=== PATIENT | female | born 1940 | race Caucasian/White ===

== ENCOUNTER → 2017-11-16 14:15 | Outpatient (CLI) | payer MEDICARE, SELFPAY ==
[2017-11-03 15:59] VITALS: BP 158/78; BMI 34.2
--- NOTE | 2017-11-16 14:17 | CT_ITS ---
STUDY: CTA CHEST REASON FOR EXAM: Female, 77 years old. S/P CABG, NON-UNION STERNUM RADIATION DOSAGE (If Supplied By Facility): CTDIvol = ( 14.42 ) mGy, DLP = ( 624.86 ) mGycm TECHNIQUE: The examination was performed with the intravenous administration of 100 ml of Isovue 300 contrast material. Post-processing of the angiographic images was performed, with multiplanar reformation and 3D reconstruction. Individualized dose optimization techniques were used for this CT. COMPARISON: None. FINDINGS: There is no pneumothorax. Diffuse groundglass infiltrates are visualized. This may suggest restrictive airway disease. There is no demonstrated pleural abnormality. There are calcifications of the coronary arteries. Normal mediastinum. Normal hilar regions. Normal pulmonary arteries. There is atherosclerotic calcification of the aortic arch with tortuosity and elongation of the aortic arch and descending thoracic aorta. There are multi-level degenerative changes of the thoracic spine. The gallbladder is surgically absent. Non obstructive 1 to 2 mm left renal parenchymal stones. Multiple median sternotomy wires are noted consistent for cardiac surgery. There are degenerative changes of the shoulders. CT/CTA Chest W/WO Contrast IMPRESSION: Diffuse groundglass infiltrates are visualized. This may suggest restrictive airway disease. No demonstrated pulmonary embolism or arterial dissection. Electronically Signed: Jose Queen MD at 22:53 EST , Service support ,
[2017-11-16 14:36] LABS: CREATININE FINGERSTICK 0.9 mg/dL (0.55-1.02)
== END ==
PROVIDERS: Family Provider Family Medicine; PCP Family Medicine; Visit Provider Internal Medicine Cardiovascular Disease
DX: I25.10 Atherosclerotic heart disease of native coronary artery without angina pectoris (principal); Z95.1 Presence of aortocoronary bypass graft
CPT/HCPCS: 71275; Q9967

== ENCOUNTER → 2017-12-23 12:41 | Outpatient (CLI) | payer MEDICARE, SELFPAY ==
--- NOTE | 2017-12-23 15:14 | PFTCOMP ---
COMPLETE PULMONARY FUNCTION TEST INTERPRETATION Brief HPI: Patient is a 77 year old female, currently under the care of Dr. Melgar, who presents to [facility] for complete pulmonary function tests secondary to diagnosis of abnormal chest CT. Respiratory therapist reports good effort and marginal results. Interpretation: Forced expiration spirometry shows no large airways obstructive ventilatory defect with an FEV1 of 78 % predicted. There is no significant bronchodilator response by ATS criteria. Spirograms are of poor quality and plateau normally. Patient's postbronchodilator exhalation is only 2 seconds, likely underestimating FVC. The respiratory flow volume loop shows a normal pattern. Lung volumes by body plethysmography show a decreased total lung capacity at 3.61 L, 82 % predicted. All other lung volumes are within normal limits. It reportedly did have difficulty with the DLCO maneuver. Diffusion capacity by carbon monoxide is decreased at 35 % predicted. The airway resistance is normal. No previous pulmonary function tests were available for review. Impression: Mild restrictive ventilatory defect with reduction diffusing capacity out of proportion to level of restriction. No previous pulmonary function tests are available for review. Patient did have difficulty with diffusing capacity, so this may be underestimating real diffusion capacity.
--- NOTE | 2017-12-23 15:19 | PFTCOMP_ITS ---
COMPLETE PULMONARY FUNCTION TEST INTERPRETATION Brief HPI: Patient is a 77 year old female, currently under the care of Dr. Melgar , who presents to [facility] for complete pulmonary function tests secondary to diagnosis of abnormal chest CT. Respiratory therapist reports good effort and marginal results. Interpretation: Forced expiration spirometry shows no large airways obstructive ventilatory defect with an FEV1 of 78 % predicted. There is no significant bronchodilator response by ATS criteria. Spirograms are of poor quality and plateau normally. Patient's postbronchodilator exhalation is only 2 seconds, likely underestimating FVC. The respiratory flow volume loop shows a normal pattern. Lung volumes by body plethysmography show a decreased total lung capacity at 3.61 L, 82 % predicted. All other lung volumes are within normal limits. It reportedly did have difficulty with the DLCO maneuver. Diffusion capacity by carbon monoxide is decreased at 35 % predicted. The airway resistance is normal. No previous pulmonary function tests were available for review. Impression: Mild restrictive ventilatory defect with reduction diffusing capacity out of proportion to level of restriction. No previous pulmonary function tests are available for review. Patient did have difficulty with diffusing capacity, so this may be underestimating real diffusion capacity.
== END ==
PROVIDERS: Family Provider Family Medicine; PCP Family Medicine; Visit Provider Internal Medicine Critical Care Medicine
DX: R93.8 Abnormal findings on diagnostic imaging of other specified body structures (principal)
CPT/HCPCS: 94060; 94726; 94729

== ENCOUNTER → 2018-01-05 13:53 | Outpatient (CLI) | payer MEDICARE, SELFPAY ==
[2018-01-05 17:03] LABS: Rheumatoid Factor < 10.0 IU/mL (<15)
[2018-01-09 16:08] LABS: Cytoplasmic Ab (C-ANCA) <1:20 titer (Neg:<1:20)
[2018-01-10 11:07] LABS: CCP IgG Antibodies 16 units (0-19); Perinuclear Ab (P-ANCA) <1:20 titer (Neg:<1:20)
== END ==
PROVIDERS: Family Provider Family Medicine; PCP Family Medicine; Visit Provider Nurse Practitioner Acute Care
DX: J98.4 Other disorders of lung (principal)
CPT/HCPCS: 36415; 86200; 86256; 86431

== ENCOUNTER → 2018-02-24 16:41 | Outpatient (CLI) | payer MEDICARE, SELFPAY ==
--- NOTE | 2018-02-24 16:44 | CT_ITS ---
STUDY: CT CHEST WITH CONTRAST REASON FOR EXAM: Female, 77 years old. ground glass noted on prior RADIATION DOSAGE (If Supplied By Facility): CTDIvol = ( 19.44 ) mGy, DLP = ( 591.80 ) mGycm TECHNIQUE: Transaxial imaging was performed following intravenous administration of 100 ml of Isovue 300 contrast material. Individualized dose optimization techniques were used for this CT. COMPARISON: 11.16.17 FINDINGS: There are degenerative changes of the shoulders. The thyroid is heterogenous. It contains nodules. This should be further evaluated with ultrasound. This can be performed as an outpatient. Scattered bilateral ground glass densities suggest possible air trapping or restrictive airways disease. There is no demonstrated pleural abnormality. There are calcifications of the coronary arteries. There is borderline cardiomegaly. Normal mediastinum. Normal hilar regions. Normal enhanced pulmonary arteries. There is atherosclerotic tortuosity of the aortic arch and descending thoracic aorta. There are multi-level degenerative changes of the thoracic spine. The gallbladder is surgically absent. There is a hiatal hernia. Multiple median sternotomy wires are noted consistent for cardiac surgery. CT/Chest WITH Contrast IMPRESSION: Scattered bilateral ground glass densities suggest possible air trapping or restrictive airways disease. The appearance has slightly improved. Therefore, this may represent resolving pneumonitis. Electronically Signed: Jose Queen MD at 21:10 EDT , Service support ,
[2018-02-24 16:56] LABS: EGFR FINGERSTICK > 60.0000 mL/min (>60)
== END ==
PROVIDERS: Family Provider Family Medicine; PCP Family Medicine; Visit Provider Internal Medicine Critical Care Medicine
DX: R93.8 Abnormal findings on diagnostic imaging of other specified body structures (principal)
CPT/HCPCS: 71260; Q9967

== ENCOUNTER → 2018-04-25 15:03 | Outpatient (CLI) | payer MEDICARE, SELFPAY ==
[2018-04-25 18:05] LABS: Absolute Lymphocyte Count 4.28 X10^3/ul (0.83-4.51); Basophil# 0.05 X10^3/uL; Basophil% 0.5 % (0-1); Eosinophil# 0.09 X10^3/uL; Eosinophils% 0.8 % (0-5); Hematocrit 44.4 % (37-47); Hemoglobin 14.7 g/dl (12.0-15.0); Lymphocyte # 4.28 X10^3/ul (4.0); Lymphocyte % 39.4 % (19-41); Mean Corp Hgb Conc 33.1 g/gl (32-36); Mean Corpuscular Hgb 31.1 pg (27.0-32.0); Mean Corpuscular Volume 93.9 fL (81-99); Mean Platelet Vol. 10.2 fl (6.2-12.0); Monocyte# 0.47 X10^3/uL; Monocyte% 4.3 % (0-10); Neutrophil # 5.96 X10^3/uL (2.7-7.7); Neutrophil % 54.8 % (47-70); Platelet Count 310 K/mm3 (150-450); RBC Distribution Width CV 13.4 % (11.6-14.6); RBC Distribution Width SD 46.3 fl (35.1-43.9); Red Blood Count 4.73 M/mm3 (4.2-5.4); White Blood Count 10.9 K/mm3 (4.4-11.0)
[2018-04-25 18:16] LABS: POSITIVE COUNT NO; POSITIVE DIFFERENTIAL NO; POSITIVE MORPHOLOGY NO
[2018-04-25 18:24] LABS: ALB/GLOB Ratio 0.7 RATIO (0.9-2.4); AST(SGOT) 39 U/L (15-37); Alanine Aminotransfer ALT/SGPT 44 U/L (13-56); Albumin, Serum 3.4 g/dL (3.2-5.0); Alkaline Phosphatase 99 U/L (45-117); Anion Gap 9 (5-15); BUN 14 mg/dL (7-18); BUN/Creat Ratio 13.2 RATIO (10-20); Calcium,Total 9.4 mg/dL (8.5-10.1); Chloride 106 mmol/L (98-107); Creatinine, Serum 1.06 mg/dL (0.55-1.02); EST Glomerular Filtration Rate 54 mL/min (>60); Est Glom Filt Rate - Afr Amer 65 mL/min (>60); Globulin 4.6 g/dL (2.2-4.2); Glucose 164 mg/dL (74-106); Sodium Level 141 mmol/L (136-145)
[2018-05-01 14:07] LABS: HEPATITIS B SURFACE AG Negative (Negative); Hepatitis A AB, Total Negative (Negative); Hepatitis A IgM Antibody Negative (Negative); Hepatitis B Core AB IgM Negative (Negative); Hepatitis B Core Ab Total Negative (Negative); Hepatitis C Ab 0.1 s/co ratio (0.0-0.9); QNTFERON TB Ag Minus Nil Value 0.16 IU/mL (.); QNTFERON TB Ag Value 0.19 IU/mL (.); QNTFERON TB Mitogen Value > 10.00 IU/mL (.); QNTFERON TB Nil Value 0.03 IU/mL (.)
[2018-05-02 09:01] LABS: Hep B Surface Antibodies Non Reactive (.); QNTIFERON TB Gold Negative (Negative)
== END ==
PROVIDERS: Family Provider Family Medicine; PCP Family Medicine; Visit Provider Dermatology Pediatric Dermatology
DX: L40.0 Psoriasis vulgaris (principal); Z79.899 Other long term (current) drug therapy
CPT/HCPCS: 36415; 80053; 85025; 86480; 86704; 86705; 86706; 86708; 86709; 86803; 87340

== ENCOUNTER → 2019-01-09 | Outpatient (CLI) | payer MEDICARE, SELFPAY ==
[2018-12-29 14:28] VITALS: BMI 37.6
--- NOTE | 2019-01-09 18:25 | STRESSREP_ITS ---
Stress Test Report Date: 01-09-19 Procedure: Pharmacologic stress nuclear imaging study Indications: Chest pain; CAD; CABG Consent: Per the patient Procedure: The patient underwent pharmacologic (Regadenoson) evaluation with a peak heart rate of 87 beats per minute (60 %predicted maximal heart rate) and a peak blood pressure of 138/80 mmHg. The baseline ECG demonstrated normal sinus rhythm. The peak pharmacologic ECG demonstrated no obvious ECG changes. There were no cardiac dysrhythmias pretest, during pharmacologic infusion, or recovery. There was no complaint of chest discomfort during pharmacologic infusion or recovery. The examination was discontinued secondary to completion of protocol. Impression: 1. Pharmacologic (Regadenoson) evaluation 2. Peak pharmacologic ECG with no obvious ECG changes. 3. There were no cardiac dysrhythmias pretest, during pharmacologic infusion, or recovery. 4. Nuclear images pending Myocardial perfusion imaging study: Technique: The patient was injected with 14.6 millicuries of technetium 99m Cardiolite and subsequently rest SPECT Cardiolite nuclear imaging was obtained in the horizontal long, vertical long, and short axis views. The patient underwent pharmacologic (Regadenoson) evaluation with a peak heart rate of 87 beats per minute (60 % percent predicted maximal heart rate) and a peak blood pressure of 138/80 mmHg. The patient was injected with 44.7 millicuries of technetium 99m Cardiolite and subsequently stress SPECT Cardiolite nuclear imaging was obtained in the horizontal long, vertical long, and short axis views. A gated Cardiolite study at peak stress was obtained. Interpretation: Rest and stress SPECT Cardiolite nuclear imaging status post realignment, normalization, and attenuation correction demonstrate relative uniform tracer uptake in myocardial perfusion appearing within normal limits. There is end systolic thickening and brightening. The gated Cardiolite study demonstrates myocardial thickening and inward wall motion. The reported LVEF is 51 %. Impression: 1. Rest and stress SPECT Cardiolite nuclear imaging demonstrate relative uniform tracer uptake and myocardial perfusion appearing within normal limits. 2. The gated Cardiolite study reports an LVEF of 51 %. This note was generated with [employer] software. It may contain incorrect words, spelling, and punctuation that were not noted in checking the note before signing.
== END | disposition home or self-care (01) ==
LOC: CVS 06:45
PROVIDERS: Family Provider Family Medicine; PCP Family Medicine; Referring Provider Nurse Practitioner Family; Visit Provider Nurse Practitioner Family
DX: I25.10 Atherosclerotic heart disease of native coronary artery without angina pectoris (principal); R07.9 Chest pain, unspecified; Z95.1 Presence of aortocoronary bypass graft
CPT/HCPCS: 78452; 93017; A9500; A4216; J2785

== ENCOUNTER → 2021-01-06 06:14 | Outpatient (CLI) | payer MEDICARE, SELFPAY ==
[2020-12-29 13:33] VITALS: BMI 36.4
--- NOTE | 2021-01-06 09:17 | STRESSREP ---
Stress Test Report Date: ??2020 Procedure: Pharmacologic stress nuclear imaging study Indications: CAD; CABG Consent: Per the patient Procedure: The patient underwent pharmacologic (Regadenoson 0.4mg ) evaluation with a peak heart rate of 75 beats per minute (52%predicted maximal heart rate) and a peak blood pressure of 126/78 mmHg. The baseline ECG demonstrated sinus bradycardia. The peak pharmacologic ECG demonstrated no obvious ECG changes. There were no cardiac dysrhythmias pretest, during pharmacologic infusion, or recovery. There was no complaint of chest discomfort during pharmacologic infusion or recovery. The examination was discontinued secondary to completion of protocol. Impression: 1. Pharmacologic (Regadenoson) evaluation 2. Peak pharmacologic ECG with with no obvious ECG changes. 3. There were no cardiac dysrhythmias pretest, during pharmacologic infusion, or recovery. 4. Nuclear images pending Myocardial perfusion imaging study: Technique: The patient was injected with 10.0 millicuries of technetium 99m Cardiolite and subsequently rest SPECT Cardiolite nuclear imaging was obtained in the horizontal long, vertical long, and short axis views. The patient underwent pharmacologic (Regadenoson) evaluation with a peak heart rate of 75 beats per minute (52% percent predicted maximal heart rate) and a peak blood pressure of 126/78 mmHg. The patient was injected with 30.0 millicuries of technetium 99m Cardiolite and subsequently stress SPECT Cardiolite nuclear imaging was obtained in the horizontal long, vertical long, and short axis views. A gated Cardiolite study at peak stress was obtained. Interpretation: Rest and stress SPECT Cardiolite nuclear imaging status post realignment, normalization, and attenuation correction demonstrate status post stress a small area of diminished myocardial perfusion/tracer uptake in the distal lateral/lateral apical segments. There are similar type findings on the stress polar map images. There is end systolic thickening and brightening. The gated Cardiolite study demonstrates myocardial thickening and inward wall motion. The reported LVEF is 75%. Impression: 1. Jeferson stress by current nuclear imaging demonstrate myocardial perfusion changes concerning for an area of stress-induced myocardial ischemia in portions of the distal lateral/lateral apical segments. 2. The gated Cardiolite study reports an LVEF of 75%. This note was generated with [employer] water systemsation software. It may contain incorrect words, spelling, and punctuation that were not noted in checking the note before signing.
--- NOTE | 2021-01-13 12:08 | RAD_ITS ---
STUDY: X-RAY CHEST REASON FOR EXAM: Female, 80 years old. Chest pain/pressure TECHNIQUE: PA and lateral views of the chest. COMPARISON: None. FINDINGS: The lungs are clear and expanded. There is no demonstrated pleural abnormality. Sternal cerclage wires and vascular clips are present from a prior sternotomy and coronary artery bypass graft procedure (CABG). Normal mediastinum and omar. Normal visualized pulmonary arteries. There is atherosclerotic calcification of the aortic arch with tortuosity. Normal visualized thoracic spine. Normal visualized ribs, clavicles, and shoulders. There is no demonstrated abnormality of the visualized soft tissue structures of the upper abdomen. RAD/Chest PA and Lateral IMPRESSION: No acute pulmonary process Electronically Signed: Merrick Parada MD at 13:01 EDT , Service support ,
== END ==
PROVIDERS: PCP Family Medicine; Referring Provider Internal Medicine Cardiovascular Disease; Visit Provider Internal Medicine Cardiovascular Disease
DX: I25.10 Atherosclerotic heart disease of native coronary artery without angina pectoris (principal); Z95.1 Presence of aortocoronary bypass graft
CPT/HCPCS: 71046; 78452; 93017; A9500; A4216; J2785

== ENCOUNTER → 2021-01-13 15:11 | Outpatient (CLI) | payer MEDICARE, SELFPAY ==
[2020-12-29 13:33] VITALS: BMI 36.4
[2021-01-13 13:07] LABS: Hematocrit 43.2 % (37-47); Hemoglobin 13.6 g/dL (12.0-15.0); Mean Corp Hgb Conc 31.5 g/dL (32-36); Mean Corpuscular Hgb 28.9 pg (27.0-32.0); Mean Corpuscular Volume 91.9 fL (81-99); Mean Platelet Vol. 10.4 fl (6.2-12.0); Platelet Count 262 K/mm3 (150-450); RBC Distribution Width CV 12.6 % (11.6-14.6); RBC Distribution Width SD 42.6 fl (35.1-43.9); White Blood Count 7.2 K/mm3 (4.4-11.0)
[2021-01-13 13:16] LABS: International Normalized Ratio 3.1; Prothrombin Time (Protime)PT. 31.3 SECONDS (11.7-14.9)
[2021-01-13 13:17] LABS: Partial Thromboplast Time 36.3 Seconds (24.1-36.2)
[2021-01-13 13:35] LABS: Anion Gap 4 (5-15); BUN 12 mg/dL (7-18); Calcium,Total 9.1 mg/dL (8.5-10.1); Chloride 105 mmol/L (98-107); Creatinine, Serum 0.92 mg/dL (0.55-1.02); EST Glomerular Filtration Rate 63 mL/min (>60); Est Glom Filt Rate - Afr Amer 76 mL/min (>60); Glucose 167 mg/dL (74-106); Potassium 3.9 mmol/L (3.5-5.1); Sodium Level 139 mmol/L (136-145)
== END ==
PROVIDERS: PCP Family Medicine; Visit Provider Internal Medicine Cardiovascular Disease
DX: Z01.812 Encounter for preprocedural laboratory examination (principal); I25.10 Atherosclerotic heart disease of native coronary artery without angina pectoris; I48.0 Paroxysmal atrial fibrillation; I10 Essential (primary) hypertension; E78.5 Hyperlipidemia, unspecified; R07.9 Chest pain, unspecified; R94.39 Abnormal result of other cardiovascular function study; Z95.1 Presence of aortocoronary bypass graft
CPT/HCPCS: 36415; 80048; 85027; 85610; 85730

== ENCOUNTER 2021-01-19 18:42 | Observation (INO) | payer MEDICARE, SELFPAY ==
[2021-01-19 07:02] VITALS: BMI 36.3
[2021-01-19 18:43] VITALS: BP 201/55; PULSE 67; RESP 26; TEMP 36.4; O2SAT 94; BMI 37.1
--- NOTE | 2021-01-19 18:55 | ED.VIS.GEN ---
History of Present Illness Chief Complaint: Chest Pain Informant: Patient Narrative: 80-year-old feeling presenting with chest pain. She states it started this morning. It has been intermittent over the course of the day. She states that is left-sided and feels like pressure. Patient has history of CABG, DVT/PE, atrial fibrillation, hypertension, diabetes type 2, obesity, cardiac stents, hyperlipidemia. Patient states that she was just seen by Dr. Hopkins for an outpatient stress test which she states was abnormal. She states he was scheduled for cardiac catheterization tomorrow but forgot to that she was supposed to stop her Coumadin. Patient states she was not doing anything truly exertional today but still experiencing chest pain. - Past Medical History (1) Paroxysmal atrial fibrillation Status: Chronic (2) Essential hypertension Status: Chronic (3) Restrictive lung disease Status: Acute (4) Atherosclerosis of coronary artery of redding heart without angina pectoris Status: Chronic Comment: JAY to LAD, SVG to OM2 and sequetially to diagonal, SVG to PDA 06/01/17 (5) H/O coronary artery bypass surgery Status: Chronic Comment: JAY to LAD, SVG to OM2 and sequetially to diagonal, SVG to PDA 06/01/17 Past Medical History - Allergies and Home Meds Allergies/Adverse Reactions: Allergies insulin isophane (NPH) Allergy (Severe, Verified 01/19/21 18:48) heart burn latex Allergy (Verified 01/19/21 22:14) Unknown only allergic when already sick sitagliptin phosphate [From Januvia] Allergy (Verified 01/19/21 18:48) Unknown insulin degludec [From Xultophy 100/3.6] Adverse Reaction (Mild, Verified 01/19/21 18:48) Nausea liraglutide [From Xultophy 100/3.6] Adverse Reaction (Mild, Verified 01/19/21 18:48) Nausea atorvastatin [From Lipitor] Adverse Reaction (Unknown, Verified 01/19/21 18:48) Unknown codeine Adverse Reaction (Unknown, Verified 01/19/21 18:48) Unknown tizanidine Adverse Reaction (Unknown, Verified 01/19/21 18:48) Unknown Prior records reviewed: Yes Past Medical History: - - Viewed in problem list Surgical History: coronary bypass surgery - x 06/2017., - - Bladder stimulator. Lives: Alone Smoking Status: Never smoker Alcohol: None Drugs: None - Family History Maternal Family History: Family History (Last Reviewed 12/29/20 @ 13:39 by Lisa Shaw) Father CAD (coronary artery disease) Mother CAD (coronary artery disease) Brother CAD (coronary artery disease) Family History: Reports: - - Alcoholism. Paternal Family History: Family History (Last Reviewed 12/29/20 @ 13:39 by Lisa Shaw) Father CAD (coronary artery disease) Mother CAD (coronary artery disease) Brother CAD (coronary artery disease) Family History: Reports: - - Alcoholism. Review of Systems General: Denies: Chills, Fever, Sweats Eyes: Denies: Visual changes - bilaterally, Diplopia ENT: Denies: Rhinorrhea, Sore throat Cardiovascular: Reports: Chest pain Respiratory: Denies: Dyspnea, Cough, Dyspnea on exertion Gastrointestinal: Denies: Abdominal pain, Nausea, Vomiting, Diarrhea, Melena, Hematochezia Genitourinary: Denies: Dysuria, Hematuria, Frequency Musculoskeletal: Denies: Back pain, Extremity Pain Skin: Denies: Rash, Wounds Neurological: Denies: Headache, Weakness, Numbness Psych: Denies: Depression, Anxiety, Suicidal thoughts, Suicidal ideations, -, - Physical Exam Vital Signs/Narrative: Vital Signs Temp Pulse Resp BP Pulse Ox 01/19/21 18:43 97.6 F L 67 26 H 201/55 H 94 General: Obese, No Acute Distress Head: Normocephalic, Atraumatic Eyes: Perrl, EOMI ENT: Moist mucous membranes, No rhinorrhea Cardiovascular: Regular rate, Regular rhythm Respiratory: No distress, CTA bilaterally Abdomen: Soft, Nontender, Nondistended Back: Nontender, Normal Inspection Extremities: Nontender. Negative for: Calf Tenderness Neurological: Alert, Oriented x3, Cranial nerves II-XII grossly intact Psychological: Normal affect, Normal Mood Diagnostic/Tx/Re-eval Clinical Impression(s) from Imaging Studies Chest X-Ray 01/19/21 19:27 IMPRESSION: No acute disease Electronically Signed: Mundo Vargas MD at 20:54 EDT , Service support , Laboratory Data 04/01/19/21 01/19/21 19:03 19:03 19:03 WBC 6.7 RBC 4.52 Hgb 13.4 Hct 40.9 MCV 90.5 MCH 29.6 MCHC 32.8 RDW Std Deviation 41.3 RDW Coeff of Sky 12.6 Plt Count 269 MPV 10.3 Immature Gran % (Auto) 0.300 Neut % (Auto) 53.3 Lymph % (Auto) 38.8 [place] % (Auto) 5.3 Eos % (Auto) 1.5 Baso % (Auto) 0.8 Absolute Neuts (auto) 3.6 Absolute Lymphs (auto) 2.58 Nucleated RBC % 0 PT 26.6 H INR 2.5 Sodium 138 Potassium 4.0 Chloride 104 Carbon Dioxide 32.0 Anion Gap 2 L BUN 16 Creatinine 1.17 H Estim Creat Clear Calc 31.34 Est GFR (MDRD) Af Amer 58 L Est GFR (MDRD) Non-Af 48 L BUN/Creatinine Ratio 13.7 Glucose 368 H Calcium 9.0 Troponin I < 0.015 - Medical Decision Making 80-year-old female presenting with chest pain which has been present for most of the day. She states it is intermittent. EKG performed on arrival shows a sinus rhythm at 71 bpm with nonspecific T wave abnormalities as interpreted by myself. Patient's chest x-ray shows no acute cardiopulmonary process as interpreted by myself and radiology does agree. Lab work is ultimately unremarkable. Troponin is negative. INR is therapeutic I reviewed the patient's medical record and she does have an area of reversible ischemia from recent outpatient stress test. Given this I feel the patient needs to be admitted. Patient was discussed with the hospitalist and was admitted for chest pain. Impression: 1. Chest pain 2. History of reversible ischemia on stress test ED Disposition - Plan for ED Patient: Disposition: [facility]
--- NOTE | 2021-01-19 18:59 | EKG12_ITS ---
Test Reason : CP Blood Pressure : / mmHG Vent. Rate : 071 BPM Atrial Rate : 071 BPM P-R Int : 198 ms QRS Dur : 086 ms QT Int : 418 ms P-R-T Axes : 064 051 075 degrees QTc Int : 454 ms Normal sinus rhythm Nonspecific T wave abnormality Abnormal ECG Confirmed by ELIZABETH ALY, MADAI ([id number]), film editor supervisor EVIN LAMA ([id number]) on 01/21/2021 1:04:40 PM Referred By: LAURA Confirmed By:MADAI JOHNSON MD
[2021-01-19] MEDS: Aspirin 81 MG TAB.CHEW 243 MG PO (19:11)
[2021-01-19 19:20] LABS: Absolute Lymphocyte Count 2.58 X10^3/uL (0.83-4.51); Absolute Neutrophil Count 3.6 X10^3/uL (2.0-7.7); Basophil# 0.05 X10^3/uL; Basophil% 0.8 % (0-1); Eosinophils% 1.5 % (0-5); Hematocrit 40.9 % (37-47); Hemoglobin 13.4 g/dL (12.0-15.0); Lymphocyte # 2.58 X10^3/ul (0.83-4.51); Lymphocyte % 38.8 % (19-41); Mean Corp Hgb Conc 32.8 g/dL (32-36); Mean Corpuscular Hgb 29.6 pg (27.0-32.0); Mean Corpuscular Volume 90.5 fL (81-99); Mean Platelet Vol. 10.3 fl (6.2-12.0); Monocyte# 0.35 X10^3/uL; Monocyte% 5.3 % (0-10); NRBC Flagged by Analyzer 0 % (0-5); Neutrophil # 3.55 X10^3/uL (2.7-7.7); Neutrophil % 53.3 % (47-70); Platelet Count 269 K/mm3 (150-450); RBC Distribution Width CV 12.6 % (11.6-14.6); RBC Distribution Width SD 41.3 fl (35.1-43.9); Red Blood Count 4.52 M/mm3 (4.2-5.4); White Blood Count 6.7 K/mm3 (4.4-11.0)
--- NOTE | 2021-01-19 19:27 | RAD_ITS ---
STUDY: X-RAY CHEST REASON FOR EXAM: Female, 80 years old. chest pain TECHNIQUE: Single frontal view of the chest. COMPARISON: 01/13/2021 FINDINGS: Sternotomy wires and plates. The lungs are clear and expanded. There is no demonstrated pleural abnormality. Normal size heart. Normal mediastinum and omar. Normal visualized pulmonary arteries. Normal visualized aortic arch and descending thoracic aorta. Normal visualized thoracic spine. Normal visualized ribs, clavicles, and shoulders. There is no demonstrated abnormality of the visualized soft tissue structures of the upper abdomen. RAD/Chest 1 View (Portable) IMPRESSION: No acute disease Electronically Signed: Mundo Vargas MD at 20:54 EDT , Service support ,
[2021-01-19 19:34] LABS: Anion Gap 2 (5-15); BUN 16 mg/dL (7-18); BUN/Creat Ratio 13.7 RATIO (10-20); Chloride 104 mmol/L (98-107); Creatinine, Serum 1.17 mg/dL (0.55-1.02); EST Glomerular Filtration Rate 48 mL/min (>60); Est Glom Filt Rate - Afr Amer 58 mL/min (>60); Estimated Creatinine Clearance 31.34 ml/min; Glucose 368 mg/dL (74-106); Sodium Level 138 mmol/L (136-145)
[2021-01-19 20:14] VITALS: BP 178/77; PULSE 69; RESP 17; O2SAT 97
[2021-01-19 21:29] LABS: International Normalized Ratio 2.5; Prothrombin Time (Protime)PT. 26.6 SECONDS (11.7-14.9)
--- NOTE | 2021-01-19 21:32 | PCM.HP.STD ---
Problem List (1) Chest pain Status: Acute (2) Abnormal stress test Status: Acute (3) Essential hypertension Status: Chronic (4) Atherosclerosis of coronary artery of [place] heart without angina pectoris Status: Chronic Qualifiers: Coronary Disease-Associated Artery/Lesion type: [place] artery Qualified Code(s): I25.10 - Atherosclerotic heart disease of [place] coronary artery without angina pectoris Comment: JAY to LAD, SVG to OM2 and sequetially to diagonal, SVG to PDA 06/01/17 (5) H/O coronary artery bypass surgery Status: Chronic Comment: JAY to LAD, SVG to OM2 and sequetially to diagonal, SVG to PDA 06/01/17 (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 Patient was initially scheduled to have a cardiac catheterization due to an abnormal stress test tomorrow however due to continuation of her Coumadin this procedure was delayed until next week Tuesday as an outpatient. This morning patient developed substernal left sided chest pain that was nonexertional that radiated to left shoulder. This pain has since subsided and her initial troponin was negative from the emergency room. INR results are pending at this time she will be admitted to the progressive care unit and cardiac markers will be cycled and Dr. Hopkins will be consulted to decide on timing for her cardiac catheterization. Past Medical History Past Medical History (Chronic Problems): Chronic Problems (Last Updated 01/09/21 @ 13:53 by Lisa Shaw) Paroxysmal atrial fibrillation (Chronic) Essential hypertension (Chronic) Abnormal chest CT (Chronic) Atherosclerosis of coronary artery of [place] heart without angina pectoris (Chronic) JAY to LAD, SVG to OM2 and sequetially to diagonal, SVG to PDA 06/01/17 H/O coronary artery bypass surgery (Chronic ~06/01/17) JAY to LAD, SVG to OM2 and sequetially to diagonal, SVG to PDA 06/01/17 [facility] (current) use of anticoagulants (Chronic) Diabetes mellitus (Chronic) MARIVEL (obstructive sleep apnea) (Chronic) Hyperlipidemia (Chronic) Pulmonary embolism (Chronic) GERD (gastroesophageal reflux disease) (Chronic) Morbid obesity (Chronic) Medical History: Medical History (Last Updated 01/09/21 @ 13:53 by Lisa Shaw) Chest pain (Acute) R07.9 Abnormal stress test (Acute) R94.39 Paroxysmal atrial fibrillation (Chronic) I48.0 Essential hypertension (Chronic) I10 [address] (Chronic) R93.8 Atherosclerosis of coronary artery of [place] heart without angina pectoris (Chronic) I25.10 JAY to LAD, SVG to OM2 and sequetially to diagonal, SVG to PDA 06/01/17 [facility] (current) use of anticoagulants (Chronic) Z79.01 Diabetes mellitus (Chronic) E11.9 MARIVEL (obstructive sleep apnea) (Chronic) G47.33 Hyperlipidemia (Chronic) E78.5 Pulmonary embolism (Chronic) I26.99 GERD (gastroesophageal reflux disease) (Chronic) K21.9 Morbid obesity (Chronic) E66.01 Bradycardia (Acute) R00.1 Acute kidney injury N17.9 Anxiety F41.9 Depression F32.9 Dysphagia R13.10 Osteoarthritis M19.90 Stroke I63.9 Right Frontal Infarction Acute delirium (Resolved) R41.0 Benzodiazepine withdrawal (Inactive) F13.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 Allergies insulin isophane (NPH) Allergy (Severe, Verified 01/19/21 18:48) heart burn latex Allergy (Verified 01/19/21 18:48) Unknown sitagliptin phosphate [From Januvia] Allergy (Verified 01/19/21 18:48) Unknown insulin degludec [From Xultophy 100/3.6] Adverse Reaction (Mild, Verified 01/19/21 18:48) Nausea liraglutide [From Xultophy 100/3.6] Adverse Reaction (Mild, Verified 01/19/21 18:48) Nausea atorvastatin [From Lipitor] Adverse Reaction (Unknown, Verified 01/19/21 18:48) Unknown codeine Adverse Reaction (Unknown, Verified 01/19/21 18:48) Unknown tizanidine Adverse Reaction (Unknown, Verified 01/19/21 18:48) Unknown Home Medications: Ambulatory Orders Medication Instructions Recorded aspirin 81 mg tablet,delayed 81 mg PO QDAY 11/03/17 release lisinopril 10 mg tablet 5 mg PO QDAY tab 11/03/17 warfarin 2 mg tablet 2.5 mg PO DAILY@1700 11/03/17 atorvastatin 40 mg tablet 40 mg PO QDAY #30 tab 03/02/18 metoprolol succinate 50 mg 50 mg PO QDAY tab 06/08/18 tablet,extended release 24 hr levothyroxine 50 mcg tablet 50 mcg PO DAILY 12/29/18 ropinirole 0.5 mg tablet 0.5 mg PO TID tab 12/29/18 vilazodone 40 mg tablet 40 mg PO DAILY 12/29/18 alprazolam 0.5 mg tablet 0.5 mg PO TID tab 11/23/19 insulin degludec 200 unit/mL (3 60 unit SC DAILY 25 Days #7.5 ml 11/23/19 mL) subcutaneous pen trazodone 50 mg tablet 100 mg PO QHS tab 05/22/20 hydrocodone 5 mg-acetaminophen 325 1 tablet PO QHS PRN 12/29/20 mg tablet montelukast 10 mg tablet 10 mg PO DAILY 12/29/20 prednisolone acetate 1 % eye 1 drp OPHTHALMIC 6XD 12/29/20 drops,suspension clopidogrel 75 mg tablet 75 mg PO DAILY #30 tablet 01/13/21 Surgical History: Surgical History (Last Updated 12/29/20 @ 13:50 by Lisa Shaw) H/O coronary artery bypass surgery (Chronic) Onset Date: ~06/01/17 Z95.1 JAY to LAD, SVG to OM2 and sequetially to diagonal, SVG to PDA 06/01/17 History of bilateral cataract extraction Z98.41, Z98.42 History of cholecystectomy Z98.890, Z90.49 History of knee surgery Z98.890 History of total hysterectomy Z98.890, Z90.710 Surgical History: coronary bypass surgery - x , 06/2017., - - Bladder stimulator. 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 Paternal Family History: Family History (Last Reviewed 12/29/20 @ 13:39 by Lisa Shaw) Father CAD (coronary artery disease) Mother CAD (coronary artery disease) Brother CAD (coronary artery disease) History Items: - - Alcoholism. Review of Systems Constitutional: Denies: Chills, Fever, Weight Change HEENT: Denies: Head Aches, Sinus Congestion, Sinus Drainage Cardiovascular: Reports: Chest Pain. Denies: Palpitations Respiratory: Reports: Shortness of breath at rest. Denies: Cough, Sputum production Gastrointestinal: Denies: Abdominal Pain, Nausea, Vomiting Genitourinary: Denies: Dysuria Musculoskeletal: Denies: Joint Pain, Joint Tenderness Skin: Denies: Rash, Wounds Neurological: Denies: Numbness, Tingling, Focal weakness Psychiatric: Reports: Anxiety. Denies: Depression, Homicidal Ideations, Suicidal Ideations Hematologic/ Lymphatic: Denies: Easy Bruising, Easy Bleeding VTE Information - Inpt Only VTE Present on Admission: No VTE Mechan Device Prophylaxis: None VTE Pharm Prophylaxis ordered?: No Patient Problems: Active and Suspected Problems (Last Updated 01/09/21 @ 13:53 by Lisa Shaw) Restrictive lung disease (Acute) - Physical Exam Vitals/I&O's: Vital Signs Temp Pulse Resp BP Pulse Ox 97.6 F L 69 17 178/77 H 97 01/19/21 18:43 01/19/21 20:14 01/19/21 20:14 01/19/21 20:14 01/19/21 20:14 Oxygen Flow Rate (L/min) 93 Oxygen Delivery Method Room Air Weight: 203 lb 4.259 oz Body Mass Index (BMI) 37.1 Finger Stick Blood Glucose 180 General: Alert, Oriented x3, Cooperative HEENT: Atraumatic, Normocephalic Neck: Supple Lungs: Clear to auscultation, Normal air movement Cardiovascular: Regular rate, Normal S1, Normal S2, No murmurs Abdomen: Bowel Sounds Present, Soft, Non Tender, Obese Extremities: No edema Skin: No rashes Musculoskeletal: No Tenderness to Palpation of Joints or Extremities Neurological: Neuro grossly intact Psych/Mental Status: Normal Affect, Appropriate Laboratory Results 01/19/21 19:03: WBC 6.7, RBC 4.52, Hgb 13.4, Hct 40.9, MCV 90.5, MCH 29.6, MCHC 32.8, RDW Std Deviation 41.3, RDW Coeff of Sky 12.6, Plt Count 269, MPV 10.3, Immature Gran % (Auto) 0.300, Neut % (Auto) 53.3, Lymph % (Auto) 38.8, [place] % (Auto) 5.3, Eos % (Auto) 1.5, Baso % (Auto) 0.8, Absolute Neuts (auto) 3.6, Absolute Lymphs (auto) 2.58, Nucleated RBC % 0 01/19/21 19:03: Sodium 138, Potassium 4.0, Chloride 104, Carbon Dioxide 32.0, Anion Gap 2 L, BUN 16, Creatinine 1.17 H, Estim Creat Clear Calc 31.34, Est GFR (MDRD) Af Amer 58 L, Est GFR (MDRD) Non-Af 48 L, BUN/Creatinine Ratio 13.7, Glucose 368 H, Calcium 9.0, Troponin I < 0.015 01/19/21 19:03: PT 26.6 H, INR 2.5 Assessment/Plan All Active Problems (Last Updated 01/09/21 @ 13:53 by Lisa Shaw) Chest pain (Acute) Abnormal stress test (Acute) Restrictive lung disease (Acute) Bradycardia (Acute) Acute delirium (Resolved) Chronic Problems (Last Updated 01/09/21 @ 13:53 by Lisa Shaw) Paroxysmal atrial fibrillation (Chronic) Essential hypertension (Chronic) Abnormal chest CT (Chronic) Atherosclerosis of coronary artery of [place] heart without angina pectoris (Chronic) JAY to LAD, SVG to OM2 and sequetially to diagonal, SVG to PDA 06/01/17 H/O coronary artery bypass surgery (Chronic ~06/01/17) JAY to LAD, SVG to OM2 and sequetially to diagonal, SVG to PDA 06/01/17 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 Chest pain\recent abnormal stress test?admit patient to progressive care unit for observation?make patient n.p.o. at midnight repeat INR in the morning, consult Dr. Hopkins for consideration of cardiac catheterization expediently depending on cardiac enzymes throughout the night. We will order the patient morphine, oxygen, nitroglycerin, aspirin per routine protocol 2. Hypertension?continue home medications, add hydralazine as needed 3. Diabetes?continue home medications recent A1c was 7.3% 4. Obstructive sleep apnea?okay to use home CPAP if patient wishes. 5. Hyperlipidemia?continue statin 6. GERD?continue antacid medication 7. DVT prophylaxis?we will hold due to anticipated procedure for now OBSV E&M: [id number] Initial observation care L2
[2021-01-19 21:36] VITALS: BP 186/74; PULSE 62; RESP 17; TEMP 36.7; O2SAT 96
[2021-01-19 22:00] VITALS: BP 227/80; PULSE 56; RESP 16; TEMP 36.2; O2SAT 100; BMI 36.4; BMI 36.5
[2021-01-19] MEDS: 0.9% Normal Saline 1,000 ML 75 ML IV (22:42)
[2021-01-19 22:55] VITALS: PULSE 65
[2021-01-19 22:55] LABS: Bedside Glucose 173 mg/dL (70-110)
--- NOTE | 2021-01-19 22:59 | EKG12_ITS ---
Test Reason : ADM EKG Blood Pressure : / mmHG Vent. Rate : 057 BPM Atrial Rate : 057 BPM P-R Int : 208 ms QRS Dur : 086 ms QT Int : 460 ms P-R-T Axes : 081 046 102 degrees QTc Int : 447 ms Sinus bradycardia with Premature atrial complexes Nonspecific ST and T wave abnormality Abnormal ECG Confirmed by ELIZABETH ALY, MADAI ([id number]), associate editor SUDHA RODRIGUEZ ([id number]) on 01/22/2021 2:07:27 PM Referred By: GERALDINE Confirmed By:MADAI JOHNSON MD
[2021-01-19] MEDS: Pramipexole Di-HCl 0.25 MG Tablet PO (23:27)
[2021-01-19] MEDS: ALPRAZolam 0.5 MG Tablet PO (23:27)
[2021-01-19] MEDS: Atorvastatin Calcium 40 MG Tablet PO (23:27)
[2021-01-19] MEDS: traZODone 100 MG Tablet PO (23:27)
[2021-01-19 23:31] VITALS: BP 158/66; PULSE 63; RESP 18; TEMP 36.7; O2SAT 97
[2021-01-20] VITALS (21 sets, daily range): BP systolic 95–221; BP diastolic 41–152; PULSE 51–129; RESP 18; TEMP 36.2–37.4; O2SAT 94–98
[2021-01-20 05:34] LABS: Absolute Lymphocyte Count 5.65 X10^3/uL (0.83-4.51); Absolute Neutrophil Count 4.2 X10^3/uL (2.0-7.7); Basophil# 0.06 X10^3/uL; Basophil% 0.6 % (0-1); Eosinophil# 0.16 X10^3/uL; Eosinophils% 1.5 % (0-5); Hematocrit 40.8 % (37-47); Hemoglobin 13.1 g/dL (12.0-15.0); Lymphocyte # 5.65 X10^3/ul (0.83-4.51); Lymphocyte % 53.2 % (19-41); Mean Corp Hgb Conc 32.1 g/dL (32-36); Mean Corpuscular Hgb 29.7 pg (27.0-32.0); Mean Corpuscular Volume 92.5 fL (81-99); Mean Platelet Vol. 9.9 fl (6.2-12.0); Monocyte# 0.52 X10^3/uL; Monocyte% 4.9 % (0-10); NRBC Flagged by Analyzer 0 % (0-5); Neutrophil # 4.22 X10^3/uL (2.7-7.7); Neutrophil % 39.6 % (47-70); POSITIVE DIFFERENTIAL YES; Platelet Count 302 K/mm3 (150-450); RBC Distribution Width CV 12.4 % (11.6-14.6); RBC Distribution Width SD 42.5 fl (35.1-43.9); Red Blood Count 4.41 M/mm3 (4.2-5.4); White Blood Count 10.6 K/mm3 (4.4-11.0)
[2021-01-20 05:42] LABS: International Normalized Ratio 2.7; Prothrombin Time (Protime)PT. 27.9 SECONDS (11.7-14.9)
[2021-01-20 05:55] LABS: Differential Indicated SCAN CRITERIA MET
[2021-01-20] MEDS: ALPRAZolam 0.5 MG Tablet PO ×3 (06:13→21:33)
[2021-01-20] MEDS: Levothyroxine 50 MCG Tablet PO (06:13)
[2021-01-20] MEDS: Pramipexole Di-HCl 0.25 MG Tablet PO ×3 (06:13→21:33)
[2021-01-20 06:40] LABS: Bedside Glucose 73 mg/dL (70-110)
[2021-01-20 07:13] LABS: ALB/GLOB Ratio 0.7 RATIO (0.9-2.4); AST(SGOT) 22 U/L (15-37); Alanine Aminotransfer ALT/SGPT 25 U/L (13-56); Albumin, Serum 2.8 g/dL (3.2-5.0); Alkaline Phosphatase 122 U/L (45-117); Anion Gap 4 (5-15); BUN 13 mg/dL (7-18); BUN/Creat Ratio 15.8 RATIO (10-20); Calcium,Total 8.5 mg/dL (8.5-10.1); Chloride 106 mmol/L (98-107); Creatinine, Serum 0.82 mg/dL (0.55-1.02); EST Glomerular Filtration Rate 72 mL/min (>60); Est Glom Filt Rate - Afr Amer 87 mL/min (>60); Estimated Creatinine Clearance 44.72 ml/min; Globulin 4.1 g/dL (2.2-4.2); Glucose 75 mg/dL (74-106); Magnesium 1.8 mg/dL (1.6-2.6); Phosphorus 2.9 mg/dL (2.5-4.9); Potassium 3.2 mmol/L (3.5-5.1); Protein, Total 6.9 g/dL (6.4-8.2); Sodium Level 140 mmol/L (136-145); Thyroid Stim Hormone (TSH) 4.17 uIU/mL (0.358-3.74)
[2021-01-20] MEDS: Aspirin E.C. 81 MG Tablet PO (08:45)
[2021-01-20] MEDS: Potassium Chloride Oral Tablet 20 MEQ 40 MEQ PO (08:45)
[2021-01-20] MEDS: Montelukast 10 MG Tablet PO (09:24)
[2021-01-20] MEDS: Lisinopril 5 MG Tablet PO (09:25)
[2021-01-20] MEDS: VILAZODONE HYDROCHLORIDE 10 MG TABLET 40 MG PO (09:25)
[2021-01-20] MEDS: Clopidogrel Bisulfate 75 MG Tablet PO (09:25)
[2021-01-20] MEDS: prednisoLONE eye drops (5 mL) 1 DROP OPTH.BTL 1 DRP OPHTHALMIC ×2 (09:26→13:08)
[2021-01-20] MEDS: 0.9% Normal Saline 1,000 ML 75 ML IV (11:29)
--- NOTE | 2021-01-20 11:47 | CHAPLAIN ---
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
[2021-01-20 12:00] LABS: Bedside Glucose 77 mg/dL (70-110)
[2021-01-20 12:44] LABS: International Normalized Ratio 1.5; Prothrombin Time (Protime)PT. 17.8 SECONDS (11.7-14.9)
--- NOTE | 2021-01-20 13:02 | PCM.CONS.C ---
Problem List (1) Chest pain Status: Acute (2) Atherosclerosis of coronary artery of [place] heart without angina pectoris Status: Chronic Qualifiers: Coronary Disease-Associated Artery/Lesion type: [place] artery Qualified Code(s): I25.10 - Atherosclerotic heart disease of [place] coronary artery without angina pectoris Comment: JAY to LAD, SVG to OM2 and sequetially to diagonal, SVG to PDA 06/01/17 (3) H/O coronary artery bypass surgery Status: Chronic Comment: JAY to LAD, SVG to OM2 and sequetially to diagonal, SVG to PDA 06/01/17 (4) Paroxysmal atrial fibrillation Status: Acute (5) Hyperlipidemia Status: Chronic Qualifiers: Hyperlipidemia type: unspecified Qualified Code(s): E78.5 - Hyperlipidemia, unspecified (6) Essential hypertension Status: Chronic (7) Pulmonary embolism Status: Chronic Qualifiers: Pulmonary embolism type: unspecified (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 Reason for Consult Date of Consultation: 01/20/21 History of Present Illness: The patient is a 80 year old white female with a history of coronary artery disease status post CABG in May 2017 with an JAY to LAD, SVG sequential graft to diagonal branch and OM 2, and SVG to PDA, postoperative atrial fibrillation, hypertension, hyperlipidemia, diabetes mellitus, and obstructive sleep apnea without treatment who has been undergoing noninvasive evaluation including a pharmacologic stress nuclear imaging study which raise concerns of myocardial ischemia who was referred for outpatient evaluation with diagnostic cardiac catheterization once her anticoagulation status was adjusted who presented to the [facility] emergency department for recurrent chest discomfort/pressure and is now being referred for continued cardiovascular evaluation including diagnostic cardiac catheterization. She states she had her left-sided chest pressure. Again, as noted in the outpatient setting she is not sure this is related to her crocheting and her musculoskeletal movement or whether it is related to her heart. She denies any acute respiratory issues. There is been no ongoing nausea, emesis, or diaphoresis. She has had no near syncope or syncope. She has been undergoing evaluation from a noninvasive standpoint. Included a pharmacologic stress nuclear imaging study performed on 01-06-2021. The results are noted below. During her hospitalization her troponin I level has been negative. Her INR was elevated. She was evaluated by internal medicine and treated with vitamin K. Her INR level has decreased. [] Past Medical History Allergies/Adverse Reactions: Allergies insulin isophane (NPH) Allergy (Severe, Verified 01/19/21 18:48) heart burn latex Allergy (Verified 01/19/21 22:14) Unknown only allergic when already sick sitagliptin phosphate [From Januvia] Allergy (Verified 01/19/21 18:48) Unknown insulin degludec [From CloudStrategiesltophy 100/3.6] Adverse Reaction (Mild, Verified 01/19/21 18:48) Nausea liraglutide [From Xultophy 100/3.6] Adverse Reaction (Mild, Verified 01/19/21 18:48) Nausea atorvastatin [From Lipitor] Adverse Reaction (Unknown, Verified 01/19/21 18:48) Unknown codeine Adverse Reaction (Unknown, Verified 01/19/21 18:48) Unknown tizanidine Adverse Reaction (Unknown, Verified 01/19/21 18:48) Unknown Home Medications: Ambulatory Orders Medication Instructions Recorded aspirin 81 mg tablet,delayed 81 mg PO QDAY 11/03/17 release lisinopril 10 mg tablet 5 mg PO QDAY tab 11/03/17 warfarin 2 mg tablet 2.5 mg PO DAILY@1700 11/03/17 atorvastatin 40 mg tablet 40 mg PO QDAY #30 tab 03/02/18 metoprolol succinate 50 mg 50 mg PO QDAY tab 06/08/18 tablet,extended release 24 hr levothyroxine 50 mcg tablet 50 mcg PO DAILY 12/29/18 ropinirole 0.5 mg tablet 0.5 mg PO TID tab 12/29/18 vilazodone 40 mg tablet 40 mg PO DAILY 12/29/18 alprazolam 0.5 mg tablet 0.5 mg PO TID tab 11/23/19 insulin degludec 200 unit/mL (3 50 unit SC QHS 25 Days #7.5 ml 11/23/19 mL) subcutaneous pen trazodone 50 mg tablet 100 mg PO QHS tab 05/22/20 hydrocodone 5 mg-acetaminophen 325 1 tablet PO QHS PRN 12/29/20 mg tablet montelukast 10 mg tablet 10 mg PO DAILY 12/29/20 prednisolone acetate 1 % eye 1 drp OPHTHALMIC 6XD 12/29/20 drops,suspension clopidogrel 75 mg tablet 75 mg PO DAILY #30 tablet 01/13/21 Past Medical History (Chronic Problems): Chronic Problems (Last Updated 01/09/21 @ 13:53 by Lisa Shaw) Paroxysmal atrial fibrillation (Chronic) Essential hypertension (Chronic) Abnormal chest CT (Chronic) Atherosclerosis of coronary artery of [place] heart without angina pectoris (Chronic) JAY to LAD, SVG to OM2 and sequetially to diagonal, SVG to PDA 06/01/17 H/O coronary artery bypass surgery (Chronic ~06/01/17) JAY to LAD, SVG to OM2 and sequetially to diagonal, SVG to PDA 06/01/17 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 Paternal Family History: Family History (Last Reviewed 12/29/20 @ 13:39 by Lisa Shaw) Father CAD (coronary artery disease) Mother CAD (coronary artery disease) Brother CAD (coronary artery disease) History Items: - - Alcoholism. Lives: Alone Smoking Status: Former smoker Alcohol: None Drugs: None Review of Systems - Review of Systems General: Denies: Fever, Night Sweats, Fatigue Cardiovascular: Reports: Chest Discomfort, Chest Discomfort at Rest. Denies: Shortness of Breath, Orthopnea, PND, Peripheral Edema, Palpitations, Lightheadedness, Dizziness, Near Syncope, Syncope Respiratory: Denies: Cough, Sputum Production, Hemoptysis Gastrointestinal: Denies: Hematemesis, Hematochezia, Melena Genitourinary: Denies: Dysuria, Hematuria Skin: Denies: Rash Subjectve: This is a 80-year-old white female who who appears to be resting comfortably at the moment in no acute distress. Objective: Vital Signs Temp Pulse Resp BP Pulse Ox 97.8 F 55 L 18 186/58 H 96 01/20/21 09:20 01/20/21 09:20 01/20/21 09:20 01/20/21 09:20 01/20/21 09:28 Oxygen Flow Rate (L/min) 93 Oxygen Delivery Method Room Air Weight: 199 lb 4.766 oz Body Mass Index (BMI) 36.4 Finger Stick Blood Glucose 180 Intake and Output for Last 24 Hours 01/18/21 01/19/21 01/20/21 23:59 23:59 23:59 Intake Total 200 / 200 1059.75 / 1059.75 Balance 200 / 200 1059.75 / 1059.75 General: Awake, Alert, Oriented x 3, Cooperative, No Acute Distress HEENT: Atraumatic, Normocephalic, PERRL, EOMI, Sclera Non Icteric Neck: Supple, Good ROM Lungs: Clear to auscultation Cardiovascular: Regular Rhythm, Normal S1, Normal S2 Vascular: No Carotid Bruits, Normal Femoral Pulses, Normal Radial Pulses Abdomen: Bowel Sounds Present, Soft Extremities: No edema Neurological: No Focal Motor or Sensory Deficit Psych/Mental Status: Appropriate 01/19/21 19:03: WBC 6.7, RBC 4.52, Hgb 13.4, Hct 40.9, MCV 90.5, MCH 29.6, MCHC 32.8, Plt Count 269, MPV 10.3, Immature Gran % (Auto) 0.300, Neut % (Auto) 53.3, Lymph % (Auto) 38.8, Cottle % (Auto) 5.3, Eos % (Auto) 1.5, Baso % (Auto) 0.8, Absolute Neuts (auto) 3.6, Nucleated RBC % 0 01/19/21 19:03: Sodium 138, Potassium 4.0, Chloride 104, Carbon Dioxide 32.0, Anion Gap 2 L, BUN 16, Creatinine 1.17 H, Est GFR (MDRD) Af Amer 58 L, Est GFR (MDRD) Non-Af 48 L, BUN/Creatinine Ratio 13.7, Glucose 368 H, Calcium 9.0, Troponin I < 0.015 01/19/21 19:03: PT 26.6 H, INR 2.5 01/19/21 22:25: Troponin I < 0.015 01/20/21 00:50: Troponin I < 0.015 01/20/21 05:00: WBC 10.6, RBC 4.41, Hgb 13.1, Hct 40.8, MCV 92.5, MCH 29.7, MCHC 32.1, Plt Count 302, MPV 9.9, Immature Gran % (Auto) 0.200, Neut % (Auto) 39.6 L, Lymph % (Auto) 53.2 H, Cottle % (Auto) 4.9, Eos % (Auto) 1.5, Baso % (Auto) 0.6, Absolute Neuts (auto) 4.2, Nucleated RBC % 0 01/20/21 05:00: Sodium 140, Potassium 3.2 L, Chloride 106, Carbon Dioxide 30.0, Anion Gap 4 L, BUN 13, Creatinine 0.82, Est GFR (MDRD) Af Amer 87, Est GFR (MDRD) Non-Af 72, BUN/Creatinine Ratio 15.8, Glucose 75, Calcium 8.5, Phosphorus 2.9, Magnesium 1.8, Total Bilirubin 0.30 01/20/21 05:00: PT 27.9 H, INR 2.7 01/20/21 12:24: PT 17.8 H, INR 1.5 Rhythm: Sinus rhythm EKG: Sinus rhythm; nonspecific ST/T wave abnormality E[facility]ogram from [facility] on May 30, 2017 LV ejection fraction of 65%. Transthoracic echocardiogram: 09-06-17 Left ventricle: LVEF reported 65% Stress Test Report Date: 01-09-19 Procedure: Pharmacologic stress nuclear imaging study Indications: Chest pain; CAD; CABG Consent: Per the patient Procedure: The patient underwent pharmacologic (Regadenoson) evaluation with a peak heart rate of 87 beats per minute (60 %predicted maximal heart rate) and a peak blood pressure of 138/80 mmHg. The baseline ECG demonstrated normal sinus rhythm. The peak pharmacologic ECG demonstrated no obvious ECG changes. There were no cardiac dysrhythmias pretest, during pharmacologic infusion, or recovery. There was no complaint of chest discomfort during pharmacologic infusion or recovery. The examination was discontinued secondary to completion of protocol. Impression: 1. Pharmacologic (Regadenoson) evaluation 2. Peak pharmacologic ECG with no obvious ECG changes. 3. There were no cardiac dysrhythmias pretest, during pharmacologic infusion, or recovery. 4. Nuclear images pending Myocardial perfusion imaging study: Technique: The patient was injected with 14.6 millicuries of technetium 99m Cardiolite and subsequently rest SPECT Cardiolite nuclear imaging was obtained in the horizontal long, vertical long, and short axis views. The patient underwent pharmacologic (Regadenoson) evaluation with a peak heart rate of 87 beats per minute (60 % percent predicted maximal heart rate) and a peak blood pressure of 138/80 mmHg. The patient was injected with 44.7 millicuries of technetium 99m Cardiolite and subsequently stress SPECT Cardiolite nuclear imaging was obtained in the horizontal long, vertical long, and short axis views. A gated Cardiolite study at peak stress was obtained. Interpretation: Rest and stress SPECT Cardiolite nuclear imaging status post realignment, normalization, and attenuation correction demonstrate relative uniform tracer uptake in myocardial perfusion appearing within normal limits. There is end systolic thickening and brightening. The gated Cardiolite study demonstrates myocardial thickening and inward wall motion. The reported LVEF is 51 %. Impression: 1. Rest and stress SPECT Cardiolite nuclear imaging demonstrate relative uniform tracer uptake and myocardial perfusion appearing within normal limits. 2. The gated Cardiolite study reports an LVEF of 51 %. Stress Test Report Date: Procedure: Pharmacologic stress nuclear imaging study Indications: CAD; CABG Consent: Per the patient Procedure: The patient underwent pharmacologic (Regadenoson 0.4mg ) evaluation with a peak heart rate of 75 beats per minute (52%predicted maximal heart rate) and a peak blood pressure of 126/78 mmHg. The baseline ECG demonstrated sinus bradycardia. The peak pharmacologic ECG demonstrated no obvious ECG changes. There were no cardiac dysrhythmias pretest, during pharmacologic infusion, or recovery. There was no complaint of chest discomfort during pharmacologic infusion or recovery. The examination was discontinued secondary to completion of protocol. Impression: 1. Pharmacologic (Regadenoson) evaluation 2. Peak pharmacologic ECG with with no obvious ECG changes. 3. There were no cardiac dysrhythmias pretest, during pharmacologic infusion, or recovery. 4. Nuclear images pending Myocardial perfusion imaging study: Technique: The patient was injected with 10.0 millicuries of technetium 99m Cardiolite and subsequently rest SPECT Cardiolite nuclear imaging was obtained in the horizontal long, vertical long, and short axis views. The patient underwent pharmacologic (Regadenoson) evaluation with a peak heart rate of 75 beats per minute (52% percent predicted maximal heart rate) and a peak blood pressure of 126/78 mmHg. The patient was injected with 30.0 millicuries of technetium 99m Cardiolite and subsequently stress SPECT Cardiolite nuclear imaging was obtained in the horizontal long, vertical long, and short axis views. A gated Cardiolite study at peak stress was obtained. Interpretation: Rest and stress SPECT Cardiolite nuclear imaging status post realignment, normalization, and attenuation correction demonstrate status post stress a small area of diminished myocardial perfusion/tracer uptake in the distal lateral/lateral apical segments. There are similar type findings on the stress polar map images. There is end systolic thickening and brightening. The gated Cardiolite study demonstrates myocardial thickening and inward wall motion. The reported LVEF is 75%. Impression: 1. Jeferson stress by current nuclear imaging demonstrate myocardial perfusion changes concerning for an area of stress-induced myocardial ischemia in portions of the distal lateral/lateral apical segments. 2. The gated Cardiolite study reports an LVEF of 75%. Cardiac Cath: Heart catheterization on May 27, 2017 LV ejection fraction of 70?75%, LAD with proximal 80% stenosis and 90% mid stenosis, first diagonal with ostial 90% stenosis, LCx with mid 80% stenosis, first OM with 50% stenosis, and mid RCA with 80% stenosis. She underwent bypass surgery for this. CT Surgery: May, JAY to LAD, SVG sequential graft to diagonal branch and OM 2, and SVG to PDA CXR: Preliminary evaluation: Post open heart surgery changes: No acute cardiopulmonary disease process appreciated: Please see official report Assessment/Plan 1. Chest pain The patient presents back with chest pain concerning for angina pectoris. She has a cardiovascular disease history. She has undergone diagnostic cardiac catheterization in the past. This led to CABG. She now has a pharmacologic stress nuclear imaging study considered abnormal. She is now referred for further evaluation with repeat diagnostic cardiac catheterization. The procedure and risk of been discussed with her. She was agreeable to this approach. 2. CAD status post CABG Again she has a history of underlying CAD. This led to CABG. She has been on medical management. She now has concerning symptoms for angina pectoris. She has an abnormal pharmacologic stress nuclear imaging study. She will be considered for further evaluation with diagnostic cardiac catheterization. 3. Paroxysmal atrial fibrillation At the moment she remains in sinus rhythm. She will continue medical management with adjustment as needed. 4. Hyperlipidemia She will continue risk factor evaluation and care. 5. Hypertension She will continue medical management with adjustment as needed. 6. Pulmonary embolism She has a history of PE. She has been on anticoagulant therapy. Comment: The patient's case has been discussed patient and Dr. Maria. This note was generated using a voice recognition system and there may be incorrect words, spelling or punctuation that were not noted when reviewing the office note prior to saving. Procedure Criteria Procedure Type: Elective COVID Risk Discussion: The surgeon/proceduralist and patient have discussed in detail the risk of exposure to and/or potential harm posed by the COVID-19 virus with having a surgery/procedure at this time versus the risk of delaying the surgery/procedure. It is not possible to know either the risk of delaying the surgery or procedure or chance of getting an infection with perfect accuracy, but a joint decision was made between the patient and the surgeon/proceduralist to proceed at this time with the scheduled surgery/procedure as indicated on the consent form.
--- NOTE | 2021-01-20 13:07 | CASEMGMT ---
According to the [facility] website, the following are in-network tertiary facilities: [facility], [place], [facility], [facility], and . Zachary VALLES CM
[2021-01-20] MEDS: Dextrose 50%-Water 25 GM/50 ML DISP.SYRIN IV (13:11)
[2021-01-20] MEDS: 0.9% Saline Lock 10 ML Syringe IV ×4 (13:11→19:01)
[2021-01-20 13:21] LABS: Bedside Glucose 74 mg/dL (70-110)
--- NOTE | 2021-01-20 13:30 | NURSING ---
This RN called report to HAI Carrillo in senior laboratory technician.
--- NOTE | 2021-01-20 16:13 | CL.D_ITS ---
Patient Name: FRANK GARCÍA Study Date: 01/20/2021 Performing: Markel Hopkins MD Ht: 62 inches 157 cm : 1940 Wt: 198.7 lbs 90 kg Age: 80 Gender: female BSA: 1.9 PROCEDURE(S) PERFORMED FC59-GZI/COR/LV/CABG DC11-AO ROOT ANGIO WITH HEART CATH CLINICAL PROFILE AND INDICATIONS Indications: Worsening Angina, Suspected CAD Heart Failure: None Stress/Imaging Date: 01/06/2021 Angina Classification Anginal Classification w/in 2 Weeks: CCS III CAD Presentations: Unstable angina. CONCLUSIONS Elevated Left Ventricular End Diastolic Pressure Normal LV size, wall motion,and systolic function LVEF: by LV gram 65 % [place] Multivessel CAD JAY to LAD: patent SVG to DX: patent with sequential portion to the OM being absent SVG to RPDA: occluded RECOMMENDATIONS Risk factor modification Medical therapy DESCRIPTION OF PROCEDURE The patient arrived to the procedure lab. The risks and benefits of the procedure as well as a full d escription of our services here and current unavailability of surgical backup were fully explained to the patient and/or their significant other prior to the catheterization. The Timeout was completed, verifying the correct patient and procedure. The patient's procedural site was prepped and draped in the usual fashion. Local anesthetic was given subcutaneously to right groin region with Lidocaine 2%. Using a modified Seldinger technique, arterial access was obtained via the right femoral artery, a 4 Fr sheath was inserted Left Coronary Artery selective angiography was performed in multiple views us ing a 4 Fr. JL5 catheter. Right Coronary Artery selective angiography was then performed in multiple views using a 4 Fr. 3DRC catheter. Saphenous Vein graft to the OM 2 and Diag selective angiography wa s performed in multiple views using a 4 Fr. JR4 catheter. Left internal mammary artery graft to the LAD selective angiography was performed in multiple views using a 4 Fr. JR4 catheter. Le ft internal mammary artery graft to the LAD selective angiography was performed in multiple views usi ng a 4 Fr. IM catheter. Saphenous Vein graft to the RPDA selective angiography was performed in multi ple views using a 4 Fr. RCB catheter. Left Ventriculography was performed in TOTH projection using a 4 Fr. Pigtail catheter. LV to AO pullback pressures were then recorded. Ascending (root) aorta selecti ve angiography was then performed in single view. Ascending (root) aorta selective angiography was th en performed in single view.The arterial sheath was pulled and manual compression applied until hemos tasis is achieved. CORONARY ANGIOGRAPHY DOMINANCE: Right Dominant LEFT HEART ASSESSMENT Left Ventricular Ejection Fraction: by LV Gram 65 % Normal LV wall motion Elevated Left Ventricular End Diastolic Pressure LVEDP: 27 mmHg LEFT MAIN: Moderate calcification, Mild luminal irregularities LEFT ANTERIOR DESCENDING ARTERY: PROX LAD: Moderate calcification, 50 - 75 % Stenosis MID LAD: fills from antegrade flow and JAY graft flow with no angiographically significant appearing disease distal to the graft attachment DIAGONAL 1: Proximal - is occluded with the remainder of the vessel filling from SVG graft flow with no angiographically significant appearing disease distal to the graft attachment CIRCUMFLEX ARTERY: PROX CIRC: Moderate calcification DISTAL CIRC: small caliber vessel: 50 - 75 % Stenosis OM 1: Proximal - Mild luminal irregularities RIGHT CORONARY ARTERY: Mild luminal irregularities PROX RCA: Mild calcification MID RCA: 25 % Stenosis GRAFTS: JAY graft to the Mid LAD is patent Saphenous Vein graft to the 1st Diagonal is patent with the sequential portion to the OM being absent Saphenous Vein graft to the RPDA is totally occluded AORTIC ROOT: Angiographically normal COMPLICATIONS No Complications PROCEDURE MEDICATIONS Versed 1 mg IV Fentanyl 50 mcg IV Fentanyl 50 mcg IV Versed 1 mg IV Fentanyl 50 mcg IV Oxygen: 2 L/min via nasal cannula Nitro Tab 0.40 mg PO 01/20/2021 15:05:20 Nitro Tab 0.4 mg PO 01/20/2021 15:12:24 SUMMARY OF HEMODYNAMIC DATA Time AIR REST ECG 13:44:11 AO 202/89 (133) SA 14:11:39 AO 153/89 (122) 14:17:20 LV 228/-3, 32 14:53:14 LV 219/-4, 27 14:53:20 LV 225/15, 37 14:54:53 LVp 233/28, 42 14:55:02 AOp 231/93 (150) 14:55:07 Signed By Markel Hopkins MD On 01/20/2021 4:12:20 PM Markel Hopkins MD
--- NOTE | 2021-01-20 16:28 | PN_ITS ---
Patient Problems: Active and Suspected Problems (Last Updated 01/20/21 @ 16:23 by Lisa Shaw) Chest pain (Acute) Abnormal stress test (Acute) Restrictive lung disease (Acute) Subjective: Vanessa today, I talked with cardiology about her care. She underwent a heart catheterization today which showed no evidence of occlusive coronary disease. Patient had some confusion after the catheterization probably related to medication, she will remain in the hospital and be reevaluated tomorrow. - Physical Exam Vitals/I&O's: Vital Signs Temp Pulse Resp BP Pulse Ox 97.8 F 100 18 95/41 L 98 01/20/21 16:00 01/20/21 16:00 01/20/21 16:00 01/20/21 16:00 01/20/21 16:00 Oxygen Flow Rate (L/min) 2 Oxygen Delivery Method Nasal Cannula Weight: 90.4 kg Body Mass Index (BMI) 36.4 Finger Stick Blood Glucose 180 Intake and Output for Last 24 Hours 01/18/21 01/19/21 01/20/21 23:59 23:59 23:59 Intake Total 200 / 200 1059.75 / 1059.75 Balance 200 / 200 1059.75 / 1059.75 General: Alert, Oriented x3, Cooperative, No apparent distress, Well developed HEENT: Atraumatic, PERRLA, EOMI, Normocephalic Oral: Moist Mucosa Neck: Supple, No JVD, Trachea Midline, Thyroid Normal Size and Texture Lungs: Clear to auscultation, Normal air movement, No rhonchi, No wheeze Cardiovascular: Regular rate, Regular Rhythm, Normal S1, Normal S2, No murmurs, PMI Normal Abdomen: Bowel Sounds Present, Soft, Non Tender, Non-Distended Extremities: No clubbing, No cyanosis, No edema, Capillary Refill Less than 3 Seconds Skin: No rashes, No breakdown Musculoskeletal: No Tenderness to Palpation of Joints or Extremities Neurological: Cranial nerves II-XII grossly intact, Neuro grossly intact, Sensory exam intact to light touch and pain, Coordination normal Psych/Mental Status: Normal Affect, Appropriate, Alert and oriented to time, place, person, mood and affect Laboratory Results 01/19/21 19:03: WBC 6.7, RBC 4.52, Hgb 13.4, Hct 40.9, MCV 90.5, MCH 29.6, MCHC 32.8, RDW Std Deviation 41.3, RDW Coeff of Sky 12.6, Plt Count 269, MPV 10.3, Immature Gran % (Auto) 0.300, Neut % (Auto) 53.3, Lymph % (Auto) 38.8, [place] % (Auto) 5.3, Eos % (Auto) 1.5, Baso % (Auto) 0.8, Absolute Neuts (auto) 3.6, Absolute Lymphs (auto) 2.58, Nucleated RBC % 0 01/19/21 19:03: Sodium 138, Potassium 4.0, Chloride 104, Carbon Dioxide 32.0, Anion Gap 2 L, BUN 16, Creatinine 1.17 H, Estim Creat Clear Calc 31.34, Est GFR (MDRD) Af Amer 58 L, Est GFR (MDRD) Non-Af 48 L, BUN/Creatinine Ratio 13.7, Glucose 368 H, Calcium 9.0, Troponin I < 0.015 01/19/21 19:03: PT 26.6 H, INR 2.5 01/19/21 22:25: Troponin I < 0.015 01/19/21 22:40: POC Glucose 173 H 01/20/21 00:50: Troponin I < 0.015 01/20/21 05:00: WBC 10.6, RBC 4.41, Hgb 13.1, Hct 40.8, MCV 92.5, MCH 29.7, MCHC 32.1, RDW Std Deviation 42.5, RDW Coeff of Sky 12.4, Plt Count 302, MPV 9.9, Immature Gran % (Auto) 0.200, Neut % (Auto) 39.6 L, Lymph % (Auto) 53.2 H, [place] % (Auto) 4.9, Eos % (Auto) 1.5, Baso % (Auto) 0.6, Absolute Neuts (auto) 4.2, Absolute Lymphs (auto) 5.65 H, Nucleated RBC % 0 01/20/21 05:00: Sodium 140, Potassium 3.2 L, Chloride 106, Carbon Dioxide 30.0, Anion Gap 4 L, BUN 13, Creatinine 0.82, Estim Creat Clear Calc 44.72, Est GFR (MDRD) Af Amer 87, Est GFR (MDRD) Non-Af 72, BUN/Creatinine Ratio 15.8, Glucose 75, Calcium 8.5, Phosphorus 2.9, Magnesium 1.8, Total Bilirubin 0.30, AST 22, ALT 25, Alkaline Phosphatase 122 H, Total Protein 6.9, Albumin 2.8 L, Globulin 4.1, Albumin/Globulin Ratio 0.7 L, TSH 4.17 H 01/20/21 05:00: PT 27.9 H, INR 2.7 01/20/21 06:12: POC Glucose 73 01/20/21 11:28: POC Glucose 77 01/20/21 12:24: PT 17.8 H, INR 1.5 01/20/21 13:10: POC Glucose 74 Current Medications Alprazolam (Alprazolam 0.5 Mg Tablet) 0.5 mg PO TID [facility] Last Admin: 01/20/21 13:07 Dose: 0.5 mg Documented by: Aspirin (Aspirin E.C. 81 Mg Tablet) 81 mg PO DAILYCM [facility] Last Admin: 01/20/21 08:45 Dose: 81 mg Documented by: Atorvastatin Calcium (Atorvastatin Calcium 40 Mg Tablet) 40 mg PO QHS [facility] Last Admin: 01/19/21 23:27 Dose: 40 mg Documented by: Clopidogrel Bisulfate (Clopidogrel Bisulfate 75 Mg Tablet) 75 mg PO DAILY [facility] Last Admin: 01/20/21 09:25 Dose: 75 mg Documented by: Dextrose (Dextrose 50%-Water 25 Gm/50 Ml Disp.Syrin) 0 gm IV X1 PRN; Protocol PRN Reason: Hypoglycemia Last Admin: 01/20/21 13:11 Dose: 12.5 gm Documented by: Glucagon (Glucagon 1 Mg/Ml Syringe) 1 mg IM .X1 PRN PRN Reason: Hypoglycemia Heparin Sodium (Beef Lung) (Heparin Lock 500 Unit/5 Ml In 10 Ml Syringe) 500 unit IV UD PRN PRN Reason: HEPARIN FLUSH Sodium Chloride () 1,000 mls @ 75 mls/hr IV .[id number] [facility] Last Admin: 01/20/21 11:29 Dose: 75 mls/hr Documented by: Sodium Chloride () 1,000 mls @ 0 mls/hr IV .Q0M [facility] Insulin Glargine (Insulin Glargine 100 Units/Ml Pen) 50 units SC QHS [facility] Last Admin: 01/19/21 23:26 Dose: 50 units Documented by: Labetalol HCl (Labetalol (Prefilled) 20 Mg/4 Ml) 5 mg IV X1 PRN PRN Reason: SBP > 160 prior to sheath pull Stop: 01/22/21 15:30 Levothyroxine Sodium (Levothyroxine 50 Mcg Tablet) 50 mcg PO DAILY@0600 [facility] Last Admin: 01/20/21 06:13 Dose: 50 mcg Documented by: Lisinopril (Lisinopril 5 Mg Tablet) 5 mg PO DAILY [facility] Last Admin: 01/20/21 09:25 Dose: 5 mg Documented by: Metoprolol Succinate (Metoprolol(Xl)Succ 50 Mg Tablet) 50 mg PO DAILY [facility] Last Admin: 01/20/21 11:48 Dose: Not Given Documented by: Montelukast Sodium (Montelukast 10 Mg Tablet) 10 mg PO DAILY [facility] Last Admin: 01/20/21 09:24 Dose: 10 mg Documented by: Morphine Sulfate (Morphine 2 Mg/Ml Syringe) 2 mg IV Q3H PRN PRN PRN Reason: Pain Score 6-10 Nitroglycerin (Nitroglycerin (Inpatient Use) 0.4 Mg Tab.Subl) 0.4 mg SL Q5M PRN PRN Reason: CARDIAC/CHEST PAIN Pramipexole Dihydrochloride (Pramipexole Di-Hcl 0.25 Mg Tablet) 0.25 mg PO TID [facility] Last Admin: 01/20/21 13:08 Dose: 0.25 mg Documented by: Prednisolone Acetate (Prednisolone Eye Drops (5 Ml) 1 Drop Opth.Btl) 1 drp OPHTHALMIC Q4H [facility] Last Admin: 01/20/21 13:08 Dose: 1 drp Documented by: Sodium Chloride (0.9% Saline Lock 10 Ml Syringe) 10 - 40 ml IV UD PRN PRN Reason: SALINE FLUSH Last Admin: 01/20/21 13:11 Dose: 10 ml Documented by: Trazodone HCl (Trazodone 100 Mg Tablet) 100 mg PO QHS [facility] Last Admin: 01/19/21 23:27 Dose: 100 mg Documented by: Vilazodone HCl (Vilazodone Hydrochloride 10 Mg Tablet) 40 mg PO DAILY [facility] Last Admin: 01/20/21 09:25 Dose: 40 mg Documented by: Medical Necessity - Tobacco Use Smoking Status: Former smoker Assessment/Plan All Active Problems (Last Updated 01/20/21 @ 16:23 by Lisa Shaw) Chest pain (Acute) Abnormal stress test (Acute) Restrictive lung disease (Acute) Bradycardia (Acute) Acute delirium (Resolved) #1 musculoskeletal chest pain-again patient will be observed overnight, she may be stable for discharge tomorrow. #2 atherosclerotic heart disease #3 encephalopathy probably secondary to medication reaction, patient will be observed #4 paroxysmal atrial fibrillation-patient is currently off Coumadin #5 type 2 diabetes #6 obstructive sleep apnea #7 hyperlipidemia #8 essential hypertension OBSV E&M: 27457 Subsequent observation care L3
[2021-01-20 16:55] LABS: Bedside Glucose 98 mg/dL (70-110)
[2021-01-20] MEDS: Metoprolol Tartrate 5 MG/5 ML Vial IV ×2 (18:15→23:03)
[2021-01-20] MEDS: Haloperidol Lactate 5 MG/ML Vial 1 MG IV (18:36)
[2021-01-20] MEDS: Haloperidol Lactate 5 MG/ML Vial IV (19:00)
[2021-01-20] MEDS: traZODone 100 MG Tablet PO (21:32)
[2021-01-20] MEDS: Acetaminophen 325 MG Tablet 650 MG PO (21:33)
[2021-01-20] MEDS: Atorvastatin Calcium 40 MG Tablet PO (21:33)
[2021-01-20 22:15] LABS: Bedside Glucose 149 mg/dL (70-110)
[2021-01-21] VITALS (15 sets, daily range): BP systolic 125–179; BP diastolic 61–95; PULSE 64–102; RESP 16–18; TEMP 36.2–37.5; O2SAT 94–98
[2021-01-21] MEDS: 0.9% Normal Saline 1,000 ML 75 ML IV ×2 (05:36→18:03)
[2021-01-21] MEDS: Levothyroxine 50 MCG Tablet PO (05:37)
[2021-01-21] MEDS: Metoprolol Tartrate 5 MG/5 ML Vial IV ×3 (05:37→17:54)
[2021-01-21] MEDS: Pramipexole Di-HCl 0.25 MG Tablet PO ×2 (05:37→20:56)
[2021-01-21] MEDS: Acetaminophen 325 MG Tablet 650 MG PO ×3 (05:37→20:59)
[2021-01-21] MEDS: ALPRAZolam 0.5 MG Tablet PO ×2 (05:39→16:57)
[2021-01-21] MEDS: Dextrose 50%-Water 25 GM/50 ML DISP.SYRIN IV ×2 (07:25→17:54)
[2021-01-21 07:47] LABS: Absolute Lymphocyte Count 1.67 X10^3/uL (0.83-4.51); Absolute Neutrophil Count 9.2 X10^3/uL (2.0-7.7); Basophil# 0.05 X10^3/uL; Basophil% 0.4 % (0-1); Hematocrit 46.8 % (37-47); Hemoglobin 14.9 g/dL (12.0-15.0); Lymphocyte # 1.67 X10^3/ul (0.83-4.51); Lymphocyte % 14.2 % (19-41); Mean Corp Hgb Conc 31.8 g/dL (32-36); Mean Corpuscular Hgb 29.1 pg (27.0-32.0); Mean Corpuscular Volume 91.4 fL (81-99); Mean Platelet Vol. 10.1 fl (6.2-12.0); Monocyte# 0.78 X10^3/uL; Monocyte% 6.6 % (0-10); NRBC Flagged by Analyzer 0 % (0-5); Neutrophil # 9.23 X10^3/uL (2.7-7.7); Neutrophil % 78.4 % (47-70); Platelet Count 285 K/mm3 (150-450); RBC Distribution Width SD 43.4 fl (35.1-43.9); Red Blood Count 5.12 M/mm3 (4.2-5.4); White Blood Count 11.8 K/mm3 (4.4-11.0)
[2021-01-21 08:00] LABS: Bedside Glucose 34 mg/dL (70-110)
[2021-01-21 08:00] LABS: Bedside Glucose 135 mg/dL (70-110)
[2021-01-21 08:03] LABS: Anion Gap 9 (5-15); BUN 9 mg/dL (7-18); BUN/Creat Ratio 9.2 RATIO (10-20); Calcium,Total 9.2 mg/dL (8.5-10.1); Chloride 105 mmol/L (98-107); Creatinine, Serum 0.98 mg/dL (0.55-1.02); EST Glomerular Filtration Rate 58 mL/min (>60); Est Glom Filt Rate - Afr Amer 70 mL/min (>60); Estimated Creatinine Clearance 37.42 ml/min; Glucose 44 mg/dL (74-106); Potassium 3.6 mmol/L (3.5-5.1); Sodium Level 140 mmol/L (136-145)
[2021-01-21] MEDS: 0.9% Saline Lock 10 ML Syringe IV ×4 (09:30→18:09)
--- NOTE | 2021-01-21 10:10 | CASEMGMT ---
This [facility] CM to room with FREEMAN form, explanation done-pt/daughter voice understanding, and pt requests daughter sign form for her at this time. Original to chart and copy to pt. Daughter states they have a copy of the [facility] IP vs OBS booklet. Pt requests that SCD's be re-applied at this time and Sena VALLES aware, voices understanding. Pt/daughter voice no further questions/concerns/needs. Zachary VALLES CM
[2021-01-21 11:30] LABS: Bedside Glucose 174 mg/dL (70-110)
--- NOTE | 2021-01-21 15:31 | PCM.PN.CARD ---
Subjectve: The patient was evaluated earlier this day. She was sleeping. She was arousable. She did appear to answer some questions correctly. She did not voice any new acute complaints. Objective: Vital Signs Temp Pulse Resp BP Pulse Ox 98.7 F 64 18 150/68 H 96 01/21/21 09:27 01/21/21 15:00 01/21/21 09:27 01/21/21 11:08 01/21/21 09:27 Oxygen Flow Rate (L/min) 2 Oxygen Delivery Method Room Air Weight: 199 lb 4.766 oz Body Mass Index (BMI) 36.4 Finger Stick Blood Glucose 180 Intake and Output for Last 24 Hours 01/19/21 01/20/21 01/21/21 23:59 23:59 23:59 Intake Total 200 / 200 1059.75 / 1179.75 1180 / 1180 Output Total 400 / 1300 1825 / 1825 Balance 200 / 200 659.75 / -120.25 -645 / -645 General: No Acute Distress HEENT: Atraumatic, Normocephalic Neck: Supple, Good ROM Lungs: Clear to auscultation Cardiovascular: Regular Rhythm, Normal S1, Normal S2 Abdomen: Bowel Sounds Present, Soft Extremities: No edema 01/21/21 06:40: WBC 11.8 H, RBC 5.12, Hgb 14.9, Hct 46.8, MCV 91.4, MCH 29.1, MCHC 31.8 L, Plt Count 285, MPV 10.1, Immature Gran % (Auto) 0.400, Neut % (Auto) 78.4 H, Lymph % (Auto) 14.2 L, [place] % (Auto) 6.6, Eos % (Auto) 0.0, Baso % (Auto) 0.4, Absolute Neuts (auto) 9.2 H, Nucleated RBC % 0 01/21/21 06:40: Sodium 140, Potassium 3.6, Chloride 105, Carbon Dioxide 26.0, Anion Gap 9, BUN 9, Creatinine 0.98, Est GFR (MDRD) Af Amer 70, Est GFR (MDRD) Non-Af 58 L, BUN/Creatinine Ratio 9.2 L, Glucose 44 L*, Calcium 9.2 Rhythm: Sinus rhythm Medical Necessity - Tobacco Use Smoking Status: Former smoker Assessment/Plan 1. CAD status post CABG The patient has undergone evaluation with diagnostic cardiac catheterization. The report is as noted. She did not require additional PCI. She will continue risk factor modification medical therapy as deemed appropriate. 2. Paroxysmal atrial fibrillation At the moment she remains in sinus rhythm. She will continue medical management with adjustment as needed. Once the patient is deemed stable then she will resume anticoagulant therapy. 3. Hyperlipidemia She will continue risk factor evaluation and care. 4. Hypertension She will continue medical management with adjustment as needed. 5. Pulmonary embolism She has a history of PE. She has been on anticoagulant therapy. Again once she is deemed stable she can resume her oral anticoagulant therapy. 6. Mental status changes Following the patient's cardiac catheterization the patient did appear to have mental status changes with confusion. Her son, a physician, was with her. He states she has gone through these type of events before following procedures requiring medications for sedation, etc. He states in the past her confusion episodes have lasted at sometimes days. She did require Haldol therapy yesterday evening. She was reported as being awake most of the night. She was sleeping this morning but was arousable and did answer some questions appropriately. Hopefully as her medications that she received for her cardiac catheterization such as Versed/fentanyl dissipate from her system that her mental status will clear and she will return to her baseline. Comment: The patient's case has been discussed patient and Dr. Maria. This note was generated using a voice recognition system and there may be incorrect words, spelling or punctuation that were not noted when reviewing the office note prior to saving.
[2021-01-21] MEDS: Morphine 2 MG/ML Syringe IV (18:09)
[2021-01-21 18:20] LABS: Bedside Glucose 157 mg/dL (70-110)
[2021-01-21] MEDS: Dext 5%-0.45% NS 1,000 ML 100 ML IV (18:30)
[2021-01-21 18:36] LABS: Glucose 185 mg/dL (74-106)
--- NOTE | 2021-01-21 18:45 | PCM.PROGNOTE ---
Patient Problems: Active and Suspected Problems (Last Updated 01/20/21 @ 16:23 by Lisa Shaw) Chest pain (Acute) Abnormal stress test (Acute) Restrictive lung disease (Acute) Subjective: Patient was seen and examined today, she has been sleeping most of the day, when I talked with her late this morning, she appeared appropriate, she did not appear anxious. Patient's blood sugars have been running low today, I decided to stop her long-acting insulin and give her sliding scale insulin only, I changed her IV fluids to D5 half-normal this afternoon due to decreased blood sugars. Objective: General: Patient is somnolent but awakens to verbal stimulation HEENT: Atraumatic, PERRLA, EOMI, Normocephalic Oral: Moist Mucosa Neck: Supple, No JVD, Trachea Midline, Thyroid Normal Size and Texture Lungs: Clear to auscultation, Normal air movement, No rhonchi, No wheeze Cardiovascular: Regular rate, Regular Rhythm, Normal S1, Normal S2, No murmurs, PMI Normal Abdomen: Bowel Sounds Present, Soft, Non Tender, Non-Distended Extremities: No clubbing, No cyanosis, No edema, Capillary Refill Less than 3 Seconds Skin: No rashes, No breakdown Musculoskeletal: No Tenderness to Palpation of Joints or Extremities Neurological: Cranial nerves II-XII grossly intact, Neuro grossly intact, Sensory exam intact to light touch and pain, Coordination normal Psych/Mental Status: Patient is somnolent, she awakens to verbal stimulation and painful stimulation, she appears appropriate when caring on short conversations - Physical Exam Vitals/I&O's: Vital Signs Temp Pulse Resp BP Pulse Ox 98.9 F 88 18 158/82 H 94 01/21/21 17:50 01/21/21 17:54 01/21/21 17:50 01/21/21 17:54 01/21/21 17:50 Oxygen Flow Rate (L/min) 2 Oxygen Delivery Method Room Air Weight: 90.4 kg Body Mass Index (BMI) 36.4 Finger Stick Blood Glucose 180 Intake and Output for Last 24 Hours 01/19/21 01/20/21 01/21/21 23:59 23:59 23:59 Intake Total 200 / 200 1059.75 / 1179.75 2203.75 / 2203.75 Output Total 400 / 1300 2575 / 2575 Balance 200 / 200 659.75 / -120.25 -371.25 / -371.25 Laboratory Results 01/20/21 21:28: POC Glucose 149 H 01/21/21 06:40: WBC 11.8 H, RBC 5.12, Hgb 14.9, Hct 46.8, MCV 91.4, MCH 29.1, MCHC 31.8 L, RDW Std Deviation 43.4, RDW Coeff of Sky 13.0, Plt Count 285, MPV 10.1, Immature Gran % (Auto) 0.400, Neut % (Auto) 78.4 H, Lymph % (Auto) 14.2 L, [place] % (Auto) 6.6, Eos % (Auto) 0.0, Baso % (Auto) 0.4, Absolute Neuts (auto) 9.2 H, Absolute Lymphs (auto) 1.67, Nucleated RBC % 0 01/21/21 06:40: Sodium 140, Potassium 3.6, Chloride 105, Carbon Dioxide 26.0, Anion Gap 9, BUN 9, Creatinine 0.98, Estim Creat Clear Calc 37.42, Est GFR (MDRD) Af Amer 70, Est GFR (MDRD) Non-Af 58 L, BUN/Creatinine Ratio 9.2 L, Glucose 44 L*, Calcium 9.2 01/21/21 07:23: POC Glucose 34 L* 01/21/21 07:46: POC Glucose 135 H 01/21/21 11:07: POC Glucose 174 H 01/21/21 18:15: POC Glucose 157 H 01/21/21 18:18: Glucose 185 H Current Medications Acetaminophen (Acetaminophen 325 Mg Tablet) 650 mg PO Q4H PRN PRN PRN Reason: Pain 1-10 or Fever Last Admin: 01/21/21 16:57 Dose: 650 mg Documented by: Alprazolam (Alprazolam 0.5 Mg Tablet) 0.25 mg PO TID [facility] Aspirin (A[facility]in E.C. 81 Mg Tablet) [facility] Last Admin: 01/21/21 09:32 Dose: Not Given Documented by: Atorvastatin Calcium (Atorvastatin Calcium 40 Mg Tablet) 40 mg PO QHS [facility] Last Admin: 01/20/21 21:33 Dose: 40 mg Documented by: Dextrose (Dextrose 50%-Water 25 Gm/50 Ml Disp.Syrin) 0 gm IV X1 PRN; Protocol PRN Reason: Hypoglycemia Last Admin: 01/21/21 17:54 Dose: 25 gm Documented by: Glucagon (Glucagon 1 Mg/Ml Syringe) 1 mg IM .X1 PRN PRN Reason: Hypoglycemia Heparin Sodium (Beef Lung) (Heparin Lock 500 Unit/5 Ml In 10 Ml Syringe) 500 unit IV UD PRN PRN Reason: HEPARIN FLUSH Sodium Chloride () 1,000 mls @ 0 mls/hr IV .Q0M [facility] Dextrose/Sodium Chloride () 1,000 mls @ 100 mls/hr IV .Q10H [facility] Insulin Human Lispro (Insulin Lispro 100 Unit/Ml Insuln.Pen) 0 unit SC ACHS [facility]; Protocol Labetalol HCl (Labetalol (Prefilled) 20 Mg/4 Ml) 5 mg IV X1 PRN PRN Reason: SBP > 160 prior to sheath pull Stop: 01/22/21 15:30 Levothyroxine Sodium (Levothyroxine 50 Mcg Tablet) 50 mcg PO DAILY@0600 [facility] Last Admin: 01/21/21 05:37 Dose: 50 mcg Documented by: Lisinopril (Lisinopril 5 Mg Tablet) 5 mg PO DAILY [facility] Last Admin: 01/21/21 09:33 Dose: Not Given Documented by: Metoprolol Succinate (Metoprolol(Xl)Succ 50 Mg Tablet) 50 mg PO DAILY [facility] Last Admin: 01/21/21 09:33 Dose: Not Given Documented by: Metoprolol Tartrate (Metoprolol Tartrate 5 Mg/5 Ml Vial) 5 mg IV Q6 [facility] Last Admin: 01/21/21 17:54 Dose: 5 mg Documented by: Montelukast Sodium (Montelukast 10 Mg Tablet) 10 mg PO DAILY [facility] Last Admin: 01/21/21 09:33 Dose: Not Given Documented by: Morphine Sulfate (Morphine 2 Mg/Ml Syringe) 2 mg IV Q3H PRN PRN PRN Reason: Pain Score 6-10 Last Admin: 01/21/21 18:09 Dose: 2 mg Documented by: Nitroglycerin (Nitroglycerin (Inpatient Use) 0.4 Mg Tab.Subl) 0.4 mg SL Q5M PRN PRN Reason: CARDIAC/CHEST PAIN Pramipexole Dihydrochloride (Pramipexole Di-Hcl 0.25 Mg Tablet) 0.25 mg PO TID [facility] Last Admin: 01/21/21 15:42 Dose: Not Given Documented by: Prednisolone Acetate (Prednisolone Eye Drops (5 Ml) 1 Drop Opth.Btl) 1 drp OPHTHALMIC Q4H [facility] Last Admin: 01/21/21 17:59 Dose: Not Given Documented by: Sodium Chloride (0.9% Saline Lock 10 Ml Syringe) 10 - 40 ml IV UD PRN PRN Reason: SALINE FLUSH Last Admin: 01/21/21 18:09 Dose: 10 ml Documented by: Trazodone HCl (Trazodone 100 Mg Tablet) 100 mg PO QHS [facility] Last Admin: 01/20/21 21:32 Dose: 100 mg Documented by: Vilazodone HCl (Vilazodone Hydrochloride 10 Mg Tablet) 40 mg PO DAILY [facility] Last Admin: 01/21/21 09:33 Dose: Not Given Documented by: Medical Necessity - Tobacco Use Smoking Status: Former smoker Assessment/Plan All Active Problems (Last Updated 01/20/21 @ 16:23 by Lisa Shaw) Chest pain (Acute) Abnormal stress test (Acute) Restrictive lung disease (Acute) Bradycardia (Acute) Acute delirium (Resolved) #1 musculoskeletal chest pain #2 atherosclerotic heart disease #3 encephalopathy probably secondary to medication reaction, patient will be observed tonight, she will be reevaluated tomorrow, patient appears not anxious today and earlier today she was alert and appropriate. #4 paroxysmal atrial fibrillation-patient is currently off Coumadin #5 type 2 diabetes #6 obstructive sleep apnea #7 hyperlipidemia #8 essential hypertension OBSV E&M: 39791 Subsequent observation care L3
[2021-01-21] MEDS: Atorvastatin Calcium 40 MG Tablet PO (20:56)
[2021-01-21] MEDS: traZODone 100 MG Tablet PO (20:56)
[2021-01-21] MEDS: ALPRAZolam 0.25 MG Tablet PO (20:59)
[2021-01-21 21:05] LABS: Bedside Glucose 170 mg/dL (70-110)
[2021-01-21] MEDS: Insulin Lispro 100 UNIT/ML INSULN.PEN SC (21:54)
[2021-01-21 22:00] LABS: Bedside Glucose 170 mg/dL (70-110)
[2021-01-22] VITALS (11 sets, daily range): BP systolic 97–162; BP diastolic 40–76; PULSE 54–80; RESP 15–18; TEMP 36.1–36.7; O2SAT 94–97
[2021-01-22] MEDS: Metoprolol Tartrate 5 MG/5 ML Vial IV ×3 (00:56→11:27)
[2021-01-22] MEDS: 0.9% Saline Lock 10 ML Syringe IV ×4 (00:58→11:27)
[2021-01-22 03:10] LABS: Bedside Glucose 154 mg/dL (70-110)
[2021-01-22] MEDS: Dext 5%-0.45% NS 1,000 ML 100 ML IV (04:33)
[2021-01-22] MEDS: Levothyroxine 50 MCG Tablet PO (05:36)
[2021-01-22] MEDS: Pramipexole Di-HCl 0.25 MG Tablet PO ×2 (05:36→13:38)
[2021-01-22] MEDS: ALPRAZolam 0.25 MG Tablet PO (05:39)
[2021-01-22 06:51] LABS: Bedside Glucose 136 mg/dL (70-110)
[2021-01-22 07:15] LABS: Bedside Glucose 23 mg/dL (70-110)
[2021-01-22 07:15] LABS: Bedside Glucose 30 mg/dL (70-110)
[2021-01-22] MEDS: Acetaminophen 325 MG Tablet 650 MG PO (08:50)
[2021-01-22] MEDS: Aspirin E.C. 81 MG Tablet PO (08:51)
[2021-01-22] MEDS: Metoprolol(XL)Succ 50 MG Tablet PO (08:51)
[2021-01-22] MEDS: Montelukast 10 MG Tablet PO (08:51)
[2021-01-22] MEDS: VILAZODONE HYDROCHLORIDE 10 MG TABLET 40 MG PO (08:51)
[2021-01-22] MEDS: Lisinopril 5 MG Tablet PO (08:51)
[2021-01-22] MEDS: Insulin Lispro 100 UNIT/ML INSULN.PEN SC (11:19)
[2021-01-22 11:55] LABS: Bedside Glucose 246 mg/dL (70-110)
--- NOTE | 2021-01-22 12:22 | PCM.DC ---
- Discharge Diagnoses Current Active Problems: Current Active and Chronic Problems (Last Updated 01/20/21 @ 16:23 by Lisa Shaw) Chest pain (Acute) Abnormal stress test (Acute) Paroxysmal atrial fibrillation (Chronic) Essential hypertension (Chronic) Restrictive lung disease (Acute) Atherosclerosis of coronary artery of [place] heart without angina pectoris (Chronic) JAY to LAD, SVG to OM2 and sequetially to diagonal, SVG to PDA 06/01/17 H/O coronary artery bypass surgery (Chronic ~06/01/17) JAY to LAD, SVG to OM2 and sequetially to diagonal, SVG to PDA 06/01/17 [employer] (current) use of anticoagulants (Chronic) Diabetes mellitus (Chronic) MARIVEL (obstructive sleep apnea) (Chronic) Hyperlipidemia (Chronic) Pulmonary embolism (Chronic) GERD (gastroesophageal reflux disease) (Chronic) Morbid obesity (Chronic) You will use the following diet at home:: Calorie/Carbohydrate Controlled (specify 1200, 1400, etc) - 1800 antoni Your food should be the consistency of: Regular Your liquids should be the consistency of: Regular/Thin Discharge Activity: Return to Normal Activity Weight Bearing Status: Full weight bearing Allergies/Adverse Reactions: Allergies insulin isophane (NPH) Allergy (Severe, Verified 01/19/21 18:48) heart burn latex Allergy (Verified 01/19/21 22:14) Unknown only allergic when already sick sitagliptin phosphate [From Januvia] Allergy (Verified 01/19/21 18:48) Unknown insulin degludec [From Xultophy 100/3.6] Adverse Reaction (Mild, Verified 01/19/21 18:48) Nausea liraglutide [From Xultophy 100/3.6] Adverse Reaction (Mild, Verified 01/19/21 18:48) Nausea atorvastatin [From Lipitor] Adverse Reaction (Unknown, Verified 01/19/21 18:48) Unknown codeine Adverse Reaction (Unknown, Verified 01/19/21 18:48) Unknown tizanidine Adverse Reaction (Unknown, Verified 01/19/21 18:48) Unknown Medications to take at Discharge aspirin 81 mg tablet,delayed release 81 mg PO QDAY 11/03/17 lisinopril 10 mg tablet 5 mg PO QDAY tab 11/03/17 warfarin 2 mg tablet 2.5 mg PO DAILY@1700 11/03/17 atorvastatin 40 mg tablet 40 mg PO QDAY #30 tab 03/02/18 metoprolol succinate 50 mg tablet,extended release 24 hr 50 mg PO QDAY tab 06/08/18 levothyroxine 50 mcg tablet 50 mcg PO DAILY 12/29/18 ropinirole 0.5 mg tablet 0.5 mg PO TID tab 12/29/18 vilazodone 40 mg tablet 40 mg PO DAILY 12/29/18 alprazolam 0.5 mg tablet 0.5 mg PO TID tab 11/23/19 trazodone 50 mg tablet 100 mg PO QHS tab 05/22/20 hydrocodone 5 mg-acetaminophen 325 mg tablet 1 tablet PO QHS PRN 12/29/20 montelukast 10 mg tablet 10 mg PO DAILY 12/29/20 prednisolone acetate 1 % eye drops,suspension 1 drp OPHTHALMIC 6XD 12/29/20 Insulin Degludec [Tresiba Flextouch U-200] 25 unit SC QHS 25 Days #7.5 ml 01/22/21 The following prescriptions were given: Insulin Degludec [Tresiba Flextouch U-200] 25 unit SC QHS 25 Days #7.5 ml Primary Care Physician: Isra Rubalcava MD [Primary Care Provider] - Please follow up with your Primary Care Physician in: in 7 days-get INR rechecked Test Results: Test results from this visit will be discussed in further detail at your follow-up appointment, if applicable. Please Follow Up With: Markel Hopkins MD When: in 3-4 weeks
--- NOTE | 2021-01-22 13:50 | CASEMGMT ---
Per Dr. Maria, pt is alert/oriented today, able to make own decisions, and states would like to go home. Lisa VALLES states daughter called in stating pt needs to go to SNF for some rehab but pt declines at this time. Pt is up in hallway w/ WW and son at side. Per son/pt, no need for any further therapy at this time. Pt ready for discharge. Pt/son voice no further questions/concerns/needs. Zachary VALLES CM
--- NOTE | 2021-01-23 19:11 | DS.PCM_ITS ---
Discharge Date and Diagnosis - Problem List Patient Problems: Active and Suspected Problems (Last Updated 01/20/21 @ 16:23 by Lisa Shaw) Chest pain (Acute) Abnormal stress test (Acute) Restrictive lung disease (Acute) Date of Admission: 01/19/21 Date of Discharge: 01/22/21 - Primary Discharge Diagnosis Acute Problems: Active Problems (Last Updated 01/20/21 @ 16:23 by Lisa Shaw) #1 musculoskeletal chest pain #2 atherosclerotic heart disease #3 encephalopathy probably secondary to medication reaction #4 paroxysmal atrial fibrillation #5 type 2 diabetes #6 obstructive sleep apnea #7 hyperlipidemia #8 essential hypertension - Secondary Discharge Diagnosis Chronic Problems: Chronic Problems (Last Updated 01/20/21 @ 16:23 by Lisa Shaw) Paroxysmal atrial fibrillation (Chronic) Essential hypertension (Chronic) Abnormal chest CT (Chronic) Atherosclerosis of coronary artery of [place] heart without angina pectoris (Chronic) JAY to LAD, SVG to OM2 and sequetially to diagonal, SVG to PDA 06/01/17 H/O coronary artery bypass surgery (Chronic ~06/01/17) JAY to LAD, SVG to OM2 and sequetially to diagonal, SVG to PDA 06/01/17 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 (Chronic) Diabetes mellitus (Chronic) MARIVEL (obstructive sleep apnea) (Chronic) Hyperlipidemia (Chronic) Pulmonary embolism (Chronic) GERD (gastroesophageal reflux disease) (Chronic) Morbid obesity (Chronic) Hospital Course and Treatment Operations: None Procedures: Cardiac catheterization Summary of Care Provided: The patient is a 80 year old F who was seen in the emergency room at [facility] with chief complaint of chest pain, patient had recently had an outpatient stress test which was read out as abnormal and she was scheduled to have an outpatient cardiac catheterization but came in to the ER for evaluation of chest pain. Evaluation of the patient in the ER included cardiac enzymes which were normal, EKG showed normal sinus rhythm at [address]-T wave changes, chest x-ray showed no acute changes. Patient was placed in observation status on PCU, she was seen in consultation by cardiology and she was given vitamin K for reversal of her INR. Patient had forgotten to stop her Coumadin for her upcoming heart catheterization. Patient underwent a heart catheterization on 01/20/2021 which showed no evidence of occlusive coronary disease, she had an adverse reaction to sedation during the heart catheterization and became very agitated and nervous. She had to be medicated when she reached PCU after the procedure and she remained lethargic for the next 2 days, this was felt to be secondary to medication reaction. On 01/22/2021, patient was seen and examined: On examination she appeared in good health and spirits, she does not appear to be in any distress. Vital signs as documented. Skin warm and dry and without overt rashes. Neck without JVD, thyroid appears normal, trachea is midline, neck is supple. Lungs clear, normal air movement was noted. Heart exam notable for regular rhythm, normal sounds and absence of murmurs, rubs or gallops. Abdomen unremarkable and without evidence of organomegaly, masses, or abdominal aortic enlargement, bowel sounds are present in all 4 quadrants, no abdominal tenderness was noted. Extremities nonedematous, no cyanosis was noted, no clubbing was noted. Neuro: Cranial nerves II through XII are grossly intact, no focal motor deficits were noted, sensation to light touch and pinprick is intact, motor exam 5/5 throughout. Psych: Patient is alert and oriented x3, she does not appear anxious or depressed, she does not appear agitated. Patient appears stable for discharge on 01/22/2021. Patient Problems: Active and Suspected Problems (Last Updated 01/20/21 @ 16:23 by Lisa Shaw) Chest pain (Acute) Abnormal stress test (Acute) Restrictive lung disease (Acute) - Physical Exam Vitals/I&O's: Vital Signs Temp Pulse Resp BP Pulse Ox 98.1 F 63 15 162/63 H 96 01/22/21 13:57 01/22/21 13:57 01/22/21 13:57 01/22/21 13:57 01/22/21 13:57 Oxygen Flow Rate (L/min) 2 Oxygen Delivery Method Room Air Weight: 90.4 kg Body Mass Index (BMI) 36.4 Finger Stick Blood Glucose 180 Intake and Output for Last 24 Hours 01/21/21 01/22/21 01/23/21 23:59 23:59 23:59 Intake Total 2203.75 / 2323.75 2228.33 / 2228.33 Output Total 2575 / 2950 625 / 625 Balance -371.25 / -626.25 1603.33 / 1603.33 Discharge Activity: Return to Normal Activity Weight Bearing Status: Full weight bearing Home Medications: Medications to take at Discharge aspirin 81 mg tablet,delayed release 81 mg PO QDAY 11/03/17 lisinopril 10 mg tablet 5 mg PO QDAY tab 11/03/17 warfarin 2 mg tablet 2.5 mg PO DAILY@1700 11/03/17 atorvastatin 40 mg tablet 40 mg PO QDAY #30 tab 03/02/18 metoprolol succinate 50 mg tablet,extended release 24 hr 50 mg PO QDAY tab 06/08/18 levothyroxine 50 mcg tablet 50 mcg PO DAILY 12/29/18 ropinirole 0.5 mg tablet 0.5 mg PO TID tab 12/29/18 vilazodone 40 mg tablet 40 mg PO DAILY 12/29/18 alprazolam 0.5 mg tablet 0.5 mg PO TID tab 11/23/19 trazodone 50 mg tablet 100 mg PO QHS tab 05/22/20 hydrocodone 5 mg-acetaminophen 325 mg tablet 1 tablet PO QHS PRN 12/29/20 montelukast 10 mg tablet 10 mg PO DAILY 12/29/20 prednisolone acetate 1 % eye drops,suspension 1 drp OPHTHALMIC 6XD 12/29/20 Insulin Degludec [Tresiba Flextouch U-200] 25 unit SC QHS 25 Days #7.5 ml 01/22/21 Following Prescriptions Were Given to Patient: Insulin Degludec [Tresiba Flextouch U-200] 25 unit SC QHS 25 Days #7.5 ml Primary Care Physician: Isra Rubalcava MD [Primary Care Provider] - Please follow up with your Primary Care Physician in: in 7 days-get INR rechecked Please Follow Up With: Markel Hopkins MD When: in 3-4 weeks Disposition: Home Minutes spent on discharge:: 31 Patient Condition:: Stable Medical Necessity - Tobacco Use Smoking Status: Former smoker Meaningful Use Info Meaningful Use Diagnoses (Choose all that apply): None applicable OBSV E&M: 22534 Observation care discharge
== END 2021-01-22 12:23 | disposition home or self-care (01) ==
LOC: ED 19:45 → PCU 23:01
PROVIDERS: Internal Medicine Cardiovascular Disease; Admitting Provider Family Medicine; Emergency Provider Student in an Organized Health Care Education/Training Program; PCP Family Medicine; Visit Provider Internal Medicine
DX: R07.89 Other chest pain (principal); I25.110 Atherosclerotic heart disease of native coronary artery with unstable angina pectoris; E11.9 Type 2 diabetes mellitus without complications; E78.5 Hyperlipidemia, unspecified; I10 Essential (primary) hypertension; E66.01 Morbid (severe) obesity due to excess calories; I48.0 Paroxysmal atrial fibrillation; G47.33 Obstructive sleep apnea (adult) (pediatric); K21.9 Gastro-esophageal reflux disease without esophagitis; R94.31 Abnormal electrocardiogram [ECG] [EKG]; M19.90 Unspecified osteoarthritis, unspecified site; G93.40 Encephalopathy, unspecified; J98.4 Other disorders of lung; T42.75XA Adverse effect of unspecified antiepileptic and sedative-hypnotic drugs, initial encounter; Y92.234 Operating room of hospital as the place of occurrence of the external cause; F32.9 Major depressive disorder, single episode, unspecified; R93.89 Abnormal findings on diagnostic imaging of other specified body structures; F41.9 Anxiety disorder, unspecified; Z86.711 Personal history of pulmonary embolism; Z86.718 Personal history of other venous thrombosis and embolism; Z95.1 Presence of aortocoronary bypass graft; Z79.899 Other long term (current) drug therapy; Z79.01 Long term (current) use of anticoagulants; Z79.82 Long term (current) use of aspirin; Z79.02 Long term (current) use of antithrombotics/antiplatelets; Z68.37 Body mass index [BMI] 37.0-37.9, adult; Z79.4 Long term (current) use of insulin; Z87.891 Personal history of nicotine dependence
CPT/HCPCS: 36415; 71045; 80048; 80053; 82947; 82962; 83735; 84100; 84443; 84484; 85025; 85610; 93005; 93459; 93567; 96361; 96365; 96375; 96376; 99152; 99153; 99218; 99285; J7030; Q9967; A4216; C1769; C1894; G0378; J3490; J7799

== ENCOUNTER → 2021-01-27 15:01 | Outpatient (CLI) | payer MEDICARE, SELFPAY ==
[2021-01-19 22:00] VITALS: BMI 36.4
[2021-01-27 16:05] LABS: AST(SGOT) 23 U/L (15-37); Alanine Aminotransfer ALT/SGPT 26 U/L (13-56); Albumin, Serum 3.2 g/dL (3.2-5.0); Alkaline Phosphatase 119 U/L (45-117); Bilirubin, Direct 0.11 mg/dL (0.00-0.30); Globulin 4.3 g/dL (2.2-4.2); Protein, Total 7.5 g/dL (6.4-8.2)
[2021-01-30 20:08] LABS: QNTFERON TB Mitogen Value > 10.00 IU/mL (.); QNTFERON TB Nil Value 0 IU/mL (.); QNTFERON TB1+ Ag Value 0.09 IU/mL (.); QNTFERON TB2+ Ag Value 0 IU/mL (.)
[2021-01-30 20:26] LABS: QNTIFERON TB Positive Criteria Negative (Negative)
== END ==
PROVIDERS: PCP Family Medicine; Referring Provider Dermatology; Visit Provider Dermatology
DX: L40.0 Psoriasis vulgaris (principal); L72.8 Other follicular cysts of the skin and subcutaneous tissue; Z79.899 Other long term (current) drug therapy
CPT/HCPCS: 36415; 80076; 86480

== ENCOUNTER 2023-05-12 20:40 | Inpatient (IN) | payer MEDICARE, SELFPAY ==
[2023-05-12 20:41] VITALS: BP 169/91; PULSE 83; RESP 16; TEMP 37.8; O2SAT 92; BMI 33.4
--- NOTE | 2023-05-12 21:22 | EKG12_ITS ---
Test Reason : Dysrhythmia Blood Pressure : / mmHG Vent. Rate : 080 BPM Atrial Rate : 080 BPM P-R Int : 244 ms QRS Dur : 082 ms QT Int : 418 ms P-R-T Axes : 067 067 081 degrees QTc Int : 482 ms Sinus rhythm with 1st degree A-V block Otherwise normal ECG Confirmed by TAISHA ALY, CLARA ([id number]), index editor NEERAJ JUAN ([id number]) on 05/16/2023 8:28:11 AM Referred By: Ilia Confirmed By:CORTES SUMNER MD
[2023-05-12 21:39] LABS: Bacteria 0 SEEN /hpf (None Seen); Mucous, Urine 0 SEEN /hpf (<or=2+); Red Blood Cells-Urine 0 SEEN /hpf (0-5); Squamous Epithelial Cells - UA 0 SEEN /hpf (5-10); White Blood Cells 0 SEEN /hpf (0-5)
[2023-05-12 21:44] LABS: Color, Urine Yellow (Yellow); Glucose, Dipstick Normal (Normal); Ketone-Dipstick Negative (Negative); Leukocyte Esterase-Dipstick Negative /ul (Negative); Nitrite-Dipstick Negative (Negative); Occult Blood-Urine 10 /ul (Negative); Protein-Dipstick 15 mg/dl (Negative); Urine Bilirubin Dipstick Negative (Negative); Urine Clarity Clear (Clear); Urine Urobilinogen 1 mg/dl (Normal)
[2023-05-12 21:50] LABS: International Normalized Ratio 1.1; Partial Thromboplast Time 28.7 Seconds (24.1-36.2); Prothrombin Time (Protime)PT. 14.5 SECONDS (11.7-14.9)
[2023-05-12 21:57] LABS: ALB/GLOB Ratio 0.7 RATIO (0.9-2.4); AST(SGOT) 483 U/L (15-37); Alanine Aminotransfer ALT/SGPT 345 U/L (13-56); Albumin, Serum 3.3 g/dL (3.2-5.0); Alkaline Phosphatase 332 U/L (45-117); Anion Gap 6 (5-15); BUN 13 mg/dL (7-18); BUN/Creat Ratio 10.9 RATIO (10-20); Calcium,Total 9.8 mg/dL (8.5-10.1); Chloride 100 mmol/L (98-107); Creatinine, Serum 1.19 mg/dL (0.55-1.02); EST Glomerular Filtration Rate 46 mL/min (>60); Est Glom Filt Rate - Afr Amer 56 mL/min (>60); Estimated Creatinine Clearance 33.93 ml/min; Globulin 4.7 g/dL (2.2-4.2); Glucose 169 mg/dL (74-106); Potassium 4.1 mmol/L (3.5-5.1); Sodium Level 136 mmol/L (136-145)
--- NOTE | 2023-05-12 21:57 | CT_ITS ---
EXAM: CT brain without IV contrast. HISTORY: Head trauma with altered mental status on anticoag TECHNIQUE: No intravenous contrast. A radiation dose optimization technique was used for this scan. COMPARISON: Head CT September 12, 2017. LIMITATIONS: None. 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 Mild involutional change. Mild low attenuation bilaterally within the deep white matter, likely secondary to chronic microvascular ischemia. VENTRICLES: No hydrocephalus. EXTRA-AXIAL SPACES: No acute hemorrhage. CALVARIUM/SKULL BASE: No acute fracture. FACE/SINUSES: No significant abnormality. SOFT TISSUES: Normal. OTHER: None. CONCLUSION: No acute intracranial abnormality. Electronically Signed: Elliot Ziegler MD at 23:00 EDT , CT/Brain/Head without Contrast IMPRESSION: undefined
[2023-05-12 21:59] LABS: Lactic Acid 1.4 mmol/L (0.4-1.9)
--- NOTE | 2023-05-12 22:07 | EX.ED.DYSGE1 ---
HPI History of Present Illness Chief Complaint: Fever Detail of Chief Complaint: Documented temperature of 102.9 and change in mental status Informant: patient and family Onset/Context/Timing Onset: Today and Hours Context: Sudden Onset Timing: Continuous Quality: Altered mental status Location: Presents from home Current Severity: Moderate Maximum Severity: Moderate Worsened by: Unknown Relieved by: Nothing Associated Symptoms Associated Symptoms: Documented fever and decreased level of consciousness Narrative Narrative: Patient is a 82-year-old woman with history of paroxysmal atrial fibrillation, essential hypertension, restrictive lung disease, coronary disease, on anticoagulant who presents with altered mental status and document temperature 102.9. She has had decreased p.o. intake. Decreased awareness and orientation from normal per family member. Patient has a chronic runny nose. She had a slight cough. She has had some urologic issues and may have noted blood. Apparently patient fell from the commode. She was found between the commode and the wall. She is on anticoagulant and may have hit her head. She cannot remember if she did or did not hit her head. Prior similar symptoms: Yes (Infection) Recent Illness/Hospitalization: No [facility] Medical History (Updated 05/13/23 @ 00:[address] 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) use of anticoagulants Morbid obesity MARIVEL (obstructive sleep apnea) Osteoarthritis Paroxysmal atrial fibrillation Pulmonary embolism Stroke Home Medications aspirin 81 mg tablet,delayed release 81 mg PO QDAY 11/03/17 [History Last Taken Unknown] atorvastatin 40 mg tablet 40 mg PO QDAY #30 tabs 03/02/18 [Rx Last Taken Unknown] alprazolam 0.5 mg tablet 0.5 mg PO TID 11/23/19 [History Last Taken Unknown] montelukast 10 mg tablet 10 mg PO DAILY 12/29/20 [History Last Taken Unknown] nitroglycerin 0.4 mg sublingual tablet (Nitrostat) 0.4 mg sublingual Q5-15M PRN chest pain #25 tabs 10/21/21 [Rx Last Taken Unknown] BP cuff #1 ea 01/20/22 [Rx Last Taken Unknown] cholecalciferol (vitamin D3) 125 mcg (5,000 unit) capsule 125 mcg PO DAILY 01/20/22 [History Last Taken Unknown] escitalopram oxalate 10 mg tablet (Lexapro) 10 mg PO DAILY 01/20/22 [History Last Taken Unknown] topiramate 100 mg tablet 50 mg PO BID 01/20/22 [History Last Taken Unknown] acetaminophen 500 mg tablet (Tylenol Extra Strength) 500 mg PO BID PRN pain 05/19/22 [History Last Taken Unknown] hydrocodone-acetaminophen 5-325mg 5mg-325mg ([place]) 1 tab PO Q4H PRN Pain 1-10 Or Fever 05/19/22 [History Last Taken Unknown] insulin degludec 200 unit/mL (3 mL) subcutaneous pen 40 unit subcut QHS 05/19/22 [History Last Taken Unknown] ropinirole 1 mg tablet 1 mg PO TID 05/19/22 [History Last Taken Unknown] trazodone 150 mg tablet 300 mg PO QHS 05/19/22 [History Last Taken Unknown] apixaban 5 mg tablet (Eliquis) 5 mg PO BID 04/20/23 [History Last Taken Unknown] fesoterodine 4 mg tablet,extended release 24 hr 4 mg PO DAILY 04/20/23 [History Last Taken Unknown] losartan 25 mg tablet 25 mg PO DAILY #30 tabs 04/20/23 [Rx Last Taken Unknown] vibegron 75 mg tablet (Gemtesa) 75 mg PO DAILY 04/20/23 [History Last Taken Unknown] metoprolol succinate 50 mg tablet,extended release 24 hr 50 mg PO DAILY Disreguard earlier RX: this is a correction #30 tabs 04/21/23 [Rx Last Taken Unknown] furosemide 20 mg tablet 20 mg PO DAILY 05/12/23 [History Last Taken Unknown] guselkumab 100 mg/mL subcutaneous auto-injector (Tremfya) mg subcut .[id number] 05/12/23 [History Last Taken Unknown] tizanidine 4 mg capsule 4 mg PO Q8H 05/12/23 [History Last Taken Unknown] Allergy/AdvReac Type Severity Reaction Status Date / Time insulin isophane (NPH) Allergy Severe heart burn Verified 05/12/23 20:52 Anesthetics - Amide Type - Allergy NEEDS Verified 05/12/23 20:52 Select A FOLLOW-UP Anesthetics - Tyra Type- Allergy NEEDS Verified 05/12/23 20:52 Parabens FOLLOW-UP latex Allergy Unknown Verified 05/12/23 20:52 promethazine [From Phenergan] Allergy PT UNSURE Verified 05/12/23 20:52 OF REACTION sitagliptin phosphate Allergy Unknown Verified 05/12/23 20:52 [From Januvia] insulin degludec AdvReac Mild Nausea Verified 05/12/23 20:52 [From Xultophy 100/3.6] liraglutide AdvReac Mild Nausea Verified 04/20/23 14:41 [From Xultophy 100/3.6] atorvastatin [From Lipitor] AdvReac Unknown Unknown Verified 05/12/23 20:52 codeine AdvReac Unknown Unknown Verified 05/12/23 20:52 tizanidine AdvReac Unknown Unknown Verified 05/12/23 20:52 Family History Father CAD (coronary artery disease) Mother CAD (coronary artery disease) Brother CAD (coronary artery disease) Surgical History (Updated 05/13/23 @ 00:[address] Papo Morillo MD) H/O coronary artery bypass surgery (~06/01/17) History of bilateral cataract extraction History of cholecystectomy History of knee surgery History of total hysterectomy Social History Smoking Status: Former smoker how long ago did patient quit smokin years ago second hand exposure: Yes alcohol intake: never substance use type: does not use caffeine: No ROS ROS ED Constitutional Constitutional ED: Reports chills, fever(s) and sweats; Denies subjective or weight loss Eyes Eyes: Denies blurry vision, change in vision or diplopia ENT ENT ED: Reports rhinorrhea; Denies ear pain or sore throat Cardiovascular Cardiovascular: Denies chest pain, orthopnea, palpitations or racing heartbeat Respiratory/Chest Respiratory/Chest: Reports cough and dyspnea; Denies orthopnea Gastrointestinal Gastrointestinal: Reports nausea and vomiting; Denies abdominal pain Musculoskeletal Musculoskeletal: Denies arthralgias, back pain or myalgias Integumentary Denies rash Neurologic Neurologic: Reports weakness; Denies headache(s) or paresthesias Hematologic/Lymphatic Hematologic/Lymphatic: Reports easy bruising EXAM Physical Exam Const Vital Signs: 05/12/23 20:41 05/12/23 20:55 05/12/23 20:59 Temperature 100.1 F H Temperature Source Oral Pulse Rate 83 Respiratory Rate 16 Respiratory Effort Normal Non-Labored Normal Non-Labored Respiratory Depth Normal Respiratory Pattern Normal Normal Blood Pressure 169/91 H Blood Pressure Mean 117 Pulse Ox 92 Oxygen Delivery Method Room Air Room Air Oxygen Flow Rate (L/min) 05/12/23 21:36 05/12/23 22:53 05/12/23 23:11 Temperature 99.6 F H 99.6 F H Temperature Source Oral Oral Pulse Rate 82 82 Respiratory Rate 18 18 Respiratory Effort Respiratory Depth Respiratory Pattern Blood Pressure 157/81 H 144/74 H Blood Pressure Mean 106 97 Pulse Ox 92 97 Oxygen Delivery Method Room Air Room Air Nasal Cannula Oxygen Flow Rate (L/min) 2 Positive well nourished, well developed and obese General Appearance ED: well developed, diaphoretic, NAD and pallor; Negative for cyanotic Nutritional Appearance: obese HEENT Reports dry mucous membranes HEENT Narrative: Head is atraumatic normocephalic. There is no hemotympanum. No CSF otorrhea or rhinorrhea. Negative Alanis sign over Bailey sign. No septal deviation hematoma. No dental trauma. Mouth ED: Yes dry mucous membranes Mouth: dry mucous membranes Eyes PERRL and EOMs intact bilaterally General Eye ED: Negative for pale conjunctiva or scleral icterus Neck no lymphadenopathy, supple and no JVD Chest Wall inspection of chest normal and palpation of chest normal Resp normal respiratory effort and clear to auscultation bilaterally Cardio regular rate, regular rhythm, S1 normal heart sound, S2 normal heart sound and no murmurs GI normal to inspection, nondistended, normoactive bowel sounds, non-tender, non-distended and no masses; Negative for hepatosplenomegaly Back/Spine no CVA tenderness Extremity General Extremety ED: Yes edema General Extremity: edema Neuro oriented x3, CN's II-XII intact bilaterally and no sensory deficits noted Sensorium / Orientation: stuporous; Negative for alert Motor Exam: strength 5/5 throughout Psych Psych Narrative: Focal to assess since patient has acute encephalopathy and is not her normal self. Skin no rashes or lesions noted and no wounds General Skin Exam: pallor; Negative for jaundice MDM MDM MDM Narrative Medical decision making narrative: With documented fever change in mental status concern patient has infectious cephalopathy. Infectious sepsis workup was undertaken. With no obvious source patient was not started on antibiotics. Will obtain cath urine, chest x-ray appropriate blood work. If there is no identifiable source will use order set for treatment of sepsis for unknown source. History & Record Review Additional record(s) reviewed:: Prior ED visit and Prior labs Lab Data Attestation: I reviewed the patient's lab results. Lab results narrative: Basic metabolic panel is unremarkable. Patient's bilirubin is elevated at 3.2. AST and ALT are elevated 483 and 354 respectively. Alkaline phosphatase is elevated. Need to consider cholecystitis as the cause of her fever and possible obstruction. Labs: Laboratory Results - last 24 hr 05/12/23 05/12/23 21:20 21:30 WBC 9.8 RBC 4.92 Hgb 14.7 Hct 45.6 MCV 92.7 MCH 29.9 MCHC 32.2 RDW Std Deviation 41.1 RDW Coeff of Sky 12.0 Plt Count 244 MPV 10.8 Immature Gran % (Auto) 0.700 Neut % (Auto) 82.1 H Lymph % (Auto) 10.1 L [place] % (Auto) 6.4 Eos % (Auto) 0.3 Baso % (Auto) 0.4 Absolute Neuts (auto) 8.0 H Absolute Lymphs (auto) 0.99 Nucleated RBC % 0 PT 14.5 INR 1.1 APTT 28.7 Sodium 136 Potassium 4.1 Chloride 100 Carbon Dioxide 30.0 Anion Gap 6 BUN 13 Creatinine 1.19 H Estim Creat Clear Calc 33.93 Est GFR (MDRD) Af Amer 56 L Est GFR (MDRD) Non-Af 46 L BUN/Creatinine Ratio 10.9 Glucose 169 H Lactic Acid 1.4 Calcium 9.8 Total Bilirubin 3.20 H AST 483 H ALT 345 H Alkaline Phosphatase 332 H Total Protein 8.0 Albumin 3.3 Globulin 4.7 H Albumin/Globulin Ratio 0.7 L Urine Color Yellow Urine Clarity Clear Urine pH 7.0 Ur Specific [place] 1.010 Urine Protein 15 H Urine Glucose (UA) Normal Urine Ketones Negative Urine Occult Blood 10 H Urine Nitrite Negative Urine Bilirubin Negative Urine Urobilinogen 1 H Ur Leukocyte Esterase Negative Urine RBC 0 SEEN Urine WBC 0 SEEN Ur Squamous Epith Cells 0 SEEN Urine Bacteria 0 SEEN Urine Mucus 0 SEEN Radiography Diagnostic Testing: Clinical Impression(s) from Imaging Studies Brain CT 05/12/23 21:57 IMPRESSION: undefined Chest X-Ray 05/12/23 22:10 IMPRESSION: No acute pulmonary disease. Electronically Signed: Elliot Ziegler MD at 23:27 EDT , Gallbladder Ultrasound 05/12/23 22:28 IMPRESSION: undefined Ultrasound reveals mild biliary ductal dilatation. Common bile duct is normal for age and the fact that she is status post cholecystectomy. No stone was seen. Management Discussion w/another healthcare provider: Hospitalist (Hospitalist made aware patient. Hospitalist will contact Dr. Orr in the morning since this does not require an emergent consult.) Treatment and Re-Evaluation :: Patient requested I speak to dog who is a colorectal surgeon and family member. Number that was given was called. There was no answer. The voicemail has not been set up and unable to leave a message. Discharge Plan Triage Chief Complaint: Fever Other Complaint: Fall ED Provider: Papo Morillo Dx/Rx/DC Orders Clinical Impression: Acute encephalopathy, jail (current) use of anticoagulants, H/O coronary artery bypass surgery, Diabetes mellitus, Essential hypertension, Hyperlipidemia, Jaundice, Fever Prescriptions: No Action aspirin 81 mg tablet,delayed release (DR/EC) 81 mg PO QDAY alprazolam 0.5 mg tablet 0.5 mg PO TID montelukast 10 mg tablet 10 mg PO DAILY hydrocodone-acetaminophen [[place]] 5-325 mg tablet 1 tab PO Q4H PRN (Reason: Pain 1-10 Or Fever) insulin degludec 200 unit/mL (3 mL) insulin pen 40 unit SC QHS nitroglycerin [Nitrostat] 0.4 mg tablet, sublingual 0.4 mg sublingual Q5-15M PRN (Reason: chest pain) Qty: 25 3RF Rx Instructions: do not exceed 3 doses per episode topiramate 100 mg tablet 50 mg PO BID cholecalciferol (vitamin D3) 125 mcg (5,000 unit) capsule 125 mcg PO DAILY escitalopram oxalate [Lexapro] 10 mg tablet 10 mg PO DAILY (DME) BP cuff See Rx Instructions .Route .MEDSUPPLY Qty: 1 0RF Rx Instructions: As directed trazodone 150 mg tablet 300 mg PO QHS ropinirole 1 mg tablet 1 mg PO TID Patient Comments: TAKE 1 TABLET BY MOUTH THREE TIMES A DAY acetaminophen [Tylenol Extra Strength] 500 mg tablet 500 mg PO BID PRN (Reason: pain) Eliquis 5 mg tablet 5 mg PO BID Gemtesa 75 mg tablet 75 mg PO DAILY fesoterodine 4 mg tablet extended release 24 hr 4 mg PO DAILY losartan 25 mg tablet 25 mg PO DAILY Qty: 30 11RF furosemide 20 mg tablet 20 mg PO DAILY tizanidine 4 mg capsule 4 mg PO Q8H Tremfya 100 mg/mL auto-injector subcut .[id number] atorvastatin 40 mg tablet 40 mg PO QDAY Qty: 30 6RF metoprolol succinate 50 mg tablet extended release 24 hr 50 mg PO DAILY Qty: 30 11RF Primary Care Provider: Isra Rubalcava Referrals: Isra Rubalcava MD [Primary Care Provider] - Disposition Disposition: Home, Self Care
--- NOTE | 2023-05-12 22:10 | RAD_ITS ---
INDICATION: cough EXAMINATION: Frontal view of the chest COMPARISON: Chest x-ray January 19, 2021. FINDINGS: Frontal view of the chest was obtained. The cardiac silhouette is mildly enlarged. No confluent airspace disease. No pneumothorax. Screws, plates and wires in the sternum. RAD/Chest 1 View (Portable) IMPRESSION: No acute pulmonary disease. Electronically Signed: Elliot Ziegler MD at 23:27 EDT ,
[2023-05-12 22:24] LABS: Absolute Lymphocyte Count 0.99 X10^3/uL (0.83-4.51); Basophil# 0.04 X10^3/uL; Basophil% 0.4 % (0-1); Eosinophil# 0.03 X10^3/uL; Eosinophils% 0.3 % (0-5); Hematocrit 45.6 % (37-47); Hemoglobin 14.7 g/dL (12.0-15.0); Lymphocyte # 0.99 X10^3/ul (0.83-4.51); Lymphocyte % 10.1 % (19-41); Mean Corp Hgb Conc 32.2 g/dL (32-36); Mean Corpuscular Hgb 29.9 pg (27.0-32.0); Mean Corpuscular Volume 92.7 fL (81-99); Mean Platelet Vol. 10.8 fl (6.2-12.0); Monocyte# 0.63 X10^3/uL; Monocyte% 6.4 % (0-10); NRBC Flagged by Analyzer 0 % (0-5); Neutrophil # 8.01 X10^3/uL (2.7-7.7); Neutrophil % 82.1 % (47-70); Platelet Count 244 K/mm3 (150-450); RBC Distribution Width SD 41.1 fl (35.1-43.9); Red Blood Count 4.92 M/mm3 (4.2-5.4); White Blood Count 9.8 K/mm3 (4.4-11.0)
--- NOTE | 2023-05-12 22:28 | US_ITS ---
EXAM: Ultrasound abdomen, RUQ. HISTORY: Fever, jaundice, elevated transaminases COMPARISON: None. LIMITATIONS: None. LIVER: Echotexture is mildly heterogeneous diffusely. No focal suspicious liver lesions. PORTAL VEINS: Normal. GALLBLADDER: Removed BILE DUCTS: The partially visualized common duct is normal in caliber for age measuring 6 mm. Intrahepatic bile ducts may be mildly dilated. PANCREAS: Not well visualized. RIGHT KIDNEY: Normal. OTHER: None. CONCLUSION: Cholecystectomy. Possible mild intrahepatic biliary ductal dilatation. Electronically Signed: Elliot Ziegler MD at 23:34 EDT , US/Gallbladder IMPRESSION: undefined
[2023-05-12 22:53] VITALS: BP 157/81; PULSE 82; RESP 18; TEMP 37.6; O2SAT 92
[2023-05-12 23:11] VITALS: BP 144/74; PULSE 82; RESP 18; TEMP 37.6; O2SAT 97
[2023-05-13] VITALS (16 sets, daily range): BP systolic 105–172; BP diastolic 51–96; PULSE 50–74; RESP 16–20; TEMP 36.1–37.2; O2SAT 92–100; BMI 35.4; BMI 35.6
--- NOTE | 2023-05-13 00:49 | PCM.HP.STD ---
HPI - General General Date of Admission: 05/13/23 Date of Service: 05/13/23 Chief Complaint: Fall, confusion, fever, N/V HPI Narrative The patient is an 82 y/o F w/ PMHx: CKD stage III unclear subtype, Allergic rhinitis, CAD s/p CABG (JAY to the LAD, SVG sequential graft to the diagonal branch and OM 2, SVG to the PDA), PAF, HTN, HLD, MARIVEL, Diabetes mellitus type II, Former tobacco use, Depression and Anxiety, GERD, Hx VTE (DVT, PE), Hx CVA, Obesity who presents to the [facility] ED on 05/12/23 with history of onset of fever as well as altered mental status reportedly with temperature up to 102.9 of sudden onset worsening over the last several hours with decreased oral intake and a recent slight cough with chronic rhinorrhea and potentially recent blood noted in her urine falling off of the commode found between the commode and the wall with unclear head trauma prompting family to bring her in for evaluation. Patient does not recall any of these recent events and is very altered. Patient and family do repor that ~ 2 weeks prior to current presentation she had similar N/V bout that lasted 3 days although no fever associated and seemed to improve at that time. Workup in the ED included T1 100.1, heart rate 83, BP 169/91, respiratory rate 16, 92% on room air--> T99.6, heart rate 82, BP 144/74, respiratory rate 18, 97% on 2 L nasal cannula,, CBC with WBC 9.8, hemoglobin 14.7, platelet 244 with left shift, unremarkable coags, CMP with BUN/creatinine 13/1.19, glucose 169, lactic acid 1.4, T. bili 3.20, AST/ALT 43/345, alk phos 332, urinalysis unremarkable, CT of the brain with evidence of a small old infarct in the right frontal lobe stable since prior with no acute intracranial findings, chest x-ray with no acute cardiopulmonary findings, gallbladder ultrasound evidence status postcholecystectomy with possible mild intrahepatic biliary ductal dilatation, urine culture and blood culture x 2 pending per ED. in the ED patient administered IV Zosyn and morphine 4 mg IV x 1. 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 Morbid obesity MARIVEL (obstructive sleep apnea) Osteoarthritis Paroxysmal atrial fibrillation Pulmonary embolism Stroke Home Medications aspirin 81 mg tablet,delayed release 81 mg PO QDAY 11/03/17 [History Last Taken Unknown] atorvastatin 40 mg tablet 40 mg PO QDAY #30 tabs 03/02/18 [Rx Last Taken Unknown] alprazolam 0.5 mg tablet 0.5 mg PO TID 11/23/19 [History Last Taken Unknown] montelukast 10 mg tablet 10 mg PO DAILY 12/29/20 [History Last Taken Unknown] nitroglycerin 0.4 mg sublingual tablet (Nitrostat) 0.4 mg sublingual Q5-15M PRN chest pain #25 tabs 10/21/21 [Rx Last Taken Unknown] BP cuff #1 ea 01/20/22 [Rx Last Taken Unknown] cholecalciferol (vitamin D3) 125 mcg (5,000 unit) capsule 125 mcg PO DAILY 01/20/22 [History Last Taken Unknown] escitalopram oxalate 10 mg tablet (Lexapro) 10 mg PO DAILY 01/20/22 [History Last Taken Unknown] topiramate 100 mg tablet 50 mg PO BID 01/20/22 [History Last Taken Unknown] acetaminophen 500 mg tablet (Tylenol Extra Strength) 500 mg PO BID PRN pain 05/19/22 [History Last Taken Unknown] hydrocodone-acetaminophen 5-325mg 5mg-325mg ([place]) 1 tab PO Q4H PRN Pain 1-10 Or Fever 05/19/22 [History Last Taken Unknown] insulin degludec 200 unit/mL (3 mL) subcutaneous pen 40 unit subcut QHS 05/19/22 [History Last Taken Unknown] ropinirole 1 mg tablet 1 mg PO TID 05/19/22 [History Last Taken Unknown] trazodone 150 mg tablet 300 mg PO QHS 05/19/22 [History Last Taken Unknown] apixaban 5 mg tablet (Eliquis) 5 mg PO BID 04/20/23 [History Last Taken Unknown] fesoterodine 4 mg tablet,extended release 24 hr 4 mg PO DAILY 04/20/23 [History Last Taken Unknown] losartan 25 mg tablet 25 mg PO DAILY #30 tabs 04/20/23 [Rx Last Taken Unknown] vibegron 75 mg tablet ([place]) 75 mg PO DAILY 04/20/23 [History Last Taken Unknown] metoprolol succinate 50 mg tablet,extended release 24 hr 50 mg PO DAILY Disreguard earlier RX: this is a correction #30 tabs 04/21/23 [Rx Last Taken Unknown] furosemide 20 mg tablet 20 mg PO DAILY 05/12/23 [History Last Taken Unknown] guselkumab 100 mg/mL subcutaneous auto-injector (Tremfya) mg subcut .[id number] 05/12/23 [History Last Taken Unknown] tizanidine 4 mg capsule 4 mg PO Q8H 05/12/23 [History Last Taken Unknown] Allergy/AdvReac Type Severity Reaction Status Date / Time insulin isophane (NPH) Allergy Severe heart burn Verified 05/12/23 20:52 Anesthetics - Amide Type - Allergy NEEDS Verified 05/12/23 20:52 Select A FOLLOW-UP Anesthetics - Tyra Type- Allergy NEEDS Verified 05/12/23 20:52 Parabens FOLLOW-UP latex Allergy Unknown Verified 05/12/23 20:52 promethazine [From Phenergan] Allergy PT UNSURE Verified 05/12/23 20:52 OF REACTION sitagliptin phosphate Allergy Unknown Verified 05/12/23 20:52 [From Januvia] insulin degludec AdvReac Mild Nausea Verified 05/12/23 20:52 [From Xultophy 100/3.6] liraglutide AdvReac Mild Nausea Verified 04/20/23 14:41 [From Xultophy 100/3.6] atorvastatin [From Lipitor] AdvReac Unknown Unknown Verified 05/12/23 20:52 codeine AdvReac Unknown Unknown Verified 05/12/23 20:52 tizanidine AdvReac Unknown Unknown Verified 05/12/23 20:52 Family History Father CAD (coronary artery disease) Mother CAD (coronary artery disease) Brother CAD (coronary artery disease) Surgical History H/O coronary artery bypass surgery (~06/01/17) History of bilateral cataract extraction History of cholecystectomy History of knee surgery History of total hysterectomy Social History (Updated 05/13/23 @ 01:[address] Octavia Gruber MD) household members: none housing: assisted living facility Smoking Status: Former smoker how long ago did patient quit smokin years ago second hand exposure: Yes alcohol intake: never substance use type: does not use caffeine: No ROS ROS Narrative Admission Review of Systems: CONSTITUTIONAL: No weight loss, + fever, chills, weakness or fatigue. HEENT: + Chronic rhinorrhea. Eyes: No visual loss, blurred vision, double vision. Ears, Nose, Throat: No hearing loss, sneezing, congestion or sore throat. SKIN: + Jaundice. No rash or itching, lesions, wounds. CARDIOVASCULAR: No chest pain, chest pressure or chest discomfort, palpitations, edema, orthopnea, syncopal events. RESPIRATORY: + shortness of breath, cough without marked sputum. No wheezing, hemoptysis. GASTROINTESTINAL: + anorexia, nausea, vomiting. No diarrhea, abdominal pain, melena, BRBPR. GENITOURINARY: No dysuria, frequency, urgency or retention. NEUROLOGICAL: + Confusion. No headache, dizziness, syncope, paralysis, ataxia, numbness or tingling in the extremities, focal weakness, change in bowel or bladder control, seizure. MUSCULOSKELETAL: + muscle, back pain, joint pain or stiffness. HEMATOLOGIC: + Easy bleeding/bruising. LYMPHATICS: No enlarged nodes. No history of splenectomy. PSYCHIATRIC: + history of depression or anxiety. ENDOCRINOLOGIC: No reports of sweating, cold or heat intolerance. No polyuria or polydipsia. ALLERGIES: + History allergic rhinitis. Vital Signs Vital Signs Vital Signs: 05/12/23 20:41 05/12/23 20:55 05/12/23 20:59 Temperature 100.1 F H Temperature Source Oral Pulse Rate 83 Respiratory Rate 16 Respiratory Effort Normal Non-Labored Normal Non-Labored Respiratory Depth Normal Respiratory Pattern Normal Normal Blood Pressure 169/91 H Blood Pressure Mean 117 Pulse Ox 92 Oxygen Delivery Method Room Air Room Air Oxygen Flow Rate (L/min) 05/12/23 21:36 05/12/23 22:53 05/12/23 23:11 Temperature 99.6 F H 99.6 F H Temperature Source Oral Oral Pulse Rate 82 82 Respiratory Rate 18 18 Respiratory Effort Respiratory Depth Respiratory Pattern Blood Pressure 157/81 H 144/74 H Blood Pressure Mean 106 97 Pulse Ox 92 97 Oxygen Delivery Method Room Air Room Air Nasal Cannula Oxygen Flow Rate (L/min) 2 Weight Weight: 200 lb 13.458 oz Body Mass Index (BMI) 33.4 Physical Exam Narrative Physical Examination: General: Awake, intermittently alert, alert her daughter who is present and some recent events but clearly confused, cooperative, fatigued, lying in the ED bed, notes pain is improved following recent morphine. Skin: Very mildly jaundiced color, normal turgor, no severely marked scleral icterus, no cyanosis. HEENT: AT/NC, EOMI, PERRLA, dry MM, no carotid bruits or JVD noted. Lungs: Diminished, greater bases, appropriate effort no rales, ronchi or wheezing. Heart: Currently regular rate and rhythm; no gallop, rub audible. Abdomen: Soft, no significant pain with palpation or any rebound or guarding but patient did have recent morphine administration, no marked distention, hyperactive bowel sounds, no obvious HSM. Extremities: No cyanosis, clubbing, or edema. Neurological: Patient awake, intermittently alert, oriented as noted, cognitive function not baseline intact; pupils equally reactive to light and accommodation, cranial nerves grossly normal, moving all 4 extremities, no focal deficits, strength moderately to severely globally decreased secondary to acute presentation, fatigued and mildly lethargic. Psychiatric: Affect appears fatigued, ill-appearing, no acute evidence of depressive or anxiety feelings but does have notable underlying history. Results Lab / Micro Data 05/12/23 21:20 05/12/23 21:20 Labs: Laboratory Results - last 24 hr 05/12/23 21:20: WBC 9.8, RBC 4.92, Hgb 14.7, Hct 45.6, MCV 92.7, MCH 29.9, MCHC 32.2, RDW Std Deviation 41.1, RDW Coeff of Sky 12.0, Plt Count 244, MPV 10.8, Immature Gran % (Auto) 0.700, Neut % (Auto) 82.1 H, Lymph % (Auto) 10.1 L, [place] % (Auto) 6.4, Eos % (Auto) 0.3, Baso % (Auto) 0.4, Absolute Neuts (auto) 8.0 H, Absolute Lymphs (auto) 0.99, Nucleated RBC % 0, PT 14.5, INR 1.1, APTT 28.7, Sodium 136, Potassium 4.1, Chloride 100, Carbon Dioxide 30.0, Anion Gap 6, BUN 13, Creatinine 1.19 H, Estim Creat Clear Calc 33.93, Est GFR (MDRD) Af Amer 56 L, Est GFR (MDRD) Non-Af 46 L, BUN/Creatinine Ratio 10.9, Glucose 169 H, Lactic Acid 1.4, Calcium 9.8, Total Bilirubin 3.20 H, AST 483 H, ALT 345 H, Alkaline Phosphatase 332 H, Total Protein 8.0, Albumin 3.3, Globulin 4.7 H, Albumin/Globulin Ratio 0.7 L 05/12/23 21:30: Urine Color Yellow, Urine Clarity Clear, Urine pH 7.0, Ur Specific [place] 1.010, Urine Protein 15 H, Urine Glucose (UA) Normal, Urine Ketones Negative, Urine Occult Blood 10 H, Urine Nitrite Negative, Urine Bilirubin Negative, Urine Urobilinogen 1 H, Ur Leukocyte Esterase Negative, Urine RBC 0 SEEN, Urine WBC 0 SEEN, Ur Squamous Epith Cells 0 SEEN, Urine Bacteria 0 SEEN, Urine Mucus 0 SEEN Radiology Impression Brain CT 05/12/23 21:57 IMPRESSION: undefined Chest X-Ray 05/12/23 22:10 IMPRESSION: No acute pulmonary disease. Electronically Signed: Elliot Ziegler MD at 23:27 EDT Reading Location ID and State: [address] [place] [address] Tel , Service support , Gallbladder Ultrasound 05/12/23 22:28 IMPRESSION: undefined Assessment & Plan Assessment/Plan (1) Fever: (2) Jaundice: (3) Acute encephalopathy: PLAN: Plan The patient is an 82 y/o F w/ PMHx: CKD stage III unclear subtype, Allergic rhinitis, CAD s/p CABG (JAY to the LAD, SVG sequential graft to the diagonal branch and OM 2, SVG to the PDA), PAF, HTN, HLD, MARIVEL, Diabetes mellitus type II, Former tobacco use, Depression and Anxiety, GERD, Hx VTE (DVT, PE), Hx CVA, Obesity who presents to the [facility] ED on 05/12/23 with history of onset of fever as well as altered mental status reportedly with temperature up to 102.9 of sudden onset worsening over the last several hours with decreased oral intake and a recent slight cough with chronic rhinorrhea and potentially recent blood noted in her urine falling off of the commode found between the commode and the wall with unclear head trauma prompting family to bring her in for evaluation. #1. Mechanical Fall secondary to Acute Encephalopathy secondary to Acute Hyperbilirubinemia/Transaminitis with associated status post prior cholecystectomy with possible mild intrahepatic biliary ductal dilatation with SIRS of unclear etiology: Will admit to medical surgical floor given stable VS, will maintain n.p.o. status on IV PPI given concern for still intra-abdominal component given hyperbilirubinemia/transaminitis and concern for infection, will maintain on IV Zosyn pending further workup and results, will obtain procalcitonin, will obtain hepatitis panel, will obtain COVID PCR, will obtain ammonia level, will trend CBC as well as CMP, gastroenterology consulted, pending. Of note patient CANNOT have an MRI secondary to device in place, although nonfunctional for her bladder. Also of note patient has severe psychiatric reaction with hallucinations to anesthetics as well as sedatives and notes even after her cardiac catheterization she had severe psychiatric issues. #2. CAD: Status post CABG, JAY to the LAD, SVG sequential graft to the diagonal branch and OM 2, SVG to the PDA, holding home apixaban regimen temporarily given acute presentation potential intervention needs, continue baby aspirin, holding statin given transaminitis with resumption once appropriate, continue metoprolol and losartan home regimen. #3. Diabetes mellitus type II: Hold oral home regimen, continue home insulin regimen although given presentation low threshold to decrease to one half dose if necessary, n.p.o. status with every 6 hours accu checks w/ ISS. #4. PAF: We will continue patient home metoprolol regimen, holding home apixaban regimen given acute presentation as noted #1, add back once appropriate. #5. Hypertension: Continue home regimen including losartan, metoprolol, PRN hydralazine. #6. Hyperlipidemia: Given significant hyperbilirubinemia and transaminitis we will temporally hold patient statin therapy, add back once appropriate. #7. Anxiety and depression: We will temporarily hold her home low-dose alprazolam but immediately once mental status improved would restart especially given prior history of withdrawal. Will continue home escitalopram regimen. Given significant fatigue and altered status we will hold nightly high-dose trazodone at this time. #8. Allergic rhinitis: We will continue patient home montelukast regimen. #9. Former tobacco use: Encourage continued tobacco cessation. #10. History of VTE: Patient with history in the chart reported DVT, PE, temporally holding apixaban regimen given acute presentation in case of intervention needs. #11. History CVA: CT head as noted with small old infarct in the right frontal lobe stable since prior imaging, Will continue baby aspirin, holding chronic home apixaban regimen as noted with resumption once appropriate, temporally holding statin also given significant transaminitis with resumption once appropriate, continue hypertensive regimen and diabetic regimen with alterations as noted. #12. Obesity: Weight loss and lifestyle changes encouraged. #13. GERD: We will maintain on IV PPI. #14. Chronic Kidney Disease Stage III, unclear subtype: Admission BUN/Cr 13/1.19, baseline renal function primarily 0.8-1.2, repeat BMP in AM. #15. MARIVEL: CPAP nightly. #16. DVT prophylaxis: SCDs, holding home chronic apixaban regimen secondary to #1. #17. CODE status: Patient JAHAIRA is her son and living will is currently in place. Discussed CODE status at length including difference between FULL code, DNR-CCA and DNR-CC status. Following discussions about the differences in these status, requested DNR-CCA, no intubation status. Advanced Care Planning Face to Face Time: 16 minutes. Charges/Coding Visit Charges Inpatient E&M: 89021 Init Hosp L3 Procedures Hospitalists Procedures: 85100 Advncd Care Plan 30 Min
[2023-05-13] MEDS: Morphine 4 MG/ML Syringe IV (00:54)
[2023-05-13] MEDS: 0.9% Normal Saline 1,000 ML 100 ML IV (02:46)
[2023-05-13 03:02] LABS: Procalcitonin 2.29 ng/mL (0.00-0.09)
[2023-05-13 03:09] LABS: Absolute Lymphocyte Count 1.66 X10^3/uL (0.83-4.51); Absolute Neutrophil Count 8.2 X10^3/uL (2.0-7.7); Basophil# 0.04 X10^3/uL; Basophil% 0.4 % (0-1); Eosinophil# 0.02 X10^3/uL; Eosinophils% 0.2 % (0-5); Hematocrit 41.9 % (37-47); Hemoglobin 13.3 g/dL (12.0-15.0); Lymphocyte # 1.66 X10^3/ul (0.83-4.51); Lymphocyte % 15.5 % (19-41); Mean Corp Hgb Conc 31.7 g/dL (32-36); Mean Corpuscular Hgb 30.1 pg (27.0-32.0); Mean Corpuscular Volume 94.8 fL (81-99); Mean Platelet Vol. 10.4 fl (6.2-12.0); Monocyte% 6.5 % (0-10); NRBC Flagged by Analyzer 0 % (0-5); Neutrophil # 8.24 X10^3/uL (2.7-7.7); Neutrophil % 77.1 % (47-70); Platelet Count 278 K/mm3 (150-450); RBC Distribution Width CV 12.2 % (11.6-14.6); RBC Distribution Width SD 42.5 fl (35.1-43.9); Red Blood Count 4.42 M/mm3 (4.2-5.4); White Blood Count 10.7 K/mm3 (4.4-11.0)
[2023-05-13 03:25] LABS: ALB/GLOB Ratio 0.6 RATIO (0.9-2.4); AST(SGOT) 372 U/L (15-37); Alanine Aminotransfer ALT/SGPT 298 U/L (13-56); Albumin, Serum 2.8 g/dL (3.2-5.0); Alkaline Phosphatase 281 U/L (45-117); Anion Gap 6 (5-15); BUN 14 mg/dL (7-18); BUN/Creat Ratio 10.9 RATIO (10-20); Calcium,Total 9.2 mg/dL (8.5-10.1); Chloride 104 mmol/L (98-107); Creatinine, Serum 1.28 mg/dL (0.55-1.02); EST Glomerular Filtration Rate 43 mL/min (>60); Est Glom Filt Rate - Afr Amer 52 mL/min (>60); Estimated Creatinine Clearance 27.72 ml/min; Globulin 4.4 g/dL (2.2-4.2); Glucose 146 mg/dL (74-106); Potassium 4.1 mmol/L (3.5-5.1); Protein, Total 7.2 g/dL (6.4-8.2); Sodium Level 139 mmol/L (136-145)
[2023-05-13 03:27] LABS: Bedside Glucose 155 mg/dL (74-106)
[2023-05-13] MEDS: Insulin Lispro 100 UNIT/ML INSULN.PEN SC (03:37)
[2023-05-13] MEDS: Acetaminophen 325 MG Tablet 650 MG PO (04:01)
[2023-05-13] MEDS: Pramipexole Di-HCl 0.5 MG Tablet PO (06:15)
--- NOTE | 2023-05-13 07:09 | PN.HOSP_ITS ---
Reason for Visit Reason for Visit: Fever/nausea vomiting/confusion Subjective Subjective Mrs. Galo is an 82-year-old white female with a complicated past medical history who presented to the emergency department at [facility] late last evening on 05/12/2023 with fevers as well as altered mental status. She was reported to have a temperature of 102.9 of sudden onset that was worsening. She had decreased oral intake and a slight cough with chronic rhinorrhea. She had fallen off the toilet and was found between the toilet and the wall which prompted her family to bring her in for evaluation. She did not recall any of these events and was very confused on presentation. Family reported she had an episode of nausea and vomiting about 2 weeks ago that lasted about 3 days but she had no associated fever. Upon presentation she had a tem perature of 100.1, heart rate 83, blood pressure was 169/91, respiratory rate 16 and oxygen saturations were 92% on room air. She was subsequently placed on 2 L nasal cannula which improved her saturations to 97%. Her CBC was unremarkable however she did have a left shift with an 82.1% neutrophilia. Coags were normal. Chemistry panel showed normal lites with a creatinine of 1.19 and a glucose of 169. The patient is diabetic at baseline. Her transaminases were markedly elevated with a total bilirubin of 3.2, AST of 483, ALT of 345 and an alk phos of 332. Her ammonia level is normal. Her procalcitonin was 2.29. Her lactic acid was within normal limits at 1.4. Chest x-ray showed no acute cardiopulmonary processes. Right upper quadrant ultrasound was performed which showed history of cholecystectomy and possible mild intrahepatic biliary duct dilation. COVID testing is negative. Blood and urine cultures were drawn in the emergency department and are pending. She was started on Zosyn and will add vancomycin until we can delineate the etiology of her fever. Objective Data Objective Data Vital Signs: Vital Signs Temp Pulse Resp BP Pulse Ox O2 Del Method O2 Flow Rate 97.9 F 50 L 16 107/51 L 94 Nasal Cannula 2 05/13/23 03:40 05/13/23 03:40 05/13/23 03:40 05/13/23 03:40 05/13/23 03:40 05/13/23 03:40 05/13/23 03:40 Oxygen Flow Rate (L/min) 2 Oxygen Delivery Method Nasal Cannula Weight: 88 kg Body Mass Index (BMI) 35.6 Intake & Output: Intake and Output for Last 24 Hours 05/11/23 05/12/23 05/13/23 23:59 23:59 23:59 Intake Total 310 / 310 Balance 310 / 310 Lab / Micro Data 05/13/23 02:55 05/13/23 02:55 Labs: Laboratory Results - last 24 hr 05/12/23 21:20: WBC 9.8, RBC 4.92, Hgb 14.7, Hct 45.6, MCV 92.7, MCH 29.9, MCHC 32.2, RDW Std Deviation 41.1, RDW Coeff of Sky 12.0, Plt Count 244, MPV 10.8, Immature Gran % (Auto) 0.700, Neut % (Auto) 82.1 H, Lymph % (Auto) 10.1 L, [place] % (Auto) 6.4, Eos % (Auto) 0.3, Baso % (Auto) 0.4, Absolute Neuts (auto) 8.0 H, Absolute Lymphs (auto) 0.99, Nucleated RBC % 0, PT 14.5, INR 1.1, APTT 28.7, Sodium 136, Potassium 4.1, Chloride 100, Carbon Dioxide 30.0, Anion Gap 6, BUN 13, Creatinine 1.19 H, Estim Creat Clear Calc 33.93, Est GFR (MDRD) Af Amer 56 L , Est GFR (MDRD) Non-Af 46 L, BUN/Creatinine Ratio 10.9, Glucose 169 H, Lactic Acid 1.4, Calcium 9.8, Total Bilirubin 3.20 H, AST 483 H, ALT 345 H, Alkaline Phosphatase 332 H, Total Protein 8.0, Albumin 3.3, Globulin 4.7 H, Albumin/Globulin Ratio 0.7 L 05/12/23 21:30: Urine Color Yellow, Urine Clarity Clear, Urine pH 7.0, Ur Specific [place] 1.010, Urine Protein 15 H, Urine Glucose (UA) Normal, Urine Ketones Negative, Urine Occult Blood 10 H, Urine Nitrite Negative, Urine Bilirubin Negative, Urine Urobilinogen 1 H, Ur Leukocyte Esterase Negative, Urine RBC 0 SEEN, Urine WBC 0 SEEN, Ur Squamous Epith Cells 0 SEEN, Urine Bacteria 0 SEEN, Urine Mucus 0 SEEN 05/13/23 02:16: Procalcitonin 2.29 H 05/13/23 02:55: WBC 10.7, RBC 4.42, Hgb 13.3, Hct 41.9, MCV 94.8, MCH 30.1, MCHC 31.7 L, RDW Std Deviation 42.5, RDW Coeff of Sky 12.2, Plt Count 278, MPV 10.4, Immature Gran % (Auto) 0.300, Neut % (Auto) 77.1 H, Lymph % (Auto) 15.5 L, [place] % (Auto) 6.5, Eos % (Auto) 0.2, Baso % (Auto) 0.4, Absolute Neuts (auto) 8.2 H, Absolute Lymphs (auto) 1.66, Nucleated RBC % 0, Sodium 139, Potassium 4.1, Chloride 104, Carbon Dioxide 29.0, Anion Gap 6, BUN 14, Creatinine 1.28 H, Estim Creat Clear Calc 27.72, Est GFR (MDRD) Af Amer 52 L, Est GFR (MDRD) Non-Af 43 L, BUN/Creatinine Ratio 10.9, Glucose 146 H, Calcium 9.2, Total Bilirubin 3.40 H, AST 372 H, ALT 298 H, Alkaline Phosphatase 281 H, Ammonia 15.0, Total Protein 7.2, Albumin 2.8 L, Globulin 4.4 H, Albumin/Globulin Ratio 0.6 L 05/13/23 03:00: POC Glucose 155 H Micro: Microbiology 05/13/23 02:15 Mucosa - Nasopharyngeal Coronavirus COVID-19 PCR - Final Radiography Diagnostic Testing: Radiology Impression Brain CT 05/12/23 21:57 IMPRESSION: undefined Chest X-Ray 05/12/23 22:10 IMPRESSION: No acute pulmonary disease. Electronically Signed: Elliot Ziegler MD at 23:27 EDT , Gallbladder Ultrasound 05/12/23 22:28 IMPRESSION: undefined Assessment & Plan Assessment/Plan (1) Fever: (2) Jaundice: (3) Acute encephalopathy: (4) Transaminitis: (5) Elevated serum creatinine: (6) Immunosuppression due to drug therapy: (7) Hypotension: PLAN: Plan Fever -Etiology is currently unclear -Procalcitonin elevated at 2.2 -Cultures pending -Continue Zosyn -Add vancomycin -Check MRSA PCR -COVID is negative -Patient is immunosuppressed at baseline on Tremfya for psoriasis -Will hold for now -Hepatitis panel is pending with transaminitis Relative hypotension -Upon chart review patient appears to have a baseline blood pressure with systolic between 130 and 160 and diastolic between 70 and 90 -Current blood pressure is 107/51 -With fever and concern for infection will bolus at 30 cc/kg of body weight with sepsis guidelines -Renal function has worsened despite being on normal saline at 100 cc/h -Check stat lactic acid with blood pressure trending down and worsening renal function and bilirubin -Antibiotics as above -Cultures pending Transaminitis/jaundice -Total bilirubin is 3.4 -AST and ALT are both elevated but have slightly trended down -Ammonia levels normal -Ultrasound shows duct dilation -Unable to do MRCP due to device implant -Continue Zosyn -Check tox screen -Check Tylenol level -Check serum alcohol level -Hepatitis panel pending -GI consult pending Toxic/metabolic encephalopathy -Likely related to the above -Ammonia levels within normal limits -Will monitor and should improve as infectious etiology is identified and treated adequately Elevated serum on creatinine CKD stage II -Currently 1.28 -Baseline appears to be between 0.8 and 1.0 therefore does not meet criteria for MONICA at this time however close -Continue IV fluids -Stop Lasix Fall -Likely related to acute illness - PT/OT consultation MARIVEL -Patient is untreated due to her resistance to CPAP -Continue nocturnal oxygen as needed to keep sats greater than 88% CAD/HTN/HPL -CABG-->JAY to LAD, SVG to OM2 and sequetially to diagonal, SVG to PDA 06/01/17 -Hold metoprolol and losartan for relative hypotension -Continue aspirin -Hold statin with transaminitis -Hold Lasix with relative hypotension and worsening renal function -Restart medications when medically appropriate -As needed hydralazine available if blood pressure trends up PAF -Currently in normal sinus rhythm -Hold metoprolol for relative hypotension -Apixaban on hold in case any need for procedures -Will restart apixaban once we delineate more what is the etiology of her current illness and exclude any procedures being needed -Restart metoprolol once blood pressure allows DM-2 -Continue home Lantus at 40 units nightly--> if patient has limited p.o. intake may need to decrease dose -SSI as ordered -Accu-Cheks Allergic rhinitis -Continue home Singulair History of DVT/PE -Start prophylactic dosing with enoxaparin while off Eliquis -Will restart Eliquis as soon as we deem no medical procedures will need to be pursued History of stroke -Continue home aspirin -CT head shows small old infarct in the right frontal lobe that is stable -Holding apixaban and statin at this time GERD -Continue PPI but utilize IV for now Anxiety/depression -Continue home Xanax will restart to avoid withdrawal as she takes this regularly -Continue home Lexapro -Hold home trazodone until mental status improves Restless leg syndrome -Continue Requip Neuropathy -Continue Topamax Psoriasis -Hold home Tremfya with acute infection DVT prophylaxis -Holding apixaban -Start Eliquis prophylactically and restart apixaban when medically appropriate CODE STATUS -DNR CCA with no intubation
--- NOTE | 2023-05-13 07:24 | EX.PCM.CON.G ---
HPI Consult Data Date of Consult: 05/12/23 HPI Narrative Reason for Consultation: Jaundice and fever HPI Narrative: FRANK GARCÍA, is a 82 F who presents with altered mental status and document temperature 102.9. She has had decreased p.o. intake. Decreased awareness and orientation from normal per family member. Patient has a chronic runny nose. She had a slight cough. She has had some urologic issues and may have noted blood. Apparently patient fell from the commode. She was found between the commode and the wall. She is on anticoagulant and may have hit her head. She cannot remember if she did or did not hit her head. Her daughter reports that 2 weeks prior to current presentation she had similar N/V bout that lasted 3 days although no fever associated and seemed to improve at that time. Workup in the ED included T1 100.1, heart rate 83, BP 169/91, respiratory rate 16, 92% on room air--> T99.6, heart rate 82, BP 144/74, respiratory rate 18, 97% on 2 L nasal cannula,, CBC with WBC 9.8, hemoglobin 14.7, platelet 244 with left shift, unremarkable coags, CMP with BUN/creatinine 13/1.19, glucose 169, lactic acid 1.4, T. bili 3.20, AST/ALT 43/345, alk phos 332, urinalysis unremarkable, CT of the brain with evidence of a small old infarct in the right frontal lobe stable since prior with no acute intracranial findings, chest x-ray with no acute cardiopulmonary findings, gallbladder ultrasound evidence status postcholecystectomy with possible mild intrahepatic biliary ductal dilatation, urine culture and blood culture x 2 pending She has a history of underlying CAD, CABG, (JAY to the LAD, SVG sequential graft to the diagonal branch and OM 2, SVG to the PDA), paroxysmal atrial fibrillation, hyperlipidemia, and hypertension superimposed on diabetes mellitus and MARIVEL. 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 Morbid obesity MARIVEL (obstructive sleep apnea) Osteoarthritis Paroxysmal atrial fibrillation Pulmonary embolism Stroke Home Medications aspirin 81 mg tablet,delayed release 81 mg PO QDAY blood thinner 11/03/17 [History Last Taken Unknown] atorvastatin 40 mg tablet 40 mg PO QDAY cholesterol #30 tabs 03/02/18 [Rx Last Taken Unknown] alprazolam 0.5 mg tablet 0.5 mg PO 4X/DAY anxiety 11/23/19 [History Last Taken 05/12/23] montelukast 10 mg tablet 10 mg PO DAILY allergies 12/29/20 [History Last Taken Unknown] nitroglycerin 0.4 mg sublingual tablet (Nitrostat) 0.4 mg sublingual Q5-15M PRN chest pain #25 tabs 10/21/21 [Rx Last Taken Unknown] BP cuff #1 ea 01/20/22 [Rx Last Taken Unknown] cholecalciferol (vitamin D3) 125 mcg (5,000 unit) capsule 125 mcg PO DAILY vitamin 01/20/22 [History Last Taken Unknown] escitalopram oxalate 10 mg tablet (Lexapro) 10 mg PO DAILY depression 01/20/22 [History Last Taken Unknown] topiramate 100 mg tablet 50 mg PO BID nerve pain 01/20/22 [History Last Taken Unknown] acetaminophen 500 mg tablet (Tylenol Extra Strength) 1,000 mg PO Q4H PRN pain 05/19/22 [History Last Taken Unknown] hydrocodone-acetaminophen 5-325mg 5mg-325mg ([place]) 1 tab PO Q12H PRN Pain 1-10 Or Fever 05/19/22 [History Last Taken Unknown] insulin degludec 200 unit/mL (3 mL) subcutaneous pen 40 unit subcut QHS diabetes 05/19/22 [History Last Taken Unknown] ropinirole 1 mg tablet 2 mg PO BID pain 05/19/22 [History Last Taken Unknown] trazodone 150 mg tablet 300 mg PO QHS sleep 05/19/22 [History Last Taken Unknown] apixaban 5 mg tablet (Eliquis) 5 mg PO DAILY blood thinner 04/20/23 [History Last Taken 05/12/23] fesoterodine 4 mg tablet,extended release 24 hr 4 mg PO DAILY unknown 04/20/23 [History Last Taken Unknown] losartan 25 mg tablet 25 mg PO DAILY BP #30 tabs 04/20/23 [Rx Last Taken Unknown] vibegron 75 mg tablet (Gemtesa) 75 mg PO DAILY unknown 04/20/23 [History Last Taken Unknown] furosemide 20 mg tablet 20 mg PO DAILY water pill 05/12/23 [History Last Taken Unknown] guselkumab 100 mg/mL subcutaneous auto-injector (Tremfya) 100 mg subcut .[id number] psoriasis 05/12/23 [History Last Taken Unknown] tizanidine 4 mg capsule 4 mg PO Q8H spasms 05/12/23 [History Last Taken Unknown] metoprolol succinate 50 mg tablet,extended release 24 hr 25 mg PO DAILY BP 05/13/23 [History Last Taken Unknown] Allergy/AdvReac Type Severity Reaction Status Date / Time insulin isophane (NPH) Allergy Severe heart burn Verified 05/12/23 20:52 Anesthetics - Amide Type - Allergy NEEDS Verified 05/12/23 20:52 Select A FOLLOW-UP Anesthetics - Tyra Type- Allergy NEEDS Verified 05/12/23 20:52 Parabens FOLLOW-UP latex Allergy Unknown Verified 05/12/23 20:52 promethazine [From Phenergan] Allergy PT UNSURE Verified 05/12/23 20:52 OF REACTION sitagliptin phosphate Allergy Unknown Verified 05/12/23 20:52 [From Januvia] insulin degludec AdvReac Mild Nausea Verified 05/12/23 20:52 [From Xultophy 100/3.6] liraglutide AdvReac Mild Nausea Verified 04/20/23 14:41 [From Xultophy 100/3.6] atorvastatin [From Lipitor] AdvReac Unknown Unknown Verified 05/12/23 20:52 codeine AdvReac Unknown Unknown Verified 05/12/23 20:52 tizanidine AdvReac Unknown Unknown Verified 05/12/23 20:52 Family History Father CAD (coronary artery disease) Mother CAD (coronary artery disease) Brother CAD (coronary artery disease) Surgical History H/O coronary artery bypass surgery (~06/01/17) History of bilateral cataract extraction History of cholecystectomy History of knee surgery History of total hysterectomy Social History (Updated 05/13/23 @ 01:[address] Octavia Gruber MD) household members: none housing: assisted living facility Smoking Status: Former smoker how long ago did patient quit smokin years ago second hand exposure: Yes alcohol intake: never substance use type: does not use caffeine: No ROS ROS Narrative Admission Review of Systems: CONSTITUTIONAL: No weight loss, + fever, chills, weakness or fatigue. HEENT: + Chronic rhinorrhea. Eyes: No visual loss, blurred vision, double vision. Ears, Nose, Throat: No hearing loss, sneezing, congestion or sore throat. SKIN: + Jaundice. No rash or itching, lesions, wounds. CARDIOVASCULAR: No chest pain, chest pressure or chest discomfort, palpitations, edema, orthopnea, syncopal events. RESPIRATORY: + shortness of breath, cough without marked sputum. No wheezing, hemoptysis. GASTROINTESTINAL: + anorexia, nausea, vomiting. No diarrhea, abdominal pain, melena, BRBPR. GENITOURINARY: No dysuria, frequency, urgency or retention. NEUROLOGICAL: + Confusion. No headache, dizziness, syncope, paralysis, ataxia, numbness or tingling in the extremities, focal weakness, change in bowel or bladder control, seizure. MUSCULOSKELETAL: + muscle, back pain, joint pain or stiffness. HEMATOLOGIC: + Easy bleeding/bruising. LYMPHATICS: No enlarged nodes. No history of splenectomy. PSYCHIATRIC: + history of depression or anxiety. ENDOCRINOLOGIC: No reports of sweating, cold or heat intolerance. No polyuria or polydipsia. ALLERGIES: + History allergic rhinitis. Physical Exam Narrative Physical Examination: General: Awake, intermittently alert, alert her daughter who is present Skin: Very mildly jaundiced color, normal turgor, no severely marked scleral icterus, no cyanosis. HEENT: AT/NC, EOMI, PERRLA, dry MM, no carotid bruits or JVD noted. Lungs: Diminished, greater bases, appropriate effort no rales, ronchi or wheezing. Heart: Currently regular rate and rhythm; no gallop, rub audible. Abdomen: Soft, no significant pain with palpation or any rebound or guarding but patient did have recent morphine administration, no marked distention, hyperactive bowel sounds, no obvious HSM. Extremities: No cyanosis, clubbing, or edema. Neurological: Patient awake, intermittently alert, oriented as noted, cognitive function not baseline intact; pupils equally reactive to light and accommodation, cranial nerves grossly normal, moving all 4 extremities, no focal deficits, strength moderately to severely globally decreased secondary to acute presentation, fatigued and mildly lethargic. Psychiatric: Affect appears fatigued, ill-appearing, no acute evidence of depressive or anxiety feelings but does have notable underlying history. Lab / Micro Data 05/13/23 02:55 05/13/23 02:55 Labs: Laboratory Results - last 24 hr 05/12/23 21:20: WBC 9.8, RBC 4.92, Hgb 14.7, Hct 45.6, MCV 92.7, MCH 29.9, MCHC 32.2, RDW Std Deviation 41.1, RDW Coeff of Sky 12.0, Plt Count 244, MPV 10.8, Immature Gran % (Auto) 0.700, Neut % (Auto) 82.1 H, Lymph % (Auto) 10.1 L, [place] % (Auto) 6.4, Eos % (Auto) 0.3, Baso % (Auto) 0.4, Absolute Neuts (auto) 8.0 H, Absolute Lymphs (auto) 0.99, Nucleated RBC % 0, PT 14.5, INR 1.1, APTT 28.7, Sodium 136, Potassium 4.1, Chloride 100, Carbon Dioxide 30.0, Anion Gap 6, BUN 13, Creatinine 1.19 H, Estim Creat Clear Calc 33.93, Est GFR (MDRD) Af Amer 56 L, Est GFR (MDRD) Non-Af 46 L, BUN/Creatinine Ratio 10.9, Glucose 169 H, Lactic Acid 1.4, Calcium 9.8, Total Bilirubin 3.20 H, AST 483 H, ALT 345 H, Alkaline Phosphatase 332 H, Total Protein 8.0, Albumin 3.3, Globulin 4.7 H, Albumin/Globulin Ratio 0.7 L 05/12/23 21:30: Urine Color Yellow, Urine Clarity Clear, Urine pH 7.0, Ur Specific [place] 1.010, Urine Protein 15 H, Urine Glucose (UA) Normal, Urine Ketones Negative, Urine Occult Blood 10 H, Urine Nitrite Negative, Urine Bilirubin Negative, Urine Urobilinogen 1 H, Ur Leukocyte Esterase Negative, Urine RBC 0 SEEN, Urine WBC 0 SEEN, Ur Squamous Epith Cells 0 SEEN, Urine Bacteria 0 SEEN, Urine Mucus 0 SEEN 05/13/23 02:16: Procalcitonin 2.29 H 05/13/23 02:55: WBC 10.7, RBC 4.42, Hgb 13.3, Hct 41.9, MCV 94.8, MCH 30.1, MCHC 31.7 L, RDW Std Deviation 42.5, RDW Coeff of Sky 12.2, Plt Count 278, MPV 10.4, Immature Gran % (Auto) 0.300, Neut % (Auto) 77.1 H, Lymph % (Auto) 15.5 L, [place] % (Auto) 6.5, Eos % (Auto) 0.2, Baso % (Auto) 0.4, Absolute Neuts (auto) 8.2 H, Absolute Lymphs (auto) 1.66, Nucleated RBC % 0, Sodium 139, Potassium 4.1, Chloride 104, Carbon Dioxide 29.0, Anion Gap 6, BUN 14, Creatinine 1.28 H, Estim Creat Clear Calc 27.72, Est GFR (MDRD) Af Amer 52 L, Est GFR (MDRD) Non-Af 43 L, BUN/Creatinine Ratio 10.9, Glucose 146 H, Hemoglobin A1c 7.0 H, Calcium 9.2, Total Bilirubin 3.40 H, AST 372 H, ALT 298 H, Alkaline Phosphatase 281 H, Ammonia 15.0, Total Creatine Kinase 41, Total Protein 7.2, Albumin 2.8 L, Globulin 4.4 H, Albumin/Globulin Ratio 0.6 L 05/13/23 03:00: POC Glucose 155 H 05/13/23 07:57: Lactic Acid 0.9, Acetaminophen < 2.0 L, Ethyl Alcohol < 3.0 05/13/23 08:33: POC Glucose 81 05/13/23 10:05: Urine Opiates Screen POSITIVE H, Urine Methadone Screen NEGATIVE, Ur Barbiturates Screen NEGATIVE, Ur Phencyclidine Scrn NEGATIVE, Ur Amphetamines Screen NEGATIVE, MDMA (Ecstasy) Screen POSITIVE H, U Benzodiazepines Scrn POSITIVE H, Urine Cocaine Screen NEGATIVE, U Cannabinoids Screen NEGATIVE, Ur Drug Screen Comment 05/13/23 11:56: POC Glucose 68 L 05/13/23 12:42: POC Glucose 157 H Micro: Microbiology 05/13/23 02:15 Mucosa - Nasopharyngeal Coronavirus COVID-19 PCR - Final Radiology Impression Brain CT 05/12/23 21:57 IMPRESSION: undefined Chest X-Ray 05/12/23 22:10 IMPRESSION: No acute pulmonary disease. Electronically Signed: Elliot Ziegler MD at 23:27 EDT , Gallbladder Ultrasound 05/12/23 22:28 IMPRESSION: undefined Abdomen/Pelvis CT 05/13/23 08:52 IMPRESSION: Sigmoid diverticulosis. Fatty infiltration of the liver. Dilated intrahepatic biliary clips more prominent in the left lobe. Atelectasis in the left lobe of liver. A repeat sonogram of the liver is recommended for evaluation. Coronary calcification. Electronically Signed: Florencio Robert MD at 12:10 EDT , Lumbar Spine CT 05/13/23 12:30 IMPRESSION: Multilevel degenerative changes, as described above. Electronically Signed: Florencio Robert MD at 13:30 EDT , Assessment & Plan Assessment/Plan (1) Fever: (2) Jaundice: (3) Acute encephalopathy: PLAN: Plan The patient is an 82 y/o who presents to the [facility] ED on 05/12/23 with history of onset of fever as well as altered mental status reportedly with temperature up to 102.9 of sudden onset worsening over the last several hours with decreased oral intake and a recent slight cough with chronic rhinorrhea Acute Encephalopathy possibly econdary to acute non viral hepatitis , obstructive jaundice secondary to choledocholithiasis. She had a CT scan of the abdomen pelvis that showed ductal dilation of the extrahepatic and intrahepatic ductal system. Typically we will get an MRCP to evaluate her hepatobiliary system but she cannot get it because of a device in place for her bladder. Therefore she will undergo ERCP. The patient and patient's family were explained alternatives, risk, benefits including not withstanding bleeding, infection, sepsis, perforation, and post ERCP pancreatitis. She will have an ASA of 4 for the procedure. Continue empiric antibiotic therapy. Charges/Coding Visit Charges Inpatient E&M: 09663 Init Hosp L3
[2023-05-13 08:12] LABS: CPK Total, Creatine Kinase 41 U/L (26-192)
[2023-05-13 08:33] LABS: Alcohol, Blood (Medical)-Serum < 3.0 mg/dL
[2023-05-13 08:36] LABS: Acetaminophen (Tylenol) Level < 2.0 ug/mL (10.0-30.0)
[2023-05-13 08:37] LABS: Lactic Acid 0.9 mmol/L (0.4-1.9)
--- NOTE | 2023-05-13 08:37 | NURSING ---
@ approx 0750 this nurse spoke w/ Luiza in MRI and informed her that pt states she can not have an MRI d/t something placed in back by dr brown
[2023-05-13 08:52] LABS: Bedside Glucose 81 mg/dL (74-106)
--- NOTE | 2023-05-13 08:52 | CT_ITS ---
STUDY: CT ABDOMEN AND PELVIS WITH CONTRAST REASON FOR EXAM: Female, 82 years old. LLQ pain -- IV and PO RADIATION DOSAGE (If Supplied By Facility): CTDIvol = ( 20.28 ) mGy, DLP = ( 1096.34 ) mGycm TECHNIQUE: Transaxial images were obtained from the dome of the diaphragm to the symphysis pubis with oral contrast. Gastrografin and amp; 100mL Isovue 370 was administered. Sagittal and coronal images were reconstructed. Individualized dose optimization techniques were used for this CT. COMPARISON: None. FINDINGS: Mild increased linear markings of the lung bases suggestive of scarring.. Status post coronary artery bypass surgery. Coronary artery calcification. There is decreased attenuation of the liver consistent with steatosis. Abnormal appearance of the left lobe of liver suggestive of a prominent intrahepatic biliary ductal dilatation. A repeat sonogram with attention to the left lobe of the liver is recommended There are surgical clips in the gallbladder fossa consistent with a prior cholecystectomy. Mild degree of intrahepatic biliary ductal dilatation. Normal spleen. Normal pancreas. Normal bilateral adrenal glands. Normal right kidney. Normal left kidney. Normal visualized stomach. Normal small intestine. There are multiple colonic diverticula consistent with diverticulosis. The appendix is visualized and appears normal. There is diffuse atherosclerotic calcification of the abdominal aorta and its major visceral branches, without a demonstrated aneurysm. Normal inferior vena cava. Normal retroperitoneum. Normal urinary bladder. There is absence of the uterus consistent with a prior hysterectomy. Normal abdominal wall. Normal osseous structures. CT/Abdomen/Pelvis WITH Contrast IMPRESSION: Sigmoid diverticulosis. Fatty infiltration of the liver. Dilated intrahepatic biliary clips more prominent in the left lobe. Atelectasis in the left lobe of liver. A repeat sonogram of the liver is recommended for evaluation. Coronary calcification. Electronically Signed: Florencio Robert MD at 12:10 EDT ,
--- NOTE | 2023-05-13 09:13 | CASEMGMT ---
Social Work SW let pt and know that she cannot go to TCU. SW provided to a list of acute rehab facilities in network w/pt's insurance, in pt's preferred geographic area and complete with quality and resource use data. SW let them know we could try for rehab possibly, SW did explain however that it's uncertain whether or not insurance would cover rehab. SW did explain briefly the difference between SNF and rehab. Pt is getting ready to go to surgery at present however so conversation brief. SW did ask them to choose additional SNF options as well. Pt and state understanding. SW to follow up postoperatively regarding SNF choices vs. possible rehab referral. SILKE Graham
[2023-05-13] MEDS: 0.9% Normal Saline 1,000 ML 999 ML IV ×3 (09:45→12:02)
[2023-05-13] MEDS: Menthol/Lanolin/Calamine/Znox 113 GM Tube 1 APPLIC TOPICAL ×2 (09:49→21:32)
[2023-05-13] MEDS: Aspirin E.C. 81 MG Tablet PO (09:51)
[2023-05-13] MEDS: Nystatin Powder 15gm Bottle 1 APPLIC TOPICAL ×2 (09:52→21:32)
[2023-05-13] MEDS: Pramipexole Di-HCl 1 MG Tablet PO ×2 (09:52→21:33)
[2023-05-13] MEDS: Escitalopram Oxalate 10 MG Tablet PO (09:52)
[2023-05-13] MEDS: Montelukast 10 MG Tablet PO (09:54)
[2023-05-13] MEDS: Topiramate 50 MG Tablet PO ×2 (09:54→21:33)
[2023-05-13] MEDS: Metoprolol(XL)Succ 25 MG Tablet PO (09:55)
--- NOTE | 2023-05-13 10:04 | PCM.RX.CS ---
Consult Antibiotic Management Pharmacy has been consulted to manage selected antiobiotic: Vancomycin Type of Intervention Type of Consult: New start Suspected Infection Suspected Infection: Other (EMPIRIC/FEVER) Prior Doses of Antibiotics Prior Doses of Antibiotics Received/Current Regimen: Vancomycin 1250 mg IV x 1 given 05/13/23 @ 0948 Pt is also on zosyn Labs Labs: Sodium 139 mmol/L (136-145) 05/13/23 02:55 Potassium 4.1 mmol/L (3.5-5.1) 05/13/23 02:55 Chloride 104 mmol/L (98-107) 05/13/23 02:55 Carbon Dioxide 29.0 mmol/L (21.0-32.0) 05/13/23 02:55 Anion Gap 6 (5-15) 05/13/23 02:55 BUN 14 mg/dL (7-18) 05/13/23 02:55 Creatinine 1.28 mg/dL (0.55-1.02) H 05/13/23 02:55 Est GFR (MDRD) Af Amer 52 mL/min (>60) L 05/13/23 02:55 Est GFR (MDRD) Non-Af 43 mL/min (>60) L 05/13/23 02:55 BUN/Creatinine Ratio 10.9 RATIO (10-20) 05/13/23 02:55 Glucose 146 mg/dL (74-106) H 05/13/23 02:55 Microbiology Microbiology: Microbiology 05/13/23 02:15 Mucosa - Nasopharyngeal Coronavirus COVID-19 PCR - Final Dosing Weight Weight used for dosin kg Estimated Creatinine Clearance Estimated Creatinine Clearance: ~27 ml/min Goal Trough Goal Trough: 15-20 mcg/mL Pharmacy Plan for Drug Dosing Pharmacy Plan for Drug Dosin mg vancomycin IV x 1 initial dose, followed by 1000 mg IV q24h starting 05/14/32 @ 1000 trough prior to 3rd dose. Pharmacy Service will continue to monitor and adjust dosing as required. Follow-Up Labs Follow-Up Labs: Trough: Vancomycin Date/Time Labs Ordered Labs to be done on [date and time ordered]: 05/15/23 @ 0930
--- NOTE | 2023-05-13 10:45 | CASEMGMT ---
Social Work Pt is here from [place]. SW met w/pt, she confirms would like to return to [place] at discharge. Pt gets around there with a walker. Pt organizes her own medications there, she states [facility] charges $975 a month to organize medications. Pt does feel that she can manage at [place], though states her leg has been giving out on her. Pt states it has been happening for 6 months. She has had home health in the past for it, she is not interested in home health at this time however. Pt states has been at [place] about a year. She has not been to a fdc in the past. SW inquired about when pt is ready to return to [place], if pt's family will take her back or if she would need transport. We discussed the cost of transport, pt thinks that her family will be able to bring her back. Pt states uses [facility] for medication, and uses [facility] in [place] for any short term medications. Pt's PT and OT are still pending. IRINA asked community development planner Sasha to send updates to [place] and to follow up to see if they can take pt. SW will continue to follow. SILKE Graham
[2023-05-13 10:51] LABS: Amphetamine Urine VISTA NEGATIVE (<1000 ng/mL); Barbiturate Urine VISTA NEGATIVE (< 200 ng/mL); Benzodiazepine Urine VISTA POSITIVE (< 200 ng/mL); Cocaine Urine VISTA NEGATIVE (< 300 ng/mL); Ecstacy Urine VISTA POSITIVE (< 500 ng/mL); Methadone Urine VISTA NEGATIVE (< 300 ng/mL); PCP Urine VISTA NEGATIVE (< 25 ng/mL); THC Urine VISTA NEGATIVE (< 50 ng/mL); Vista UDS pH Range 7
--- NOTE | 2023-05-13 10:53 | CASEMGMT ---
Social Work Pt's POA for healthcare is scanned into the summary tab of the echart, pt's late is listed as POA, son Timbo is listed as the first alternate, and son Last is listed as the second alternate. SW inquired w/pt if this was accurate, she seems unsure, she thought Last was her healthcare POA and that her daughter Emma is also on the document. SW explained that the document we have on the chart has her late , Timbo then Last. SW inquired if pt has updated the document since 2019, she is not sure. SW asked if she would like to complete a new POA for Healthcare, pt not sure. SW gave pt blank forms with the social work information to call should she want to update the forms in the future. SILKE Graham
--- NOTE | 2023-05-13 10:56 | CASEMGMT ---
Discharge Planning Updates faxed to [facility]. Sasha Foote, Discharge Planning Asst.
[2023-05-13] MEDS: Dextrose 50%-Water 25 GM/50 ML DISP.SYRIN IV (12:02)
[2023-05-13 12:13] LABS: Bedside Glucose 68 mg/dL (74-106)
--- NOTE | 2023-05-13 12:30 | CT_ITS ---
STUDY: CT LUMBAR SPINE WITH CONTRAST REASON FOR EXAM: Female, 82 years old. Back pain reformatted from Abdomen/Pelvis images RADIATION DOSAGE (If Supplied By Facility): CTDIvol = ( 20 ) mGy, DLP = ( 1096.34 ) mGycm TECHNIQUE: The patient was scanned in a multi detector CT scanner. High resolution transaxial imaging was performed following the intravenous administration of 100mL Isovue 370. Images were obtained from L1 to S1 vertebral level. Sagittal and coronal images were reconstructed. Individualized dose optimization techniques were used for this CT. COMPARISON: None FINDINGS: Normal lumbar lordosis. There is no substantial scoliosis. Normal vertebrae of the lumbar spine. L1-2: Normal endplates. Normal disc height and morphology. Normal bilateral facet joints. Normal central canal and bilateral lateral recesses. Normal bilateral intervertebral neural foramina. L2-3: Normal endplates. Normal disc height and morphology. Normal bilateral facet joints. Normal central canal and bilateral lateral recesses. Normal bilateral intervertebral neural foramina. L3-4: Mild degree of facet joint osteoarthritis and hypertrophy. No stenosis is seen. L4-5: Moderate degree of facet joint arthritis and hypertrophy. Mild degree of bilateral neural foraminal stenosis. Minimal diffuse posterior disc bulge. L5-S1: Facet joint osteoarthritis and hypertrophy. No significant stenosis seen. Normal visualized paraspinous soft tissue structures. CT/Spine Lumbar WITH Contrast IMPRESSION: Multilevel degenerative changes, as described above. Electronically Signed: Florencio Robert MD at 13:30 EDT ,
[2023-05-13 13:01] LABS: Bedside Glucose 157 mg/dL (74-106)
[2023-05-13] MEDS: ALPRAZolam 0.5 MG Tablet PO ×2 (14:57→22:56)
--- NOTE | 2023-05-13 15:14 | NURSING ---
spoke w/ [facility] in [facility] re:sons concern/preference for plain propofol
--- NOTE | 2023-05-13 15:24 | NURSING ---
to [facility] area per their request
--- NOTE | 2023-05-13 15:57 | CASEMGMT ---
Discharge Planning PT/OT evals sent to [facility] via fax. Admissions/DON have not responded to earlier message left. SW updated. Sasha Foote, Discharge Planning Asst.
--- NOTE | 2023-05-13 16:55 | RAD_ITS ---
We are attempting to reach an attending provider to discuss findings. An addendum with communication details will be sent when the communication is complete. HISTORY: ERCP COMPARISON: CT abdomen and pelvis May 13, 2023 TECHNIQUE: A total of 9 fluoroscopic images were saved and 1 blank image saved without a radiologist present. FINDINGS: Images demonstrate retrograde cannulization of the extrahepatic bile ducts.. Right filling of intrahepatic common duct seen with progressive precontrast density conforming to the inferior hepatic margin right upper outer bowel. Total fluoroscopy time: 66.8 seconds Cumulative dose: 22 mGy RAD/ERCP Biliary Only IMPRESSION: Fluoroscopic assistance for ERCP. Progressive extraluminal contrast appears to collect along the inferior margin of the liver and along bowel. Nuclear medicine hepatobiliary scan may be beneficial to assess for bile leak. Please see operative report for additional information. Radiation dose as above. Electronically Signed: Timothy Lowe MD at 6:59 EDT ,
--- NOTE | 2023-05-13 17:28 | OP.CCLET_ITS ---
05/13/2023 Isra Rubalcava Re : ERCP procedure for Luiza Hedrickr Khadar This procedure was performed on Saturday, May 13, 2023. My impressions and recommendations are as follows: Impressions : - Choledocholithiasis was found. Complete removal was accomplished by biliary sphincterotomy and balloon extraction. - A biliary sphincterotomy was performed. - The biliary tree was swept. - The middle third of the main bile duct was successfully dilated. - One temporary stent was placed into the common bile duct. Recommendations : My findings are described in the full procedure note, which is enclosed. If I can be of further assistance, please feel free to contact me at . Sincerely, Doe Orr, 05/13/2023 5:27:23 PM This report has been signed electronically.
--- NOTE | 2023-05-13 17:28 | OP.ERCP_ITS ---
Patient Name: Luiza Galo Procedure Date: 05/13/2023 4:18 PM Date of : 1940 Age: 82 Procedure: ERCP Indications: Bile duct stone(s) Providers: Doe Orr DO Medicines: Monitored Anesthesia Care Patient Profile: This is an 82 year old female. Refer to note in patient chart for documentation of history and physical. Patient has symptoms of acute jaundice. Complications: No immediate complications. Procedure: Pre-Anesthesia Assessment: - Prior to the procedure, a History and Physical was performed, and patient medications and allergies were reviewed. The patient is competent. The risks and benefits of the procedure and the sedation options and risks were discussed with the patient. All questions were answered and informed consent was obtained. Patient identification and proposed procedure were verified by the physician in the pre-procedure area. Mental Status Examination: alert and oriented. Airway Examination: normal oropharyngeal airway and neck mobility. Respiratory Examination: clear to auscultation. CV Examination: normal. Prophylactic Antibiotics: The patient requires prophylactic antibiotics as clinically indicated based on published guidelines for the planned ERCP. The patient received antibiotic therapy before the procedure. Prior Anticoagulants: The patient has taken no anticoagulant or antiplatelet agents. ASA Grade Assessment: III - A patient with severe systemic disease. After reviewing the risks and benefits, the patient was deemed in satisfactory condition to undergo the procedure. The anesthesia plan was to use monitored anesthesia care (MAC). Immediately prior to administration of medications, the patient was re-assessed for adequacy to receive sedatives. The heart rate, respiratory rate, oxygen saturations, blood pressure, adequacy of pulmonary ventilation, and response to care were monitored throughout the procedure. The physical status of the patient was re-assessed after the procedure. After obtaining informed consent, the scope was passed under direct vision. Throughout the procedure, the patient's blood pressure, pulse, and oxygen saturations were monitored continuously. The Duodenoscope was introduced through the mouth, and advanced to the duodenum and used to inject contrast into the bile duct. The ERCP was accomplished without difficulty. The patient tolerated the procedure well. Scope In: 4:55:25 PM Scope Out: 5:16:28 PM Total Procedure Duration Time 0 hours 21 minutes 3 seconds Findings: The cook cashier food prep film was normal. The esophagus was successfully intubated under direct vision. The scope was advanced to a normal major papilla in the descending duodenum without detailed examination of the pharynx, larynx and associated structures, and upper GI tract. The upper GI tract was grossly normal. A straight Roadrunner wire was passed into the biliary tree. The short-nosed traction sphincterotome was passed over the guidewire and the bile duct was then deeply cannulated. Contrast was injected. I personally interpreted the bile duct images. There was brisk flow of contrast through the ducts. Image quality was excellent. Contrast extended to the entire biliary tree. A 5 mm biliary sphincterotomy was made with a braided traction (standard) sphincterotome using ERBE electrocautery. Moderate bleeding from the sphincterotomy stopped within 5 minutes. To discover objects, the biliary tree was swept with a 12 mm balloon starting at the bifurcation. Sludge was swept from the duct. All stones were removed. Dilation of the middle third of the main bile duct with 5-7-8.5 Fr catheter dilator was successful. One 10 Fr by 5 cm temporary stent was placed 5 cm into the common bile duct. Bile flowed through the stent. The stent was in good position. Impression: - Choledocholithiasis was found. Complete removal was accomplished by biliary sphincterotomy and balloon extraction. - A biliary sphincterotomy was performed. - The biliary tree was swept. - The middle third of the main bile duct was successfully dilated. - One temporary stent was placed into the common bile duct. Procedure Code(s): --- Professional --- 62086, Endoscopic retrograde cholangiopancreatography (ERCP); with placement of endoscopic stent into biliary or pancreatic duct, including pre- and post-dilation and guide wire passage, when performed, including sphincterotomy, when performed, each stent 56503, Endoscopic retrograde cholangiopancreatography (ERCP); with removal of calculi/debris from biliary/pancreatic duct(s) 00750, 26, Endoscopic catheterization of the biliary ductal system, radiological supervision and interpretation CPT copyright 2021 [employer]. All rights reserved. The codes documented in this report are preliminary and upon feather renovator review may be revised to meet current compliance requirements. Doe Orr DO 05/13/2023 5:27:23 PM This report has been signed electronically. Number of Addenda: 0 Note Initiated On: 05/13/2023 4:18 PM
[2023-05-13 18:23] LABS: Bedside Glucose 66 mg/dL (74-106)
[2023-05-13 18:44] LABS: Bedside Glucose 74 mg/dL (74-106)
--- NOTE | 2023-05-13 21:46 | CPS ---
Pt refused PAP therapy for the night.
[2023-05-13 22:04] LABS: Bedside Glucose 105 mg/dL (74-106)
[2023-05-13] MEDS: traZODone 100 MG Tablet 150 MG PO (23:57)
[2023-05-14] VITALS (10 sets, daily range): BP systolic 143–199; BP diastolic 53–83; PULSE 55–70; RESP 16–20; TEMP 36.3–37.1; O2SAT 93–97
[2023-05-14 02:20] LABS: Bedside Glucose 73 mg/dL (74-106)
[2023-05-14 04:42] LABS: Bedside Glucose 67 mg/dL (74-106)
[2023-05-14 05:44] LABS: Bedside Glucose 124 mg/dL (74-106)
[2023-05-14 05:45] LABS: Absolute Lymphocyte Count 1.37 X10^3/uL (0.83-4.51); Absolute Neutrophil Count 4.4 X10^3/uL (2.0-7.7); Basophil# 0.02 X10^3/uL; Basophil% 0.3 % (0-1); Eosinophil# 0.08 X10^3/uL; Eosinophils% 1.3 % (0-5); Hematocrit 39.2 % (37-47); Lymphocyte # 1.37 X10^3/ul (0.83-4.51); Lymphocyte % 21.9 % (19-41); Mean Corp Hgb Conc 30.6 g/dL (32-36); Mean Corpuscular Hgb 29.8 pg (27.0-32.0); Mean Corpuscular Volume 97.3 fL (81-99); Mean Platelet Vol. 10.6 fl (6.2-12.0); Monocyte# 0.36 X10^3/uL; Monocyte% 5.7 % (0-10); NRBC Flagged by Analyzer 0 % (0-5); Neutrophil % 70.2 % (47-70); Platelet Count 206 K/mm3 (150-450); RBC Distribution Width CV 12.5 % (11.6-14.6); Red Blood Count 4.03 M/mm3 (4.2-5.4); White Blood Count 6.3 K/mm3 (4.4-11.0)
[2023-05-14 06:09] LABS: HEPATITIS B SURFACE AG Negative (Negative); Hep C Antibodies Non Reactive (Non Reactive); Hepatitis A IgM Antibody Negative (Negative); Hepatitis B Core AB IgM Negative (Negative)
[2023-05-14 06:12] LABS: ALB/GLOB Ratio 0.6 RATIO (0.9-2.4); AST(SGOT) 174 U/L (15-37); Alanine Aminotransfer ALT/SGPT 190 U/L (13-56); Albumin, Serum 2.4 g/dL (3.2-5.0); Alkaline Phosphatase 199 U/L (45-117); Anion Gap 5 (5-15); BUN 10 mg/dL (7-18); BUN/Creat Ratio 10.2 RATIO (10-20); Calcium,Total 8.3 mg/dL (8.5-10.1); Chloride 114 mmol/L (98-107); Creatinine, Serum 0.98 mg/dL (0.55-1.02); EST Glomerular Filtration Rate 58 mL/min (>60); Est Glom Filt Rate - Afr Amer 70 mL/min (>60); Estimated Creatinine Clearance 36.21 ml/min; Globulin 3.8 g/dL (2.2-4.2); Glucose 116 mg/dL (74-106); Potassium 3.9 mmol/L (3.5-5.1); Protein, Total 6.2 g/dL (6.4-8.2); Sodium Level 145 mmol/L (136-145)
--- NOTE | 2023-05-14 07:05 | NURSING ---
REPORT GIVEN PER DR WILEY WITH ENVISION SHOWING A CONTRAST LEAK WITH THE ERCP- WILL INFORM HOSPITALIST
--- NOTE | 2023-05-14 07:48 | NURSING ---
INFORMED BOTH DR LEE AND DR GREEN ABOUT FINDINGS REPORTED PER ENVISON PER DR WILEY
--- NOTE | 2023-05-14 08:53 | NM_ITS ---
INDICATION: possible bile leak EXAMINATION: NUCLEAR MEDICINE HEPATOBILIARY SCAN - NM Hepatobiliary Imaging Quantitive TECHNIQUE: 5.4 mCi technetium 99m choletec was intravenously administered and static images were obtained. COMPARISON: CT 05/13/2023 FINDINGS: There is homogeneous uptake and excretion of the radiopharmaceutical by the liver. There is no abnormal hyperemia along the gallbladder fossa. Biliary activity is noted at 10 minutes. Bowel activity is noted at 20 minutes. Status post cholecystectomy. No abnormal collection of the radiopharmaceutical with migration through the abdomen to suggest bile leak. NM/Hepatobilliary Imaging IMPRESSION: Negative hepatobiliary scan after cholecystectomy without evidence of bile leak.. Electronically Signed: Julio C Gerber MD at 13:56 EDT ,
--- NOTE | 2023-05-14 09:28 | EX.PCM.PN.GI ---
Subjective Subjective Patient underwent ERCP yesterday for abnormal liver function tests and fever. She had multiple large stones that were removed via ERCP along with pus like material. She had a stent placed yesterday. She has been afebrile. She denies any abdominal pain. I talk with her daughter regarding the findings. Objective Data Objective Data Vital Signs: Vital Signs Temp Pulse Resp BP Pulse Ox O2 Del Method O2 Flow Rate 98.2 F 57 L 16 143/55 H 95 Nasal Cannula 0.5 05/14/23 05:20 05/14/23 05:20 05/14/23 05:20 05/14/23 05:20 05/14/23 05:20 05/14/23 05:20 05/14/23 05:20 Oxygen Flow Rate (L/min) 0.5 Oxygen Delivery Method Nasal Cannula Weight: 194 lb 0.108 oz Body Mass Index (BMI) 35.6 Intake & Output: Intake and Output for Last 24 Hours 05/12/23 05/13/23 05/14/23 23:59 23:59 23:59 Intake Total 8609 / 8809 450 / 450 Output Total 900 / 900 600 / 600 Balance 7709 / 7909 -150 / -150 Lab / Micro Data 05/14/23 05:16 05/14/23 05:16 Labs: Laboratory Results - last 24 hr 05/13/23 02:55: Hemoglobin A1c 7.0 H 05/13/23 05:50: Hepatitis A IgM Ab Negative, Hep Bs Antigen Negative, Hep B Core IgM Ab Negative, Hepatitis C Ab (EIA) Non Reactive, Hep C Ab Comment Comment 05/13/23 10:05: Urine Opiates Screen POSITIVE H, Urine Methadone Screen NEGATIVE, Ur Barbiturates Screen NEGATIVE, Ur Phencyclidine Scrn NEGATIVE, Ur Amphetamines Screen NEGATIVE, MDMA (Ecstasy) Screen POSITIVE H, U Benzodiazepines Scrn POSITIVE H, Urine Cocaine Screen NEGATIVE, U Cannabinoids Screen NEGATIVE, Ur Drug Screen Comment 05/13/23 11:56: POC Glucose 68 L 05/13/23 12:42: POC Glucose 157 H 05/13/23 17:49: POC Glucose 66 L 05/13/23 18:17: POC Glucose 74 05/13/23 21:42: POC Glucose 105 05/14/23 01:20: POC Glucose 73 L 05/14/23 04:23: POC Glucose 67 L 05/14/23 05:16: WBC 6.3, RBC 4.03 L, Hgb 12.0, Hct 39.2, MCV 97.3, MCH 29.8, MCHC 30.6 L, RDW Std Deviation 45.0 H, RDW Coeff of Sky 12.5, Plt Count 206, MPV 10.6, Immature Gran % (Auto) 0.600, Neut % (Auto) 70.2 H, Lymph % (Auto) 21.9, [place] % (Auto) 5.7, Eos % (Auto) 1.3, Baso % (Auto) 0.3, Absolute Neuts (auto) 4.4, Absolute Lymphs (auto) 1.37, Nucleated RBC % 0, Sodium 145, Potassium 3.9, Chloride 114 H, Carbon Dioxide 26.0, Anion Gap 5, BUN 10, Creatinine 0.98, Estim Creat Clear Calc 36.21, Est GFR (MDRD) Af Amer 70, Est GFR (MDRD) Non-Af 58 L, BUN/Creatinine Ratio 10.2, Glucose 116 H, Calcium 8.3 L, Phosphorus 3.0, Magnesium 2.0, Total Bilirubin 1.70 H, AST 174 H, ALT 190 H, Alkaline Phosphatase 199 H, Total Protein 6.2 L, Albumin 2.4 L, Globulin 3.8, Albumin/Globulin Ratio 0.6 L, POC Glucose 124 H Micro: Microbiology 05/12/23 21:30 Urine Catheter - Catheter Urine Culture - Preliminary Culture exhibits no growth. 05/13/23 02:15 Mucosa - Nasopharyngeal Coronavirus COVID-19 PCR - Final Radiography Diagnostic Testing: Radiology Impression Abdomen/Pelvis CT 05/13/23 08:52 IMPRESSION: Sigmoid diverticulosis. Fatty infiltration of the liver. Dilated intrahepatic biliary clips more prominent in the left lobe. Atelectasis in the left lobe of liver. A repeat sonogram of the liver is recommended for evaluation. Coronary calcification. Electronically Signed: Florencio Robert MD at 12:10 EDT , Lumbar Spine CT 05/13/23 12:30 IMPRESSION: Multilevel degenerative changes, as described above. Electronically Signed: Florencio Robert MD at 13:30 EDT , ERCP X-Ray 05/13/23 16:55 IMPRESSION: Fluoroscopic assistance for ERCP. Progressive extraluminal contrast appears to collect along the inferior margin of the liver and along bowel. Nuclear medicine hepatobiliary scan may be beneficial to assess for bile leak. Please see operative report for additional information. Radiation dose as above. Electronically Signed: Timothy Lowe MD at 6:59 EDT , ADDENDUM: 05/14/23 0710 IMPRESSION: Fluoroscopic assistance for ERCP. Progressive extraluminal contrast appears to collect along the inferior margin of the liver and along bowel. Nuclear medicine hepatobiliary scan may be beneficial to assess for bile leak. Please see operative report for additional information. Radiation dose as above. N.B. : The above Results were Read Back by Timothy Lowe MD to Yocasta Cuevas RN, and understanding confirmed on 05/14/2023 07:03:41 (ET). Electronically Signed: Timothy Lowe MD at 6:59 EDT , Physical Exam Narrative Physical Examination: General: Awake, intermittently alert Skin: Very mildly jaundiced color, normal turgor, no severely marked scleral icterus, no cyanosis. HEENT: AT/NC, EOMI, PERRLA, dry MM, no carotid bruits or JVD noted. Lungs: Diminished, greater bases, appropriate effort no rales, ronchi or wheezing. Heart: Currently regular rate and rhythm; no gallop, rub audible. Abdomen: Soft, no significant pain with palpation or any rebound or guarding but patient did have recent morphine administration, no marked distention, hyperactive bowel sounds, no obvious HSM. Extremities: No cyanosis, clubbing, or edema. Neurological: Patient awake, intermittently alert, oriented as noted, cognitive function not baseline intact; pupils equally reactive to light and accommodation, cranial nerves grossly normal, moving all 4 extremities, no focal deficits, strength moderately to severely globally decreased secondary to acute presentation, fatigued and mildly lethargic. Psychiatric: Affect appears fatigued, ill-appearing, no acute evidence of depressive or anxiety feelings but does have notable underlying history. Assessment & Plan Assessment/Plan (1) Transaminitis: (2) Fever: QUALIFIERS: Fever type: unspecified Qualified Code(s): R50.9 - Fever, unspecified (3) Jaundice: PLAN: Plan 82 y/o who presents to the [facility] ED on 05/12/23 with history of onset of fever as well as altered mental status reportedly with temperature up to 102.9. Labs were consistent with obstructive jaundice. 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 She had multiple stones removed and has good drainage to the bile duct. Charcot triad is the classic picture of acute cholangitis and comprises?jaundice, abdominal pain, rigors, and pyrexia. Hypotension and confusion are often a feature of acute suppurative cholangitis in which the bile duct is filled with purulent bile under pressure (Rufino pentad). Cholangiogram displays possible bile leak. Differential diagnosis for bile leak status post ERCP with sphincterotomy would be at the sphincterotomy site. Also in the differential diagnosis would if she formed a choledochal fistula from stone disease involving the bile duct. Treatment for bile leak would be 10 Bengali stent across the ampulla. She has is already in place. We will order a HIDA scan to see if she has any radiologic evidence of bile leak. Recommend to continue antibiotic therapy for total of 7 days. Charges/Coding Visit Charges Inpatient E&M: 08272 [facility] L[facility]
[2023-05-14] MEDS: Menthol/Lanolin/Calamine/Znox 113 GM Tube 1 APPLIC TOPICAL ×2 (10:42→21:48)
[2023-05-14] MEDS: Nystatin Powder 15gm Bottle 1 APPLIC TOPICAL ×2 (10:42→21:47)
[2023-05-14] MEDS: Vancomycin IV 1,000 MG/200 ML BAG 200 MG IV (11:08)
--- NOTE | 2023-05-14 12:15 | PCM.PN.HOSP ---
Reason for Visit Reason for Visit: Fever/nausea/vomiting/confusion Subjective Subjective Patient states she is feeling much better today. She states she feels like she has little bit more energy today. It is unclear at this time whether she will need to be placed or she will be able to go back to assisted living. I discussed with her the need for ongoing physical therapy evaluation to delineate this. If she can go back home she may be able to go tomorrow if not she will need to wait probably till Tuesday at least so we can obtain a precertification for her to go to a facility. She had no further nausea and vomiting, abdominal pain is improved, her fever has resolved as has her confusion. Objective Data Objective Data Vital Signs: Vital Signs Temp Pulse Resp BP Pulse Ox O2 Del Method O2 Flow Rate 98.7 F 60 18 176/60 H 95 Nasal Cannula 0.5 05/14/23 10:15 05/14/23 10:15 05/14/23 10:15 05/14/23 10:15 05/14/23 10:15 05/14/23 10:15 05/14/23 10:15 Oxygen Flow Rate (L/min) 0.5 Oxygen Delivery Method Nasal Cannula Weight: 88 kg Body Mass Index (BMI) 35.6 Intake & Output: Intake and Output for Last 24 Hours 05/12/23 05/13/23 05/14/23 23:59 23:59 23:59 Intake Total 8609 / 8809 560 / 560 Output Total 900 / 900 600 / 600 Balance 7709 / 7909 -40 / -40 Lab / Micro Data 05/14/23 05:16 05/14/23 05:16 Labs: Laboratory Results - last 24 hr 05/13/23 02:55: Hemoglobin A1c 7.0 H 05/13/23 05:50: Hepatitis A IgM Ab Negative, Hep Bs Antigen Negative, Hep B Core IgM Ab Negative, Hepatitis C Ab (EIA) Non Reactive, Hep C Ab Comment Comment 05/13/23 12:42: POC Glucose 157 H 05/13/23 17:49: POC Glucose 66 L 05/13/23 18:17: POC Glucose 74 05/13/23 21:42: POC Glucose 105 05/14/23 01:20: POC Glucose 73 L 05/14/23 04:23: POC Glucose 67 L 05/14/23 05:16: WBC 6.3, RBC 4.03 L, Hgb 12.0, Hct 39.2, MCV 97.3, MCH 29.8, MCHC 30.6 L, RDW Std Deviation 45.0 H, RDW Coeff of Sky 12.5, Plt Count 206, MPV 10.6, Immature Gran % (Auto) 0.600, Neut % (Auto) 70.2 H, Lymph % (Auto) 21.9, [place] % (Auto) 5.7, Eos % (Auto) 1.3, Baso % (Auto) 0.3, Absolute Neuts (auto) 4.4, Absolute Lymphs (auto) 1.37, Nucleated RBC % 0, Sodium 145, Potassium 3.9, Chloride 114 H, Carbon Dioxide 26.0, Anion Gap 5, BUN 10, Creatinine 0.98, Estim Creat Clear Calc 36.21, Est GFR (MDRD) Af Amer 70, Est GFR (MDRD) Non-Af 58 L, BUN/Creatinine Ratio 10.2, Glucose 116 H, Calcium 8.3 L, Phosphorus 3.0, Magnesium 2.0, Total Bilirubin 1.70 H, AST 174 H, ALT 190 H, Alkaline Phosphatase 199 H, Total Protein 6.2 L, Albumin 2.4 L, Globulin 3.8, Albumin/Globulin Ratio 0.6 L, POC Glucose 124 H Micro: Microbiology 05/12/23 21:30 Urine Catheter - Catheter Urine Culture - Preliminary Culture exhibits no growth. 05/13/23 02:15 Mucosa - Nasopharyngeal Coronavirus COVID-19 PCR - Final Radiography Diagnostic Testing: Radiology Impression Abdomen/Pelvis CT 05/13/23 08:52 IMPRESSION: Sigmoid diverticulosis. Fatty infiltration of the liver. Dilated intrahepatic biliary clips more prominent in the left lobe. Atelectasis in the left lobe of liver. A repeat sonogram of the liver is recommended for evaluation. Coronary calcification. Electronically Signed: Florencio Robert MD at 12:10 EDT , Lumbar Spine CT 05/13/23 12:30 IMPRESSION: Multilevel degenerative changes, as described above. Electronically Signed: Florencio Robert MD at 13:30 EDT , ERCP X-Ray 05/13/23 16:55 IMPRESSION: Fluoroscopic assistance for ERCP. Progressive extraluminal contrast appears to collect along the inferior margin of the liver and along bowel. Nuclear medicine hepatobiliary scan may be beneficial to assess for bile leak. Please see operative report for additional information. Radiation dose as above. Electronically Signed: Timothy Lowe MD at 6:59 EDT , ADDENDUM: 05/14/23 0710 IMPRESSION: Fluoroscopic assistance for ERCP. Progressive extraluminal contrast appears to collect along the inferior margin of the liver and along bowel. Nuclear medicine hepatobiliary scan may be beneficial to assess for bile leak. Please see operative report for additional information. Radiation dose as above. N.B. : The above Results were Read Back by Timothy Lowe MD to Yocasta Cuevas RN, and understanding confirmed on 05/14/2023 07:03:41 (ET). Electronically Signed: Timothy Lowe MD at 6:59 EDT , Physical Exam Const alert, oriented x3, no apparent distress and well nourished Constitutional Narrative: Obese, elderly, white female, sitting up in bed, appears comfortable and nontoxic HEENT head/scalp atraumatic and moist oral mucous membranes HEENT Narrative: Dentition is poor, Mallampati is 3, no thrush Head and Scalp: normocephalic Resp normal respiratory effort, no retractions, no use of accessory muscles and clear to auscultation bilaterally Resp Narrative: Slightly diminished at bases bilaterally-encouraged incentive spirometry Auscultation: Negative for rales, rhonchi or wheezes Cardio regular rate, regular rhythm, S1 normal heart sound, S2 normal heart sound, no murmurs, no rub, no gallops and no clicks GI normal to inspection, nondistended, normoactive bowel sounds, soft to palpation and non-tender Extremity no clubbing, cyanosis or edema Extremity Narrative: Pulses are 2+ Neuro oriented x3, moves all extremities and no focal motor deficits Neuro Narrative: Generalized weakness noted but no focal deficits Speech: speech normal Psych affect normal Psych Narrative: Eye contact is good, interaction is normal, patient is pleasant Assessment & Plan Assessment/Plan (1) Fever: QUALIFIERS: Fever type: unspecified Qualified Code(s): R50.9 - Fever, unspecified (2) Jaundice: (3) Acute encephalopathy: (4) Transaminitis: (5) Elevated serum creatinine: (6) Immunosuppression due to drug therapy: (7) Hypotension: PLAN: Plan Acute cholangitis -Postop day 1 status post ERCP with noted choledocholithiasis -Cholangiogram displays possible bile leak and HIDA scan is pending -Procalcitonin elevated at 2.2 -Culture with no growth -Blood cultures are pending -Will need a total of 7 days antibiotics to complete antibiotic course for cholangitis -Continue Zosyn -Discontinue vancomycin Relative hypotension -Resolved Transaminitis/jaundice secondary to acute choledocholithiasis -Transaminases are improving -Bilirubin is trending down -We will repeat in a.m. Toxic/metabolic encephalopathy -Resolved CKD stage II -Current serum creatinine is 0.98 and serum creatinine elevation has normalized -Baseline appears to be between 0.8 and 1.0 therefore does not meet criteria for MONICA at this time however close -Okay to restart home diuresis Fall -Likely related to acute illness - PT/OT following--> May need placement versus home health will continue to monitor MARIVEL -Patient is untreated due to her resistance to CPAP -Continue nocturnal oxygen as needed to keep sats greater than 88% CAD/HTN/HPL -CABG-->JAY to LAD, SVG to OM2 and sequetially to diagonal, SVG to PDA 06/01/17 -Hold metoprolol and losartan for relative hypotension -Continue aspirin -Restart home statin -Restart home metoprolol -Restart home Lasix -Restart home losartan PAF -Remains in NSR -Restart home beta-tawana -We will restart apixaban once we ascertain no further invasive procedures are required DM-2 -Continue home Lantus at 40 units nightly -SSI as ordered -Accu-Cheks -Hemoglobin A1c is 7.0 Allergic rhinitis -Continue home Singulair History of DVT/PE -Start prophylactic dosing with enoxaparin while off Eliquis -Will restart Eliquis as soon as we deem no medical procedures will need to be pursued History of stroke -Continue home aspirin -CT head shows small old infarct in the right frontal lobe that is stable -Holding apixaban -Restart home statin GERD -Transition to p.o. PPI Anxiety/depression -Continue home Xanax will restart to avoid withdrawal as she takes this regularly -Continue home Lexapro -Okay to restart home trazodone Restless leg syndrome -Continue Requip Neuropathy -Continue Topamax Psoriasis -Hold home Tremfya with acute infection DVT prophylaxis -Holding apixaban -Start Lovenox prophylactically and restart apixaban when medically appropriate CODE STATUS -DNR CCA with no intubation Charges/Coding Visit Charges Inpatient E&M: 03148 Subs Hosp L2
--- NOTE | 2023-05-14 12:59 | CASEMGMT ---
Addendum entered by Sabrina Conley 05/14/23 20:31: Social Work SW notified that patient's daughter is concerned patient may need more assistance than what [facility] can provide. SW left a voicemail for daughter Emma Ahumada to discuss patient needs. SW introduced self and role to patient. PT recommended additional therapy. A list of?SNF providers including quality and resource use data and consistent with patient?s preferred geographic region, medical needs, and insurance network were provided from [facility]. Patient was falling asleep and presented as confused. Plan: SW to follow for patient needs [place] -vs- SNF and discuss with family. Sabrina RICHMOND, MINE Original Note: Social Work SW contacted [facility] and confirmed with staff that patient is able to return to [facility] living when ready for discharge. SW to notify nursing of discharge plan. Sabrina RICHMOND, MEETING FACILITATOR
[2023-05-14] MEDS: Pramipexole Di-HCl 1 MG Tablet PO ×2 (14:27→21:47)
[2023-05-14] MEDS: Topiramate 50 MG Tablet PO ×2 (14:29→21:47)
[2023-05-14] MEDS: Montelukast 10 MG Tablet PO (14:29)
[2023-05-14] MEDS: Escitalopram Oxalate 10 MG Tablet PO (14:30)
[2023-05-14] MEDS: Aspirin E.C. 81 MG Tablet PO (14:31)
[2023-05-14] MEDS: ALPRAZolam 0.5 MG Tablet PO ×2 (14:33→22:59)
[2023-05-14] MEDS: 0.9% Saline Lock 10 ML Syringe IV ×2 (14:42→15:16)
[2023-05-14] MEDS: Metoprolol(XL)Succ 50 MG Tablet 25 MG PO (14:43)
[2023-05-14] MEDS: tiZANidine HCl 2 MG Tablet 4 MG PO ×2 (14:43→21:47)
[2023-05-14 15:08] LABS: M R Staph aureus DNA By PCR Negative (Negative)
[2023-05-14 15:09] LABS: Probe Check PASS; Specimen Processing Control PASS
[2023-05-14] MEDS: Enoxaparin 40 MG/0.4 ML Syringe SC (15:12)
[2023-05-14 15:19] LABS: Bedside Glucose 175 mg/dL (74-106)
[2023-05-14] MEDS: Insulin Lispro 100 UNIT/ML INSULN.PEN SC (18:16)
--- NOTE | 2023-05-14 20:58 | CASEMGMT ---
Social Work SW received return call from patient's daughter and patient's son to discuss discharge planning. Pt's son (Kong) and daughter (Emma) both expressed concerns regarding patient returning to [facility]. Pt's son reports patient is in need of fpc for therapy and assistance and has concerns with her confusion and weakness. Pt's son inquired about PT recommendation which SW provided. Pt's son and daughter were given options which are on patient's choice list. Pt's son is requesting TCU referral. SW left voicemail on referral line. Plan: SW to follow up with TCU regarding referral/precert. Sabrina Conley WELDING MACHINE OPERATOR [employer], FEATURES EDITOR
[2023-05-14] MEDS: Atorvastatin Calcium 40 MG Tablet PO (21:47)
[2023-05-14] MEDS: Insulin Glargine-YFGN 100 UNIT/ML Pen 40 UNIT SC (21:49)
[2023-05-14 22:36] LABS: Bedside Glucose 208 mg/dL (74-106)
[2023-05-14 22:36] LABS: Bedside Glucose 139 mg/dL (74-106)
[2023-05-14] MEDS: traZODone 100 MG Tablet 150 MG PO (22:59)
[2023-05-14] MEDS: hydrALAZINE 20 MG/ML Vial 10 MG IV (22:59)
[2023-05-15] VITALS (15 sets, daily range): BP systolic 106–202; BP diastolic 31–90; PULSE 48–87; RESP 18–20; TEMP 36.6–37.3; O2SAT 94–97; BMI 36.3
[2023-05-15] MEDS: hydrALAZINE 20 MG/ML Vial 10 MG IV (04:38)
[2023-05-15 05:59] LABS: ALB/GLOB Ratio 0.6 RATIO (0.9-2.4); AST(SGOT) 88 U/L (15-37); Alanine Aminotransfer ALT/SGPT 143 U/L (13-56); Albumin, Serum 2.5 g/dL (3.2-5.0); Alkaline Phosphatase 189 U/L (45-117); Anion Gap 4 (5-15); BUN 8 mg/dL (7-18); BUN/Creat Ratio 8.3 RATIO (10-20); Calcium,Total 9.1 mg/dL (8.5-10.1); Chloride 113 mmol/L (98-107); Creatinine, Serum 0.96 mg/dL (0.55-1.02); EST Glomerular Filtration Rate 59 mL/min (>60); Est Glom Filt Rate - Afr Amer 72 mL/min (>60); Estimated Creatinine Clearance 36.97 ml/min; Globulin 4.1 g/dL (2.2-4.2); Glucose 113 mg/dL (74-106); Potassium 3.9 mmol/L (3.5-5.1); Protein, Total 6.6 g/dL (6.4-8.2); Sodium Level 143 mmol/L (136-145)
[2023-05-15] MEDS: Metoprolol(XL)Succ 50 MG Tablet 25 MG PO (06:04)
[2023-05-15] MEDS: oxyCODONE 5 MG Tablet PO (06:04)
[2023-05-15] MEDS: tiZANidine HCl 2 MG Tablet 4 MG PO ×2 (06:05→22:22)
[2023-05-15 06:19] LABS: Bedside Glucose 108 mg/dL (74-106)
[2023-05-15] MEDS: Nystatin Powder 15gm Bottle 1 APPLIC TOPICAL ×2 (08:59→22:23)
[2023-05-15] MEDS: Menthol/Lanolin/Calamine/Znox 113 GM Tube 1 APPLIC TOPICAL ×2 (09:00→22:22)
[2023-05-15] MEDS: Aspirin E.C. 81 MG Tablet PO (10:57)
[2023-05-15] MEDS: Enoxaparin 40 MG/0.4 ML Syringe SC (10:57)
[2023-05-15] MEDS: Furosemide 20 MG Tablet PO (10:57)
[2023-05-15] MEDS: Montelukast 10 MG Tablet PO (10:57)
[2023-05-15] MEDS: Escitalopram Oxalate 10 MG Tablet PO (10:57)
[2023-05-15] MEDS: Pramipexole Di-HCl 1 MG Tablet PO ×2 (10:58→22:22)
[2023-05-15 12:30] LABS: Bedside Glucose 219 mg/dL (74-106)
[2023-05-15] MEDS: Insulin Lispro 100 UNIT/ML INSULN.PEN SC ×2 (12:31→17:36)
--- NOTE | 2023-05-15 13:16 | PN.HOSP_ITS ---
Reason for Visit Reason for Visit: Fever/nausea/vomiting/confusion Subjective Subjective Patient denies any issues overnight however her blood pressure was elevated she got 2 as needed doses of hydralazine. She reports she has been running high at home. I will go ahead and restart her Cozaar and see where she runs and make titrations from there. She denies any nausea or vomiting. She does, however, states she is not hungry currently. Her son who is a surgeon and daughter are at the bedside and are pleased that she will be going to TCU at discharge as they feel she can do some rehab prior to returning home. They are pleased with her progress thus far. Objective Data Objective Data Vital Signs: Vital Signs Temp Pulse Resp BP Pulse Ox O2 Del Method O2 Flow Rate 97.8 F 52 L 20 H 110/34 L 94 Room Air 1.5 05/15/23 08:39 05/15/23 11:40 05/15/23 08:39 05/15/23 11:40 05/15/23 10:43 05/15/23 10:43 05/15/23 09:05 Oxygen Flow Rate (L/min) 1.5 Oxygen Delivery Method Room Air Weight: 89.5 kg Body Mass Index (BMI) 36.3 Intake & Output: Intake and Output for Last 24 Hours 05/13/23 05/14/23 05/15/23 23:59 23:59 23:59 Intake Total 8609 / 8809 1969 / 1970 330 / 330 Output Total 900 / 900 1750 / 1750 600 / 600 Balance 7709 / 7909 220 / 220 -270 / -270 Lab / Micro Data 05/14/23 05:16 05/15/23 05:14 Labs: Laboratory Results - last 24 hr 05/14/23 11:50: MRSA (PCR) Negative 05/14/23 14:22: POC Glucose 175 H 05/14/23 16:42: POC Glucose 208 H 05/14/23 21:41: POC Glucose 139 H 05/15/23 04:47: POC Glucose 108 H 05/15/23 05:14: Sodium 143, Potassium 3.9, Chloride 113 H, Carbon Dioxide 26.0, Anion Gap 4 L, BUN 8, Creatinine 0.96, Estim Creat Clear Calc 36.97, Est GFR (MDRD) Af Amer 72, Est GFR (MDRD) Non-Af 59 L, BUN/Creatinine Ratio 8.3 L, Glucose 113 H, Calcium 9.1, Total Bilirubin 1.00, AST 88 H, ALT 143 H, Alkaline Phosphatase 189 H, Total Protein 6.6, Albumin 2.5 L, Globulin 4.1, Albumin/Globulin Ratio 0.6 L 05/15/23 11:57: POC Glucose 219 H Micro: Microbiology 05/12/23 21:40 Blood Culture (Wb) - Anticubital Left Blood Culture - Preliminary No growth in 48 hours. 05/12/23 21:20 Blood Culture (Wb) - Anticubital Right Blood Culture - Pr eliminary No growth in 48 hours. 05/12/23 21:30 Urine Catheter - Catheter Urine Culture - Final Culture exhibits no growth. 05/13/23 02:15 Mucosa - Nasopharyngeal Coronavirus COVID-19 PCR - Final Radiography Diagnostic Testing: Radiology Impression Hepatobiliary Scan Nuclear Medicine 05/14/23 08:53 IMPRESSION: Negative hepatobiliary scan after cholecystectomy without evidence of bile leak.. Electronically Signed: Julio C Gerber MD at 13:56 EDT , Physical Exam Const alert, oriented x3, no apparent distress and well nourished Constitutional Narrative: Obese, elderly, white female, sitting up in bed, appears comfortable and nontoxic, nursing at bedside HEENT head/scalp atraumatic and moist oral mucous membranes HEENT Narrative: Mallampati is 2-3, no thrush Head and Scalp: normocephalic Resp normal respiratory effort, no retractions, no use of accessory muscles and clear to auscultation bilaterally Resp Narrative: Remains slightly diminished at bases bilaterally with few inspiratory crackles that improved with deep breathing that is repetitive Auscultation: rales; Negative for rhonchi or wheezes Cardio regular rate, regular rhythm, S1 normal heart sound, S2 normal heart sound, no murmurs, no rub, no gallops and no clicks GI normal to inspection, nondistended, normoactive bowel sounds, soft to palpation and non-tender Extremity no clubbing, cyanosis or edema Extremity Narrative: Pulses are 2+ Neuro oriented x3, moves all extremities and no focal motor deficits Neuro Narrative: Generalized weakness noted but no focal deficits Speech: speech normal Psych affect normal Psych Narrative: Eye contact is good, interaction is normal, patient is pleasant Assessment & Plan Assessment/Plan (1) Fever: QUALIFIERS: Fever type: unspecified Qualified Code(s): R50.9 - Fever, unspecified (2) Jaundice: (3) Acute encephalopathy: (4) Transaminitis: (5) Elevated serum creatinine: (6) Immunosuppression due to drug therapy: (7) Hypotension: PLAN: Plan Acute cholangitis -Postop day 2 status post ERCP with noted choledocholithiasis -Cholangiogram thought to display bile leak however HIDA scan was negative -Procalcitonin elevated at 2.2 on admission -Blood cultures are with no growth to date -Will need a total of 7 days antibiotics to complete antibiotic course for cholangitis -Continue Zosyn day 3 of 7 for antibiotics -Continue regular diet Transaminitis/jaundice secondary to acute choledocholithiasis -Transaminases are markedly improved -Bilirubin has normalized -We will repeat in a.m. CKD stage II -Current serum creatinine is 0.98 and serum creatinine elevation has normalized -Baseline appears to be between 0.8 and 1.0 therefore does not meet criteria for MONICA at this time however close -Okay to restart home diuresis Fall -Likely related to acute illness - PT/OT following--> will need placement at discharge -Referral to TCU and if excepted pre-CERT will need to be obtained prior to discharge MARIVEL -Patient is untreated due to her resistance to CPAP -Continue nocturnal oxygen as needed to keep sats greater than 88% CAD/HTN/HPL -CABG-->JAY to LAD, SVG to OM2 and sequetially to diagonal, SVG to PDA 06/01/17 -Continue aspirin -Continue home statin -Continue home metoprolol -Continue home Lasix -Continue home losartan -Per patient and family blood pressure has been quite high at home we will monitor now that we have her back on her home regimen and hold as needed hydralazine for now -If patient has elevated pressures I would prefer she not receive an IV as needed and we increase her metoprolol or losartan PAF -Remains in NSR -Continue home beta-tawana -Restart home apixaban DM-2 -Continue home Lantus at 40 units nightly -SSI as ordered -Accu-Cheks -Hemoglobin A1c is 7.0 Allergic rhinitis -Continue home Singulair History of DVT/PE -Restart home with [place] History of stroke -Continue home aspirin -CT head shows small old infarct in the right frontal lobe that is stable -Restart home apixaban -Restart home statin GERD -Transition to p.o. PPI Anxiety/depression -Continue home Xanax will restart to avoid withdrawal as she takes this regularly -Continue home Lexapro -Continue home trazodone Restless leg syndrome -Continue Requip Neuropathy -Continue Topamax Psoriasis -Hold home Tremfya with acute infection and will restart at discharge DVT prophylaxis -Restart home apixaban and discontinue Lovenox CODE STATUS -DNR CCA with no intubation Disposition: -Patient is medically stable for discharge -Will need therapy and placement with TCU being the plan at this time -Awaiting acceptance and pre-CERT from insurance Charges/Coding Visit Charges Inpatient E&M: 83306 Subs Hosp L2
[2023-05-15] MEDS: Losartan Potassium 25 MG Tablet PO (14:36)
[2023-05-15] MEDS: Losartan Potassium 50 MG Tablet PO (17:35)
[2023-05-15 17:48] LABS: Bedside Glucose 212 mg/dL (74-106)
[2023-05-15] MEDS: traZODone 100 MG Tablet 150 MG PO (22:21)
[2023-05-15] MEDS: ALPRAZolam 0.5 MG Tablet PO (22:21)
[2023-05-15] MEDS: Topiramate 50 MG Tablet PO (22:22)
[2023-05-15] MEDS: Atorvastatin Calcium 40 MG Tablet PO (22:22)
[2023-05-15] MEDS: Insulin Glargine-YFGN 100 UNIT/ML Pen 40 UNIT SC (22:25)
[2023-05-16] VITALS (8 sets, daily range): BP systolic 145–198; BP diastolic 50–87; PULSE 55–68; RESP 16–20; TEMP 36.6–37.4; O2SAT 96–98; BMI 36.3
[2023-05-16 00:01] LABS: Bedside Glucose 142 mg/dL (74-106)
[2023-05-16] MEDS: Losartan Potassium 25 MG Tablet 75 MG PO (06:05)
[2023-05-16 07:09] LABS: Absolute Lymphocyte Count 2.07 X10^3/uL (0.83-4.51); Absolute Neutrophil Count 2.7 X10^3/uL (2.0-7.7); Basophil# 0.05 X10^3/uL; Basophil% 0.9 % (0-1); Eosinophil# 0.14 X10^3/uL; Eosinophils% 2.6 % (0-5); Hematocrit 42.2 % (37-47); Hemoglobin 13.2 g/dL (12.0-15.0); Lymphocyte # 2.07 X10^3/ul (0.83-4.51); Lymphocyte % 39.1 % (19-41); Mean Corp Hgb Conc 31.3 g/dL (32-36); Mean Corpuscular Hgb 29.7 pg (27.0-32.0); Mean Corpuscular Volume 94.8 fL (81-99); Mean Platelet Vol. 10.7 fl (6.2-12.0); Monocyte# 0.31 X10^3/uL; Monocyte% 5.8 % (0-10); NRBC Flagged by Analyzer 0 % (0-5); Neutrophil # 2.72 X10^3/uL (2.7-7.7); Neutrophil % 51.4 % (47-70); Platelet Count 227 K/mm3 (150-450); RBC Distribution Width CV 12.3 % (11.6-14.6); RBC Distribution Width SD 43.3 fl (35.1-43.9); Red Blood Count 4.45 M/mm3 (4.2-5.4); White Blood Count 5.3 K/mm3 (4.4-11.0)
[2023-05-16 07:18] LABS: Bedside Glucose 133 mg/dL (74-106)
[2023-05-16 07:18] LABS: Bedside Glucose 70 mg/dL (74-106)
[2023-05-16 07:35] LABS: ALB/GLOB Ratio 0.5 RATIO (0.9-2.4); AST(SGOT) 50 U/L (15-37); Alanine Aminotransfer ALT/SGPT 108 U/L (13-56); Albumin, Serum 2.5 g/dL (3.2-5.0); Alkaline Phosphatase 181 U/L (45-117); Anion Gap 8 (5-15); BUN 7 mg/dL (7-18); BUN/Creat Ratio 6.3 RATIO (10-20); Calcium,Total 9.7 mg/dL (8.5-10.1); Chloride 109 mmol/L (98-107); Creatinine, Serum 1.11 mg/dL (0.55-1.02); EST Glomerular Filtration Rate 50 mL/min (>60); Est Glom Filt Rate - Afr Amer 61 mL/min (>60); Estimated Creatinine Clearance 31.97 ml/min; Globulin 4.8 g/dL (2.2-4.2); Glucose 130 mg/dL (74-106); Potassium 3.6 mmol/L (3.5-5.1); Protein, Total 7.3 g/dL (6.4-8.2); Sodium Level 143 mmol/L (136-145)
[2023-05-16] MEDS: Nystatin Powder 15gm Bottle 1 APPLIC TOPICAL (10:07)
[2023-05-16] MEDS: Menthol/Lanolin/Calamine/Znox 113 GM Tube 1 APPLIC TOPICAL (10:08)
[2023-05-16] MEDS: Losartan Potassium 100 MG Tablet PO (10:09)
[2023-05-16] MEDS: Furosemide 20 MG Tablet PO (10:10)
[2023-05-16] MEDS: Aspirin E.C. 81 MG Tablet PO (10:10)
[2023-05-16] MEDS: APIXABAN 5 MG TABLET PO ×2 (10:10→22:41)
[2023-05-16] MEDS: Montelukast 10 MG Tablet PO (10:11)
[2023-05-16] MEDS: Escitalopram Oxalate 10 MG Tablet PO (10:11)
[2023-05-16] MEDS: Topiramate 50 MG Tablet PO ×2 (10:12→22:43)
[2023-05-16] MEDS: Metoprolol(XL)Succ 25 MG Tablet PO (10:12)
[2023-05-16] MEDS: ALPRAZolam 0.5 MG Tablet PO ×4 (10:15→22:40)
[2023-05-16] MEDS: Pramipexole Di-HCl 1 MG Tablet PO ×2 (11:53→22:41)
[2023-05-16] MEDS: Insulin Lispro 100 UNIT/ML INSULN.PEN SC (11:56)
[2023-05-16 12:15] LABS: Bedside Glucose 197 mg/dL (74-106)
--- NOTE | 2023-05-16 12:40 | CASEMGMT ---
Social Work Pt is pending precert for TCU placement. Sabrina Conley LEAN MANUFACTURING ENGINEER, MANAGER CHILD
[2023-05-16] MEDS: tiZANidine HCl 2 MG Tablet 4 MG PO ×2 (14:34→22:41)
--- NOTE | 2023-05-16 14:42 | CASEMGMT ---
Social Work SW introduced self and role to patient and daughter, Emma. TCU had questions regarding medications, SW called anaya who reported patient was in charge of her own medicaitons. Pt
--- NOTE | 2023-05-16 14:45 | CASEMGMT ---
Addendum entered by Sabrina Conley 05/16/23 14:58: TCU called and reports patient refused therapy. Requesting patient to do PT prior to submitting precert. SW to discuss with patient and daughter and precert submitted post PT participation. Sabrina RICHMOND, SERVICE LEARNING COORDINATOR Original Note: Social Work SW received call from TCU regarding patient medications. SW called anaya who reports patient was in charge of her own medications. SW introduced self and role to patient and daughter, Emma. Pt reported received injections of Trymfya and last dose not listed. Pt reports she no longer takes this medication. Patient's daughter reports it has been at least 6 months since patient has taken this medication. TCU had inquired about patient taking Myrbetriq in place of Gemtesa. SW asked patient and patient reports Myrbetriq does not work for her and she needs Gemtesa. IRINA spoke with Aurea from TCU who reports they are able to bring in Gemtesa and SW notified daughter. Plan: Pt is pending precert for TCU. Sabrina RICHMOND, SERVICE LEARNING COORDINATOR
--- NOTE | 2023-05-16 15:00 | TREXTCAR_ITS ---
Diet Diet Order/Speech Therapy: 05/16/23 09:03 Diet: Cardiac: Calorie-Controlled Is pt able to select menu?: Yes Diet Comments: after CT How many daily calories?: 1800 calorie Routine Orders/Code Status Routine Lab Work: CBC (5 days) and - (CMP in 5 days) Code Status: DNRCC-A (no ETT) Wound(s) lower abd: Wound Type: Laceration Suggestions for Active Care Change Position every (hours): 2 Hours to sit in a chair: 2 Times a day to sit in chair: 3 Therapies Weight Bearing: Full weight bearing Physical Therapy: Eval and Treat Occupational Therapy: Eval and Treat Problem/Diagnosis (1) Fever: Status: Acute Code(s): R50.9 - Fever, unspecified (2) Jaundice: Status: Acute Code(s): R17 - Unspecified jaundice (3) Acute encephalopathy: Status: Acute Code(s): G93.40 - Encephalopathy, unspecified (4) Transaminitis: Status: Acute Code(s): R74.01 - Elevation of levels of liver transaminase levels (5) Elevated serum creatinine: Status: Acute Code(s): R79.89 - Other specified abnormal findings of blood chemistry (6) Immunosuppression due to drug therapy: Status: Acute Code(s): D84.821 - Immunodeficiency due to drugs; Z79.899 - Other termite inspector (current) drug therapy (7) Hypotension: Status: Acute Code(s): I95.9 - Hypotension, unspecified Allergies/Procedures Done in Hospital Allergies insulin isophane (NPH) Allergy (Severe, Verified 05/12/23 20:52) heart burn Anesthetics - Amide Type - Select A Allergy (Verified 05/12/23 20:52) NEEDS FOLLOW-UP Anesthetics - Tyra Type- Parabens Allergy (Verified 05/12/23 20:52) NEEDS FOLLOW-UP latex Allergy (Verified 05/12/23 20:52) Unknown only allergic when already sick promethazine [From Phenergan] Allergy (Verified 05/12/23 20:52) PT UNSURE OF REACTION sitagliptin phosphate [From Januvia] Allergy (Verified 05/12/23 20:52) Unknown insulin degludec [From Xultophy 100/3.6] Adverse Reaction (Mild, Verified 05/12/23 20:52) Nausea liraglutide [From Xultophy 100/3.6] Adverse Reaction (Mild, Verified 04/20/23 14:41) Nausea atorvastatin [From Lipitor] Adverse Reaction (Unknown, Verified 05/12/23 20:52) Unknown codeine Adverse Reaction (Unknown, Verified 05/12/23 20:52) Unknown tizanidine Adverse Reaction (Unknown, Verified 05/12/23 20:52) Unknown Procedures: - (CT Brain/GB US/CT abd and pelvis/Lumbar spine CT/ERCP/HIDA scan) Follow Up Care Please follow up with your Primary Care Physician in: 4 weeks Please Follow Up With: Doe Orr DO When: 6-8 weeks Discharge Plan Admission Admit Date/Time: 05/13/23 01:24 Attending Provider: Alee Yao Primary Care Provider: Isra Rubalcava Consulting Providers: Octavia Gruber Discharge Orders/Prescriptions Prescriptions: No Action aspirin 81 mg tablet,delayed release (DR/EC) 81 mg PO QDAY alprazolam 0.5 mg tablet 0.5 mg PO 4X/DAY montelukast 10 mg tablet 10 mg PO DAILY hydrocodone-acetaminophen [[place]] 5-325 mg tablet 1 tab PO Q12H PRN (Reason: Pain 1-10 Or Fever) insulin degludec 200 unit/mL (3 mL) insulin pen 40 unit SC QHS nitroglycerin [Nitrostat] 0.4 mg tablet, sublingual 0.4 mg sublingual Q5-15M PRN (Reason: chest pain) Qty: 25 3RF Rx Instructions: do not exceed 3 doses per episode topiramate 100 mg tablet 50 mg PO BID cholecalciferol (vitamin D3) 125 mcg (5,000 unit) capsule 125 mcg PO DAILY escitalopram oxalate [Lexapro] 10 mg tablet 10 mg PO DAILY (DME) BP cuff See Rx Instructions .Route .MEDSUPPLY Qty: 1 0RF Rx Instructions: As directed trazodone 150 mg tablet 300 mg PO QHS ropinirole 1 mg tablet 2 mg PO BID acetaminophen [Tylenol Extra Strength] 500 mg tablet 1,000 mg PO Q4H PRN (Reason: pain) Eliquis 5 mg tablet 5 mg PO DAILY Gemtesa 75 mg tablet 75 mg PO DAILY fesoterodine 4 mg tablet extended release 24 hr 4 mg PO DAILY losartan 25 mg tablet 25 mg PO DAILY Qty: 30 11RF furosemide 20 mg tablet 20 mg PO DAILY tizanidine 4 mg capsule 4 mg PO Q8H Tremfya 100 mg/mL auto-injector 100 mg subcut .g9nisnd metoprolol succinate 50 mg tablet extended release 24 hr 25 mg PO DAILY atorvastatin 40 mg tablet 40 mg PO QDAY Qty: 30 6RF Referrals / Follow Up: Doe Orr DO [Med Staff - Active Staff] - See Referral Note (1-2 mos) Isra Rubalcava MD [Primary Care Provider] - Within 1 Month (1) Fever Qualifiers: Fever type: unspecified Qualified Code(s): R50.9 - Fever, unspecified
--- NOTE | 2023-05-16 15:12 | PCM.PN.HOSP ---
Reason for Visit Reason for Visit: Fever/nausea/vomiting/confusion Subjective Subjective No specific issues overnight. Patient has not yet been eating much, unhappy with food choices here. States she is not all that hungry and cannot find anything she likes. I encouraged her strongly to increase her oral intake and fluid intake. Objective Data Objective Data Vital Signs: Vital Signs Temp Pulse Resp BP Pulse Ox O2 Del Method O2 Flow Rate 97.9 F 68 16 145/82 H 98 Room Air 1.5 05/16/23 09:20 05/16/23 10:12 05/16/23 09:20 05/16/23 09:20 05/16/23 09:20 05/16/23 10:06 05/15/23 09:05 Oxygen Flow Rate (L/min) 1.5 Oxygen Delivery Method Room Air Weight: 89.6 kg Body Mass Index (BMI) 36.3 Intake & Output: Intake and Output for Last 24 Hours 05/14/23 05/15/23 05/16/23 23:59 23:59 23:59 Intake Total 1970 / 1970 1390 / 1390 660 / 660 Output Total 1750 / 1750 1900 / 1900 800 / 800 Balance 220 / 220 -510 / -510 -140 / -140 Lab / Micro Data 05/16/23 06:39 05/16/23 06:39 Labs: Laboratory Results - last 24 hr 05/15/23 16:21: POC Glucose 212 H 05/15/23 22:19: POC Glucose 142 H 05/16/23 05:50: POC Glucose 70 L 05/16/23 06:31: POC Glucose 133 H 05/16/23 06:39: WBC 5.3, RBC 4.45, Hgb 13.2, Hct 42.2, MCV 94.8, MCH 29.7, MCHC 31.3 L, RDW Std Deviation 43.3, RDW Coeff of Sky 12.3, Plt Count 227, MPV 10.7, Immature Gran % (Auto) 0.200, Neut % (Auto) 51.4, Lymph % (Auto) 39.1, Murray % (Auto) 5.8, Eos % (Auto) 2.6, Baso % (Auto) 0.9, Absolute Neuts (auto) 2.7, Absolute Lymphs (auto) 2.07, Nucleated RBC % 0, Sodium 143, Potassium 3.6, Chloride 109 H, Carbon Dioxide 26.0, Anion Gap 8, BUN 7, Creatinine 1.11 H, Estim Creat Clear Calc 31.97, Est GFR (MDRD) Af Amer 61, Est GFR (MDRD) Non-Af 50 L, BUN/Creatinine Ratio 6.3 L, Glucose 130 H, Calcium 9.7, Total Bilirubin 0.90, AST 50 H, ALT 108 H, Alkaline Phosphatase 181 H, Total Protein 7.3, Albumin 2.5 L, Globulin 4.8 H, Albumin/Globulin Ratio 0.5 L 05/16/23 11:55: POC Glucose 197 H Micro: Microbiology 05/12/23 21:40 Blood Culture (Wb) - Anticubital Left Blood Culture - Preliminary No growth in 48 hours. 05/12/23 21:20 Blood Culture (Wb) - Anticubital Right Blood Culture - Preliminary No growth in 48 hours. 05/12/23 21:30 Urine Catheter - Catheter Urine Culture - Final Culture exhibits no growth. 05/13/23 02:15 Mucosa - Nasopharyngeal Coronavirus COVID-19 PCR - Final Physical Exam Const alert, oriented x3, no apparent distress and well nourished Constitutional Narrative: Obese, elderly, white female, sitting up in bed, appears comfortable and nontoxic, resting comfortably but awakens easily HEENT head/scalp atraumatic and moist oral mucous membranes HEENT Narrative: Mallampati 3, no thrush Head and Scalp: normocephalic Resp normal respiratory effort, no retractions, no use of accessory muscles and clear to auscultation bilaterally Resp Narrative: Basilar crackles have resolved Auscultation: Negative for rales, rhonchi or wheezes Cardio regular rate, regular rhythm, S1 normal heart sound, S2 normal heart sound, no murmurs, no rub, no gallops and no clicks GI normal to inspection, nondistended, normoactive bowel sounds, soft to palpation and non-tender Extremity no clubbing, cyanosis or edema Extremity Narrative: Pulses are 2+ Neuro oriented x3, moves all extremities and no focal motor deficits Neuro Narrative: Generalized weakness proximal greater than distal Speech: speech normal Psych affect normal Psych Narrative: Eye contact is good, interaction is normal, patient is pleasant Assessment & Plan Assessment/Plan (1) Fever: QUALIFIERS: Fever type: unspecified Qualified Code(s): R50.9 - Fever, unspecified (2) Jaundice: (3) Acute encephalopathy: (4) Transaminitis: (5) Elevated serum creatinine: (6) Immunosuppression due to drug therapy: (7) Hypotension: PLAN: Plan Acute cholangitis -Postop day 3 status post ERCP with noted choledocholithiasis -Cholangiogram thought to display bile leak however HIDA scan was negative -Procalcitonin elevated at 2.2 on admission -Blood cultures are with no growth to date -Will need a total of 7 days antibiotics to complete antibiotic course for cholangitis -Continue Zosyn day 4 of 7 for antibiotics -Continue regular diet Transaminitis/jaundice secondary to acute choledocholithiasis -Transaminases are markedly improved and have almost normalized at this point -Bilirubin has normalized -We will repeat in a.m. CKD stage II -Current serum creatinine is 0.98 and serum creatinine elevation has normalized -Baseline serum creatinine between 0.8 and 1.0 -Slight bump in creatinine today to 1.11 however I suspect p.o. intake has been poor and I encouraged this to increase -We will continue diuresis for now and repeat BMP in a.m. Fall -Likely related to acute illness -PT/OT following--> will need placement at discharge -Referral to TCU and excepting this is pending on participation in therapy today -PRECERT will be needed prior to discharge MARIVEL -Patient is untreated due to her resistance to CPAP -Continue nocturnal oxygen as needed to keep sats greater than 88% CAD/HTN/HPL -CABG-->JAY to LAD, SVG to OM2 and sequentially to diagonal, SVG to PDA 06/01/17 -Continue aspirin -Continue home statin -Continue home metoprolol -Continue home Lasix -Blood pressures have been elevated despite home treatment and patient admits that they have been elevated at home I did increase her losartan yesterday afternoon from 25 to 75 mg and she still has been really elevated so will increase to 100 mg and continue her home metoprolol as is -This was added this morning blood pressure still higher than I would like to see them but improved overall heart rates are on the lower side so unable to increase metoprolol and will add Norvasc 5 mg PAF -Remains in NSR -Continue home beta-tawana -Continue home apixaban DM-2 -Continue home Lantus at 40 units nightly -A.m. fasting sugar was 130 -SSI as ordered -Accu-Cheks -Hemoglobin A1c is 7.0 Allergic rhinitis -Continue home Singulair History of DVT/PE -Continue apixaban History of stroke -Continue home aspirin -CT head shows small old infarct in the right frontal lobe that is stable -Continue apixaban -Continue home statin GERD -Transition to p.o. PPI Anxiety/depression -Continue home Xanax will restart to avoid withdrawal as she takes this regularly -Continue home Lexapro -Continue home trazodone Restless leg syndrome -Continue Requip Neuropathy -Continue Topamax Psoriasis -Patient is no longer taking Tremfya Overactive bladder -Restart Gemseta DVT prophylaxis -Continue apixaban 5 mg p.o. twice daily CODE STATUS -DNR CCA with no intubation Disposition: -Patient is medically stable for discharge -Will need therapy and placement with TCU being the plan at this time -Awaiting acceptance and pre-CERT from insurance Charges/Coding Visit Charges Inpatient E&M: 84207 Subs Hosp L2
--- NOTE | 2023-05-16 16:33 | CHAPLAIN ---
Type of Pastoral Visit _x__ Initial Visit ___ Follow-up Visit ___ On-call Visit ___ General Patient Visit ___ Spiritual Assessment ___ Family Conference ___ Bereavement ___ Rapid Response ___ Code Blue ___ Other (describe below) Pastoral Care Referral From _x__ Patient ___ Family ___ Nurse ___ Physician ___ Plant Propagator ___ Factory Helper ___ Other (describe below) Sacrament/Intervention _x__ Active listening ___ Anointing ___ Presybeterian ___ Bereavement ___ Communion _x__ Mandy exploration ___ _x__ Life review _x__ Prayer ___ Reconciliation ___ Sacrament of Sick _x__ Supportive presence ___ Wedding ___ Other (describe below) Pastoral Comments patient requested visit from this business planning director; pt details her illness and reason for admission; pt realizes now how critical of condition she was in and reiterates how she hopes to live longer; pt speaks of her living situation; pt asks questions about spiritual issues and about heaven; pt plans to go to TCU and would like more visits if possible; prayer given as well
[2023-05-16] MEDS: amLODIPine 5 MG Tablet PO (17:36)
[2023-05-16 17:59] LABS: Bedside Glucose 149 mg/dL (74-106)
[2023-05-16] MEDS: traZODone 100 MG Tablet 150 MG PO (22:41)
[2023-05-16] MEDS: Atorvastatin Calcium 40 MG Tablet PO (22:41)
[2023-05-16] MEDS: Insulin Glargine-YFGN 100 UNIT/ML Pen 40 UNIT SC (22:52)
[2023-05-17 00:19] LABS: Bedside Glucose 240 mg/dL (74-106)
[2023-05-17 02:12] VITALS: PULSE 50; RESP 20; O2SAT 95
[2023-05-17 04:06] VITALS: BP 146/58; PULSE 47; RESP 20; TEMP 36.4; O2SAT 95
[2023-05-17] MEDS: Nystatin Powder 15gm Bottle 1 APPLIC TOPICAL ×2 (04:11→09:20)
[2023-05-17] MEDS: Menthol/Lanolin/Calamine/Znox 113 GM Tube 1 APPLIC TOPICAL ×2 (04:12→09:18)
[2023-05-17 04:38] VITALS: BMI 36.3
[2023-05-17] MEDS: tiZANidine HCl 2 MG Tablet 4 MG PO ×2 (07:09→14:51)
[2023-05-17 07:15] LABS: ALB/GLOB Ratio 0.6 RATIO (0.9-2.4); AST(SGOT) 27 U/L (15-37); Alanine Aminotransfer ALT/SGPT 77 U/L (13-56); Albumin, Serum 2.5 g/dL (3.2-5.0); Alkaline Phosphatase 154 U/L (45-117); Anion Gap 7 (5-15); BUN 11 mg/dL (7-18); BUN/Creat Ratio 9.6 RATIO (10-20); Calcium,Total 9.4 mg/dL (8.5-10.1); Chloride 110 mmol/L (98-107); Creatinine, Serum 1.15 mg/dL (0.55-1.02); EST Glomerular Filtration Rate 48 mL/min (>60); Est Glom Filt Rate - Afr Amer 58 mL/min (>60); Estimated Creatinine Clearance 30.86 ml/min; Globulin 4.4 g/dL (2.2-4.2); Glucose 129 mg/dL (74-106); Potassium 3.2 mmol/L (3.5-5.1); Protein, Total 6.9 g/dL (6.4-8.2); Sodium Level 143 mmol/L (136-145)
[2023-05-17 07:35] LABS: Bedside Glucose 113 mg/dL (74-106)
[2023-05-17] MEDS: Potassium Chloride Oral Tablet 20 MEQ 40 MEQ PO (09:18)
[2023-05-17] MEDS: ALPRAZolam 0.5 MG Tablet PO ×3 (09:18→17:22)
[2023-05-17 09:19] VITALS: PULSE 52
[2023-05-17] MEDS: Losartan Potassium 100 MG Tablet PO (09:19)
[2023-05-17] MEDS: Montelukast 10 MG Tablet PO (09:19)
[2023-05-17] MEDS: APIXABAN 5 MG TABLET PO (09:20)
[2023-05-17] MEDS: Aspirin E.C. 81 MG Tablet PO (09:20)
[2023-05-17] MEDS: Pramipexole Di-HCl 1 MG Tablet PO (09:20)
[2023-05-17] MEDS: Escitalopram Oxalate 10 MG Tablet PO (09:20)
[2023-05-17] MEDS: Topiramate 50 MG Tablet PO (09:21)
[2023-05-17] MEDS: amLODIPine 5 MG Tablet PO (09:24)
[2023-05-17] MEDS: Pantoprazole Sodium 40 MG Tablet PO (09:24)
[2023-05-17 10:06] VITALS: BP 147/59; PULSE 52; RESP 16; TEMP 36.7; O2SAT 95
[2023-05-17] MEDS: Insulin Lispro 100 UNIT/ML INSULN.PEN SC ×2 (12:28→17:22)
[2023-05-17 12:49] LABS: Bedside Glucose 285 mg/dL (74-106)
--- NOTE | 2023-05-17 14:42 | TREXTCAR_ITS ---
Diet Diet Order/Speech Therapy: 05/16/23 09:03 Diet: Cardiac: Calorie-Controlled Is pt able to select menu?: Yes Diet Comments: after CT How many daily calories?: 1800 calorie Routine Orders/Code Status Suppository Frequency: Daily PRN O2 Frequency: PRN Keep PO Greater than or Equal to (%): 92 Routine Lab Work: CBC (5 days) and - (CMP in 5 days) Code Status: DNRCC-A (no ETT) Wound(s) lower abd: Wound Type: Laceration Suggestions for Active Care Change Position every (hours): 2 Hours to sit in a chair: 2 Times a day to sit in chair: 3 Therapies Physical Therapy: Eval and Treat Occupational Therapy: Eval and Treat Problem/Diagnosis (1) Fever: Status: Acute Code(s): R50.9 - Fever, unspecified (2) Jaundice: Status: Acute Code(s): R17 - Unspecified jaundice (3) Acute encephalopathy: Status: Acute Code(s): G93.40 - Encephalopathy, unspecified (4) Transaminitis: Status: Acute Code(s): R74.01 - Elevation of levels of liver transaminase levels (5) Elevated serum creatinine: Status: Acute Code(s): R79.89 - Other specified abnormal findings of blood chemistry (6) Immunosuppression due to drug therapy: Status: Acute Code(s): D84.821 - Immunodeficiency due to drugs; Z79.899 - Other senior living (current) drug therapy (7) Hypotension: Status: Acute Code(s): I95.9 - Hypotension, unspecified Allergies/Procedures Done in Hospital Allergies insulin isophane (NPH) Allergy (Severe, Verified 05/12/23 20:52) heart burn Anesthetics - Amide Type - Select A Allergy (Verified 05/12/23 20:52) NEEDS FOLLOW-UP Anesthetics - Tyra Type- Parabens Allergy (Verified 05/12/23 20:52) NEEDS FOLLOW-UP latex Allergy (Verified 05/12/23 20:52) Unknown only allergic when already sick promethazine [From Phenergan] Allergy (Verified 05/12/23 20:52) PT UNSURE OF REACTION sitagliptin phosphate [From Januvia] Allergy (Verified 05/12/23 20:52) Unknown insulin degludec [From Xultophy 100/3.6] Adverse Reaction (Mild, Verified 05/12/23 20:52) Nausea liraglutide [From Xultophy 100/3.6] Adverse Reaction (Mild, Verified 04/20/23 14:41) Nausea atorvastatin [From Lipitor] Adverse Reaction (Unknown, Verified 05/12/23 20:52) Unknown codeine Adverse Reaction (Unknown, Verified 05/12/23 20:52) Unknown tizanidine Adverse Reaction (Unknown, Verified 05/12/23 20:52) Unknown Procedures: - (CT Brain/GB US/CT abd and pelvis/Lumbar spine CT/ERCP/HIDA scan) Type of Care/Length of Stay Estimated LOS: Convalescent Care Less Than 30 days Type of Care Needed: Skilled Rehab Potential: Fair Prognosis: Good Additional Orders/Day of Discharge Day of Discharge: 05/17/23 Follow Up Care Please follow up with your Primary Care Physician in: 4 weeks Please Follow Up With: Doe Orr DO When: 6-8 weeks Discharge Plan Admission Admit Date/Time: 05/13/23 01:24 Attending Provider: Alee Yao Primary Care Provider: Isra Rubalcava Consulting Providers: Octavia Gruber Discharge Orders/Prescriptions Prescriptions: No Action aspirin 81 mg tablet,delayed release (DR/EC) 81 mg PO QDAY alprazolam 0.5 mg tablet 0.5 mg PO 4X/DAY montelukast 10 mg tablet 10 mg PO DAILY hydrocodone-acetaminophen [[place]] 5-325 mg tablet 1 tab PO Q12H PRN (Reason: Pain 1-10 Or Fever) insulin degludec 200 unit/mL (3 mL) insulin pen 40 unit SC QHS nitroglycerin [Nitrostat] 0.4 mg tablet, sublingual 0.4 mg sublingual Q5-15M PRN (Reason: chest pain) Qty: 25 3RF Rx Instructions: do not exceed 3 doses per episode topiramate 100 mg tablet 50 mg PO BID cholecalciferol (vitamin D3) 125 mcg (5,000 unit) capsule 125 mcg PO DAILY escitalopram oxalate [Lexapro] 10 mg tablet 10 mg PO DAILY (DME) BP cuff See Rx Instructions .Route .MEDSUPPLY Qty: 1 0RF Rx Instructions: As directed trazodone 150 mg tablet 300 mg PO QHS ropinirole 1 mg tablet 2 mg PO BID acetaminophen [Tylenol Extra Strength] 500 mg tablet 1,000 mg PO Q4H PRN (Reason: pain) Eliquis 5 mg tablet 5 mg PO DAILY Gemtesa 75 mg tablet 75 mg PO DAILY fesoterodine 4 mg tablet extended release 24 hr 4 mg PO DAILY losartan 25 mg tablet 25 mg PO DAILY Qty: 30 11RF furosemide 20 mg tablet 20 mg PO DAILY tizanidine 4 mg capsule 4 mg PO Q8H Tremfya 100 mg/mL auto-injector 100 mg subcut .[id number] metoprolol succinate 50 mg tablet extended release 24 hr 25 mg PO DAILY loperamide [Anti-Diarrheal (loperamide)] 2 mg capsule 4 mg PO Q2H PRN (Reason: diarrhea) Rx Instructions: after first loose stool, 1 tablet after each subsequent loose stool but no more than 4 tablets in 24 hours atorvastatin 40 mg tablet 40 mg PO QDAY Qty: 30 6RF Referrals / Follow Up: Doe Orr DO [Med Staff - Active Staff] - See Referral Note (1-2 mos) Isra Rubalcava MD [Primary Care Provider] - Within 1 Month (1) Fever Qualifiers: Fever type: unspecified Qualified Code(s): R50.9 - Fever, unspecified
--- NOTE | 2023-05-17 14:43 | DS.PCM_ITS ---
Providers Date of Admission: 05/13/23 Primary Care Physician: Dr. Isra Rubalcava MD Consultations 05/13/23 01:59 Consult: Gastroenterology Routine Consulting Provider: [facility] Reason for Consult: Elevated Bili/LFT, N/V, Fever EMERGENT Consult: No MD Notified: Yes Date Notified: 05/13/23 Time Notified: 01:26 Method of Notification: Text Reason For Visit: FUO, TRANSAMINITIS/HYPERBILIRUBINEMIA, ENCEPHALOPA Diagnosis Discharge Diagnosis (1) Fever: Status: Acute Code(s): R50.9 - Fever, unspecified Qualifiers: Fever type: unspecified Qualified Code(s): R50.9 - Fever, unspecified (2) Jaundice: Status: Acute Code(s): R17 - Unspecified jaundice (3) Acute encephalopathy: Status: Acute Code(s): G93.40 - Encephalopathy, unspecified (4) Transaminitis: Status: Acute Code(s): R74.01 - Elevation of levels of liver transaminase levels (5) Elevated serum creatinine: Status: Acute Code(s): R79.89 - Other specified abnormal findings of blood chemistry (6) Immunosuppression due to drug therapy: Status: Acute Code(s): D84.821 - Immunodeficiency due to drugs; Z79.899 - Other intermodal customer service (current) drug therapy (7) Hypotension: Status: Acute Code(s): I95.9 - Hypotension, unspecified Plan Acute cholangitis -Postop day 3 status post ERCP with noted choledocholithiasis -Cholangiogram thought to display bile leak however HIDA scan was negative -Procalcitonin elevated at 2.2 on admission -Blood cultures are with no growth to date -Will need a total of 7 days antibiotics to complete antibiotic course for cholangitis -Continue Zosyn day 4 of 7 for antibiotics -Continue regular diet Transaminitis/jaundice secondary to acute choledocholithiasis -Transaminases are markedly improved and have almost normalized at this point -Bilirubin has normalized -We will repeat in a.m. CKD stage II -Current serum creatinine is 0.98 and serum creatinine elevation has normalized -Baseline serum creatinine between 0.8 and 1.0 -Slight bump in creatinine today to 1.11 however I suspect p.o. intake has been poor and I encouraged this to increase -We will continue diuresis for now and repeat BMP in a.m. Fall -Likely related to acute illness -PT/OT following--> will need placement at discharge -Referral to TCU and excepting this is pending on participation in therapy today -PRECERT will be needed prior to discharge [facility] -Patient is untreated due to her resistance to CPAP -Continue nocturnal oxygen as needed to keep sats greater than 88% CAD/HTN/HPL -CABG-->JAY to LAD, SVG to OM2 and sequentially to diagonal, SVG to PDA 06/01/17 -Continue aspirin -Continue home statin -Continue home metoprolol -Continue home Lasix -Blood pressures have been elevated despite home treatment and patient admits that they have been elevated at home I did increase her losartan yesterday afternoon from 25 to 75 mg and she still has been really elevated so will increase to 100 mg and continue her home metoprolol as is -This was added this morning blood pressure still higher than I would like to see them but improved overall heart rates are on the lower side so unable to increase metoprolol and will add Norvasc 5 mg PAF -Remains in NSR -Continue home beta-tawana -Continue home apixaban DM-2 -Continue home Lantus at 40 units nightly -A.m. fasting sugar was 130 -SSI as ordered -Accu-Cheks -Hemoglobin A1c is 7.0 Allergic rhinitis -Continue home Singulair History of DVT/PE -Continue apixaban History of stroke -Continue home aspirin -CT head shows small old infarct in the right frontal lobe that is stable -Continue apixaban -Continue home statin GERD -Transition to p.o. PPI Anxiety/depression -Continue home Xanax will restart to avoid withdrawal as she takes this regularly -Continue home Lexapro -Continue home trazodone Restless leg syndrome -Continue Requip Neuropathy -Continue Topamax Psoriasis -Patient is no longer taking Tremfya Overactive bladder -Restart Gemseta DVT prophylaxis -Continue apixaban 5 mg p.o. twice daily CODE STATUS -DNR CCA with no intubation Disposition: -Patient is medically stable for discharge -Will need therapy and placement with TCU being the plan at this time -Awaiting acceptance and pre-CERT from insurance Medications at Discharge Home Medications aspirin 81 mg tablet,delayed release 81 mg PO QDAY blood thinner 11/03/17 atorvastatin 40 mg tablet 40 mg PO QDAY cholesterol #30 tabs 03/02/18 alprazolam 0.5 mg tablet 0.5 mg PO 4X/DAY anxiety 11/23/19 montelukast 10 mg tablet 10 mg PO DAILY allergies 12/29/20 nitroglycerin 0.4 mg sublingual tablet (Nitrostat) 0.4 mg sublingual Q5-15M PRN chest pain #25 tabs 10/21/21 BP cuff #1 ea 01/20/22 cholecalciferol (vitamin D3) 125 mcg (5,000 unit) capsule 125 mcg PO DAILY vitamin 01/20/22 escitalopram oxalate 10 mg tablet (Lexapro) 10 mg PO DAILY depression 01/20/22 topiramate 100 mg tablet 50 mg PO BID nerve pain 01/20/22 acetaminophen 500 mg tablet (Tylenol Extra Strength) 1,000 mg PO Q4H PRN pain 05/19/22 hydrocodone-acetaminophen 5-325mg 5mg-325mg ([place]) 1 tab PO Q12H PRN Pain 1-10 Or Fever 05/19/22 ropinirole 1 mg tablet 2 mg PO BID pain 05/19/22 trazodone 150 mg tablet 300 mg PO QHS sleep 05/19/22 apixaban 5 mg tablet (Eliquis) 5 mg PO DAILY blood thinner 04/20/23 furosemide 20 mg tablet 20 mg PO DAILY water pill 05/12/23 tizanidine 4 mg capsule 4 mg PO Q8H spasms 05/12/23 metoprolol succinate 50 mg tablet,extended release 24 hr 25 mg PO DAILY BP 05/13/23 loperamide 2 mg capsule (Anti-Diarrheal (loperamide)) 4 mg PO Q2H PRN diarrhea 05/16/23 amlodipine 5 mg tablet 5 mg PO DAILY #0 tabs 05/17/23 insulin glargine-yfgn 100 unit/mL (3 mL) subcutaneous pen 40 unit (0.4 mL) subcut QHS #15 mL 05/17/23 levofloxacin 750 mg tablet 750 mg PO DAILY #3 tabs 05/17/23 losartan 100 mg tablet 100 mg PO DAILY #1 TAB 05/17/23 Weight / BMI Weight Weight: 89.6 kg Body Mass Index (BMI) 36.3 ABG / Lab / Microbiology Data 05/16/23 06:39 05/17/23 06:30 Laboratory: Laboratory Results - last 24 hr 05/16/23 17:38: POC Glucose 149 H 05/16/23 22:51: POC Glucose 240 H 05/17/23 06:30: Sodium 143, Potassium 3.2 L, Chloride 110 H, Carbon Dioxide 26.0, Anion Gap 7, BUN 11, Creatinine 1.15 H, Estim Creat Clear Calc 30.86, Est GFR (MDRD) Af Amer 58 L, Est GFR (MDRD) Non-Af 48 L, BUN/Creatinine Ratio 9.6 L, Glucose 129 H, Calcium 9.4, Total Bilirubin 0.70, AST 27, ALT 77 H, Alkaline Phosphatase 154 H, Total Protein 6.9, Albumin 2.5 L, Globulin 4.4 H, Albumin/Globulin Ratio 0.6 L 05/17/23 07:11: POC Glucose 113 H 05/17/23 12:26: POC Glucose 285 H Microbiology: Microbiology 05/12/23 21:40 Blood Culture (Wb) - Anticubital Left Blood Culture - Preliminary No growth in 48 hours. 05/12/23 21:20 Blood Culture (Wb) - Anticubital Right Blood Culture - Preliminary No growth in 48 hours. 05/12/23 21:30 Urine Catheter - Catheter Urine Culture - Final Culture exhibits no growth. 05/13/23 02:15 Mucosa - Nasopharyngeal Coronavirus COVID-19 PCR - Final D/C Instructions Please Follow Up With: Ra KirbyhsDO dom Discharge Plan Admission Admit Date/Time: 05/13/23 01:24 Primary Reason for Your Visit: Fever/nausea/vomiting/confusion Attending Provider: Alee Yao Primary Care Provider: Isra Rubalcava Consulting Providers: Octavia Gruber Discharge Orders/Prescriptions Prescriptions: New insulin glargine-yfgn 100 unit/mL (3 mL) Insulin Pen 40 unit subcut QHS Qty: 15 0RF amlodipine 5 mg Tablet 5 mg PO DAILY Qty: 0 0RF losartan 100 mg Tablet 100 mg PO DAILY Qty: 1 0RF levofloxacin 750 mg tablet 750 mg PO DAILY Qty: 3 0RF Continued aspirin 81 mg tablet,delayed release (DR/EC) 81 mg PO QDAY alprazolam 0.5 mg tablet 0.5 mg PO 4X/DAY montelukast 10 mg tablet 10 mg PO DAILY hydrocodone-acetaminophen [[place]] 5-325 mg tablet 1 tab PO Q12H PRN (Reason: Pain 1-10 Or Fever) nitroglycerin [Nitrostat] 0.4 mg tablet, sublingual 0.4 mg sublingual Q5-15M PRN (Reason: chest pain) Qty: 25 3RF Rx Instructions: do not exceed 3 doses per episode topiramate 100 mg tablet 50 mg PO BID cholecalciferol (vitamin D3) 125 mcg (5,000 unit) capsule 125 mcg PO DAILY escitalopram oxalate [Lexapro] 10 mg tablet 10 mg PO DAILY (DME) BP cuff See Rx Instructions .Route .MEDSUPPLY Qty: 1 0RF Rx Instructions: As directed trazodone 150 mg tablet 300 mg PO QHS ropinirole 1 mg tablet 2 mg PO BID acetaminophen [Tylenol Extra Strength] 500 mg tablet 1,000 mg PO Q4H PRN (Reason: pain) Eliquis 5 mg tablet 5 mg PO DAILY furosemide 20 mg tablet 20 mg PO DAILY tizanidine 4 mg capsule 4 mg PO Q8H metoprolol succinate 50 mg tablet extended release 24 hr 25 mg PO DAILY loperamide [Anti-Diarrheal (loperamide)] 2 mg capsule 4 mg PO Q2H PRN (Reason: diarrhea) Rx Instructions: after first loose stool, 1 tablet after each subsequent loose stool but no more than 4 tablets in 24 hours atorvastatin 40 mg tablet 40 mg PO QDAY Qty: 30 6RF Discontinued insulin degludec 200 unit/mL (3 mL) insulin pen 40 unit SC QHS Gemtesa 75 mg tablet 75 mg PO DAILY fesoterodine 4 mg tablet extended release 24 hr 4 mg PO DAILY losartan 25 mg tablet 25 mg PO DAILY Qty: 30 11RF Tremfya 100 mg/mL auto-injector 100 mg subcut [id number] Referrals / Follow Up: Doe Orr DO [Med Staff - Active Staff] - See Referral Note (1-2 mos) Isra Rubalcava MD [Primary Care Provider] - Within 1 Month Disposition Disposition (needs filled in before D/C Order can be placed): [facility] Facility Charges/Coding Visit Charges Inpatient E&M: 97597 SNF Disch >30 Min
--- NOTE | 2023-05-17 14:43 | PCM.DC.SUM ---
Providers Date of Admission: 05/13/23 Primary Care Physician: Dr. Isra Rubalcava MD Consultations 05/13/23 01:59 Consult: Gastroenterology Routine Consulting Provider: Prudencio G[facility] Reason for Consult: Elevated Bili/LFT, N/V, Fever EMERGENT Consult: No MD Notified: Yes Date Notified: 05/13/23 Time Notified: 01:26 Method of Notification: Text Reason For Visit: FUO, TRANSAMINITIS/HYPERBILIRUBINEMIA, ENCEPHALOPA Diagnosis Discharge Diagnosis (1) Fever: Status: Acute Code(s): R50.9 - Fever, unspecified Qualifiers: Fever type: unspecified Qualified Code(s): R50.9 - Fever, unspecified (2) Jaundice: Status: Acute Code(s): R17 - Unspecified jaundice (3) Acute encephalopathy: Status: Acute Code(s): G93.40 - Encephalopathy, unspecified (4) Transaminitis: Status: Acute Code(s): R74.01 - Elevation of levels of liver transaminase levels (5) Elevated serum creatinine: Status: Acute Code(s): R79.89 - Other specified abnormal findings of blood chemistry (6) Immunosuppression due to drug therapy: Status: Acute Code(s): D84.821 - Immunodeficiency due to drugs; Z79.899 - 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 therapy (7) Hypotension: Status: Acute Code(s): I95.9 - Hypotension, unspecified Medications at Discharge Home Medications aspirin 81 mg tablet,delayed release 81 mg PO QDAY blood thinner 11/03/17 atorvastatin 40 mg tablet 40 mg PO QDAY cholesterol #30 tabs 03/02/18 alprazolam 0.5 mg tablet 0.5 mg PO 4X/DAY anxiety 11/23/19 montelukast 10 mg tablet 10 mg PO DAILY allergies 12/29/20 nitroglycerin 0.4 mg sublingual tablet (Nitrostat) 0.4 mg sublingual Q5-15M PRN chest pain #25 tabs 10/21/21 BP cuff #1 ea 01/20/22 cholecalciferol (vitamin D3) 125 mcg (5,000 unit) capsule 125 mcg PO DAILY vitamin 01/20/22 escitalopram oxalate 10 mg tablet (Lexapro) 10 mg PO DAILY depression 01/20/22 topiramate 100 mg tablet 50 mg PO BID nerve pain 01/20/22 acetaminophen 500 mg tablet (Tylenol Extra Strength) 1,000 mg PO Q4H PRN pain 05/19/22 hydrocodone-acetaminophen 5-325mg 5mg-325mg ([place]) 1 tab PO Q12H PRN Pain 1-10 Or Fever 05/19/22 ropinirole 1 mg tablet 2 mg PO BID pain 05/19/22 trazodone 150 mg tablet 300 mg PO QHS sleep 05/19/22 apixaban 5 mg tablet (Eliquis) 5 mg PO DAILY blood thinner 04/20/23 furosemide 20 mg tablet 20 mg PO DAILY water pill 05/12/23 tizanidine 4 mg capsule 4 mg PO Q8H spasms 05/12/23 metoprolol succinate 50 mg tablet,extended release 24 hr 25 mg PO DAILY BP 05/13/23 loperamide 2 mg capsule (Anti-Diarrheal (loperamide)) 4 mg PO Q2H PRN diarrhea 05/16/23 amlodipine 5 mg tablet 5 mg PO DAILY #0 tabs 05/17/23 insulin glargine-yfgn 100 unit/mL (3 mL) subcutaneous pen 40 unit (0.4 mL) subcut QHS #15 mL 05/17/23 levofloxacin 750 mg tablet 750 mg PO DAILY #3 tabs 05/17/23 losartan 100 mg tablet 100 mg PO DAILY #1 TAB 05/17/23 Hospital Course Operations ERCP Procedures EKG and - (The brain/chest x-ray/gallbladder ultrasound/CT abdomen pelvis/CT lumbar spine/HIDA scan) Summary of Care Provided Minutes Spent on Discharge: 41 Hospital Course: Mrs. Galo is an 82-year-old white female with a complicated past medical history who presented to the emergency department at [facility] late in the evening on 05/12/2023 with fevers and altered mental status. She was reported to have a temperature of 102.9 of sudden onset that was worsening. She had decreased oral intake and a slight cough with chronic rhinorrhea on presentation. She had fallen off the toilet and was found between the toilet and the wall which prompted her family to bring her in for further evaluation. At baseline she lives in assisted living. She did not recall any of these events happening and was very confused on presentation. Family reported she had an episode of nausea and vomiting about 2 weeks prior that lasted about 3 days but resolved independently and had no associated fever. Upon presentation she had a temperature of 100.1, heart rate 83, blood pressure was 169/91, respiratory rate 16 and oxygen saturations were 92% on room air. She was subsequently placed on 2 L nasal cannula which improved her saturations to 97%. Her CBC was unremarkable however she did have a left shift with an 82.1% neutrophilia. Coags were normal. Chemistry panel showed normal lites with a creatinine of 1.19 and a glucose of 169. The patient is diabetic at baseline. Her transaminases were markedly elevated with a total bilirubin of 3.2, AST of 483, ALT of 345 and an alk phos of 332. Her ammonia level is normal. Her procalcitonin was 2.29. Her lactic acid was within normal limits at 1.4. Chest x-ray showed no acute cardiopulmonary processes. Right upper quadrant ultrasound was performed which showed history of cholecystectomy and possible mild intrahepatic biliary duct dilation. COVID testing is negative. Blood and urine cultures were obtained the emergency department and she was placed on Zosyn and vancomycin was added. She complained of some abdominal pain so we get a CT of the abdomen pelvis with IV and p.o. contrast which showed sigmoid diverticulosis, fatty infiltration of liver, dilated intrahepatic biliary ducts more prominent in the left lobe and atelectasis of the left lobe of the liver as well as coronary artery calcification. I discussed these findings with gastroenterology and they took her for an ERCP on 05/13/2023. She was found to have choledocholithiasis and complete removal was accomplished via biliary sphincterotomy and balloon extraction. The biliary tree was swept and the middle third of the main bile duct was dilated and stented. Her liver enzymes dramatically improved throughout the rest of her hospital course and had just about normalized at the time of discharge. Post ERCP imaging showed progressive extraluminal contrast and HIDA scan was recommended to assess for bile leak. HIDA scan was performed and was found to be normal. We will restart her Eliquis which she tolerated well. Postprocedure she required some supplemental oxygen but had been weaned to room air at the time of discharge. She was maintained on Zosyn throughout her hospital course and will be discharged on Levaquin to complete a total of a 7-day course of antibiotics. She was evaluated by physical and Occupational Therapy and they felt that she would benefit from ongoing physical and occupational therapy prior to returning to her assisted living facility. She was excepted at the transitional care unit and we obtained pre-CERT on 05/17/2023. Her blood pressure was fairly elevated throughout her hospital stay and we increased her low from 25 mg daily to 100 mg daily and added Norvasc 10 mg daily. Her blood pressure has improved and is closer to goal range but she will need to have continued blood pressure monitoring and possible medication titration. She will need follow-up with Dr. Orr in the next 4 to 8 weeks and with her primary care physician within the next 1 month preferably 1 to 2 weeks after discharge from TCU. Discharge diagnoses: Acute cholangitis Obstructive choledocholithiasis Transaminitis/hyperbilirubinemia-resolved Debility CKD stage II Fall MARIVEL Hypertension Hyperlipidemia CAD PAF DM-2 Allergic rhinitis History of DVT/PE History of stroke Anxiety Depression GERD Restless leg syndrome Neuropathy Psoriasis Overactive bladder Physical Exam Narrative P Const alert, oriented x3, no apparent distress and well nourished; Negative for average body habitus Constitutional Narrative: Obese, elderly, white female, sitting up in bed, watching television, appears comfortable and nontoxic, resting comfortably but awakens easily General Appearance: cooperative, comfortable, well kempt and well developed Orientation / Consciousness: awake, oriented to person, oriented to place and oriented to time Exam Limitations: no limitations Nutritional Appearance: obese HEENT normocephalic, head/scalp atraumatic and moist oral mucous membranes HEENT Narrative: Mild hearing loss, Mallampati is 3, no thrush Eyes PERRL, EOMs intact bilaterally and conjunctivae normal Eyes Narrative: No scleral icterus Neck no lymphadenopathy and supple Neck Narrative: Trachea midline, no thyroid enlargement Resp normal respiratory effort, no retractions, no use of accessory muscles and clear to auscultation bilaterally Auscultation: Negative for rales, rhonchi or wheezes Cardio regular rate, regular rhythm, S1 normal heart sound, S2 normal heart sound, no murmurs, no rub, no gallops and no clicks GI normal to inspection, nondistended, normoactive bowel sounds, soft to palpation and non-tender Extremity no clubbing, cyanosis or edema Extremity Narrative: Pulses are 2+ Skin no rashes or lesions noted, no wounds, skin turgor normal and no jaundice Neuro oriented x3, CN's II-XII intact bilaterally, moves all extremities and no focal motor deficits Neuro Narrative: Generalized weakness proximal greater than distal Speech: speech normal Psych affect normal Psych Narrative: Eye contact is good, interaction is normal, patient is pleasant Weight / BMI Weight Weight: 89.6 kg Body Mass Index (BMI) 36.3 ABG / Lab / Microbiology Data 05/16/23 06:39 05/17/23 06:30 Laboratory: Laboratory Results - last 24 hr 05/16/23 17:38: POC Glucose 149 H 05/16/23 22:51: POC Glucose 240 H 05/17/23 06:30: Sodium 143, Potassium 3.2 L, Chloride 110 H, Carbon Dioxide 26.0, Anion Gap 7, BUN 11, Creatinine 1.15 H, Estim Creat Clear Calc 30.86, Est GFR (MDRD) Af Amer 58 L, Est GFR (MDRD) Non-Af 48 L, BUN/Creatinine Ratio 9.6 L, Glucose 129 H, Calcium 9.4, Total Bilirubin 0.70, AST 27, ALT 77 H, Alkaline Phosphatase 154 H, Total Protein 6.9, Albumin 2.5 L, Globulin 4.4 H, Albumin/Globulin Ratio 0.6 L 05/17/23 07:11: POC Glucose 113 H 05/17/23 12:26: POC Glucose 285 H Microbiology: Microbiology 05/12/23 21:40 Blood Culture (Wb) - Anticubital Left Blood Culture - Preliminary No growth in 48 hours. 05/12/23 21:20 Blood Culture (Wb) - Anticubital Right Blood Culture - Preliminary No growth in 48 hours. 05/12/23 21:30 Urine Catheter - Catheter Urine Culture - Final Culture exhibits no growth. 05/13/23 02:15 Mucosa - Nasopharyngeal Coronavirus COVID-19 PCR - Final D/C Instructions Please Follow Up With: Friend,Doe, DO Meaningful Use Info Meaningful Use Diagnoses (Choose all that apply): None applicable Discharge Plan Admission Admit Date/Time: 05/13/23 01:24 Primary Reason for Your Visit: Fever/nausea/vomiting/confusion Attending Provider: Alee Yao Primary Care Provider: Isra Rubalcava Consulting Providers: Octavia Gruber Discharge Orders/Prescriptions Prescriptions: New insulin glargine-yfgn 100 unit/mL (3 mL) Insulin Pen 40 unit subcut QHS Qty: 15 0RF amlodipine 5 mg Tablet 5 mg PO DAILY Qty: 0 0RF losartan 100 mg Tablet 100 mg PO DAILY Qty: 1 0RF levofloxacin 750 mg tablet 750 mg PO DAILY Qty: 3 0RF Continued aspirin 81 mg tablet,delayed release (DR/EC) 81 mg PO QDAY alprazolam 0.5 mg tablet 0.5 mg PO 4X/DAY montelukast 10 mg tablet 10 mg PO DAILY hydrocodone-acetaminophen [[place]] 5-325 mg tablet 1 tab PO Q12H PRN (Reason: Pain 1-10 Or Fever) nitroglycerin [Nitrostat] 0.4 mg tablet, sublingual 0.4 mg sublingual Q5-15M PRN (Reason: chest pain) Qty: 25 3RF Rx Instructions: do not exceed 3 doses per episode topiramate 100 mg tablet 50 mg PO BID cholecalciferol (vitamin D3) 125 mcg (5,000 unit) capsule 125 mcg PO DAILY escitalopram oxalate [Lexapro] 10 mg tablet 10 mg PO DAILY (DME) BP cuff See Rx Instructions .Route .MEDSUPPLY Qty: 1 0RF Rx Instructions: As directed trazodone 150 mg tablet 300 mg PO QHS ropinirole 1 mg tablet 2 mg PO BID acetaminophen [Tylenol Extra Strength] 500 mg tablet 1,000 mg PO Q4H PRN (Reason: pain) Eliquis 5 mg tablet 5 mg PO DAILY furosemide 20 mg tablet 20 mg PO DAILY tizanidine 4 mg capsule 4 mg PO Q8H metoprolol succinate 50 mg tablet extended release 24 hr 25 mg PO DAILY loperamide [Anti-Diarrheal (loperamide)] 2 mg capsule 4 mg PO Q2H PRN (Reason: diarrhea) Rx Instructions: after first loose stool, 1 tablet after each subsequent loose stool but no more than 4 tablets in 24 hours atorvastatin 40 mg tablet 40 mg PO QDAY Qty: 30 6RF Discontinued insulin degludec 200 unit/mL (3 mL) insulin pen 40 unit SC QHS [place] 75 mg tablet 75 mg PO DAILY fesoterodine 4 mg tablet extended release 24 hr 4 mg PO DAILY losartan 25 mg tablet 25 mg PO DAILY Qty: 30 11RF Tremf[place] 100 mg/mL auto-injector 100 mg subcut .[id number] Referrals / Follow Up: Friend,Doe, [Med Staff - Active Staff] - See Referral Note (1-2 mos) Isra Rubalcava MD [Primary Care Provider] - Within 1 Month Disposition Disposition (needs filled in before D/C Order can be placed): Detention Facility Charges/Coding Visit Charges Inpatient E&M: 39143 SNF Disch >30 Min
[2023-05-17 16:05] VITALS: BP 143/53; PULSE 62; RESP 16; TEMP 36.8; O2SAT 96
[2023-05-17 17:41] LABS: Bedside Glucose 204 mg/dL (74-106)
== END 2023-05-17 18:10 | disposition skilled nursing facility (03) | DRG 444 ==
LOC: ED 05-13 00:39 → MS3 05-13 01:36
PROVIDERS: Anesthesiology; Internal Medicine Gastroenterology; Admitting Provider Family Medicine; Emergency Provider Emergency Medicine; PCP Family Medicine; Visit Provider Internal Medicine
PROC: 0FC98ZZ Extirpation of Matter from Common Bile Duct, Via Natural or Artificial Opening Endoscopic (ICD-10-PCS; CPT 43260; principal; 2023-05-13 16:10)
DX: K80.33 Calculus of bile duct with acute cholangitis with obstruction (principal); G92.8 Other toxic encephalopathy; D84.821 Immunodeficiency due to drugs; I95.9 Hypotension, unspecified; E11.22 Type 2 diabetes mellitus with diabetic chronic kidney disease; E11.40 Type 2 diabetes mellitus with diabetic neuropathy, unspecified; I48.0 Paroxysmal atrial fibrillation; Z79.4 Long term (current) use of insulin; F32.A Depression, unspecified; I12.9 Hypertensive chronic kidney disease with stage 1 through stage 4 chronic kidney disease, or unspecified chronic kidney disease; G25.81 Restless legs syndrome; N18.2 Chronic kidney disease, stage 2 (mild); J30.9 Allergic rhinitis, unspecified; K21.9 Gastro-esophageal reflux disease without esophagitis; I25.10 Atherosclerotic heart disease of native coronary artery without angina pectoris; E78.5 Hyperlipidemia, unspecified; G47.33 Obstructive sleep apnea (adult) (pediatric); L40.9 Psoriasis, unspecified; F41.9 Anxiety disorder, unspecified; K57.30 Diverticulosis of large intestine without perforation or abscess without bleeding; E66.9 Obesity, unspecified; Z68.36 Body mass index [BMI] 36.0-36.9, adult; N32.81 Overactive bladder; Z79.01 Long term (current) use of anticoagulants; Z79.82 Long term (current) use of aspirin; Z66 Do not resuscitate; Z20.822 Contact with and (suspected) exposure to COVID-19; Z79.899 Other long term (current) drug therapy; Z95.1 Presence of aortocoronary bypass graft; Z87.891 Personal history of nicotine dependence; Z86.718 Personal history of other venous thrombosis and embolism; Z86.711 Personal history of pulmonary embolism; Z86.73 Personal history of transient ischemic attack (TIA), and cerebral infarction without residual deficits; Z90.49 Acquired absence of other specified parts of digestive tract
CPT/HCPCS: 36415; 70450; 71045; 72132; 74177; 74328; 76000; 76705; 78226; 80053; 80074; 80307; 80329; 81001; 82077; 82140; 82550; 82962; 83036; 83605; 83735; 84100; 84145; 85025; 85610; 85730; 87040; 87086; 87635; 87641; 93005; 94668; 97110; 97162; 97166; 97530; 97535; 99285; A9537; J7030; J7050; P9612; Q9967; A4216; G0480; J2405

== ENCOUNTER 2023-05-17 18:15 | Inpatient (IN) | payer MEDICARE, SELFPAY ==
[2023-05-17 18:43] VITALS: BP 140/50; PULSE 60; RESP 18; TEMP 36.6; O2SAT 95; BMI 35.2
--- NOTE | 2023-05-17 19:14 | HP.PCM_ITS ---
HPI - General General Date of Admission: 05/17/23 Date of Service: 05/18/23 Chief Complaint: Here for rehabilitation. HPI Narrative 05/12/2023 FRANK GARCÍA, is a 82 Female who presents to [facility] Emergency Department with fever. 05/12/2023 EKG sinus rhythm with first degree AV block. Fever 102.9, change in mental status, decrease oral intake, decreased awareness, decreased orientation. Chronic runny nose, slight cough, blood in urine. Fell from toilet, found between toilet and wall. on blood thinner, may have hit head. Pancultured, started on antibiotics. Bili 3.2, AST 483, ALT 354, Alk phos elevated. Gallbladder ultrasound showed mild biliary ductal dilatation, no stone. 05/13/2023 Admit to Hospital for fall, confusion, fever, nausea/vomiting. Zosyn IV for fever unknown origin. Consult GI for jaundice, elevated liver enzymes. 05/13/2023 Zosyn, Vancomycin for fever, cultures pending. IV fluid bolus for hypotension. MRCP unable due to bladder stimulator. 05/13/2023 Dr. Orr ERCP sphincterotomy, balloon extraction of choledocholithiasis. 05/14/2023 Feeling much better, more energy. Nausea/vomiting, fever, confusion resolved. Abdominal pain improved. Zosyn IV x 7 days, cholangiogram possible bile leak for acute cholangitis. Liver enzymes, bilirubin improving. 05/15/2023 Hydralazine x 2 for elevated blood pressure. Plan TCU. HIDA scan negative, blood cultures negative to date, Finish Zosyn 7 days for acute cholangitis. Liver enzymes markedly improved, Bilirubin normal. 05/16/2023 Not eating much, on regular diet. Liver enzymes almost normal. 05/17/2023 Admit to TCU with debility, here for rehabilitation, strengthening, prior to discharge home to [facility]. 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 Morbid obesity MARIVEL (obstructive sleep apnea) Osteoarthritis Paroxysmal atrial fibrillation Pulmonary embolism Stroke Home Medications aspirin 81 mg tablet,delayed release 81 mg PO QDAY blood thinner 11/03/17 [History Last Taken Unknown] atorvastatin 40 mg tablet 40 mg PO QDAY cholesterol #30 tabs 03/02/18 [Rx Last Taken 05/17/23] alprazolam 0.5 mg tablet 0.5 mg PO 4X/DAY anxiety 11/23/19 [History Last Taken 05/12/23] montelukast 10 mg tablet 10 mg PO DAILY allergies 12/29/20 [History Last Taken Unknown] nitroglycerin 0.4 mg sublingual tablet (Nitrostat) 0.4 mg sublingual Q5-15M PRN chest pain #25 tabs 10/21/21 [Rx Last Taken Unknown] BP cuff #1 ea 01/20/22 [Rx Last Taken Unknown] cholecalciferol (vitamin D3) 125 mcg (5,000 unit) capsule 125 mcg PO DAILY vitamin 01/20/22 [History Last Taken Unknown] escitalopram oxalate 10 mg tablet (Lexapro) 10 mg PO DAILY depression 01/20/22 [History Last Taken Unknown] topiramate 100 mg tablet 50 mg PO BID nerve pain 01/20/22 [History Last Taken U nknown] acetaminophen 500 mg tablet (Tylenol Extra Strength) 1,000 mg PO Q4H PRN pain 05/19/22 [History Last Taken Unknown] hydrocodone-acetaminophen 5-325mg 5mg-325mg ([place]) 1 tab PO Q12H PRN Pain 1-10 Or Fever 05/19/22 [History Last Taken Unknown] ropinirole 1 mg tablet 2 mg PO BID pain 05/19/22 [History Last Taken Unknown] trazodone 150 mg tablet 300 mg PO QHS sleep 05/19/22 [History Last Taken Unknown] apixaban 5 mg tablet (Eliquis) 5 mg PO DAILY blood thinner 04/20/23 [History Last Taken 05/12/23] furosemide 20 mg tablet 20 mg PO DAILY water pill 05/12/23 [History Last Taken Unknown] tizanidine 4 mg capsule 4 mg PO Q8H spasms 05/12/23 [History Last Taken Unknown] metoprolol succinate 50 mg tablet,extended release 24 hr 25 mg PO DAILY BP 05/13/23 [History Last Taken Unknown] loperamide 2 mg capsule (Anti-Diarrheal (loperamide)) 4 mg PO Q2H PRN diarrhea 05/16/23 [History Last Taken Unknown] amlodipine 5 mg tablet 5 mg PO DAILY BP #0 tabs 05/17/23 [Rx Last Taken Unknown] insulin glargine-yfgn 100 unit/mL (3 mL) subcutaneous pen 40 unit (0.4 mL) subcut QHS blood sugar #15 mL 05/17/23 [Rx Last Taken Unknown] levofloxacin 750 mg tablet 750 mg PO DAILY antibiotic #3 tabs 05/17/23 [Rx Last Taken Unknown] losartan 100 mg tablet 100 mg PO DAILY BP #1 TAB 05/17/23 [Rx Last Taken Unkno wn] Allergy/AdvReac Type Severity Reaction Status Date / Time insulin isophane (NPH) Allergy Severe heart burn Verified 05/12/23 20:52 Anesthetics - Amide Type - Allergy NEEDS Verified 05/12/23 20:52 Select A FOLLOW-UP Anesthetics - Tyra Type- Allergy NEEDS Verified 05/12/23 20:52 Parabens FOLLOW-UP latex Allergy Unknown Verified 05/12/23 20:52 promethazine [From Phenergan] Allergy PT UNSURE Verified 05/12/23 20:52 OF REACTION sitagliptin phosphate Allergy Unknown Verified 05/12/23 20:52 [From Januvia] insulin degludec AdvReac Mild Nausea Verified 05/12/23 20:52 [From Xultophy 100/3.6] liraglutide AdvReac Mild Nausea Verified 04/20/23 14:41 [From Xultophy 100/3.6] atorvastatin [From Lipitor] AdvReac Unknown Unknown Verified 05/12/23 20:52 codeine AdvReac Unknown Unknown Verified 05/12/23 20:52 tizanidine AdvReac Unknown Unknown Verified 05/12/23 20:52 Family History Father CAD (coronary artery disease) Mother CAD (coronary artery disease) Brother CAD (coronary artery disease) Surgical History H/O coronary artery bypass surgery (~06/01/17) History of bilateral cataract extraction History of cholecystectomy History of knee surgery History of total hysterectomy Social History household members: none housing: assisted living facility Smoking Status: Former smoker how long ago did patient quit smokin years ago second hand exposure: Yes alcohol intake: never substance use type: does not use caffeine: No ROS Constitutional Constitutional: Denies chills, fever(s) or weight gain ENT HEENT: Denies headache(s), nasal congestion or nasal discharge Cardiovascular Cardiovascular: Denies chest pain or palpitations Respiratory/Chest Respiratory/Chest: Denies cough, excessive phlegm production or shortness of breath with exertion Gastrointestinal Gastrointestinal: Denies abdominal pain, nausea or vomiting Genitourinary Genitourinary: Denies dysuria Musculoskeletal Musculoskeletal: Denies joint pain or joint swelling Integumentary Integumentary: Denies rash or wounds Neurologic Neurologic: Denies focal weakness, numbness or tingling Psychiatric Psychiatric: Denies anxiety, auditory hallucinations, depression, homicidal ideation or suicidal ideation Vital Signs Vital Signs Vital Signs: 05/17/23 18:43 Temperature 97.8 F Temperature Source Temporal Pulse Rate 60 Respiratory Rate 18 Blood Pressure 140/50 H Blood Pressure Mean 80 Blood Pressure Source Monitor Blood Pressure Position Supine Blood Pressure Location Right Arm Pulse Ox 95 Oxygen Delivery Method Room Air Weight Weight: 87.407 kg Body Mass Index (BMI) 35.2 Physical Exam Const alert General Appearance: cooperative HEENT normocephalic Eyes PERRL and EOMs intact bilaterally Neck supple, no JVD and no carotid bruits Resp normal respiratory effort, normal air movement and clear to auscultation bilaterally Cardio regular rate and regular rhythm GI normal to inspection, nondistended, normoactive bowel sounds, non-tender and non-distended Extremity normal capillary refill General Extremity: Negative for edema Skin no rashes or lesions noted General Skin Exam: no breakdown Psych affect normal Appearance: appropriate Results Lab / Micro Data 05/18/23 05:24 05/18/23 05:24 Assessment & Plan Assessment/Plan (1) Debility: (2) Fever: QUALIFIERS: Fever type: unspecified Qualified Code(s): R50.9 - Fever, unspecified (3) Encephalopathy: (4) Jaundice: (5) Transaminitis: (6) Acute cholangitis: (7) Choledocholithiasis: (8) Atrial fibrillation: (9) Hypertension: (10) Restrictive lung disease: (11) Coronary artery disease: (12) Hyperlipidemia: QUALIFIERS: Hyperlipidemia type: unspecified Qualified Code(s): E78.5 - Hyperlipidemia, unspecified (13) Anxiety: (14) Allergic rhinitis: (15) Depression: (16) Diabetes mellitus: QUALIFIERS: Qualified Code(s): Z79.4 - custodial (current) use of insulin; Z79.4 - custodial (current) use of insulin; Z79.4 - custodial (current) use of insulin; Z79.4 - custodial (current) use of insulin (17) Restless leg syndrome: (18) Insomnia: (19) Overactive bladder: (20) Muscle spasm: PLAN: Plan 82 year old female with below past medical history hospitalized for fever, encephalopathy, jaundice secondary to acute cholangitis from choledocholithiasis, admitted to TCU with debility, here for rehabilitation, strengthening, prior to discharge home to [facility]. * Debility - PT/OT. * Pain - Tylenol 1000mg q6h prn pain (1-5), [place] 5/325mg 1 tablet Q12H prn pain (6-10). * Bowel - Loperamide 4mg q2h prn. * Adult immunization - Administer pneumonia vaccine, covid19 vaccine, flu vaccine as appropriate. * DVT prophylaxis - on Eliquis. * Anxiety - Xanax 0.5mg 4x/day, stable chronic fdc use, GDR not recommended. * Hypertension - Metoprolol succinate 25mg daily, Losartan 100mg daily, Amlodipine 5mg daily. * Atrial fibrillation - Metoprolol succinate 25mg daily, Eliquis 5mg bid. * Hyperlipidemia - Atorvastatin 40mg qhs. * Depression - Lexapro 10mg daily, Topamax 50mg bid, stable chronic fdc use, GDR not recommended. * Edema - Furosemide 20mg daily. * Diabetes Mellitus II - Glargine 40 units qhs. * Acute cholangitis s/p ERCP - Levaquin 750mg daily thru 05/19/2023. * Coronary artery disease - Metoprolol succinate 25mg daily, Losartan 100mg daily, NTG 0.4mg sl q5m prn. * Allergic rhinitis - Singulair 10mg daily. * Restless leg syndrome - Mirapex 1mg bid. * Muscle spasm - Tizanidine 4mg q8h. * Insomnia - Trazodone 300mg qhs, stable chronic fdc use, GDR not recommended. * Vitamin D deficiency - D3 125mcg daily.
[2023-05-17 20:43] VITALS: PULSE 50; RESP 16; O2SAT 96
[2023-05-17 21:50] LABS: Bedside Glucose 210 mg/dL (74-106)
[2023-05-17] MEDS: Insulin Glargine-YFGN 100 UNIT/ML Pen 40 UNIT SC (22:03)
[2023-05-17] MEDS: Atorvastatin Calcium 40 MG Tablet PO (22:04)
[2023-05-17] MEDS: tiZANidine HCl 2 MG Tablet 4 MG PO (22:04)
[2023-05-17] MEDS: traZODone 100 MG Tablet 150 MG PO (22:04)
[2023-05-17] MEDS: ALPRAZolam 0.5 MG Tablet PO (22:07)
[2023-05-18] MEDS: Acetaminophen 500 MG Tablet 1000 MG PO (03:54)
[2023-05-18] MEDS: 0.9% Saline Lock 10 ML Syringe IV ×2 (03:56→17:20)
[2023-05-18 05:46] LABS: Absolute Lymphocyte Count 2.37 X10^3/uL (0.83-4.51); Absolute Neutrophil Count 3.4 X10^3/uL (2.0-7.7); Basophil# 0.04 X10^3/uL; Basophil% 0.6 % (0-1); Eosinophils% 3.1 % (0-5); Hematocrit 38.5 % (37-47); Hemoglobin 12.1 g/dL (12.0-15.0); Lymphocyte # 2.37 X10^3/ul (0.83-4.51); Lymphocyte % 36.9 % (19-41); Mean Corp Hgb Conc 31.4 g/dL (32-36); Mean Corpuscular Hgb 29.8 pg (27.0-32.0); Mean Corpuscular Volume 94.8 fL (81-99); Mean Platelet Vol. 10.5 fl (6.2-12.0); Monocyte# 0.38 X10^3/uL; Monocyte% 5.9 % (0-10); NRBC Flagged by Analyzer 0 % (0-5); Neutrophil # 3.42 X10^3/uL (2.7-7.7); Neutrophil % 53.2 % (47-70); Platelet Count 234 K/mm3 (150-450); RBC Distribution Width CV 12.4 % (11.6-14.6); RBC Distribution Width SD 43.2 fl (35.1-43.9); Red Blood Count 4.06 M/mm3 (4.2-5.4); White Blood Count 6.4 K/mm3 (4.4-11.0)
[2023-05-18 06:03] LABS: Anion Gap 3 (5-15); BUN 10 mg/dL (7-18); BUN/Creat Ratio 11.6 RATIO (10-20); Calcium,Total 9.5 mg/dL (8.5-10.1); Chloride 112 mmol/L (98-107); Creatinine, Serum 0.86 mg/dL (0.55-1.02); EST Glomerular Filtration Rate 67 mL/min (>60); Est Glom Filt Rate - Afr Amer 81 mL/min (>60); Estimated Creatinine Clearance 41.26 ml/min; Glucose 129 mg/dL (74-106); Potassium 3.6 mmol/L (3.5-5.1); Sodium Level 144 mmol/L (136-145)
[2023-05-18 06:23] VITALS: BP 182/60; PULSE 57
[2023-05-18] MEDS: Cholecalciferol (Vit D3) 125 MCG CAPSULE (5,000 UNITS) PO (06:23)
[2023-05-18] MEDS: Montelukast 10 MG Tablet PO (06:23)
[2023-05-18] MEDS: Metoprolol(XL)Succ 25 MG Tablet PO (06:23)
[2023-05-18] MEDS: Escitalopram Oxalate 10 MG Tablet PO (06:24)
[2023-05-18] MEDS: amLODIPine 5 MG Tablet PO (06:24)
[2023-05-18] MEDS: Losartan Potassium 100 MG Tablet PO (06:24)
[2023-05-18] MEDS: Topiramate 50 MG Tablet PO ×2 (06:24→17:14)
[2023-05-18] MEDS: APIXABAN 5 MG TABLET PO ×2 (06:24→17:13)
[2023-05-18] MEDS: Furosemide 20 MG Tablet PO (06:24)
[2023-05-18] MEDS: Pramipexole Di-HCl 1 MG Tablet PO ×2 (06:24→17:13)
[2023-05-18 06:40] LABS: Bedside Glucose 118 mg/dL (74-106)
[2023-05-18] MEDS: ALPRAZolam 0.5 MG Tablet PO ×4 (07:52→22:06)
[2023-05-18] MEDS: tiZANidine HCl 2 MG Tablet 4 MG PO ×2 (07:53→14:15)
[2023-05-18] MEDS: levoFLOXacin 750 MG Tablet PO (08:22)
[2023-05-18 11:17] LABS: Bedside Glucose 169 mg/dL (74-106)
--- NOTE | 2023-05-18 12:12 | NURSING ---
[employer] Note; Activity Asset Complete Luiza is independent in her choice of daily activities. Her family will bring her things she may need or want. She did state she welcomes visit from the demurrage man when available. At this time she prefers to stay in her room and rest. She will watch tv, read and visit w/family and friends. Staff will continue to offer her daily activities and respect her right to say no.
[2023-05-18 13:43] VITALS: BP 175/62; PULSE 62; RESP 18; TEMP 37.2; O2SAT 97
--- NOTE | 2023-05-18 15:05 | PCM.PN.DRR ---
Documented by User: Rosie Ahumada 05/18/23 15:29 TCU RX Drug Regimen Review Subjective/Objective Subjective/Objective: Subjective: TCU Admission. 82 YOF presented to the ER with fever. Hospitalized for fever, encephalopathy, jaundice secondary to acute cholangitis from choledocholithiasis. Admitted to TCU with debility for strengthening and rehabilitation. Objective: Allergies insulin isophane (NPH) Allergy (Severe, Verified 05/12/23 20:52) heart burn Anesthetics - Amide Type - Select A Allergy (Verified 05/12/23 20:52) NEEDS FOLLOW-UP Anesthetics - Tyra Type- Parabens Allergy (Verified 05/12/23 20:52) NEEDS FOLLOW-UP latex Allergy (Verified 05/12/23 20:52) Unknown only allergic when already sick promethazine [From Phenergan] Allergy (Verified 05/12/23 20:52) PT UNSURE OF REACTION sitagliptin phosphate [From Januvia] Allergy (Verified 05/12/23 20:52) Unknown insulin degludec [From Xultophy 100/3.6] Adverse Reaction (Mild, Verified 05/12/23 20:52) Nausea liraglutide [From Xultophy 100/3.6] Adverse Reaction (Mild, Verified 04/20/23 14:41) Nausea atorvastatin [From Lipitor] Adverse Reaction (Unknown, Verified 05/12/23 20:52) Unknown codeine Adverse Reaction (Unknown, Verified 05/12/23 20:52) Unknown tizanidine Adverse Reaction (Unknown, Verified 05/12/23 20:52) Unknown Current Medications Generic Name Dose Route Start Last Admin Trade Name Freq PRN Reason Stop Dose Admin Acetaminophen 1,000 mg 05/17/23 19:37 05/18/23 03:54 Acetaminophen 500 Mg Tablet PO 1,000 mg Q6H PRN Administration Pain Score 1-5 Hydrocodone Bitart/Acetaminophen 1 tablet 05/17/23 19:38 Hydrocodone Bitartrate/Apap 5/325 Tablet PO Q12H PRN Pain Score 6-10 Alprazolam 0.5 mg 05/17/23 22:00 05/18/23 12:24 Alprazolam 0.5 Mg Tablet PO 0.5 mg 4X/DAY AMBER Administration Amlodipine Besylate 5 mg 05/18/23 06:00 05/18/23 06:24 Amlodipine 5 Mg Tablet PO 5 mg DAILY AMBER Administration Apixaban 5 mg 05/18/23 06:00 05/18/23 06:24 Apixaban 5 Mg Tablet PO 5 mg BID AMBER Administration Atorvastatin Calcium 40 mg 05/17/23 22:00 05/17/23 22:04 Atorvastatin Calcium 40 Mg Tablet PO 40 mg QHS AMBER Administration Cholecalciferol 125 mcg 05/18/23 06:00 05/18/23 06:23 Cholecalciferol (Vit D3) 125 Mcg Capsule (5,000 Units) PO 125 mcg DAILY AMBER Administration Escitalopram Oxalate 10 mg 05/18/23 06:00 05/18/23 06:24 Escitalopram Oxalate 10 Mg Tablet PO 10 mg DAILY AMBER Administration Furosemide 20 mg 05/18/23 06:00 05/18/23 06:24 Furosemide 20 Mg Tablet PO 20 mg DAILY AMBER Administration Sodium Chloride 250 mls @ 15 mls/hr 05/17/23 18:56 IV .[id number] PRN Additional IVPB Infusion Sodium Chloride 250 mls @ 15 mls/hr 05/17/23 18:56 IV .[id number] PRN Saline Flush Insulin Glargine 40 unit 05/17/23 22:00 05/17/23 22:03 Insulin Glargine-Yfgn 100 Unit/Ml Pen SC 40 unit QHS AMBER Administration Levofloxacin 750 mg 05/18/23 06:00 05/18/23 08:22 Levofloxacin 750 Mg Tablet PO 05/19/23 23:59 750 mg DAILY AMBER Administration Loperamide HCl 0 mg 05/18/23 08:20 Loperamide 2 Mg Capsule PO Q2H PRN diarrhea Losartan Potassium 100 mg 05/18/23 06:00 05/18/23 06:24 Losartan Potassium 100 Mg Tablet PO 100 mg DAILY AMBER Administration Metoprolol Succinate 25 mg 05/18/23 06:00 05/18/23 06:23 Metoprolol(Xl)Succ 25 Mg Tablet PO 25 mg DAILY AMBER Administration Montelukast Sodium 10 mg 05/18/23 06:00 05/18/23 06:23 Montelukast 10 Mg Tablet PO 10 mg DAILY AMBER Administration Nitroglycerin 0.4 mg 05/17/23 19:09 Nitroglycerin (Inpatient Use) 0.4 Mg Tab.Subl SL Q5M PRN chest pain Pramipexole Dihydrochloride 1 mg 05/18/23 06:00 05/18/23 06:24 Pramipexole Di-Hcl 1 Mg Tablet PO 1 mg BID AMBER Administration Sodium Chloride 10 - 40 ml 05/17/23 18:56 05/18/23 03:56 0.9% Saline Lock 10 Ml Syringe IV 10 ml UD PRN Administration SALINE FLUSH Tizanidine HCl 4 mg 05/17/23 22:00 05/18/23 14:15 Tizanidine Hcl 2 Mg Tablet PO 4 mg Q8H AMBER Administration Topiramate 50 mg 05/18/23 06:00 05/18/23 06:24 Topiramate 50 Mg Tablet PO 50 mg BID AMBER Administration Trazodone HCl 150 mg 05/17/23 22:00 05/17/23 22:04 Trazodone 100 Mg Tablet PO 150 mg QHS AMBER Administration Tuberculin PPD 0.1 ml 05/25/23 10:00 Tuberculin,Purif.Prot.Deriv. 50 Tu/Ml Vial ID 05/25/23 10:01 X1 ONE Problem List (Updated 05/17/23 @ 19:[address] Senthil Ortiz MD) Muscle spasm (Acute) Overactive bladder (Acute) Restless leg syndrome (Acute) Depression (Acute) Allergic rhinitis (Acute) Anxiety (Acute) Coronary artery disease (Acute) Hypertension (Chronic) Atrial fibrillation (Acute) Choledocholithiasis (Acute) Acute cholangitis (Acute) Encephalopathy (Acute) Debility (Acute) Transaminitis (Acute) Fever (Acute) Jaundice (Acute) Restrictive lung disease (Acute) Diabetes mellitus (Chronic) Hyperlipidemia (Chronic) Vital Signs Temp Pulse Resp BP Pulse Ox O2 Del Method 98.9 F 62 18 175/62 H 97 Room Air 05/18/23 13:43 05/18/23 13:43 05/18/23 13:43 05/18/23 13:43 05/18/23 13:43 05/18/23 13:43 Oxygen Delivery Method Room Air Weight: 87.407 kg Body Mass Index (BMI) 35.2 Sodium 144 mmol/L (136-145) 05/18/23 05:24 Potassium 3.6 mmol/L (3.5-5.1) 05/18/23 05:24 Chloride 112 mmol/L (98-107) H 05/18/23 05:24 Carbon Dioxide 29.0 mmol/L (21.0-32.0) 05/18/23 05:24 Anion Gap 3 (5-15) L 05/18/23 05:24 BUN 10 mg/dL (7-18) 05/18/23 05:24 Creatinine 0.86 mg/dL (0.55-1.02) 05/18/23 05:24 Est GFR (MDRD) Af Amer 81 mL/min (>60) 05/18/23 05:24 Est GFR (MDRD) Non-Af 67 mL/min (>60) 05/18/23 05:24 BUN/Creatinine Ratio 11.6 RATIO (10-20) 05/18/23 05:24 Glucose 129 mg/dL (74-106) H 05/18/23 05:24 Assessment/Plan: 1. Pain: acetaminophen 1,000 mg PO Q6H PRN pain (1-5) and hydrocodone/acetaminophen 5/325 mg PO Q12 PRN pain (6-10). The resident has received 1 dose of PRN acetaminophen (hip pain 05/12; requested Tylenol instead of Bonita), and no doses of PRN Bonita. Continue to monitor pain and for PRN usage of pain medications.? 2. Bowel: loperamide 4 mg PO after first loose stool, then 2 mg PO after each subsequent loose stool Q2H PRN diarrhea. The resident has not had any PRN usage of this medication; she does not have a recorded BM during her TCU admission, but there is one from 05/16/23. Please continue to monitor for diarrhea and PRN usage. 3. Acute cholangitis: levofloxacin 750 mg PO daily through 05/19/23. Continue to monitor for peripheral neuropathy and SUPERINTENDENT TRANSMISSION effects (Black Box Warning), tendon pain (black box warning for tendon rupture/tendonitis, diarrhea and renal function (CrCl 52 mL/min using adjusted BW, dose appropriate at this time).? 4. Hypertension/atrial fibrillation/CAD: losartan 100 mg PO daily, amlodipine 5 mg PO daily, metoprolol succinate 25mg PO daily, apixaban 5mg PO BID and nitroglycerin 0.4mg SL Q5M PRN chest pain. Continue to monitor BP (last 175/62), HR (last 62), lower extremity swelling, potassium (last 3.6mmol/L), S/S of bleeding, hemoglobin (last 12.1g/dL), renal function, PRN usage and chest pain. Do not discontinue metoprolol succinate abruptly (Black Box Warning). Resident has not used any PRN doses so far. 5. Hyperlipidemia: atorvastatin 40 mg PO QHS. Please consider ordering a lipid panel as there are no levels in the chart. Thanks. Continue to monitor LFTs (ALT of 77 and AST of 27 of 05/17), and for s/s of myalgias.? 6. Edema: furosemide 20 mg PO daily. Continue to monitor for electrolyte imbalances with a BMP (last performed 05/18), renal function and edema. 7. Diabetes mellitus II: insulin glargine 40 units SC QHS. Continue to monitor blood glucose levels (last 129 on 05/18), hemoglobin A1c (last 7% 05/13/23), and for s/s of hypoglycemia.? 8. Allergic rhinitis: montelukast 10 mg PO daily. Continue to monitor for s/s of neuropsychiatric events (Black Box Warning) and allergies. 9. Restless leg syndrome: pramipexole 1 mg PO BID. Continue to monitor for dizziness, sedation and S/S of restless legs. 10. Muscle spasm: tizanidine 4 mg PO Q8H. Continue to monitor for xerostomia, hypotension and muscle spasms. 11. Vitamin D deficiency: cholecalciferol 125 mcg PO daily. Please consider ordering a Vitamin D level as the last level was from 09/2017. Thanks.? Assessment/Plan for indications treated with psychotropic medications: 1. Anxiety: alprazolam 0.5 mg PO QID. Please see physician note regarding GDR. Continue to monitor for s/s of SUPERINTENDENT TRANSMISSION effects (Beer?s Criteria) and respiratory depression, especially if the resident uses PRN doses of Bonita (Black Box Warning), falls/fractures (BEERs medication) and dementia/delirium (BEERs medication). 2. Depression: escitalopram 10 mg PO daily and topiramate 50 mg PO BID. Please see physician note regarding GDR. Continue to monitor for fall risk (ataxia, syncope, and impaired psychomotor function (Beer?s Criteria)), sodium (last 144mmol/L). 3. Insomnia: trazodone 150 mg PO QHS. Please see physician note regarding GDR. Continue to monitor for s/s of suicidal ideation (Black Box Warning), agitation and excessive drowsiness. Medical chart and medication regimen reviewed. The following medication irregularities or issues were identified: *1. Atorvastatin 40 mg PO QHS. Please consider ordering a lipid panel as there are no levels in the chart. Thanks. *2. Cholecalciferol 125 mcg PO daily. Please consider ordering a Vitamin D level as the last level was from 09/2017. Thanks.? Date Date of Note:: 05/18/23 Documented by User: Dr. Senthil Ortiz MD 05/18/23 17:22 TCU RX Drug Regimen Review Provider Comments Provider responsibility Provider Comments to Recommendations by Pharmacy: Agree
--- NOTE | 2023-05-18 15:26 | CHAPLAIN ---
Type of Pastoral Visit ___ Initial Visit _x__ Follow-up Visit ___ On-call Visit ___ General Patient Visit ___ Spiritual Assessment ___ Family Conference ___ Bereavement ___ Rapid Response ___ Code Blue ___ Other (describe below) Pastoral Care Referral From _x__ Patient ___ Family ___ Nurse ___ Physician ___ Caster Operator ___ Expeditionary Fighting Vehicle Crewman ___ Other (describe below) Sacrament/Intervention _x__ Active listening ___ Anointing ___ Voodoo ___ Bereavement ___ Communion _x__ Mandy exploration ___ _x__ Life review _x__ Prayer ___ Reconciliation ___ Sacrament of Sick _x__ Supportive presence ___ Wedding ___ Other (describe below) Pastoral Comments patient was seen in [facility] previously and had requested follow up; pt is talkative and expressive about her family and her life at [facility]; pt is encouraged with developments over health but realizes now how close to I was and I will need to get stronger to go back to [facility] where I want to be; pt welcomes prayer and asks for more visits while she is in [place]
--- NOTE | 2023-05-18 15:54 | NURSING ---
Went in to give admission TB test and patient reports she is a reactor to TB test and that she is not to receive them. Informed patient policy is to order a chest x-ray if unable to take TB test. Patient reports she had an x-ray this year at [facility] for same reason. Contacted [facility] and got copy of chest x-ray. Dr. Brown made aware and awaiting orders.
[2023-05-18 16:19] LABS: Bedside Glucose 194 mg/dL (74-106)
[2023-05-18 21:56] LABS: Bedside Glucose 182 mg/dL (74-106)
[2023-05-18] MEDS: traZODone 100 MG Tablet 150 MG PO (22:05)
[2023-05-18] MEDS: Atorvastatin Calcium 40 MG Tablet PO (22:06)
[2023-05-18] MEDS: Insulin Glargine-YFGN 100 UNIT/ML Pen 40 UNIT SC (22:08)
[2023-05-19] MEDS: tiZANidine HCl 2 MG Tablet 4 MG PO ×4 (02:27→21:17)
[2023-05-19] MEDS: ALPRAZolam 0.5 MG Tablet PO ×4 (06:05→21:17)
[2023-05-19] MEDS: 0.9% Saline Lock 10 ML Syringe IV ×2 (06:05→06:15)
[2023-05-19] MEDS: Topiramate 50 MG Tablet PO ×2 (06:06→16:24)
[2023-05-19] MEDS: Cholecalciferol (Vit D3) 125 MCG CAPSULE (5,000 UNITS) PO (06:07)
[2023-05-19] MEDS: amLODIPine 5 MG Tablet PO (06:07)
[2023-05-19] MEDS: Losartan Potassium 100 MG Tablet PO (06:07)
[2023-05-19] MEDS: levoFLOXacin 750 MG Tablet PO (06:07)
[2023-05-19] MEDS: Escitalopram Oxalate 10 MG Tablet PO (06:07)
[2023-05-19 06:08] VITALS: BP 184/83; PULSE 72
[2023-05-19] MEDS: Metoprolol(XL)Succ 25 MG Tablet PO ×2 (06:08)
[2023-05-19] MEDS: Montelukast 10 MG Tablet PO (06:08)
[2023-05-19] MEDS: APIXABAN 5 MG TABLET PO ×2 (06:09→16:24)
[2023-05-19] MEDS: Pramipexole Di-HCl 1 MG Tablet PO ×2 (06:09→16:25)
[2023-05-19] MEDS: Furosemide 20 MG Tablet PO (06:09)
[2023-05-19 06:39] LABS: Bedside Glucose 123 mg/dL (74-106)
[2023-05-19 07:08] VITALS: BP 184/83; PULSE 72; RESP 18; O2SAT 96
[2023-05-19] MEDS: Acetaminophen 500 MG Tablet 1000 MG PO (10:30)
[2023-05-19 11:23] LABS: Bedside Glucose 279 mg/dL (74-106)
--- NOTE | 2023-05-19 11:29 | CASEMGMT ---
Social Work SW met with pt and completed initial assessment. SW discussed code status and MOLST form with pt and assisted in completing MOLST. Pt wishes for DNR with intubation. Nursing updated and form placed in physicians folder. PT educated to [employer] insurance with NRD of 05/24 and continued stay not gauranteed. Pt has been living at [facility] for the last year and plans to return there upon discharge from TCU. SW will continue to follow for d/c planning. MINE Lubin
[2023-05-19 12:14] VITALS: BP 149/53; PULSE 80
[2023-05-19] MEDS: hydrALAZINE 25 MG Tablet PO ×3 (12:14→21:17)
[2023-05-19 15:46] VITALS: BP 137/49; PULSE 55; RESP 16; TEMP 36.3; O2SAT 97
[2023-05-19 16:23] VITALS: BP 122/54; PULSE 74
[2023-05-19 16:39] LABS: Bedside Glucose 215 mg/dL (74-106)
[2023-05-19] MEDS: Atorvastatin Calcium 40 MG Tablet PO (21:16)
[2023-05-19] MEDS: traZODone 100 MG Tablet 150 MG PO (21:16)
[2023-05-19 21:17] VITALS: BP 132/50; PULSE 66
[2023-05-19] MEDS: Insulin Glargine-YFGN 100 UNIT/ML Pen 40 UNIT SC (21:17)
[2023-05-19 21:30] LABS: Bedside Glucose 173 mg/dL (74-106)
[2023-05-20] MEDS: Acetaminophen 500 MG Tablet 1000 MG PO ×2 (03:27→14:59)
[2023-05-20 05:51] VITALS: BP 136/49; PULSE 48
[2023-05-20] MEDS: tiZANidine HCl 2 MG Tablet 4 MG PO ×3 (05:51→21:01)
[2023-05-20] MEDS: Cholecalciferol (Vit D3) 125 MCG CAPSULE (5,000 UNITS) PO (05:52)
[2023-05-20] MEDS: Escitalopram Oxalate 10 MG Tablet PO (05:54)
[2023-05-20] MEDS: Montelukast 10 MG Tablet PO (05:54)
[2023-05-20] MEDS: Furosemide 20 MG Tablet PO (05:54)
[2023-05-20] MEDS: Pramipexole Di-HCl 1 MG Tablet PO ×2 (05:54→18:12)
[2023-05-20] MEDS: APIXABAN 5 MG TABLET PO ×2 (05:54→18:10)
[2023-05-20] MEDS: Topiramate 50 MG Tablet PO ×2 (05:55→18:13)
[2023-05-20] MEDS: ALPRAZolam 0.5 MG Tablet PO ×4 (05:57→21:01)
[2023-05-20 06:30] LABS: Bedside Glucose 182 mg/dL (74-106)
[2023-05-20 07:15] VITALS: O2SAT 95
[2023-05-20 11:44] VITALS: BP 139/45; PULSE 57
[2023-05-20] MEDS: hydrALAZINE 25 MG Tablet PO ×3 (11:44→21:01)
[2023-05-20 16:00] VITALS: BP 146/66; PULSE 67; RESP 16; TEMP 36.5; O2SAT 97
[2023-05-20] MEDS: Senna/Docusate Sodium 1 Tablet 2 TABLET PO (18:10)
[2023-05-20 18:11] VITALS: BP 146/66; PULSE 67
[2023-05-20 21:01] VITALS: PULSE 67
[2023-05-20] MEDS: Atorvastatin Calcium 40 MG Tablet PO (21:01)
[2023-05-20] MEDS: traZODone 100 MG Tablet 150 MG PO (21:01)
[2023-05-20] MEDS: Insulin Glargine-YFGN 100 UNIT/ML Pen 40 UNIT SC (21:10)
[2023-05-20 22:30] LABS: Bedside Glucose 210 mg/dL (74-106)
[2023-05-21] VITALS (8 sets, daily range): BP systolic 123–146; BP diastolic 50–53; PULSE 55–62; RESP 18–24; TEMP 36.4; O2SAT 96
[2023-05-21] MEDS: Acetaminophen 500 MG Tablet 1000 MG PO (04:17)
[2023-05-21] MEDS: ALPRAZolam 0.5 MG Tablet PO ×4 (04:28→21:55)
[2023-05-21] MEDS: Cholecalciferol (Vit D3) 125 MCG CAPSULE (5,000 UNITS) PO (04:28)
[2023-05-21] MEDS: tiZANidine HCl 2 MG Tablet 4 MG PO ×3 (04:29→21:47)
[2023-05-21] MEDS: hydrALAZINE 25 MG Tablet PO ×4 (04:29→21:47)
[2023-05-21] MEDS: Pramipexole Di-HCl 1 MG Tablet PO ×2 (04:29→18:14)
[2023-05-21] MEDS: Senna/Docusate Sodium 1 Tablet 2 TABLET PO ×2 (04:29→18:13)
[2023-05-21] MEDS: Escitalopram Oxalate 10 MG Tablet PO (04:29)
[2023-05-21] MEDS: APIXABAN 5 MG TABLET PO ×2 (04:30→18:14)
[2023-05-21] MEDS: amLODIPine 5 MG Tablet PO (04:30)
[2023-05-21] MEDS: Topiramate 50 MG Tablet PO ×2 (04:30→18:14)
[2023-05-21] MEDS: Furosemide 20 MG Tablet PO (04:30)
[2023-05-21] MEDS: Metoprolol(XL)Succ 25 MG Tablet PO (04:30)
[2023-05-21] MEDS: Losartan Potassium 100 MG Tablet PO (04:31)
[2023-05-21] MEDS: Montelukast 10 MG Tablet PO (04:38)
[2023-05-21] MEDS: HYDROcodone Bitartrate/Apap 5/325 Tablet PO (12:37)
[2023-05-21 21:47] LABS: Bedside Glucose 173 mg/dL (74-106)
[2023-05-21] MEDS: Atorvastatin Calcium 40 MG Tablet PO (21:47)
[2023-05-21] MEDS: traZODone 100 MG Tablet 150 MG PO (21:50)
[2023-05-21] MEDS: Insulin Glargine-YFGN 100 UNIT/ML Pen 40 UNIT SC (21:56)
[2023-05-22] VITALS (7 sets, daily range): BP systolic 117–156; BP diastolic 51–102; PULSE 60–86; RESP 18–20; TEMP 36.2; O2SAT 97
[2023-05-22] MEDS: Metoprolol(XL)Succ 25 MG Tablet PO (04:23)
[2023-05-22] MEDS: amLODIPine 5 MG Tablet PO (04:24)
[2023-05-22] MEDS: HYDROcodone Bitartrate/Apap 5/325 Tablet PO ×2 (04:24→21:17)
[2023-05-22] MEDS: Montelukast 10 MG Tablet PO (04:24)
[2023-05-22] MEDS: APIXABAN 5 MG TABLET PO ×2 (04:24→16:34)
[2023-05-22] MEDS: Senna/Docusate Sodium 1 Tablet 2 TABLET PO (04:24)
[2023-05-22] MEDS: Pramipexole Di-HCl 1 MG Tablet PO ×2 (04:24→16:38)
[2023-05-22] MEDS: Cholecalciferol (Vit D3) 125 MCG CAPSULE (5,000 UNITS) PO (04:24)
[2023-05-22] MEDS: Topiramate 50 MG Tablet PO ×2 (04:24→16:38)
[2023-05-22] MEDS: hydrALAZINE 25 MG Tablet PO ×4 (04:24→21:19)
[2023-05-22] MEDS: tiZANidine HCl 2 MG Tablet 4 MG PO ×2 (04:25→21:18)
[2023-05-22] MEDS: Losartan Potassium 100 MG Tablet PO (04:25)
[2023-05-22] MEDS: Escitalopram Oxalate 10 MG Tablet PO (04:25)
[2023-05-22] MEDS: ALPRAZolam 0.5 MG Tablet PO ×4 (04:25→21:17)
[2023-05-22] MEDS: Furosemide 20 MG Tablet PO (04:26)
[2023-05-22] MEDS: Acetaminophen 500 MG Tablet 1000 MG PO (10:50)
[2023-05-22] MEDS: Loperamide 2 MG Capsule PO (10:51)
--- NOTE | 2023-05-22 12:57 | NURSING ---
testing analyst reports that pt requesting that someone check her that not feeling rt? pt only answering i dont know when attempting to get more information. denies pain. denies nausea. think legs are swollen pt on rt side with legs elevated. bs checked and was 145. no n/t reported. unable to acertain what was wrong with. will monitor but pt support given
[2023-05-22 13:12] LABS: Bedside Glucose 145 mg/dL (74-106)
[2023-05-22] MEDS: Mag Hydrox/Al Hydrox/Simeth 30 ML UDC PO (16:34)
[2023-05-22] MEDS: traZODone 100 MG Tablet 150 MG PO (21:18)
[2023-05-22] MEDS: Atorvastatin Calcium 40 MG Tablet PO (21:19)
[2023-05-22 21:22] LABS: Bedside Glucose 235 mg/dL (74-106)
[2023-05-22] MEDS: Insulin Glargine-YFGN 100 UNIT/ML Pen 40 UNIT SC (21:26)
[2023-05-23 05:14] VITALS: BP 146/52; PULSE 64
[2023-05-23] MEDS: Losartan Potassium 100 MG Tablet PO (05:14)
[2023-05-23] MEDS: Senna/Docusate Sodium 1 Tablet 2 TABLET PO ×2 (05:14→17:37)
[2023-05-23] MEDS: Escitalopram Oxalate 10 MG Tablet PO (05:14)
[2023-05-23] MEDS: Metoprolol(XL)Succ 25 MG Tablet PO (05:14)
[2023-05-23] MEDS: Topiramate 50 MG Tablet PO ×2 (05:14→17:38)
[2023-05-23] MEDS: Furosemide 20 MG Tablet PO (05:14)
[2023-05-23] MEDS: amLODIPine 5 MG Tablet PO (05:14)
[2023-05-23] MEDS: Cholecalciferol (Vit D3) 125 MCG CAPSULE (5,000 UNITS) PO (05:14)
[2023-05-23] MEDS: hydrALAZINE 25 MG Tablet PO ×4 (05:14→20:33)
[2023-05-23] MEDS: APIXABAN 5 MG TABLET PO ×2 (05:14→17:35)
[2023-05-23] MEDS: Montelukast 10 MG Tablet PO (05:14)
[2023-05-23] MEDS: Pramipexole Di-HCl 1 MG Tablet PO ×2 (05:14→17:36)
[2023-05-23] MEDS: Acetaminophen 500 MG Tablet 1000 MG PO (05:22)
[2023-05-23] MEDS: ALPRAZolam 0.5 MG Tablet PO ×4 (05:23→20:33)
[2023-05-23] MEDS: tiZANidine HCl 2 MG Tablet 4 MG PO ×3 (05:24→20:34)
[2023-05-23 12:09] VITALS: PULSE 66
[2023-05-23] MEDS: HYDROcodone Bitartrate/Apap 5/325 Tablet PO (12:13)
[2023-05-23 15:26] VITALS: BP 118/47; PULSE 47; RESP 16; TEMP 36.7; O2SAT 99
[2023-05-23 17:36] VITALS: PULSE 62
[2023-05-23 20:17] VITALS: PULSE 58; RESP 18; O2SAT 96
[2023-05-23 20:33] VITALS: BP 147/50; PULSE 58
[2023-05-23] MEDS: Atorvastatin Calcium 40 MG Tablet PO (20:33)
[2023-05-23] MEDS: traZODone 100 MG Tablet 150 MG PO (20:34)
[2023-05-23 21:50] LABS: Bedside Glucose 140 mg/dL (74-106)
[2023-05-23] MEDS: Insulin Glargine-YFGN 100 UNIT/ML Pen 40 UNIT SC (22:22)
[2023-05-24] VITALS (7 sets, daily range): BP systolic 130–154; BP diastolic 57–63; PULSE 60–76; RESP 14; TEMP 36.4; O2SAT 93–95; BMI 34.6
[2023-05-24] MEDS: Acetaminophen 500 MG Tablet 1000 MG PO ×3 (05:11→20:56)
[2023-05-24] MEDS: ALPRAZolam 0.5 MG Tablet PO ×4 (05:12→20:56)
[2023-05-24] MEDS: Montelukast 10 MG Tablet PO (05:12)
[2023-05-24] MEDS: tiZANidine HCl 2 MG Tablet 4 MG PO ×3 (05:12→20:56)
[2023-05-24] MEDS: hydrALAZINE 25 MG Tablet PO ×4 (05:12→20:55)
[2023-05-24] MEDS: Losartan Potassium 100 MG Tablet PO (05:12)
[2023-05-24] MEDS: Furosemide 20 MG Tablet PO (05:12)
[2023-05-24] MEDS: Topiramate 50 MG Tablet PO ×2 (05:12→17:16)
[2023-05-24] MEDS: Senna/Docusate Sodium 1 Tablet 2 TABLET PO ×2 (05:13→17:16)
[2023-05-24] MEDS: Cholecalciferol (Vit D3) 125 MCG CAPSULE (5,000 UNITS) PO (05:13)
[2023-05-24] MEDS: Metoprolol(XL)Succ 25 MG Tablet PO (05:13)
[2023-05-24] MEDS: amLODIPine 5 MG Tablet PO (05:13)
[2023-05-24] MEDS: Escitalopram Oxalate 10 MG Tablet PO (05:13)
[2023-05-24] MEDS: APIXABAN 5 MG TABLET PO ×2 (05:14→17:16)
[2023-05-24] MEDS: Pramipexole Di-HCl 1 MG Tablet PO ×2 (05:14→17:16)
[2023-05-24] MEDS: traZODone 100 MG Tablet 150 MG PO (20:55)
[2023-05-24] MEDS: Atorvastatin Calcium 40 MG Tablet PO (20:55)
[2023-05-24] MEDS: Insulin Glargine-YFGN 100 UNIT/ML Pen 40 UNIT SC (20:57)
[2023-05-24 21:25] LABS: Bedside Glucose 159 mg/dL (74-106)
[2023-05-25] VITALS (8 sets, daily range): BP systolic 113–148; BP diastolic 45–65; PULSE 45–79; RESP 18; TEMP 36.6; O2SAT 94–97
[2023-05-25] MEDS: Pramipexole Di-HCl 1 MG Tablet PO ×2 (05:07→18:15)
[2023-05-25] MEDS: tiZANidine HCl 2 MG Tablet 4 MG PO ×3 (05:07→21:10)
[2023-05-25] MEDS: Acetaminophen 500 MG Tablet 1000 MG PO ×3 (05:07→21:09)
[2023-05-25] MEDS: Montelukast 10 MG Tablet PO (05:07)
[2023-05-25] MEDS: Metoprolol(XL)Succ 25 MG Tablet PO (05:08)
[2023-05-25] MEDS: Escitalopram Oxalate 10 MG Tablet PO (05:08)
[2023-05-25] MEDS: Senna/Docusate Sodium 1 Tablet 2 TABLET PO ×2 (05:08→18:15)
[2023-05-25] MEDS: Topiramate 50 MG Tablet PO ×2 (05:09→18:14)
[2023-05-25] MEDS: APIXABAN 5 MG TABLET PO ×2 (05:09→18:15)
[2023-05-25] MEDS: Losartan Potassium 100 MG Tablet PO (05:09)
[2023-05-25] MEDS: hydrALAZINE 25 MG Tablet PO ×4 (05:09→21:07)
[2023-05-25] MEDS: amLODIPine 5 MG Tablet PO (05:09)
[2023-05-25] MEDS: Furosemide 20 MG Tablet PO (05:10)
[2023-05-25] MEDS: ALPRAZolam 0.5 MG Tablet PO (05:14)
[2023-05-25] MEDS: Cholecalciferol (Vit D3) 125 MCG CAPSULE (5,000 UNITS) PO (05:15)
[2023-05-25 05:38] LABS: Bedside Glucose 118 mg/dL (74-106)
[2023-05-25 05:40] LABS: Absolute Lymphocyte Count 2.92 X10^3/uL (0.83-4.51); Basophil# 0.04 X10^3/uL; Basophil% 0.5 % (0-1); Eosinophil# 0.12 X10^3/uL; Eosinophils% 1.6 % (0-5); Hematocrit 39.5 % (37-47); Hemoglobin 12.9 g/dL (12.0-15.0); Lymphocyte # 2.92 X10^3/ul (0.83-4.51); Lymphocyte % 38.7 % (19-41); Mean Corp Hgb Conc 32.7 g/dL (32-36); Mean Corpuscular Volume 91.9 fL (81-99); Monocyte# 0.45 X10^3/uL; NRBC Flagged by Analyzer 0 % (0-5); Neutrophil % 52.9 % (47-70); Platelet Count 281 K/mm3 (150-450); RBC Distribution Width SD 43.6 fl (35.1-43.9); White Blood Count 7.6 K/mm3 (4.4-11.0)
[2023-05-25 06:06] LABS: Anion Gap 6 (5-15); BUN 25 mg/dL (7-18); BUN/Creat Ratio 20.3 RATIO (10-20); Calcium,Total 9.6 mg/dL (8.5-10.1); Chloride 109 mmol/L (98-107); Creatinine, Serum 1.23 mg/dL (0.55-1.02); EST Glomerular Filtration Rate 45 mL/min (>60); Est Glom Filt Rate - Afr Amer 54 mL/min (>60); Estimated Creatinine Clearance 28.85 ml/min; Glucose 139 mg/dL (74-106); Sodium Level 140 mmol/L (136-145)
[2023-05-25] MEDS: Potassium Chloride Oral Tablet 20 MEQ 40 MEQ PO (08:07)
[2023-05-25] MEDS: HYDROcodone Bitartrate/Apap 5/325 Tablet PO (10:19)
--- NOTE | 2023-05-25 11:49 | NURSING ---
Terminal System Operator Note; MDS for 05/24/2023 Complete
--- NOTE | 2023-05-25 13:26 | CHAPLAIN ---
Type of Pastoral Visit ___ Initial Visit _x__ Follow-up Visit ___ On-call Visit ___ General Patient Visit ___ Spiritual Assessment ___ Family Conference ___ Bereavement ___ Rapid Response ___ Code Blue ___ Other (describe below) Pastoral Care Referral From _x__ Patient ___ Family ___ Nurse ___ Physician ___ Punch Hand ___ Cardiac Monitor Technician ___ Other (describe below) Sacrament/Intervention _x__ Active listening ___ Anointing ___ Congregational ___ Bereavement ___ Communion ___ Mandy exploration ___ ___ Life review _x__ Prayer ___ Reconciliation ___ Sacrament of Sick _x__ Supportive presence ___ Wedding ___ Other (describe below) Pastoral Comments patient reports that therapy is going slowly and not as often because they say I'm not improving fast enough; facilitating some dialogue about these comments; pt does not appear with the same energy as what she had last week; pt speaks about her lack of appetite and how that concerns them; pt welcomes a prayer; daughter comes into room and pt introduces; daughter adds that it is good for Mom to hear some words from others besides her family;
--- NOTE | 2023-05-25 14:01 | CASEMGMT ---
Social Work IDT met with patient and siblings for care plan meeting. Discussed patient's progress in PT/OT/ST/SN. Educated to [facility] insurance with NRD 05/31, noted days 21-100 has $135/day copay; continued stay is not guaranteed with each review. DC goal is to return to [facility], but has increased confusion and ADL needs. SW will continue to follow for DC plans. Regi Crow, SENIOR DATABASE ENGINEER HOME BUILDER
[2023-05-25] MEDS: ALPRAZolam 0.25 MG Tablet PO ×2 (14:13→21:16)
[2023-05-25] MEDS: Atorvastatin Calcium 40 MG Tablet PO (21:08)
[2023-05-25] MEDS: traZODone 100 MG Tablet 150 MG PO (21:10)
[2023-05-25] MEDS: Insulin Glargine-YFGN 100 UNIT/ML Pen 40 UNIT SC (21:39)
[2023-05-26] VITALS (7 sets, daily range): BP systolic 109–171; BP diastolic 43–89; PULSE 52–80; RESP 16–19; TEMP 36.6; O2SAT 99
[2023-05-26] MEDS: tiZANidine HCl 2 MG Tablet 4 MG PO ×3 (05:22→21:00)
[2023-05-26] MEDS: Furosemide 20 MG Tablet PO (05:22)
[2023-05-26] MEDS: Losartan Potassium 100 MG Tablet PO (05:22)
[2023-05-26] MEDS: Cholecalciferol (Vit D3) 125 MCG CAPSULE (5,000 UNITS) PO (05:22)
[2023-05-26] MEDS: Pramipexole Di-HCl 1 MG Tablet PO ×2 (05:22→17:02)
[2023-05-26] MEDS: Montelukast 10 MG Tablet PO (05:22)
[2023-05-26] MEDS: Topiramate 50 MG Tablet PO ×2 (05:22→17:02)
[2023-05-26] MEDS: APIXABAN 5 MG TABLET PO ×2 (05:22→17:00)
[2023-05-26] MEDS: amLODIPine 5 MG Tablet PO (05:23)
[2023-05-26] MEDS: Acetaminophen 500 MG Tablet 1000 MG PO ×3 (05:23→21:00)
[2023-05-26] MEDS: Escitalopram Oxalate 10 MG Tablet PO (05:23)
[2023-05-26] MEDS: Senna/Docusate Sodium 1 Tablet 2 TABLET PO (05:23)
[2023-05-26] MEDS: hydrALAZINE 25 MG Tablet PO ×4 (05:25→20:59)
[2023-05-26] MEDS: ALPRAZolam 0.25 MG Tablet PO ×3 (05:28→20:59)
[2023-05-26] MEDS: Metoprolol(XL)Succ 25 MG Tablet PO (05:32)
[2023-05-26] MEDS: Potassium Chloride Oral Tablet 20 MEQ PO (08:18)
[2023-05-26] MEDS: HYDROcodone Bitartrate/Apap 5/325 Tablet PO (08:21)
[2023-05-26] MEDS: Atorvastatin Calcium 40 MG Tablet PO (20:59)
[2023-05-26] MEDS: traZODone 100 MG Tablet 150 MG PO (20:59)
[2023-05-26] MEDS: Insulin Glargine-YFGN 100 UNIT/ML Pen 40 UNIT SC (21:00)
[2023-05-26 21:32] LABS: Bedside Glucose 275 mg/dL (74-106)
[2023-05-27] VITALS (7 sets, daily range): BP systolic 98–180; BP diastolic 43–61; PULSE 50–86; RESP 14–16; TEMP 36.4; O2SAT 96–97
[2023-05-27] MEDS: HYDROcodone Bitartrate/Apap 5/325 Tablet PO ×2 (02:55→22:07)
[2023-05-27] MEDS: ALPRAZolam 0.25 MG Tablet PO ×3 (05:32→22:07)
[2023-05-27] MEDS: Losartan Potassium 100 MG Tablet PO (05:33)
[2023-05-27] MEDS: hydrALAZINE 25 MG Tablet PO ×3 (05:33→22:11)
[2023-05-27] MEDS: Pramipexole Di-HCl 1 MG Tablet PO ×2 (05:33→17:23)
[2023-05-27] MEDS: amLODIPine 5 MG Tablet PO (05:33)
[2023-05-27] MEDS: Metoprolol(XL)Succ 25 MG Tablet PO (05:33)
[2023-05-27] MEDS: Escitalopram Oxalate 10 MG Tablet PO (05:33)
[2023-05-27] MEDS: Furosemide 20 MG Tablet PO (05:33)
[2023-05-27] MEDS: Cholecalciferol (Vit D3) 125 MCG CAPSULE (5,000 UNITS) PO (05:33)
[2023-05-27] MEDS: Montelukast 10 MG Tablet PO (05:34)
[2023-05-27] MEDS: Topiramate 50 MG Tablet PO ×2 (05:34→17:25)
[2023-05-27] MEDS: Acetaminophen 500 MG Tablet 1000 MG PO ×3 (05:34→22:08)
[2023-05-27] MEDS: Senna/Docusate Sodium 1 Tablet 2 TABLET PO (05:34)
[2023-05-27] MEDS: tiZANidine HCl 2 MG Tablet 4 MG PO ×3 (05:34→22:08)
[2023-05-27] MEDS: APIXABAN 5 MG TABLET PO ×2 (05:35→17:22)
[2023-05-27 06:08] LABS: Anion Gap 7 (5-15); BUN 21 mg/dL (7-18); BUN/Creat Ratio 20.4 RATIO (10-20); Calcium,Total 9.6 mg/dL (8.5-10.1); Chloride 112 mmol/L (98-107); Creatinine, Serum 1.03 mg/dL (0.55-1.02); EST Glomerular Filtration Rate 55 mL/min (>60); Est Glom Filt Rate - Afr Amer 66 mL/min (>60); Estimated Creatinine Clearance 34.45 ml/min; Glucose 162 mg/dL (74-106); Potassium 3.9 mmol/L (3.5-5.1); Sodium Level 142 mmol/L (136-145)
[2023-05-27] MEDS: Potassium Chloride Oral Tablet 20 MEQ PO (08:19)
[2023-05-27] MEDS: Lidocaine 5% Patch 2 PATCH TOPICAL (09:55)
[2023-05-27] MEDS: Loperamide 2 MG Capsule PO (11:10)
--- NOTE | 2023-05-27 13:25 | MDS.RN ---
Information for the mds was obtained from review of the clinical record, interview of resident, staff, and direct observation of resident's care.
--- NOTE | 2023-05-27 16:27 | NS ---
Was asked to talk with res d/t her concern for decreased appetite. She states that she doesn't care for the food and that she doesn't eat that much. Offered multiple suggestions including liberalizing diet to Regular and be less restrictive, suggested ONS, asked if anything sounds good to eat, suggested appetite stimulant - all were declined by res. Hopefully, appetite will improve with change to usual menu next week. Encouraged res to let nursing know if something sounds good or if she would like to talk to dietitian again. Res nodded understanding.
[2023-05-27 21:26] LABS: Bedside Glucose 233 mg/dL (74-106)
[2023-05-27] MEDS: traZODone 100 MG Tablet 150 MG PO (22:10)
[2023-05-27] MEDS: Atorvastatin Calcium 40 MG Tablet PO (22:11)
[2023-05-27] MEDS: Insulin Glargine-YFGN 100 UNIT/ML Pen 40 UNIT SC (22:11)
[2023-05-28] VITALS (8 sets, daily range): BP systolic 98–182; BP diastolic 35–72; PULSE 40–99; RESP 16–20; TEMP 36.3; O2SAT 94–98
[2023-05-28] MEDS: Losartan Potassium 100 MG Tablet PO (06:03)
[2023-05-28] MEDS: Escitalopram Oxalate 10 MG Tablet PO (06:03)
[2023-05-28] MEDS: Pramipexole Di-HCl 1 MG Tablet PO ×2 (06:03→17:51)
[2023-05-28] MEDS: hydrALAZINE 25 MG Tablet PO ×3 (06:04→22:31)
[2023-05-28] MEDS: Montelukast 10 MG Tablet PO (06:04)
[2023-05-28] MEDS: Furosemide 20 MG Tablet PO (06:04)
[2023-05-28] MEDS: Metoprolol(XL)Succ 25 MG Tablet PO (06:05)
[2023-05-28] MEDS: Acetaminophen 500 MG Tablet 1000 MG PO ×3 (06:05→22:39)
[2023-05-28] MEDS: Topiramate 50 MG Tablet PO ×2 (06:06→17:51)
[2023-05-28] MEDS: amLODIPine 5 MG Tablet PO (06:06)
[2023-05-28] MEDS: tiZANidine HCl 2 MG Tablet 4 MG PO ×3 (06:06→22:38)
[2023-05-28] MEDS: Cholecalciferol (Vit D3) 125 MCG CAPSULE (5,000 UNITS) PO (06:07)
[2023-05-28] MEDS: APIXABAN 5 MG TABLET PO ×2 (06:07→17:51)
[2023-05-28] MEDS: Lidocaine 5% Patch 2 PATCH TOPICAL (06:08)
[2023-05-28] MEDS: ALPRAZolam 0.25 MG Tablet PO ×3 (06:15→22:30)
[2023-05-28] MEDS: Potassium Chloride Oral Tablet 20 MEQ PO (09:07)
--- NOTE | 2023-05-28 15:40 | NURSING ---
Addendum entered by Rhiannon Rivera 05/28/23 18:29: SABRINA Jha reported pt had formed BM, no loose stool at this time. will continue to monitor. Original Note: dr soriano notified of pt daughter reporting that mother having loose stools, it was documented loose stool yesterday, none today. new order to send for cdiff if pt does have a loose stool. PARIS Altamirano aware.
[2023-05-28] MEDS: Senna/Docusate Sodium 1 Tablet 2 TABLET PO (17:50)
[2023-05-28] MEDS: HYDROcodone Bitartrate/Apap 5/325 Tablet PO (22:31)
[2023-05-28 22:35] LABS: Bedside Glucose 192 mg/dL (74-106)
[2023-05-28] MEDS: traZODone 100 MG Tablet 150 MG PO (22:38)
[2023-05-28] MEDS: Atorvastatin Calcium 40 MG Tablet PO (22:39)
[2023-05-28] MEDS: Insulin Glargine-YFGN 100 UNIT/ML Pen 40 UNIT SC (22:50)
[2023-05-29] MEDS: APIXABAN 5 MG TABLET PO ×2 (05:16→17:39)
[2023-05-29] MEDS: Topiramate 50 MG Tablet PO ×2 (05:16→17:40)
[2023-05-29] MEDS: Acetaminophen 500 MG Tablet 1000 MG PO ×3 (05:17→22:30)
[2023-05-29] MEDS: tiZANidine HCl 2 MG Tablet 4 MG PO ×3 (05:18→22:29)
[2023-05-29] MEDS: Pramipexole Di-HCl 1 MG Tablet PO ×2 (05:18→17:40)
[2023-05-29] MEDS: amLODIPine 5 MG Tablet PO (05:18)
[2023-05-29 05:19] VITALS: BP 174/71; PULSE 100
[2023-05-29] MEDS: Escitalopram Oxalate 10 MG Tablet PO (05:19)
[2023-05-29] MEDS: Losartan Potassium 100 MG Tablet PO (05:19)
[2023-05-29] MEDS: Cholecalciferol (Vit D3) 125 MCG CAPSULE (5,000 UNITS) PO (05:19)
[2023-05-29] MEDS: hydrALAZINE 25 MG Tablet PO ×3 (05:19→22:26)
[2023-05-29] MEDS: Metoprolol(XL)Succ 25 MG Tablet PO (05:19)
[2023-05-29] MEDS: Montelukast 10 MG Tablet PO (05:20)
[2023-05-29] MEDS: Furosemide 20 MG Tablet PO (05:20)
[2023-05-29] MEDS: Lidocaine 5% Patch 2 PATCH TOPICAL (05:22)
[2023-05-29] MEDS: ALPRAZolam 0.25 MG Tablet PO ×3 (05:25→22:28)
--- NOTE | 2023-05-29 05:33 | NURSING ---
Pt reports decreased abdominal and back pain after bm this am. Will continue to monitor.
[2023-05-29 06:44] VITALS: O2SAT 97
[2023-05-29] MEDS: Potassium Chloride Oral Tablet 20 MEQ PO (08:06)
[2023-05-29 11:30] VITALS: BP 168/41; PULSE 60
[2023-05-29 16:00] VITALS: BP 119/49; PULSE 46; RESP 14; TEMP 37; O2SAT 97
[2023-05-29] MEDS: HYDROcodone Bitartrate/Apap 5/325 Tablet PO (17:37)
[2023-05-29 17:38] VITALS: BP 119/49; PULSE 46
[2023-05-29 21:55] LABS: Bedside Glucose 284 mg/dL (74-106)
[2023-05-29 22:26] VITALS: BP 172/68; PULSE 79
[2023-05-29] MEDS: traZODone 100 MG Tablet 150 MG PO (22:28)
[2023-05-29] MEDS: Atorvastatin Calcium 40 MG Tablet PO (22:29)
[2023-05-29] MEDS: Insulin Glargine-YFGN 100 UNIT/ML Pen 40 UNIT SC (22:30)
[2023-05-30] VITALS (7 sets, daily range): BP systolic 99–169; BP diastolic 54–68; PULSE 58–86; RESP 16–18; TEMP 36.2; O2SAT 96–98
[2023-05-30] MEDS: ALPRAZolam 0.25 MG Tablet PO ×3 (05:03→22:57)
[2023-05-30] MEDS: Losartan Potassium 100 MG Tablet PO (05:03)
[2023-05-30] MEDS: Topiramate 50 MG Tablet PO ×2 (05:03→23:35)
[2023-05-30] MEDS: Furosemide 20 MG Tablet PO (05:03)
[2023-05-30] MEDS: amLODIPine 5 MG Tablet PO (05:03)
[2023-05-30] MEDS: Escitalopram Oxalate 10 MG Tablet PO (05:03)
[2023-05-30] MEDS: Cholecalciferol (Vit D3) 125 MCG CAPSULE (5,000 UNITS) PO (05:04)
[2023-05-30] MEDS: Acetaminophen 500 MG Tablet 1000 MG PO ×3 (05:04→23:02)
[2023-05-30] MEDS: hydrALAZINE 25 MG Tablet PO ×4 (05:05→23:00)
[2023-05-30] MEDS: Pramipexole Di-HCl 1 MG Tablet PO ×2 (05:05→23:36)
[2023-05-30] MEDS: APIXABAN 5 MG TABLET PO ×2 (05:05→23:35)
[2023-05-30] MEDS: Metoprolol(XL)Succ 25 MG Tablet PO (05:05)
[2023-05-30] MEDS: Montelukast 10 MG Tablet PO (05:05)
[2023-05-30] MEDS: tiZANidine HCl 2 MG Tablet 4 MG PO ×3 (05:06→23:36)
[2023-05-30] MEDS: Lidocaine 5% Patch 2 PATCH TOPICAL (05:06)
[2023-05-30] MEDS: Potassium Chloride Oral Tablet 20 MEQ PO (07:58)
[2023-05-30] MEDS: HYDROcodone Bitartrate/Apap 5/325 Tablet PO ×2 (08:01→22:56)
[2023-05-30 22:27] LABS: Bedside Glucose 204 mg/dL (74-106)
[2023-05-30] MEDS: Atorvastatin Calcium 40 MG Tablet PO (23:00)
[2023-05-30] MEDS: Senna/Docusate Sodium 1 Tablet 2 TABLET PO (23:00)
[2023-05-30] MEDS: Insulin Glargine-YFGN 100 UNIT/ML Pen 40 UNIT SC (23:09)
[2023-05-30] MEDS: traZODone 100 MG Tablet 150 MG PO (23:35)
[2023-05-31] VITALS (9 sets, daily range): BP systolic 96–194; BP diastolic 45–75; PULSE 53–100; RESP 16–18; TEMP 36.4–36.7; O2SAT 95–98; BMI 34.7
[2023-05-31] MEDS: ALPRAZolam 0.25 MG Tablet PO ×3 (06:20→21:07)
[2023-05-31] MEDS: Acetaminophen 500 MG Tablet 1000 MG PO ×3 (06:21→22:35)
[2023-05-31] MEDS: hydrALAZINE 25 MG Tablet PO ×2 (06:28→13:37)
[2023-05-31] MEDS: tiZANidine HCl 2 MG Tablet 4 MG PO ×3 (06:30→21:10)
[2023-05-31] MEDS: Pramipexole Di-HCl 1 MG Tablet PO ×2 (10:13→21:12)
[2023-05-31] MEDS: APIXABAN 5 MG TABLET PO ×2 (10:13→21:11)
[2023-05-31] MEDS: Topiramate 50 MG Tablet PO ×2 (10:13→21:13)
[2023-05-31] MEDS: HYDROcodone Bitartrate/Apap 5/325 Tablet PO (10:27)
[2023-05-31] MEDS: Potassium Chloride Oral Tablet 20 MEQ PO (11:37)
[2023-05-31] MEDS: Losartan Potassium 100 MG Tablet PO (11:37)
[2023-05-31] MEDS: Furosemide 20 MG Tablet PO (11:38)
[2023-05-31] MEDS: Escitalopram Oxalate 10 MG Tablet PO (11:38)
[2023-05-31] MEDS: Cholecalciferol (Vit D3) 125 MCG CAPSULE (5,000 UNITS) PO (11:39)
[2023-05-31] MEDS: Lidocaine 5% Patch 2 PATCH TOPICAL (11:39)
[2023-05-31] MEDS: amLODIPine 5 MG Tablet PO (11:39)
[2023-05-31] MEDS: Montelukast 10 MG Tablet PO (11:39)
[2023-05-31] MEDS: Mag Hydrox/Al Hydrox/Simeth 30 ML UDC PO (11:45)
[2023-05-31] MEDS: Metoprolol(XL)Succ 25 MG Tablet PO (11:46)
--- NOTE | 2023-05-31 15:11 | CASEMGMT ---
Social Work IDT discussed patient's progress and agreeable with proceeding with DC. IRINA sent updated clinicals to [facility] to ensure return with request to DC 06/07. IRINA left voicemail with dtr to discuss. Will continue to follow. Regi rCow, DRYING OVEN TENDER DIRECTOR PHONE
--- NOTE | 2023-05-31 15:39 | CHAPLAIN ---
Type of Pastoral Visit ___ Initial Visit _x__ Follow-up Visit ___ On-call Visit ___ General Patient Visit ___ Spiritual Assessment ___ Family Conference ___ Bereavement ___ Rapid Response ___ Code Blue ___ Other (describe below) Pastoral Care Referral From _x__ Patient ___ Family ___ Nurse ___ Physician ___ Herbarium Curator ___ Inside Solar Sales Consultant ___ Other (describe below) Sacrament/Intervention _x__ Active listening ___ Anointing ___ Cheondoism ___ Bereavement ___ Communion ___ Mandy exploration ___ _x__ Life review _x__ Prayer ___ Reconciliation ___ Sacrament of Sick _x__ Supportive presence ___ Wedding ___ Other (describe below) Pastoral Comments patient is very welcoming; pt gives a good news and bad news report on her health and progress; pt reviews her symptoms and status and finds some hopeful words about returning to [place] and for her son who is to visit later today; patient speaks of inability to really read much but would welcome a short devotional booklet for inspiration; prayer given and a return later with a Daily Bread devotional booklet
[2023-05-31 18:15] LABS: Bacteria 0 SEEN /hpf (None Seen); Mucous, Urine 0 SEEN /hpf (<or=2+); Red Blood Cells-Urine 0 SEEN /hpf (0-5); Squamous Epithelial Cells - UA 0 SEEN /hpf (5-10); White Blood Cells 0 SEEN /hpf (0-5)
[2023-05-31 18:23] LABS: Color, Urine Yellow (Yellow); Glucose, Dipstick Normal (Normal); Ketone-Dipstick Negative (Negative); Leukocyte Esterase-Dipstick Negative /ul (Negative); Nitrite-Dipstick Negative (Negative); Occult Blood-Urine Negative /ul (Negative); Protein-Dipstick Negative (Negative); Urine Bilirubin Dipstick Negative (Negative); Urine Clarity Clear (Clear); Urine Urobilinogen Normal (Normal)
[2023-05-31] MEDS: traZODone 100 MG Tablet 150 MG PO (21:10)
[2023-05-31] MEDS: Insulin Glargine-YFGN 100 UNIT/ML Pen 40 UNIT SC (21:11)
[2023-05-31] MEDS: Atorvastatin Calcium 40 MG Tablet PO (21:12)
[2023-05-31 21:39] LABS: Bedside Glucose 172 mg/dL (74-106)
[2023-06-01] VITALS (8 sets, daily range): BP systolic 132–165; BP diastolic 48–74; PULSE 54–90; RESP 16; TEMP 36.3; O2SAT 95–97
[2023-06-01] MEDS: hydrALAZINE 25 MG Tablet PO ×4 (04:56→22:12)
[2023-06-01] MEDS: ALPRAZolam 0.25 MG Tablet PO ×3 (04:56→22:12)
[2023-06-01] MEDS: tiZANidine HCl 2 MG Tablet 4 MG PO ×3 (04:57→22:12)
[2023-06-01 05:42] LABS: Absolute Lymphocyte Count 4.67 X10^3/uL (0.83-4.51); Absolute Neutrophil Count 3.4 X10^3/uL (2.0-7.7); Basophil# 0.07 X10^3/uL; Basophil% 0.8 % (0-1); Eosinophil# 0.12 X10^3/uL; Eosinophils% 1.4 % (0-5); Hematocrit 39.5 % (37-47); Hemoglobin 12.7 g/dL (12.0-15.0); Lymphocyte # 4.67 X10^3/ul (0.83-4.51); Lymphocyte % 53.2 % (19-41); Mean Corp Hgb Conc 32.2 g/dL (32-36); Mean Corpuscular Hgb 30.2 pg (27.0-32.0); Mean Corpuscular Volume 93.8 fL (81-99); Monocyte# 0.48 X10^3/uL; Monocyte% 5.5 % (0-10); NRBC Flagged by Analyzer 0 % (0-5); Neutrophil # 3.42 X10^3/uL (2.7-7.7); Neutrophil % 38.9 % (47-70); Platelet Count 371 K/mm3 (150-450); RBC Distribution Width CV 13.1 % (11.6-14.6); RBC Distribution Width SD 44.6 fl (35.1-43.9); Red Blood Count 4.21 M/mm3 (4.2-5.4); White Blood Count 8.8 K/mm3 (4.4-11.0)
[2023-06-01 06:05] LABS: Anion Gap 6 (5-15); BUN 18 mg/dL (7-18); BUN/Creat Ratio 17.5 RATIO (10-20); Calcium,Total 9.6 mg/dL (8.5-10.1); Chloride 112 mmol/L (98-107); Creatinine, Serum 1.03 mg/dL (0.55-1.02); EST Glomerular Filtration Rate 55 mL/min (>60); Est Glom Filt Rate - Afr Amer 66 mL/min (>60); Estimated Creatinine Clearance 34.45 ml/min; Glucose 96 mg/dL (74-106); Potassium 3.7 mmol/L (3.5-5.1); Sodium Level 141 mmol/L (136-145)
[2023-06-01] MEDS: Acetaminophen 500 MG Tablet 1000 MG PO ×3 (06:11→22:13)
[2023-06-01 06:48] LABS: Bedside Glucose 110 mg/dL (74-106)
[2023-06-01] MEDS: Furosemide 20 MG Tablet PO (08:54)
[2023-06-01] MEDS: APIXABAN 5 MG TABLET PO ×2 (08:54→22:13)
[2023-06-01] MEDS: Topiramate 50 MG Tablet PO ×2 (08:54→22:12)
[2023-06-01] MEDS: Potassium Chloride Oral Tablet 20 MEQ PO (08:54)
[2023-06-01] MEDS: Losartan Potassium 100 MG Tablet PO (08:54)
[2023-06-01] MEDS: Escitalopram Oxalate 10 MG Tablet PO (08:54)
[2023-06-01] MEDS: Montelukast 10 MG Tablet PO (08:54)
[2023-06-01] MEDS: Lidocaine 5% Patch 2 PATCH TOPICAL (08:55)
[2023-06-01] MEDS: HYDROcodone Bitartrate/Apap 5/325 Tablet PO (10:47)
[2023-06-01] MEDS: Metoprolol(XL)Succ 25 MG Tablet PO (10:48)
[2023-06-01] MEDS: amLODIPine 5 MG Tablet PO (10:48)
[2023-06-01] MEDS: Pramipexole Di-HCl 1 MG Tablet PO ×2 (10:49→22:12)
[2023-06-01] MEDS: Cholecalciferol (Vit D3) 125 MCG CAPSULE (5,000 UNITS) PO (10:49)
--- NOTE | 2023-06-01 11:04 | CASEMGMT ---
Social Work Received return call from dtr. Dtr stated she tested positive for COVID 05/31 and is not feeling well. SW offered to postpone DC until day 10/dtr feeling better for 06/10. Dtr agreeable. SW confirmed [facility] is able to accept pt at time of DC. SW updated [facility] with new DC date. SW to coordinate [facility] once DC date is confirmed. Regi Crow, SIDE LASTER GUEST HOUSE MANAGER
[2023-06-01] MEDS: Mag Hydrox/Al Hydrox/Simeth 30 ML UDC PO (14:52)
[2023-06-01 21:36] LABS: Bedside Glucose 184 mg/dL (74-106)
[2023-06-01] MEDS: Mirtazapine 15 MG Tablet 7.5 MG PO (22:12)
[2023-06-01] MEDS: Insulin Glargine-YFGN 100 UNIT/ML Pen 40 UNIT SC (22:13)
[2023-06-01] MEDS: Atorvastatin Calcium 40 MG Tablet PO (22:16)
[2023-06-01] MEDS: traZODone 100 MG Tablet 150 MG PO (22:17)
[2023-06-02] VITALS (7 sets, daily range): BP systolic 127–204; BP diastolic 52–72; PULSE 53–80; RESP 16; TEMP 36; O2SAT 97
[2023-06-02] MEDS: Acetaminophen 500 MG Tablet 1000 MG PO ×3 (06:15→21:15)
[2023-06-02] MEDS: tiZANidine HCl 2 MG Tablet 4 MG PO ×3 (06:15→21:15)
[2023-06-02] MEDS: ALPRAZolam 0.25 MG Tablet PO ×3 (06:15→21:15)
[2023-06-02] MEDS: hydrALAZINE 25 MG Tablet PO (06:15)
[2023-06-02 06:49] LABS: Bedside Glucose 86 mg/dL (74-106)
[2023-06-02] MEDS: Potassium Chloride Oral Tablet 20 MEQ PO (10:09)
[2023-06-02] MEDS: Losartan Potassium 100 MG Tablet PO (10:14)
[2023-06-02] MEDS: Montelukast 10 MG Tablet PO (10:14)
[2023-06-02] MEDS: Cholecalciferol (Vit D3) 125 MCG CAPSULE (5,000 UNITS) PO (10:14)
[2023-06-02] MEDS: Furosemide 20 MG Tablet PO (10:14)
[2023-06-02] MEDS: Pramipexole Di-HCl 1 MG Tablet PO ×2 (10:14→21:15)
[2023-06-02] MEDS: Escitalopram Oxalate 10 MG Tablet PO (10:15)
[2023-06-02] MEDS: Lidocaine 5% Patch 2 PATCH TOPICAL (10:15)
[2023-06-02] MEDS: APIXABAN 5 MG TABLET PO ×2 (10:15→21:15)
[2023-06-02] MEDS: amLODIPine 5 MG Tablet PO (10:15)
[2023-06-02] MEDS: Metoprolol(XL)Succ 50 MG Tablet PO (10:16)
[2023-06-02] MEDS: Topiramate 50 MG Tablet PO ×2 (10:16→21:15)
[2023-06-02] MEDS: HYDROcodone Bitartrate/Apap 5/325 Tablet PO (10:17)
[2023-06-02] MEDS: hydrALAZINE 50 MG Tablet PO ×3 (14:01→21:31)
[2023-06-02] MEDS: Atorvastatin Calcium 40 MG Tablet PO (21:15)
[2023-06-02] MEDS: Mirtazapine 15 MG Tablet 7.5 MG PO (21:15)
[2023-06-02] MEDS: Senna/Docusate Sodium 1 Tablet 2 TABLET PO (21:15)
[2023-06-02] MEDS: traZODone 100 MG Tablet 150 MG PO (21:15)
[2023-06-02 22:08] LABS: Bedside Glucose 197 mg/dL (74-106)
--- NOTE | 2023-06-02 22:13 | NURSING ---
Pt told this nurse that she spoke to her daughter and that her daughter tested negative for COVID-19, she said it must have been a false positive. Management to be updated.
[2023-06-02] MEDS: Insulin Glargine-YFGN 100 UNIT/ML Pen 40 UNIT SC (22:59)
[2023-06-03] VITALS (8 sets, daily range): BP systolic 136–169; BP diastolic 63–72; PULSE 60–75; RESP 17; TEMP 36.7; O2SAT 97
[2023-06-03] MEDS: Acetaminophen 500 MG Tablet 1000 MG PO ×3 (06:15→21:39)
[2023-06-03] MEDS: ALPRAZolam 0.25 MG Tablet PO ×3 (06:16→21:40)
[2023-06-03] MEDS: tiZANidine HCl 2 MG Tablet 4 MG PO ×3 (06:16→21:41)
[2023-06-03] MEDS: hydrALAZINE 50 MG Tablet PO ×4 (06:17→21:39)
[2023-06-03 06:35] LABS: Bedside Glucose 86 mg/dL (74-106)
--- NOTE | 2023-06-03 08:16 | NURSING ---
Dr. Ortiz made aware of urine culture positive for VRE, order to monitor as its below infection level.
[2023-06-03] MEDS: Escitalopram Oxalate 10 MG Tablet PO (10:09)
[2023-06-03] MEDS: Furosemide 20 MG Tablet PO (10:09)
[2023-06-03] MEDS: Lidocaine 5% Patch 2 PATCH TOPICAL (10:09)
[2023-06-03] MEDS: APIXABAN 5 MG TABLET PO ×2 (10:09→21:40)
[2023-06-03] MEDS: Potassium Chloride Oral Tablet 20 MEQ PO (10:09)
[2023-06-03] MEDS: Losartan Potassium 100 MG Tablet PO (10:09)
[2023-06-03] MEDS: Metoprolol(XL)Succ 50 MG Tablet PO (10:10)
[2023-06-03] MEDS: amLODIPine 5 MG Tablet PO (10:10)
[2023-06-03] MEDS: Pramipexole Di-HCl 1 MG Tablet PO ×2 (10:10→21:40)
[2023-06-03] MEDS: Topiramate 50 MG Tablet PO ×2 (10:10→21:39)
[2023-06-03] MEDS: Montelukast 10 MG Tablet PO (10:10)
[2023-06-03] MEDS: Cholecalciferol (Vit D3) 125 MCG CAPSULE (5,000 UNITS) PO (10:11)
[2023-06-03] MEDS: HYDROcodone Bitartrate/Apap 5/325 Tablet PO (12:25)
[2023-06-03 21:28] LABS: Bedside Glucose 249 mg/dL (74-106)
[2023-06-03] MEDS: Atorvastatin Calcium 40 MG Tablet PO (21:40)
[2023-06-03] MEDS: Senna/Docusate Sodium 1 Tablet 2 TABLET PO (21:40)
[2023-06-03] MEDS: Mirtazapine 15 MG Tablet 7.5 MG PO (21:40)
[2023-06-03] MEDS: Insulin Glargine-YFGN 100 UNIT/ML Pen 40 UNIT SC (21:41)
[2023-06-04] MEDS: ALPRAZolam 0.25 MG Tablet PO ×3 (05:24→22:19)
[2023-06-04] MEDS: tiZANidine HCl 2 MG Tablet 4 MG PO ×3 (05:25→22:24)
[2023-06-04] MEDS: Acetaminophen 500 MG Tablet 1000 MG PO ×3 (05:25→22:20)
[2023-06-04 05:27] VITALS: BP 161/81; PULSE 75
[2023-06-04] MEDS: hydrALAZINE 50 MG Tablet PO ×4 (05:27→22:21)
[2023-06-04] MEDS: Loperamide 2 MG Capsule PO (06:32)
[2023-06-04 06:51] LABS: Bedside Glucose 142 mg/dL (74-106)
[2023-06-04 10:08] VITALS: BP 158/63; PULSE 76
[2023-06-04] MEDS: Metoprolol(XL)Succ 50 MG Tablet PO (10:08)
[2023-06-04] MEDS: Cholecalciferol (Vit D3) 125 MCG CAPSULE (5,000 UNITS) PO (10:08)
[2023-06-04] MEDS: Topiramate 50 MG Tablet PO ×2 (10:09→22:23)
[2023-06-04] MEDS: Pramipexole Di-HCl 1 MG Tablet PO ×2 (10:09→22:27)
[2023-06-04] MEDS: Potassium Chloride Oral Tablet 20 MEQ PO (10:09)
[2023-06-04] MEDS: Losartan Potassium 100 MG Tablet PO (10:09)
[2023-06-04] MEDS: Escitalopram Oxalate 10 MG Tablet PO (10:10)
[2023-06-04] MEDS: APIXABAN 5 MG TABLET PO ×2 (10:10→22:25)
[2023-06-04] MEDS: Furosemide 20 MG Tablet PO (10:10)
[2023-06-04] MEDS: amLODIPine 5 MG Tablet PO (10:10)
[2023-06-04] MEDS: Montelukast 10 MG Tablet PO (10:10)
[2023-06-04] MEDS: Lidocaine 5% Patch 2 PATCH TOPICAL (10:11)
[2023-06-04] MEDS: HYDROcodone Bitartrate/Apap 5/325 Tablet PO (10:24)
[2023-06-04 12:59] VITALS: BP 129/46; PULSE 60
[2023-06-04 15:50] VITALS: BP 134/67; PULSE 60; RESP 18; TEMP 36.3; O2SAT 96
[2023-06-04 17:46] VITALS: BP 156/53; PULSE 60
[2023-06-04] MEDS: Glycerin/Hypromellose/PEG400 15 ml Bottle 2 DRP EACH EYE (18:39)
[2023-06-04 21:51] LABS: Bedside Glucose 304 mg/dL (74-106)
[2023-06-04 22:21] VITALS: BP 162/52; PULSE 63
[2023-06-04] MEDS: Atorvastatin Calcium 40 MG Tablet PO (22:24)
[2023-06-04] MEDS: Mirtazapine 15 MG Tablet 7.5 MG PO (22:25)
[2023-06-04] MEDS: traZODone 100 MG Tablet 150 MG PO (22:26)
[2023-06-04] MEDS: Insulin Glargine-YFGN 100 UNIT/ML Pen 40 UNIT SC (22:28)
[2023-06-05] MEDS: ALPRAZolam 0.25 MG Tablet PO ×3 (06:17→22:27)
[2023-06-05] MEDS: Acetaminophen 500 MG Tablet 1000 MG PO ×3 (06:17→22:25)
[2023-06-05 06:18] VITALS: BP 148/56; PULSE 65
[2023-06-05] MEDS: hydrALAZINE 50 MG Tablet PO ×4 (06:18→22:23)
[2023-06-05] MEDS: tiZANidine HCl 2 MG Tablet 4 MG PO ×3 (06:19→22:23)
[2023-06-05 06:53] LABS: Bedside Glucose 119 mg/dL (74-106)
[2023-06-05] MEDS: HYDROcodone Bitartrate/Apap 5/325 Tablet PO (09:40)
[2023-06-05] MEDS: Potassium Chloride Oral Tablet 20 MEQ PO (09:41)
[2023-06-05 09:42] VITALS: BP 152/53; PULSE 64
[2023-06-05] MEDS: Escitalopram Oxalate 10 MG Tablet PO (09:42)
[2023-06-05] MEDS: Losartan Potassium 100 MG Tablet PO (09:42)
[2023-06-05] MEDS: Pramipexole Di-HCl 1 MG Tablet PO ×2 (09:42→22:26)
[2023-06-05] MEDS: Montelukast 10 MG Tablet PO (09:42)
[2023-06-05] MEDS: Topiramate 50 MG Tablet PO ×2 (09:42→22:25)
[2023-06-05] MEDS: Metoprolol(XL)Succ 50 MG Tablet PO (09:42)
[2023-06-05] MEDS: Cholecalciferol (Vit D3) 125 MCG CAPSULE (5,000 UNITS) PO (09:42)
[2023-06-05] MEDS: APIXABAN 5 MG TABLET PO ×2 (09:42→22:25)
[2023-06-05] MEDS: Furosemide 20 MG Tablet PO (09:42)
[2023-06-05] MEDS: amLODIPine 5 MG Tablet PO (09:42)
[2023-06-05 12:36] VITALS: BP 158/54; PULSE 57
[2023-06-05 14:27] VITALS: PULSE 52; RESP 16; TEMP 36.2; O2SAT 100
[2023-06-05 17:37] VITALS: BP 131/54; PULSE 52
[2023-06-05 21:50] LABS: Bedside Glucose 169 mg/dL (74-106)
--- NOTE | 2023-06-05 22:21 | EKG12_ITS ---
Test Reason : CP Blood Pressure : / mmHG Vent. Rate : 068 BPM Atrial Rate : 068 BPM P-R Int : 224 ms QRS Dur : 082 ms QT Int : 394 ms P-R-T Axes : 066 034 062 degrees QTc Int : 418 ms Sinus rhythm with 1st degree A-V block with Premature supraventricular complexes Otherwise normal ECG When compared with ECG of 12-MAY-2023 21:30, Premature supraventricular complexes are now Present QT has shortened Confirmed by VIJAYA ALY, CHARLI ([id number]), communications editor NEERAJ JUAN ([id number]) on 07/12/2023 11:26:56 AM Referred By: NICHOLAS Confirmed By:CHARLI LILLY MD
[2023-06-05 22:23] VITALS: BP 115/55; PULSE 69
[2023-06-05] MEDS: traZODone 100 MG Tablet 150 MG PO (22:24)
[2023-06-05] MEDS: Atorvastatin Calcium 40 MG Tablet PO (22:25)
[2023-06-05] MEDS: Mirtazapine 15 MG Tablet 7.5 MG PO (22:26)
[2023-06-05] MEDS: Insulin Glargine-YFGN 100 UNIT/ML Pen 40 UNIT SC (22:27)
--- NOTE | 2023-06-05 22:44 | NURSING ---
Pt c/o left chest discomfort w/ onset approximately 5 minutes prior to reporting the complaint to this nurse. Places hand over lower left breast. Notes the pain hurts and level is 10/10. In no acute distress. Pt w/ a hx of decreased mentation. Does not answer all questions asked appropriately. Denies that pain is radiating. Denies shortness of breath. Unsure of she has experienced this type of pain in the past. Denies palpitations. Denies heartburn or indigestion. Denies nausea. Skin pink, warm, and dry. SpO2 99% on room air. BP and pulse recorded on DEC when HS meds administered- refer to vital signs. Order placed for EKG. Respiratory on the unit and performed EKG. Pt denies any further c/o pain while this nurse remained in room after EKG complete. Pt able to conduct a discussion with this nurse without any difficulty- shows no sxs pain or conversational dyspnea. Offered SL Nitro and pt refuses. Pt thinks the pain may be associated w/ anxiety as she notes this has occurred in the past. Will continue to monitor. Call light w/ in reach. Pt then gets up to ambulate to the bathroom independently as this nurse is leaving pt's room.
[2023-06-06] VITALS (7 sets, daily range): BP systolic 104–162; BP diastolic 42–75; PULSE 48–96; RESP 14; TEMP 36.4; O2SAT 97–98
[2023-06-06] MEDS: ALPRAZolam 0.25 MG Tablet PO ×3 (06:05→21:51)
[2023-06-06] MEDS: Acetaminophen 500 MG Tablet 1000 MG PO ×3 (06:06→21:51)
[2023-06-06] MEDS: tiZANidine HCl 2 MG Tablet 4 MG PO ×3 (06:06→21:52)
[2023-06-06] MEDS: hydrALAZINE 50 MG Tablet PO ×4 (06:06→21:52)
[2023-06-06 06:44] LABS: Bedside Glucose 97 mg/dL (74-106)
[2023-06-06] MEDS: Potassium Chloride Oral Tablet 20 MEQ PO (08:32)
[2023-06-06] MEDS: Furosemide 20 MG Tablet PO (08:34)
[2023-06-06] MEDS: APIXABAN 5 MG TABLET PO ×2 (08:34→21:52)
[2023-06-06] MEDS: Escitalopram Oxalate 10 MG Tablet PO (08:35)
[2023-06-06] MEDS: Lidocaine 5% Patch 2 PATCH TOPICAL (08:35)
[2023-06-06] MEDS: Pramipexole Di-HCl 1 MG Tablet PO ×2 (08:36→21:52)
[2023-06-06] MEDS: amLODIPine 5 MG Tablet PO (08:37)
[2023-06-06] MEDS: Montelukast 10 MG Tablet PO (08:37)
[2023-06-06] MEDS: Topiramate 50 MG Tablet PO ×2 (08:38→21:51)
[2023-06-06] MEDS: Cholecalciferol (Vit D3) 125 MCG CAPSULE (5,000 UNITS) PO (08:39)
[2023-06-06 12:21] LABS: Bedside Glucose 195 mg/dL (74-106)
[2023-06-06] MEDS: HYDROcodone Bitartrate/Apap 5/325 Tablet PO (12:43)
[2023-06-06 16:52] LABS: Bedside Glucose 169 mg/dL (74-106)
[2023-06-06 21:42] LABS: Bedside Glucose 220 mg/dL (74-106)
[2023-06-06] MEDS: traZODone 100 MG Tablet 150 MG PO (21:51)
[2023-06-06] MEDS: Mirtazapine 15 MG Tablet 7.5 MG PO (21:52)
[2023-06-06] MEDS: Atorvastatin Calcium 40 MG Tablet PO (21:52)
[2023-06-06] MEDS: Insulin Glargine-YFGN 100 UNIT/ML Pen 40 UNIT SC (21:55)
[2023-06-07] VITALS (9 sets, daily range): BP systolic 77–173; BP diastolic 34–65; PULSE 53–100; RESP 16–19; TEMP 36.1; O2SAT 98; BMI 33.7
[2023-06-07] MEDS: hydrALAZINE 50 MG Tablet PO ×3 (06:26→21:31)
[2023-06-07] MEDS: ALPRAZolam 0.25 MG Tablet PO ×3 (06:40→21:41)
[2023-06-07 06:41] LABS: Bedside Glucose 123 mg/dL (74-106)
[2023-06-07] MEDS: tiZANidine HCl 2 MG Tablet 4 MG PO ×3 (06:41→21:32)
[2023-06-07] MEDS: Acetaminophen 500 MG Tablet 1000 MG PO ×3 (06:42→21:31)
--- NOTE | 2023-06-07 08:13 | NURSING ---
This RN checked pt's blood pressure at 0810 per order (recheck after morning medications). Pt's BP was 77/[address] Ortiz notified, Dr said to encourage fluids and monitor. Pt denies feeling dizzy/lightheaded, says she feels sleepy. Pt received hydralazine and xanax at 0626
[2023-06-07] MEDS: Potassium Chloride Oral Tablet 20 MEQ PO (09:05)
[2023-06-07] MEDS: HYDROcodone Bitartrate/Apap 5/325 Tablet PO (09:05)
[2023-06-07] MEDS: Escitalopram Oxalate 10 MG Tablet PO (09:06)
[2023-06-07] MEDS: Montelukast 10 MG Tablet PO (09:06)
[2023-06-07] MEDS: APIXABAN 5 MG TABLET PO ×2 (09:06→21:33)
[2023-06-07] MEDS: Pramipexole Di-HCl 1 MG Tablet PO ×2 (09:06→21:34)
[2023-06-07] MEDS: Cholecalciferol (Vit D3) 125 MCG CAPSULE (5,000 UNITS) PO (09:06)
[2023-06-07] MEDS: Topiramate 50 MG Tablet PO ×2 (09:06→21:37)
[2023-06-07] MEDS: Lidocaine 5% Patch 2 PATCH TOPICAL (09:06)
[2023-06-07] MEDS: amLODIPine 5 MG Tablet PO (11:22)
[2023-06-07] MEDS: Furosemide 20 MG Tablet PO (11:22)
[2023-06-07] MEDS: Losartan Potassium 100 MG Tablet PO (11:22)
[2023-06-07] MEDS: Metoprolol(XL)Succ 50 MG Tablet PO (11:22)
[2023-06-07 11:44] LABS: Bedside Glucose 171 mg/dL (74-106)
--- NOTE | 2023-06-07 15:05 | CASEMGMT ---
Social Work SW phoned dtr to confirm pt DC 06/10 to [facility]. Dtr confirmed and agreeable to start skilled [facility] services. SW sent secure email to Jerrod at [facility] to update. Referral made to [facility], preferred provider at [facility], for PT/OT/ST, via [facility]. Plan: DC 06/10 returning to [facility], Critical access hospital PT/OT/ST YI Hanna BLEACH PLANT OPERATOR
[2023-06-07 16:41] LABS: Bedside Glucose 192 mg/dL (74-106)
--- NOTE | 2023-06-07 20:51 | PCM.DC.SUM ---
Providers Date of Admission: 05/17/23 Primary Care Physician: Dr. Isra Rubalcava MD Reason For Visit: FUO/TRANSAMINITIS/HYPERBILIRUBINEMIA Diagnosis Discharge Diagnosis (1) Debility: Status: Acute Code(s): R53.81 - Other malaise (2) Fever: Status: Resolved Code(s): R50.9 - Fever, unspecified Qualifiers: Fever type: unspecified Qualified Code(s): R50.9 - Fever, unspecified (3) Encephalopathy: Status: Acute Code(s): G93.40 - Encephalopathy, unspecified (4) Jaundice: Status: Resolved Code(s): R17 - Unspecified jaundice (5) Transaminitis: Status: Resolved Code(s): R74.01 - Elevation of levels of liver transaminase levels (6) Acute cholangitis: Status: Acute Code(s): K83.09 - Other cholangitis (7) Choledocholithiasis: Status: Acute Code(s): K80.50 - Calculus of bile duct without cholangitis or cholecystitis without obstruction (8) Atrial fibrillation: Status: Acute Code(s): I48.91 - Unspecified atrial fibrillation (9) Hypertension: Status: Chronic Code(s): I10 - Essential (primary) hypertension (10) Restrictive lung disease: Status: Acute Code(s): J98.4 - Other disorders of lung (11) Coronary artery disease: Status: Acute Code(s): I25.10 - Atherosclerotic heart disease of [place] coronary artery without angina pectoris (12) Hyperlipidemia: Status: Inactive Code(s): E78.5 - Hyperlipidemia, unspecified Qualifiers: Hyperlipidemia type: unspecified Qualified Code(s): E78.5 - Hyperlipidemia, unspecified (13) Anxiety: Status: Acute Code(s): F41.9 - Anxiety disorder, unspecified (14) Allergic rhinitis: Status: Acute Code(s): J30.9 - Allergic rhinitis, unspecified (15) Depression: Status: Acute Code(s): F32.A - Depression, unspecified (16) Diabetes mellitus: Status: Inactive Code(s): E11.9 - Type 2 diabetes mellitus without complications Qualifiers: Qualified Code(s): Z79.4 - continuous churn buttermaker (current) use of insulin; Z79.4 - [facility] (current) use of insulin; Z79.4 - continuous churn buttermaker (current) use of insulin; Z79.4 - [facility] (current) use of insulin (17) Restless leg syndrome: Status: Acute Code(s): G25.81 - Restless legs syndrome (18) Insomnia: Status: Inactive Code(s): G47.00 - Insomnia, unspecified (19) Overactive bladder: Status: Acute Code(s): N32.81 - Overactive bladder (20) Muscle spasm: Status: Acute Code(s): M62.838 - Other muscle spasm Plan 82 year old female with below past medical history hospitalized for fever, encephalopathy, jaundice secondary to acute cholangitis from choledocholithiasis, admitted to TCU with debility, here for rehabilitation, strengthening, prior to discharge home to [facility]. Debility - PT/OT. Pain - Tylenol 1000mg q6h prn pain (1-5), [place] 5/325mg 1 tablet Q12H prn pain (6-10). Bowel - Loperamide 4mg q2h prn. Adult immunization - Administer pneumonia vaccine, covid19 vaccine, flu vaccine as appropriate. DVT prophylaxis - on Eliquis. Anxiety - Xanax 0.5mg 4x/day, stable chronic long term care administrator use, GDR not recommended. Hypertension - Metoprolol succinate 25mg daily, Losartan 100mg daily, Amlodipine 5mg daily. Atrial fibrillation - Metoprolol succinate 25mg daily, Eliquis 5mg bid. Hyperlipidemia - Atorvastatin 40mg qhs. Depression - Lexapro 10mg daily, Topamax 50mg bid, stable chronic long term care administrator use, GDR not recommended. Edema - Furosemide 20mg daily. Diabetes Mellitus II - Glargine 40 units qhs. Acute cholangitis s/p ERCP - Levaquin 750mg daily thru 05/19/2023. Coronary artery disease - Metoprolol succinate 25mg daily, Losartan 100mg daily, NTG 0.4mg sl q5m prn. Allergic rhinitis - Singulair 10mg daily. Restless leg syndrome - Mirapex 1mg bid. Muscle spasm - Tizanidine 4mg q8h. Insomnia - Trazodone 300mg qhs, stable chronic long term care administrator use, GDR not recommended. Vitamin D deficiency - D3 125mcg daily. Medications at Discharge Home Medications atorvastatin 40 mg tablet 40 mg PO QDAY cholesterol #30 tabs 03/02/18 alprazolam 0.5 mg tablet 0.5 mg PO 4X/DAY anxiety 11/23/19 montelukast 10 mg tablet 10 mg PO DAILY allergies 12/29/20 nitroglycerin 0.4 mg sublingual tablet (Nitrostat) 0.4 mg sublingual Q5-15M PRN chest pain #25 tabs 10/21/21 BP cuff #1 ea 01/20/22 cholecalciferol (vitamin D3) 125 mcg (5,000 unit) capsule 125 mcg PO DAILY vitamin 01/20/22 escitalopram oxalate 10 mg tablet (Lexapro) 10 mg PO DAILY depression 01/20/22 topiramate 100 mg tablet 50 mg PO BID nerve pain 01/20/22 acetaminophen 500 mg tablet (Tylenol Extra Strength) 1,000 mg PO Q4H PRN pain 05/19/22 hydrocodone-acetaminophen 5-325mg 5mg-325mg (Clever) 1 tab PO Q12H PRN Pain 1-10 Or Fever 05/19/22 ropinirole 1 mg tablet 2 mg PO BID pain 05/19/22 trazodone 150 mg tablet 300 mg PO QHS sleep 05/19/22 apixaban 5 mg tablet (Eliquis) 5 mg PO DAILY blood thinner 04/20/23 furosemide 20 mg tablet 20 mg PO DAILY water pill 05/12/23 tizanidine 4 mg capsule 4 mg PO Q8H spasms 05/12/23 loperamide 2 mg capsule (Anti-Diarrheal (loperamide)) 4 mg PO Q2H PRN diarrhea 05/16/23 amlodipine 5 mg tablet 5 mg PO DAILY BP #0 tabs 05/17/23 insulin glargine-yfgn 100 unit/mL (3 mL) subcutaneous pen 40 unit (0.4 mL) subcut QHS blood sugar #15 mL 05/17/23 losartan 100 mg tablet 100 mg PO DAILY BP #1 TAB 05/17/23 metoprolol succinate 50 mg tablet,extended release 24 hr 50 mg PO DAILY 30 days #30 tabs 06/07/23 Hospital Course Operations ERCP Procedures None Summary of Care Provided Minutes Spent on Discharge: 35 Hospital Course: 82 year old female with below past medical history hospitalized for fever, encephalopathy, jaundice secondary to acute cholangitis from choledocholithiasis, admitted to TCU with debility, here for rehabilitation, strengthening, prior to discharge home to [facility]. Discharge to [facility] 06/10/2023, [facility] PT/OT/ST. Physical Exam Const alert General Appearance: cooperative HEENT normocephalic Eyes PERRL and EOMs intact bilaterally Neck supple, no JVD and no carotid bruits Resp normal respiratory effort, normal air movement and clear to auscultation bilaterally Cardio regular rate and regular rhythm GI normal to inspection, nondistended, normoactive bowel sounds, non-tender and non-distended Extremity normal capillary refill General Extremity: Negative for edema Skin no rashes or lesions noted General Skin Exam: no breakdown Psych affect normal Appearance: appropriate Weight / BMI Weight Weight: 83.688 kg Body Mass Index (BMI) 33.7 ABG / Lab / Microbiology Data 06/01/23 05:18 06/01/23 05:18 Laboratory: Laboratory Results - last 24 hr 06/06/23 21:21: POC Glucose 220 H 06/07/23 06:19: POC Glucose 123 H 06/07/23 11:21: POC Glucose 171 H 06/07/23 16:23: POC Glucose 192 H Microbiology: Microbiology 05/31/23 18:00 Urine, Catheterized Urine Culture - Final Escherichia coli Vancomycin Resist. E. faecalis Aerococcus viridans. 05/31/23 18:21 Nasal Secretion SARS-CoV-2 Antigen (Rapid) - Final 05/29/23 10:10 Stool C. difficile DNA Amplification - Final D/C Instructions Discharge Diet: No restrictions Discharge Activity: Return to Normal Activity, May Shower and Use Walker Weight Bearing Status: Weight bearing as tolerated Call your doctor if you observe: Fever of 101 or Higher, Inability to urinate, Inability to have a bowel movement, Shortness of breath, Dizziness, Fainting spells, Swelling in the ankles, Chest pain and Uncontrolled pain Additional Instructions: Discharge to [facility] 06/10/2023, [facility] PT/OT/ST. Please Follow Up With: FriendDoe, DO When: As scheduled. Meaningful Use Info Meaningful Use Diagnoses (Choose all that apply): None applicable Discharge Plan Admission Admit Date/Time: 05/17/23 18:15 Primary Reason for Your Visit: Debility. Attending Provider: Senthil Ortiz Chi Primary Care Provider: Isra Rubalcava Instructions Additional Instructions / Restrictions: Discharge to [facility] 06/10/2023, [facility] PT/OT/ST. Discharge Orders/Prescriptions Prescriptions: New metoprolol succinate 50 mg Tablet Extended Release 24 Hr 50 mg PO DAILY 30 Days Qty: 30 0RF Continued alprazolam 0.5 mg tablet 0.5 mg PO 4X/DAY montelukast 10 mg tablet 10 mg PO DAILY hydrocodone-acetaminophen [Clever] 5-325 mg tablet 1 tab PO Q12H PRN (Reason: Pain 1-10 Or Fever) nitroglycerin [Nitrostat] 0.4 mg tablet, sublingual 0.4 mg sublingual Q5-15M PRN (Reason: chest pain) Qty: 25 3RF Rx Instructions: do not exceed 3 doses per episode topiramate 100 mg tablet 50 mg PO BID cholecalciferol (vitamin D3) 125 mcg (5,000 unit) capsule 125 mcg PO DAILY escitalopram oxalate [Lexapro] 10 mg tablet 10 mg PO DAILY trazodone 150 mg tablet 300 mg PO QHS ropinirole 1 mg tablet 2 mg PO BID acetaminophen [Tylenol Extra Strength] 500 mg tablet 1,000 mg PO Q4H PRN (Reason: pain) Eliquis 5 mg tablet 5 mg PO DAILY furosemide 20 mg tablet 20 mg PO DAILY tizanidine 4 mg capsule 4 mg PO Q8H loperamide [Anti-Diarrheal (loperamide)] 2 mg capsule 4 mg PO Q2H PRN (Reason: diarrhea) Rx Instructions: after first loose stool, 1 tablet after each subsequent loose stool but no more than 4 tablets in 24 hours insulin glargine-yfgn 100 unit/mL (3 mL) Insulin Pen 40 unit subcut QHS Qty: 15 0RF amlodipine 5 mg Tablet 5 mg PO DAILY Qty: 0 0RF losartan 100 mg Tablet 100 mg PO DAILY Qty: 1 0RF atorvastatin 40 mg tablet 40 mg PO QDAY Qty: 30 6RF Discontinued aspirin 81 mg tablet,delayed release (DR/EC) 81 mg PO QDAY metoprolol succinate 50 mg tablet extended release 24 hr 25 mg PO DAILY levofloxacin 750 mg tablet 750 mg PO DAILY Qty: 3 0RF No Action (DME) BP cuff See Rx Instructions .Route .MEDSUPPLY Qty: 1 0RF Hold Instructions: MD Ordered Rx Instructions: As directed Referrals / Follow Up: Isra Rubalcava MD [Primary Care Provider] - Disposition Disposition (needs filled in before D/C Order can be placed): Assisted Living
--- NOTE | 2023-06-07 21:02 | TREXTCAR_ITS ---
Diet Diet Order/Speech Therapy: 06/01/23 11:42 Diet: Regular - General Is pt able to select menu?: Yes Diet Comments: small portions per res request Routine Orders/Code Status Code Status: DNRCC-A (With Intubation) Wound(s) Under right breast, open area: Wound Type: Moisture associated Dressing Change: nystatin Posterior right side scab: Wound Type: Scab Therapies Weight Bearing: Weight bearing as tolerated Extremity Affected:: Bilateral Lower Physical Therapy: Eval and Treat Occupational Therapy: Eval and Treat Speech Therapy: Eval and Treat Problem/Diagnosis (1) Debility: Status: Acute Code(s): R53.81 - Other malaise (2) Fever: Status: Resolved Code(s): R50.9 - Fever, unspecified (3) Encephalopathy: Status: Acute Code(s): G93.40 - Encephalopathy, unspecified (4) Jaundice: Status: Resolved Code(s): R17 - Unspecified jaundice (5) Transaminitis: Status: Resolved Code(s): R74.01 - Elevation of levels of liver transaminase levels (6) Acute cholangitis: Status: Acute Code(s): K83.09 - Other cholangitis (7) Choledocholithiasis: Status: Acute Code(s): K80.50 - Calculus of bile duct without cholangitis or cholecystitis without obstruction (8) Atrial fibrillation: Status: Acute Code(s): I48.91 - Unspecified atrial fibrillation (9) Hypertension: Status: Chronic Code(s): I10 - Essential (primary) hypertension (10) Restrictive lung disease: Status: Acute Code(s): J98.4 - Other disorders of lung (11) Coronary artery disease: Status: Acute Code(s): I25.10 - Atherosclerotic heart disease of [place] coronary artery without angina pectoris (12) Hyperlipidemia: Status: Inactive Code(s): E78.5 - Hyperlipidemia, unspecified (13) Anxiety: Status: Acute Code(s): F41.9 - Anxiety disorder, unspecified (14) Allergic rhinitis: Status: Acute Code(s): J30.9 - Allergic rhinitis, unspecified (15) Depression: Status: Acute Code(s): F32.A - Depression, unspecified (16) Diabetes mellitus: Status: Inactive Code(s): E11.9 - Type 2 diabetes mellitus without complications (17) Restless leg syndrome: Status: Acute Code(s): G25.81 - Restless legs syndrome (18) Insomnia: Status: Inactive Code(s): G47.00 - Insomnia, unspecified (19) Overactive bladder: Status: Acute Code(s): N32.81 - Overactive bladder (20) Muscle spasm: Status: Acute Code(s): M62.838 - Other muscle spasm Plan 82 year old female with below past medical history hospitalized for fever, encephalopathy, jaundice secondary to acute cholangitis from choledocholithiasis, admitted to TCU with debility, here for rehabilitation, strengthening, prior to discharge home to [facility]. * Debility - PT/OT. * Pain - Tylenol 1000mg q6h prn pain (1-5), [place] 5/325mg 1 tablet Q12H prn pain (6-10). * Bowel - Loperamide 4mg q2h prn. * Adult immunization - Administer pneumonia vaccine, covid19 vaccine, flu vaccine as appropriate. * DVT prophylaxis - on Eliquis. * Anxiety - Xanax 0.5mg 4x/day, stable chronic half-way use, GDR not recommended. * Hypertension - Metoprolol succinate 25mg daily, Losartan 100mg daily, Amlodipine 5mg daily. * Atrial fibrillation - Metoprolol succinate 25mg daily, Eliquis 5mg bid. * Hyperlipidemia - Atorvastatin 40mg qhs. 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 * Edema - Furosemide 20mg daily. * Diabetes Mellitus II - Glargine 40 units qhs. * Acute cholangitis s/p ERCP - Levaquin 750mg daily thru 05/19/2023. * Coronary artery disease - Metoprolol succinate 25mg daily, Losartan 100mg daily, NTG 0.4mg sl q5m prn. * Allergic rhinitis - Singulair 10mg daily. * Restless leg syndrome - Mirapex 1mg bid. * Muscle spasm - Tizanidine 4mg q8h. * Insomnia - Trazodone 300mg qhs, stable chronic diet kitchen cook use, GDR not recommended. * Vitamin D deficiency - D3 125mcg daily. Allergies/Procedures Done in Hospital Allergies insulin isophane (NPH) Allergy (Severe, Verified 05/12/23 20:52) heart burn Anesthetics - Amide Type - Select A Allergy (Verified 05/12/23 20:52) NEEDS FOLLOW-UP Anesthetics - Tyra Type- Parabens Allergy (Verified 05/12/23 20:52) NEEDS FOLLOW-UP latex Allergy (Verified 05/12/23 20:52) Unknown only allergic when already sick promethazine [From Phenergan] Allergy (Verified 05/12/23 20:52) PT UNSURE OF REACTION sitagliptin phosphate [From Januvia] Allergy (Verified 05/12/23 20:52) Unknown insulin degludec [From Xultophy 100/3.6] Adverse Reaction (Mild, Verified 05/12/23 20:52) Nausea liraglutide [From Xultophy 100/3.6] Adverse Reaction (Mild, Verified 04/20/23 14:41) Nausea atorvastatin [From Lipitor] Adverse Reaction (Unknown, Verified 05/12/23 20:52) Unknown codeine Adverse Reaction (Unknown, Verified 05/12/23 20:52) Unknown tizanidine Adverse Reaction (Unknown, Verified 05/12/23 20:52) Unknown Procedures: - (ERCP) Type of Care/Length of Stay Estimated LOS: More Than 30 Days Type of Care Needed: [facility]/Assisted Living Rehab Potential: Fair Prognosis: Fair Additional Orders/Day of Discharge Day of Discharge: 06/10/23 Dietary and Speech Recommendations Dietitian Recommendations/Changes: Will liberalize diet to Regular w/ small portions d/t variable po intake Rec appetite stimulant to help encourage increased po intake at meals Follow Up Care Please Follow Up With: Doe Orr DO When: 6-8 weeks Discharge Plan Admission Admit Date/Time: 05/17/23 18:15 Primary Reason for Your Visit: Debility. Attending Provider: Senthil Ortiz Chi Primary Care Provider: Isra Rubalcava Instructions Additional Instructions / Restrictions: Discharge to [facility] 06/10/2023, [facility] PT/OT/ST. Discharge Orders/Prescriptions Prescriptions: New metoprolol succinate 50 mg Tablet Extended Release 24 Hr 50 mg PO DAILY 30 Days Qty: 30 0RF Continued alprazolam 0.5 mg tablet 0.5 mg PO 4X/DAY montelukast 10 mg tablet 10 mg PO DAILY hydrocodone-acetaminophen [[place]] 5-325 mg tablet 1 tab PO Q12H PRN (Reason: Pain 1-10 Or Fever) nitroglycerin [Nitrostat] 0.4 mg tablet, sublingual 0.4 mg sublingual Q5-15M PRN (Reason: chest pain) Qty: 25 3RF Rx Instructions: do not exceed 3 doses per episode topiramate 100 mg tablet 50 mg PO BID cholecalciferol (vitamin D3) 125 mcg (5,000 unit) capsule 125 mcg PO DAILY escitalopram oxalate [Lexapro] 10 mg tablet 10 mg PO DAILY trazodone 150 mg tablet 300 mg PO QHS ropinirole 1 mg tablet 2 mg PO BID acetaminophen [Tylenol Extra Strength] 500 mg tablet 1,000 mg PO Q4H PRN (Reason: pain) Eliquis 5 mg tablet 5 mg PO DAILY furosemide 20 mg tablet 20 mg PO DAILY tizanidine 4 mg capsule 4 mg PO Q8H loperamide [Anti-Diarrheal (loperamide)] 2 mg capsule 4 mg PO Q2H PRN (Reason: diarrhea) Rx Instructions: after first loose stool, 1 tablet after each subsequent loose stool but no more than 4 tablets in 24 hours insulin glargine-yfgn 100 unit/mL (3 mL) Insulin Pen 40 unit subcut QHS Qty: 15 0RF amlodipine 5 mg Tablet 5 mg PO DAILY Qty: 0 0RF losartan 100 mg Tablet 100 mg PO DAILY Qty: 1 0RF atorvastatin 40 mg tablet 40 mg PO QDAY Qty: 30 6RF Discontinued aspirin 81 mg tablet,delayed release (DR/EC) 81 mg PO QDAY metoprolol succinate 50 mg tablet extended release 24 hr 25 mg PO DAILY levofloxacin 750 mg tablet 750 mg PO DAILY Qty: 3 0RF No Action (DME) BP cuff See Rx Instructions .Route .MEDSUPPLY Qty: 1 0RF Hold Instructions: Ordered Rx Instructions: As directed Referrals / Follow Up: Isra Rubalcava MD [Primary Care Provider] - Disposition Disposition (needs filled in before D/C Order can be placed): Assisted Living (2) Fever Qualifiers: Fever type: unspecified Qualified Code(s): R50.9 - Fever, unspecified (12) Hyperlipidemia Qualifiers: Hyperlipidemia type: unspecified Qualified Code(s): E78.5 - Hyperlipidemia, unspecified (16) Diabetes mellitus Qualifiers: Qualified Code(s): Z79.4 - [facility] (current) use of insulin; Z79.4 - [facility] (current) use of insulin; Z79.4 - vision therapist (current) use of insulin; Z79.4 - vision therapist (current) use of insulin
[2023-06-07 21:27] LABS: Bedside Glucose 146 mg/dL (74-106)
[2023-06-07] MEDS: Atorvastatin Calcium 40 MG Tablet PO (21:32)
[2023-06-07] MEDS: traZODone 100 MG Tablet 150 MG PO (21:32)
[2023-06-07] MEDS: Mirtazapine 15 MG Tablet 7.5 MG PO (21:35)
[2023-06-07] MEDS: Loperamide 2 MG Capsule PO (21:41)
[2023-06-07] MEDS: Insulin Glargine-YFGN 100 UNIT/ML Pen 40 UNIT SC (21:45)
[2023-06-08] VITALS (8 sets, daily range): BP systolic 97–152; BP diastolic 35–65; PULSE 52–67; RESP 16; TEMP 36.4–36.5; O2SAT 96–98
[2023-06-08] MEDS: hydrALAZINE 50 MG Tablet PO ×3 (05:28→21:33)
[2023-06-08] MEDS: tiZANidine HCl 2 MG Tablet 4 MG PO ×3 (05:28→21:36)
[2023-06-08] MEDS: ALPRAZolam 0.25 MG Tablet PO ×3 (05:28→21:36)
[2023-06-08 05:57] LABS: Absolute Lymphocyte Count 6.05 X10^3/uL (0.83-4.51); Absolute Neutrophil Count 4.3 X10^3/uL (2.0-7.7); Basophil# 0.03 X10^3/uL; Basophil% 0.3 % (0-1); Eosinophil# 0.11 X10^3/uL; Hematocrit 40.2 % (37-47); Hemoglobin 13.4 g/dL (12.0-15.0); Lymphocyte # 6.05 X10^3/ul (0.83-4.51); Mean Corp Hgb Conc 33.3 g/dL (32-36); Mean Corpuscular Hgb 30.5 pg (27.0-32.0); Mean Corpuscular Volume 91.4 fL (81-99); Mean Platelet Vol. 9.4 fl (6.2-12.0); Monocyte# 0.49 X10^3/uL; Monocyte% 4.5 % (0-10); NRBC Flagged by Analyzer 0 % (0-5); POSITIVE DIFFERENTIAL YES; POSITIVE MORPHOLOGY YES; Platelet Count 374 K/mm3 (150-450); RBC Distribution Width CV 13.5 % (11.6-14.6); RBC Distribution Width SD 45.3 fl (35.1-43.9)
[2023-06-08 06:16] LABS: Differential Indicated SCAN CRITERIA MET
[2023-06-08 06:29] LABS: Anion Gap 7 (5-15); BUN 22 mg/dL (7-18); BUN/Creat Ratio 19.3 RATIO (10-20); Calcium,Total 9.5 mg/dL (8.5-10.1); Chloride 109 mmol/L (98-107); Creatinine, Serum 1.14 mg/dL (0.55-1.02); EST Glomerular Filtration Rate 49 mL/min (>60); Est Glom Filt Rate - Afr Amer 59 mL/min (>60); Estimated Creatinine Clearance 31.13 ml/min; Glucose 103 mg/dL (74-106); Potassium 3.5 mmol/L (3.5-5.1); Sodium Level 139 mmol/L (136-145)
[2023-06-08] MEDS: Acetaminophen 500 MG Tablet 1000 MG PO ×3 (06:30→21:36)
[2023-06-08 06:46] LABS: Bedside Glucose 117 mg/dL (74-106)
[2023-06-08] MEDS: Potassium Chloride Oral Tablet 20 MEQ PO (08:00)
[2023-06-08] MEDS: Lidocaine 5% Patch 2 PATCH TOPICAL (09:35)
[2023-06-08] MEDS: Losartan Potassium 100 MG Tablet PO (09:36)
[2023-06-08] MEDS: APIXABAN 5 MG TABLET PO ×2 (09:36→21:36)
[2023-06-08] MEDS: Escitalopram Oxalate 10 MG Tablet PO (09:37)
[2023-06-08] MEDS: Furosemide 20 MG Tablet PO (09:37)
[2023-06-08] MEDS: Pramipexole Di-HCl 1 MG Tablet PO ×2 (09:38→21:33)
[2023-06-08] MEDS: Montelukast 10 MG Tablet PO (09:38)
[2023-06-08] MEDS: amLODIPine 5 MG Tablet PO (09:38)
[2023-06-08] MEDS: Topiramate 50 MG Tablet PO ×2 (09:39→21:35)
[2023-06-08] MEDS: Cholecalciferol (Vit D3) 125 MCG CAPSULE (5,000 UNITS) PO (09:39)
[2023-06-08] MEDS: Metoprolol(XL)Succ 50 MG Tablet PO (09:40)
[2023-06-08] MEDS: Loperamide 2 MG Capsule PO (09:44)
[2023-06-08] MEDS: traZODone 100 MG Tablet 150 MG PO (21:34)
[2023-06-08] MEDS: Atorvastatin Calcium 40 MG Tablet PO (21:35)
[2023-06-08] MEDS: Mirtazapine 15 MG Tablet 7.5 MG PO (21:35)
[2023-06-08] MEDS: Insulin Glargine-YFGN 100 UNIT/ML Pen 40 UNIT SC (21:36)
[2023-06-08 21:39] LABS: Bedside Glucose 119 mg/dL (74-106)
[2023-06-09] MEDS: tiZANidine HCl 2 MG Tablet 4 MG PO ×3 (05:50→21:39)
[2023-06-09 05:51] VITALS: BP 149/50; PULSE 60
[2023-06-09] MEDS: ALPRAZolam 0.25 MG Tablet PO ×3 (05:51→21:38)
[2023-06-09] MEDS: hydrALAZINE 50 MG Tablet PO ×4 (05:51→21:39)
[2023-06-09] MEDS: Acetaminophen 500 MG Tablet 1000 MG PO ×3 (05:51→21:39)
[2023-06-09 06:39] LABS: Bedside Glucose 75 mg/dL (74-106)
[2023-06-09] MEDS: Cholecalciferol (Vit D3) 125 MCG CAPSULE (5,000 UNITS) PO (08:28)
[2023-06-09] MEDS: APIXABAN 5 MG TABLET PO ×2 (08:29→21:40)
[2023-06-09] MEDS: Lidocaine 5% Patch 2 PATCH TOPICAL (08:29)
[2023-06-09] MEDS: Escitalopram Oxalate 10 MG Tablet PO (08:29)
[2023-06-09] MEDS: Furosemide 20 MG Tablet PO (08:30)
[2023-06-09] MEDS: Pramipexole Di-HCl 1 MG Tablet PO ×2 (08:30→21:38)
[2023-06-09] MEDS: Potassium Chloride Oral Tablet 20 MEQ PO (08:30)
[2023-06-09] MEDS: Topiramate 50 MG Tablet PO ×2 (08:30→21:40)
[2023-06-09] MEDS: Montelukast 10 MG Tablet PO (08:31)
[2023-06-09 09:35] LABS: Bedside Glucose 167 mg/dL (74-106)
[2023-06-09 10:16] VITALS: BP 111/50; PULSE 56
[2023-06-09] MEDS: Losartan Potassium 100 MG Tablet PO (10:16)
[2023-06-09] MEDS: Metoprolol(XL)Succ 50 MG Tablet PO (10:16)
[2023-06-09] MEDS: amLODIPine 5 MG Tablet PO (10:17)
[2023-06-09] MEDS: HYDROcodone Bitartrate/Apap 5/325 Tablet PO (10:19)
[2023-06-09 12:20] VITALS: BP 131/45; PULSE 57; RESP 18; TEMP 36.6; O2SAT 97
[2023-06-09 12:27] VITALS: BP 131/45; PULSE 57
[2023-06-09 17:23] VITALS: BP 140/47; PULSE 48
[2023-06-09] MEDS: Mirtazapine 15 MG Tablet 7.5 MG PO (21:38)
[2023-06-09] MEDS: traZODone 100 MG Tablet 150 MG PO (21:38)
[2023-06-09 21:39] VITALS: BP 160/55; PULSE 65
[2023-06-09] MEDS: Atorvastatin Calcium 40 MG Tablet PO (21:39)
[2023-06-09 21:41] LABS: Bedside Glucose 156 mg/dL (74-106)
[2023-06-09] MEDS: Insulin Glargine-YFGN 100 UNIT/ML Pen 40 UNIT SC (22:13)
[2023-06-10] MEDS: ALPRAZolam 0.25 MG Tablet PO (05:38)
[2023-06-10] MEDS: Acetaminophen 500 MG Tablet 1000 MG PO (05:38)
[2023-06-10 05:39] VITALS: BP 157/46; PULSE 65
[2023-06-10] MEDS: hydrALAZINE 50 MG Tablet PO (05:39)
[2023-06-10] MEDS: tiZANidine HCl 2 MG Tablet 4 MG PO (05:39)
[2023-06-10 05:45] VITALS: PULSE 65; RESP 16; O2SAT 97
[2023-06-10 06:57] LABS: Bedside Glucose 107 mg/dL (74-106)
[2023-06-10] MEDS: Potassium Chloride Oral Tablet 20 MEQ PO (08:28)
[2023-06-10] MEDS: amLODIPine 5 MG Tablet PO (09:16)
[2023-06-10] MEDS: Cholecalciferol (Vit D3) 125 MCG CAPSULE (5,000 UNITS) PO (09:16)
[2023-06-10] MEDS: Losartan Potassium 100 MG Tablet PO (09:16)
[2023-06-10] MEDS: Pramipexole Di-HCl 1 MG Tablet PO (09:16)
[2023-06-10] MEDS: Montelukast 10 MG Tablet PO (09:16)
[2023-06-10] MEDS: APIXABAN 5 MG TABLET PO (09:16)
[2023-06-10] MEDS: Topiramate 50 MG Tablet PO (09:16)
[2023-06-10 09:17] VITALS: BP 123/45; PULSE 56
[2023-06-10] MEDS: Metoprolol(XL)Succ 50 MG Tablet PO (09:17)
[2023-06-10] MEDS: Escitalopram Oxalate 10 MG Tablet PO (09:17)
[2023-06-10] MEDS: Furosemide 20 MG Tablet PO (09:20)
[2023-06-10] MEDS: Lidocaine 5% Patch 2 PATCH TOPICAL (09:23)
--- NOTE | 2023-06-10 11:09 | CASEMGMT ---
Social Work BIMS and PHQ-9 Completed for MDS assessment. Regi Crow, FURNACE CHARGING MACHINE OPERATOR SLED MAKER
== END 2023-06-10 10:25 | disposition home health service (06) | DRG 949 ==
PROVIDERS: Admitting Provider Family Medicine Geriatric Medicine; PCP Family Medicine; Visit Provider Family Medicine Geriatric Medicine
DX: Z48.815 Encounter for surgical aftercare following surgery on the digestive system (principal); K80.30 Calculus of bile duct with cholangitis, unspecified, without obstruction; E11.9 Type 2 diabetes mellitus without complications; I48.0 Paroxysmal atrial fibrillation; G25.81 Restless legs syndrome; E66.01 Morbid (severe) obesity due to excess calories; Z79.4 Long term (current) use of insulin; I10 Essential (primary) hypertension; F32.A Depression, unspecified; E55.9 Vitamin D deficiency, unspecified; J30.9 Allergic rhinitis, unspecified; M62.838 Other muscle spasm; E78.5 Hyperlipidemia, unspecified; F41.9 Anxiety disorder, unspecified; I25.10 Atherosclerotic heart disease of native coronary artery without angina pectoris; G47.33 Obstructive sleep apnea (adult) (pediatric); K21.9 Gastro-esophageal reflux disease without esophagitis; Z79.82 Long term (current) use of aspirin; G47.00 Insomnia, unspecified; Z87.891 Personal history of nicotine dependence; N32.81 Overactive bladder; Z79.899 Other long term (current) drug therapy; Z68.35 Body mass index [BMI] 35.0-35.9, adult; Z79.01 Long term (current) use of anticoagulants; Z23 Encounter for immunization
CPT/HCPCS: 0134A; 36415; 80048; 81001; 82962; 85025; 87077; 87086; 87088; 87186; 87493; 87811; 91313; 92507; 92523; 93005; 97110; 97116; 97129; 97130; 97162; 97166; 97530; 97535; 97802; A4216

== ENCOUNTER 2023-08-14 11:51 | Observation (INO) | payer MEDICARE, SELFPAY ==
[2023-08-14 11:52] VITALS: BP 179/85; PULSE 132; RESP 34; TEMP 38.6; O2SAT 89
--- NOTE | 2023-08-14 11:59 | RAD_ITS ---
STUDY: X-RAY CHEST REASON FOR EXAM: Female, 83 years old. fever TECHNIQUE: Single AP portable view of the chest. COMPARISON: May 12, 2023 FINDINGS: No visualized consolidation or infiltrates. There are interstitial fibrotic changes of the lungs. There is no demonstrated pleural abnormality. Sternal cerclage wires and vascular clips are present from a prior sternotomy and coronary artery bypass graft procedure (CABG). Mild cardiomegaly. Normal mediastinum and omar. Normal visualized pulmonary arteries. There is atherosclerotic calcification of the aortic arch with tortuosity. There are diffuse degenerative changes of the visualized thoracic spine. Normal visualized ribs, clavicles, and shoulders. There is no demonstrated abnormality of the visualized soft tissue structures of the upper abdomen. RAD/Chest 1 View (Portable) IMPRESSION: Degenerative changes, as described above. No demonstrated acute cardiopulmonary process. Electronically Signed: Bernardino Bejarano MD at 15:59 EST ,
--- NOTE | 2023-08-14 12:00 | EKG12_ITS ---
Test Reason : Blood Pressure : / mmHG Vent. Rate : 127 BPM Atrial Rate : 000 BPM P-R Int : 000 ms QRS Dur : 080 ms QT Int : 380 ms P-R-T Axes : 000 067 053 degrees QTc Int : 552 ms Critical Test Result: Long QTc Sinus tachycardia Nonspecific ST abnormality Abnormal ECG Confirmed by VIJAYA ALY, CHARLI ([id number]), advertising editor DARLEEN MAN ([id number]) on 08/23/2023 2:07:42 PM Referred By: Confirmed By:CHARLI LILLY MD
[2023-08-14] MEDS: Acetaminophen 500 MG Tablet 1000 MG PO (12:10)
[2023-08-14] MEDS: 0.9% Normal Saline (1000mL) 1,000 ML 1000 ML IV (12:10)
[2023-08-14] MEDS: Ondansetron 4 MG/2 ML Vial IV (12:10)
[2023-08-14] MEDS: 0.9% Normal Saline (1000mL) 1,000 ML 150 ML IV (12:10)
[2023-08-14 12:15] LABS: Absolute Lymphocyte Count 0.89 X10^3/uL (0.83-4.51); Basophil# 0.04 X10^3/uL; Basophil% 0.3 % (0-1); Eosinophil# 0.02 X10^3/uL; Eosinophils% 0.2 % (0-5); Hematocrit 42.8 % (37-47); Hemoglobin 13.9 g/dL (12.0-15.0); Lymphocyte # 0.89 X10^3/ul (0.83-4.51); Lymphocyte % 7.1 % (19-41); Mean Corp Hgb Conc 32.5 g/dL (32-36); Mean Corpuscular Hgb 29.1 pg (27.0-32.0); Mean Corpuscular Volume 89.7 fL (81-99); Monocyte# 0.46 X10^3/uL; Monocyte% 3.7 % (0-10); NRBC Flagged by Analyzer 0 % (0-5); Neutrophil # 10.97 X10^3/uL (2.7-7.7); Neutrophil % 88.1 % (47-70); Platelet Count 294 K/mm3 (150-450); RBC Distribution Width CV 12.5 % (11.6-14.6); RBC Distribution Width SD 41.1 fl (35.1-43.9); Red Blood Count 4.77 M/mm3 (4.2-5.4); White Blood Count 12.5 K/mm3 (4.4-11.0)
[2023-08-14 12:22] LABS: International Normalized Ratio 1.3; Prothrombin Time (Protime)PT. 16.3 SECONDS (11.7-14.9)
[2023-08-14 12:23] LABS: Partial Thromboplast Time 28.7 Seconds (24.1-36.2)
[2023-08-14 12:47] LABS: Bacteria 0 SEEN /hpf (None Seen); Mucous, Urine 0 SEEN /hpf (<or=2+); Red Blood Cells-Urine 0 SEEN /hpf (0-5); Squamous Epithelial Cells - UA 0 SEEN /hpf (5-10); White Blood Cells 0 SEEN /hpf (0-5)
--- NOTE | 2023-08-14 12:48 | EX.ED.DYSGE1 ---
HPI History of Present Illness Chief Complaint: Fever Informant: patient, family and EMS Narrative Narrative: 83-year-old female from assisted living presenting to the emergency room with vomiting diarrhea and fever. Patient states she was not feeling well yesterday but cannot clarify. Reportedly had vomiting this morning. She states she has had a lot of diarrhea but does not know about how often she is going. EMS notes a fever. She has history of coronary artery disease, atrial fibrillation (on Coumadin), history of pulmonary embolism. Patient denies any urinary symptoms. She states that her whole body hurts. Family informed nursing that she is supposed to go to pain management because of her chronic pain. Patient has had prescriptions for [place] in the past and vitals between constipation and loose stools. Most recently she has had a couple laxatives. [facility] Medical History Anxiety and depression Atherosclerosis of coronary artery of [place] heart without angina pectoris Bradycardia Diabetes mellitus Dysphagia Essential hypertension Former tobacco use GERD (gastroesophageal reflux disease) History of left heart catheterization (LHC) (~01/20/21) Hyperlipidemia Immunosuppression due to drug therapy [employer] (current) use of anticoagulants Morbid obesity MARIVEL (obstructive sleep apnea) Osteoarthritis Paroxysmal atrial fibrillation Pulmonary embolism Stroke Home Medications atorvastatin 40 mg tablet 40 mg PO QDAY cholesterol #30 tabs 03/02/18 [Rx Last Taken 08/13/23] alprazolam 0.5 mg tablet 0.5 mg PO 4X/DAY anxiety 11/23/19 [History Last Taken 08/13/23] montelukast 10 mg tablet 10 mg PO DAILY allergies 12/29/20 [History Last Taken 08/13/23] nitroglycerin 0.4 mg sublingual tablet (Nitrostat) 0.4 mg sublingual Q5-15M PRN chest pain #25 tabs 10/21/21 [Rx Last Taken Unknown] BP cuff #1 ea 01/20/22 [Rx Last Taken Unknown] cholecalciferol (vitamin D3) 125 mcg (5,000 unit) capsule 125 mcg PO DAILY vitamin 01/20/22 [History Last Taken 08/13/23] escitalopram oxalate 10 mg tablet (Lexapro) 10 mg PO DAILY depression 01/20/22 [History Last Taken 08/13/23] topiramate 100 mg tablet 50 mg PO BID nerve pain 01/20/22 [History Last Taken 08/13/23] acetaminophen 500 mg tablet (Tylenol Extra Strength) 1,000 mg PO Q4H PRN pain 05/19/22 [History Last Taken Unknown] hydrocodone-acetaminophen 5-325mg 5mg-325mg ([place]) 1 tab PO Q8H PRN Pain 1-10 Or Fever 05/19/22 [History Last Taken 08/13/23] ropinirole 1 mg tablet 1 mg PO TID pain 05/19/22 [History Last Taken 08/13/23] trazodone 150 mg tablet 150 mg PO QHS sleep 05/19/22 [History Last Taken 08/13/23] apixaban 5 mg tablet (Eliquis) 5 mg PO Q12H blood thinner 04/20/23 [History Last Taken 08/13/23] loperamide 2 mg capsule (Anti-Diarrheal (loperamide)) 4 mg PO Q2H PRN diarrhea 05/16/23 [History Last Taken Unknown] metoprolol succinate 50 mg tablet,extended release 24 hr 50 mg PO DAILY 30 days #30 tabs 06/07/23 [Rx Last Taken 08/13/23] ciprofloxacin HCl 500 mg tablet 500 mg PO Q12H UTI 08/14/23 [History Last Taken 08/13/23] fesoterodine 4 mg tablet,extended release 24 hr 4 mg PO BID 08/14/23 [History Last Taken 08/13/23] insulin degludec 100 unit/mL (3 mL) subcutaneous pen (Tresiba FlexTouch U-100 insulin) 30 unit subcut DAILY 08/14/23 [History Last Taken 08/13/23] losartan 100 mg tablet 25 mg PO DAILY BP 08/14/23 [History Last Taken 08/13/23] vibegron 75 mg tablet (Gemtesa) 75 mg PO DAILY 08/14/23 [History Last Taken 08/13/23] Allergy/AdvReac Type Severity Reaction Status Date / Time insulin isophane (NPH) Allergy Severe heart burn Verified 08/14/23 12:00 Anesthetics - Amide Type - Allergy NEEDS Verified 08/14/23 12:00 Select A FOLLOW-UP Anesthetics - Tyra Type- Allergy NEEDS Verified 08/14/23 12:00 Parabens FOLLOW-UP latex Allergy Unknown Verified 08/14/23 12:00 promethazine [From Phenergan] Allergy PT UNSURE Verified 08/14/23 12:00 OF REACTION sitagliptin phosphate Allergy Unknown Verified 08/14/23 12:00 [From Januvia] insulin degludec AdvReac Mild Nausea Verified 08/14/23 12:00 [From Xultophy 100/3.6] liraglutide AdvReac Mild Nausea Verified 08/14/23 12:00 [From Xultophy 100/3.6] atorvastatin [From Lipitor] AdvReac Unknown Unknown Verified 08/14/23 12:00 codeine AdvReac Unknown Unknown Verified 08/14/23 12:00 tizanidine AdvReac Unknown Unknown Verified 08/14/23 12:00 Family History Father CAD (coronary artery disease) Mother CAD (coronary artery disease) Brother CAD (coronary artery disease) Surgical History H/O coronary artery bypass surgery (~06/01/17) History of bilateral cataract extraction History of cholecystectomy History of knee surgery History of total hysterectomy Social History household members: none housing: assisted living facility Smoking Status: Former smoker how long ago did patient quit smokin years ago second hand exposure: Yes alcohol intake: never substance use type: does not use caffeine: No ROS ROS ED Constitutional Constitutional ED: Reports chills and fever(s); Denies weight loss Eyes Eyes: Denies change in vision or diplopia ENT ENT ED: Reports sore throat; Denies ear pain or rhinorrhea Cardiovascular Cardiovascular: Reports chest pain; Denies orthopnea, palpitations or racing heartbeat Respiratory/Chest Respiratory/Chest: Denies cough, dyspnea or orthopnea Gastrointestinal Gastrointestinal: Reports diarrhea, nausea and vomiting; Denies abdominal pain Genitourinary Genitourinary ED: Denies dysuria, hematuria or urinary frequency Musculoskeletal Musculoskeletal: Reports arthralgias, back pain, myalgias and neck pain Integumentary Denies abscess or rash Neurologic Neurologic: Reports headache(s) and weakness Psychiatric Psychiatric: Denies anxiety, depression, suicidal ideation or suicidal thoughts Endocrine Endocrinology: Denies polydipsia, polyphagia or polyuria Allergic/Immunologic Allergic/Immunologic ED: Denies mouth swelling, tongue swelling or urticaria EXAM Physical Exam Const Vital Signs: 08/14/23 11:52 08/14/23 12:14 08/14/23 13:37 Temperature 101.5 F H 100.2 F H Temperature Source Oral Oral Pulse Rate 132 H 104 H Respiratory Rate 34 H 24 H Respiratory Effort Normal Non-Labored Blood Pressure 179/85 H 142/62 H Blood Pressure Mean 116 88 Pulse Ox 89 96 Oxygen Delivery Method Room Air Nasal Cannula Oxygen Flow Rate (L/min) 2 MDM MDM MDM Narrative Medical decision making narrative: Basic blood work showed a white count of 12.5. Glucose 209. Lactic acid normal is 1.8 normal liver enzymes and lipase. Urinalysis is not infected. COVID and influenza swabs were negative. My depend interpretation of the chest x-ray is no acute process. Patient received Tylenol which is effectively reduced her temperature. Heart rate respiratory rate are within normal limits now. Blood pressure has been stable. IV fluid Zofran. She is now sipping on water. I updated family and the patient regarding her labs. We will bring her in under observational status. History & Record Review Discussion w/independent historian: EMS personnel, Patient and Family Lab Data Attestation: I reviewed the patient's lab results. Labs: Laboratory Results - last 24 hr 08/14/23 08/14/23 12:05 12:41 WBC 12.5 H RBC 4.77 Hgb 13.9 Hct 42.8 MCV 89.7 MCH 29.1 MCHC 32.5 RDW Std Deviation 41.1 RDW Coeff of Sky 12.5 Plt Count 294 MPV 10.0 Immature Gran % (Auto) 0.600 Neut % (Auto) 88.1 H Lymph % (Auto) 7.1 L [place] % (Auto) 3.7 Eos % (Auto) 0.2 Baso % (Auto) 0.3 Absolute Neuts (auto) 11.0 H Absolute Lymphs (auto) 0.89 Nucleated RBC % 0 PT 16.3 H INR 1.3 APTT 28.7 Sodium 138 Potassium 3.5 Chloride 105 Carbon Dioxide 27.0 Anion Gap 6 BUN 11 Creatinine 0.98 Est GFR (MDRD) Af Amer 70 Est GFR (MDRD) Non-Af 58 L BUN/Creatinine Ratio 11.2 Glucose 209 H Lactic Acid 1.8 Calcium 9.2 Total Bilirubin 0.50 Direct Bilirubin 0.07 AST 22 ALT 14 Alkaline Phosphatase 98 Total Protein 7.6 Albumin 2.8 L Globulin 4.8 H Lipase 17 Urine Color Yellow Urine Clarity Clear Urine pH 6.0 Ur Specific [place] 1.020 Urine Protein 30 H Urine Glucose (UA) 100 H Urine Ketones 5 H Urine Occult Blood 25 H Urine Nitrite Negative Urine Bilirubin Negative Urine Urobilinogen Normal Ur Leukocyte Esterase Negative Urine RBC 0 SEEN Urine WBC 0 SEEN Ur Squamous Epith Cells 0 SEEN Urine Bacteria 0 SEEN Urine Mucus 0 SEEN EKG Initial EKG: Attestation: I personally reviewed and interpreted this EKG as follows: Comments: EKG shows a sinus tachycardia with a ventricular rate of 127 bpm. Discharge Plan Dx/Rx/DC Orders Clinical Impression: Gastroenteritis, Acute febrile illness Disposition Disposition: [facility]
[2023-08-14 12:49] LABS: Color, Urine Yellow (Yellow); Glucose, Dipstick 100 mg/dl (Normal); Ketone-Dipstick 5 mg/dl (Negative); Leukocyte Esterase-Dipstick Negative /ul (Negative); Nitrite-Dipstick Negative (Negative); Occult Blood-Urine 25 /ul (Negative); Protein-Dipstick 30 mg/dl (Negative); Urine Bilirubin Dipstick Negative (Negative); Urine Clarity Clear (Clear); Urine Urobilinogen Normal (Normal)
[2023-08-14 12:54] LABS: AST(SGOT) 22 U/L (15-37); Alanine Aminotransfer ALT/SGPT 14 U/L (13-56); Albumin, Serum 2.8 g/dL (3.2-5.0); Alkaline Phosphatase 98 U/L (45-117); Anion Gap 6 (5-15); BUN 11 mg/dL (7-18); BUN/Creat Ratio 11.2 RATIO (10-20); Bilirubin, Direct 0.07 mg/dL (0.00-0.30); Calcium,Total 9.2 mg/dL (8.5-10.1); Chloride 105 mmol/L (98-107); Creatinine, Serum 0.98 mg/dL (0.55-1.02); EST Glomerular Filtration Rate 58 mL/min (>60); Est Glom Filt Rate - Afr Amer 70 mL/min (>60); Globulin 4.8 g/dL (2.2-4.2); Glucose 209 mg/dL (74-106); Lactic Acid 1.8 mmol/L (0.4-1.9); Lipase 17 U/L (13-75); Potassium 3.5 mmol/L (3.5-5.1); Protein, Total 7.6 g/dL (6.4-8.2); Sodium Level 138 mmol/L (136-145)
[2023-08-14 13:37] VITALS: BP 142/62; PULSE 104; RESP 24; TEMP 37.9; O2SAT 96
--- NOTE | 2023-08-14 14:58 | HP.PCM.HOS_ITS ---
HPI - General General Date of Admission: 08/14/23 HPI Narrative FRANK GARCÍA, is a 83 F who presents to the hospital from the assisted living with nausea, vomiting, and diarrhea. Is unclear if the diarrhea is related as she has chronic constipation issues secondary to narcotic use and has been using laxatives to assist. Symptoms started over the last day or 2 where she is just not feeling well, she does complain of diffuse abdominal pain though physical exam does not elicit any abdominal pain. White count is little bit elevated and she was recently treated for UTI with Cipro, UA is unremarkable from an infectious standpoint. She does have a history of C. difficile so if diarrhea continues may need to test. She was given fluids in the ED, renal function stable. [facility] Medical History Anxiety and depression Atherosclerosis of coronary artery of [place] heart without angina pectoris Bradycardia Diabetes mellitus Dysphagia Essential hypertension Former tobacco use GERD (gastroesophageal reflux disease) History of left heart catheterization (LHC) (~01/20/21) Hyperlipidemia Immunosuppression due to drug therapy 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 Morbid obesity MARIVEL (obstructive sleep apnea) Osteoarthritis Paroxysmal atrial fibrillation Pulmonary embolism Stroke Home Medications atorvastatin 40 mg tablet 40 mg PO QDAY cholesterol #30 tabs 03/02/18 [Rx Last Taken 08/13/23] alprazolam 0.5 mg tablet 0.5 mg PO 4X/DAY anxiety 11/23/19 [History Last Taken 08/13/23] montelukast 10 mg tablet 10 mg PO DAILY allergies 12/29/20 [History Last Taken 08/13/23] nitroglycerin 0.4 mg sublingual tablet (Nitrostat) 0.4 mg sublingual Q5-15M PRN chest pain #25 tabs 10/21/21 [Rx Last Taken Unknown] BP cuff #1 ea 01/20/22 [Rx Last Taken Unknown] cholecalciferol (vitamin D3) 125 mcg (5,000 unit) capsule 125 mcg PO DAILY vi tamin 01/20/22 [History Last Taken 08/13/23] escitalopram oxalate 10 mg tablet (Lexapro) 10 mg PO DAILY depression 01/20/22 [History Last Taken 08/13/23] topiramate 100 mg tablet 50 mg PO BID nerve pain 01/20/22 [History Last Taken 08/13/23] acetaminophen 500 mg tablet (Tylenol Extra Strength) 1,000 mg PO Q4H PRN pain 05/19/22 [History Last Taken Unknown] hydrocodone-acetaminophen 5-325mg 5mg-325mg ([place]) 1 tab PO Q8H PRN Pain 1-10 Or Fever 05/19/22 [History Last Taken 08/13/23] ropinirole 1 mg tablet 1 mg PO TID pain 05/19/22 [History Last Taken 08/13/23] trazodone 150 mg tablet 150 mg PO QHS sleep 05/19/22 [History Last Taken 08/13/23] apixaban 5 mg tablet (Eliquis) 5 mg PO Q12H blood thinner 04/20/23 [History Last Taken 08/13/23] loperamide 2 mg capsule (Anti-Diarrheal (loperamide)) 4 mg PO Q2H PRN diarrhea 05/16/23 [History Last Taken Unknown] metoprolol succinate 50 mg tablet,extended release 24 hr 50 mg PO DAILY 30 days #30 tabs 06/07/23 [Rx Last Taken 08/13/23] ciprofloxacin HCl 500 mg tablet 500 mg PO Q12H UTI 08/14/23 [History Last Taken 08/13/23] fesoterodine 4 mg tablet,extended release 24 hr 4 mg PO BID 08/14/23 [History Last Taken 08/13/23] insulin degludec 100 unit/mL (3 mL) subcutaneous pen (Tresiba FlexTouch U-100 insulin) 30 unit subcut DAILY 08/14/23 [History Last Taken 08/13/23] losartan 100 mg tablet 25 mg PO DAILY BP 08/14/23 [History Last Taken 08/13/23] vibegron 75 mg tablet (Gemtesa) 75 mg PO DAILY 08/14/23 [History Last Taken 08/13/23] Allergy/AdvReac Type Severity Reaction Status Date / Time insulin isophane (NPH) Allergy Severe heart burn Verified 08/14/23 12:00 Anesthetics - Amide Type - Allergy NEEDS Verified 08/14/23 12:00 Select A FOLLOW-UP Anesthetics - Tyra Type- Allergy NEEDS Verified 08/14/23 12:00 Parabens FOLLOW-UP latex Allergy Unknown Verified 08/14/23 12:00 promethazine [From Phenergan] Allergy PT UNSURE Verified 08/14/23 12:00 OF REACTION sitagliptin phosphate Allergy Unknown Verified 08/14/23 12:00 [From Januvia] insulin degludec AdvReac Mild Nausea Verified 08/14/23 12:00 [From Xultophy 100/3.6] liraglutide AdvReac Mild Nausea Verified 08/14/23 12:00 [From Xultophy 100/3.6] atorvastatin [From Lipitor] AdvReac Unknown Unknown Verified 08/14/23 12:00 codeine AdvReac Unknown Unknown Verified 08/14/23 12:00 tizanidine AdvReac Unknown Unknown Verified 08/14/23 12:00 Family History Father CAD (coronary artery disease) Mother CAD (coronary artery disease) Brother CAD (coronary artery disease) Surgical History H/O coronary artery bypass surgery (~06/01/17) History of bilateral cataract extraction History of cholecystectomy History of knee surgery History of total hysterectomy Social History household members: none housing: assisted living facility Smoking Status: Former smoker how long ago did patient quit smokin years ago second hand exposure: Yes alcohol intake: never substance use type: does not use caffeine: No ROS Constitutional Constitutional: Reports fatigue and weakness; Denies chills, fever(s) or malaise Eyes Eyes: Denies blurry vision ENT HEENT: Denies headache(s) or nasal discharge Cardiovascular Cardiovascular: Denies chest pain, dyspnea on exertion or syncope Respiratory/Chest Respiratory/Chest: Denies cough, shortness of breath at rest or shortness of breath with exertion Gastrointestinal Gastrointestinal: Reports abdominal pain, diarrhea, nausea and vomiting; Denies constipation Genitourinary Genitourinary: Denies dysuria Neurologic Neurologic: Denies focal weakness, numbness or tremor(s) Psychiatric Psychiatric: Denies anxiety or depression Vital Signs Vital Signs Vital Signs: 08/14/23 11:52 08/14/23 12:14 08/14/23 13:37 Temperature 101.5 F H 100.2 F H Temperature Source Oral Oral Pulse Rate 132 H 104 H Respiratory Rate 34 H 24 H Respiratory Effort Normal Non-Labored Blood Pressure 179/85 H 142/62 H Blood Pressure Mean 116 88 Pulse Ox 89 96 Oxygen Delivery Method Room Air Nasal Cannula Oxygen Flow Rate (L/min) 2 Physical Exam Narrative General: Alert, Oriented x3, Cooperative, No apparent distress HEENT: Atraumatic, PERRLA, EOMI, Normocephalic Oral: Moist Mucosa Neck: Supple, No JVD Lungs: Diminished, Normal air movement, No rhonchi, No wheeze, No rales, crackles Cardiovascular: Regular rate, Regular Rhythm, Normal S1, Normal S2, No murmurs Abdomen: Soft, Non Tender, Non-Distended, No Hepato-splenomegaly Extremities: No edema, Capillary Refill Less than 3 Seconds Skin: No rashes, No breakdown Musculoskeletal: No Tenderness to Palpation of Joints or Extremities Neurological: Moves all extremities, Sensory exam intact to light touch and pain Psych/Mental Status: Normal Affect, Appropriate Results Lab / Micro Data 08/14/23 12:05 08/14/23 12:05 Labs: Laboratory Results - last 24 hr 08/14/23 12:05: WBC 12.5 H, RBC 4.77, Hgb 13.9, Hct 42.8, MCV 89.7, MCH 29.1, MCHC 32.5, RDW Std Deviation 41.1, RDW Coeff of Sky 12.5, Plt Count 294, MPV 10.0, Immature Gran % (Auto) 0.600, Neut % (Auto) 88.1 H, Lymph % (Auto) 7.1 L, [place] % (Auto) 3.7, Eos % (Auto) 0.2, Baso % (Auto) 0.3, Absolute Neuts (auto) 11.0 H, Absolute Lymphs (auto) 0.89, Nucleated RBC % 0, PT 16.3 H, INR 1.3, APTT 28.7, Sodium 138, Potassium 3.5, Chloride 105, Carbon Dioxide 27.0, Anion Gap 6, BUN 11, Creatinine 0.98, Est GFR (MDRD) Af Amer 70, Est GFR (MDRD) Non-Af 58 L, BUN/Creatinine Ratio 11.2, Glucose 209 H, Lactic Acid 1.8, Calcium 9.2, Total Bilirubin 0.50, Direct Bilirubin 0.07, AST 22, ALT 14, Alkaline Phosphatase 98, Total Protein 7.6, Albumin 2.8 L, Globulin 4.8 H, Lipase 17 08/14/23 12:41: Urine Color Yellow, Urine Clarity Clear, Urine pH 6.0, Ur Specific [place] 1.020, Urine Protein 30 H, Urine Glucose (UA) 100 H, Urine Ketones 5 H, Urine Occult Blood 25 H, Urine Nitrite Negative, Urine Bilirubin Negative, Urine Urobilinogen Normal, Ur Leukocyte Esterase Negative, Urine RBC 0 SEEN, Urine WBC 0 SEEN, Ur Squamous Epith Cells 0 SEEN, Urine Bacteria 0 SEEN, Urine Mucus 0 SEEN Micro: Microbiology 08/14/23 12:20 Nasal Secretion SARS-CoV-2 & FLU Antigen (Rapid) - Final Assessment & Plan Assessment/Plan (1) Gastroenteritis: PLAN: Plan 1. Gastroenteritis with hypoxia ? We will obtain enteric pathogen panel ? Continue with gentle IV fluids we will monitor her crackles and her oxygen requirements ? PT/OT with discharge planning with case management SNF versus back to assisted living ? UA does not show an infection and chest x-ray is unremarkable 2. HTN/HLD/A-fib ? Blood pressures are stable ? Continue with her home medications ? Continue with her home Lipitor ? We will monitor and make adjustments as necessary ? Continue with Lakeisha, she also has a history of DVT/PE 3. DM2 ? We will decrease her insulin dosing by half ? Accu-Cheks ACHS ? Sliding scale insulin ? We will monitor and make adjustments as necessary 4. Anxiety/depression/chronic pain ? Stable ? Continue with her home medications DVT: Lakeisha 75 minutes was spent on direct patient care, including documentation as well as chart review and collaboration with colleagues Charges/Coding Visit Charges Inpatient E&M: 82843 Init Hosp L3
[2023-08-14 15:20] VITALS: BP 142/54; PULSE 85; RESP 16; O2SAT 97
[2023-08-14 16:00] VITALS: BP 122/51; PULSE 73; RESP 18; TEMP 36.6; O2SAT 96
[2023-08-14 16:11] VITALS: PULSE 73; RESP 18; O2SAT 96; BMI 34.9
[2023-08-14] MEDS: 0.9% Normal Saline (1000mL) 1,000 ML 75 ML IV (17:24)
[2023-08-14] MEDS: ALPRAZolam 0.5 MG Tablet PO ×2 (18:25→21:26)
[2023-08-14] MEDS: Insulin Lispro 100 UNIT/ML INSULN.PEN SC ×2 (18:30→21:42)
[2023-08-14 18:46] LABS: Bedside Glucose 180 mg/dL (74-106)
[2023-08-14 20:30] VITALS: BP 148/53; PULSE 69; RESP 18; TEMP 37.2; O2SAT 99
[2023-08-14] MEDS: Pramipexole Di-HCl 0.5 MG Tablet PO (21:26)
[2023-08-14] MEDS: Topiramate 50 MG Tablet PO (21:26)
[2023-08-14] MEDS: APIXABAN 5 MG TABLET PO (21:26)
[2023-08-14] MEDS: traZODone 50 MG Tablet 150 MG PO (21:26)
[2023-08-14 22:20] LABS: Bedside Glucose 156 mg/dL (74-106)
[2023-08-15 05:00] VITALS: BP 174/71; PULSE 80; RESP 18; TEMP 36.6; O2SAT 95
[2023-08-15] MEDS: Pramipexole Di-HCl 0.5 MG Tablet PO (05:07)
[2023-08-15] MEDS: Miconazole Nitrate 43 GM Bottle 1 APPLIC TOPICAL (05:07)
[2023-08-15] MEDS: HYDROcodone Bitartrate/Apap 5/325 Tablet PO (05:08)
[2023-08-15 05:23] LABS: Absolute Lymphocyte Count 2.44 X10^3/uL (0.83-4.51); Basophil# 0.03 X10^3/uL; Basophil% 0.3 % (0-1); Eosinophil# 0.12 X10^3/uL; Eosinophils% 1.2 % (0-5); Hematocrit 33.7 % (37-47); Hemoglobin 10.5 g/dL (12.0-15.0); Lymphocyte # 2.44 X10^3/ul (0.83-4.51); Lymphocyte % 24.2 % (19-41); Mean Corp Hgb Conc 31.2 g/dL (32-36); Mean Corpuscular Hgb 29.1 pg (27.0-32.0); Mean Corpuscular Volume 93.4 fL (81-99); Mean Platelet Vol. 9.6 fl (6.2-12.0); Monocyte# 0.48 X10^3/uL; Monocyte% 4.8 % (0-10); NRBC Flagged by Analyzer 0 % (0-5); Neutrophil # 7.01 X10^3/uL (2.7-7.7); Neutrophil % 69.3 % (47-70); Platelet Count 241 K/mm3 (150-450); RBC Distribution Width CV 12.9 % (11.6-14.6); RBC Distribution Width SD 43.9 fl (35.1-43.9); Red Blood Count 3.61 M/mm3 (4.2-5.4); White Blood Count 10.1 K/mm3 (4.4-11.0)
[2023-08-15 05:45] LABS: Anion Gap 2 (5-15); BUN 11 mg/dL (7-18); BUN/Creat Ratio 12.9 RATIO (10-20); Calcium,Total 8.5 mg/dL (8.5-10.1); Chloride 113 mmol/L (98-107); Creatinine, Serum 0.86 mg/dL (0.55-1.02); EST Glomerular Filtration Rate 68 mL/min (>60); Est Glom Filt Rate - Afr Amer 82 mL/min (>60); Estimated Creatinine Clearance 40.58 ml/min; Glucose 91 mg/dL (74-106); Potassium 3.5 mmol/L (3.5-5.1); Sodium Level 144 mmol/L (136-145)
[2023-08-15 07:44] VITALS: BP 141/48; PULSE 55; RESP 16; TEMP 36.5; O2SAT 98
[2023-08-15 08:07] VITALS: O2SAT 98
[2023-08-15 08:09] VITALS: O2SAT 96
[2023-08-15] MEDS: Aspirin E.C. 81 MG Tablet PO (08:13)
--- NOTE | 2023-08-15 08:25 | PN.HOSP_ITS ---
Reason for Visit Reason for Visit: Diagnoses Noninfective gastroenteritis and colitis, unspecified (08/14/23) Subjective Subjective Feels much better. Has been having abdominal bloating with nausea and dry heaves for years. Tolerates oats and potatoes. Never tried to alternate her diet. Objective Data Objective Data Vital Signs: Vital Signs Temp Pulse Resp BP Pulse Ox O2 Del Method O2 Flow Rate 36.5 C L 55 L 16 141/48 H 96 Room Air 2 08/15/23 07:44 08/15/23 07:44 08/15/23 07:44 08/15/23 07:44 08/15/23 08:09 08/15/23 08:09 08/15/23 05:00 Oxygen Flow Rate (L/min) 2 Oxygen Delivery Method Room Air Weight: 86.183 kg Body Mass Index (BMI) 34.9 Intake & Output: Intake and Output for Last 24 Hours 08/13/23 08/14/23 08/15/23 23:59 23:59 23:59 Intake Total 2400 / 2600 450 / 450 Balance 2400 / 2600 450 / 450 Lab / Micro Data 08/15/23 04:56 08/15/23 04:56 Labs: Laboratory Results - last 24 hr 08/14/23 12:05: WBC 12.5 H, RBC 4.77, Hgb 13.9, Hct 42.8, MCV 89.7, MCH 29.1, MCHC 32.5, RDW Std Deviation 41.1, RDW Coeff of Sky 12.5, Plt Count 294, MPV 10.0, Immature Gran % (Auto) 0.600, Neut % (Auto) 88.1 H, Lymph % (Auto) 7.1 L, [place] % (Auto) 3.7, Eos % (Auto) 0.2, Baso % (Auto) 0.3, Absolute Neuts (auto) 11.0 H, Absolute Lymphs (auto) 0.89, Nucleated RBC % 0, PT 16.3 H, INR 1.3, APTT 28.7, Sodium 138, Potassium 3.5, Chloride 105, Carbon Dioxide 27.0, Anion Gap 6, BUN 11, Creatinine 0.98, Est GFR (MDRD) Af Amer 70, Est GFR (MDRD) Non-Af 58 L, BUN/Creatinine Ratio 11.2, Glucose 209 H, Lactic Acid 1.8, Calcium 9.2, Total Bilirubin 0.50, Direct Bilirubin 0.07, AST 22, ALT 14, Alkaline Phosphatase 98, Total Protein 7.6, Albumin 2.8 L, Globulin 4.8 H, Lipase 17 08/14/23 12:41: Urine Color Yellow, Urine Clarity Clear, Urine pH 6.0, Ur Specific [place] 1.020, Urine Protein 30 H, Urine Glucose (UA) 100 H, Urine Ketones 5 H, Urine Occult Blood 25 H, Urine Nitrite Negative, Urine Bilirubin Negative, Urine Urobilinogen Normal, Ur Leukocyte Esterase Negative, Urine RBC 0 SEEN, Urine WBC 0 SEEN, Ur Squamous Epith Cells 0 SEEN, Urine Bacteria 0 SEEN, Urine Mucus 0 SEEN 08/14/23 18:09: POC Glucose 180 H 08/14/23 21:41: POC Glucose 156 H 08/15/23 04:56: WBC 10.1, RBC 3.61 L, Hgb 10.5 L, Hct 33.7 L, MCV 93.4, MCH 29.1, MCHC 31.2 L, RDW Std Deviation 43.9, RDW Coeff of Sky 12.9, Plt Count 241, MPV 9.6, Immature Gran % (Auto) 0.200, Neut % (Auto) 69.3, Lymph % (Auto) 24.2, [place] % (Auto) 4.8, Eos % (Auto) 1.2, Baso % (Auto) 0.3, Absolute Neuts (auto) 7.0, Absolute Lymphs (auto) 2.44, Nucleated RBC % 0, Sodium 144, Potassium 3.5, Chloride 113 H, Carbon Dioxide 29.0, Anion Gap 2 L, BUN 11, Creatinine 0.86, Estim Creat Clear Calc 40.58, Est GFR (MDRD) Af Amer 82, Est GFR (MDRD) Non-Af 68, BUN/Creatinine Ratio 12.9, Glucose 91, Calcium 8.5 Micro: Microbiology 08/14/23 12:20 Nasal Secretion SARS-CoV-2 & FLU Antigen (Rapid) - Final Radiography Diagnostic Testing: Radiology Impression Chest X-Ray 08/14/23 11:59 IMPRESSION: Degenerative changes, as described above. No demonstrated acute cardiopulmonary process. Electronically Signed: Bernardino Bejarano MD at 15:59 EST , Physical Exam Const alert and no apparent distress Assessment & Plan Assessment/Plan (1) Gastroenteritis: PLAN: Chronic. intermittent. Patient has never tried dietary modifications including gluten-free, lactose-free, etc. With her bloating, as stated that would be more concerned about this being possibly a gluten intolerance. I recommended trying a gluten-free diet for 1 month as a trial, if she has ongoing symptoms, then this would likely not be gluten intolerance. PLAN: Plan HTN/HLD/A-fib/VTE ? Blood pressures are stable ? Continue with her home medications ? Continue with her home Lipitor ? We will monitor and make adjustments as necessary ? Continue with Eliquis, she also has a history of DVT/PE DM2 ? We will decrease her insulin dosing by half ? Accu-Cheks ACHS ? Sliding scale insulin ? We will monitor and make adjustments as necessary Anxiety/depression/chronic pain ? Stable ? Continue with her home medications DVT: not indicated as already on apixaban.
[2023-08-15] MEDS: ALPRAZolam 0.5 MG Tablet PO (11:23)
[2023-08-15] MEDS: Topiramate 50 MG Tablet PO (11:24)
[2023-08-15] MEDS: Furosemide 20 MG Tablet PO (11:25)
[2023-08-15] MEDS: Escitalopram Oxalate 10 MG Tablet PO (11:25)
[2023-08-15] MEDS: Losartan Potassium 25 MG Tablet PO (11:25)
[2023-08-15 11:27] VITALS: PULSE 55
[2023-08-15] MEDS: APIXABAN 5 MG TABLET PO (11:27)
[2023-08-15] MEDS: Atorvastatin Calcium 40 MG Tablet PO (11:28)
[2023-08-15] MEDS: Cholecalciferol (Vit D3) 125 MCG CAPSULE (5,000 UNITS) PO (11:29)
[2023-08-15] MEDS: Insulin Glargine-YFGN 100 UNIT/ML Pen 15 UNIT SC (11:32)
[2023-08-15] MEDS: Montelukast 10 MG Tablet PO (11:37)
[2023-08-15] MEDS: Insulin Lispro 100 UNIT/ML INSULN.PEN SC (11:38)
--- NOTE | 2023-08-15 12:13 | DS.PCM_ITS ---
Providers Date of Admission: 08/14/23 Primary Care Physician: Dr. Isra Rubalcava MD Reason For Visit: GASTROENTERITIS, ACUTE FEBRILE ILLNESS Diagnosis Discharge Diagnosis (1) Gastroenteritis: Status: Acute Code(s): K52.9 - Noninfective gastroenteritis and colitis, unspecified Plan: Chronic. intermittent. Patient has never tried dietary modifications including gluten-free, lactose-free, etc. With her bloating, as stated that would be more concerned about this being possibly a gluten intolerance. I recommended trying a gluten-free diet for 1 month as a trial, if she has ongoing symptoms, then this would likely not be gluten intolerance. Plan HTN/HLD/A-fib/VTE ? Blood pressures are stable ? Continue with her home medications ? Continue with her home Lipitor ? We will monitor and make adjustments as necessary ? Continue with [place], she also has a history of DVT/PE DM2 ? We will decrease her insulin dosing by half ? Accu-Cheks ACHS ? Sliding scale insulin ? We will monitor and make adjustments as necessary Anxiety/depression/chronic pain ? Stable ? Continue with her home medications DVT: not indicated as already on apixaban. Medications at Discharge Home Medications atorvastatin 40 mg tablet 40 mg PO QDAY cholesterol #30 tabs 03/02/18 alprazolam 0.5 mg tablet 0.5 mg PO 4X/DAY anxiety 11/23/19 montelukast 10 mg tablet 10 mg PO DAILY allergies 12/29/20 nitroglycerin 0.4 mg sublingual tablet (Nitrostat) 0.4 mg sublingual Q5-15M PRN chest pain #25 tabs 10/21/21 BP cuff #1 ea 01/20/22 cholecalciferol (vitamin D3) 125 mcg (5,000 unit) capsule 125 mcg PO DAILY vitamin 01/20/22 escitalopram oxalate 10 mg tablet (Lexapro) 10 mg PO DAILY depression 01/20/22 topiramate 100 mg tablet 50 mg PO BID nerve pain 01/20/22 acetaminophen 500 mg tablet (Tylenol Extra Strength) 1,000 mg PO Q4H PRN pain 05/19/22 hydrocodone-acetaminophen 5-325mg 5mg-325mg ([place]) 1 tab PO Q12H PRN Pain 1-10 Or Fever 05/19/22 ropinirole 1 mg tablet 2 mg PO BID pain 08/17/22 trazodone 150 mg tablet 300 mg PO QHS sleep 05/19/22 apixaban 5 mg tablet (Eliquis) 5 mg PO Q12H blood thinner 04/20/23 loperamide 2 mg capsule (Anti-Diarrheal (loperamide)) 4 mg PO Q2H PRN diarrhea 05/16/23 aspirin 81 mg tablet,delayed release (Enteric Coated Aspirin) 81 mg PO DAILY 08/14/23 fesoterodine 4 mg tablet,extended release 24 hr 4 mg PO BID 08/14/23 furosemide 20 mg tablet (Lasix) 20 mg PO DAILY 08/14/23 guselkumab 100 mg/mL subcutaneous syringe (Tremfya) 100 mg subcut .monthly 08/14/23 insulin degludec 100 unit/mL (3 mL) subcutaneous pen (Tresiba FlexTouch U-100 insulin) 30 unit subcut DAILY 08/14/23 losartan 100 mg tablet 25 mg PO DAILY BP 08/14/23 metoprolol succinate 50 mg tablet,extended release 24 hr 25 mg PO DAILY 08/14/23 tizanidine 4 mg capsule 4 mg PO Q8H 08/14/23 vibegron 75 mg tablet (Gemtesa) 75 mg PO DAILY 08/14/23 ondansetron 8 mg disintegrating tablet 8 mg PO Q8H PRN nausea and vomiting #20 tabs 08/15/23 Hospital Course Operations None Procedures None Summary of Care Provided Minutes Spent on Discharge: 35 Physical Exam Const alert and no apparent distress Weight / BMI Weight Weight: 86.183 kg Body Mass Index (BMI) 34.9 ABG / Lab / Microbiology Data 08/15/23 04:56 08/15/23 04:56 Laboratory: Laboratory Results - last 24 hr 08/14/23 12:05: WBC 12.5 H, RBC 4.77, Hgb 13.9, Hct 42.8, MCV 89.7, MCH 29.1, MCHC 32.5, RDW Std Deviation 41.1, RDW Coeff of Sky 12.5, Plt Count 294, MPV 10.0, Immature Gran % (Auto) 0.600, Neut % (Auto) 88.1 H, Lymph % (Auto) 7.1 L, [place] % (Auto) 3.7, Eos % (Auto) 0.2, Baso % (Auto) 0.3, Absolute Neuts (auto) 11.0 H, Absolute Lymphs (auto) 0.89, Nucleated RBC % 0, PT 16.3 H, INR 1.3, APTT 28.7, Sodium 138, Potassium 3.5, Chloride 105, Carbon Dioxide 27.0, Anion Gap 6, BUN 11, Creatinine 0.98, Est GFR (MDRD) Af Amer 70, Est GFR (MDRD) Non-Af 58 L, BUN/Creatinine Ratio 11.2, Glucose 209 H, Lactic Acid 1.8, Calcium 9.2, Total Bilirubin 0.50, Direct Bilirubin 0.07, AST 22, ALT 14, Alkaline Phosphatase 98, Total Protein 7.6, Albumin 2.8 L, Globulin 4.8 H, Lipase 17 08/14/23 12:41: Urine Color Yellow, Urine Clarity Clear, Urine pH 6.0, Ur Specific [place] 1.020, Urine Protein 30 H, Urine Glucose (UA) 100 H, Urine Ketones 5 H, Urine Occult Blood 25 H, Urine Nitrite Negative, Urine Bilirubin Negative, Urine Urobilinogen Normal, Ur Leukocyte Esterase Negative, Urine RBC 0 SEEN, Urine WBC 0 SEEN, Ur Squamous Epith Cells 0 SEEN, Urine Bacteria 0 SEEN, Urine Mucus 0 SEEN 08/14/23 18:09: POC Glucose 180 H 08/14/23 21:41: POC Glucose 156 H 08/15/23 04:56: WBC 10.1, RBC 3.61 L, Hgb 10.5 L, Hct 33.7 L, MCV 93.4, MCH 29.1, MCHC 31.2 L, RDW Std Deviation 43.9, RDW Coeff of Sky 12.9, Plt Count 241, MPV 9.6, Immature Gran % (Auto) 0.200, Neut % (Auto) 69.3, Lymph % (Auto) 24.2, [place] % (Auto) 4.8, Eos % (Auto) 1.2, Baso % (Auto) 0.3, Absolute Neuts (auto) 7.0, Absolute Lymphs (auto) 2.44, Nucleated RBC % 0, Sodium 144, Potassium 3.5, Chloride 113 H, Carbon Dioxide 29.0, Anion Gap 2 L, BUN 11, Creatinine 0.86, Estim Creat Clear Calc 40.58, Est GFR (MDRD) Af Amer 82, Est GFR (MDRD) Non-Af 68, BUN/Creatinine Ratio 12.9, Glucose 91, Calcium 8.5 Microbiology: Microbiology 08/14/23 Unknown Stool Enteric Bacteriology - Final 08/14/23 12:20 Nasal Secretion SARS-CoV-2 & FLU Antigen (Rapid) - Final Radiography Diagnostic Testing: Radiology Impression Chest X-Ray 08/14/23 11:59 IMPRESSION: Degenerative changes, as described above. No demonstrated acute cardiopulmonary process. Electronically Signed: Bernardino Bejarano MD at 15:59 EST Reading Location ID and State: [facility] / [place] , Service support , D/C Instructions Discharge Diet: 2000 Calorie Control Diet (gluten-free diet. ) Meaningful Use Info Meaningful Use Diagnoses (Choose all that apply): None applicable Discharge Plan Admission Admit Date/Time: 08/14/23 15:26 Primary Reason for Your Visit: gastroenteritis. Attending Provider: Cirilo Fine Primary Care Provider: Isra Rubalcava Consulting Providers: Judson Hernandez Instructions Additional Instructions / Restrictions: Is unclear what the underlying etiology of your abdominal issues are but I would be concerned that you may have a food intolerance. I think it is reasonable, for the month, is to be on a gluten-free diet. That means no wheat products at all. If you are still having symptoms after about a month's time despite bite strict adherence to a gluten-free diet and this may not be gluten intolerance and then other food intolerance may be an issue. You may also benefit from seeing a crossband layer as outpatient as well. Discharge Orders/Prescriptions Prescriptions: New ondansetron 8 mg tablet,disintegrating 8 mg PO Q8H PRN (Reason: nausea and vomiting) Qty: 20 0RF Continued alprazolam 0.5 mg tablet 0.5 mg PO 4X/DAY montelukast 10 mg tablet 10 mg PO DAILY hydrocodone-acetaminophen [[place]] 5-325 mg tablet 1 tab PO Q12H PRN (Reason: Pain 1-10 Or Fever) nitroglycerin [Nitrostat] 0.4 mg tablet, sublingual 0.4 mg sublingual Q5-15M PRN (Reason: chest pain) Qty: 25 3RF Rx Instructions: do not exceed 3 doses per episode topiramate 100 mg tablet 50 mg PO BID cholecalciferol (vitamin D3) 125 mcg (5,000 unit) capsule 125 mcg PO DAILY escitalopram oxalate [Lexapro] 10 mg tablet 10 mg PO DAILY (DME) BP cuff See Rx Instructions .Route .MEDSUPPLY Qty: 1 0RF Hold Instructions: MD Ordered Rx Instructions: As directed trazodone 150 mg tablet 300 mg PO QHS ropinirole 1 mg tablet 2 mg PO BID acetaminophen [Tylenol Extra Strength] 500 mg tablet 1,000 mg PO Q4H PRN (Reason: pain) Eliquis 5 mg tablet 5 mg PO Q12H loperamide [Anti-Diarrheal (loperamide)] 2 mg capsule 4 mg PO Q2H PRN (Reason: diarrhea) Rx Instructions: after first loose stool, 1 tablet after each subsequent loose stool but no more than 4 tablets in 24 hours insulin degludec [Tresiba FlexTouch U-100] 100 unit/mL (3 mL) insulin pen 30 unit subcut DAILY fesoterodine 4 mg tablet extended release 24 hr 4 mg PO BID Gemtesa 75 mg tablet 75 mg PO DAILY losartan 100 mg Tablet 25 mg PO DAILY aspirin [Enteric Coated Aspirin] 81 mg tablet,delayed release (DR/EC) 81 mg PO DAILY furosemide [Lasix] 20 mg tablet 20 mg PO DAILY tizanidine 4 mg capsule 4 mg PO Q8H Tremfya 100 mg/mL syringe 100 mg subcut .monthly metoprolol succinate 50 mg Tablet Extended Release 24 Hr 25 mg PO DAILY atorvastatin 40 mg tablet 40 mg PO QDAY Qty: 30 6RF Referrals / Follow Up: Isra Rubalcava MD [Primary Care Provider] - Within 2 Weeks Disposition Disposition (needs filled in before D/C Order can be placed): NonSkilled NH/Intermed Care Charges/Coding Visit Charges Inpatient E&M: 78509 Disch Hosp >30min
[2023-08-15 12:22] LABS: Bedside Glucose 181 mg/dL (74-106)
--- NOTE | 2023-08-15 13:25 | PHA.DC.MC.R ---
Pharmacy [facility] Service has performed discharge medication reconciliation and counseling for this patient. The patient's discharge medication list was reviewed for discrepancies and discrepancies were resolved. The patient was counseled on the following discharge medications and changes in medications for homegoing were reviewed. The Reason for Use, instructions for use, and potential side effects were reviewed for all new medications. The patient's questions regarding all of their medications were answered. 1. Ondansetron 8 mg PO Q8H PRN N/V The patient was able to verbally demonstrate an understanding of their discharge medications. The patient was counselled on new medication ondansetron by pharmacy service associate Hunter. Medications at Discharge Home Medications atorvastatin 40 mg tablet 40 mg PO QDAY cholesterol #30 tabs 03/02/18 alprazolam 0.5 mg tablet 0.5 mg PO 4X/DAY anxiety 11/23/19 montelukast 10 mg tablet 10 mg PO DAILY allergies 12/29/20 nitroglycerin 0.4 mg sublingual tablet (Nitrostat) 0.4 mg sublingual Q5-15M PRN chest pain #25 tabs 10/21/21 BP cuff #1 ea 01/20/22 cholecalciferol (vitamin D3) 125 mcg (5,000 unit) capsule 125 mcg PO DAILY vitamin 01/20/22 escitalopram oxalate 10 mg tablet (Lexapro) 10 mg PO DAILY depression 01/20/22 topiramate 100 mg tablet 50 mg PO BID nerve pain 01/20/22 acetaminophen 500 mg tablet (Tylenol Extra Strength) 1,000 mg PO Q4H PRN pain 05/19/22 hydrocodone-acetaminophen 5-325mg 5mg-325mg ([place]) 1 tab PO Q12H PRN Pain 1-10 Or Fever 05/19/22 ropinirole 1 mg tablet 2 mg PO BID pain 05/19/22 trazodone 150 mg tablet 300 mg PO QHS sleep 05/19/22 apixaban 5 mg tablet (Eliquis) 5 mg PO Q12H blood thinner 04/20/23 loperamide 2 mg capsule (Anti-Diarrheal (loperamide)) 4 mg PO Q2H PRN diarrhea 05/16/23 aspirin 81 mg tablet,delayed release (Enteric Coated Aspirin) 81 mg PO DAILY 08/14/23 fesoterodine 4 mg tablet,extended release 24 hr 4 mg PO BID 08/14/23 furosemide 20 mg tablet (Lasix) 20 mg PO DAILY 08/14/23 guselkumab 100 mg/mL subcutaneous syringe (Tremfya) 100 mg subcut .monthly 08/14/23 insulin degludec 100 unit/mL (3 mL) subcutaneous pen (Tresiba FlexTouch U-100 insulin) 30 unit subcut DAILY 08/14/23 losartan 100 mg tablet 25 mg PO DAILY BP 08/14/23 metoprolol succinate 50 mg tablet,extended release 24 hr 25 mg PO DAILY 08/14/23 tizanidine 4 mg capsule 4 mg PO Q8H 08/14/23 vibegron 75 mg tablet (Gemtesa) 75 mg PO DAILY 08/14/23 ondansetron 8 mg disintegrating tablet 8 mg PO Q8H PRN nausea and vomiting #20 tabs 08/15/23
== END 2023-08-15 13:30 | disposition home or self-care (01) ==
LOC: ED 15:04 → MS3 15:44
PROVIDERS: Admitting Provider Family Medicine; Emergency Provider Emergency Medicine; PCP Family Medicine
DX: K52.9 Noninfective gastroenteritis and colitis, unspecified (principal); I48.0 Paroxysmal atrial fibrillation; E11.9 Type 2 diabetes mellitus without complications; Z79.4 Long term (current) use of insulin; I25.10 Atherosclerotic heart disease of native coronary artery without angina pectoris; I10 Essential (primary) hypertension; Z87.891 Personal history of nicotine dependence; E78.5 Hyperlipidemia, unspecified; Z20.822 Contact with and (suspected) exposure to COVID-19; Z79.899 Other long term (current) drug therapy; Z79.01 Long term (current) use of anticoagulants; F41.9 Anxiety disorder, unspecified; F32.A Depression, unspecified; G47.33 Obstructive sleep apnea (adult) (pediatric); K21.9 Gastro-esophageal reflux disease without esophagitis; Z86.711 Personal history of pulmonary embolism; R94.31 Abnormal electrocardiogram [ECG] [EKG]; R00.0 Tachycardia, unspecified
CPT/HCPCS: 71045; 80048; 80076; 81001; 82962; 83605; 83690; 85025; 85610; 85730; 87040; 87428; 87506; 93005; 96361; 96374; 97162; 97166; 99221; 99285; J7030; G0378; J2405

== ENCOUNTER → 2023-10-24 | Outpatient (CLI) | payer MEDICARE, SELFPAY ==
[2023-10-24 12:20] LABS: Absolute Lymphocyte Count 2.52 X10^3/uL (0.83-4.51); Absolute Neutrophil Count 3.1 X10^3/uL (2.0-7.7); Basophil# 0.04 X10^3/uL; Basophil% 0.6 % (0-1); Eosinophil# 0.16 X10^3/uL; Eosinophils% 2.6 % (0-5); Hematocrit 37.1 % (37-47); Lymphocyte # 2.52 X10^3/ul (0.83-4.51); Lymphocyte % 40.4 % (19-41); Mean Corp Hgb Conc 32.3 g/dL (32-36); Mean Corpuscular Hgb 28.5 pg (27.0-32.0); Mean Corpuscular Volume 88.1 fL (81-99); Mean Platelet Vol. 10.6 fl (6.2-12.0); Monocyte% 6.4 % (0-10); NRBC Flagged by Analyzer 0 % (0-5); Neutrophil # 3.11 X10^3/uL (2.7-7.7); Neutrophil % 49.8 % (47-70); Platelet Count 212 K/mm3 (150-450); RBC Distribution Width CV 13.7 % (11.6-14.6); RBC Distribution Width SD 44.2 fl (35.1-43.9); Red Blood Count 4.21 M/mm3 (4.2-5.4); White Blood Count 6.2 K/mm3 (4.4-11.0)
[2023-10-24 12:53] LABS: BNP,B-Type NATRIURETIC PEPTIDE 144.8 pg/mL (0-100)
[2023-10-24 13:16] LABS: Anion Gap 5 (5-15); BUN 16 mg/dL (7-18); BUN/Creat Ratio 15.5 RATIO (10-20); Calcium,Total 9.6 mg/dL (8.5-10.1); Chloride 108 mmol/L (98-107); Creatinine, Serum 1.03 mg/dL (0.55-1.02); EST Glomerular Filtration Rate 55 mL/min (>60); Est Glom Filt Rate - Afr Amer 66 mL/min (>60); Glucose 118 mg/dL (74-106); Sodium Level 141 mmol/L (136-145)
== END | disposition home or self-care (01) ==
PROVIDERS: PCP Family Medicine; Referring Provider Nurse Practitioner Gerontology; Visit Provider Nurse Practitioner Gerontology
DX: R06.02 Shortness of breath (principal)
CPT/HCPCS: 36415; 80048; 83880; 85025

== ENCOUNTER → 2023-11-04 | Outpatient (CLI) | payer MEDICARE, SELFPAY ==
[2023-11-04 13:23] LABS: Anion Gap 1 (5-15); BUN 14 mg/dL (7-18); BUN/Creat Ratio 12.7 RATIO (10-20); Chloride 106 mmol/L (98-107); EST Glomerular Filtration Rate 51 mL/min (>60); Est Glom Filt Rate - Afr Amer 61 mL/min (>60); Glucose 98 mg/dL (74-106); Potassium 4.1 mmol/L (3.5-5.1); Sodium Level 137 mmol/L (136-145)
--- OUTSIDE RECORDS SUMMARY | 2023-11-04 14:35 | XMS RPT_ITS | CCD ---
Author Name Unknown Address [address] [place] [address] Organization [facility] Care Team Providers Care Litigation Legal Assistant Name Role Phone BOLOGNA, FRANK A Unavailable Unavailable OGLESBY, ISRA D Unavailable Unavailable BOLOGNA, FRANK A Unavailable Unavailable OGLESBY, ISRA D Unavailable Unavailable BERNHART, JONA Unavailable Unavailable OGLESBY, ISRA D Unavailable Unavailable BOLOGNA, FRANK A Unavailable Unavailable OGLESBY, ISRA D Unavailable Unavailable OGLESBY, ISRA D Unavailable Unavailable BERNHART, JONA Unavailable Unavailable OGLESBY, ISRA D Unavailable Unavailable OGLESBY, ISRA D Unavailable Unavailable BERNHART, JONA Unavailable Unavailable OGLESBY, ISRA D Unavailable Unavailable BERNHART, JONA Unavailable Unavailable OGLESBY, ISRA D Unavailable Unavailable OGLESBY, ISRA D Unavailable Unavailable BOLOGNA, FRANK A Unavailable Unavailable BOLOGNA, FRANK A Unavailable Unavailable OGLESBY, ISRA D Unavailable Unavailable BERNHART, JONA Unavailable Unavailable BOLOGNA, FRANK A Unavailable Unavailable OGLESBY, ISRA D Unavailable Unavailable OGLESBY, ISRA D Unavailable Unavailable OGLESBY, ISRA D Unavailable Unavailable ARYA, SAMIR Unavailable Unavailable OGLESBY, ISRA D Unavailable Unavailable ARYA, SAMIR Unavailable Unavailable ARYA, SAMIR Unavailable Unavailable ARYA, SAMIR Unavailable Unavailable OGLESBY, ISRA D Unavailable Unavailable ARYA, SAMIR Unavailable Unavailable ARYA, SAMIR Unavailable Unavailable OGLESBY, ISRA D Unavailable Unavailable ARYA, SAMIR Unavailable Unavailable ARYA, SAMIR Unavailable Unavailable OGLESBY, ISRA D Unavailable Unavailable ARYA, SAMIR Unavailable Unavailable ARYA, SAMIR Unavailable Unavailable OGLESBY, ISRA D Unavailable Unavailable ARYA, SAMIR Unavailable Unavailable ARYA, SAMIR Unavailable Unavailable OGLESBY, ISRA D Unavailable Unavailable ARYA, SAMIR Unavailable Unavailable ARYA, SAMIR Unavailable Unavailable OGLESBY, ISRA D Unavailable Unavailable SAMIR KOENIG Unavailable Unavailable SAMIR KOENIG Unavailable Unavailable ISRA OGLESBY Unavailable Unavailable Isra Oglesby MD Primary Care Provider 1( [phone] ISRA OGLESBY MD Primary Care Physician Flor Gutierrez PT Unavailable Unavailable ISRA OGLESBY MD Primary Care Unavailable ISRA OGLESBY MD Attending Unavailable ISRA OGLESBY MD Primary Care Unavailable ISRA OGLESBY MD Attending Unavailable ISRA OGLESBY MD Primary Care Unavailable ISRA OGLESBY MD Attending Unavailable ISRA OGLESBY MD Primary Care Unavailable ISRA OGLESBY MD Attending Unavailable ISRA OGLESBY MD Primary Care Unavailable BROOKELAND KEVIN LERKVNG Attending UnavailISRA Carty MD Primary Care Unavailable ISRA OGLESBY MD Attending Unavailable ISRA OGLESBY MD Primary Care Unavailable ISRA OGLESBY MD Attending Unavailable KATALINA MANCINI Attending Unavailable ISRA OGLESBY MD Primary Care Unavailable Allergies Allergy Classification Reported Allergen(s) Allergy Type Date of Onset Reaction(s) Facility (15 sources) codeine; 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: [CODEINE] Drug Allergy 2 Other: See Comments [facility] Repository (15 sources) Latex; 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: [LATEX] Propensity to adverse reactions (disorder) 8 Hives [facility] Repository (6 sources) metFORMIN; 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: [METFORMIN] Drug Allergy 7 Unknown [facility] Repository (15 sources) SITagliptin; 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: [SITAGLIPTIN] Drug Allergy 7 Unknown [facility] Repository (9 sources) Promethazine; 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: [promethazine] Drug Allergy [facility] (9 sources) tiZANidine; 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: [tizanidine] Drug Allergy SICK, DIZZINESS [facility] Medications Current Medications Medication Drug Class(es) Dates Sig (Normalized) Sig (Original) acetaminophen 500 mg oral tablet (12 sources) Start: 02-18-2023 Tylenol Extra Strength 500 mg oral tablet Dose : 1,000 mg = 2 tab(s), Oral, q4h, PRN as needed for pain, # 120 tab(s), 1 Refill(s), Pharmacy: [facility] - [id number], 155.5, cm, 02/11/23 10:54:00 EDT, Height, kg, 02/11/23 10:54:00 EDT, Dosing Weight Start Date: 02/18/23 Status: Ordered Completed/Discontinued Medications Medication Drug Class(es) Dates Sig (Normalized) Sig (Original) acetaminophen 325 mg / oxyCODONE hydrochloride 5 mg oral tablet (5 sources) Opioid Agonist Start: 05-12-2017 oxyCODONE-acetam inophen (PERCOCET) 5-325 mg tablet amoxicillin 875 mg / clavulanate 125 mg oral tablet (5 sources) Penicillin-class Antibacterial Start: 11-23-2017 amoxicillin-clav ulanic acid (AUGMENTIN) 875-125 mg per tablet 0 11/23/2017 Active betamethasone 0.5 mg/ml / clotrimazole 10 mg/ml topical cream (5 sources) Azole Antifungal, Corticosteroid Start: 03-11-2017 clotrimazole-bet amethasone (LOTRISONE) cream Apply to affected area twice daily. 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 Cardiac dysrhythmias (18 sources) Atrial fibrillation 04-30-2020 Chronic Conditions associated with dizziness or vertigo (9 sources) Dizziness 11-28-2019 Episodic Diabetes mellitus without complication (11 sources) Type 2 diabetes mellitus; 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: [Type 2 diabetes mellitus without complications] Onset: 3 10-07-2020 Chronic Disorders of lipid metabolism (9 sources) Hypercholesterolemia 08-29-2019 Chronic Diverticulosis and diverticulitis (9 sources) Diverticulitis 11-21-2014 Chronic E Codes: Fall (9 sources) Fall 08-16-2017 Esophageal disorders (13 sources) Gastroesophageal reflux disease; 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: [Gastro-esophageal reflux disease without esophagitis] Onset: 3 04-09-2020 Chronic Essential hypertension (9 sources) Hypertensive disorder Onset: 3 04-09-2020 Chronic Fever of unknown origin (1 source) Fever 08-31-2023 Episodic Genitourinary symptoms and ill-defined conditions (19 sources) Urge incontinence of urine; 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: [Urge incontinence] Onset: Chronic Past or Other Problems Problem Classification Problem Date Documented Da te Episodic/Chronic Genitourinary symptoms and ill-defined conditions (10 sources) Nocturia; 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: [Nocturia] Onset: 03-04-2023 Episodic Other aftercare (2 sources) jail (current) use of anticoagulants; 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: [jail (current) use of anticoagulants] Onset: 05-02-2023 Episodic Unclassified (1 source) Low back pain, unspecified; 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: [Low back pain, unspecified] Onset: 2023 Results Test Name Value Interpretation Reference Range Facil ity Vital Signs Date Time Vital Sign Value Performing Clinician Faci lity 04-06-2022 10:39-0400 Body height 157.5 cm Frank Jackson MD Work Phone: [facility] 04-06-2022 10:39-0400 Body weight 83.92 kg Frank Jackson MD Work Phone: [facility] 04-06-2022 10:39-0400 Diastolic blood pressure 84 mm[Hg] Frank Jackson MD Work Phone: [facility] 04-06-2022 10:39-0400 Systolic blood pressure 152 mm[Hg] Frank Jackson MD Work Phone: [facility] 09-02-2021 09:09-0500 Body height 157.5 cm Frank Jackson MD Work Phone: [facility] 09-02-2021 09:09-0500 Body weight 83.92 kg Frank Jackson MD Work Phone: [facility] 09-02-2021 09:09-0500 Diastolic blood pressure 70 mm[Hg] Frank Jackson MD Work Phone: [facility] 09-02-2021 09:09-0500 Systolic blood pressure 130 mm[Hg] Frank Jackson MD Work Phone: [facility] 06-17-2021 13:39-0400 Body height 157.5 cm Frank Jackson MD Work Phone: [facility] 06-17-2021 13:39-0400 Body weight 83.92 kg Frank Jackson MD Work Phone: [facility] 06-17-2021 13:39-0400 Diastolic blood pressure 80 mm[Hg] Frank Jackson MD Work Phone: [facility] 06-17-2021 13:39-0400 Systolic blood pressure 126 mm[Hg] Frank Jackson MD Work Phone: [facility] Encounters Encounter Date Encounter Type Care Provider Facility Start: 09-22-2023 End: 09-23-2023 ambulatory KATALINA MANCINI Facility:B Start: 09-22-2023 End: 09-22-2023 Patient encounter procedure ISRA OGLESBY MD [facility] Start: 2023 End: 08-14-2023 ambulatory ISRA OGLESBY MD Facility:B Start: 2023 End: 08-13-2023 Outreach Lab ISRA OGLESBY MD [facility] Start: 08-04-2023 End: 08-05-2023 ambulatory ISRA OGLESBY MD Facility:B Start: 05-02-2023 End: 05-07-2023 ambulatory ISRA OGLESBY MD Facility:B Start: 03-04-2023 End: 03-09-2023 ambulatory ISRA OGLESBY MD Facility:B Start: 03-04-2023 End: 03-08-2023 Outreach Lab ARIANE RAMIREZ ASSISTANT PROFESSOR OF RADIOLOGY-RETAIL DEPARTMENT MANAGER [facility] Start: 12-17-2022 End: 12-18-2022 ambulatory ISRA OGLESBY MD Facility:B Start: 12-17-2022 End: 12-17-2022 Patient encounter procedure ISRA OGLESBY MD [facility] Start: 11-05-2022 End: 11-06-2022 ambulatory ISRA OGLESBY MD Facility:B Start: 05-11-2022 End: 05-11-2022 Patient encounter procedure ISRA OGLESBY MD [facility] Start: 04-06-2022 End: 04-06-2022 Patient encounter procedure Frank Jackson MD Work Phone: Urology Procedures Date Procedure Procedure Detail Performing Clinician Start: 04-06-2022 Urnls dip stick/tabl et rgnt auto w/o microscopy Frank Jackson MD Work Phone: Start: 09-02-2021 Urnls dip stick/tabl et rgnt auto w/o microscopy Frank Jackson MD Work Phone: Start: 05-31-2017 Coronary artery bypa ss grafts x 4 BASILIA MI DO Plan of Treatment Date Care Activity Detail Author Start: 09-29-2022 End: 11-29-2022 Bacteria identified in Urine by Culture URINE CULTURE Microbiology Routine Urge incontinence Expected: 09/29/2022 (Approximate), Expires: 11/29/2022 [facility] Work Phone: Immunizations Immunization Date Immunization Notes Care Provider Fa [facility] 05-26-2023 SARS-CoV-2 (CV19)mRNA-[id number] bivalent vac 1 ISRA OGLESBY MD [facility] Payers Date Payer Category Payer Unknown [id number] 2016 Unknown [id number] 1942 Unknown [id number] 2.16.8 40.1.330751.3.579.2.278 1942 Unknown [id number] 2.16.8 40.1.812752.3.579.2.278 1942 Unknown [id number] 2.16.8 40.1.536909.3.579.2.278 1942 Unknown [id number] 2.16.8 40.1.180923.3.579.2.278 1942 Unknown [id number] 2.16.8 40.1.216480.3.579.2.278 1942 Unknown [id number] 2.16.8 40.1.188536.3.579.2.278 1942 Unknown [id number] 2.16.8 40.1.119388.3.579.2.278 1942 Unknown [id number] 2.16.8 40.1.577163.3.579.2.278 1942 Unknown [id number] 2.16.8 40.1.809439.3.579.2.278 1942 Unknown [id number] 2.16.8 40.1.965385.3.579.2.278 1942 Unknown [id number] 2.16.8 40.1.968501.3.579.2.278 1942 Unknown [id number] 2.16.8 40.1.216680.3.579.2.278 1942 Unknown [id number] 2.16.8 40.1.724640.3.579.2.278 1942 Unknown [id number] 2.16.8 40.1.819426.3.579.2.278 1942 Unknown [id number] 2.16.8 40.1.754872.3.579.2.278 1942 Unknown [id number] 2.16.8 40.1.562870.3.579.2.278 1942 Unknown [id number] 2.16.8 40.1.310124.3.579.2.278 1942 Unknown [id number] 2.16.8 40.1.851866.3.579.2.278 1942 Unknown [id number] 2.16.8 40.1.538517.3.579.2.627 1942 Unknown [id number] 2.16.8 40.1.948910.3.579.2.627 1942 Unknown [id number] 2.16.8 40.1.253979.3.579.2.627 1942 Unknown [id number] 2.16.8 40.1.205791.3.579.2.627 1942 Unknown [id number] 2.16.8 40.1.739801.3.579.2.627 1942 Unknown [id number] 2.16.8 40.1.747921.3.579.2.627 1942 Unknown [id number] 2.16.8 40.1.730108.3.579.2.627 1942 Unknown [id number] 2.16.8 40.1.909455.3.579.2.627 Social History Date Type Detail Facility Start: 08-19-2017 End: 06-17-2021 Tobacco smoking status [facility] Former smoker [facility] Medical Equipment Procedure Code Equipment Code Equipment Origin al Text Equipment Identifier Dates Start: 03-17-2017 Clinical Notes 06-17-2021 to 08-10-2023 Maggi Ellington RN - 04/06/2022 2:09 PM Antoinette Ellington RN - 04/06/2022 10:41 AM EDZach Jackson MD - 04/06/2022 10:30 AM EDTTelephone Angel Bassett Ma - 03/23/2022 1:58 PM EDT Note Date & Type Note Facility 08-10-2023 Note . MICRO - Microbiology PROCEDURE: Urine Culture [*1] SOURCE: Urine, Clean Catch BODY SITE: COLLECTED DATE/TIME: 2023 17:30 EST RECEIVED DATE/TIME: 2023 19:45 EST START DATE/TIME: 2023 19:46 EST FREE TEXT SOURCE: FINAL REPORTS Final Report [] Verified Date/Time/Personnel: 08/10/2023 14:36 EST >100,000 cfu/ml Multiple bacterial morphotypes present. Probable Contamination. Suggest recollection if clinically indicated. Performing Locations *1: This test was performed at: [address], [address]- , [facility] ([place]) 03-05-2023 Note . MICRO - Microbiology PROCEDURE: Urine Culture [*1] SOURCE: Urine, Clean Catch BODY SITE: COLLECTED DATE/TIME: 03/04/2023 16:22 EDT RECEIVED DATE/TIME: 03/04/2023 18:47 EDT START DATE/TIME: 03/04/2023 18:47 EDT FREE TEXT SOURCE: FINAL REPORTS Final Report [] Verified Date/Time/Personnel: 03/05/2023 14:25 EDT >100,000 cfu/ml Multiple bacterial morphotypes present. Probable Contamination. Suggest recollection if clinically indicated. Performing Locations *1: This test was performed at: [address], [facility]- , [facility] ([place]) 04-06-2022 Nurse Note Patient straight catheterized for 10 ml urine. Lidocaine 1%--50 and 2%--50 ml instilled into bladder followed by Lidocaine 11 ml to urethra. Maggi Ellington RN Medications and Allergies reviewed and documented. Patient accompanied by:self High Risk: WEIGHT APPETITE CHANGE: No SAFETY IN THE HOME: Yes ADL'S: No CONCERNS ABOUT ABUSE: No Latex allergy: Yes. Betadine allergy: No Lidocaine allergy: No Do you have any difficulty with chewing and swallowing? No. Any new or significant change in pain? No Level of pain, 1-10, with 1 being mild discomfort is NA documented in this encounter [facility] 04-06-2022 Note HNO ID: [id number] Author: Frank Jackson MD Service: ? Author Type: Physician Type: Progress Notes Filed: 04/06/2022 2:02 PM Note Text: OPERATIVE REPORT Botox Injection Preop Nurse: Maggi Ellington RN Preop Check List: Patient complied with pre-op instructions, Surgical site identified and confirmed by patient, Patient Identified, Patient consent obtained, Allergies confirmed with patient. UNIVERSAL PROTOCOL / SAFETY CHECKLIST Procedure to be Performed: cystoscopy and Botox Sign In: A Moment of CARE was completed. Personnel directly involved with the procedure wore the appropriate PPE (Personal Protective Equipment). Patient/Surrogate Stated/Verified: PATIENT VERIFIED(optional for EMERGENT procedures): Patient name, Date of , Relevant allergies and The intended procedure Time Out Communication: Intended patient and procedure match the source documents. Consent documented and matches the intended procedure. Sign Out: Maggi Ellington RN Procedure: Cystoscopy and Intravesical Botox Injection FINDINGS AND PROCEDURE: The history, physical findings, current medications and indications were reviewed prior to the procedure. I discussed the procedure with the patient including possible complications. In the dorsal lithotomy position, cystoscopy was performed using the flexible/rigid cystoscope and 0.9% normal saline. Intra-procedural note: Vacuum-dried purified onabotulinumtoxinA (BOTOX) was reconstituted with 10ml of 0.9% non preserved saline solution per 100 units and mixed gently.200 units of reconstituted BOTOX. Intraservice: Local anesthesia of Lidocaine 100ml was instilled into the bladder for 15 minutes. The bladder was then drained and instilled with 75ml of 0.9% normal saline to achieve adequate visualization for the injections by the physician. Prior to the start of injections, each needle was primed with approximately 1ml of reconstituted BOTOX to remove any air. A 4-mm needle was attached to the syringe and inserted through the working channel of the cystoscope to gain access to the bladder. The injection volume for 1 site-- 1mL -- was inserted approximately 2 mm into the detrusor. 1 mL injections were administered, spaced approximately 1 cm apart, avoiding the trigone. For the final injection, approximately 1 mL of 0.9% non-preserved saline was injected so the full 200 unit dose is delivered. At the end of the injection procedure, the 75 mL of saline used for bladder-wall visualization was drained, and the cystoscope was removed. The nurse assisted the physician throughout the procedure. Postservice: The injection materials and empty vial of onabotulinumatoxinA were disposed of by the nurse, consistent with locally applicable biohazard rules and procedures. The patient remained in the treatment room for 30 minutes following the procedure for observation. The nurse conducted a brief examination of the patient and inquired whether the patient was experiencing any side effects from the injection. The physician returned to check on the patient and ordered the patient's discharge with follow-up immediately by telephone should the patient experience any side effects, or via emergency room for any serious adverse effects (although none were expected). A follow-up appointment was made. POSTOPERATIVE DIAGNOSIS: Urge incontinence (primary encounter diagnosis) Post-Operative Nursing Record Post Procedure Plan Instruction Sheet Given: Post Cystoscopy [facility] 04-06-2022 History of Present illness Narrative OPERATIVE REPORT Botox Injection Preop Nurse: Maggi Ellington RN Preop Check List: Patient complied with pre-op instructions, Surgical site identified and confirmed by patient, Patient Identified, Patient consent obtained, Allergies confirmed with patient. UNIVERSAL PROTOCOL / SAFETY CHECKLIST Procedure to be Performed: cystoscopy and Botox Sign In: A Moment of CARE was completed. Personnel directly involved with the procedure wore the appropriate PPE (Personal Protective Equipment). Patient/Surrogate Stated/Verified: PATIENT VERIFIED(optional for EMERGENT procedures): Patient name, Date of , Relevant allergies and The intended procedure Time Out Communication: Intended patient and procedure match the source documents. Consent documented and matches the intended procedure. Sign Out: Maggi Ellington RN Procedure: Cystoscopy and Intravesical Botox Injection FINDINGS AND PROCEDURE: The history, physical findings, current medications and indications were reviewed prior to the procedure. I discussed the procedure with the patient including possible complications. In the dorsal lithotomy position, cystoscopy was performed using the flexible/rigid cystoscope and 0.9% normal saline. Intra-procedural note: Vacuum-dried purified onabotulinumtoxinA (BOTOX) was reconstituted with 10ml of 0.9% non preserved saline solution per 100 units and mixed gently.200 units of reconstituted BOTOX. Intraservice: Local anesthesia of Lidocaine 100ml was instilled into the bladder for 15 minutes. The bladder was then drained and instilled with 75ml of 0.9% normal saline to achieve adequate visualization for the injections by the physician. Prior to the start of injections, each needle was primed with approximately 1ml of reconstituted BOTOX to remove any air. A 4-mm needle was attached to the syringe and inserted through the working channel of the cystoscope to gain access to the bladder. The injection volume for 1 site-- 1mL -- was inserted approximately 2 mm into the detrusor. 1 mL injections were administered, spaced approximately 1 cm apart, avoiding the trigone. For the final injection, approximately 1 mL of 0.9% non-preserved saline was injected so the full 200 unit dose is delivered. At the end of the injection procedure, the 75 mL of saline used for bladder-wall visualization was drained, and the cystoscope was removed. The nurse assisted the physician throughout the procedure. Postservice: The injection materials and empty vial of onabotulinumatoxinA were disposed of by the nurse, consistent with locally applicable biohazard rules and procedures. The patient remained in the treatment room for 30 minutes following the procedure for observation. The nurse conducted a brief examination of the patient and inquired whether the patient was experiencing any side effects from the injection. The physician returned to check on the patient and ordered the patient's discharge with follow-up immediately by telephone should the patient experience any side effects, or via emergency room for any serious adverse effects (although none were expected). A follow-up appointment was made. POSTOPERATIVE DIAGNOSIS: Urge incontinence (primary encounter diagnosis) Post-Operative Nursing Record Post Procedure Plan Instruction Sheet Given: Post Cystoscopy documented in this encounter [facility] 03-23-2022 Miscellaneous Notes Pt informed orders were placed Amanda Bassett Ma Yes, order placed Thank you Luiza Galo called today. : 1940 Allergies: Januvia [Sitagliptin], Latex, Metformin, and Codeine (cell) Message can be left with: with patient only Reason for call: pt is coming in for Botox 04/06/22 she would like to know if she needs a culture done before her appt. To make sure she doesn't have a UTI. Amanda Bassett Ma documented in this encounter [facility] 09-02-2021 Nurse Note Patient straight catheterized for 30 ml urine. Lidocaine 2%--50 ml instilled into bladder followed by Lidocaine 11 ml to urethra. Maggi Ellington RN Medications and Allergies reviewed and documented. Patient accompanied by:self High Risk: WEIGHT APPETITE CHANGE: No SAFETY IN THE HOME: Yes, falls ADL'S: Yes CONCERNS ABOUT ABUSE: No Latex allergy: Yes. Betadine allergy: No Lidocaine allergy: No Do you have any difficulty with chewing and swallowing? No. Any new or significant change in pain? No Level of pain, 1-10, with 1 being mild discomfort is NA documented in this encounter [facility] 09-02-2021 Note HNO ID: [id number] Author: Frank Jackson MD Service: ? Author Type: Physician Type: Procedures Filed: 09/02/2021 11:04 AM Note Text: OPERATIVE REPORT Botox Injection Preop Nurse: Maggi Ellington RN Preop Check List: Patient complied with pre-op instructions, Surgical site identified and confirmed by patient, Patient Identified, Patient consent obtained, Allergies confirmed with patient. Procedure: Cystoscopy and Intravesical Botox Injection FINDINGS AND PROCEDURE: The history, physical findings, current medications and indications were reviewed prior to the procedure. I discussed the procedure with the patient including possible complications. In the dorsal lithotomy position, cystoscopy was performed using the flexible/rigid cystoscope and 0.9% normal saline. Intra-procedural note: Vacuum-dried purified onabotulinumtoxinA (BOTOX) was reconstituted with 10ml of 0.9% non preserved saline solution per 100 units and mixed gently.200 units of reconstituted BOTOX. Intraservice: Local anesthesia of Lidocaine 2% 50ml was instilled into the bladder for 15 minutes. The bladder was then drained and instilled with 75ml of 0.9% normal saline to achieve adequate visualization for the injections by the physician. Prior to the start of injections, each needle was primed with approximately 1ml of reconstituted BOTOX to remove any air. A 4-mm needle was attached to the syringe and inserted through the working channel of the cystoscope to gain access to the bladder. The injection volume for 1 site-- 1mL -- was inserted approximately 2 mm into the detrusor. 1 mL injections were administered, spaced approximately 1 cm apart, avoiding the trigone. For the final injection, approximately 1 mL of 0.9% non-preserved saline was injected so the full 200 unit dose is delivered. At the end of the injection procedure, the 75 mL of saline used for bladder-wall visualization was drained, and the cystoscope was removed. The nurse assisted the physician throughout the procedure. Postservice: The injection materials and empty vial of onabotulinumatoxinA were disposed of by the nurse, consistent with locally applicable biohazard rules and procedures. The patient remained in the treatment room for 30 minutes following the procedure for observation. The nurse conducted a brief examination of the patient and inquired whether the patient was experiencing any side effects from the injection. The physician returned to check on the patient and ordered the patient's discharge with follow-up immediately by telephone should the patient experience any side effects, or via emergency room for any serious adverse effects (although none were expected). A follow-up appointment was made. POSTOPERATIVE DIAGNOSIS: Urge incontinence (primary encounter diagnosis) Post-Operative Nursing Record Post Procedure Plan Instruction Sheet Given: Post Cystoscopy [facility] 09-02-2021 Procedure note Procedure(s): BOTOX Pre-Procedure Diagnose(s): Urge incontinence Post-Procedure Diagnose(s): Urge incontinence OPERATIVE REPORT Botox Injection Preop Nurse: Maggi Ellington RN Preop Check List: Patient complied with pre-op instructions, Surgical site identified and confirmed by patient, Patient Identified, Patient consent obtained, Allergies confirmed with patient. Procedure: Cystoscopy and Intravesical Botox Injection FINDINGS AND PROCEDURE: The history, physical findings, current medications and indications were reviewed prior to the procedure. I discussed the procedure with the patient including possible complications. In the dorsal lithotomy position, cystoscopy was performed using the flexible/rigid cystoscope and 0.9% normal saline. Intra-procedural note: Vacuum-dried purified onabotulinumtoxinA (BOTOX) was reconstituted with 10ml of 0.9% non preserved saline solution per 100 units and mixed gently.200 units of reconstituted BOTOX. Intraservice: Local anesthesia of Lidocaine 2% 50ml was instilled into the bladder for 15 minutes. The bladder was then drained and instilled with 75ml of 0.9% normal saline to achieve adequate visualization for the injections by the physician. Prior to the start of injections, each needle was primed with approximately 1ml of reconstituted BOTOX to remove any air. A 4-mm needle was attached to the syringe and inserted through the working channel of the cystoscope to gain access to the bladder. The injection volume for 1 site-- 1mL -- was inserted approximately 2 mm into the detrusor. 1 mL injections were administered, spaced approximately 1 cm apart, avoiding the trigone. For the final injection, approximately 1 mL of 0.9% non-preserved saline was injected so the full 200 unit dose is delivered. At the end of the injection procedure, the 75 mL of saline used for bladder-wall visualization was drained, and the cystoscope was removed. The nurse assisted the physician throughout the procedure. Postservice: The injection materials and empty vial of onabotulinumatoxinA were disposed of by the nurse, consistent with locally applicable biohazard rules and procedures. The patient remained in the treatment room for 30 minutes following the procedure for observation. The nurse conducted a brief examination of the patient and inquired whether the patient was experiencing any side effects from the injection. The physician returned to check on the patient and ordered the patient's discharge with follow-up immediately by telephone should the patient experience any side effects, or via emergency room for any serious adverse effects (although none were expected). A follow-up appointment was made. POSTOPERATIVE DIAGNOSIS: Urge incontinence (primary encounter diagnosis) Post-Operative Nursing Record Post Procedure Plan Instruction Sheet Given: Post Cystoscopy documented in this encounter [facility] 08-19-2021 Miscellaneous Notes Patient has an upcoming appointment and wondered if she needed to stop her coumadin- she doesn't, patient informed. Maggi Vega RN documented in this encounter [facility] 06-17-2021 Note HNO ID: [id number] Author: Frank Jackson MD Service: ? Author Type: Physician Type: Progress Notes Filed: 06/17/2021 2:36 PM Note Text: NEW PATIENT HISTORY AND PHYSICAL EXAM HISTORY OF PRESENT ILLNESS: Luiza Galo is a 80 year old female who presents New patient today but Saw Dr Jackson 3 years ago. Has interstim but not active. 3 , Patient with a history of OAB. She has a history of an Intertim placement that is not functioning. Previous botox injection that has been helping. Last botox injection was about 6 months. Nocturia 3-4 Will plan botox injections. Do you leak with cough, sneeze or exercise Yes Do you leak with urgency such as getting to the restroom on time or with running water Yes How many times do you urinate during the day 10 - 15 How many times do you get up to urinate at night 3 - 4 How many pads do you wear during the day 3 Do you wear pads at night Depends Do you have fecal urgency Sometimes Do you have fecal incontinence Sometimes Do you have pain with intercourse N/A Do you have urinary leakage with intercourse No What medications have you tried to help your leakage Tired Myrbeytriq didn't help What surgeries have you had for the above symptoms No REVIEW OF SYSTEMS: GENERAL:No weight loss, malaise or fevers ALLERGIC/IMMUNOLOGIC: hay fever and drug allergies HEENT: having headaches a lot RESPIRATORY: Negative for cough, hemoptysis, wheezing, COPD, dyspnea or shortness of breath CARDIOVASCULAR: Hypertension, heart bypass GASTROINTESTINAL: No nausea, vomiting, or diarrhea GENITOURINARY: See HPI MUSCULOSKELETAL: back pain and muscle pain NEUROLOGIC:Positive for numbness or tingling in the hands: and feet numbness or tingling of the feet: SKIN:psorasis GLUCOSE UA (POCT) Negative 06/17/2021 BILIRUBIN UA (POCT) Negative 06/17/2021 KETONE UA (POCT) Negative 06/17/2021 SPECIFIC GRAVITY UA (POCT) 1.015 06/17/2021 HEMOGLOBIN/BLOOD UA (POCT) Negative 06/17/2021 PH UA (POCT) 5.0 06/17/2021 PROTEIN UA (POCT) Negative 06/17/2021 UROBILINOGEN UA (POCT) 0.2 06/17/2021 NITRITE UA (POCT) Negative 06/17/2021 LEUKOCYTES UA (POCT) Negative 06/17/2021 COLOR UA (POCT) Yellow 06/17/2021 CLARITY UA (POCT) Clear 06/17/2021 MEDICATIONS: lisinopril (ZESTRIL, PRINIVIL) 5 mg tablet metoprolol succinate ER (TOPROL XL) 25 mg 24 hr tablet metoprolol succinate ER (TOPROL XL) 50 mg 24 hr tablet risperiDONE 0.25 mg ODT risperiDONE (RISPERDAL) 0.25 mg tablet sertraline (ZOLOFT) 50 mg tablet BD INSULIN SYRINGE ULTRA-FINE 1 mL 31 gauge x 5/16 syrg warfarin (COUMADIN) 2.5 mg tablet nitrofurantoin monohydrate and macrocrystal (MACROBID) 100 mg capsule Take 1 capsule by mouth twice daily. amoxicillin-clavulanic acid (AUGMENTIN) 875-125 mg per tablet atorvastatin (LIPITOR) 40 mg tablet NOVOLOG FLEXPEN U-100 INSULIN 100 unit/mL inpn XULTOPHY 100/3.6 100 unit-3.6 mg /mL (3 mL) inpn Trospium (SANCTURA SR) 60 mg cp24 Take 1 capsule by mouth once daily. INVOKANA 300 mg tablet Take 300 mg by mouth once daily. clotrimazole-betamethasone (LOTRISONE) cream Apply to affected area twice daily. APPLY TO AFFECTED AREA clonazePAM (KLONOPIN) 1 mg tablet TRUE METRIX GLUCOSE TEST STRIP test strip twice daily. MICRO THIN LANCETS 33 gauge misc twice daily. USE DIRECTED. lisinopril 2.5 mg tablet Take 2.5 mg by mouth once daily. losartan (COZAAR) 100 mg tablet Take 100 mg by mouth once daily. metoprolol tartrate, short acting, (LOPRESSOR) 25 mg tablet Take 25 mg by mouth daily at bedtime. pantoprazole DR (PROTONIX) 40 mg tablet Take 40 mg by mouth twice daily. BD INSULIN SYRINGE ULTRA-FINE 1 mL 31 gauge x 15/64 syrg rosuvastatin (CRESTOR) 20 mg tablet Take 20 mg by mouth once daily. traZODone (DESYREL) 100 mg tablet Take 100 mg by mouth daily at bedtime. venlafaxine XR (EFFEXOR XR) 150 mg 24 hr capsule Take 150 mg by mouth once daily. warfarin (COUMADIN) 2 mg tablet TAKE 1 TABLET BY MOUTH 5 DAYS A WEEK - SUN, , TUE, FRI AND SAT zolpidem (AMBIEN) 10 mg tab oxyCODONE-acetaminophen (PERCOCET) 5-325 mg tablet insulin detemir (LEVEMIR) 100 unit/mL injection Inject subcutaneously daily at bedtime. citalopram (CELEXA) 40 mg tablet Take 40 mg by mouth once daily. HYDROcodone-acetaminophen (NORCO) 5-325 mg per tablet Take 1 tablet by mouth every 6 hours as needed. ACETAMINOPHEN (TYLENOL ARTHRITIS ORAL) Take by mouth. simvastatin (ZOCOR) 40 mg tablet Take 40 mg by mouth daily at bedtime. promethazine (PHENERGAN) 25 mg tablet Take 25 mg by mouth every 6 hours as needed. insulin glargine (LANTUS) 100 unit/mL injection Inject subcutaneously daily at bedtime. HISTORIES PAST MEDICAL HISTORY Diagnosis Date - Benzodiazepine dependence, continuous ([facility]) - Depression - Diverticulitis - DM type 2 (diabetes mellitus, type 2) ([facility]) - Enuresis - RADHA (generalized anxiety disorder) - GERD (gastroesophageal reflux disease) - HTN (hypertension) - (more content not included)... [facility] 06-17-2021 History of Present illness Narrative NEW PATIENT HISTORY AND PHYSICAL EXAM HISTORY OF PRESENT ILLNESS: Luiza Galo is a 80 year old female who presents New patient today but Saw Dr Jackson 3 years ago. Has interstim but not active. 3 , Patient with a history of OAB. She has a history of an Intertim placement that is not functioning. Previous botox injection that has been helping. Last botox injection was about 6 months. Nocturia 3-4 Will plan botox injections. Do you leak with cough, sneeze or exercise Yes Do you leak with urgency such as getting to the restroom on time or with running water Yes How many times do you urinate during the day 10 - 15 How many times do you get up to urinate at night 3 - 4 How many pads do you wear during the day 3 Do you wear pads at night Depends Do you have fecal urgency Sometimes Do you have fecal incontinence Sometimes Do you have pain with intercourse N/A Do you have urinary leakage with intercourse No What medications have you tried to help your leakage Tired Myrbeytriq didn't help What surgeries have you had for the above symptoms No REVIEW OF SYSTEMS: GENERAL:No weight loss, malaise or fevers ALLERGIC/IMMUNOLOGIC: hay fever and drug allergies HEENT: having headaches a lot RESPIRATORY: Negative for cough, hemoptysis, wheezing, COPD, dyspnea or shortness of breath CARDIOVASCULAR: Hypertension, heart bypass GASTROINTESTINAL: No nausea, vomiting, or diarrhea GENITOURINARY: See HPI MUSCULOSKELETAL: back pain and muscle pain NEUROLOGIC:Positive for numbness or tingling in the hands: and feet numbness or tingling of the feet: SKIN:psorasis GLUCOSE UA (POCT) Negative 06/17/2021 BILIRUBIN UA (POCT) Negative 06/17/2021 KETONE UA (POCT) Negative 06/17/2021 SPECIFIC GRAVITY UA (POCT) 1.015 06/17/2021 HEMOGLOBIN/BLOOD UA (POCT) Negative 06/17/2021 PH UA (POCT) 5.0 06/17/2021 PROTEIN UA (POCT) Negative 06/17/2021 UROBILINOGEN UA (POCT) 0.2 06/17/2021 NITRITE UA (POCT) Negative 06/17/2021 LEUKOCYTES UA (POCT) Negative 06/17/2021 COLOR UA (POCT) Yellow 06/17/2021 CLARITY UA (POCT) Clear 06/17/2021 MEDICATIONS: lisinopril (ZESTRIL, PRINIVIL) 5 mg tablet metoprolol succinate ER (TOPROL XL) 25 mg 24 hr tablet metoprolol succinate ER (TOPROL XL) 50 mg 24 hr tablet risperiDONE 0.25 mg ODT risperiDONE (RISPERDAL) 0.25 mg tablet sertraline (ZOLOFT) 50 mg tablet BD INSULIN SYRINGE ULTRA-FINE 1 mL 31 gauge x 5/16 syrg warfarin (COUMADIN) 2.5 mg tablet nitrofurantoin monohydrate and macrocrystal (MACROBID) 100 mg capsule Take 1 capsule by mouth twice daily. amoxicillin-clavulanic acid (AUGMENTIN) 875-125 mg per tablet atorvastatin (LIPITOR) 40 mg tablet NOVOLOG FLEXPEN U-100 INSULIN 100 unit/mL inpn XULTOPHY 100/3.6 100 unit-3.6 mg /mL (3 mL) inpn Trospium (SANCTURA SR) 60 mg cp24 Take 1 capsule by mouth once daily. INVOKANA 300 mg tablet Take 300 mg by mouth once daily. clotrimazole-betamethasone (LOTRISONE) cream Apply to affected area twice daily. APPLY TO AFFECTED AREA clonazePAM (KLONOPIN) 1 mg tablet TRUE METRIX GLUCOSE TEST STRIP test strip twice daily. MICRO THIN LANCETS 33 gauge misc twice daily. USE DIRECTED. lisinopril 2.5 mg tablet Take 2.5 mg by mouth once daily. losartan (COZAAR) 100 mg tablet Take 100 mg by mouth once daily. metoprolol tartrate, short acting, (LOPRESSOR) 25 mg tablet Take 25 mg by mouth daily at bedtime. pantoprazole DR (PROTONIX) 40 mg tablet Take 40 mg by mouth twice daily. BD INSULIN SYRINGE ULTRA-FINE 1 mL 31 gauge x 15/64 syrg rosuvastatin (CRESTOR) 20 mg tablet Take 20 mg by mouth once daily. traZODone (DESYREL) 100 mg tablet Take 100 mg by mouth daily at bedtime. venlafaxine XR (EFFEXOR XR) 150 mg 24 hr capsule Take 150 mg by mouth once daily. warfarin (COUMADIN) 2 mg tablet TAKE 1 TABLET BY MOUTH 5 DAYS A WEEK - SUN, TUES, WED, FRID & SAT zolpidem (AMBIEN) 10 mg tab oxyCODONE-acetaminophen (PERCOCET) 5-325 mg tablet insulin detemir (LEVEMIR) 100 unit/mL injection Inject subcutaneously daily at bedtime. citalopram (CELEXA) 40 mg tablet Take 40 mg by mouth once daily. HYDROcodone-acetaminophen (NORCO) 5-325 mg per tablet Take 1 tablet by mouth every 6 hours as needed. ACETAMINOPHEN (TYLENOL ARTHRITIS ORAL) Take by mouth. simvastatin (ZOCOR) 40 mg tablet Take 40 mg by mouth daily at bedtime. promethazine (PHENERGAN) 25 mg tablet Take 25 mg by mouth every 6 hours as needed. insulin glargine (LANTUS) 100 unit/mL injection Inject subcutaneously daily at bedtime. HISTORIES PAST MEDICAL HISTORY Diagnosis Date Benzodiazepine dependence, continuous ([facility]) Depression Diverticulitis DM type 2 (diabetes mellitus, type 2) ([facility]) Enuresis RADHA (generalized anxiety disorder) GERD (gastroesophageal reflux disease) HTN (hypertension) Hyperlipidemia IBS (irritable bowel syndrome) Insomnia Known medical problems c diff LBP (low back pain) OAB (overactive bladder) Obesity Opioid dependence, continuous ([facility]) MARIVEL (obstructive sleep apnea) Psoriasis RLS (restless legs syndrome) Stroke ([facility]) R frontal supraventricular FAUSTINO (stress urinary incontinence, female) Urge incontinence UTI (urinary tract infection) FAMILY HISTORY Problem Relation Age of Onset Breast Cancer Mother Hypertension Mother other (heart disease) Mother Diabetes Father Hyperlipidemia Father Diabetes Sister Hypertension Sister Diabetes Brother Hypertension Brother Diabetes Sister PAST SURGICAL HISTORY Procedure Laterality Date APPENDECTOMY CABG (3) VEIN GRAFTS & ARTERIAL GRAFT(S) 05/2017 CHOLECYSTECTOMY HYSTERECTOMY HX R oophorectomy PAST SURGICAL HISTORY OF Quadruple bypass REPAIR UMBILICAL HERNIA W TKR GINA PFC HIGHDEMAND KNEE right Social History Tobacco Use Smoking status: Former Smoker Smokeless tobacco: Never Used Substance Use Topics Alcohol use: No Drug use: No Physical Exam There were no vitals taken for this visit. ASSESSMENT/PLAN: (N39.41) Urge incontinence (primary encounter diagnosis) (R35.1) Nocturia documented in this encounter [facility] Evaluation + Plan note Future Appointments Appointment Date:09/24/2021 11:15:00 AM Scheduled Provider:ISRA OGLESBY MD Location:[facility] Appointment Type: OV Future Scheduled TestsCOVID-19 Only (AO) 03/17/21Calcium Level Ionized 08/07/21Magnesium Level 08/07/21Thyroid Stimulating Hormone 08/07/21Thyroid Stimulating Hormone 05/08/21Thyroid Stimulating Hormone 10/07/20Free T4 08/07/21Free T4 05/08/21Free T4 10/07/20A1C Hemoglobin 08/07/21A1C Hemoglobin 11/08/21Complete Blood Count 08/07/21Fr T3 08/07/21Lipid Profile 11/08/21Complete Metabolic Panel 08/07/21Complete Metabolic Panel 11/08/21 [facility] Evaluation + Plan note Future Appointments Appointment Date:11/20/2021 10:45:00 AM Scheduled Provider:ISRA OGLESBY MD Location:[facility] Appointment Type:PC OV Future Scheduled TestsCOVID-19 Only (AO) 03/17/21Calcium Level Ionized 08/07/21Magnesium Level 08/07/21Thyroid Stimulating Hormone 08/07/21Fr T4 08/07/21Urine Culture 09/24/21A1C Hemoglobin 08/07/21Complete Blood Count 08/07/21 T3 08/07/21Complete Metabolic Panel 08/07/21 [facility] Evaluation + Plan note Future Appointments Appointment Date:03/05/2022 02:30:00 PM Scheduled Provider:ISRA OGLESBY MD Location:[facility] Appointment Type:PC Wellness Primetime Enhanced Appointment Date:04/07/2022 11:00:00 AM Scheduled Provider:ISRA OGLESBY MD Location:[facility] Appointment Type:PC OV Controlled Medication Future Scheduled TestsCalcium Level Ionized 08/07/21Magnesium Level 08/07/21Thyroid Stimulating Hormone 08/07/21Fr T4 08/07/21Urine Culture 09/24/21A1C Hemoglobin 08/07/21Complete Blood Count 08/07/21Fr T3 08/07/21Complete Metabolic Panel 08/07/21COVID-19 Only (AO) 03/17/21 [facility] Evaluation + Plan note Future Appointments Appointment Date:04/07/2022 11:00:00 AM Scheduled Provider:ISRA OGLESBY MD Location:[facility] Appointment Type:PC OV Controlled Medication Diagnostic Tests PendingUrine Culture 03/24/22 Future Scheduled TestsCalcium Level Ionized 08/07/21Magnesium Level 08/07/21Thyroid Stimulating Hormone 08/07/21Free T4 08/07/21Urine Culture 09/24/21A1C Hemoglobin 08/07/21Complete Blood Count 08/07/21Fr T3 08/07/21Complete Metabolic Panel 08/07/21 [facility] Evaluation + Plan note Future Appointments Appointment Date:05/21/2022 11:00:00 AM Scheduled Provider:ISRA OGLESBY MD Location:[facility] Appointment Type:PC OV Appointment Date:07/06/2022 11:00:00 AM Scheduled Provider:ISRA OGLESBY MD Location:[facility] Appointment Type:PC OV Controlled Medication Diagnostic Tests PendingVitamin D Level 05/11/22 Future Scheduled TestsCalcium Level Ionized 08/07/21Magnesium Level 08/07/21Thyroid Stimulating Hormone 08/07/21Fr T4 08/07/21Urine Culture 09/24/21A1C Hemoglobin 08/07/21Complete Blood Count 08/07/21Fr T3 08/07/21Complete Metabolic Panel 08/07/21 [facility] Evaluation + Plan note Future Appointments Appointment Date:01/07/2023 11:30:00 AM Scheduled Provider:ISRA OGLESBY MD Location:[facility] Appointment Type:PC OV Future Scheduled TestsThyroid Stimulating Hormone 11/10/22Free T4 11/10/22A1C Hemoglobin 05/10/23Lipid Profile 05/10/23Complete Metabolic Panel 05/10/23 [facility] Evaluation + Plan note Future Appointments Appointment Date:03/11/2023 11:00:00 AM Scheduled Provider:ISRA OGLESBY MD Location:[facility] Appointment Type:PC OV Controlled Medication Appointment Date:05/13/2023 11:00:00 AM Scheduled Provider:ISRA OGLESBY MD Location:[facility] Appointment Type:PC OV Future Scheduled TestsThyroid Stimulating Hormone 11/10/22Free T4 11/10/22A1C Hemoglobin 05/10/23Lipid Profile 05/10/23Complete Metabolic Panel 05/10/23 [facility] Evaluation + Plan note Future Appointments Appointment Date:11/15/2023 11:00:00 AM Scheduled Provider:ISRA OGLESBY MD Location:[facility] Appointment Type:PC OV Follow Up Future Scheduled [id number] Hemoglobin 11/09/23Complete Blood Count 08/09/23Lipid Profile 11/09/23Complete Metabolic Panel 11/09/23XR Spine Lumbosacral 2 or 3 Views 08/09/23XR Hip 3-4 Views Bilateral 08/09/23 [facility] documented in this encounter [facility] note* Diagnosis Urge incontinence- Primary documented in this encounter [facility] note* Diagnosis Urinary tract infection without hematuria, site unspecified- Primary documented in this encounter [facility] note* Diagnosis Urge [facility]ence- [facility] N[facility] No data available for this section [facility] Hospital Discharge instructions No data available for this section [facility] Progress note No data available for this section [facility] Summary Purpose Family History No Family History Records FoundNo Family History Records Found No data available for this section No data available for this section No Family History Records Found Advance Directives No Advanced Directives Records FoundNo Advanced Directives Records FoundNo Advanced Directives Records Found Medications Administered Section Inactive Administered Medications - up to 3 most recent administrations Medication Order MAR Action Action Date Dose Rate Site cephALEXin 500 mg cap(s) (KEFLEX) 500 mg, ORAL, ONCE (UP TO 30 DAYS AMB), 1 dose, On Tue09/02/21 at 1130, Please document the antimicrobial indication: Prophylaxis Given 09/02/2021 9:30 AM EST 500 mg Oral lidocaine 20 mg/mL (2 %) 1,000 mg injection (XYLOCAINE) 1,000 mg (50 mL), OTHER, ONCE, 1 dose, On Tue09/02/21 at 1130 Given 09/02/2021 9:30 AM EST 1,000 mg Other lidocaine urojet 2 % 11 mL topical gel (XYLOCAINE, GLYDO) 11 mL, URETHRAL, ONCE (UP TO 30 DAYS AMB), 1 dose, On Tue09/02/21 at 1130, Prior to UDS procedure Given 09/02/2021 9:30 AM EST 11 mL Other onabotulinum toxin type A 200 Units injection (BOTOX) 200 Units, INTRAMUSCULAR, ONCE (UP TO 30 DAYS AMB), 1 dose, On Tue09/02/21 at 1130, REFRIGERATE - Pharmaceutical Waste: Lab Pack - Given 09/02/2021 9:30 AM EST 200 Units Other Inactive Administered Medications - up to 3 most recent administrations Medication Order MAR Action Action Date Dose Rate Site cephALEXin 500 mg cap(s) (KEFLEX) 500 mg, ORAL, ONCE (UP TO 30 DAYS AMB), 1 dose, On Tue04/06/22 at 1430, Please document the antimicrobial indication: Prophylaxis Given 04/06/2022 10:30 AM EDT 500 mg Oral lidocaine 10 mg/mL (1 %) 500 mg injection (XYLOCAINE) 500 mg (50 mL), OTHER, ONCE (UP TO 30 DAYS AMB), 1 dose, On Tue04/06/22 at 1430 Given 04/06/2022 10:30 AM EDT 500 mg Other lidocaine 20 mg/mL (2 %) 1,000 mg injection (XYLOCAINE) 1,000 mg (50 mL), OTHER, ONCE, 1 dose, On Tue04/06/22 at 1430, Instill prior to botox Given 04/06/2022 10:30 AM EDT 1,000 mg Other lidocaine urojet 2 % 11 mL topical gel (XYLOCAINE, GLYDO) 11 mL, URETHRAL, ONCE (UP TO 30 DAYS AMB), 1 dose, On Tue04/06/22 at 1430, Urethra prior to procedure Given 04/06/2022 10:30 AM EDT 11 mL Other onabotulinum toxin type A 200 Units injection (BOTOX) 200 Units, INTRAMUSCULAR, ONCE (UP TO 30 DAYS AMB), 1 dose, On Tue04/06/22 at 1430, This record documents the total dose provided to patient. See progress note for specific locations and amounts administered. REFRIGERATE - Pharmaceutical Waste: Lab Pack - Given by LIP 04/06/2022 10:30 AM EDT 200 Units Other Additional Source Comments INFORMATION SOURCE (unrecogn ized section and content) DATE CREATED AUTHOR AUTHOR'S ORGANIZ ATION 04/07/2022 [facility] DATE CREATED AUTHOR AUTHOR'S ORGANIZ ATION 09/25/2023 [facility] ([place]) Source Comments (unrecognize d section and content) In the event this informatio n is protected by the Federal Confidentiality of Alcohol and Drug Abuse Patient Records regulations: The Federal rules restrict any use of the information to criminally investigate or prosecute any alcohol or drug abuse patient.[facility] the event this information is protected by the Federal Confidentiality of Alcohol and Drug Abuse Patient Records regulations: The Federal rules restrict any use of the information to criminally investigate or prosecute any alcohol or drug abuse patient.[facility] Hospital[facility] the event this information is protected by the Federal Confidentiality of Alcohol and Drug Abuse Patient Records regulations: The Federal rules restrict any use of the information to criminally investigate or prosecute any alcohol or drug abuse patient.[facility] HospitalIn the event this information is protected by the Federal Confidentiality of Alcohol and Drug Abuse Patient Records regulations: The Federal rules restrict any use of the information to criminally investigate or prosecute any alcohol or drug abuse patient.[facility] HospitalIn the event this information is protected by the Federal Confidentiality of Alcohol and Drug Abuse Patient Records regulations: The Federal rules restrict any use of the information to criminally investigate or prosecute any alcohol or drug abuse patient.[facility] [facility] Reason for Visit (unrecogniz ed section and content) Reason Comments Appointment Patient Question Reason Comments Cystoscopy-1 Urge Urinary Incontinence Specialty Diagnoses / Procedures Referred By Valerie rosado Referred To Contact Urology / UROLOGY Diagnoses botox, 200 units Procedures CYSTOSCOPY BOTOX Frank Jackson MD [address] [place] [address] Frank Jackson MD [address] [place] [address] Referral ID Status Reason Start Date Expiration Date Visits Re quested Visits Authorized [id number] Closed 09/02/2021 12/01/2021 1 1 Reason Comments Orders Reason Comments Urge Urinary Incontinence Cystoscopy-1 Specialty Diagnoses / Procedures Referred By Valerie rosado Referred To Contact Urology / UROLOGY Diagnoses Urge incontinence cysto botox Procedures BOTULINUM TOXIN A PER 1 UNIT CYSTOSCOPY [id number] units Frank Jackson MD [address] [place] [address] Frank Jackson MD [address] [place] [address] Referral ID Status Reason Start Date Expiration Date V isits Requested Visits Authorized [id number] Authorized 04/01/2022 10/02/2022 99 99 Care Teams (unrecognized sec tion and content) Litigation Legal Assistant Relationship Specialty Start Date End Date Isra Oglesby MD [address] [place] [address] PCP - General Family Practice 07/14/12 Care Team (unrecognized sect ion and content) Personnel Name: ISRA OGLESBY MD Address: Address: [address] [place] [address] Name: Keiry Gutierrez Clerk Flor PT Care Team Personnel Name: Keiry Gutierrez Clercarl Ray PT Position: P3 Scheduling - Correspondence Review Clerk Advanced Member Role: Other Name: ISRA OGLESBY MD Position: P4 Physician - Primary Care Med Service: Active Provider Member Role: Primary Care Physician Address: Address: [address] [place] [address] Care Team Related Persons Name: GEMINI KITCHEN Name: AUDI KITCHEN Name: AUDI KITCHEN FOR RECORDS PERTAINING TO PATIENTS WHO ARE OR HAVE BEEN ENROLLED IN A CHEMICAL DEPENDENCY/SUBSTANCEABUSE PROGRAM, SOME INFORMATION MAY BE OMITTED. This clinical summary was aggregated from multiple sources. Caution should be exercised in using it in the provision of clinical care. This summary normalizes information from multiple sources, and as a consequence, information in this document may materially change the coding, format and clinical context of patient data. In addition, data may be omitted in some cases. CLINICAL DECISIONS SHOULD BE BASED ON THE PRIMARY CLINICAL RECORDS. [employer] provides no warranty or guarantee of the accuracy or completeness of information in this document.
== END | disposition home or self-care (01) ==
LOC: LAB 11:30
PROVIDERS: PCP Family Medicine; Referring Provider Nurse Practitioner Gerontology; Visit Provider Nurse Practitioner Gerontology
DX: R06.02 Shortness of breath (principal)
CPT/HCPCS: 36415; 80048

== ENCOUNTER 2023-11-20 20:09 | Emergency (ER) | payer MEDICARE, SELFPAY ==
[2023-11-20] VITALS (10 sets, daily range): BP systolic 155–243; BP diastolic 46–120; PULSE 60–77; RESP 15–19; TEMP 35.6; O2SAT 93–98; BMI 36.8
--- NOTE | 2023-11-20 20:33 | RAD_ITS ---
EXAM: XR LEFT TIBIA AND FIBULA, 2 VIEWS CLINICAL INDICATION: injury TECHNIQUE: Frontal and lateral views of the left tibia and fibula. COMPARISON: No relevant prior studies available. FINDINGS: BONES/JOINTS: Total left knee arthroplasty. No acute fracture. No subluxation. Normal alignment. No sclerotic or destructive changes observed. SOFT TISSUES: Unremarkable. No soft tissue swelling or gas. No radiopaque foreign body. VASCULATURE: Vascular calcifications. RAD/Tibia & Fibula 2 Views IMPRESSION: No acute findings in the left tibia and fibula or surrounding soft tissues. Electronically Signed: Jose Queen MD at 21:44 EST ,
--- NOTE | 2023-11-20 20:34 | EDS_ITS ---
HPI History of Present Illness Chief Complaint: Lower Extremity Injury Informant: patient Narrative Narrative: Patient presents secondary to fall with hematoma on leg. She fell recently striking her left leg. She has a bruised area with a hematoma as well. She describes significant pain to the area. She also noted some pain in her low back today. She is currently on Eliquis secondary to a history of paroxysmal A- fib and pulmonary embolism. She is on hydrocodone for pain without significant improvement. 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 Morbid obesity MARIVEL (obstructive sleep apnea) Osteoarthritis Paroxysmal atrial fibrillation Pulmonary embolism Stroke Home Medications atorvastatin 40 mg tablet 40 mg PO QDAY cholesterol #30 tabs 03/02/18 [Rx Last Taken 05/17/23] alprazolam 0.5 mg tablet 0.5 mg PO 4X/DAY anxiety 11/23/19 [History Last Taken 05/12/23] montelukast 10 mg tablet 10 mg PO DAILY allergies 12/29/20 [History Last Taken Unknown] nitroglycerin 0.4 mg sublingual tablet (Nitrostat) 0.4 mg sublingual Q5-15M PRN chest pain #25 tabs 10/21/21 [Rx Last Taken Unknown] BP cuff #1 ea 01/20/22 [Rx Last Taken Unknown] cholecalciferol (vitamin D3) 125 mcg (5,000 unit) capsule 125 mcg PO DAILY vitamin 01/20/22 [History Last Taken Unknown] escitalopram oxalate 10 mg tablet (Lexapro) 10 mg PO DAILY depression 01/20/22 [History Last Taken Unknown] acetaminophen 500 mg tablet (Tylenol Extra Strength) 1,000 mg PO Q4H PRN pain 05/19/22 [History Last Taken Unknown] ropinirole 1 mg tablet 2 mg PO BID pain 05/19/22 [History Last Taken Unknown] loperamide 2 mg capsule (Anti-Diarrheal (loperamide)) 4 mg PO Q2H PRN diarrhea 05/16/23 [History Last Taken Unknown] guselkumab 100 mg/mL subcutaneous syringe (Tremfya) 100 mg subcut .monthly 08/14/23 [History Last Taken Unknown] insulin degludec 100 unit/mL (3 mL) subcutaneous pen (Tresiba FlexTouch U-100 insulin) 30 unit subcut DAILY 08/14/23 [History Last Taken 08/13/23] losartan 100 mg tablet 25 mg PO DAILY BP 08/14/23 [History Last Taken Unknown] vibegron 75 mg tablet (Gemtesa) 75 mg PO DAILY 08/14/23 [History Last Taken 08/13/23] ondansetron 8 mg disintegrating tablet 8 mg PO Q8H PRN nausea and vomiting #20 tabs 08/15/23 [Rx Last Taken Unknown] furosemide 40 mg tablet (Lasix) 40 mg PO DAILY #3 tabs 10/24/23 [Rx Last Taken Unknown] metoprolol succinate 50 mg tablet,extended release 24 hr 50 mg PO DAILY 10/24/23 [History Last Taken Unknown] trazodone 150 mg tablet 150 mg PO QHS sleep 10/24/23 [History Last Taken Unknown] apixaban 5 mg tablet (Eliquis) 5 mg PO BID blood thinner #180 tabs 10/25/23 [Rx Last Taken Unknown] pantoprazole 40 mg tablet,delayed release mg PO 11/10/23 [History Last Taken Unknown] tizanidine 4 mg capsule 4 mg PO Q8H PRN 11/10/23 [History Last Taken Unknown] hydrocodone-acetaminophen 5-325mg 5mg-325mg tab 11/20/23 [History Last Taken Unknown] Allergy/AdvReac Type Severity Reaction Status Date / Time insulin isophane (NPH) Allergy Severe heart burn Verified 11/20/23 20:13 Anesthetics - Amide Type - Allergy NEEDS Verified 11/20/23 20:13 Select A FOLLOW-UP Anesthetics - Tyra Type- Allergy NEEDS Verified 11/20/23 20:13 Parabens FOLLOW-UP latex Allergy Unknown Verified 11/20/23 20:13 promethazine [From Phenergan] Allergy PT UNSURE Verified 11/20/23 20:13 OF REACTION sitagliptin phosphate Allergy Unknown Verified 11/20/23 20:13 [From Januvia] insulin degludec AdvReac Mild Nausea Verified 11/20/23 20:13 [From Xultophy 100/3.6] liraglutide AdvReac Mild Nausea Verified 11/20/23 20:13 [From Xultophy 100/3.6] atorvastatin [From Lipitor] AdvReac Unknown Unknown Verified 11/20/23 20:13 codeine AdvReac Unknown Unknown Verified 11/20/23 20:13 tizanidine AdvReac Unknown Unknown Verified 11/20/23 20:13 Family History Father CAD (coronary artery disease) Mother CAD (coronary artery disease) Brother CAD (coronary artery disease) Surgical History H/O coronary artery bypass surgery (~06/01/17) History of bilateral cataract extraction History of cholecystectomy History of knee surgery History of total hysterectomy Social History household members: none housing: assisted living facility Smoking Status: Former smoker how long ago did patient quit smokin years ago second hand exposure: Yes alcohol intake: never substance use type: does not use caffeine: No ROS ROS ED Constitutional Constitutional ED: Denies chills or fever(s) Eyes Eyes: Denies discharge from eye(s) ENT ENT ED: Denies discharge from eye(s), rhinorrhea or sore throat Cardiovascular Cardiovascular: Denies chest pain or palpitations Respiratory/Chest Respiratory/Chest: Denies cough or dyspnea Gastrointestinal Gastrointestinal: Denies abdominal pain, nausea or vomiting Musculoskeletal Musculoskeletal: Reports extremity pain; Denies back pain Integumentary Reports other Details: Hematoma and ecchymosis left leg ; Denies Abrasions or rash Neurologic Neurologic: Denies headache(s) or weakness Psychiatric Psychiatric: Denies anxiety or depression Allergic/Immunologic Allergic/Immunologic ED: Denies lip swelling or urticaria EXAM Physical Exam Const Vital Signs: 11/20/23 20:14 11/20/23 20:18 11/20/23 20:30 Temperature 96.0 F L 96.0 F L Temperature Source Temporal Temporal Pulse Rate 65 65 61 Respiratory Rate 18 18 16 Blood Pressure 198/120 H 198/120 H 221/100 H Blood Pressure Mean 146 146 140 Pulse Ox 95 95 98 Oxygen Delivery Method Room Air Room Air Room Air 11/20/23 21:22 11/20/23 21:35 11/20/23 21:45 Temperature Temperature Source Pulse Rate 63 61 60 Respiratory Rate 17 15 16 Blood Pressure 243/72 H 221/65 H 209/67 H Blood Pressure Mean 129 117 114 Pulse Ox 95 96 96 Oxygen Delivery Method Room Air Room Air 11/20/23 22:10 11/20/23 22:57 11/20/23 23:15 Temperature Temperature Source Pulse Rate 68 75 77 Respiratory Rate 16 16 19 H Blood Pressure 201/79 H 173/108 H 155/46 H Blood Pressure Mean 119 129 82 Pulse Ox 95 93 95 Oxygen Delivery Method Room Air Room Air Room Air 11/20/23 23:22 11/21/23 00:16 Temperature 97.1 F L Temperature Source Pulse Rate 73 79 Respiratory Rate 18 15 Blood Pressure 161/54 H 168/75 H Blood Pressure Mean 89 106 Pulse Ox 94 95 Oxygen Delivery Method Room Air Positive well nourished and well developed General Appearance ED: well developed HEENT Reports moist mucous membranes Eyes EOMs intact bilaterally Chest Wall inspection of chest normal and palpation of chest normal Resp normal respiratory effort and clear to auscultation bilaterally Cardio regular rate and regular rhythm GI non-tender Palpation: soft Extremity Extremity Narrative: Ecchymosis to the left mid sam with small hematoma over the area. Good distal pulses. No tenderness of the knee with well-healed old surgical incision. Neuro oriented x3 Neuro Narrative: No focal neurologic deficit. MDM MDM MDM Narrative Medical decision making narrative: Patient given a dose of fentanyl for pain. Labwork obtained to evaluate for leukocytosis, anemia, and electrolyte derangement. X-rays of the lumbar spine and the left tib-fib obtained to evaluate for potential fracture. History & Record Review Discussion w/independent historian: Patient and Family Additional record(s) reviewed:: Prior labs Lab Data Attestation: I reviewed the patient's lab results. Labs: Laboratory Results - last 24 hr 11/20/23 20:44 WBC 6.9 RBC 4.07 L Hgb 11.4 L Hct 36.2 L MCV 88.9 MCH 28.0 MCHC 31.5 L RDW Std Deviation 45.7 H RDW Coeff of Sky 14.2 Plt Count 222 MPV 10.6 Immature Gran % (Auto) 0.300 Neut % (Auto) 53.4 Lymph % (Auto) 38.0 Chester % (Auto) 5.8 Eos % (Auto) 1.9 Baso % (Auto) 0.6 Absolute Neuts (auto) 3.7 Absolute Lymphs (auto) 2.64 Nucleated RBC % 0 PT 15.6 H INR 1.2 APTT 31.8 Sodium 141 Potassium 4.2 Chloride 109 H Carbon Dioxide 29.0 Anion Gap 3 L BUN 17 Creatinine 1.06 H Estim Creat Clear Calc 40.41 Est GFR (MDRD) Af Amer 64 Est GFR (MDRD) Non-Af 53 L BUN/Creatinine Ratio 16.0 Glucose 169 H Calcium 9.1 Radiography Diagnostic Testing: Clinical Impression(s) from Imaging Studies Tibia/Fibula X-Ray 11/20/23 20:33 IMPRESSION: No acute findings in the left tibia and fibula or surrounding soft tissues. Electronically Signed: Jose Queen MD at 21:44 EST , Lumbar Spine X-Ray 11/20/23 21:10 IMPRESSION: Degenerative changes of the spine, as detailed above. L4 compression deformity. This is new since the prior CT. MRI can better evaluate. Electronically Signed: Jose Queen MD at 21:46 EST , Treatment and Re-Evaluation :: Lumbar spine x-rays per my interpretation reveal chronic changes with calcified aorta. Radiology does feel there is evidence of a compression fracture at L4 which is new when compared to prior study from May 2023. Tib-fib x-ray per my interpretation feels no evidence of bony fracture. Radiology interpretation reviewed and agrees. CBC was normal white count at 6.9 with a hemoglobin 11.4. This is consistent with her baseline. INR is 1.2. Chemistry studies significant only for glucose of 169. Patient was given a small dose of fentanyl here for pain along with a dose of labetalol for blood pressure. Blood pressure did remain elevated and she was also given a dose of hydralazine and another small dose of fentanyl. At this time patient states her pain overall is improved. She is, started to complain of some back pain from the bed. She would prefer to go home. She has hydrocodone at home that she will continue. Gautam wrap was applied to the left leg and she was advised that the hematoma would slowly reabsorb. Lidoderm patches placed on her back to help with pain. I did give her information for Dr. Sinclair for follow-up if needed. Discharge Plan Triage Chief Complaint: Lower Extremity Injury ED Provider: Lesley Lopez Dx/Rx/DC Orders Clinical Impression: Closed compression fracture of L4 vertebra, Hematoma of leg, Fall, Hypertension Instructions: ED Fracture, Vertebral Compression, ED Hematoma Prescriptions: No Action alprazolam 0.5 mg tablet 0.5 mg PO 4X/DAY montelukast 10 mg tablet 10 mg PO DAILY nitroglycerin [Nitrostat] 0.4 mg tablet, sublingual 0.4 mg sublingual Q5-15M PRN (Reason: chest pain) Qty: 25 3RF Rx Instructions: do not exceed 3 doses per episode cholecalciferol (vitamin D3) 125 mcg (5,000 unit) capsule 125 mcg PO DAILY escitalopram oxalate [Lexapro] 10 mg tablet 10 mg PO DAILY (DME) BP cuff See Rx Instructions .Route .MEDSUPPLY Qty: 1 0RF Hold Instructions: Ordered Rx Instructions: As directed ropinirole 1 mg tablet 2 mg PO BID acetaminophen [Tylenol Extra Strength] 500 mg tablet 1,000 mg PO Q4H PRN (Reason: pain) trazodone 150 mg tablet 150 mg PO QHS metoprolol succinate 50 mg tablet extended release 24 hr 50 mg PO DAILY Eliquis 5 mg tablet 5 mg PO BID Qty: 180 4RF pantoprazole 40 mg tablet,delayed release (DR/EC) PO Patient Comments: TAKE 1 TABLET BY MOUTH EVERY DAY tizanidine 4 mg capsule 4 mg PO Q8H PRN loperamide [Anti-Diarrheal (loperamide)] 2 mg capsule 4 mg PO Q2H PRN (Reason: diarrhea) Rx Instructions: after first loose stool, 1 tablet after each subsequent loose stool but no more than 4 tablets in 24 hours insulin degludec [Tresiba FlexTouch U-100] 100 unit/mL (3 mL) insulin pen 30 unit subcut DAILY Gemtesa 75 mg tablet 75 mg PO DAILY losartan 100 mg Tablet 25 mg PO DAILY Tremfya 100 mg/mL syringe 100 mg subcut .monthly ondansetron 8 mg tablet,disintegrating 8 mg PO Q8H PRN (Reason: nausea and vomiting) Qty: 20 0RF hydrocodone-acetaminophen 5-325 mg tablet atorvastatin 40 mg tablet 40 mg PO QDAY Qty: 30 6RF furosemide [Lasix] 40 mg tablet 40 mg PO DAILY Qty: 3 0RF Primary Care Provider: Isra Rubalcava Referrals: Last Sinclair DO [Med Staff - Active Staff] - As Needed Isra Rubalcava MD [Primary Care Provider] - 1 Week Disposition Disposition: Home, Self Care Discharge Date/Time: 11/21/23 00:22
[2023-11-20] MEDS: fentaNYL 100 MCG/2 ML Ampul 25 MCG IV ×2 (20:42→22:41)
[2023-11-20 20:57] LABS: Absolute Lymphocyte Count 2.64 X10^3/uL (0.83-4.51); Absolute Neutrophil Count 3.7 X10^3/uL (2.0-7.7); Basophil# 0.04 X10^3/uL; Basophil% 0.6 % (0-1); Eosinophil# 0.13 X10^3/uL; Eosinophils% 1.9 % (0-5); Hematocrit 36.2 % (37-47); Hemoglobin 11.4 g/dL (12.0-15.0); Lymphocyte # 2.64 X10^3/ul (0.83-4.51); Mean Corp Hgb Conc 31.5 g/dL (32-36); Mean Corpuscular Volume 88.9 fL (81-99); Mean Platelet Vol. 10.6 fl (6.2-12.0); Monocyte% 5.8 % (0-10); NRBC Flagged by Analyzer 0 % (0-5); Neutrophil # 3.71 X10^3/uL (2.7-7.7); Neutrophil % 53.4 % (47-70); Platelet Count 222 K/mm3 (150-450); RBC Distribution Width CV 14.2 % (11.6-14.6); RBC Distribution Width SD 45.7 fl (35.1-43.9); Red Blood Count 4.07 M/mm3 (4.2-5.4); White Blood Count 6.9 K/mm3 (4.4-11.0)
[2023-11-20 21:01] LABS: International Normalized Ratio 1.2; Prothrombin Time (Protime)PT. 15.6 SECONDS (11.7-14.9)
[2023-11-20 21:03] LABS: Partial Thromboplast Time 31.8 Seconds (24.1-36.2)
[2023-11-20 21:07] LABS: Anion Gap 3 (5-15); BUN 17 mg/dL (7-18); Calcium,Total 9.1 mg/dL (8.5-10.1); Chloride 109 mmol/L (98-107); Creatinine, Serum 1.06 mg/dL (0.55-1.02); EST Glomerular Filtration Rate 53 mL/min (>60); Est Glom Filt Rate - Afr Amer 64 mL/min (>60); Estimated Creatinine Clearance 40.41 ml/min; Glucose 169 mg/dL (74-106); Potassium 4.2 mmol/L (3.5-5.1); Sodium Level 141 mmol/L (136-145)
--- NOTE | 2023-11-20 21:10 | RAD_ITS ---
STUDY: X-RAY - LUMBAR SPINE REASON FOR EXAM: Female, 83 years old. pain TECHNIQUE: XR Spine Lumbar 2 Views COMPARISON: CT 05/13/2023. FINDINGS: Normal lumbar lordosis. There is no substantial scoliosis. There is a normal alignment of the vertebrae. Biliary stent in place. The gallbladder is surgically absent. There is a right side sided subcutaneous implanted electronic device with leads extending into the spinal canal. This is likely an SCS (spinal cord stimulator). There is multilevel endplate spondylosis of the lumbar vertebrae. There is multi-level degenerative disc disease with multi-level disc space narrowing. There are atherosclerotic vascular calcifications. L4 compression deformity. This is new since the prior CT. MRI can better evaluate. The soft tissue structures are unremarkable. RAD/Lumbar Spine 2 or 3 Views IMPRESSION: Degenerative changes of the spine, as detailed above. L4 compression deformity. This is new since the prior CT. MRI can better evaluate. Electronically Signed: Jose Qeuen MD at 21:46 EST ,
--- OUTSIDE RECORDS SUMMARY | 2023-11-20 21:13 | XMS RPT_ITS | CCD ---
Author Name Unknown Address [address] [place] [address] Organization [facility] Care Team Providers Care Wax Ball Molder Name Role Phone BOLOGNA, FRANK A Unavailable [...] Isra Oglesby MD Primary Care Provider 1( [phone] ISRA OGLESBY MD Primary Care Physician Flor Gutierrez PT Unavailable Unavailable ISRA OGLESBY MD Primary Care Unavailable ISRA OGLESBY MD Attending Unavailable ISRA OGLESBY MD Primary Care Unavailable ISRA OGLESBY MD Attending Unavailable ISRA OGLESBY MD Primary Care Unavailable ISRA OGLESBY MD Attending Unavailable SIRA OGLESBY MD Primary Care Unavailable ISRA OGLESBY MD Attending Unavailable ISRA OGLESBY MD Primary Care Unavailable INVER [place] KEVIN LERKVNG Attending UnavailISRA Carty MD Primary Care Unavailable ISRA OGLESBY MD Attending Unavailable ISRA OGLESBY MD Primary Care Unavailable ISRA OGLESBY MD Attending Unavailable KATALINA MANCINI Attending Unavailable ISRA OGLESBY MD Primary Care Unavailable Allergies Allergy Classification Reported Allergen(s) Allergy Type Date of Onset Reaction(s) Facility (15 sources) codeine; 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: [CODEINE] Drug Allergy 2 Other: See Comments [facility] Repository (15 sources) Latex; 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: [LATEX] Propensity to adverse reactions (disorder) 8 Hives [facility] Repository (6 sources) metFORMIN; 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: [METFORMIN] Drug Allergy 7 Unknown [facility] Repository (15 sources) SITagliptin; 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: [SITAGLIPTIN] Drug Allergy 7 Unknown [facility] Repository (9 sources) Promethazine; 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: [promethazine] Drug Allergy [facility] (9 sources) tiZANidine; 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: [tizanidine] Drug Allergy SICK, DIZZINESS [facility] Medications Current Medications Medication Drug Class(es) Dates Sig (Normalized) Sig (Original) acetaminophen 500 mg oral tablet (12 sources) Start: 02-18-2023 Tylenol Extra Strength 500 mg oral tablet Dose : 1,000 mg = 2 tab(s), Oral, q4h, PRN as needed for pain, # 120 tab(s), 1 Refill(s), Pharmacy: [facility] [place] - [id number], 155.5, cm, 02/11/23 10:54:00 EDT, Height, kg, [...] Onset: 03-04-2023 Episodic Other aftercare (2 sources) half-way (current) use of anticoagulants; 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: [meterman (current) use of anticoagulants] Onset: 05-02-2023 Episodic Unclassified (1 source) Low back pain, unspecified; 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: [Low back pain, unspecified] Onset: 2023 Results Test Name Value Interpretation Reference Range Facil ity Vital Signs Date Time Vital Sign Value Performing Clinician Faci lity 04-06-2022 10:39-0400 Body height 157.5 cm Frank Jackson MD Work Phone: [facility] 04-06-2022 10:39-0400 Body weight 83.92 kg Frank Jackson MD Work Phone: [facility] 04-06-2022 10:39-0400 Diastolic blood pressure 84 mm[Hg] Frank Jackson MD Work Phone: [facility] 04-06-2022 10:39-0400 Systolic blood pressure 152 mm[Hg] Frank Jackson MD Work Phone: [facility] 09-02-2021 09:09-0500 Body height 157.5 cm Frank Jackson MD Work Phone: [facility] 09-02-2021 09:09-0500 Body weight 83.92 kg Frank Jackson MD Work Phone: [facility] 09-02-2021 09:09-0500 Diastolic blood pressure 70 mm[Hg] Frank Jackson MD Work Phone: [facility] 09-02-2021 09:09-0500 Systolic blood pressure 130 mm[Hg] Frank Jackson MD Work Phone: [facility] 06-17-2021 13:39-0400 Body height 157.5 cm Frank Jackson MD Work Phone: [facility] 06-17-2021 13:39-0400 Body weight 83.92 kg Frank Jackson MD Work Phone: [facility] 06-17-2021 13:39-0400 Diastolic blood pressure 80 mm[Hg] Frank Jackson MD Work Phone: [facility] 06-17-2021 13:39-0400 Systolic blood pressure 126 mm[Hg] Frank Jackson MD Work Phone: [facility] Encounters Encounter Date Encounter Type Care Provider Facility Start: 09-22-2023 End: 09-23-2023 ambulatory KATALINA MANCINI Facility:B Start: 09-22-2023 End: 09-22-2023 Patient encounter procedure ISRA OGLESBY MD [facility] Start: 2023 End: 08-14-2023 ambulatory ISRA OGLESBY MD Facility:B Start: 2023 End: 08-13-2023 Outreach Lab ISRA OGLESBY MD [facility] Start: 08-04-2023 End: 08-05-2023 ambulatory ISRA OGLESBY MD Facility:B Start: 05-02-2023 End: 05-07-2023 ambulatory ISRA OGLESBY MD Facility:B Start: 03-04-2023 End: 03-09-2023 ambulatory ISRA OGLESBY MD Facility:B Start: 03-04-2023 End: 03-08-2023 Outreach Lab ARIANE RAMIREZ CONTACT LENS 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 OPERATOR-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 SERVICE AIDE [facility] Start: 12-17-2022 End: 12-18-2022 ambulatory ISRA OGLESBY MD Facility:B Start: 12-17-2022 End: 12-17-2022 Patient encounter procedure ISRA OGLESBY MD [facility] Start: 11-05-2022 End: 11-06-2022 ambulatory ISRA OGLESBY MD Facility:B Start: 05-11-2022 End: 05-11-2022 Patient encounter procedure ISRA OGLESBY MD [facility] Start: 04-06-2022 End: 04-06-2022 Patient [...] Urge incontinence Expected: 09/29/2022 (Approximate), Expires: 11/29/2022 [facility] Work Phone: Immunizations Immunization Date Immunization Notes Care Provider Fa [facility] 05-26-2023 SARS-CoV-2 (CV19)[id number] bivalent vac 1 ISRA OGLESBY MD [facility] Payers Date Payer Category Payer Unknown [id number] 2016 Unknown [id number] 1942 Unknown [id number] 2.16.8 40.1.019945.3.579.2.278 1942 Unknown [id number] 2.16.8 40.1.886414.3.579.2.278 1942 Unknown [id number] 2.16.8 40.1.821729.3.579.2.278 1942 Unknown [id number] 2.16.8 40.1.395969.3.579.2.278 1942 Unknown [id number] 2.16.8 40.1.353703.3.579.2.278 1942 Unknown [id number] 2.16.8 40.1.208931.3.579.2.278 1942 Unknown [id number] 2.16.8 40.1.480179.3.579.2.278 1942 Unknown [id number] 2.16.8 40.1.073083.3.579.2.278 1942 Unknown [id number] 2.16.8 40.1.416214.3.579.2.278 1942 Unknown [id number] 2.16.8 40.1.090065.3.579.2.278 1942 Unknown [id number] 2.16.8 40.1.702240.3.579.2.278 1942 Unknown [id number] 2.16.8 40.1.888579.3.579.2.278 1942 Unknown [id number] 2.16.8 40.1.018918.3.579.2.278 1942 Unknown [id number] 2.16.8 40.1.550492.3.579.2.278 1942 Unknown [id number] 2.16.8 40.1.817287.3.579.2.278 1942 Unknown [id number] 2.16.8 40.1.665843.3.579.2.278 1942 Unknown [id number] 2.16.8 40.1.455521.3.579.2.278 1942 Unknown [id number] 2.16.8 40.1.576919.3.579.2.278 1942 Unknown [id number] 2.16.8 40.1.725268.3.579.2.627 1942 Unknown [id number] 2.16.8 40.1.726895.3.579.2.627 1942 Unknown [id number] 2.16.8 40.1.461024.3.579.2.627 1942 Unknown [id number] 2.16.8 40.1.349482.3.579.2.627 1942 Unknown [id number] 2.16.8 40.1.655168.3.579.2.627 1942 Unknown [id number] 2.16.8 40.1.990893.3.579.2.627 1942 Unknown [id number] 2.16.8 40.1.198338.3.579.2.627 1942 Unknown [id number] 2.16.8 40.1.061275.3.579.2.627 Social History Date Type Detail Facility Start: 08-19-2017 End: 06-17-2021 Tobacco smoking status [facility] Former smoker [facility] Medical Equipment Procedure Code Equipment Code Equipment Origin al Text Equipment Identifier Dates Start: 03-17-2017 Clinical Notes 06-17-2021 to 08-10-2023 Maggi Ellington RN - 04/06/2022 2:09 PM Antionette Ellington RN - 04/06/2022 10:41 AM EDZach [...] Locations *1: This test was performed at: [address], [address]- , [facility] ([place]) 03-05-2023 Note . MICRO - Microbiology PROCEDURE: [...] Locations *1: This test was performed at: [address], [facility]- , [facility] ([place]) 04-06-2022 Nurse Note Patient straight catheterized for [...] discomfort is NA documented in this encounter [facility] 04-06-2022 Note HNO ID: [id number] Author: Frank Jackson MD Service: ? Author [...] Procedure Plan Instruction Sheet Given: Post Cystoscopy [facility] 04-06-2022 History of Present illness Narrative OPERATIVE [...] Given: Post Cystoscopy documented in this encounter [facility] 03-23-2022 Miscellaneous Notes Pt informed [...] Amanda Bassett Ma documented in this encounter [facility] 09-02-2021 Nurse Note Patient straight [...] discomfort is NA documented in this encounter [facility] 09-02-2021 Note HNO ID: [id number] Author: Frank Jackson MD Service: ? Author [...] Procedure Plan Instruction Sheet Given: Post Cystoscopy [facility] 09-02-2021 Procedure note Procedure(s): BOTOX Pre-Procedure Diagnose(s): [...] Given: Post Cystoscopy documented in this encounter [facility] 08-19-2021 Miscellaneous Notes Patient has an upcoming appointment and wondered if she needed to stop her coumadin- she doesn't, patient informed. Maggi Vega RN documented in this encounter [facility] 06-17-2021 Note HNO ID: [id number] Author: Frank Jackson MD Service: ? Author [...] HISTORY Diagnosis Date - Benzodiazepine dependence, continuous ([facility]) - Depression - Diverticulitis - DM type 2 (diabetes mellitus, type 2) ([facility]) - Enuresis - RADHA (generalized anxiety disorder) - GERD (gastroesophageal reflux disease) - HTN (hypertension) - (more content not included)... [facility] 06-17-2021 History of Present illness Narrative NEW [...] MEDICAL HISTORY Diagnosis Date Benzodiazepine dependence, continuous ([facility]) Depression Diverticulitis DM type 2 (diabetes mellitus, type 2) ([facility]) Enuresis RADHA (generalized anxiety disorder) GERD (gastroesophageal reflux disease) HTN (hypertension) Hyperlipidemia IBS (irritable bowel syndrome) Insomnia Known medical problems c diff LBP (low back pain) OAB (overactive bladder) Obesity Opioid dependence, continuous ([facility]) MARIVEL (obstructive sleep apnea) Psoriasis RLS (restless legs syndrome) Stroke ([facility]) R frontal supraventricular FAUSTINO (stress urinary incontinence, [...] diagnosis) (R35.1) Nocturia documented in this encounter [facility] Evaluation + Plan note Future Appointments Appointment Date:09/24/2021 11:15:00 AM Scheduled Provider:ISRA OGLESBY MD Location:[facility] Appointment Type: OV Future Scheduled TestsCOVID-19 Only (AO) 03/17/21Calcium Level Ionized 08/07/21Magnesium Level 08/07/21Thyroid Stimulating Hormone 08/07/21Thyroid Stimulating Hormone 05/08/21Thyroid Stimulating Hormone 10/07/20Free T4 08/07/21Free T4 05/08/21Free T4 10/07/20A1C Hemoglobin 08/07/21A1C Hemoglobin 11/08/21Complete Blood Count 08/07/21Fr T3 08/07/21Lipid Profile 11/08/21Complete Metabolic Panel 08/07/21Complete Metabolic Panel 11/08/21 [facility] Evaluation + Plan note Future Appointments Appointment Date:11/20/2021 10:45:00 AM Scheduled Provider:ISRA OGLESBY MD Location:[facility] Appointment Type:PC OV Future Scheduled TestsCOVID-19 Only (AO) 03/17/21Calcium Level Ionized 08/07/21Magnesium Level 08/07/21Thyroid Stimulating Hormone 08/07/21Fr T4 08/07/21Urine Culture 09/24/21A1C Hemoglobin 08/07/21Complete Blood Count 08/07/21 T3 08/07/21Complete Metabolic Panel 08/07/21 [facility] Evaluation + Plan note Future Appointments Appointment Date:03/05/2022 02:30:00 PM Scheduled Provider:ISRA OGLESBY MD Location:[facility] Appointment Type:PC Wellness Primetime Enhanced Appointment Date:04/07/2022 11:00:00 AM Scheduled Provider:ISRA OGLESBY MD Location:[facility] Appointment Type:PC OV Controlled Medication Future Scheduled TestsCalcium Level Ionized 08/07/21Magnesium Level 08/07/21Thyroid Stimulating Hormone 08/07/21Fr T4 08/07/21Urine Culture 09/24/21A1C Hemoglobin 08/07/21Complete Blood Count 08/07/21Fr T3 08/07/21Complete Metabolic Panel 08/07/21COVID-19 Only (AO) 03/17/21 [facility] Evaluation + Plan note Future Appointments Appointment Date:04/07/2022 11:00:00 AM Scheduled Provider:ISRA OGLESBY MD Location:[facility] Appointment Type:PC OV Controlled Medication Diagnostic Tests PendingUrine Culture 03/24/22 Future Scheduled TestsCalcium Level Ionized 08/07/21Magnesium Level 08/07/21Thyroid Stimulating Hormone 08/07/21Free T4 08/07/21Urine Culture 09/24/21A1C Hemoglobin 08/07/21Complete Blood Count 08/07/21Fr T3 08/07/21Complete Metabolic Panel 08/07/21 [facility] Evaluation + Plan note Future Appointments [...] Count 08/07/21Fr T3 08/07/21Complete Metabolic Panel 08/07/21 [facility] Evaluation + Plan note Future Appointments Appointment Date:01/07/2023 11:30:00 AM Scheduled Provider:ISRA OGLESBY MD Location:[facility] Appointment Type:PC OV Future Scheduled TestsThyroid Stimulating Hormone 11/10/22Free T4 11/10/22A1C Hemoglobin 05/10/23Lipid Profile 05/10/23Complete Metabolic Panel 05/10/23 [facility] Evaluation + Plan note Future Appointments Appointment Date:03/11/2023 11:00:00 AM Scheduled Provider:ISRA OGLESBY MD Location:[facility] Appointment Type:PC OV Controlled Medication Appointment Date:05/13/2023 11:00:00 AM Scheduled Provider:ISRA OGLESBY MD Location:[facility] Appointment Type:PC OV Future Scheduled TestsThyroid Stimulating Hormone 11/10/22Free T4 11/10/22A1C Hemoglobin 05/10/23Lipid Profile 05/10/23Complete Metabolic Panel 05/10/23 [facility] Evaluation + Plan note Future Appointments Appointment Date:11/15/2023 11:00:00 AM Scheduled Provider:ISRA OGLESBY MD Location:[facility] Appointment Type:PC OV Follow Up Future Scheduled [id number] Hemoglobin 11/09/23Complete Blood Count 08/09/23Lipid Profile 11/09/23Complete Metabolic Panel 11/09/23XR Spine Lumbosacral 2 or 3 Views 08/09/23XR Hip 3-4 Views Bilateral 08/09/23 [facility] documented in this encounter [facility] note* Diagnosis Urge incontinence- Primary documented in this encounter [facility] note* Diagnosis Urinary tract infection without hematuria, site unspecified- Primary documented in this encounter [facility] note* Diagnosis Urge incontinence- [facility] N[facility] No data available for this section [facility] Hospital Discharge instructions No data available for this section [facility] Progress note No data available for this section [facility] Summary Purpose Family History No Family History [...] DATE CREATED AUTHOR AUTHOR'S ORGANIZ ATION 04/07/2022 [facility] DATE CREATED AUTHOR AUTHOR'S ORGANIZ ATION 09/25/2023 [facility] ([place]) Source Comments (unrecognize d section and content) In the event this informatio n is protected by the Federal Confidentiality of Alcohol and Drug Abuse Patient Records regulations: The Federal rules restrict any use of the information to criminally investigate or prosecute any alcohol or drug abuse patient.[facility] the event this information is protected by the Federal Confidentiality of Alcohol and Drug Abuse Patient Records regulations: The Federal rules restrict any use of the information to criminally investigate or prosecute any alcohol or drug abuse patient.[facility] the event this information is protected by the Federal Confidentiality of Alcohol and Drug Abuse Patient Records regulations: The Federal rules restrict any use of the information to criminally investigate or prosecute any alcohol or drug abuse patient.[facility] the event this information is protected by the Federal Confidentiality of Alcohol and Drug Abuse Patient Records regulations: The Federal rules restrict any use of the information to criminally investigate or prosecute any alcohol or drug abuse patient.[facility] the event this information is protected by the Federal Confidentiality of Alcohol and Drug Abuse Patient Records regulations: The Federal rules restrict any use of the information to criminally investigate or prosecute any alcohol or drug abuse patient.[facility] Reason for Visit (unrecogniz ed section and content) Reason Comments Appointment Patient Question Reason Comments Cystoscopy-1 Urge Urinary Incontinence Specialty Diagnoses / Procedures Referred By Valerie rosado Referred To Contact Urology / UROLOGY Diagnoses botox, 200 units Procedures CYSTOSCOPY BOTOX Frank Jackson MD [address] [place] [address] Frank Jackson MD [address] [place] [address] Referral ID Status Reason Start Date Expiration Date Visits Re quested Visits Authorized [id number] Closed 09/02/2021 12/01/2021 1 1 Reason Comments Orders Reason Comments Urge Urinary Incontinence Cystoscopy-1 Specialty Diagnoses / Procedures Referred By Valerie rosado Referred To Contact Urology / UROLOGY Diagnoses Urge incontinence cysto botox Procedures BOTULINUM TOXIN A PER 1 UNIT CYSTOSCOPY [id number] units Frank Jackson MD [address] [place] [address] Frank Jackson MD [address] [place] [address] Referral ID Status Reason Start Date Expiration Date V isits Requested Visits Authorized [id number] Authorized 04/01/2022 10/02/2022 99 99 Care Teams (unrecognized sec tion and content) Wax Ball Molder Relationship Specialty Start Date End Date Isra Oglesby MD [address] [place] [address] PCP - General Family Practice 07/14/12 Care Team (unrecognized sect ion and content) Personnel Name: ISRA OGLESBY MD Address: Address: [address] [place] [address] Name: Keiry Gutierrez Clerk Flor PT Care Team Personnel Name: Keiry Gutierrez Clercarl Ray PT Position: P3 Scheduling - Forensic Anthropologist Advanced Member Role: Other Name: ISRA OGLESBY MD Position: P4 Physician - Primary Care Med Service: Active Provider Member Role: Primary Care Physician Address: Address: [address] [place] [address] Care Team Related Persons Name: GEMINI [...] BE BASED ON THE PRIMARY CLINICAL RECORDS. [employer] provides no warranty or guarantee of the accuracy or completeness of information in this document.
[2023-11-20] MEDS: Labetalol (Prefilled) 20 MG/4 ML 10 MG IV (21:34)
[2023-11-20] MEDS: hydrALAZINE 20 MG/ML Vial 10 MG IV (22:58)
[2023-11-21] MEDS: Lidocaine 5% Patch 1 PATCH TOPICAL (00:06)
[2023-11-21 00:16] VITALS: BP 168/75; PULSE 79; RESP 15; TEMP 36.2; O2SAT 95
--- NOTE | 2023-11-21 00:21 | ED.RN ---
Nurse at [facility] updated on pt returning with jay.
== END 2023-11-21 00:22 | disposition home or self-care (01) ==
PROVIDERS: Emergency Provider Emergency Medicine; PCP Family Medicine; Visit Provider Emergency Medicine
DX: S32.040A Wedge compression fracture of fourth lumbar vertebra, initial encounter for closed fracture (principal); I48.0 Paroxysmal atrial fibrillation; E11.9 Type 2 diabetes mellitus without complications; I10 Essential (primary) hypertension; Z87.891 Personal history of nicotine dependence; Z79.01 Long term (current) use of anticoagulants; Z86.711 Personal history of pulmonary embolism; I25.10 Atherosclerotic heart disease of native coronary artery without angina pectoris; K21.9 Gastro-esophageal reflux disease without esophagitis; E78.5 Hyperlipidemia, unspecified; Z79.899 Other long term (current) drug therapy; S80.12XA Contusion of left lower leg, initial encounter; W19.XXXA Unspecified fall, initial encounter
CPT/HCPCS: 72100; 73590; 80048; 85025; 85610; 85730; 96374; 96375; 96376; 99284; A4216

== ENCOUNTER → 2023-12-15 | Outpatient (CLI) | payer MEDICARE, SELFPAY ==
[2023-12-15 13:40] LABS: Anion Gap 5 (5-15); BUN 8 mg/dL (7-18); BUN/Creat Ratio 8.5 RATIO (10-20); Calcium,Total 9.7 mg/dL (8.5-10.1); Chloride 107 mmol/L (98-107); Creatinine, Serum 0.94 mg/dL (0.55-1.02); EST Glomerular Filtration Rate 61 mL/min (>60); Est Glom Filt Rate - Afr Amer 73 mL/min (>60); Glucose 153 mg/dL (74-106); Potassium 3.8 mmol/L (3.5-5.1); Sodium Level 142 mmol/L (136-145)
== END | disposition home or self-care (01) ==
LOC: LAB 12:21
PROVIDERS: PCP Family Medicine; Referring Provider Nurse Practitioner Gerontology; Visit Provider Nurse Practitioner Gerontology
DX: Z51.81 Encounter for therapeutic drug level monitoring (principal); Z79.899 Other long term (current) drug therapy; R06.02 Shortness of breath
CPT/HCPCS: 36415; 80048

== ENCOUNTER → 2023-12-28 | Outpatient (CLI) | payer MEDICARE, SELFPAY ==
[2023-12-28 12:03] LABS: Absolute Lymphocyte Count 2.31 X10^3/uL (0.83-4.51); Absolute Neutrophil Count 4.1 X10^3/uL (2.0-7.7); Basophil# 0.04 X10^3/uL; Basophil% 0.6 % (0-1); Eosinophil# 0.13 X10^3/uL; Eosinophils% 1.9 % (0-5); Hematocrit 38.8 % (37-47); Hemoglobin 12.4 g/dL (12.0-15.0); Lymphocyte # 2.31 X10^3/ul (0.83-4.51); Lymphocyte % 33.3 % (19-41); Mean Corpuscular Hgb 28.3 pg (27.0-32.0); Mean Corpuscular Volume 88.6 fL (81-99); Mean Platelet Vol. 10.5 fl (6.2-12.0); Monocyte# 0.34 X10^3/uL; Monocyte% 4.9 % (0-10); NRBC Flagged by Analyzer 0 % (0-5); Neutrophil # 4.11 X10^3/uL (2.7-7.7); Neutrophil % 59.2 % (47-70); Platelet Count 247 K/mm3 (150-450); RBC Distribution Width CV 13.6 % (11.6-14.6); RBC Distribution Width SD 44.2 fl (35.1-43.9); Red Blood Count 4.38 M/mm3 (4.2-5.4); White Blood Count 6.9 K/mm3 (4.4-11.0)
[2023-12-28 12:59] LABS: BNP,B-Type NATRIURETIC PEPTIDE 61.6 pg/mL (0-100)
[2023-12-28 13:48] LABS: Anion Gap 6 (5-15); BUN 17 mg/dL (7-18); BUN/Creat Ratio 19.4 RATIO (10-20); Calcium,Total 9.7 mg/dL (8.5-10.1); Chloride 104 mmol/L (98-107); Creatinine, Serum 0.88 mg/dL (0.55-1.02); EST Glomerular Filtration Rate 66 mL/min (>60); Est Glom Filt Rate - Afr Amer 80 mL/min (>60); Glucose 161 mg/dL (74-106); Potassium 3.3 mmol/L (3.5-5.1); Sodium Level 140 mmol/L (136-145); Thyroid Stim Hormone (TSH) 3.53 uIU/mL (0.358-3.74)
== END | disposition home or self-care (01) ==
LOC: LAB 10:59
PROVIDERS: PCP Family Medicine; Referring Provider Nurse Practitioner Gerontology; Visit Provider Nurse Practitioner Gerontology
DX: R06.02 Shortness of breath (principal); I50.9 Heart failure, unspecified; R60.0 Localized edema; R53.83 Other fatigue
CPT/HCPCS: 36415; 80048; 83880; 84436; 84443; 85025

== ENCOUNTER → 2024-01-13 | Outpatient (CLI) | payer MEDICARE, SELFPAY ==
--- NOTE | 2024-01-13 13:37 | ECHOD_ITS ---
Reason For Study: CHF, SOB Procedure This was a 2D Doppler, Color Flow transthoracic echocardiogram. Exam performed in department. Left Ventricle Normal LV size. Left ventricular systolic function is normal. The estimated ejection fraction is 65 %. No regional wall motion abnormalities noted. Right Ventricle Normal RV size. Normal systolic function. Atria Normal left atrium. Normal right atrium. Mitral Valve Normal mitral valve. Tricuspid Valve Normal tricuspid valve. Mild (1+) tricuspid valve insufficiency. Pulmonary artery systolic pressure is 34 mmHg. Aortic Valve Trisinus/trileaflet aortic valve. Mild focal aortic valve thickening. Pulmonic Valve Normal pulmonic valve. Great Vessels Normal aortic root. The pulmonary artery is normal size. Normal inferior vena cava. Pericardium/Pleural No pericardial effusion. MMode/2D Measurements & Calculations LVIDd: 4.3 cm IVSd: 1.0 cm Ao root diam: 3.1 cm LVIDs: 3.0 cm LVPWd: 1.1 cm RVDd: 3.0 cm FS: 31.1 % LAV(MOD-bp): 58.7 ml LVAd ap4: 23.9 cm2 SV(MOD-sp4): 43.6 ml LAV(MOD-bp) Indexed: 33.3 ml/m2 LVLd ap4: 7.2 cm LAV(MOD-sp2): 63.6 ml EDV(MOD-sp4): 64.3 ml LAV(MOD-sp4): 52.7 ml EDV(sp4-el): 67.4 ml LVAs ap4: 11.6 cm2 LVLs ap4: 5.5 cm ESV(MOD-sp4): 20.7 ml ESV(sp4-el): 20.6 ml EF(MOD-sp4): 67.8 % EF(sp4-el): 69.4 % SV(sp4-el): 46.8 ml LA A4 area: 18.4 cm2 LA dimension(2D): 4.0 cm RA A4 area: 10.4 cm2 Time Measurements MV dec time: 0.22 sec Doppler Measurements & Calculations MV E max levy: 99.9 cm/sec Lat Peak E' Levy: 11.0 cm/sec Med Peak E' Levy: 5.5 cm/sec MV A max levy: 87.7 cm/sec E/E' lat: 9.1 E/E' med: 18.3 MV E/A: 1.1 Ao V2 max: 161.2 cm/sec LV V1 max: 116.7 cm/sec MV dec slope: 459.3 cm/sec2 Ao max P.4 mmHg LV V1 max P.5 mmHg Ao V2 mean: 107.5 cm/sec LV V1 mean P.0 mmHg Ao mean P.3 mmHg LV V1 mean: 79.9 cm/sec Ao V2 VTI: 41.3 cm LV V1 VTI: 31.0 cm AV (velocity ratio): 0.75 PA V2 max: 101.1 cm/sec TR max levy: 270.7 cm/sec TR max P.3 mmHg ECHO/Echo Complete Interpretation Summary Normal LV size. Left ventricular systolic function is normal. The estimated ejection fraction is 65 %. Pulmonary artery systolic pressure is 34 mmHg. Ordering Physician: Addie Torres Referring Physician: Isra Rubalcava Performed By: Maria Del Carmen Tate, FARHEEN, RVT
== END | disposition home or self-care (01) ==
PROVIDERS: PCP Family Medicine; Referring Provider Nurse Practitioner Gerontology; Visit Provider Nurse Practitioner Gerontology
DX: Z51.81 Encounter for therapeutic drug level monitoring (principal); Z79.899 Other long term (current) drug therapy; R06.02 Shortness of breath
CPT/HCPCS: 93306

== ENCOUNTER → 2024-02-22 | Outpatient (CLI) | payer MEDICARE, SELFPAY ==
[2024-02-22 11:38] LABS: Absolute Lymphocyte Count 2.15 X10^3/uL (0.83-4.51); Absolute Neutrophil Count 4.2 X10^3/uL (2.0-7.7); Basophil# 0.04 X10^3/uL; Basophil% 0.6 % (0-1); Eosinophil# 0.15 X10^3/uL; Eosinophils% 2.1 % (0-5); Hematocrit 36.7 % (37-47); Hemoglobin 12.2 g/dL (12.0-15.0); Lymphocyte # 2.15 X10^3/ul (0.83-4.51); Lymphocyte % 30.6 % (19-41); Mean Corp Hgb Conc 33.2 g/dL (32-36); Mean Corpuscular Hgb 29.8 pg (27.0-32.0); Mean Corpuscular Volume 89.5 fL (81-99); Mean Platelet Vol. 10.4 fl (6.2-12.0); Monocyte# 0.44 X10^3/uL; Monocyte% 6.3 % (0-10); NRBC Flagged by Analyzer 0 % (0-5); Neutrophil # 4.23 X10^3/uL (2.7-7.7); Neutrophil % 60.3 % (47-70); Platelet Count 238 K/mm3 (150-450); RBC Distribution Width CV 13.1 % (11.6-14.6); RBC Distribution Width SD 42.5 fl (35.1-43.9)
[2024-02-22 12:05] LABS: BNP,B-Type NATRIURETIC PEPTIDE 56.9 pg/mL (0-100)
[2024-02-22 12:13] LABS: Anion Gap 6 (5-15); BUN 20 mg/dL (7-18); BUN/Creat Ratio 20.1 RATIO (10-20); Calcium,Total 9.5 mg/dL (8.5-10.1); Chloride 104 mmol/L (98-107); EST Glomerular Filtration Rate 57 mL/min (>60); Est Glom Filt Rate - Afr Amer 69 mL/min (>60); Glucose 125 mg/dL (74-106); Potassium 3.6 mmol/L (3.5-5.1); Sodium Level 142 mmol/L (136-145)
== END | disposition home or self-care (01) ==
LOC: LAB 10:25
PROVIDERS: PCP Family Medicine; Referring Provider Nurse Practitioner Gerontology; Visit Provider Nurse Practitioner Gerontology
DX: R53.83 Other fatigue (principal); I50.9 Heart failure, unspecified
CPT/HCPCS: 36415; 80048; 83880; 84443; 85025

== ENCOUNTER 2024-04-01 14:33 | Observation (INO) | payer MEDICARE, SELFPAY ==
[2024-04-01] VITALS (16 sets, daily range): BP systolic 166–221; BP diastolic 60–110; PULSE 57–72; RESP 14–26; TEMP 36.6–36.9; O2SAT 90–100; BMI 34.2
--- NOTE | 2024-04-01 14:52 | ED.RN ---
attempting to speak with nurse at [facility], been on ureña for over 6 mins.
--- NOTE | 2024-04-01 14:56 | ED.RN ---
Roldan at [facility] will be faxing info on the pt. Roldan states that i just got here at 2p, i dont know anything about her.
--- NOTE | 2024-04-01 15:01 | EKG12_ITS ---
Test Reason : CP Blood Pressure : / mmHG Vent. Rate : 061 BPM Atrial Rate : 061 BPM P-R Int : 206 ms QRS Dur : 090 ms QT Int : 450 ms P-R-T Axes : 075 043 073 degrees QTc Int : 453 ms Normal sinus rhythm Normal ECG Confirmed by Deric Cortez ([id number]), publication editor DARLEEN MAN ([id number]) on 04/02/2024 9:19:37 AM Referred By: Confirmed By:Deric Cortez
[2024-04-01] MEDS: Ondansetron 4 MG/2 ML Vial IV ×2 (15:10→18:53)
[2024-04-01] MEDS: Nitroglycerin SL (ED/IMG/CATH) 0.4 MG TABLET SL (15:12)
[2024-04-01 15:13] LABS: Absolute Lymphocyte Count 2.78 X10^3/uL (0.83-4.51); Absolute Neutrophil Count 3.5 X10^3/uL (2.0-7.7); Basophil# 0.04 X10^3/uL; Basophil% 0.6 % (0-1); Eosinophil# 0.14 X10^3/uL; Eosinophils% 2.1 % (0-5); Hematocrit 38.7 % (37-47); Hemoglobin 12.9 g/dL (12.0-15.0); Lymphocyte # 2.78 X10^3/ul (0.83-4.51); Lymphocyte % 40.9 % (19-41); Mean Corp Hgb Conc 33.3 g/dL (32-36); Mean Corpuscular Hgb 30.1 pg (27.0-32.0); Mean Corpuscular Volume 90.2 fL (81-99); Mean Platelet Vol. 9.9 fl (6.2-12.0); Monocyte# 0.31 X10^3/uL; Monocyte% 4.6 % (0-10); NRBC Flagged by Analyzer 0 % (0-5); Neutrophil # 3.51 X10^3/uL (2.7-7.7); Neutrophil % 51.7 % (47-70); Platelet Count 259 K/mm3 (150-450); RBC Distribution Width CV 13.5 % (11.6-14.6); RBC Distribution Width SD 44.6 fl (35.1-43.9); Red Blood Count 4.29 M/mm3 (4.2-5.4); White Blood Count 6.8 K/mm3 (4.4-11.0)
--- NOTE | 2024-04-01 15:25 | RAD_ITS ---
STUDY: XR Chest 1 View 04/01/2024 3:21 PM REASON FOR EXAM: Female, 83 years old. chest pain COMPARISON: None TECHNIQUE: XR Chest 1 View FINDINGS: There is no demonstrated pleural abnormality. There are multiple median sternotomy wires. Enlarged heart size. Normal mediastinum. Normal omar. Prominent appearing increased interstitial lung markings. Normal visualized pulmonary arteries. There is atherosclerotic calcification of the aortic arch with tortuosity. There are diffuse degenerative changes of the visualized thoracic spine. There is degenerative osteoarthritis of the bilateral shoulders. There are no acute findings of the upper abdomen. RAD/Chest 1 View (Portable) IMPRESSION: There are no acute findings. Electronically Signed: Jose Queen MD at 15:44 EDT ,
--- NOTE | 2024-04-01 15:27 | EX.ED.DYSGE1 ---
HPI <ZAID Bates - Last Filed: 04/01/24 20:37> History of Present Illness Chief Complaint: Chest Pain Narrative Narrative: Patient is on 83-year-old female with history of diabetes hypertension hyperlipidemia, history of CABG who is on Eliquis for atrial fibrillation presenting to the emergency department for left-sided back, chest pain that started while she was playing bingo 1 hour prior to arrival. Patient over the last week states has been having some abdominal cramping, some nausea however no vomiting. She did see her physician 2 days ago for this. Patient did not perform her usual activities throughout the week secondary not feeling well. However she did play bingo today, this is when the back pain/chest pain started. She does have nitro that she is allowed to take as needed however she did not take any. Patient describes the pain as a pressure/intermittent sharp sensation. 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 Bradycardia Stroke Dysphagia Morbid obesity Osteoarthritis GERD (gastroesophageal reflux disease) Pulmonary embolism Hyperlipidemia MARIVEL (obstructive sleep apnea) Diabetes mellitus Home Medications ?Medication ?Instructions ?Recorded ?Last Taken ?Type atorvastatin 40 mg tablet 40 mg PO QDAY cholesterol #30 tabs 03/02/18 05/17/23 Rx alprazolam 0.5 mg tablet 0.5 mg PO 4X/DAY anxiety 11/23/19 05/12/23 History montelukast 10 mg tablet 10 mg PO DAILY allergies 12/29/20 Unknown History BP cuff #1 ea 01/20/22 Unknown Rx cholecalciferol (vitamin D3) 125 125 mcg PO DAILY vitamin 01/20/22 Unknown History mcg (5,000 unit) capsule acetaminophen 500 mg tablet 1,000 mg PO Q4H PRN pain 05/19/22 Unknown History (Tylenol Extra Strength) ropinirole 1 mg tablet 2 mg PO BID pain 05/19/22 Unknown History guselkumab 100 mg/mL subcutaneous 100 mg subcut .monthly psoriasis 08/14/23 Unknown History syringe (Tremfya) losartan 100 mg tablet 25 mg PO DAILY BP 08/14/23 Unknown History trazodone 150 mg tablet 150 mg PO QHS sleep 10/24/23 Unknown History apixaban 5 mg tablet (Eliquis) 5 mg PO BID blood thinner #180 tabs 10/25/23 Unknown Rx hydrocodone-acetaminophen 5-325mg 1 tab PO 4X/DAY PRN PRN pain 11/20/23 Unknown History 5mg-325mg insulin degludec 100 unit/mL 25 unit subcut DAILY diabetes 04/01/24 Unknown History subcutaneous solution (Tresiba U-100 Insulin) metoprolol succinate 25 mg 12.5 mg PO DAILY blood pressure 04/01/24 Unknown History tablet,extended release 24 hr Allergy/AdvReac Type Severity Reaction Status Date / Time Anesthetics - Amide Type - Allergy NEEDS Verified 04/01/24 14:39 Select A FOLLOW-UP Anesthetics - Tyra Type- Allergy NEEDS Verified 04/01/24 14:39 Parabens FOLLOW-UP latex Allergy Unknown Verified 04/01/24 14:39 promethazine (From Phenergan) Allergy PT UNSURE Verified 04/01/24 15:34 OF REACTION sitagliptin phosphate (From Allergy Unknown Verified 04/01/24 15:34 Januvia) insulin isophane (NPH) AdvReac Severe heart burn Verified 04/01/24 15:34 insulin degludec (From AdvReac Mild Nausea Verified 04/01/24 14:39 Xultophy 100/3.6) liraglutide (From Xultophy AdvReac Mild Nausea Verified 04/01/24 14:39 100/3.6) atorvastatin (From Lipitor) AdvReac Unknown Unknown Verified 04/01/24 14:39 codeine AdvReac Unknown Unknown Verified 04/01/24 15:34 tizanidine AdvReac Unknown Unknown Verified 04/01/24 14:39 Family History Father CAD (coronary artery disease) Mother CAD (coronary artery disease) Brother CAD (coronary artery disease) Surgical History Hx of CABG History of bilateral cataract extraction History of knee surgery History of cholecystectomy History of total hysterectomy H/O coronary artery bypass surgery (~06/01/17) Social History household members: none housing: assisted living facility Smoking Status: Former smoker how long ago did patient quit smokin years ago second hand exposure: Yes alcohol intake: never substance use type: does not use caffeine: No ROS <ZAID Bates - Last Filed: 04/01/24 20:37> ROS ED ROS Narrative Constitutional: Negative for fever, chills, weight loss, weakness Eyes: Negative for vision loss, vision change, double vision ENT: Negative for any sore throat, ear pain, congestion Cardiovascular: Negative for any tightness, palpitations. Positive chest pressure Respiratory: Negative for any cough, sputum production, hemoptysis, dyspnea, dyspnea on exertion, orthopnea Gastrointestinal: Negative for any vomiting, diarrhea, constipation, blood in stool, blood in vomit. Positive for abdominal cramping, nausea : Negative for any urinary frequency, dysuria, retention, blood in urine Muscle skeletal: Negative for any neck pain, back pain Neurological: Negative for any headache, syncope, dizziness Skin: Negative for any rashes, itching, abrasions, lacerations Psychiatric: Negative for any depression, anxiety, stress, suicidal ideation, homicidal ideation Hematologic: Negative for any excessive bruising, easy bleeding EXAM <ZAID Bates - Last Filed: 04/01/24 20:37> Physical Exam Narrative Exam Narrative: Vital signs reviewed. HEET: Head normocephalic atraumatic, TMs clear bilaterally. Posterior pharynx is clear, moist mucous membranes. Nares clear bilaterally. Neck: Supple with no lymphadenopathy or tenderness. No signs of meningismus. Cardiac: Regular rate and rhythm no murmurs gallops or rubs, equal peripheral pulses bilaterally. Respiratory: Lungs clear to auscultation bilaterally. Abdomen: Soft, nontender, nondistended. No abdominal bruit or pulsatile masses. No hepatosplenomegaly Extremities: No peripheral edema, no signs of gross trauma or deformity. Active full range of motion of all extremities. Neuro: Cranial nerves II through XII intact, no focal neurological deficits. Skin: Clean dry and intact with no rash, purpura, petechiae, vesicles or pustules. Backs/flank: No CVA tenderness, no midline spinal tenderness, no deformity. Psych: Normal mood and affect. No SI, HI or acute psychosis. Const Vital Signs: 04/01/24 14:34 04/01/24 14:40 04/01/24 15:01 Temperature 98.4 F Temperature Source Oral Pulse Rate 62 Respiratory Rate Respiratory Effort Normal Non-Labored Short of Breath Blood Pressure 166/104 H Blood Pressure Mean 124 Pulse Ox 92 Oxygen Delivery Method Room Air Room Air 04/01/24 15:12 04/01/24 15:30 04/01/24 16:00 Temperature Temperature Source Pulse Rate 57 L 70 58 L Respiratory Rate 14 21 H Respiratory Effort Blood Pressure 174/60 H 178/63 H 199/69 H Blood Pressure Mean 95 100 Pulse Ox 90 95 Oxygen Delivery Method 04/01/24 17:00 04/01/24 17:25 04/01/24 17:32 Temperature 98 F Temperature Source Pulse Rate 58 L 57 L Respiratory Rate 17 16 Respiratory Effort Blood Pressure 216/77 H 219/65 H 208/75 H Blood Pressure Mean 111 116 119 Pulse Ox 94 98 Oxygen Delivery Method 04/01/24 18:00 04/01/24 18:00 04/01/24 18:15 Temperature Temperature Source Pulse Rate 64 70 Respiratory Rate 18 18 Respiratory Effort Blood Pressure 180/67 H 180/67 H 189/110 H Blood Pressure Mean 104 96 127 Pulse Ox 97 97 Oxygen Delivery Method 04/01/24 18:30 04/01/24 18:45 04/01/24 19:00 Temperature Temperature Source Pulse Rate 61 65 67 Respiratory Rate 21 H 26 H 16 Respiratory Effort Blood Pressure 194/62 H 183/65 H 187/76 H Blood Pressure Mean 99 99 113 Pulse Ox 99 96 96 Oxygen Delivery Method Room Air 04/01/24 19:00 Temperature Temperature Source Pulse Rate 68 Respiratory Rate 17 Respiratory Effort Blood Pressure 187/76 H Blood Pressure Mean 100 Pulse Ox 97 Oxygen Delivery Method <Dr. Cirilo Lagunas, DO - Last Filed: 04/01/24 23:17> Physical Exam Const Vital Signs: 04/01/24 14:34 04/01/24 14:40 04/01/24 15:01 Temperature 98.4 F Temperature Source Oral Pulse Rate 62 Respiratory Rate Respiratory Effort Normal Non-Labored Short of Breath Blood Pressure 166/104 H Blood Pressure Mean 124 Pulse Ox 92 Oxygen Delivery Method Room Air Room Air 04/01/24 15:12 04/01/24 15:30 04/01/24 16:00 Temperature Temperature Source Pulse Rate 57 L 70 58 L Respiratory Rate 14 21 H Respiratory Effort Blood Pressure 174/60 H 178/63 H 199/69 H Blood Pressure Mean 95 100 Pulse Ox 90 95 Oxygen Delivery Method 04/01/24 17:00 04/01/24 17:25 04/01/24 17:32 Temperature 98 F Temperature Source Pulse Rate 58 L 57 L Respiratory Rate 17 16 Respiratory Effort Blood Pressure 216/77 H 219/65 H 208/75 H Blood Pressure Mean 111 116 119 Pulse Ox 94 98 Oxygen Delivery Method 04/01/24 18:00 04/01/24 18:00 04/01/24 18:15 Temperature Temperature Source Pulse Rate 64 70 Respiratory Rate 18 18 Respiratory Effort Blood Pressure 180/67 H 180/67 H 189/110 H Blood Pressure Mean 104 96 127 Pulse Ox 97 97 Oxygen Delivery Method 04/01/24 18:30 04/01/24 18:45 04/01/24 19:00 Temperature Temperature Source Pulse Rate 61 65 67 Respiratory Rate 21 H 26 H 16 Respiratory Effort Blood Pressure 194/62 H 183/65 H 187/76 H Blood Pressure Mean 99 99 113 Pulse Ox 99 96 96 Oxygen Delivery Method Room Air 04/01/24 19:00 Temperature Temperature Source Pulse Rate 68 Respiratory Rate 17 Respiratory Effort Blood Pressure 187/76 H Blood Pressure Mean 100 Pulse Ox 97 Oxygen Delivery Method [facility] <ZAID Bates - Last Filed: 04/01/24 20:37> [facility] Lab Data Labs: Laboratory Results - last 24 hr 04/01/24 04/01/24 14:46 17:12 WBC 6.8 RBC 4.29 Hgb 12.9 Hct 38.7 MCV 90.2 MCH 30.1 MCHC 33.3 RDW Std Deviation 44.6 H RDW Coeff of Sky 13.5 Plt Count 259 MPV 9.9 Immature Gran % (Auto) 0.100 Neut % (Auto) 51.7 Lymph % (Auto) 40.9 Boundary % (Auto) 4.6 Eos % (Auto) 2.1 Baso % (Auto) 0.6 Absolute Neuts (auto) 3.5 Absolute Lymphs (auto) 2.78 Nucleated RBC % 0 Sodium 140 Potassium 4.3 Chloride 105 Carbon Dioxide 31.0 Anion Gap 4 L BUN 16 Creatinine 1.11 H Est GFR (MDRD) Af Amer 61 Est GFR (MDRD) Non-Af 50 L BUN/Creatinine Ratio 14.4 Glucose 246 H Calcium 9.3 Total Bilirubin 0.30 AST 27 ALT 24 Alkaline Phosphatase 110 Troponin I High Sens 13 14 Total Protein 7.6 Albumin 3.4 Globulin 4.2 Albumin/Globulin Ratio 0.8 L Lipase 20 Radiography Diagnostic Testing: Clinical Impression(s) from Imaging Studies Chest X-Ray 04/01/24 15:25 IMPRESSION: There are no acute findings. Electronically Signed: Jose Queen MD at 15:44 EDT , Chest CTA 04/01/24 18:59 IMPRESSION: No demonstrated pulmonary embolism or arterial dissection. Electronically Signed: Jose Queen MD at 20:09 EDT , Treatment and Re-Evaluation :: Differential diagnosis includes however is not limited to: ACS, TX, unstable angina, pancreatitis, stomach virus, acute on chronic pain, muscle strain Patient appears to be in no obvious distress vital signs are stable. Presenting to the emergency department with complaints of left-sided chest pressure, back pain as well as nausea has been ongoing. Patient's chest pain has been ongoing for 1 hour, patient received a cardiac workup including a delta troponin. Abdominal labs will also be given. Patient be given 1 nitro, chest x-ray. All radiologic examinations were read, reviewed by the emergency department attending. From these reads, a plan of care will be put in place. Patient's CBC was unremarkable, patient's chemistries show creatinine 1.1 however this is baseline. Patient's blood glucose 246 with a lipase that is negative. Patient is to report it was 13 this is negative for delta will be drawn. Chest x-ray showed no acute findings. I spoke with the patient because she continues to have periods where her heart rate goes into the 30s. She has been falling recently. Her beta-tawana has been cut in half secondary to low heart rate, however her blood pressure has been elevated, is now 199/88. Patient will receive a repeat troponin I do believe the patient would benefit from admission. Patient states that the chest pain change after the nitro, she states it is no longer pressure but a burning sensation. I will reach out to hospitalist. <Dr. Cirilo Lagunas, DO - Last Filed: 04/01/24 23:17> [facility] Narrative Medical decision making narrative: I have personally performed a face to face assessment of the patient and have reviewed the LITO Note. I performed a substantive portion of the visit including all aspects of the following. My vasquez findings include: History: Patient presents with chest pain that began less than 1 hour prior to arrival. Patient states that she was playing bingo when the pain began. Patient states it has been constant. Patient states that this a stabbing sensation. Patient states it is over the left side of her chest and radiates into the left side of her back. Patient states she has a history of prior back pain but this feels different. Patient states nothing makes it better nothing makes it worse. Patient admits to some nausea but denies any vomiting. Patient admits to some lightheadedness. Patient denies any shortness of breath or cough. Exam: Vital signs are stable except for an elevated blood pressure of 166/104. Patient is afebrile. Patient is in no acute distress. Oral mucosa is pink and moist. Neck is supple. Trachea is midline. There is no JVD. Heart was regular rate and rhythm. Lungs are clear and equal bilaterally. Abdomen is soft. Bowel sounds are normal. There is no tenderness. Extremities are intact. There is no calf tenderness or edema noted. Cranial nerves II through XII are intact. There are no focal motor or sensory deficits noted. Medical Decision Making: Differential diagnosis includes cardiac dysrhythmia, cardiac ischemia, electrolyte abnormality, pneumonia, pneumothorax, urinary tract infection, pancreatitis, and anxiety. EKG will be obtained to assess for cardiac dysrhythmia and cardiac ischemia. Chest x-ray will be obtained to assess for pneumonia and pneumothorax. CBC will be obtained to assess for leukocytosis and anemia. Comprehensive metabolic profile will be obtained to assess for hepatic function, renal function, and electrolyte abnormality. Lipase will be obtained to assess for pancreatitis. High-sensitivity troponin will be obtained to assess for cardiac ischemia. Patient was given Zofran and sublingual nitroglycerin. EKG was obtained. On my independent interpretation, it showed a sinus rhythm with a first degree A-V block with a rate of 61. GA interval was slightly prolonged at 206 ms. QRS and QTc intervals were within normal limits. Harper was normal. There are no acute ST or T wave changes. CBC was reviewed and was within normal limits. Comprehensive metabolic profile was reviewed. Creatinine was slightly elevated at 1.11. Glucose was slightly elevated at 246. Lipase was reviewed and was normal at 20. Initial high-sensitivity troponin was reviewed and was normal at 13. Portable 1 view chest x-ray was obtained. On my independent interpretation, lung chapin are clear. There is normal cardiac silhouette. Bony thorax is normal. There is no acute process noted. Radiologist also interpreted the x-ray and agrees. 2-hour repeat high-sensitivity troponin was reviewed and was normal at 14. Patient did have episodes of bradycardia into the upper 30s here in the emergency department. Patient's blood pressure increased to 208/75. Patient was given dose of hydralazine. Patient has a HEART score of 5. Because of this, I recommended admission to the hospital. Case was discussed with the hospitalist. He recommended obtaining a CTA of the chest to rule out aortic dissection. This was ordered. He will admit the patient to his service. Patient and family understood and were agreeable with plan. All questions were answered. Lab Data Labs: Laboratory Results - last 24 hr 04/01/24 04/01/24 14:46 17:12 WBC 6.8 RBC 4.29 Hgb 12.9 Hct 38.7 MCV 90.2 MCH 30.1 MCHC 33.3 RDW Std Deviation 44.6 H RDW Coeff of Sky 13.5 Plt Count 259 MPV 9.9 Immature Gran % (Auto) 0.100 Neut % (Auto) 51.7 Lymph % (Auto) 40.9 Boundary % (Auto) 4.6 Eos % (Auto) 2.1 Baso % (Auto) 0.6 Absolute Neuts (auto) 3.5 Absolute Lymphs (auto) 2.78 Nucleated RBC % 0 Sodium 140 Potassium 4.3 Chloride 105 Carbon Dioxide 31.0 Anion Gap 4 L BUN 16 Creatinine 1.11 H Est GFR (MDRD) Af Amer 61 Est GFR (MDRD) Non-Af 50 L BUN/Creatinine Ratio 14.4 Glucose 246 H Calcium 9.3 Total Bilirubin 0.30 AST 27 ALT 24 Alkaline Phosphatase 110 Troponin I High Sens 13 14 Total Protein 7.6 Albumin 3.4 Globulin 4.2 Albumin/Globulin Ratio 0.8 L Lipase 20 Radiography Diagnostic Testing: Clinical Impression(s) from Imaging Studies Chest X-Ray 04/01/24 15:25 IMPRESSION: There are no acute findings. Electronically Signed: Jose Queen MD at 15:44 EDT , Chest CTA 04/01/24 18:59 IMPRESSION: No demonstrated pulmonary embolism or arterial dissection. Electronically Signed: Jose Queen MD at 20:09 EDT , EKG Initial EKG: Attestation: I personally reviewed and interpreted this EKG as follows: Interpretation: Sinus Rhythm (With first-degree AV block with a rate of 61) and No Acute Injury Pattern Prior EKG tracings: available for review Prior: Unchanged (08/14/2023) Discharge Plan Dx/Rx/DC Orders Clinical Impression: Chest pain, Hypertension, Diabetes mellitus Disposition Disposition: Acute Care Hospital [facility] Discharge Date/Time: 04/01/24 20:06
[2024-04-01 15:30] LABS: ALB/GLOB Ratio 0.8 RATIO (0.9-2.4); AST(SGOT) 27 U/L (15-37); Alanine Aminotransfer ALT/SGPT 24 U/L (13-56); Albumin, Serum 3.4 g/dL (3.2-5.0); Alkaline Phosphatase 110 U/L (45-117); Anion Gap 4 (5-15); BUN 16 mg/dL (7-18); BUN/Creat Ratio 14.4 RATIO (10-20); Calcium,Total 9.3 mg/dL (8.5-10.1); Chloride 105 mmol/L (98-107); Creatinine, Serum 1.11 mg/dL (0.55-1.02); EST Glomerular Filtration Rate 50 mL/min (>60); Est Glom Filt Rate - Afr Amer 61 mL/min (>60); Globulin 4.2 g/dL (2.2-4.2); Glucose 246 mg/dL (74-106); Lipase 20 U/L (13-75); Potassium 4.3 mmol/L (3.5-5.1); Protein, Total 7.6 g/dL (6.4-8.2); Sodium Level 140 mmol/L (136-145); Troponin-I HS (w/2H Reflex) 13 pg/mL (3.0-54.0)
[2024-04-01 17:08] LABS: Reflex Troponin-HS? (from REC) Y
[2024-04-01] MEDS: hydrALAZINE 20 MG/ML Vial 10 MG IV (17:25)
[2024-04-01 17:38] LABS: Troponin-I HS 14 pg/mL (3.0-54.0)
[2024-04-01] MEDS: Morphine 4 MG/ML Syringe IV (18:53)
--- NOTE | 2024-04-01 18:56 | PCM.HP.STD ---
[facility] - General General Date of Service: 04/01/24 Chief Complaint: Chest pain HPI Narrative FRANK GARCÍA, is a 83 F with a significant history of former tobacco abuse; chronic lower back pain; CABG in 2017; HTN; paroxysmal A-fib; DVT; and diabetes mellitus who lives at a custodial presenting with left-sided chest pain that started while playing bingo. She describes the left-sided chest pain as a pressure. The pain radiates to the same side of her left back. The pain was as severe as 10 out of 10. Associated with her symptoms is shortness of breath. Of note because of bradycardia patient's beta-blockers are being titrated down. At the emergency department she was found to have severely elevated blood pressures. 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 Bradycardia Stroke Dysphagia Morbid obesity Osteoarthritis GERD (gastroesophageal reflux disease) Pulmonary embolism Hyperlipidemia MARIVEL (obstructive sleep apnea) Diabetes mellitus Home Medications ?Medication ?Instructions ?Recorded ?Last Taken ?Type atorvastatin 40 mg tablet 40 mg PO QDAY cholesterol #30 tabs 03/02/18 05/17/23 Rx alprazolam 0.5 mg tablet 0.5 mg PO 4X/DAY anxiety 11/23/19 05/12/23 History montelukast 10 mg tablet 10 mg PO DAILY allergies 12/29/20 Unknown History BP cuff #1 ea 01/20/22 Unknown Rx cholecalciferol (vitamin D3) 125 125 mcg PO DAILY vitamin 01/20/22 Unknown History mcg (5,000 unit) capsule escitalopram oxalate 10 mg tablet 10 mg PO DAILY depression 01/20/22 Unknown History (Lexapro) acetaminophen 500 mg tablet 1,000 mg PO Q4H PRN pain 05/19/22 Unknown History (Tylenol Extra Strength) ropinirole 1 mg tablet 2 mg PO BID pain 05/19/22 Unknown History guselkumab 100 mg/mL subcutaneous 100 mg subcut .monthly 08/14/23 Unknown History syringe (Tremfya) losartan 100 mg tablet 25 mg PO DAILY BP 08/14/23 Unknown History trazodone 150 mg tablet 300 mg PO QHS sleep 10/24/23 Unknown History apixaban 5 mg tablet (Eliquis) 5 mg PO BID blood thinner #180 tabs 10/25/23 Unknown Rx tizanidine 4 mg capsule 4 mg PO Q8H PRN muscle spasticity 11/10/23 Unknown History hydrocodone-acetaminophen 5-325mg 1 tab PO Q12H 11/20/23 Unknown History 5mg-325mg aspirin 81 mg tablet,delayed 81 mg PO DAILY 04/01/24 Unknown History release furosemide 20 mg tablet 20 mg PO DAILY 04/01/24 Unknown History metoprolol succinate 25 mg 25 mg PO DAILY 04/01/24 Unknown History tablet,extended release 24 hr topiramate 50 mg tablet (Topamax) 50 mg PO BID 04/01/24 Unknown History Allergy/AdvReac Type Severity Reaction Status Date / Time Anesthetics - Amide Type - Allergy NEEDS Verified 04/01/24 14:39 Select A FOLLOW-UP Anesthetics - Tyra Type- Allergy NEEDS Verified 04/01/24 14:39 Parabens FOLLOW-UP latex Allergy Unknown Verified 04/01/24 14:39 promethazine (From Phenergan) Allergy PT UNSURE Verified 04/01/24 15:34 OF REACTION sitagliptin phosphate (From Allergy Unknown Verified 04/01/24 15:34 Januvia) insulin isophane (NPH) AdvReac Severe heart burn Verified 04/01/24 15:34 insulin degludec (From AdvReac Mild Nausea Verified 04/01/24 14:39 Xultophy 100/3.6) liraglutide (From Xultophy AdvReac Mild Nausea Verified 04/01/24 14:39 100/3.6) atorvastatin (From Lipitor) AdvReac Unknown Unknown Verified 04/01/24 14:39 codeine AdvReac Unknown Unknown Verified 04/01/24 15:34 tizanidine AdvReac Unknown Unknown Verified 04/01/24 14:39 Family History Father CAD (coronary artery disease) Mother CAD (coronary artery disease) Brother CAD (coronary artery disease) Surgical History Hx of CABG History of bilateral cataract extraction History of knee surgery History of cholecystectomy History of total hysterectomy H/O coronary artery bypass surgery (~06/01/17) Social History household members: none housing: assisted living facility Smoking Status: Former smoker how long ago did patient quit smokin years ago second hand exposure: Yes alcohol intake: never substance use type: does not use caffeine: No ROS ROS Narrative Pertinent positives and pertinent negatives as noted in HPI. All other systems were reviewed and are negative Vital Signs Vital Signs Vital Signs: 04/01/24 14:34 04/01/24 14:40 04/01/24 15:01 Temperature 98.4 F Temperature Source Oral Pulse Rate 62 Respiratory Rate Respiratory Effort Normal Non-Labored Short of Breath Blood Pressure 166/104 H Blood Pressure Mean 124 Pulse Ox 92 Oxygen Delivery Method Room Air Room Air 04/01/24 15:12 04/01/24 15:30 04/01/24 16:00 Temperature Temperature Source Pulse Rate 57 L 70 58 L Respiratory Rate 14 21 H Respiratory Effort Blood Pressure 174/60 H 178/63 H 199/69 H Blood Pressure Mean 95 100 Pulse Ox 90 95 Oxygen Delivery Method 04/01/24 17:00 04/01/24 17:25 04/01/24 17:32 Temperature 98 F Temperature Source Pulse Rate 58 L 57 L Respiratory Rate 17 16 Respiratory Effort Blood Pressure 216/77 H 219/65 H 208/75 H Blood Pressure Mean 111 116 119 Pulse Ox 94 98 Oxygen Delivery Method 04/01/24 18:00 Temperature Temperature Source Pulse Rate 64 Respiratory Rate 18 Respiratory Effort Blood Pressure 180/67 H Blood Pressure Mean 104 Pulse Ox 97 Oxygen Delivery Method Physical Exam Narrative Physical exam: General: Well-nourished, well-developed. Head: Normocephalic, atraumatic, no tenderness Eyes: Vision is grossly intact. EOMI ENT, no trauma, moist mucous membranes, no rhinorrhea Neck: Nontender, No thyromegaly. CVS: Regular rate and rhythm. S1-S2 present. No murmur, gallop or rub. Respiratory : clear to auscultation bilaterally, chest wall nontender Abdomen: Soft, nontender, nondistended, normal bowel sounds, no masses : Deferred Back: Nontender, no CVA tenderness, no midline spinal tenderness, deformities, step-offs Extremities: Nontender full range of motion, no trauma Skin: Normal color, no trauma, abrasions Neuro: Alert, oriented, cranial nerves II through XII grossly intact. Psychiatry: Normal mood. Normal affect. Not depressed. Not anxious. Results Lab / Micro Data 04/01/24 14:46 04/01/24 14:46 Labs: Laboratory Results - last 24 hr 04/01/24 14:46: WBC 6.8, RBC 4.29, Hgb 12.9, Hct 38.7, MCV 90.2, MCH 30.1, MCHC 33.3, RDW Std Deviation 44.6 H, RDW Coeff of Sky 13.5, Plt Count 259, MPV 9.9, Immature Gran % (Auto) 0.100, Neut % (Auto) 51.7, Lymph % (Auto) 40.9, [place] % (Auto) 4.6, Eos % (Auto) 2.1, Baso % (Auto) 0.6, Absolute Neuts (auto) 3.5, Absolute Lymphs (auto) 2.78, Nucleated RBC % 0, Sodium 140, Potassium 4.3, Chloride 105, Carbon Dioxide 31.0, Anion Gap 4 L, BUN 16, Creatinine 1.11 H, Est GFR (MDRD) Af Amer 61, Est GFR (MDRD) Non-Af 50 L, BUN/Creatinine Ratio 14.4, Glucose 246 H, Calcium 9.3, Total Bilirubin 0.30, AST 27, ALT 24, Alkaline Phosphatase 110, Troponin I High Sens 13, Total Protein 7.6, Albumin 3.4, Globulin 4.2, Albumin/Globulin Ratio 0.8 L, Lipase 20 04/01/24 17:12: Troponin I High Sens 14 Imaging Radiology Impression Chest X-Ray 04/01/24 15:25 IMPRESSION: There are no acute findings. 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 care registered nurse insulin use: with halfway use Diabetes mellitus complication status: with hyperglycemia Qualified Code(s): E11.65 - Type 2 diabetes mellitus with hyperglycemia; Z79.4 - nursing home (current) use of insulin (3) Congestive heart failure: QUALIFIERS: Heart failure type: diastolic Heart failure chronicity: chronic Qualified Code(s): I50.32 - Chronic diastolic (congestive) heart failure (4) Hypertension: QUALIFIERS: Hypertension type: primary hypertension Qualified Code(s): I10 - Essential (primary) hypertension (5) Atrial fibrillation: QUALIFIERS: Atrial fibrillation type: paroxysmal Qualified Code(s): I48.0 - Paroxysmal atrial fibrillation (6) Morbid obesity due to excess calories: PLAN: Plan Chest Pain Place on a monitored bed at the progressive care unit Actual CXR image was independently interpreted. No acute cardiopulmonary process was noted. Follow CTA chest ordered at the ED. Actual EKG tracing was independently visualized. EKG tracing showed sinus rhythm Old records reviewed: Echocardiogram on 01/13/2024 showed preserved ejection fraction and mild tricuspid valve insufficiency. Pulmonary artery systolic pressure was 34 mmHg. ASA 81 mg p.o. daily ordered SL NTG 0.4 mg prn as needed for chest pain ordered Morphine as needed for pain ordered We will check lipid panel. Statin: High intensity statin continued. Troponin x 2 was negative. Get a third troponin. Stat EKG as needed for chest pain Discussed the ED provider who recommended admission. With back pain and chest pain as well as elevated blood pressure discussed with ED provider who will get a CTA chest. Stress test in the AM if the cardiac enzymes are negative Hypertensive urgency Blood pressure is not within goal. Home blood pressure medication continued. Of note patient's beta-tawana has been titrated outpatient. Scheduled p.o. hydralazine and as needed IV hydralazine added to regimen.. Atrial fibrillation Patient was in sinus rhythm at a time of presentation. Home beta-tawana continued. Admit on telemetry. Type 2 diabetes mellitus on long-term insulin with hyperglycemia. Blood glucose elevation goal. Accu-Cheks question scale insulin ordered. Heart failure with preserved ejection fraction Chronic Stable Home diuretics continued. Anxiety disorder Stable Xanax and Lexapro continued. Morbid obesity Stable LIFESTYLE modification recommended. Advance care planning: Discussed with patient and family advanced directives as well as CODE STATUS. Explained various CODE STATUS: FULL CODE, DNR CCA, DNR CCA with no intubation, and DNR CC- and what each meant. Patient elected to be a full code with CPR and intubation if warranted. Order was placed. Kong Romo who is Surgeon is surrogate decision maker. Time spent on discussion 16 minutes. Time spent in the patient's overall evaluation,decision-making process, review of diagnostic data, adjustment of management, discussion with other providers, nursing and ancillary staff involved in patient's care documentation, 70minutes. Charges/Coding Visit Charges Inpatient E&M: 86986 Init Hosp L3 Procedures Hospitalists Procedures: 14026 Advncd Care Plan 30 Min
--- NOTE | 2024-04-01 18:59 | CT_ITS ---
EXAM: CT ANGIOGRAPHY CHEST WITHOUT AND WITH INTRAVENOUS CONTRAST CLINICAL INDICATION: Dissection TECHNIQUE: Helically acquired angiography images were obtained of the chest without and with intravenous contrast. This CT exam was performed using one or more of the following dose reduction techniques: automated exposure control, adjustment of the mA and/or kV according to patient size, and/or use of iterative reconstruction technique. MIP reconstructed images were created and reviewed. CONTRAST: IV 75mL [id number]-370 RADIATION DOSE: CTDIvol = 15.92 mGy, DLP = 628.95 mGy-cm COMPARISON: No relevant prior studies available. FINDINGS: PULMONARY ARTERIES: Unremarkable. No demonstrated pulmonary embolism or arterial dissection. AORTA: There is atherosclerotic calcification of the aortic arch with tortuosity and elongation of the aortic arch and descending thoracic aorta. Normal in caliber. No evidence of dissection. GREAT VESSELS OF AORTIC ARCH: Unremarkable. Normal in caliber. No evidence of dissection. LUNGS AND PLEURAL SPACES: Unremarkable. No mass. No consolidation or edema. No pleural effusion or thickening. No pneumothorax. HEART: There are calcifications of the coronary arteries. Heart size is normal. No pericardial effusion. MEDIASTINUM: Unremarkable. No mediastinal or hilar adenopathy. Esophagus is unremarkable. No hiatal hernia. THYROID: Unremarkable. No thyroid lesions. BONES/JOINTS: There are degenerative changes of the shoulders. There are multi-level degenerative changes of the thoracic spine. No suspicious lytic or blastic abnormality. GALLBLADDER AND BILE DUCTS: Cholecystectomy changes. Median sternotomy wires. OTHER FINDINGS: Post-processing of the images was performed, with axial imaging and 3D reconstruction. MIPS images were obtained. CT/CTA Chest W/WO Contrast IMPRESSION: No demonstrated pulmonary embolism or arterial dissection. Electronically Signed: Jose Queen MD at 20:09 EDT ,
[2024-04-01] MEDS: 0.9% Normal Saline (500mL Bag) 500 ML 999 ML IV (19:08)
--- NOTE | 2024-04-01 19:31 | EKG12_ITS ---
Test Reason : PRE OP Blood Pressure : / mmHG Vent. Rate : 069 BPM Atrial Rate : 069 BPM P-R Int : 214 ms QRS Dur : 092 ms QT Int : 456 ms P-R-T Axes : 069 059 087 degrees QTc Int : 488 ms Sinus rhythm with 1st degree A-V block Otherwise normal ECG When compared with ECG of 01-APR-2024 20:16, MANUAL COMPARISON REQUIRED, DATA IS UNCONFIRMED Confirmed by VIJAYA ALY, CHARLI ([id number]), script editor DARLEEN MAN ([id number]) on 04/03/2024 5:55:11 AM Referred By: Confirmed By:CHARLI LILLY MD
--- NOTE | 2024-04-01 21:12 | NURSING ---
Addendum entered by Katharine Rodriguez 04/01/24 21:45: This RN contacted [facility] and spoke with Ryan. Updated him that their med list for patient is not accurate. He asked if it was a current list and this RN infromed him that it was printed on 03/03/24. INformed him that the daughter stated that she would be addressing the issue Tuesday but that is poses a safety risk for the patient. Original Note: this RN completely medication reconciliation upon arrival to floor and patient asked that I contact her daughter, Emma, in regards to medications, specifially insulin. This RN called philip Carter and reviewed medications. Multiple medications were either discontinued or dose changed from the list that is current from [facility]. Emma states that patient does her own medications at [facility]. Informed daughter that this needs to be addressed with [facility] as it is a huge safety risk for the patient with inaccurate medications. Daughter stated that she would address Tuesday with [facility]. This RN updated medications on home med rec per daughters list.
[2024-04-01 21:38] LABS: Troponin-I HS 20 pg/mL (3.0-54.0)
[2024-04-01] MEDS: hydrALAZINE 25 MG Tablet PO (22:50)
[2024-04-01] MEDS: Aspirin E.C. 81 MG Tablet PO (22:50)
[2024-04-01] MEDS: APIXABAN 5 MG TABLET PO (22:51)
[2024-04-01] MEDS: traZODone 50 MG Tablet 150 MG PO (22:51)
[2024-04-01] MEDS: Pramipexole Di-HCl 1 MG Tablet PO (22:52)
[2024-04-01] MEDS: ALPRAZolam 0.5 MG Tablet PO (22:59)
[2024-04-01] MEDS: HYDROcodone Bitartrate/Apap 5/325 Tablet PO (23:05)
[2024-04-01 23:14] LABS: Bedside Glucose 122 mg/dL (74-106)
[2024-04-02] VITALS (9 sets, daily range): BP systolic 134–169; BP diastolic 46–70; PULSE 59–78; RESP 14–20; TEMP 36.6–36.9; O2SAT 92–97
[2024-04-02 01:26] LABS: Troponin-I HS 27 pg/mL (3.0-54.0)
[2024-04-02] MEDS: Morphine 2 MG/ML Syringe 1 MG IV (03:18)
[2024-04-02 05:24] LABS: Absolute Lymphocyte Count 2.78 X10^3/uL (0.83-4.51); Basophil# 0.04 X10^3/uL; Basophil% 0.5 % (0-1); Eosinophil# 0.11 X10^3/uL; Eosinophils% 1.3 % (0-5); Hematocrit 37.5 % (37-47); Hemoglobin 12.4 g/dL (12.0-15.0); Lymphocyte # 2.78 X10^3/ul (0.83-4.51); Lymphocyte % 33.2 % (19-41); Mean Corp Hgb Conc 33.1 g/dL (32-36); Mean Corpuscular Hgb 29.7 pg (27.0-32.0); Mean Corpuscular Volume 89.9 fL (81-99); Mean Platelet Vol. 9.7 fl (6.2-12.0); Monocyte# 0.45 X10^3/uL; Monocyte% 5.4 % (0-10); NRBC Flagged by Analyzer 0 % (0-5); Neutrophil # 4.97 X10^3/uL (2.7-7.7); Neutrophil % 59.2 % (47-70); Platelet Count 258 K/mm3 (150-450); RBC Distribution Width CV 13.6 % (11.6-14.6); RBC Distribution Width SD 44.6 fl (35.1-43.9); Red Blood Count 4.17 M/mm3 (4.2-5.4); White Blood Count 8.4 K/mm3 (4.4-11.0)
[2024-04-02 05:54] LABS: Anion Gap 6 (5-15); BUN 16 mg/dL (7-18); BUN/Creat Ratio 16.3 RATIO (10-20); Calcium,Total 8.8 mg/dL (8.5-10.1); Chloride 108 mmol/L (98-107); Cholesterol 136 mg/dL (200); Creatinine, Serum 0.98 mg/dL (0.55-1.02); EST Glomerular Filtration Rate 58 mL/min (>60); Est Glom Filt Rate - Afr Amer 70 mL/min (>60); Estimated Creatinine Clearance 41.98 ml/min; Glucose 140 mg/dL (74-106); High Density Lipoprotein 41 mg/dL; Potassium 3.8 mmol/L (3.5-5.1); Sodium Level 142 mmol/L (136-145); Triglycerides 180 mg/dL; Very Low Density Lipoprotein 36 mg/dL (5-40)
--- NOTE | 2024-04-02 05:55 | EKG12_ITS ---
Test Reason : CP Blood Pressure : / mmHG Vent. Rate : 073 BPM Atrial Rate : 073 BPM P-R Int : 224 ms QRS Dur : 080 ms QT Int : 398 ms P-R-T Axes : 050 055 097 degrees QTc Int : 438 ms Sinus rhythm with 1st degree A-V block Nonspecific ST and T wave abnormality Abnormal ECG When compared with ECG of 01-APR-2024 14:37, MANUAL COMPARISON REQUIRED, DATA IS UNCONFIRMED Confirmed by VIJAYA ALY, CHARLI ([id number]), news videotape editor DARLEEN MAN ([id number]) on 04/03/2024 5:56:23 AM Referred By: Confirmed By:CHARLI LILLY MD
[2024-04-02 06:03] LABS: Troponin-I HS 21 pg/mL (3.0-54.0)
[2024-04-02] MEDS: Losartan Potassium 25 MG Tablet PO (06:31)
[2024-04-02] MEDS: hydrALAZINE 25 MG Tablet PO ×2 (06:31→16:06)
[2024-04-02] MEDS: Aspirin E.C. 81 MG Tablet PO (06:31)
[2024-04-02 06:51] LABS: Bedside Glucose 119 mg/dL (74-106)
[2024-04-02 07:55] LABS: Hemoglobin A1c 6.9 % (3.8-5.6)
[2024-04-02] MEDS: Ondansetron 4 MG/2 ML Vial IV (08:06)
[2024-04-02] MEDS: 0.9% Saline Lock 10 ML Syringe IV (08:06)
--- NOTE | 2024-04-02 08:57 | PCM.PN.HOSP ---
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 (04/01/24) Objective Data Objective Data Vital Signs: Vital Signs Temp Pulse Resp BP Pulse Ox O2 Del Method 98.4 F 78 15 153/60 H 95 Room Air 04/02/24 08:07 04/02/24 08:07 04/02/24 08:07 04/02/24 08:07 04/02/24 08:07 04/02/24 08:15 Oxygen Delivery Method Room Air Weight: 79.4 kg Body Mass Index (BMI) 34.2 Intake & Output: Intake and Output for Last 24 Hours 03/31/24 04/01/24 04/02/24 23:59 23:59 23:59 Intake Total 980 / 980 Output Total 700 / 700 200 / 200 Balance 280 / 280 -200 / -200 Lab / Micro Data 04/02/24 05:07 04/02/24 05:07 Labs: Laboratory Results - last 24 hr 04/01/24 14:46: WBC 6.8, RBC 4.29, Hgb 12.9, Hct 38.7, MCV 90.2, MCH 30.1, MCHC 33.3, RDW Std Deviation 44.6 H, RDW Coeff of Sky 13.5, Plt Count 259, MPV 9.9, Immature Gran % (Auto) 0.100, Neut % (Auto) 51.7, Lymph % (Auto) 40.9, [place] % (Auto) 4.6, Eos % (Auto) 2.1, Baso % (Auto) 0.6, Absolute Neuts (auto) 3.5, Absolute Lymphs (auto) 2.78, Nucleated RBC % 0, Sodium 140, Potassium 4.3, Chloride 105, Carbon Dioxide 31.0, Anion Gap 4 L, BUN 16, Creatinine 1.11 H, Est GFR (MDRD) Af Amer 61, Est GFR (MDRD) Non-Af 50 L, BUN/Creatinine Ratio 14.4, Glucose 246 H, Calcium 9.3, Total Bilirubin 0.30, AST 27, ALT 24, Alkaline Phosphatase 110, Troponin I High Sens 13, Total Protein 7.6, Albumin 3.4, Globulin 4.2, Albumin/Globulin Ratio 0.8 L, Lipase 20 04/01/24 17:12: Troponin I High Sens 14 04/01/24 21:12: Troponin I High Sens 20 04/01/24 22:54: POC Glucose 122 H 04/02/24 00:37: Troponin I High Sens 27 04/02/24 05:07: WBC 8.4, RBC 4.17 L, Hgb 12.4, Hct 37.5, MCV 89.9, MCH 29.7, MCHC 33.1, RDW Std Deviation 44.6 H, RDW Coeff of Sky 13.6, Plt Count 258, MPV 9.7, Immature Gran % (Auto) 0.400, Neut % (Auto) 59.2, Lymph % (Auto) 33.2, [place] % (Auto) 5.4, Eos % (Auto) 1.3, Baso % (Auto) 0.5, Absolute Neuts (auto) 5.0, Absolute Lymphs (auto) 2.78, Nucleated RBC % 0, Sodium 142, Potassium 3.8, Chloride 108 H, Carbon Dioxide 28.0, Anion Gap 6, BUN 16, Creatinine 0.98, Estim Creat Clear Calc 41.98, Est GFR (MDRD) Af Amer 70, Est GFR (MDRD) Non-Af 58 L, BUN/Creatinine Ratio 16.3, Glucose 140 H, Hemoglobin A1c 6.9 H, Calcium 8.8, Troponin I High Sens 21, Triglycerides 180, Cholesterol 136, LDL Cholesterol 59, VLDL Cholesterol 36, HDL Cholesterol 41 04/02/24 06:30: POC Glucose 119 H Radiography Diagnostic Testing: Radiology Impression Chest X-Ray 04/01/24 15:25 IMPRESSION: There are no acute findings. Electronically Signed: Jose Queen MD at 15:44 EDT Reading Location ID and State: [facility] / [place] , Service support , Chest CTA 04/01/24 18:59 IMPRESSION: No demonstrated pulmonary embolism or arterial dissection. Electronically Signed: Jose Queen MD at 20:09 EDT , Physical Exam Narrative GENERAL: cooperative HEENT: Atraumatic; normocephalic EYES; Anicteric, Normal Conjunctiva NECK; supple, normal thyroid, RESPIRATORY: Diminished to auscultation CARDIOVASCULAR: Regular S1 S2, GI: soft, normoactive bowel sounds, : No Renal angle tenderness; EXTREMITIES: No edema, no clubbing, MUSCULOSKELETAL: no muscle wasting NEURO: Awake; no lateralizing signs. 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 Diabetes mellitus type: type 2 Qualified Code(s): E11.65 - Type 2 diabetes mellitus with hyperglycemia; Z79.4 - manager long term care (current) use of insulin (3) Congestive heart failure: QUALIFIERS: Heart failure chronicity: chronic Heart failure type: diastolic Qualified Code(s): I50.32 - Chronic diastolic (congestive) heart failure (4) Hypertension: QUALIFIERS: Hypertension type: primary hypertension Qualified Code(s): I10 - Essential (primary) hypertension (5) Atrial fibrillation: QUALIFIERS: Atrial fibrillation type: paroxysmal Qualified Code(s): I48.0 - Paroxysmal atrial fibrillation (6) Morbid obesity due to excess calories: PLAN: Plan Patient is an 83-year-old lady who presented with chest pain 1. Chest pain ? Patient admitted to a monitored bed. As part of her evaluation ordered serial cardiac enzymes as well as EKG. Patient to undergo nuclear stress test to complete her evaluation. Had CTA of the chest performed in the ED. There was no evidence of pulmonary embolism or arterial dissection 2. Acute hypertensive urgency ? Patient blood pressure was now within goal Home medications continued in addition to hydralazine as needed to keep systolic blood pressure less than 160 3. Paroxysmal A-fib Patient is on beta-tawana?continue. Patient also on systemic anticoagulation with apixaban continue 4. Dyslipidemia -Patient is on statin therapy, continued at home dose 5. Chronic congestive heart failure with preserved ejection fraction ? Remains stable and euvolemic patient is on diuretic therapy from home discontinued 6. Psoriasis ? Patient is on guselkumab 7. Diabetes mellitus type II -. Placed on long acting insulin, Accu-Cheks a.c. and at bedtime and covered with sliding scale insulin 8. Depression with anxiety ? Patient is on Lexapro as well as Xanax continue 9. Class I obesity with BMI of 34.2 ? Weight loss advised 10. DVT prophylaxis ? Patient is on apixaban Time spent in the patient's overall evaluation,decision-making process, review of diagnostic data, adjustment of management, discussion with other providers, nursing and ancillary staff involved in patient's care documentation, 40 minutes.
--- NOTE | 2024-04-02 09:37 | CASEMGMT ---
Discharge Planning Updates faxed to [facility] Attn; Bernadette Mabry. Fax confirmation rec'd. Sasha Foote DC Planning Asst.
[2024-04-02] MEDS: ALPRAZolam 0.5 MG Tablet PO ×2 (12:07→16:07)
[2024-04-02] MEDS: HYDROcodone Bitartrate/Apap 5/325 Tablet PO (12:08)
--- NOTE | 2024-04-02 12:08 | CASEMGMT ---
Patient is from [place]. SW met with patient. Introduced self and role at [facility]. Patient stated her plan is to return to [place] at discharge. Patient stated her daughter will transport her. SW let patient know SW will keep [place] updated. Plan: d/c back to [place]. Senait Cabrera PAPERHANGER CONTRACTOR MAYA
[2024-04-02] MEDS: APIXABAN 5 MG TABLET PO (12:09)
--- NOTE | 2024-04-02 12:11 | PCM.DC.SUM ---
Providers Date of Admission: 04/01/24 Date of Discharge: 04/02/24 Primary Care Physician: Dr. Isra Rubalcava MD Reason For Visit: HYPERTENSION, CHEST PAIN, BRADYCARDIA Diagnosis Discharge Diagnosis (1) Chest pressure: Status: Acute Code(s): R07.89 - Other chest pain (2) Diabetes mellitus: Status: Acute Code(s): E11.9 - Type 2 diabetes mellitus without complications Qualifiers: Diabetes mellitus complication status: with hyperglycemia Diabetes mellitus [facility] insulin use: with [facility] use Diabetes mellitus type: type 2 Qualified Code(s): E11.65 - Type 2 diabetes mellitus with hyperglycemia; Z79.4 - buttermaker continuous churn (current) use of insulin (3) Congestive heart failure: Status: Acute Code(s): I50.9 - Heart failure, unspecified Qualifiers: Heart failure chronicity: chronic Heart failure type: diastolic Qualified Code(s): I50.32 - Chronic diastolic (congestive) heart failure (4) Hypertension: Status: Chronic Code(s): I10 - Essential (primary) hypertension Qualifiers: Hypertension type: primary hypertension Qualified Code(s): I10 - Essential (primary) hypertension (5) Atrial fibrillation: Status: Acute Code(s): I48.91 - Unspecified atrial fibrillation Qualifiers: Atrial fibrillation type: paroxysmal Qualified Code(s): I48.0 - Paroxysmal atrial fibrillation (6) Morbid obesity due to excess calories: Status: Acute Code(s): E66.01 - Morbid (severe) obesity due to excess calories Plan Patient is an 83-year-old lady who presented with chest pain 1. Chest pain ? Patient admitted to a monitored bed. As part of her evaluation ordered serial cardiac enzymes as well as EKG. Patient to undergo nuclear stress test to complete her evaluation. Had CTA of the chest performed in the ED. There was no evidence of pulmonary embolism or arterial dissection ? Patient underwent subsequent evaluation with a nuclear stress test which was negative for stress-induced ischemia 2. Acute hypertensive urgency ? Patient blood pressure was now within goal Home medications continued in addition to hydralazine as needed to keep systolic blood pressure less than 160 3. Paroxysmal A-fib Patient is on beta-tawana?continue. Patient also on systemic anticoagulation with apixaban continue 4. Dyslipidemia -Patient is on statin therapy, continued at home dose 5. Chronic congestive heart failure with preserved ejection fraction ? Remains stable and euvolemic patient is on diuretic therapy from home discontinued 6. Psoriasis ? Patient is on guselkumab 7. Diabetes mellitus type II -. Placed on long acting insulin, Accu-Cheks a.c. and at bedtime and covered with sliding scale insulin 8. Depression with anxiety ? Patient is on Lexapro as well as Xanax continue 9. Class I obesity with BMI of 34.2 ? Weight loss advised 10. DVT prophylaxis ? Patient is on apixaban Time spent in the patient's overall evaluation,decision-making process, review of diagnostic data, adjustment of management, discussion with other providers, nursing and ancillary staff involved in patient's care documentation, 40 minutes. Medications at Discharge Home Medications atorvastatin 40 mg tablet 40 mg PO QDAY cholesterol #30 tabs 03/02/18 alprazolam 0.5 mg tablet 0.5 mg PO 4X/DAY anxiety 11/23/19 montelukast 10 mg tablet 10 mg PO DAILY allergies 12/29/20 BP cuff #1 ea 01/20/22 cholecalciferol (vitamin D3) 125 mcg (5,000 unit) capsule 125 mcg PO DAILY vitamin 01/20/22 acetaminophen 500 mg tablet (Tylenol Extra Strength) 1,000 mg PO Q4H PRN pain 05/19/22 ropinirole 1 mg tablet 2 mg PO BID pain 05/19/22 guselkumab 100 mg/mL subcutaneous syringe (Tremfya) 100 mg subcut .monthly psoriasis 08/14/23 losartan 100 mg tablet 25 mg PO DAILY BP 08/14/23 trazodone 150 mg tablet 150 mg PO QHS sleep 10/24/23 apixaban 5 mg tablet (Eliquis) 5 mg PO BID blood thinner #180 tabs 10/25/23 hydrocodone-acetaminophen 5-325mg 5mg-325mg 1 tab PO 4X/DAY PRN PRN pain 11/20/23 insulin degludec 100 unit/mL subcutaneous solution (Tresiba U-100 Insulin) 25 unit subcut DAILY diabetes 04/01/24 metoprolol succinate 25 mg tablet,extended release 24 hr 12.5 mg PO DAILY blood pressure 04/01/24 aspirin 81 mg tablet,delayed release 81 mg PO BREAKFAST #0 tabs 04/02/24 hydralazine 25 mg tablet 25 mg PO BID #120 tabs 04/02/24 Physical Exam Narrative GENERAL: cooperative HEENT: Atraumatic; normocephalic EYES; Anicteric, Normal Conjunctiva NECK; supple, normal thyroid, RESPIRATORY: Diminished to auscultation CARDIOVASCULAR: Regular S1 S2, GI: soft, normoactive bowel sounds, : No Renal angle tenderness; EXTREMITIES: No edema, no clubbing, MUSCULOSKELETAL: no muscle wasting NEURO: Awake; no lateralizing signs. SKIN: No Rash PSYCH; Flat affect Weight / BMI Weight Weight: 79.4 kg Body Mass Index (BMI) 34.2 ABG / Lab / Microbiology Data 04/02/24 05:07 04/02/24 05:07 Laboratory: Laboratory Results - last 24 hr 04/01/24 14:46: WBC 6.8, RBC 4.29, Hgb 12.9, Hct 38.7, MCV 90.2, MCH 30.1, MCHC 33.3, RDW Std Deviation 44.6 H, RDW Coeff of Sky 13.5, Plt Count 259, MPV 9.9, Immature Gran % (Auto) 0.100, Neut % (Auto) 51.7, Lymph % (Auto) 40.9, [place] % (Auto) 4.6, Eos % (Auto) 2.1, Baso % (Auto) 0.6, Absolute Neuts (auto) 3.5, Absolute Lymphs (auto) 2.78, Nucleated RBC % 0, Sodium 140, Potassium 4.3, Chloride 105, Carbon Dioxide 31.0, Anion Gap 4 L, BUN 16, Creatinine 1.11 H, Est GFR (MDRD) Af Amer 61, Est GFR (MDRD) Non-Af 50 L, BUN/Creatinine Ratio 14.4, Glucose 246 H, Calcium 9.3, Total Bilirubin 0.30, AST 27, ALT 24, Alkaline Phosphatase 110, Troponin I High Sens 13, Total Protein 7.6, Albumin 3.4, Globulin 4.2, Albumin/Globulin Ratio 0.8 L, Lipase 20 04/01/24 17:12: Troponin I High Sens 14 04/01/24 21:12: Troponin I High Sens 20 04/01/24 22:54: POC Glucose 122 H 04/02/24 00:37: Troponin I High Sens 27 04/02/24 05:07: WBC 8.4, RBC 4.17 L, Hgb 12.4, Hct 37.5, MCV 89.9, MCH 29.7, MCHC 33.1, RDW Std Deviation 44.6 H, RDW Coeff of Sky 13.6, Plt Count 258, MPV 9.7, Immature Gran % (Auto) 0.400, Neut % (Auto) 59.2, Lymph % (Auto) 33.2, [place] % (Auto) 5.4, Eos % (Auto) 1.3, Baso % (Auto) 0.5, Absolute Neuts (auto) 5.0, Absolute Lymphs (auto) 2.78, Nucleated RBC % 0, Sodium 142, Potassium 3.8, Chloride 108 H, Carbon Dioxide 28.0, Anion Gap 6, BUN 16, Creatinine 0.98, Estim Creat Clear Calc 41.98, Est GFR (MDRD) Af Amer 70, Est GFR (MDRD) Non-Af 58 L, BUN/Creatinine Ratio 16.3, Glucose 140 H, Hemoglobin A1c 6.9 H, Calcium 8.8, Troponin I High Sens 21, Triglycerides 180, Cholesterol 136, LDL Cholesterol 59, VLDL Cholesterol 36, HDL Cholesterol 41 04/02/24 06:30: POC Glucose 119 H Radiography Diagnostic Testing: Radiology Impression Chest X-Ray 04/01/24 15:25 IMPRESSION: There are no acute findings. Electronically Signed: Jose Queen MD at 15:44 EDT Reading Location ID and State: [facility] / [place] , Service support , Chest CTA 04/01/24 18:59 IMPRESSION: No demonstrated pulmonary embolism or arterial dissection. Electronically Signed: Jose Queen MD at 20:09 EDT , D/C Instructions Discharge Diet: 1800 Calorie Control Diet Discharge Activity: Return to Normal Activity Call your doctor if you observe: Fever of 101 or Higher, Shortness of breath, Fainting spells and Chest pain Meaningful Use Info Meaningful Use Meaningful Use Diagnoses (Choose all that apply): None applicable Ischemic Stroke Statin Dosing Therapy Reference: STATIN DOSE THERAPY REFERENCE: * Patients > 75 years receive moderate or high dose statin therapy. * Patients 75 years or YOUNGER should receive HIGH intensity statin dose unless contraindicated. You will be required to document reason for non-treatment if statin daily dose does not meet guidelines. HIGH DOSE STATIN THERAPY DAILY Atorvastatin > than or = to 40 mg Rosuvastatin > than or = to 20 mg Amlodipine + Atorvastatin > than or = to 2.5/40 mg Ezetimibe + Simvastatin 10/80 mg Simvastatin 80mg Discharge Plan Admission Admit Date/Time: 04/01/24 19:19 Attending Provider: El Best Primary Care Provider: Isra Rubalcava Consulting Providers: Fausto Wright Discharge Orders/Prescriptions Prescriptions: New hydralazine 25 mg Tablet 25 mg PO BID Qty: 120 0RF aspirin 81 mg Tablet,Delayed Release (Dr/Ec) 81 mg PO BREAKFAST Qty: 0 0RF Continued alprazolam 0.5 mg tablet 0.5 mg PO 4X/DAY montelukast 10 mg tablet 10 mg PO DAILY cholecalciferol (vitamin D3) 125 mcg (5,000 unit) capsule 125 mcg PO DAILY (DME) BP cuff See Rx Instructions .Route .MEDSUPPLY Qty: 1 0RF Rx Instructions: As directed ropinirole 1 mg tablet 2 mg PO BID acetaminophen [Tylenol Extra Strength] 500 mg tablet 1,000 mg PO Q4H PRN (Reason: pain) trazodone 150 mg tablet 150 mg PO QHS Eliquis 5 mg tablet 5 mg PO BID Qty: 180 4RF losartan 100 mg Tablet 25 mg PO DAILY Tremfya 100 mg/mL syringe 100 mg subcut .monthly hydrocodone-acetaminophen 5-325 mg tablet 1 tab PO 4X/DAY PRN PRN (Reason: pain) metoprolol succinate 25 mg tablet extended release 24 hr 12.5 mg PO DAILY insulin degludec [Tresiba U-100 Insulin] 100 unit/mL solution 25 unit subcut DAILY atorvastatin 40 mg tablet 40 mg PO QDAY Qty: 30 6RF Referrals / Follow Up: Isra Rubalcava MD [Primary Care Provider] - Within 1 Week Disposition Disposition (needs filled in before D/C Order can be placed): Home, Self Care Charges/Coding Visit Charges Inpatient E&M: 70736 Disch Hosp >30min
[2024-04-02] MEDS: Cholecalciferol (Vit D3) 125 MCG CAPSULE (5,000 UNITS) PO (12:12)
[2024-04-02] MEDS: Pramipexole Di-HCl 1 MG Tablet PO (12:13)
[2024-04-02] MEDS: Atorvastatin Calcium 40 MG Tablet PO (12:13)
[2024-04-02] MEDS: Montelukast 10 MG Tablet PO (12:13)
--- NOTE | 2024-04-02 12:19 | CASEMGMT ---
Discharge Planning Call rec'd from Jonn SWIFT. Patient is active with PT/OT. They requested SN be added. RN CM updated. Resumption referral sent via [facility]. Sasha Foote DC Planning Asst.
[2024-04-02] MEDS: Metoprolol(XL)Succ 25 MG Tablet 12.5 MG PO (12:22)
--- NOTE | 2024-04-02 12:35 | STRESSREP ---
Stress Test Report Pharmacologic myocardial perfusion stress test. 83-year-old lady with a history of chest pain Resting EKG demonstrates sinus rhythm with a rate of 85 bpm. Resting blood pressure is 162/82 mmHg. 0.4 mg of regadenoson was infused per usual protocol followed by rapid intravenous saline flush injection. Continuous EKG monitoring was performed. The maximum heart rate was 97 bpm which was 69% of max impacted heart rate the maximum workload was 1 metabolic equivalent. At rest there were no ST or T wave changes noted to suggest ischemia and at peak infusion nonspecific ST changes were noted which did not meet the criteria for ischemia. No clinical angina is noted. The final blood pressure was 122/60 mmHg. Myocardial perfusion protocol. 11.9 mCi of technetium 99m sestamibi was injected at rest. 0.4 mg of regadenoson was infused per usual protocol. At peak infusion 35.7 mCi of technetium 99m sestamibi was injected stress images were obtained stress and rest images were reconstructed and compared in the short axis vertical long and horizontal long axis. Gated images were also obtained. Perfusion SPECT analysis: Review of the stress images demonstrate normal uptake of tracer noted in all areas of the myocardium. The resting images similar demonstrated normal uptake of tracer noted in all areas of the myocardium. No areas of reversibility are noted to suggest ischemia and no previous infarct is noted. Gated SPECT analysis: The gated ejection fraction is 65%. Conclusion: Normal pharmacologic myocardial perfusion stress test. Preserved ejection fraction.
[2024-04-02 12:44] LABS: Bedside Glucose 177 mg/dL (74-106)
--- NOTE | 2024-04-02 13:05 | CASEMGMT ---
Discharge Planning Discharge summary sent to Jonn SWIFT. Sasha Foote DC Planning Asst.
--- NOTE | 2024-04-02 13:26 | CASEMGMT ---
Addendum entered by Senait Cabrera 04/02/24 13:55: SW spoke with patient. SW asked patient if she feels she needs to go to a group home for rehab before going back to [place]. Patient said she does not feel like she needs a group home. Patient said she would just like to stay one more day. Plan: d/c back to [facility]. Senait TREJO Original Note: Therapy saw patient and stated patient is weak and patient is worried about returning to [place]. SW will check in with patient to see if she feels she needs to go to a group home. Senait TREJO
--- NOTE | 2024-04-02 14:40 | PHA.DC.MR.R ---
Pharmacy AR Med Reconciliation Pharmacy Service has performed discharge medication reconciliation for this patient. Return to [place]. The patient's discharge medication list was reviewed for discrepancies and discrepancies were resolved. Medications at Discharge Home Medications atorvastatin 40 mg tablet 40 mg PO QDAY cholesterol #30 tabs 03/02/18 alprazolam 0.5 mg tablet 0.5 mg PO 4X/DAY anxiety 11/23/19 montelukast 10 mg tablet 10 mg PO DAILY allergies 12/29/20 BP cuff #1 ea 01/20/22 cholecalciferol (vitamin D3) 125 mcg (5,000 unit) capsule 125 mcg PO DAILY vitamin 01/20/22 acetaminophen 500 mg tablet (Tylenol Extra Strength) 1,000 mg PO Q4H PRN pain 05/19/22 ropinirole 1 mg tablet 2 mg PO BID pain 05/19/22 guselkumab 100 mg/mL subcutaneous syringe (Tremfya) 100 mg subcut .monthly psoriasis 08/14/23 losartan 100 mg tablet 25 mg PO DAILY BP 08/14/23 trazodone 150 mg tablet 150 mg PO QHS sleep 10/24/23 apixaban 5 mg tablet (Eliquis) 5 mg PO BID blood thinner #180 tabs 10/25/23 hydrocodone-acetaminophen 5-325mg 5mg-325mg 1 tab PO 4X/DAY PRN PRN pain 11/20/23 insulin degludec 100 unit/mL subcutaneous solution (Tresiba U-100 Insulin) 25 unit subcut DAILY diabetes 04/01/24 metoprolol succinate 25 mg tablet,extended release 24 hr 12.5 mg PO DAILY blood pressure 04/01/24 aspirin 81 mg tablet,delayed release 81 mg PO BREAKFAST #0 tabs 04/02/24 hydralazine 25 mg tablet 25 mg PO BID #120 tabs 04/02/24
--- NOTE | 2024-04-02 16:13 | CHAPLAIN ---
Type of Pastoral Visit _x__ Initial Visit ___ Follow-up Visit ___ On-call Visit ___ General Patient Visit ___ Spiritual Assessment ___ Family Conference ___ Bereavement ___ Rapid Response ___ Code Blue ___ Other (describe below) Pastoral Care Referral From _x__ Patient ___ Family ___ Nurse ___ Physician ___ Piano Mechanic ___ Tent Worker ___ Other (describe below) Sacrament/Intervention _x__ Active listening ___ Anointing ___ Spiritism ___ Bereavement ___ Communion ___ Mandy exploration ___ _x__ Life review _x__ Prayer ___ Reconciliation ___ Sacrament of Sick _x__ Supportive presence ___ Wedding ___ Other (describe below) Pastoral Comments patient has been seen before on many previous admissions; pt gives review of recent health and then about her nearly [facility] stay [facility]; pt is unhappy with her situation although she has made many friends; pt realizes that she needs more care and is hoping to move to a SNF; pt has financial concerns and has worries; pt welcomes an opportunity to talk with someone and to have prayers spoken;
== END 2024-04-02 12:39 | disposition home or self-care (01) ==
LOC: ED 19:16 → PCU 21:36
PROVIDERS: Family Medicine; Nurse Practitioner; Admitting Provider Hospitalist; Emergency Provider Emergency Medicine; PCP Family Medicine; Visit Provider Internal Medicine
DX: R07.89 Other chest pain (principal); I11.0 Hypertensive heart disease with heart failure; I50.32 Chronic diastolic (congestive) heart failure; I48.0 Paroxysmal atrial fibrillation; E66.01 Morbid (severe) obesity due to excess calories; E11.65 Type 2 diabetes mellitus with hyperglycemia; Z79.4 Long term (current) use of insulin; Z68.34 Body mass index [BMI] 34.0-34.9, adult; I25.10 Atherosclerotic heart disease of native coronary artery without angina pectoris; E78.5 Hyperlipidemia, unspecified; I16.0 Hypertensive urgency; F41.9 Anxiety disorder, unspecified; F32.9 Major depressive disorder, single episode, unspecified; G89.29 Other chronic pain; M54.9 Dorsalgia, unspecified; R13.10 Dysphagia, unspecified; K21.9 Gastro-esophageal reflux disease without esophagitis; G47.33 Obstructive sleep apnea (adult) (pediatric); Z86.711 Personal history of pulmonary embolism; Z86.73 Personal history of transient ischemic attack (TIA), and cerebral infarction without residual deficits; Z87.891 Personal history of nicotine dependence; Z79.85 Long-term (current) use of injectable non-insulin antidiabetic drugs; Z79.01 Long term (current) use of anticoagulants; Z79.899 Other long term (current) drug therapy; Z95.1 Presence of aortocoronary bypass graft
CPT/HCPCS: 36415; 71045; 71275; 78452; 80048; 80053; 80061; 82962; 83036; 83690; 84484; 85025; 93005; 93017; 96374; 96375; 96376; 97162; 97166; 99221; 99285; A9500; Q9967; A4216; G0378; J2405; J2785

== ENCOUNTER 2024-04-07 19:37 | Emergency (ER) | payer MEDICARE, SELFPAY ==
[2024-04-07 19:38] VITALS: BP 145/70; PULSE 100; RESP 18; TEMP 36.4; O2SAT 95; BMI 35.8
--- NOTE | 2024-04-07 19:56 | ED.VIS.GI ---
HPI HPI - GI History of Present Illness Chief Complaint: Constipation Informant: patient Narrative Narrative: 83-year-old who feels constipated, she can feel hard stool in the rectum with pain and discomfort and she is unable to pass it. Last bowel movement was 3 days ago. Today she started getting abdominal pressure and discomfort diffuse some nausea occasionally but no vomiting. She has tried taking laxatives but has been unable to go and states she has been on and off of the toilet all day, and passing some loose diarrhea around the hard stool to no effect on her symptoms. [facility] Medical History Ascending cholangitis Immunosuppression due to drug therapy Former tobacco use Anxiety and depression History of left heart catheterization (LHC) (~01/20/21) Paroxysmal atrial fibrillation Essential hypertension Atherosclerosis of coronary artery of [place] heart without angina pectoris senior living (current) use of anticoagulants Bradycardia Stroke Dysphagia Morbid obesity Osteoarthritis GERD (gastroesophageal reflux disease) Pulmonary embolism Hyperlipidemia MARIVEL (obstructive sleep apnea) Diabetes mellitus Home Medications ?Medication ?Instructions ?Recorded ?Last Taken ?Type atorvastatin 40 mg tablet 40 mg PO QDAY cholesterol #30 tabs 03/02/18 05/17/23 Rx alprazolam 0.5 mg tablet 0.5 mg PO 4X/DAY anxiety 11/23/19 05/12/23 History montelukast 10 mg tablet 10 mg PO DAILY allergies 12/29/20 Unknown History BP cuff #1 ea 01/20/22 Unknown Rx cholecalciferol (vitamin D3) 125 125 mcg PO DAILY vitamin 01/20/22 Unknown History mcg (5,000 unit) capsule acetaminophen 500 mg tablet 1,000 mg PO Q4H PRN pain 05/19/22 Unknown History (Tylenol Extra Strength) ropinirole 1 mg tablet 2 mg PO BID pain 05/19/22 Unknown History guselkumab 100 mg/mL subcutaneous 100 mg subcut .monthly psoriasis 08/14/23 Unknown History syringe (Tremfya) losartan 100 mg tablet 25 mg PO DAILY BP 08/14/23 Unknown History trazodone 150 mg tablet 150 mg PO QHS sleep 10/24/23 Unknown History apixaban 5 mg tablet (Eliquis) 5 mg PO BID blood thinner #180 tabs 10/25/23 Unknown Rx hydrocodone-acetaminophen 5-325mg 1 tab PO 4X/DAY PRN PRN pain 11/20/23 Unknown History 5mg-325mg insulin degludec 100 unit/mL 25 unit subcut DAILY diabetes 04/01/24 Unknown History subcutaneous solution (Tresiba U-100 Insulin) metoprolol succinate 25 mg 12.5 mg PO DAILY blood pressure 04/01/24 Unknown History tablet,extended release 24 hr aspirin 81 mg tablet,delayed 81 mg PO BREAKFAST #0 tabs 04/02/24 Unknown Rx release hydralazine 25 mg tablet 25 mg PO BID #120 tabs 04/02/24 Unknown Rx Allergy/AdvReac Type Severity Reaction Status Date / Time Anesthetics - Amide Type - Allergy NEEDS Verified 04/07/24 19:38 Select A FOLLOW-UP Anesthetics - Tyra Type- Allergy NEEDS Verified 04/07/24 19:38 Parabens FOLLOW-UP latex Allergy Unknown Verified 04/07/24 19:38 promethazine (From Phenergan) Allergy PT UNSURE Verified 04/07/24 19:38 OF REACTION sitagliptin phosphate (From Allergy Unknown Verified 04/07/24 19:38 Januvia) insulin isophane (NPH) AdvReac Severe heart burn Verified 04/07/24 19:38 insulin degludec (From AdvReac Mild Nausea Verified 04/07/24 19:38 Xultophy 100/3.6) liraglutide (From Xultophy AdvReac Mild Nausea Verified 04/07/24 19:38 100/3.6) atorvastatin (From Lipitor) AdvReac Unknown Unknown Verified 04/07/24 19:38 codeine AdvReac Unknown Unknown Verified 04/07/24 19:38 tizanidine AdvReac Unknown Unknown Verified 04/07/24 19:38 Family History Father CAD (coronary artery disease) Mother CAD (coronary artery disease) Brother CAD (coronary artery disease) Surgical History Hx of CABG History of bilateral cataract extraction History of knee surgery History of cholecystectomy History of total hysterectomy H/O coronary artery bypass surgery (~06/01/17) Social History household members: none housing: assisted living facility Smoking Status: Former smoker how long ago did patient quit smokin years ago second hand exposure: Yes alcohol intake: never substance use type: does not use caffeine: No ROS ROS ED Constitutional Constitutional ED: Denies chills or fever(s) Eyes Eyes: Denies change in vision or diplopia ENT ENT ED: Denies rhinorrhea or sore throat Cardiovascular Cardiovascular: Denies chest pain or palpitations Respiratory/Chest Respiratory/Chest: Denies cough or dyspnea Gastrointestinal Gastrointestinal: Reports abdominal pain, constipation, diarrhea and nausea; Denies hematochezia or vomiting Genitourinary Genitourinary ED: Denies dysuria or hematuria Musculoskeletal Musculoskeletal: Denies back pain or neck pain Integumentary Denies abscess or rash Neurologic Neurologic: Denies headache(s), paresthesias or weakness Psychiatric Psychiatric: Denies suicidal thoughts EXAM Physical Exam Const Vital Signs: 04/07/24 19:38 04/07/24 21:38 04/07/24 23:00 Temperature 97.6 F L Temperature Source Temporal Pulse Rate 100 94 101 H Respiratory Rate 18 18 20 H Blood Pressure 145/70 H 222/86 H 184/99 H Blood Pressure Mean 95 131 127 Pulse Ox 95 95 97 Oxygen Delivery Method Room Air Room Air Room Air 04/07/24 23:25 Temperature 97.4 F L Temperature Source Pulse Rate 101 H Respiratory Rate 19 H Blood Pressure 184/99 H Blood Pressure Mean 127 Pulse Ox 97 Oxygen Delivery Method Positive well nourished and well developed General Appearance ED: well developed and NAD HEENT Reports moist mucous membranes normocephalic and atraumatic Eyes PERRL and EOMs intact bilaterally Neck full ROM and supple Resp normal respiratory effort and clear to auscultation bilaterally Cardio regular rate, regular rhythm and no murmurs GI non-distended GI Narrative: Diffuse mild subjective tenderness nothing objective no guarding or rebound. Normal bowel sounds present. On rectal, there is nonbloody diarrhea all over her and her underpants, on digital rectal, there is no focal collection or tenderness, but there is a large amount of hard stool palpable in the rectal vault which I swept around. Upon withdrawing finger, there is red discoloration mixed in the stool without active rectal bleeding/pooling. Sent for Hemoccult. Auscultation: normoactive bowel sounds Palpation: soft Back/Spine no CVA tenderness General Back: other FROM Extremity normal to inspection General Extremety ED: Negative for edema, pulses abnormal or tenderness General Extremity: Negative for edema or pulses abnormal Neuro oriented x3, CN's II-XII intact bilaterally and no sensory deficits noted Sensorium / Orientation: awake and alert Motor Exam: strength 5/5 throughout Psych Mood & Affect: anxious Skin no rashes or lesions noted and no wounds MDM MDM MDM Narrative Medical decision making narrative: Given the rectal exam I had that hemocculted and it is positive. [place] labs same time, she does not have an elevated BUN or anemia but her white blood count of 16. She was not able to have a bowel movement therefore I ordered soapsuds enema in addition to a CT of the abdomen/pelvis. She is on apixaban. I reviewed the CT images as well as the report which I agree with. The patient which shows evidence of the rectosigmoid fecal impaction and nothing else that is appearing to be acute. Patient was given soapsuds enema. She is having trouble holding it in. She would like something for pain, she understands that the narcotics that she is on is probably causing this obstipation and giving her more may make things worse with regards to her constipation, and would like a dose anyway which I think is fine. I will have nursing get her on the toilet and have her continue to try to have a bowel movement before we discharge her home. She is having no more bleeding and I think this was probably related to pushing, internal hemorrhoids, etc. Her hemoglobin is 13.6 and her vital signs are stable, so I am still comfortable with her going home and watching for continued bleeding. Lab Data Attestation: I reviewed the patient's lab results. Labs: Laboratory Results - last 24 hr 04/07/24 20:10 WBC 16.0 H RBC 4.61 Hgb 13.6 Hct 41.0 MCV 88.9 MCH 29.5 MCHC 33.2 RDW Std Deviation 43.0 RDW Coeff of Sky 13.3 Plt Count 293 MPV 9.8 Immature Gran % (Auto) 0.500 Neut % (Auto) 77.8 H Lymph % (Auto) 16.8 L [place] % (Auto) 4.4 Eos % (Auto) 0.1 Baso % (Auto) 0.4 Absolute Neuts (auto) 12.4 H Absolute Lymphs (auto) 2.69 Nucleated RBC % 0 Sodium 141 Potassium 3.4 L Chloride 106 Carbon Dioxide 27.0 Anion Gap 8 BUN 13 Creatinine 1.06 H Estim Creat Clear Calc 39.81 Est GFR (MDRD) Af Amer 64 Est GFR (MDRD) Non-Af 53 L BUN/Creatinine Ratio 12.3 Glucose 153 H Calcium 9.7 Radiography Diagnostic Testing: Clinical Impression(s) from Imaging Studies Abdomen/Pelvis CT 04/07/24 21:03 IMPRESSION: 1. Stool within the distal sigmoid colon and rectum which may represent developing fecal impaction. The remainder of the colon is fluid-filled which may represent incipient diarrhea. 2. Common bile duct stent with approximately 6.5 cm of the stent within the duodenum. Electronically Signed: Shaw Chawla MD at 22:38 EDT Reading Location ID and State: [facility] / [place] Tel , Service support , Discharge Plan Triage Chief Complaint: Constipation ED Provider: Tonny Herbert Dx/Rx/DC Orders Clinical Impression: Diffuse abdominal pain, Fecal impaction, Acute constipation, Encopresis Instructions: ED Fecal Impaction, Treated Prescriptions: No Action alprazolam 0.5 mg tablet 0.5 mg PO 4X/DAY montelukast 10 mg tablet 10 mg PO DAILY cholecalciferol (vitamin D3) 125 mcg (5,000 unit) capsule 125 mcg PO DAILY (DME) BP cuff See Rx Instructions .Route .MEDSUPPLY Qty: 1 0RF Rx Instructions: As directed ropinirole 1 mg tablet 2 mg PO BID acetaminophen [Tylenol Extra Strength] 500 mg tablet 1,000 mg PO Q4H PRN (Reason: pain) trazodone 150 mg tablet 150 mg PO QHS Eliquis 5 mg tablet 5 mg PO BID Qty: 180 4RF losartan 100 mg Tablet 25 mg PO DAILY Tremfya 100 mg/mL syringe 100 mg subcut .monthly hydrocodone-acetaminophen 5-325 mg tablet 1 tab PO 4X/DAY PRN PRN (Reason: pain) metoprolol succinate 25 mg tablet extended release 24 hr 12.5 mg PO DAILY insulin degludec [Tresiba U-100 Insulin] 100 unit/mL solution 25 unit subcut DAILY hydralazine 25 mg Tablet 25 mg PO BID Qty: 120 0RF aspirin 81 mg Tablet,Delayed Release (Dr/Ec) 81 mg PO BREAKFAST Qty: 0 0RF atorvastatin 40 mg tablet 40 mg PO QDAY Qty: 30 6RF Primary Care Provider: Isra Rubalcava Referrals: Isra Rubalcava MD [Primary Care Provider] - 3-5 Days if not improving Print Language: Tamazight Disposition Disposition: Home, Self Care
[2024-04-07 20:18] LABS: Absolute Lymphocyte Count 2.69 X10^3/uL (0.83-4.51); Absolute Neutrophil Count 12.4 X10^3/uL (2.0-7.7); Basophil# 0.06 X10^3/uL; Basophil% 0.4 % (0-1); Eosinophil# 0.02 X10^3/uL; Eosinophils% 0.1 % (0-5); Hemoglobin 13.6 g/dL (12.0-15.0); Lymphocyte # 2.69 X10^3/ul (0.83-4.51); Lymphocyte % 16.8 % (19-41); Mean Corp Hgb Conc 33.2 g/dL (32-36); Mean Corpuscular Hgb 29.5 pg (27.0-32.0); Mean Corpuscular Volume 88.9 fL (81-99); Mean Platelet Vol. 9.8 fl (6.2-12.0); Monocyte# 0.71 X10^3/uL; Monocyte% 4.4 % (0-10); NRBC Flagged by Analyzer 0 % (0-5); Neutrophil # 12.41 X10^3/uL (2.7-7.7); Neutrophil % 77.8 % (47-70); Platelet Count 293 K/mm3 (150-450); RBC Distribution Width CV 13.3 % (11.6-14.6); Red Blood Count 4.61 M/mm3 (4.2-5.4)
[2024-04-07 20:34] LABS: Anion Gap 8 (5-15); BUN 13 mg/dL (7-18); BUN/Creat Ratio 12.3 RATIO (10-20); Calcium,Total 9.7 mg/dL (8.5-10.1); Chloride 106 mmol/L (98-107); Creatinine, Serum 1.06 mg/dL (0.55-1.02); EST Glomerular Filtration Rate 53 mL/min (>60); Est Glom Filt Rate - Afr Amer 64 mL/min (>60); Estimated Creatinine Clearance 39.81 ml/min; Glucose 153 mg/dL (74-106); Potassium 3.4 mmol/L (3.5-5.1); Sodium Level 141 mmol/L (136-145)
--- NOTE | 2024-04-07 21:03 | CT_ITS ---
EXAM: CT ABDOMEN AND PELVIS WITH INTRAVENOUS CONTRAST CLINICAL INDICATION: diffuse pain, hematochezia, inc WBC TECHNIQUE: Helically acquired images were obtained of the abdomen and pelvis with intravenous contrast. This CT exam was performed using one or more of the following dose reduction techniques: automated exposure control, adjustment of the mA and/or kV according to patient size, and/or use of iterative reconstruction technique. CONTRAST: IV 100mL [id number] COMPARISON: 05/13/2023 FINDINGS: LOWER THORAX: There are extensive coronary artery calcifications. Lung bases are clear. No cardiomegaly. No significant pericardial effusion. ABDOMEN: LIVER: Unremarkable. Homogeneous. No focal mass. GALLBLADDER AND BILE DUCTS: There are surgical clips from a cholecystectomy. There is a common bile duct stent with the majority of the stent within the duodenum. PANCREAS: Unremarkable. No focal cystic or solid mass. SPLEEN: Unremarkable. Normal size without focal cystic or solid mass. ADRENALS: Unremarkable. No nodules. KIDNEYS AND URETERS: Unremarkable. Normal renal size and position. No hydronephrosis. STOMACH AND BOWEL: Colon is fluid-filled which may represent incipient diarrhea. There is stool seen within the distal sigmoid colon and rectum which may represent developing fecal impaction. PELVIS: APPENDIX: No evidence of acute appendicitis. BLADDER: Unremarkable. REPRODUCTIVE: Unremarkable as visualized. No mass. ABDOMEN and PELVIS: INTRAPERITONEAL SPACE: Unremarkable. No ascites or other fluid collection. No free air. BONES/JOINTS: Unremarkable. No suspicious lytic or blastic abnormality. SOFT TISSUES: Unremarkable. No discrete abdominal or pelvic wall hernia. VASCULATURE: See above. LYMPH NODES: Unremarkable. No enlarged lymph nodes. CT/Abdomen/Pelvis W IV Cont ONLY IMPRESSION: 1. Stool within the distal sigmoid colon and rectum which may represent developing fecal impaction. The remainder of the colon is fluid-filled which may represent incipient diarrhea. 2. Common bile duct stent with approximately 6.5 cm of the stent within the duodenum. Electronically Signed: Shaw Chawla MD at 22:38 EDT ,
[2024-04-07 21:38] VITALS: BP 222/86; PULSE 94; RESP 18; O2SAT 95
[2024-04-07 23:00] VITALS: BP 184/99; PULSE 101; RESP 20; O2SAT 97
[2024-04-07] MEDS: Morphine 2 MG/ML Syringe 4 MG IV (23:00)
[2024-04-07 23:25] VITALS: BP 184/99; PULSE 101; RESP 19; TEMP 36.3; O2SAT 97
--- NOTE | 2024-04-08 00:04 | ED.RN ---
Attempted to call [facility] for pt report, no answer at this time.
== END 2024-04-08 00:05 | disposition home or self-care (01) ==
PROVIDERS: Emergency Provider Emergency Medicine; PCP Family Medicine; Visit Provider Emergency Medicine
DX: K56.41 Fecal impaction (principal); E11.9 Type 2 diabetes mellitus without complications; Z79.4 Long term (current) use of insulin; R15.9 Full incontinence of feces; I25.10 Atherosclerotic heart disease of native coronary artery without angina pectoris; I10 Essential (primary) hypertension; R10.84 Generalized abdominal pain; E78.5 Hyperlipidemia, unspecified; Z79.01 Long term (current) use of anticoagulants; Z79.82 Long term (current) use of aspirin; Z79.890 Hormone replacement therapy; Z79.899 Other long term (current) drug therapy; Z86.73 Personal history of transient ischemic attack (TIA), and cerebral infarction without residual deficits; Z87.891 Personal history of nicotine dependence
CPT/HCPCS: 74177; 80048; 82274; 85025; 96374; 99285; Q9967

== ENCOUNTER 2024-04-19 16:01 | Emergency (ER) | payer MEDICARE, SELFPAY ==
[2024-04-19] VITALS (9 sets, daily range): BP systolic 132–218; BP diastolic 61–91; PULSE 55–77; RESP 15–24; TEMP 36.1–36.6; O2SAT 96–98; BMI 35.4
--- NOTE | 2024-04-19 16:24 | EKG12_ITS ---
Test Reason : CP Blood Pressure : / mmHG Vent. Rate : 067 BPM Atrial Rate : 067 BPM P-R Int : 208 ms QRS Dur : 088 ms QT Int : 432 ms P-R-T Axes : 074 074 083 degrees QTc Int : 456 ms Sinus rhythm with occasional Premature ventricular complexes Otherwise normal ECG Confirmed by VIJAYA ALY, CHARLI ([id number]), news video editor NEERAJ JUAN ([id number]) on 04/23/2024 11:08:10 AM Referred By: Confirmed By:CHARLI LILLY MD
[2024-04-19] MEDS: hydrALAZINE 20 MG/ML Vial 10 MG IV ×2 (16:28→17:36)
--- NOTE | 2024-04-19 16:35 | EDS_ITS ---
HPI History of Present Illness Chief Complaint: Chest Pain Informant: patient and EMS Narrative Narrative: 83-year-old female presenting to the emergency room for hypertension and chest pain. Patient states that she got up this morning around 4:00 and urinated got ready for the day. She had some breakfast consisting of oatmeal and around 930 this morning had frosted flakes. About 10:00 she states PT and OT came to her room and she noticed a discomfort on the left side of her chest and in her epigastrium. She states that there is a pressure and a burning component to it. It radiates towards her left side. She states they took her blood pressure and it was higher than normal and they have Taken it throughout the day and seems higher. She states that the staff has made numerous phone calls and eventually she was transported here to the emergency department. She states that she has not missed any of her daily medications. Is noted that the patient is on Eliquis for paroxysmal atrial fibrillation. Patient rates the pain as severe but also appears and speaks quite comfortably. She has a history of diabetes coronary artery disease obstructive sleep apnea and prior pulmonary embolism. She notes that she was in the emergency department recently for fecal impaction and after several days she has been stooling. She had diarrhea yesterday but a formed stool today. She does not take any PPI or acid rock crusher medications other than the occasional Gas-X and milk of magnesia. She notes increasing belching and gas over the past few days and wonders if the stomach lining is irritated [facility] Medical History Ascending cholangitis Immunosuppression due to drug therapy Former tobacco use Anxiety and depression History of left heart catheterization (LHC) (~01/20/21) Paroxysmal atrial fibrillation Essential hypertension Atherosclerosis of coronary artery of [place] heart without angina pectoris nursing home (current) use of anticoagulants Bradycardia Stroke Dysphagia Morbid obesity Osteoarthritis GERD (gastroesophageal reflux disease) Pulmonary embolism Hyperlipidemia MARIVEL (obstructive sleep apnea) Diabetes mellitus Home Medications ?Medication ?Instructions ?Recorded ?Last Taken ?Type atorvastatin 40 mg tablet 40 mg PO QDAY cholesterol #30 tabs 03/02/18 05/17/23 Rx alprazolam 0.5 mg tablet 0.5 mg PO 4X/DAY anxiety 11/23/19 05/12/23 History montelukast 10 mg tablet 10 mg PO DAILY allergies 12/29/20 Unknown History BP cuff #1 ea 01/20/22 Unknown Rx cholecalciferol (vitamin D3) 125 125 mcg PO DAILY vitamin 01/20/22 Unknown History mcg (5,000 unit) capsule acetaminophen 500 mg tablet 1,000 mg PO Q4H PRN pain 05/19/22 Unknown History (Tylenol Extra Strength) ropinirole 1 mg tablet 2 mg PO BID pain 05/19/22 Unknown History guselkumab 100 mg/mL subcutaneous 100 mg subcut .monthly psoriasis 08/14/23 Unknown History syringe (Tremfya) trazodone 150 mg tablet 150 mg PO QHS sleep 10/24/23 Unknown History apixaban 5 mg tablet (Eliquis) 5 mg PO BID blood thinner #180 tabs 10/25/23 Unknown Rx insulin degludec 100 unit/mL 25 unit subcut DAILY diabetes 04/01/24 Unknown History subcutaneous solution (Tresiba U-100 Insulin) metoprolol succinate 25 mg 12.5 mg PO DAILY blood pressure 04/01/24 Unknown Hi story tablet,extended release 24 hr aspirin 81 mg tablet,delayed 81 mg PO BREAKFAST #0 tabs 04/02/24 Unknown Rx release hydralazine 25 mg tablet 25 mg PO BID #120 tabs 04/02/24 Unknown Rx losartan 25 mg tablet 25 mg PO DAILY #30 TABLETS 04/12/24 Unknown Rx levothyroxine 50 mcg tablet 50 mcg PO DAILY 04/19/24 Unknown History omeprazole 40 mg capsule,delayed 40 mg PO DAILY #14 caps 04/19/24 Unknown Rx release sucralfate 1 gram tablet (Carafate) 1 g PO Q6H 14 days #56 tabs 04/19/24 Unknown Rx Allergy/AdvReac Type Severity Reaction Status Date / Time Anesthetics - Amide Type - Allergy NEEDS Verified 04/19/24 16:02 Select A FOLLOW-UP Anesthetics - Tyra Type- Allergy NEEDS Verified 04/19/24 16:02 Parabens FOLLOW-UP latex Allergy Unknown Verified 04/19/24 16:02 promethazine (From Phenergan) Allergy PT UNSURE Verified 04/19/24 16:02 OF REACTION sitagliptin phosphate (From Allergy Unknown Verified 04/19/24 16:02 Januvia) insulin isophane (NPH) AdvReac Severe heart burn Verified 04/19/24 16:02 insulin degludec (From AdvReac Mild Nausea Verified 04/19/24 16:02 Xultophy 100/3.6) liraglutide (From Xultophy AdvReac Mild Nausea Verified 04/19/24 16:02 100/3.6) atorvastatin (From Lipitor) AdvReac Unknown Unknown Verified 04/19/24 16:02 codeine AdvReac Unknown Unknown Verified 04/19/24 16:02 tizanidine AdvReac Unknown Unknown Verified 04/19/24 16:02 Family History Father CAD (coronary artery disease) Mother CAD (coronary artery disease) Brother CAD (coronary artery disease) Surgical History Hx of CABG History of bilateral cataract extraction History of knee surgery History of cholecystectomy History of total hysterectomy H/O coronary artery bypass surgery (~06/01/17) Social History household members: none housing: assisted living facility Smoking Status: Former smoker how long ago did patient quit smokin years ago second hand exposure: Yes alcohol intake: never substance use type: does not use caffeine: No ROS ROS ED Constitutional Constitutional ED: Denies chills, fever(s) or weight loss Eyes Eyes: Denies change in vision or diplopia ENT ENT ED: Denies ear pain, rhinorrhea or sore throat Cardiovascular Cardiovascular: Reports chest pain; Denies orthopnea, palpitations or racing heartbeat Respiratory/Chest Respiratory/Chest: Denies cough, dyspnea or orthopnea Gastrointestinal Gastrointestinal: Denies abdominal pain, diarrhea, nausea or vomiting Genitourinary Genitourinary ED: Denies dysuria, hematuria or urinary frequency Musculoskeletal Musculoskeletal: Denies arthralgias or myalgias Integumentary Denies abscess or rash Neurologic Neurologic: Denies headache(s) or weakness Psychiatric Psychiatric: Denies anxiety, depression, suicidal ideation or suicidal thoughts Endocrine Endocrinology: Denies polydipsia, polyphagia or polyuria Allergic/Immunologic Allergic/Immunologic ED: Denies mouth swelling, tongue swelling or urticaria EXAM Physical Exam Const Vital Signs: 04/19/24 16:02 04/19/24 16:04 04/19/24 17:01 Temperature 97 F L Temperature Source Temporal Pulse Rate 69 67 Respiratory Rate 16 16 Respiratory Effort Normal Blood Pressure 213/91 H 192/68 H Blood Pressure Mean 131 109 Pulse Ox 97 97 Oxygen Delivery Method Room Air Room Air 04/19/24 17:31 04/19/24 18:00 04/19/24 18:26 Temperature Temperature Source Pulse Rate 67 67 73 Respiratory Rate 21 H 16 18 Respiratory Effort Blood Pressure 218/76 H 188/78 H Blood Pressure Mean 123 114 Pulse Ox 96 Oxygen Delivery Method Room Air 04/19/24 18:30 04/19/24 18:45 04/19/24 19:00 Temperature Temperature Source Pulse Rate 76 77 75 Respiratory Rate 24 H 18 15 Respiratory Effort Blood Pressure 186/63 H 193/73 H 185/67 H Blood Pressure Mean 97 104 98 Pulse Ox Oxygen Delivery Method Positive well nourished and well developed General Appearance ED: well developed HEENT Reports normocephalic, head/scalp atraumatic and moist mucous membranes Eyes PERRL and EOMs intact bilaterally Neck no lymphadenopathy, supple and no JVD Resp normal respiratory effort and clear to auscultation bilaterally Cardio regular rate, regular rhythm and no murmurs GI normal to inspection, nondistended, normoactive bowel sounds and non-tender Palpation: soft Back/Spine no CVA tenderness and normal ROM Extremity normal to inspection General Extremety ED: Yes edema General Extremity: edema bilateral lower extremity Details: mild Neuro oriented x3 and CN's II-XII intact bilaterally Sensorium / Orientation: alert Motor Exam: strength 5/5 throughout Psych mental status grossly normal Mood & Affect: Negative for depressed or tearful Skin no rashes or lesions noted and no wounds MDM MDM MDM Narrative Medical decision making narrative: Differential diagnosis includes ACS pulmonary embolism pneumothorax pleural effusion pericarditis myocarditis aortic dissection gastritis esophagitis gastric ulcer patient's white count 7.3 with hemoglobin 12.3 platelet count is normal at 280. BMP and liver enzymes and lipase were normal except for glucose of 214. 2 sets of car diac enzymes are normal. My independent interpretation of the chest x-ray is no acute process. Patient was placed on the monitor observed. She has been in a sinus rhythm. She received hydralazine as well as clonidine her blood pressure is decreased currently 136/78. She received a GI cocktail. Patient noted that the cocktail was horrible to drink and did not really want to do it. She then i nformed nursing that her pain was returning. I think there is a high likelihood that given that the patient has not been eating much and her symptoms are more epigastric left upper quadrant lower chest and described as burning pressure and she has had increasing gas and belching that this could be GI in nature. I can place her on a short course of omeprazole and Carafate. Have her follow-up with primary care if not improving. As far as the hypertension this could be a contributing factor to discomfort or could be unrelated. I do not think we should manipulate her blood pressure medicines based on short visit when her blood pressure typically runs per her 120/80. History & Record Review Discussion w/independent historian: EMS personnel and Patient Additional record(s) reviewed:: Prior outpatient record, Prior ED visit and Prior labs Lab Data Attestation: I reviewed the patient's lab results. Labs: Laboratory Results - last 24 hr 04/19/24 04/19/24 16:17 18:30 WBC 7.3 RBC 4.15 L Hgb 12.3 Hct 36.4 L MCV 87.7 MCH 29.6 MCHC 33.8 RDW Std Deviation 40.8 RDW Coeff of Sky 12.9 Plt Count 280 MPV 9.4 Immature Gran % (Auto) 0.300 Neut % (Auto) 42.5 L Lymph % (Auto) 49.6 H Dickson % (Auto) 5.6 Eos % (Auto) 1.5 Baso % (Auto) 0.5 Absolute Neuts (auto) 3.1 Absolute Lymphs (auto) 3.61 Nucleated RBC % 0 Sodium 141 Potassium 3.6 Chloride 105 Carbon Dioxide 30.0 Anion Gap 6 BUN 8 Creatinine 0.84 Estim Creat Clear Calc 49.93 Est GFR (MDRD) Af Amer 84 Est GFR (MDRD) Non-Af 70 BUN/Creatinine Ratio 9.6 L Glucose 214 H Calcium 9.9 Total Bilirubin 0.30 Direct Bilirubin 0.10 AST 30 ALT 29 Alkaline Phosphatase 114 Troponin I High Sens 18 18 Total Protein 7.0 Albumin 3.1 L Globulin 3.9 Lipase 22 Radiography Diagnostic Testing: Clinical Impression(s) from Imaging Studies Chest X-Ray 04/19/24 16:50 IMPRESSION: No radiographic evidence of acute cardiopulmonary disease. Electronically Signed: Lorne Gomez DO at 17:50 EDT , EKG Initial EKG: Attestation: I personally reviewed and interpreted this EKG as follows: Comments: Sinus rhythm with a ventricular rate of 67 bpm. PVCs noted Discharge Plan Triage Chief Complaint: Chest Pain ED Provider: Enrrique Eric Dx/Rx/DC Orders Clinical Impression: Chest pain, Gastritis Prescriptions: New omeprazole 40 mg capsule,delayed release(DR/EC) 40 mg PO DAILY Qty: 14 0RF sucralfate [Carafate] 1 gram tablet 1 g PO Q6H 14 Days Qty: 56 0RF No Action alprazolam 0.5 mg tablet 0.5 mg PO 4X/DAY montelukast 10 mg tablet 10 mg PO DAILY cholecalciferol (vitamin D3) 125 mcg (5,000 unit) capsule 125 mcg PO DAILY (DME) BP cuff See Rx Instructions .Route .MEDSUPPLY Qty: 1 0RF Rx Instructions: As directed ropinirole 1 mg tablet 2 mg PO BID acetaminophen [Tylenol Extra Strength] 500 mg tablet 1,000 mg PO Q4H PRN (Reason: pain) trazodone 150 mg tablet 150 mg PO QHS Eliquis 5 mg tablet 5 mg PO BID Qty: 180 4RF Tremfya 100 mg/mL syringe 100 mg subcut .monthly metoprolol succinate 25 mg tablet extended release 24 hr 12.5 mg PO DAILY insulin degludec [Tresiba U-100 Insulin] 100 unit/mL solution 25 unit subcut DAILY hydralazine 25 mg Tablet 25 mg PO BID Qty: 120 0RF aspirin 81 mg Tablet,Delayed Release (Dr/Ec) 81 mg PO BREAKFAST Qty: 0 0RF levothyroxine 50 mcg tablet 50 mcg PO DAILY atorvastatin 40 mg tablet 40 mg PO QDAY Qty: 30 6RF losartan 25 mg tablet 25 mg PO DAILY Qty: 30 11RF Primary Care Provider: Isra Rubalcava Referrals: Isra Rubalcava MD [Primary Care Provider] - 1 Week Print Language: Turkmen Disposition Disposition: Home, Self Care
[2024-04-19 16:42] LABS: Absolute Lymphocyte Count 3.61 X10^3/uL (0.83-4.51); Absolute Neutrophil Count 3.1 X10^3/uL (2.0-7.7); Basophil# 0.04 X10^3/uL; Basophil% 0.5 % (0-1); Eosinophil# 0.11 X10^3/uL; Eosinophils% 1.5 % (0-5); Hematocrit 36.4 % (37-47); Hemoglobin 12.3 g/dL (12.0-15.0); Lymphocyte # 3.61 X10^3/ul (0.83-4.51); Lymphocyte % 49.6 % (19-41); Mean Corp Hgb Conc 33.8 g/dL (32-36); Mean Corpuscular Hgb 29.6 pg (27.0-32.0); Mean Corpuscular Volume 87.7 fL (81-99); Mean Platelet Vol. 9.4 fl (6.2-12.0); Monocyte# 0.41 X10^3/uL; Monocyte% 5.6 % (0-10); NRBC Flagged by Analyzer 0 % (0-5); Neutrophil # 3.09 X10^3/uL (2.7-7.7); Neutrophil % 42.5 % (47-70); Platelet Count 280 K/mm3 (150-450); RBC Distribution Width CV 12.9 % (11.6-14.6); RBC Distribution Width SD 40.8 fl (35.1-43.9); Red Blood Count 4.15 M/mm3 (4.2-5.4); White Blood Count 7.3 K/mm3 (4.4-11.0)
--- NOTE | 2024-04-19 16:50 | RAD_ITS ---
INDICATION: chest pain EXAMINATION/TECHNIQUE: X-RAY - XR Chest 1 View COMPARISON: April 01, 2024 FINDINGS: LINES/DEVICES: Stable sternotomy wires. LUNGS: No consolidation, edema or effusion. No pneumothorax. MEDIASTINUM AND CARDIOVASCULAR STRUCTURES: Cardiac silhouette not enlarged. Central airways and mediastinal contour are unremarkable. BONES AND SOFT TISSUES: Unremarkable. RAD/Chest 1 View (Portable) IMPRESSION: No radiographic evidence of acute cardiopulmonary disease. Electronically Signed: Lorne Gomez DO at 17:50 EDT ,
[2024-04-19 17:14] LABS: AST(SGOT) 30 U/L (15-37); Alanine Aminotransfer ALT/SGPT 29 U/L (13-56); Albumin, Serum 3.1 g/dL (3.2-5.0); Alkaline Phosphatase 114 U/L (45-117); Anion Gap 6 (5-15); BUN 8 mg/dL (7-18); BUN/Creat Ratio 9.6 RATIO (10-20); Calcium,Total 9.9 mg/dL (8.5-10.1); Chloride 105 mmol/L (98-107); Creatinine, Serum 0.84 mg/dL (0.55-1.02); EST Glomerular Filtration Rate 70 mL/min (>60); Est Glom Filt Rate - Afr Amer 84 mL/min (>60); Estimated Creatinine Clearance 49.93 ml/min; Globulin 3.9 g/dL (2.2-4.2); Glucose 214 mg/dL (74-106); Lipase 22 U/L (13-75); Potassium 3.6 mmol/L (3.5-5.1); Sodium Level 141 mmol/L (136-145); Troponin-I HS 18 pg/mL (3.0-54.0)
[2024-04-19] MEDS: Lidocaine 2% Viscous15 ML UDC 15 ML PO (17:19)
[2024-04-19] MEDS: Mag /Aluminum/Simeth WCH UDC 30 ML ORAL.SUSP PO (17:19)
[2024-04-19] MEDS: cloNIDine HCl 0.2 MG Tablet PO (18:34)
[2024-04-19 18:57] LABS: Troponin-I HS 18 pg/mL (3.0-54.0)
--- NOTE | 2024-04-19 19:44 | ED.RN ---
report called to [facility].
== END 2024-04-19 19:45 | disposition home or self-care (01) ==
PROVIDERS: Emergency Provider Emergency Medicine; PCP Family Medicine; Visit Provider Emergency Medicine
DX: K29.70 Gastritis, unspecified, without bleeding (principal); I48.0 Paroxysmal atrial fibrillation; E11.9 Type 2 diabetes mellitus without complications; R07.9 Chest pain, unspecified; I10 Essential (primary) hypertension; E78.5 Hyperlipidemia, unspecified; I25.10 Atherosclerotic heart disease of native coronary artery without angina pectoris; G47.33 Obstructive sleep apnea (adult) (pediatric); Z79.01 Long term (current) use of anticoagulants; Z79.82 Long term (current) use of aspirin; Z79.899 Other long term (current) drug therapy; Z87.891 Personal history of nicotine dependence; Z86.711 Personal history of pulmonary embolism
CPT/HCPCS: 71045; 80048; 80076; 83690; 84484; 85025; 93005; 96374; 96376; 99285; A4216

== ENCOUNTER → 2024-05-29 05:00 | Outpatient (REF) | payer MEDICARE, SELFPAY ==
[2024-05-29 08:08] LABS: Absolute Lymphocyte Count 4.04 X10^3/uL (0.83-4.51); Absolute Neutrophil Count 4.1 X10^3/uL (2.0-7.7); Basophil# 0.04 X10^3/uL; Basophil% 0.4 % (0-1); Eosinophil# 0.24 X10^3/uL; Eosinophils% 2.7 % (0-5); Hematocrit 33.9 % (37-47); Hemoglobin 11.2 g/dL (12.0-15.0); Lymphocyte # 4.04 X10^3/ul (0.83-4.51); Lymphocyte % 44.9 % (19-41); Mean Corpuscular Volume 90.9 fL (81-99); Mean Platelet Vol. 9.9 fl (6.2-12.0); Monocyte# 0.56 X10^3/uL; Monocyte% 6.2 % (0-10); NRBC Flagged by Analyzer 0 % (0-5); Neutrophil # 4.09 X10^3/uL (2.7-7.7); Neutrophil % 45.6 % (47-70); Platelet Count 270 K/mm3 (150-450); RBC Distribution Width CV 13.2 % (11.6-14.6); RBC Distribution Width SD 43.4 fl (35.1-43.9); Red Blood Count 3.73 M/mm3 (4.2-5.4)
[2024-05-29 11:57] LABS: ALB/GLOB Ratio 0.8 RATIO (0.9-2.4); AST(SGOT) 23 U/L (15-37); Alanine Aminotransfer ALT/SGPT 22 U/L (13-56); Alkaline Phosphatase 88 U/L (45-117); Anion Gap 7 (5-15); BUN 11 mg/dL (7-18); BUN/Creat Ratio 12.3 RATIO (10-20); Calcium,Total 9.6 mg/dL (8.5-10.1); Chloride 109 mmol/L (98-107); Creatinine, Serum 0.89 mg/dL (0.55-1.02); EST Glomerular Filtration Rate 64 mL/min (>60); Est Glom Filt Rate - Afr Amer 78 mL/min (>60); Globulin 3.8 g/dL (2.2-4.2); Glucose 104 mg/dL (74-106); Potassium 3.6 mmol/L (3.5-5.1); Protein, Total 6.8 g/dL (6.4-8.2); Sodium Level 143 mmol/L (136-145)
== END ==
LOC: OLS.WHLTSB 05:00
PROVIDERS: PCP Family Medicine; Visit Provider Internal Medicine
DX: I10 Essential (primary) hypertension (principal)
CPT/HCPCS: 36415; 80053; 85025

== ENCOUNTER → 2024-05-31 05:00 | Outpatient (REF) | payer MEDICARE, SELFPAY | LOC: OLS.WHLTSB 05:00 | PROVIDERS: PCP Family Medicine; Visit Provider Internal Medicine | DX: E56.9 Vitamin deficiency, unspecified (principal) | CPT/HCPCS: 36415; 82306 ==

== ENCOUNTER → 2024-06-01 05:00 | Outpatient (REF) | payer OTHER, SELFPAY ==
[2024-06-05 21:07] LABS: QNTFERON TB Mitogen Value > 10.00 IU/mL (.); QNTFERON TB Nil Value 0.04 IU/mL (.); QNTFERON TB1+ Ag Value 0.04 IU/mL (.); QNTFERON TB2+ Ag Value 0.05 IU/mL (.); QNTIFERON TB Positive Criteria Negative (Negative)
== END ==
LOC: OLS.WHLTSB 05:00
PROVIDERS: PCP Family Medicine; Visit Provider Internal Medicine
DX: R76.11 Nonspecific reaction to tuberculin skin test without active tuberculosis (principal); I10 Essential (primary) hypertension
CPT/HCPCS: 36415; 86480

== ENCOUNTER → 2024-06-11 05:00 | Outpatient (REF) | payer OTHER, SELFPAY ==
[2024-06-11 09:38] LABS: Absolute Lymphocyte Count 3.54 X10^3/uL (0.83-4.51); Absolute Neutrophil Count 3.2 X10^3/uL (2.0-7.7); Basophil# 0.04 X10^3/uL; Basophil% 0.5 % (0-1); Eosinophil# 0.27 X10^3/uL; Eosinophils% 3.6 % (0-5); Hemoglobin 11.8 g/dL (12.0-15.0); Lymphocyte # 3.54 X10^3/ul (0.83-4.51); Mean Corp Hgb Conc 31.9 g/dL (32-36); Mean Corpuscular Hgb 29.5 pg (27.0-32.0); Mean Corpuscular Volume 92.5 fL (81-99); Mean Platelet Vol. 10.2 fl (6.2-12.0); Monocyte# 0.51 X10^3/uL; Monocyte% 6.8 % (0-10); NRBC Flagged by Analyzer 0 % (0-5); Neutrophil # 3.15 X10^3/uL (2.7-7.7); Neutrophil % 41.8 % (47-70); Platelet Count 276 K/mm3 (150-450); RBC Distribution Width CV 12.9 % (11.6-14.6); RBC Distribution Width SD 43.8 fl (35.1-43.9); White Blood Count 7.5 K/mm3 (4.4-11.0)
[2024-06-11 09:50] LABS: ALB/GLOB Ratio 0.8 RATIO (0.9-2.4); AST(SGOT) 27 U/L (15-37); Alanine Aminotransfer ALT/SGPT 29 U/L (13-56); Albumin, Serum 3.1 g/dL (3.2-5.0); Alkaline Phosphatase 105 U/L (45-117); Anion Gap 7 (5-15); BUN 17 mg/dL (7-18); BUN/Creat Ratio 18.8 RATIO (10-20); Calcium,Total 9.8 mg/dL (8.5-10.1); Chloride 104 mmol/L (98-107); EST Glomerular Filtration Rate 64 mL/min (>60); Est Glom Filt Rate - Afr Amer 77 mL/min (>60); Globulin 3.9 g/dL (2.2-4.2); Glucose 205 mg/dL (74-106); Sodium Level 138 mmol/L (136-145)
== END ==
LOC: OLS.WHLTSB 05:00
PROVIDERS: PCP Family Medicine; Visit Provider Internal Medicine
DX: I10 Essential (primary) hypertension (principal)
CPT/HCPCS: 36415; 80053; 85025

== ENCOUNTER → 2024-06-25 05:00 | Outpatient (REF) | payer OTHER, SELFPAY ==
[2024-06-25 08:35] LABS: Absolute Lymphocyte Count 3.88 X10^3/uL (0.83-4.51); Absolute Neutrophil Count 3.4 X10^3/uL (2.0-7.7); Basophil# 0.05 X10^3/uL; Basophil% 0.6 % (0-1); Eosinophil# 0.34 X10^3/uL; Eosinophils% 4.2 % (0-5); Hematocrit 35.5 % (37-47); Hemoglobin 11.4 g/dL (12.0-15.0); Lymphocyte # 3.88 X10^3/ul (0.83-4.51); Lymphocyte % 47.8 % (19-41); Mean Corp Hgb Conc 32.1 g/dL (32-36); Mean Corpuscular Hgb 29.6 pg (27.0-32.0); Mean Corpuscular Volume 92.2 fL (81-99); Mean Platelet Vol. 10.3 fl (6.2-12.0); Monocyte# 0.45 X10^3/uL; Monocyte% 5.5 % (0-10); NRBC Flagged by Analyzer 0 % (0-5); Neutrophil # 3.37 X10^3/uL (2.7-7.7); Neutrophil % 41.7 % (47-70); Platelet Count 250 K/mm3 (150-450); RBC Distribution Width CV 13.2 % (11.6-14.6); RBC Distribution Width SD 44.3 fl (35.1-43.9); Red Blood Count 3.85 M/mm3 (4.2-5.4); White Blood Count 8.1 K/mm3 (4.4-11.0)
[2024-06-25 09:07] LABS: Anion Gap 8 (5-15); BUN 21 mg/dL (7-18); BUN/Creat Ratio 21.5 RATIO (10-20); Calcium,Total 9.7 mg/dL (8.5-10.1); Chloride 107 mmol/L (98-107); Creatinine, Serum 0.98 mg/dL (0.55-1.02); EST Glomerular Filtration Rate 58 mL/min (>60); Est Glom Filt Rate - Afr Amer 70 mL/min (>60); Glucose 130 mg/dL (74-106); Potassium 4.2 mmol/L (3.5-5.1); Sodium Level 139 mmol/L (136-145)
== END ==
LOC: OLS.WHLTSB 05:00
PROVIDERS: PCP Family Medicine; Visit Provider Internal Medicine
DX: I10 Essential (primary) hypertension (principal); E03.9 Hypothyroidism, unspecified; E11.9 Type 2 diabetes mellitus without complications; E56.9 Vitamin deficiency, unspecified; F41.1 Generalized anxiety disorder
CPT/HCPCS: 36415; 80048; 85025

== ENCOUNTER → 2024-07-09 04:00 | Outpatient (REF) | payer OTHER, SELFPAY | LOC: OLS.WHLTSB 04:00 | PROVIDERS: PCP Family Medicine; Visit Provider Internal Medicine | DX: E03.9 Hypothyroidism, unspecified (principal) | CPT/HCPCS: 36415; 84443 ==

== ENCOUNTER → 2024-07-16 05:00 | Outpatient (REF) | payer MEDICARE, SELFPAY ==
[2024-07-16 07:44] LABS: Absolute Lymphocyte Count 3.63 X10^3/uL (0.83-4.51); Absolute Neutrophil Count 3.5 X10^3/uL (2.0-7.7); Basophil# 0.06 X10^3/uL; Basophil% 0.8 % (0-1); Eosinophil# 0.21 X10^3/uL; Eosinophils% 2.7 % (0-5); Hematocrit 33.9 % (37-47); Lymphocyte # 3.63 X10^3/ul (0.83-4.51); Lymphocyte % 46.1 % (19-41); Mean Corp Hgb Conc 32.4 g/dL (32-36); Mean Corpuscular Hgb 29.6 pg (27.0-32.0); Mean Corpuscular Volume 91.1 fL (81-99); Mean Platelet Vol. 10.3 fl (6.2-12.0); Monocyte# 0.45 X10^3/uL; Monocyte% 5.7 % (0-10); NRBC Flagged by Analyzer 0 % (0-5); Neutrophil # 3.51 X10^3/uL (2.7-7.7); Neutrophil % 44.4 % (47-70); Platelet Count 224 K/mm3 (150-450); RBC Distribution Width CV 13.2 % (11.6-14.6); RBC Distribution Width SD 43.8 fl (35.1-43.9); Red Blood Count 3.72 M/mm3 (4.2-5.4); White Blood Count 7.9 K/mm3 (4.4-11.0)
[2024-07-16 08:14] LABS: Anion Gap 7 (5-15); BUN 11 mg/dL (7-18); BUN/Creat Ratio 12.9 RATIO (10-20); Calcium,Total 9.1 mg/dL (8.5-10.1); Chloride 109 mmol/L (98-107); Creatinine, Serum 0.85 mg/dL (0.55-1.02); EST Glomerular Filtration Rate 68 mL/min (>60); Est Glom Filt Rate - Afr Amer 82 mL/min (>60); Glucose 95 mg/dL (74-106); Potassium 3.6 mmol/L (3.5-5.1); Sodium Level 142 mmol/L (136-145)
== END ==
LOC: OLS.WHLTSB 05:00
PROVIDERS: PCP Family Medicine; Visit Provider Internal Medicine
DX: I11.0 Hypertensive heart disease with heart failure (principal); E16.4 Increased secretion of gastrin; G25.81 Restless legs syndrome; I48.0 Paroxysmal atrial fibrillation; I50.9 Heart failure, unspecified; E66.01 Morbid (severe) obesity due to excess calories; R07.89 Other chest pain; R19.7 Diarrhea, unspecified
CPT/HCPCS: 36415; 80048; 85025

== ENCOUNTER 2024-07-19 09:39 | Day surgery (SDC) | payer MEDICARE, SELFPAY ==
[2024-07-19] VITALS (7 sets, daily range): BP systolic 108–158; BP diastolic 59–74; PULSE 82–94; RESP 16–18; TEMP 36.4–36.6; O2SAT 92–96; BMI 32.3
--- NOTE | 2024-07-19 10:04 | PCM.HP.BLA ---
History and Physical Date of Admission: 07/19/24 FRANK GARCÍA, is a 83 F who presents to the office today for follow up. CT abd/pel with contrast 05.13.23 lung scarring; s/p CABG; coronary artery calcification; hepatic steatosis, with abnormal left lobe r/t intrahepatic biliary ductal dilation; s/p cholecystectomy; colonic diverticulosis ERCP 05.13.23 choledocholithiasis, biliary sphincterotomy, balloon extraction; middle MBD dilated; temporary stent placed in CBD. No specimens. HIDA 05.14.23 without acute/chronic finding; no bile leak. abd/pelvis CT 04.07.24 1. Stool within the distal sigmoid colon and rectum which may represent developing fecal impaction. The remainder of the colon is fluid-filled which may represent incipient diarrhea. 2. Common bile duct stent with approximately 6.5 cm of the stent within the duodenum. OV 04.25.24 pt reports that overall she is feeling unwell. Pt reports symptoms of nausea, diarrhea, abdominal pain, excessive flatulence, HB, and difficulty swallowing. pt reports that she had a bowel blockage in early April and has been feeling unwell since. ROS Const Constitutional: Positive for fatigue, frequent falls, headache(s), weakness and weight change (weight gain and weight loss); No fever(s) ENT ENT: Positive for headache(s) and difficulty swallowing Gastro GI: Positive for abdominal pain, bloating, constipation, diarrhea, heartburn, difficulty swallowing, excessive flatus and nausea/dyspepsia; No belching, change in bowel habits, change in stool character, coffee ground emesis, cramping, feeling full early, incontinent of stools, Vomiting blood/hematemesis, Blood in stool, loose stools, Black,tarry stools, pain with swallowing, vomiting or other Musc Musculoskeletal: Positive for joint pain, back pain, joint swelling, numbness, stiffness, tingling, Arthritis and restless legs Skin Skin: No yellowing of the eye or itchy eyes Neuro Neurology: Positive for weakness, frequent falls, headache(s), numbness, tingling, restless legs and tremor(s) Psych Psychiatric: Positive for anxiety and Positive for depression Endo Endocrine: Positive for fatigue and weight change (weight gain and weight loss) Aller/Imm Allergy/Immunologic: No itchy eyes [place]/Lymp Hematologic/Lymphatic: Positive for easy bruising; No easy bleeding Exam Const General: cooperative and comfortable Nutritional Appearance: average body habitus and well nourished [facility] Head: normal to inspection Ears: hearing grossly normal bilaterally Nose: external nose normal Face and sinus: normal facial exam Mouth: oral mucosae normal Throat: posterior oropharynx normal Eyes General: appearance normal, both eyes and all related structures Neck Neck: normal visual inspection Chest Chest palpation & inspection: normal inspection of the chest and normal palpation of entire chest wall Resp Effort & Inspection: normal respiratory effort Auscultation: Bilateral: Clear to Auscultation Cardio Palpation: normal PMI Rate: regular rate Rhythm: regular rhythm GI Inspection: normal to inspection Auscultation: normal bowel sounds Percussion: normal to percussion Palpation: no hepatosplenomegaly Skin General: no rashes or lesions noted Neuro General: patient alert Extrem General: normal to inspection Psych Affect: normal affect Assessment and Plan Assessment and Plan (1) Abdominal pain: Status: Acute Plan: 83-year-old was recently seen in the emergency room for worsening chest pain. She underwent cardiac workup with a EKG, echocardiogram and troponins. There were no abnormalities that were seen. She went home and then came back for worsening abdominal pain and was diagnosed with severe constipation. Attempts at decompression were unsuccessful. She eventually had to decompress herself . At this time she denies any chest pain or shortness of breath. She had a CT scan abdomen pelvis that had shown severe constipation with mild colonic dilation all the way to the cecum. There was no sign of volvulus. She did manage to take some milk of magnesia in go to the bathroom. At the end she did see a small amount of blood. She is still having intermittent cramping abdominal pain. She is clearly a very nervous person and I think her nerves make it worse. I suspect that she has ischemic colitis in the setting of bloating cramping and abdominal pain with diarrhea and intermittent loose stools. Recommendations: -Low-dose tramadol for abdominal pain -Amitriptyline or benzodiazepine for anxienty -Metamucil once a day -Dicyclomine 10 mg every 8 hours as needed Please also schedule her for ERCP with stent removal. She was explained alternatives, risk, benefits include understanding bleeding, infection, sepsis, perforation, need for emergent and . She have an ASA of 3. I have examined the patient and the H&P has been reviewed. There are no clinical changes since date of exam.
--- NOTE | 2024-07-19 10:45 | PCM.PRE.AN2 ---
ASA Classification* ASA Classification ASA Classification: 3 Assessment & Plan Anesthesia* Anesthesia Assessment Anesthesia Assessment: Discussed sedation and/or anesthesia options, risks, benefits, and alternatives with patient/parents/legal guardian/POA. Questions invited. The patient/parents/legal guardian/POA seems to understand and agrees to proceed with anesthesia plan. Reviewed the physical assessment, medical history, allergy history and patient home medications list prior to surgery/procedure/anesthetic and documented any changes. Performed airway and anesthesia risk assessments. Anesthesia Type Anesthesia Type: General (see written pre anesthesia record for full assessment) and MAC (see written pre anesthesia record for full assessment) Anesthesia Focused Assessment* Temperature: 97.9 F Pulse Rate: 82 Blood Pressure: 148/59 Respiratory Rate: 18 Pulse Ox: 96 Airway Assessment Mouth opens: >3 cm Mallampati Score: II Focused Labs Anesthesia Preop lab: CBC WBC 7.9 K/mm3 (4.4-11.0) 07/16/24 06:16 RBC 3.72 M/mm3 (4.2-5.4) L 07/16/24 06:16 Hgb 11.0 g/dL (12.0-15.0) L 07/16/24 06:16 Hct 33.9 % (37-47) L 07/16/24 06:16 Plt Count 224 K/mm3 (150-450) 07/16/24 06:16 CHEMISTRY Potassium 3.6 mmol/L (3.5-5.1) 07/16/24 06:16 Sodium 142 mmol/L (136-145) 07/16/24 06:16 Magnesium 2.0 mg/dL (1.6-2.6) 05/14/23 05:16 Phosphorus 3.0 mg/dL (2.5-4.9) 05/14/23 05:16 BUN 11 mg/dL (7-18) 07/16/24 06:16 Creatinine 0.85 mg/dL (0.55-1.02) 07/16/24 06:16 Glucose 95 mg/dL (74-106) 07/16/24 06:16 POC Glucose 177 mg/dL (74-106) H 04/02/24 12:24 TSH 1.550 uIU/mL (0.358-3.740) 07/09/24 06:30 COAG PT 15.6 SECONDS (11.7-14.9) H 11/20/23 20:44 Pre-Assessment Diagnosis/Proposed Procedure Planned Operative Procedure(s): ERCP W stent removal Anesthesia History Anesthesia History - sas statistical programmer: Anesthesia History - sas statistical programmer Hx Hospitalization Yes 07/17/24 11:27 Any Problems With Anesthesia Yes: can't have again, 07/17/24 11:27 really confused/ hallucinations, NEEDS ADMITTED EACH TIME Cholinesterase deficiency No 07/17/24 11:27 You/Your Family Experience No 07/17/24 11:27 fever (hyperthermia) with Relationship Recent Exposure to Contagious No 07/19/24 10:28 Disease Does patient have nerve No 07/17/24 11:27 stimulator Patient instructed to have device shut off --Does patient have Pacemaker No 07/19/24 10:28 or ICD? When Was Last Pacemaker Check QUESTION #4 FULL TEXT: You/Your Family Experience fever (hyperthermia) with Anesthesia Last Oral Intake Last Oral intake: Last Oral Intake NPO since 06:00 07/19/24 10:28 Meds taken in AM with sips of Yes 07/19/24 10:28 water? Meds patient instructed to take am of surgery PONV PONV - sas statistical programmer: PONV - sas statistical programmer Female Yes 07/17/24 11:27 HX of Motion Sickness No 07/17/24 11:27 HX of N/V After Surgery No 07/17/24 11:27 Non-Smoker Yes 07/17/24 11:27 Duration of Surgery greater No 07/17/24 11:27 than 60 minutes Number of Risk Factors 2 07/17/24 11:27 PONV Score Moderate Risk 07/17/24 11:27 Height & Weight Height & Weight: Anesthesia: Height & Weight Height 5 ft 07/19/24 10:28 Weight: 75 kg 07/19/24 10:28 Body Mass Index (BMI) 32.3 07/19/24 10:28 Respiratory Assessment Respiratory Assessment - sas statistical programmer: Respiratory Tract Infection Hx - sas statistical programmer Hx Respiratory Tract Infection No 07/17/24 11:27 STOP Sleep Apnea STOP Sleep Apnea - sas statistical programmer: STOP Sleep Apnea - sas statistical programmer Hx Hypertension Yes: CONTROLLED ON MED 07/17/24 11:27 Hx Sleep Apnea No 07/17/24 11:27 CPAP No 07/17/24 11:27 BIPAP No 07/17/24 11:27 Do you snore loudly (louder No 07/17/24 11:27 than talking or can be heard Do you often feel tired/ No 07/17/24 11:27 fatigued/ sleepy during daytime? Has anyone observed you stop No 07/17/24 11:27 breathing during sleep? STOP Results Negative 07/17/24 11:27 QUESTION #5 FULL TEXT : Do you snore loudly (louder than talking or can be heard through closed doors)? Tobacco Use History Tobacco Use History - sas statistical programmer: Tobacco Use History - sas statistical programmer Tobacco Use Smoking Status Former smoker 07/17/24 11:27 Hx Tobacco Use No 07/17/24 11:27 Years Smoking Packs Smoked per Day Smoking Cessation Date was No - quit smoking greater 07/17/24 11:27 within the last 15 years than 15 years ago Hx Smoking Cessation Date 10/03/99 07/17/24 11:27 Hx Smoking Cessation No 07/17/24 11:27 Counseling Hematologic Medial History Hematologic Hx - sas statistical programmer: Hematologic Medical Hx - product development chemist Hx of Blood Transfusion No 07/17/24 11:27 Hx of Transfusion in last 3 No 07/17/24 11:27 Months Date of Last Transfusion (if within last 3 months) Ever experience any problems No 07/17/24 11:27 with transfusion(s)? Specify any problems Hx of Preganancy in last 3 No 07/17/24 11:27 Months Nurse Filling Out Transfusion VCHRISTIN 07/17/24 11:27 & Questions: Date: 07/17/24 07/17/24 11:27 Time: 11:30 07/17/24 11:27 Patient unable to answer at this time (ie. confused, unrespo /Reproduction History /Reproductive History - sas statistical programmer: /Reproductive Hx- sas statistical programmer Hx Now No 07/17/24 11:27 Gestational Age (in weeks): EDC: Hx Hx Para Hx Section SAB No 07/17/24 11:27 PFSH Medical History History of Clostridium difficile infection Post-menopausal Wears glasses Insulin dependent diabetes mellitus Walker as ambulation aid Psoriatic arthritis Arthritis High cholesterol Back pain Gastric reflux Former smoker Shortness of breath on exertion History of echocardiogram History of stress test Hypertension Cardiology follow-up encounter Ascending cholangitis Immunosuppression due to drug therapy Former tobacco use Anxiety and depression History of left heart catheterization (LHC) (~01/20/21) Paroxysmal atrial fibrillation Essential hypertension Atherosclerosis of coronary artery of [place] without angina pectoris long-term (current) use of anticoagulants Bradycardia Stroke Dysphagia Morbid obesity Osteoarthritis GERD (gastroesophageal reflux disease) Pulmonary embolism Hyperlipidemia MARIVEL (obstructive sleep apnea) Diabetes mellitus Home Medications ?Medication ?Instructions ?Recorded ?Last Taken ?Type atorvastatin 40 mg tablet 40 mg PO QDAY cholesterol #30 tabs 03/02/18 05/17/23 Rx alprazolam 0.5 mg tablet 0.5 mg PO 4X/DAY anxiety 11/23/19 05/12/23 History BP cuff #1 ea 01/20/22 Unknown Rx cholecalciferol (vitamin D3) 125 125 mcg PO DAILY vitamin 01/20/22 Unknown History mcg (5,000 unit) capsule acetaminophen 500 mg tablet 1,000 mg PO Q4H PRN pain 05/19/22 Unknown History (Tylenol Extra Strength) ropinirole 1 mg tablet 2 mg PO QHS pain 05/19/22 Unknown History trazodone 150 mg tablet 150 mg PO QHS sleep 10/24/23 Unknown History apixaban 5 mg tablet (Eliquis) 5 mg PO BID blood thinner #180 tabs 10/25/23 07/16/24 Rx insulin degludec 100 unit/mL 25 unit subcut DAILY diabetes 04/01/24 Unknown History subcutaneous solution (Tresiba U-100 Insulin) metoprolol succinate 25 mg 12.5 mg PO DAILY blood pressure 04/01/24 Unknown History tablet,extended release 24 hr aspirin 81 mg tablet,delayed 81 mg PO BREAKFAST #0 tabs 04/02/24 07/16/24 Rx release losartan 25 mg tablet 25 mg PO DAILY #30 TABLETS 04/12/24 Unknown Rx levothyroxine 50 mcg tablet 50 mcg PO DAILY 04/19/24 Unknown History escitalopram oxalate 10 mg tablet 10 mg PO DAILY 07/17/24 Unknown History hydralazine 25 mg tablet 25 mg PO TID 07/17/24 Unknown History ropinirole 1 mg tablet 1 mg PO DAILY 07/17/24 Unknown History tramadol 50 mg tablet 50 mg PO 4X/DAY PRN PRN pain 07/17/24 Unknown History Allergy/AdvReac Type Severity Reaction Status Date / Time Anesthetics - Amide Type - Allergy NEEDS Verified 07/19/24 10:22 Select A FOLLOW-UP Anesthetics - Tyra Type- Allergy NEEDS Verified 07/19/24 10:22 Parabens FOLLOW-UP latex Allergy Unknown Verified 07/19/24 10:22 promethazine (From Phenergan) Allergy PT UNSURE Verified 07/19/24 10:22 OF REACTION sitagliptin phosphate (From Allergy Unknown Verified 07/19/24 10:22 Januvia) insulin isophane (NPH) AdvReac Severe heart burn Verified 07/19/24 10:22 insulin degludec (From AdvReac Mild Nausea Verified 07/19/24 10:22 Xultophy 100/3.6) liraglutide (From Xultophy AdvReac Mild Nausea Verified 07/19/24 10:22 100/3.6) atorvastatin (From Lipitor) AdvReac Unknown Unknown Verified 07/19/24 10:22 codeine AdvReac Unknown Unknown Verified 07/19/24 10:22 tizanidine AdvReac Unknown Unknown Verified 07/19/24 10:22 Family History Father CAD (coronary artery disease) Mother CAD (coronary artery disease) Brother CAD (coronary artery disease) Surgical History History of ERCP Hx of CABG History of bilateral cataract extraction History of knee surgery History of cholecystectomy History of total hysterectomy Social History household members: none housing: assisted living facility Smoking Status: Former smoker how long ago did patient quit smokin years ago second hand exposure: Yes alcohol intake: never substance use type: does not use caffeine: No Review of Systems (Anesthesia) ROS Narrative System reviewed and no additional complaints, except as documented.
[2024-07-19 10:50] LABS: Bedside Glucose 140 mg/dL (74-106)
--- NOTE | 2024-07-19 11:15 | FLU_PTH ---
PATIENT: FRANK GARCÍA LOC: EN U#:[id number] AGE/SX: 83/F ROOM: RE07/19/[address]: Dr. Doe Orr DO : 1940 BED: DIS: 07/19/2024 SPEC #: [id number] RECD: 07/19/24 13:24 STATUS: EMANUEL TODD #: [id number] CINDY: 07/19/24 11:[address]: Doe Orr DEPT: CYTOLOGY RECD BY: Francisco Roth ENTERED: 07/19/24 13:47 SP TYPE: Fluid OTHR DR: Dr. Isra Rubalcava MD Tissues: Biliary tract, NOS Procedures: Special Stain Group II Surgery Specimen Level IV Cytospin Fluid HEADER OPERATION: ERCP with stent removal, balloon dilation PRE-OP DIAGNOSIS: Abdominal pain TISSUE SUBMITTED: Biliary stent for cytology DIAGNOSIS CYTOLOGY Biliary stent fluid for cytology (cytospin and cellblock); Negative for malignant cells. See comment. SJ.mr 07/20/2024 COMMENT Clinical correlation and appropriate follow up are necessary. CYTOLOGY STUDY Slides are reviewed. CYTOLOGY GROSS Received is one black stent, 8cm with 2 ml of brownish-yellow material labeled with the patient's name and and designated per the requisition as Biliary stent. Submitted for cytology preparation including cell block. Mr 07/19/2024 TC:5 CPT: 40860,74828
--- NOTE | 2024-07-19 11:48 | RAD_ITS ---
EXAM: INTRAOPERATIVE CHOLANGIOGRAM FLUOROSCOPY TIME: 153.8 seconds RADIATION DOSE: 37.47 mGy TOTAL NUMBER OF IMAGES: 1 COMPARISON: None. PROVIDED CLINICAL HISTORY: STONES PAIN TECHNIQUE: The examination was performed with physician in attendance. Under fluoroscopic observation, fluoroscopic images were obtained in the operating room. FINDINGS: First image demonstrates surgical instruments overlying the [id number]. Contrast is identified in a cannulated common bile duct. Retrograde contrast is notseen in the pancreatic duct. Contrast is noted in the proximal duodenum. Contrast is seen in the intrahepatic ducts. Stent removal RAD/ERCP Biliary/Pancreas IMPRESSION: Fluoroscopic assistance images were obtained. Pertinent findings noted above. Electronically Signed: Jose Queen MD at 15:37 EDT ,
--- NOTE | 2024-07-19 12:19 | PCM.POST.ANE ---
Anesthesia: Postop Eval I Current Vital Signs Temperature: 97.8 F Pulse Rate: 94 Blood Pressure: 108/67 Respiratory Rate: 18 Pulse Ox: 95 Oxygen Delivery Method: Room Air Assessment Airway patent: Yes Spontaneous unlabored respirations: Yes Mental status: Awake nausea: No Vomiting: No Anesthesia Complication: No Fluid Hydration Crystalloid volume administer (ml): 120 Total IV fluid infused: 120 Progress Note Anesthesia document: Postop Eval 1 completed: Yes
--- NOTE | 2024-07-19 12:25 | PCM.POSTANE2 ---
Anesthesia Postop Eval I Sum Postop Eval Completion status Anesthesia document: Postop Eval 1 completed: Yes Anesthesia Postop Eval I Summary Anesthesia Postop Eval I Summary: Anesthesia Postop Eval I: Assessment Summary Airway patent Yes 07/19/24 12:20 [email or web address] Spontaneous unlabored Yes 07/19/24 12:20 [email or web address] respirations Mental status Awake 07/19/24 12:20 [email or web address] nausea No 07/19/24 12:20 [email or web address] Vomiting No 07/19/24 12:20 [email or web address] Anesthesia Postop Eval I: Fluid Summary Crystalloid volume administer 120 07/19/24 12:20 [email or web address] (ml) Colloids volume administered ( ml) Blood Product volume administered (ml) Total IV fluid infused 120 07/19/24 12:20 [email or web address] Anesthesia Postop Eval I: Summary Notes Anesthesia Complication No 07/19/24 12:20 [email or web address] Anesthesia Complication Comment: Post-operative progress note Anesthesia: Postop Eval II Evaluation Mental status: Awake Pain Level: 0 nausea: No Vomiting: No
--- NOTE | 2024-07-23 15:27 | OP.CCLET_ITS ---
07/19/2024 Isra Rubalcava Re : ERCP procedure for Luiza Hedrickr Khadar This procedure was performed on July. My impressions and recommendations are as follows: Impressions : - The entire biliary tree was dilated, with a stone causing an obstruction. - Choledocholithiasis was found. Complete removal was accomplished by biliary sphincterotomy and balloon extraction. - A biliary sphincterotomy was performed. - The biliary tree was swept. - One stent was removed from the biliary tree. Recommendations : My findings are described in the full procedure note, which is enclosed. If I can be of further assistance, please feel free to contact me at . Sincerely, Doe Orr, 07/19/2024 12:14:04 PM This report has been signed electronically.
--- NOTE | 2024-07-23 15:27 | OP.ERCP_ITS ---
Patient Name: Luiza Galo Procedure Date: 07/19/2024 11:17 AM Date of : 1940 Age: 83 Procedure: ERCP Indications: Bile duct stone(s), Stent removal Providers: Doe Orr DO Medicines: Monitored Anesthesia Care Patient Profile: This is an 83 year old female. Refer to note in patient chart for documentation of history and physical. Patient has symptoms of acute right upper quadrant abdominal pain, chronic dyspepsia and acute jaundice. Complications: No immediate complications. Procedure: Pre-Anesthesia Assessment: - Prior to the procedure, a History and Physical was performed, and patient medications and allergies were reviewed. The patient is competent. The risks and benefits of the procedure and the sedation options and risks were discussed with the patient. All questions were answered and informed consent was obtained. Patient identification and proposed procedure were verified by the physician in the pre-procedure area. Mental Status Examination: alert and oriented. Airway Examination: normal oropharyngeal airway and neck mobility. Respiratory Examination: clear to auscultation. CV Examination: normal. Prophylactic Antibiotics: The patient does not require prophylactic antibiotics. Prior Anticoagulants: The patient has taken no anticoagulant or antiplatelet agents. ASA Grade Assessment: II - A patient with mild systemic disease. After reviewing the risks and benefits, the patient was deemed in satisfactory condition to undergo the procedure. The anesthesia plan was to use monitored anesthesia care (MAC). Immediately prior to administration of medications, the patient was re-assessed for adequacy to receive sedatives. The heart rate, respiratory rate, oxygen saturations, blood pressure, adequacy of pulmonary ventilation, and response to care were monitored throughout the procedure. The physical status of the patient was re-assessed after the procedure. After obtaining informed consent, the scope was passed under direct vision. Throughout the procedure, the patient's blood pressure, pulse, and oxygen saturations were monitored continuously. The Duodenoscope was introduced through the mouth, and advanced to the duodenum and used to inject contrast into the bile duct and ventral pancreatic duct. The ERCP was accomplished without difficulty. The patient tolerated the procedure well. Scope In: 11:53:55 AM Scope Out: 12:06:11 PM Total Procedure Duration Time 0 hours 12 minutes 16 seconds Findings: The calibration checker film was normal. The esophagus was successfully intubated under direct vision. The scope was advanced to a normal major papilla in the descending duodenum without detailed examination of the pharynx, larynx and associated structures, and upper GI tract. The upper GI tract was grossly normal. The bile duct was deeply cannulated with the short-nosed traction sphincterotome. Contrast was injected. I personally interpreted the bile duct images. There was brisk flow of contrast through the ducts. Image quality was adequate. Contrast extended to the entire biliary tree. Opacification of the entire biliary tree except for the cystic duct and gallbladder, entire biliary tree except for the gallbladder and entire biliary tree was successful. The maximum diameter of the ducts was 10 mm. The lower third of the main bile duct contained one stone, which was 6 mm in diameter. The entire biliary tree except for the gallbladder and entire biliary tree were diffusely dilated, with a stone causing an obstruction. The largest diameter was 12 mm. A long 0.025 inch Jagwire was passed into the biliary tree. A 5 mm biliary sphincterotomy was made with a traction (standard) sphincterotome using ERBE electrocautery. There was no post-sphincterotomy bleeding. The biliary tree was swept with a 12 mm balloon starting at the bifurcation. Sludge was swept from the duct. All stones were removed. One stent was removed from the biliary tree using a snare and sent for cytology. The stent was found to be occluded via the water column test. Impression: - The entire biliary tree was dilated, with a stone causing an obstruction. - Choledocholithiasis was found. Complete removal was accomplished by biliary sphincterotomy and balloon extraction. - A biliary sphincterotomy was performed. - The biliary tree was swept. - One stent was removed from the biliary tree. Procedure Code(s): --- Professional --- 87958, Endoscopic retrograde cholangiopancreatography (ERCP); with removal of foreign body(s) or stent(s) from biliary/pancreatic duct(s) 51989, Endoscopic retrograde cholangiopancreatography (ERCP); with removal of calculi/debris from biliary/pancreatic duct(s) 55125, Endoscopic retrograde cholangiopancreatography (ERCP); with sphincterotomy/papillotomy 45188, 26, Endoscopic catheterization of the biliary ductal system, radiological supervision and interpretation CPT copyright 2021 [employer]. All rights reserved. The codes documented in this report are preliminary and upon wind farm support specialist review may be revised to meet current compliance requirements. DO Melina Dominguez/17/2024 12:14:04 PM This report has been signed electronically. Number of Addenda: 0 Note Initiated On: 07/19/2024 11:17 AM
== END 2024-07-19 13:26 | disposition home or self-care (01) ==
LOC: EN 09:41 → AC 09:47
PROVIDERS: PCP Family Medicine; Referring Provider Family Medicine; Visit Provider Internal Medicine Gastroenterology
PROC: (CPT 43260; principal; 2024-07-19 10:55)
DX: K80.51 Calculus of bile duct without cholangitis or cholecystitis with obstruction (principal); Z79.01 Long term (current) use of anticoagulants; Z79.82 Long term (current) use of aspirin; Z79.899 Other long term (current) drug therapy; Z90.49 Acquired absence of other specified parts of digestive tract; Z95.1 Presence of aortocoronary bypass graft
CPT/HCPCS: 43264; 43262; 43275; 74330; 76000; 82962; 88108; 88305; 88313; A4216; J2405

== ENCOUNTER → 2024-08-13 04:00 | Outpatient (REF) | payer MEDICARE, SELFPAY ==
[2024-08-13 07:42] LABS: Absolute Lymphocyte Count 3.57 X10^3/uL (0.83-4.51); Absolute Neutrophil Count 2.7 X10^3/uL (2.0-7.7); Basophil# 0.05 X10^3/uL; Basophil% 0.7 % (0-1); Eosinophil# 0.13 X10^3/uL; Eosinophils% 1.9 % (0-5); Hematocrit 33.7 % (37-47); Lymphocyte # 3.57 X10^3/ul (0.83-4.51); Lymphocyte % 52.3 % (19-41); Mean Corp Hgb Conc 32.6 g/dL (32-36); Mean Corpuscular Hgb 29.8 pg (27.0-32.0); Mean Corpuscular Volume 91.3 fL (81-99); Mean Platelet Vol. 10.1 fl (6.2-12.0); Monocyte# 0.37 X10^3/uL; Monocyte% 5.4 % (0-10); NRBC Flagged by Analyzer 0 % (0-5); Neutrophil % 39.6 % (47-70); Platelet Count 223 K/mm3 (150-450); RBC Distribution Width SD 43.4 fl (35.1-43.9); Red Blood Count 3.69 M/mm3 (4.2-5.4); White Blood Count 6.8 K/mm3 (4.4-11.0)
[2024-08-13 08:16] LABS: Anion Gap 4 (5-15); BUN 14 mg/dL (7-18); BUN/Creat Ratio 16.6 RATIO (10-20); Calcium,Total 8.9 mg/dL (8.5-10.1); Chloride 110 mmol/L (98-107); Creatinine, Serum 0.84 mg/dL (0.55-1.02); EST Glomerular Filtration Rate 69 mL/min (>60); Est Glom Filt Rate - Afr Amer 83 mL/min (>60); Glucose 205 mg/dL (74-106); Potassium 3.6 mmol/L (3.5-5.1); Sodium Level 140 mmol/L (136-145)
[2024-08-13 12:04] LABS: Hemoglobin A1c 7.8 % (3.8-5.6)
== END ==
LOC: OLS.WHLTSB 04:00
PROVIDERS: PCP Family Medicine; Referring Provider Internal Medicine; Visit Provider Internal Medicine
DX: E11.9 Type 2 diabetes mellitus without complications (principal); E16.4 Increased secretion of gastrin; G25.81 Restless legs syndrome; I50.9 Heart failure, unspecified; E66.01 Morbid (severe) obesity due to excess calories; I48.0 Paroxysmal atrial fibrillation
CPT/HCPCS: 36415; 80048; 83036; 85025

== ENCOUNTER → 2024-08-20 | Outpatient (REF) | payer MEDICARE, SELFPAY | LOC: OLS.WHLTSB 05:00 | PROVIDERS: PCP Family Medicine; Visit Provider Internal Medicine | DX: E03.9 Hypothyroidism, unspecified (principal) | CPT/HCPCS: 36415; 84443 ==

== ENCOUNTER → 2024-09-13 05:00 | Outpatient (REF) | payer MEDICARE, SELFPAY | LOC: OLS.WHLTSB 05:00 | PROVIDERS: PCP Family Medicine; Visit Provider Internal Medicine | DX: E87.6 Hypokalemia (principal); G25.81 Restless legs syndrome; I50.9 Heart failure, unspecified; E16.4 Increased secretion of gastrin; E66.01 Morbid (severe) obesity due to excess calories | CPT/HCPCS: 36415; 84132 ==

== ENCOUNTER → 2024-10-01 05:00 | Outpatient (REF) | payer MEDICARE, SELFPAY | LOC: OLS.WHLTSB 05:00 | PROVIDERS: PCP Family Medicine; Visit Provider Internal Medicine | DX: E03.9 Hypothyroidism, unspecified (principal) | CPT/HCPCS: 36415; 84443 ==

== ENCOUNTER → 2024-10-15 | Outpatient (REF) | payer MEDICARE, SELFPAY ==
[2024-10-15 08:49] LABS: Absolute Lymphocyte Count 3.43 X10^3/uL (0.83-4.51); Absolute Neutrophil Count 2.4 X10^3/uL (2.0-7.7); Basophil# 0.04 X10^3/uL; Basophil% 0.6 % (0-1); Eosinophil# 0.12 X10^3/uL; Eosinophils% 1.9 % (0-5); Hematocrit 32.8 % (37-47); Lymphocyte # 3.43 X10^3/ul (0.83-4.51); Lymphocyte % 54.1 % (19-41); Mean Corp Hgb Conc 33.5 g/dL (32-36); Mean Corpuscular Hgb 31.3 pg (27.0-32.0); Mean Corpuscular Volume 93.4 fL (81-99); Monocyte# 0.39 X10^3/uL; Monocyte% 6.2 % (0-10); NRBC Flagged by Analyzer 0 % (0-5); Neutrophil # 2.35 X10^3/uL (2.7-7.7); Platelet Count 246 K/mm3 (150-450); RBC Distribution Width CV 12.7 % (11.6-14.6); RBC Distribution Width SD 43.3 fl (35.1-43.9); Red Blood Count 3.51 M/mm3 (4.2-5.4); White Blood Count 6.3 K/mm3 (4.4-11.0)
[2024-10-15 09:04] LABS: Anion Gap 4 (5-15); BUN 14 mg/dL (7-18); Chloride 109 mmol/L (98-107); Creatinine, Serum 0.94 mg/dL (0.55-1.02); EST Glomerular Filtration Rate 61 mL/min (>60); Est Glom Filt Rate - Afr Amer 74 mL/min (>60); Glucose 217 mg/dL (74-106); Potassium 4.1 mmol/L (3.5-5.1); Sodium Level 139 mmol/L (136-145)
== END ==
LOC: OLS.WHLTSB 06:54
PROVIDERS: PCP Family Medicine; Visit Provider Internal Medicine
DX: I10 Essential (primary) hypertension (principal); E16.4 Increased secretion of gastrin; I50.9 Heart failure, unspecified
CPT/HCPCS: 36415; 80048; 85025

== ENCOUNTER → 2024-11-12 05:00 | Outpatient (REF) | payer MEDICARE, SELFPAY ==
[2024-11-12 08:52] LABS: Absolute Lymphocyte Count 5.06 X10^3/uL (0.83-4.51); Absolute Neutrophil Count 3.8 X10^3/uL (2.0-7.7); Basophil# 0.05 X10^3/uL; Basophil% 0.5 % (0-1); Eosinophil# 0.13 X10^3/uL; Eosinophils% 1.4 % (0-5); Hematocrit 38.9 % (37-47); Hemoglobin 12.7 g/dL (12.0-15.0); Lymphocyte # 5.06 X10^3/ul (0.83-4.51); Lymphocyte % 52.6 % (19-41); Mean Corp Hgb Conc 32.6 g/dL (32-36); Mean Corpuscular Hgb 30.8 pg (27.0-32.0); Mean Corpuscular Volume 94.2 fL (81-99); Mean Platelet Vol. 9.7 fl (6.2-12.0); Monocyte# 0.55 X10^3/uL; Monocyte% 5.7 % (0-10); NRBC Flagged by Analyzer 0 % (0-5); Neutrophil # 3.81 X10^3/uL (2.7-7.7); Neutrophil % 39.6 % (47-70); POSITIVE DIFFERENTIAL YES; Platelet Count 302 K/mm3 (150-450); RBC Distribution Width CV 12.1 % (11.6-14.6); RBC Distribution Width SD 42.1 fl (35.1-43.9); Red Blood Count 4.13 M/mm3 (4.2-5.4); White Blood Count 9.6 K/mm3 (4.4-11.0)
[2024-11-12 08:58] LABS: Differential Indicated SCAN CRITERIA MET
[2024-11-12 09:19] LABS: Anion Gap 7 (5-15); BUN 15 mg/dL (7-18); Calcium,Total 9.7 mg/dL (8.5-10.1); Chloride 108 mmol/L (98-107); EST Glomerular Filtration Rate 56 mL/min (>60); Est Glom Filt Rate - Afr Amer 68 mL/min (>60); Glucose 130 mg/dL (74-106); Potassium 4.2 mmol/L (3.5-5.1); Sodium Level 140 mmol/L (136-145)
[2024-11-12 09:52] LABS: Reactive Lymphocyte 1+
[2024-11-12 09:53] LABS: Hemoglobin A1c 7.2 % (3.8-5.6)
== END ==
LOC: OLS.WHLTSB 05:00
PROVIDERS: PCP Family Medicine; Visit Provider Internal Medicine
DX: E16.4 Increased secretion of gastrin (principal); G25.81 Restless legs syndrome; I50.9 Heart failure, unspecified; I11.0 Hypertensive heart disease with heart failure; E66.01 Morbid (severe) obesity due to excess calories; R07.89 Other chest pain; R19.7 Diarrhea, unspecified
CPT/HCPCS: 36415; 80048; 83036; 84443; 85025

== ENCOUNTER → 2024-12-10 | Outpatient (REF) | payer MEDICARE, SELFPAY ==
[2024-12-10 08:26] LABS: Absolute Lymphocyte Count 3.05 X10^3/uL (0.83-4.51); Absolute Neutrophil Count 2.7 X10^3/uL (2.0-7.7); Basophil# 0.04 X10^3/uL; Basophil% 0.6 % (0-1); Eosinophil# 0.08 X10^3/uL; Eosinophils% 1.3 % (0-5); Hematocrit 33.6 % (37-47); Hemoglobin 11.4 g/dL (12.0-15.0); Lymphocyte # 3.05 X10^3/ul (0.83-4.51); Lymphocyte % 48.1 % (19-41); Mean Corp Hgb Conc 33.9 g/dL (32-36); Mean Corpuscular Hgb 31.4 pg (27.0-32.0); Mean Corpuscular Volume 92.6 fL (81-99); Mean Platelet Vol. 9.7 fl (6.2-12.0); Monocyte# 0.45 X10^3/uL; Monocyte% 7.1 % (0-10); NRBC Flagged by Analyzer 0 % (0-5); Neutrophil # 2.71 X10^3/uL (2.7-7.7); Neutrophil % 42.7 % (47-70); Platelet Count 220 K/mm3 (150-450); RBC Distribution Width CV 11.8 % (11.6-14.6); RBC Distribution Width SD 39.8 fl (35.1-43.9); Red Blood Count 3.63 M/mm3 (4.2-5.4); White Blood Count 6.3 K/mm3 (4.4-11.0)
[2024-12-10 09:04] LABS: Anion Gap 11 (5-15); BUN 20 mg/dL (4-19); BUN/Creat Ratio 21.8 RATIO (10-20); Calcium,Total 9.5 mg/dL (7.6-11.0); Carbon Dioxide 22.1 mmol/L (21.0-32.0); Chloride 107 mmol/L (98-108); EST Glomerular Filtration Rate 64 (>60); Glucose 86 mg/dL (70-99); Potassium 4.1 mmol/L (3.3-5.1); Sodium Level 140 mmol/L (133-145)
== END ==
LOC: OLS.WHL 05:00
PROVIDERS: PCP Family Medicine; Visit Provider Internal Medicine
DX: I10 Essential (primary) hypertension (principal); E16.4 Increased secretion of gastrin; I48.0 Paroxysmal atrial fibrillation
CPT/HCPCS: 36415; 80048; 85025

== ENCOUNTER → 2024-12-24 | Outpatient (REF) | payer MEDICARE, SELFPAY | LOC: OLS.WHLTSB 05:00 | PROVIDERS: PCP Family Medicine; Visit Provider Internal Medicine | DX: E03.9 Hypothyroidism, unspecified (principal) | CPT/HCPCS: 36415; 84443 ==

== ENCOUNTER → 2025-01-10 | Outpatient (REF) | payer MEDICARE, SELFPAY ==
[2025-01-10 07:53] LABS: Absolute Lymphocyte Count 3.42 X10^3/uL (0.83-4.51); Absolute Neutrophil Count 2.7 X10^3/uL (2.0-7.7); Basophil# 0.04 X10^3/uL; Basophil% 0.6 % (0-1); Eosinophil# 0.14 X10^3/uL; Eosinophils% 2.1 % (0-5); Hematocrit 32.1 % (37-47); Hemoglobin 10.8 g/dL (12.0-15.0); Lymphocyte # 3.42 X10^3/ul (0.83-4.51); Lymphocyte % 50.3 % (19-41); Mean Corp Hgb Conc 33.6 g/dL (32-36); Mean Corpuscular Hgb 31.3 pg (27.0-32.0); Mean Platelet Vol. 10.1 fl (6.2-12.0); Monocyte# 0.47 X10^3/uL; Monocyte% 6.9 % (0-10); NRBC Flagged by Analyzer 0 % (0-5); Neutrophil # 2.73 X10^3/uL (2.7-7.7); Neutrophil % 40.1 % (47-70); Platelet Count 223 K/mm3 (150-450); RBC Distribution Width CV 11.9 % (11.6-14.6); RBC Distribution Width SD 40.2 fl (35.1-43.9); Red Blood Count 3.45 M/mm3 (4.2-5.4); White Blood Count 6.8 K/mm3 (4.4-11.0)
== END ==
LOC: OLS.WHLTSB 05:00
PROVIDERS: PCP Family Medicine; Visit Provider Internal Medicine
DX: Z86.711 Personal history of pulmonary embolism (principal); H04.123 Dry eye syndrome of bilateral lacrimal glands; R07.9 Chest pain, unspecified; E87.6 Hypokalemia; E16.4 Increased secretion of gastrin; I48.0 Paroxysmal atrial fibrillation; I50.9 Heart failure, unspecified
CPT/HCPCS: 36415; 85025

== ENCOUNTER → 2025-01-14 | Outpatient (REF) | payer MEDICARE, SELFPAY ==
[2025-01-14 08:51] LABS: Absolute Lymphocyte Count 3.03 X10^3/uL (0.83-4.51); Absolute Neutrophil Count 3.7 X10^3/uL (2.0-7.7); Basophil# 0.03 X10^3/uL; Basophil% 0.4 % (0-1); Eosinophils% 1.3 % (0-5); Hematocrit 31.3 % (37-47); Hemoglobin 10.5 g/dL (12.0-15.0); Lymphocyte # 3.03 X10^3/ul (0.83-4.51); Lymphocyte % 40.3 % (19-41); Mean Corp Hgb Conc 33.5 g/dL (32-36); Mean Corpuscular Hgb 31.5 pg (27.0-32.0); Mean Platelet Vol. 10.3 fl (6.2-12.0); Monocyte# 0.63 X10^3/uL; Monocyte% 8.4 % (0-10); NRBC Flagged by Analyzer 0 % (0-5); Neutrophil # 3.71 X10^3/uL (2.7-7.7); Neutrophil % 49.5 % (47-70); Platelet Count 219 K/mm3 (150-450); Red Blood Count 3.33 M/mm3 (4.2-5.4); White Blood Count 7.5 K/mm3 (4.4-11.0)
[2025-01-14 09:09] LABS: Anion Gap 11 (5-15); BUN 18 mg/dL (4-19); BUN/Creat Ratio 20.4 RATIO (10-20); Calcium,Total 9.5 mg/dL (7.6-11.0); Carbon Dioxide 23.1 mmol/L (21.0-32.0); Chloride 104 mmol/L (98-108); Creatinine, Serum 0.88 mg/dL (0.70-1.20); EST Glomerular Filtration Rate 66 (>60); Glucose 148 mg/dL (70-99); Potassium 4.2 mmol/L (3.3-5.1); Sodium Level 138 mmol/L (133-145)
== END ==
LOC: OLS.WHLTSB 05:00
PROVIDERS: PCP Family Medicine; Visit Provider Internal Medicine
DX: I11.0 Hypertensive heart disease with heart failure (principal); E16.4 Increased secretion of gastrin; G25.81 Restless legs syndrome; I48.0 Paroxysmal atrial fibrillation; I50.9 Heart failure, unspecified
CPT/HCPCS: 36415; 80048; 85025

== ENCOUNTER → 2025-02-04 | Outpatient (REF) | payer MEDICARE, SELFPAY | LOC: OLS.WHLTSB 05:00 | PROVIDERS: PCP Family Medicine; Visit Provider Internal Medicine | DX: E03.9 Hypothyroidism, unspecified (principal) | CPT/HCPCS: 36415; 84443 ==

== ENCOUNTER → 2025-02-11 | Outpatient (REF) | payer MEDICARE, SELFPAY ==
[2025-02-11 10:08] LABS: Absolute Lymphocyte Count 3.25 X10^3/uL (0.83-4.51); Absolute Neutrophil Count 3.2 X10^3/uL (2.0-7.7); Basophil# 0.05 X10^3/uL; Basophil% 0.7 % (0-1); Eosinophil# 0.14 X10^3/uL; Eosinophils% 1.9 % (0-5); Hematocrit 33.6 % (37-47); Lymphocyte # 3.25 X10^3/ul (0.83-4.51); Lymphocyte % 45.2 % (19-41); Mean Corp Hgb Conc 32.7 g/dL (32-36); Mean Corpuscular Hgb 30.7 pg (27.0-32.0); Mean Corpuscular Volume 93.9 fL (81-99); Mean Platelet Vol. 10.1 fl (6.2-12.0); NRBC Flagged by Analyzer 0 % (0-5); Neutrophil # 3.23 X10^3/uL (2.7-7.7); Neutrophil % 44.9 % (47-70); Platelet Count 225 K/mm3 (150-450); RBC Distribution Width CV 12.4 % (11.6-14.6); RBC Distribution Width SD 42.6 fl (35.1-43.9); Red Blood Count 3.58 M/mm3 (4.2-5.4); White Blood Count 7.2 K/mm3 (4.4-11.0)
[2025-02-11 10:23] LABS: Anion Gap 11 (5-15); BUN 19 mg/dL (4-19); BUN/Creat Ratio 20.8 RATIO (10-20); Calcium,Total 9.4 mg/dL (7.6-11.0); Carbon Dioxide 23.4 mmol/L (21.0-32.0); Chloride 106 mmol/L (98-108); Creatinine, Serum 0.93 mg/dL (0.70-1.20); EST Glomerular Filtration Rate 61 (>60); Glucose 191 mg/dL (70-99); Potassium 3.8 mmol/L (3.3-5.1); Sodium Level 140 mmol/L (133-145)
[2025-02-11 10:24] LABS: Hemoglobin A1c 7.3 % (<=5.6)
== END ==
LOC: OLS.WHLTSB 05:00
PROVIDERS: PCP Family Medicine; Visit Provider Internal Medicine
DX: E16.4 Increased secretion of gastrin (principal); I10 Essential (primary) hypertension; I48.0 Paroxysmal atrial fibrillation; E11.9 Type 2 diabetes mellitus without complications
CPT/HCPCS: 36415; 80048; 83036; 85025

== ENCOUNTER → 2025-03-04 13:17 | Outpatient (REF) | payer MEDICARE, SELFPAY | LOC: OLS.WHLTSB 13:17 | PROVIDERS: PCP Family Medicine; Visit Provider Nurse Practitioner Adult Health | DX: Z79.01 Long term (current) use of anticoagulants (principal); S81.802A Unspecified open wound, left lower leg, initial encounter | CPT/HCPCS: 87070; 87205 ==

== ENCOUNTER → 2025-03-06 05:00 | Outpatient (REF) | payer MEDICARE, SELFPAY ==
[2025-03-06 07:23] LABS: Absolute Lymphocyte Count 1.67 X10^3/uL (0.83-4.51); Absolute Neutrophil Count 4.4 X10^3/uL (2.0-7.7); Basophil# 0.03 X10^3/uL; Basophil% 0.4 % (0-1); Eosinophil# 0.03 X10^3/uL; Eosinophils% 0.4 % (0-5); Hematocrit 33.8 % (37-47); Hemoglobin 11.4 g/dL (12.0-15.0); Lymphocyte # 1.67 X10^3/ul (0.83-4.51); Lymphocyte % 24.9 % (19-41); Mean Corp Hgb Conc 33.7 g/dL (32-36); Mean Corpuscular Hgb 30.4 pg (27.0-32.0); Mean Corpuscular Volume 90.1 fL (81-99); Mean Platelet Vol. 9.9 fl (6.2-12.0); Monocyte% 8.9 % (0-10); NRBC Flagged by Analyzer 0 % (0-5); Neutrophil # 4.37 X10^3/uL (2.7-7.7); Neutrophil % 65.1 % (47-70); Platelet Count 196 K/mm3 (150-450); RBC Distribution Width CV 12.4 % (11.6-14.6); RBC Distribution Width SD 41.1 fl (35.1-43.9); Red Blood Count 3.75 M/mm3 (4.2-5.4); White Blood Count 6.7 K/mm3 (4.4-11.0)
[2025-03-06 07:31] LABS: Anion Gap 11 (5-15); BUN 19 mg/dL (4-19); BUN/Creat Ratio 19.5 RATIO (10-20); Calcium,Total 9.1 mg/dL (7.6-11.0); Carbon Dioxide 22.4 mmol/L (21.0-32.0); Chloride 100 mmol/L (98-108); Creatinine, Serum 0.95 mg/dL (0.70-1.20); EST Glomerular Filtration Rate 60 (>60); Glucose 143 mg/dL (70-99); Potassium 4.2 mmol/L (3.3-5.1); Sodium Level 133 mmol/L (133-145)
== END ==
LOC: OLS.WHLTSB 05:00
PROVIDERS: PCP Family Medicine; Visit Provider Internal Medicine
DX: R50.9 Fever, unspecified (principal); R05.9 Cough, unspecified; R19.7 Diarrhea, unspecified; L29.9 Pruritus, unspecified; D64.9 Anemia, unspecified; H04.123 Dry eye syndrome of bilateral lacrimal glands; R07.9 Chest pain, unspecified; E87.6 Hypokalemia
CPT/HCPCS: 36415; 80048; 85025

== ENCOUNTER → 2025-03-11 04:00 | Outpatient (REF) | payer MEDICARE, SELFPAY ==
--- OUTSIDE RECORDS SUMMARY | 2025-03-11 03:52 | XMS RPT_ITS | CCD ---
Author Organization [facility] Care Team Providers Care Product Manufacturing Professional Name Role Phone BOLOGNA, TEJAL A Unavailable Unavailable RUBALCAVA, ROSALIND D Unavailable Unavailable BOLOGNA, TEJAL A Unavailable Unavailable RUBALCAVA, ROSALIND D Unavailable Unavailable BERNHART, JONA Unavailable Unavailable RUBALCAVA, ROSALIND D Unavailable Unavailable BOLOGNA, TEJAL A Unavailable Unavailable RUBALCAVA, ROSALIND D Unavailable Unavailable RUBALCAVA, ROSALIND D Unavailable Unavailable BERNHART, JONA Unavailable Unavailable RUBALCAVA, ROSALIND D Unavailable Unavailable RUBALCAVA, ROSALIND D Unavailable Unavailable BERNHART, JONA Unavailable Unavailable RUBALCAVA, ROSALIND D Unavailable Unavailable BERNHART, JONA Unavailable Unavailable RUBALCAVA, ROSALIND D Unavailable Unavailable RUBALCAVA, ROSALIND D Unavailable Unavailable BOLOGNA, TEJAL A Unavailable Unavailable BOLOGNA, TEJAL A Unavailable Unavailable RUBALCAVA, ROSALIND D Unavailable Unavailable BERNHART, JONA Unavailable Unavailable BOLOGNA, TEJAL A Unavailable Unavailable RUBALCAVA, ROSALIND D Unavailable Unavailable RUBALCAVA, ROSALIND D Unavailable Unavailable RUBALCAVA, ROSALIND D Unavailable Unavailable ARYA, SAMIR Unavailable Unavailable RUBALCAVA, ROSALIND D Unavailable Unavailable ARYA, SAMIR Unavailable Unavailable ARYA, SAMIR Unavailable Unavailable ARYA, SAMIR Unavailable Unavailable RUBALCAVA, ROSALIND D Unavailable Unavailable ARYA, SAMIR Unavailable Unavailable ARYA, SAMIR Unavailable Unavailable RUBALCAVA, ROSALIND D Unavailable Unavailable ARYA, SAMIR Unavailable Unavailable ARYA, SAMIR Unavailable Unavailable RUBALCAVA, ROSALIND D Unavailable Unavailable ARYA, SAMIR Unavailable Unavailable ARYA, SAMIR Unavailable Unavailable RUBALCAVA, ROSALIND D Unavailable Unavailable ARYA, SAMIR Unavailable Unavailable ARYA, SAMIR Unavailable Unavailable RUBALCAVA, ROSALIND D Unavailable Unavailable ARYA, SAMIR Unavailable Unavailable ARYA, SAMIR Unavailable Unavailable RUBALCAVA, ROSALIND D Unavailable Unavailable ARYA, SAMIR Unavailable Unavailable ARYA, SAMIR Unavailable Unavailable RUBALCAVA, ROSALIND D Unavailable Unavailable Rosalind Rubalcava MD Primary Care Provider ROSALIND RUBALCAVA MD Primary Care Physician Matt PT, Flor Unavailable Unavailable Dr. Rosalind Rubalcava Primary Care Provider Dr. Rosalind uRbalcava Referring Provider Brian HOLLEY, KISHAN-C Katalina Attending Provider Dr. Papo Morillo Emergency Provider Dr. Octavia Gruber Admit Provider Dr. Octavia Gruber Attending Provider Dr. Octavia Gruber Other Provider Dr. Alee Yao Other Provider Dr. Doe Orr Attending Provider Dr. Alee Yao Attending Provider 1([facility])[phone] Alee Yao Referring Provider Dr. Rosalind Rubalcava Primary Care Provider Dr. Rosalind Rubalcava Referring Provider Brian HOLLEY, KISHAN-David Rela Attending Provider Dr. Papo Morillo Emergency Provider Dr. Octavia Gruber Admit Provider Dr. Octavia Gruber Attending Provider Dr. Octavia Gruber Other Provider Dr. Alee Yao Referring Provider Dr. Alee Yao Other Provider Dr. Doe Orr Attending Provider Dr. Alee Yao Attending Provider Dr. Enrrique Eric Emergency Provider Dr. Judson Hernandez Admit Provider Dr. Judson Hernandez Other Provider Dr. Cirilo Fine Attending Provider Dr. Cirilo Fine Other Provider Dr. Rosalind Rubalcava Primary Care Provider Dr. Ernrique Eric Emergency Provider Dr. Judson Hernandez Admit Provider Dr. Judson Hernandez Other Provider Dr. Cirilo Fine Attending Provider Dr. Cirilo Fine Other Provider Dr. Rosalind Rubalcava Referring Provider Brian COMMERCIAL INTERN, COMMERCIAL INTERN-C Katalina Attending Provider Dr. Doe Orr Attending Provider 1([facility])[phone] Dr. Rosalind Rubalcava Primary Care Provider Dr. Rosalind Rubalcava Referring Provider [phone] Brian COMMERCIAL INTERN, COMMERCIAL INTERN-C Katalina Attending Provider Dr. Doe Orr Attending Provider 1([facility])[phone] Dr. Pawan Reed Attending Provider ROSALIND RUBALCAVA MD Attending Unavailable ROSALIND RUBALCAVA MD Primary Care Unavailable ROSALIND RUBALCAVA MD Attending Unavailable ROSALIND RUBALCAVA MD Primary Care Unavailable ROSALIND RUBALCAVA MD Attending Unavailable ROSALIND RUBALCAVA MD Primary Care Unavailable ROSALIND RUBALCAVA MD Attending Unavailable ROSALIND RUBALCAVA MD Primary Care Unavailable ROSALIND RUBALCAVA MD Attending Unavailable ROSALIND RUBALCAVA MD Primary Care Unavailable KATALINA MANCINI Attending Unavailable ROSALIND RUBALCAVA MD Primary Care Unavailable ROSALIND RUBALCAVA MD Attending Unavailable ROSALIND RUBALCAVA MD Primary Care Unavailable ROSALIND RUBALCAVA MD Attending Unavailable ROSALIND RUBALCAVA MD Primary Care Unavailable Dr. Rosalind Rubalcava MD Primary Care Provider Laverne Lea MD Attending Provider Unavailtyesha Jones NP-CJing Attending Provider Dr. Rosalind Rubalcava MD Primary Care Provider Laverne Lea MD Attending Provider UnavailDr. Rosalind Dias MD Primary Care Provider Laverne Lea MD Attending Provider Unavaila caden Jones COMMERCIAL INTERN-C, Jing Attending Provider Tickreggie COMMERCIAL INTERN-C, Jing Attending Provider Tickreggie COMMERCIAL INTERN-C, Jing Attending Provider [place]ickton COMMERCIAL INTERN-C, Jing Attending Provider Oleghe OLS, Efewongbe Attending Unavailabl e Ruablcava, Rosalind Primary Care Unavailable Oleghe OLS, Efewongbe Attending Unavailabl e Rubalcava, Rosalind Primary Care Unavailable Oleghe OLS, Efewongbe Attending Unavailabl e Rubalcava, Rosalind Primary Care Unavailable Doe Orr Attending Unavailable Rosalind Rubalcava Referring Unavailable Rubalcava, Rosalind Primary Care Unavailable Oleghe OLS, Efewongbe Attending Unavailabl e Rubalcava, Rosalind Primary Care Unavailable Oleghe OLS, Efewongbe Attending Unavailabl e Rubalcava, Rosalind Primary Care Unavailable Oleghe OLS, Efewongbe Attending Unavailabl e Rubalcava, Rosalind Primary Care Unavailable Oleghe OLS, Efewongbe Attending Unavailabl e Rubalcava, Rosalind Primary Care Unavailable Oleghe OLS, Efewongbe Attending Unavailabl e Rubalcava, Rosalind Primary Care Unavailable Oleghe OLS, Efewongbe Attending Unavailabl e Rubalcava, Rosalind Primary Care Unavailable Oleghe OLS, Efewongbe Referring Unavailabl e Oleghe OLS, Efewongbe Attending Unavailabl e Rubalcava, Rosalind Primary Care Unavailable Rubalcava, Rosalind Primary Care Unavailable Tickton Jing VICTORIA Attending Unavailable Oleghe OLS, Efewongbe Attending Unavailabl e Rubalcava, Rosalind Primary Care Unavailable Oleghe OLS, Efewongbe Attending Unavailabl e Rubalcava, Rosalind Primary Care Unavailable Rubalcava, Rosalind Primary Care Unavailable Enrrique Eric Attending Unavailable Rubalcava, Rosalind Primary Care Unavailable Tonny Herbert Attending Unavailable Oleghe OLS, Efewongbe Attending Unavailabl e Rubalcava, Rosalind Primary Care Unavailable Oleghe OLS, Efewongbe Attending Unavailabl e Rubalcava, Rosalind Primary Care Unavailable [place]ton COMMERCIAL INTERN, Jing Attending Unavailable Khadar, Rosalind Primary Care Unavailable Fausto Wright Consulting Unavailable Fausto Wright Admitting Unavailable Rubalcava, Rosalind Primary Care Unavailable Derek, Pawan Attending Unavailable El Best Consulting Unavailable Oleghe OLS, Efewongbe Attending Unavailabl e Rubalcava, Rosalind Primary Care Unavailable Fausto Wright Admitting Unavailable AgyeponFausto ballard Consulting Unavailable Rubalcava, Rosalind Primary Care Unavailable Kitsouleymane, El Attending Unavailable [place]ton COMMERCIAL INTERN, Jing Attending Unavailable Rubalcava, Rosalind Primary Care Unavailable Oleghe OLS, Efewongbe Attending Unavailabl e Rubalcava, Rosalind Primary Care Unavailable Friend, Doe Attending Unavailable Friend, Doe Consulting Unavailable Rubalcava, Rosalind Primary Care Unavailable Rubalcava, Rosalind Referring Unavailable El Best Attending Unavailable Agjose, Fausto Attending Unavailable Tickton COMMERCIAL INTERN, Jing Attending Unavailable Rubalcava, Rosalind Primary Care Unavailable Tickton COMMERCIAL INTERN, Jing Attending Unavailable Rubalcava, Rosalind Primary Care Unavailable T[place]ton COMMERCIAL INTERN, Jing Attending Unavailable Rubalcava, Rosalind Primary Care Unavailable Rubalcava, Rosalind Primary Care Unavailable T[place]ton COMMERCIAL INTERN, Jing Attending Unavailable Rubalcava, Rosalind Primary Care Unavailable T[place]ton COMMERCIAL INTERN, Jing Attending Unavailable Oleghe, Efewongbe Attending Unavailable Rubalcava, Rosalind Primary Care Unavailable Friend, Doe Attending Unavailable Rubalcava, Rosalind Primary Care Unavailable Rubalcava, Rosalind Referring Unavailable Rubalcava, Rosalind Primary Care Unavailable Derek, Pawan Attending Unavailable Derek, [place] Referring Unavailable Rubalcava, Rosalind Primary Care Unavailable Deric Cortez Attending Unavailable Rubalcava, Rosalind Referring Unavailable Rubalcava, Rosalind Primary Care Unavailable Derek, [place] Attending Unavailable Rubalcava, Rosalind Referring Unavailable Oleghe OLS, Efewongbe Attending Unavailabl e Rubalcava, Rosalind Primary Care Unavailable Oleghe OLS, Efewongbe Attending Unavailabl e Rubalcava, Rosalind Primary Care Unavailable Oleghe OLS, Efewongbe Attending Unavailabl e Rubalcava, Rosalind Primary Care Unavailable Oleghe OLS, Efewongbe Attending Unavailabl e Rubalcava, Rosalind Primary Care Unavailable Oleghe OLS, Efewongbe Attending Unavailabl e Rubalcava, Rosalind Primary Care Unavailable Tickton COMMERCIAL INTERN, Jing Attending Unavailable Rubalcava, Rosalind Primary Care Unavailable Allergies Allergy Classification Reported Allergen(s) Allergy Type Date of Onset Reaction(s) Facility (20 sources) codeine; 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: [CODEINE] Drug Allergy 2 Other: See Comments [facility] (20 sources) Latex; 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: [LATEX] Propensity to adverse reactions (disorder) 8 Hives [facility] Comment on above: only allergic when a lready sick (6 sources) metFORMIN; 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: [METFORMIN] Drug Allergy 7 Unknown [facility] (16 sources) SITagliptin; 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: [SITAGLIPTIN] Drug Allergy 7 Unknown [facility] (20 sources) Promethazine; 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: [promethazine] Drug Allergy 3 PT UNSURE OF REACTION [facility] (20 sources) tiZANidine; 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: [tizanidine] Drug Allergy 3 SICK, DIZZINESS, Unknown [facility] (15 sources) atorvastatin Drug Allergy 3 Unknown [facility] (15 sources) insulin degludec Drug Allergy 3 Nausea [facility] (15 sources) insulin isophane Drug Allergy 3 heart burn [facility] (15 sources) liraglutide Drug Allergy 3 Nausea [facility] (16 sources) SITagliptin; 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: [sitagliptin phosphate] Drug Allergy 3 Unknown [facility] (15 sources) Anesthetics - Amide Type - Select A Allergy to substance 3 NEEDS FOLLOW-UP [facility] (15 sources) Anesthetics - Tyra Type- Parabens Allergy to substance 3 NEEDS FOLLOW-UP [facility] (1 source) atorvastatin Drug Allergy 4 [facility] (1 source) insulin degludec Drug Allergy 4 [facility] (1 source) insulin isophane Drug Allergy 4 [facility] (1 source) liraglutide Drug Allergy 4 [facility] (1 source) Promethazine Drug Allergy 4 [facility] (1 source) tiZANidine Drug Allergy 4 [facility] (1 source) Anesthetics - Amide Type - Select A Drug allergy (disorder) 4 [facility] (1 source) Anesthetics - Tyra Type- Parabens Drug allergy (disorder) 4 [facility] Medications Current Medications Medication Drug Class(es) Dates Sig (Normalized) Sig (Original) acetaminophen 500 mg oral tablet (20 sources) Start: 02-18-2023 Tylenol Extra Strength 500 mg oral tablet Dose : 1,000 mg = 2 tab(s), Oral, q4h, PRN as needed for pain, # 120 tab(s), 1 Refill(s), Pharmacy: [facility] [id number], 155.5, cm, 02/11/23 10:54:00 EDT, Height, kg, 02/11/23 10:54:00 EDT, Dosing Weight Start Date: 02/18/23 Status: Ordered Start: 10-29-2022 Tylenol Extra Strength 500 mg oral tablet Dose : 1,000 mg = 2 tab(s), Oral, q4h, PRN as needed for pain, # 120 tab(s), 1 Refill(s), Pharmacy: [facility] [id number], 157, cm, 10/13/22 15:01:00 EST, Height, kg, 10/13/22 15:01:00 EST, Dosing Weight Start Date: 10/29/22 Status: Ordered Start: 05-19-2022 take 2 tablets by mo uth every four hours as needed for pain Acetaminophen (Tylenol Extra Strength) 500 mg tablet Active 1000 mg PO Q4H as needed for pain May 19, 2022 12:00am Start: 05-08-2021 Tylenol Extra Strength 500 mg oral tablet Dose : 1,000 mg = 2 tab(s), Oral, q4h, PRN as needed for pain, # 120 tab(s), 0 Refill(s) Start Date: 05/08/21 Status: Ordered Start: 09-05-2017 End: 11-03-2017 take 2 tablets by mouth every eight hours as needed for pain Acetaminophen 500 MG tablet Discontinued 1000 mg PO Q8H as needed for Pain September 05, 2017 1:00am November 03, 2017 5:06pm Start: 09-05-2017 End: 11-03-2017 take 1000 mg by mouth every eight hours Acetaminophen Discontinued 1000 MG PO Q8H September 05, 2017 1:00am November 03, 2017 5:06pm Start: 09-05-2017 End: 11-03-2017 Comment on above: Take 500 mg by mouth . apixaban 5 mg oral tablet (20 sources) Factor Xa Inhibitor Start: 01-10-2025 take 2.5 mg by mouth twice daily Apixaban (Eliquis) 5 mg tablet Active 2.5 mg PO TWICE A DAY 180 January 10, 2025 3:20pm Start: 10-25-2023 End: 04-12-2025 take 1 tablet by mouth twice daily Apixaban (Eliquis) 5 mg tablet Discontinued 5 mg PO TWICE A DAY 180 October 25, 2023 2:22pm January 10, 2025 3:20pm Start: 04-20-2023 End: 10-25-2023 take 1 tablet by mouth every twelve hours Apixaban (Eliquis) 5 mg tablet Discontinued 5 mg PO Q12H April 20, 2023 12:00am October 25, 2023 2:22pm Start: 04-08-2023 End: 04-02-2024 Eliquis 5 mg oral tablet Dos e : 5 mg = 1 tab(s), Oral, BID, Patient is going off warfarin today and will start Eliquis on April 13, # 60 tab(s), 11 Refill(s), Pharmacy: [facility] - [id number], 155, cm, 04/08/23 11:20:00 EDT, Height, 90, kg, 04/08/23 11:20:00 EDT, Dosing Weight Start Date: 04/08/23 Stop Date: 04/02/24 Status: Ordered Start: 10-22-2021 End: 10-17-2022 Eliquis 5 mg oral tablet Dos e : 5 mg = 1 tab(s), Oral, BID, # 60 tab(s), 11 Refill(s), Pharmacy: [facility]/pharmacy #[id number], 157, cm, 10/22/21 10:32:00 EST, Height, 85, kg, 10/22/21 10:32:00 EST, Dosing Weight Start Date: 10/22/21 Stop Date: 10/17/22 Status: Ordered aspirin 81 mg delayed release oral tablet (20 sources) Platelet Aggregation Inhibitor, Nonsteroidal Anti-inflammatory Drug Start: 04-01-2024 End: 04-01-2024 take 1 tablet by mouth at breakfast Aspirin 81 mg Tablet,Delayed Release (Dr/Ec) Active 81 mg PO WITH BREAKFAST 0 April 02, 2024 12:00am On Hold: None Start: 08-14-2023 End: 10-24-2023 take 1 tablet by mouth once daily Aspirin (Enteric Coated Aspirin) 81 mg tablet,delayed release (DR/EC) Discontinued 81 mg PO DAILY August 14, 2023 1:00am October 24, 2023 12:06pm Start: 02-05-2013 End: 06-07-2023 take 1 tablet by mouth once daily Aspirin 81 mg tablet,delayed release (DR/EC) Discontinued 81 mg PO daily November 03, 2017 1:00am June 07, 2023 8:56pm Start: 02-05-2013 aspirin 81 mg oral delayed release tablet Dose : 81 mg = 1 tab(s), Oral, qDay, 0 Refill(s) Start Date: 02/05/13 Status: Ordered atorvastatin 40 mg oral tablet (20 sources) HMG-CoA Reductase Inhibitor Start: 11-03-2017 End: 03-02-2018 take 1 tablet by mouth once daily Atorvastatin 40 mg tablet Active 40 mg PO daily March 02, 2018 10:53am Start: 07-27-2017 End: 09-03-2017 take 1 tablet by mouth at bedtime Atorvastatin 40 MG tablet Discontinued 40 mg PO AT BEDTIME July 27, 2017 12:00am September 03, 2017 3:13pm BP cuff (13 sources) Start: 01-20-2022 BP cuff Active 0 .Route .MEDSUPPLY January 19, 2022 11:00pm As directed Start: 01-20-2022 BP cuff Active 0 .Route .MEDSUPPLY January 20, 2022 12:00am As directed cephalexin 500 mg oral capsule (7 sources) Cephalosporin Antibacterial Start: 03-04-2023 End: 03-11-2023 cephalexin 500 mg oral capsule Dose : 500 mg = 1 cap(s), Oral, q8h, X 7 day(s), # 21 cap(s), 0 Refill(s), 03/11/23 14:45:00 EDT, Pharmacy: [facility] [id number], UTI (urinary tract infection), 155, cm, 03/04/23 13:08:00 EDT, Height, 90.9 Start Date: 03/04/23 Stop Date: 03/11/23 Status: Ordered Start: 12-17-2022 End: 12-24-2022 cephalexin 500 mg oral capsu le Dose : 500 mg = 1 cap(s), Oral, TID, X 7 day(s), # 21 cap(s), 0 Refill(s), 12/24/22 9:33:00 EDT, Pharmacy: [facility] [id number], Atrial fibrillation Anticoagulant long-term use, 157, cm, 12/17/22 8:53:00 EDT, Height, 89.1 Start Date: 12/17/22 Stop Date: 12/24/22 Status: Ordered Start: 04-06-2022 End: 04-06-2022 cephALEXin 500 mg cap(s) (KE FLEX) Start: 02-19-2022 End: 02-26-2022 cephalexin 500 mg oral capsu le Dose : 500 mg = 1 cap(s), Oral, q8h, X 7 day(s), # 21 cap(s), 0 Refill(s), 02/26/22 13:18:00 EDT, Pharmacy: [facility]/pharmacy #[id number], 157, cm, 02/19/22 12:58:00 EDT, Height, 85.9 Start Date: 02/19/22 Stop Date: 02/26/22 Status: Ordered Start: 09-17-2021 End: 09-24-2021 Keflex 500 mg oral capsule D ose : 500 mg = 1 cap(s), Oral, q12h, X 7 day(s), # 14 cap(s), 0 Refill(s), 09/24/21 14:50:00 EST, Pharmacy: [facility]/pharmacy #[id number], UTI symptoms, 156.8, cm, 09/17/21 14:03:00 EST, Height, 85.6, kg, 09/17/21 14:03:00 EST, Dosing Weight Start Date: 09/17/21 Stop Date: 09/24/21 Status: Ordered Start: 09-02-2021 End: 09-02-2021 cephALEXin 500 mg cap(s) (KE FLEX) cholecalciferol 0.125 mg oral capsule (15 sources) Vitamin D Start: 01-20-2022 take 1 capsule by mouth once daily Cholecalciferol (Vitamin D3) 125 mcg (5,000 unit) capsule Active 125 ug PO DAILY January 20, 2022 12:00am DME MISCellaneous (5 sources) Start: 10-13-2023 DME MISCellane ous See Instructions, glucometer., # 1 EA, 0 Refill(s), Pharmacy: [place] [id number], 154, cm, 08/31/23 11:39:00 EST, Height, 81, kg, 08/31/23 11:39:00 EST, Dosing Weight Start Date: 10/13/23 Status: Ordered Start: 06-17-2022 DME MISCellane ous See Instructions, glucometer., # 1 EA, 0 Refill(s), 85.7 Start Date: 06/17/22 Status: Ordered escitalopram 10 mg oral tablet (20 sources) Serotonin Reuptake Inhibitor Start: 07-17-2024 take 1 tablet by mouth once daily Escitalopram Oxalate 10 mg tablet Active 10 mg PO DAILY July 17, 2024 12:00am Start: 01-06-2022 End: 05-21-2024 take 1 tablet by mouth once daily Escitalopram Oxalate (Lexapro) 10 mg tablet Discontinued 10 mg PO DAILY January 20, 2022 12:00am April 01, 2024 9:07pm Start: 07-22-2021 Lexapro 10 mg oral tablet Dose : 10 mg = 1 tab(s), Oral, qDay, # 90 tab(s), 1 Refill(s), Pharmacy: [facility]/pharmacy #[id number], Recurrent depression, 157, cm, 07/22/21 15:01:00 EDT, Height, kg, 07/22/21 15:01:00 EDT, Dosing Weight Start Date: 07/22/21 Status: Ordered Gemtesa (2 sources) Start: 02-11-2023 take 1 mg by mouth once daily Gemtesa mg =, Oral, qDay, 0 Refill(s) Start Date: 02/11/23 Status: Ordered hydrALAZINE hydrochloride 25 mg oral tablet (12 sources) Arteriolar Vasodilator Start: 07-17-2024 take 1 tablet by mouth three times daily Hydralazine 25 mg Tablet Active 25 mg PO THREE TIMES A DAY July 17, 2024 12:00am Start: 04-02-2024 End: 07-17-2024 take 1 tablet by mouth twice daily Hydralazine 25 mg Tablet Discontinued 25 mg PO TWICE A DAY 120 April 02, 2024 12:00am July 17, 2024 12:31pm 3 ml insulin degludec 200 unt/ml pen injector (20 sources) Insulin Analog Start: 03-30-2024 End: 09-26-2024 inject 1 dose by subcutaneous injection once daily Tresiba FlexTouch 200 units/mL 3 mL subcutaneous solution Dose : 25 unit(s) =, Subcutaneous, qDay, rotate injection sites, # 9 mL, 5 Refill(s), Pharmacy: [place] [id number], 154, cm, 03/30/24 8:57:00 EDT, Height, kg, 03/30/24 8:57:00 EDT, Dosing Weight Start Date: 03/30/24 Stop Date: 09/26/24 Status: Ordered Start: 2023 End: 02-05-2024 inject 1 dose by subcutaneous injection once daily Tresiba FlexTouch 200 units/mL 3 mL subcutaneous solution Dose : 30 unit(s) =, Subcutaneous, qDay, rotate injection sites, # 9 mL, 5 Refill(s), Pharmacy: [place] [id number], 155, cm, 08/09/23 10:54:00 EST, Height, kg, 08/09/23 10:37:00 EST, Dosing Weight Start Date: 08/09/23 Stop Date: 02/05/24 Status: Ordered Start: 05-19-2022 End: 05-17-2023 Insulin Degludec Discontinue d 40 UNIT SC AT BEDTIME May 19, 2022 9:39am May 17, 2023 1:45pm Start: 05-19-2022 End: 05-17-2023 Insulin Degludec Discontinue d 40 UNIT SC AT BEDTIME May 19, 2022 10:39am May 17, 2023 2:45pm Start: 05-27-2021 End: 03-06-2023 inject 1 dose by subcutaneous injection once daily Tresiba FlexTouch 200 units/mL 3 mL subcutaneous solution Dose : 40 unit(s) =, Subcutaneous, qDay, rotate injection sites, # 2 EA, 5 Refill(s), Pharmacy: [place] [id number], 157, cm, 08/25/22 16:05:00 EST, Height, kg, 08/25/22 16:05:00 EST, Dosing Weight Start Date: 09/07/22 Stop Date: 03/06/23 Status: Ordered Start: 02-19-2021 End: 05-19-2022 Insulin Degludec 200 unit/mL (3 mL) insulin pen Discontinued 50 U SC AT BEDTIME February 19, 2021 3:38pm May 19, 2022 10:41am Start: 01-22-2021 End: 02-19-2021 Insulin Degludec 200 unit/mL (3 mL) insulin pen Discontinued 25 U SC AT BEDTIME 7.5 January 22, 2021 12:22pm February 19, 2021 3:39pm Start: 11-23-2019 End: 01-22-2021 Insulin Degludec 200 unit/mL (3 mL) insulin pen Discontinued 50 U SC AT BEDTIME 7.5 November 23, 2019 4:37pm January 22, 2021 12:22pm Start: 12-29-2018 End: 11-23-2019 Insulin Degludec 200 unit/mL (3 mL) insulin pen Discontinued SC 9 December 29, 2018 12:00am November 23, 2019 4:41pm Start: 12-29-2018 End: 05-19-2022 Insulin Degludec Discontinue d SC 9 December 29, 2018 12:00am November 23, 2019 4:41pm Comment on above: Inject 40 Units subc utaneously once daily. Insulin Degludec (Tresiba U-100 Insulin) 100 unit/mL solution (6 sources) Start: 04-01-20 Insulin Degludec (Tresiba U-100 Insulin) 100 unit/mL solution Active 25 U SC DAILY April 01, 2024 12:00am levothyroxine sodium 0.05 mg oral tablet (20 sources) l-Thyroxine Start: 04-19-20 take 1 tablet by mouth once daily Levothyroxine 50 mcg tablet Active 50 ug PO DAILY April 19, 2024 12:00am Start: 03-30-2024 levothyroxine 50 mcg (0.05 mg) oral tablet Dose : 50 mcg = 1 tab(s), Oral, qDay, # 30 tab(s), 11 Refill(s), Pharmacy: [place] [id number], Chronic low back pain Hypothyroidism, 154, cm, 03/30/24 8:57:00 EDT, Height, kg, 03/30/24 8:57:00 EDT, Dosing Weight Start Date: 03/30/24 Status: Ordered Start: 12-29-2018 End: 10-21-2021 take 1 tablet by mouth once daily Levothyroxine 50 mcg tablet Discontinued 50 ug PO DAILY December 29, 2018 12:00am October 21, 2021 3:07pm losartan potassium 25 mg oral tablet (20 sources) Angiotensin 2 Receptor Tawana Start: 04-12-2024 take 1 tablet by mouth once daily Losartan 25 mg tablet Active 25 mg PO DAILY April 12, 2024 10:34am Start: 08-14-2023 End: 04-12-2024 Losartan 100 mg Tablet Disco ntinued 25 mg PO DAILY August 14, 2023 1:00am April 12, 2024 10:35am Start: 08-14-2023 take 25 mg by mouth once daily Losartan Active 25 MG PO DAILY August 14, 2023 1:00am Start: 05-17-2023 End: 08-14-2023 take 1 tablet by mouth once daily Losartan 100 mg Tablet Discontinued 100 mg PO DAILY May 17, 2023 12:00am August 14, 2023 3:58pm Start: 12-04-2021 End: 05-17-2023 take 1 tablet by mouth once daily Losartan 25 mg tablet Discontinued 25 mg PO DAILY April 20, 2023 4:47pm May 17, 2023 2:47pm Start: 05-03-2017 take 1 tablet by adrián th once daily losartan (COZAAR) 100 mg tablet Take 100 mg by mouth once daily. 4 05/03/2017 Active losartan potpavani um (LOSARTAN ORAL) Take by mouth. 0 Active Comment on above: Take 100 mg by mouth once daily. Take by mouth. 24 hr metoprolol succinate 25 mg extended release oral tablet (20 sources) beta-Adrenergic Tawana Start: 02-22-2024 End: 04-01-2024 take 2 tablets by mouth once daily Metoprolol Succinate 25 mg tablet extended release 24 hr Active 12.5 mg PO DAILY April 01, 2024 12:00am Start: 01-05-2024 End: 02-22-2024 take 1 tablet by mouth once daily Metoprolol Succinate 25 mg tablet extended release 24 hr Discontinued 25 mg PO DAILY January 05, 2024 12:00am February 22, 2024 10:15am Start: 11-15-2023 Metoprolol Suc cinate ER 25 mg oral TABLET extended release Dose : 12.5 mg = 0.5 tab(s), Oral, qDay, # 90 tab(s), 0 Refill(s), other reason (Rx) Start Date: 11/15/23 Status: Ordered Start: 10-24-2023 End: 01-05-2024 take 1 tablet by mouth once daily Metoprolol Succinate 50 mg tablet extended release 24 hr Discontinued 50 mg PO DAILY October 24, 2023 12:23pm January 05, 2024 11:41am Start: 08-14-2023 End: 10-24-2023 take 2 tablets by mouth once daily Metoprolol Succinate 50 mg Tablet Extended Release 24 Hr Discontinued 25 mg PO DAILY August 14, 2023 1:00am October 24, 2023 12:07pm Start: 06-16-2023 Metoprolol Suc cinate ER 50 mg oral TABLET extended release Dose : 50 mg = 1 tab(s), Oral, qDay, # 90 tab(s), 0 Refill(s) Start Date: 06/16/23 Status: Ordered Start: 05-13-2023 End: 06-07-2023 take 2 tablets by mouth once daily Metoprolol Succinate 50 mg tablet extended release 24 hr Discontinued 25 mg PO DAILY May 13, 2023 12:00am June 07, 2023 8:58pm Start: 04-21-2023 End: 08-14-2023 take 1 tablet by mouth once daily Metoprolol Succinate 50 mg Tablet Extended Release 24 Hr Discontinued 50 mg PO DAILY June 07, 2023 12:00am August 14, 2023 9:57pm Start: 04-21-2023 End: 10-24-2023 take 25 mg by mouth once daily Metoprolol Succinate Di scontinued 25 MG PO DAILY August 14, 2023 1:00am October 24, 2023 12:07pm Start: 04-20-2023 End: 04-21-2023 Metoprolol Succinate 25 mg t ablet extended release 24 hr Discontinued 50 mg PO DAILY April 20, 2023 2:46pm April 21, 2023 2:33pm Start: 10-29-2022 End: 04-20-2023 take 1 tablet by mouth once daily Metoprolol Succinate 25 mg tablet extended release 24 hr Discontinued 0 .ROUTE .COMPLEX October 29, 2022 10:31am April 20, 2023 2:47pm TAKE 1 TABLET BY MOUTH DAILY Start: 10-21-2021 End: 04-20-2023 take 1 tablet by mouth once daily Metoprolol Succinate 25 mg tablet extended release 24 hr Discontinued 25 mg PO daily October 21, 2021 3:34pm October 29, 2022 10:31am Start: 10-21-2021 End: 04-21-2023 take 50 mg by mouth once daily Metoprolol Succinate Di scontinued 50 MG PO DAILY April 20, 2023 2:46pm April 21, 2023 2:33pm Start: 10-21-2021 End: 10-21-2021 take 2 tablets by mouth once daily Metoprolol Succinate (Toprol Xl) 50 mg tablet extended release 24 hr Discontinued 25 mg PO daily October 21, 2021 3:33pm October 21, 2021 3:35pm Start: 07-29-2021 Metoprolol Suc cinate ER 50 mg oral TABLET extended release Dose : 50 mg = 1 tab(s), Oral, qDay, # 90 tab(s), 3 Refill(s), Pharmacy: [facility]/pharmacy #[id number], Hypertension, 157, cm, 07/22/21 15:01:00 EDT, Height, kg, 07/22/21 15:01:00 EDT, Dosing Weight Start Date: 07/29/21 Status: Ordered Start: 12-26-2017 metoprolol suc cinate ER (TOPROL XL) 50 mg 24 hr tablet 0 12/26/2017 Active Start: 11-03-2017 End: 10-21-2021 take 1 tablet by mouth once daily Metoprolol Succinate (Toprol Xl) 50 mg tablet extended release 24 hr Discontinued 50 mg PO daily June 08, 2018 3:12pm October 21, 2021 3:34pm Start: 10-11-2017 metoprolol suc cinate ER (TOPROL XL) 25 mg 24 hr tablet 0 10/11/2017 Active Start: 09-06-2017 End: 11-03-2017 Metoprolol Tartrate 25 MG ta blet Discontinued 12.5 mg PO TWICE A DAY September 06, 2017 7:53pm November 03, 2017 5:03pm Start: 05-15-2017 End: 11-03-2017 Metoprolol Tartrate 25 MG ta blet Discontinued 25 mg PO 0800,1800 July 27, 2017 12:00am September 03, 2017 3:13pm Start: 01-08-2015 End: 07-27-2017 take 2 tablets by mouth twice daily at mealtime Metoprolol Tartrate 25 MG tablet Discontinued 50 mg PO TWICE DAILY WITH MEALS June 29, 2017 8:46pm July 27, 2017 9:27pm Start: 01-08-2015 End: 11-03-2017 take 1 tablet by mouth twice daily Metoprolol Tartrate 25 MG tablet Discontinued 25 mg PO TWICE A DAY September 03, 2017 3:12pm September 06, 2017 12:33pm Start: 01-08-2015 End: 07-27-2017 take 50 mg by mouth twice daily at mealtime Metoprolol Tartrate Discontinued 50 MG PO TWICE DAILY WITH MEALS June 29, 2017 8:46pm July 27, 2017 9:27pm Start: 01-08-2015 End: 11-03-2017 take 12.5 mg by mouth twice daily Metoprolol Tartrate Discontinued 12.5 MG PO TWICE A DAY September 06, 2017 1:00am September 06, 2017 7:53pm Comment on above: Take 25 mg by mouth daily at bedtime. naloxone hydrochloride 40 mg/ml nasal spray (9 sources) Opioid Antagonist Start: 12-09-2021 Narcan 4 mg/0.1 mL nasal spray 1 spray(s), Intranasal, AsDirected, PRN see pharmacy notes, may repeat every 2 to 3 minutes until patient responds, # 2 EA, 0 Refill(s), Pharmacy: [facility] - [id number], 157, cm, 01/07/23 11:37:00 EDT, Height Start Date: 02/04/23 Status: Ordered nitroglycerin 0.4 mg sublingual tablet (20 sources) Nitrate Vasodilator Start: 10-22-2021 nitroglycerin 0.4 mg sublingual tablet 0 Refill(s) Start Date: 10/22/21 Status: Ordered Start: 10-21-2021 End: 04-01-2024 Nitroglycerin (Nitrostat) 0. 4 mg tablet, sublingual Discontinued 0.4 mg SL every 5 to 15 minutes as needed for chest pain October 21, 2021 1:00am April 01, 2024 4:48pm do not exceed 3 doses per episode Start: 10-21-2021 Nitroglycerin (Nitrostat) 0.4 mg tablet, sublingual Active 0.4 MG SL every 5 to 15 minutes October 21, 2021 1:00am do not exceed 3 doses per episode Start: 10-21-2021 nitroglycerin 0.4 mg sublingual tablet (1 source) Start: 10-22-2021 nitroglycerin 0.4 mg sublingual tablet 0 Refill(s) Start Date: 10/22/21 Status: Ordered Pen needles 5 mm (2 sources) Start: 11-04-2020 Pen needles 5 mm See Instructions, qs for 1 month supply, BD UF mini pen needles 2itt21T, DX: E11.9, # 1 EA, 11 Refill(s), Pharmacy: [facility]/pharmacy #[id number], 157.5, cm, 11/04/20 13:17:00 EST, Height, 90.7, kg, 11/04/20 13:17:00 EST, Dosing Weight Start Date: 11/04/20 Status: Ordered rOPINIRole 1 mg oral tablet (20 sources) Nonergot Dopamine Agonist Start: 07-17-2024 take 1 tablet by mouth once daily Ropinirole 1 mg tablet Active 1 mg PO DAILY July 17, 2024 12:00am Start: 05-19-2022 take 2 tablets by mo [facility] at bedtime Ropinirole 1 mg tablet Active 2 mg PO AT BEDTIME May 19, 2022 12:00am Start: 05-19-2022 take 2 mg by mouth twice daily Ropinirole Active 2 MG PO TWICE A DAY May 19, 2022 12:00am Start: 01-26-2022 take 2 tablets by mo [facility] in the morning rOPINIRole 1 mg oral tablet See Instructions, Take 2 tabs in the morning and 2 tabs in the evening., # 120 tab(s), 3 Refill(s), Pharmacy: [facility]/pharmacy #[id number], 157, cm, 01/22/22 15:31:00 EDT, Height, kg, 01/22/22 15:31:00 EDT, Dosing Weight Start Date: 01/26/22 Status: Ordered Start: 01-20-2022 End: 05-19-2022 take 2 tablets by mouth three times daily Ropinirole 0.5 mg tablet Discontinued 1 mg PO THREE TIMES A DAY January 20, 2022 1:34pm May 19, 2022 10:41am Start: 03-25-2021 take 1 tablet by adrián th three times daily rOPINIRole (REQUIP) 1 mg tablet Take 1 mg by mouth three times daily. 0 04/25/2021 Active Start: 12-29-2018 End: 01-20-2022 take 1 tablet by mouth three times daily Ropinirole 0.5 mg tablet Discontinued 0.5 mg PO THREE TIMES A DAY December 29, 2018 12:00am January 20, 2022 1:36pm Start: 12-29-2018 End: 05-19-2022 take 1 mg by mouth three times daily Ropinirole Discontinued 1 MG PO THREE TIMES A DAY January 20, 2022 1:34pm May 19, 2022 10:41am Comment on above: Take 1 mg by mouth t hree times daily. traZODone hydrochloride 150 mg oral tablet (20 sources) Serotonin Reuptake Inhibitor Start: End: take 1 tablet by mouth at bedtime Trazodone 150 mg tablet Active 150 mg PO AT BEDTIME October 24, 2023 12:19pm Start: 09-13-2023 traZODone 150 mg oral tablet Dose : 150 mg = 1 tab(s), Oral, qHS, # 90 tab(s), 0 Refill(s), Pharmacy: [facility] [id number], 154, cm, 08/31/23 11:39:00 EST, Height, kg, 08/31/23 11:39:00 EST, Dosing Weight Start Date: 09/13/23 Status: Ordered Start: 05-17-2023 traZODone 150 mg oral tablet Dose : 150 mg = 1 tab(s), Oral, qHS, # 90 tab(s), 0 Refill(s), Pharmacy: [place] [id number], 155, cm, 04/08/23 11:20:00 EDT, Height, kg, 04/08/23 11:20:00 EDT, Dosing Weight Start Date: 05/17/23 Status: Ordered Start: 02-18-2023 traZODone 150 mg oral tablet Dose : 150 mg = 1 tab(s), Oral, qHS, # 90 tab(s), 0 Refill(s), Pharmacy: [place] [id number], 155.5, cm, 02/11/23 10:54:00 EDT, Height, kg, 02/11/23 10:54:00 EDT, Dosing Weight Start Date: 02/18/23 Status: Ordered Start: 11-30-2022 traZODone 150 mg oral tablet Dose : 150 mg = 1 tab(s), Oral, qHS, # 90 tab(s), 0 Refill(s), Pharmacy: [facility] [id number], 157, cm, 11/19/22 15:09:00 EST, Height, kg, 11/19/22 15:13:00 EST, Dosing Weight Start Date: 11/30/22 Status: Ordered Start: 05-19-2022 End: 10-24-2023 take 2 tablets by mouth at bedtime Trazodone 150 mg tablet Discontinued 300 mg PO AT BEDTIME May 19, 2022 12:00am October 24, 2023 12:20pm Start: 05-19-2022 End: 10-24-2023 take 300 mg by mouth at bedtime Trazodone Discontinued 300 MG PO AT BEDTIME May 19, 2022 12:00am October 24, 2023 12:20pm Start: 05-19-2022 Start: 04-21-2022 traZODone 150 mg oral tablet Dose : 150 mg = 1 tab(s), Oral, qHS, # 90 tab(s), 1 Refill(s), Pharmacy: [facility]/pharmacy #[id number], 157, cm, 04/07/22 10:54:00 EDT, Height Start Date: 04/21/22 Status: Ordered Start: 01-20-2022 End: 05-19-2022 take 3 tablets by mouth at bedtime Trazodone 50 mg tablet Discontinued 150 mg PO AT BEDTIME January 20, 2022 1:32pm May 19, 2022 10:35am Start: 01-20-2022 End: 05-19-2022 take 150 mg by mouth at bedtime Trazodone Discontinued 150 MG PO AT BEDTIME January 20, 2022 1:32pm May 19, 2022 10:35am Start: 12-04-2021 End: 11-29-2022 traZODone 300 mg oral tablet Dose : 300 mg = 1 tab(s), Oral, qHS, # 90 tab(s), 3 Refill(s), Pharmacy: [facility]/pharmacy #[id number], 157, cm, 12/04/21 11:32:00 EST, Height, kg, 12/04/21 11:32:00 EST, Dosing Weight Start Date: 12/04/21 Stop Date: 11/29/22 Status: Ordered Start: 10-22-2021 traZODone 150 mg oral tablet Dose : 150 mg = 1 tab(s), Oral, BID, # 60 tab(s), 11 Refill(s), Pharmacy: [facility]/pharmacy #[id number], 157, cm, 10/22/21 10:32:00 EST, Height, kg, 10/22/21 10:32:00 EST, Dosing Weight Start Date: 10/22/21 Status: Ordered Start: 05-22-2020 End: 01-20-2022 take 2 tablets by mouth at bedtime Trazodone 50 mg tablet Discontinued 100 mg PO AT BEDTIME May 22, 2020 2:49pm January 20, 2022 1:36pm Start: 05-22-2020 End: 01-20-2022 take 100 mg by mouth at bedtime Trazodone Discontinued 100 MG PO AT BEDTIME May 22, 2020 2:49pm January 20, 2022 1:36pm Start: 12-29-2018 End: 05-19-2022 take 1 tablet by mouth at bedtime Trazodone 50 mg tablet Discontinued 50 mg PO AT BEDTIME November 23, 2019 4:40pm May 22, 2020 2:50pm Start: 05-03-2017 End: 08-20-2022 take 1 tablet by mouth once daily at bedtime traZODone (DESYREL) 100 mg tablet Take 100 mg by mouth daily at bedtime. 4 05/03/2017 Active Comment on above: Take 100 mg by mouth daily at bedtime. Tresiba FlexTouch 200 units/mL 3 mL subcutaneous solution (2 sources) Start: 04-08-20 End: 04-03-20 inject 1 dose by subcutaneous injection once daily Tresiba FlexTouch 200 units/mL 3 mL subcutaneous solution Dose : 30 unit(s) =, Subcutaneous, qDay, rotate injection sites, # 3 EA, 11 Refill(s), [id number], 157.5, cm, 04/08/21 14:24:00 EDT, Height, kg, 04/08/21 14:24:00 EDT, Dosing Weight Start Date: 04/08/21 Stop Date: 04/03/22 Status: Ordered Vitamin D3 125 mcg (5000 intl units) oral capsule (5 sources) Start: 09-13-20 End: 09-07-20 Vitamin D3 125 mcg (5000 intl units) oral capsule Dose : 5,000 International_Unit = 1 cap(s), Oral, qDay, # 90 cap(s), 3 Refill(s), Pharmacy: [place] [id number], Afib Anticoagulant long-term use, 154, cm, 08/31/23 11:39:00 EST, Height, kg, 08/31/23 11:39:00 EST, Dosing Weight Start Date: 09/13/23 Stop Date: 09/07/24 Status: Ordered Start: 09-07-2022 End: 09-02-2023 Vitamin D3 125 mcg (5000 int l units) oral capsule Dose : 5,000 International_Unit = 1 cap(s), Oral, qDay, # 90 cap(s), 3 Refill(s), Pharmacy: [place] [id number], Afib Anticoagulant long-term use, 157, cm, 08/25/22 16:05:00 EST, Height, kg, 08/25/22 16:05:00 EST, Dosing Weight Start Date: 09/07/22 Stop Date: 09/02/23 Status: Ordered (16 sources) Start: 08-14-2023 Start: 04-20-2023 End: 05-17-2023 Start: 05-19-2022 End: 05-17-2023 Start: 01-20-2022 Start: 01-20-2022 End: 01-20-2022 Start: 09-14-2017 End: 11-03-2017 Start: 09-14-2017 End: 09-14-2017 Completed/Discontinued Medications Medication Drug Class(es) Dates Sig (Normalized) Sig (Original) acetaminophen 325 mg / HYDROcodone bitartrate 5 mg oral tablet (20 sources) Opioid Agonist Start: 11-20-2023 End: 04-19-2024 Hydrocodone-Acetami nophen 5-325 mg tablet Discontinued 1 {tbl} PO 4 TIMES DAILY NEEDED as needed for pain November 20, 2023 1:00am April 19, 2024 5:30pm Start: 11-20-2023 Hydrocodone-Ac etaminophen Active TABLET November 20, 2023 1:00am Start: 09-21-2023 End: 09-28-2023 take 1 tablet by mouth three times daily as needed for pain [place] 325- 5 mg oral tablet Dose = 1 tab(s), Oral, TID, PRN for pain, # 21 tab(s), 0 Refill(s), Pharmacy: [place] [id number], Arthritis, 154, cm, 08/31/23 11:39:00 EST, Height, 81, kg, 08/31/23 11:39:00 EST, Dosing Weight Start Date: 09/21/23 Stop Date: 09/28/23 Status: Ordered Start: 2023 End: 09-08-2023 take 1 tablet by mouth three times daily as needed for pain [place] 325- 5 mg oral tablet Dose = 1 tab(s), Oral, TID, PRN for pain, # 90 tab(s), 0 Refill(s), Pharmacy: [place] [id number], Arthritis, 155, cm, 08/09/23 10:54:00 EST, Height, 83.4, kg, 08/09/23 10:37:00 EST, Dosing Weight Start Date: 08/09/23 Stop Date: 09/08/23 Status: Ordered Start: 04-13-2023 End: 05-13-2023 take 1 tablet by mouth three times daily as needed for pain [place] 325- 5 mg oral tablet Dose = 1 tab(s), Oral, TID, PRN for pain, # 90 tab(s), 0 Refill(s), Pharmacy: [place] [id number], Chronic low back pain, 155.5, cm, 02/11/23 10:54:00 EDT, Height, 90.4 Start Date: 04/13/23 Stop Date: 05/13/23 Status: Ordered Start: 02-11-2023 End: 04-12-2023 take 1 tablet by mouth three times daily as needed for pain [place] 325- 5 mg oral tablet Dose = 1 tab(s), Oral, TID, PRN for pain, # 90 tab(s), 0 Refill(s), Pharmacy: [place] [id number], Arthritis, 155.5, cm, 02/11/23 10:54:00 EDT, Height, 90.4 Start Date: 03/13/23 Stop Date: 04/12/23 Status: Ordered Start: 12-17-2022 End: 01-16-2023 take 1 tablet by mouth twice daily as needed for pain [place] 325- 5 mg oral tablet Dose = 1 tab(s), Oral, BID, PRN for pain, # 60 tab(s), 0 Refill(s), Pharmacy: [place] [id number], Arthritis, 157, cm, 12/17/22 8:53:00 EDT, Height, 89.1, kg, 12/17/22 8:53:00 EDT, Dosing Weight Start Date: 12/17/22 Stop Date: 01/16/23 Status: Ordered Start: 05-19-2022 End: 11-10-2023 take 1-10 tablets by mouth every twelve hours as needed for pain Hydrocodone-Acetaminophen ([place]) 5-325 mg tablet Discontinued 1 {tbl} PO Q12H as needed for Pain 1-10 Or Fever May 19, 2022 10:37am November 10, 2023 3:41pm Start: 04-07-2022 End: 05-07-2022 take 1 tablet by mouth twice daily as needed for pain [place] 325- 5 mg oral tablet Dose = 1 tab(s), Oral, BID, PRN for pain, # 60 tab(s), 0 Refill(s), Pharmacy: [facility]/pharmacy #[id number], Arthritis, 157, cm, 04/07/22 10:54:00 EDT, Height, 86.3, kg, 04/07/22 10:54:00 EDT, Dosing Weight Start Date: 04/07/22 Stop Date: 05/07/22 Status: Ordered Start: 02-09-2022 End: 04-04-2022 take 1 tablet by mouth twice daily as needed for pain [place] 325- 5 mg oral tablet Dose = 1 tab(s), Oral, BID, PRN for pain, # 60 tab(s), 0 Refill(s), [id number], Arthritis, 157, cm, 03/05/22 14:26:00 EDT, Height, 85, kg, 03/05/22 14:26:00 EDT, Dosing Weight Start Date: 03/05/22 Stop Date: 04/04/22 Status: Ordered Start: 11-03-2021 End: 12-03-2021 take 1 tablet by mouth twice daily as needed for pain [place] 325- 5 mg oral tablet Dose = 1 tab(s), Oral, BID, PRN for pain, short term in absence of PCP, # 60 tab(s), 0 Refill(s), [id number], Arthritis, 157, cm, 10/22/21 10:32:00 EST, Height, 85, kg, 10/22/21 10:32:00 EST, Dosing Weight Start Date: 11/03/21 Stop Date: 12/03/21 Status: Ordered Start: 09-03-2021 End: 10-03-2021 take 1 tablet by mouth twice daily as needed for pain [place] 325- 5 mg oral tablet Dose = 1 tab(s), Oral, BID, PRN for pain, short term in absence of PCP, # 60 tab(s), 0 Refill(s), Pharmacy: [facility]/pharmacy #[id number], Arthritis, 157.6, cm, 09/03/21 11:20:00 EST, Height, 85.7, kg, 09/03/21 11:20:00 EST, Dosing Weight Start Date: 09/03/21 Stop Date: 10/03/21 Status: Ordered Start: 12-29-2020 End: 05-19-2022 take 1-10 tablets by mouth at bedtime as needed for pain Hydrocodone-Acetaminophen ([place]) 5-325 mg tablet Discontinued 1 {tbl} PO AT BEDTIME as needed for Pain 1-10 Or Fever December 29, 2020 12:00am May 19, 2022 10:41am Start: 12-29-2020 End: 05-19-2022 take 1 tablet by adrián th every six hours as needed HYDROcodone-acetaminophen (NORCO) 5-325 mg per tablet Take 1 tablet by mouth every 6 hours as needed. 0 Active Comment on above: Take 1 tablet by adrián th every 6 hours as needed. acetaminophen 325 mg / oxyCODONE hydrochloride 5 mg oral tablet (20 sources) Opioid Agonist Start: 05-12-2017 oxyCODONE-acetaminop hen (PERCOCET) 5-325 mg tablet Start: 01-08-2015 End: 01-30-2015 Oxycodone-Acetaminophen 1 TA BLET tablet Discontinued 1 {tbl} PO EVERY 4 HOURS NEEDED as needed for Pain January 08, 2015 12:00am January 30, 2015 1:00pm Start: 01-08-2015 End: 01-30-2015 take 1 tablet by mouth every four hours as needed Oxycodone-Acetaminophen Discontinued 1 TABLET PO EVERY 4 HOURS NEEDED January 08, 2015 12:00am January 30, 2015 1:00pm Start: 01-08-2015 End: 01-30-2015 200 actuat albuterol 0.09 mg/actuat dry powder inhaler (15 sources) beta2-Adrenergic Agonist Start: 11-06-2018 End: 11-23-2019 take 90 ug by inhalation every six hours as needed Albuterol Sulfate (Proair Respiclick) 90 mcg/actuation aerosol powdr breath activated Discontinued 2 NMA INHALATION EVERY 6 HOURS as needed November 06, 2018 1:00am November 23, 2019 4:36pm Start: 11-06-2018 End: 11-23-2019 take 1 puff(s) by inhalation every six hours Albuterol Sulfate (Proair Respiclick) 90 mcg/actuation aerosol powdr breath activated Discontinued 2 PUFF INHALATION EVERY 6 HOURS November 06, 2018 1:00am November 23, 2019 4:36pm albuterol 0.833 mg/ml / ipratropium bromide 0.167 mg/ml inhalation solution (15 sources) Anticholinergic, beta2-Adrenergic Agonist Start: 01-08-2015 End: 01-30-2015 take 1 mL by inhalation every two hours as needed for dyspnea Ipratropium-Albuterol 3 ML Ampul.Neb Discontinued 3 mL INHALATION EVERY 2 HOURS NEEDED as needed for Dyspnea/Wheezing/Sob January 08, 2015 12:00am January 30, 2015 12:57pm Start: 01-08-2015 End: 01-30-2015 take 1 mL by inhalation every two hours as needed Ipratropium-Albuterol Discontinued 3 ML INHALATION EVERY 2 HOURS NEEDED January 08, 2015 12:00am January 30, 2015 12:57pm Start: 01-08-2015 End: 01-30-2015 ALPRAZolam 0.5 mg oral tablet (20 sources) Benzodiazepine Start: 10-22-2024 End: 01-18-2025 take 2 tablets by mouth at bedtime Alprazolam 0.5 mg tablet Discontinued 0.5 mg PO As Directed 60 November 20, 2024 11:44am January 18, 2025 12:15pm 2 tabs p.o. at bedtime Start: 10-16-2024 End: 01-15-2025 take 1 tablet by mouth twice daily Alprazolam 0.5 mg tablet Discontinued 0.5 mg PO TWICE A DAY 60 December 11, 2024 12:14pm January 15, 2025 11:16am Start: 02-28-2024 End: 05-28-2024 ALPRAZolam 0.5 mg oral table t Dose : 0.5 mg = 1 tab(s), Oral, QID, # 120 tab(s), 2 Refill(s), Pharmacy: [place] [id number], RADHA (generalized anxiety disorder), 154, cm, 02/28/24 13:21:00 EDT, Height, 82.9, kg, 02/28/24 13:21:00 EDT, Dosing Weight Start Date: 02/28/24 Stop Date: 05/28/24 Status: Ordered Start: 03-29-2018 End: 11-23-2019 take 1 tablet by mouth once daily Alprazolam 0.5 mg tablet Discontinued 0.5 mg PO daily March 29, 2018 12:00am November 23, 2019 4:41pm Start: 03-29-2018 End: 10-16-2024 take 1 tablet by mouth four times daily Alprazolam 0.5 mg tablet Discontinued 0.5 mg PO 4 TIMES DAILY November 23, 2019 4:37pm October 16, 2024 12:57pm Start: 03-29-2018 End: 04-04-2022 ALPRAZolam 0.5 mg oral table t Dose : 0.5 mg = 1 tab(s), Oral, QID, # 120 tab(s), 0 Refill(s), Pharmacy: [facility]/pharmacy #[id number], Anxiety, 157, cm, 03/05/22 14:26:00 EDT, Height, 85, kg, 03/05/22 14:26:00 EDT, Dosing Weight Start Date: 03/05/22 Stop Date: 04/04/22 Status: Ordered Comment on above: Take 0.5 mg by mouth three times daily. amiodarone hydrochloride 200 mg oral tablet (20 sources) Antiarrhythmic Start: 09-03-2017 End: 09-06-2017 Amiodarone 200 MG tablet Discontinued 100 mg PO TWICE A DAY September 03, 2017 3:12pm September 06, 2017 12:33pm Start: 07-27-2017 End: 09-03-2017 Amiodarone 200 MG tablet Discontinued 200 mg PO 0800,1800 July 27, 2017 12:00am September 03, 2017 3:13pm Start: 07-27-2017 End: 09-06-2017 take 100 mg by mouth twice daily Amiodarone Discontinu ed 100 MG PO TWICE A DAY September 03, 2017 3:12pm September 06, 2017 12:33pm Start: 06-08-2017 End: 07-27-2017 take 1 tablet by mouth twice daily at mealtime Amiodarone ([place]) 400 MG tablet Discontinued 400 mg PO TWICE DAILY WITH MEALS 60 June 29, 2017 8:46pm July 27, 2017 9:26pm amLODIPine 5 mg oral tablet (20 sources) Dihydropyridine Calcium Channel Tawana Start: 05-17-2023 End: 08-14-2023 take 1 tablet by mouth once daily Amlodipine 5 mg Tablet Discontinued 5 mg PO DAILY 0 May 17, 2023 12:00am August 14, 2023 3:53pm Start: 09-06-2017 End: 11-03-2017 take 1 tablet by mouth once daily Amlodipine 10 MG tablet Discontinued 10 mg PO DAILY September 06, 2017 7:53pm November 03, 2017 5:06pm amoxicillin 875 mg / clavulanate 125 mg oral tablet (5 sources) Penicillin-class Antibacterial Start: 11-23-2017 amoxicillin-clavulanic acid (AUGMENTIN) 875-125 mg per tablet 0 11/23/2017 Active betamethasone 0.5 mg/ml / clotrimazole 10 mg/ml topical cream (5 sources) Azole Antifungal, Corticosteroid Start: 03-11-2017 clotrimazole-betamethaso ne (LOTRISONE) cream Apply to affected area twice daily. APPLY TO AFFECTED AREA 2 03/11/2017 Active Comment on above: Apply to affected area twice daily. APPL Y TO AFFECTED AREA bisacodyl 5 mg delayed release oral tablet (15 sources) Stimulant Laxative Start: 09-05-2017 End: 11-03-2017 take 2 tablets by mouth once daily as needed for constipation Bisacodyl 5 MG tablet Discontinued 10 mg PO DAILY as needed for Constipation September 05, 2017 1:00am November 03, 2017 5:06pm Start: 09-05-2017 End: 11-03-2017 take 10 mg by mouth once daily Bisacodyl Discontinued 10 MG PO DAILY September 05, 2017 1:00am November 03, 2017 5:06pm onabotulinumtoxina 100 unt injection (2 sources) Acetylcholine Release Inhibitor Start: 04-06-2022 End: 04-06-2022 onabotulinum toxin type A 200 Units injection (BOTOX) Start: 09-02-2021 End: 09-02-2021 onabotulinum toxin type A 20 0 Units injection (BOTOX) bumetanide 0.5 mg oral tablet (20 sources) Loop Diuretic Start: 06-08-2017 End: 07-27-2017 take 1 tablet by mouth twice daily Bumetanide 0.5 MG tablet Discontinued 0.5 mg PO TWICE A DAY 60 June 29, 2017 8:46pm July 27, 2017 9:26pm canagliflozin 300 mg oral tablet (5 sources) Sodium-Glucose Cotransporter 2 Inhibitor Start: 05-03-2017 take 1 tablet by mouth once daily INVOKANA 300 mg tablet Take 300 mg by mouth once daily. 4 05/03/2017 Active Comment on above: Take 300 mg by mouth once daily. ciprofloxacin 500 mg oral tablet (14 sources) Quinolone Antimicrobial Start: 2023 End: 08-19-2023 take 1 tablet by mouth every twelve hours Ciprofloxacin Hcl 500 mg tablet Discontinued 500 mg PO Q12H August 14, 2023 1:00am August 14, 2023 9:55pm X10D FILLED 08/09 citalopram 40 mg oral tablet (5 sources) Serotonin Reuptake Inhibitor take 1 tablet by mouth once daily citalopram (CELEXA) 40 mg tablet Take 40 mg by mouth once daily. 0 Active Comment on above: Take 40 mg by mouth once daily. clonazePAM 0.5 mg oral tablet (20 sources) Benzodiazepine Start: 09-11-2017 End: 03-29-2018 take 2 tablets by mouth four times daily as needed for anxiety Clonazepam 0.5 MG tablet Discontinued 1 mg PO 4 TIMES DAILY as needed for anxiety November 03, 2017 5:06pm March 29, 2018 2:04pm Taper this medication to DC. Start: 09-05-2017 End: 09-06-2017 take 1 tablet by mouth three times daily Clonazepam (Klonopin) 0.5 MG tablet Discontinued 0.5 mg PO THREE TIMES A DAY September 05, 2017 1:00am September 06, 2017 12:33pm Start: 09-05-2017 End: 03-29-2018 take 1 tablet by mouth every twelve hours as needed for anxiety Clonazepam 0.5 MG tablet Discontinued 0.5 mg PO EVERY 12 HOURS NEEDED as needed for ANXIETY 6 September 06, 2017 1:00am September 11, 2017 5:33am Taper this medication to DC. Start: 09-05-2017 End: 03-29-2018 take 1 mg by mouth four times daily Clonazepam Discontinued 1 MG PO 4 TIMES DAILY November 03, 2017 5:06pm March 29, 2018 2:04pm Taper this medication to DC. Start: 01-08-2015 End: 09-03-2017 take 1 tablet by mouth three times daily Clonazepam 1 MG tablet Discontinued 1 mg PO THREE TIMES A DAY 90 July 27, 2017 9:27pm September 03, 2017 3:13pm clopidogrel 75 mg oral tablet (20 sources) [id number] Platelet Inhibitor Start: 01-09-2021 End: 01-22-2021 take 1 tablet by mouth once daily Clopidogrel 75 mg tablet Discontinued 75 mg PO DAILY January 09, 2021 2:38pm January 13, 2021 11:23am For Cardiac Cath dicyclomine hydrochloride 10 mg oral capsule (6 sources) Anticholinergic Start: 04-26-2024 End: 07-17-2024 take 1 capsule by mouth twice daily Dicyclomine 10 mg capsule Discontinued 10 mg PO TWICE A DAY April 26, 2024 12:00am July 17, 2024 12:31pm digoxin 0.125 mg oral tablet (20 sources) Cardiac Glycoside Start: 06-08-2017 End: 09-03-2017 take 1 tablet by mouth once daily Digoxin 125 MCG tablet Discontinued 125 ug PO DAILY June 29, 2017 8:46pm September 03, 2017 3:13pm docusate sodium 50 mg / sennosides, senior care 8.6 mg oral tablet (15 sources) Start: 09-05-2017 End: 11-03-2017 Sennosides-Docusa te Sodium 1 EACH tablet Discontinued 1 NMA PO TWICE A DAY September 05, 2017 1:00am November 03, 2017 5:07pm Start: 09-05-2017 End: 11-03-2017 Sennosides-Docusate Sodium D iscontinued 1 EACH PO TWICE A DAY September 05, 2017 1:00am November 03, 2017 5:07pm Start: 09-05-2017 End: 11-03-2017 24 hr fesoterodine fumarate 4 mg extended release oral tablet (20 sources) Start: 08-14-2023 End: 10-24-2023 take 1 tablet by mouth twice daily Fesoterodine 4 mg tablet extended release 24 hr Discontinued 4 mg PO TWICE A DAY August 14, 2023 1:00am October 24, 2023 12:06pm Start: 04-20-2023 End: 05-17-2023 take 1 tablet by mouth once daily Fesoterodine 4 mg tablet extended release 24 hr Discontinued 4 mg PO DAILY April 20, 2023 12:00am May 17, 2023 2:45pm fluconazole 200 mg oral tablet (15 sources) Azole Antifungal Start: 12-29-2018 End: 11-23-2019 take 1 tablet by mouth once daily Fluconazole 200 mg tablet Discontinued 200 mg PO DAILY December 29, 2018 12:00am November 23, 2019 4:37pm furosemide 20 mg oral tablet (20 sources) Loop Diuretic Start: 04-01-2024 End: 04-01-2024 take 1 tablet by mouth once daily Furosemide 20 mg tablet Discontinued 20 mg PO DAILY April 01, 2024 12:00am April 01, 2024 9:07pm Start: 10-24-2023 End: 02-22-2024 take 1 tablet by mouth once daily Furosemide (Lasix) 40 mg tablet Discontinued 40 mg PO DAILY December 14, 2023 1:10pm February 22, 2024 10:07am Start: 05-12-2023 End: 10-24-2023 take 1 tablet by mouth once daily Furosemide (Lasix) 20 mg tablet Discontinued 20 mg PO DAILY August 14, 2023 1:00am October 24, 2023 12:05pm Start: 04-15-2021 End: 05-19-2022 take 1 tablet by mouth once daily as needed Furosemide (Lasix) 20 mg tablet Discontinued 20 mg PO DAILY as needed January 20, 2022 1:36pm May 19, 2022 10:39am Comment on above: Take 20 mg by mouth once daily. 1 ml guselkumab 100 mg/ml prefilled syringe (20 sources) Interleukin-23 Antagonist Start: 08-14-2023 End: 07-17-2024 Guselkumab (Tremfya) 100 mg/mL syringe Discontinued 100 mg SC .monthly August 14, 2023 1:00am July 17, 2024 12:31pm Start: 05-12-2023 End: 05-17-2023 Guselkumab (Tremfya) 100 mg/ mL auto-injector Discontinued 100 mg SC .a4vkiuu May 12, 2023 12:00am May 17, 2023 2:45pm Start: 02-29-2020 End: 03-28-2020 Tremfya 100 mg/mL subcutaneo us solution Dose : 100 mg =, Subcutaneous, q4wk, # 2 mL, 0 Refill(s) Start Date: 02/29/20 Stop Date: 03/28/20 Status: Ordered handicap placcard (13 sources) Start: 01-20-2022 End: 01-20-2022 handicap placcard Discontinu ed 0 .Route .MEDSUPPLY 1 January 19, 2022 11:00pm January 20, 2022 1:09pm As directed Start: 01-20-2022 End: 01-20-2022 handicap placcard Discontinu ed 0 .Route .MEDSUPPLY 1 January 20, 2022 12:00am January 20, 2022 2:09pm As directed 3 ml insulin aspart, human 100 unt/ml pen injector (20 sources) Insulin Analog Start: 09-14-2017 End: 11-03-2017 Insulin Aspart U-100 Discontinued 10 UNITS SC 3 TIMES DAILY WITH MEALS September 14, 2017 2:33pm November 03, 2017 5:07pm Start: 09-14-2017 End: 11-03-2017 Insulin Aspart U-100 100 UNI TS/ML insulin pen Discontinued 0 U SC BEFORE MEALS AND AT BEDTIME September 14, 2017 2:33pm November 03, 2017 5:06pm Please contact the information source for Protocol details. Start: 09-14-2017 End: 11-03-2017 Insulin Aspart U-100 100 UNI TS/ML insulin pen Discontinued 10 U SC 3 TIMES DAILY WITH MEALS September 14, 2017 2:33pm November 03, 2017 5:07pm Start: 09-11-2017 End: 09-14-2017 Insulin Aspart U-100 (Novolo g Flexpen (Bkc)) 100 UNITS/ML Flexpen Discontinued 13 U SC 3 TIMES DAILY WITH MEALS September 11, 2017 1:00am September 14, 2017 12:18pm Start: 09-11-2017 End: 11-03-2017 Insulin Aspart U-100 Discont inued 0 UNITS SC BEFORE MEALS AND AT BEDTIME September 14, 2017 2:33pm November 03, 2017 5:06pm Start: 06-08-2017 End: 06-29-2017 Insulin Aspart U-100 (Novolo g Flexpen U-100 Insulin) 100 UNITS/ML Flexpen Discontinued 0 U SC BEFORE MEALS AND AT BEDTIME June 08, 2017 3:38pm June 29, 2017 8:41pm Please contact the information source for Protocol details. Start: 01-30-2015 End: 06-08-2017 Insulin Aspart U-100 (Novolo g Flexpen U-100 Insulin) 100 UNITS/ML Flexpen Discontinued 12 U SC 3 TIMES DAILY WITH MEALS 0 January 30, 2015 12:00am June 08, 2017 3:38pm Start: 01-30-2015 End: 06-29-2017 Insulin Degludec (Tresiba Flextouch U-100) 100 unit/mL (3 mL) insulin pen (11 sources) Start: 08-14-2023 End: 04-01-2024 Insulin Degludec (Tresiba Flextouch U-100) 100 unit/mL (3 mL) insulin pen Discontinued 30 U SC DAILY August 14, 2023 1:00am April 01, 2024 4:47pm Start: 08-14-2023 Insulin Deglud ec (Tresiba Flextouch U-100) 100 unit/mL (3 mL) insulin pen Active 30 UNIT SC DAILY August 14, 2023 1:00am Start: 08-14-2023 Insulin Deglud ec (Tresiba Flextouch U-100) 100 unit/mL (3 mL) insulin pen Active 30 UNIT SC DAILY August 14, 2023 12:00am 3 ml insulin degludec 100 unt/ml / liraglutide 3.6 mg/ml pen injector (5 sources) Insulin Analog, GLP-1 Receptor Agonist Start: 12-19-2017 XULTOPHY 100/3.6 100 unit-3.6 mg /mL (3 mL) inpn 0 12/19/2017 Active Insulin Degludec 200 unit/mL (3 mL) insulin pen (6 sources) Start: 05-19-2022 End: 05-17-2023 Insulin Degludec 200 unit/mL (3 mL) insulin pen Discontinued 40 U SC AT BEDTIME May 19, 2022 10:39am May 17, 2023 2:45pm insulin detemir 100 unt/ml injectable solution (20 sources) Insulin Analog Start: 11-03-2017 End: 12-29-2018 Insulin Detemir U-100 (Levemir U-100 Insulin) 100 unit/mL solution Discontinued 18 U SC EVERY EVENING November 03, 2017 1:00am December 29, 2018 2:45pm Start: 11-03-2017 End: 12-29-2018 Start: 09-14-2017 End: 11-03-2017 Insulin Detemir U-100 100 UN ITS/ML insulin pen Discontinued 18 U SC TWICE A DAY September 14, 2017 2:33pm November 03, 2017 5:07pm Start: 09-14-2017 End: 11-03-2017 Insulin Detemir U-100 (Levem ir Flextouch U100 Insulin) 100 UNITS/ML Insuln.Pen Discontinued 18 U SC TWICE A DAY September 14, 2017 1:00am September 14, 2017 2:33pm Start: 09-03-2017 End: 09-14-2017 Insulin Detemir U-100 (Levem ir Flextouch U100 Insulin) 100 UNITS/ML Insuln.Pen Discontinued 20 U SC TWICE A DAY September 03, 2017 3:12pm September 14, 2017 12:18pm Start: 07-27-2017 End: 09-03-2017 Insulin Detemir U-100 (Levem ir Flextouch U100 Insulin) 100 UNITS/ML Insuln.Pen Discontinued 15 U SC TWICE A DAY 1 July 27, 2017 12:00am September 03, 2017 3:13pm Start: 06-08-2017 End: 07-27-2017 Insulin Detemir U-100 (Levem ir Flextouch U100 Insulin) 100 UNITS/ML Insuln.Pen Discontinued 45 U SC AT BEDTIME June 08, 2017 3:38pm July 27, 2017 9:26pm Start: 01-30-2015 End: 06-08-2017 Insulin Detemir U-100 (Levem ir Flextouch U100 Insulin) 100 UNITS/ML Insuln.Pen Discontinued 48 U SC AT BEDTIME 0 January 30, 2015 12:00am June 08, 2017 3:38pm Start: 01-08-2015 End: 01-30-2015 Insulin Detemir U-100 (Levem ir (Bkc)) 100 UNITS/ML Insuln.Pen Discontinued 40 U SC AT BEDTIME January 08, 2015 12:00am January 30, 2015 12:56pm Start: 01-08-2015 End: 11-03-2017 insulin detemir (LEVEMIR) 100 unit/mL injection Inject subcutaneously daily at bedtime. 0 Active Comment on above: Inject subcutaneousl y daily at bedtime. insulin glargine 100 unt/ml injectable solution (5 sources) Insulin Analog insulin glargine (LANTUS) 100 unit/mL injection Inject subcutaneously daily at bedtime. 0 Active Comment on above: Inject subcutaneousl y daily at bedtime. Insulin Glargine-Yfgn (15 sources) Start: 05-17-2023 End: 08-14-2023 Insulin Glargine-Yfgn 100 unit/mL (3 mL) Insulin Pen Discontinued 40 U SC AT BEDTIME May 17, 2023 12:00am August 14, 2023 3:54pm Start: 05-17-2023 End: 08-14-2023 Insulin Glargine-Yfgn Discon tinued 40 UNIT SC AT BEDTIME May 17, 2023 12:00am August 14, 2023 3:54pm Start: 05-17-2023 End: 08-14-2023 Insulin Glargine-Yfgn Discon tinued 40 UNIT SC AT BEDTIME May 16, 2023 11:00pm August 14, 2023 2:54pm Start: 05-17-2023 End: 08-14-2023 Start: 05-17-2023 Insulin Glargi ne-Yfgn Active 40 UNIT SC AT BEDTIME May 17, 2023 12:00am Insulin Lispro (15 sources) Insulin Analog Start: 01-08-2015 End: 01-30-2015 Insulin Lispro (Humalog) 100 UNIT/ML Ml Discontinued 0 U January 08, 2015 12:00am January 30, 2015 12:58pm Start: 01-08-2015 End: 01-30-2015 Insulin Lispro (Humalog) 100 UNIT/ML Ml Discontinued 0 UNIT January 07, 2015 11:00pm January 30, 2015 11:58am Start: 01-08-2015 End: 01-30-2015 Start: 01-08-2015 End: 01-30-2015 Insulin Lispro (Humalog) 100 UNIT/ML Ml Discontinued 0 UNIT January 08, 2015 12:00am January 30, 2015 12:58pm levoFLOXacin 750 mg oral tablet (20 sources) Quinolone Antimicrobial Start: 05-17-2023 End: 06-07-2023 take 1 tablet by mouth once daily Levofloxacin 750 mg tablet Discontinued 750 mg PO DAILY May 17, 2023 12:00am June 07, 2023 8:57pm Start: 09-14-2017 End: 09-14-2017 Levofloxacin 750 MG tablet D iscontinued 750 mg PO Q48@0600 September 14, 2017 1:00am September 14, 2017 2:33pm Start: 09-14-2017 End: 09-14-2017 Lidocaine (5 sources) Antiarrhythmic, Amide Local Anesthetic Start: 04-06-2022 End: 04-06-2022 lidocaine urojet 2 % 11 mL topical gel (XYLOCAINE, GLYDO) Start: 04-06-2022 End: 04-06-2022 lidocaine 20 mg/mL (2 %) 1,0 00 mg injection (XYLOCAINE) Start: 04-06-2022 End: 04-06-2022 lidocaine 10 mg/mL (1 %) 500 mg injection (XYLOCAINE) Start: 09-02-2021 End: 09-02-2021 lidocaine urojet 2 % 11 mL t opical gel (XYLOCAINE, GLYDO) Start: 09-02-2021 End: 09-02-2021 lidocaine 20 mg/mL (2 %) 1,0 00 mg injection (XYLOCAINE) liothyronine sodium 0.005 mg oral tablet (15 sources) l-Triiodothyronine Start: 06-29-2017 End: 07-27-2017 take 1 tablet by mouth once daily Liothyronine 5 MCG tablet Discontinued 25 ug PO DAILY@0600 June 29, 2017 12:00am July 27, 2017 9:27pm Start: 06-29-2017 End: 07-27-2017 take 25 ug by mouth once daily Liothyronine Discontinu ed 25 MCG PO DAILY@0600 June 29, 2017 12:00am July 27, 2017 9:27pm lisinopril 5 mg oral tablet (20 sources) Angiotensin Converting Enzyme Inhibitor Start: 12-11-2017 lisinopril (ZESTRIL, PRINIVIL) 5 mg tablet 0 12/11/2017 Active Start: 11-03-2017 End: 01-20-2022 take 5 mg by mouth once daily Lisinopril 10 MG tablet Discontinued 5 mg PO daily November 03, 2017 5:05pm January 20, 2022 1:36pm Start: 09-11-2017 End: 11-03-2017 take 1 tablet by mouth twice daily Lisinopril 10 MG tablet Discontinued 10 mg PO TWICE A DAY September 11, 2017 1:00am November 03, 2017 5:08pm Start: 09-11-2017 End: 01-20-2022 take 5 mg by mouth once daily Lisinopril Discontinued 5 MG PO daily November 03, 2017 5:05pm January 20, 2022 1:36pm Start: 01-30-2015 End: 09-06-2017 take 1 tablet by mouth once daily Lisinopril 2.5 MG tablet Discontinued 2.5 mg PO DAILY September 03, 2017 3:12pm September 06, 2017 12:33pm Comment on above: Take 2.5 mg by mouth once daily. loperamide hydrochloride 2 mg oral capsule (15 sources) Opioid Agonist Start: 3 End: 4 take 4 tablets by mouth every twenty-four hours as needed Loperamide (Anti-Diarrheal (Loperamide)) 2 mg capsule Discontinued 4 mg PO Q2H as needed for diarrhea May 16, 2023 12:00am April 01, 2024 4:47pm after first loose stool, 1 tablet after each subsequent loose stool but no more than 4 tablets in 24 hours melatonin 3 mg oral tablet (15 sources) Start: 7 End: 7 take 1 tablet by mouth at bedtime Melatonin 3 MG tablet Discontinued 3 mg PO AT BEDTIME July 27, 2017 12:00am September 03, 2017 3:13pm Start: 07-27-2017 End: 09-03-2017 menthol 0.0044 mg/mg / zinc oxide 0.2 mg/mg topical ointment (20 sources) Start: 09-05-2017 End: 11-03-2017 Menthol-Zinc Oxide 1 APPLIC ointment Discontinued 1 NMA TP THREE TIMES A DAY September 05, 2017 1:00am November 03, 2017 5:07pm Start: 09-05-2017 End: 11-03-2017 Start: 07-27-2017 End: 09-03-2017 Menthol-Zinc Oxide (Calmosep gwendolyn) 1 APPLIC Tube Discontinued 1 NMA TOPICAL THREE TIMES A DAY July 27, 2017 12:00am September 03, 2017 3:13pm Please contact the information source for Protocol details. Start: 07-27-2017 End: 09-03-2017 Menthol-Zinc Oxide (Calmosep gwendolyn) 1 APPLIC Tube Discontinued 1 APPLIC TOPICAL THREE TIMES A DAY July 27, 2017 12:00am September 03, 2017 3:13pm Start: 07-27-2017 End: 09-03-2017 montelukast 10 mg oral tablet (20 sources) Leukotriene Receptor Antagonist Start: 12-29-2020 End: 07-17-2024 take 1 tablet by mouth once daily Montelukast 10 mg tablet Discontinued 10 mg PO DAILY December 29, 2020 12:00am July 17, 2024 12:31pm Comment on above: Take 10 mg by mouth once daily. nitrofurantoin, macrocrystals 25 mg / nitrofurantoin, monohydrate 75 mg oral capsule (5 sources) Nitrofuran Antibacterial Start: 12-30-2017 take 1 capsule by mouth twice daily nitrofurantoin monohydrate and macrocrystal (MACROBID) 100 mg capsule Take 1 capsule by mouth twice daily. 14 capsule 0 12/30/2017 Active Comment on above: Take 1 capsule by [facility] twice daily. Nut.Tx.Gluc Intol,Lf,Soy-Fiber (Glucerna 1.2 Justen) 120 ML Liquid (13 sources) Start: 09-14-2017 End: 09-14-2017 take 1 mL by mouth four times daily Nut.Tx.Gluc Intol,Lf,Soy-Fiber (Glucerna 1.2 Justen) 120 ML Liquid Discontinued 120 mL PO 4 TIMES DAILY September 14, 2017 1:00am September 14, 2017 2:33pm Start: 09-14-2017 End: 09-14-2017 take 1 mL by mouth four times daily Nut.Tx.Gluc Intol,Lf,Soy-Fiber (Glucerna 1.2 Justen) 120 ML Liquid Discontinued 120 ML PO 4 TIMES DAILY September 14, 2017 12:00am September 14, 2017 1:33pm Start: 09-14-2017 End: 09-14-2017 take 1 mL by mouth four times daily Nut.Tx.Gluc Intol,Lf,Soy-Fiber (Glucerna 1.2 Justen) 120 ML Liquid Discontinued 120 ML PO 4 TIMES DAILY September 14, 2017 1:00am September 14, 2017 2:33pm Nut.Tx.Gluc.Intol,Lac-Free,S oy (7 sources) Start: 09-14-2017 End: 11-03-2017 take 1 mL by mouth four times daily Nut.Tx.Gluc.Intol,Lac-Free,Soy Discontinued 120 ML PO 4 TIMES DAILY September 14, 2017 1:33pm November 03, 2017 4:07pm Start: 09-14-2017 End: 11-03-2017 take 1 mL by mouth four times daily Nut.Tx.Gluc.Intol,Lac-Free,Soy Discontin ued 120 ML PO 4 TIMES DAILY September 14, 2017 2:33pm November 03, 2017 5:07pm Nut.Tx.Gluc.Intol,Lac-Free,S oy 120 ML liquid (6 sources) Start: 09-14-2017 End: 11-03-2017 take 1 mL by mouth four times daily Nut.Tx.Gluc.Intol,Lac-Free,Soy 120 ML liquid Discontinued 120 mL PO 4 TIMES DAILY September 14, 2017 2:33pm November 03, 2017 5:07pm nystatin 100 unt/mg topical powder (20 sources) Polyen e Antifu ngal Start: 12-29-2018 End: 11-23-2019 Nystatin 100,000 unit/gram powder Discontinued 1 NMA TOPICAL THREE TIMES A DAY December 29, 2018 12:00am November 23, 2019 4:39pm Start: 12-29-2018 End: 11-23-2019 Nystatin Discontinued 1 APPL IC TOPICAL THREE TIMES A DAY December 29, 2018 12:00am November 23, 2019 4:39pm Start: 12-29-2018 End: 11-23-2019 Start: 07-27-2017 End: 09-03-2017 Nystatin (Nyamy) 1 APPLIC b tete Discontinued 1 NMA TOPICAL THREE TIMES A DAY July 27, 2017 12:00am September 03, 2017 3:13pm Please contact the information source for Protocol details. Start: 07-27-2017 End: 09-03-2017 Nystatin (Nyamy) 1 APPLIC b tete Discontinued 1 APPLIC TOPICAL THREE TIMES A DAY July 27, 2017 12:00am September 03, 2017 3:13pm Start: 07-27-2017 End: 09-03-2017 omeprazole 40 mg delayed release oral capsule (12 sources) Proton Pump Inhibitor Start: 04-19-2024 End: 07-17-2024 take 1 capsule by mouth once daily Omeprazole 40 mg capsule,delayed release(DR/EC) Discontinued 40 mg PO DAILY April 30, 2024 1:53pm July 17, 2024 12:31pm ondansetron 8 mg disintegrating oral tablet (12 sources) Serotonin-3 Receptor Antagonist Start: 08-15-2023 End: 04-01-2024 take 1 tablet by mouth every eight hours as needed for nausea and vomiting Ondansetron 8 mg tablet,disintegratin g Discontinued 8 mg PO Q8H as needed for nausea and vomiting August 15, 2023 1:15pm April 01, 2024 4:48pm oxybutynin chloride 5 mg oral tablet (15 sources) Cholinergic Muscarinic Antagonist Start: 06-29-2017 End: 09-03-2017 take 1 tablet by mouth three times daily Oxybutynin Chloride 5 MG tablet Discontinued 5 mg PO THREE TIMES A DAY 90 June 29, 2017 12:00am September 03, 2017 3:13pm oxyCODONE hydrochloride 5 mg oral tablet (15 sources) Opioid Agonist Start: 06-08-2017 End: 06-29-2017 take 1 tablet by mouth every four hours as needed for pain Oxycodone 5 MG tablet Discontinued 5 mg PO EVERY 4 HOURS NEEDED as needed for Mod-Severe Pain (4-07/12) June 08, 2017 12:00am June 29, 2017 8:46pm pantoprazole 40 mg delayed release oral tablet (20 sources) Proton Pump Inhibitor Start: 11-10-2023 End: 04-01-2024 Pantoprazole 40 mg tablet,delayed release (DR/EC) Discontinued mg PO November 10, 2023 1:00am April 01, 2024 4:48pm Start: 11-10-2023 Pantoprazole A ctive MG PO November 10, 2023 1:00am Start: 06-16-2023 pantoprazole 4 0 mg oral enteric coated tablet Dose : 40 mg = 1 tab(s), Oral, qDay, # 30 tab(s), 0 Refill(s), Pharmacy: [facility]/pharmacy #[id number], Ascending cholangitis Elevated LFTs, 155, cm, 06/16/23 13:11:00 EDT, Height, kg, 06/16/23 12:56:00 EDT, Dosing Weight Start Date: 06/16/23 Status: Ordered Start: 01-08-2015 End: 09-03-2017 take 1 tablet by mouth twice daily Pantoprazole 40 MG tablet Discontinued 40 mg PO TWICE A DAY 60 June 29, 2017 8:46pm September 03, 2017 3:13pm Comment on above: Take 40 mg by mouth twice daily. polyethylene glycol 3350 32121 mg powder for oral solution (15 sources) Osmotic Laxative Start: 09-05-20 End: 11-03-19 18 take 17 g by mouth twice daily Polyethylene Glycol 3350 17 GM packet Discontinued 17 g PO TWICE A DAY September 05, 2017 1:00am November 03, 2017 5:07pm microencapsulated potassium chloride 20 meq extended release oral tablet (20 sources) Start: 09-11-20 End: 11-03-19 18 take 1 tablet by mouth once daily Potassium Chloride 20 MEQ tablet Discontinued 20 meq PO DAILY September 11, 2017 1:00am November 03, 2017 5:07pm Start: 06-08-2017 End: 06-29-2017 take 1 tablet by mouth twice daily Potassium Chloride 10 MEQ tablet Discontinued 10 meq PO TWICE A DAY June 08, 2017 12:00am June 29, 2017 8:46pm prednisoLONE acetate 10 mg/ml ophthalmic suspension (15 sources) Corticosteroid Start: 12-29-2020 End: 02-19-2021 Prednisolone Acetate 1 % drops,suspension Discontinued 1 NMA OPHTHALMIC 6 times per day December 29, 2020 12:00am February 19, 2021 3:38pm promethazine hydrochloride 25 mg oral tablet (5 sources) Phenothiazine take 1 tablet by mouth every six hours as needed promethazine (PHENERGAN) 25 mg tablet Take 25 mg by mouth every 6 hours as needed. 0 Active Comment on above: Take 25 mg by mouth every 6 hours as needed. QUEtiapine 25 mg oral tablet (20 sources) Atypical Antipsychotic Start: 09-14-2017 End: 11-03-2017 Quetiapine 25 MG tablet Discontinued 12.5 mg PO AT BEDTIME September 14, 2017 2:33pm November 03, 2017 5:07pm Start: 09-14-2017 End: 11-03-2017 take 12.5 mg by mouth at bedtime Quetiapine Discontinued 12.5 MG PO AT BEDTIME September 14, 2017 2:33pm November 03, 2017 5:07pm Start: 09-14-2017 End: 11-03-2017 risperiDONE 0.25 mg oral tablet (20 sources) Atypical Antipsychotic Start: 11-22-2017 risperi DONE 0.25 mg ODT 0 11/22/2017 Active Start: 11-03-2017 End: 03-29-2018 take 1 tablet by mouth twice daily Risperidone 0.25 mg tablet Discontinued 0.25 mg PO TWICE A DAY November 03, 2017 1:00am March 29, 2018 2:03pm rosuvastatin calcium 20 mg oral tablet (20 sources) HMG-CoA Reductase Inhibitor Start: 05-03-2017 End: 07-27-2017 take 1 tablet by mouth once daily Rosuvastatin (Crestor) 20 MG tablet Discontinued 20 mg PO DAILY June 08, 2017 12:00am July 27, 2017 9:27pm Comment on above: Take 20 mg by mouth once daily. sertraline 50 mg oral tablet (20 sources) Serotonin Reuptake Inhibitor Start: 11-03-2017 End: 03-29-2018 take 1 tablet by mouth once daily Sertraline 50 mg tablet Discontinued 50 mg PO daily November 03, 2017 1:00am March 29, 2018 2:03pm simvastatin 40 mg oral tablet (20 sources) HMG-CoA Reductase Inhibitor Start: 01-08-2015 End: 01-30-2015 take 1 tablet by mouth at bedtime Simvastatin 40 MG tablet Discontinued 40 mg PO AT BEDTIME January 08, 2015 12:00am January 30, 2015 12:58pm Comment on above: Take 40 mg by mouth daily at bedtime. sucralfate 1000 mg oral tablet (6 sources) Aluminum Complex Start: 04-19-2024 End: 07-17-2024 take 1 tablet by mouth every six hours Sucralfate (Carafate) 1 gram tablet Discontinued 1 g PO EVERY 6 HOURS 56 14 April 19, 2024 12:00am July 17, 2024 12:31pm tiZANidine 4 mg oral capsule (20 sources) Central alpha-2 Adrenergic Agonist Start: 11-10-2023 End: 04-01-2024 take 1 capsule by mouth every eight hours Tizanidine 4 mg capsule Discontinued 4 mg PO Q8H November 10, 2023 1:00am April 01, 2024 9:09pm Start: 05-12-2023 End: 10-24-2023 take 1 capsule by mouth every eight hours Tizanidine 4 mg capsule Discontinued 4 mg PO Q8H August 14, 2023 1:00am October 24, 2023 12:20pm Start: 03-11-2021 tiZANidine 4 m g oral tablet Dose : 4 mg = 1 tab(s), Oral, q8h, # 90 tab(s), 0 Refill(s) Start Date: 03/11/21 Status: Ordered topiramate 50 mg oral tablet (20 sources) Start: 01-20-2022 End: 10-24-2023 Topiramate 100 mg tablet Discontinued 50 mg PO TWICE A DAY January 20, 2022 12:00am October 24, 2023 12:07pm Start: 01-20-2022 End: 10-24-2023 take 50 mg by mouth twice daily Topiramate Discontinue d 50 MG PO TWICE A DAY January 20, 2022 12:00am October 24, 2023 12:07pm Start: 09-03-2021 End: 04-01-2024 take 1 tablet by mouth twice daily Topiramate (Topamax) 50 mg tablet Discontinued 50 mg PO TWICE A DAY April 01, 2024 12:00am April 01, 2024 9:09pm traMADol hydrochloride 50 mg oral tablet (20 sources) Opioid Agonist Start: 01-09-2025 End: 01-22-2025 take 1 tablet by mouth every four hours as needed for pain Tramadol 50 mg tablet Discontinued 50 mg PO .every 4 hours as needed for pain 90 14 January 09, 2025 12:00am January 22, 2025 12:00am January 22, 2025 1:01pm Start: 10-04-2024 End: 01-22-2025 take 1 tablet by mouth every six hours as needed for pain Tramadol 50 mg tablet Discontinued 50 mg PO .every 6 hours as needed for pain 60 November 28, 2024 1:21pm January 22, 2025 1:02pm Start: 07-17-2024 End: 10-04-2024 take 1 tablet by mouth four times daily as needed for pain Tramadol 50 mg tablet Discontinued 50 mg PO 4 TIMES DAILY NEEDED as needed for pain July 17, 2024 12:00am October 04, 2024 12:17pm Start: 05-08-2024 End: 08-06-2024 take 1 tablet by mouth every six hours as needed for pain traMADol 50 mg oral tablet Dose : 50 mg =, Oral, q6h, PRN Pain, # 120 tab(s), 2 Refill(s), Chronic low back pain, 154, cm, 05/08/24 13:58:00 EDT, Height, 79.7, kg, 05/08/24 13:58:00 EDT, Dosing Weight Start Date: 05/08/24 Stop Date: 08/06/24 Status: Ordered Start: 04-26-2024 End: 05-16-2024 take 1 tablet by mouth every eight hours as needed for pain Tramadol 50 mg tablet Discontinued 50 mg PO Q8H as needed for pain 30 April 26, 2024 12:00am May 15, 2024 12:00am May 16, 2024 12:04am Start: 09-11-2017 End: 11-03-2017 take 1 tablet by mouth every six hours as needed for pain Tramadol 50 MG tablet Discontinued 50 mg PO EVERY 6 HOURS NEEDED as needed for Pain September 11, 2017 1:00am November 03, 2017 5:08pm 24 hr trospium chloride 60 mg extended release oral capsule (5 sources) Cholinergic Muscarinic Antagonist Start: 10-06-2017 take 1 capsule by mouth once daily Trospium (SANCTURA SR) 60 mg cp24 Take 1 capsule by mouth once daily. 30 capsule 11 10/06/2017 Active Comment on above: Take 1 capsule by mo [facility] once daily. valsartan 320 mg oral tablet (20 sources) Angiotensin 2 Receptor Tawana Start: 09-06-2017 End: 11-03-2017 take 1 tablet by mouth once daily Valsartan 320 MG tablet Discontinued 320 mg PO DAILY September 06, 2017 7:53pm November 03, 2017 5:08pm Start: 09-05-2017 End: 09-06-2017 take 1 tablet by mouth twice daily Valsartan 160 MG tablet Discontinued 160 mg PO TWICE A DAY September 05, 2017 1:00am September 06, 2017 3:54pm vancomycin 125 mg oral capsule (15 sources) Glycopeptide Antibacterial Start: 01-08-2015 End: 01-30-2015 take 1 capsule by mouth every six hours Vancomycin (Vancocin) 125 MG capsule Discontinued 125 mg PO EVERY 6 HOURS January 08, 2015 12:00am January 30, 2015 12:58pm 24 hr venlafaxine 150 mg extended release oral capsule (5 sources) Serotonin and Norepinephrine Reuptake Inhibitor Start: 04-26-2017 take 1 capsule by mouth once daily venlafaxine XR (EFFEXOR XR) 150 mg 24 hr capsule Take 150 mg by mouth once daily. 12 04/26/2017 Active Comment on above: Take 150 mg by mouth once daily. Vibegron (20 sources) Start: 08-14-2023 End: 02-22-2024 take 1 tablet by mouth once daily Vibegron (Gemtesa) 75 mg tablet Discontinued 75 mg PO DAILY August 14, 2023 1:00am February 22, 2024 10:08am Start: 08-14-2023 take 1 tablet by adrián th once daily Vibegron (Gemtesa) 75 mg tablet Active 75 MG PO DAILY August 14, 2023 1:00am Start: 08-14-2023 take 1 tablet by adrián th once daily Vibegron (Gemtesa) 75 mg tablet Active 75 MG PO DAILY August 14, 2023 12:00am Start: 08-14-2023 Start: 04-20-2023 End: 05-17-2023 take 1 tablet by mouth once daily Vibegron (Gemtesa) 75 mg tablet Discontinued 75 mg PO DAILY April 20, 2023 12:00am May 17, 2023 2:45pm Start: 04-20-2023 End: 05-17-2023 take 1 tablet by mouth once daily Vibegron (Gemtesa) 75 mg tablet Discontinued 75 MG PO DAILY April 19, 2023 11:00pm May 17, 2023 1:45pm Start: 04-20-2023 End: 05-17-2023 Start: 04-20-2023 End: 05-17-2023 take 1 tablet by mouth once daily Vibegron (Gemtesa) 75 mg tablet Discontinued 75 MG PO DAILY April 20, 2023 12:00am May 17, 2023 2:45pm vilazodone hydrochloride 40 mg oral tablet (20 sources) Start: 01-20-2022 End: 05-19-2022 take 1 tablet by mouth once daily at mealtime Vilazodone (Viibryd) 40 mg tablet Discontinued 40 mg PO DAILY January 20, 2022 12:00am May 19, 2022 10:39am must administer with a meal/food Start: 12-29-2018 End: 10-21-2021 take 1 tablet by mouth once daily Vilazodone (Viibryd) 40 mg tablet Discontinued 40 mg PO DAILY December 29, 2018 12:00am October 21, 2021 3:06pm Vitamin D3 5000 intl units (125 mcg) oral capsule (5 sources) Start: 03-11-2021 End: 03-06-2022 Vitamin D3 5000 intl units (125 mcg) oral capsule Dose : 5,000 International_Unit = 1 cap(s), Oral, qDay, # 90 cap(s), 3 Refill(s), Pharmacy: [facility]/pharmacy #[id number], Afib Anticoagulant long-term use, 158, cm, 02/10/21 13:15:00 EDT, Height, kg, 03/11/21 12:33:00 EDT, Dosing Weight Start Date: 03/11/21 Stop Date: 03/06/22 Status: Ordered warfarin sodium 5 mg oral tablet (20 sources) Vitamin K Antagonist Start: 05-19-2022 End: 04-20-2023 take 1 tablet by mouth once daily Warfarin 5 mg tablet Discontinued 5 mg PO DAILY May 19, 2022 12:00am April 20, 2023 2:27pm Managed by PCP Start: 01-22-2022 warfarin 5 mg oral tablet Dose : 5 mg = 1 tab(s), Oral, qDay, # 30 tab(s), 5 Refill(s), [id number], 157, cm, 01/22/22 15:31:00 EDT, Height Start Date: 01/22/22 Status: Ordered Start: 09-16-2021 warfarin 2.5 m g oral tablet Dose : 2.5 mg = 1 tab(s), Oral, qDay, # 90 tab(s), 1 Refill(s), [id number], 157.6, cm, 09/03/21 11:20:00 EST, Height, kg, 09/03/21 11:20:00 EST, Dosing Weight Start Date: 09/16/21 Status: Ordered Start: 07-29-2021 warfarin 3 mg oral tablet See Instructions, 1 tab(s) Oral Mon, Tue, Tue, # 15 tab(s), 3 Refill(s), Pharmacy: [facility]/pharmacy #[id number], 157, cm, 07/22/21 15:01:00 EDT, Height, kg, 07/22/21 15:01:00 EDT, Dosing Weight Start Date: 07/29/21 Status: Ordered Start: 11-03-2017 End: 05-19-2022 take 2.5 mg by mouth once daily Warfarin 2 MG tablet Discontinued 2.5 mg PO DAILY@1699November 03, 2017 5:01pm May 19, 2022 10:40am Start: 10-18-2017 take 3 mg by mouth once daily warfarin (COUMADIN) 2.5 mg tablet Take 3 mg by mouth once daily. 0 10/18/2017 Active Start: 07-27-2017 End: 11-03-2017 take 1 tablet by mouth once daily Warfarin 2 MG tablet Discontinued 2 mg PO DAILY@1699September 03, 2017 3:12pm November 03, 2017 5:08pm Start: 07-27-2017 End: 05-19-2022 take 2.5 mg by mouth once daily Warfarin Discontinued 2.5 MG PO DAILY@1699November 03, 2017 5:01pm May 19, 2022 10:40am Start: 06-29-2017 End: 07-27-2017 take 1 tablet by mouth once daily Warfarin (Jantoven) 1 MG tablet Discontinued 1 mg PO DAILY@1699June 29, 2017 12:00am July 27, 2017 9:27pm Start: 06-29-2017 End: 07-27-2017 take 1 tablet by mouth once daily Warfarin (Jantoven) 2.5 MG tablet Discontinued 2.5 mg PO DAILY@1699June 29, 2017 12:00am July 27, 2017 9:27pm Start: 06-29-2017 End: 07-27-2017 Start: 06-08-2017 End: 06-29-2017 Warfarin (Coumadin (Pbkc)) 2 MG tablet Discontinued 2 mg PO MOWE@[id number] 08, 2017 12:00am June 29, 2017 8:44pm Start: 04-09-2017 End: 06-29-2017 Warfarin (Coumadin (Pbkc)) 2 MG tablet Discontinued 2 MG PO MOWE@[id number] 08, 2017 12:00am June 29, 2017 8:44pm Start: 01-08-2015 End: 01-31-2015 Warfarin (Jantoven) 2 MG tab let Discontinued 2 mg PO SuWeFr@1700 January 30, 2015 12:00am January 31, 2015 10:01am Start: 01-08-2015 End: 06-29-2017 Warfarin (Jantoven) 3 MG tab let Discontinued 3 mg PO HANH@1700 June 08, 2017 3:38pm June 29, 2017 8:44pm Comment on above: TAKE 1 TABLET BY ADRIÁN TH 5 DAYS A WEEK - SUN, , TUE, FRID & SAT Take 3 mg by mouth o nce daily. zolpidem tartrate 10 mg oral tablet (20 sources) gamma-Aminobutyric Acid-ergic Agonist Start: 11-03-2017 End: 05-22-2020 Start: 05-08-2017 End: 05-22-2020 take 1 tablet by mouth at bedtime Zolpidem 10 mg tablet Discontinued 10 mg PO AT BEDTIME November 03, 2017 1:00am May 22, 2020 2:50pm Problems Active Problems Problem Classification Problem Date Documented Da te Episodic/Chronic Abdominal pain (14 sources) Abdominal pain; 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: [Generalized abdominal pain] 08-31-2023 Episodic Anxiety disorders (20 sources) Anxiety; 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: [Anxiety disorder, unspecified] Onset: 4 01-27-2021 Chronic Biliary tract disease (20 sources) Acute cholangitis ; 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: [Other cholangitis] 05-17-2023 Chronic Cardiac dysrhythmias (20 sources) Atrial fibrillation; 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: [Paroxysmal atrial fibrillation] Onset: 4 04-30-2020 Chronic Cardiac dysrhythmias (15 sources) Bradycardia; 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: [Bradycardia, unspecified] 09-22-2017 Episodic Complications of surgical procedures or medical care (15 sources) Wound dehiscence; 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: [Disruption of external operation (surgical) wound, not elsewhere classified, initial encounter] 09-23-2017 Episodic Congestive heart failure; nonhypertensive (11 sources) Congestive heart failure; 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: [Heart failure, unspecified] Onset: 4 12-14-2023 Chronic Coronary atherosclerosis and other heart disease (20 sources) Coronary atherosclerosis; 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: [Atherosclerotic heart disease of [place] coronary artery without angina pectoris] 12-29-2018 Chronic Comment on above: JAY to LAD, SVG to OM2 and sequetially to diagonal, SVG to PDA 06/01/17 Diabetes mellitus with complications (1 source) Type 2 diabetes mellitus with hyperglycemia; 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: [Type 2 diabetes mellitus with hyperglycemia] Onset: 4 Chronic Diabetes mellitus without complication (20 sources) Type 2 diabetes mellitus; 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: [Diabetes mellitus] Onset: 4 10-07-2020 Chronic Disorders of lipid metabolism (20 sources) Hypercholesterolemia; 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: [Hyperlipidemia] 08-29-2019 Chronic Diverticulosis and diverticulitis (11 sources) Diverticulitis; 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: [Diverticulitis of intestine, part unspecified, without perforation or abscess with bleeding] Onset: 4 11-21-2014 Chronic E Codes: Fall (20 sources) Fall; 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: [Unspecified fall, initial encounter] 09-23-2017 Episodic E Codes: Fall (10 sources) Fall 08-16-2017 Esophageal disorders (20 sources) Gastroesophageal reflux disease; 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: [Gastro-esophageal reflux disease without esophagitis] Onset: 3 04-09-2020 Chronic Essential hypertension (20 sources) Hypertensive disorder; 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: [Essential hypertension] Onset: 3 04-09-2020 Chronic Fever of unknown origin (20 sources) Fever; 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: [Fever, unspecified] 05-14-2023 Episodic Gastritis and duodenitis (6 sources) Gastritis; 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: [Gastritis, unspecified, without bleeding] 04-27-2024 Episodic Genitourinary symptoms and ill-defined conditions (20 sources) Urge incontinence of urine; 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: [Urge incontinence] Onset: 7 Chronic Comment on above: has bladder stimulat or Genitourinary symptoms and ill-defined conditions (9 sources) Nocturia; 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: [Nocturia] Episodic Headache; including migraine (10 sources) Headache 09-02-2017 Episodic Intestinal obstruction without hernia (6 sources) Fecal impaction; 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: [Fecal impaction] 04-16-2024 Episodic Malaise and fatigue (20 sources) Asthenia; 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: [Fatigue] Onset: 4 07-11-2017 Episodic Mood disorders (20 sources) Depressive disorder; 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: [Depression] Onset: 4 09-28-2019 Chronic Nausea and vomiting (4 sources) Nausea; 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: [Vomiting] 08-31-2023 Episodic Noninfectious gastroenteritis (19 sources) Gastroenteritis; 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: [Noninfective gastroenteritis and colitis, unspecified] 08-14-2023 Episodic Osteoarthritis (10 sources) Arthritis 11-21-2014 Chronic Other aftercare (20 sources) Long-term current use of anticoagulant; 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: [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] 04-30-2020 Episodic Other aftercare (16 sources) Immunosuppression; 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: [Immunosuppression due to drug therapy] 05-13-2023 Episodic Other aftercare (1 source) 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; 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: [Long-term (current) use of anticoagulants] 05-17-2023 Episodic Other aftercare (3 sources) Patient encounter status; 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: [Encounter for therapeutic drug level monitoring] 12-14-2023 Episodic Other aftercare (6 sources) Long-term current use of diuretic; 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: [Encounter for therapeutic drug level monitoring] 12-14-2023 Episodic Other circulatory disease (15 sources) Low blood pressure; 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: [Hypotension, unspecified] 05-13-2023 Episodic Other circulatory disease (4 sources) Hypotension, unspecified; 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: [Hypotension, unspecified] 05-17-2023 Episodic Other connective tissue disease (14 sources) Spasm; 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: [Other muscle spasm] 05-17-2023 Episodic Other connective tissue disease (3 sources) Other muscle spasm; 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: [Spasm of muscle] 06-10-2023 Episodic Other connective tissue disease (3 sources) Bursitis of right hip 04-08-2023 Episodic Other diseases of bladder and urethra (18 sources) Overactive bladder; 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: [Overactive bladder] Onset: 8 05-17-2023 Chronic Other diseases of bladder and urethra (5 sources) Overactive bladder; 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: [Overactive bladder] Onset: 7 05-23-2017 Chronic Other ear and sense organ disorders (10 sources) Unilateral earache 09-02-2017 Episodic Other endocrine disorders (1 source) Increased secretion of gastrin; 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: [Increased secretion of gastrin] Onset: Chronic Other fractures (10 sources) Compression fracture of lumbar spine; 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: [Wedge compression fracture of fourth lumbar vertebra, initial encounter for closed fracture] 11-20-2023 Episodic Other gastrointestinal disorders (10 sources) Constipation 11-21-2014 Episodic Other gastrointestinal disorders (10 sources) Diarrhea 12-29-2014 Episodic Other gastrointestinal disorders (1 source) Therapeutic opioid induced constipation 05-08-2024 Episodic Other gastrointestinal disorders (6 sources) Encopresis ; 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: [Full incontinence of feces] 04-16-2024 Episodic Other gastrointestinal disorders (6 sources) Acute constipation; 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: [Constipation, unspecified] 04-16-2024 Episodic Other hereditary and degenerative nervous system conditions (14 sources) Restless legs; 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: [Restless legs syndrome] 05-17-2023 Chronic Other hereditary and degenerative nervous system conditions (4 sources) Restless legs syndrome; 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: [Restless legs syndrome (RLS)] Onset: 4 06-10-2023 Chronic Other inflammatory condition of skin (20 sources) Psoriasis; 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: [Psoriasis, unspecified] Onset: 3 05-08-2019 Chronic Other injuries and conditions due to external causes (1 source) Infected hematoma 12-01-2023 Episodic Other liver diseases (20 sources) Enzyme level - finding; 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: [Elevated transaminase measurement] 05-13-2023 Episodic Other liver diseases (15 sources) Jaundice; 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: [Unspecified jaundice] 05-13-2023 Episodic Other liver diseases (7 sources) Unspecified jaundice; 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: [Jaundice, unspecified, not of ] 05-17-2023 Episodic Other lower respiratory disease (15 sources) Restrictive lung disease; 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: [Other disorders of lung] 01-09-2018 Episodic Other lower respiratory disease (3 sources) Other disorders of lung; 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: [Other diseases of lung, not elsewhere classified] 06-10-2023 Episodic Other lower respiratory disease (11 sources) Dyspnea; 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: [Shortness of breath] 10-24-2023 Episodic Other lower respiratory disease (5 sources) Shortness of breath; 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: [Shortness of breath] 10-24-2023 Episodic Other nervous system disorders (20 sources) Disorder of brain; 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: [Encephalopathy, unspecified] 05-13-2023 Chronic Other nervous system disorders (7 sources) Encephalopathy, unspecified; 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: [Encephalopathy, unspecified] 05-17-2023 Chronic Other nervous system disorders (5 sources) Chronic pain; 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: [Other chronic pain] 01-09-2025 Chronic Other nervous system disorders (2 sources) Tremor 08-31-2023 Episodic Other non-traumatic joint disorders (5 sources) Shoulder pain 12-17-2022 Episodic Other nutritional; endocrine; and metabolic disorders (20 sources) Morbid obesity; 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: [Morbid (severe) obesity due to excess calories] 09-22-2017 Chronic Other nutritional; endocrine; and metabolic disorders (1 source) Morbid (severe) obesity due to excess calories; 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: [Morbid (severe) obesity due to excess calories] Onset: 4 Chronic Other nutritional; endocrine; and metabolic disorders (2 sources) Unintentional weight loss 08-31-2023 Episodic Other screening for suspected conditions (not mental disorders or infectious disease) (15 sources) CT of chest abnormal; 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: [Abnormal findings on diagnostic imaging of other specified body structures] 05-12-2023 Chronic Other screening for suspected conditions (not mental disorders or infectious disease) (20 sources) INR raised; 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: [Cardiovascular stress test abnormal] 12-17-2022 Episodic Other upper respiratory disease (14 sources) Allergic rhinitis; 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: [Allergic rhinitis, unspecified] 05-17-2023 Chronic Other upper respiratory disease (4 sources) Allergic rhinitis, unspecified; 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: [Allergic rhinitis, cause unspecified] Onset: 4 06-10-2023 Chronic Other upper respiratory disease (10 sources) Bleeding from nose 09-17-2021 Episodic Other upper respiratory infections (5 sources) Sinusitis 08-25-2022 Chronic Otitis media and related conditions (8 sources) Otitis media; 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: [Otitis media of right ear] 08-25-2022 Episodic Pulmonary heart disease (20 sources) H/O: pulmonary embolus; 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: [Pulmonary embolism] Onset: 3 08-15-2020 Episodic Residual codes; unclassified (10 sources) Sleep apnea 05-08-2019 Chronic Comment on above: non compliant CPAP Residual codes; unclassified (15 sources) Obstructive sleep apnea syndrome; 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: [Obstructive sleep apnea (adult) (pediatric)] 09-22-2017 Chronic Residual codes; unclassified (20 sources) Insomnia; 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: [Insomnia, unspecified] 09-28-2019 Episodic Residual codes; unclassified (15 sources) Delirium; 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: [Disorientation, unspecified] 05-12-2023 Episodic Residual codes; unclassified (8 sources) Edema of lower extremity; 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: [Localized edema] 12-28-2023 Episodic Residual codes; unclassified (5 sources) Acute pain; 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: [Pain, unspecified] 01-09-2025 Episodic Skin and subcutaneous tissue infections (6 sources) Cellulitis of upper limb; 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: [Cellulitis of leg, excluding foot] 12-17-2022 Episodic Spondylosis; intervertebral disc disorders; other back problems (11 sources) Chronic low back pain; 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: [Low back pain] 08-15-2020 Episodic Substance-related disorders (10 sources) Continuous opioid dependence; 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: [Opioid dependence, uncomplicated] Onset: 2 07-24-2012 Chronic Substance-related disorders (15 sources) Benzodiazepine withdrawal; 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: [Sedative, hypnotic or anxiolytic use, unspecified with withdrawal, unspecified] 05-12-2023 Episodic Superficial injury; contusion (10 sources) Hematoma of lower limb; 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: [Contusion of unspecified lower leg, initial encounter] 11-20-2023 Episodic Thyroid disorders (12 sources) Hypothyroidism; 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: [Hypothyroidism, unspecified] Onset: 5 04-09-2020 Chronic Unclassified (1 source) Unknown / UNK(Unknown) Onset: 7 Unclassified (7 sources) Patient encounter status 03-05-2022 Unclassified (4 sources) Tendinitis of shoulder region 01-07-2023 Unclassified (3 sources) Liver function test increased 06-16-2023 Unclassified (1 source) Low back pain, unspecified; 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: [Low back pain, unspecified] Onset: 4 Urinary tract infections (20 sources) Urinary tract infectious disease; 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: [Urinary tract infection, site not specified] Onset: 3 11-21-2014 Episodic Past or Other Problems Problem Classification Problem Date Documented Da te Episodic/Chronic Biliary tract disease (18 sources) Common bile duct calculus; 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: [Calculus of bile duct without cholangitis or cholecystitis without obstruction] Onset: 08-10-2024 05-17-2023 Episodic Conditions associated with dizziness or vertigo (11 sources) Dizziness; 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: [Dizziness and giddiness] Onset: 07-26-2024 11-28-2019 Episodic Coronary atherosclerosis and other heart disease (1 source) Presence of aortocoronary bypass graft; 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: [Aortocoronary bypass status] Onset: 05-03-2017 05-17-2023 Episodic Fluid and electrolyte disorders (1 source) Hypokalemia; 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: [Hypokalemia] Onset: 09-27-2024 Episodic Nonspecific chest pain (20 sources) Chest pain; 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: [Chest pain, unspecified] Onset: 04-12-2024 05-28-2017 Episodic Nutritional deficiencies (1 source) Vitamin deficiency, unspecified; 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: [Vitamin deficiency, unspecified] Onset: 07-06-2024 Episodic Other aftercare (1 source) 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; 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: [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] Onset: 04-12-2024 Episodic Other gastrointestinal disorders (1 source) Diarrhea, unspecified; 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: [Diarrhea, unspecified] Onset: 07-26-2024 Episodic Other gastrointestinal disorders (1 source) Constipation, unspecified; 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: [Constipation, unspecified] Onset: 10-05-2024 Episodic Other upper respiratory disease (1 source) Nasal congestion; 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: [Nasal congestion] Onset: 09-27-2024 Episodic Residual codes; unclassified (1 source) Insomnia, unspecified; 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: [Insomnia, unspecified] Onset: 07-06-2024 Episodic Unclassified (1 source) Low back pain, unspecified; 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: [Low back pain, unspecified] Onset: 05-23-2024 Results Test Name Value Interpretation Reference Range Facility Absolute lymphocyte countOrd ered By: Laverne Lea on 02-11-2025 Lymphocytes Auto (Unsp spec) [#/Vol] 3.25 10*3/uL 0.83-4.51 [facility] Absolute neutrophil countOrd ered By: Laverne Lea on 02-11-2025 Neutrophils (Bld) [#/Vol] 3.2 10*3/uL 2.0-7.7 [facility] Anion gap in Serum or Plasma Ordered By: Laverne Lea on 02-11-2025 Anion gap [Moles/Vol] 11 mmol/L 5-15 [facility] Automated lymphocyte count a s percentage of total leukocytesOrdered By: Laverne Lea on 02-11-2025 Lymphocytes/100 WBC Auto (Unsp spec) 45.2 % High 19-41 [facility] BUN/creatinine ratioOrdered By: Laverne Lea on 02-11-2025 Urea nitrogen/Creatinine [Mass ratio] 20.8 mg/mg High 10-20 [facility] Basophil percentageOrdered B y: Laverne Lea on 02-11-2025 Basophils/100 WBC (Bld) 0.7 % 0-1 [facility] Carbon dioxide, total [Moles /volume] in Central venous bloodOrdered By: Laverne Lea on 02-11-2025 CO2 [Moles/Vol] 23.4 mmol/L 21.0-32.0 [facility] Chloride assayOrdered By: Leonora Lea on 02-11-2025 Chloride [Moles/Vol] 106 mmol/L 98-108 [facility] Eosinophil percentageOrdered By: Laverne Lea on 02-11-2025 Eosinophils/100 WBC (Bld) 1.9 % 0-5 [facility] Erythrocyte distribution wid th ratioOrdered By: Laverne Lea on 02-11-2025 Erythrocyte distribution width (RBC) [Ratio] 12.4 % 11.6-14.6 [facility] Erythrocyte distribution wid th standard deviationOrdered By: Laverne Lea on 02-11-2025 Erythrocyte distribution width (RBC) [Ratio] 42.6 fl 35.1-43.9 [facility] Glomerular filtration rate ( GFR) estimation/1.73 sq m using serum, plasma, or whole bOrdered By: Laverne Lea on 02-11-2025 GFR/1.73 sq M.predicted among non-blacks MDRD (S/P/Bld) [Vol rate/Area] 61 mL/min/{1.73_m2} >60 [facility] Comment on above: mL/min/1.73m2 CKD-EP I Creatinine Equation (2020) Hematocrit Auto (Bld) [Volum e fraction]Ordered By: Laverne Lea on 02-11-2025 Hematocrit (Bld) [Volume fraction] 33.6 % Low 37-47 [facility] Hemoglobin A1c percentageOrd ered By: Laverne Lea on 02-11-2025 HbA1c (Bld) [Mass fraction] 7.3 % High <5.7 [facility] Comment on above: Normal < 5.7 % Predi abetic 5.7 - 6.4 % Diabetic >or= 6.5 % Please note range changes. Hemoglobin measurementOrdere d By: Laverne Lea on 02-11-2025 Hemoglobin (Bld) [Mass/Vol] 11.0 g/dL Low 12.0-15.0 [facility] Immature granulocytes/100 WB C Auto (Bld)Ordered By: Laverne Lea on 02-11-2025 Immature granulocytes/100 WBC (Bld) 0.300 % 0.0-0.9 [facility] Comment on above: IG% - Immature Granu locytes (promyelocytes, myelocytes and metamyelocytes) > 1% indicates that a LEFT SHIFT is Present. MCV (mean corpuscular volume ) determinationOrdered By: Laverne Lea on 02-11-2025 MCV (RBC) [Entitic vol] 93.9 fL 81-99 [facility] Mean corpuscular hemoglobin (MCH) determinationOrdered By: beverly Lea on 02-11-2025 MCH (RBC) [Entitic mass] 30.7 pg 27.0-32.0 [facility] Mean corpuscular hemoglobin concentration (MCHC) determinationOrdered By: Laverne Lea on 02-11-2025 MCHC (RBC) [Mass/Vol] 32.7 g/dL 32-36 [facility] Mean platelet volume determi nationOrdered By: Laverne Lea on 02-11-2025 Platelet mean volume (Bld) [Entitic vol] 10.1 fL 6.2-12.0 [facility] Monocyte percentageOrdered B y: Laverne Lea on 02-11-2025 Monocytes/100 WBC (Bld) 7.0 % 0-10 [facility] Neutrophil percentageOrdered By: Laverne Lea on 02-11-2025 Neutrophils/100 WBC (Bld) 44.9 % Low 47-70 [facility] Nucleated red blood cell per centageOrdered By: Laverne Lea on 02-11-2025 Nucleated RBC/100 WBC (Bld) [Ratio] 0 % 0-5 [facility] Platelet countOrdered By: Leonora beverly Kirtesvin on 02-11-2025 Platelets (Bld) [#/Vol] 225 10*3/uL 150-450 [facility] Potassium measurement (mass/ volume)Ordered By: Laverne Moraleznetoayo on 02-11-2025 Potassium (Unsp spec) [Mass/Vol] 3.8 mmol/L 3.3-5.1 [facility] RBC Auto (Bld) [#/Vol]Ordere d By: Laverne Kirtesvin on 02-11-2025 RBC (Bld) [#/Vol] 3.58 10*6/uL Low 4.2-5.4 [facility] Serum creatinine measurement (mass/volume)Ordered By: Laverne Moraleznetoayo on 02-11-2025 Creatinine [Mass/Vol] 0.93 mg/dL 0.70-1.20 [facility] Serum glucose measurement (m ass/volume)Ordered By: Laverne Moraleznetoayo on 02-11-2025 Glucose [Mass/Vol] 191 mg/dL High 70-99 [facility] Serum or plasma calcium inga urement (mass/volume)Ordered By: Antonettenaginate Moralezesvin on 02-11-2025 Calcium [Mass/Vol] 9.4 mg/dL 7.6-11.0 [facility] Serum or plasma urea nitroge n measurement (mass/volume)Ordered By: Laverne Lea on 02-11-2025 Urea nitrogen [Mass/Vol] 19 mg/dL 4-19 [facility] Sodium levelOrdered By: Antonette orozco Kirtnetoayo on 02-11-2025 Sodium [Moles/Vol] 140 mmol/L 133-145 [facility] White blood cell (WBC) count Ordered By: Leonorafatounaginate Moraleznetoayo on 02-11-2025 WBC (Bld) [#/Vol] 7.2 10*3/uL 4.4-11.0 [facility] TSH DL <= 0.005 mIU/L QnOrde red By: Antonettenaginate Moraleznetoayo on 02-04-2025 TSH Qn 1.570 uIU/mL 0.300-4.200 [facility] Absolute lymphocyte countOrd ered By: Laverne Lea on 01-14-2025 Lymphocytes Auto (Unsp spec) [#/Vol] 3.03 10*3/uL 0.83-4.51 [facility] Absolute neutrophil countOrd ered By: Laverne Lea on 01-14-2025 Neutrophils (Bld) [#/Vol] 3.7 10*3/uL 2.0-7.7 [facility] Anion gap in Serum or Plasma Ordered By: Laverne Lea on 01-14-2025 Anion gap [Moles/Vol] 11 mmol/L 5-15 [facility] Automated lymphocyte count a s percentage of total leukocytesOrdered By: Laverne Lea on 01-14-2025 Lymphocytes/100 WBC Auto (Unsp spec) 40.3 % 19-41 [facility] BUN/creatinine ratioOrdered By: Laverne Lea on 01-14-2025 Urea nitrogen/Creatinine [Mass ratio] 20.4 mg/mg High 10-20 [facility] Basophil percentageOrdered B y: Laverne Lea on 01-14-2025 Basophils/100 WBC (Bld) 0.4 % 0-1 [facility] Carbon dioxide, total [Moles /volume] in Central venous bloodOrdered By: Laverne Lea on 01-14-2025 CO2 [Moles/Vol] 23.1 mmol/L 21.0-32.0 [facility] Chloride assayOrdered By: Leonora Lea on 01-14-2025 Chloride [Moles/Vol] 104 mmol/L 98-108 [facility] Eosinophil percentageOrdered By: beverly Lea on 01-14-2025 Eosinophils/100 WBC (Bld) 1.3 % 0-5 [facility] Erythrocyte distribution wid th ratioOrdered By: Laverne Lea on 01-14-2025 Erythrocyte distribution width (RBC) [Ratio] 12.0 % 11.6-14.6 [facility] Erythrocyte distribution wid th standard deviationOrdered By: Laverne Lea on 01-14-2025 Erythrocyte distribution width (RBC) [Ratio] 41.0 fl 35.1-43.9 [facility] Glomerular filtration rate ( GFR) estimation/1.73 sq m using serum, plasma, or whole bOrdered By: Laverne Lea on 01-14-2025 GFR/1.73 sq M.predicted among non-blacks MDRD (S/P/Bld) [Vol rate/Area] 66 mL/min/{1.73_m2} >60 [facility] Comment on above: mL/min/1.73m2 CKD-EP I Creatinine Equation (2020) Hematocrit Auto (Bld) [Volum e fraction]Ordered By: Laverne Lea on 01-14-2025 Hematocrit (Bld) [Volume fraction] 31.3 % Low 37-47 [facility] Hemoglobin measurementOrdere d By: Laverne Lea on 01-14-2025 Hemoglobin (Bld) [Mass/Vol] 10.5 g/dL Low 12.0-15.0 [facility] Immature granulocytes/100 WB C Auto (Bld)Ordered By: Laverne Lea on 01-14-2025 Immature granulocytes/100 WBC (Bld) 0.100 % 0.0-0.9 [facility] Comment on above: IG% - Immature Granu locytes (promyelocytes, myelocytes and metamyelocytes) > 1% indicates that a LEFT SHIFT is Present. MCV (mean corpuscular volume ) determinationOrdered By: Laverne Lea 01-14-2025 MCV (RBC) [Entitic vol] 94.0 fL 81-99 [facility] Mean corpuscular hemoglobin (MCH) determinationOrdered By: Laverne Lea 01-14-2025 MCH (RBC) [Entitic mass] 31.5 pg 27.0-32.0 [facility] Mean corpuscular hemoglobin concentration (MCHC) determinationOrdered By: Laverne Lea 01-14-2025 MCHC (RBC) [Mass/Vol] 33.5 g/dL 32-36 [facility] Mean platelet volume determi nationOrdered By: Laverne Lea 01-14-2025 Platelet mean volume (Bld) [Entitic vol] 10.3 fL 6.2-12.0 [facility] Monocyte percentageOrdered B y: Laverne Kirtesvin on 01-14-2025 Monocytes/100 WBC (Bld) 8.4 % 0-10 [facility] Neutrophil percentageOrdered By: Laverne Moraleznetoaoy on 01-14-2025 Neutrophils/100 WBC (Bld) 49.5 % 47-70 [facility] Nucleated red blood cell per centageOrdered By: Laverne Lea on 01-14-2025 Nucleated RBC/100 WBC (Bld) [Ratio] 0 % 0-5 [facility] Platelet countOrdered By: Leonora katienate Moraleznetoayo on 01-14-2025 Platelets (Bld) [#/Vol] 219 10*3/uL 150-450 [facility] Potassium measurement (mass/ volume)Ordered By: Laverne Lea on 01-14-2025 Potassium (Unsp spec) [Mass/Vol] 4.2 mmol/L 3.3-5.1 [facility] RBC Auto (Bld) [#/Vol]Ordere d By: Laverne Moraleznetoayo on 01-14-2025 RBC (Bld) [#/Vol] 3.33 10*6/uL Low 4.2-5.4 [facility] Serum creatinine measurement (mass/volume)Ordered By: Laverne Lea on 01-14-2025 Creatinine [Mass/Vol] 0.88 mg/dL 0.70-1.20 [facility] Serum glucose measurement (m ass/volume)Ordered By: Laverne Lea on 01-14-2025 Glucose [Mass/Vol] 148 mg/dL High 70-99 [facility] Serum or plasma calcium inga urement (mass/volume)Ordered By: Laverne Lea on 01-14-2025 Calcium [Mass/Vol] 9.5 mg/dL 7.6-11.0 [facility] Serum or plasma urea nitroge n measurement (mass/volume)Ordered By: Laverne Lea on 01-14-2025 Urea nitrogen [Mass/Vol] 18 mg/dL 4-19 [facility] Sodium levelOrdered By: Antonette Lea on 01-14-2025 Sodium [Moles/Vol] 138 mmol/L 133-145 [facility] White blood cell (WBC) count Ordered By: Laverne Lea on 01-14-2025 WBC (Bld) [#/Vol] 7.5 10*3/uL 4.4-11.0 [facility] Absolute lymphocyte countOrd ered By: Laverne Lea on 01-10-2025 Lymphocytes Auto (Unsp spec) [#/Vol] 3.42 10*3/uL 0.83-4.51 [facility] Absolute neutrophil countOrd ered By: Laverne Lea on 01-10-2025 Neutrophils (Bld) [#/Vol] 2.7 10*3/uL 2.0-7.7 [facility] Automated lymphocyte count a s percentage of total leukocytesOrdered By: Laverne Lea on 01-10-2025 Lymphocytes/100 WBC Auto (Unsp spec) 50.3 % High 19-41 [facility] Basophil percentageOrdered B y: Laverne Lea on 01-10-2025 Basophils/100 WBC (Bld) 0.6 % 0-1 [facility] Eosinophil percentageOrdered By: Laverne Lea on 01-10-2025 Eosinophils/100 WBC (Bld) 2.1 % 0-5 [facility] Erythrocyte distribution wid th ratioOrdered By: Laverne Lea on 01-10-2025 Erythrocyte distribution width (RBC) [Ratio] 11.9 % 11.6-14.6 [facility] Erythrocyte distribution wid th standard deviationOrdered By: Laverne Lea on 01-10-2025 Erythrocyte distribution width (RBC) [Ratio] 40.2 fl 35.1-43.9 [facility] Hematocrit Auto (Bld) [Volum e fraction]Ordered By: Laverne Lea on 01-10-2025 Hematocrit (Bld) [Volume fraction] 32.1 % Low 37-47 [facility] Hemoglobin measurementOrdere d By: Laverne Lea on 01-10-2025 Hemoglobin (Bld) [Mass/Vol] 10.8 g/dL Low 12.0-15.0 [facility] Immature granulocytes/100 WB C Auto (Bld)Ordered By: Laverne Lea on 01-10-2025 Immature granulocytes/100 WBC (Bld) 0.000 % 0.0-0.9 [facility] Comment on above: IG% - Immature Granu locytes (promyelocytes, myelocytes and metamyelocytes) > 1% indicates that a LEFT SHIFT is Present. MCV (mean corpuscular volume ) determinationOrdered By: Laverne Lea on 01-10-2025 MCV (RBC) [Entitic vol] 93.0 fL 81-99 [facility] Mean corpuscular hemoglobin (MCH) determinationOrdered By: Laverne Lea on 01-10-2025 MCH (RBC) [Entitic mass] 31.3 pg 27.0-32.0 [facility] Mean corpuscular hemoglobin concentration (MCHC) determinationOrdered By: Laverne Lea on 01-10-2025 MCHC (RBC) [Mass/Vol] 33.6 g/dL 32-36 [facility] Mean platelet volume determi nationOrdered By: Laverne Lea on 01-10-2025 Platelet mean volume (Bld) [Entitic vol] 10.1 fL 6.2-12.0 [facility] Monocyte percentageOrdered B y: Laverne Lea on 01-10-2025 Monocytes/100 WBC (Bld) 6.9 % 0-10 [facility] Neutrophil percentageOrdered By: Laverne Lea on 01-10-2025 Neutrophils/100 WBC (Bld) 40.1 % Low 47-70 [facility] Nucleated red blood cell per centageOrdered By: Laverne Lea on 01-10-2025 Nucleated RBC/100 WBC (Bld) [Ratio] 0 % 0-5 [facility] Platelet countOrdered By: Leonora Lea on 01-10-2025 Platelets (Bld) [#/Vol] 223 10*3/uL 150-450 [facility] RBC Auto (Bld) [#/Vol]Ordere d By: Laverne Lea on 01-10-2025 RBC (Bld) [#/Vol] 3.45 10*6/uL Low 4.2-5.4 [facility] White blood cell (WBC) count Ordered By: Laverne Lea on 01-10-2025 WBC (Bld) [#/Vol] 6.8 10*3/uL 4.4-11.0 [facility] TSH DL <= 0.005 mIU/L QnOrde red By: Laverne Lea on 12-24-2024 Thyroid Stimulating Hormone (TSH) 2.070 uIU/mL 0.300-4.200 [facility] TSH Qn 2.070 uIU/mL 0.300-4.200 [facility] Absolute lymphocyte countOrd ered By: Laverne Lea on 12-10-2024 Lymphocytes Auto (Unsp spec) [#/Vol] 3.05 10*3/uL 0.83-4.51 [facility] Absolute neutrophil countOrd ered By: Laverne Lea on 12-10-2024 Neutrophils (Bld) [#/Vol] 2.7 10*3/uL 2.0-7.7 [facility] Anion gap in Serum or Plasma Ordered By: Laverne Lea on 12-10-2024 Anion gap [Moles/Vol] 11 mmol/L 5-15 [facility] Automated lymphocyte count a s percentage of total leukocytesOrdered By: Laverne Lea on 12-10-2024 Lymphocytes/100 WBC Auto (Unsp spec) 48.1 % High 19-41 [facility] BUN/creatinine ratioOrdered By: Laverne Lea on 12-10-2024 Urea nitrogen/Creatinine [Mass ratio] 21.8 mg/mg High 10-20 [facility] Basophil percentageOrdered B y: Laverne Lea on 12-10-2024 Basophils/100 WBC (Bld) 0.6 % 0-1 [facility] Carbon dioxide, total [Moles /volume] in Central venous bloodOrdered By: Laverne Lea on 12-10-2024 CO2 [Moles/Vol] 22.1 mmol/L 21.0-32.0 [facility] Chloride assayOrdered By: Leonora Lea on 12-10-2024 Chloride [Moles/Vol] 107 mmol/L 98-108 [facility] Eosinophil percentageOrdered By: Laverne Lea on 12-10-2024 Eosinophils/100 WBC (Bld) 1.3 % 0-5 [facility] Erythrocyte distribution wid th (RBC) [Ratio]Ordered By: Laverne Lea on 12-10-2024 Erythrocyte distribution width (RBC) [Entitic vol] 39.8 fL 35.1-43.9 [facility] Erythrocyte distribution wid th ratioOrdered By: Laverne Lea on 12-10-2024 Erythrocyte distribution width (RBC) [Ratio] 11.8 % 11.6-14.6 [facility] Erythrocyte distribution wid th standard deviationOrdered By: Laverne Lea on 12-10-2024 Erythrocyte distribution width (RBC) [Ratio] 39.8 fl 35.1-43.9 [facility] GFR/1.73 sq M.predicted dwain g non-blacks MDRD (S/P/Bld) [Vol rate/Area]Ordered By: Laverne Lea on 12-10-2024 Estimated GFR (MDRD) Non-Af Amer 64 >60 [facility] Comment on above: mL/min/1.73m2 CKD-EP I Creatinine Equation (2020) Glomerular filtration rate ( GFR) estimation/1.73 sq m using serum, plasma, or whole bOrdered By: Laverne Lea on 12-10-2024 GFR/1.73 sq M.predicted among non-blacks MDRD (S/P/Bld) [Vol rate/Area] 64 mL/min/{1.73_m2} >60 [facility] Comment on above: mL/min/1.73m2 CKD-EP I Creatinine Equation (2020) Hematocrit Auto (Bld) [Volum e fraction]Ordered By: Laverne Lea on 12-10-2024 Hematocrit (Bld) [Volume fraction] 33.6 % Low 37-47 [facility] Hemoglobin measurementOrdere d By: Laverne Lea on 12-10-2024 Hemoglobin (Bld) [Mass/Vol] 11.4 g/dL Low 12.0-15.0 [facility] Immature granulocytes/100 WB C Auto (Bld)Ordered By: Laverne Lea on 12-10-2024 Immature granulocytes/100 WBC (Bld) 0.200 % 0.0-0.9 [facility] Comment on above: IG% - Immature Granu locytes (promyelocytes, myelocytes and metamyelocytes) > 1% indicates that a LEFT SHIFT is Present. Lymphocytes Auto (Unsp spec) [#/Vol]Ordered By: Laverne Lea on 12-10-2024 Lymphocytes (Bld) [#/Vol] 3.05 10*3/uL 0.83-4.51 [facility] Lymphocytes/100 WBC Auto (Un sp spec)Ordered By: Laverne Lea on 12-10-2024 Lymphocytes/100 WBC (Bld) 48.1 % High 19-41 [facility] MCV (mean corpuscular volume ) determinationOrdered By: Laverne Lea on 12-10-2024 MCV (RBC) [Entitic vol] 92.6 fL 81-99 [facility] Mean corpuscular hemoglobin (MCH) determinationOrdered By: Laverne Lea on 12-10-2024 MCH (RBC) [Entitic mass] 31.4 pg 27.0-32.0 [facility] Mean corpuscular hemoglobin concentration (MCHC) determinationOrdered By: Laverne Lea on 12-10-2024 MCHC (RBC) [Mass/Vol] 33.9 g/dL 32-36 [facility] Mean platelet volume determi nationOrdered By: Laverne Lea on 12-10-2024 Platelet mean volume (Bld) [Entitic vol] 9.7 fL 6.2-12.0 [facility] Monocyte percentageOrdered B y: Laverne Lea on 12-10-2024 Monocytes/100 WBC (Bld) 7.1 % 0-10 [facility] Neutrophil percentageOrdered By: Laverne Lea on 12-10-2024 Neutrophils/100 WBC (Bld) 42.7 % Low 47-70 [facility] Nucleated red blood cell per centageOrdered By: Antonettenaginate Lea on 12-10-2024 Nucleated RBC/100 WBC (Bld) [Ratio] 0 % 0-5 [facility] Platelet countOrdered By: Leonora fatouernesto Lea on 12-10-2024 Platelets (Bld) [#/Vol] 220 10*3/uL 150-450 [facility] Potassium (Unsp spec) [Mass/ Vol]Ordered By: Laverne Lea on 12-10-2024 Potassium [Moles/Vol] 4.1 mmol/L 3.3-5.1 [facility] Potassium measurement (mass/ volume)Ordered By: Laverne Lea on 12-10-2024 Potassium (Unsp spec) [Mass/Vol] 4.1 mmol/L 3.3-5.1 [facility] RBC Auto (Bld) [#/Vol]Ordere d By: Antonettenaginate Lea on 12-10-2024 RBC (Bld) [#/Vol] 3.63 10*6/uL Low 4.2-5.4 [facility] Serum creatinine measurement (mass/volume)Ordered By: Laverne Lea on 12-10-2024 Creatinine [Mass/Vol] 0.90 mg/dL 0.70-1.20 [facility] Serum glucose measurement (m ass/volume)Ordered By: Laverne Lea on 12-10-2024 Glucose [Mass/Vol] 86 mg/dL 70-99 [facility] Serum or plasma calcium inga urement (mass/volume)Ordered By: Laverne Lea on 12-10-2024 Calcium [Mass/Vol] 9.5 mg/dL 7.6-11.0 [facility] Serum or plasma urea nitroge n measurement (mass/volume)Ordered By: Laverne Lea on 12-10-2024 Urea nitrogen [Mass/Vol] 20 mg/dL High 4-19 [facility] Sodium levelOrdered By: Antonette barnesayo Leonora on 12-10-2024 Sodium [Moles/Vol] 140 mmol/L 133-145 [facility] White blood cell (WBC) count Ordered By: Laverne Lea on 12-10-2024 WBC (Bld) [#/Vol] 6.3 10*3/uL 4.4-11.0 [facility] Absolute lymphocyte countOrd ered By: Laverne Lea on 11-12-2024 Lymphocytes Auto (Unsp spec) [#/Vol] 5.06 10*3/uL High 0.83-4.51 [facility] Absolute neutrophil countOrd ered By: Laverne Moraleznetoayo on 11-12-2024 Neutrophils (Bld) [#/Vol] 3.8 10*3/uL 2.0-7.7 [facility] Automated lymphocyte count a s percentage of total leukocytesOrdered By: Laverne Lea on 11-12-2024 Lymphocytes/100 WBC Auto (Unsp spec) 52.6 % High 19-41 [facility] Basophil percentageOrdered B y: Laverne Lea on 11-12-2024 Basophils/100 WBC (Bld) 0.5 % 0-1 [facility] Blood urea nitrogen (BUN)/cr eatinine ratioOrdered By: Laverne Lea on 11-12-2024 Urea nitrogen/Creatinine [Mass ratio] 15.0 mg/mg 10-20 [facility] Carbon dioxide measurementOr dered By: Laverne Lea on 11-12-2024 CO2 [Moles/Vol] 25.0 mmol/L 21.0-32.0 [facility] Chloride measurementOrdered By: Laverne Lea on 11-12-2024 Chloride [Moles/Vol] 108 mmol/L High 98-107 [facility] Eosinophil percentageOrdered By: Laverne Lea on 11-12-2024 Eosinophils/100 WBC (Bld) 1.4 % 0-5 [facility] Erythrocyte distribution wid th (RBC) [Ratio]Ordered By: Laverne Lea on 11-12-2024 Erythrocyte distribution width (RBC) [Entitic vol] 42.1 fL 35.1-43.9 [facility] Erythrocyte distribution wid th ratioOrdered By: Laverne Lea on 11-12-2024 Erythrocyte distribution width (RBC) [Ratio] 12.1 % 11.6-14.6 [facility] Erythrocyte distribution wid th standard deviationOrdered By: Leonorafatounaginate Moraleznetoayo on 11-12-2024 Erythrocyte distribution width (RBC) [Ratio] 42.1 fl 35.1-43.9 [facility] Estimated glomerular filtrat ion rate (GFR) AmericanOrdered By: Laverne Lea on 11-12-2024 Estimated GFR (MDRD) Amer 68 mL/min >60 [facility] Comment on above: GFR Calc Glomerular filtration rate ( GFR) estimationOrdered By: Laverne Lea on 11-12-2024 Estimated GFR (MDRD) Non-Af Amer 56 mL/min Low >60 [facility] Comment on above: Non- GFR Calc GFR/1.73 sq M.predicted among non-blacks MDRD (S/P/Bld) [Vol rate/Area] 56 mL/min/{1.73_m2} Low >60 [facility] Comment on above: Non- GFR Calc Glucose measurementOrdered B y: Leonorabeverly Lea on 11-12-2024 Glucose [Mass/Vol] 130 mg/dL High 74-106 [facility] Comment on above: Fasting Glucose resu lt greater than or equal to 126 mg/dL suggests DIABETES MELLITUS per A.D.A. criteria. Hematocrit Auto (Bld) [Volum e fraction]Ordered By: Laverne Lea on 11-12-2024 Hematocrit (Bld) [Volume fraction] 38.9 % 37-47 [facility] Hemoglobin A1c percentageOrd ered By: Laverne Lea on 11-12-2024 HbA1c (Bld) [Mass fraction] 7.2 % High 3.8-5.6 [facility] Comment on above: Normal < 5.7 % Predi abetic 5.7 - 6.4 % Diabetic >or= 6.5 % Please note range changes. Hemoglobin measurementOrdere d By: Laverne Lea on 11-12-2024 Hemoglobin (Bld) [Mass/Vol] 12.7 g/dL 12.0-15.0 [facility] Immature granulocytes/100 WB C Auto (Bld)Ordered By: Laverne Lea on 11-12-2024 Immature granulocytes/100 WBC (Bld) 0.200 % 0.0-0.9 [facility] Comment on above: IG% - Immature Granu locytes (promyelocytes, myelocytes and metamyelocytes) > 1% indicates that a LEFT SHIFT is Present. Lymphocytes Auto (Unsp spec) [#/Vol]Ordered By: Laverne Lea on 11-12-2024 Lymphocytes (Bld) [#/Vol] 5.06 10*3/uL High 0.83-4.51 [facility] Lymphocytes/100 WBC Auto (Un sp spec)Ordered By: Laverne Lea on 11-12-2024 Lymphocytes/100 WBC (Bld) 52.6 % High 19-41 [facility] MCV (mean corpuscular volume ) determinationOrdered By: Laverne Lea on 11-12-2024 MCV (RBC) [Entitic vol] 94.2 fL 81-99 [facility] Mean corpuscular hemoglobin (MCH) determinationOrdered By: Laverne Lea on 11-12-2024 MCH (RBC) [Entitic mass] 30.8 pg 27.0-32.0 [facility] Mean corpuscular hemoglobin concentration (MCHC) determinationOrdered By: Antonetteseatonvillenate Lea on 11-12-2024 MCHC (RBC) [Mass/Vol] 32.6 g/dL 32-36 [facility] Mean platelet volume determi nationOrdered By: Laverne Lea on 11-12-2024 Platelet mean volume (Bld) [Entitic vol] 9.7 fL 6.2-12.0 [facility] Monocyte percentageOrdered B y: Laverne Lea on 11-12-2024 Monocytes/100 WBC (Bld) 5.7 % 0-10 [facility] Neutrophil percentageOrdered By: Laverne Lea on 11-12-2024 Neutrophils/100 WBC (Bld) 39.6 % Low 47-70 [facility] Nucleated red blood cell per centageOrdered By: Laverne Lea on 11-12-2024 Nucleated RBC/100 WBC (Bld) [Ratio] 0 % 0-5 [facility] Platelet countOrdered By: Leonora beverly Kirtnetoayo on 11-12-2024 Platelets (Bld) [#/Vol] 302 10*3/uL 150-450 [facility] Potassium measurementOrdered By: Laverne Moraleznetoayo on 11-12-2024 Potassium [Moles/Vol] 4.2 mmol/L 3.5-5.1 [facility] RBC Auto (Bld) [#/Vol]Ordere d By: Leonorabeverly Kirtnetoayo on 11-12-2024 RBC (Bld) [#/Vol] 4.13 10*6/uL Low 4.2-5.4 [facility] Reactive lymphocyte countOrd ered By: Laverne Moraleznetoayo on 11-12-2024 Reactive Lymphocytes 1+ [facility] Serum anion gap measurementO rdered By: Laevrne Lea on 11-12-2024 Anion gap [Moles/Vol] 7 mmol/L 5-15 [facility] Serum or plasma calcium inga urement (mass/volume)Ordered By: Laverne Lea on 11-12-2024 Calcium [Mass/Vol] 9.7 mg/dL 8.5-10.1 [facility] Serum or plasma creatinine m easurement (mass/volume)Ordered By: Laverne Lea on 11-12-2024 Creatinine [Mass/Vol] 1.00 mg/dL 0.55-1.02 [facility] Comment on above: The validity of the calculated GFR & GFRAA in patients over 70 years has not been determined. Clinical correlation is essential. Serum or plasma thyroid stim ulating hormone (TSH) measurement (units/volume)Ordered By: Laverne Lea on 11-12-2024 TSH Qn 3.410 uIU/mL 0.358-3.740 [facility] Serum or plasma urea nitroge n measurement (mass/volume)Ordered By: Laverne Lea on 11-12-2024 Urea nitrogen [Mass/Vol] 15 mg/dL 7-18 [facility] Sodium levelOrdered By: Antonette Lea on 11-12-2024 Sodium [Moles/Vol] 140 mmol/L 136-145 [facility] TSH QnOrdered By: Laverne Lea on 11-12-2024 Thyroid Stimulating Hormone (TSH) 3.410 uIU/mL 0.358-3.740 [facility] White blood cell (WBC) count Ordered By: Laverne Lea on 11-12-2024 WBC (Bld) [#/Vol] 9.6 10*3/uL 4.4-11.0 [facility] Absolute neutrophil countOrd ered By: Laverne Lea on 10-15-2024 Neutrophils (Bld) [#/Vol] 2.4 10*3/uL 2.0-7.7 [facility] Basophil percentageOrdered B y: Laverne Lea on 10-15-2024 Basophils/100 WBC (Bld) 0.6 % 0-1 [facility] Blood urea nitrogen (BUN)/cr eatinine ratioOrdered By: Laverne Lea on 10-15-2024 Urea nitrogen/Creatinine [Mass ratio] 15.0 mg/mg 10-20 [facility] Carbon dioxide measurementOr dered By: Laverne Lea on 10-15-2024 CO2 [Moles/Vol] 26.0 mmol/L 21.0-32.0 [facility] Chloride measurementOrdered By: Laverne Lea on 10-15-2024 Chloride [Moles/Vol] 109 mmol/L High 98-107 [facility] Eosinophil percentageOrdered By: Laverne Lea on 10-15-2024 Eosinophils/100 WBC (Bld) 1.9 % 0-5 [facility] Erythrocyte distribution wid th (RBC) [Ratio]Ordered By: Laverne Lea on 10-15-2024 Erythrocyte distribution width (RBC) [Entitic vol] 43.3 fL 35.1-43.9 [facility] Erythrocyte distribution wid th ratioOrdered By: Laverne Lea on 10-15-2024 Erythrocyte distribution width (RBC) [Ratio] 12.7 % 11.6-14.6 [facility] Estimated glomerular filtrat ion rate (GFR) AmericanOrdered By: Laverne Lea on 10-15-2024 Estimated GFR (MDRD) Amer 74 mL/min >60 [facility] Comment on above: GFR Calc Glomerular filtration rate ( GFR) estimationOrdered By: Laverne Lea on 10-15-2024 Estimated GFR (MDRD) Non-Af Amer 61 mL/min >60 [facility] Comment on above: Non- GFR Calc Glucose measurementOrdered B y: Laverne Lea on 10-15-2024 Glucose [Mass/Vol] 217 mg/dL High 74-106 [facility] Comment on above: Glucose result great er than or equal to 200 mg/dLsuggests DIABETES MELLITUS per A.D.A. criteria. Hematocrit Auto (Bld) [Volum e fraction]Ordered By: Laverne Lea on 10-15-2024 Hematocrit (Bld) [Volume fraction] 32.8 % Low 37-47 [facility] Hemoglobin measurementOrdere d By: Laverne Lea on 10-15-2024 Hemoglobin (Bld) [Mass/Vol] 11.0 g/dL Low 12.0-15.0 [facility] Immature granulocytes/100 WB C Auto (Bld)Ordered By: Laverne Lea on 10-15-2024 Immature granulocytes/100 WBC (Bld) 0.200 % 0.0-0.9 [facility] Comment on above: IG% - Immature Granu locytes (promyelocytes, myelocytes and metamyelocytes) > 1% indicates that a LEFT SHIFT is Present. Lymphocytes Auto (Unsp spec) [#/Vol]Ordered By: Laverne Lea on 10-15-2024 Lymphocytes (Bld) [#/Vol] 3.43 10*3/uL 0.83-4.51 [facility] Lymphocytes/100 WBC Auto (Un sp spec)Ordered By: Laverne Lea on 10-15-2024 Lymphocytes/100 WBC (Bld) 54.1 % High 19-41 [facility] MCV (mean corpuscular volume ) determinationOrdered By: Laverne Lea on 10-15-2024 MCV (RBC) [Entitic vol] 93.4 fL 81-99 [facility] Mean corpuscular hemoglobin (MCH) determinationOrdered By: Laverne Lea on 10-15-2024 MCH (RBC) [Entitic mass] 31.3 pg 27.0-32.0 [facility] Mean corpuscular hemoglobin concentration (MCHC) determinationOrdered By: Laverne Lea on 10-15-2024 MCHC (RBC) [Mass/Vol] 33.5 g/dL 32-36 [facility] Mean platelet volume determi nationOrdered By: Laverne Lea on 10-15-2024 Platelet mean volume (Bld) [Entitic vol] 10.0 fL 6.2-12.0 [facility] Monocyte percentageOrdered B y: Laverne Lea on 10-15-2024 Monocytes/100 WBC (Bld) 6.2 % 0-10 [facility] Neutrophil percentageOrdered By: Laverne Lea on 10-15-2024 Neutrophils/100 WBC (Bld) 37.0 % Low 47-70 [facility] Nucleated red blood cell per centageOrdered By: Laverne Lea on 10-15-2024 Nucleated RBC/100 WBC (Bld) [Ratio] 0 % 0-5 [facility] Platelet countOrdered By: Leonora Lea on 10-15-2024 Platelets (Bld) [#/Vol] 246 10*3/uL 150-450 [facility] Potassium measurementOrdered By: Laverne Lea on 10-15-2024 Potassium [Moles/Vol] 4.1 mmol/L 3.5-5.1 [facility] RBC Auto (Bld) [#/Vol]Ordere d By: Laverne Lea on 10-15-2024 RBC (Bld) [#/Vol] 3.51 10*6/uL Low 4.2-5.4 [facility] Serum anion gap measurementO rdered By: Laverne Lea on 10-15-2024 Anion gap [Moles/Vol] 4 mmol/L Low 5-15 [facility] Serum or plasma calcium inga urement (mass/volume)Ordered By: Laverne Lea on 10-15-2024 Calcium [Mass/Vol] 9.0 mg/dL 8.5-10.1 [facility] Serum or plasma creatinine m easurement (mass/volume)Ordered By: Laverne Lea on 10-15-2024 Creatinine [Mass/Vol] 0.94 mg/dL 0.55-1.02 [facility] Comment on above: The validity of the calculated GFR & GFRAA in patients over 70 years has not been determined. Clinical correlation is essential. Serum or plasma urea nitroge n measurement (mass/volume)Ordered By: Laverne Lea on 10-15-2024 Urea nitrogen [Mass/Vol] 14 mg/dL 7-18 [facility] Sodium levelOrdered By: Antonette Lea on 10-15-2024 Sodium [Moles/Vol] 139 mmol/L 136-145 [facility] White blood cell (WBC) count Ordered By: Laverne Lea on 10-15-2024 WBC (Bld) [#/Vol] 6.3 10*3/uL 4.4-11.0 [facility] TSH QnOrdered By: Laverne Lea on 10-01-2024 Thyroid Stimulating Hormone (TSH) 2.360 uIU/mL 0.358-3.740 [facility] Potassium measurementOrdered By: Laverne Lea on 09-13-2024 Potassium [Moles/Vol] 4.0 mmol/L 3.5-5.1 [facility] Absolute neutrophil countOrd ered By: Laverne Lea on 09-10-2024 Neutrophils (Bld) [#/Vol] 2.8 10*3/uL 2.0-7.7 [facility] Basophil percentageOrdered B y: Laverne Lea on 09-10-2024 Basophils/100 WBC (Bld) 0.8 % 0-1 [facility] Blood urea nitrogen (BUN)/cr eatinine ratioOrdered By: Laverne Lea on 09-10-2024 Urea nitrogen/Creatinine [Mass ratio] 11.3 mg/mg 10-20 [facility] Carbon dioxide measurementOr dered By: Laverne Lea on 09-10-2024 CO2 [Moles/Vol] 26.0 mmol/L 21.0-32.0 [facility] Chloride measurementOrdered By: Laverne Lea on 09-10-2024 Chloride [Moles/Vol] 108 mmol/L High 98-107 [facility] Eosinophil percentageOrdered By: Laverne Lea on 09-10-2024 Eosinophils/100 WBC (Bld) 1.4 % 0-5 [facility] Erythrocyte distribution wid th (RBC) [Ratio]Ordered By: Laverne Lea on 09-10-2024 Erythrocyte distribution width (RBC) [Entitic vol] 43.9 fL 35.1-43.9 [facility] Erythrocyte distribution wid th ratioOrdered By: Laverne Lea on 09-10-2024 Erythrocyte distribution width (RBC) [Ratio] 13.0 % 11.6-14.6 [facility] Estimated glomerular filtrat ion rate (GFR) AmericanOrdered By: Laverne Lea on 09-10-2024 Estimated GFR (MDRD) Amer 70 mL/min >60 [facility] Comment on above: GFR Calc Glomerular filtration rate ( GFR) estimationOrdered By: Laverne Lea on 09-10-2024 Estimated GFR (MDRD) Non-Af Amer 58 mL/min Low >60 [facility] Comment on above: Non- GFR Calc Glucose measurementOrdered B y: Laverne Lea on 09-10-2024 Glucose [Mass/Vol] 210 mg/dL High 74-106 [facility] Comment on above: Glucose result great er than or equal to 200 mg/dLsuggests DIABETES MELLITUS per A.D.A. criteria. Hematocrit Auto (Bld) [Volum e fraction]Ordered By: Laverne Lea on 09-10-2024 Hematocrit (Bld) [Volume fraction] 37.5 % 37-47 [facility] Hemoglobin measurementOrdere d By: Laverne Lea on 09-10-2024 Hemoglobin (Bld) [Mass/Vol] 12.4 g/dL 12.0-15.0 [facility] Immature granulocytes/100 WB C Auto (Bld)Ordered By: Laverne Lea on 09-10-2024 Immature granulocytes/100 WBC (Bld) 0.100 % 0.0-0.9 [facility] Comment on above: IG% - Immature Granu locytes (promyelocytes, myelocytes and metamyelocytes) > 1% indicates that a LEFT SHIFT is Present. Lymphocytes Auto (Unsp spec) [#/Vol]Ordered By: Laverne Lea on 09-10-2024 Lymphocytes (Bld) [#/Vol] 4.45 10*3/uL 0.83-4.51 [facility] Lymphocytes/100 WBC Auto (Un sp spec)Ordered By: Laverne Lea on 09-10-2024 Lymphocytes/100 WBC (Bld) 56.8 % High 19-41 [facility] MCV (mean corpuscular volume ) determinationOrdered By: Laverne Lea on 09-10-2024 MCV (RBC) [Entitic vol] 91.5 fL 81-99 [facility] Mean corpuscular hemoglobin (MCH) determinationOrdered By: Laverne Lea on 09-10-2024 MCH (RBC) [Entitic mass] 30.2 pg 27.0-32.0 [facility] Mean corpuscular hemoglobin concentration (MCHC) determinationOrdered By: Antonetteseatonvillenate Lea on 09-10-2024 MCHC (RBC) [Mass/Vol] 33.1 g/dL 32-36 [facility] Mean platelet volume determi nationOrdered By: Laverne Lea on 09-10-2024 Platelet mean volume (Bld) [Entitic vol] 10.1 fL 6.2-12.0 [facility] Monocyte percentageOrdered B y: Laverne Lea on 09-10-2024 Monocytes/100 WBC (Bld) 4.7 % 0-10 [facility] Neutrophil percentageOrdered By: Laverne Lea on 09-10-2024 Neutrophils/100 WBC (Bld) 36.2 % Low 47-70 [facility] Nucleated red blood cell per centageOrdered By: Laverne Lea on 09-10-2024 Nucleated RBC/100 WBC (Bld) [Ratio] 0 % 0-5 [facility] Platelet countOrdered By: Leonora katienate Moraleznetoayo on 09-10-2024 Platelets (Bld) [#/Vol] 283 10*3/uL 150-450 [facility] Potassium measurementOrdered By: Laverne Moraleznetoayo on 09-10-2024 Potassium [Moles/Vol] 3.4 mmol/L Low 3.5-5.1 [facility] RBC Auto (Bld) [#/Vol]Ordere d By: Laverne Moraleznetoayo on 09-10-2024 RBC (Bld) [#/Vol] 4.10 10*6/uL Low 4.2-5.4 [facility] Serum anion gap measurementO rdered By: Laverne Moraleznetoayo on 09-10-2024 Anion gap [Moles/Vol] 6 mmol/L 5-15 [facility] Serum or plasma calcium inga urement (mass/volume)Ordered By: Laverne Lea on 09-10-2024 Calcium [Mass/Vol] 9.4 mg/dL 8.5-10.1 [facility] Serum or plasma creatinine m easurement (mass/volume)Ordered By: Laverne Lea on 09-10-2024 Creatinine [Mass/Vol] 0.98 mg/dL 0.55-1.02 [facility] Comment on above: The validity of the calculated GFR & GFRAA in patients over 70 years has not been determined. Clinical correlation is essential. Serum or plasma urea nitroge n measurement (mass/volume)Ordered By: Laverne Lea on 09-10-2024 Urea nitrogen [Mass/Vol] 11 mg/dL 7-18 [facility] Sodium levelOrdered By: Antonette ernesto Kirtnetoayo on 09-10-2024 Sodium [Moles/Vol] 140 mmol/L 136-145 [facility] White blood cell (WBC) count Ordered By: Laverne Moraleznetoayo on 09-10-2024 WBC (Bld) [#/Vol] 7.8 10*3/uL 4.4-11.0 [facility] ERCP Reporton 07-23-2024 ERCP Report [facility] Medical Records Department [address] [place] [address] ERCP Report MR#: [id number] Acct: [id number] Name: LUIZA GALO Rep #: [id number] : 1940 83 From: Doe Orr DO PCP: Dr. Rosalind Rubalcava MD Status:DEP [facility] Patient Name: Luiza Galo Procedure Date: 07/19/2024 11:17 AM Date of : 1940 Age: 83 Procedure: ERCP Indications: Bile duct stone(s), Stent removal Providers: Doe Orr DO Medicines: Monitored Anesthesia Care Patient Profile: This is an 83 year old female. Refer to note in patient chart for documentation of history and physical. Patient has symptoms of acute right upper quadrant abdominal pain, chronic dyspepsia and acute jaundice. Complications: No immediate complications. Procedure: Pre-Anesthesia Assessment: - Prior to the procedure, a History and Physical was performed, and patient medications and allergies were reviewed. The patient is competent. The risks and benefits of the procedure and the sedation options and risks were discussed with the patient. All questions were answered and informed consent was obtained. Patient identification and proposed procedure were verified by the physician in the pre-procedure area. Mental Status Examination: alert and oriented. Airway Examination: normal oropharyngeal airway and neck mobility. Respiratory Examination: clear to auscultation. CV Examination: normal. Prophylactic Antibiotics: The patient does not require prophylactic antibiotics. Prior Anticoagulants: The patient has taken no anticoagulant or antiplatelet agents. ASA Grade Assessment: II - A patient with mild systemic disease. After reviewing the risks and benefits, the patient was deemed in satisfactory condition to undergo the procedure. The anesthesia plan was to use monitored anesthesia care (MAC). Immediately prior to administration of medications, the patient was re-assessed for adequacy to receive sedatives. The heart rate, respiratory rate, oxygen saturations, blood pressure, adequacy of pulmonary ventilation, and response to care were monitored throughout the procedure. The physical status of the patient was re-assessed after the procedure. After obtaining informed consent, the scope was passed under direct vision. Throughout the procedure, the patient's blood pressure, pulse, and oxygen saturations were monitored continuously. The Duodenoscope was introduced through the mouth, and advanced to the duodenum and used to inject contrast into the bile duct and ventral pancreatic duct. The ERCP was accomplished without difficulty. The patient tolerated the procedure well. Scope In: 11:53:55 AM Scope Out: 12:06:11 PM Total Procedure Duration Time 0 hours 12 minutes 16 seconds Findings: The sand carrier film was normal. The esophagus was successfully intubated under direct vision. The scope was advanced to a normal major papilla in the descending duodenum without detailed examination of the pharynx, larynx and associated structures, and upper GI tract. The upper GI tract was grossly normal. The bile duct was deeply cannulated with the short-nosed traction sphincterotome. Contrast was injected. I personally interpreted the bile duct images. There was brisk flow of contrast through the ducts. Image quality was adequate. Contrast extended to the entire biliary tree. Opacification of the entire biliary tree except for the cystic duct and gallbladder, entire biliary tree except for the gallbladder and entire biliary tree was successful. The maximum diameter of the ducts was 10 mm. The lower third of the main bile duct contained one stone, which was 6 mm in diameter. The entire biliary tree except for the gallbladder and entire biliary tree were diffusely dilated, with a stone causing an obstruction. The largest diameter was 12 mm. A long 0.025 inch Jagwire was passed into the biliary tree. A 5 mm biliary sphincterotomy was made with a traction (standard) sphincterotome using ERBE electrocautery. There was no post-sphincterotomy bleeding. The biliary tree was swept with a 12 mm balloon starting at the bifurcation. Sludge was swept from the duct. All stones were removed. One stent was removed from the biliary tree using a snare and sent for cytology. The stent was found to be occluded via the water column test. Impression: - The entire biliary tree was dilated, with a stone causing an obstruction. - Choledocholithiasis was found. Complete removal was accomplished by biliary sphincterotomy and balloon extraction. - A biliary sphincterotomy was performed. - The biliary tree was swept. - One stent was removed from the biliary tree. Procedure Code(s): --- Professional --- 38328, Endoscopic retrograde cholangiopancreatograph y (ERCP); with removal of foreign body(s) or stent(s) from biliary/singh (more content not included)... Normal [facility] Bedside Glucoseon 07-19-2024 FINGERSTICK GLU 140 mg/dL High 74-106 [facility] Comment on above: Result Comment: TRAE NONA OF PATIENT CARE PER NURSING PROTOCOL Performed By: #### L 501.080 #### [facility] Laboratory [address] [place], [address] ERCP Biliary/Pancreason 07-03 ERCP Biliary/Pancreas [facility] Imaging Services [address] [place] [address] ERCP Biliary/Pancreas MR#: [id number] Acct: [id number] Name: LUIZA GALO Rep #: [id number] : 1940 F 83 From: Jose Hatfield PCP: Dr. Rosalind Rubalcava MD Status: [facility] Study: ERCP Biliary/Pancreas Date of Exam: 07/19/24 Exam# [id number] Ordering Dr: [place] [id number] EXAM: INTRAOPERATIVE CHOLANGIOGRAM FLUOROSCOPY TIME: 153.8 seconds RADIATION DOSE: 37.47 mGy TOTAL NUMBER OF IMAGES: 1 COMPARISON: None. PROVIDED CLINICAL HISTORY: STONES PAIN TECHNIQUE: The examination was performed with physician in attendance. Under fluoroscopic observation, fluoroscopic images were obtained in the operating room. FINDINGS: First image demonstrates surgical instruments overlying the [id number]-gl-cohw. Contrast is identified in a cannulated common bile duct. Retrograde contrast is notseen in the pancreatic duct. Contrast is noted in the proximal duodenum. Contrast is seen in the intrahepatic ducts. Stent removal RAD/ERCP Biliary/Pancreas IMPRESSION: Fluoroscopic assistance images were obtained. Pertinent findings noted above. Electronically Signed: Jose Queen MD at 15:37 EDT , CC: Dr. Rosalind Rubalcava MD; Doe Orr DO Loan Interviewer: Signed Normal [facility] MR/POSTOP.ANEon 07-19-2024 MR/POSTOP.[facility] Medical Records Department [address] [place] [address] Anesthesia Postop Eval I 07/19/24 1219 MR#: [id number] Acct: [id number] Name: LUIZA GALO Rep #: [id number] : 1940 83 From: Omid Adams PCP: Dr. Rosalind Rubalcava MD Status:REG [facility] Y Race: C Location: [place] [address] Anesthesia: Postop Eval I Current Vital Signs Temperature: 97.8 F Pulse Rate: 94 Blood Pressure: 108/67 Respiratory Rate: 18 Pulse Ox: 95 Oxygen Delivery Method: Room Air Assessment Airway patent: Yes Spontaneous unlabored respirations: Yes Mental status: Awake nausea: No Vomiting: No Anesthesia Complication: No Fluid Hydration Crystalloid volume administer (ml): 120 Total IV fluid infused: 120 Progress Note Anesthesia document: Postop Eval 1 completed: Yes 07/19/24 1220 Date Omid Tabares Signature: Date CC: Signed Normal [facility] MR/[id number] 07-19-2024 [facility] Medical Records Department [address] [place] [address] Anesthesia Postop Eval II 07/19/24 1225 MR#: [id number] Acct: [id number] Name: LUIZA GALO Rep #: [id number] : 1940 83 From: Cirilo Galeas MD PCP: Dr. Rosalind Rubalcava MD Status:REG [facility] Y Race: C Location: [place] [address] Anesthesia Postop Eval I Sum Postop Eval Completion status Anesthesia document: Postop Eval 1 completed: Yes Anesthesia Postop Eval I Summary Anesthesia Postop Eval I Summary: Anesthesia Postop Eval I: Assessment Summary Airway patent Yes 07/19/24 12:20 [email or web address] Spontaneous unlabored Yes 07/19/24 12:20 [email or web address] respirations Mental status Awake 07/19/24 12:20 [email or web address] nausea No 07/19/24 12:20 [email or web address] Vomiting No 07/19/24 12:20 [email or web address] Anesthesia Postop Eval I: Fluid Summary Crystalloid volume administer 120 07/19/24 12:20 [email or web address] (ml) Colloids volume administered ( ml) Blood Product volume administered (ml) Total IV fluid infused 120 07/19/24 12:20 [email or web address] Anesthesia Postop Eval I: Summary Notes Anesthesia Complication No 07/19/24 12:20 [email or web address] Anesthesia Complication Comment: Post-operative progress note Anesthesia: Postop Eval II Evaluation Mental status: Awake Pain Level: 0 nausea: No Vomiting: No 07/19/24 1226 Date Cirilo Galeas MD Cosigner Signature: Date CC: Signed Normal [facility] Special Stain Group IIon Special Stain Group II ------ Patient Age/Sex Location Account Attending Physician LUIZA GALO 83/F EN [id number] Doe Orr DO Specimen: [id number] Received: 07/19/24 Status: EMANUEL Pastrana Num: [id number] Spec Type: Fluid Subm Dr: Doe Orr DO HEADTRESSA OPERATION: ERCP with stent removal, balloon dilation PRE-OP DIAGNOSIS: Abdominal pain TISSUE SUBMITTED: Biliary stent for cytology DIAGNOSIS CYTOLOGY Biliary stent fluid for cytology (cytospin and cellblock); Negative for malignant cells. See comment. JESSICA. 07/20/2024 COMMENT Clinical correlation and appropriate follow up are necessary. CYTOLOGY STUDY Slides are reviewed. CYTOLOGY GROSS Received is one black stent, 8cm with 2 ml of brownish-yellow material labeled with the patient's name and and designated per the requisition as Biliary stent. Submitted for cytology preparation including cell block. Mr 07/19/2024 TC:5 CPT: 02369,26094 Signed (signature on file) Dr. Rangel Bell MD 07/20/24 1232 Normal [facility] Comment on above: Performed By: #### L 500.3400, L100.0100, L501.4020, L501.2450, L500.2500 #### [facility] [address] [place], [address] .Auto Diffon 05-23-2024 Basophil, Absolute 0.0 10 3/mcL Normal 0.0-0.2 [facility] ([place]) Comment on above: Performed By: #### C BC, GFR, A1C, ADIFF, CRP, TSH, CMP, ANEU, ESR #### [address] [address] Basophils/100 WBC (Bld) 0.5 % Normal 0.0-2.5 A [facility] ([place]) Comment on above: Performed By: #### C BC, GFR, A1C, ADIFF, CRP, TSH, CMP, ANEU, ESR #### [address] [address] Eosinophil, Absolute 0.2 10 3/mcL Normal 0.0-0.4 [facility] ([place]) Comment on above: Performed By: #### C BC, GFR, A1C, ADIFF, CRP, TSH, CMP, ANEU, ESR #### [address] [address] Eosinophils/100 WBC (Bld) 2.1 % Normal 0.0-7.0 [facility] ([place]) Comment on above: Performed By: #### C BC, GFR, A1C, ADIFF, CRP, TSH, CMP, ANEU, ESR #### [address] [address] Lymphocyte, Absolute 3.3 10 3/mcL Normal 0.8-3.9 [facility] ([place]) Comment on above: Performed By: #### C BC, GFR, A1C, ADIFF, CRP, TSH, CMP, ANEU, ESR #### [address] [address] Lymphocytes/100 WBC (Bld) 35.3 % Normal 10.0-50.0 [facility] ([place]) Comment on above: Performed By: #### C BC, GFR, A1C, ADIFF, CRP, TSH, CMP, ANEU, ESR #### [address] [address] Monocyte, Absolute 0.5 10 3/mcL Normal 0.2-1.0 [facility] ([place]) Comment on above: Performed By: #### C BC, GFR, A1C, ADIFF, CRP, TSH, CMP, ANEU, ESR #### [address] [address] Monocytes/100 WBC (Bld) 5.4 % Normal 1.7-13.0 A [facility] ([place]) Comment on above: Performed By: #### C BC, GFR, A1C, ADIFF, CRP, TSH, CMP, ANEU, ESR #### [address] [address] Neutrophils/100 WBC (Bld) 56.7 % Normal 37.0-80.0 [facility] ([place]) Comment on above: Performed By: #### C BC, GFR, A1C, ADIFF, CRP, TSH, CMP, ANEU, ESR #### [address] [address] .GFRon 05-23-2024 GFR Non- 59 ml/min/1.73sqm Normal [facility] ([place]) Comment on above: Result Comment: GFR Population mean for , Non- Americans Ages 20-29 = 116 mL/min/1.73 sq.m. Ages 30-39 = 107 mL/min/1.73 sq.m. Ages 40-49 = 99 mL/min/1.73 sq.m. Ages 50-59 = 93 mL/min/1.73 sq.m. Ages 60-69 = 85 mL/min/1.73 sq.m. Ages 70+ = 75 mL/min/1.73 sq.m. Chronic Kidney Disease: Less than 60 mL/min/1.73 square meters End Stage Renal Disease: Less than 15 mL/min/1.73 square meters Performed By: #### C BC, GFR, A1C, ADIFF, CRP, TSH, CMP, ANEU, ESR #### [address] [address] GFR 71 ml/min/1.73sqm Normal [facility] ([place]) Comment on above: Result Comment: GFR Population mean for , Non- Americans Ages 20-29 = 116 mL/min/1.73 sq.m. Ages 30-39 = 107 mL/min/1.73 sq.m. Ages 40-49 = 99 mL/min/1.73 sq.m. Ages 50-59 = 93 mL/min/1.73 sq.m. Ages 60-69 = 85 mL/min/1.73 sq.m. Ages 70+ = 75 mL/min/1.73 sq.m. Chronic Kidney Disease: Less than 60 mL/min/1.73 square meters End Stage Renal Disease: Less than 15 mL/min/1.73 square meters Performed By: #### C BC, GFR, A1C, ADIFF, CRP, TSH, CMP, ANEU, ESR #### [address] [address] .NEUABSon 05-23-2024 Neutrophil, Absolute 5.3 10 3/mcL Normal 2.9-6.2 [facility] ([place]) Comment on above: Performed By: #### C BC, GFR, A1C, ADIFF, CRP, TSH, CMP, ANEU, ESR #### [address] [address] A1Con 05-23-2024 Glucose [Mass/Vol] 157 mg/dL Normal [facility] ([place]) Comment on above: Result Comment: Jessica mated Average Glucose calculated by equation ((28.7xA1C)-46.7) Estimated average glucose (eAG) is a calculated value from Hemoglobin A1C and is shipping services sales representative of the average blood glucose level in the last 2-3 month period. Normal range: less than 114 mg/dL Performed By: #### C BC, GFR, A1C, ADIFF, CRP, TSH, CMP, ANEU, ESR #### [address] [address] HbA1c (Bld) [Mass fraction] 7.1 % High 4.3-6.4 [facility] ([place]) Comment on above: Performed By: #### C BC, GFR, A1C, ADIFF, CRP, TSH, CMP, ANEU, ESR #### [address] [address] CBCon 05-23-2024 Erythrocyte distribution width (RBC) [Ratio] 13.7 % Normal 11.5-14.5 [facility] ([place]) Comment on above: Performed By: #### C BC, GFR, A1C, ADIFF, CRP, TSH, CMP, ANEU, ESR #### [place] [id number] Hematocrit (Bld) [Volume fraction] 36.6 % Low 37.0-47.0 [facility] ([place]) Comment on above: Performed By: #### C BC, GFR, A1C, ADIFF, CRP, TSH, CMP, ANEU, ESR #### [place] [address] Hgb 12.6 G/dL Normal 12.0-16.0 [facility] ([place]) Comment on above: Performed By: #### C BC, GFR, A1C, ADIFF, CRP, TSH, CMP, ANEU, ESR #### [address] [address] MCH (RBC) [Entitic mass] 30.6 pg Normal 27.0-31.2 [facility] ([place]) Comment on above: Performed By: #### C BC, GFR, A1C, ADIFF, CRP, TSH, CMP, ANEU, ESR #### [place] [address] MCHC 34.3 G/dL Normal 33.0-37.0 [facility] ([place]) Comment on above: Performed By: #### C BC, GFR, A1C, ADIFF, CRP, TSH, CMP, ANEU, ESR #### [place] [id number] MCV (RBC) [Entitic vol] 89.3 fL Normal 80.0-94.0 A [facility] ([place]) Comment on above: Performed By: #### C BC, GFR, A1C, ADIFF, CRP, TSH, CMP, ANEU, ESR #### [address] [address] Platelet 276 10 3/mcL Normal 130-400 [facility] ([place]) Comment on above: Performed By: #### C BC, GFR, A1C, ADIFF, CRP, TSH, CMP, ANEU, ESR #### [address] [address] Platelet mean volume (Bld) [Entitic vol] 8.3 fL Normal 7.4-10.4 [facility] ([place]) Comment on above: Performed By: #### C BC, GFR, A1C, ADIFF, CRP, TSH, CMP, ANEU, ESR #### [address] [address] RBC 4.10 10 6/mcL Low 4.20-5.40 [facility] [facility] ([place]) Comment on above: Performed By: #### C BC, GFR, A1C, ADIFF, CRP, TSH, CMP, ANEU, ESR #### [address] [address] WBC 9.4 10 3/mcL Normal 4.6-10.8 [facility] ([place]) Comment on above: Performed By: #### C BC, GFR, A1C, ADIFF, CRP, TSH, CMP, ANEU, ESR #### [address] [address] CMPon 05-23-2024 Albumin Level 3.3 G/dL Low 3.4-4.8 [facility] ([place]) Comment on above: Performed By: #### C BC, GFR, A1C, ADIFF, CRP, TSH, CMP, ANEU, ESR #### [address] [address] Albumin/Globulin [Mass ratio] 0.9 {ratio} Low 1.1-2.5 [facility] ([place]) Comment on above: Performed By: #### C BC, GFR, A1C, ADIFF, CRP, TSH, CMP, ANEU, ESR #### [address] [address] ALP [Catalytic activity/Vol] 115 U/L Normal 40-135 [facility] ([place]) Comment on above: Performed By: #### C BC, GFR, A1C, ADIFF, CRP, TSH, CMP, ANEU, ESR #### [address] [address] ALT [Catalytic activity/Vol] 35 U/L Normal 14-59 [facility] ([place]) Comment on above: Performed By: #### C BC, GFR, A1C, ADIFF, CRP, TSH, CMP, ANEU, ESR #### [address] [address] AST [Catalytic activity/Vol] 42 U/L High 10-40 [facility] ([place]) Comment on above: Performed By: #### C BC, GFR, A1C, ADIFF, CRP, TSH, CMP, ANEU, ESR #### [address] [address] Bili Total 0.4 mg/dL Normal 0.2-1.0 [facility] ([place]) Comment on above: Result Comment: Use of this assay is not recommended for patients undergoing treatment with eltrombopag due to the potential for falsely elevated results. Performed By: #### C BC, GFR, A1C, ADIFF, CRP, TSH, CMP, ANEU, ESR #### [address] [address] BUN/Creatinine Ratio 12 ratio Normal 7-27 [facility] ([place]) Comment on above: Performed By: #### C BC, GFR, A1C, ADIFF, CRP, TSH, CMP, ANEU, ESR #### [address] [address] Calcium [Mass/Vol] 10.1 mg/dL Normal 8.4-10.2 [facility] ([place]) Comment on above: Performed By: #### C BC, GFR, A1C, ADIFF, CRP, TSH, CMP, ANEU, ESR #### [address] [address] Chloride [Moles/Vol] 103 mmol/L Normal 98-107 [facility] ([place]) Comment on above: Performed By: #### C BC, GFR, A1C, ADIFF, CRP, TSH, CMP, ANEU, ESR #### [address] [address] CO2 [Moles/Vol] 29 mmol/L Normal 23-31 [facility] ([place]) Comment on above: Performed By: #### C BC, GFR, A1C, ADIFF, CRP, TSH, CMP, ANEU, ESR #### [address] [address] Creatinine [Mass/Vol] 0.92 mg/dL Normal 0.55-1.02 [facility] ([place]) Comment on above: Performed By: #### C BC, GFR, A1C, ADIFF, CRP, TSH, CMP, ANEU, ESR #### [address] [address] Electrolyte Balance 9.0 mEq/L Normal 4.0-15.0 [facility] ([place]) Comment on above: Performed By: #### C BC, GFR, A1C, ADIFF, CRP, TSH, CMP, ANEU, ESR #### [address] [address] Globulin 3.7 G/dL Normal [facility] ([place]) Comment on above: Performed By: #### C BC, GFR, A1C, ADIFF, CRP, TSH, CMP, ANEU, ESR #### [address] [address] Glucose [Mass/Vol] 129 mg/dL High 83-110 [facility] ([place]) Comment on above: Performed By: #### C BC, GFR, A1C, ADIFF, CRP, TSH, CMP, ANEU, ESR #### [address] [address] Potassium [Moles/Vol] 3.7 mmol/L Normal 3.5-5.1 [facility] ([place]) Comment on above: Performed By: #### C BC, GFR, A1C, ADIFF, CRP, TSH, CMP, ANEU, ESR #### [address] [address] Sodium [Moles/Vol] 141 mmol/L Normal 136-145 [facility] ([place]) Comment on above: Performed By: #### C BC, GFR, A1C, ADIFF, CRP, TSH, CMP, ANEU, ESR #### [place] [address] Total Protein 7.0 G/dL Normal 6.4-8.2 [facility] ([place]) Comment on above: Performed By: #### C BC, GFR, A1C, ADIFF, CRP, TSH, CMP, ANEU, ESR #### [place] [address] Urea nitrogen [Mass/Vol] 11 mg/dL Normal 7-18 [facility] ([place]) Comment on above: Performed By: #### C BC, GFR, A1C, ADIFF, CRP, TSH, CMP, ANEU, ESR #### [address] [address] CRPon 05-23-2024 C-Reactive Protein 0.2 mg/dL Normal 0.0-0.3 [facility] ([place]) Comment on above: Performed By: #### C BC, GFR, A1C, ADIFF, CRP, TSH, CMP, ANEU, ESR #### [place] [address] ESRon 05-23-2024 Erythrocyte Sed Rate 15 mm/hr Normal 0-30 [facility] ([place]) Comment on above: Performed By: #### C BC, GFR, A1C, ADIFF, CRP, TSH, CMP, ANEU, ESR #### [place] [address] LABORATORYOrdered By: SYSTEM SYSTEM on 05-23-2024 Albumin BCP dye [Mass/Vol] 3.3 G/dL Low 3.4 - 4.8 G/dL AO ADM SS Albumin/Globulin [Mass ratio] 0.9 {ratio} Low 1.1 - 2.5 ratio AO ADM SS ALP [Catalytic activity/Vol] 115 U/L Normal 40 - 135 U/L AO ADM SS ALT With P-5'-P [Catalytic activity/Vol] 35 U/L Normal 14 - 59 U/L AO ADM SS AST With P-5'-P [Catalytic activity/Vol] 42 U/L High 10 - 40 U/L AO ADM SS Basophil, Absolute 0.0 103/mcL Normal 0.0 - 0.2 10^3/mcL AO Workflow SS Basophils/100 WBC (Bld) 0.5 % Normal 0.0 - 2.5 % AO Workflow SS Bilirubin [Mass/Vol] 0.4 mg/dL Normal 0.2 - 1 .0 mg/dL AO ADM SS Comment on above: Interpretive Data: U se of this assay is not recommended for patients undergoing treatment with eltrombopag due to the potential for falsely elevated results. Calcium [Mass/Vol] 10.1 mg/dL Normal 8.4 - 10. 2 mg/dL AO ADM SS Chloride [Moles/Vol] 103 mmol/L Normal 98 - 10 7 mmol/L AO ADM SS CO2 [Moles/Vol] 29 mmol/L Normal 23 - 31 mmol/L AO ADM SS Creatinine [Mass/Vol] 0.92 mg/dL Normal 0.55 - 1.02 mg/dL AO ADM SS CRP [Mass/Vol] 0.2 mg/dL Normal 0.0 - 0.3 mg/dL AO ADM SS Electrolyte Balance 9.0 mEq/L Normal 4.0 - 15 .0 mEq/L AO ADM SS Eosinophil, Absolute 0.2 103/mcL Normal 0.0 - 0 .4 10^3/mcL AO Workflow SS Eosinophils/100 WBC (Bld) 2.1 % Normal 0.0 - 7.0 % AO Workflow SS Erythrocyte distribution width (RBC) [Ratio] 13.7 % Normal 11.5 - 14.5 % AO Workflow SS GFR/1.73 sq M.predicted among blacks MDRD (S/P/Bld) [Vol rate/Area] 71 ml/min/1.73sqm Invalid Interpretation Code AO Chemistry S Comment on above: Interpretive Data: GFR Population mean for , Non- Americans Ages 20-29 = 116 mL/min/1.73 sq.m. Ages 30-39 = 107 mL/min/1.73 sq.m. Ages 40-49 = 99 mL/min/1.73 sq.m. Ages 50-59 = 93 mL/min/1.73 sq.m. Ages 60-69 = 85 mL/min/1.73 sq.m. Ages 70+ = 75 mL/min/1.73 sq.m. Chronic Kidney Disease: Less than 60 mL/min/1.73 square meters End Stage Renal Disease: Less than 15 mL/min/1.73 square meters GFR/1.73 sq M.predicted among non-blacks MDRD (S/P/Bld) [Vol rate/Area] 59 ml/min/1.73sqm Invalid Interpretation Code AO Chemistry S Comment on above: Interpretive Data: GFR Population mean for , Non- Americans Ages 20-29 = 116 mL/min/1.73 sq.m. Ages 30-39 = 107 mL/min/1.73 sq.m. Ages 40-49 = 99 mL/min/1.73 sq.m. Ages 50-59 = 93 mL/min/1.73 sq.m. Ages 60-69 = 85 mL/min/1.73 sq.m. Ages 70+ = 75 mL/min/1.73 sq.m. Chronic Kidney Disease: Less than 60 mL/min/1.73 square meters End Stage Renal Disease: Less than 15 mL/min/1.73 square meters Globulin 3.7 G/dL Invalid Interpretation Code AO ADM SS Glucose [Mass/Vol] 129 mg/dL High 83 - 110 mg/dL AO ADM SS Glucose [Mass/Vol] 157 mg/dL Invalid Interpretation Code AO Chemistry S Comment on above: Interpretive Data: E stimated average glucose (eAG) is a calculated value from Hemoglobin A1C and is shipping services sales representative of the average blood glucose level in the last 2-3 month period. Normal range: less than 114 mg/dL HbA1c (Bld) [Mass fraction] 7.1 % High 4.3 - 6.4 % AO ADM SS Hematocrit (Bld) [Volume fraction] 36.6 % Low 37.0 - 47.0 % AO Workflow SS Hemoglobin (Bld) [Mass/Vol] 12.6 G/dL Normal 12.0 - 16.0 G/dL AO Workflow SS Lymphocyte, Absolute 3.3 103/mcL Normal 0.8 - 3 .9 10^3/mcL AO Workflow SS Lymphocytes/100 WBC (Bld) 35.3 % Normal 10.0 - 50.0 % AO Workflow SS MCH (RBC) [Entitic mass] 30.6 pg Normal 27.0 - 31.2 pg AO Workflow SS MCHC 34.3 G/dL Normal 33.0 - 37.0 G/dL AO Workflow SS MCV (RBC) [Entitic vol] 89.3 fL Normal 80.0 - 94.0 fL AO Workflow SS Monocyte, Absolute 0.5 103/mcL Normal 0.2 - 1.0 10^3/mcL AO Workflow SS Monocytes/100 WBC (Bld) 5.4 % Normal 1.7 - 13.0 % AO Workflow SS Neutrophil, Absolute 5.3 103/mcL Normal 2.9 - 6 .2 10^3/mcL AO Workflow SS Neutrophils/100 WBC (Bld) 56.7 % Normal 37.0 - 80.0 % AO Workflow SS Platelet mean volume (Bld) [Entitic vol] 8.3 fL Normal 7.4 - 10.4 fL AO Workflow SS Platelets (Bld) [#/Vol] 276 103/mcL Normal 130 - 400 10^3/mcL AO Workflow SS Potassium [Moles/Vol] 3.7 mmol/L Normal 3.5 - 5.1 mmol/L AO ADM SS Protein [Mass/Vol] 7.0 G/dL Normal 6.4 - 8.2 G/dL AO ADM SS RBC (Bld) [#/Vol] 4.10 106/mcL Low 4.20 - 5.4 0 10^6/mcL AO Workflow SS Sodium [Moles/Vol] 141 mmol/L Normal 136 - 145 mmol/L AO ADM SS TSH Qn 1.98 m[IU]/L Normal 0.36 - 3.74 mcIU/mL AO ADM SS Urea nitrogen [Mass/Vol] 11 mg/dL Normal 7 - 18 mg/dL AO ADM SS Urea nitrogen/Creatinine [Mass ratio] 12 ratio Normal 7 - 27 ratio AO ADM SS WBC (Bld) [#/Vol] 9.4 103/mcL Normal 4.6 - 10.8 10^3/mcL AO Workflow SS LABORATORYOrdered By: Fuentes Galvan on 05-23-2024 ESR Photometric method (Bld) [Velocity] 15 mm/hr Normal 0 - 30 mm/hr AO Man Heme SS TSHon 05-23-2024 TSH Qn 1.98 m[IU]/L Normal 0.36-3.74 [facility] ([place]) Comment on above: Performed By: #### C BC, GFR, A1C, ADIFF, CRP, TSH, CMP, ANEU, ESR #### Jonn Coeym[address] [place], [place] [address] Gastroenterology Visit Repor ton 04-25-2024 Gastroenterology Visit Report [facility] Gastroenterology [address] [place] [address] OFFICE VISIT Date of Service: 04/25/24 MR#: [id number] Acct: [id number] Name: LUIZA GALO Rep #: [id number] : 1940 Provider: Doe Orr DO Age/Sex: 83/F Location: [facility] Status: Signed Intake Vital Signs 10/24/23 11:00 04/19/24 16:02 Height 5 ft 2 in 5 ft Intake Visit Reasons: 6 M FU Allergies Anesthetics - Amide Type - Select A Allergy (Verified 04/19/24 16:02) NEEDS FOLLOW-UP Anesthetics - Tyra Type- Parabens Allergy (Verified 04/19/24 16:02) NEEDS FOLLOW-UP latex Allergy (Verified 04/19/24 16:02) Unknown promethazine (From Phenergan) Allergy (Verified 04/19/24 16:02) PT UNSURE OF REACTION sitagliptin phosphate (From Januvia) Allergy (Verified 04/19/24 16:02) Unknown insulin isophane (NPH) Adverse Reaction (Severe, Verified 04/19/24 16:02) heart burn insulin degludec (From Xultophy 100/3.6) Adverse Reaction (Mild, Verified 04/19/24 16:02) Nausea liraglutide (From Xultophy 100/3.6) Adverse Reaction (Mild, Verified 04/19/24 16:02) Nausea atorvastatin (From Lipitor) Adverse Reaction (Unknown, Verified 04/19/24 16:02) Unknown codeine Adverse Reaction (Unknown, Verified 04/19/24 16:02) Unknown tizanidine Adverse Reaction (Unknown, Verified 04/19/24 16:02) Unknown Have you fallen in the past year?: Yes [facility] Medical History (Updated 04/25/24 @ 16:[address] Azar Friend, DO) Ascending cholangitis Immunosuppression due to drug therapy Former tobacco use Anxiety and depression History of left heart catheterization (LHC) ( 01/20/21) Paroxysmal atrial fibrillation Essential hypertension Atherosclerosis of coronary artery of [place] heart without angina pectoris MCFP (current) use of anticoagulants Bradycardia Stroke Dysphagia Morbid obesity Osteoarthritis GERD (gastroesophageal reflux disease) Pulmonary embolism Hyperlipidemia MARIVEL (obstructive sleep apnea) Diabetes mellitus Surgical History (Updated 04/20/24 @ 08:51 by Carmelina Quezada RN) Hx of CABG History of bilateral cataract extraction History of knee surgery History of cholecystectomy History of total hysterectomy Family History Father CAD (coronary artery disease) Mother CAD (coronary artery disease) Brother CAD (coronary artery disease) Social History household members: none housing: assisted living facility Smoking Status: Former smoker how long ago did patient quit smokin years ago second hand exposure: Yes alcohol intake: never substance use type: does not use caffeine: No HPI HPI Details: LUIZA GALO, is a 83 F who presents to the office today for follow up. CT abd/pel with contrast 8.08.25 lung scarring; s/p CABG; coronary artery calcification; hepatic steatosis, with abnormal left lobe r/t intrahepatic biliary ductal dilation; s/ p cholecystectomy; colonic diverticulosis ERCP 8.08.25 choledocholithiasis, biliary sphincterotomy, balloon extraction; middle MBD dilated; temporary stent placed in CBD. No specimens. HIDA 8.09.24 without acute/chronic finding; no bile leak. abd/pelvis CT 7.24 1. Stool within the distal sigmoid colon and rectum which may represent developing fecal impaction. The remainder of the colon is fluid-filled which may represent incipient diarrhea. 2. Common bile duct stent with approximately 6.5 cm of the stent within the duodenum. OV 724 pt reports that overall she is feeling unwell. Pt reports symptoms of nausea, diarrhea, abdominal pain, excessive flatulence, HB, and difficulty swallowing. pt reports that she had a bowel blockage in early April and has been feeling unwell since. ROS Const Constitutional: Positive for fatigue, frequent falls, headache(s), weakness and weight change (weight gain and weight loss); No fever(s) ENT ENT: Positive for headache(s) and difficulty swallowing Gastro GI: Positive for abdominal pain, bloating, constipation, diarrhea, heartburn, difficulty swallowing, excessive flatus and nausea/dyspepsia; No belching, change in bowel habits, change in stool character, coffee ground emesis, cramping, feeling full early, incontinent of stools, Vomiting blood/hematemesis, Blood in stool, loose stools, Black,tarry stools, pain with swallowing, vomiting or other Musc Musculoskeletal: Positive for joint pain, back pain, joint swelling, numbness, stiffness, tingling, Arthritis and restless legs Skin Skin: No yellowing of the eye or itchy eyes Neuro Neurology: Positive for weakness, frequent falls, headache(s), numbness, tingling, restless legs and tremor(s) Psych Psychiatric: Positive for anxiety and Positive for depression Endo Endocrine: Positive for fatigue and we (more content not included)... Normal [facility] 12 Lead EKGon 04-19-2024 12 Lead EKG [facility] Cardiovascular Services [address] [place] [address] 12 Lead EKG 04/19/24 1612 MR#: [id number] Acct: [id number] Name: LUIZA GALO Rep #: [id number] : 1940 83 From: Pawan Reed MD Attending Dr: Status: DEP ER Ordering Dr: Enrrique Eric DO Date: 04/19/24 Location: ED Sex: F C Admitted: Test Reason : CP Blood Pressure : / mmHG Vent. Rate : 067 BPM Atrial Rate : 067 BPM P-R Int : 208 ms QRS Dur : 088 ms QT Int : 432 ms P-R-T Axes : 074 074 083 degrees QTc Int : 456 ms Sinus rhythm with occasional Premature ventricular complexes Otherwise normal ECG Confirmed by PAWAN REED MD ([id number]), assistant editor NEERAJ JUAN ([id number]) on 04/23/2024 11:08:10 AM Referred By: Confirmed By:PAWAN REED MD 04/23/24 1102 Date Pawan Reed MD CC: Dr. Enrrique Eric DO; Dr. Rosalind Rubalcava MD Signed Normal [facility] Basic Metabolic Profile (BMP )on 04-19-2024 BUN/CRE 9.6 RATIO Low 10-20 [facility] Comment on above: Order Comment: 'TROP ' Serial specimen #1, #2 or #3: 1 Performed By: #### L 500.3400, L100.0100, L501.4020, L501.2450, L500.2500 #### [facility] [address] [place], [address] CA,Total 9.9 mg/dL Normal 8.5-10.1 [facility] Comment on above: Order Comment: 'TROP ' Serial specimen #1, #2 or #3: 1 Performed By: #### L 500.3400, L100.0100, L501.4020, L501.2450, L500.2500 #### [facility] [address] [place], [address] Chloride [Moles/Vol] 105 mmol/L Normal 98-107 [facility] Comment on above: Order Comment: 'TROP ' Serial specimen #1, #2 or #3: 1 Performed By: #### L 500.3400, L100.0100, L501.4020, L501.2450, L500.2500 #### [facility] [address] [place], [address] CO2 [Moles/Vol] 30.0 mmol/L Normal 21.0-32.0 [facility] Comment on above: Order Comment: 'TROP ' Serial specimen #1, #2 or #3: 1 Performed By: #### L 500.3400, L100.0100, L501.4020, L501.2450, L500.2500 #### [facility] [address] [place], [address] Creatinine [Mass/Vol] 0.84 mg/dL Normal 0.55-1.02 [facility] Comment on above: Order Comment: 'TROP ' Serial specimen #1, #2 or #3: 1 Result Comment: The validity of the calculated GFR GFRAA in patients over 70 years has not been determined. Clinical correlation is essential. Performed By: #### L 500.3400, L100.0100, L501.4020, L501.2450, L500.2500 #### [facility] [address] [place], [address] ECRCL 49.93 ml/min Normal [facility] Comment on above: Order Comment: 'TROP ' Serial specimen #1, #2 or #3: 1 Performed By: #### L 500.3400, L100.0100, L501.4020, L501.2450, L500.2500 #### [facility] [address] [place], [address] EST GFR - AA 84 mL/min Normal >60 [facility] Comment on above: Order Comment: 'TROP ' Serial specimen #1, #2 or #3: 1 Result Comment: Afri can [place] GFR Calc Performed By: #### L 500.3400, L100.0100, L501.4020, L501.2450, L500.2500 #### [facility] [address] [place], [address] GAP 6 Normal 5-15 [facility] Comment on above: Order Comment: 'TROP ' Serial specimen #1, #2 or #3: 1 Performed By: #### L 500.3400, L100.0100, L501.4020, L501.2450, L500.2500 #### [facility] [address] [place], [address] GFR/1.73 sq M.predicted among non-blacks MDRD (S/P/Bld) [Vol rate/Area] 70 mL/min/{1.73_m2} Normal >60 [facility] Comment on above: Order Comment: 'TROP ' Serial specimen #1, #2 or #3: 1 Result Comment: Non- GFR Calc Performed By: #### L 500.3400, L100.0100, L501.4020, L501.2450, L500.2500 #### [facility] [address] [place], [address] Glucose [Mass/Vol] 214 mg/dL High 74-106 [facility] Comment on above: Order Comment: 'TROP ' Serial specimen #1, #2 or #3: 1 Result Comment: Gluc ose result greater than or equal to 200 mg/dL suggests DIABETES MELLITUS per A.D.A. criteria. Performed By: #### L 500.3400, L100.0100, L501.4020, L501.2450, L500.2500 #### [facility] [address] [place], [address] Potassium [Moles/Vol] 3.6 mmol/L Normal 3.5-5.1 [facility] Comment on above: Order Comment: 'TROP ' Serial specimen #1, #2 or #3: 1 Performed By: #### L 500.3400, L100.0100, L501.4020, L501.2450, L500.2500 #### [facility] [address] [place], [address] Sodium [Moles/Vol] 141 mmol/L Normal 136-145 [facility] Comment on above: Order Comment: 'TROP ' Serial specimen #1, #2 or #3: 1 Performed By: #### L 500.3400, L100.0100, L501.4020, L501.2450, L500.2500 #### [facility] [address] [place], [address] Urea nitrogen [Mass/Vol] 8 mg/dL Normal 7-18 [facility] Comment on above: Order Comment: 'TROP ' Serial specimen #1, #2 or #3: 1 Performed By: #### L 500.3400, L100.0100, L501.4020, L501.2450, L500.2500 #### [facility] [address] [place], [address] CBC W/Diff, Automatedon 04-02 Absolute Lymph 3.61 X10 3/uL Normal 0.83-4.51 [facility] Comment on above: Performed By: #### L 500.3400, L100.0100, L501.4020, L501.2450, L500.2500 #### [facility] [address] [place], [address] Absolute Neut 3.1 X10 3/uL Normal 2.0-7.7 [facility] Comment on above: Performed By: #### L 500.3400, L100.0100, L501.4020, L501.2450, L500.2500 #### [facility] [address] [place], [address] Basophils/100 WBC (Bld) 0.5 % Normal 0-1 [facility] Comment on above: Performed By: #### L 500.3400, L100.0100, L501.4020, L501.2450, L500.2500 #### [facility] [address] [place], [address] Eosinophils/100 WBC (Bld) 1.5 % Normal 0-5 [facility] Comment on above: Performed By: #### L 500.3400, L100.0100, L501.4020, L501.2450, L500.2500 #### [facility] [address] [place], [address] Erythrocyte distribution width (RBC) [Ratio] 12.9 % Normal 11.6-14.6 [facility] Comment on above: Performed By: #### L 500.3400, L100.0100, L501.4020, L501.2450, L500.2500 #### [facility] [address] [place], [address] Hematocrit (Bld) [Volume fraction] 36.4 % Low 37-47 [facility] Comment on above: Performed By: #### L 500.3400, L100.0100, L501.4020, L501.2450, L500.2500 #### [facility] [address] [place], [address] Hemoglobin (Bld) [Mass/Vol] 12.3 g/dL Normal 12.0-15.0 [facility] Comment on above: Performed By: #### L 500.3400, L100.0100, L501.4020, L501.2450, L500.2500 #### [facility] [address] [place], [address] IG% 0.300 Normal 0.0-0.9 [facility] Comment on above: Result Comment: IG% - Immature Granulocytes (promyelocytes, myelocytes and metamyelocytes) > 1% indicates that a LEFT SHIFT is Present. Performed By: #### L 500.3400, L100.0100, L501.4020, L501.2450, L500.2500 #### [facility] [address] [place], [address] Lymphocytes/100 WBC (Bld) 49.6 % High 19-41 [facility] Comment on above: Performed By: #### L 500.3400, L100.0100, L501.4020, L501.2450, L500.2500 #### [facility] [address] [place], [address] MCH (RBC) [Entitic mass] 29.6 pg Normal 27.0-32.0 [facility] Comment on above: Performed By: #### L 500.3400, L100.0100, L501.4020, L501.2450, L500.2500 #### [facility] [address] [place], [address] MCHC (RBC) [Mass/Vol] 33.8 g/dL Normal 32-36 [facility] Comment on above: Performed By: #### L 500.3400, L100.0100, L501.4020, L501.2450, L500.2500 #### [facility] [address] [place], [address] MCV (RBC) [Entitic vol] 87.7 fL Normal 81-99 [facility] Comment on above: Performed By: #### L 500.3400, L100.0100, L501.4020, L501.2450, L500.2500 #### [facility] [address] [place], [address] Monocytes/100 WBC (Bld) 5.6 % Normal 0-10 [facility] Comment on above: Performed By: #### L 500.3400, L100.0100, L501.4020, L501.2450, L500.2500 #### [facility] [address] [place], [address] Neutrophils/100 WBC (Bld) 42.5 % Low 47-70 [facility] Comment on above: Performed By: #### L 500.3400, L100.0100, L501.4020, L501.2450, L500.2500 #### [facility] [address] [place], [address] Nucleated RBC (Bld) [#/Vol] 0 10*3/uL Normal 0-5 [facility] Comment on above: Performed By: #### L 500.3400, L100.0100, L501.4020, L501.2450, L500.2500 #### [facility] [address] [place], [address] Platelet mean volume (Bld) [Entitic vol] 9.4 fL Normal 6.2-12.0 [facility] Comment on above: Performed By: #### L 500.3400, L100.0100, L501.4020, L501.2450, L500.2500 #### [facility] [address] [place], [address] Platelets (Bld) [#/Vol] 280 10*3/uL Normal 150-450 [facility] Comment on above: Performed By: #### L 500.3400, L100.0100, L501.4020, L501.2450, L500.2500 #### [facility] [address] [place], [address] RBC (Bld) [#/Vol] 4.15 10*6/uL Low 4.2-5.4 [facility] Comment on above: Performed By: #### L 500.3400, L100.0100, L501.4020, L501.2450, L500.2500 #### [facility] [address] [place], [address] RDW SD 40.8 fl Normal 35.1-43.9 [facility] Comment on above: Performed By: #### L 500.3400, L100.0100, L501.4020, L501.2450, L500.2500 #### [facility] [address] [place], [address] WBC (Bld) [#/Vol] 7.3 10*3/uL Normal 4.4-11.0 [facility] Comment on above: Performed By: #### L 500.3400, L100.0100, L501.4020, L501.2450, L500.2500 #### [facility] [facility] [address] [place], [address] Chest 1 View (Portable)on Chest 1 View (Portable) [facility] Imaging Services [address] [place] [address] Chest 1 View (Portable) MR#: [id number] Acct: [id number] Name: LUIZA GALO Rep #: [id number] : 1940 F 83 From: Lorne Gomez DO PCP: Dr. Rosalind Rubalcava MD Status: [facility] ER Study: Chest 1 View (Portable) Date of Exam: 04/19/24 Exam# [id number] Ordering Dr: [place] [id number] INDICATION: chest pain EXAMINATION/TECHNIQUE: X-RAY - XR Chest 1 View COMPARISON: April 01, 2024 FINDINGS: LINES/DEVICES: Stable sternotomy wires. LUNGS: No consolidation, edema or effusion. No pneumothorax. MEDIASTINUM AND CARDIOVASCULAR STRUCTURES: Cardiac silhouette not enlarged. Central airways and mediastinal contour are unremarkable. BONES AND SOFT TISSUES: Unremarkable. RAD/Chest 1 View (Portable) IMPRESSION: No radiographic evidence of acute cardiopulmonary disease. Electronically Signed: Lorne Gomez DO at 17:50 EDT Reading Location ID and State: [facility] / [place] Tel [phone], Service support , CC: Dr. Enrrique Eric DO; Dr. Rosalind Rubalcava MD Loan Interviewer: Signed Normal [facility] Emergency Department Summary on 04-19-2024 Emergency Department Summary [facility] Medical Records Department [address] [place] [address] Emergency Department Summary 04/19/24 MR#: [id number] Acct: [id number] Name: LUIZA GALO Rep #: [id number] : 1940 83 From: Enrrique Eric DO PCP: Dr. Rosalind Rubalcava MD Status:DEP ER Location: ED HPI History of Present Illness Chief Complaint: Chest Pain Informant: patient and EMS Narrative Narrative: 83-year-old female presenting to the emergency room for hypertension and chest pain. Patient states that she got up this morning around 4:00 and urinated got ready for the day. She had some breakfast consisting of oatmeal and around 930 this morning had frosted flakes. About 10:00 she states PT and OT came to her room and she noticed a discomfort on the left side of her chest and in her epigastrium. She states that there is a pressure and a burning component to it. It radiates towards her left side. She states they took her blood pressure and it was higher than normal and they have Taken it throughout the day and seems higher. She states that the staff has made numerous phone calls and eventually she was transported here to the emergency department. She states that she has not missed any of her daily medications. Is noted that the patient is on Eliquis for paroxysmal atrial fibrillation. Patient rates the pain as severe but also appears and speaks quite comfortably. She has a history of diabetes coronary artery disease obstructive sleep apnea and prior pulmonary embolism. She notes that she was in the emergency department recently for fecal impaction and after several days she has been stooling. She had diarrhea yesterday but a formed stool today. She does not take any PPI or acid java lead medications other than the occasional Gas-X and milk of magnesia. She notes increasing belching and gas over the past few days and wonders if the stomach lining is irritated [facility] Medical History Ascending cholangitis Immunosuppression due to drug therapy Former tobacco use Anxiety and depression History of left heart catheterization (LHC) ( 01/20/21) Paroxysmal atrial fibrillation Essential hypertension Atherosclerosis of coronary artery of [place] heart without angina pectoris MCFP (current) use of anticoagulants Bradycardia Stroke Dysphagia Morbid obesity Osteoarthritis GERD (gastroesophageal reflux disease) Pulmonary embolism Hyperlipidemia MARIVEL (obstructive sleep apnea) Diabetes mellitus Home Medications ???Medication ???Instructions ???Recorded ???Last Taken ???Type atorvastatin 40 mg tablet 40 mg PO QDAY cholesterol #30 tabs 03/02/18 05/17/23 Rx alprazolam 0.5 mg tablet 0.5 mg PO 4X/DAY anxiety 02/21/20 08/10/23 History montelukast 10 mg tablet 10 mg PO DAILY allergies 12/29/20 Unknown History BP cuff #1 ea 01/20/22 Unknown Rx cholecalciferol (vitamin D3) 125 125 mcg PO DAILY vitamin 01/20/22 Unknown History mcg (5,000 unit) capsule acetaminophen 500 mg tablet 1,000 mg PO Q4H PRN pain 05/19/22 Unknown History (Tylenol Extra Strength) ropinirole 1 mg tablet 2 mg PO BID pain 05/19/22 Unknown History guselkumab 100 mg/mL subcutaneous 100 mg subcut .monthly psoriasis 08/14/23 Unknown History syringe (Tremfya) trazodone 150 mg tablet 150 mg PO QHS sleep 10/24/23 Unknown History apixaban 5 mg tablet (Eliquis) 5 mg PO BID blood thinner #180 tabs 10/25/23 Unknown Rx insulin degludec 100 unit/mL 25 unit subcut DAILY diabetes 04/01/24 Unknown History subcutaneous solution (Tresiba U-100 Insulin) metoprolol succinate 25 mg 12.5 mg PO DAILY blood pressure 04/01/24 Unknown History tablet,extended release 24 hr aspirin 81 mg tablet,delayed 81 mg PO BREAKFAST #0 tabs 04/02/24 Unknown Rx release hydralazine 25 mg tablet 25 mg PO BID #120 tabs 04/02/24 Unknown Rx losartan 25 mg tablet 25 mg PO DAILY #30 TABLETS 04/12/24 Unknown Rx levothyroxine 50 mcg tablet 50 mcg PO DAILY 04/19/24 Unknown History omeprazole 40 mg capsule,delayed 40 mg PO DAILY #14 caps 04/19/24 Unknown Rx release sucralfate 1 gram tablet (Carafate) 1 g PO Q6H 14 days #56 tabs 04/19/24 Unknown Rx Allergy/AdvReac Type Severity Reaction Status Date / Time Anesthetics - Amide Type - Allergy NEEDS Verified 04/19/24 16:02 Select A FOLLOW-UP Anesthetics - Tyra Type- Allergy NEEDS Verified 04/19/24 16:02 Parabens FOLLOW-UP latex Allergy Unknown Verified 04/19/24 16:02 promethazine (From Phenergan) Allergy PT UNSURE Verified 04/19/24 16:02 OF REACTION sitagliptin phosphate (From Allergy Unknown Verified 04/19/24 16:02 Januvia) insulin isophane (NPH) AdvReac Severe heart burn Verified 04/19/24 16:02 insulin degludec (From AdvReac Mild Nausea Verified 04/19/24 16:02 Xultophy 100/3.6) liraglutide (From Xult (more content not included)... Normal [facility] L501.4020on 04-19-2024 TROPONIN-I HS 18 pg/mL Normal 3.0-54.0 [facility] Comment on above: Order Comment: 'TROP ' Serial specimen #1, #2 or #3: 1 Result Comment: Plea se Note: New Test Units and Gender Specific Reference Ranges. For more information see Policy Stat Procedure Pierre Part High Sensitivity Troponin (TNIH) and attachments. Performed By: #### L 500.3400, L100.0100, L501.4020, L501.2450, L500.2500 #### [facility] [address] [place], [place], [id number] TROPONIN-I HS 18 pg/mL Normal 3.0-54.0 [facility] Comment on above: Order Comment: 'TROP ' Serial specimen #1, #2 or #3: 1 Result Comment: Plea se Note: New Test Units and Gender Specific Reference Ranges. For more information see Policy Stat Procedure Pierre Part High Sensitivity Troponin (TNIH) and attachments. Performed By: #### L 500.3400, L100.0100, L501.4020, L501.2450, L500.2500 #### [facility] [address] [place], [place], [id number] Lipaseon 04-19-2024 Lipase [Catalytic activity/Vol] 22 U/L Normal 13-75 [facility] Comment on above: Order Comment: 'TROP ' Serial specimen #1, #2 or #3: 1 Result Comment: Plea se note: LIPASE revised reference range effective 23. New Lipase methodology. Expected to produce lower values than the previous assay method. NEW Reference Range: 13 - 75 U/L Performed By: #### L 500.3400, L100.0100, L501.4020, L501.2450, L500.2500 #### [facility] [address] [place], [address] Liver Profileon 04-19-2024 Albumin [Mass/Vol] 3.1 g/dL Low 3.2-5.0 [facility] Comment on above: Order Comment: 'TROP ' Serial specimen #1, #2 or #3: 1 Performed By: #### L 500.3400, L100.0100, L501.4020, L501.2450, L500.2500 #### [facility] [address] [place], [address] ALK P 114 U/L Normal 45-117 [facility] Comment on above: Order Comment: 'TROP ' Serial specimen #1, #2 or #3: 1 Performed By: #### L 500.3400, L100.0100, L501.4020, L501.2450, L500.2500 #### [facility] [address] [place], [address] ALT [Catalytic activity/Vol] 29 U/L Normal 13-56 [facility] Comment on above: Order Comment: 'TROP ' Serial specimen #1, #2 or #3: 1 Performed By: #### L 500.3400, L100.0100, L501.4020, L501.2450, L500.2500 #### [facility] [address] [place], [address] AST [Catalytic activity/Vol] 30 U/L Normal 15-37 [facility] Comment on above: Order Comment: 'TROP ' Serial specimen #1, #2 or #3: 1 Performed By: #### L 500.3400, L100.0100, L501.4020, L501.2450, L500.2500 #### [facility] [address] [place], [address] Bilirubin [Mass/Vol] 0.30 mg/dL Normal 0.20-1.00 [facility] Comment on above: Order Comment: 'TROP ' Serial specimen #1, #2 or #3: 1 Result Comment: For patients on eltrombopag therapy, use of Dimension Pierre Part TBIL is not recommended. Performed By: #### L 500.3400, L100.0100, L501.4020, L501.2450, L500.2500 #### [facility] [address] [place], [address] Bilirubin.direct [Mass/Vol] 0.10 mg/dL Normal 0.00-0.30 [facility] Comment on above: Order Comment: 'TROP ' Serial specimen #1, #2 or #3: 1 Performed By: #### L 500.3400, L100.0100, L501.4020, L501.2450, L500.2500 #### [facility] [address] [place], [address] Globulin (S) [Mass/Vol] 3.9 g/dL Normal 2.2-4.2 [facility] Comment on above: Order Comment: 'TROP ' Serial specimen #1, #2 or #3: 1 Performed By: #### L 500.3400, L100.0100, L501.4020, L501.2450, L500.2500 #### [facility] [address] [place], [address] T PROT 7.0 g/dL Normal 6.4-8.2 [facility] Comment on above: Order Comment: 'TROP ' Serial specimen #1, #2 or #3: 1 Performed By: #### L 500.3400, L100.0100, L501.4020, L501.2450, L500.2500 #### [facility] [address] [place], [address] Abdomen/Pelvis W IV Cont ONL Yon 04-07-2024 Abdomen/Pelvis W IV Cont ONLY [facility] Imaging Services [address] [address] Abdomen/Pelvis W IV Cont ONLY MR#: [id number] Acct: [id number] Name: LUIZA GALO Rep #: [id number] : 1940 F 83 From: Shaw Chawla MD PCP: Dr. Rosalind Rubalcava MD Status: DEP ER Study: Abdomen/Pelvis W IV Cont ONLY Date of Exam: Exam# [id number] Ordering Dr: [place] [id number] EXAM: CT ABDOMEN AND PELVIS WITH INTRAVENOUS CONTRAST CLINICAL INDICATION: diffuse pain, hematochezia, inc WBC TECHNIQUE: Helically acquired images were obtained of the abdomen and pelvis with intravenous contrast. This CT exam was performed using one or more of the following dose reduction techniques: automated exposure control, adjustment of the mA and/or kV according to patient size, and/or use of iterative reconstruction technique. CONTRAST: IV 100mL [id number] COMPARISON: 05/13/2023 FINDINGS: LOWER THORAX: There are extensive coronary artery calcifications. Lung bases are clear. No cardiomegaly. No significant pericardial effusion. ABDOMEN: LIVER: Unremarkable. Homogeneous. No focal mass. GALLBLADDER AND BILE DUCTS: There are surgical clips from a cholecystectomy. There is a common bile duct stent with the majority of the stent within the duodenum. PANCREAS: Unremarkable. No focal cystic or solid mass. SPLEEN: Unremarkable. Normal size without focal cystic or solid mass. ADRENALS: Unremarkable. No nodules. KIDNEYS AND URETERS: Unremarkable. Normal renal size and position. No hydronephrosis. STOMACH AND BOWEL: Colon is fluid-filled which may represent incipient diarrhea. There is stool seen within the distal sigmoid colon and rectum which may represent developing fecal impaction. PELVIS: APPENDIX: No evidence of acute appendicitis. BLADDER: Unremarkable. REPRODUCTIVE: Unremarkable as visualized. No mass. ABDOMEN and PELVIS: INTRAPERITONEAL SPACE: Unremarkable. No ascites or other fluid collection. No free air. BONES/JOINTS: Unremarkable. No suspicious lytic or blastic abnormality. SOFT TISSUES: Unremarkable. No discrete abdominal or pelvic wall hernia. VASCULATURE: See above. LYMPH NODES: Unremarkable. No enlarged lymph nodes. CT/Abdomen/Pelvis W IV Cont ONLY IMPRESSION: 1. Stool within the distal sigmoid colon and rectum which may represent developing fecal impaction. The remainder of the colon is fluid-filled which may represent incipient diarrhea. 2. Common bile duct stent with approximately 6.5 cm of the stent within the duodenum. Electronically Signed: Shaw Chawla MD at 22:38 EDT , CC: Dr. Tonny Herbert MD; Dr. Rosalind Rubalcava MD Loan Interviewer: Signed Normal [facility] Basic Metabolic Profile (BMP )on 04-07-2024 BUN/CRE 12.3 RATIO Normal 10-20 [facility] Comment on above: Performed By: #### L 100.0100, L500.2500, M100.7900 #### [facility] [address] [place], [address] CA,Total 9.7 mg/dL Normal 8.5-10.1 [facility] Comment on above: Performed By: #### L 100.0100, L500.2500, M100.7900 #### [facility] [address] [place], [address] Chloride [Moles/Vol] 106 mmol/L Normal 98-107 [facility] Comment on above: Performed By: #### L 100.0100, L500.2500, M100.7900 #### [facility] [address] [place], [address] CO2 [Moles/Vol] 27.0 mmol/L Normal 21.0-32.0 [facility] Comment on above: Performed By: #### L 100.0100, L500.2500, M100.7900 #### [facility] [address] [place], [address] Creatinine [Mass/Vol] 1.06 mg/dL High 0.55-1.02 [facility] Comment on above: Result Comment: The validity of the calculated GFR GFRAA in patients over 70 years has not been determined. Clinical correlation is essential. Performed By: #### L 100.0100, L500.2500, M100.7900 #### [facility] [address] [place], [address] ECRCL 39.81 ml/min Normal [facility] Comment on above: Performed By: #### L 100.0100, L500.2500, M100.7900 #### [facility] [address] [place], [address] EST GFR - AA 64 mL/min Normal >60 [facility] Comment on above: Result Comment: Afri can [place] GFR Calc Performed By: #### L 100.0100, L500.2500, M100.7900 #### [facility] [address] [place], [address] GAP 8 Normal 5-15 [facility] Comment on above: Performed By: #### L 100.0100, L500.2500, M100.7900 #### [facility] [address] [place], [address] GFR/1.73 sq M.predicted among non-blacks MDRD (S/P/Bld) [Vol rate/Area] 53 mL/min/{1.73_m2} Low >60 [facility] Comment on above: Result Comment: Non- GFR Calc Performed By: #### L 100.0100, L500.2500, M100.7900 #### [facility] [address] [place], [address] Glucose [Mass/Vol] 153 mg/dL High 74-106 [facility] Comment on above: Result Comment: Fast ing Glucose result greater than or equal to 126 mg/dL suggests DIABETES MELLITUS per A.D.A. criteria. Performed By: #### L 100.0100, L500.2500, M100.7900 #### [facility] [address] [place], [address] Potassium [Moles/Vol] 3.4 mmol/L Low 3.5-5.1 [facility] Comment on above: Performed By: #### L 100.0100, L500.2500, M100.7900 #### [facility] [address] [place], [address] Sodium [Moles/Vol] 141 mmol/L Normal 136-145 [facility] Comment on above: Performed By: #### L 100.0100, L500.2500, M100.7900 #### [facility] [address] [place], [address] Urea nitrogen [Mass/Vol] 13 mg/dL Normal 7-18 [facility] Comment on above: Performed By: #### L 100.0100, L500.2500, M100.7900 #### [facility] [address] [place], [address] CBC W/Diff, Automatedon 07-0 6-2024 Absolute Lymph 2.69 X10 3/uL Normal 0.83-4.51 [facility] Comment on above: Performed By: #### L 100.0100, L500.2500, M100.7900 #### [facility] [address] [place], [address] Absolute Neut 12.4 X10 3/uL High 2.0-7.7 [facility] Comment on above: Performed By: #### L 100.0100, L500.2500, M100.7900 #### [facility] [address] [place], [address] Basophils/100 WBC (Bld) 0.4 % Normal 0-1 [facility] Comment on above: Performed By: #### L 100.0100, L500.2500, M100.7900 #### [facility] [address] [place], [address] Eosinophils/100 WBC (Bld) 0.1 % Normal 0-5 [facility] Comment on above: Performed By: #### L 100.0100, L500.2500, M100.7900 #### [facility] [address] [place], [address] Erythrocyte distribution width (RBC) [Ratio] 13.3 % Normal 11.6-14.6 [facility] Comment on above: Performed By: #### L 100.0100, L500.2500, M100.7900 #### [facility] [address] [place], [address] Hematocrit (Bld) [Volume fraction] 41.0 % Normal 37-47 [facility] Comment on above: Performed By: #### L 100.0100, L500.2500, M100.7900 #### [facility] [address] [place], [address] Hemoglobin (Bld) [Mass/Vol] 13.6 g/dL Normal 12.0-15.0 [facility] Comment on above: Performed By: #### L 100.0100, L500.2500, M100.7900 #### [facility] [address] [place], [address] IG% 0.500 Normal 0.0-0.9 [facility] Comment on above: Result Comment: IG% - Immature Granulocytes (promyelocytes, myelocytes and metamyelocytes) > 1% indicates that a LEFT SHIFT is Present. Performed By: #### L 100.0100, L500.2500, M100.7900 #### [facility] [address] [place], [address] Lymphocytes/100 WBC (Bld) 16.8 % Low 19-41 [facility] Comment on above: Performed By: #### L 100.0100, L500.2500, M100.7900 #### [facility] [address] [place], [address] MCH (RBC) [Entitic mass] 29.5 pg Normal 27.0-32.0 [facility] Comment on above: Performed By: #### L 100.0100, L500.2500, M100.7900 #### [facility] [address] [place], [address] MCHC (RBC) [Mass/Vol] 33.2 g/dL Normal 32-36 [facility] Comment on above: Performed By: #### L 100.0100, L500.2500, M100.7900 #### [facility] [address] [place], [address] MCV (RBC) [Entitic vol] 88.9 fL Normal 81-99 [facility] Comment on above: Performed By: #### L 100.0100, L500.2500, M100.7900 #### [facility] [address] [place], [address] Monocytes/100 WBC (Bld) 4.4 % Normal 0-10 [facility] Comment on above: Performed By: #### L 100.0100, L500.2500, M100.7900 #### [facility] [address] [place], [address] Neutrophils/100 WBC (Bld) 77.8 % High 47-70 [facility] Comment on above: Performed By: #### L 100.0100, L500.2500, M100.7900 #### [facility] [address] [place], [address] Nucleated RBC (Bld) [#/Vol] 0 10*3/uL Normal 0-5 [facility] Comment on above: Performed By: #### L 100.0100, L500.2500, M100.7900 #### [facility] [address] [place], [address] Platelet mean volume (Bld) [Entitic vol] 9.8 fL Normal 6.2-12.0 [facility] Comment on above: Performed By: #### L 100.0100, L500.2500, M100.7900 #### [facility] [address] [place], [address] Platelets (Bld) [#/Vol] 293 10*3/uL Normal 150-450 [facility] Comment on above: Performed By: #### L 100.0100, L500.2500, M100.7900 #### [facility] [address] [place], [address] RBC (Bld) [#/Vol] 4.61 10*6/uL Normal 4.2-5.4 [facility] Comment on above: Performed By: #### L 100.0100, L500.2500, M100.7900 #### [facility] [address] [place], [address] RDW SD 43.0 fl Normal 35.1-43.9 [facility] Comment on above: Performed By: #### L 100.0100, L500.2500, M100.7900 #### [facility] [address] [place], [address] WBC (Bld) [#/Vol] 16.0 10*3/uL High 4.4-11.0 [facility] Comment on above: Performed By: #### L 100.0100, L500.2500, M100.7900 #### [facility] [address] [place], [address] Emergency Department Summary on 04-07-2024 Emergency Department Summary [facility] Medical Records Department [address] [place] [address] Emergency Department Summary 04/07/24 MR#: [id number] Acct: [id number] Name: LUIZA GALO Rep #: [id number] : 1940 83 From: Tonny Herbert MD PCP: Dr. Rosalind Rubalcava MD Status:REG ER Location: ED HPI HPI - GI History of Present Illness Chief Complaint: Constipation Informant: patient Narrative Narrative: 83-year-old who feels constipated, she can feel hard stool in the rectum with pain and discomfort and she is unable to pass it. Last bowel movement was 3 days ago. Today she started getting abdominal pressure and discomfort diffuse some nausea occasionally but no vomiting. She has tried taking laxatives but has been unable to go and states she has been on and off of the toilet all day, and passing some loose diarrhea around the hard stool to no effect on her symptoms. 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 Bradycardia Stroke Dysphagia Morbid obesity Osteoarthritis GERD (gastroesophageal reflux disease) Pulmonary embolism Hyperlipidemia MARIVEL (obstructive sleep apnea) Diabetes mellitus Home Medications ???Medication ???Instructions ???Recorded ???Last Taken ???Type atorvastatin 40 mg tablet 40 mg PO QDAY cholesterol #30 tabs 03/02/18 05/17/23 Rx alprazolam 0.5 mg tablet 0.5 mg PO 4X/DAY anxiety 11/23/19 05/12/23 History montelukast 10 mg tablet 10 mg PO DAILY allergies 12/29/20 Unknown History BP cuff #1 ea 01/20/22 Unknown Rx cholecalciferol (vitamin D3) 125 125 mcg PO DAILY vitamin 01/20/22 Unknown History mcg (5,000 unit) capsule acetaminophen 500 mg tablet 1,000 mg PO Q4H PRN pain 05/19/22 Unknown History (Tylenol Extra Strength) ropinirole 1 mg tablet 2 mg PO BID pain 05/19/22 Unknown History guselkumab 100 mg/mL subcutaneous 100 mg subcut .monthly psoriasis 08/14/23 Unknown History syringe (Tremfya) losartan 100 mg tablet 25 mg PO DAILY BP 08/14/23 Unknown History trazodone 150 mg tablet 150 mg PO QHS sleep 10/24/23 Unknown History apixaban 5 mg tablet (Eliquis) 5 mg PO BID blood thinner #180 tabs 10/25/23 Unknown Rx hydrocodone-acetaminoph en 5-325mg 1 tab PO 4X/DAY PRN PRN pain 11/20/23 Unknown History 5mg-325mg insulin degludec 100 unit/mL 25 unit subcut DAILY diabetes 04/01/24 Unknown History subcutaneous solution (Tresiba U-100 Insulin) metoprolol succinate 25 mg 12.5 mg PO DAILY blood pressure 04/01/24 Unknown History tablet,extended release 24 hr aspirin 81 mg tablet,delayed 81 mg PO BREAKFAST #0 tabs 04/02/24 Unknown Rx release hydralazine 25 mg tablet 25 mg PO BID #120 tabs 04/02/24 Unknown Rx Allergy/AdvReac Type Severity Reaction Status Date / Time Anesthetics - Amide Type - Allergy NEEDS Verified 04/07/24 19:38 Select A FOLLOW-UP Anesthetics - Tyra Type- Allergy NEEDS Verified 04/07/24 19:38 Parabens FOLLOW-UP latex Allergy Unknown Verified 04/07/24 19:38 promethazine (From Phenergan) Allergy PT UNSURE Verified 04/07/24 19:38 OF REACTION sitagliptin phosphate (From Allergy Unknown Verified 04/07/24 19:38 Januvia) insulin isophane (NPH) AdvReac Severe heart burn Verified 04/07/24 19:38 insulin degludec (From AdvReac Mild Nausea Verified 04/07/24 19:38 Xultophy 100/3.6) liraglutide (From Xultophy AdvReac Mild Nausea Verified 04/07/24 19:38 100/3.6) atorvastatin (From Lipitor) AdvReac Unknown Unknown Verified 04/07/24 19:38 codeine AdvReac Unknown Unknown Verified 04/07/24 19:38 tizanidine AdvReac Unknown Unknown Verified 04/07/24 19:38 Family History Father CAD (coronary artery disease) Mother CAD (coronary artery disease) Brother CAD (coronary artery disease) Surgical History Hx of CABG History of bilateral cataract extraction History of knee surgery History of cholecystectomy History of total hysterectomy H/O coronary artery bypass surgery ( 06/01/17) Social History household members: none housing: assisted living facility Smoking Status: Former smoker how long ago did patient quit smokin years ago second hand exposure: Yes alcohol intake: never substance use type: does not use caffeine: No ROS ROS ED Constitutional Constitutional ED: Denies chills or fever(s) Eyes Eyes: Denies change in v (more content not included)... Normal [facility] Stool Occult Blood iFOBon STOB Positive Normal [facility] Comment on above: Performed By: #### L 100.0100, L500.2500, M100.7900 #### [facility] Laboratory [address], [place], [address] 12 Lead EKGon 04-02-2024 12 Lead EKG [facility] Cardiovascular Services [address] [place] [address] 12 Lead EKG 04/01/242015 MR#: [id number] Acct: [id number] Name: LUIZA GALO Rep #: [id number] : 1940 83 From: Pawan Reed MD Attending Dr: Dr. El Best MD Status: DIS BJ Ordering Dr: Fausto Wright MD Date: 04/02/24 Location: [facility] Sex: F C Admitted: 04/01/24 Test Reason : CP Blood Pressure : / mmHG Vent. Rate : 073 BPM Atrial Rate : 073 BPM P-R Int : 224 ms QRS Dur : 080 ms QT Int : 398 ms P-R-T Axes : 050 055 097 degrees QTc Int : 438 ms Sinus rhythm with 1st degree A-V block Nonspecific ST and T wave abnormality Abnormal ECG When compared with ECG of 01-APR-2024 14:37, MANUAL COMPARISON REQUIRED, DATA IS UNCONFIRMED Confirmed by DEREK ALY, PAWAN ([id number]), assistant editor DARLEEN MAN ([id number]) on 04/03/2024 5:56:23 AM Referred By: Confirmed By:PAWAN REED MD 04/03/24 0556 Date Pawan Reed MD CC: Dr. El Best MD; Dr. Fausto Wright MD; Dr. Rosalind Rubalcava MD Signed Normal [facility] Basic Metabolic Profile (BMP )on 04-02-2024 BUN/CRE 16.3 RATIO Normal 10-20 [facility] Comment on above: Performed By: #### L 501.080 #### [facility] [address] [place], [address] CA,Total 8.8 mg/dL Normal 8.5-10.1 [facility] Comment on above: Performed By: #### L 501.080 #### [facility] [address] [place], [address] Chloride [Moles/Vol] 108 mmol/L High 98-107 [facility] Comment on above: Performed By: #### L 501.080 #### [facility] [address] [place], [address] CO2 [Moles/Vol] 28.0 mmol/L Normal 21.0-32.0 [facility] Comment on above: Performed By: #### L 501.080 #### [facility] [address] [place], [address] Creatinine [Mass/Vol] 0.98 mg/dL Normal 0.55-1.02 [facility] Comment on above: Result Comment: The validity of the calculated GFR GFRAA in patients over 70 years has not been determined. Clinical correlation is essential. Performed By: #### L 501.080 #### [facility] [address] [place], [address] ECRCL 41.98 ml/min Normal [facility] Comment on above: Performed By: #### L 501.080 #### [facility] [address] [place], [address] EST GFR - AA 70 mL/min Normal >60 [facility] Comment on above: Result Comment: Afri can [place] GFR Calc Performed By: #### L 501.080 #### [facility] [address] [place], [address] GAP 6 Normal 5-15 [facility] Comment on above: Performed By: #### L 501.080 #### [facility] [address] [place], [address] GFR/1.73 sq M.predicted among non-blacks MDRD (S/P/Bld) [Vol rate/Area] 58 mL/min/{1.73_m2} Low >60 [facility] Comment on above: Result Comment: Non- GFR Calc Performed By: #### L 501.080 #### [facility] [address] [place], [address] Glucose [Mass/Vol] 140 mg/dL High 74-106 [facility] Comment on above: Result Comment: Fast ing Glucose result greater than or equal to 126 mg/dL suggests DIABETES MELLITUS per A.D.A. criteria. Performed By: #### L 501.080 #### [facility] [address] [place], [address] Potassium [Moles/Vol] 3.8 mmol/L Normal 3.5-5.1 [facility] Comment on above: Performed By: #### L 501.080 #### [facility] [address] [place], [address] Sodium [Moles/Vol] 142 mmol/L Normal 136-145 [facility] Comment on above: Performed By: #### L 501.080 #### [facility] [address] [place], [address] Urea nitrogen [Mass/Vol] 16 mg/dL Normal 7-18 [facility] Comment on above: Performed By: #### L 501.080 #### [facility] [address] [place], [address] Bedside Glucoseon 04-02-2024 FINGERSTICK GLU 177 mg/dL High 74-106 [facility] Comment on above: Result Comment: TRAE GEMENT OF PATIENT CARE PER NURSING PROTOCOL Performed By: #### L 501.080 #### [facility] [address] [place], [address] FINGERSTICK GLU 119 mg/dL High 74-106 [facility] Comment on above: Result Comment: TRAE GEMENT OF PATIENT CARE PER NURSING PROTOCOL Performed By: #### L 500.3400, L100.0100, L501.4020, L501.2450, L500.2500 #### [facility] [address] [place], [address] CBC W/Diff, Automatedon 07-0 Absolute Lymph 2.78 X10 3/uL Normal 0.83-4.51 [facility] Comment on above: Performed By: #### L 501.080 #### [facility] [address] [place], [address] Absolute Neut 5.0 X10 3/uL Normal 2.0-7.7 [facility] Comment on above: Performed By: #### L 501.080 #### [facility] [address] [place], [address] Basophils/100 WBC (Bld) 0.5 % Normal 0-1 [facility] Comment on above: Performed By: #### L 501.080 #### [facility] [address] [place], [address] Eosinophils/100 WBC (Bld) 1.3 % Normal 0-5 [facility] Comment on above: Performed By: #### L 501.080 #### [facility] [address] [place], [address] Erythrocyte distribution width (RBC) [Ratio] 13.6 % Normal 11.6-14.6 [facility] Comment on above: Performed By: #### L 501.080 #### [facility] [address] [place], [address] Hematocrit (Bld) [Volume fraction] 37.5 % Normal 37-47 [facility] Comment on above: Performed By: #### L 501.080 #### [facility] [address] [place], [address] Hemoglobin (Bld) [Mass/Vol] 12.4 g/dL Normal 12.0-15.0 [facility] Comment on above: Performed By: #### L 501.080 #### [facility] [address] [place], [address] IG% 0.400 Normal 0.0-0.9 [facility] Comment on above: Result Comment: IG% - Immature Granulocytes (promyelocytes, myelocytes and metamyelocytes) > 1% indicates that a LEFT SHIFT is Present. Performed By: #### L 501.080 #### [facility] [address] [place], [address] Lymphocytes/100 WBC (Bld) 33.2 % Normal 19-41 [facility] Comment on above: Performed By: #### L 501.080 #### [facility] [address] [place], [address] MCH (RBC) [Entitic mass] 29.7 pg Normal 27.0-32.0 [facility] Comment on above: Performed By: #### L 501.080 #### [facility] [address] [place], [address] MCHC (RBC) [Mass/Vol] 33.1 g/dL Normal 32-36 [facility] Comment on above: Performed By: #### L 501.080 #### [facility] [address] [place], [address] MCV (RBC) [Entitic vol] 89.9 fL Normal 81-99 [facility] Comment on above: Performed By: #### L 501.080 #### [facility] [address] [place], [address] Monocytes/100 WBC (Bld) 5.4 % Normal 0-10 [facility] Comment on above: Performed By: #### L 501.080 #### [facility] [address] [place], [address] Neutrophils/100 WBC (Bld) 59.2 % Normal 47-70 [facility] Comment on above: Performed By: #### L 501.080 #### [facility] [address] [place], [address] Nucleated RBC (Bld) [#/Vol] 0 10*3/uL Normal 0-5 [facility] Comment on above: Performed By: #### L 501.080 #### [facility] [address] [place], [address] Platelet mean volume (Bld) [Entitic vol] 9.7 fL Normal 6.2-12.0 [facility] Comment on above: Performed By: #### L 501.080 #### [facility] [address] [place], [address] Platelets (Bld) [#/Vol] 258 10*3/uL Normal 150-450 [facility] Comment on above: Performed By: #### L 501.080 #### [facility] [address] [place], [address] RBC (Bld) [#/Vol] 4.17 10*6/uL Low 4.2-5.4 [facility] Comment on above: Performed By: #### L 501.080 #### [facility] [address] [place], [address] RDW SD 44.6 fl High 35.1-43.9 [facility] Comment on above: Performed By: #### L 501.080 #### [facility] [address] [place], [address] WBC (Bld) [#/Vol] 8.4 10*3/uL Normal 4.4-11.0 [facility] Comment on above: Performed By: #### L 501.080 #### [facility] [address] [place], [address] Hemoglobin A1con 04-02-2024 HbA1c (Bld) [Mass fraction] 6.9 % High 3.8-5.6 [facility] Comment on above: Result Comment: Norm al < 5.7 % Prediabetic 5.7 - 6.4 % Diabetic >or= 6.5 % Please note range changes. Performed By: #### L 501.080 #### [facility] [address] [place], [address] L501.4020on 04-02-2024 TROPONIN-I HS 21 pg/mL Normal 3.0-54.0 [facility] Comment on above: Order Comment: 'TROP ' Serial specimen #1, #2 or #3: 5 Result Comment: Plea se Note: New Test Units and Gender Specific Reference Ranges. For more information see Policy Stat Procedure Pierre Part High Sensitivity Troponin (TNIH) and attachments. Performed By: #### L 501.4020 #### [facility] [address] [place], [address] TROPONIN-I HS 27 pg/mL Normal 3.0-54.0 [facility] Comment on above: Order Comment: 'TROP ' Serial specimen #1, #2 or #3: 4NURSE NOTIFIED ME OF TROPONIN WHILE I WAS ON FLOOR EVIN ITWHILE UP THERE. Result Comment: Plea se Note: New Test Units and Gender Specific Reference Ranges. For more information see Policy Stat Procedure Pierre Part High Sensitivity Troponin (TNIH) and attachments. Performed By: #### L 501.080 #### [facility] [address] [place], [address] Lipid Profileon 04-02-2024 Cholesterol [Mass/Vol] 136 mg/dL Normal 200 [facility] Comment on above: Result Comment: <200 mg/dL Desirable 200-240 mg/dL Borderline >240 mg/dL High Risk Performed By: #### L 501.080 #### [facility] [address] [place], [address] Cholesterol in HDL [Mass/Vol] 41 mg/dL Normal [facility] Comment on above: Result Comment: The drugs N-Acetylcysteine and Metamizole may falsely depress this assay. Reference Range HDL <40 mg/dL Low HDL Cholesterol HDL >or= 60 mg/dL High HDL Cholesterol Performed By: #### L 501.080 #### [facility] [address] [place], [address] Cholesterol in LDL [Mass/Vol] 59 mg/dL Normal 0-130 [facility] Comment on above: Performed By: #### L 501.080 #### [facility] [address] [place], [address] Cholesterol in VLDL [Mass/Vol] 36 mg/dL Normal 5-40 [facility] Comment on above: Performed By: #### L 501.080 #### [facility] [address] [place], [address] Triglyceride [Mass/Vol] 180 mg/dL Normal [facility] Comment on above: Result Comment: The drugs N-Acetylcysteine and Metamizole may falsely depress this assay. Serum Triglycerides Reference Interval Normal <150 mg/dL Borderline high 150 - 199 mg/dL High 200 - 499 mg/dL Very High > or = 500 mg/dL Performed By: #### L 501.080 #### [facility] [address] [place], [address] Stress Reporton 04-02-2024 Stress Report [facility] Cardiovascular Services [address] [place] [address] MR#: [id number] Acct: [id number] Name: LUIZA GALO Rep #: [id number] : 1940 83 From: Pawan Reed MD Primary Care: Dr. Rosalind Rubalcava MD Status: ADM BJ Referring Dr: Sex: F C Stress Test Report Pharmacologic myocardial perfusion stress test. 83-year-old lady with a history of chest pain Resting EKG demonstrates sinus rhythm with a rate of 85 bpm. Resting blood pressure is 162/82 mmHg. 0.4 mg of regadenoson was infused per usual protocol followed by rapid intravenous saline flush injection. Continuous EKG monitoring was performed. The maximum heart rate was 97 bpm which was 69% of max impacted heart rate the maximum workload was 1 metabolic equivalent. At rest there were no ST or T wave changes noted to suggest ischemia and at peak infusion nonspecific ST changes were noted which did not meet the criteria for ischemia. No clinical angina is noted. The final blood pressure was 122/60 mmHg. Myocardial perfusion protocol. 11.9 mCi of technetium 99m sestamibi was injected at rest. 0.4 mg of regadenoson was infused per usual protocol. At peak infusion 35.7 mCi of technetium 99m sestamibi was injected stress images were obtained stress and rest images were reconstructed and compared in the short axis vertical long and horizontal long axis. Gated images were also obtained. Perfusion SPECT analysis: Review of the stress images demonstrate normal uptake of tracer noted in all areas of the myocardium. The resting images similar demonstrated normal uptake of tracer noted in all areas of the myocardium. No areas of reversibility are noted to suggest ischemia and no previous infarct is noted. Gated SPECT analysis: The gated ejection fraction is 65%. Conclusion: Normal pharmacologic myocardial perfusion stress test. Preserved ejection fraction. 04/02/24 1236 Date Pawan Reed MD CC: Dr. El Best MD; Dr. Cirilo Lagunas DO; Dr. Fausto Wright MD; Dr. Rosalind Rubalcava MD Date Dictated: 04/02/24 1235 Date Transcribed: 04/02/241234 Loan Interviewer: [place] Signed [facility] 12 Lead EKGon 04-01-2024 12 Lead EKG [facility] Cardiovascular Services [address] [place] [address] 12 Lead EKG 04/02/24 0521 MR#: [id number] Acct: [id number] Name: LUIZA GALO Rep #: [id number] : 1940 83 From: Pawan Reed MD Attending Dr: Dr. El Best MD Status: DIS BJ Ordering Dr: Fausto Wright MD Date: 04/01/24 Location: [facility] Sex: F C Admitted: 04/01/24 Test Reason : PRE OP Blood Pressure : / mmHG Vent. Rate : 069 BPM Atrial Rate : 069 BPM P-R Int : 214 ms QRS Dur : 092 ms QT Int : 456 ms P-R-T Axes : 069 059 087 degrees QTc Int : 488 ms Sinus rhythm with 1st degree A-V block Otherwise normal ECG When compared with ECG of 01-APR-2024 20:16, MANUAL COMPARISON REQUIRED, DATA IS UNCONFIRMED Confirmed by DEREK ALY, PAWAN ([id number]), assistant editor DARLEEN MAN ([id number]) on 04/03/2024 5:55:11 AM Referred By: Confirmed By:PAWAN REED MD 04/03/24 0555 Date Pawan Reed MD CC: Dr. El Best MD; Dr. Fausto Wright MD; Dr. Rosalind Rubalcava MD Signed [facility] 12 Lead EKG [facility] Cardiovascular Services [address] [facility] [address] [address] 12 Lead EKG 04/01/24 1437 MR#: [id number] Acct: [id number] Name: LUIZA GALO Rep #: [id number] : 1940 83 From: Deric Cortez MD Attending Dr: Dr. El Best MD Status: ADM BJ Ordering Dr: Markel Sotomayor Date: 04/01/24 Location: [facility] Sex: F C Admitted: 04/01/24 Test Reason : CP Blood Pressure : / mmHG Vent. Rate : 061 BPM Atrial Rate : 061 BPM P-R Int : 206 ms QRS Dur : 090 ms QT Int : 450 ms P-R-T Axes : 075 043 073 degrees QTc Int : 453 ms Normal sinus rhythm Normal ECG Confirmed by Deric Cortez ([id number]), assistant editor DARLEEN MAN ([id number]) on 04/02/2024 9:19:37 AM Referred By: Confirmed By:Deric Cortez 04/02/24918 Date Deric Cortez MD CC: KISHAN-David Sotomayor; Dr. El Best MD; Dr. Rosalind Rubalcava MD Signed Normal [facility] Bedside Glucoseon 04-01-2024 FINGERSTICK GLU 122 mg/dL High 74-106 [facility] Comment on above: Result Comment: TRAE WILLIAMSONENT OF PATIENT CARE PER NURSING PROTOCOL Performed By: #### L 501.080 #### [facility] [address] [place], [address] CBC W/Diff, Automatedon 03-05 Absolute Lymph 2.78 X10 3/uL Normal 0.83-4.51 [facility] Comment on above: Performed By: #### L 500.3400, L100.0100, L501.4020, L501.2450, L500.2500 #### [facility] [address] [place], [address] Absolute Neut 3.5 X10 3/uL Normal 2.0-7.7 [facility] Comment on above: Performed By: #### L 500.3400, L100.0100, L501.4020, L501.2450, L500.2500 #### [facility] [address] [place], [address] Basophils/100 WBC (Bld) 0.6 % Normal 0-1 [facility] Comment on above: Performed By: #### L 500.3400, L100.0100, L501.4020, L501.2450, L500.2500 #### [facility] [address] [place], [address] Eosinophils/100 WBC (Bld) 2.1 % Normal 0-5 [facility] Comment on above: Performed By: #### L 500.3400, L100.0100, L501.4020, L501.2450, L500.2500 #### [facility] [address] [place], [address] Erythrocyte distribution width (RBC) [Ratio] 13.5 % Normal 11.6-14.6 [facility] Comment on above: Performed By: #### L 500.3400, L100.0100, L501.4020, L501.2450, L500.2500 #### [facility] [address] [place], [address] Hematocrit (Bld) [Volume fraction] 38.7 % Normal 37-47 [facility] Comment on above: Performed By: #### L 500.3400, L100.0100, L501.4020, L501.2450, L500.2500 #### [facility] [address] [place], [address] Hemoglobin (Bld) [Mass/Vol] 12.9 g/dL Normal 12.0-15.0 [facility] Comment on above: Performed By: #### L 500.3400, L100.0100, L501.4020, L501.2450, L500.2500 #### [facility] [address] [place], [address] IG% 0.100 Normal 0.0-0.9 [facility] Comment on above: Result Comment: IG% - Immature Granulocytes (promyelocytes, myelocytes and metamyelocytes) > 1% indicates that a LEFT SHIFT is Present. Performed By: #### L 500.3400, L100.0100, L501.4020, L501.2450, L500.2500 #### [facility] [address] [place], [address] Lymphocytes/100 WBC (Bld) 40.9 % Normal 19-41 [facility] Comment on above: Performed By: #### L 500.3400, L100.0100, L501.4020, L501.2450, L500.2500 #### [facility] [address] [place], [address] MCH (RBC) [Entitic mass] 30.1 pg Normal 27.0-32.0 [facility] Comment on above: Performed By: #### L 500.3400, L100.0100, L501.4020, L501.2450, L500.2500 #### [facility] [address] [place], [address] MCHC (RBC) [Mass/Vol] 33.3 g/dL Normal 32-36 [facility] Comment on above: Performed By: #### L 500.3400, L100.0100, L501.4020, L501.2450, L500.2500 #### [facility] [address] [place], [address] MCV (RBC) [Entitic vol] 90.2 fL Normal 81-99 [facility] Comment on above: Performed By: #### L 500.3400, L100.0100, L501.4020, L501.2450, L500.2500 #### [facility] [address] [place], [address] Monocytes/100 WBC (Bld) 4.6 % Normal 0-10 [facility] Comment on above: Performed By: #### L 500.3400, L100.0100, L501.4020, L501.2450, L500.2500 #### [facility] [address] [place], [address] Neutrophils/100 WBC (Bld) 51.7 % Normal 47-70 [facility] Comment on above: Performed By: #### L 500.3400, L100.0100, L501.4020, L501.2450, L500.2500 #### [facility] [address] [place], [address] Nucleated RBC (Bld) [#/Vol] 0 10*3/uL Normal 0-5 [facility] Comment on above: Performed By: #### L 500.3400, L100.0100, L501.4020, L501.2450, L500.2500 #### [facility] [address] [place], [address] Platelet mean volume (Bld) [Entitic vol] 9.9 fL Normal 6.2-12.0 [facility] Comment on above: Performed By: #### L 500.3400, L100.0100, L501.4020, L501.2450, L500.2500 #### [facility] [address] [place], [address] Platelets (Bld) [#/Vol] 259 10*3/uL Normal 150-450 [facility] Comment on above: Performed By: #### L 500.3400, L100.0100, L501.4020, L501.2450, L500.2500 #### [facility] [address] [place], [address] RBC (Bld) [#/Vol] 4.29 10*6/uL Normal 4.2-5.4 [facility] Comment on above: Performed By: #### L 500.3400, L100.0100, L501.4020, L501.2450, L500.2500 #### [facility] [address] [place], [address] RDW SD 44.6 fl High 35.1-43.9 [facility] Comment on above: Performed By: #### L 500.3400, L100.0100, L501.4020, L501.2450, L500.2500 #### [facility] [address] [place], [address] WBC (Bld) [#/Vol] 6.8 10*3/uL Normal 4.4-11.0 [facility] Comment on above: Performed By: #### L 500.3400, L100.0100, L501.4020, L501.2450, L500.2500 #### [facility] [address] [place], [address] CTA Chest W/WO Contraston CTA Chest W/WO Contrast [facility] Imaging Services [address] [place] [address] CTA Chest W/WO Contrast MR#: [id number] Acct: [id number] Name: LUIZA GALO Rep #: [id number] : 1940 F 83 From: Jose Hatfield PCP: Dr. Rosalind Rubalcava MD Status: ADM IN Study: CTA Chest W/WO Contrast Date of Exam: 04/01/24 Exam# [id number] Ordering Dr: Markel Sotomayor [employer] [id number] EXAM: CT ANGIOGRAPHY CHEST WITHOUT AND WITH INTRAVENOUS CONTRAST CLINICAL INDICATION: Dissection TECHNIQUE: Helically acquired angiography images were obtained of the chest without and with intravenous contrast. This CT exam was performed using one or more of the following dose reduction techniques: automated exposure control, adjustment of the mA and/or kV according to patient size, and/or use of iterative reconstruction technique. MIP reconstructed images were created and reviewed. CONTRAST: IV 75mL Isovue-370 RADIATION DOSE: CTDIvol = 15.92 mGy, DLP = 628.95 mGy-cm COMPARISON: No relevant prior studies available. FINDINGS: PULMONARY ARTERIES: Unremarkable. No demonstrated pulmonary embolism or arterial dissection. AORTA: There is atherosclerotic calcification of the aortic arch with tortuosity and elongation of the aortic arch and descending thoracic aorta. Normal in caliber. No evidence of dissection. GREAT VESSELS OF AORTIC ARCH: Unremarkable. Normal in caliber. No evidence of dissection. LUNGS AND PLEURAL SPACES: Unremarkable. No mass. No consolidation or edema. No pleural effusion or thickening. No pneumothorax. HEART: There are calcifications of the coronary arteries. Heart size is normal. No pericardial effusion. MEDIASTINUM: Unremarkable. No mediastinal or hilar adenopathy. Esophagus is unremarkable. No hiatal hernia. THYROID: Unremarkable. No thyroid lesions. BONES/JOINTS: There are degenerative changes of the shoulders. There are multi-level degenerative changes of the thoracic spine. No suspicious lytic or blastic abnormality. GALLBLADDER AND BILE DUCTS: Cholecystectomy changes. Median sternotomy wires. OTHER FINDINGS: Post-processing of the images was performed, with axial imaging and 3D reconstruction. MIPS images were obtained. CT/CTA Chest W/WO Contrast IMPRESSION: No demonstrated pulmonary embolism or arterial dissection. Electronically Signed: Jose Queen MD at 20:09 EDT Reading Location ID and State: [facility] / [place] , Service support , CC: ZAID Sotomayor; Dr. Rosalind Rubalcava MD Loan Interviewer: Signed Normal [facility] Chest 1 View (Portable)on Chest 1 View (Portable) [facility] Imaging Services [address] [place] [address] [id number] Chest 1 View (Portable) MR#: [id number] Acct: [id number] Name: LUIZA GALO Rep #: [id number] : 1940 F 83 From: Jose Hatfield PCP: Dr. Rosalind Rubalcava MD Status: PRE ER Study: Chest 1 View (Portable) Date of Exam: 04/01/24 Exam# [id number] Ordering Dr: Markel Sotomayor [id number] STUDY: XR Chest 1 View 04/01/2024 3:21 PM REASON FOR EXAM: Female, 83 years old. chest pain COMPARISON: None TECHNIQUE: XR Chest 1 View FINDINGS: There is no demonstrated pleural abnormality. There are multiple median sternotomy wires. Enlarged heart size. Normal mediastinum. Normal omar. Prominent appearing increased interstitial lung markings. Normal visualized pulmonary arteries. There is atherosclerotic calcification of the aortic arch with tortuosity. There are diffuse degenerative changes of the visualized thoracic spine. There is degenerative osteoarthritis of the bilateral shoulders. There are no acute findings of the upper abdomen. RAD/Chest 1 View (Portable) IMPRESSION: There are no acute findings. Electronically Signed: Jose Queen MD at 15:44 EDT Reading Location ID and State: [facility] / [place] , Service support , CC: ZAID Sotomayor; Dr. Rosalind Rubalcava MD Loan Interviewer: Signed Normal [facility] Comprehensive Metabolic Prof ilon 04-01-2024 Albumin [Mass/Vol] 3.4 g/dL Normal 3.2-5.0 [facility] Comment on above: Order Comment: 1Y Performed By: #### L 500.3400, L100.0100, L501.4020, L501.2450, L500.2500 #### [facility] [address] [place], [address] Albumin/Globulin [Mass ratio] 0.8 {ratio} Low 0.9-2.4 [facility] Comment on above: Order Comment: 1Y Performed By: #### L 500.3400, L100.0100, L501.4020, L501.2450, L500.2500 #### [facility] [address] [place], [address] ALK P 110 U/L Normal 45-117 [facility] Comment on above: Order Comment: 1Y Performed By: #### L 500.3400, L100.0100, L501.4020, L501.2450, L500.2500 #### [facility] [address] [place], [address] ALT [Catalytic activity/Vol] 24 U/L Normal 13-56 [facility] Comment on above: Order Comment: 1Y Performed By: #### L 500.3400, L100.0100, L501.4020, L501.2450, L500.2500 #### [facility] [address] [place], [address] AST [Catalytic activity/Vol] 27 U/L Normal 15-37 [facility] Comment on above: Order Comment: 1Y Result Comment: Slig ht Hemolysis, Result may be falsely increased. Performed By: #### L 500.3400, L100.0100, L501.4020, L501.2450, L500.2500 #### [facility] [address] [place], [address] Bilirubin [Mass/Vol] 0.30 mg/dL Normal 0.20-1.00 [facility] Comment on above: Order Comment: 1Y Result Comment: For patients on eltrombopag therapy, use of Dimension Pierre Part TBIL is not recommended. Performed By: #### L 500.3400, L100.0100, L501.4020, L501.2450, L500.2500 #### [facility] [address] [place], [address] BUN/CRE 14.4 RATIO Normal 10-20 [facility] Comment on above: Order Comment: 1Y Performed By: #### L 500.3400, L100.0100, L501.4020, L501.2450, L500.2500 #### [facility] [address] [place], [address] CA,Total 9.3 mg/dL Normal 8.5-10.1 [facility] Comment on above: Order Comment: 1Y Performed By: #### L 500.3400, L100.0100, L501.4020, L501.2450, L500.2500 #### [facility] [address] [place], [address] Chloride [Moles/Vol] 105 mmol/L Normal 98-107 [facility] Comment on above: Order Comment: 1Y Performed By: #### L 500.3400, L100.0100, L501.4020, L501.2450, L500.2500 #### [facility] [address] [place], [address] CO2 [Moles/Vol] 31.0 mmol/L Normal 21.0-32.0 [facility] Comment on above: Order Comment: 1Y Performed By: #### L 500.3400, L100.0100, L501.4020, L501.2450, L500.2500 #### [facility] [address] [place], [address] Creatinine [Mass/Vol] 1.11 mg/dL High 0.55-1.02 [facility] Comment on above: Order Comment: 1Y Result Comment: The validity of the calculated GFR GFRAA in patients over 70 years has not been determined. Clinical correlation is essential. Performed By: #### L 500.3400, L100.0100, L501.4020, L501.2450, L500.2500 #### [facility] [address] [place], [address] EST GFR - AA 61 mL/min Normal >60 [facility] Comment on above: Order Comment: 1Y Result Comment: Afri can [place] GFR Calc Performed By: #### L 500.3400, L100.0100, L501.4020, L501.2450, L500.2500 #### [facility] [address] [place], [address] GAP 4 Low 5-15 [facility] Comment on above: Order Comment: 1Y Performed By: #### L 500.3400, L100.0100, L501.4020, L501.2450, L500.2500 #### [facility] [address] [place], [address] GFR/1.73 sq M.predicted among non-blacks MDRD (S/P/Bld) [Vol rate/Area] 50 mL/min/{1.73_m2} Low >60 [facility] Comment on above: Order Comment: 1Y Result Comment: Non- GFR Calc Performed By: #### L 500.3400, L100.0100, L501.4020, L501.2450, L500.2500 #### [facility] [address] [place], [address] Globulin (S) [Mass/Vol] 4.2 g/dL Normal 2.2-4.2 [facility] Comment on above: Order Comment: 1Y Performed By: #### L 500.3400, L100.0100, L501.4020, L501.2450, L500.2500 #### [facility] [address] [place], [address] Glucose [Mass/Vol] 246 mg/dL High 74-106 [facility] Comment on above: Order Comment: 1Y Result Comment: Gluc ose result greater than or equal to 200 mg/dL suggests DIABETES MELLITUS per A.D.A. criteria. Performed By: #### L 500.3400, L100.0100, L501.4020, L501.2450, L500.2500 #### [facility] [address] [place], [address] Potassium [Moles/Vol] 4.3 mmol/L Normal 3.5-5.1 [facility] Comment on above: Order Comment: 1Y Result Comment: Slig ht Hemolysis, Result may be falsely increased. Performed By: #### L 500.3400, L100.0100, L501.4020, L501.2450, L500.2500 #### [facility] [address] [place], [address] Sodium [Moles/Vol] 140 mmol/L Normal 136-145 [facility] Comment on above: Order Comment: 1Y Performed By: #### L 500.3400, L100.0100, L501.4020, L501.2450, L500.2500 #### [facility] [address] [place], [address] T PROT 7.6 g/dL Normal 6.4-8.2 [facility] Comment on above: Order Comment: 1Y Performed By: #### L 500.3400, L100.0100, L501.4020, L501.2450, L500.2500 #### [facility] [address] [place], [address] Urea nitrogen [Mass/Vol] 16 mg/dL Normal 7-18 [facility] Comment on above: Order Comment: 1Y Performed By: #### L 500.3400, L100.0100, L501.4020, L501.2450, L500.2500 #### [facility] [address] [place], [address] Emergency Department Summary on 04-01-2024 Emergency Department Summary [facility] Medical Records Department [address] [place] [address] Emergency Department Summary 04/01/24 MR#: [id number] Acct: [id number] Name: LUIZA GALO Rep #: [id number] : 1940 83 From: Markel Sotomayor [employer] PCP: Dr. Rosalind Rubalcava MD Status:ADM BJ Location: [address] History of Present Illness Chief Complaint: Chest Pain Narrative Narrative: Patient is on 83-year-old female with history of diabetes hypertension hyperlipidemia, history of CABG who is on Eliquis for atrial fibrillation presenting to the emergency department for left-sided back, chest pain that started while she was playing bingo 1 hour prior to arrival. Patient over the last week states has been having some abdominal cramping, some nausea however no vomiting. She did see her physician 2 days ago for this. Patient did not perform her usual activities throughout the week secondary not feeling well. However she did play bingo today, this is when the back pain/chest pain started. She does have nitro that she is allowed to take as needed however she did not take any. Patient describes the pain as a pressure/intermittent sharp sensation. [facility] Medical History Ascending cholangitis Immunosuppression due to drug therapy Former tobacco use Anxiety and depression History of left heart catheterization (LHC) ( 01/20/21) Paroxysmal atrial fibrillation Essential hypertension Atherosclerosis of coronary artery of [place] heart without angina pectoris MCFP (current) use of anticoagulants Bradycardia Stroke Dysphagia Morbid obesity Osteoarthritis GERD (gastroesophageal reflux disease) Pulmonary embolism Hyperlipidemia MARIVEL (obstructive sleep apnea) Diabetes mellitus Home Medications ???Medication ???Instructions ???Recorded ???Last Taken ???Type atorvastatin 40 mg tablet 40 mg PO QDAY cholesterol #30 tabs 03/02/18 05/17/23 Rx alprazolam 0.5 mg tablet 0.5 mg PO 4X/DAY anxiety 11/23/19 05/12/23 History montelukast 10 mg tablet 10 mg PO DAILY allergies 12/29/20 Unknown History BP cuff #1 ea 01/20/22 Unknown Rx cholecalciferol (vitamin D3) 125 125 mcg PO DAILY vitamin 01/20/22 Unknown History mcg (5,000 unit) capsule acetaminophen 500 mg tablet 1,000 mg PO Q4H PRN pain 05/19/22 Unknown History (Tylenol Extra Strength) ropinirole 1 mg tablet 2 mg PO BID pain 05/19/22 Unknown History guselkumab 100 mg/mL subcutaneous 100 mg subcut .monthly psoriasis 08/14/23 Unknown History syringe (Tremfya) losartan 100 mg tablet 25 mg PO DAILY BP 08/14/23 Unknown History trazodone 150 mg tablet 150 mg PO QHS sleep 10/24/23 Unknown History apixaban 5 mg tablet (Eliquis) 5 mg PO BID blood thinner #180 tabs 10/25/23 Unknown Rx hydrocodone-acetaminoph en 5-325mg 1 tab PO 4X/DAY PRN PRN pain 11/20/23 Unknown History 5mg-325mg insulin degludec 100 unit/mL 25 unit subcut DAILY diabetes 04/01/24 Unknown History subcutaneous solution (Tresiba U-100 Insulin) metoprolol succinate 25 mg 12.5 mg PO DAILY blood pressure 04/01/24 Unknown History tablet,extended release 24 hr Allergy/AdvReac Type Severity Reaction Status Date / Time Anesthetics - Amide Type - Allergy NEEDS Verified 04/01/24 14:39 Select A FOLLOW-UP Anesthetics - Tyra Type- Allergy NEEDS Verified 04/01/24 14:39 Parabens FOLLOW-UP latex Allergy Unknown Verified 04/01/24 14:39 promethazine (From Phenergan) Allergy PT UNSURE Verified 04/01/24 15:34 OF REACTION sitagliptin phosphate (From Allergy Unknown Verified 04/01/24 15:34 Januvia) insulin isophane (NPH) AdvReac Severe heart burn Verified 04/01/24 15:34 insulin degludec (From AdvReac Mild Nausea Verified 04/01/24 14:39 Xultophy 100/3.6) liraglutide (From Xultophy AdvReac Mild Nausea Verified 04/01/24 14:39 100/3.6) atorvastatin (From Lipitor) AdvReac Unknown Unknown Verified 04/01/24 14:39 codeine AdvReac Unknown Unknown Verified 04/01/24 15:34 tizanidine AdvReac Unknown Unknown Verified 04/01/24 14:39 Family History Father CAD (coronary artery disease) Mother CAD (coronary artery disease) Brother CAD (coronary artery disease) Surgical History Hx of CABG History of bilateral cataract extraction History of knee surgery History of cholecystectomy History of total hysterectomy H/O coronary artery bypass surgery ( 06/01/17) Social History household members: none housing: assisted living facility Smoking Status: Former smoker how long ago did patient quit smokin years ago second hand exposure: Yes alcohol intake: never substance use type: does not use caffeine (more content not included)... Normal [facility] H AND P Exam - Hospitaliston 04-01-2024 H&P Exam - Hospitalist [facility] Medical Records Department [address] [place] [address] H P Exam - Hospitalist 04/01/24 1856 MR#: [id number] Acct: [id number] Name: LUIZA GALO Rep #: [id number] : 1940 83 From: Fausto Wright MD PCP: Dr. Rosalind Rubalcava MD Status:ADM IN [id number] - General General Date of Service: 04/01/24 Chief Complaint: Chest pain HPI Narrative LUIZA GALO, is a 83 F with a significant history of former tobacco abuse; chronic lower back pain; CABG in 2017; HTN; paroxysmal A-fib; DVT; and diabetes mellitus who lives at a group home presenting with left-sided chest pain that started while playing bingo. She describes the left- sided chest pain as a pressure. The pain radiates to the same side of her left back. The pain was as severe as 10 out of 10. Associated with her symptoms is shortness of breath. Of note because of bradycardia patient's beta-blockers are being titrated down. At the emergency department she was found to have severely elevated blood pressures. [facility] Medical History Ascending cholangitis Immunosuppression due to drug therapy Former tobacco use Anxiety and depression History of left heart catheterization (LHC) ( 01/20/21) Paroxysmal atrial fibrillation Essential hypertension Atherosclerosis of coronary artery of [place] heart without angina pectoris 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 Bradycardia Stroke Dysphagia Morbid obesity Osteoarthritis GERD (gastroesophageal reflux disease) Pulmonary embolism Hyperlipidemia MARIVEL (obstructive sleep apnea) Diabetes mellitus Home Medications ???Medication ???Instructions ???Recorded ???Last Taken ???Type atorvastatin 40 mg tablet 40 mg PO QDAY cholesterol #30 tabs 03/02/18 05/17/23 Rx alprazolam 0.5 mg tablet 0.5 mg PO 4X/DAY anxiety 11/23/19 05/12/23 History montelukast 10 mg tablet 10 mg PO DAILY allergies 12/29/20 Unknown History BP cuff #1 ea 01/20/22 Unknown Rx cholecalciferol (vitamin D3) 125 125 mcg PO DAILY vitamin 01/20/22 Unknown History mcg (5,000 unit) capsule escitalopram oxalate 10 mg tablet 10 mg PO DAILY depression 01/20/22 Unknown History (Lexapro) acetaminophen 500 mg tablet 1,000 mg PO Q4H PRN pain 05/19/22 Unknown History (Tylenol Extra Strength) ropinirole 1 mg tablet 2 mg PO BID pain 05/19/22 Unknown History guselkumab 100 mg/mL subcutaneous 100 mg subcut .monthly 08/14/23 Unknown History syringe (Tremfya) losartan 100 mg tablet 25 mg PO DAILY BP 08/14/23 Unknown History trazodone 150 mg tablet 300 mg PO QHS sleep 10/24/23 Unknown History apixaban 5 mg tablet (Eliquis) 5 mg PO BID blood thinner #180 tabs 10/25/23 Unknown Rx tizanidine 4 mg capsule 4 mg PO Q8H PRN muscle spasticity 11/10/23 Unknown History hydrocodone-acetaminoph en 5-325mg 1 tab PO Q12H 11/20/23 Unknown History 5mg-325mg aspirin 81 mg tablet,delayed 81 mg PO DAILY 04/01/24 Unknown History release furosemide 20 mg tablet 20 mg PO DAILY 04/01/24 Unknown History metoprolol succinate 25 mg 25 mg PO DAILY 04/01/24 Unknown History tablet,extended release 24 hr topiramate 50 mg tablet (Topamax) 50 mg PO BID 04/01/24 Unknown History Allergy/AdvReac Type Severity Reaction Status Date / Time Anesthetics - Amide Type - Allergy NEEDS Verified 04/01/24 14:39 Select A FOLLOW-UP Anesthetics - Tyra Type- Allergy NEEDS Verified 04/01/24 14:39 Parabens FOLLOW-UP latex Allergy Unknown Verified 04/01/24 14:39 promethazine (From Phenergan) Allergy PT UNSURE Verified 04/01/24 15:34 OF REACTION sitagliptin phosphate (From Allergy Unknown Verified 04/01/24 15:34 Januvia) insulin isophane (NPH) AdvReac Severe heart burn Verified 04/01/24 15:34 insulin degludec (From AdvReac Mild Nausea Verified 04/01/24 14:39 Xultophy 100/3.6) liraglutide (From Xultophy AdvReac Mild Nausea Verified 04/01/24 14:39 100/3.6) atorvastatin (From Lipitor) AdvReac Unknown Unknown Verified 04/01/24 14:39 codeine AdvReac Unknown Unknown Verified 04/01/24 15:34 tizanidine AdvReac Unknown Unknown Verified 04/01/24 14:39 Family History Father CAD (coronary artery disease) Mother CAD (coronary artery disease) Brother CAD (coronary artery disease) Surgical History Hx of CABG History of bilateral cataract extraction History of knee surgery History of cholecystectomy History of total hysterectomy H/O coronary artery bypass surgery ( 06/01/17) Social History household members: none housing: assisted living facility Smoking Status: Former smoker how long ago did patient quit smokin years ago sec (more content not included)... Normal [facility] L501.4020on 04-01-2024 TROPONIN-I HS 20 pg/mL Normal 3.0-54.0 [facility] Comment on above: Order Comment: 'TROP ' Serial specimen #1, #2 or #3: 3 Result Comment: Plea se Note: New Test Units and Gender Specific Reference Ranges. For more information see Policy Stat Procedure Pierre Part High Sensitivity Troponin (TNIH) and attachments. Performed By: #### L 501.080 #### [facility] [address] [place], [place], [id number] TROPONIN-I HS 14 pg/mL Normal 3.0-54.0 [facility] Comment on above: Result Comment: Plea se Note: New Test Units and Gender Specific Reference Ranges. For more information see Policy Stat Procedure Pierre Part High Sensitivity Troponin (TNIH) and attachments. Performed By: #### L 501.080 #### [facility] [address] [place], [address] L501.5425on 04-01-2024 TROPONIN-I HS 13 pg/mL Normal 3.0-54.0 [facility] Comment on above: Order Comment: 1Y Result Comment: Plea se Note: New Test Units and Gender Specific Reference Ranges. For more information see Policy Stat Procedure Pierre Part High Sensitivity Troponin (TNIH) and attachments. Performed By: #### L 500.3400, L100.0100, L501.4020, L501.2450, L500.2500 #### [facility] [address] [place], [address] Lipaseon 04-01-2024 Lipase [Catalytic activity/Vol] 20 U/L Normal 13-75 [facility] Comment on above: Order Comment: 1Y Result Comment: Bobby hickman note: LIPASE revised reference range effective 23. New Lipase methodology. Expected to produce lower values than the previous assay method. NEW Reference Range: 13 - 75 U/L Performed By: #### L 500.3400, L100.0100, L501.4020, L501.2450, L500.2500 #### [facility] [address] [place], [address] .ANATon 03-07-2024 CRISTEL Pattern 1 Homogeneous Normal [facility]) Comment on above: Result Comment: At [facility], an CRISTEL titer of less than 160 is not considered suggestive of significant rheumatoid disease. If clinical suspicion is high, suggest repeat testing in 1-2 months. Performed By: #### C BC, GFR, A1C, ADIFF, CRP, TSH, CMP, ANEU, ESR #### [address] [address] CRISTEL Titer 1 80 Normal [facility] ([place]) Comment on above: Performed By: #### C BC, GFR, A1C, ADIFF, CRP, TSH, CMP, ANEU, ESR #### [address] [address] ANAon 03-07-2024 CRISTEL See Titer Normal Neg 40 [facility] ([place]) Comment on above: Result Comment: CRISTEL Screen and Titer methodology is an immunofluorescent technique utilizing Hep2 Substrate. Performed By: #### C BC, GFR, A1C, ADIFF, CRP, TSH, CMP, ANEU, ESR #### [address] [address] .GFRon 03-06-2024 GFR 62 ml/min/1.73sqm Normal [facility] ([place]) Comment on above: Result Comment: GFR Population mean for , Non- Americans Ages 20-29 = 116 mL/min/1.73 sq.m. Ages 30-39 = 107 mL/min/1.73 sq.m. Ages 40-49 = 99 mL/min/1.73 sq.m. Ages 50-59 = 93 mL/min/1.73 sq.m. Ages 60-69 = 85 mL/min/1.73 sq.m. Ages 70+ = 75 mL/min/1.73 sq.m. Chronic Kidney Disease: Less than 60 mL/min/1.73 square meters End Stage Renal Disease: Less than 15 mL/min/1.73 square meters Performed By: #### C BC, GFR, A1C, ADIFF, CRP, TSH, CMP, ANEU, ESR #### [address] [address] GFR Non- 51 ml/min/1.73sqm Normal [facility] ([place]) Comment on above: Result Comment: GFR Population mean for , Non- Americans Ages 20-29 = 116 mL/min/1.73 sq.m. Ages 30-39 = 107 mL/min/1.73 sq.m. Ages 40-49 = 99 mL/min/1.73 sq.m. Ages 50-59 = 93 mL/min/1.73 sq.m. Ages 60-69 = 85 mL/min/1.73 sq.m. Ages 70+ = 75 mL/min/1.73 sq.m. Chronic Kidney Disease: Less than 60 mL/min/1.73 square meters End Stage Renal Disease: Less than 15 mL/min/1.73 square meters Performed By: #### C BC, GFR, A1C, ADIFF, CRP, TSH, CMP, ANEU, ESR #### [address] [address] A1Con 03-06-2024 HbA1c (Bld) [Mass fraction] 7.5 % High 4.3-6.4 [facility] ([place]) Comment on above: Performed By: #### C BC, GFR, A1C, ADIFF, CRP, TSH, CMP, ANEU, ESR #### [address] [address] CMPon 03-06-2024 Albumin Level 3.1 G/dL Low 3.4-4.8 [facility] ([place]) Comment on above: Performed By: #### C BC, GFR, A1C, ADIFF, CRP, TSH, CMP, ANEU, ESR #### [address] [address] Albumin/Globulin [Mass ratio] 0.8 {ratio} Low 1.1-2.5 [facility] ([place]) Comment on above: Performed By: #### C BC, GFR, A1C, ADIFF, CRP, TSH, CMP, ANEU, ESR #### [address] [address] ALP [Catalytic activity/Vol] 113 U/L Normal 40-135 [facility] ([place]) Comment on above: Performed By: #### C BC, GFR, A1C, ADIFF, CRP, TSH, CMP, ANEU, ESR #### [address] [address] ALT [Catalytic activity/Vol] 24 U/L Normal 14-59 [facility] ([place]) Comment on above: Performed By: #### C BC, GFR, A1C, ADIFF, CRP, TSH, CMP, ANEU, ESR #### [address] [address] AST [Catalytic activity/Vol] 19 U/L Normal 10-40 [facility] ([place]) Comment on above: Performed By: #### C BC, GFR, A1C, ADIFF, CRP, TSH, CMP, ANEU, ESR #### [address] [address] Bili Total 0.4 mg/dL Normal 0.2-1.0 [facility] ([place]) Comment on above: Result Comment: Use of this assay is not recommended for patients undergoing treatment with eltrombopag due to the potential for falsely elevated results. Performed By: #### C BC, GFR, A1C, ADIFF, CRP, TSH, CMP, ANEU, ESR #### [address] [address] BUN/Creatinine Ratio 16 ratio Normal 7-27 [facility] ([place]) Comment on above: Performed By: #### C BC, GFR, A1C, ADIFF, CRP, TSH, CMP, ANEU, ESR #### [address] [address] Calcium [Mass/Vol] 9.0 mg/dL Normal 8.4-10.2 [facility] ([place]) Comment on above: Performed By: #### C BC, GFR, A1C, ADIFF, CRP, TSH, CMP, ANEU, ESR #### [address] [address] Chloride [Moles/Vol] 103 mmol/L Normal 98-107 [facility] ([place]) Comment on above: Performed By: #### C BC, GFR, A1C, ADIFF, CRP, TSH, CMP, ANEU, ESR #### [address] [address] CO2 [Moles/Vol] 32 mmol/L High 23-31 [facility] ([place]) Comment on above: Performed By: #### C BC, GFR, A1C, ADIFF, CRP, TSH, CMP, ANEU, ESR #### [address] [address] Creatinine [Mass/Vol] 1.04 mg/dL High 0.55-1.02 [facility] ([place]) Comment on above: Performed By: #### C BC, GFR, A1C, ADIFF, CRP, TSH, CMP, ANEU, ESR #### [address] [address] Electrolyte Balance 10.0 mEq/L Normal 4.0-15.0 [facility] ([place]) Comment on above: Performed By: #### C BC, GFR, A1C, ADIFF, CRP, TSH, CMP, ANEU, ESR #### [address] [address] Globulin 3.7 G/dL Normal [facility] ([place]) Comment on above: Performed By: #### C BC, GFR, A1C, ADIFF, CRP, TSH, CMP, ANEU, ESR #### [address] [address] Glucose [Mass/Vol] 147 mg/dL High 83-110 [facility] ([place]) Comment on above: Performed By: #### C BC, GFR, A1C, ADIFF, CRP, TSH, CMP, ANEU, ESR #### [address] [address] [address] Potassium [Moles/Vol] 3.6 mmol/L Normal 3.5-5.1 [facility] ([place]) Comment on above: Performed By: #### C BC, GFR, A1C, ADIFF, CRP, TSH, CMP, ANEU, ESR #### [address] [address] Sodium [Moles/Vol] 145 mmol/L Normal 136-145 [facility] ([place]) Comment on above: Performed By: #### C BC, GFR, A1C, ADIFF, CRP, TSH, CMP, ANEU, ESR #### [address] [address] Total Protein 6.8 G/dL Normal 6.4-8.2 [facility] ([place]) Comment on above: Performed By: #### C BC, GFR, A1C, ADIFF, CRP, TSH, CMP, ANEU, ESR #### [address] [address] Urea nitrogen [Mass/Vol] 17 mg/dL Normal 7-18 [facility] ([place]) Comment on above: Performed By: #### C BC, GFR, A1C, ADIFF, CRP, TSH, CMP, ANEU, ESR #### [address] [address] CRPon 03-06-2024 C-Reactive Protein 0.1 mg/dL Normal 0.0-0.3 [facility] ([place]) Comment on above: Performed By: #### C BC, GFR, A1C, ADIFF, CRP, TSH, CMP, ANEU, ESR #### [address] [address] ESRon 03-06-2024 Erythrocyte Sed Rate 9 mm/hr Normal 0-30 [facility] ([place]) Comment on above: Performed By: #### C BC, GFR, A1C, ADIFF, CRP, TSH, CMP, ANEU, ESR #### [address] [address] FT3on 03-06-2024 Free T3 [Mass/Vol] 2.44 pg/mL Normal 2.30-4.00 [facility] ([place]) Comment on above: Performed By: #### C BC, GFR, A1C, ADIFF, CRP, TSH, CMP, ANEU, ESR #### [address] [address] FT4on 03-06-2024 Free T4 [Mass/Vol] 0.81 ng/dL Normal 0.76-1.46 [facility] ([place]) Comment on above: Performed By: #### C BC, GFR, A1C, ADIFF, CRP, TSH, CMP, ANEU, ESR #### [address] [address] LIPIDon 03-06-2024 Cholesterol [Mass/Vol] 163 mg/dL Normal 0-200 [facility] ([place]) Comment on above: Result Comment: Chol esterol Reference Interval: Less than 200 Desirable 200-239 Borderline high risk 240 and above High risk Performed By: #### C BC, GFR, A1C, ADIFF, CRP, TSH, CMP, ANEU, ESR #### [address] [address] Cholesterol in HDL [Mass/Vol] 49 mg/dL Normal 40-60 [facility] ([place]) Comment on above: Performed By: #### C BC, GFR, A1C, ADIFF, CRP, TSH, CMP, ANEU, ESR #### [address] [address] Cholesterol in LDL [Mass/Vol] 87 mg/dL Normal 0-130 [facility] ([place]) Comment on above: Performed By: #### C BC, GFR, A1C, ADIFF, CRP, TSH, CMP, ANEU, ESR #### [address] [address] Triglyceride [Mass/Vol] 133 mg/dL Normal 0-150 A [facility] ([place]) Comment on above: Result Comment: Trig lyceride Reference Interval: Less than 150 Normal 150-199 Borderline high risk 200-499 High risk 500 or higher Very high risk Performed By: #### C BC, GFR, A1C, ADIFF, CRP, TSH, CMP, ANEU, ESR #### [place] [id number] TSHon 03-06-2024 TSH Qn 4.52 m[IU]/L High 0.36-3.74 [facility] ([place]) Comment on above: Performed By: #### C BC, GFR, A1C, ADIFF, CRP, TSH, CMP, ANEU, ESR #### [place] [id number] URICon 03-06-2024 Uric Acid Lvl 6.3 mg/dL High 2.6-6.2 [facility] ([place]) Comment on above: Performed By: #### C BC, GFR, A1C, ADIFF, CRP, TSH, CMP, ANEU, ESR #### [address] [address] Absolute lymphocyte countOrd ered By: Katalina Torres on 12-28-2023 Lymphocytes Auto (Unsp spec) [#/Vol] 2.31 10*3/uL 0.83-4.51 [facility] Automated lymphocyte count a s percentage of total leukocytesOrdered By: Katalina Torres on 12-28-2023 Lymphocytes/100 WBC Auto (Unsp spec) 33.3 % 19-41 [facility] Basophil percentageOrdered B y: Katalina Torres on 12-28-2023 Basophils/100 WBC (Bld) 0.6 % 0-1 [facility] Chloride [Moles/Vol] 104 mmol/L 98-107 [facility] Eosinophils/100 WBC (Bld) 1.9 % 0-5 [facility] Glucose [Mass/Vol] 161 mg/dL 74-106 [facility] Comment on above: Fasting Glucose resu lt greater than or equal to 126 mg/dL suggests DIABETES MELLITUS per A.D.A. criteria. Hemoglobin (Bld) [Mass/Vol] 12.4 g/dL 12.0-15.0 [facility] Monocytes/100 WBC (Bld) 4.9 % 0-10 [facility] Neutrophils (Bld) [#/Vol] 4.1 10*3/uL 2.0-7.7 [facility] Neutrophils/100 WBC (Bld) 59.2 % 47-70 [facility] Potassium [Moles/Vol] 3.3 mmol/L 3.5-5.1 [facility] Sodium [Moles/Vol] 140 mmol/L 136-145 [facility] WBC (Bld) [#/Vol] 6.9 10*3/uL 4.4-11.0 [facility] Determination of erythrocyte mean corpuscular volume (MCV)Ordered By: Katalina Torres on 12-28-2023 MCV (RBC) [Entitic vol] 88.6 fL 81-99 [facility] Erythrocyte distribution wid th ratioOrdered By: Katalina Torres on 12-28-2023 Erythrocyte distribution width (RBC) [Ratio] 13.6 % 11.6-14.6 [facility] Erythrocyte distribution wid th standard deviationOrdered By: Katalina Torres on 12-28-2023 Erythrocyte distribution width (RBC) [Entitic vol] 44.2 fL 35.1-43.9 [facility] Hematocrit Auto (Bld) [Volum e fraction]Ordered By: Katalina Torres on 12-28-2023 Hematocrit (Bld) [Volume fraction] 38.8 % 37-47 [facility] Immature granulocytes/100 WB C Auto (Bld)Ordered By: Katalina Torres on 12-28-2023 Immature granulocytes/100 WBC (Bld) 0.100 % 0.0-0.9 [facility] Comment on above: IG% - Immature Granu locytes (promyelocytes, myelocytes and metamyelocytes) > 1% indicates that a LEFT SHIFT is Present. Laboratory - Chemistry and C hemistry - challengeOrdered By: Katalina Torres on 12-28-2023 CO2 [Moles/Vol] 30.0 mmol/L 21.0-32.0 [facility] Natriuretic peptide B (Bld) [Mass/Vol] 61.6 pg/mL 0-100 [facility] Urea nitrogen/Creatinine [Mass ratio] 19.4 mg/mg 10-20 [facility] Laboratory - Hematology and Cell countsOrdered By: Katalina Torres on 12-28-2023 MCH (RBC) [Entitic mass] 28.3 pg 27.0-32.0 [facility] MCHC (RBC) [Mass/Vol] 32.0 g/dL 32-36 [facility] Nucleated RBC/100 WBC (Bld) [Ratio] 0 % 0-5 [facility] Platelet mean volume (Bld) [Entitic vol] 10.5 fL 6.2-12.0 [facility] Platelets (Bld) [#/Vol] 247 10*3/uL 150-450 [facility] No Panel InformationOrdered By: Katalina Torres on 12-28-2023 Estimated GFR (MDRD) Amer 80 mL/min >60 [facility] Comment on above: GFR Calc Estimated GFR (MDRD) Non-Af Amer 66 mL/min >60 [facility] Comment on above: Non- GFR Calc RBC Auto (Bld) [#/Vol]Ordere d By: Katalina Torres on 12-28-2023 RBC (Bld) [#/Vol] 4.38 10*6/uL 4.2-5.4 [facility] Serum or plasma calcium inga urement (mass/volume)Ordered By: Katalina Torres on 12-28-2023 Calcium [Mass/Vol] 9.7 mg/dL 8.5-10.1 [facility] Serum or plasma creatinine m easurement (mass/volume)Ordered By: Katalina Torres on 12-28-2023 Creatinine [Mass/Vol] 0.88 mg/dL 0.55-1.02 [facility] Comment on above: The validity of the calculated GFR & GFRAA in patients over 70 years has not been determined. Clinical correlation is essential. Serum or plasma thyroid stim ulating hormone (TSH) measurement (units/volume)Ordered By: Katalina Torres on 12-28-2023 TSH Qn 3.53 uIU/mL 0.358-3.74 [facility] Serum or plasma thyroxine (T 4) measurement (mass/volume)Ordered By: Katalina Torres on 12-28-2023 T4 [Mass/Vol] 9.0 ug/dL 4.8-13.9 [facility] Serum or plasma urea nitroge n measurement (mass/volume)Ordered By: Katalina Torres on 12-28-2023 Urea nitrogen [Mass/Vol] 17 mg/dL 7-18 [facility] Thin prep Papanicolaou smear with manual screeningOrdered By: Katalina Torres on 12-28-2023 Thin prep Papanicolaou smear with manual screening 6 5-15 [facility] Basophil percentageOrdered B y: Katalina Torres on 12-15-2023 Chloride [Moles/Vol] 107 mmol/L 98-107 [facility] Glucose [Mass/Vol] 153 mg/dL 74-106 [facility] Comment on above: Fasting Glucose resu lt greater than or equal to 126 mg/dL suggests DIABETES MELLITUS per A.D.A. criteria. Potassium [Moles/Vol] 3.8 mmol/L 3.5-5.1 [facility] Sodium [Moles/Vol] 142 mmol/L 136-145 [facility] Laboratory - Chemistry and C hemistry - challengeOrdered By: Katalina Torres on 12-15-2023 CO2 [Moles/Vol] 30.0 mmol/L 21.0-32.0 [facility] Urea nitrogen/Creatinine [Mass ratio] 8.5 mg/mg 10-20 [facility] No Panel InformationOrdered By: Katalina Torres on 12-15-2023 Estimated GFR (MDRD) Amer 73 mL/min >60 [facility] Comment on above: GFR Calc Estimated GFR (MDRD) Non-Af Amer 61 mL/min >60 [facility] Comment on above: Non- GFR Calc Serum or plasma calcium inga urement (mass/volume)Ordered By: Katalina Torres on 12-15-2023 Calcium [Mass/Vol] 9.7 mg/dL 8.5-10.1 [facility] Serum or plasma creatinine m easurement (mass/volume)Ordered By: Katalina Torres on 12-15-2023 Creatinine [Mass/Vol] 0.94 mg/dL 0.55-1.02 [facility] Comment on above: The validity of the calculated GFR & GFRAA in patients over 70 years has not been determined. Clinical correlation is essential. Serum or plasma urea nitroge n measurement (mass/volume)Ordered By: Katalina Torres on 12-15-2023 Urea nitrogen [Mass/Vol] 8 mg/dL - [facility] Thin prep Papanicolaou smear with manual screeningOrdered By: Katalina Torres on 12-15-2023 Thin prep Papanicolaou smear with manual screening 5 - [facility] Absolute lymphocyte countOrd ered By: Lesley Lopez on 11-20-2023 Lymphocytes Auto (Unsp spec) [#/Vol] 2.64 10*3/uL 0.83-4.51 [facility] Activated partial thrombopla stin time (aPTT) in platelet poor plasma by coagulation aOrdered By: Lesley Lopez on 11-20-2023 aPTT Coag (PPP) [Time] 31.8 s 24.1-36.2 [facility] Automated lymphocyte count a s percentage of total leukocytesOrdered By: Lesley Lopez on 11-20-2023 Lymphocytes/100 WBC Auto (Unsp spec) 38.0 % 19-41 [facility] Basophil percentageOrdered B y: Lesley Lopez on 11-20-2023 Basophils/100 WBC (Bld) 0.6 % 0-1 [facility] Chloride [Moles/Vol] 109 mmol/L 98-107 [facility] Eosinophils/100 WBC (Bld) 1.9 % 0-5 [facility] Glucose [Mass/Vol] 169 mg/dL 74-106 [facility] Comment on above: Fasting Glucose resu lt greater than or equal to 126 mg/dL suggests DIABETES MELLITUS per A.D.A. criteria. Hemoglobin (Bld) [Mass/Vol] 11.4 g/dL 12.0-15.0 [facility] Monocytes/100 WBC (Bld) 5.8 % 0-10 [facility] Neutrophils (Bld) [#/Vol] 3.7 10*3/uL 2.0-7.7 [facility] Neutrophils/100 WBC (Bld) 53.4 % 47-70 [facility] Potassium [Moles/Vol] 4.2 mmol/L 3.5-5.1 [facility] Sodium [Moles/Vol] 141 mmol/L 136-145 [facility] WBC (Bld) [#/Vol] 6.9 10*3/uL 4.4-11.0 [facility] Determination of erythrocyte mean corpuscular volume (MCV)Ordered By: Lesley Lopez on 11-20-2023 MCV (RBC) [Entitic vol] 88.9 fL 81-99 [facility] Erythrocyte distribution wid th ratioOrdered By: Lesley Lopez on 11-20-2023 Erythrocyte distribution width (RBC) [Ratio] 14.2 % 11.6-14.6 [facility] Erythrocyte distribution wid th standard deviationOrdered By: Lesley Lopez on 11-20-2023 Erythrocyte distribution width (RBC) [Entitic vol] 45.7 fL 35.1-43.9 [facility] Hematocrit Auto (Bld) [Volum e fraction]Ordered By: Lesley Lopez on 11-20-2023 Hematocrit (Bld) [Volume fraction] 36.2 % 37-47 [facility] Immature granulocytes/100 WB C Auto (Bld)Ordered By: Lesley Lopez on 11-20-2023 Immature granulocytes/100 WBC (Bld) 0.300 % 0.0-0.9 [facility] Comment on above: IG% - Immature Granu locytes (promyelocytes, myelocytes and metamyelocytes) > 1% indicates that a LEFT SHIFT is Present. Laboratory - Chemistry and C hemistry - challengeOrdered By: Lesley Lopez on 11-20-2023 CO2 [Moles/Vol] 29.0 mmol/L 21.0-32.0 [facility] Urea nitrogen/Creatinine [Mass ratio] 16.0 mg/mg 10-20 [facility] Laboratory - CoagulationOrde red By: Lesley Lopez on 11-20-2023 INR Coag (Bld) [Relative time] 1.2 {INR} [facility] PT Coag (PPP) [Time] 15.6 s 11.7-14.9 [facility] Laboratory - Hematology and Cell countsOrdered By: Lesley Lopez on 11-20-2023 MCH (RBC) [Entitic mass] 28.0 pg 27.0-32.0 [facility] MCHC (RBC) [Mass/Vol] 31.5 g/dL 32-36 [facility] Nucleated RBC/100 WBC (Bld) [Ratio] 0 % 0-5 [facility] Platelet mean volume (Bld) [Entitic vol] 10.6 fL 6.2-12.0 [facility] Platelets (Bld) [#/Vol] 222 10*3/uL 150-450 [facility] No Panel InformationOrdered By: Lesley Lopez on 11-20-2023 Estimated Creatinine Clearance Calc 40.41 ml/min [facility] Estimated GFR (MDRD) Amer 64 mL/min >60 [facility] Comment on above: GFR Calc Estimated GFR (MDRD) Non-Af Amer 53 mL/min >60 [facility] Comment on above: Non- GFR Calc RBC Auto (Bld) [#/Vol]Ordere d By: Lesley Lopez on 11-20-2023 RBC (Bld) [#/Vol] 4.07 10*6/uL 4.2-5.4 [facility] Serum or plasma calcium inga urement (mass/volume)Ordered By: Lesley Lopez on 11-20-2023 Calcium [Mass/Vol] 9.1 mg/dL 8.5-10.1 [facility] Serum or plasma creatinine m easurement (mass/volume)Ordered By: Lesley Lopez on 11-20-2023 Creatinine [Mass/Vol] 1.06 mg/dL 0.55-1.02 [facility] Comment on above: The validity of the calculated GFR & GFRAA in patients over 70 years has not been determined. Clinical correlation is essential. Serum or plasma urea nitroge n measurement (mass/volume)Ordered By: Lesley Lopez on 11-20-2023 Urea nitrogen [Mass/Vol] 17 mg/dL 7-18 [facility] Thin prep Papanicolaou smear with manual screeningOrdered By: Lesley Lopez on 11-20-2023 Thin prep Papanicolaou smear with manual screening 3 5-15 [facility] Basophil percentageOrdered B y: Katalina Torres on 11-04-2023 Chloride [Moles/Vol] 106 mmol/L 98-107 [facility] Glucose [Mass/Vol] 98 mg/dL 74-106 [facility] Potassium [Moles/Vol] 4.1 mmol/L 3.5-5.1 [facility] Sodium [Moles/Vol] 137 mmol/L 136-145 [facility] Laboratory - Chemistry and C hemistry - challengeOrdered By: Katalina Torres on 11-04-2023 CO2 [Moles/Vol] 30.0 mmol/L 21.0-32.0 [facility] Urea nitrogen/Creatinine [Mass ratio] 12.7 mg/mg 10-20 [facility] No Panel InformationOrdered By: Katalina Torres on 11-04-2023 Estimated GFR (MDRD) Amer 61 mL/min >60 [facility] Comment on above: GFR Calc Estimated GFR (MDRD) Non-Af Amer 51 mL/min >60 [facility] Comment on above: Non- GFR Calc Serum or plasma calcium inga urement (mass/volume)Ordered By: Katalina Torres on 11-04-2023 Calcium [Mass/Vol] 10.0 mg/dL 8.5-10.1 [facility] Serum or plasma creatinine m easurement (mass/volume)Ordered By: Katalina Torres on 11-04-2023 Creatinine [Mass/Vol] 1.10 mg/dL 0.55-1.02 [facility] Comment on above: The validity of the calculated GFR & GFRAA in patients over 70 years has not been determined. Clinical correlation is essential. Serum or plasma urea nitroge n measurement (mass/volume)Ordered By: Katalina Torres on 11-04-2023 Urea nitrogen [Mass/Vol] 14 mg/dL 7-18 [facility] Thin prep Papanicolaou smear with manual screeningOrdered By: Katalina Torres on 11-04-2023 Thin prep Papanicolaou smear with manual screening 1 5-15 [facility] .Auto Diffon 11-01-2023 Basophil, Absolute 0.0 10 3/mcL Normal 0.0-0.2 [facility] ([place]) Comment on above: Performed By: #### C BC, GFR, A1C, ADIFF, CRP, TSH, CMP, ANEU, ESR #### [address] [address] Basophils/100 WBC (Bld) 0.5 % Normal 0.0-2.5 A [facility] ([place]) Comment on above: Performed By: #### C BC, GFR, A1C, ADIFF, CRP, TSH, CMP, ANEU, ESR #### [address] [address] Eosinophil, Absolute 0.1 10 3/mcL Normal 0.0-0.4 [facility] ([place]) Comment on above: Performed By: #### C BC, GFR, A1C, ADIFF, CRP, TSH, CMP, ANEU, ESR #### [address] [address] Eosinophils/100 WBC (Bld) 1.2 % Normal 0.0-7.0 [facility] ([place]) Comment on above: Performed By: #### C BC, GFR, A1C, ADIFF, CRP, TSH, CMP, ANEU, ESR #### [address] [address] Lymphocyte, Absolute 2.9 10 3/mcL Normal 0.8-3.9 [facility] ([place]) Comment on above: Performed By: #### C BC, GFR, A1C, ADIFF, CRP, TSH, CMP, ANEU, ESR #### [address] [address] Lymphocytes/100 WBC (Bld) 37.6 % Normal 10.0-50.0 [facility] ([place]) Comment on above: Performed By: #### C BC, GFR, A1C, ADIFF, CRP, TSH, CMP, ANEU, ESR #### [address] [address] Monocyte, Absolute 0.3 10 3/mcL Normal 0.2-1.0 [facility] ([place]) Comment on above: Performed By: #### C BC, GFR, A1C, ADIFF, CRP, TSH, CMP, ANEU, ESR #### [address] [address] Monocytes/100 WBC (Bld) 4.2 % Normal 1.7-13.0 A [facility] ([place]) Comment on above: Performed By: #### C BC, GFR, A1C, ADIFF, CRP, TSH, CMP, ANEU, ESR #### [address] [address] Neutrophils/100 WBC (Bld) 56.5 % Normal 37.0-80.0 [facility] ([place]) Comment on above: Performed By: #### C BC, GFR, A1C, ADIFF, CRP, TSH, CMP, ANEU, ESR #### [address] [address] .GFRon 11-01-2023 GFR 63 ml/min/1.73sqm Normal [facility] ([place]) Comment on above: Result Comment: GFR Population mean for , Non- Americans Ages 20-29 = 116 mL/min/1.73 sq.m. Ages 30-39 = 107 mL/min/1.73 sq.m. Ages 40-49 = 99 mL/min/1.73 sq.m. Ages 50-59 = 93 mL/min/1.73 sq.m. Ages 60-69 = 85 mL/min/1.73 sq.m. Ages 70+ = 75 mL/min/1.73 sq.m. Chronic Kidney Disease: Less than 60 mL/min/1.73 square meters End Stage Renal Disease: Less than 15 mL/min/1.73 square meters Performed By: #### C BC, GFR, A1C, ADIFF, CRP, TSH, CMP, ANEU, ESR #### [address] [address] GFR Non- 52 ml/min/1.73sqm Normal [facility] ([place]) Comment on above: Result Comment: GFR Population mean for , Non- Americans Ages 20-29 = 116 mL/min/1.73 sq.m. Ages 30-39 = 107 mL/min/1.73 sq.m. Ages 40-49 = 99 mL/min/1.73 sq.m. Ages 50-59 = 93 mL/min/1.73 sq.m. Ages 60-69 = 85 mL/min/1.73 sq.m. Ages 70+ = 75 mL/min/1.73 sq.m. Chronic Kidney Disease: Less than 60 mL/min/1.73 square meters End Stage Renal Disease: Less than 15 mL/min/1.73 square meters Performed By: #### C BC, GFR, A1C, ADIFF, CRP, TSH, CMP, ANEU, ESR #### [address] [address] .NEUABSon 11-01-2023 Neutrophil, Absolute 4.4 10 3/mcL Normal 2.9-6.2 [facility] ([place]) Comment on above: Performed By: #### C BC, GFR, A1C, ADIFF, CRP, TSH, CMP, ANEU, ESR #### [address] [address] A1Con 11-01-2023 HbA1c (Bld) [Mass fraction] 5.9 % Normal 4.3-6.4 [facility] ([place]) Comment on above: Performed By: #### C BC, GFR, A1C, ADIFF, CRP, TSH, CMP, ANEU, ESR #### [address] [address] CBCon 11-01-2023 Erythrocyte distribution width (RBC) [Ratio] 15.4 % High 11.5-14.5 [facility] ([place]) Comment on above: Performed By: #### C BC, GFR, A1C, ADIFF, CRP, TSH, CMP, ANEU, ESR #### [address] [address] Hematocrit (Bld) [Volume fraction] 39.7 % Normal 37.0-47.0 [facility] ([place]) Comment on above: Performed By: #### C BC, GFR, A1C, ADIFF, CRP, TSH, CMP, ANEU, ESR #### [address] [address] Hgb 13.3 G/dL Normal 12.0-16.0 [facility] ([place]) Comment on above: Performed By: #### C BC, GFR, A1C, ADIFF, CRP, TSH, CMP, ANEU, ESR #### [address] [address] MCH (RBC) [Entitic mass] 28.3 pg Normal 27.0-31.2 [facility] ([place]) Comment on above: Performed By: #### C BC, GFR, A1C, ADIFF, CRP, TSH, CMP, ANEU, ESR #### [address] [address] MCHC 33.6 G/dL Normal 33.0-37.0 [facility] ([place]) Comment on above: Performed By: #### C BC, GFR, A1C, ADIFF, CRP, TSH, CMP, ANEU, ESR #### [address] [address] MCV (RBC) [Entitic vol] 84.4 fL Normal 80.0-94.0 A [facility] ([place]) Comment on above: Performed By: #### C BC, GFR, A1C, ADIFF, CRP, TSH, CMP, ANEU, ESR #### [address] [address] Platelet 251 10 3/mcL Normal 130-400 [facility] ([place]) Comment on above: Performed By: #### C BC, GFR, A1C, ADIFF, CRP, TSH, CMP, ANEU, ESR #### [address] [address] Platelet mean volume (Bld) [Entitic vol] 8.7 fL Normal 7.4-10.4 [facility] ([place]) Comment on above: Performed By: #### C BC, GFR, A1C, ADIFF, CRP, TSH, CMP, ANEU, ESR #### [address] [address] RBC 4.70 10 6/mcL Normal 4.20-5.40 [facility] ([place]) Comment on above: Performed By: #### C BC, GFR, A1C, ADIFF, CRP, TSH, CMP, ANEU, ESR #### [address] [address] WBC 7.7 10 3/mcL Normal 4.6-10.8 [facility] ([place]) Comment on above: Performed By: #### C BC, GFR, A1C, ADIFF, CRP, TSH, CMP, ANEU, ESR #### [address] [address] CMPon 11-01-2023 Albumin Level 3.3 G/dL Low 3.4-4.8 [facility] ([place]) Comment on above: Performed By: #### C BC, GFR, A1C, ADIFF, CRP, TSH, CMP, ANEU, ESR #### [address] [address] Albumin/Globulin [Mass ratio] 0.8 {ratio} Low 1.1-2.5 [facility] ([place]) Comment on above: Performed By: #### C BC, GFR, A1C, ADIFF, CRP, TSH, CMP, ANEU, ESR #### [address] [address] ALP [Catalytic activity/Vol] 108 U/L Normal 40-135 [facility] ([place]) Comment on above: Performed By: #### C BC, GFR, A1C, ADIFF, CRP, TSH, CMP, ANEU, ESR #### [address] [address] ALT [Catalytic activity/Vol] 19 U/L Normal 14-59 [facility] ([place]) Comment on above: Performed By: #### C BC, GFR, A1C, ADIFF, CRP, TSH, CMP, ANEU, ESR #### [address] [address] AST [Catalytic activity/Vol] 20 U/L Normal 10-40 [facility] ([place]) Comment on above: Performed By: #### C BC, GFR, A1C, ADIFF, CRP, TSH, CMP, ANEU, ESR #### [address] [address] Bili Total 0.4 mg/dL Normal 0.2-1.0 [facility] ([place]) Comment on above: Result Comment: Use of this assay is not recommended for patients undergoing treatment with eltrombopag due to the potential for falsely elevated results. Performed By: #### C BC, GFR, A1C, ADIFF, CRP, TSH, CMP, ANEU, ESR #### [address] [address] BUN/Creatinine Ratio 13 ratio Normal 7-27 [facility] ([place]) Comment on above: Performed By: #### C BC, GFR, A1C, ADIFF, CRP, TSH, CMP, ANEU, ESR #### [address] [address] Calcium [Mass/Vol] 10.0 mg/dL Normal 8.4-10.2 [facility] ([place]) Comment on above: Performed By: #### C BC, GFR, A1C, ADIFF, CRP, TSH, CMP, ANEU, ESR #### [address] [address] Chloride [Moles/Vol] 102 mmol/L Normal 98-107 [facility] ([place]) Comment on above: Performed By: #### C BC, GFR, A1C, ADIFF, CRP, TSH, CMP, ANEU, ESR #### [address] [address] CO2 [Moles/Vol] 30 mmol/L Normal 23-31 [facility] ([place]) Comment on above: Performed By: #### C BC, GFR, A1C, ADIFF, CRP, TSH, CMP, ANEU, ESR #### [address] [address] Creatinine [Mass/Vol] 1.02 mg/dL Normal 0.55-1.02 [facility] ([place]) Comment on above: Performed By: #### C BC, GFR, A1C, ADIFF, CRP, TSH, CMP, ANEU, ESR #### [address] [address] Electrolyte Balance 9.0 mEq/L Normal 4.0-15.0 [facility] ([place]) Comment on above: Performed By: #### C BC, GFR, A1C, ADIFF, CRP, TSH, CMP, ANEU, ESR #### [address] [address] Globulin 4.3 G/dL Normal [facility] ([place]) Comment on above: Performed By: #### C BC, GFR, A1C, ADIFF, CRP, TSH, CMP, ANEU, ESR #### [address] [address] Glucose [Mass/Vol] 94 mg/dL Normal 83-110 [facility] ([place]) Comment on above: Performed By: #### C BC, GFR, A1C, ADIFF, CRP, TSH, CMP, ANEU, ESR #### [address] [address] Potassium [Moles/Vol] 4.3 mmol/L Normal 3.5-5.1 [facility] ([place]) Comment on above: Performed By: #### C BC, GFR, A1C, ADIFF, CRP, TSH, CMP, ANEU, ESR #### [address] [address] Sodium [Moles/Vol] 141 mmol/L Normal 136-145 [facility] ([place]) Comment on above: Performed By: #### C BC, GFR, A1C, ADIFF, CRP, TSH, CMP, ANEU, ESR #### [address] [address] Total Protein 7.6 G/dL Normal 6.4-8.2 [facility] ([place]) Comment on above: Performed By: #### C BC, GFR, A1C, ADIFF, CRP, TSH, CMP, ANEU, ESR #### [address] [address] Urea nitrogen [Mass/Vol] 13 mg/dL Normal 7-18 [facility] ([place]) Comment on above: Performed By: #### C BC, GFR, A1C, ADIFF, CRP, TSH, CMP, ANEU, ESR #### [address] [address] LIPIDon 11-01-2023 Cholesterol [Mass/Vol] 172 mg/dL Normal 0-200 [facility] ([place]) Comment on above: Result Comment: Chol esterol Reference Interval: Less than 200 Desirable 200-239 Borderline high risk 240 and above High risk Performed By: #### C BC, GFR, A1C, ADIFF, CRP, TSH, CMP, ANEU, ESR #### [address] [address] Cholesterol in HDL [Mass/Vol] 53 mg/dL Normal 40-60 [facility] ([place]) Comment on above: Performed By: #### C BC, GFR, A1C, ADIFF, CRP, TSH, CMP, ANEU, ESR #### [address] [address] Cholesterol in LDL [Mass/Vol] 97 mg/dL Normal 0-130 [facility] ([place]) Comment on above: Performed By: #### C BC, GFR, A1C, ADIFF, CRP, TSH, CMP, ANEU, ESR #### [address] [address] Triglyceride [Mass/Vol] 111 mg/dL Normal 0-150 A [facility] ([place]) Comment on above: Result Comment: Trig lyceride Reference Interval: Less than 150 Normal 150-199 Borderline high risk 200-499 High risk 500 or higher Very high risk Performed By: #### C BC, GFR, A1C, ADIFF, CRP, TSH, CMP, ANEU, ESR #### [address] [address] Absolute lymphocyte countOrd ered By: Katalina Torres on 10-24-2023 Lymphocytes Auto (Unsp spec) [#/Vol] 2.52 10*3/uL 0.83-4.51 [facility] Automated lymphocyte count a s percentage of total leukocytesOrdered By: Katalina Torres on 10-24-2023 Lymphocytes/100 WBC Auto (Unsp spec) 40.4 % 19-41 [facility] Basophil percentageOrdered B y: Katalina Torres on 10-24-2023 Basophils/100 WBC (Bld) 0.6 % 0-1 [facility] Chloride [Moles/Vol] 108 mmol/L 98-107 [facility] Eosinophils/100 WBC (Bld) 2.6 % 0-5 [facility] Glucose [Mass/Vol] 118 mg/dL 74-106 [facility] Comment on above: Fasting Glucose resu lt from 100 to 125 mg/dL suggests IMPAIRED HOMEOSTASIS per A.D.A. criteria. Hemoglobin (Bld) [Mass/Vol] 12.0 g/dL 12.0-15.0 [facility] Monocytes/100 WBC (Bld) 6.4 % 0-10 [facility] Neutrophils (Bld) [#/Vol] 3.1 10*3/uL 2.0-7.7 [facility] Neutrophils/100 WBC (Bld) 49.8 % 47-70 [facility] Potassium [Moles/Vol] 4.0 mmol/L 3.5-5.1 [facility] Sodium [Moles/Vol] 141 mmol/L 136-145 [facility] WBC (Bld) [#/Vol] 6.2 10*3/uL 4.4-11.0 [facility] Determination of erythrocyte mean corpuscular volume (MCV)Ordered By: Katalina Torres on 10-24-2023 MCV (RBC) [Entitic vol] 88.1 fL 81-99 [facility] Erythrocyte distribution wid th ratioOrdered By: Katalina Torres on 10-24-2023 Erythrocyte distribution width (RBC) [Ratio] 13.7 % 11.6-14.6 [facility] Erythrocyte distribution wid th standard deviationOrdered By: Katalina Torres on 10-24-2023 Erythrocyte distribution width (RBC) [Entitic vol] 44.2 fL 35.1-43.9 [facility] Hematocrit Auto (Bld) [Volum e fraction]Ordered By: Katalina Torres on 10-24-2023 Hematocrit (Bld) [Volume fraction] 37.1 % 37-47 [facility] Immature granulocytes/100 WB C Auto (Bld)Ordered By: Katalina Torres on 10-24-2023 Immature granulocytes/100 WBC (Bld) 0.200 % 0.0-0.9 [facility] Comment on above: IG% - Immature Granu locytes (promyelocytes, myelocytes and metamyelocytes) > 1% indicates that a LEFT SHIFT is Present. Laboratory - Chemistry and C hemistry - challengeOrdered By: Katalina Torres on 10-24-2023 CO2 [Moles/Vol] 28.0 mmol/L 21.0-32.0 [facility] Natriuretic peptide B (Bld) [Mass/Vol] 144.8 pg/mL 0-100 [facility] Urea nitrogen/Creatinine [Mass ratio] 15.5 mg/mg 10-20 [facility] Laboratory - Hematology and Cell countsOrdered By: Katalina Torres on 10-24-2023 MCH (RBC) [Entitic mass] 28.5 pg 27.0-32.0 [facility] MCHC (RBC) [Mass/Vol] 32.3 g/dL 32-36 [facility] Nucleated RBC/100 WBC (Bld) [Ratio] 0 % 0-5 [facility] Platelets (Bld) [#/Vol] 212 10*3/uL 150-450 [facility] No Panel InformationOrdered By: Katalina Torres on 10-24-2023 Estimated GFR (MDRD) Amer 66 mL/min >60 [facility] Comment on above: GFR Calc Estimated GFR (MDRD) Non-Af Amer 55 mL/min >60 [facility] Comment on above: Non- GFR Calc Platelet mean volume Frank-Ec ker (Bld) [Entitic vol]Ordered By: Katalina Trores on 10-24-2023 Platelet mean volume (Bld) [Entitic vol] 10.6 fL 6.2-12.0 [facility] RBC Auto (Bld) [#/Vol]Ordere d By: Katalina Torres on 10-24-2023 RBC (Bld) [#/Vol] 4.21 10*6/uL 4.2-5.4 [facility] Serum or plasma calcium inga urement (mass/volume)Ordered By: Katalina Torres on 10-24-2023 Calcium [Mass/Vol] 9.6 mg/dL 8.5-10.1 [facility] Serum or plasma creatinine m easurement (mass/volume)Ordered By: Katalina Torrse on 10-24-2023 Creatinine [Mass/Vol] 1.03 mg/dL 0.55-1.02 [facility] Comment on above: The validity of the calculated GFR & GFRAA in patients over 70 years has not been determined. Clinical correlation is essential. Serum or plasma urea nitroge n measurement (mass/volume)Ordered By: Katalina Torres on 10-24-2023 Urea nitrogen [Mass/Vol] 16 mg/dL 7-18 [facility] Thin prep Papanicolaou smear with manual screeningOrdered By: Katalina Torres on 10-24-2023 Thin prep Papanicolaou smear with manual screening 5 5-[address] [facility] [address] ABDOMEN/PELVIS W/CONTRAST on 09-23-2023 CT ABDOMEN/PELVIS W/CONTRAST ORIGINAL EXAMINATION: CT OF THE ABDOMEN AND PELVIS WITH VIAPOYRA49/21/2023 11:28 am TECHNIQUE: CT of the abdomen and pelvis was performed with the administration of intravenous contrast. Multiplanar reformatted images are provided for review. Automated exposure control, iterative reconstruction, and/or weight based adjustment of the mA/kV was utilized to reduce the radiation dose to as low as reasonably achievable. COMPARISON: Chest radiograph 12/19/[address] abdomen pelvis 03/13/2018. HISTORY: ORDERING SYSTEM PROVIDED HISTORY: Reason for Exam: Abdominal pain, weight loss. Chronic abdominal pain, increased urinary incontinence. FINDINGS: Areas of fibrosis and reticular interstitial prominence at the bilateral lung bases. The liver is diffusely decreased in attenuation consistent with hepatic steatosis. Trace pneumobilia within the atrophic left hepatic lobe with a patent common bile duct stent. Cholecystectomy. The spleen and right adrenal gland are unremarkable. There is stable focal thickening of the left adrenal gland which is likely hyperplastic in nature. The pancreas appears slightly atrophic. The large and small bowel are normal in caliber. Moderate diverticulosis without diverticulitis. The appendix is surgically absent. No free intraperitoneal air. No significant lymphadenopathy. The uterus is surgically absent.. There is urinary bladder wall thickening with perivesical infiltrative changes. The abdominal aorta is nonaneurysmal with marked atherosclerosis. Mild multilevel degenerative changes the spine. There is an age indeterminate compression deformity of the L4 vertebral body with approximately 40% loss of height. An implanted device, presumably a bladder/sacral nerve stimulator, is again seen within the subcutaneous soft tissues posteriorly on the right with its lead traversing the subcutaneous tissues of the back and entering the right sacral foramen at the S3-S4 level and similar to prior. IMPRESSION: Urinary bladder wall thickening with perivesical infiltrative change suggestive of cystitis. Recommend correlation with urinalysis. Moderate diverticulosis without diverticulitis. Age-indeterminate L4 compression deformity. I have personally reviewed the images of this examination and agree with the resident's findings and interpretation. Interpreted by: Deric Meza MD Preliminary Report By: Karma Diaz Electronically signed By Deric Meza MD Dictated Date: 09/22/2023 2:34:50 PM Prelim Date: 09/23/2023 7:56:38 AM Sign Date: 09/23/2023 7:56:38 AM Ordering Provider: ROSALIND RUBALCAVA [facility] ([place]) .GFRon 09-22-2023 GFR 60 ml/min/1.73sqm Normal [facility] ([place]) Comment on above: Result Comment: GFR Population mean for , Non- Americans Ages 20-29 = 116 mL/min/1.73 sq.m. Ages 30-39 = 107 mL/min/1.73 sq.m. Ages 40-49 = 99 mL/min/1.73 sq.m. Ages 50-59 = 93 mL/min/1.73 sq.m. Ages 60-69 = 85 mL/min/1.73 sq.m. Ages 70+ = 75 mL/min/1.73 sq.m. Chronic Kidney Disease: Less than 60 mL/min/1.73 square meters End Stage Renal Disease: Less than 15 mL/min/1.73 square meters Performed By: #### C BC, GFR, A1C, ADIFF, CRP, TSH, CMP, ANEU, ESR #### [address] [address] GFR Non- 50 ml/min/1.73sqm Normal [facility] ([place]) Comment on above: Result Comment: GFR Population mean for , Non- Americans Ages 20-29 = 116 mL/min/1.73 sq.m. Ages 30-39 = 107 mL/min/1.73 sq.m. Ages 40-49 = 99 mL/min/1.73 sq.m. Ages 50-59 = 93 mL/min/1.73 sq.m. Ages 60-69 = 85 mL/min/1.73 sq.m. Ages 70+ = 75 mL/min/1.73 sq.m. Chronic Kidney Disease: Less than 60 mL/min/1.73 square meters End Stage Renal Disease: Less than 15 mL/min/1.73 square meters Performed By: #### C BC, GFR, A1C, ADIFF, CRP, TSH, CMP, ANEU, ESR #### [address] [address] CREon 09-22-2023 Creatinine [Mass/Vol] 1.06 mg/dL High 0.55-1.02 [facility] ([place]) Comment on above: Performed By: #### C BC, GFR, A1C, ADIFF, CRP, TSH, CMP, ANEU, ESR #### [id number] [place], [place] [address] Absolute lymphocyte countOrd ered By: Judson Hernandez on 08-15-2023 Lymphocytes Auto (Unsp spec) [#/Vol] 2.44 10*3/uL 0.83-4.51 [facility] Basophil percentageOrdered B y: Judson Hernandez on 08-15-2023 Basophil percentage 91 mg/dL 74-106 [facility] Basophil percentage 144 mmol/L 136-145 [facility] Basophil percentage 3.5 mmol/L 3.5-5.1 [facility] Basophil percentage 113 mmol/L 98-107 [facility] Basophils (Bld) [#/Vol] 10.1 10*3/uL 4.4-11.0 [facility] Basophils (Bld) [#/Vol] 7.0 10*3/uL 2.0-7.7 [facility] Basophils/100 WBC (Bld) 69.3 % 47-70 [facility] Basophils/100 WBC (Bld) 1.2 % 0-5 [facility] Basophils/100 WBC (Bld) 0.3 % 0-1 [facility] Chloride [Moles/Vol] 113 mmol/L 98-107 [facility] Eosinophils/100 WBC (Bld) 1.2 % 0-5 [facility] Glucose [Mass/Vol] 91 mg/dL 74-106 [facility] Neutrophils (Bld) [#/Vol] 7.0 10*3/uL 2.0-7.7 [facility] Neutrophils/100 WBC (Bld) 69.3 % 47-70 [facility] Potassium [Moles/Vol] 3.5 mmol/L 3.5-5.1 [facility] Sodium [Moles/Vol] 144 mmol/L 136-145 [facility] WBC (Bld) [#/Vol] 10.1 10*3/uL 4.4-11.0 [facility] Blood erythrocytes count (nu mber/volume)Ordered By: Judson Hernandez on 08-15-2023 RBC (Bld) [#/Vol] 3.61 10*6/uL 4.2-5.4 [facility] Blood hemoglobin measurement (mass/volume)Ordered By: Judson Hernandez on 08-15-2023 Hemoglobin (Bld) [Mass/Vol] 10.5 g/dL 12.0-15.0 [facility] Blood lymphocytes/100 leukoc ytesOrdered By: Judson Hernandez on 08-15-2023 Lymphocytes/100 WBC (Bld) 24.2 % 19-41 [facility] Blood monocytes/100 leukocyt esOrdered By: Judson Hernandez on 08-15-2023 Monocytes/100 WBC (Bld) 4.8 % 0-10 [facility] Blood platelet mean volumeOr dered By: Jusdon Hernandez on 08-15-2023 Platelet mean volume (Bld) [Entitic vol] 9.6 fL 6.2-12.0 [facility] Determination of erythrocyte mean corpuscular volume (MCV)Ordered By: Judson Hernandez on 08-15-2023 MCV (RBC) [Entitic vol] 93.4 fL 81-99 [facility] Glucose Glucometer (BldC) [M ass/Vol]Ordered By: Cirilo Fine on 08-15-2023 Glucose [Mass/Vol] 181 mg/dL 74-106 [facility] Comment on above: MANAGEMENT OF PATIEN T CARE PER NURSING PROTOCOL Hematocrit Auto (Bld) [Volum e fraction]Ordered By: Judson Hernandez on 08-15-2023 Hematocrit (Bld) [Volume fraction] 33.7 % 37-47 [facility] Laboratory - Chemistry and C hemistry - challengeOrdered By: Judson Hernandez on 08-15-2023 CO2 [Moles/Vol] 29.0 mmol/L 21.0-32.0 [facility] Urea nitrogen/Creatinine [Mass ratio] 12.9 mg/mg 10-20 [facility] Laboratory - Hematology and Cell countsOrdered By: Judson Hernandez on 08-15-2023 Erythrocyte distribution width (RBC) [Entitic vol] 43.9 fL 35.1-43.9 [facility] Erythrocyte distribution width (RBC) [Ratio] 12.9 % 11.6-14.6 [facility] Immature granulocytes/100 WBC (Bld) 0.200 % 0.0-0.9 [facility] Comment on above: IG% - Immature Granu locytes (promyelocytes, myelocytes and metamyelocytes) > 1% indicates that a LEFT SHIFT is Present. MCH (RBC) [Entitic mass] 29.1 pg 27.0-32.0 [facility] Nucleated RBC/100 WBC (Bld) [Ratio] 0 % 0-5 [facility] MCHC Auto (RBC) [Mass/Vol]Or dered By: Judson Hernandez on 08-15-2023 MCHC (RBC) [Mass/Vol] 31.2 g/dL 32-36 [facility] No Panel InformationOrdered By: Judson Hernandez on 08-15-2023 Estimated Creatinine Clearance Calc 40.58 ml/min [facility] Estimated GFR (MDRD) Amer 82 mL/min >60 [facility] Comment on above: GFR Calc Estimated GFR (MDRD) Non-Af Amer 68 mL/min >60 [facility] Comment on above: Non- GFR Calc 29.1 pg 27.0-32.0 [facility] 12.9 % 11.6-14.6 [facility] 43.9 fl 35.1-43.9 [facility] 0.200 % 0.0-0.9 [facility] 0 % 0-5 [facility] 68 mL/min >60 [facility] 82 mL/min >60 [facility] 40.58 ml/min [facility] 12.9 RATIO 10-20 [facility] 29.0 mmol/L 21.0-32.0 [facility] Platelets bldOrdered By: Cristian Hernandez on 08-15-2023 Platelets (Bld) [#/Vol] 241 10*3/uL 150-450 [facility] Serum or plasma calcium inga urement (mass/volume)Ordered By: Judson Hernandez on 08-15-2023 Calcium [Mass/Vol] 8.5 mg/dL 8.5-10.1 [facility] Serum or plasma creatinine m easurement (mass/volume)Ordered By: Judson Hernandez on 08-15-2023 Creatinine [Mass/Vol] 0.86 mg/dL 0.55-1.02 [facility] Comment on above: The validity of the calculated GFR & GFRAA in patients over 70 years has not been determined. Clinical correlation is essential. Serum or plasma urea nitroge n measurement (mass/volume)Ordered By: Judson Hernandez on 08-15-2023 Urea nitrogen [Mass/Vol] 11 mg/dL 7-18 [facility] Thin prep Papanicolaou smear with manual screeningOrdered By: Judson Hernandez on 08-15-2023 Thin prep Papanicolaou smear with manual screening 2 5-15 [facility] Absolute lymphocyte countOrd ered By: Enrrique Eric on 08-14-2023 Lymphocytes Auto (Unsp spec) [#/Vol] 0.89 10*3/uL 0.83-4.51 [facility] Basophil percentageOrdered B y: Enrrique Eric on 08-14-2023 Basophil percentage 0 SEEN /hpf 0-5 [facility] Basophil percentage 209 mg/dL 74-106 [facility] Basophil percentage 7.6 g/dL 6.4-8.2 [facility] Basophil percentage 0.50 mg/dL 0.20-1.00 [facility] Basophil percentage 138 mmol/L 136-145 [facility] Basophil percentage 3.5 mmol/L 3.5-5.1 [facility] Basophil percentage 105 mmol/L 98-107 [facility] Basophil percentage 1.8 mmol/L 0.4-2.0 [facility] Basophils (Bld) [#/Vol] 12.5 10*3/uL 4.4-11.0 [facility] Basophils (Bld) [#/Vol] 11.0 10*3/uL 2.0-7.7 [facility] Basophils/100 WBC (Bld) 88.1 % 47-70 [facility] Basophils/100 WBC (Bld) 0.2 % 0-5 [facility] Basophils/100 WBC (Bld) 0.3 % 0-1 [facility] Bilirubin [Mass/Vol] 0.50 mg/dL 0.20-1.00 [facility] Comment on above: For patients on eltr ombopag therapy, use of Dimension Pierre Part TBIL is not recommended. Lactate [Moles/Vol] 1.8 mmol/L 0.4-2.0 [facility] Protein [Mass/Vol] 7.6 g/dL 6.4-8.2 [facility] Bilirubin Test strip Ql (U)O rdered By: Enrrique Eric on 08-14-2023 Bilirubin Ql (U) Negative Negative [facility] Blood erythrocytes count (nu mber/volume)Ordered By: Enrrique Eric on 08-14-2023 RBC (Bld) [#/Vol] 4.77 10*6/uL 4.2-5.4 [facility] Blood hemoglobin measurement (mass/volume)Ordered By: Enrrique Eric on 08-14-2023 Hemoglobin (Bld) [Mass/Vol] 13.9 g/dL 12.0-15.0 [facility] Blood lymphocytes/100 leukoc ytesOrdered By: Enrrique Eric on 08-14-2023 Lymphocytes/100 WBC (Bld) 7.1 % 19-41 [facility] Blood monocytes/100 leukocyt esOrdered By: Enrrique Eric on 08-14-2023 Monocytes/100 WBC (Bld) 3.7 % 0-10 [facility] Blood platelet mean volumeOr dered By: Enrrique Eric on 08-14-2023 Platelet mean volume (Bld) [Entitic vol] 10.0 fL 6.2-12.0 [facility] Determination of erythrocyte mean corpuscular volume (MCV)Ordered By: Enrrique Eric on 08-14-2023 MCV (RBC) [Entitic vol] 89.7 fL 81-99 [facility] Direct bilirubinOrdered By: Enrrique Eric on 08-14-2023 Bilirubin.direct [Mass/Vol] 0.07 mg/dL 0.00-0.30 [facility] Hematocrit Auto (Bld) [Volum e fraction]Ordered By: Enrrique Eric on 08-14-2023 Hematocrit (Bld) [Volume fraction] 42.8 % 37-47 [facility] INR in Blood by Coagulation assayOrdered By: Enrrique Eric on 08-14-2023 INR Coag (Bld) [Relative time] 1.3 {INR} [facility] Influenza virus A and B and SARS-CoV-2 (COVID-19) Ag panel - Upper respiratory specimOrdered By: Enrrique Eric on 08-14-2023 SARS-CoV-2 (COVID-19) RNA PACHECO+probe Ql (Resp) [facility] Ketones Test strip Ql (U)Ord ered By: Enrrique Eric on 08-14-2023 Ketones Ql (U) 5 mg/dl Negative [facility] Laboratory - Chemistry and C hemistry - challengeOrdered By: Enrrique Eric on 08-14-2023 ALP [Catalytic activity/Vol] 98 U/L 45-117 [facility] ALT [Catalytic activity/Vol] 14 U/L 13-56 [facility] Globulin (S) [Mass/Vol] 4.8 g/dL 2.2-4.2 [facility] Lipase [Catalytic activity/Vol] 17 U/L 13-75 [facility] Comment on above: Please note:LIPASE r evised reference range effective 23. New Lipase methodology. Expected to produce lower values than the previous assay method. NEW Reference Range: 13 - 75 U/L Laboratory - CoagulationOrde red By: Enrrique Eric on 08-14-2023 aPTT Coag (Bld) [Time] 28.7 s 24.1-36.2 [facility] Coag (PPP) [Time] 16.3 s 11.7-14.9 [facility] Laboratory - Microbiology an d Antimicrobial susceptibilityOrdered By: Enrrique Eric on 08-14-2023 Bacteria identified Cx Nom (Bld) No growth in 5 days. [facility] MCHC Auto (RBC) [Mass/Vol]Or dered By: Enrrique Eric on 08-14-2023 MCHC (RBC) [Mass/Vol] 32.5 g/dL 32-36 [facility] Mucus LM Ql (Urine sed)Order ed By: Enrrique Eric on 08-14-2023 Mucus Ql (Urine sed) 0 SEEN /hpf [facility] Nitrite Test strip Ql (U)Ord ered By: Enrrique Eric on 08-14-2023 Nitrite Ql (U) Negative Negative [facility] No Panel InformationOrdered By: Enrrique Eric on 08-14-2023 29.1 pg 27.0-32.0 [facility] 12.5 % 11.6-14.6 [facility] 41.1 fl 35.1-43.9 [facility] 0.600 % 0.0-0.9 [facility] 0 % 0-5 [facility] 16.3 SECONDS 11.7-14.9 [facility] 28.7 Seconds 24.1-36.2 [facility] 58 mL/min >60 [facility] 70 mL/min >60 [facility] 11.2 RATIO 10-20 [facility] 4.8 g/dL 2.2-4.2 [facility] 17 U/L 13-75 [facility] 98 U/L 45-117 [facility] 14 U/L 13-56 [facility] 27.0 mmol/L 21.0-32.0 [facility] Platelets bldOrdered By: Yvon Eric on 08-14-2023 Platelets (Bld) [#/Vol] 294 10*3/uL 150-450 [facility] Protein Test strip Ql (U)Ord ered By: Enrrique Eric on 08-14-2023 Protein Ql (U) 30 mg/dl Negative [facility] Serum or plasma albumin inga urement (mass/volume)Ordered By: Enrrique Eric on 08-14-2023 Albumin [Mass/Vol] 2.8 g/dL 3.2-5.0 [facility] Serum or plasma calcium inga urement (mass/volume)Ordered By: Enrrique Eric on 08-14-2023 Calcium [Mass/Vol] 9.2 mg/dL 8.5-10.1 [facility] Serum or plasma creatinine m easurement (mass/volume)Ordered By: Enrrique Eric on 08-14-2023 Creatinine [Mass/Vol] 0.98 mg/dL 0.55-1.02 [facility] Serum or plasma urea nitroge n measurement (mass/volume)Ordered By: Enrrique Eric on 08-14-2023 Urea nitrogen [Mass/Vol] 11 mg/dL 7-18 [facility] Squamous epithelial cells de tection in urine sediment by light microscopyOrdered By: Enrrique Eric on 08-14-2023 Epithelial cells.squamous LM Ql (Urine sed) 0 SEEN /hpf 5-10 [facility] Stool enteric pathogen panel by probe and target amplification methodOrdered By: Judson Hernandez on 08-14-2023 Gastrointestinal pathogens panel PACHECO+probe (Stl) [facility] Thin prep Papanicolaou smear with manual screeningOrdered By: Enrrique Eric on 08-14-2023 Thin prep Papanicolaou smear with manual screening 22 U/L 15-37 [facility] Comment on above: Moderate Hemolysis, Result may be falsely increased. Thin prep Papanicolaou smear with manual screening 6 5-15 [facility] Upper respiratory specimen i nfluenza A virus, influenza B virus, and severe acute respiratory syndromOrdered By: Enrrique Eric on 08-14-2023 Upper respiratory specimen influenza A virus, influenza B virus, and severe acute respiratory syndrom [facility] Urine blood detectionOrdered By: Enrrique Eric on 08-14-2023 RBC Ql (U) 25 /ul Negative [facility] RBC Ql (U) 0 SEEN /hpf 0-5 [facility] Urine clarityOrdered By: Yvon Eric on 08-14-2023 Clarity (U) Clear Clear [facility] Urine color determinationOrd ered By: Enrrique Eric on 08-14-2023 Color (U) Yellow Yellow [facility] Urine glucose detectionOrder ed By: Enrrique Eric on 08-14-2023 Glucose Ql (U) 100 mg/dl Normal [facility] Urine leukocyte esterase det ection by dipstickOrdered By: Enrrique Eric on 08-14-2023 Leukocyte esterase Test strip Ql (U) Negative Negative [facility] Urine pHOrdered By: Enrrique horan on 08-14-2023 pH (U) 6.0 [pH] 5.0 - 8.0 [facility] Urine sediment bacteria coun t by microscopy (number/high power field)Ordered By: Enrrique Eric on 08-14-2023 Bacteria LM.HPF (Urine sed) [#/Area] 0 /[HPF] None Seen [facility] Urine specific gravity measu rementOrdered By: Enrrique Eric on 08-14-2023 Specific gravity (U) [Rel density] 1.020 1.002-1.030 [facility] Urobilinogen Auto test strip Ql (U)Ordered By: Enrrique Eric on 08-14-2023 Urobilinogen Ql (U) Normal mg/dl Normal [facility] No Panel Informationon 08-09 Culture Urine >100,000 cfu/ml Multiple bacterial morphotypes present. Probable Contamination. Suggest recollection if clinically indicated. [facility] Work Phone: .Auto Diffon 08-04-2023 Basophil, Absolute 0.1 10 3/mcL Normal 0.0-0.2 [facility] ([place]) Comment on above: Performed By: #### C BC, GFR, A1C, ADIFF, CRP, TSH, CMP, ANEU, ESR #### [facility] [address] [place], [place] [address] Basophils/100 WBC (Bld) 0.7 % Normal 0.0-2.5 A [facility] ([place]) Comment on above: Performed By: #### C BC, GFR, A1C, ADIFF, CRP, TSH, CMP, ANEU, ESR #### [address] [address] Eosinophil, Absolute 0.3 10 3/mcL Normal 0.0-0.4 [facility] ([place]) Comment on above: Performed By: #### C BC, GFR, A1C, ADIFF, CRP, TSH, CMP, ANEU, ESR #### [address] [address] Eosinophils/100 WBC (Bld) 4.2 % Normal 0.0-7.0 [facility] ([place]) Comment on above: Performed By: #### C BC, GFR, A1C, ADIFF, CRP, TSH, CMP, ANEU, ESR #### [address] [address] Lymphocyte, Absolute 2.2 10 3/mcL Normal 0.8-3.9 [facility] ([place]) Comment on above: Performed By: #### C BC, GFR, A1C, ADIFF, CRP, TSH, CMP, ANEU, ESR #### [address] [address] Lymphocytes/100 WBC (Bld) 28.9 % Normal 10.0-50.0 [facility] ([place]) Comment on above: Performed By: #### C BC, GFR, A1C, ADIFF, CRP, TSH, CMP, ANEU, ESR #### [address] [address] Monocyte, Absolute 0.4 10 3/mcL Normal 0.2-1.0 [facility] ([place]) Comment on above: Performed By: #### C BC, GFR, A1C, ADIFF, CRP, TSH, CMP, ANEU, ESR #### [address] [address] Monocytes/100 WBC (Bld) 5.1 % Normal 1.7-13.0 [facility] ([place]) Comment on above: Performed By: #### C BC, GFR, A1C, ADIFF, CRP, TSH, CMP, ANEU, ESR #### [address] [address] Neutrophils/100 WBC (Bld) 61.1 % Normal 37.0-80.0 [facility] ([place]) Comment on above: Performed By: #### C BC, GFR, A1C, ADIFF, CRP, TSH, CMP, ANEU, ESR #### [place] [id number] [place], [place] [address] .GFRon 08-04-2023 GFR 62 ml/min/1.73sqm Normal [facility] ([place]) Comment on above: Result Comment: GFR Population mean for , Non- Americans Ages 20-29 = 116 mL/min/1.73 sq.m. Ages 30-39 = 107 mL/min/1.73 sq.m. Ages 40-49 = 99 mL/min/1.73 sq.m. Ages 50-59 = 93 mL/min/1.73 sq.m. Ages 60-69 = 85 mL/min/1.73 sq.m. Ages 70+ = 75 mL/min/1.73 sq.m. Chronic Kidney Disease: Less than 60 mL/min/1.73 square meters End Stage Renal Disease: Less than 15 mL/min/1.73 square meters Performed By: #### C BC, GFR, A1C, ADIFF, CRP, TSH, CMP, ANEU, ESR #### [address] [address] [id number] [place], [place] [address] GFR Non- 51 ml/min/1.73sqm Normal [facility] ([place]) Comment on above: Result Comment: GFR Population mean for , Non- Americans Ages 20-29 = 116 mL/min/1.73 sq.m. Ages 30-39 = 107 mL/min/1.73 sq.m. Ages 40-49 = 99 mL/min/1.73 sq.m. Ages 50-59 = 93 mL/min/1.73 sq.m. Ages 60-69 = 85 mL/min/1.73 sq.m. Ages 70+ = 75 mL/min/1.73 sq.m. Chronic Kidney Disease: Less than 60 mL/min/1.73 square meters End Stage Renal Disease: Less than 15 mL/min/1.73 square meters Performed By: #### C BC, GFR, A1C, ADIFF, CRP, TSH, CMP, ANEU, ESR #### [address] [address] .NEUABSon 08-04-2023 Neutrophil, Absolute 4.6 10 3/mcL Normal 2.9-6.2 [facility] ([place]) Comment on above: Performed By: #### C BC, GFR, A1C, ADIFF, CRP, TSH, CMP, ANEU, ESR #### [place] [id number] A1Con 08-04-2023 HbA1c (Bld) [Mass fraction] 5.8 % Normal 4.3-6.4 [facility] ([place]) Comment on above: Performed By: #### C BC, GFR, A1C, ADIFF, CRP, TSH, CMP, ANEU, ESR #### [place] [address] CBCon 08-04-2023 Erythrocyte distribution width (RBC) [Ratio] 13.5 % Normal 11.5-14.5 [facility] ([place]) Comment on above: Performed By: #### C BC, GFR, A1C, ADIFF, CRP, TSH, CMP, ANEU, ESR #### [place] [address] Hematocrit (Bld) [Volume fraction] 36.2 % Low 37.0-47.0 [facility] ([place]) Comment on above: Performed By: #### C BC, GFR, A1C, ADIFF, CRP, TSH, CMP, ANEU, ESR #### [place] [id number] Hgb 12.2 G/dL Normal 12.0-16.0 [facility] ([place]) Comment on above: Performed By: #### C BC, GFR, A1C, ADIFF, CRP, TSH, CMP, ANEU, ESR #### [place] [id number] MCH (RBC) [Entitic mass] 29.3 pg Normal 27.0-31.2 [facility] ([place]) Comment on above: Performed By: #### C BC, GFR, A1C, ADIFF, CRP, TSH, CMP, ANEU, ESR #### [address] [address] MCHC 33.6 G/dL Normal 33.0-37.0 [facility] ([place]) Comment on above: Performed By: #### C BC, GFR, A1C, ADIFF, CRP, TSH, CMP, ANEU, ESR #### [address] [address] MCV (RBC) [Entitic vol] 87.3 fL Normal 80.0-94.0 A [facility] ([place]) Comment on above: Performed By: #### C BC, GFR, A1C, ADIFF, CRP, TSH, CMP, ANEU, ESR #### [address] [address] Platelet 303 10 3/mcL Normal 130-400 [facility] ([place]) Comment on above: Performed By: #### C BC, GFR, A1C, ADIFF, CRP, TSH, CMP, ANEU, ESR #### [address] [address] Platelet mean volume (Bld) [Entitic vol] 8.0 fL Normal 7.4-10.4 [facility] ([place]) Comment on above: Performed By: #### C BC, GFR, A1C, ADIFF, CRP, TSH, CMP, ANEU, ESR #### [address] [address] RBC 4.15 10 6/mcL Low 4.20-5.40 [facility] ([place]) Comment on above: Performed By: #### C BC, GFR, A1C, ADIFF, CRP, TSH, CMP, ANEU, ESR #### [address] [address] WBC 7.5 10 3/mcL Normal 4.6-10.8 [facility] ([place]) Comment on above: Performed By: #### C BC, GFR, A1C, ADIFF, CRP, TSH, CMP, ANEU, ESR #### [address] [address] CMPon 08-04-2023 Albumin Level 2.9 G/dL Low 3.4-4.8 [facility] ([place]) Comment on above: Performed By: #### C BC, GFR, A1C, ADIFF, CRP, TSH, CMP, ANEU, ESR #### [address] [address] Albumin/Globulin [Mass ratio] 0.7 {ratio} Low 1.1-2.5 [facility] ([place]) Comment on above: Performed By: #### C BC, GFR, A1C, ADIFF, CRP, TSH, CMP, ANEU, ESR #### [address] [address] ALP [Catalytic activity/Vol] 113 U/L Normal 40-135 [facility] ([place]) Comment on above: Performed By: #### C BC, GFR, A1C, ADIFF, CRP, TSH, CMP, ANEU, ESR #### [address] [address] ALT [Catalytic activity/Vol] 15 U/L Normal 14-59 [facility] ([place]) Comment on above: Performed By: #### C BC, GFR, A1C, ADIFF, CRP, TSH, CMP, ANEU, ESR #### [address] [address] AST [Catalytic activity/Vol] 16 U/L Normal 10-40 [facility] ([place]) Comment on above: Performed By: #### C BC, GFR, A1C, ADIFF, CRP, TSH, CMP, ANEU, ESR #### [address] [address] Bili Total 0.4 mg/dL Normal 0.2-1.0 [facility] ([place]) Comment on above: Result Comment: Use of this assay is not recommended for patients undergoing treatment with eltrombopag due to the potential for falsely elevated results. Performed By: #### C BC, GFR, A1C, ADIFF, CRP, TSH, CMP, ANEU, ESR #### [address] [address] BUN/Creatinine Ratio 12 ratio Normal 7-27 [facility] ([place]) Comment on above: Performed By: #### C BC, GFR, A1C, ADIFF, CRP, TSH, CMP, ANEU, ESR #### [address] [address] Calcium [Mass/Vol] 9.4 mg/dL Normal 8.4-10.2 [facility] ([place]) Comment on above: Performed By: #### C BC, GFR, A1C, ADIFF, CRP, TSH, CMP, ANEU, ESR #### [address] [address] Chloride [Moles/Vol] 107 mmol/L Normal 98-107 [facility] ([place]) Comment on above: Performed By: #### C BC, GFR, A1C, ADIFF, CRP, TSH, CMP, ANEU, ESR #### [address] [address] CO2 [Moles/Vol] 26 mmol/L Normal 23-31 [facility] ([place]) Comment on above: Performed By: #### C BC, GFR, A1C, ADIFF, CRP, TSH, CMP, ANEU, ESR #### [place] [address] Creatinine [Mass/Vol] 1.04 mg/dL High 0.55-1.02 [facility] ([place]) Comment on above: Performed By: #### C BC, GFR, A1C, ADIFF, CRP, TSH, CMP, ANEU, ESR #### [place] [address] Electrolyte Balance 13.0 mEq/L Normal 4.0-15.0 [facility] ([place]) Comment on above: Performed By: #### C BC, GFR, A1C, ADIFF, CRP, TSH, CMP, ANEU, ESR #### [place] [address] Globulin 4.3 G/dL Normal [facility] ([place]) Comment on above: Performed By: #### C BC, GFR, A1C, ADIFF, CRP, TSH, CMP, ANEU, ESR #### [place] [id number] Glucose [Mass/Vol] 111 mg/dL High 83-110 [facility] ([place]) Comment on above: Performed By: #### C BC, GFR, A1C, ADIFF, CRP, TSH, CMP, ANEU, ESR #### [address] [address] Potassium [Moles/Vol] 3.6 mmol/L Normal 3.5-5.1 [facility] ([place]) Comment on above: Performed By: #### C BC, GFR, A1C, ADIFF, CRP, TSH, CMP, ANEU, ESR #### [address] [address] Sodium [Moles/Vol] 146 mmol/L High 136-145 [facility] ([place]) Comment on above: Performed By: #### C BC, GFR, A1C, ADIFF, CRP, TSH, CMP, ANEU, ESR #### [address] [address] Total Protein 7.2 G/dL Normal 6.4-8.2 [facility] ([place]) Comment on above: Performed By: #### C BC, GFR, A1C, ADIFF, CRP, TSH, CMP, ANEU, ESR #### [address] [address] Urea nitrogen [Mass/Vol] 13 mg/dL Normal 7-18 [facility] ([place]) Comment on above: Performed By: #### C BC, GFR, A1C, ADIFF, CRP, TSH, CMP, ANEU, ESR #### [address] [address] FT4on 08-04-2023 Free T4 [Mass/Vol] 1.12 ng/dL Normal 0.76-1.46 [facility] ([place]) Comment on above: Performed By: #### C BC, GFR, A1C, ADIFF, CRP, TSH, CMP, ANEU, ESR #### [address] [address] LIPIDon 08-04-2023 Cholesterol [Mass/Vol] 165 mg/dL Normal 0-200 [facility] ([place]) Comment on above: Result Comment: Chol esterol Reference Interval: Less than 200 Desirable 200-239 Borderline high risk 240 and above High risk Performed By: #### C BC, GFR, A1C, ADIFF, CRP, TSH, CMP, ANEU, ESR #### [address] [address] Cholesterol in HDL [Mass/Vol] 54 mg/dL Normal 40-60 [facility] ([place]) Comment on above: Performed By: #### C BC, GFR, A1C, ADIFF, CRP, TSH, CMP, ANEU, ESR #### [address] [address] Cholesterol in LDL [Mass/Vol] 94 mg/dL Normal 0-130 [facility] ([place]) Comment on above: Performed By: #### C BC, GFR, A1C, ADIFF, CRP, TSH, CMP, ANEU, ESR #### [address] [address] Triglyceride [Mass/Vol] 84 mg/dL Normal 0-150 A [facility] ([place]) Comment on above: Result Comment: Trig lyceride Reference Interval: Less than 150 Normal 150-199 Borderline high risk 200-499 High risk 500 or higher Very high risk Performed By: #### C BC, GFR, A1C, ADIFF, CRP, TSH, CMP, ANEU, ESR #### [address] [address] TSHon 08-04-2023 TSH Qn 2.48 m[IU]/L Normal 0.36-3.74 [facility] ([place]) Comment on above: Performed By: #### C BC, GFR, A1C, ADIFF, CRP, TSH, CMP, ANEU, ESR #### [address] [address] Glucose Glucometer (BldC) [M ass/Vol]Ordered By: Senthil Ortiz on 06-10-2023 Glucose [Mass/Vol] 107 mg/dL 74-106 [facility] Comment on above: MANAGEMENT OF PATIEN T CARE PER NURSING PROTOCOL Absolute lymphocyte countOrd ered By: Senthil Ortiz on 06-08-2023 Lymphocytes Auto (Unsp spec) [#/Vol] 6.05 10*3/uL 0.83-4.51 [facility] Basophil percentageOrdered B y: Senthil Ortiz on 06-08-2023 Basophil percentage 103 mg/dL 74-106 [facility] Basophil percentage 139 mmol/L 136-145 [facility] Basophil percentage 3.5 mmol/L 3.5-5.1 [facility] Basophil percentage 109 mmol/L 98-107 [facility] Basophils (Bld) [#/Vol] 11.0 10*3/uL 4.4-11.0 [facility] Basophils (Bld) [#/Vol] 4.3 10*3/uL 2.0-7.7 [facility] Basophils/100 WBC (Bld) 0.3 % 0-1 [facility] Basophils/100 WBC (Bld) 39.0 % 47-70 [facility] Basophils/100 WBC (Bld) 1.0 % 0-5 [facility] Chloride [Moles/Vol] 109 mmol/L 98-107 [facility] Eosinophils/100 WBC (Bld) 1.0 % 0-5 [facility] Glucose [Mass/Vol] 103 mg/dL 74-106 [facility] Comment on above: Fasting Glucose resu lt from 100 to 125 mg/dL suggests IMPAIRED HOMEOSTASIS per A.D.A. criteria. Neutrophils (Bld) [#/Vol] 4.3 10*3/uL 2.0-7.7 [facility] Neutrophils/100 WBC (Bld) 39.0 % 47-70 [facility] Potassium [Moles/Vol] 3.5 mmol/L 3.5-5.1 [facility] Sodium [Moles/Vol] 139 mmol/L 136-145 [facility] WBC (Bld) [#/Vol] 11.0 10*3/uL 4.4-11.0 [facility] Blood erythrocytes count (nu mber/volume)Ordered By: Senthil Ortiz on 06-08-2023 RBC (Bld) [#/Vol] 4.40 10*6/uL 4.2-5.4 [facility] Blood hemoglobin measurement (mass/volume)Ordered By: Senthil Ortiz on 06-08-2023 Hemoglobin (Bld) [Mass/Vol] 13.4 g/dL 12.0-15.0 [facility] Blood lymphocytes/100 leukoc ytesOrdered By: Senthil Angel on 06-08-2023 Lymphocytes/100 WBC (Bld) 55.0 % 19-41 [facility] Blood monocytes/100 leukocyt esOrdered By: [facility] on 06-08-2023 Monocytes/100 WBC (Bld) 4.5 % 0-10 [facility] Blood platelet mean volumeOr dered By: [facility]-08-[facility]23 Platelet mean volume (Bld) [Entitic vol] 9.4 fL 6.2-12.0 [facility] Determination of erythrocyte mean corpuscular volume (MCV)Ordered By: Senthil Ortiz on 06-08-2023 MCV (RBC) [Entitic vol] 91.4 fL 81-99 [facility] Hematocrit Auto (Bld) [Volum e fraction]Ordered By: Senthil Angel on 06-08-2023 Hematocrit (Bld) [Volume fraction] 40.2 % 37-47 [facility] Laboratory - Chemistry and C hemistry - challengeOrdered By: [facility] 06-08-2023 CO2 [Moles/Vol] 23.0 mmol/L 21.0-32.0 [facility] Urea nitrogen/Creatinine [Mass ratio] 19.3 mg/mg 10-20 [facility] Laboratory - Hematology and Cell countsOrdered By: [facility] 06-08-2023 Erythrocyte distribution width (RBC) [Entitic vol] 45.3 fL 35.1-43.9 [facility] Erythrocyte distribution width (RBC) [Ratio] 13.5 % 11.6-14.6 [facility] Immature granulocytes/100 WBC (Bld) 0.200 % 0.0-0.9 [facility] Comment on above: IG% - Immature Granu locytes (promyelocytes, myelocytes and metamyelocytes) > 1% indicates that a LEFT SHIFT is Present. MCH (RBC) [Entitic mass] 30.5 pg 27.0-32.0 [facility] Nucleated RBC/100 WBC (Bld) [Ratio] 0 % 0-5 [facility] MCHC Auto (RBC) [Mass/Vol]Or dered By: Senthil Ortiz on 06-08-2023 MCHC (RBC) [Mass/Vol] 33.3 g/dL 32-36 [facility] No Panel InformationOrdered By: Senthil Ortiz on 06-08-2023 Estimated Creatinine Clearance Calc 31.13 ml/min [facility] Estimated GFR (MDRD) Amer 59 mL/min >60 [facility] Comment on above: GFR Calc Estimated GFR (MDRD) Non-Af Amer 49 mL/min >60 [facility] Comment on above: Non- GFR Calc 30.5 pg 27.0-32.0 [facility] 13.5 % 11.6-14.6 [facility] 45.3 fl 35.1-43.9 [facility] 0.200 % 0.0-0.9 [facility] 0 % 0-5 [facility] 49 mL/min >60 [facility] 59 mL/min >60 [facility] 31.13 ml/min [facility] 19.3 RATIO 10-20 [facility] 23.0 mmol/L 21.0-32.0 [facility] Platelets bldOrdered By: Senthil Ortiz on 06-08-2023 Platelets (Bld) [#/Vol] 374 10*3/uL 150-450 [facility] Serum or plasma calcium inga urement (mass/volume)Ordered By: Senthil Ortiz on 06-08-2023 Calcium [Mass/Vol] 9.5 mg/dL 8.5-10.1 [facility] Serum or plasma creatinine m easurement (mass/volume)Ordered By: Senthil Ortiz on 06-08-2023 Creatinine [Mass/Vol] 1.14 mg/dL 0.55-1.02 [facility] Comment on above: The validity of the calculated GFR & GFRAA in patients over 70 years has not been determined. Clinical correlation is essential. Serum or plasma urea nitroge n measurement (mass/volume)Ordered By: Senthil Ortiz on 06-08-2023 Urea nitrogen [Mass/Vol] 22 mg/dL 7-18 [facility] Thin prep Papanicolaou smear with manual screeningOrdered By: Senthil Ortiz 06-08-2023 Thin prep Papanicolaou smear with manual screening 7 5-15 [facility] Bacteria identified Cx Nom ( U)Ordered By: Senthil Ortiz on 05-31-2023 Culture, urine Escherichia coli [facility] Culture, urine Vancomycin Resist. E . faecalis [facility] Culture, urine Aerococcus viridans. [facility] Basophil percentageOrdered B y: Senthil Ortiz on 05-31-2023 Basophil percentage 0 SEEN /hpf 0-5 [facility] Bilirubin Test strip Ql (U)O rdered By: Senthil Ortiz on 05-31-2023 Bilirubin Ql (U) Negative Negative [facility] COVID-19 virus antigen assay Ordered By: Senthil Ortiz on 05-31-2023 SARS-CoV-2 (COVID-19) Ag IA.rapid Ql (Resp) [facility] SARS-CoV-2 (COVID-19) Ag IA.rapid Ql (Resp) [facility] Culture, urineOrdered By: Darwin Ortiz on 05-31-2023 Bacteria identified Cx Nom (U) Escherichia coli [facility] Bacteria identified Cx Nom (U) Vancomycin Resist. E. faecalis [facility] Bacteria identified Cx Nom (U) Aerococcus viridans. [facility] Ketones Test strip Ql (U)Ord ered By: Senthil Ortiz on 05-31-2023 Ketones Ql (U) Negative Negative [facility] Mucus LM Ql (Urine sed)Order ed By: Senthil Ortiz on 05-31-2023 Mucus Ql (Urine sed) 0 SEEN /hpf [facility] Nitrite Test strip Ql (U)Ord ered By: Senthil Ortiz on 05-31-2023 Nitrite Ql (U) Negative Negative [facility] Protein Test strip Ql (U)Ord ered By: Senthil Ortiz on 05-31-2023 Protein Ql (U) Negative Negative [facility] Squamous epithelial cells de tection in urine sediment by light microscopyOrdered By: Senthil Ortiz on 05-31-2023 Epithelial cells.squamous LM Ql (Urine sed) 0 SEEN /hpf 5-10 [facility] Urine blood detectionOrdered By: Senthil Ortiz on 05-31-2023 RBC Ql (U) Negative Negative [facility] RBC Ql (U) 0 SEEN /hpf 0-5 [facility] Urine clarityOrdered By: Senthil Ortiz on 05-31-2023 Clarity (U) Clear Clear [facility] Urine color determinationOrd ered By: Senthil Ortiz on 05-31-2023 Color (U) Yellow Yellow [facility] Urine glucose detectionOrder ed By: Senthil Ortiz on 05-31-2023 Glucose Ql (U) Normal mg/dl Normal [facility] Urine leukocyte esterase det ection by dipstickOrdered By: Senthil Ortiz on 05-31-2023 Leukocyte esterase Test strip Ql (U) Negative Negative [facility] Urine pHOrdered By: Senthil Ortiz on 05-31-2023 pH (U) 6.0 [pH] 5.0 - 8.0 [facility] Urine sediment bacteria coun t by microscopy (number/high power field)Ordered By: Senthil Ortiz on 05-31-2023 Bacteria LM.HPF (Urine sed) [#/Area] 0 /[HPF] None Seen [facility] Urine specific gravity measu rementOrdered By: Senthil Ortiz on 05-31-2023 Specific gravity (U) [Rel density] 1.010 1.002-1.030 [facility] Urobilinogen Auto test strip Ql (U)Ordered By: Senthil Ortiz on 05-31-2023 Urobilinogen Ql (U) Normal mg/dl Normal [facility] Clostridium difficile detect ion by polymerase chain reactionOrdered By: Senthil Ortiz on 05-29-2023 C. difficile DNA PACHECO+probe Ql (Unsp spec) [facility] C. difficile DNA PACHECO+probe Ql (Unsp spec) [facility] Basophil percentageOrdered B y: Alee Yao on 05-17-2023 Basophil percentage 129 mg/dL 74-106 [facility] Basophil percentage 6.9 g/dL 6.4-8.2 [facility] Basophil percentage 0.70 mg/dL 0.20-1.00 [facility] Basophil percentage 143 mmol/L 136-145 [facility] Basophil percentage 3.2 mmol/L 3.5-5.1 [facility] Basophil percentage 110 mmol/L 98-107 [facility] Bilirubin [Mass/Vol] 0.70 mg/dL 0.20-1.00 [facility] Comment on above: For patients on eltr ombopag therapy, use of Dimension Pierre Part TBIL is not recommended. Chloride [Moles/Vol] 110 mmol/L 98-107 [facility] Glucose [Mass/Vol] 129 mg/dL 74-106 [facility] Comment on above: Fasting Glucose resu lt greater than or equal to 126 mg/dL suggests DIABETES MELLITUS per A.D.A. criteria. Potassium [Moles/Vol] 3.2 mmol/L 3.5-5.1 [facility] Protein [Mass/Vol] 6.9 g/dL 6.4-8.2 [facility] Sodium [Moles/Vol] 143 mmol/L 136-145 [facility] Glucose Glucometer (BldC) [M ass/Vol]Ordered By: Alee Yao on 05-17-2023 Glucose [Mass/Vol] 204 mg/dL 74-106 [facility] Comment on above: MANAGEMENT OF PATIEN T CARE PER NURSING PROTOCOL Laboratory - Chemistry and C hemistry - challengeOrdered By: Alee Yao on 05-17-2023 ALP [Catalytic activity/Vol] 154 U/L -117 [facility] ALT [Catalytic activity/Vol] 77 U/L [facility] CO2 [Moles/Vol] 26.0 mmol/L 21.0-32.0 [facility] Globulin (S) [Mass/Vol] 4.4 g/dL 2.2-4.2 [facility] Urea nitrogen/Creatinine [Mass ratio] 9.6 mg/mg 10-20 [facility] No Panel InformationOrdered By: Alee Yao on 05-17-2023 Estimated Creatinine Clearance Calc 30.86 ml/min [facility] Estimated GFR (MDRD) Amer 58 mL/min >60 [facility] Comment on above: GFR Calc Estimated GFR (MDRD) Non-Af Amer 48 mL/min >60 [facility] Comment on above: Non- GFR Calc 48 mL/min >60 [facility] 58 mL/min >60 [facility] 30.86 ml/min [facility] 9.6 RATIO 10-20 [facility] 4.4 g/dL 2.2-4.2 [facility] 154 U/L 45-117 [facility] 77 U/L 13-56 [facility] 26.0 mmol/L 21.0-32.0 [facility] Serum or plasma albumin inga urement (mass/volume)Ordered By: Alee Yao on 05-17-2023 Albumin [Mass/Vol] 2.5 g/dL 3.2-5.0 [facility] Serum or plasma albumin/glob ulin mass ratioOrdered By: Alee Yao on 05-17-2023 Albumin/Globulin [Mass ratio] 0.6 {ratio} 0.9-2.4 [facility] Serum or plasma calcium inga urement (mass/volume)Ordered By: Alee Yao on 05-17-2023 Calcium [Mass/Vol] 9.4 mg/dL 8.5-10.1 [facility] Serum or plasma creatinine m easurement (mass/volume)Ordered By: Alee Yao on 05-17-2023 Creatinine [Mass/Vol] 1.15 mg/dL 0.55-1.02 [facility] Comment on above: The validity of the calculated GFR & GFRAA in patients over 70 years has not been determined. Clinical correlation is essential. Serum or plasma urea nitroge n measurement (mass/volume)Ordered By: Alee Yao on 05-17-2023 Urea nitrogen [Mass/Vol] 11 mg/dL 7-18 [facility] Thin prep Papanicolaou smear with manual screeningOrdered By: Alee Yao on 05-17-2023 Thin prep Papanicolaou smear with manual screening 27 U/L 15-37 [facility] Thin prep Papanicolaou smear with manual screening 7 5-15 [facility] Absolute lymphocyte countOrd ered By: Alee Yao on 05-16-2023 Lymphocytes Auto (Unsp spec) [#/Vol] 2.07 10*3/uL 0.83-4.51 [facility] Basophil percentageOrdered B y: Alee Yao on 05-16-2023 Basophils (Bld) [#/Vol] 5.3 10*3/uL 4.4-11.0 [facility] Basophils (Bld) [#/Vol] 2.7 10*3/uL 2.0-7.7 [facility] Basophils/100 WBC (Bld) 0.9 % 0-1 [facility] Basophils/100 WBC (Bld) 51.4 % 47-70 [facility] Basophils/100 WBC (Bld) 2.6 % 0-5 [facility] Eosinophils/100 WBC (Bld) 2.6 % 0-5 [facility] Neutrophils (Bld) [#/Vol] 2.7 10*3/uL 2.0-7.7 [facility] Neutrophils/100 WBC (Bld) 51.4 % 47-70 [facility] WBC (Bld) [#/Vol] 5.3 10*3/uL 4.4-11.0 [facility] Blood erythrocytes count (nu mber/volume)Ordered By: Alee Yao on 05-16-2023 RBC (Bld) [#/Vol] 4.45 10*6/uL 4.2-5.4 [facility] Blood hemoglobin measurement (mass/volume)Ordered By: Alee Yao on 05-16-2023 Hemoglobin (Bld) [Mass/Vol] 13.2 g/dL 12.0-15.0 [facility] Blood lymphocytes/100 leukoc ytesOrdered By: Alee Yao on 05-16-2023 Lymphocytes/100 WBC (Bld) 39.1 % 19-41 [facility] Blood monocytes/100 leukocyt esOrdered By: Alee Yoa on 05-16-2023 Monocytes/100 WBC (Bld) 5.8 % 0-10 [facility] Blood platelet mean volumeOr dered By: Alee Yao on 05-16-2023 Platelet mean volume (Bld) [Entitic vol] 10.7 fL 6.2-12.0 [facility] Determination of erythrocyte mean corpuscular volume (MCV)Ordered By: Alee Yao on 05-16-2023 MCV (RBC) [Entitic vol] 94.8 fL 81-99 [facility] Hematocrit Auto (Bld) [Volum e fraction]Ordered By: Alee Yao on 05-16-2023 Hematocrit (Bld) [Volume fraction] 42.2 % 37-47 [facility] Laboratory - Hematology and Cell countsOrdered By: Alee Yao on 05-16-2023 Erythrocyte distribution width (RBC) [Entitic vol] 43.3 fL 35.1-43.9 [facility] Erythrocyte distribution width (RBC) [Ratio] 12.3 % 11.6-14.6 [facility] Immature granulocytes/100 WBC (Bld) 0.200 % 0.0-0.9 [facility] Comment on above: IG% - Immature Granu locytes (promyelocytes, myelocytes and metamyelocytes) > 1% indicates that a LEFT SHIFT is Present. MCH (RBC) [Entitic mass] 29.7 pg 27.0-32.0 [facility] Nucleated RBC/100 WBC (Bld) [Ratio] 0 % 0-5 [facility] MCHC Auto (RBC) [Mass/Vol]Or dered By: Alee Yao on 05-16-2023 MCHC (RBC) [Mass/Vol] 31.3 g/dL 32-36 [facility] No Panel InformationOrdered By: Alee Yao on 05-16-2023 29.7 pg 27.0-32.0 [facility] 12.3 % 11.6-14.6 [facility] 43.3 fl 35.1-43.9 [facility] 0.200 % 0.0-0.9 [facility] 0 % 0-5 [facility] Platelets bldOrdered By: María Elena Yao on 05-16-2023 Platelets (Bld) [#/Vol] 227 10*3/uL 150-450 [facility] Basophil percentageOrdered B y: Alee Yao on 05-14-2023 Basophil percentage 3.0 mg/dL 2.5-4.9 [facility] Laboratory - Chemistry and C hemistry - challengeOrdered By: Alee Yao on 05-14-2023 Magnesium [Mass/Vol] 2.0 mg/dL 1.6-2.6 [facility] No Panel InformationOrdered By: Alee Yao on 05-14-2023 Methicillin-Resist S.aureus DNA PCR Negative Negative [facility] Negative Negative [facility] 2.0 mg/dL 1.6-2.6 [facility] Acetaminophen level (mass/vo lume)Ordered By: Alee Yao on 05-13-2023 Acetaminophen (Unsp spec) [Mass/Vol] < 2.0 ug/mL 10.0-30.0 [facility] Comment on above: Slight Icterus, Resu lt may be falsely decreased. Basophil percentageOrdered B y: Alee Yao on 05-13-2023 Basophil percentage 0.9 mmol/L 0.4-2.0 [facility] Lactate [Moles/Vol] 0.9 mmol/L 0.4-2.0 [facility] Basophil percentageOrdered B y: Octavia Gruber on 05-13-2023 Ammonia (P) [Moles/Vol] 15.0 umol/L [facility] Basophil percentage 15.0 umol/L [facility] Laboratory - Chemistry and C hemistry - challengeOrdered By: Alee Yao on 05-13-2023 CK [Catalytic activity/Vol] 41 U/L 26-192 [facility] Laboratory - Drug toxicology Ordered By: Alee Yao on 05-13-2023 Amphetamines Ql (U) Negative <1000 ng/mL [facility] Benzodiazepines Ql (U) Positive < 200 ng/mL [facility] Cannabinoids Screen Ql (U) Negative < 50 ng/mL [facility] Cocaine Ql (U) Negative < 300 ng/mL [facility] Opiates Ql (U) Positive < 300 ng/mL [facility] Laboratory - Microbiology an d Antimicrobial susceptibilityOrdered By: Octavia Gruber on 05-13-2023 SARS-CoV-2 (COVID-19) RNA PACHECO+probe Ql (Unsp spec) [facility] No Panel InformationOrdered By: Alee Yao on 05-13-2023 MDMA (Ecstasy) Screen Positive < 500 ng/mL [facility] Urine Barbiturates Screen Negative < 200 ng/mL [facility] Urine Drug Screen Comment [facility] Comment on above: CONFIRMATORY TESTING FOR ALL POSITIVE URINE DRUG SCREENRESULTS WILL ONLY BE SENT OUT UPON PHYSICIAN ORDER. VISTA Urine Drug Screen methods provide only preliminaryanalytical test results. A more specific alternate chemicalmethod must be used in order to obtain a confirmedanalytical result. Gas chromatography/mass spectrometery(GC/MS) is the preferred confirmatory method. Clinicalconsideration and professional judgement should be appliedto any drug of abuse test result, particularly whenpreliminary positive results are used. URINE TCA TESTING MUST BE ORDERED SEPARATELY. USE TESTMNEMONIC: [facility] Urine Methadone Screen Negative < 300 ng/mL [facility] Negative < 50 ng/mL [facility] Positive < 300 ng/mL [facility] Ethyl Alcohol Level < 3.0 mg/dL [facility] Comment on above: The serum:whole bloo d ethanol ratio is approximately 1.14and varies slightly with hematocrit. Medical Alcohol reference interval and critical value innon-tolerant individuals; 50 - 100 Impairment 100 Intoxication 100 - 250 Severe Poisoning 250 - 400 Deep/possible fatal coma < 3.0 mg/dL [facility] 41 U/L 26-192 [facility] No Panel InformationOrdered By: Octavia Gruber on 05-13-2023 Hepatitis A IgM Antibody Negative Negative [facility] Hepatitis B Core IgM Antibody Negative Negative [facility] Hepatitis C Antibody (EIA) Non-Reactive Non Reactive [facility] Hepatitis C Antibody Comment Comment . [facility] Comment on above: Not infected with HC V unless early or acute infection issuspected (which may be delayed in an immunocompromisedindividual), or other evidence exists to indicate HCVinfection.Performed at: [facility] Director: Ruben Tan PhD, Phone: [phone] Negative Negative [facility] Non-Reactive Non Reactive [facility] Comment . [facility] Serum or plasma hepatitis B virus surface antigen detection by immunoassayOrdered By: Octavia Gruber on 05-13-2023 HBV surface Ag IA Ql Negative Negative [facility] Serum procalcitonin measurem entOrdered By: Octavia Gruber on 05-13-2023 Procalcitonin [Mass/Vol] 2.29 ng/mL 0.00-0.09 [facility] Comment on above: A procalcitonin (PCT ) level above 2.0 ng/mL on the first day of ICU admission is associated with a high risk for progression to severe sepsis and/or septic shock. A PCT level below 0.5 ng/mL on the first day of ICU admission is associated with a low risk for progression to severe and/or septic shock. Note: Concentrations <0.5 ng/mL do not exclude an infection on account of localized infections (without systemic signs) which can be associated with such low concentrations, or a systemic infection in its initial stages (<6 hours). Furthermore, increased procalcitonin can occur without infection. PCT concentrations between 0.5 and 2.0 ng/mL should be interpreted taking into account the patient's history. It is recommended to retest PCT within 6-24 hours if any concentrations <2 ng/mL are obtained. Urine phencyclidine (PCP) de tectionOrdered By: Alee Yao on 05-13-2023 Phencyclidine Ql (U) Negative < 25 ng/mL [facility] Whole blood hemoglobin A1c/t otal hemoglobin ratio (mass fraction)Ordered By: Cirilo Galeas on 05-13-2023 HbA1c (Bld) [Mass fraction] 7.0 % 3.8-5.6 [facility] Comment on above: Normal < 5.7 % Predi abetic 5.7 - 6.4 % Diabetic >or= 6.5 % Please note range changes. Basophil percentageOrdered B y: Papo Morillo on 05-12-2023 Basophil percentage 0 SEEN /hpf 0-5 [facility] Bilirubin Test strip Ql (U)O rdered By: Papo Morillo on 05-12-2023 Bilirubin Ql (U) Negative Negative [facility] Culture, urineOrdered By: Javier Morillo on 05-12-2023 Bacteria identified Cx Nom (U) Culture exhibits no growth. [facility] Bacteria identified Cx Nom (U) Culture exhibits no growth. [facility] INR in Blood by Coagulation assayOrdered By: Papo Morillo on 05-12-2023 INR Coag (Bld) [Relative time] 1.1 {INR} [facility] Ketones Test strip Ql (U)Ord ered By: Papo Morillo on 05-12-2023 Ketones Ql (U) Negative Negative [facility] Laboratory - CoagulationOrde red By: Papo Morillo on 05-12-2023 aPTT Coag (Bld) [Time] 28.7 s 24.1-36.2 [facility] PT Coag (PPP) [Time] 14.5 s 11.7-14.9 [facility] Laboratory - Microbiology an d Antimicrobial susceptibilityOrdered By: Papo Morillo on 05-12-2023 Bacteria identified Cx Nom (Bld) No growth in 5 days. [facility] Mucus LM Ql (Urine sed)Order ed By: Papo Morillo on 05-12-2023 Mucus Ql (Urine sed) 0 SEEN /hpf [facility] Nitrite Test strip Ql (U)Ord ered By: Papo Morillo on 05-12-2023 Nitrite Ql (U) Negative Negative [facility] No Panel InformationOrdered By: Papo Morillo on 05-12-2023 No growth in 5 days. [facility] 14.5 SECONDS 11.7-14.9 [facility] 28.7 Seconds 24.1-36.2 [facility] Protein Test strip Ql (U)Ord ered By: Papo Morillo on 05-12-2023 Protein Ql (U) 15 mg/dl Negative [facility] Squamous epithelial cells de tection in urine sediment by light microscopyOrdered By: Papo Morillo on 05-12-2023 Epithelial cells.squamous LM Ql (Urine sed) 0 SEEN /hpf 5-10 [facility] Urine blood detectionOrdered By: Papo Morillo on 05-12-2023 RBC Ql (U) 10 /ul Negative [facility] RBC Ql (U) 0 SEEN /hpf 0-5 [facility] Urine clarityOrdered By: Papo Morillo on 05-12-2023 Clarity (U) Clear Clear [facility] Urine color determinationOrd ered By: Papo Morillo on 05-12-2023 Color (U) Yellow Yellow [facility] Urine glucose detectionOrder ed By: Papo Morillo on 05-12-2023 Glucose Ql (U) Normal mg/dl Normal [facility] Urine leukocyte esterase det ection by dipstickOrdered By: Papo Morillo on 05-12-2023 Leukocyte esterase Test strip Ql (U) Negative Negative [facility] Urine pHOrdered By: Papo ny on 05-12-2023 pH (U) 7.0 [pH] 5.0 - 8.0 [facility] Urine sediment bacteria coun t by microscopy (number/high power field)Ordered By: Papo Morillo on 05-12-2023 Bacteria LM.HPF (Urine sed) [#/Area] 0 /[HPF] None Seen [facility] Urine specific gravity measu rementOrdered By: Papo Morillo on 05-12-2023 Specific gravity (U) [Rel density] 1.010 1.002-1.030 [facility] Urobilinogen Auto test strip Ql (U)Ordered By: Papo Morillo on 05-12-2023 Urobilinogen Ql (U) 1 mg/dl Normal [facility] No Panel Informationon 03-04 Culture Urine >100,000 cfu/ml Multiple bacterial morphotypes present. Probable Contamination. Suggest recollection if clinically indicated. [facility] Work Phone: LABORATORYOrdered By: Vanessa Root on 05-11-2022 Albumin BCP dye [Mass/Vol] 3.5 G/dL Invalid Interpretation Code 3.4 - 4.8 G/dL AO ADM SS Albumin/Globulin [Mass ratio] 0.9 {ratio} Invalid Interpretation Code 1.1 - 2.5 ratio AO ADM SS ALP [Catalytic activity/Vol] 93 U/L Invalid Interpretation Code 40 - 135 U/L AO ADM SS ALT With P-5'-P [Catalytic activity/Vol] 42 U/L Invalid Interpretation Code 14 - 59 U/L AO ADM SS AST With P-5'-P [Catalytic activity/Vol] 26 U/L Invalid Interpretation Code 10 - 40 U/L AO ADM SS Bilirubin [Mass/Vol] 0.2 mg/dL Invalid Interpretation Code 0.2 - 1.0 mg/dL AO ADM SS Calcium [Mass/Vol] 9.5 mg/dL Invalid Interpretation Code 8.4 - 10.2 mg/dL AO ADM SS Chloride [Moles/Vol] 104 mmol/L Invalid Interpretation Code 98 - 107 mmol/L AO ADM SS Cholesterol [Mass/Vol] 196 mg/dL Invalid Interpretation Code 0 - 200 mg/dL AO ADM SS Cholesterol in HDL [Mass/Vol] 56 mg/dL Invalid Interpretation Code 40 - 60 mg/dL AO ADM SS Cholesterol in LDL [Mass/Vol] 109 mg/dL Invalid Interpretation Code 0 - 130 mg/dL AO ADM SS CO2 [Moles/Vol] 27 mmol/L Invalid Interpretation Code 23 - 31 mmol/L AO ADM SS Creatinine [Mass/Vol] 1.17 mg/dL Invalid Interpretation Code 0.55 - 1.02 mg/dL AO ADM SS Electrolyte Balance 9.0 mEq/L Invalid Interpretation Code 4.0 - 15.0 mEq/L AO ADM SS Free T4 [Mass/Vol] 0.82 ng/dL Invalid Interpretation Code 0.76 - 1.46 ng/dL AO ADM SS Globulin 3.8 G/dL Invalid Interpretation Code AO ADM SS Glucose [Mass/Vol] 114 mg/dL Invalid Interpretation Code 83 - 110 mg/dL AO ADM SS Potassium [Moles/Vol] 4.1 mmol/L Invalid Interpretation Code 3.5 - 5.1 mmol/L AO ADM SS Protein [Mass/Vol] 7.3 G/dL Invalid Interpretation Code 6.4 - 8.2 G/dL AO ADM SS Sodium [Moles/Vol] 140 mmol/L Invalid Interpretation Code 136 - 145 mmol/L AO ADM SS Triglyceride [Mass/Vol] 155 mg/dL Invalid Interpretation Code 0 - 150 mg/dL AO ADM SS TSH Qn 3.41 m[IU]/L Invalid Interpretation Code 0.36 - 3.74 mcIU/mL AO ADM SS Urea nitrogen [Mass/Vol] 24 mg/dL Invalid Interpretation Code 7 - 18 mg/dL AO ADM SS Urea nitrogen/Creatinine [Mass ratio] 21 ratio Invalid Interpretation Code 7 - 27 ratio AO ADM SS Uric Acid Lvl 4.8 mg/dL Invalid Interpretation Code 2.6 - 6.2 mg/dL AO ADM SS LABORATORYOrdered By: Mercedez Brewster on 05-11-2022 Basophil, Absolute 0.1 103/mcL Invalid Interpretation Code 0.0 - 0.2 10^3/mcL AO Workflow SS Basophils/100 WBC (Bld) 0.7 % Invalid Interpretation Code 0.0 - 2.5 % AO Workflow SS Eosinophil, Absolute 0.2 103/mcL Invalid Interpretation Code 0.0 - 0.4 10^3/mcL AO Workflow SS Eosinophils/100 WBC (Bld) 3.0 % Invalid Interpretation Code 0.0 - 7.0 % AO Workflow SS Erythrocyte distribution width (RBC) [Ratio] 13.1 % Invalid Interpretation Code 11.5 - 14.5 % AO Workflow SS ESR 15 minute reading (Bld) [Velocity] 15 mm/hr Invalid Interpretation Code 0 - 30 mm/hr AO Man Heme SS Hematocrit (Bld) [Volume fraction] 40.3 % Invalid Interpretation Code 37.0 - 47.0 % AO Workflow SS Hemoglobin (Bld) [Mass/Vol] 13.6 G/dL Invalid Interpretation Code 12.0 - 16.0 G/dL AO Workflow SS Lymphocyte, Absolute 2.5 103/mcL Invalid Interpretation Code 0.8 - 3.9 10^3/mcL AO Workflow SS Lymphocytes/100 WBC (Bld) 34.8 % Invalid Interpretation Code 10.0 - 50.0 % AO Workflow SS MCH (RBC) [Entitic mass] 30.8 pg Invalid Interpretation Code 27.0 - 31.2 pg AO Workflow SS MCHC 33.9 G/dL Invalid Interpretation Code 33.0 - 37.0 G/dL AO Workflow SS MCV (RBC) [Entitic vol] 91.0 fL Invalid Interpretation Code 80.0 - 94.0 fL AO Workflow SS Monocyte, Absolute 0.5 103/mcL Invalid Interpretation Code 0.2 - 1.0 10^3/mcL AO Workflow SS Monocytes/100 WBC (Bld) 6.7 % Invalid Interpretation Code 1.7 - 13.0 % AO Workflow SS Neutrophil, Absolute 3.9 103/mcL Invalid Interpretation Code 2.9 - 6.2 10^3/mcL AO Workflow SS Neutrophils/100 WBC (Bld) 54.8 % Invalid Interpretation Code 37.0 - 80.0 % AO Workflow SS Platelet mean volume (Bld) [Entitic vol] 8.0 fL Invalid Interpretation Code 7.4 - 10.4 fL AO Workflow SS Platelets (Bld) [#/Vol] 269 103/mcL Invalid Interpretation Code 130 - 400 10^3/mcL AO Workflow SS RBC (Bld) [#/Vol] 4.43 106/mcL Invalid Interpretation Code 4.20 - 5.40 10^6/mcL AO Workflow SS WBC 7.1 103/mcL Invalid Interpretation Code 4.6 - 10.8 10^3/mcL AO Workflow SS LABORATORYOrdered By: SYSTEM SYSTEM on 05-11-2022 GFR 54 ml/min/1.73sqm Invalid Interpretation Code AO Chemistry S GFR Non- 45 ml/min/1.73sqm Invalid Interpretation Code AO Chemistry S Monocyte distribution width Auto (Bld) [Entitic vol] Not Performed 1 *NA* (05/11/22 10:36 AM) Invalid Interpretation Code 0.00 - 20.00 AO Hematology S Comment on above: Result Comment: MDW testing performed only on adult ER patients between the ages of 18-89 years. LABORATORYOrdered By: Luisito Werner on 05-11-2022 HbA1c (Bld) [Mass fraction] 6.7 % Invalid Interpretation Code 4.3 - 6.4 % AO ADM SS CNOVon 04-06-2022 CNOV Office Visit (UROLAE ) LUIZA GALO ([id number]) [address] [facility] Date Time Provider Department 04/06/22 10:30 AM TEJAL RIVERA During your visit today, we recorded the following information about you: Blood pressure Weight Height 152/84 83.9 kg 1.575 m Tejal Rivera MD 04/06/2022 2:02 PM Signed OPERATIVE REPORT Botox Injection Preop Nurse: Maggi [...] Procedure Plan Instruction Sheet Given: Post Cystoscopy Maggi Ellington RN 04/06/2022 10:49 AM Signed Medications and Allergies reviewed and documented. Patient [...] with 1 being mild discomfort is NA Maggi Ellington RN 04/06/2022 2:10 PM Signed Patient straight catheterized for 10 ml urine. Lidocaine 1%--50 and 2%--50 ml instilled into bladder followed by Lidocaine 11 ml to urethra. Maggi Ellington RN Referring Provider: TEJAL RIVERA [[id number]] Allergies As of Date: 04/06/2022 Noted Allergy Reaction SHANDAUVIA (SITAGLIPTIN) 05/23/2017 16 - Unknown LATEX 01/11/2018 4 - Hives METFORMIN 05/23/2017 16 - Unknown CODEINE 07/24/2012 14 - Other: See Comments Comments: Nausea Date Reviewed: 04/06/2022 Reviewed by: Tejal Rivera MD - Fully Assessed Reason for Visit: Urge Urinary Incontinence [3581] Cystoscopy-1 [303] Primary Visit Diagnosis:Urge incontinence [N39.41] Order(s):[] cephALEXin 50 (more content not included)... Normal [facility] UA DIP, URINE (POC)on 2021 BILIRUBIN UA (POCT) Negative Negative [facility] CLARITY UA (POCT) Clear [facility] COLOR UA (POCT) Yellow [facility] GLUCOSE UA (POCT) Negative Negative mg/dL [facility] HEMOGLOBIN/BLOOD UA (POCT) Negative Negative [facility] KETONE UA (POCT) Negative Negative mg/dL [facility] LEUKOCYTES UA (POCT) Trace Abnormal Negative [facility] NITRITE UA (POCT) Negative Negative [facility] PH UA (POCT) 5.0 4.5 - 8.0 [facility] Protein Ql (U) Negative Negative mg/dL [facility] SPECIFIC GRAVITY UA (POCT) 1.025 1.005 - 1.030 [facility] UROBILINOGEN UA (POCT) 0.2 E.U./dL [place] l E.U./dL [facility] CNPNon 03-23-2022 CNPN Telephone (UROLAG) LUIZA GALO ([id number]) 1940 [facility] Date Time Provider Department 6/21/22 TEJAL RIVERA UROSILVANAG During your visit today, we recorded the following information about you: Amanda Bassett Ma 03/23/2022 11:10 AM Signed Luiza Castle Galo called today. : 1940 Allergies: Januvia [Sitagliptin], Latex, Metformin, and Codeine (cell) Message can be left with: with patient only Reason for call: pt is coming in for Botox 04/06/22 she would like to know if she needs a culture done before her appt. To make sure she doesn't have a UTI. Amanda Rivera MD 03/23/2022 12:15 PM Signed Yes, order placed Thank you Amanda Bassett Ma 03/23/2022 1:59 PM Signed Pt informed orders were placed Amanda Bassett Ma Allergies As of Date: 03/23/2022 Noted Allergy Reaction JANUVIA (SITAGLIPTIN) 05/23/2017 16 - Unknown LATEX 01/11/2018 4 - Hives METFORMIN 05/23/2017 16 - Unknown CODEINE 07/24/2012 14 - Other: See Comments Comments: Nausea Date Reviewed: 09/02/2021 Reviewed by: Maggi Ellington RN - Fully Assessed Reason for Visit: Orders [681] Primary Visit Diagnosis:Urinary tract infection without hematuria, site unspecified [N39.0] Order(s):URINE CULTURE [SQURCUL] Order #: [id number] FUTURE Prescriptions as of 03/23/2022 - ALPRAZolam (XANAX) 0.5 mg tablet Take 0.5 mg by mouth three times daily. - furosemide (LASIX) 20 mg tablet Take 20 mg by mouth once daily. - TRESIBA FLEXTOUCH U-200 200 unit/mL (3 mL) injection Inject 40 Units subcutaneously once daily. - montelukast (SINGULAIR) 10 mg tablet Take 10 mg by mouth once daily. - rOPINIRole (REQUIP) 1 mg tablet Take 1 mg by mouth three times daily. - lisinopril (ZESTRIL, PRINIVIL) 5 mg tablet - metoprolol succinate ER (TOPROL XL) 25 mg 24 hr tablet - metoprolol succinate ER (TOPROL XL) 50 mg 24 hr tablet - risperiDONE 0.25 mg ODT - risperiDONE (RISPERDAL) 0.25 mg tablet - sertraline (ZOLOFT) 50 mg tablet - BD INSULIN SYRINGE ULTRA-FINE 1 mL 31 gauge x 5/16 syrg - warfarin (COUMADIN) 2.5 mg tablet Take 3 mg by mouth once daily. - nitrofurantoin monohydrate and macrocrystal (MACROBID) 100 mg capsule Take 1 capsule by mouth twice daily. - amoxicillin-clavulanic acid (AUGMENTIN) 875-125 mg per tablet - atorvastatin (LIPITOR) 40 mg tablet - NOVOLOG FLEXPEN U-100 INSULIN 100 unit/mL inpn - XULTOPHY 100/3.6 100 unit-3.6 mg /mL (3 mL) inpn - Trospium (SANCTURA SR) 60 mg cp24 Take 1 capsule by mouth once daily. - INVOKANA 300 mg tablet Take 300 mg by mouth once daily. - clotrimazole-betamethas one (LOTRISONE) cream Apply to affected area twice daily. APPLY TO AFFECTED AREA - clonazePAM (KLONOPIN) 1 mg tablet - TRUE METRIX GLUCOSE TEST STRIP test strip twice daily. - MICRO THIN LANCETS 33 gauge misc twice daily. USE DIRECTED. - lisinopril 2.5 mg tablet Take 2.5 mg by mouth once daily. - losartan (COZAAR) 100 mg tablet Take 100 mg by mouth once daily. - metoprolol tartrate, short acting, (LOPRESSOR) 25 mg tablet Take 25 mg by mouth daily at bedtime. - pantoprazole DR (PROTONIX) 40 mg tablet Take 40 mg by mouth twice daily. - BD INSULIN SYRINGE ULTRA-FINE 1 mL 31 gauge x 15/64 syrg - rosuvastatin (CRESTOR) 20 mg tablet Take 20 mg by mouth once daily. - traZODone (DESYREL) 100 mg tablet Take 100 mg by mouth daily at bedtime. - venlafaxine XR (EFFEXOR XR) 150 mg 24 hr capsule Take 150 mg by mouth once daily. - warfarin (COUMADIN) 2 mg tablet TAKE 1 TABLET BY MOUTH 5 DAYS A WEEK - SUN, TUES, WED, FRID AND SAT - zolpidem (AMBIEN) 10 mg tab - oxyCODONE-acetaminophen (PERCOCET) 5-325 mg tablet - insulin detemir (LEVEMIR) 100 unit/mL injection Inject subcutaneously daily at bedtime. - citalopram (CELEXA) 40 mg tablet Take 40 mg by mouth once daily. - HYDROcodone-acetaminoph en (NORCO) 5-325 mg per tablet Take 1 tablet by mouth every 6 hours as needed. - ACETAMINOPHEN (TYLENOL ARTHRITIS ORAL) Take 500 mg by mouth. - simvastatin (ZOCOR) 40 mg tablet Take 40 mg by mouth daily at bedtime. - promethazine (PHENERGAN) 25 mg tablet Take 25 mg by mouth every 6 hours as needed. - insulin glargine (LANTUS) 100 unit/mL injection Inject subcutaneously daily at bedtime. Meds Comments as of 10/06/2017: 18: Pt to mail list. CR Problem List As Of Date 03/23/2022 Noted Resolved Opioid dependence, continuous [F11.20] 07/24/2012 Benzodiazepine dependence, continuous [F13.20] 07/24/2012 Urge incontinence [N39.41] 05/23/2017 OAB (overactive bladder) [N32.81] 05/23/2017 Encounter Status:Closed by TEJAL RIVERA on 03/23/22 [facility] No Panel Informationon 02-19 Culture Urine 50,000 - 100,000 cfu /ml Multiple bacterial morphotypes present. Probable Contamination. Suggest recollection if clinically indicated. [facility] Work Phone: LABORATORYOrdered By: Mercedez Brewster on 11-10-2021 Albumin BCP dye [Mass/Vol] 3.5 G/dL Invalid Interpretation Code 3.4 - 4.8 G/dL AO ADM SS Albumin/Globulin [Mass ratio] 1.0 {ratio} Invalid Interpretation Code 1.1 - 2.5 ratio AO ADM SS ALP [Catalytic activity/Vol] 93 U/L Invalid Interpretation Code 40 - 135 U/L AO ADM SS ALT With P-5'-P [Catalytic activity/Vol] 24 U/L Invalid Interpretation Code 14 - 59 U/L AO ADM SS AST With P-5'-P [Catalytic activity/Vol] 23 U/L Invalid Interpretation Code 10 - 40 U/L AO ADM SS Bilirubin [Mass/Vol] 0.2 mg/dL Invalid Interpretation Code 0.2 - 1.0 mg/dL AO ADM SS Calcium [Mass/Vol] 9.1 mg/dL Invalid Interpretation Code 8.4 - 10.2 mg/dL AO ADM SS Chloride [Moles/Vol] 110 mmol/L Invalid Interpretation Code 98 - 107 mmol/L AO ADM SS Cholesterol [Mass/Vol] 162 mg/dL Invalid Interpretation Code 0 - 200 mg/dL AO ADM SS Cholesterol in HDL [Mass/Vol] 47 mg/dL Invalid Interpretation Code 40 - 60 mg/dL AO ADM SS Cholesterol in LDL [Mass/Vol] 93 mg/dL Invalid Interpretation Code 0 - 130 mg/dL AO ADM SS CO2 [Moles/Vol] 25 mmol/L Invalid Interpretation Code 23 - 31 mmol/L AO ADM SS Creatinine [Mass/Vol] 1.06 mg/dL Invalid Interpretation Code 0.55 - 1.02 mg/dL AO ADM SS Electrolyte Balance 12.0 mEq/L Invalid Interpretation Code 4.0 - 15.0 mEq/L AO ADM SS Free T4 [Mass/Vol] 0.76 ng/dL Invalid Interpretation Code 0.76 - 1.46 ng/dL AO ADM SS Globulin 3.6 G/dL Invalid Interpretation Code AO ADM SS Glucose [Mass/Vol] 60 mg/dL Invalid Interpretation Code 83 - 110 mg/dL AO ADM SS HbA1c (Bld) [Mass fraction] 6.9 % Invalid Interpretation Code 4.3 - 6.4 % AO ADM SS Potassium [Moles/Vol] 3.8 mmol/L Invalid Interpretation Code 3.5 - 5.1 mmol/L AO ADM SS Protein [Mass/Vol] 7.1 G/dL Invalid Interpretation Code 6.4 - 8.2 G/dL AO ADM SS Sodium [Moles/Vol] 147 mmol/L Invalid Interpretation Code 136 - 145 mmol/L AO ADM SS Triglyceride [Mass/Vol] 109 mg/dL Invalid Interpretation Code 0 - 150 mg/dL AO ADM SS TSH Qn 4.93 m[IU]/L Invalid Interpretation Code 0.36 - 3.74 mcIU/mL AO ADM SS Urea nitrogen [Mass/Vol] 18 mg/dL Invalid Interpretation Code 7 - 18 mg/dL AO ADM SS Urea nitrogen/Creatinine [Mass ratio] 17 ratio Invalid Interpretation Code 7 - 27 ratio AO ADM SS LABORATORYOrdered By: Francesca Kamara on 11-10-2021 Basophil, Absolute 0.00 103/mcL Invalid Interpretation Code 0.00 - 0.19 10^3/mcL AO Auto Heme SS Basophils/100 WBC (Bld) 0.6 % Invalid Interpretation Code 0.0 - 2.5 % AO Auto Heme SS Eosinophil, Absolute 0.10 103/mcL Invalid Interpretation Code 0.00 - 0.40 10^3/mcL AO Auto Heme SS Eosinophils/100 WBC (Bld) 1.5 % Invalid Interpretation Code 0.0 - 7.0 % AO Auto Heme SS Erythrocyte distribution width (RBC) [Ratio] 13.5 % Invalid Interpretation Code 11.5 - 14.5 % AO Auto Heme SS Hematocrit (Bld) [Volume fraction] 37.8 % Invalid Interpretation Code 37.0 - 47.0 % AO Auto Heme SS Hemoglobin (Bld) [Mass/Vol] 12.9 G/dL Invalid Interpretation Code 12.0 - 16.0 G/dL AO Auto Heme SS Lymphocyte, Absolute 2.60 103/mcL Invalid Interpretation Code 0.77 - 3.85 10^3/mcL AO Auto Heme SS Lymphocytes/100 WBC (Bld) 36.0 % Invalid Interpretation Code 10.0 - 50.0 % AO Auto Heme SS MCH (RBC) [Entitic mass] 30.6 pg Invalid Interpretation Code 27.0 - 31.2 pg AO Auto Heme SS MCHC (RBC) [Mass/Vol] 34.1 G/dL Invalid Interpretation Code 33.0 - 37.0 G/dL AO Auto Heme SS MCV (RBC) [Entitic vol] 89.5 fL Invalid Interpretation Code 80.0 - 94.0 fL AO Auto Heme SS Monocyte, Absolute 0.40 103/mcL Invalid Interpretation Code 0.15 - 1.00 10^3/mcL AO Auto Heme SS Monocytes/100 WBC (Bld) 4.9 % Invalid Interpretation Code 1.7 - 13.0 % AO Auto Heme SS Neutrophil, Absolute 4.10 103/mcL Invalid Interpretation Code 2.85 - 6.16 10^3/mcL AO Auto Heme SS Neutrophils/100 WBC (Bld) 57.0 % Invalid Interpretation Code 37.0 - 80.0 % AO Auto Heme SS Platelet mean volume (Bld) [Entitic vol] 8.0 fL Invalid Interpretation Code 7.4 - 10.4 fL AO Auto Heme SS Platelets (Bld) [#/Vol] 240 103/mcL Invalid Interpretation Code 130 - 400 10^3/mcL AO Auto Heme SS RBC (Bld) [#/Vol] 4.22 106/mcL Invalid Interpretation Code 4.20 - 5.40 10^6/mcL AO Auto Heme SS WBC (Bld) [#/Vol] 7.20 103/mcL Invalid Interpretation Code 4.60 - 10.80 10^3/mcL AO Auto Heme SS LABORATORYOrdered By: SYSTEM SYSTEM on 11-10-2021 GFR 61 ml/min/1.73sqm Invalid Interpretation Code AO Chemistry S GFR Non- 50 ml/min/1.73sqm Invalid Interpretation Code AO Chemistry S No Panel Informationon 09-17 Culture Urine >100,000 cfu/ml Escherichia coli [facility] Work Phone: Escherichia coli Escherichia coli [facility] Work Phone: CNOVon 09-02-2021 CNOV Office Visit (UROLAE ) LUIZA GALO ([id number]) [address] [facility] Date Time Provider Department 09/02/21 9:00 AM TEJAL RIVERA During your visit today, we recorded the following information about you: Blood pressure Weight Height 130/70 83.9 kg 1.575 m Tejal Rivera MD 09/02/2021 11:04 AM Signed OPERATIVE REPORT Botox Injection Preop Nurse: Maggi [...] Procedure Plan Instruction Sheet Given: Post Cystoscopy Maggi Ellington RN 09/02/2021 9:13 AM Signed Medications and Allergies reviewed and documented. Patient [...] with 1 being mild discomfort is NA Maggi Ellington RN 09/02/2021 1:25 PM Signed Patient straight catheterized for 30 ml urine. Lidocaine 2%--50 ml instilled into bladder followed by Lidocaine 11 ml to urethra. Maggi Ellington RN Referring Provider: TEJAL RIVERA [[id number]] Allergies As of Date: 09/02/2021 Noted Allergy Reaction JANUVIA (SITAGLIPTIN) 05/23/2017 16 - Unknown LATEX 01/11/2018 4 - Hives METFORMIN 05/23/2017 16 - Unknown CODEINE 07/24/2012 14 - Other: See Comments Comments: Nausea Date Reviewed: 09/02/2021 Reviewed by: Maggi Ellington RN - Fully Assessed Reason for Visit: Cystoscopy-1 [303] Urge Urinary Incontinence [3581] Primary Visit Diagnosis:Urge incontinence [N39.41] Order(s):[] lidocaine urojet 2 % 11 mL topical gel (XYLOCAINE, GLYDO)Disp: Rfl: [] cephALEXin 500 mg cap(s) (KEFLEX)Disp: Rfl: [] onabotulinum toxin type A 200 Units injection (BOTOX)Disp: Rfl: [] lidocaine 20 mg/mL (2 %) 1,000 mg injection (XYLOCAINE)Disp: Rfl: UA DIP, URINE (POC) [[id number]] Order #: [id number] #:[id number] Prescriptions as of 09/02/2021 - ALPRAZolam (XANAX) 0.5 mg tablet Take 0.5 mg by mouth three times daily. - furosemide (LASIX) 20 mg tablet Take 20 mg by mouth once daily. - TRESIBA FLEXTOUCH U-200 200 unit/mL (3 mL) in (more content not included)... Normal [facility] UA DIP, URINE (POC)on 2020 BILIRUBIN UA (POCT) Negative Negative [facility] CLARITY UA (POCT) Clear [facility] COLOR UA (POCT) Yellow [facility] GLUCOSE UA (POCT) Negative Negative mg/dL [facility] HEMOGLOBIN/BLOOD UA (POCT) Trace-intact Abnormal Negative [facility] KETONE UA (POCT) Negative Negative mg/dL [facility] LEUKOCYTES UA (POCT) Trace Abnormal [facility]) Negative Negative [facility] PH UA (POCT) 5.5 4.5 - 8.0 [facility] Protein Ql (U) Negative Negative mg/dL [facility] SPECIFIC GRAVITY UA (POCT) 1.025 1.005 - 1.030 [facility] UROBILINOGEN UA (POCT) 0.2 E.U./dL [place] l E.U./dL [facility] CNPNon 08-19-2021 CNPN Telephone (UROLAE) LUIZA GALO ([id number]) 1940 [facility] Date Time Provider Department 08/19/21 TEJAL RIVERA During your visit today, we recorded the following information about you: Maggi Vega RN 08/19/2021 3:48 PM Signed Patient has an upcoming appointment and wondered if she needed to stop her coumadin- she doesn't, patient informed. Maggi Vega RN Allergies As of Date: 08/19/2021 Noted Allergy Reaction JANUVIA (SITAGLIPTIN) 05/23/2017 16 - Unknown LATEX 01/11/2018 4 - Hives METFORMIN 05/23/2017 16 - Unknown CODEINE 07/24/2012 14 - Other: See Comments Comments: Nausea Date Reviewed: 06/17/2021 Reviewed by: Tejal Rivera MD - Fully Assessed Reason for Visit: Appointment [186] Patient Question [9064] Prescriptions as of 08/19/2021 - ALPRAZolam (XANAX) 0.5 mg tablet Take 0.5 mg by mouth three times daily. - furosemide (LASIX) 20 mg tablet Take 20 mg by mouth once daily. - TRESIBA FLEXTOUCH U-200 200 unit/mL (3 mL) injection Inject 40 Units subcutaneously once daily. - montelukast (SINGULAIR) 10 mg tablet Take 10 mg by mouth once daily. - rOPINIRole (REQUIP) 1 mg tablet Take 1 mg by mouth three times daily. - lisinopril (ZESTRIL, PRINIVIL) 5 mg tablet - metoprolol succinate ER (TOPROL XL) 25 mg 24 hr tablet - metoprolol succinate ER (TOPROL XL) 50 mg 24 hr tablet - risperiDONE 0.25 mg ODT - risperiDONE (RISPERDAL) 0.25 mg tablet - sertraline (ZOLOFT) 50 mg tablet - BD INSULIN SYRINGE ULTRA-FINE 1 mL 31 gauge x 5/16 syrg - warfarin (COUMADIN) 2.5 mg tablet Take 3 mg by mouth once daily. - nitrofurantoin monohydrate and macrocrystal (MACROBID) 100 mg capsule Take 1 capsule by mouth twice daily. - amoxicillin-clavulanic acid (AUGMENTIN) 875-125 mg per tablet - atorvastatin (LIPITOR) 40 mg tablet - NOVOLOG FLEXPEN U-100 INSULIN 100 unit/mL inpn - XULTOPHY 100/3.6 100 unit-3.6 mg /mL (3 mL) inpn - Trospium (SANCTURA SR) 60 mg cp24 Take 1 capsule by mouth once daily. - INVOKANA 300 mg tablet Take 300 mg by mouth once daily. - clotrimazole-betamethas one (LOTRISONE) cream Apply to affected area twice daily. APPLY TO AFFECTED AREA - clonazePAM (KLONOPIN) 1 mg tablet - TRUE METRIX GLUCOSE TEST STRIP test strip twice daily. - MICRO THIN LANCETS 33 gauge misc twice daily. USE DIRECTED. - lisinopril 2.5 mg tablet Take 2.5 mg by mouth once daily. - losartan (COZAAR) 100 mg tablet Take 100 mg by mouth once daily. - metoprolol tartrate, short acting, (LOPRESSOR) 25 mg tablet Take 25 mg by mouth daily at bedtime. - pantoprazole DR (PROTONIX) 40 mg tablet Take 40 mg by mouth twice daily. - BD INSULIN SYRINGE ULTRA-FINE 1 mL 31 gauge x 15/64 syrg - rosuvastatin (CRESTOR) 20 mg tablet Take 20 mg by mouth once daily. - traZODone (DESYREL) 100 mg tablet Take 100 mg by mouth daily at bedtime. - venlafaxine XR (EFFEXOR XR) 150 mg 24 hr capsule Take 150 mg by mouth once daily. - warfarin (COUMADIN) 2 mg tablet TAKE 1 TABLET BY MOUTH 5 DAYS A WEEK - SUN, TU, TUE, AND SAT - zolpidem (AMBIEN) 10 mg tab - oxyCODONE-acetaminophen (PERCOCET) 5-325 mg tablet - insulin detemir (LEVEMIR) 100 unit/mL injection Inject subcutaneously daily at bedtime. - citalopram (CELEXA) 40 mg tablet Take 40 mg by mouth once daily. - HYDROcodone-acetaminoph en (NORCO) 5-325 mg per tablet Take 1 tablet by mouth every 6 hours as needed. - ACETAMINOPHEN (TYLENOL ARTHRITIS ORAL) Take 500 mg by mouth. - simvastatin (ZOCOR) 40 mg tablet Take 40 mg by mouth daily at bedtime. - promethazine (PHENERGAN) 25 mg tablet Take 25 mg by mouth every 6 hours as needed. - insulin glargine (LANTUS) 100 unit/mL injection Inject subcutaneously daily at bedtime. Meds Comments as of 10/06/2017: 1--18: Pt to mail list. CR Problem List As Of Date 08/19/2021 Noted Resolved Opioid dependence, continuous [F11.20] 07/24/2012 Benzodiazepine dependence, continuous [F13.20] 07/24/2012 Urge incontinence [N39.41] 05/23/2017 OAB (overactive bladder) [N32.81] 05/23/2017 Encounter Status:Closed by MAGGI VEGA RN on 08/19/21 [facility] CNOVdeven 06-17-2021 CNOV Office Visit (UROLAE ) LUIZA GALO ([id number]) 1940 [facility] Date Time Provider Department 06/17/21 1:45 PM TEJAL RIVERA During your visit today, we recorded the following information about you: Blood pressure Weight Height 126/80 83.9 kg 1.575 m Tejal Rivera MD 06/17/2021 2:36 PM Signed NEW PATIENT HISTORY AND PHYSICAL EXAM HISTORY OF PRESENT ILLNESS: Luiza Galo is a 80 year old female who presents New patient today but Saw Dr Rivera 3 years ago. Has interstim but not [...] Take 300 mg by mouth once daily. clotrimazole-betamethas one (LOTRISONE) cream Apply to affected area twice [...] MOUTH 5 DAYS A WEEK - SUN, TU, WED, FRID AND SAT zolpidem (AMBIEN) 10 mg tab oxyCODONE-acetaminophen (PERCOCET) 5-325 mg tablet insulin detemir (LEVEMIR) 100 unit/mL injection Inject subcutaneously daily at bedtime. citalopram (CELEXA) 40 mg tablet Take 40 mg by mouth once daily. HYDROcodone-acetaminoph en (NORCO) 5-325 mg per tablet Take 1 [...] bedtime. HISTORIES PAST MEDICAL HISTORY Diagnosis Date (more content not included)... Normal [facility] Cult Urineon 12-28-2017 Cult Urine Test performed at [facility] ORGANISM: Escherichia coli (ID: 1) >100,000 CFU/ml Normal [facility] Comment on above: Performed By: #### C _URI ####[place] [id number] Vital Signs Date Time Vital Sign Value Performing Clinician Facility 11-21-2023 00:16-0500 Body temperature 97.1 [degF] Dr. Rosalind Rubalcava Work Phone: [facility] 11-21-2023 00:16-0500 Diastolic blood pressure 75 mm[Hg] Dr. Rosalind Rubalcava Work Phone: [facility] 11-21-2023 00:16-0500 Heart rate 79 /min Dr. Rosalind Rubalcava Work Phone: [facility] 11-21-2023 00:16-0500 Respiratory rate 15 /min Dr. Rosalind Rubalcava Work Phone: [facility] 11-21-2023 00:16-0500 SaO2% (BldA) [Mass fraction] 95 % Dr. Rosalind Rubalcava Work Phone: [facility] 11-21-2023 00:16-0500 Systolic blood pressure 168 mm[Hg] Dr. Rosalind Rubalcava Work Phone: [facility] 11-20-2023 20:24-0500 Body mass index (BMI) [Ratio] 36.8 kg/m2 Dr. Rosalind Rubalcava Work Phone: [facility] 11-20-2023 20:24-0500 Body weight 85.[address] Rosalind Rubalcava Work Phone: [facility] 11-20-2023 20:14-0500 Body height 152.[address] Rosalind Rubalcava Work Phone: [facility] 10-24-2023 11:24-0500 Diastolic blood pressure 70 mm[Hg] Dr. Rosalind Rubalcava Work Phone: [facility] 10-24-2023 11:24-0500 Systolic blood pressure 150 mm[Hg] Dr. Rosalind Rubalcava Work Phone: [facility] 10-24-2023 11:00-0500 Body height 157.[address] Rosalind Rubalcava Work Phone: [facility] 10-24-2023 11:00-0500 Body mass index (BMI) [Ratio] 33.3 kg/m2 Dr. Rosalind Rubalcava Work Phone: [facility] 10-24-2023 11:00-0500 Body weight 82.[address] Rosalind Rubalcava Work Phone: [facility] 10-24-2023 11:00-0500 Heart rate 50 /min Dr. Rosalind Rubalcava Work Phone: [facility] 10-24-2023 11:00-0500 Respiratory rate 18 /min Dr. Rosalind Rubalcava Work Phone: [facility] 10-24-2023 11:00-0500 SaO2% (BldA) [Mass fraction] 93 % Dr. Rosalind Rubalcava Work Phone: [facility] 08-15-2023 11:27-0500 Heart rate 55 /min Dr. Rosalind Rubalcava Work Phone: [facility] 08-15-2023 08:09-0500 SaO2% (BldA) [Mass fraction] 96 % Dr. Rosalind Rubalcava Work Phone: [facility] 08-15-2023 07:44-0500 Body temperature 97.7 [degF] Dr. Rosalind Rubalcava Work Phone: [facility] 08-15-2023 07:44-0500 Diastolic blood pressure 48 mm[Hg] Dr. Rosalind Rubalcava Work Phone: [facility] 08-15-2023 07:44-0500 Respiratory rate 16 /min Dr. Rosalind Rubalcava Work Phone: [facility] 08-15-2023 07:44-0500 Systolic blood pressure 141 mm[Hg] Dr. Rosalind Rubalcava Work Phone: [facility] 08-15-2023 05:00-0500 Inhaled oxygen flow rate 2 L/min Dr. Rosalind Rubalcava Work Phone: [facility] 08-14-2023 16:11-0500 Body height 157.[address] Rosalind Rubalcava Work Phone: [facility] 08-14-2023 16:11-0500 Body mass index (BMI) [Ratio] 34.9 kg/m2 Dr. Rosalind Rubalcava Work Phone: [facility] 08-14-2023 16:11-0500 Body weight 86.[address] Rosalind Rubalcava Work Phone: [facility] 08-14-2023 15:20-0500 Diastolic blood pressure 54 mm[Hg] Dr. Rosalind Rubalcava Work Phone: [facility] 08-14-2023 15:20-0500 Heart rate 85 /min Dr. Rosalind Rubalcava Work Phone: [facility] 08-14-2023 15:20-0500 Respiratory rate 16 /min Dr. Rosalind Rubalcava Work Phone: [facility] 08-14-2023 15:20-0500 SaO2% (BldA) [Mass fraction] 97 % Dr. Rosalind Rubalcava Work Phone: [facility] 08-14-2023 15:20-0500 Systolic blood pressure 142 mm[Hg] Dr. Rosalind Rubalcava Work Phone: [facility] 08-14-2023 13:37-0500 Body temperature 100.2 [degF] Dr. Rosalind Rubalcava Work Phone: [facility] 08-14-2023 13:37-0500 Inhaled oxygen flow rate 2 L/min Dr. Rosalind Rubalcava Work Phone: [facility] 08-14-2023 11:52-0500 Body height 157.[address] Rosalind Rubalcava Work Phone: [facility] 06-10-2023 09:17-0400 Diastolic blood pressure 45 mm[Hg] Dr. Rosalind Rubalcava Work Phone: [facility] 06-10-2023 09:17-0400 Heart rate 56 /min Dr. Rosalind Rubalcava Work Phone: [facility] 06-10-2023 09:17-0400 Systolic blood pressure 123 mm[Hg] Dr. Rosalind Rubalcava Work Phone: [facility] 06-10-2023 05:45-0400 Respiratory rate 16 /min Dr. Rosalind Rubalcava Work Phone: [facility] 06-10-2023 05:45-0400 SaO2% (BldA) [Mass fraction] 97 % Dr. Rosalind Rubalcava Work Phone: [facility] 06-09-2023 12:20-0400 Body temperature 97.8 [degF] Dr. Rosalind Rubalcava Work Phone: [facility] 06-07-2023 10:36-0400 Body mass index (BMI) [Ratio] 33.7 kg/m2 Dr. Rosalind Rubalcava Work Phone: [facility] 06-07-2023 10:36-0400 Body weight 83.[address] Rosalind Rubalcava Work Phone: [facility] 06-01-2023 11:50-0400 Body height 157.[address] Rosalind Rubalcava Work Phone: [facility] 05-17-2023 16:05-0400 Body temperature 98.3 [degF] Dr. Rosalind Rubalcava Work Phone: [facility] 05-17-2023 16:05-0400 Diastolic blood pressure 53 mm[Hg] Dr. Rosalind Rubalcava Work Phone: [facility] 05-17-2023 16:05-0400 Heart rate 62 /min Dr. Rosalind Rubalcava Work Phone: [facility] 05-17-2023 16:05-0400 Respiratory rate 16 /min Dr. Rosalind Rubalcava Work Phone: [facility] 05-17-2023 16:05-0400 SaO2% (BldA) [Mass fraction] 96 % Dr. Rosalind Rubalcava Work Phone: [facility] 05-17-2023 16:05-0400 Systolic blood pressure 143 mm[Hg] Dr. Rosalind Rubalcava Work Phone: [facility] 05-17-2023 04:38-0400 Body mass index (BMI) [Ratio] 36.3 kg/m2 Dr. Rosalind Rubalcava Work Phone: [facility] 05-17-2023 04:38-0400 Body weight 89.[address] Rosalind Rubalcava Work Phone: [facility] 05-15-2023 09:05-0400 Inhaled oxygen flow rate 1.5 L/min Dr. Rosalind Rubalcava Work Phone: [facility] 05-13-2023 01:51-0400 Body height 157.[address] Rosalind Rubalcava Work Phone: [facility] 04-20-2023 14:23-0400 Body mass index (BMI) [Ratio] 36.2 kg/m2 Dr. Rosalind Rubalcava Work Phone: [facility] 04-20-2023 14:23-0400 Body weight 89.[address] Rosalind Rubalcava Work Phone: [facility] 04-20-2023 14:23-0400 Diastolic blood pressure 87 mm[Hg] Dr. Rosalind Rubalcava Work Phone: [facility] 04-20-2023 14:23-0400 Heart rate 63 /min Dr. Rosalind Rubalcava Work Phone: [facility] 04-20-2023 14:23-0400 Respiratory rate 18 /min Dr. Rosalind Rubalcava Work Phone: [facility] 04-20-2023 14:23-0400 SaO2% (BldA) [Mass fraction] 94 % Dr. Rosalind Rubalcava Work Phone: [facility] 04-20-2023 14:23-0400 Systolic blood pressure 176 mm[Hg] Dr. Rosalind Rubalcava Work Phone: [facility] 04-06-2022 10:39-0400 Body height 157.5 cm Tejal Rivera MD Work Phone: [facility] 04-06-2022 10:39-0400 Body weight 83.92 kg Tejal Rivera MD Work Phone: [facility] 04-06-2022 10:39-0400 Diastolic blood pressure 84 mm[Hg] Tejal Rivera MD Work Phone: [facility] 04-06-2022 10:39-0400 Systolic blood pressure 152 mm[Hg] Tejal Rivera MD Work Phone: [facility] 09-02-2021 09:09-0500 Body height 157.5 cm Tejal Rivera MD Work Phone: [facility] 09-02-2021 09:09-0500 Body weight 83.92 kg Tejal Rivera MD Work Phone: [facility] 09-02-2021 09:09-0500 Diastolic blood pressure 70 mm[Hg] Tejal Rivera MD Work Phone: [facility] 09-02-2021 09:09-0500 Systolic blood pressure 130 mm[Hg] Tejal Rivera MD Work Phone: [facility] 06-17-2021 13:39-0400 Body height 157.5 cm Tejal Rivera MD Work Phone: [facility] 06-17-2021 13:39-0400 Body weight 83.92 kg Tejal Rivera MD Work Phone: [facility] 06-17-2021 13:39-0400 Diastolic blood pressure 80 mm[Hg] Tejal Rivera MD Work Phone: [facility] 06-17-2021 13:39-0400 Systolic blood pressure 126 mm[Hg] Tejal Rivera MD Work Phone: [facility] Encounters Encounter Date Encounter Type Care Provider Facility Start: 03-06-2025 ambulatory Laverne VICTORIA Facility:[facility] Start: 03-04-2025 ambulatory Rosalind Rubalcava Facility: [facility] Start: 02-11-2025 ambulatory Laverne VICTORIA Facility:[facility] Start: 02-11-2025 Registered Referred [facility] Start: 02-04-2025 Registered Referred Laverne Lea MD -[facility] Start: 02-04-2025 End: 02-04-2025 ambulatory Laverne VICTORIA Facility:[facility] Start: 01-28-2025 End: 01-28-[address] Rosalind Rubalcvaa MD Work Phone: [facility] Work Phone: Start: 01-28-2025 End: 01-28-2025 Patient encounter procedure Jing Jones [employer]-C -[facility] Work Phone: Start: 01-14-2025 End: 01-14-2025 Departed Referred Laverne Lea MD -[facility] Start: 01-14-2025 End: 01-14-2025 ambulatory Laverne VICTORIA Facility:[facility] Start: 01-10-2025 End: 01-10-[address] Rosalind Rubalcava MD Work Phone: [facility] Work Phone: Start: 01-10-2025 End: 01-10-2025 Patient encounter procedure Jing Jones NP-C -[facility] Work Phone: Start: 01-10-2025 End: 01-10-2025 Departed Referred Laverne Lea MD -[facility] Start: 01-09-2025 End: 01-10-[address] Rosalind Rubalcava MD Work Phone: [facility] Work Phone: Start: 01-09-2025 End: 01-09-2025 Patient encounter procedure Jing Jones NP-C -[facility] Work Phone: Start: 01-08-2025 End: 01-08-[address] Rosalind Rubalcava MD Work Phone: [facility] Work Phone: Start: 01-08-2025 End: 01-08-2025 Patient encounter procedure Jing Jones [employer]C -[facility] Work Phone: Start: 12-24-2024 End: 12-24-[address] Rosalind Rubalcava MD Work Phone: [facility] Work Phone: Start: 12-24-2024 End: 12-24-2024 [facility] [place] [address] Start: 12-24-2024 Registered Referred Laverne [facility] [place] Start: 12-24-2024 End: 12-24-2024 ambulatory Efbeverly Lea OLS Facility:[facility] Start: 12-10-2024 End: 12-10-[address] Rosalind Rubalcava MD Work Phone: [facility] Work Phone: Start: 12-10-2024 End: 12-10-2024 Departed Referred Laverne Lea MD -[facility] Start: 12-10-2024 End: 12-10-2024 ambulatory Efbeverly Lea OLS Facility:[facility] Start: 11-12-2024 ambulatory Efbeverly VICTORIA Facility:[facility] Start: 11-12-2024 [facility] [place] Start: 10-15-2024 End: 10-15-2024 [facility] [address] Start: 10-15-2024 End: 10-15-2024 ambulatory Efbeverly VICTORIA Facility:[facility] Start: 10-01-2024 ambulatory Efbeverly badillo OLS Facility:[facility] Start: 10-01-2024 [facility] [place] [address] Start: 09-21-2024 End: 09-21-2024 ambulatory Jing Jones NP Facility:[facility] Start: 09-21-2024 End: 09-21-2024 Patient encounter procedure Jing Jones [employer] -[facility] Work Phone: Start: 09-13-2024 ambulatory Efbeverly badillo OLS Facility:[facility] Start: 09-13-2024 Registered Referred [facility]ne [facility] [address] [place] Start: 09-10-2024 ambulatory Laverne badillo OLS Facility:[facility] Start: 09-10-2024 Registered Referred Laverne Lea MD Replaced by [facility] Start: 09-03-2024 End: 09-03-2024 ambulatory Jing Robert [employer] Facility:[facility] Start: 08-20-2024 End: 08-20-2024 ambulatory Laverne Lea OLS Facility:[facility] Start: 08-13-2024 ambulatory Vinhnate Dunne aby OLS Facility:[facility] Start: 07-30-2024 End: 07-30-2024 ambulatory Jingjulio Romeroreggie [employer] Facility:[facility] Start: 07-19-2024 End: 07-19-2024 ambulatory Doe Orr Facility:[facility] Start: 07-16-2024 ambulatory Laverne Uzair aby OLS Facility:[facility] Start: 07-09-2024 ambulatory Leonorabeverly Uzair badillo OLS Facility:[facility] Start: 06-25-2024 ambulatory Laverne Uzair badillo OLS Facility:[facility] Start: 06-14-2024 ambulatory Rosalind Khadar [facility]: [facility] Start: 06-11-2024 ambulatory Laverne Uzair badillo OLS Facility:[facility] Start: 06-01-2024 ambulatory Laverne Moralezg aby OLS Facility:[facility] Start: 05-31-2024 ambulatory Laverne Uzair aby OLS Facility:[facility] Start: 05-29-2024 End: 05-29-2024 ambulatory Leonorabeverly Kirtnetoayo [facility] Start: 05-28-2024 End: 05-28-2024 ambulatory Jing Robert [employer] Facility:[facility] Start: 05-23-2024 End: 05-27-2024 ambulatory ROSALIND RUBALCAVA MD Facility:[facility] Start: 05-23-2024 End: 05-27-2024 Outreach Lab ROSALIND RUBALCAVA MD [facility] Start: 05-10-2024 ambulatory Rosalind Rubalcava Facility: [facility] Start: 04-25-2024 End: 04-25-2024 ambulatory Doe Orr Facility:[facility] Start: 04-19-2024 End: 04-19-2024 Emergency department patient visit Rosalind Rubalcava Facility:[facility] Start: 04-07-2024 End: 04-08-2024 Emergency department patient visit Rosalind Rubalcava Facility:[facility] Start: 04-01-2024 End: 04-02-2024 ambulatory Fausto Wright Facility:[facility] Start: 03-06-2024 End: 03-06-2024 ambulatory ROSALIND RUBALCAVA MD Facility:[facility] Start: 03-03-2024 End: 05-21-2024 ambulatory ROSALIND RUBALCAVA MD Facility:R Start: 01-15-2024 Non-patient / Non-visit Dr. Rosalind Rubalcava Work Phone: [facility] Work Phone: Start: 01-13-2024 Non-patient / Non-visit Dr. Rosalind Rubalcava Work Phone: [facility] Start: 01-13-2024 End: 01-13-[address] Rosalind Rubalcava Work Phone: [facility] Work Phone: Start: 01-13-2024 End: 01-13-[address] Rosalind Rubalcava Work Phone: [facility] Work Phone: Start: 12-28-2023 End: 12-28-[address] Rosalind Rubalcava Work Phone: [facility] Work Phone: Start: 12-28-2023 End: 12-28-[address] Rosalind Rubalcava Work Phone: [facility]Labor[facility] Work Phone: Start: 12-15-2023 End: 12-15-[address] Rosalind Rubalcava Work Phone: [facility] Work Phone: Start: 12-15-2023 End: 12-15-[address] Rosalind Rubalcava Work Phone: [facility] Work Phone: Start: 11-20-2023 End: 11-21-2023 Emergency department patient visit Dr. Rosalind Rubalcava Work Phone: [facility]Emergency Department Work Phone: Start: 11-10-2023 End: 11-10-[address] Rosalind Rubalcava Work Phone: [facility] Work Phone: Start: 11-04-2023 End: 11-04-[address] [facility] Start: 11-01-2023 End: 11-01-2023 ambulatory ROSALIND RUBALCAVA MD Facility:[facility] Start: 10-24-2023 End: 10-24-[address] Rosalind Rubalcava Work Phone: [facility] Work Phone: Start: 10-24-2023 End: 10-24-[address] Rosalind Rubalcava Work Phone: [facility] Work Phone: Start: 09-22-2023 End: 09-22-2023 ambulatory [facility] Facility:[facility] Start: 09-22-2023 End: 09-22-2023 Patient encounter procedure ROSALIND RUBALCAVA MD [facility] Start: 08-15-2023 Non-patient / Non-visit Dr. Rosalind Rubalcava Work Phone: [facility] Work Phone: Start: 08-15-2023 Dr. Rosalind willis Work Phone: [facility] Work Phone: Start: 08-14-2023 End: 08-15-2023 Evaluation and management of inpatient Dr. Rosalind Rubalcava Work Phone: [facility] Work Phone: Start: 08-14-2023 End: 08-15-[address] Rosalind Rubalcava Work Phone: [facility] Work Phone: Start: 08-14-2023 End: 08-15-2023 Dr. Rosalind Rubalcava Work Phone: [facility] Work Phone: Start: 2023 End: 08-13-2023 ambulatory ROSALIND RUBALCAVA MD Facility:B Start: 2023 End: 08-13-2023 Outreach Lab ROSALIND RUBALCAVA MD [facility] Start: 08-04-2023 End: 08-04-2023 ambulatory ROSALIND RUBALCAVA MD Facility:[facility] Start: 05-17-2023 End: 06-10-2023 Evaluation and management of inpatient Dr. Rosalind Rubalcava Work Phone: [facility] Start: 05-17-2023 End: 06-10-2023 Dr. [facility]alind [facility]alcava [facility] Start: 05-17-2023 Non-patient / Non-visit Dr. Rosalind Rubalcava Work Phone: [facility] Work Phone: Start: 05-17-2023 Dr. Rosalind willis Work Phone: [facility] Work Phone: Start: 05-16-2023 Non-patient / Non-visit Dr. Rosalind Rubalcava Work Phone: [facility] Work Phone: Start: 05-16-2023 Dr. Rosalind willis Work Phone: [facility] Work Phone: Start: 05-15-2023 Non-patient / Non-visit Dr. Rosalind Rubalcava Work Phone: [facility] Work Phone: Start: 05-15-2023 Dr. Rosalind willis Work Phone: [facility] Work Phone: Start: 05-14-2023 Non-patient / Non-visit Dr. Rosalind Rubalcava Work Phone: [facility] Work Phone: Start: 05-14-2023 Dr. Rosalind willis Work Phone: [facility] Work Phone: Start: 05-14-2023 Non-patient / Non-visit Dr. Rosalind Rubalcava Work Phone: [facility] Start: 05-14-2023 Dr. Rosalind willis Work Phone: [facility] Start: 05-13-2023 Non-patient / Non-visit Dr. Rosalind Rubalcava Work Phone: [facility] Start: 05-13-2023 Dr. Rosalind willis Work Phone: [facility] Start: 05-13-2023 End: 05-17-2023 Evaluation and management of inpatient Dr. Rosalind Rubalcava [facility] Work Phone: Start: 05-13-2023 Non-patient / Non-visit Dr. Rosalind Rubalcava Work Phone: [facility] Work Phone: Start: 05-13-2023 End: 05-17-2023 Dr. Rosalind Rubalcava Work Phone: [facility] Work Phone: Start: 04-20-2023 End: 04-20-[address] Rosalind Rubalcava Work Phone: [facility] Work Phone: Start: 04-20-2023 End: 04-20-2023 Dr. Rosalind Rubalcava Work Phone: [facility] Work Phone: Start: 03-04-2023 End: 03-08-2023 Outreach Lab [employer] [facility] Start: 12-17-2022 End: 12-17-2022 Patient encounter procedure ROSALIND RUBALCAVA MD [facility] Start: 05-11-2022 End: 05-11-2022 Patient encounter procedure ROSALIND RUBALCAVA MD [facility] Start: 04-06-2022 End: 04-06-2022 Patient encounter procedure Tejal Rivera MD Work Phone: Urology Comment on above: Urge incontinence (P rimary Dx) Start: 03-24-2022 End: 03-24-2022 Patient encounter procedure TEJAL RIVERA MD [facility] Start: 03-23-2022 Telephone encounter Tejal Rivera MD Work Phone: Urology Comment on above: Orders Start: 02-19-2022 End: 02-23-2022 Outreach Lab [employer] [facility] Start: 11-10-2021 End: 11-10-2021 Patient encounter procedure ROSALIND RUBALCAVA MD [facility] Start: 09-17-2021 End: 09-21-2021 Outreach Lab BASILIA MI DO [facility] Start: 09-02-2021 End: 09-02-2021 Patient encounter procedure Tejal Rivera MD Work Phone: Urology Comment on above: Urge incontinence (P rimary Dx) Start: 08-19-2021 Telephone encounter Tejal Rivera MD Work Phone: Urology Comment on above: Appointment; Patient Question Start: 06-17-2021 End: 06-17-2021 Patient encounter procedure Tejal Rivera MD Work Phone: Urology Comment on above: Urge incontinence (P rimary Dx); Nocturia Start: 08-16-2018 Patient encounter SAMIR BEJARANO Lexie acility:[facility] Start: 07-19-2018 Patient encounter TEJAL RIVERA Facility:[facility] Start: 07-13-2018 End: 07-13-2018 Patient encounter SAMIR BEJARANO Facility:[facility] Start: 07-03-2018 Patient encounter JONA JUAN A Lexie acility:[facility] Start: 06-15-2018 End: 06-15-2018 Patient encounter SAMIR ARYA Facility:[facility] Start: 05-15-2018 Patient encounter SAMIR Owen acility:[facility] Start: 04-13-2018 End: 04-13-2018 Patient encounter SAMIR BEJARANO Facility:[facility] Start: 03-22-2018 End: 03-22-2018 Patient encounter SAMIR BEJARANO Facility:[facility] Start: 03-15-2018 Patient encounter SAMIR Owen acility:[facility] Start: 02-22-2018 End: 02-22-2018 Patient encounter SAMIR ARYA Facility:[facility] Start: 01-26-2018 End: 01-26-2018 Patient encounter JONA VELAZCO Facility:[facility] Start: 01-16-2018 Patient encounter ROSALIND calderaty:[facility] Start: 01-11-2018 End: 01-11-2018 Patient encounter TEJAL RIVERA Facility:[facility] Start: 12-28-2017 End: 12-29-2017 Patient encounter JONA VELAZCO Facility:[facility] Start: 12-28-2017 End: 12-28-2017 Patient encounter JONA VELAZCO Facility:[facility] Start: 10-06-2017 End: 10-06-2017 Patient encounter JONA VELAZCO Facility:[facility] Start: 09-20-2017 Patient encounter TEJAL RIVERA Facility:[facility] Start: 08-19-2017 End: 08-19-2017 [facility] Procedures Date Procedure Procedure Detail Performing Clinician Start: 11-12-2024 Measurement of renal function Dr. Rosalind Rubalcava MD Work Phone: Comment on above: GFR Calc Start: 11-12-[address] Rosalind willis MD Work Phone: Start: 11-20-2023 X-ray of lumbar spine, two or three views Dr. Rosalind Rubalcava Work Phone: Start: 11-20-2023 Plain X-ray of tibia and fibula Dr. Nathan Rubalcava Work Phone: Start: 08-14-2023 Bacteria identified in Blood by Culture Dr. Rosalind Rubalcava Work Phone: Start: 08-14-[address] Rosalind Rubalcava Work Phone: Start: 08-14-[address] Rosalind uRbalcava Work Phone: Start: 08-14-2023 Dr. Rosalind Rubalcava Work Phone: Start: 08-14-2023 Plain chest X-ray Dr. Rosalind Rubalcava Work Phone: Start: 05-31-[address] Rosalind Rubalcava Work Phone: Start: 05-31-[address] Rosalind Rubalcava Work Phone: Start: 05-29-[address] Nathan Rubalcava Work Phone: Start: 05-14-2023 Radionuclide imaging of liver and/or biliary tract using radioactive isotope Dr. Rosalind Rubalcava Work Phone: Start: 05-13-2023 End: 05-13-[address] Rosalind Rubalcava Work Phone: Start: 05-13-[address] Rosalind Rubalcava Work Phone: Start: 05-13-2023 Coronavirus COVID-[address] Rosalind stock Work Phone: Start: 05-13-2023 Dr. Rosalind Rubalcava Work Phone: Start: 05-13-2023 Computerized axial tomography of lumbar spine with contrast Dr. Rosalind Rubalcava Work Phone: Start: 05-13-2023 Computed tomography of abdomen and pelvis with contrast Dr. Rosalind Rubalcava Work Phone: Start: 05-12-2023 US scan of gallbladder Dr. Rosalind Rubalcava Work Phone: Start: 05-12-2023 Plain chest X-ray Dr. Rosalind Rubalcava Work Phone: Start: 05-12-2023 CT of head without contrast Dr. Rosalind evans Work Phone: Start: 05-12-2023 Bacteria identified in Blood by Culture Dr. Rosalind Rubalcava Work Phone: Start: 05-12-[address] Rosalind Rubalcava Work Phone: Start: 05-12-2023 Dr. Rosalind Rubalcava Work Phone: Start: 04-06-2022 Urnls dip stick/tablet rgnt auto w/o microscopy Tejal Rivera MD Work Phone: Start: 09-02-2021 Urnls dip stick/tablet rgnt auto w/o microscopy Tejal Rivera MD Work Phone: Start: 05-31-2017 Coronary artery bypass grafts x 4 JING Hodge SHMUEL DO Comment on above: CABG x 4 using JAY, RSVG, sternalplatin g and insert A/V wires Start: 05-27-2017 Cardiac catheterization BASILIA Hatfield O Start: 05-03-2017 History of coronary artery bypass grafting H/O coronary artery bypass surgery Dr. Rosalind Rubalcava Work Phone: Comment on above: JAY to LAD, SVG to OM2 and sequetially to diagonal, SVG to PDA 06/01/17 Start: 10-14-2016 Cystoscopy BASILIA MI DO Comment on above: with botox injection Start: 07-12-2016 Repair of umbilical hernia BASILIA Thomas DO Comment on above: with mesh Start: 06-19-2015 Neurostimulator, device (physical object) BASILIA MI DO Comment on above: IMPLANTABLE DEVICE FOR BLADDER INCONTINE NCE. NEAR RIGHT HIP POSTERIOR Start: 10-03-2005 Structure of left knee (body structure) BASILIA MI DO Appendectomy BASILIA MI DO Arthroplasty of knee BASILIA MI DO Comment on above: replacement done in 1999 LEFT Cholecystectomy BASILIA STOCK DO Hysterectomy BASILIA MI DO Structure of right f oot (body structure) BASILIA MI DO Plan of Treatment Date Care Activity Detail Author Start: 11-20-2023 [facility] Start: 08-15-2023 Patient discharge [facility] Start: 08-15-2023 Oxygen therapy [facility] Start: 08-14-2023 Ambulation without limitation [facility] Start: 08-14-2023 Assessment of risk o f venous thromboembolism [facility] Start: 08-14-2023 Care regimes management [facility] Start: 08-14-2023 Insertion of cathete r into peripheral vein [facility] Start: 08-14-2023 Notification of physician [facility] Start: 08-14-2023 Providing care accor ding to standard [facility] Start: 08-14-2023 Referral to occupati onal therapist [facility] Start: 08-14-2023 Referral to service [facility] Start: 08-14-2023 Verification routine [facility] Start: 08-14-2023 Admission procedure [facility] Start: 08-14-2023 Hospital admission, emergency, from emergency room, medical nature [facility] Start: 08-14-2023 End: 08-14-2023 [facility] Start: 08-14-2023 End: 08-14-2023 Blood culture [facility] Start: 06-10-2023 Development of care plan [facility] Start: 06-10-2023 Patient discharge [facility] Start: 06-09-2023 [facility] Start: 06-07-2023 Referral to service [facility] Start: 06-06-2023 [facility] Start: 06-02-2023 [facility] Start: 05-31-2023 End: 06-01-2023 [facility] Start: 05-31-2023 [facility] Start: 05-19-2023 Speech therapy management [facility] Start: 05-18-2023 Speech therapy assessment [facility] Start: 05-18-2023 Development of care plan [facility] Start: 05-18-2023 Developing a treatme nt plan [facility] Start: 05-17-2023 Admission procedure [facility] Start: 05-17-2023 Measuring intake and output [facility] Start: 05-17-2023 Patient referral to dietitian [facility] Start: 05-17-2023 Referral to occupati onal therapist [facility] Start: 05-17-2023 Referral to service [facility] Start: 05-17-2023 Vital signs measurements [facility] Start: 05-17-2023 [facility] Start: 05-17-2023 Following clinical p athway protocol [facility] Start: 05-17-2023 Patient discharge [facility] Start: 05-17-2023 Patient referral to dietitian [facility] Start: 05-16-2023 [facility] Start: 05-13-2023 [facility] Start: 05-13-2023 Catheterization of vein [facility] Start: 05-13-2023 Cardiac monitoring [facility] Start: 05-13-2023 Catheterization of vein [facility] Start: 05-13-2023 Continuous pulse oximetry [facility] Start: 05-13-2023 Notification of physician [facility] Start: 05-13-2023 Application of intermittent pneumatic compression device [facility] Start: 05-13-2023 Aspiration precautions [facility] Start: 05-13-2023 Assessment of risk o f venous thromboembolism [facility] Start: 05-13-2023 Care regimes management [facility] Start: 05-13-2023 Fall prevention [facility] Start: 05-13-2023 Insertion of cathete r into peripheral vein [facility] Start: 05-13-2023 Introduction of urin sumeet catheter [facility] Start: 05-13-2023 Measuring intake and output [facility] Start: 05-13-2023 Notification of physician [facility] Start: 05-13-2023 Oxygen therapy [facility] Start: 05-13-2023 Providing care accor ding to standard [facility] Start: 05-13-2023 Provision of activit y privileges [facility] Start: 05-13-2023 Referral to gastroenterology service [facility] Start: 05-13-2023 Referral to occupati onal therapist [facility] Start: 05-13-2023 Referral to service [facility] Start: 05-13-2023 Following clinical p athway protocol [facility] Start: 05-13-2023 Admission procedure [facility] Start: 05-13-2023 Inhalation therapy procedure [facility] Start: 05-13-2023 End: 05-13-2023 [facility] Start: 05-12-2023 End: 05-12-2023 Blood culture [facility] Start: 05-12-2023 Bacteria identified in Blood by Culture Blood Culture [facility] Start: 09-29-2022 End: 11-29-2022 Bacteria identified in Urine by Culture URINE CULTURE Microbiology Routine Urge incontinence Expected: 09/29/2022 (Approximate), Expires: 11/29/2022 [facility] Work Phone: Comment on above: Expected: 09/29/2022 (Approximate), Expires: 11/29/2022 Start: 06-03-2022 Influenza vaccination INFLUENZA (#1) [facility] Start: 03-23-2022 End: 03-23-2023 Bacteria identified in Urine by Culture URINE CULTURE Microbiology Routine Urinary tract infection without hematuria, site unspecified Expected: 03/23/2022, Expires: 03/23/2023 [facility] Work Phone: Comment on above: Expected: 03/23/2022 , Expires: 03/23/2023 Start: 12-06-2021 COVID-19 VACCINE (4 - Booster for Moderna series) COVID-19 VACCINE (4 - Booster for Moderna series) [facility] Start: 10-03-2021 ADVANCE DIRECTIVE DISCUSSION ADVANCE DIRECTIVE DISCUSSION [facility] Start: 06-19-2021 COVID-19 VACCINE (3 - Booster for Moderna series) COVID-19 VACCINE (3 - Booster for Moderna series) [facility] Start: 06-03-2021 Influenza vaccination INFLUENZA (#1) [facility] Start: 2007 ADVANCE DIRECTIVE DISCUSSION ADVANCE DIRECTIVE DISCUSSION [facility] Start: 2007 BONE DENSITY BONE DENSITY [facility] Start: 2007 PNEUMOCOCCAL: 65+ (1 - PCV) PNEUMOCOCCAL: 65+ (1 - PCV) [facility] Start: 2007 PNEUMOVAX AGE 65 AND OVER WITH 5YR LOOKBACK (#1) PNEUMOVAX AGE 65 AND OVER WITH 5YR LOOKBACK (#1) [facility] Start: 1992 SHINGRIX VACCINE (1 of 2) SAM GRIX VACCINE (1 of 2) [facility] Start: 1987 DIABETES SCREEN DIABETES SCREEN [facility] Start: 1961 Urine microalbumin profile DTA P,TDAP,TD (1 - Tdap) [facility] Start: 1960 HEPATITIS [facility]: 1954 Adult depression scr eening assessment DEPRESSION SCREENING [facility] Patient Education ED Fracture, V ertebral Compression ED Hematoma [facility] Work Phone: Patient referral [facility] Work Phone: [facility] Immunizations Immunization Date Immunization Notes Care Provider Fa verenice 05-26-2023 Covid Moderna Bivale nt Booster Dr. Rosalind Rubalcava Work Phone: [facility] 05-26-2023 SARS-CoV-2 (CV19)mRNA-1273 bivalent vac 1 ROSALIND RUBALCAVA MD [facility] Comment on above: Result Comment: 2022: [id number] 07-01-2022 influenza virus vacc ine, unspecified formulation ROSALIND RUBALCAVA MD [facility] 08-08-2021 SARS-CoV-2 (COVID-19 ) mRNA-1273 vaccine BASILIA MI DO [facility] Comment on above: Result Comment: 2020: [id number] 06-25-2021 influenza virus vacc ine, unspecified formulation BASILIA MI DO [facility] 06-25-2021 Influenza, high dose seasonal Dr. Rosalind Rubalcava MD Work Phone: [facility] 06-25-2021 influenza, high dose seasonal, preservative-free Dr. Rosalind Rubalcava Work Phone: [facility] 12-22-2020 Covid (Moderna) Dr. Rosalind evans Work Phone: [facility] 12-17-2020 SARS-CoV-2 (COVID-19 ) mRNA-1273 vaccine BASILIA MI DO [facility] Comment on above: Result Comment: 2020: [id number] 11-20-2020 SARS-CoV-2 (COVID-19 ) mRNA-1273 vaccine BASILIATRISH MI DO [facility] 09-16-2020 zoster vaccine recombinant BASILIA MI DO [facility] 07-25-[address] Rosalind Rubalcava Work Phone: [facility] 07-16-2020 zoster vaccine recombinant BASILIA ESCALANTELAY DO [facility] 06-25-2020 influenza virus vacc ine, unspecified formulation BASILIA IM DO [facility] 06-25-2020 influenza, injectabl e, quadrivalent, preservative free Dr. Rosalind Rubalcava Work Phone: [facility] 06-10-2020 influenza virus vacc ine, unspecified formulation BASILIA MI DO [facility] 06-10-2020 Influenza, high dose seasonal Dr. Rosalind Rubalcava MD Work Phone: [facility] 06-10-2020 influenza, high dose seasonal, preservative-free Dr. Rosalind Rubalcava Work Phone: [facility] 07-11-2019 influenza, injectabl e, quadrivalent, preservative free; 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: [Fluarix PF Quadrivalent ] BASILIA MI DO [facility] 06-03-2018 influenza virus vacc ine, unspecified formulation BASILIA MI DO [facility] 06-03-2018 influenza, injectabl e, quadrivalent, preservative free Dr. Rosalind Rubalcava Work Phone: [facility] 08-16-2017 tetanus toxoid, redu chiqui diphtheria toxoid, and acellular pertussis vaccine, adsorbed BASILIA MI DO [facility] 07-13-[address] Rosalind Rubalcava Work Phone: [facility] 07-13-2017 influenza, injectabl e, quadrivalent, preservative free BASILIA MI DO [facility] 10-27-2016 pneumococcal conjuga te vaccine, 13 valent BASILIA MI DO [facility] 06-11-2016 influenza virus vacc ine, unspecified formulation BASILIA MI DO [facility] 06-11-2016 influenza, injectabl e, quadrivalent, preservative free Dr. Rosalind Rubalcava Work Phone: [facility] 08-26-2015 influenza virus vacc ine, unspecified formulation BASILIA MI DO [facility] 08-26-2015 influenza, injectabl e, quadrivalent, preservative free Dr. Rosalind Rubalcava Work Phone: [facility] 08-23-2014 influenza virus vacc ine, unspecified formulation BASILIA MI DO [facility] 08-23-2014 influenza, injectabl e, quadrivalent, preservative free Dr. Rosalind Rubalcava Work Phone: [facility] 02-06-2013 pneumococcal polysaccharide vaccine, 23 valent BASILIA MI DO [facility] 04-08-2011 zoster vaccine, live BASILIA MI DO [facility] 07-04-2009 influenza, injectabl e, quadrivalent, preservative free Dr. Rosalind Rubalcava Work Phone: [facility] 08-16-2002 pneumococcal polysaccharide vaccine, [address] Rosalind Rubalcava Work Phone: [facility] Payers Date Payer Category Payer Self-pay [id number] 2016 Unknown [id number] 2014 Unknown [id number] 1942 Unknown [id number] 2.16.8 40.1.624332.3.579.2.278 1942 Unknown [id number] 2.16.8 40.1.608826.3.579.2.278 1942 Unknown [id number] 2.16.8 40.1.525910.3.579.2.278 1942 Unknown [id number] 2.16.8 40.1.978866.3.579.2.278 1942 Unknown [id number] 2.16.8 40.1.660234.3.579.2.278 1942 Unknown [id number] 2.16.8 40.1.563459.3.579.2.278 1942 Unknown [id number] 2.16.8 40.1.772705.3.579.2.278 1942 Unknown [id number] 2.16.8 40.1.538794.3.579.2.278 1942 Unknown [id number] 2.16.8 40.1.523117.3.579.2.278 1942 Unknown [id number] 2.16.8 40.1.609446.3.579.2.278 1942 Unknown [id number] 2.16.8 40.1.502800.3.579.2.278 1942 Unknown [id number] 2.16.8 40.1.581426.3.579.2.278 1942 Unknown [id number] 2.16.8 40.1.679008.3.579.2.278 1942 Unknown [id number] 2.16.8 40.1.337431.3.579.2.278 1942 Unknown [id number] 2.16.8 40.1.060125.3.579.2.278 1942 Unknown [id number] 2.16.8 40.1.259439.3.579.2.278 1942 Unknown [id number] 2.16.8 40.1.525362.3.579.2.278 1942 Unknown [id number] 2.16.8 40.1.321364.3.579.2.278 1942 Unknown [id number] 2.16.8 40.1.606447.3.579.2.627 1942 Unknown [id number] 2.16.8 40.1.917850.3.579.2.627 1942 Unknown [id number] 2.16.8 40.1.973853.3.579.2.627 1942 Unknown [id number] 2.16.8 40.1.753910.3.579.2.62 1942 Unknown [id number] 2.16.8 40.1.601563.3.579.2.627 1942 Unknown [id number] 2.16.8 40.1.804874.3.579.2.627 1942 Unknown [id number] 2.16.8 40.1.098766.3.579.2.627 Unknown [id number] 2.16.8 40.1.479204.3.579.2.462 Unknown [id number] 2.16.8 40.1.492406.3.579.2.462 Unknown [id number] 2.16.8 40.1.326496.3.579.2.462 Unknown [id number] 2.16.8 40.1.603549.3.579.2.462 Unknown [id number] 2.16.8 40.1.651697.3.579.2.462 Unknown [id number] 2.16.8 40.1.032819.3.579.2.462 Unknown [id number] 2.16.8 40.1.888680.3.579.2.462 Unknown [id number] 2.16.8 40.1.704856.3.579.2.462 Unknown [id number] 2.16.8 40.1.374718.3.579.2.462 Unknown [id number] 2.16.8 40.1.711267.3.579.2.462 Unknown [id number] 2.16.8 40.1.832066.3.579.2.462 Unknown [id number] 2.16.8 40.1.805729.3.579.2.462 Unknown [id number] 2.16.8 40.1.755585.3.579.2.462 Unknown [id number] 2.16.8 40.1.545543.3.579.2.462 Unknown [id number] 2.16.8 40.1.454434.3.579.2.462 Unknown [id number] 2.16.8 40.1.257283.3.579.2.462 Unknown [id number] 2.16.8 40.1.831001.3.579.2.462 Unknown [id number] 2.16.8 40.1.106489.3.579.2.462 Unknown [id number] 2.16.8 40.1.496136.3.579.2.462 Unknown [id number] 2.16.8 40.1.537203.3.579.2.462 Unknown [id number] 2.16.8 40.1.822717.3.579.2.462 Unknown [id number] 2.16.8 40.1.186614.3.579.2.462 Unknown [id number] 2.16.8 40.1.763249.3.579.2.462 Unknown [id number] 2.16.8 40.1.028996.3.579.2.462 Unknown [id number] 2.16.8 40.1.239679.3.579.2.462 Unknown [id number] 2.16.8 40.1.371131.3.579.2.462 Unknown [id number] 2.16.8 40.1.528225.3.579.2.462 Unknown [id number] 2.16.8 40.1.796251.3.579.2.462 Unknown [id number] 2.16.8 40.1.449228.3.579.2.462 Unknown [id number] 2.16.8 40.1.082757.3.579.2.462 Unknown [id number] 2.16.8 40.1.182443.3.579.2.462 Unknown [id number] 2.16.8 40.1.448696.3.579.2.462 Unknown [id number] 2.16.8 40.1.765522.3.579.2.462 Unknown [id number] 2.16.8 40.1.716804.3.579.2.462 Unknown [id number] 2.16.8 40.1.171470.3.579.2.462 Unknown [id number] 2.16.8 40.1.469254.3.579.2.462 Unknown [id number] 2.16.8 40.1.715633.3.579.2.462 Unknown [id number] 2.16.8 40.1.877830.3.579.2.462 Unknown [id number] 2.16.8 40.1.685354.3.579.2.462 Unknown [id number] 2.16.8 40.1.971756.3.579.2.462 Unknown [id number] 2.16.8 40.1.312803.3.579.2.462 Unknown [id number] 2.16.8 40.1.427218.3.579.2.462 Unknown [id number] 2.16.8 40.1.941356.3.579.2.462 Social History Date Type Detail Facility Start: 06-17-2021 End: 07-17-2024 Tobacco smoking status NHIS Former smoker [facility] Comment on above: Tobacco/Smoke Exposu re: none Start: 08-19-2017 End: 06-17-2021 Tobacco use and exposure Never used [facility] Start: 06-17-2021 End: 04-06-2022 Alcohol intake Current non-drinker of alcohol (finding) [facility] Start: 1940 Sex Assigned At Not on file [facility] Exposure to SARS-CoV-2 (event) Not sure [facility] Start: 04-13-2019 Never smoked t obacco (finding) [facility] Comment on above: Tobacco/Smoke Exposu re: none Start: 1940 Sex Assigned At Female [facility] Start: 05-13-2023 End: 11-20-2023 Tobacco smoking status NHIS Unknown if ever smoked [facility] Start: 01-19-2021 None [facility] Start: 01-19-2021 Alone [facility] Start: 09-14-2017 Non-smoker [facility] Start: 01-02-2025 End: 01-09-2025 Sex Female (finding) [facility] NEGATED: Highlighted row [facility] Medical Equipment Procedure Code Equipment Code Equipment Origin al Text Equipment Identifier Dates ERCP (endoscopic retrograde cholangiopancreatog jose) RX STENT/10 X 5CM FDA Start: 05-13-2023 ERCP (endoscopic retrograde cholangiopancreatog jose) RX STENT/10 X 5CM FDA Start: 05-13-2023 ERCP (endoscopic retrograde cholangiopancreatog jose) FDA Start: 05-13-2023 ERCP (endoscopic retrograde cholangiopancreatog jose) FDA Start: 05-13-2023 ERCP (endoscopic retrograde cholangiopancreatog jose) RX STENT/10 X 5CM FDA Start: 05-13-2023 ERCP (endoscopic retrograde cholangiopancreatog jose) RX STENT/10 X 5CM FDA Start: 05-13-2023 ERCP (endoscopic retrograde cholangiopancreatog jose) RX STENT/10 X 5CM FDA Start: 05-13-2023 ERCP (endoscopic retrograde cholangiopancreatog jose) RX STENT/10 X 5CM FDA Start: 05-13-2023 ERCP (endoscopic retrograde cholangiopancreatog jose) RX STENT/10 X 5CM FDA Start: 05-13-2023 ERCP (endoscopic retrograde cholangiopancreatog jose) RX STENT/10 X 5CM FDA Start: 05-13-2023 ERCP (endoscopic retrograde cholangiopancreatog jose) RX STENT/10 X 5CM FDA Start: 05-13-2023 ERCP (endoscopic retrograde cholangiopancreatog jose) RX STENT/10 X 5CM FDA Start: 05-13-2023 ERCP (endoscopic retrograde cholangiopancreatog jose) RX STENT/10 X 5CM FDA Start: 05-13-2023 ERCP (endoscopic retrograde cholangiopancreatog jose) RX STENT/10 X 5CM FDA Start: 05-13-2023 ERCP (endoscopic retrograde cholangiopancreatog jose) RX STENT/10 X 5CM FDA Start: 05-13-2023 Start: 03-17-2017 Comment on above: twice daily. USE DIRECTED. twice daily. BD UF MINI PEN NEEDLE [id number] Start: 02-04-[address] Strips Start: 04-09-2020 Lancets Start: 11-16-2019 BD UF MINI PEN NEEDLE [id number] Start: 02-04-[address] Strips Start: 04-09-2020 Lancets Start: 11-16-2019 BD UF MINI PEN NEEDLE [id number], See Instructions, USE DIRECTED TWICE A DAY, # 100 syringe, 11 Refill(s), Pharmacy: [facility] [address], 158.75, cm, 12/13/19 11:28:00 EDT, Height, 89.6, kg, 12/13/19 11:28:00 EDT, Dosing Weight Start: 02-04-2020 See Instructions , 3 bottle of 100, testing once daily, 90 day supply DX: E11.9, # 300 EA, 3 Refill(s), [facility], Diabetes, 158, cm, 04/09/20 16:02:00 EDT, Height, 90.8, kg, 04/09/20 16:02:00 EDT, Dosing Weight Start: 04-09-2020 See Instructions , Micro Thin lancets 33G use as directed once daily box of 100 DX E11.09, # 1 EA, 11 Refill(s), [facility], 158, cm, 11/14/19 13:17:00 EST, Height, 88.8, kg, 11/14/19 13:17:00 EST, Dosing Weight Start: 11-16-2019 See Instructions , qs for 1 month supply, BD UF mini pen needles [id number], DX: E11.9, # 1 EA, 11 Refill(s), [facility], 157.5, cm, 11/04/20 13:17:00 EST, Height, 90.7, kg, 11/04/20 13:17:00 EST, Dosing Weight Start: 11-04-2020 BD UF MINI PEN NEEDLE [id number], See Instructions, USE DIRECTED TWICE A DAY, # 100 syringe, 11 Refill(s), Pharmacy: [facility] [address], 158.75, cm, 12/13/19 11:28:00 EDT, Height, 89.6, kg, 12/13/19 11:28:00 EDT, Dosing Weight Start: 02-04-2020 See Instructions , 3 bottle of 100, testing once daily, 90 day supply DX: E11.9, # 300 EA, 3 Refill(s), [facility], Diabetes, 158, cm, 04/09/20 16:02:00 EDT, Height, 90.8, kg, 04/09/20 16:02:00 EDT, Dosing Weight Start: 04-09-2020 See Instructions , Micro Thin lancets 33G use as directed once daily box of 100 DX E11.09, # 1 EA, 11 Refill(s), [facility], 158, cm, 11/14/19 13:17:00 EST, Height, 88.8, kg, 11/14/19 13:17:00 EST, Dosing Weight Start: 11-16-2019 See Instructions , qs for 1 month supply, BD UF mini pen needles [id number], DX: E11.9, # 1 EA, 11 Refill(s), [facility], 157.5, cm, 11/04/20 13:17:00 EST, Height, 90.7, kg, 11/04/20 13:17:00 EST, Dosing Weight Start: 11-04-2020 BD UF MINI PEN NEEDLE [id number], See Instructions, USE DIRECTED TWICE A DAY, # 100 syringe, 11 Refill(s), Pharmacy: [facility] [address], 158.75, cm, 12/13/19 11:28:00 EDT, Height, 89.6, kg, 12/13/19 11:28:00 EDT, Dosing Weight Start: 02-04-2020 See Instructions , 3 bottle of 100, testing once daily, 90 day supply DX: E11.9, # 300 EA, 3 Refill(s), [facility], Diabetes, 158, cm, 04/09/20 16:02:00 EDT, Height, 90.8, kg, 04/09/20 16:02:00 EDT, Dosing Weight Start: 04-09-2020 See Instructions , Micro Thin lancets 33G use as directed once daily box of 100 DX E11.09, # 1 EA, 11 Refill(s), Pharmacy: [facility] #4[facility], 158, cm, 11/14/19 13:17:00 EST, Height, 88.8, kg, 11/14/19 13:17:00 EST, Dosing Weight Start: 11-16-2019 See Instructions , qs for 1 month supply, BD UF mini pen needles [id number], DX: E11.9, # 1 EA, 11 Refill(s), [facility], 157, cm, 04/07/22 10:54:00 EDT, Height, 86.3, kg, 04/07/22 10:54:00 EDT, Dosing Weight Start: 04-14-2022 BD UF MINI PEN NEEDLE [id number], See Instructions, USE DIRECTED TWICE A DAY, # 100 syringe, 11 Refill(s), Pharmacy: [facility] [address], 158.75, cm, 12/13/19 11:28:00 EDT, Height, 89.6, kg, 12/13/19 11:28:00 EDT, Dosing Weight Start: 02-04-2020 See Instructions , 3 bottle of 100, testing once daily, 90 day supply DX: E11.9, # 300 EA, 3 Refill(s), Diabetes Start: 06-18-2022 See Instructions , Micro Thin lancets 33G use as directed once daily box of 100 DX E11.09, # 1 EA, 11 Refill(s) Start: 06-18-2022 See Instructions , qs for 1 month supply, BD UF mini pen needles [id number], DX: E11.9, # 1 EA, 11 Refill(s), [facility], 157, cm, 04/07/22 10:54:00 EDT, Height, 86.3, kg, 04/07/22 10:54:00 EDT, Dosing Weight Start: 04-14-2022 BD UF MINI PEN NEEDLE [id number], See Instructions, USE DIRECTED TWICE A DAY, # 100 syringe, 11 Refill(s), Pharmacy: [facility] [address], 158.75, cm, 12/13/19 11:28:00 EDT, Height, 89.6, kg, 12/13/19 11:28:00 EDT, Dosing Weight Start: 02-04-2020 See Instructions , 3 bottle of 100, testing once daily, 90 day supply DX: E11.9, # 300 EA, 3 Refill(s), Diabetes Start: 06-18-2022 See Instructions , Micro Thin lancets 33G use as directed once daily box of 100 DX E11.09, # 1 EA, 11 Refill(s) Start: 06-18-2022 See Instructions , qs for 1 month supply, BD UF mini pen needles [id number], DX: E11.9, # 1 EA, 11 Refill(s), [facility], 157, cm, 04/07/22 10:54:00 EDT, Height, 86.3, kg, 04/07/22 10:54:00 EDT, Dosing Weight Start: 04-14-2022 BLADDER STIMULATOR FDA Start: BLADDER STIMULATOR FDA Start: BD UF MINI PEN NEEDLE [id number], See Instructions, USE DIRECTED TWICE A DAY, # 100 syringe, 11 Refill(s), Pharmacy: [facility] [address], 158.75, cm, 12/13/19 11:28:00 EDT, Height, 89.6, kg, 12/13/19 11:28:00 EDT, Dosing Weight Start: 02-04-2020 See Instructions , 3 bottle of 100, testing once daily, 90 day supply DX: E11.9, # 300 EA, 3 Refill(s), Diabetes Start: 06-18-2022 See Instructions , Micro Thin lancets 33G use as directed once daily box of 100 DX E11.09, # 1 EA, 11 Refill(s) Start: 06-18-2022 See Instructions , qs for 1 month supply, BD UF mini pen needles [id number], DX: E11.9, # 1 EA, 11 Refill(s), Pharmacy: [facility] [address], 155, cm, 06/16/23 13:11:00 EDT, Height, 85.5, kg, 06/16/23 12:56:00 EDT, Dosing Weight Start: 07-12-2023 FDA Start: FDA Start: BD UF MINI PEN NEEDLE [id number], See Instructions, USE DIRECTED TWICE A DAY, # 100 syringe, 11 Refill(s), Pharmacy: [email or web address], 158.75, cm, 12/13/19 11:28:00 EDT, Height, 89.6, kg, 12/13/19 11:28:00 EDT, Dosing Weight Start: 02-04-2020 See Instructions , 3 bottle of 100, testing once daily, 90 day supply DX: E11.9, # 300 EA, 3 Refill(s), Diabetes Start: 06-18-2022 See Instructions , Micro Thin lancets 33G use as directed once daily box of 100 DX E11.09, # 1 EA, 11 Refill(s) Start: 06-18-2022 See Instructions , qs for 1 month supply, BD UF mini pen needles [id number], DX: E11.9, # 1 EA, 11 Refill(s), Pharmacy: [facility] [address], 155, cm, 06/16/23 13:11:00 EDT, Height, 85.5, kg, 06/16/23 12:56:00 EDT, Dosing Weight Start: 07-12-2023 BLADDER STIMULATOR FDA Start: BLADDER STIMULATOR FDA Start: BLADDER STIMULATOR FDA Start: BLADDER STIMULATOR FDA Start: BLADDER STIMULATOR FDA Start: BD UF MINI PEN NEEDLE [id number], See Instructions, USE DIRECTED TWICE A DAY, # 100 syringe, 11 Refill(s), Pharmacy: [email or web address], 158.75, cm, 12/13/19 11:28:00 EDT, Height, 89.6, kg, 12/13/19 11:28:00 EDT, Dosing Weight Start: 02-04-2020 See Instructions , 3 bottle of 100, testing once daily, 90 day supply DX: E11.9, # 300 EA, 3 Refill(s), Pharmacy: [facility] #30, Diabetes, 154, cm, 08/31/23 11:39:00 EST, Height, 81, kg, 08/31/23 11:39:00 EST, Dosing Weight Start: 10-14-2023 See Instructions , Micro Thin lancets 33G use as directed once daily box of 100 DX E11.09, # 1 EA, 11 Refill(s), Pharmacy: [facility] #30, 154, cm, 08/31/23 11:39:00 EST, Height, 81, kg, 08/31/23 11:39:00 EST, Dosing Weight Start: 10-14-2023 See Instructions , qs for 1 month supply, BD UF mini pen needles [id number], DX: E11.9, # 1 EA, 11 Refill(s), Pharmacy: [place] [address], 154, cm, 08/31/23 11:39:00 EST, Height, 81, kg, 08/31/23 11:39:00 EST, Dosing Weight Start: 10-13-2023 BLADDER STIMULATOR FDA Start: BLADDER STIMULATOR FDA Start: BLADDER STIMULATOR FDA Start: BLADDER STIMULATOR FDA Start: BLADDER STIMULATOR FDA Start: BLADDER STIMULATOR FDA Start: Goals Date Patient Goal Desired Activity /State Functional Status Date Assessment Result Facility 08-15-2023 Functional status Bathroom Privilege [facility] Work Phone: 06-10-2023 Functional status Chair [facility] Work Phone: 06-10-2023 Functional status Fair [facility] Work Phone: 05-17-2023 Functional status Ambulates [facility] Work Phone: Mental Status Date Assessment Result Facility 08-14-2023 Cognitive function Voice/Name [facility] Work Phone: 08-14-2023 Cognitive function Awake;Alert;A ppropriate;Fol lows Commands [facility] Work Phone: 06-10-2023 Cognitive function Voice/Name [facility] Work Phone: 06-03-2023 Cognitive function Appropriate;Cooperativ e [facility] Work Phone: 05-17-2023 Cognitive function Voice/Name [facility] Work Phone: Clinical Notes 06-17-2021 to 07-19-2024 Note Date & Type Note Facility 07-19-2024 Note [facility] Medical Records Department [address] [place] [address] History Physical Exam 07/19/24 1004 MR#: [id number] Acct: [id number] Name: LUIZA GALO Rep #: [id number] : 1940 83 From: Doe Friend DO PCP: Dr. Rosalind Rubalcava MD Status:[facility] Location: [place] [address] History and Physical Date of Admission: 07/19/24 LUIZA GALO, is a 83 F who presents to the office today for follow up. CT abd/pel with contrast 8.. lung scarring; s/p CABG; coronary artery calcification; hepatic steatosis, with abnormal left lobe r/t intrahepatic biliary ductal dilation; s/p cholecystectomy; colonic diverticulosis ERCP 8..23 choledocholithiasis, biliary sphincterotomy, balloon extraction; middle MBD dilated; temporary stent placed in CBD. No specimens. HIDA 8..23 without acute/chronic finding; no bile leak. abd/pelvis CT 7..24 1. Stool within the distal sigmoid colon and rectum which may represent developing fecal impaction. The remainder of the colon is fluid-filled which may represent incipient diarrhea. 2. Common bile duct stent with approximately 6.5 cm of the stent within the duodenum. OV 7.24 pt reports that overall she is feeling unwell. Pt reports symptoms of nausea, diarrhea, abdominal pain, excessive flatulence, HB, and difficulty swallowing. pt reports that she had a bowel blockage in early April and has been feeling unwell since. ROS Const Constitutional: Positive for fatigue, frequent falls, headache(s), weakness and weight change (weight gain and weight loss); No fever(s) ENT ENT: Positive for headache(s) and difficulty swallowing Gastro GI: Positive for abdominal pain, bloating, constipation, diarrhea, heartburn, difficulty swallowing, excessive flatus and nausea/dyspepsia; No belching, change in bowel habits, change in stool character, coffee ground emesis, cramping, feeling full early, incontinent of stools, Vomiting blood/hematemesis, Blood in stool, loose stools, Black,tarry stools, pain with swallowing, vomiting or other Musc Musculoskeletal: Positive for joint pain, back pain, joint swelling, numbness, stiffness, tingling, Arthritis and restless legs Skin Skin: No yellowing of the eye or itchy eyes Neuro Neurology: Positive for weakness, frequent falls, headache(s), numbness, tingling, restless legs and tremor(s) Psych Psychiatric: Positive for anxiety and Positive for depression Endo Endocrine: Positive for fatigue and weight change (weight gain and weight loss) Aller/Imm Allergy/Immunologic: No itchy eyes [place]/Lymp Hematologic/Lymphatic: Positive for easy bruising; No easy bleeding Exam Const General: cooperative and comfortable Nutritional Appearance: average body habitus and well nourished [facility] Head: normal to inspection Ears: hearing grossly normal bilaterally Nose: external nose normal Face and sinus: normal facial exam Mouth: oral mucosae normal Throat: posterior oropharynx normal Eyes General: appearance normal, both eyes and all related structures Neck Neck: normal visual inspection Chest Chest palpation inspection: normal inspection of the chest and normal palpation of entire chest wall Resp Effort Inspection: normal respiratory effort Auscultation: Bilateral: Clear to Auscultation Cardio Palpation: normal PMI Rate: regular rate Rhythm: regular rhythm GI Inspection: normal to inspection Auscultation: normal bowel sounds Percussion: normal to percussion Palpation: no hepatosplenomegaly Skin General: no rashes or lesions noted Neuro General: patient alert Extrem General: normal to inspection Psych Affect: normal affect Assessment and Plan Assessment and Plan (1) Abdominal pain: Status: Acute Plan: 83-year-old was recently seen in the emergency room for worsening chest pain. She underwent cardiac workup with a EKG, echocardiogram and troponins. There were no abnormalities that were seen. She went home and then came back for worsening abdominal pain and was diagnosed with severe constipation. Attempts at decompression were unsuccessful. She eventually had to decompress herself . At this time she denies any chest pain or shortness of breath. She had a CT scan abdomen pelvis that had shown severe constipation with mild colonic dilation all the way to the cecum. There was no sign of volvulus. She did manage to take some milk of magnesia in go to the bathroom. At the end she did see a small amount of blood. She is still having intermittent cramping abdominal pain. She is clearly a very nervous person and I think her nerves make it worse. I suspect that she has ischemic colitis in the setting of bloating cramping and abdominal pain with diarrhea and intermittent loose stools. Recommendations: -Low-dose tramadol for abdominal pain -Amitriptyline or benzodiazepine for anxienty -Metamucil once a d (more content not included)... [facility] 04-02-2024 Note [facility] Medical Records Department [address] [place] [address] Discharge Summary 04/02/24 1211 MR#: [id number] Acct: [id number] Name: LUIZA GALO Rep #: [id number] : 1940 83 From: El Best MD PCP: Dr. Rosalind Rubalcava MD Status:ADM [facility] Location: [place] [address] Providers Date of Admission: 04/01/24 Date of Discharge: 04/02/24 Primary Care Physician: Dr. Rosalind Rubalcava MD Reason For Visit: HYPERTENSION, CHEST PAIN, BRADYCARDIA Diagnosis Discharge Diagnosis (1) Chest pressure: Status: Acute Code(s): R07.89 - Other chest pain (2) Diabetes mellitus: Status: Acute Code(s): E11.9 - Type 2 diabetes mellitus without complications Qualifiers: Diabetes mellitus complication status: with hyperglycemia Diabetes mellitus long term acute care registered nurse insulin use: with alf use Diabetes mellitus type: type 2 Qualified Code(s): E11.65 - Type 2 diabetes mellitus with hyperglycemia; Z79.4 - MCFP (current) use of insulin (3) Congestive heart failure: Status: Acute Code(s): I50.9 - Heart failure, unspecified Qualifiers: Heart failure chronicity: chronic Heart failure type: diastolic Qualified Code(s): I50.32 - Chronic diastolic (congestive) heart failure (4) Hypertension: Status: Chronic Code(s): I10 - Essential (primary) hypertension Qualifiers: Hypertension type: primary hypertension Qualified Code(s): I10 - Essential (primary) hypertension (5) Atrial fibrillation: Status: Acute Code(s): I48.91 - Unspecified atrial fibrillation Qualifiers: Atrial fibrillation type: paroxysmal Qualified Code(s): I48.0 - Paroxysmal atrial fibrillation (6) Morbid obesity due to excess calories: Status: Acute Code(s): E66.01 - Morbid (severe) obesity due to excess calories Plan Patient is an 83-year-old lady who presented with chest pain 1. Chest pain ??? Patient admitted to a monitored bed. As part of her evaluation ordered serial cardiac enzymes as well as EKG. Patient to undergo nuclear stress test to complete her evaluation. Had CTA of the chest performed in the ED. There was no evidence of pulmonary embolism or arterial dissection ??? Patient underwent subsequent evaluation with a nuclear stress test which was negative for stress- induced ischemia 2. Acute hypertensive urgency ??? Patient blood pressure was now within goal Home medications continued in addition to hydralazine as needed to keep systolic blood pressure less than 160 3. Paroxysmal A-fib Patient is on beta-tawana???continue. Patient also on systemic anticoagulation with apixaban continue 4. Dyslipidemia -Patient is on statin therapy, continued at home dose 5. Chronic congestive heart failure with preserved ejection fraction ??? Remains stable and euvolemic patient is on diuretic therapy from home discontinued 6. Psoriasis ??? Patient is on guselkumab 7. Diabetes mellitus type II -. Placed on long acting insulin, Accu-Cheks a.c. and at bedtime and covered with sliding scale insulin 8. Depression with anxiety ??? Patient is on Lexapro as well as Xanax continue 9. Class I obesity with BMI of 34.2 ??? Weight loss advised 10. DVT prophylaxis ??? Patient is on apixaban Time spent in the patient's overall evaluation,decision-making process, review of diagnostic data, adjustment of management, discussion with other providers, nursing and ancillary staff involved in patient's care documentation, 40 minutes. Medications at Discharge Home Medications atorvastatin 40 mg tablet 40 mg PO QDAY cholesterol #30 tabs 03/02/18 alprazolam 0.5 mg tablet 0.5 mg PO 4X/DAY anxiety 11/23/19 montelukast 10 mg tablet 10 mg PO DAILY allergies 12/29/20 BP cuff #1 ea 01/20/22 cholecalciferol (vitamin D3) 125 mcg (5,000 unit) capsule 125 mcg PO DAILY vitamin 01/20/22 acetaminophen 500 mg tablet (Tylenol Extra Strength) 1,000 mg PO Q4H PRN pain 05/19/22 ropinirole 1 mg tablet 2 mg PO BID pain 05/19/22 guselkumab 100 mg/mL subcutaneous syringe (Tremfya) 100 mg subcut .monthly psoriasis 08/14/23 losartan 100 mg tablet 25 mg PO DAILY BP 08/14/23 trazodone 150 mg tablet 150 mg PO QHS sleep 10/24/23 apixaban 5 mg tablet (Eliquis) 5 mg PO BID blood thinner #180 tabs 10/25/23 hydrocodone-acetaminophen 5-325mg 5mg-325mg 1 tab PO 4X/DAY PRN PRN pain 11/20/23 insulin degludec 100 unit/mL subcutaneous solution (Tresiba U-100 Insulin) 25 unit subcut DAILY diabetes 04/01/24 metoprolol succinate 25 mg tablet,extended release 24 hr 12.5 mg PO DAILY blood pressure 04/01/24 aspirin 81 mg tablet,delayed release 81 mg PO BREAKFAST #0 tabs 04/02/24 hydralazine 25 mg tablet 25 mg PO BID #120 tabs 04/02/24 Physical Exam Narrative GENERAL: cooperative HEENT: Atraumatic; normocephalic EYES; Anicteric, Normal Conjunctiva NECK; supple, normal thyroid, RESPIRATORY: Diminished to auscultation CARDIOVASCULAR: Regula (more content not included)... [facility] 11-20-2023 Discharge summary Note Date/Time November 20, 2023 8:38pm [facility] Medical Records Department [address] [place] [address] Emergency Department Summary 11/20/23 MR#: [id number] Acct: [id number] Name: LUIZA GALO Rep #:[id number] : 1940 83 From: Lesley Lpoez MD PCP: Dr. Rosalind Rubalcava MD Status:DEP ER Location: ED HPI History of Present Illness Chief Complaint: Lower Extremity Injury Informant: patient Narrative Narrative: Patient presents secondary to fall with hematoma on leg. She fell recently striking her left leg. She has a bruised area with a hematoma as well. She describes significant pain to the area. She also noted some pain in her low back today. She is currently on Eliquis secondary to a history of paroxysmal A-fib and pulmonary embolism. She is on hydrocodone for pain without significant improvement. [facility] Medical History Anxiety and depression Ascending cholangitis Atherosclerosis of coronary artery of [place] heart without angina pectoris Bradycardia Diabetes mellitus Dysphagia Essential hypertension Former tobacco use GERD (gastroesophageal reflux disease) History of left heart catheterization (LHC) (~01/20/21) Hyperlipidemia Immunosuppression due to drug therapy MCFP (current) use of anticoagulants Morbid obesity MARIVEL (obstructive sleep apnea) Osteoarthritis Paroxysmal atrial fibrillation Pulmonary embolism Stroke Home Medications atorvastatin 40 mg tablet 40 mg PO QDAY cholesterol #30 tabs 03/02/18 [Rx Last Taken 05/17/23] alprazolam 0.5 mg tablet 0.5 mg PO 4X/DAY anxiety 11/23/19 [History Last Taken 05/12/23] montelukast 10 mg tablet 10 mg PO DAILY allergies 12/29/20 [History Last Taken Unknown] nitroglycerin 0.4 mg sublingual tablet (Nitrostat) 0.4 mg sublingual Q5-15M PRN chest pain #25 tabs 10/21/21 [Rx Last Taken Unknown] BP cuff #1 ea 01/20/22 [Rx Last Taken Unknown] cholecalciferol (vitamin D3) 125 mcg (5,000 unit) capsule 125 mcg PO DAILY vitamin 01/20/22 [History Last Taken Unknown] escitalopram oxalate 10 mg tablet (Lexapro) 10 mg PO DAILY depression 01/20/22 [History Last Taken Unknown] acetaminophen 500 mg tablet (Tylenol Extra Strength) 1,000 mg PO Q4H PRN pain 05/19/22 [History Last Taken Unknown] ropinirole 1 mg tablet 2 mg PO BID pain 05/19/22 [History Last Taken Unknown] loperamide 2 mg capsule (Anti-Diarrheal (loperamide)) 4 mg PO Q2H PRN diarrhea 05/16/23 [History Last Taken Unknown] guselkumab 100 mg/mL subcutaneous syringe (Tremfya) 100 mg subcut .monthly 08/14/23 [History Last Taken Unknown] insulin degludec 100 unit/mL (3 mL) subcutaneous pen (Tresiba FlexTouch U-100 insulin) 30 unit subcut DAILY 08/14/23 [History Last Taken 08/13/23] losartan 100 mg tablet 25 mg PO DAILY BP 08/14/23 [History Last Taken Unknown] vibegron 75 mg tablet (Gemtesa) 75 mg PO DAILY 08/14/23 [History Last Taken 08/13/23] ondansetron 8 mg disintegrating tablet 8 mg PO Q8H PRN nausea and vomiting #20 tabs 08/15/23 [Rx Last Taken Unknown] furosemide 40 mg tablet (Lasix) 40 mg PO DAILY #3 tabs 10/24/23 [Rx Last Taken Unknown] metoprolol succinate 50 mg tablet,extended release 24 hr 50 mg PO DAILY 10/24/23[History Last Taken Unknown] trazodone 150 mg tablet 150 mg PO QHS sleep 10/24/23 [History Last Taken Unknown] apixaban 5 mg tablet (Eliquis) 5 mg PO BID blood thinner #180 tabs 10/25/23 [Rx Last Taken Unknown] pantoprazole 40 mg tablet,delayed release mg PO 11/10/23 [History Last Taken Unknown] tizanidine 4 mg capsule 4 mg PO Q8H PRN 11/10/23 [History Last Taken Unknown] hydrocodone-acetaminophen 5-325mg 5mg-325mg tab 11/20/23 [History Last Taken Unknown] Allergy/AdvReac Type Severity Reaction Status Date / Time insulin isophane (NPH) Allergy Severe heart burn Verified 11/20/23 20:13 Anesthetics - Amide Type - Allergy NEEDS Verified 11/20/23 20:13 Select A FOLLOW-UP Anesthetics - Tyra Type- Allergy NEEDS Verified 11/20/23 20:13 Parabens FOLLOW-UP latex Allergy Unknown Verified 11/20/23 20:13 promethazine [From Phenergan] Allergy PT UNSURE Verified 11/20/23 20:13 OF REACTION sitagliptin phosphate Allergy Unknown Verified 11/20/23 20:13 [From Jagdishia] insulin degludec AdvReac Mild Nausea Verified 11/20/23 20:13 [From Xultophy 100/3.6] liraglutide AdvReac Mild Nausea Verified 11/20/23 20:13 [From Xultophy 100/3.6] atorvastatin [From Lipitor] AdvReac Unknown Unknown Verified 11/20/23 20:13 codeine AdvReac Unknown Unknown Verified 11/20/23 20:13 tizanidine AdvReac Unknown Unknown Verified 11/20/23 20:13 Family History Father CAD (coronary artery disease) Mother CAD (coronary artery disease) Brother CAD (coronary artery disease) Surgical History H/O coronary artery bypass surgery (~06/01/17) History of bilateral cataract extraction History of cholecystectomy History of knee surgery History of total hysterectomy Social History household members: none housing: assisted living facility Smoking Status: Former smoker how long ago did patient quit smokin years ago second hand exposure: Yes alcohol intake: never substance use type: does not use caffeine: No ROS ROS ED Constitutional Constitutional ED: Denies chills or fever(s) Eyes Eyes: Denies discharge from eye(s) ENT ENT ED: Denies discharge from eye(s), rhinorrhea or sore throat Cardiovascular Cardiovascular: Denies chest pain or palpitations Respiratory/Chest Respiratory/Chest: Denies cough or dyspnea Gastrointestinal Gastrointestinal: Denies abdominal pain, nausea or vomiting Musculoskeletal Musculoskeletal: Reports extremity pain; Denies back pain Integumentary Reports other Details: Hematoma and ecchymosis left leg ; Denies Abrasions or rash Neurologic Neurologic: Denies headache(s) or weakness Psychiatric Psychiatric: Denies anxiety or depression Allergic/Immunologic Allergic/Immunologic ED: Denies lip swelling or urticaria EXAM Physical Exam Const Vital Signs: 11/20/23 20:14 11/20/23 20:18 11/20/23 20:30 Temperature 96.0 F L 96.0 F L Temperature Source Temporal Temporal Pulse Rate 65 65 61 Respiratory Rate 18 18 16 Blood Pressure 198/120 H 198/120 H 221/100 H Blood Pressure Mean 146 146 140 Pulse Ox 95 95 98 Oxygen Delivery Method Room Air Room Air Room Air 11/20/23 21:22 11/20/23 21:35 11/20/23 21:45 Temperature Temperature Source Pulse Rate 63 61 60 Respiratory Rate 17 15 16 Blood Pressure 243/72 H 221/65 H 209/67 H Blood Pressure Mean 129 117 114 Pulse Ox 95 96 96 Oxygen Delivery Method Room Air Room Air 11/20/23 22:10 11/20/23 22:57 11/20/23 23:15 Temperature Temperature Source Pulse Rate 68 75 77 Respiratory Rate 16 16 19 H Blood Pressure 201/79 H 173/108 H 155/46 H Blood Pressure Mean 119 129 82 Pulse Ox 95 93 95 Oxygen Delivery Method Room Air Room Air Room Air 11/20/23 23:22 11/21/23 00:16 Temperature 97.1 F L Temperature Source Pulse Rate 73 79 Respiratory Rate 18 15 Blood Pressure 161/54 H 168/75 H Blood Pressure Mean 89 106 Pulse Ox 94 95 Oxygen Delivery Method Room Air Positive well nourished and well developed General Appearance ED: well developed HEENT Reports moist mucous membranes Eyes EOMs intact bilaterally Chest Wall inspection of chest normal and palpation of chest normal Resp normal respiratory effort and clear to auscultation bilaterally Cardio regular rate and regular rhythm GI non-tender Palpation: soft Extremity Extremity Narrative: Ecchymosis to the left mid sam with small hematoma over the area. Good distal pulses. No tenderness of the knee with well-healed old surgical incision. Neuro oriented x3 Neuro Narrative: No focal neurologic deficit. MDM MDM MDM Narrative Medical decision making narrative: Patient given a dose of fentanyl for pain. Labwork obtained to evaluate for leukocytosis, anemia, and electrolyte derangement. X-rays of the lumbar spine and the left tib-fib obtained to evaluate for potential fracture. History & Record Review Discussion w/independent historian: Patient and Family Additional record(s) reviewed:: Prior labs Lab Data Attestation: I reviewed the patient's lab results. Labs: Laboratory Results - last 24 hr 11/20/23 20:44 WBC 6.9 RBC 4.07 L Hgb 11.4 L Hct 36.2 L MCV 88.9 MCH 28.0 MCHC 31.5 L RDW Std Deviation 45.7 H RDW Coeff of Sky 14.2 Plt Count 222 MPV 10.6 Immature Gran % (Auto) 0.300 Neut % (Auto) 53.4 Lymph % (Auto) 38.0 [place] % (Auto) 5.8 Eos % (Auto) 1.9 Baso % (Auto) 0.6 Absolute Neuts (auto) 3.7 Absolute Lymphs (auto) 2.64 Nucleated RBC % 0 PT 15.6 H INR 1.2 APTT 31.8 Sodium 141 Potassium 4.2 Chloride 109 H Carbon Dioxide 29.0 Anion Gap 3 L BUN 17 Creatinine 1.06 H Estim Creat Clear Calc 40.41 Est GFR (MDRD) Af Amer 64 Est GFR (MDRD) Non-Af 53 L BUN/Creatinine Ratio 16.0 Glucose 169 H Calcium 9.1 Radiography Diagnostic Testing: Clinical Impression(s) from Imaging Studies Tibia/Fibula X-Ray 11/20/23 20:33 IMPRESSION: No acute findings in the left tibia and fibula or surrounding soft tissues. Electronically Signed: Jose Queen MD at 21:44 EST , Lumbar Spine X-Ray 11/20/23 21:10 IMPRESSION: Degenerative changes of the spine, as detailed above. L4 compression deformity. This is new since the prior CT. MRI can better evaluate. Electronically Signed: Jose Queen MD at 21:46 EST , Treatment and Re-Evaluation :: Lumbar spine x-rays per my interpretation reveal chronic changes with calcified aorta. Radiology does feel there is evidence of a compression fracture at L4 which is new when compared to prior study from May 2023. Tib-fib x-ray per my interpretation feels no evidence of bony fracture. Radiology interpretation reviewed and agrees. CBC was normal white count at 6.9 with a hemoglobin 11.4. This is consistent with her baseline. INR is 1.2. Chemistry studies significant only for glucose of 169. Patient was given a small dose of fentanyl here for pain along with a dose of labetalol for blood pressure. Blood pressure did remain elevated and she was also given a dose of hydralazine and another small dose of fentanyl. At this time patient states her pain overall is improved. She is, started to complain of some back pain from the bed. She would prefer to go home. She has hydrocodone at home that she will continue. Gautam wrap was applied to the left leg and she was advised that the hematoma would slowly reabsorb. Lidoderm patches placed on her back to help with pain. I did give her information for Dr. Sinclair for follow-up if needed. Discharge Plan Triage Chief Complaint: Lower Extremity Injury ED Provider: Lesley Lopez Dx/Rx/DC Orders Clinical Impression: Closed compression fracture of L4 vertebra, Hematoma of leg, Fall, Hypertension Instructions: ED Fracture, Vertebral Compression, ED Hematoma Prescriptions: No Action alprazolam 0.5 mg tablet 0.5 mg PO 4X/DAY montelukast 10 mg tablet 10 mg PO DAILY nitroglycerin [Nitrostat] 0.4 mg tablet, sublingual 0.4 mg sublingual Q5-15M PRN (Reason: chest pain) Qty: 25 3RF Rx Instructions: do not exceed 3 doses per episode cholecalciferol (vitamin D3) 125 mcg (5,000 unit) capsule 125 mcg PO DAILY escitalopram oxalate [Lexapro] 10 mg tablet 10 mg PO DAILY (DME) BP cuff See Rx Instructions .Route .MEDSUPPLY Qty: 1 0RF Hold Instructions: MD Ordered Rx Instructions: As directed ropinirole 1 mg tablet 2 mg PO BID acetaminophen [Tylenol Extra Strength] 500 mg tablet 1,000 mg PO Q4H PRN (Reason: pain) trazodone 150 mg tablet 150 mg PO QHS metoprolol succinate 50 mg tablet extended release 24 hr 50 mg PO DAILY Eliquis 5 mg tablet 5 mg PO BID Qty: 180 4RF pantoprazole 40 mg tablet,delayed release (DR/EC) PO Patient Comments: TAKE 1 TABLET BY MOUTH EVERY DAY tizanidine 4 mg capsule 4 mg PO Q8H PRN loperamide [Anti-Diarrheal (loperamide)] 2 mg capsule 4 mg PO Q2H PRN (Reason: diarrhea) Rx Instructions: after first loose stool, 1 tablet after each subsequent loose stool but no more than 4 tablets in 24 hours insulin degludec [Tresiba FlexTouch U-100] 100 unit/mL (3 mL) insulin pen 30 unit subcut DAILY Gemtesa 75 mg tablet 75 mg PO DAILY losartan 100 mg Tablet 25 mg PO DAILY Tremfya 100 mg/mL syringe 100 mg subcut .monthly ondansetron 8 mg tablet,disintegrating 8 mg PO Q8H PRN (Reason: nausea and vomiting) Qty: 20 0RF hydrocodone-acetaminophen 5-325 mg tablet atorvastatin 40 mg tablet 40 mg PO QDAY Qty: 30 6RF furosemide [Lasix] 40 mg tablet 40 mg PO DAILY Qty: 3 0RF Primary Care Provider: Rosalind Rubalcava Referrals: Last Sinclair DO [Med Staff - Active Staff] - As Needed Rosalind Rubalcava MD [Primary Care Provider] - 1 Week Disposition Disposition: Home, Self Care Discharge Date/Time: 11/21/23 00:22 What to do if you have Problems For any increased pain, shortness of breath, bleeding, nausea or vomiting, chestpain, or any unexpected problems, contact your Primary Care Provider. Call [facility] ([phone]) or report to the closest Emergency Room. Call 911 if necessary. 11/21/23 0040 <Electronically signed by Lesley Lopez MD> Cosigner Signature (if applicable): CC: Dr. Rosalind Rubalcava MD ~ Signed [facility] Work Phone: 1(847) 957-942811-13-2023 Progress note Author Cirilo Fine [facility] August 15, 2023 12:13pm Note Date/Time August 15, 2023 8:29am [facility] Medical Records Department [address] [place] [id number] Progress Note - Hospitalist 08/15/23 0825 MR#: [id number] Acct: [id number] Name: LUIZA GALO Rep #:[id number] : 1940 83 From: Cirilo Fine DO PCP: Dr. Rosalind Rubalcava MD Status:ADM BJ Location: [place] [id number] Reason for Visit Reason for Visit: Diagnoses Noninfective gastroenteritis and colitis, unspecified (08/14/23) Subjective Subjective Feels much better. Has been having abdominal bloating with nausea and dry heavesfor years. Tolerates oats and potatoes. Never tried to alternate her diet. Objective Data Objective Data Vital Signs: Vital Signs Temp Pulse Resp BP Pulse Ox O2 Del Method O2 Flow Rate 36.5 C L 55 L 16 141/48 H 96 Room Air 2 08/15/23 07:44 08/15/23 07:44 08/15/23 07:44 08/15/23 07:44 08/15/23 08:09 08/15/23 08:09 08/15/23 05:00 Oxygen Flow Rate (L/min) 2 Oxygen Delivery Method Room Air Weight: 86.183 kg Body Mass Index (BMI) 34.9 Intake & Output: Intake and Output for Last 24 Hours 08/13/23 08/14/23 08/15/23 23:59 23:59 23:59 Intake Total 2400 / 2600 450 / 450 Balance 2400 / 2600 450 / 450 Lab / Micro Data 08/15/23 04:56 08/15/23 04:56 Labs: Laboratory Results - last 24 hr 08/14/23 12:05: WBC 12.5 H, RBC 4.77, Hgb 13.9, Hct 42.8, MCV 89.7, MCH 29.1, MCHC 32.5, RDW Std Deviation 41.1, RDW Coeff of Sky 12.5, Plt Count 294, MPV 10.0, Immature Gran % (Auto) 0.600, Neut % (Auto) 88.1 H, Lymph % (Auto) 7.1 L, [place] % (Auto) 3.7, Eos % (Auto) 0.2, Baso % (Auto) 0.3, Absolute Neuts (auto) 11.0 H, Absolute Lymphs (auto) 0.89, Nucleated RBC % 0, PT 16.3 H, INR 1.3, APTT28.7, Sodium 138, Potassium 3.5, Chloride 105, Carbon Dioxide 27.0, Anion Gap 6,BUN 11, Creatinine 0.98, Est GFR (MDRD) Af Amer 70, Est GFR (MDRD) Non-Af 58 L, BUN/Creatinine Ratio 11.2, Glucose 209 H, Lactic Acid 1.8, Calcium 9.2, Total Bilirubin 0.50, Direct Bilirubin 0.07, AST 22, ALT 14, Alkaline Phosphatase 98, Total Protein 7.6, Albumin 2.8 L, Globulin 4.8 H, Lipase 17 08/14/23 12:41: Urine Color Yellow, Urine Clarity Clear, Urine pH 6.0, Ur Specific [place] 1.020, Urine Protein 30 H, Urine Glucose (UA) 100 H, Urine Ketones 5 H, Urine Occult Blood 25 H, Urine Nitrite Negative, Urine Bilirubin Negative, Urine Urobilinogen Normal, Ur Leukocyte Esterase Negative, Urine RBC 0SEEN, Urine WBC 0 SEEN, Ur Squamous Epith Cells 0 SEEN, Urine Bacteria 0 SEEN, Urine Mucus 0 SEEN 08/14/23 18:09: POC Glucose 180 H 08/14/23 21:41: POC Glucose 156 H 08/15/23 04:56: WBC 10.1, RBC 3.61 L, Hgb 10.5 L, Hct 33.7 L, MCV 93.4, MCH 29.1, MCHC 31.2 L, RDW Std Deviation 43.9, RDW Coeff of Sky 12.9, Plt Count 241,MPV 9.6, Immature Gran % (Auto) 0.200, Neut % (Auto) 69.3, Lymph % (Auto) 24.2, [place] % (Auto) 4.8, Eos % (Auto) 1.2, Baso % (Auto) 0.3, Absolute Neuts (auto) 7.0, Absolute Lymphs (auto) 2.44, Nucleated RBC % 0, Sodium 144, Potassium 3.5, Chloride 113 H, Carbon Dioxide 29.0, Anion Gap 2 L, BUN 11, Creatinine 0.86, Estim Creat Clear Calc 40.58, Est GFR (MDRD) Af Amer 82, Est GFR (MDRD) Non-Af 68, BUN/Creatinine Ratio 12.9, Glucose 91, Calcium 8.5 Micro: Microbiology 08/14/23 12:20 Nasal Secretion SARS-CoV-2 & FLU Antigen (Rapid) - Final Radiography Diagnostic Testing: Radiology Impression Chest X-Ray 08/14/23 11:59 IMPRESSION: Degenerative changes, as described above. No demonstrated acute cardiopulmonary process. Electronically Signed: Bernardino Bejarano MD at 15:59 EST Reading Location ID and State: [facility] / [place] , Service support , Physical Exam Const alert and no apparent distress Assessment & Plan Assessment/Plan (1) Gastroenteritis: PLAN: Chronic. intermittent. Patient has never tried dietary modifications including gluten-free, lactose-free, etc. With her bloating, as stated that would be more concerned about this being possibly a gluten intolerance. I recommended trying a gluten-free diet for 1 month as a trial, if she has ongoingsymptoms, then this would likely not be gluten intolerance. PLAN: Plan HTN/HLD/A-fib/VTE ? Blood pressures are stable ? Continue with her home medications ? Continue with her home Lipitor ? We will monitor and make adjustments as necessary ? Continue with Eliquis, she also has a history of DVT/PE DM2 ? We will decrease her insulin dosing by half ? Accu-Cheks ACHS ? Sliding scale insulin ? We will monitor and make adjustments as necessary Anxiety/depression/chronic pain ? Stable ? Continue with her home medications DVT: not indicated as already on apixaban. 08/15/23 1213 <Electronically signed by Cirilo Fine DO> Cosigner Signature (if applicable): CC: ~ Signed [facility] Work Phone: 1(232) 308-247211-12-2023 History and physical note Author Judson Hernandez [facility] August 14, 2023 4:28pm Note Date/Time August 14, 2023 3:02pm [facility] Medical Records Department [address] [place] [address] H&P Exam - Hospitalist 08/14/23 1458 MR#: [id number] Acct: [id number] Name: LUIZA GALO Rep #:[id number] : 1940 83 From: Judson rucker MD PCP: Dr. Rosalind Rubalcava MD Status:ADM BJ Location: [facility] MC230-9 HPI - General General Date of Admission: 08/14/23 HPI Narrative LUIZA GALO, is a 83 F who presents to the hospital from the assisted living with nausea, vomiting, and diarrhea. Is unclear if the diarrhea is related as she has chronic constipation issues secondary to narcotic use and has been usinglaxatives to assist. Symptoms started over the last day or 2 where she is just not feeling well, she does complain of diffuse abdominal pain though physical exam does not elicit any abdominal pain. White count is little bit elevated andfaye was recently treated for UTI with Cipro, UA is unremarkable from an infectious standpoint. She does have a history of C. difficile so if diarrhea continues may need to test. She was given fluids in the ED, renal function stable. [facility] Medical History Anxiety and depression Atherosclerosis of coronary artery of [place] heart without angina pectoris Bradycardia Diabetes mellitus Dysphagia Essential hypertension Former tobacco use GERD (gastroesophageal reflux disease) History of left heart catheterization (LHC) (~01/20/21) Hyperlipidemia Immunosuppression due to drug therapy 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 Morbid obesity MARIVEL (obstructive sleep apnea) Osteoarthritis Paroxysmal atrial fibrillation Pulmonary embolism Stroke Home Medications atorvastatin 40 mg tablet 40 mg PO QDAY cholesterol #30 tabs 03/02/18 [Rx Last Taken 08/13/23] alprazolam 0.5 mg tablet 0.5 mg PO 4X/DAY anxiety 11/23/19 [History Last Taken 08/13/23] montelukast 10 mg tablet 10 mg PO DAILY allergies 12/29/20 [History Last Taken 08/13/23] nitroglycerin 0.4 mg sublingual tablet (Nitrostat) 0.4 mg sublingual Q5-15M PRN chest pain #25 tabs 10/21/21 [Rx Last Taken Unknown] BP cuff #1 ea 01/20/22 [Rx Last Taken Unknown] cholecalciferol (vitamin D3) 125 mcg (5,000 unit) capsule 125 mcg PO DAILY vitamin 01/20/22 [History Last Taken 08/13/23] escitalopram oxalate 10 mg tablet (Lexapro) 10 mg PO DAILY depression 01/20/22 [History Last Taken 08/13/23] topiramate 100 mg tablet 50 mg PO BID nerve pain 01/20/22 [History Last Taken 08/13/23] acetaminophen 500 mg tablet (Tylenol Extra Strength) 1,000 mg PO Q4H PRN pain 05/19/22 [History Last Taken Unknown] hydrocodone-acetaminophen 5-325mg 5mg-325mg ([place]) 1 tab PO Q8H PRN Pain 1-10 Or Fever 05/19/22 [History Last Taken 08/13/23] ropinirole 1 mg tablet 1 mg PO TID pain 05/19/22 [History Last Taken 08/13/23] trazodone 150 mg tablet 150 mg PO QHS sleep 05/19/22 [History Last Taken 08/13/23] apixaban 5 mg tablet (Eliquis) 5 mg PO Q12H blood thinner 04/20/23 [History Last Taken 08/13/23] loperamide 2 mg capsule (Anti-Diarrheal (loperamide)) 4 mg PO Q2H PRN diarrhea 05/16/23 [History Last Taken Unknown] metoprolol succinate 50 mg tablet,extended release 24 hr 50 mg PO DAILY 30 days #30 tabs 06/07/23 [Rx Last Taken 08/13/23] ciprofloxacin HCl 500 mg tablet 500 mg PO Q12H UTI 08/14/23 [History Last Taken 08/13/23] fesoterodine 4 mg tablet,extended release 24 hr 4 mg PO BID 08/14/23 [History Last Taken 08/13/23] insulin degludec 100 unit/mL (3 mL) subcutaneous pen (Tresiba FlexTouch U-100 insulin) 30 unit subcut DAILY 08/14/23 [History Last Taken 08/13/23] losartan 100 mg tablet 25 mg PO DAILY BP 08/14/23 [History Last Taken 08/13/23] vibegron 75 mg tablet (Gemtesa) 75 mg PO DAILY 08/14/23 [History Last Taken 08/13/23] Allergy/AdvReac Type Severity Reaction Status Date / Time insulin isophane (NPH) Allergy Severe heart burn Verified 08/14/23 12:00 Anesthetics - Amide Type - Allergy NEEDS Verified 08/14/23 12:00 Select A FOLLOW-UP Anesthetics - Tyra Type- Allergy NEEDS Verified 08/14/23 12:00 Parabens FOLLOW-UP latex Allergy Unknown Verified 08/14/23 12:00 promethazine [From Phenergan] Allergy PT UNSURE Verified 08/14/23 12:00 OF REACTION sitagliptin phosphate Allergy Unknown Verified 08/14/23 12:00 [From Januvia] insulin degludec AdvReac Mild Nausea Verified 08/14/23 12:00 [From Xultophy 100/3.6] liraglutide AdvReac Mild Nausea Verified 08/14/23 12:00 [From Xultophy 100/3.6] atorvastatin [From Lipitor] AdvReac Unknown Unknown Verified 08/14/23 12:00 codeine AdvReac Unknown Unknown Verified 08/14/23 12:00 tizanidine AdvReac Unknown Unknown Verified 08/14/23 12:00 Family History Father CAD (coronary artery disease) Mother CAD (coronary artery disease) Brother CAD (coronary artery disease) Surgical History H/O coronary artery bypass surgery (~06/01/17) History of bilateral cataract extraction History of cholecystectomy History of knee surgery History of total hysterectomy Social History household members: none housing: assisted living facility Smoking Status: Former smoker how long ago did patient quit smokin years ago second hand exposure: Yes alcohol intake: never substance use type: does not use caffeine: No ROS Constitutional Constitutional: Reports fatigue and weakness; Denies chills, fever(s) or malaise Eyes Eyes: Denies blurry vision ENT HEENT: Denies headache(s) or nasal discharge Cardiovascular Cardiovascular: Denies chest pain, dyspnea on exertion or syncope Respiratory/Chest Respiratory/Chest: Denies cough, shortness of breath at rest or shortness of breath with exertion Gastrointestinal Gastrointestinal: Reports abdominal pain, diarrhea, nausea and vomiting; Denies constipation Genitourinary Genitourinary: Denies dysuria Neurologic Neurologic: Denies focal weakness, numbness or tremor(s) Psychiatric Psychiatric: Denies anxiety or depression Vital Signs Vital Signs Vital Signs: 08/14/23 11:52 08/14/23 12:14 08/14/23 13:37 Temperature 101.5 F H 100.2 F H Temperature Source Oral Oral Pulse Rate 132 H 104 H Respiratory Rate 34 H 24 H Respiratory Effort Normal Non-Labored Blood Pressure 179/85 H 142/62 H Blood Pressure Mean 116 88 Pulse Ox 89 96 Oxygen Delivery Method Room Air Nasal Cannula Oxygen Flow Rate (L/min) 2 Physical Exam Narrative General: Alert, Oriented x3, Cooperative, No apparent distress HEENT: Atraumatic, PERRLA, EOMI, Normocephalic Oral: Moist Mucosa Neck: Supple, No JVD Lungs: Diminished, Normal air movement, No rhonchi, No wheeze, No rales, crackles Cardiovascular: Regular rate, Regular Rhythm, Normal S1, Normal S2, No murmurs Abdomen: Soft, Non Tender, Non-Distended, No Hepato-splenomegaly Extremities: No edema, Capillary Refill Less than 3 Seconds Skin: No rashes, No breakdown Musculoskeletal: No Tenderness to Palpation of Joints or Extremities Neurological: Moves all extremities, Sensory exam intact to light touch and pain Psych/Mental Status: Normal Affect, Appropriate Results Lab / Micro Data 08/14/23 12:05 08/14/23 12:05 Labs: Laboratory Results - last 24 hr 08/14/23 12:05: WBC 12.5 H, RBC 4.77, Hgb 13.9, Hct 42.8, MCV 89.7, MCH 29.1, MCHC 32.5, RDW Std Deviation 41.1, RDW Coeff of Sky 12.5, Plt Count 294, MPV 10.0, Immature Gran % (Auto) 0.600, Neut % (Auto) 88.1 H, Lymph % (Auto) 7.1 L, [place] % (Auto) 3.7, Eos % (Auto) 0.2, Baso % (Auto) 0.3, Absolute Neuts (auto) 11.0 H, Absolute Lymphs (auto) 0.89, Nucleated RBC % 0, PT 16.3 H, INR 1.3, APTT28.7, Sodium 138, Potassium 3.5, Chloride 105, Carbon Dioxide 27.0, Anion Gap 6,BUN 11, Creatinine 0.98, Est GFR (MDRD) Af Amer 70, Est GFR (MDRD) Non-Af 58 L, BUN/Creatinine Ratio 11.2, Glucose 209 H, Lactic Acid 1.8, Calcium 9.2, Total Bilirubin 0.50, Direct Bilirubin 0.07, AST 22, ALT 14, Alkaline Phosphatase 98, Total Protein 7.6, Albumin 2.8 L, Globulin 4.8 H, Lipase 17 08/14/23 12:41: Urine Color Yellow, Urine Clarity Clear, Urine pH 6.0, Ur Specific [place] 1.020, Urine Protein 30 H, Urine Glucose (UA) 100 H, Urine Ketones 5 H, Urine Occult Blood 25 H, Urine Nitrite Negative, Urine Bilirubin Negative, Urine Urobilinogen Normal, Ur Leukocyte Esterase Negative, Urine RBC 0SEEN, Urine WBC 0 SEEN, Ur Squamous Epith Cells 0 SEEN, Urine Bacteria 0 SEEN, Urine Mucus 0 SEEN Micro: Microbiology 08/14/23 12:20 Nasal Secretion SARS-CoV-2 & FLU Antigen (Rapid) - Final Assessment & Plan Assessment/Plan (1) Gastroenteritis: PLAN: Plan 1. Gastroenteritis with hypoxia ? We will obtain enteric pathogen panel ? Continue with gentle IV fluids we will monitor her crackles and her oxygen requirements ? PT/OT with discharge planning with case management SNF versus back to assistedliving ? UA does not show an infection and chest x-ray is unremarkable 2. HTN/HLD/A-fib ? Blood pressures are stable ? Continue with her home medications ? Continue with her home Lipitor ? We will monitor and make adjustments as necessary ? Continue with Eliquis, she also has a history of DVT/PE 3. DM2 ? We will decrease her insulin dosing by half ? Accu-Cheks ACHS ? Sliding scale insulin ? We will monitor and make adjustments as necessary 4. Anxiety/depression/chronic pain ? Stable ? Continue with her home medications DVT: Lakeisha 75 minutes was spent on direct patient care, including documentation as well as chart review and collaboration with colleagues Charges/Coding Visit Charges Inpatient E&M: 29721 Init Hosp L3 08/14/23 1628 <Electronically signed by Judson Hernandez MD> Cosigner Signature (if applicable): CC: Dr. Judson Hernandez MD; Dr. Rosalind Rubalcava MD~ Signed [facility] Work Phone: 1(190) 887-478711-12-2023 Discharge summary Author Enrrique Eric [facility] August 14, 2023 4:21pm Note Date/Time August 14, 2023 12:51pm [facility] Health System Medical Records Department [address] [place] [address] Emergency Department Summary 08/14/23 MR#: [id number] Acct: [id number] Name: LUIZA GALO Rep #:[id number] : 1940 83 From: Enrrique Ny PCP: Dr. Rosalind Rubalcava MD Status:ADM BJ Location: [place] [address] HPI History of Present Illness Chief Complaint: Fever Informant: patient, family and EMS Narrative Narrative: 83-year-old female from assisted living presenting to the emergency room with vomiting diarrhea and fever. Patient states she was not feeling well yesterday but cannot clarify. Reportedly had vomiting this morning. She states she has had a lot of diarrhea but does not know about how often she is going. EMS notesa fever. She has history of coronary artery disease, atrial fibrillation (on Coumadin), history of pulmonary embolism. Patient denies any urinary symptoms. She states that her whole body hurts. Family informed nursing that she is supposed to go to pain management because of her chronic pain. Patient has had prescriptions for [place] in the past and vitals between constipation and loose stools. Most recently she has had a couple laxatives. 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 Morbid obesity MARIVEL (obstructive sleep apnea) Osteoarthritis Paroxysmal atrial fibrillation Pulmonary embolism Stroke Home Medications atorvastatin 40 mg tablet 40 mg PO QDAY cholesterol #30 tabs 03/02/18 [Rx Last Taken 08/13/23] alprazolam 0.5 mg tablet 0.5 mg PO 4X/DAY anxiety 11/23/19 [History Last Taken 08/13/23] montelukast 10 mg tablet 10 mg PO DAILY allergies 12/29/20 [History Last Taken 08/13/23] nitroglycerin 0.4 mg sublingual tablet (Nitrostat) 0.4 mg sublingual Q5-15M PRN chest pain #25 tabs 10/21/21 [Rx Last Taken Unknown] BP cuff #1 ea 01/20/22 [Rx Last Taken Unknown] cholecalciferol (vitamin D3) 125 mcg (5,000 unit) capsule 125 mcg PO DAILY vitamin 01/20/22 [History Last Taken 08/13/23] escitalopram oxalate 10 mg tablet (Lexapro) 10 mg PO DAILY depression 01/20/22 [History Last Taken 08/13/23] topiramate 100 mg tablet 50 mg PO BID nerve pain 01/20/22 [History Last Taken 08/13/23] acetaminophen 500 mg tablet (Tylenol Extra Strength) 1,000 mg PO Q4H PRN pain 05/19/22 [History Last Taken Unknown] hydrocodone-acetaminophen 5-325mg 5mg-325mg ([place]) 1 tab PO Q8H PRN Pain 1-10 Or Fever 05/19/22 [History Last Taken 08/13/23] ropinirole 1 mg tablet 1 mg PO TID pain 05/19/22 [History Last Taken 08/13/23] trazodone 150 mg tablet 150 mg PO QHS sleep 05/19/22 [History Last Taken 08/13/23] apixaban 5 mg tablet (Eliquis) 5 mg PO Q12H blood thinner 04/20/23 [History Last Taken 08/13/23] loperamide 2 mg capsule (Anti-Diarrheal (loperamide)) 4 mg PO Q2H PRN diarrhea 05/16/23 [History Last Taken Unknown] metoprolol succinate 50 mg tablet,extended release 24 hr 50 mg PO DAILY 30 days #30 tabs 06/07/23 [Rx Last Taken 08/13/23] ciprofloxacin HCl 500 mg tablet 500 mg PO Q12H UTI 08/14/23 [History Last Taken 08/13/23] fesoterodine 4 mg tablet,extended release 24 hr 4 mg PO BID 08/14/23 [History Last Taken 08/13/23] insulin degludec 100 unit/mL (3 mL) subcutaneous pen (Tresiba FlexTouch U-100 insulin) 30 unit subcut DAILY 08/14/23 [History Last Taken 08/13/23] losartan 100 mg tablet 25 mg PO DAILY BP 08/14/23 [History Last Taken 08/13/23] vibegron 75 mg tablet (Gemtesa) 75 mg PO DAILY 08/14/23 [History Last Taken 08/13/23] Allergy/AdvReac Type Severity Reaction Status Date / Time insulin isophane (NPH) Allergy Severe heart burn Verified 08/14/23 12:00 Anesthetics - Amide Type - Allergy NEEDS Verified 08/14/23 12:00 Select A FOLLOW-UP Anesthetics - Tyra Type- Allergy NEEDS Verified 08/14/23 12:00 Parabens FOLLOW-UP latex Allergy Unknown Verified 08/14/23 12:00 promethazine [From Phenergan] Allergy PT UNSURE Verified 08/14/23 12:00 OF REACTION sitagliptin phosphate Allergy Unknown Verified 08/14/23 12:00 [From Januvia] insulin degludec AdvReac Mild Nausea Verified 08/14/23 12:00 [From Xultophy 100/3.6] liraglutide AdvReac Mild Nausea Verified 08/14/23 12:00 [From Xultophy 100/3.6] atorvastatin [From Lipitor] AdvReac Unknown Unknown Verified 08/14/23 12:00 codeine AdvReac Unknown Unknown Verified 08/14/23 12:00 tizanidine AdvReac Unknown Unknown Verified 08/14/23 12:00 Family History Father CAD (coronary artery disease) Mother CAD (coronary artery disease) Brother CAD (coronary artery disease) Surgical History H/O coronary artery bypass surgery (~06/01/17) History of bilateral cataract extraction History of cholecystectomy History of knee surgery History of total hysterectomy Social History household members: none housing: assisted living facility Smoking Status: Former smoker how long ago did patient quit smokin years ago second hand exposure: Yes alcohol intake: never substance use type: does not use caffeine: No ROS ROS ED Constitutional Constitutional ED: Reports chills and fever(s); Denies weight loss Eyes Eyes: Denies change in vision or diplopia ENT ENT ED: Reports sore throat; Denies ear pain or rhinorrhea Cardiovascular Cardiovascular: Reports chest pain; Denies orthopnea, palpitations or racing heartbeat Respiratory/Chest Respiratory/Chest: Denies cough, dyspnea or orthopnea Gastrointestinal Gastrointestinal: Reports diarrhea, nausea and vomiting; Denies abdominal pain Genitourinary Genitourinary ED: Denies dysuria, hematuria or urinary frequency Musculoskeletal Musculoskeletal: Reports arthralgias, back pain, myalgias and neck pain Integumentary Denies abscess or rash Neurologic Neurologic: Reports headache(s) and weakness Psychiatric Psychiatric: Denies anxiety, depression, suicidal ideation or suicidal thoughts Endocrine Endocrinology: Denies polydipsia, polyphagia or polyuria Allergic/Immunologic Allergic/Immunologic ED: Denies mouth swelling, tongue swelling or urticaria EXAM Physical Exam Const Vital Signs: 08/14/23 11:52 08/14/23 12:14 08/14/23 13:37 Temperature 101.5 F H 100.2 F H Temperature Source Oral Oral Pulse Rate 132 H 104 H Respiratory Rate 34 H 24 H Respiratory Effort Normal Non-Labored Blood Pressure 179/85 H 142/62 H Blood Pressure Mean 116 88 Pulse Ox 89 96 Oxygen Delivery Method Room Air Nasal Cannula Oxygen Flow Rate (L/min) 2 MDM MDM MDM Narrative Medical decision making narrative: Basic blood work showed a white count of 12.5. Glucose 209. Lactic acid normalis 1.8 normal liver enzymes and lipase. Urinalysis is not infected. COVID and influenza swabs were negative. My depend interpretation of the chest x-ray is no acute process. Patient received Tylenol which is effectively reduced her temperature. Heart rate respiratory rate are within normal limits now. Blood pressure has been stable. IV fluid Zofran. She is now sipping on water. I updated family and the patient regarding her labs. We will bring her in under observational status. History & Record Review Discussion w/independent historian: EMS personnel, Patient and Family Lab Data Attestation: I reviewed the patient's lab results. Labs: Laboratory Results - last 24 hr 08/14/23 08/14/23 12:05 12:41 WBC 12.5 H RBC 4.77 Hgb 13.9 Hct 42.8 MCV 89.7 MCH 29.1 MCHC 32.5 RDW Std Deviation 41.1 RDW Coeff of Sky 12.5 Plt Count 294 MPV 10.0 Immature Gran % (Auto) 0.600 Neut % (Auto) 88.1 H Lymph % (Auto) 7.1 L [place] % (Auto) 3.7 Eos % (Auto) 0.2 Baso % (Auto) 0.3 Absolute Neuts (auto) 11.0 H Absolute Lymphs (auto) 0.89 Nucleated RBC % 0 PT 16.3 H INR 1.3 APTT 28.7 Sodium 138 Potassium 3.5 Chloride 105 Carbon Dioxide 27.0 Anion Gap 6 BUN 11 Creatinine 0.98 Est GFR (MDRD) Af Amer 70 Est GFR (MDRD) Non-Af 58 L BUN/Creatinine Ratio 11.2 Glucose 209 H Lactic Acid 1.8 Calcium 9.2 Total Bilirubin 0.50 Direct Bilirubin 0.07 AST 22 ALT 14 Alkaline Phosphatase 98 Total Protein 7.6 Albumin 2.8 L Globulin 4.8 H Lipase 17 Urine Color Yellow Urine Clarity Clear Urine pH 6.0 Ur Specific [place] 1.020 Urine Protein 30 H Urine Glucose (UA) 100 H Urine Ketones 5 H Urine Occult Blood 25 H Urine Nitrite Negative Urine Bilirubin Negative Urine Urobilinogen Normal Ur Leukocyte Esterase Negative Urine RBC 0 SEEN Urine WBC 0 SEEN Ur Squamous Epith Cells 0 SEEN Urine Bacteria 0 SEEN Urine Mucus 0 SEEN EKG Initial EKG: Attestation: I personally reviewed and interpreted this EKG as follows: Comments: EKG shows a sinus tachycardia with a ventricular rate of 127 bpm. Discharge Plan Dx/Rx/DC Orders Clinical Impression: Gastroenteritis, Acute febrile illness Disposition Disposition: [facility] What to do if you have Problems For any increased pain, shortness of breath, bleeding, nausea or vomiting, chestpain, or any unexpected problems, contact your Primary Care Provider. Call [facility] ([phone]) or report to the closest Emergency Room. Call 911 if necessary. 08/14/23 1621 <Electronically signed by Enrrique Eric DO> Cosigner Signature (if applicable): CC: Dr. Rosalind Rubalcava MD ~ Signed [facility] Work Phone: 1(333) 849-271011-08-2023 Note. MICRO - Microbiology PROCEDURE: Urine Culture [*1] SOURCE: Urine, Clean Catch BODY SITE: COLLECTED DATE/TIME: 2023 17:30 EST RECEIVED DATE/TIME: 2023 19:45 EST START DATE/TIME: 2023 19:46 EST FREE TEXT SOURCE: FINAL REPORTS Final Report [] Verified Date/Time/Personnel: 08/10/2023 14:36 EST >100,000 cfu/ml Multiple bacterial morphotypes present. Probable Contamination. Suggest recollection if clinically indicated. Performing Locations *1: This test was performed at: [facility], [address] [place] [address], [phone] , Formerly [facility] ([place])06-10-2023 Hospital Discharge instructions Additional Instructions Discharge to [facility] 06/10/2023, [facility] PT/OT/[facility] Work Phone: 1(224) 792-773709-08-2023 Discharge summary Author Senthil Ortiz [facility] June 10, 2023 8:09am Note Date/Time June 07, 2023 8:55pm [facility] Medical Records Department [address] [place] [address] Discharge Summary 06/07/232050 MR#: [id number] Acct: [id number] Name: LUIZA GALO Rep #:[id number] : 1940 82 From: Senthil Ortiz MD PCP: Dr. Rosalind Rubalcava MD Status:ADM IN Location: [place] [address] Providers Date of Admission: 05/17/23 Primary Care Physician: Dr. Rosalind Rubalcava MD Reason For Visit: FUO/TRANSAMINITIS/HYPERBILIRUBINEMIA Diagnosis Discharge Diagnosis (1) Debility: Status: Acute Code(s): R53.81 - Other malaise (2) Fever: Status: Resolved Code(s): R50.9 - Fever, unspecified Qualifiers: Fever type: unspecified Qualified Code(s): R50.9 - Fever, unspecified (3) Encephalopathy: Status: Acute Code(s): G93.40 - Encephalopathy, unspecified (4) Jaundice: Status: Resolved Code(s): R17 - Unspecified jaundice (5) Transaminitis: Status: Resolved Code(s): R74.01 - Elevation of levels of liver transaminase levels (6) Acute cholangitis: Status: Acute Code(s): K83.09 - Other cholangitis (7) Choledocholithiasis: Status: Acute Code(s): K80.50 - Calculus of bile duct without cholangitis or cholecystitis without obstruction (8) Atrial fibrillation: Status: Acute Code(s): I48.91 - Unspecified atrial fibrillation (9) Hypertension: Status: Chronic Code(s): I10 - Essential (primary) hypertension (10) Restrictive lung disease: Status: Acute Code(s): J98.4 - Other disorders of lung (11) Coronary artery disease: Status: Acute Code(s): I25.10 - Atherosclerotic heart disease of [place] coronary artery without angina pectoris (12) Hyperlipidemia: Status: Inactive Code(s): E78.5 - Hyperlipidemia, unspecified Qualifiers: Hyperlipidemia type: unspecified Qualified Code(s): E78.5 - Hyperlipidemia, unspecified (13) Anxiety: Status: Acute Code(s): F41.9 - Anxiety disorder, unspecified (14) Allergic rhinitis: Status: Acute Code(s): J30.9 - Allergic rhinitis, unspecified (15) Depression: Status: Acute Code(s): F32.A - Depression, unspecified (16) Diabetes mellitus: Status: Inactive Code(s): E11.9 - Type 2 diabetes mellitus without complications Qualifiers: Qualified Code(s): 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; Z79.4 - MCFP (current) use of insulin; Z79.4 - MCFP (current) use of insulin; Z79.4 - MCFP (current) use of insulin (17) Restless leg syndrome: Status: Acute Code(s): G25.81 - Restless legs syndrome (18) Insomnia: Status: Inactive Code(s): G47.00 - Insomnia, unspecified (19) Overactive bladder: Status: Acute Code(s): N32.81 - Overactive bladder (20) Muscle spasm: Status: Acute Code(s): M62.838 - Other muscle spasm Plan 82 year old female with below past medical history hospitalized for fever, encephalopathy, jaundice secondary to acute cholangitis from choledocholithiasis, admitted to TCU with debility, here for rehabilitation, strengthening, prior to discharge home to [facility]. * Debility - PT/OT. * Pain - Tylenol 1000mg q6h prn pain (1-5), [place] 5/325mg 1 tablet Q12H prn pain (6-10). * Bowel - Loperamide 4mg q2h prn. * Adult immunization - Administer pneumonia vaccine, covid19 vaccine, flu vaccine as appropriate. * DVT prophylaxis - on Eliquis. * Anxiety - Xanax 0.5mg 4x/day, stable chronic long term acute care registered nurse use, GDR not recommended. * Hypertension - Metoprolol succinate 25mg daily, Losartan 100mg daily, Amlodipine 5mg daily. * Atrial fibrillation - Metoprolol succinate 25mg daily, Eliquis 5mg bid. * Hyperlipidemia - Atorvastatin 40mg qhs. * Depression - Lexapro 10mg daily, Topamax 50mg bid, stable chronic alf use, GDR not recommended. * Edema - Furosemide 20mg daily. * Diabetes Mellitus II - Glargine 40 units qhs. * Acute cholangitis s/p ERCP - Levaquin 750mg daily thru 05/19/2023. * Coronary artery disease - Metoprolol succinate 25mg daily, Losartan 100mg daily, NTG 0.4mg sl q5m prn. * Allergic rhinitis - Singulair 10mg daily. * Restless leg syndrome - Mirapex 1mg bid. * Muscle spasm - Tizanidine 4mg q8h. * Insomnia - Trazodone 300mg qhs, stable chronic long term acute care registered nurse use, GDR not recommended. * Vitamin D deficiency - D3 125mcg daily. Medications at Discharge Home Medications atorvastatin 40 mg tablet 40 mg PO QDAY cholesterol #30 tabs 03/02/18 alprazolam 0.5 mg tablet 0.5 mg PO 4X/DAY anxiety 11/23/19 montelukast 10 mg tablet 10 mg PO DAILY allergies 12/29/20 nitroglycerin 0.4 mg sublingual tablet (Nitrostat) 0.4 mg sublingual Q5-15M PRN chest pain #25 tabs 10/21/21 BP cuff #1 ea 01/20/22 cholecalciferol (vitamin D3) 125 mcg (5,000 unit) capsule 125 mcg PO DAILY vitamin 01/20/22 escitalopram oxalate 10 mg tablet (Lexapro) 10 mg PO DAILY depression 01/20/22 topiramate 100 mg tablet 50 mg PO BID nerve pain 01/20/22 acetaminophen 500 mg tablet (Tylenol Extra Strength) 1,000 mg PO Q4H PRN pain 05/19/22 hydrocodone-acetaminophen 5-325mg 5mg-325mg ([place]) 1 tab PO Q12H PRN Pain 1-10 Or Fever 05/19/22 ropinirole 1 mg tablet 2 mg PO BID pain 05/19/22 trazodone 150 mg tablet 300 mg PO QHS sleep 05/19/22 apixaban 5 mg tablet (Eliquis) 5 mg PO DAILY blood thinner 04/20/23 furosemide 20 mg tablet 20 mg PO DAILY water pill 05/12/23 tizanidine 4 mg capsule 4 mg PO Q8H spasms 05/12/23 loperamide 2 mg capsule (Anti-Diarrheal (loperamide)) 4 mg PO Q2H PRN diarrhea 05/16/23 amlodipine 5 mg tablet 5 mg PO DAILY BP #0 tabs 05/17/23 insulin glargine-yfgn 100 unit/mL (3 mL) subcutaneous pen 40 unit (0.4 mL) subcut QHS blood sugar #15 mL 05/17/23 losartan 100 mg tablet 100 mg PO DAILY BP #1 TAB 05/17/23 metoprolol succinate 50 mg tablet,extended release 24 hr 50 mg PO DAILY 30 days #30 tabs 06/07/23 Hospital Course Operations ERCP Procedures None Summary of Care Provided Minutes Spent on Discharge: 35 Hospital Course: 82 year old female with below past medical history hospitalized for fever, encephalopathy, jaundice secondary to acute cholangitis from choledocholithiasis, admitted to TCU with debility, here for rehabilitation, strengthening, prior to discharge home to [facility]. Discharge to [facility] 06/10/2023, [facility] PT/OT/ST. Physical Exam Const alert General Appearance: cooperative HEENT normocephalic Eyes PERRL and EOMs intact bilaterally Neck supple, no JVD and no carotid bruits Resp normal respiratory effort, normal air movement and clear to auscultation bilaterally Cardio regular rate and regular rhythm GI normal to inspection, nondistended, normoactive bowel sounds, non-tender and non-distended Extremity normal capillary refill General Extremity: Negative for edema Skin no rashes or lesions noted General Skin Exam: no breakdown Psych affect normal Appearance: appropriate Weight / BMI Weight Weight: 83.688 kg Body Mass Index (BMI) 33.7 ABG / Lab / Microbiology Data 06/01/23 05:18 06/01/23 05:18 Laboratory: Laboratory Results - last 24 hr 06/06/23 21:21: POC Glucose 220 H 06/07/23 06:19: POC Glucose 123 H 06/07/23 11:21: POC Glucose 171 H 06/07/23 16:23: POC Glucose 192 H Microbiology: Microbiology 05/31/23 18:00 Urine, Catheterized Urine Culture - Final Escherichia coli Vancomycin Resist. E. faecalis Aerococcus viridans. 05/31/23 18:21 Nasal Secretion SARS-CoV-2 Antigen (Rapid) - Final 05/29/23 10:10 Stool C. difficile DNA Amplification - Final D/C Instructions Discharge Diet: No restrictions Discharge Activity: Return to Normal Activity, May Shower and Use Walker Weight Bearing Status: Weight bearing as tolerated Call your doctor if you observe: Fever of 101 or Higher, Inability to urinate, Inability to have a bowel movement, Shortness of breath, Dizziness, Fainting spells, Swelling in the ankles, Chest pain and Uncontrolled pain Additional Instructions: Discharge to [facility] 06/10/2023, [facility] PT/OT/ST. Please Follow Up With: Friend,Doe, DO When: As scheduled. Meaningful Use Info Meaningful Use Diagnoses (Choose all that apply): None applicable Discharge Plan Admission Admit Date/Time: 05/17/23 18:15 Primary Reason for Your Visit: Debility. Attending Provider: Senthil Ortiz Chi Primary Care Provider: Rosalind Rubalcava Instructions Additional Instructions / Restrictions: Discharge to [facility] 06/10/2023, [facility] PT/OT/ST. Discharge Orders/Prescriptions Prescriptions: New metoprolol succinate 50 mg Tablet Extended Release 24 Hr 50 mg PO DAILY 30 Days Qty: 30 0RF Continued alprazolam 0.5 mg tablet 0.5 mg PO 4X/DAY montelukast 10 mg tablet 10 mg PO DAILY hydrocodone-acetaminophen [[place]] 5-325 mg tablet 1 tab PO Q12H PRN (Reason: Pain 1-10 Or Fever) nitroglycerin [Nitrostat] 0.4 mg tablet, sublingual 0.4 mg sublingual Q5-15M PRN (Reason: chest pain) Qty: 25 3RF Rx Instructions: do not exceed 3 doses per episode topiramate 100 mg tablet 50 mg PO BID cholecalciferol (vitamin D3) 125 mcg (5,000 unit) capsule 125 mcg PO DAILY escitalopram oxalate [Lexapro] 10 mg tablet 10 mg PO DAILY trazodone 150 mg tablet 300 mg PO QHS ropinirole 1 mg tablet 2 mg PO BID acetaminophen [Tylenol Extra Strength] 500 mg tablet 1,000 mg PO Q4H PRN (Reason: pain) Eliquis 5 mg tablet 5 mg PO DAILY furosemide 20 mg tablet 20 mg PO DAILY tizanidine 4 mg capsule 4 mg PO Q8H loperamide [Anti-Diarrheal (loperamide)] 2 mg capsule 4 mg PO Q2H PRN (Reason: diarrhea) Rx Instructions: after first loose stool, 1 tablet after each subsequent loose stool but no more than 4 tablets in 24 hours insulin glargine-yfgn 100 unit/mL (3 mL) Insulin Pen 40 unit subcut QHS Qty: 15 0RF amlodipine 5 mg Tablet 5 mg PO DAILY Qty: 0 0RF losartan 100 mg Tablet 100 mg PO DAILY Qty: 1 0RF atorvastatin 40 mg tablet 40 mg PO QDAY Qty: 30 6RF Discontinued aspirin 81 mg tablet,delayed release (DR/EC) 81 mg PO QDAY metoprolol succinate 50 mg tablet extended release 24 hr 25 mg PO DAILY levofloxacin 750 mg tablet 750 mg PO DAILY Qty: 3 0RF No Action (DME) BP cuff See Rx Instructions .Route .MEDSUPPLY Qty: 1 0RF Hold Instructions: MD Ordered Rx Instructions: As directed Referrals / Follow Up: Rosalind Rubalcava MD [Primary Care Provider] - Disposition Disposition (needs filled in before D/C Order can be placed): Assisted Living 06/07/232101 <Electronically signed by Senthil Ortiz MD> Cosigner Signature (if applicable): CC: Dr. Rosalind Rubalcava MD; Dr. Senthil Ortiz MD~ Signed ADDENDUM by Dr. Senthil Ortiz MD on 06/10/23 at 0809 Addendum Discharge to [facility] 06/10/2023, [facility] Care PT/OT/ST. 06/10/23 0809<Electronically signed by Senthil Ortiz MD> Cosigner Signature (if applicable): cc: Dr. Rosalind Rubalcava MD; Dr. Senthil Ortiz MD ~* Signed [facility] Work Phone: 1(488) 370-894409-08-2023 Discharge summary Author Senthil Ortiz [facility] June 10, 2023 8:09am Note Date/Time June 07, 2023 9:05pm [facility] Medical Records Department [address] [place] [address] Transfer to [facility] MR#: [id number] Acct: [id number] Name: LUIZA GALO Corrine Rep #:[id number] : 1940 82 From: Senthil Ortiz MD PCP: Dr. Rosalind Rubalcava MD Status:ADM IN Certification of patient admission REQUIRED AT TIME OF ADMISSION. I CERTIFY THAT POST-HOSPITAL ECF SERVICES ARE REQUIRED TO BE GIVEN ON AN IN-PATIENT BASIS BECAUSE OF THE ABOVE NAMED PATIENT'S NEED FOR CARE HOME CARE ON A CONTINUING BASIS FOR THE CONDITION(S) FOR WHICH HE/SHE WAS RECEIVING IN-PATIENT HOSPITAL SERVICES PRIOR TO HIS/HER TRANSFER TO THE ECF. 06/07/232104<Electronically signed by Senthil Ortiz MD> Diet Diet Order/Speech Therapy: 06/01/23 11:42 Diet: Regular - General Is pt able to select menu?: Yes Diet Comments: small portions per res request Routine Orders/Code Status Code Status: DNRCC-A (With Intubation) Wound(s) Under right breast, open area: Wound Type: Moisture associated Dressing Change: nystatin Posterior right side scab: Wound Type: Scab Therapies Weight Bearing: Weight bearing as tolerated Extremity Affected:: Bilateral Lower Physical Therapy: Eval and Treat Occupational Therapy: Eval and Treat Speech Therapy: Eval and Treat Problem/Diagnosis (1) Debility: Status: Acute Code(s): R53.81 - Other malaise (2) Fever: Status: Resolved Code(s): R50.9 - Fever, unspecified (3) Encephalopathy: Status: Acute Code(s): G93.40 - Encephalopathy, unspecified (4) Jaundice: Status: Resolved Code(s): R17 - Unspecified jaundice (5) Transaminitis: Status: Resolved Code(s): R74.01 - Elevation of levels of liver transaminase levels (6) Acute cholangitis: Status: Acute Code(s): K83.09 - Other cholangitis (7) Choledocholithiasis: Status: Acute Code(s): K80.50 - Calculus of bile duct without cholangitis or cholecystitis without obstruction (8) Atrial fibrillation: Status: Acute Code(s): I48.91 - Unspecified atrial fibrillation (9) Hypertension: Status: Chronic Code(s): I10 - Essential (primary) hypertension (10) Restrictive lung disease: Status: Acute Code(s): J98.4 - Other disorders of lung (11) Coronary artery disease: Status: Acute Code(s): I25.10 - Atherosclerotic heart disease of [place] coronary artery without angina pectoris (12) Hyperlipidemia: Status: Inactive Code(s): E78.5 - Hyperlipidemia, unspecified (13) Anxiety: Status: Acute Code(s): F41.9 - Anxiety disorder, unspecified (14) Allergic rhinitis: Status: Acute Code(s): J30.9 - Allergic rhinitis, unspecified (15) Depression: Status: Acute Code(s): F32.A - Depression, unspecified (16) Diabetes mellitus: Status: Inactive Code(s): E11.9 - Type 2 diabetes mellitus without complications (17) Restless leg syndrome: Status: Acute Code(s): G25.81 - Restless legs syndrome (18) Insomnia: Status: Inactive Code(s): G47.00 - Insomnia, unspecified (19) Overactive bladder: Status: Acute Code(s): N32.81 - Overactive bladder (20) Muscle spasm: Status: Acute Code(s): M62.838 - Other muscle spasm Plan 82 year old female with below past medical history hospitalized for fever, encephalopathy, jaundice secondary to acute cholangitis from choledocholithiasis, admitted to TCU with debility, here for rehabilitation, strengthening, prior to discharge home to [facility]. * Debility - PT/OT. * Pain - Tylenol 1000mg q6h prn pain (1-5), [place] 5/325mg 1 tablet Q12H prn pain (6-10). * Bowel - Loperamide 4mg q2h prn. * Adult immunization - Administer pneumonia vaccine, covid19 vaccine, flu vaccine as appropriate. * DVT prophylaxis - on Eliquis. * Anxiety - Xanax 0.5mg 4x/day, stable chronic alf use, GDR not recommended. * Hypertension - Metoprolol succinate 25mg daily, Losartan 100mg daily, Amlod ipine 5mg daily. * Atrial fibrillation - Metoprolol succinate 25mg daily, Eliquis 5mg bid. * Hyperlipidemia - Atorvastatin 40mg qhs. * Depression - Lexapro 10mg daily, Topamax 50mg bid, stable chronic alf use, GDR not recommended. * Edema - Furosemide 20mg daily. * Diabetes Mellitus II - Glargine 40 units qhs. * Acute cholangitis s/p ERCP - Levaquin 750mg daily thru 05/19/2023. * Coronary artery disease - Metoprolol succinate 25mg daily, Losartan 100mg daily, NTG 0.4mg sl q5m prn. * Allergic rhinitis - Singulair 10mg daily. * Restless leg syndrome - Mirapex 1mg bid. * Muscle spasm - Tizanidine 4mg q8h. * Insomnia - Trazodone 300mg qhs, stable chronic alf use, GDR not recommended. * Vitamin D deficiency - D3 125mcg daily. Allergies/Procedures Done in Hospital Allergies insulin isophane (NPH) Allergy (Severe, Verified 05/12/23 20:52) heart burn Anesthetics - Amide Type - Select A Allergy (Verified 05/12/23 20:52) NEEDS FOLLOW-UP Anesthetics - Tyra Type- Parabens Allergy (Verified 05/12/23 20:52) NEEDS FOLLOW-UP latex Allergy (Verified 05/12/23 20:52) Unknown only allergic when already sick promethazine [From Phenergan] Allergy (Verified 05/12/23 20:52) PT UNSURE OF REACTION sitagliptin phosphate [From Januvia] Allergy (Verified 05/12/23 20:52) Unknown insulin degludec [From Xultophy 100/3.6] Adverse Reaction (Mild, Verified 05/12/23 20:52) Nausea liraglutide [From Xultophy 100/3.6] Adverse Reaction (Mild, Verified 04/20/23 14:41) Nausea atorvastatin [From Lipitor] Adverse Reaction (Unknown, Verified 05/12/23 20:52) Unknown codeine Adverse Reaction (Unknown, Verified 05/12/23 20:52) Unknown tizanidine Adverse Reaction (Unknown, Verified 05/12/23 20:52) Unknown Procedures: - (ERCP) Type of Care/Length of Stay Estimated LOS: More Than 30 Days Type of Care Needed: [facility] Re[facility] Potential: Fair Prognosis: Fair Additional Orders/Day of Discharge Day of Discharge: 06/10/23 Dietary and Speech Recommendations Dietitian Recommendations/Changes: Will liberalize diet to Regular w/ small portions d/t variable po intake Rec appetite stimulant to help encourage increased po intake at meals Follow Up Care Please Follow Up With: Doe Orr DO When: 6-8 weeks Discharge Plan Admission Admit Date/Time: 05/17/23 18:15 Primary Reason for Your Visit: Debility. Attending Provider: Senthil Ortiz Chi Primary Care Provider: Rosalind Rubalcava Instructions Additional Instructions / Restrictions: Discharge to [facility] 06/10/2023, [facility] PT/OT/ST. Discharge Orders/Prescriptions Prescriptions: New metoprolol succinate 50 mg Tablet Extended Release 24 Hr 50 mg PO DAILY 30 Days Qty: 30 0RF Continued alprazolam 0.5 mg tablet 0.5 mg PO 4X/DAY montelukast 10 mg tablet 10 mg PO DAILY hydrocodone-acetaminophen [[place]] 5-325 mg tablet 1 tab PO Q12H PRN (Reason: Pain 1-10 Or Fever) nitroglycerin [Nitrostat] 0.4 mg tablet, sublingual 0.4 mg sublingual Q5-15M PRN (Reason: chest pain) Qty: 25 3RF Rx Instructions: do not exceed 3 doses per episode topiramate 100 mg tablet 50 mg PO BID cholecalciferol (vitamin D3) 125 mcg (5,000 unit) capsule 125 mcg PO DAILY escitalopram oxalate [Lexapro] 10 mg tablet 10 mg PO DAILY trazodone 150 mg tablet 300 mg PO QHS ropinirole 1 mg tablet 2 mg PO BID acetaminophen [Tylenol Extra Strength] 500 mg tablet 1,000 mg PO Q4H PRN (Reason: pain) Eliquis 5 mg tablet 5 mg PO DAILY furosemide 20 mg tablet 20 mg PO DAILY tizanidine 4 mg capsule 4 mg PO Q8H loperamide [Anti-Diarrheal (loperamide)] 2 mg capsule 4 mg PO Q2H PRN (Reason: diarrhea) Rx Instructions: after first loose stool, 1 tablet after each subsequent loose stool but no more than 4 tablets in 24 hours insulin glargine-yfgn 100 unit/mL (3 mL) Insulin Pen 40 unit subcut QHS Qty: 15 0RF amlodipine 5 mg Tablet 5 mg PO DAILY Qty: 0 0RF losartan 100 mg Tablet 100 mg PO DAILY Qty: 1 0RF atorvastatin 40 mg tablet 40 mg PO QDAY Qty: 30 6RF Discontinued aspirin 81 mg tablet,delayed release (DR/EC) 81 mg PO QDAY metoprolol succinate 50 mg tablet extended release 24 hr 25 mg PO DAILY levofloxacin 750 mg tablet 750 mg PO DAILY Qty: 3 0RF No Action (DME) BP cuff See Rx Instructions .Route .MEDSUPPLY Qty: 1 0RF Hold Instructions: MD Ordered Rx Instructions: As directed Referrals / Follow Up: Rosalind Rubalcava MD [Primary Care Provider] - Disposition Disposition (needs filled in before D/C Order can be placed): Assisted Living (2) Fever Qualifiers: Fever type: unspecified Qualified Code(s): R50.9 - Fever, unspecified (12) Hyperlipidemia Qualifiers: Hyperlipidemia type: unspecified Qualified Code(s): E78.5 - Hyperlipidemia, unspecified (16) Diabetes mellitus Qualifiers: Qualified Code(s): Z79.4 - MCFP (current) use of insulin; 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 Rosalind Rubalcava MD ~ ADDENDUM by Dr. Senthil Ortiz MD on 06/10/23 at 0809 Addendum Discharge to [facility] 06/10/2023, [facility] Care PT/OT/ST. 06/10/23 0809 <Electronically signed by Senthil Ortiz MD> cc: Dr. Rosalind Rubalcava MD ~* Signed [facility] Work Phone: 1(859) 134-810908-30-2023 History and physical note Author Senthil Angel [facility] June 01, 2023 5:41pm Note Date/Time May 17, 2023 7: 14pm [facility] Medical Records Department [address] [place] [address] History & Physical Exam 05/17/231913 MR#: [id number] Acct: [id number] Name: LUIZA GALO Rep #:[id number] : 1940 82 From: Senthil Ortiz MD PCP: Dr. Rosalind Rubalcava MD Status:ADM IN Location: [address] HPI - General General Date of Admission: 05/17/23 Date of Service: 05/18/23 Chief Complaint: Here for rehabilitation. HPI Narrative 05/12/2023 LUIZA GALO, is a 82 [facility] 05/12/2023 EKG sinus rhythm with first degree AV block. Fever 102.9, change in mental status, decrease oral intake, decreased awareness, decreased orientation. Chronic runny nose, slight cough, blood in urine. Fell from toilet, found between toilet and wall. on blood thinner, may have hit head. Pancultured, started on antibiotics. Bili 3.2, AST 483, ALT 354, Alk phos elevated. Gallbladder ultrasound showed mild biliary ductal dilatation, no stone. 05/13/2023 Admit to Hospital for fall, confusion, fever, nausea/vomiting. Zosyn IV for fever unknown origin. Consult GI for jaundice, elevated liver enzymes. 05/13/2023 Zosyn, Vancomycin for fever, cultures pending. IV fluid bolus for hypotension. MRCP unable due to bladder stimulator. 05/13/2023 Dr. Orr ERCP sphincterotomy, balloon extraction of choledocholithiasis. 05/14/2023 Feeling much better, more energy. Nausea/vomiting, fever, confusion resolved. Abdominal pain improved. Zosyn IV x 7 days, cholangiogram possible bile leak for acute cholangitis. Liver enzymes, bilirubin improving. 05/15/2023 Hydralazine x 2 for elevated blood pressure. Plan TCU. HIDA scan negative, blood cultures negative to date, Finish Zosyn 7 days for acute cholangitis. Liver enzymes markedly improved, Bilirubin normal. 05/16/2023 Not eating much, on regular diet. Liver enzymes almost normal. 05/17/2023 Admit to TCU with debility, here for rehabilitation, strengthening, prior to discharge home to [facility]. 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 Morbid obesity MARIVEL (obstructive sleep apnea) Osteoarthritis Paroxysmal atrial fibrillation Pulmonary embolism Stroke Home Medications aspirin 81 mg tablet,delayed release 81 mg PO QDAY blood thinner 11/03/17 [History Last Taken Unknown] atorvastatin 40 mg tablet 40 mg PO QDAY cholesterol #30 tabs 03/02/18 [Rx Last Taken 05/17/23] alprazolam 0.5 mg tablet 0.5 mg PO 4X/DAY anxiety 11/23/19 [History Last Taken 05/12/23] montelukast 10 mg tablet 10 mg PO DAILY allergies 12/29/20 [History Last Taken Unknown] nitroglycerin 0.4 mg sublingual tablet (Nitrostat) 0.4 mg sublingual Q5-15M PRN chest pain #25 tabs 10/21/21 [Rx Last Taken Unknown] BP cuff #1 ea 01/20/22 [Rx Last Taken Unknown] cholecalciferol (vitamin D3) 125 mcg (5,000 unit) capsule 125 mcg PO DAILY vitamin 01/20/22 [History Last Taken Unknown] escitalopram oxalate 10 mg tablet (Lexapro) 10 mg PO DAILY depression 01/20/22 [History Last Taken Unknown] topiramate 100 mg tablet 50 mg PO BID nerve pain 01/20/22 [History Last Taken Unknown] acetaminophen 500 mg tablet (Tylenol Extra Strength) 1,000 mg PO Q4H PRN pain 05/19/22 [History Last Taken Unknown] hydrocodone-acetaminophen 5-325mg 5mg-325mg ([place]) 1 tab PO Q12H PRN Pain 1-10 Or Fever 05/19/22 [History Last Taken Unknown] ropinirole 1 mg tablet 2 mg PO BID pain 05/19/22 [History Last Taken Unknown] trazodone 150 mg tablet 300 mg PO QHS sleep 05/19/22 [History Last Taken Unknown] apixaban 5 mg tablet (Eliquis) 5 mg PO DAILY blood thinner 04/20/23 [History Last Taken 05/12/23] furosemide 20 mg tablet 20 mg PO DAILY water pill 05/12/23 [History Last Taken Unknown] tizanidine 4 mg capsule 4 mg PO Q8H spasms 05/12/23 [History Last Taken Unknown] metoprolol succinate 50 mg tablet,extended release 24 hr 25 mg PO DAILY BP 05/13/23 [History Last Taken Unknown] loperamide 2 mg capsule (Anti-Diarrheal (loperamide)) 4 mg PO Q2H PRN diarrhea 05/16/23 [History Last Taken Unknown] amlodipine 5 mg tablet 5 mg PO DAILY BP #0 tabs 05/17/23 [Rx Last Taken Unknown] insulin glargine-yfgn 100 unit/mL (3 mL) subcutaneous pen 40 unit (0.4 mL) subcut QHS blood sugar #15 mL 05/17/23 [Rx Last Taken Unknown] levofloxacin 750 mg tablet 750 mg PO DAILY antibiotic #3 tabs 05/17/23 [Rx Last Taken Unknown] losartan 100 mg tablet 100 mg PO DAILY BP #1 TAB 05/17/23 [Rx Last Taken Unknown] Allergy/AdvReac Type Severity Reaction Status Date / Time insulin isophane (NPH) Allergy Severe heart burn Verified 05/12/23 20:52 Anesthetics - Amide Type - Allergy NEEDS Verified 05/12/23 20:52 Select A FOLLOW-UP Anesthetics - Tyra Type- Allergy NEEDS Verified 05/12/23 20:52 Parabens FOLLOW-UP latex Allergy Unknown Verified 05/12/23 20:52 promethazine [From Phenergan] Allergy PT UNSURE Verified 05/12/23 20:52 OF REACTION sitagliptin phosphate Allergy Unknown Verified 05/12/23 20:52 [From Januvia] insulin degludec AdvReac Mild Nausea Verified 05/12/23 20:52 [From Xultophy 100/3.6] liraglutide AdvReac Mild Nausea Verified 04/20/23 14:41 [From Xultophy 100/3.6] atorvastatin [From Lipitor] AdvReac Unknown Unknown Verified 05/12/23 20:52 codeine AdvReac Unknown Unknown Verified 05/12/23 20:52 tizanidine AdvReac Unknown Unknown Verified 05/12/23 20:52 Family History Father CAD (coronary artery disease) Mother CAD (coronary artery disease) Brother CAD (coronary artery disease) Surgical History H/O coronary artery bypass surgery (~06/01/17) History of bilateral cataract extraction History of cholecystectomy History of knee surgery History of total hysterectomy Social History household members: none housing: assisted living facility Smoking Status: Former smoker how long ago did patient quit smokin years ago second hand exposure: Yes alcohol intake: never substance use type: does not use caffeine: No ROS Constitutional Constitutional: Denies chills, fever(s) or weight gain ENT HEENT: Denies headache(s), nasal congestion or nasal discharge Cardiovascular Cardiovascular: Denies chest pain or palpitations Respiratory/Chest Respiratory/Chest: Denies cough, excessive phlegm production or shortness of breath with exertion Gastrointestinal Gastrointestinal: Denies abdominal pain, nausea or vomiting Genitourinary Genitourinary: Denies dysuria Musculoskeletal Musculoskeletal: Denies joint pain or joint swelling Integumentary Integumentary: Denies rash or wounds Neurologic Neurologic: Denies focal weakness, numbness or tingling Psychiatric Psychiatric: Denies anxiety, auditory hallucinations, depression, homicidal ideation or suicidal ideation Vital Signs Vital Signs Vital Signs: 05/17/23 18:43 Temperature 97.8 F Temperature Source Temporal Pulse Rate 60 Respiratory Rate 18 Blood Pressure 140/50 H Blood Pressure Mean 80 Blood Pressure Source Monitor Blood Pressure Position Supine Blood Pressure Location Right Arm Pulse Ox 95 Oxygen Delivery Method Room Air Weight Weight: 87.407 kg Body Mass Index (BMI) 35.2 Physical Exam Const alert General Appearance: cooperative HEENT normocephalic Eyes PERRL and EOMs intact bilaterally Neck supple, no JVD and no carotid bruits Resp normal respiratory effort, normal air movement and clear to auscultation bilaterally Cardio regular rate and regular rhythm GI normal to inspection, nondistended, normoactive bowel sounds, non-tender and non-distended Extremity normal capillary refill General Extremity: Negative for edema Skin no rashes or lesions noted General Skin Exam: no breakdown Psych affect normal Appearance: appropriate Results Lab / Micro Data 05/18/23 05:24 05/18/23 05:24 Assessment & Plan Assessment/Plan (1) Debility: (2) Fever: QUALIFIERS: Fever type: unspecified Qualified Code(s): R50.9 - Fever, unspecified (3) Encephalopathy: (4) Jaundice: (5) Transaminitis: (6) Acute cholangitis: (7) Choledocholithiasis: (8) Atrial fibrillation: (9) Hypertension: (10) Restrictive lung disease: (11) Coronary artery disease: (12) Hyperlipidemia: QUALIFIERS: Hyperlipidemia type: unspecified Qualified Code(s): E78.5 - Hyperlipidemia, unspecified (13) Anxiety: (14) Allergic rhinitis: (15) Depression: (16) Diabetes mellitus: QUALIFIERS: Qualified Code(s): Z79.4 - MCFP (current) use of insulin; 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 * Debility - PT/OT. * Pain - Tylenol 1000mg q6h prn pain (1-5), [place] 5/325mg 1 tablet Q12H prn pain (6-10). * Bowel - Loperamide 4mg q2h prn. * Adult immunization - Administer pneumonia vaccine, covid19 vaccine, flu vac cine as appropriate. * DVT prophylaxis - on Eliquis. * Anxiety - Xanax 0.5mg 4x/day, stable chronic long term acute care registered nurse use, GDR not recommended. * Hypertension - Metoprolol succinate 25mg daily, Losartan 100mg daily, Amlodipine 5mg daily. * Atrial fibrillation - Metoprolol succinate 25mg daily, Eliquis 5mg bid. * Hyperlipidemia - Atorvastatin 40mg qhs. * Depression - Lexapro 10mg daily, Topamax 50mg bid, stable chronic long term acute care registered nurse use, GDR not recommended. * Edema - Furosemide 20mg daily. * Diabetes Mellitus II - Glargine 40 units qhs. * Acute cholangitis s/p ERCP - Levaquin 750mg daily thru 05/19/2023. * Coronary artery disease - Metoprolol succinate 25mg daily, Losartan 100mg daily, NTG 0.4mg sl q5m prn. * Allergic rhinitis - Singulair 10mg daily. * Restless leg syndrome - Mirapex 1mg bid. * Muscle spasm - Tizanidine 4mg q8h. * Insomnia - Trazodone 300mg qhs, stable chronic alf use, GDR not recomme nded. * Vitamin D deficiency - D3 125mcg daily. 05/18/23 0749 <Electronically signed by Senthil Ortiz MD> Cosigner Signature (if applicable): CC: Dr. Rosalind Rubalcava MD; Dr. Senthil Ortiz MD~ Signed ADDENDUM by Dr. Senthil Ortiz MD on 06/01/23 at 1741 Addendum Appetite loss - Rx Mirtazapine 7.5mg qhs. 06/01/23 1741<Electronically signed by Senthil Ortiz MD> Cosigner Signature (if applicable): cc: Dr. Rosalind Rubalcava MD; Dr. Senthil Ortiz MD ~* Signed [facility] Work Phone: 1(914) 305-962508-16-2023 Progress note Author [facility] May 18, 2023 5:22pm Note Date/Time May 18, 2023 3: 14pm [facility] Medical Records Department [address] [place] [id number] Progress Note - Pharmacy 05/18/23 1505 MR#: [id number] Acct: [id number] Name: LUIZA GALO Rep #:[id number] : 1940 82 From: Rosie Kitchen PCP: Dr. Rosalind Rubalcava MD Status:ADM IN Location: [place] [address] Documented by User: Rosie Kitchen 05/18/23 15:29 TCU RX Drug Regimen Review Subjective/Objective Subjective/Objective: Subjective: TCU Admission. 82 YOF presented to the ER with fever. Hospitalized for fever, encephalopathy, jaundice secondary to acute cholangitis from choledocholithiasis. Admitted to TCU with debility for strengthening and rehabilitation. Objective: Allergies insulin isophane (NPH) Allergy (Severe, Verified 05/12/23 20:52) heart burn Anesthetics - Amide Type - Select A Allergy (Verified 05/12/23 20:52) NEEDS FOLLOW-UP Anesthetics - Tyra Type- Parabens Allergy (Verified 05/12/23 20:52) NEEDS FOLLOW-UP latex Allergy (Verified 05/12/23 20:52) Unknown only allergic when already sick promethazine [From Phenergan] Allergy (Verified 05/12/23 20:52) PT UNSURE OF REACTION sitagliptin phosphate [From Januvia] Allergy (Verified 05/12/23 20:52) Unknown insulin degludec [From CombaGroupltophy 100/3.6] Adverse Reaction (Mild, Verified 05/12/23 20:52) Nausea liraglutide [From Xultophy 100/3.6] Adverse Reaction (Mild, Verified 04/20/23 14:41) Nausea atorvastatin [From Lipitor] Adverse Reaction (Unknown, Verified 05/12/23 20:52) Unknown codeine Adverse Reaction (Unknown, Verified 05/12/23 20:52) Unknown tizanidine Adverse Reaction (Unknown, Verified 05/12/23 20:52) Unknown Current Medications Generic Name Dose Route Start Last Admin Trade Name Freq PRN Reason Stop Dose Admin Acetaminophen 1,000 mg 05/17/23 19:37 05/18/23 03:54 Acetaminophen 500 Mg Tablet PO 1,000 mg Q6H PRN Administration Pain Score 1-5 Hydrocodone Bitart/Acetaminophen 1 tablet 05/17/23 19:38 Hydrocodone Bitartrate/Apap 5/325 Tablet PO Q12H PRN Pain Score 6-10 Alprazolam 0.5 mg 05/17/23 22:00 05/18/23 12:24 Alprazolam 0.5 Mg Tablet PO 0.5 mg 4X/DAY AMBER Administration Amlodipine Besylate 5 mg 05/18/23 06:00 05/18/23 06:24 Amlodipine 5 Mg Tablet PO 5 mg DAILY AMBER Administration Apixaban 5 mg 05/18/23 06:00 05/18/23 06:24 Apixaban 5 Mg Tablet PO 5 mg BID AMBER Administration Atorvastatin Calcium 40 mg 05/17/23 22:00 05/17/23 22:04 Atorvastatin Calcium 40 Mg Tablet PO 40 mg QHS AMBER Administration Cholecalciferol 125 mcg 05/18/23 06:00 05/18/23 06:23 Cholecalciferol (Vit D3) 125 Mcg Capsule (5,000 Units) PO 125 mcg DAILY AMBER Administration Escitalopram Oxalate 10 mg 05/18/23 06:00 05/18/23 06:24 Escitalopram Oxalate 10 Mg Tablet PO 10 mg DAILY AMBER Administration Furosemide 20 mg 05/18/23 06:00 05/18/23 06:24 Furosemide 20 Mg Tablet PO 20 mg DAILY AMBER Administration Sodium Chloride 250 mls @ 15 mls/hr 05/17/23 18:56 IV .[id number] PRN Additional IVPB Infusion Sodium Chloride 250 mls @ 15 mls/hr 05/17/23 18:56 IV .[id number] PRN Saline Flush Insulin Glargine 40 unit 05/17/23 22:00 05/17/23 22:03 Insulin Glargine-Yfgn 100 Unit/Ml Pen SC 40 unit QHS AMBER Administration Levofloxacin 750 mg 05/18/23 06:00 05/18/23 08:22 Levofloxacin 750 Mg Tablet PO 05/19/23 23:59 750 mg DAILY AMBER Administration Loperamide HCl 0 mg 05/18/23 08:20 Loperamide 2 Mg Capsule PO Q2H PRN diarrhea Losartan Potassium 100 mg 05/18/23 06:00 05/18/23 06:24 Losartan Potassium 100 Mg Tablet PO 100 mg DAILY AMBER Administration Metoprolol Succinate 25 mg 05/18/23 06:00 05/18/23 06:23 Metoprolol(Xl)Succ 25 Mg Tablet PO 25 mg DAILY AMBER Administration Montelukast Sodium 10 mg 05/18/23 06:00 05/18/23 06:23 Montelukast 10 Mg Tablet PO 10 mg DAILY AMBER Administration Nitroglycerin 0.4 mg 05/17/23 19:09 Nitroglycerin (Inpatient Use) 0.4 Mg Tab.Subl SL Q5M PRN chest pain Pramipexole Dihydrochloride 1 mg 05/18/23 06:00 05/18/23 06:24 Pramipexole Di-Hcl 1 Mg Tablet PO 1 mg BID AMBER Administration Sodium Chloride 10 - 40 ml 05/17/23 18:56 05/18/23 03:56 0.9% Saline Lock 10 Ml Syringe IV 10 ml UD PRN Administration SALINE FLUSH Tizanidine HCl 4 mg 05/17/23 22:00 05/18/23 14:15 Tizanidine Hcl 2 Mg Tablet PO 4 mg Q8H AMBER Administration Topiramate 50 mg 05/18/23 06:00 05/18/23 06:24 Topiramate 50 Mg Tablet PO 50 mg BID AMBER Administration Trazodone HCl 150 mg 05/17/23 22:00 05/17/23 22:04 Trazodone 100 Mg Tablet PO 150 mg QHS AMBER Administration Tuberculin PPD 0.1 ml 05/25/23 10:00 Tuberculin,Purif.Prot.Deriv. 50 Tu/Ml Vial ID 05/25/23 10:01 X1 ONE Problem List (Updated 05/17/23 @ 19:[address] Senthil Ortiz MD) Muscle spasm (Acute) Overactive bladder (Acute) Restless leg syndrome (Acute) Depression (Acute) Allergic rhinitis (Acute) Anxiety (Acute) Coronary artery disease (Acute) Hypertension (Chronic) Atrial fibrillation (Acute) Choledocholithiasis (Acute) Acute cholangitis (Acute) Encephalopathy (Acute) Debility (Acute) Transaminitis (Acute) Fever (Acute) Jaundice (Acute) Restrictive lung disease (Acute) Diabetes mellitus (Chronic) Hyperlipidemia (Chronic) Vital Signs Temp Pulse Resp BP Pulse Ox O2 Del Method 98.9 F 62 18 175/62 H 97 Room Air 05/18/23 13:43 05/18/23 13:43 05/18/23 13:43 05/18/23 13:43 05/18/23 13:43 05/18/23 13:43 Oxygen Delivery Method Room Air Weight: 87.407 kg Body Mass Index (BMI) 35.2 Sodium 144 mmol/L (136-145) 05/18/23 05:24 Potassium 3.6 mmol/L (3.5-5.1) 05/18/23 05:24 Chloride 112 mmol/L (98-107) H 05/18/23 05:24 Carbon Dioxide 29.0 mmol/L (21.0-32.0) 05/18/23 05:24 Anion Gap 3 (5-15) L 05/18/23 05:24 BUN 10 mg/dL (7-18) 05/18/23 05:24 Creatinine 0.86 mg/dL (0.55-1.02) 05/18/23 05:24 Est GFR (MDRD) Af Amer 81 mL/min (>60) 05/18/23 05:24 Est GFR (MDRD) Non-Af 67 mL/min (>60) 05/18/23 05:24 BUN/Creatinine Ratio 11.6 RATIO (10-20) 05/18/23 05:24 Glucose 129 mg/dL (74-106) H 05/18/23 05:24 Assessment/Plan: 1. Pain: acetaminophen 1,000 mg PO Q6H PRN pain (1-5) and hydrocodone/acetaminophen 5/325 mg PO Q12 PRN pain (6-10). The resident has received 1 dose of PRN acetaminophen (hip pain 05/12; requested Tylenol instead of [place]), and no doses of PRN [place]. Continue to monitor pain and for PRN usageof pain medications.? 2. Bowel: loperamide 4 mg PO after first loose stool, then 2 mg PO after each subsequent loose stool Q2H PRN diarrhea. The resident has not had any PRN usage of this medication; she does not have a recorded BM during her TCU admission, but there is one from 05/16/23. Please continue to monitor for diarrhea and PRN usage. 3. Acute cholangitis: levofloxacin 750 mg PO daily through 05/19/23. Continue to monitor for peripheral neuropathy and C[employer]OMER SEC[employer]ITY CLERK effects (Black Box Warning), tendon pain (black box warning for tendon rupture/tendonitis, diarrhea and renal function (CrCl 52 mL/min using adjusted BW, dose appropriate at this time).? 4. Hypertension/atrial fibrillation/CAD: losartan 100 mg PO daily, amlodipine 5 mg PO daily, metoprolol succinate 25mg PO daily, apixaban 5mg PO BID and nitroglycerin 0.4mg SL Q5M PRN chest pain. Continue to monitor BP (last 175/62),HR (last 62), lower extremity swelling, potassium (last 3.6mmol/L), S/S of bleeding, hemoglobin (last 12.1g/dL), renal function, PRN usage and chest pain. Do not discontinue metoprolol succinate abruptly (Black Box Warning). Resident has not used any PRN doses so far. 5. Hyperlipidemia: atorvastatin 40 mg PO QHS. Please consider ordering a lipid panel as there are no levels in the chart. Thanks. Continue to monitor LFTs (ALTof 77 and AST of 27 of 05/17), and for s/s of myalgias.? 6. Edema: furosemide 20 mg PO daily. Continue to monitor for electrolyte imbalances with a BMP (last performed 05/18), renal function and edema. 7. Diabetes mellitus II: insulin glargine 40 units SC QHS. Continue to monitor blood glucose levels (last 129 on 05/18), hemoglobin A1c (last 7% 05/13/23), and for s/s of hypoglycemia.? 8. Allergic rhinitis: montelukast 10 mg PO daily. Continue to monitor for s/s ofneuropsychiatric events (Black Box Warning) and allergies. 9. Restless leg syndrome: pramipexole 1 mg PO BID. Continue to monitor for dizziness, sedation and S/S of restless legs. 10. Muscle spasm: tizanidine 4 mg PO Q8H. Continue to monitor for xerostomia, hypotension and muscle spasms. 11. Vitamin D deficiency: cholecalciferol 125 mcg PO daily. Please consider ordering a Vitamin D level as the last level was from 09/2017. Thanks.? Assessment/Plan for indications treated with psychotropic medications: 1. Anxiety: alprazolam 0.5 mg PO QID. Please see physician note regarding GDR. Continue to monitor for s/s of CUSTOMER SECURITY CLERK effects (Beer?s Criteria) and respiratory depression, especially if the resident uses PRN doses of [place] (Black Box Warning), falls/fractures (BEERs medication) and dementia/delirium (BEERs medication). 2. Depression: escitalopram 10 mg PO daily and topiramate 50 mg PO BID. Please see physician note regarding GDR. Continue to monitor for fall risk (ataxia, syncope, and impaired psychomotor function (Beer?s Criteria)), sodium (last 144mmol/L). 3. Insomnia: trazodone 150 mg PO QHS. Please see physician note regarding GDR. Continue to monitor for s/s of suicidal ideation (Black Box Warning), agitation and excessive drowsiness. Medical chart and medication regimen reviewed. The following medication irregularities or issues were identified: *1. Atorvastatin 40 mg PO QHS. Please consider ordering a lipid panel as there are no levels in the chart. Thanks. *2. Cholecalciferol 125 mcg PO daily. Please consider ordering a Vitamin D levelas the last level was from 09/2017. Thanks.? Date Date of Note:: 05/18/23 Documented by User: Dr. Senthil Ortiz MD 05/18/23 17:22 TCU RX Drug Regimen Review Provider Comments Provider responsibility Provider Comments to Recommendations by Pharmacy: Agree 05/18/23 1529 <Electronically signed by Rosie Kitchen> Rosie Kitchen Cosigner Signature (if applicable): 05/18/23 1722 <Electronically signed by Senthil Ortiz MD> CC: ~ Signed [facility] Work Phone: 1(236) 508-565708-15-2023 Discharge summary Author Alee Yao [facility] May 17, 2023 4:23pm Note Date/Time May 17, 2023 2: 44pm [facility] Medical Records Department [address] [place] [address] Discharge Summary 05/17/23 1443 MR#: [id number] Acct: [id number] Name: LUIZA GALO Rep #:[id number] : 1940 82 From: Alee Yao DO PCP: Dr. Rosalind Rubalcava MD Status:ADM IN Location: [place] [address] Providers Date of Admission: 05/13/23 Primary Care Physician: Dr. Rosalind Rubalcava MD Consultations 05/13/23 01:59 Consult: Gastroenterology Routine Consulting Provider: [facility] Reason for Consult: Elevated Bili/LFT, N/V, Fever EMERGENT Consult: No MD Notified: Yes Date Notified: 05/13/23 Time Notified: 01:26 Method of Notification: Text Reason For Visit: FUO, TRANSAMINITIS/HYPERBILIRUBINEMIA, ENCEPHALOPA Diagnosis Discharge Diagnosis (1) Fever: Status: Acute Code(s): R50.9 - Fever, unspecified Qualifiers: Fever type: unspecified Qualified Code(s): R50.9 - Fever, unspecified (2) Jaundice: Status: Acute Code(s): R17 - Unspecified jaundice (3) Acute encephalopathy: Status: Acute Code(s): G93.40 - Encephalopathy, unspecified (4) Transaminitis: Status: Acute Code(s): R74.01 - Elevation of levels of liver transaminase levels (5) Elevated serum creatinine: Status: Acute Code(s): R79.89 - Other specified abnormal findings of blood chemistry (6) Immunosuppression due to drug therapy: Status: Acute Code(s): D84.821 - Immunodeficiency due to drugs; Z79.899 - Other alf (current) drug therapy (7) Hypotension: Status: Acute Code(s): I95.9 - Hypotension, unspecified Medications at Discharge Home Medications aspirin 81 mg tablet,delayed release 81 mg PO QDAY blood thinner 11/03/17 atorvastatin 40 mg tablet 40 mg PO QDAY cholesterol #30 tabs 03/02/18 alprazolam 0.5 mg tablet 0.5 mg PO 4X/DAY anxiety 11/23/19 montelukast 10 mg tablet 10 mg PO DAILY allergies 12/29/20 nitroglycerin 0.4 mg sublingual tablet (Nitrostat) 0.4 mg sublingual Q5-15M PRN chest pain #25 tabs 10/21/21 BP cuff #1 ea 01/20/22 cholecalciferol (vitamin D3) 125 mcg (5,000 unit) capsule 125 mcg PO DAILY vitamin 01/20/22 escitalopram oxalate 10 mg tablet (Lexapro) 10 mg PO DAILY depression 01/20/22 topiramate 100 mg tablet 50 mg PO BID nerve pain 01/20/22 acetaminophen 500 mg tablet (Tylenol Extra Strength) 1,000 mg PO Q4H PRN pain 05/19/22 hydrocodone-acetaminophen 5-325mg 5mg-325mg ([place]) 1 tab PO Q12H PRN Pain 1-10 Or Fever 05/19/22 ropinirole 1 mg tablet 2 mg PO BID pain 05/19/22 trazodone 150 mg tablet 300 mg PO QHS sleep 05/19/22 apixaban 5 mg tablet (Eliquis) 5 mg PO DAILY blood thinner 04/20/23 furosemide 20 mg tablet 20 mg PO DAILY water pill 05/12/23 tizanidine 4 mg capsule 4 mg PO Q8H spasms 05/12/23 metoprolol succinate 50 mg tablet,extended release 24 hr 25 mg PO DAILY BP 05/13/23 loperamide 2 mg capsule (Anti-Diarrheal (loperamide)) 4 mg PO Q2H PRN diarrhea 05/16/23 amlodipine 5 mg tablet 5 mg PO DAILY #0 tabs 05/17/23 insulin glargine-yfgn 100 unit/mL (3 mL) subcutaneous pen 40 unit (0.4 mL) subcut QHS #15 mL 05/17/23 levofloxacin 750 mg tablet 750 mg PO DAILY #3 tabs 05/17/23 losartan 100 mg tablet 100 mg PO DAILY #1 TAB 05/17/23 Hospital Course Operations ERCP Procedures EKG and - (The brain/chest x-ray/gallbladder ultrasound/CT abdomen pelvis/CT lumbar spine/HIDA scan) Summary of Care Provided Minutes Spent on Discharge: 41 Hospital Course: Mrs. Galo is an 82-year-old white female with a complicated past medical history who presented to the emergency department at [facility] late in the evening on 05/12/2023 with fevers and altered mental status. She wasreported to have a temperature of 102.9 of sudden onset that was worsening. Shehad decreased oral intake and a slight cough with chronic rhinorrhea on presentation. She had fallen off the toilet and was found between the toilet and the wall which prompted her family to bring her in for further evaluation. At baseline she lives in assisted living. She did not recall any of these events happening and was very confused on presentation. Family reported she hadan episode of nausea and vomiting about 2 weeks prior that lasted about 3 days but resolved independently and had no associated fever. Upon presentation she had a temperature of 100.1, heart rate 83, blood pressure was 169/91, respiratory rate 16 and oxygen saturations were 92% on room air. She was subsequently placed on 2 L nasal cannula which improved her saturations to 97%. Her CBC was unremarkable however she did have a left shift with an 82.1% neutrophilia. Coags were normal. Chemistry panel showed normal lites with a creatinine of 1.19 and a glucose of 169. The patient is diabetic at baseline. Her transaminases were markedly elevated with a total bilirubin of 3.2, AST of 483, ALT of 345 and an alk phos of 332. Her ammonia level is normal. Her procalcitonin was 2.29. Her lactic acid was within normal limits at 1.4. Chestx-ray showed no acute cardiopulmonary processes. Right upper quadrant ultrasound was performed which showed history of cholecystectomy and possible mild intrahepatic biliary duct dilation. COVID testing is negative. Blood and urine cultures were obtained the emergency department and she was placed on Zosyn and vancomycin was added. She complained of some abdominal pain so we geta CT of the abdomen pelvis with IV and p.o. contrast which showed sigmoid diverticulosis, fatty infiltration of liver, dilated intrahepatic biliary ducts more prominent in the left lobe and atelectasis of the left lobe of the liver aswell as coronary artery calcification. I discussed these findings with gastroenterology and they took her for an ERCP on 05/13/2023. She was found to have choledocholithiasis and complete removal was accomplished via biliary sphincterotomy and balloon extraction. The biliary tree was swept and the middle third of the main bile duct was dilated and stented. Her liver enzymes dramatically improved throughout the rest of her hospital course and had just about normalized at the time of discharge. Post ERCP imaging showed progressiveextraluminal contrast and HIDA scan was recommended to assess for bile leak. HIDA scan was performed and was found to be normal. We will restart her Eliquiswhich she tolerated well. Postprocedure she required some supplemental oxygen but had been weaned to room air at the time of discharge. She was maintained onZosyn throughout her hospital course and will be discharged on Levaquin to complete a total of a 7-day course of antibiotics. She was evaluated by physical and Occupational Therapy and they felt that she would benefit from ongoingphysical and occupational therapy prior to returning to her assisted living facility. She was excepted at the transitional care unit and we obtained pre-CERT on 05/17/2023. Her blood pressure was fairly elevated throughout her hospital stay and we increased her low from 25 mg daily to 100 mg daily and added Norvasc 10 mg daily. Her blood pressure has improved and is closer to goal range but she will need to have continued blood pressure monitoring and possible medication titration. She will need follow-up with Dr. Orr in the next 4 to 8 weeks and with her primary care physician within the next 1 month preferably 1 to 2 weeks after discharge from TCU. Discharge diagnoses: Acute cholangitis Obstructive choledocholithiasis Transaminitis/hyperbilirubinemia-resolved Debility CKD stage II Fall MARIVEL Hypertension Hyperlipidemia CAD PAF DM-2 Allergic rhinitis History of DVT/PE History of stroke Anxiety Depression GERD Restless leg syndrome Neuropathy Psoriasis Overactive bladder Physical Exam Narrative P Const alert, oriented x3, no apparent distress and well nourished; Negative for average body habitus Constitutional Narrative: Obese, elderly, white female, sitting up in bed, watching television, appears comfortable and nontoxic, resting comfortably but awakens easily General Appearance: cooperative, comfortable, well kempt and well developed Orientation / Consciousness: awake, oriented to person, oriented to place and oriented to time Exam Limitations: no limitations Nutritional Appearance: obese HEENT normocephalic, head/scalp atraumatic and moist oral mucous membranes HEENT Narrative: Mild hearing loss, Mallampati is 3, no thrush Eyes PERRL, EOMs intact bilaterally and conjunctivae normal Eyes Narrative: No scleral icterus Neck no lymphadenopathy and supple Neck Narrative: Trachea midline, no thyroid enlargement Resp normal respiratory effort, no retractions, no use of accessory muscles and clearto auscultation bilaterally Auscultation: Negative for rales, rhonchi or wheezes Cardio regular rate, regular rhythm, S1 normal heart sound, S2 normal heart sound, no murmurs, no rub, no gallops and no clicks GI normal to inspection, nondistended, normoactive bowel sounds, soft to palpation and non-tender Extremity no clubbing, cyanosis or edema Extremity Narrative: Pulses are 2+ Skin no rashes or lesions noted, no wounds, skin turgor normal and no jaundice Neuro oriented x3, CN's II-XII intact bilaterally, moves all extremities and no focal motor deficits Neuro Narrative: Generalized weakness proximal greater than distal Speech: speech normal Psych affect normal Psych Narrative: Eye contact is good, interaction is normal, patient is pleasant Weight / BMI Weight Weight: 89.6 kg Body Mass Index (BMI) 36.3 ABG / Lab / Microbiology Data 05/16/23 06:39 05/17/23 06:30 Laboratory: Laboratory Results - last 24 hr 05/16/23 17:38: POC Glucose 149 H 05/16/23 22:51: POC Glucose 240 H 05/17/23 06:30: Sodium 143, Potassium 3.2 L, Chloride 110 H, Carbon Dioxide 26.0, Anion Gap 7, BUN 11, Creatinine 1.15 H, Estim Creat Clear Calc 30.86, Est GFR (MDRD) Af Amer 58 L, Est GFR (MDRD) Non-Af 48 L, BUN/Creatinine Ratio 9.6 L,Glucose 129 H, Calcium 9.4, Total Bilirubin 0.70, AST 27, ALT 77 H, Alkaline Phosphatase 154 H, Total Protein 6.9, Albumin 2.5 L, Globulin 4.4 H, Albumin/Globulin Ratio 0.6 L 05/17/23 07:11: POC Glucose 113 H 05/17/23 12:26: POC Glucose 285 H Microbiology: Microbiology 05/12/23 21:40 Blood Culture (Wb) - Anticubital Left Blood Culture - Preliminary No growth in 48 hours. 05/12/23 21:20 Blood Culture (Wb) - Anticubital Right Blood Culture - Preliminary No growth in 48 hours. 05/12/23 21:30 Urine Catheter - Catheter Urine Culture - Final Culture exhibits no growth. 05/13/23 02:15 Mucosa - Nasopharyngeal Coronavirus COVID-19 PCR - Final D/C Instructions Please Follow Up With: FriendDoe, DO Meaningful Use Info Meaningful Use Diagnoses (Choose all that apply): None applicable Discharge Plan Admission Admit Date/Time: 05/13/23 01:24 Primary Reason for Your Visit: Fever/nausea/vomiting/confusion Attending Provider: Alee Yao Primary Care Provider: Rosalind Rubalcava Consulting Providers: Octavia Gruber Discharge Orders/Prescriptions Prescriptions: New insulin glargine-yfgn 100 unit/mL (3 mL) Insulin Pen 40 unit subcut QHS Qty: 15 0RF amlodipine 5 mg Tablet 5 mg PO DAILY Qty: 0 0RF losartan 100 mg Tablet 100 mg PO DAILY Qty: 1 0RF levofloxacin 750 mg tablet 750 mg PO DAILY Qty: 3 0RF Continued aspirin 81 mg tablet,delayed release (DR/EC) 81 mg PO QDAY alprazolam 0.5 mg tablet 0.5 mg PO 4X/DAY montelukast 10 mg tablet 10 mg PO DAILY hydrocodone-acetaminophen [[place]] 5-325 mg tablet 1 tab PO Q12H PRN (Reason: Pain 1-10 Or Fever) nitroglycerin [Nitrostat] 0.4 mg tablet, sublingual 0.4 mg sublingual Q5-15M PRN (Reason: chest pain) Qty: 25 3RF Rx Instructions: do not exceed 3 doses per episode topiramate 100 mg tablet 50 mg PO BID cholecalciferol (vitamin D3) 125 mcg (5,000 unit) capsule 125 mcg PO DAILY escitalopram oxalate [Lexapro] 10 mg tablet 10 mg PO DAILY (DME) BP cuff See Rx Instructions .Route .MEDSUPPLY Qty: 1 0RF Rx Instructions: As directed trazodone 150 mg tablet 300 mg PO QHS ropinirole 1 mg tablet 2 mg PO BID acetaminophen [Tylenol Extra Strength] 500 mg tablet 1,000 mg PO Q4H PRN (Reason: pain) Eliquis 5 mg tablet 5 mg PO DAILY furosemide 20 mg tablet 20 mg PO DAILY tizanidine 4 mg capsule 4 mg PO Q8H metoprolol succinate 50 mg tablet extended release 24 hr 25 mg PO DAILY loperamide [Anti-Diarrheal (loperamide)] 2 mg capsule 4 mg PO Q2H PRN (Reason: diarrhea) Rx Instructions: after first loose stool, 1 tablet after each subsequent loose stool but no more than 4 tablets in 24 hours atorvastatin 40 mg tablet 40 mg PO QDAY Qty: 30 6RF Discontinued insulin degludec 200 unit/mL (3 mL) insulin pen 40 unit SC QHS Gemtesa 75 mg tablet 75 mg PO DAILY fesoterodine 4 mg tablet extended release 24 hr 4 mg PO DAILY losartan 25 mg tablet 25 mg PO DAILY Qty: 30 11RF Tremfya 100 mg/mL auto-injector 100 mg subcut .[id number] Referrals / Follow Up: Doe Orr DO [Med Staff - Active Staff] - See Referral Note (1-2 mos) Rosalind Rubalcava MD [Primary Care Provider] - Within 1 Month Disposition Disposition (needs filled in before D/C Order can be placed): [facility] Facility Charges/Coding Visit Charges Inpatient E&M: 47525 SNF Disch >30 Min 05/17/23 1623 <Electronically signed by Alee Yao DO> Cosigner Signature (if applicable): CC: Dr. Alee Yao DO; Dr. Rosalind Rubalcava MD; Doe Orr DO~ Signed [facility] Work Phone: 1(594) 760-403908-15-2023 Discharge summary Author Alee Yao [facility] May 17, 2023 2:43pm Note Date/Time May 17, 2023 2: 43pm [facility] Medical Records Department [address] [place] [id number] Transfer to [facility] MR#: [id number] Acct: [id number] Name: LUIZA GALO Rep #:[id number] : 1940 82 From: Alee Yao DO PCP: Dr. Rosalind Rubalcava MD Status:ADM IN Certification of patient admission REQUIRED AT TIME OF ADMISSION. I CERTIFY THAT POST-HOSPITAL ECF SERVICES ARE REQUIRED TO BE GIVEN ON AN IN-PATIENT BASIS BECAUSE OF THE ABOVE NAMED PATIENT'S NEED FOR CARE HOME CARE ON A CONTINUING BASIS FOR THE CONDITION(S) FOR WHICH HE/SHE WAS RECEIVING IN-PATIENT HOSPITAL SERVICES PRIOR TO HIS/HER TRANSFER TO THE ECF. 05/17/23 1443<Electronically signed by Alee Yao DO> Diet Diet Order/Speech Therapy: 05/16/23 09:03 Diet: Cardiac: Calorie-Controlled Is pt able to select menu?: Yes Diet Comments: after CT How many daily calories?: 1800 calorie Routine Orders/Code Status Suppository Frequency: Daily PRN O2 Frequency: PRN Keep PO Greater than or Equal to (%): 92 Routine Lab Work: CBC (5 days) and - (CMP in 5 days) Code Status: DNRCC-A (no ETT) Wound(s) lower abd: Wound Type: Laceration Suggestions for Active Care Change Position every (hours): 2 Hours to sit in a chair: 2 Times a day to sit in chair: 3 Therapies Physical Therapy: Eval and Treat Occupational Therapy: Eval and Treat Problem/Diagnosis (1) Fever: Status: Acute Code(s): R50.9 - Fever, unspecified (2) Jaundice: Status: Acute Code(s): R17 - Unspecified jaundice (3) Acute encephalopathy: Status: Acute Code(s): G93.40 - Encephalopathy, unspecified (4) Transaminitis: Status: Acute Code(s): R74.01 - Elevation of levels of liver transaminase levels (5) Elevated serum creatinine: Status: Acute Code(s): R79.89 - Other specified abnormal findings of blood chemistry (6) Immunosuppression due to drug therapy: Status: Acute Code(s): D84.821 - Immunodeficiency due to drugs; Z79.899 - Other long term acute care registered nurse (current) drug therapy (7) Hypotension: Status: Acute Code(s): I95.9 - Hypotension, unspecified Allergies/Procedures Done in Hospital Allergies insulin isophane (NPH) Allergy (Severe, Verified 05/12/23 20:52) heart burn Anesthetics - Amide Type - Select A Allergy (Verified 05/12/23 20:52) NEEDS FOLLOW-UP Anesthetics - Tyra Type- Parabens Allergy (Verified 05/12/23 20:52) NEEDS FOLLOW-UP latex Allergy (Verified 05/12/23 20:52) Unknown only allergic when already sick promethazine [From Phenergan] Allergy (Verified 05/12/23 20:52) PT UNSURE OF REACTION sitagliptin phosphate [From Januvia] Allergy (Verified 05/12/23 20:52) Unknown insulin degludec [From Xultophy 100/3.6] Adverse Reaction (Mild, Verified 05/12/23 20:52) Nausea liraglutide [From Xultophy 100/3.6] Adverse Reaction (Mild, Verified 04/20/23 14:41) Nausea atorvastatin [From Lipitor] Adverse Reaction (Unknown, Verified 05/12/23 20:52) Unknown codeine Adverse Reaction (Unknown, Verified 05/12/23 20:52) Unknown tizanidine Adverse Reaction (Unknown, Verified 05/12/23 20:52) Unknown Procedures: - (CT Brain/GB US/CT abd and pelvis/Lumbar spine CT/ERCP/HIDA scan) Type of Care/Length of Stay Estimated LOS: Convalescent Care Less Than 30 days Type of Care Needed: Skilled Rehab Potential: Fair Prognosis: Good Additional Orders/Day of Discharge Day of Discharge: 05/17/23 Follow Up Care Please follow up with your Primary Care Physician in: 4 weeks Please Follow Up With: Doe Orr DO When: 6-8 weeks Discharge Plan Admission Admit Date/Time: 05/13/23 01:24 Attending Provider: Alee Yao Primary Care Provider: Rosalind Rubalcava Consulting Providers: Octavia Gruber Discharge Orders/Prescriptions Prescriptions: No Action aspirin 81 mg tablet,delayed release (DR/EC) 81 mg PO QDAY alprazolam 0.5 mg tablet 0.5 mg PO 4X/DAY montelukast 10 mg tablet 10 mg PO DAILY hydrocodone-acetaminophen [[place]] 5-325 mg tablet 1 tab PO Q12H PRN (Reason: Pain 1-10 Or Fever) insulin degludec 200 unit/mL (3 mL) insulin pen 40 unit SC QHS nitroglycerin [Nitrostat] 0.4 mg tablet, sublingual 0.4 mg sublingual Q5-15M PRN (Reason: chest pain) Qty: 25 3RF Rx Instructions: do not exceed 3 doses per episode topiramate 100 mg tablet 50 mg PO BID cholecalciferol (vitamin D3) 125 mcg (5,000 unit) capsule 125 mcg PO DAILY escitalopram oxalate [Lexapro] 10 mg tablet 10 mg PO DAILY (DME) BP cuff See Rx Instructions .Route .MEDSUPPLY Qty: 1 0RF Rx Instructions: As directed trazodone 150 mg tablet 300 mg PO QHS ropinirole 1 mg tablet 2 mg PO BID acetaminophen [Tylenol Extra Strength] 500 mg tablet 1,000 mg PO Q4H PRN (Reason: pain) Eliquis 5 mg tablet 5 mg PO DAILY Gemtesa 75 mg tablet 75 mg PO DAILY fesoterodine 4 mg tablet extended release 24 hr 4 mg PO DAILY losartan 25 mg tablet 25 mg PO DAILY Qty: 30 11RF furosemide 20 mg tablet 20 mg PO DAILY tizanidine 4 mg capsule 4 mg PO Q8H Tremfya 100 mg/mL auto-injector 100 mg subcut .k0nsuiv metoprolol succinate 50 mg tablet extended release 24 hr 25 mg PO DAILY loperamide [Anti-Diarrheal (loperamide)] 2 mg capsule 4 mg PO Q2H PRN (Reason: diarrhea) Rx Instructions: after first loose stool, 1 tablet after each subsequent loose stool but no more than 4 tablets in 24 hours atorvastatin 40 mg tablet 40 mg PO QDAY Qty: 30 6RF Referrals / Follow Up: Doe Orr DO [Med Staff - Active Staff] - See Referral Note (1-2 mos) Rosalind Rubalcava MD [Primary Care Provider] - Within 1 Month (1) Fever Qualifiers: Fever type: unspecified Qualified Code(s): R50.9 - Fever, unspecified 05/17/23 1443 <Electronically signed by Alee Yao DO> Cosigner Signature (if applicable): CC: Dr. Octavia Gruber MD; Dr. Roaslind Rubalcava MD ~ [facility] Work Phone: [phone]) 385-555608-14-2023 Progress note Author Alee Yao [facility] [place] 14th, 2023 3:31pm Note Date/Time May 16, 2023 3: 20pm [facility] Medical Records Department [address] [place] [address] Progress Note - Hospitalist 05/16/23 151 MR#: [id number] Acct: [id number] Name: LUIZA GALO Rep #:[id number] : 1940 82 From: Alee Yao DO PCP: Dr. Rosalind Rubalcava MD Status:ADM IN Location: MS3 [id number] Reason for Visit Reason for Visit: Fever/nausea/vomiting/confusion Subjective Subjective No specific issues overnight. Patient has not yet been eating much, unhappy with food choices here. States she is not all that hungry and cannot find anything she likes. I encouraged her strongly to increase her oral intake and fluid intake. Objective Data Objective Data Vital Signs: Vital Signs Temp Pulse Resp BP Pulse Ox O2 Del Method O2 Flow Rate 97.9 F 68 16 145/82 H 98 Room Air 1.5 05/16/23 09:20 05/16/23 10:12 05/16/23 09:20 05/16/23 09:20 05/16/23 09:20 05/16/23 10:06 05/15/23 09:05 Oxygen Flow Rate (L/min) 1.5 Oxygen Delivery Method Room Air Weight: 89.6 kg Body Mass Index (BMI) 36.3 Intake & Output: Intake and Output for Last 24 Hours 05/14/23 05/15/23 05/16/23 23:59 23:59 23:59 Intake Total 1970 / 1970 1390 / 1390 660 / 660 Output Total 1750 / 1750 1900 / 1900 800 / 800 Balance 220 / 220 -510 / -510 -140 / -140 Lab / Micro Data 05/16/23 06:39 05/16/23 06:39 Labs: Laboratory Results - last 24 hr 05/15/23 16:21: POC Glucose 212 H 05/15/23 22:19: POC Glucose 142 H 05/16/23 05:50: POC Glucose 70 L 05/16/23 06:31: POC Glucose 133 H 05/16/23 06:39: WBC 5.3, RBC 4.45, Hgb 13.2, Hct 42.2, MCV 94.8, MCH 29.7, MCHC 31.3 L, RDW Std Deviation 43.3, RDW Coeff of Sky 12.3, Plt Count 227, MPV 10.7, Immature Gran % (Auto) 0.200, Neut % (Auto) 51.4, Lymph % (Auto) 39.1, [place] % (Auto) 5.8, Eos % (Auto) 2.6, Baso % (Auto) 0.9, Absolute Neuts (auto) 2.7, Absolute Lymphs (auto) 2.07, Nucleated RBC % 0, Sodium 143, Potassium 3.6, Chloride 109 H, Carbon Dioxide 26.0, Anion Gap 8, BUN 7, Creatinine 1.11 H, Estim Creat Clear Calc 31.97, Est GFR (MDRD) Af Amer 61, Est GFR (MDRD) Non-Af 50 L, BUN/Creatinine Ratio 6.3 L, Glucose 130 H, Calcium 9.7, Total Bilirubin 0.90, AST 50 H, ALT 108 H, Alkaline Phosphatase 181 H, Total Protein 7.3, Albumin 2.5 L, Globulin 4.8 H, Albumin/Globulin Ratio 0.5 L 05/16/23 11:55: POC Glucose 197 H Micro: Microbiology 05/12/23 21:40 Blood Culture (Wb) - Anticubital Left Blood Culture - Preliminary No growth in 48 hours. 05/12/23 21:20 Blood Culture (Wb) - Anticubital Right Blood Culture - Preliminary No growth in 48 hours. 05/12/23 21:30 Urine Catheter - Catheter Urine Culture - Final Culture exhibits no growth. 05/13/23 02:15 Mucosa - Nasopharyngeal Coronavirus COVID-19 PCR - Final Physical Exam Const alert, oriented x3, no apparent distress and well nourished Constitutional Narrative: Obese, elderly, white female, sitting up in bed, appears comfortable and nontoxic, resting comfortably but awakens easily HEENT head/scalp atraumatic and moist oral mucous membranes HEENT Narrative: Mallampati 3, no thrush Head and Scalp: normocephalic Resp normal respiratory effort, no retractions, no use of accessory muscles and clearto auscultation bilaterally Resp Narrative: Basilar crackles have resolved Auscultation: Negative for rales, rhonchi or wheezes Cardio regular rate, regular rhythm, S1 normal heart sound, S2 normal heart sound, no murmurs, no rub, no gallops and no clicks GI normal to inspection, nondistended, normoactive bowel sounds, soft to palpation and non-tender Extremity no clubbing, cyanosis or edema Extremity Narrative: Pulses are 2+ Neuro oriented x3, moves all extremities and no focal motor deficits Neuro Narrative: Generalized weakness proximal greater than distal Speech: speech normal Psych affect normal Psych Narrative: Eye contact is good, interaction is normal, patient is pleasant Assessment & Plan Assessment/Plan (1) Fever: QUALIFIERS: Fever type: unspecified Qualified Code(s): R50.9 - Fever, unspecified (2) Jaundice: (3) Acute encephalopathy: (4) Transaminitis: (5) Elevated serum creatinine: (6) Immunosuppression due to drug therapy: (7) Hypotension: PLAN: Plan Acute cholangitis -Postop day 3 status post ERCP with noted choledocholithiasis -Cholangiogram thought to display bile leak however HIDA scan was negative -Procalcitonin elevated at 2.2 on admission -Blood cultures are with no growth to date -Will need a total of 7 days antibiotics to complete antibiotic course for cholangitis -Continue Zosyn day 4 of 7 for antibiotics -Continue regular diet Transaminitis/jaundice secondary to acute choledocholithiasis -Transaminases are markedly improved and have almost normalized at this point -Bilirubin has normalized -We will repeat in a.m. CKD stage II -Current serum creatinine is 0.98 and serum creatinine elevation has normalized -Baseline serum creatinine between 0.8 and 1.0 -Slight bump in creatinine today to 1.11 however I suspect p.o. intake has been poor and I encouraged this to increase -We will continue diuresis for now and repeat BMP in a.m. Fall -Likely related to acute illness -PT/OT following--> will need placement at discharge -Referral to TCU and excepting this is pending on participation in therapy today -PRECERT will be needed prior to discharge MARIVEL -Patient is untreated due to her resistance to CPAP -Continue nocturnal oxygen as needed to keep sats greater than 88% CAD/HTN/HPL -CABG-->JAY to LAD, SVG to OM2 and sequentially to diagonal, SVG to PDA 06/01/17 -Continue aspirin -Continue home statin -Continue home metoprolol -Continue home Lasix -Blood pressures have been elevated despite home treatment and patient admits that they have been elevated at home I did increase her losartan yesterday afternoon from 25 to 75 mg and she still has been really elevated so will increase to 100 mg and continue her home metoprolol as is -This was added this morning blood pressure still higher than I would like tosee them but improved overall heart rates are on the lower side so unable to increase metoprolol and will add Norvasc 5 mg PAF -Remains in NSR -Continue home beta-tawana -Continue home apixaban DM-2 -Continue home Lantus at 40 units nightly -A.m. fasting sugar was 130 -SSI as ordered -Accu-Cheks -Hemoglobin A1c is 7.0 Allergic rhinitis -Continue home Singulair History of DVT/PE -Continue apixaban History of stroke -Continue home aspirin -CT head shows small old infarct in the right frontal lobe that is stable -Continue apixaban -Continue home statin GERD -Transition to p.o. PPI Anxiety/depression -Continue home Xanax will restart to avoid withdrawal as she takes this regularly -Continue home Lexapro -Continue home trazodone Restless leg syndrome -Continue Requip Neuropathy -Continue Topamax Psoriasis -Patient is no longer taking Tremfya Overactive bladder -Restart Gemseta DVT prophylaxis -Continue apixaban 5 mg p.o. twice daily CODE STATUS -DNR CCA with no intubation Disposition: -Patient is medically stable for discharge -Will need therapy and placement with TCU being the plan at this time -Awaiting acceptance and pre-CERT from insurance Charges/Coding Visit Charges Inpatient E&M: 22153 Subs Hosp L2 05/16/23 1531 <Electronically signed by Alee Yao DO> Cosigner Signature (if applicable): CC: ~ Signed [facility] Work Phone: 1(245) 598-764508-13-2023 Progress note Author Alee Yao [facility] May 15, 2023 1:25pm Note Date/Time May 15, 2023 1: 25pm [facility] Medical Records Department [address] [place] [address] Progress Note - Hospitalist 05/15/23 1316 MR#: [id number] Acct: [id number] Name: RICKYLUIZA L Rep #:[id number] : 1940 82 From: Alee Yao DO PCP: Dr. Rosalind Rubalcava MD Status:ADM IN Location: MS3 [id number] Reason for Visit Reason for Visit: Fever/nausea/vomiting/confusion Subjective Subjective Patient denies any issues overnight however her blood pressure was elevated she got 2 as needed doses of hydralazine. She reports she has been running high at home. I will go ahead and restart her Cozaar and see where she runs and make titrations from there. She denies any nausea or vomiting. She does, however, states she is not hungry currently. Her son who is a surgeon and daughter are at the bedside and are pleased that she will be going to TCU at discharge as they feel she can do some rehab prior to returning home. They are pleased with her progress thus far. Objective Data Objective Data Vital Signs: Vital Signs Temp Pulse Resp BP Pulse Ox O2 Del Method O2 Flow Rate 97.8 F 52 L 20 H 110/34 L 94 Room Air 1.5 05/15/23 08:39 05/15/23 11:40 05/15/23 08:39 05/15/23 11:40 05/15/23 10:43 05/15/23 10:43 05/15/23 09:05 Oxygen Flow Rate (L/min) 1.5 Oxygen Delivery Method Room Air Weight: 89.5 kg Body Mass Index (BMI) 36.3 Intake & Output: Intake and Output for Last 24 Hours 05/13/23 05/14/23 05/15/23 23:59 23:59 23:59 Intake Total 8609 / 8809 1969 / 1969 330 / 330 Output Total 900 / 900 1750 / 1750 600 / 600 Balance 7709 / 7909 220 / 220 -270 / -270 Lab / Micro Data 05/14/23 05:16 05/15/23 05:14 Labs: Laboratory Results - last 24 hr 05/14/23 11:50: MRSA (PCR) Negative 05/14/23 14:22: POC Glucose 175 H 05/14/23 16:42: POC Glucose 208 H 05/14/23 21:41: POC Glucose 139 H 05/15/23 04:47: POC Glucose 108 H 05/15/23 05:14: Sodium 143, Potassium 3.9, Chloride 113 H, Carbon Dioxide 26.0, Anion Gap 4 L, BUN 8, Creatinine 0.96, Estim Creat Clear Calc 36.97, Est GFR (MDRD) Af Amer 72, Est GFR (MDRD) Non-Af 59 L, BUN/Creatinine Ratio 8.3 L, Glucose 113 H, Calcium 9.1, Total Bilirubin 1.00, AST 88 H, ALT 143 H, Alkaline Phosphatase 189 H, Total Protein 6.6, Albumin 2.5 L, Globulin 4.1, Albumin/Globulin Ratio 0.6 L 05/15/23 11:57: POC Glucose 219 H Micro: Microbiology 05/12/23 21:40 Blood Culture (Wb) - Anticubital Left Blood Culture - Preliminary No growth in 48 hours. 05/12/23 21:20 Blood Culture (Wb) - Anticubital Right Blood Culture - Preliminary No growth in 48 hours. 05/12/23 21:30 Urine Catheter - Catheter Urine Culture - Final Culture exhibits no growth. 05/13/23 02:15 Mucosa - Nasopharyngeal Coronavirus COVID-19 PCR - Final Radiography Diagnostic Testing: Radiology Impression Hepatobiliary Scan Nuclear Medicine 05/14/23 08:53 IMPRESSION: Negative hepatobiliary scan after cholecystectomy without evidence of bile leak.. Electronically Signed: Julio C Gerber MD at 13:56 EDT , Physical Exam Const alert, oriented x3, no apparent distress and well nourished Constitutional Narrative: Obese, elderly, white female, sitting up in bed, appears comfortable and nontoxic, nursing at bedside HEENT head/scalp atraumatic and moist oral mucous membranes HEENT Narrative: Mallampati is 2-3, no thrush Head and Scalp: normocephalic Resp normal respiratory effort, no retractions, no use of accessory muscles and clearto auscultation bilaterally Resp Narrative: Remains slightly diminished at bases bilaterally with few inspiratory crackles that improved with deep breathing that is repetitive Auscultation: rales; Negative for rhonchi or wheezes Cardio regular rate, regular rhythm, S1 normal heart sound, S2 normal heart sound, no murmurs, no rub, no gallops and no clicks GI normal to inspection, nondistended, normoactive bowel sounds, soft to palpation and non-tender Extremity no clubbing, cyanosis or edema Extremity Narrative: Pulses are 2+ Neuro oriented x3, moves all extremities and no focal motor deficits Neuro Narrative: Generalized weakness noted but no focal deficits Speech: speech normal Psych affect normal Psych Narrative: Eye contact is good, interaction is normal, patient is pleasant Assessment & Plan Assessment/Plan (1) Fever: QUALIFIERS: Fever type: unspecified Qualified Code(s): R50.9 - Fever, unspecified (2) Jaundice: (3) Acute encephalopathy: (4) Transaminitis: (5) Elevated serum creatinine: (6) Immunosuppression due to drug therapy: (7) Hypotension: PLAN: Plan Acute cholangitis -Postop day 2 status post ERCP with noted choledocholithiasis -Cholangiogram thought to display bile leak however HIDA scan was negative -Procalcitonin elevated at 2.2 on admission -Blood cultures are with no growth to date -Will need a total of 7 days antibiotics to complete antibiotic course for cholangitis -Continue Zosyn day 3 of 7 for antibiotics -Continue regular diet Transaminitis/jaundice secondary to acute choledocholithiasis -Transaminases are markedly improved -Bilirubin has normalized -We will repeat in a.m. CKD stage II -Current serum creatinine is 0.98 and serum creatinine elevation has normalized -Baseline appears to be between 0.8 and 1.0 therefore does not meet criteria forAKI at this time however close -Okay to restart home diuresis Fall -Likely related to acute illness - PT/OT following--> will need placement at discharge -Referral to TCU and if excepted pre-CERT will need to be obtained prior to discharge MARIVEL -Patient is untreated due to her resistance to CPAP -Continue nocturnal oxygen as needed to keep sats greater than 88% CAD/HTN/HPL -CABG-->JAY to LAD, SVG to OM2 and sequetially to diagonal, SVG to PDA 06/01/17 -Continue aspirin -Continue home statin -Continue home metoprolol -Continue home Lasix -Continue home losartan -Per patient and family blood pressure has been quite high at home we will monitor now that we have her back on her home regimen and hold as needed hydralazine for now -If patient has elevated pressures I would prefer she not receive an IV as needed and we increase her metoprolol or losartan PAF -Remains in NSR -Continue home beta-tawana -Restart home apixaban DM-2 -Continue home Lantus at 40 units nightly -SSI as ordered -Accu-Cheks -Hemoglobin A1c is 7.0 Allergic rhinitis -Continue home Singulair History of DVT/PE -Restart home with [place] History of stroke -Continue home aspirin -CT head shows small old infarct in the right frontal lobe that is stable -Restart home apixaban -Restart home statin GERD -Transition to p.o. PPI Anxiety/depression -Continue home Xanax will restart to avoid withdrawal as she takes this regularly -Continue home Lexapro -Continue home trazodone Restless leg syndrome -Continue Requip Neuropathy -Continue Topamax Psoriasis -Hold home Tremfya with acute infection and will restart at discharge DVT prophylaxis -Restart home apixaban and discontinue Lovenox CODE STATUS -DNR CCA with no intubation Disposition: -Patient is medically stable for discharge -Will need therapy and placement with TCU being the plan at this time -Awaiting acceptance and pre-CERT from insurance Charges/Coding Visit Charges Inpatient E&M: 39548 Subs Hosp L2 05/15/23 1325 <Electronically signed by Alee Yao DO> Cosigner Signature (if applicable): CC: ~ Signed [facility] Work Phone: 1(191) 554-256608-12-2023 Progress note Author Alee Yao [facility] May 14, 2023 12:25pm Note Date/Time May 14, 2023 12 :25pm [facility] Medical Records Department [address] [place] [id number] Progress Note - Hospitalist 05/14/23 1215 MR#: [id number] Acct: [id number] Name: LUIZA GALO Rep #:[id number] : 1940 82 From: Alee Yao DO PCP: Dr. Rosalind Rubalcava MD Status:ADM IN Location: MS3 [id number] Reason for Visit Reason for Visit: Fever/nausea/vomiting/confusion Subjective Subjective Patient states she is feeling much better today. She states she feels like she has little bit more energy today. It is unclear at this time whether she will need to be placed or she will be able to go back to assisted living. I discussed with her the need for ongoing physical therapy evaluation to delineatethis. If she can go back home she may be able to go tomorrow if not she will need to wait probably till Tuesday at least so we can obtain a precertification for her to go to a facility. She had no further nausea and vomiting, abdominal pain is improved, her fever has resolved as has her confusion. Objective Data Objective Data Vital Signs: Vital Signs Temp Pulse Resp BP Pulse Ox O2 Del Method O2 Flow Rate 98.7 F 60 18 176/60 H 95 Nasal Cannula 0.5 05/14/23 10:15 05/14/23 10:15 05/14/23 10:15 05/14/23 10:15 05/14/23 10:15 05/14/23 10:15 05/14/23 10:15 Oxygen Flow Rate (L/min) 0.5 Oxygen Delivery Method Nasal Cannula Weight: 88 kg Body Mass Index (BMI) 35.6 Intake & Output: Intake and Output for Last 24 Hours 05/12/23 05/13/23 05/14/23 23:59 23:59 23:59 Intake Total 8609 / 8809 560 / 560 Output Total 900 / 900 600 / 600 Balance 7709 / 7909 -40 / -40 Lab / Micro Data 05/14/23 05:16 05/14/23 05:16 Labs: Laboratory Results - last 24 hr 05/13/23 02:55: Hemoglobin A1c 7.0 H 05/13/23 05:50: Hepatitis A IgM Ab Negative, Hep Bs Antigen Negative, Hep B CoreIgM Ab Negative, Hepatitis C Ab (EIA) Non Reactive, Hep C Ab Comment Comment 05/13/23 12:42: POC Glucose 157 H 05/13/23 17:49: POC Glucose 66 L 05/13/23 18:17: POC Glucose 74 05/13/23 21:42: POC Glucose 105 05/14/23 01:20: POC Glucose 73 L 05/14/23 04:23: POC Glucose 67 L 05/14/23 05:16: WBC 6.3, RBC 4.03 L, Hgb 12.0, Hct 39.2, MCV 97.3, MCH 29.8, MCHC 30.6 L, RDW Std Deviation 45.0 H, RDW Coeff of Sky 12.5, Plt Count 206, MPV10.6, Immature Gran % (Auto) 0.600, Neut % (Auto) 70.2 H, Lymph % (Auto) 21.9, [place] % (Auto) 5.7, Eos % (Auto) 1.3, Baso % (Auto) 0.3, Absolute Neuts (auto) 4.4, Absolute Lymphs (auto) 1.37, Nucleated RBC % 0, Sodium 145, Potassium 3.9, Chloride 114 H, Carbon Dioxide 26.0, Anion Gap 5, BUN 10, Creatinine 0.98, EstimCreat Clear Calc 36.21, Est GFR (MDRD) Af Amer 70, Est GFR (MDRD) Non-Af 58 L, BUN/Creatinine Ratio 10.2, Glucose 116 H, Calcium 8.3 L, Phosphorus 3.0, Magnesium 2.0, Total Bilirubin 1.70 H, AST 174 H, ALT 190 H, Alkaline Phosphatase 199 H, Total Protein 6.2 L, Albumin 2.4 L, Globulin 3.8, Albumin/Globulin Ratio 0.6 L, POC Glucose 124 H Micro: Microbiology 05/12/23 21:30 Urine Catheter - Catheter Urine Culture - Preliminary Culture exhibits no growth. 05/13/23 02:15 Mucosa - Nasopharyngeal Coronavirus COVID-19 PCR - Final Radiography Diagnostic Testing: Radiology Impression Abdomen/Pelvis CT 05/13/23 08:52 IMPRESSION: Sigmoid diverticulosis. Fatty infiltration of the liver. Dilated intrahepatic biliary clips more prominent in the left lobe. Atelectasis in the left lobe of liver. A repeat sonogram of the liver is recommended for evaluation. Coronary calcification. Electronically Signed: Florencio Robert MD at 12:10 EDT , Lumbar Spine CT 05/13/23 12:30 IMPRESSION: Multilevel degenerative changes, as described above. Electronically Signed: Florencio Robert MD at 13:30 EDT , ERCP X-Ray 05/13/23 16:55 IMPRESSION: Fluoroscopic assistance for ERCP. Progressive extraluminal contrast appears to collect along the inferior margin of the liver and along bowel. Nuclear medicine hepatobiliary scan may be beneficial to assess for bile leak. Please see operative report for additional information. Radiation dose as above. Electronically Signed: Timothy Lowe MD at 6:59 EDT , ADDENDUM: 05/14/23 0710 IMPRESSION: Fluoroscopic assistance for ERCP. Progressive extraluminal contrast appears to collect along the inferior margin of the liver and along bowel. Nuclear medicine hepatobiliary scan may be beneficial to assess for bile leak. Please see operative report for additional information. Radiation dose as above. N.B. : The above Results were Read Back by Timothy Lowe MD to Yocasta Cuevas RN, and understanding confirmed on 05/14/2023 07:03:41 (ET). Electronically Signed: Timothy Lowe MD at 6:59 EDT , Physical Exam Const alert, oriented x3, no apparent distress and well nourished Constitutional Narrative: Obese, elderly, white female, sitting up in bed, appears comfortable and nontoxic HEENT head/scalp atraumatic and moist oral mucous membranes HEENT Narrative: Dentition is poor, Mallampati is 3, no thrush Head and Scalp: normocephalic Resp normal respiratory effort, no retractions, no use of accessory muscles and clearto auscultation bilaterally Resp Narrative: Slightly diminished at bases bilaterally-encouraged incentive spirometry Auscultation: Negative for rales, rhonchi or wheezes Cardio regular rate, regular rhythm, S1 normal heart sound, S2 normal heart sound, no murmurs, no rub, no gallops and no clicks GI normal to inspection, nondistended, normoactive bowel sounds, soft to palpation and non-tender Extremity no clubbing, cyanosis or edema Extremity Narrative: Pulses are 2+ Neuro oriented x3, moves all extremities and no focal motor deficits Neuro Narrative: Generalized weakness noted but no focal deficits Speech: speech normal Psych affect normal Psych Narrative: Eye contact is good, interaction is normal, patient is pleasant Assessment & Plan Assessment/Plan (1) Fever: QUALIFIERS: Fever type: unspecified Qualified Code(s): R50.9 - Fever, unspecified (2) Jaundice: (3) Acute encephalopathy: (4) Transaminitis: (5) Elevated serum creatinine: (6) Immunosuppression due to drug therapy: (7) Hypotension: PLAN: Plan Acute cholangitis -Postop day 1 status post ERCP with noted choledocholithiasis -Cholangiogram displays possible bile leak and HIDA scan is pending -Procalcitonin elevated at 2.2 -Culture with no growth -Blood cultures are pending -Will need a total of 7 days antibiotics to complete antibiotic course for cholangitis -Continue Zosyn -Discontinue vancomycin Relative hypotension -Resolved Transaminitis/jaundice secondary to acute choledocholithiasis -Transaminases are improving -Bilirubin is trending down -We will repeat in a.m. Toxic/metabolic encephalopathy -Resolved CKD stage II -Current serum creatinine is 0.98 and serum creatinine elevation has normalized -Baseline appears to be between 0.8 and 1.0 therefore does not meet criteria forAKI at this time however close -Okay to restart home diuresis Fall -Likely related to acute illness - PT/OT following--> May need placement versus home health will continue to monitor MARIVEL -Patient is untreated due to her resistance to CPAP -Continue nocturnal oxygen as needed to keep sats greater than 88% CAD/HTN/HPL -CABG-->JAY to LAD, SVG to OM2 and sequetially to diagonal, SVG to PDA 06/01/17 -Hold metoprolol and losartan for relative hypotension -Continue aspirin -Restart home statin -Restart home metoprolol -Restart home Lasix -Restart home losartan PAF -Remains in NSR -Restart home beta-tawana -We will restart apixaban once we ascertain no further invasive procedures are required DM-2 -Continue home Lantus at 40 units nightly -SSI as ordered -Accu-Cheks -Hemoglobin A1c is 7.0 Allergic rhinitis -Continue home Singulair History of DVT/PE -Start prophylactic dosing with enoxaparin while off Eliquis -Will restart Eliquis as soon as we deem no medical procedures will need to be pursued History of stroke -Continue home aspirin -CT head shows small old infarct in the right frontal lobe that is stable -Holding apixaban -Restart home statin GERD -Transition to p.o. PPI Anxiety/depression -Continue home Xanax will restart to avoid withdrawal as she takes this regularly -Continue home Lexapro -Okay to restart home trazodone Restless leg syndrome -Continue Requip Neuropathy -Continue Topamax Psoriasis -Hold home Tremfya with acute infection DVT prophylaxis -Holding apixaban -Start Lovenox prophylactically and restart apixaban when medically appropriate CODE STATUS -DNR CCA with no intubation Charges/Coding Visit Charges Inpatient E&M: 26486 Subs Hosp L2 05/14/23 1225 <Electronically signed by Alee Yao DO> Cosigner Signature (if applicable): CC: ~ Signed [facility] Work Phone: 1(169) 879-204008-12-2023 Progress note Author Doe Orr [facility] May 14, 2023 9:35am Note Date/Time May 14, 2023 9: 30am [facility] Medical Records Department [address] [place] [id number] Progress Note - GI 05/14/23 0928 MR#: [id number] Acct: [id number] Name: LUIZA GALO Rep #:[id number] : 1940 82 From: Doe Orr DO PCP: Dr. Rosalind Rubalcava MD Status:ADM IN Location: [facility] HY140-1 Subjective Subjective Patient underwent ERCP yesterday for abnormal liver function tests and fever. She had multiple large stones that were removed via ERCP along with pus like material. She had a stent placed yesterday. She has been afebrile. She deniesany abdominal pain. I talk with her daughter regarding the findings. Objective Data Objective Data Vital Signs: Vital Signs Temp Pulse Resp BP Pulse Ox O2 Del Method O2 Flow Rate 98.2 F 57 L 16 143/55 H 95 Nasal Cannula 0.5 05/14/23 05:20 05/14/23 05:20 05/14/23 05:20 05/14/23 05:20 05/14/23 05:20 05/14/23 05:20 05/14/23 05:20 Oxygen Flow Rate (L/min) 0.5 Oxygen Delivery Method Nasal Cannula Weight: 194 lb 0.108 oz Body Mass Index (BMI) 35.6 Intake & Output: Intake and Output for Last 24 Hours 05/12/23 05/13/23 05/14/23 23:59 23:59 23:59 Intake Total 8609 / 8809 450 / 450 Output Total 900 / 900 600 / 600 Balance 7709 / 7909 -150 / -150 Lab / Micro Data 05/14/23 05:16 05/14/23 05:16 Labs: Laboratory Results - last 24 hr 05/13/23 02:55: Hemoglobin A1c 7.0 H 05/13/23 05:50: Hepatitis A IgM Ab Negative, Hep Bs Antigen Negative, Hep B CoreIgM Ab Negative, Hepatitis C Ab (EIA) Non Reactive, Hep C Ab Comment Comment 05/13/23 10:05: Urine Opiates Screen POSITIVE H, Urine Methadone Screen NEGATIVE, Ur Barbiturates Screen NEGATIVE, Ur Phencyclidine Scrn NEGATIVE, Ur Amphetamines Screen NEGATIVE, MDMA (Ecstasy) Screen POSITIVE H, U Benzodiazepines Scrn POSITIVE H, Urine Cocaine Screen NEGATIVE, U Cannabinoids Screen NEGATIVE, Ur Drug Screen Comment 05/13/23 11:56: POC Glucose 68 L 05/13/23 12:42: POC Glucose 157 H 05/13/23 17:49: POC Glucose 66 L 05/13/23 18:17: POC Glucose 74 05/13/23 21:42: POC Glucose 105 05/14/23 01:20: POC Glucose 73 L 05/14/23 04:23: POC Glucose 67 L 05/14/23 05:16: WBC 6.3, RBC 4.03 L, Hgb 12.0, Hct 39.2, MCV 97.3, MCH 29.8, MCHC 30.6 L, RDW Std Deviation 45.0 H, RDW Coeff of Sky 12.5, Plt Count 206, MPV10.6, Immature Gran % (Auto) 0.600, Neut % (Auto) 70.2 H, Lymph % (Auto) 21.9, [place] % (Auto) 5.7, Eos % (Auto) 1.3, Baso % (Auto) 0.3, Absolute Neuts (auto) 4.4, Absolute Lymphs (auto) 1.37, Nucleated RBC % 0, Sodium 145, Potassium 3.9, Chloride 114 H, Carbon Dioxide 26.0, Anion Gap 5, BUN 10, Creatinine 0.98, EstimCreat Clear Calc 36.21, Est GFR (MDRD) Af Amer 70, Est GFR (MDRD) Non-Af 58 L, BUN/Creatinine Ratio 10.2, Glucose 116 H, Calcium 8.3 L, Phosphorus 3.0, Magnesium 2.0, Total Bilirubin 1.70 H, AST 174 H, ALT 190 H, Alkaline Phosphatase 199 H, Total Protein 6.2 L, Albumin 2.4 L, Globulin 3.8, Albumin/Globulin Ratio 0.6 L, POC Glucose 124 H Micro: Microbiology 05/12/23 21:30 Urine Catheter - Catheter Urine Culture - Preliminary Culture exhibits no growth. 05/13/23 02:15 Mucosa - Nasopharyngeal Coronavirus COVID-19 PCR - Final Radiography Diagnostic Testing: Radiology Impression Abdomen/Pelvis CT 05/13/23 08:52 IMPRESSION: Sigmoid diverticulosis. Fatty infiltration of the liver. Dilated intrahepatic biliary clips more prominent in the left lobe. Atelectasis in the left lobe of liver. A repeat sonogram of the liver is recommended for evaluation. Coronary calcification. Electronically Signed: Florencio Robert MD at 12:10 EDT , Lumbar Spine CT 05/13/23 12:30 IMPRESSION: Multilevel degenerative changes, as described above. Electronically Signed: Florencio Robert MD at 13:30 EDT , ERCP X-Ray 05/13/23 16:55 IMPRESSION: Fluoroscopic assistance for ERCP. Progressive extraluminal contrast appears to collect along the inferior margin of the liver and along bowel. Nuclear medicine hepatobiliary scan may be beneficial to assess for bile leak. Please see operative report for additional information. Radiation dose as above. Electronically Signed: Timothy Lowe MD at 6:59 EDT , ADDENDUM: 05/14/23 0710 IMPRESSION: Fluoroscopic assistance for ERCP. Progressive extraluminal contrast appears to collect along the inferior margin of the liver and along bowel. Nuclear medicine hepatobiliary scan may be beneficial to assess for bile leak. Please see operative report for additional information. Radiation dose as above. N.B. : The above Results were Read Back by Timothy Lowe MD to Yocasta Cuevas RN, and understanding confirmed on 05/14/2023 07:03:41 (ET). Electronically Signed: Timothy Lowe MD at 6:59 EDT , Physical Exam Narrative Physical Examination: General: Awake, intermittently alert Skin: Very mildly jaundiced color, normal turgor, no severely marked scleral icterus, no cyanosis. HEENT: AT/NC, EOMI, PERRLA, dry MM, no carotid bruits or JVD noted. Lungs: Diminished, greater bases, appropriate effort no rales, ronchi or wheezing. Heart: Currently regular rate and rhythm; no gallop, rub audible. Abdomen: Soft, no significant pain with palpation or any rebound or guarding butpatient did have recent morphine administration, no marked distention, hyperactive bowel sounds, no obvious HSM. Extremities: No cyanosis, clubbing, or edema. Neurological: Patient awake, intermittently alert, oriented as noted, cognitive function not baseline intact; pupils equally reactive to light and accommodation, cranial nerves grossly normal, moving all 4 extremities, no focal deficits,strength moderately to severely globally decreased secondary to acute presentation, fatigued and mildly lethargic. Psychiatric: Affect appears fatigued, ill-appearing, no acute evidence of depressive or anxiety feelings but does have notable underlying history. Assessment & Plan Assessment/Plan (1) Transaminitis: (2) Fever: QUALIFIERS: Fever type: unspecified Qualified Code(s): R50.9 - Fever, unspecified (3) Jaundice: PLAN: Plan 82 y/o who presents to the [facility] ED on 05/12/23 with history of onset of fever as well as altered mental status reportedly with temperature up to 102.9. Labs were consistent with obstructive jaundice. 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 She had multiple stones removed and has good drainage to the bile duct. Charcottriad is the classic picture of acute cholangitis and comprises?jaundice, abdominal pain, rigors, and pyrexia. Hypotension and confusion are often a feature of acute suppurative cholangitis in which the bile duct is filled with purulent bile under pressure (Rufino pentad). Cholangiogram displays possible bile leak. Differential diagnosis for bile leak status post ERCP with sphincterotomy would be at the sphincterotomy site. Also in the differential diagnosis would if she formed a choledochal fistula from stone disease involving the bile duct. Treatment for bile leak would be 10 [place] Citizen stent across the ampulla. She has isalready in place. We will order a HIDA scan to see if she has any radiologic evidence of bile leak. Recommend to continue antibiotic therapy for total of 7 days. Charges/Coding Visit Charges Inpatient E&M: 75275 Subs Hosp L3 05/14/23 0935 <Electronically signed by Doe Orr DO> Cosigner Signature (if applicable): CC: ~ Signed [facility] Work Phone: 1(242) 405-816908-11-2023 Consult note Author Doe Orr [facility] May 13, 2023 4:32pm Note Date/Time May 13, 2023 4: 26pm [facility] Medical Records Department [address] [place] [address] Consultation - GI 05/13/23 0724 MR#: [id number] Acct: [id number] Name: LUIZA GALO Rep #:[id number] : 1940 82 From: Doe Orr DO PCP: Dr. Rosalind Rubalcava MD Status:ADM IN Location: [place] [address]-1 HPI Consult Data Date of Consult: 05/12/23 HPI Narrative Reason for Consultation: Jaundice and fever HPI Narrative: LUIZA GALO, is a 82 F who presents with altered mental status and document temperature 102.9. She has had decreased p.o. intake. Decreased awareness and orientation from normal per family member. Patient has a chronic runny nose. She had a slight cough. She has had some urologic issues and may have noted blood. Apparently patient fell from the commode. She was found between the commode and the wall. She is on anticoagulant and may have hit her head. She cannot remember if she did or did not hit her head. Her daughter reports that 2 weeks prior to current presentation she had similar N/V bout that lasted 3 days although no fever associated and seemed to improve at that time. Workup in the ED included T1 100.1, heart rate 83, BP 169/91, respiratory rate 16, 92% on room air--> T99.6, heart rate 82, BP 144/74, respiratory rate 18, 97%on 2 L nasal cannula,, CBC with WBC 9.8, hemoglobin 14.7, platelet 244 with leftshift, unremarkable coags, CMP with BUN/creatinine 13/1.19, glucose 169, lactic acid 1.4, T. bili 3.20, AST/ALT 43/345, alk phos 332, urinalysis unremarkable, CT of the brain with evidence of a small old infarct in the right frontal lobe stable since prior with no acute intracranial findings, chest x-ray with no acute cardiopulmonary findings, gallbladder ultrasound evidence status postcholecystectomy with possible mild intrahepatic biliary ductal dilatation, urine culture and blood culture x 2 pending She has a history of underlying CAD, CABG, (JAY to the LAD, SVG sequential graft to the diagonal branch and OM 2, SVG to the PDA), paroxysmal atrial fibrillation, hyperlipidemia, and hypertension superimposed on diabetes mellitusand MARIVEL. 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 Morbid obesity MARIVEL (obstructive sleep apnea) Osteoarthritis Paroxysmal atrial fibrillation Pulmonary embolism Stroke Home Medications aspirin 81 mg tablet,delayed release 81 mg PO QDAY blood thinner 11/03/17 [History Last Taken Unknown] atorvastatin 40 mg tablet 40 mg PO QDAY cholesterol #30 tabs 03/02/18 [Rx Last Taken Unknown] alprazolam 0.5 mg tablet 0.5 mg PO 4X/DAY anxiety 11/23/19 [History Last Taken 05/12/23] montelukast 10 mg tablet 10 mg PO DAILY allergies 12/29/20 [History Last Taken Unknown] nitroglycerin 0.4 mg sublingual tablet (Nitrostat) 0.4 mg sublingual Q5-15M PRN chest pain #25 tabs 10/21/21 [Rx Last Taken Unknown] BP cuff #1 ea 01/20/22 [Rx Last Taken Unknown] cholecalciferol (vitamin D3) 125 mcg (5,000 unit) capsule 125 mcg PO DAILY vitamin 01/20/22 [History Last Taken Unknown] escitalopram oxalate 10 mg tablet (Lexapro) 10 mg PO DAILY depression 01/20/22 [History Last Taken Unknown] topiramate 100 mg tablet 50 mg PO BID nerve pain 01/20/22 [History Last Taken Unknown] acetaminophen 500 mg tablet (Tylenol Extra Strength) 1,000 mg PO Q4H PRN pain 05/19/22 [History Last Taken Unknown] hydrocodone-acetaminophen 5-325mg 5mg-325mg ([place]) 1 tab PO Q12H PRN Pain 1-10 Or Fever 05/19/22 [History Last Taken Unknown] insulin degludec 200 unit/mL (3 mL) subcutaneous pen 40 unit subcut QHS expzugrg65/17/22 [History Last Taken Unknown] ropinirole 1 mg tablet 2 mg PO BID pain 05/19/22 [History Last Taken Unknown] trazodone 150 mg tablet 300 mg PO QHS sleep 05/19/22 [History Last Taken Unknown] apixaban 5 mg tablet (Eliquis) 5 mg PO DAILY blood thinner 04/20/23 [History Last Taken 05/12/23] fesoterodine 4 mg tablet,extended release 24 hr 4 mg PO DAILY unknown 04/20/23 [History Last Taken Unknown] losartan 25 mg tablet 25 mg PO DAILY BP #30 tabs 04/20/23 [Rx Last Taken Unknown] vibegron 75 mg tablet (Gemtesa) 75 mg PO DAILY unknown 04/20/23 [History Last Taken Unknown] furosemide 20 mg tablet 20 mg PO DAILY water pill 05/12/23 [History Last Taken Unknown] guselkumab 100 mg/mL subcutaneous auto-injector (Tremfya) 100 mg subcut .[id number] 05/12/23 [History Last Taken Unknown] tizanidine 4 mg capsule 4 mg PO Q8H spasms 05/12/23 [History Last Taken Unknown] metoprolol succinate 50 mg tablet,extended release 24 hr 25 mg PO DAILY BP 05/13/23 [History Last Taken Unknown] Allergy/AdvReac Type Severity Reaction Status Date / Time insulin isophane (NPH) Allergy Severe heart burn Verified 05/12/23 20:52 Anesthetics - Amide Type - Allergy NEEDS Verified 05/12/23 20:52 Select A FOLLOW-UP Anesthetics - Tyra Type- Allergy NEEDS Verified 05/12/23 20:52 Parabens FOLLOW-UP latex Allergy Unknown Verified 05/12/23 20:52 promethazine [From Phenergan] Allergy PT UNSURE Verified 05/12/23 20:52 OF REACTION sitagliptin phosphate Allergy Unknown Verified 05/12/23 20:52 [From Januvia] insulin degludec AdvReac Mild Nausea Verified 05/12/23 20:52 [From Xultophy 100/3.6] liraglutide AdvReac Mild Nausea Verified 04/20/23 14:41 [From Xultophy 100/3.6] atorvastatin [From Lipitor] AdvReac Unknown Unknown Verified 05/12/23 20:52 codeine AdvReac Unknown Unknown Verified 05/12/23 20:52 tizanidine AdvReac Unknown Unknown Verified 05/12/23 20:52 Family History Father CAD (coronary artery disease) Mother CAD (coronary artery disease) Brother CAD (coronary artery disease) Surgical History H/O coronary artery bypass surgery (~06/01/17) History of bilateral cataract extraction History of cholecystectomy History of knee surgery History of total hysterectomy Social History (Updated 05/13/23 @ 01:[address] Octavia Grubre MD) household members: none housing: assisted living facility Smoking Status: Former smoker how long ago did patient quit smokin years ago second hand exposure: Yes alcohol intake: never substance use type: does not use caffeine: No ROS ROS Narrative Admission Review of Systems: CONSTITUTIONAL: No weight loss, + fever, chills, weakness or fatigue. HEENT: + Chronic rhinorrhea. Eyes: No visual loss, blurred vision, double vision. Ears, Nose, Throat: No hearing loss, sneezing, congestion or sore throat. SKIN: + Jaundice. No rash or itching, lesions, wounds. CARDIOVASCULAR: No chest pain, chest pressure or chest discomfort, palpitations,edema, orthopnea, syncopal events. RESPIRATORY: + shortness of breath, cough without marked sputum. No wheezing, hemoptysis. GASTROINTESTINAL: + anorexia, nausea, vomiting. No diarrhea, abdominal pain, melena, BRBPR. GENITOURINARY: No dysuria, frequency, urgency or retention. NEUROLOGICAL: + Confusion. No headache, dizziness, syncope, paralysis, ataxia, numbness or tingling in the extremities, focal weakness, change in bowel or bladder control, seizure. MUSCULOSKELETAL: + muscle, back pain, joint pain or stiffness. HEMATOLOGIC: + Easy bleeding/bruising. LYMPHATICS: No enlarged nodes. No history of splenectomy. PSYCHIATRIC: + history of depression or anxiety. ENDOCRINOLOGIC: No reports of sweating, cold or heat intolerance. No polyuria orpolydipsia. ALLERGIES: + History allergic rhinitis. Physical Exam Narrative Physical Examination: General: Awake, intermittently alert, alert her daughter who is present Skin: Very mildly jaundiced color, normal turgor, no severely marked scleral icterus, no cyanosis. HEENT: AT/NC, EOMI, PERRLA, dry MM, no carotid bruits or JVD noted. Lungs: Diminished, greater bases, appropriate effort no rales, ronchi or wheezing. Heart: Currently regular rate and rhythm; no gallop, rub audible. Abdomen: Soft, no significant pain with palpation or any rebound or guarding butpatient did have recent morphine administration, no marked distention, hyperactive bowel sounds, no obvious HSM. Extremities: No cyanosis, clubbing, or edema. Neurological: Patient awake, intermittently alert, oriented as noted, cognitive function not baseline intact; pupils equally reactive to light and accommodation, cranial nerves grossly normal, moving all 4 extremities, no focaldeficits, strength moderately to severely globally decreased secondary to acute presentation, fatigued and mildly lethargic. Psychiatric: Affect appears fatigued, ill-appearing, no acute evidence of depressive or anxiety feelings but does have notable underlying history. Lab / Micro Data 05/13/23 02:55 05/13/23 02:55 Labs: Laboratory Results - last 24 hr 05/12/23 21:20: WBC 9.8, RBC 4.92, Hgb 14.7, Hct 45.6, MCV 92.7, MCH 29.9, MCHC 32.2, RDW Std Deviation 41.1, RDW Coeff of Sky 12.0, Plt Count 244, MPV 10.8, Immature Gran % (Auto) 0.700, Neut % (Auto) 82.1 H, Lymph % (Auto) 10.1 L, [place] % (Auto) 6.4, Eos % (Auto) 0.3, Baso % (Auto) 0.4, Absolute Neuts (auto) 8.0 H, Absolute Lymphs (auto) 0.99, Nucleated RBC % 0, PT 14.5, INR 1.1, APTT 28.7, Sodium 136, Potassium 4.1, Chloride 100, Carbon Dioxide 30.0, Anion Gap 6, BUN 13, Creatinine 1.19 H, Estim Creat Clear Calc 33.93, Est GFR (MDRD) Af Amer 56 L, Est GFR (MDRD) Non-Af 46 L, BUN/Creatinine Ratio 10.9, Glucose 169 H, Lactic Acid 1.4, Calcium 9.8, Total Bilirubin 3.20 H, AST 483 H, ALT 345 H, Alkaline Phosphatase 332 H, Total Protein 8.0, Albumin 3.3, Globulin 4.7 H, Albumin/Globulin Ratio 0.7 L 05/12/23 21:30: Urine Color Yellow, Urine Clarity Clear, Urine pH 7.0, Ur Specific [place] 1.010, Urine Protein 15 H, Urine Glucose (UA) Normal, Urine Ketones Negative, Urine Occult Blood 10 H, Urine Nitrite Negative, Urine Bilirubin Negative, Urine Urobilinogen 1 H, Ur Leukocyte Esterase Negative, Urine RBC 0 SEEN, Urine WBC 0 SEEN, Ur Squamous Epith Cells 0 SEEN, Urine Bacteria 0 SEEN, Urine Mucus 0 SEEN 05/13/23 02:16: Procalcitonin 2.29 H 05/13/23 02:55: WBC 10.7, RBC 4.42, Hgb 13.3, Hct 41.9, MCV 94.8, MCH 30.1, MCHC31.7 L, RDW Std Deviation 42.5, RDW Coeff of Sky 12.2, Plt Count 278, MPV 10.4, Immature Gran % (Auto) 0.300, Neut % (Auto) 77.1 H, Lymph % (Auto) 15.5 L, [place] % (Auto) 6.5, Eos % (Auto) 0.2, Baso % (Auto) 0.4, Absolute Neuts (auto) 8.2 H, Absolute Lymphs (auto) 1.66, Nucleated RBC % 0, Sodium 139, Potassium 4.1, Chloride 104, Carbon Dioxide 29.0, Anion Gap 6, BUN 14, Creatinine 1.28 H, EstimCreat Clear Calc 27.72, Est GFR (MDRD) Af Amer 52 L, Est GFR (MDRD) Non-Af 43 L,BUN/Creatinine Ratio 10.9, Glucose 146 H, Hemoglobin A1c 7.0 H, Calcium 9.2, Total Bilirubin 3.40 H, AST 372 H, ALT 298 H, Alkaline Phosphatase 281 H, Ammonia 15.0, Total Creatine Kinase 41, Total Protein 7.2, Albumin 2.8 L, Globulin 4.4 H, Albumin/Globulin Ratio 0.6 L 05/13/23 03:00: POC Glucose 155 H 05/13/23 07:57: Lactic Acid 0.9, Acetaminophen < 2.0 L, Ethyl Alcohol < 3.0 05/13/23 08:33: POC Glucose 81 05/13/23 10:05: Urine Opiates Screen POSITIVE H, Urine Methadone Screen NEGATIVE, Ur Barbiturates Screen NEGATIVE, Ur Phencyclidine Scrn NEGATIVE, Ur Amphetamines Screen NEGATIVE, MDMA (Ecstasy) Screen POSITIVE H, U Benzodiazepines Scrn POSITIVE H, Urine Cocaine Screen NEGATIVE, U Cannabinoids Screen NEGATIVE, Ur Drug Screen Comment 05/13/23 11:56: POC Glucose 68 L 05/13/23 12:42: POC Glucose 157 H Micro: Microbiology 05/13/23 02:15 Mucosa - Nasopharyngeal Coronavirus COVID-19 PCR - Final Radiology Impression Brain CT 05/12/23 21:57 IMPRESSION: undefined Chest X-Ray 05/12/23 22:10 IMPRESSION: No acute pulmonary disease. Electronically Signed: Elliot Ziegler MD at 23:27 EDT , Gallbladder Ultrasound 05/12/23 22:28 IMPRESSION: undefined Abdomen/Pelvis CT 05/13/23 08:52 IMPRESSION: Sigmoid diverticulosis. Fatty infiltration of the liver. Dilated intrahepatic biliary clips more prominent in the left lobe. Atelectasis in the left lobe of liver. A repeat sonogram of the liver is recommended for evaluation. Coronary calcification. Electronically Signed: Florencio Robert MD at 12:10 EDT , Lumbar Spine CT 05/13/23 12:30 IMPRESSION: Multilevel degenerative changes, as described above. Electronically Signed: Florencio Robert MD at 13:30 EDT , Assessment & Plan Assessment/Plan (1) Fever: (2) Jaundice: (3) Acute encephalopathy: PLAN: Plan The patient is an 82 y/o who presents to the [facility] ED on 05/12/23 with history of onset of fever as well as altered mental status reportedly with temperature up to 102.9 of sudden onset worsening over the last several hours with decreased oral intake and a recent slight cough with chronic rhinorrhea Acute Encephalopathy possibly econdary to acute non viral hepatitis , obstructive jaundice secondary to choledocholithiasis. She had a CT scan of the abdomen pelvis that showed ductal dilation of the extrahepatic and intrahepatic ductal system. Typically we will get an MRCP to evaluate her hepatobiliary system but she cannot get it because of a device in place for her bladder. Therefore she will undergo ERCP. The patient and patient's family were explained alternatives, risk, benefits including not withstanding bleeding, infection, sepsis, perforation, and post ERCP pancreatitis. She will have an ASA of 4 for the procedure. Continue empiric antibiotic therapy. Charges/Coding Visit Charges Inpatient E&M: 09280 Init Hosp L3 05/13/23 1632 <Electronically signed by Doe Friend DO> Cosigner Signature (if applicable): CC: Dr. Octavia Gruber MD; Dr. Rosalind Rubalcava MD~ Signed [facility] Work Phone: 1(315) 537-118608-11-2023 Procedure [facility] 05-13-2023 Procedure [facility]08-11-2023 Consult note Author Alee Yao [facility] May 13, 2023 10:51am Note Date/Time May 13, 2023 10 :05am [facility] Medical Records Department [address] [place] [address] Pharmacokinetic/Renal -Consult 05/13/23 1004 MR#: [id number] Acct: [id number] Name: LUIZA GALO Rep #:[id number] : 1940 82 From: Dany Hairston PCP: Dr. Rosalind Rubalcava MD Status:ADM IN Location: [place] [address] Consult Antibiotic Management Pharmacy has been consulted to manage selected antiobiotic: Vancomycin Type of Intervention Type of Consult: New start Suspected Infection Suspected Infection: Other (EMPIRIC/FEVER) Prior Doses of Antibiotics Prior Doses of Antibiotics Received/Current Regimen: Vancomycin 1250 mg IV x 1 given 05/13/23 @ 0948 Pt is also on zosyn Labs Labs: Sodium 139 mmol/L (136-145) 05/13/23 02:55 Potassium 4.1 mmol/L (3.5-5.1) 05/13/23 02:55 Chloride 104 mmol/L (98-107) 05/13/23 02:55 Carbon Dioxide 29.0 mmol/L (21.0-32.0) 05/13/23 02:55 Anion Gap 6 (5-15) 05/13/23 02:55 BUN 14 mg/dL (7-18) 05/13/23 02:55 Creatinine 1.28 mg/dL (0.55-1.02) H 05/13/23 02:55 Est GFR (MDRD) Af Amer 52 mL/min (>60) L 05/13/23 02:55 Est GFR (MDRD) Non-Af 43 mL/min (>60) L 05/13/23 02:55 BUN/Creatinine Ratio 10.9 RATIO (10-20) 05/13/23 02:55 Glucose 146 mg/dL (74-106) H 05/13/23 02:55 Microbiology Microbiology: Microbiology 05/13/23 02:15 Mucosa - Nasopharyngeal Coronavirus COVID-19 PCR - Final Dosing Weight Weight used for dosin kg Estimated Creatinine Clearance Estimated Creatinine Clearance: ~27 ml/min Goal Trough Goal Trough: 15-20 mcg/mL Pharmacy Plan for Drug Dosing Pharmacy Plan for Drug Dosin mg vancomycin IV x 1 initial dose, followed by 1000 mg IV q24h starting 05/14/32 @ 1000 trough prior to 3rd dose. Pharmacy Service will continue to monitor and adjust dosing as required. Follow-Up Labs Follow-Up Labs: Trough: Vancomycin Date/Time Labs Ordered Labs to be done on [date and time ordered]: 05/15/23 @ 0930 05/13/23 1006 <Electronically signed by Dany rushing> Date _ Dany Hairston 05/13/23 1051 <Electronically signed by Alee Hatfield O> Cosigner Signature (if applicable): Date Alee Yao DO CC: ~ Signed [facility] Work Phone: 1(117) 980-950308-11-2023 Progress note Author Alee Yao [facility] May 13, 2023 7:49am Note Date/Time May 13, 2023 7: 21am [facility] System Medical Records Department [address] [place] [address] Progress Note - Hospitalist 05/13/23 0709 MR#: [id number] Acct: [id number] Name: LUIZA GALO Rep #:[id number] : 1940 82 From: Alee Yao DO PCP: Dr. Rosalind Rubalcava MD Status:ADM IN Location: MS3 [id number] Reason for Visit Reason for Visit: Fever/nausea vomiting/confusion Subjective Subjective Mrs. Galo is an 82-year-old white female with a complicated past medical history who presented to the emergency department at [facility] late last evening on 05/12/2023 with fevers as well as altered mental status. She was reported to have a temperature of 102.9 of sudden onset that was worsening. She had decreased oral intake and a slight cough with chronic rhinorrhea. She had fallen off the toilet and was found between the toilet and the wall which prompted her family to bring her in for evaluation. She did not recall any of these events and was very confused on presentation. Family reported she had an episode of nausea and vomiting about 2 weeks ago that lastedabout 3 days but she had no associated fever. Upon presentation she had a temperature of 100.1, heart rate 83, blood pressure was 169/91, respiratory rate16 and oxygen saturations were 92% on room air. She was subsequently placed on 2 L nasal cannula which improved her saturations to 97%. Her CBC was unremarkable however she did have a left shift with an 82.1% neutrophilia. Coags were normal. Chemistry panel showed normal lites with a creatinine of 1.19 and a glucose of 169. The patient is diabetic at baseline. Her transaminases were markedly elevated with a total bilirubin of 3.2, AST of 483, ALT of 345 and an alk phos of 332. Her ammonia level is normal. Her procalcitonin was 2.29. Her lactic acid was within normal limits at 1.4. Chest x-ray showed no acute cardiopulmonary processes. Right upper quadrant ultrasound was performed which showed history of cholecystectomy and possible mild intrahepatic biliary duct dilation. COVID testing is negative. Blood and urine cultures were drawn in the emergency department and are pending. She was started on Zosyn and will add vancomycin until we can delineate the etiology of her fever. Objective Data Objective Data Vital Signs: Vital Signs Temp Pulse Resp BP Pulse Ox O2 Del Method O2 Flow Rate 97.9 F 50 L 16 107/51 L 94 Nasal Cannula 2 05/13/23 03:40 05/13/23 03:40 05/13/23 03:40 05/13/23 03:40 05/13/23 03:40 05/13/23 03:40 05/13/23 03:40 Oxygen Flow Rate (L/min) 2 Oxygen Delivery Method Nasal Cannula Weight: 88 kg Body Mass Index (BMI) 35.6 Intake & Output: Intake and Output for Last 24 Hours 05/11/23 05/12/23 05/13/23 23:59 23:59 23:59 Intake Total 310 / 310 Balance 310 / 310 Lab / Micro Data 05/13/23 02:55 05/13/23 02:55 Labs: Laboratory Results - last 24 hr 05/12/23 21:20: WBC 9.8, RBC 4.92, Hgb 14.7, Hct 45.6, MCV 92.7, MCH 29.9, MCHC 32.2, RDW Std Deviation 41.1, RDW Coeff of Sky 12.0, Plt Count 244, MPV 10.8, Immature Gran % (Auto) 0.700, Neut % (Auto) 82.1 H, Lymph % (Auto) 10.1 L, [place] % (Auto) 6.4, Eos % (Auto) 0.3, Baso % (Auto) 0.4, Absolute Neuts (auto) 8.0 H, Absolute Lymphs (auto) 0.99, Nucleated RBC % 0, PT 14.5, INR 1.1, APTT 28.7, Sodium 136, Potassium 4.1, Chloride 100, Carbon Dioxide 30.0, Anion Gap 6, BUN 13, Creatinine 1.19 H, Estim Creat Clear Calc 33.93, Est GFR (MDRD) Af Amer 56 L, Est GFR (MDRD) Non-Af 46 L, BUN/Creatinine Ratio 10.9, Glucose 169 H, Lactic Acid 1.4, Calcium 9.8, Total Bilirubin 3.20 H, AST 483 H, ALT 345 H, Alkaline Phosphatase 332 H, Total Protein 8.0, Albumin 3.3, Globulin 4.7 H, Albumin/Globulin Ratio 0.7 L 05/12/23 21:30: Urine Color Yellow, Urine Clarity Clear, Urine pH 7.0, Ur Specific [place] 1.010, Urine Protein 15 H, Urine Glucose (UA) Normal, Urine Ketones Negative, Urine Occult Blood 10 H, Urine Nitrite Negative, Urine Bilirubin Negative, Urine Urobilinogen 1 H, Ur Leukocyte Esterase Negative, Urine RBC 0 SEEN, Urine WBC 0 SEEN, Ur Squamous Epith Cells 0 SEEN, Urine Bacteria 0 SEEN, Urine Mucus 0 SEEN 05/13/23 02:16: Procalcitonin 2.29 H 05/13/23 02:55: WBC 10.7, RBC 4.42, Hgb 13.3, Hct 41.9, MCV 94.8, MCH 30.1, MCHC31.7 L, RDW Std Deviation 42.5, RDW Coeff of Sky 12.2, Plt Count 278, MPV 10.4, Immature Gran % (Auto) 0.300, Neut % (Auto) 77.1 H, Lymph % (Auto) 15.5 L, [place] % (Auto) 6.5, Eos % (Auto) 0.2, Baso % (Auto) 0.4, Absolute Neuts (auto) 8.2 H, Absolute Lymphs (auto) 1.66, Nucleated RBC % 0, Sodium 139, Potassium 4.1, Chloride 104, Carbon Dioxide 29.0, Anion Gap 6, BUN 14, Creatinine 1.28 H, EstimCreat Clear Calc 27.72, Est GFR (MDRD) Af Amer 52 L, Est GFR (MDRD) Non-Af 43 L,BUN/Creatinine Ratio 10.9, Glucose 146 H, Calcium 9.2, Total Bilirubin 3.40 H, AST 372 H, ALT 298 H, Alkaline Phosphatase 281 H, Ammonia 15.0, Total Protein 7.2, Albumin 2.8 L, Globulin 4.4 H, Albumin/Globulin Ratio 0.6 L 05/13/23 03:00: POC Glucose 155 H Micro: Microbiology 05/13/23 02:15 Mucosa - Nasopharyngeal Coronavirus COVID-19 PCR - Final Radiography Diagnostic Testing: Radiology Impression Brain CT 05/12/23 21:57 IMPRESSION: undefined Chest X-Ray 05/12/23 22:10 IMPRESSION: No acute pulmonary disease. Electronically Signed: Elliot Ziegler MD at 23:27 EDT , Gallbladder Ultrasound 05/12/23 22:28 IMPRESSION: undefined Assessment & Plan Assessment/Plan (1) Fever: (2) Jaundice: (3) Acute encephalopathy: (4) Transaminitis: (5) Elevated serum creatinine: (6) Immunosuppression due to drug therapy: (7) Hypotension: PLAN: Plan Fever -Etiology is currently unclear -Procalcitonin elevated at 2.2 -Cultures pending -Continue Zosyn -Add vancomycin -Check MRSA PCR -COVID is negative -Patient is immunosuppressed at baseline on Tremfya for psoriasis -Will hold for now -Hepatitis panel is pending with transaminitis Relative hypotension -Upon chart review patient appears to have a baseline blood pressure with systolic between 130 and 160 and diastolic between 70 and 90 -Current blood pressure is 107/51 -With fever and concern for infection will bolus at 30 cc/kg of body weight withsepsis guidelines -Renal function has worsened despite being on normal saline at 100 cc/h -Check stat lactic acid with blood pressure trending down and worsening renal function and bilirubin -Antibiotics as above -Cultures pending Transaminitis/jaundice -Total bilirubin is 3.4 -AST and ALT are both elevated but have slightly trended down -Ammonia levels normal -Ultrasound shows duct dilation -Unable to do MRCP due to device implant -Continue Zosyn -Check tox screen -Check Tylenol level -Check serum alcohol level -Hepatitis panel pending -GI consult pending Toxic/metabolic encephalopathy -Likely related to the above -Ammonia levels within normal limits -Will monitor and should improve as infectious etiology is identified and treated adequately Elevated serum on creatinine CKD stage II -Currently 1.28 -Baseline appears to be between 0.8 and 1.0 therefore does not meet criteria forAKI at this time however close -Continue IV fluids -Stop Lasix Fall -Likely related to acute illness - PT/OT consultation MARIVEL -Patient is untreated due to her resistance to CPAP -Continue nocturnal oxygen as needed to keep sats greater than 88% CAD/HTN/HPL -CABG-->JAY to LAD, SVG to OM2 and sequetially to diagonal, SVG to PDA 06/01/17 -Hold metoprolol and losartan for relative hypotension -Continue aspirin -Hold statin with transaminitis -Hold Lasix with relative hypotension and worsening renal function -Restart medications when medically appropriate -As needed hydralazine available if blood pressure trends up PAF -Currently in normal sinus rhythm -Hold metoprolol for relative hypotension -Apixaban on hold in case any need for procedures -Will restart apixaban once we delineate more what is the etiology of her current illness and exclude any procedures being needed -Restart metoprolol once blood pressure allows DM-2 -Continue home Lantus at 40 units nightly--> if patient has limited p.o. intake may need to decrease dose -SSI as ordered -Accu-Cheks Allergic rhinitis -Continue home Singulair History of DVT/PE -Start prophylactic dosing with enoxaparin while off Eliquis -Will restart Eliquis as soon as we deem no medical procedures will need to be pursued History of stroke -Continue home aspirin -CT head shows small old infarct in the right frontal lobe that is stable -Holding apixaban and statin at this time GERD -Continue PPI but utilize IV for now Anxiety/depression -Continue home Xanax will restart to avoid withdrawal as she takes this regularly -Continue home Lexapro -Hold home trazodone until mental status improves Restless leg syndrome -Continue Requip Neuropathy -Continue Topamax Psoriasis -Hold home Tremfya with acute infection DVT prophylaxis -Holding apixaban -Start Eliquis prophylactically and restart apixaban when medically appropriate CODE STATUS -DNR CCA with no intubation 05/13/23 0749 <Electronically signed by Alee Yao DO> Cosigner Signature (if applicable): CC: ~ Signed [facility] Work Phone: 1(499) 352-856308-11-2023 History and physical note Author Octavia Gruber [facility] May 13, 2023 1:33am Note Date/Time May 13, 2023 12 :51am [facility] Health System Medical Records Department [address] [place] [address] H&P Exam - Hospitalist 05/13/23 0049 MR#: [id number] Acct: [id number] Name: LUIZA GALO Corrine Rep #:[id number] : 1940 82 From: Octavia Gruber MD PCP: Dr. Rosalind Rubalcava MD Status:ADM IN Location: VA3 [id number] HPI - General General Date of Admission: 05/13/23 Date of Service: 05/13/23 Chief Complaint: Fall, confusion, fever, N/V HPI Narrative The patient is an 82 y/o F w/ PMHx: CKD stage III unclear subtype, Allergic rhinitis, CAD s/p CABG (JAY to the LAD, SVG sequential graft to the diagonal branch and OM 2, SVG to the PDA), PAF, HTN, HLD, MARIVEL, Diabetes mellitus type II,Former tobacco use, Depression and Anxiety, GERD, Hx VTE (DVT, PE), Hx CVA, Obesity who presents to the [facility] ED on 05/12/23 with history of onset of fever as well as altered mental status reportedly with temperature up to 102.9 of sudden onset worsening over the last several hours with decreased oral intake and a recent slight cough with chronic rhinorrhea and potentially recent blood noted in her urine falling off of the commode found between the commode and the wall with unclear head trauma prompting family to bring her in for evaluation. Patient does not recall any of these recent events and is very altered. Patient and family do repor that ~ 2 weeks prior to current presentation she had similarN/V bout that lasted 3 days although no fever associated and seemed to improve at that time. Workup in the ED included T1 100.1, heart rate 83, BP 169/91, respiratory rate 16, 92% on room air--> T99.6, heart rate 82, BP 144/74, respiratory rate 18, 97% on 2 L nasal cannula,, CBC with WBC 9.8, hemoglobin 14.7, platelet 244 with left shift, unremarkable coags, CMP with BUN/creatinine 13/1.19, glucose 169, lactic acid 1.4, T. bili 3.20, AST/ALT 43/345, alk phos 332, urinalysis unremarkable, CT of the brain with evidence of a small old infarct in the right frontal lobe stable since prior with no acute intracranial findings, chest x-ray with no acute cardiopulmonary findings, gallbladder ultrasound evidence status postcholecystectomy with possible mild intrahepatic biliary ductal dilatation, urine culture and blood culture x 2 pending per ED. in the ED patient administered IV Zosyn and morphine 4 mg IV x 1. [facility] Medical History Anxiety and depression Atherosclerosis of coronary artery of [place] heart without angina pectoris Bradycardia Diabetes mellitus Dysphagia Essential hypertension Former tobacco use GERD (gastroesophageal reflux disease) History of left heart catheterization (LHC) (~01/20/21) Hyperlipidemia [facility] (current) use of anticoagulants Morbid obesity MARIVEL (obstructive sleep apnea) Osteoarthritis Paroxysmal atrial fibrillation Pulmonary embolism Stroke Home Medications aspirin 81 mg tablet,delayed release 81 mg PO QDAY 11/03/17 [History Last Taken Unknown] atorvastatin 40 mg tablet 40 mg PO QDAY #30 tabs 03/02/18 [Rx Last Taken Unknown] alprazolam 0.5 mg tablet 0.5 mg PO TID 11/23/19 [History Last Taken Unknown] montelukast 10 mg tablet 10 mg PO DAILY 12/29/20 [History Last Taken Unknown] nitroglycerin 0.4 mg sublingual tablet (Nitrostat) 0.4 mg sublingual Q5-15M PRN chest pain #25 tabs 10/21/21 [Rx Last Taken Unknown] BP cuff #1 ea 01/20/22 [Rx Last Taken Unknown] cholecalciferol (vitamin D3) 125 mcg (5,000 unit) capsule 125 mcg PO DAILY 01/20/22 [History Last Taken Unknown] escitalopram oxalate 10 mg tablet (Lexapro) 10 mg PO DAILY 01/20/22 [History Last Taken Unknown] topiramate 100 mg tablet 50 mg PO BID 01/20/22 [History Last Taken Unknown] acetaminophen 500 mg tablet (Tylenol Extra Strength) 500 mg PO BID PRN pain 05/19/22 [History Last Taken Unknown] hydrocodone-acetaminophen 5-325mg 5mg-325mg ([place]) 1 tab PO Q4H PRN Pain 1-10 Or Fever 05/19/22 [History Last Taken Unknown] insulin degludec 200 unit/mL (3 mL) subcutaneous pen 40 unit subcut QHS 05/19/22[History Last Taken Unknown] ropinirole 1 mg tablet 1 mg PO TID 05/19/22 [History Last Taken Unknown] trazodone 150 mg tablet 300 mg PO QHS 05/19/22 [History Last Taken Unknown] apixaban 5 mg tablet (Eliquis) 5 mg PO BID 04/20/23 [History Last Taken Unknown] fesoterodine 4 mg tablet,extended release 24 hr 4 mg PO DAILY 04/20/23 [History Last Taken Unknown] losartan 25 mg tablet 25 mg PO DAILY #30 tabs 04/20/23 [Rx Last Taken Unknown] vibegron 75 mg tablet (Gemtesa) 75 mg PO DAILY 04/20/23 [History Last Taken Unknown] metoprolol succinate 50 mg tablet,extended release 24 hr 50 mg PO DAILY Disreguard earlier RX: this is a correction #30 tabs 04/21/23 [Rx Last Taken Unknown] furosemide 20 mg tablet 20 mg PO DAILY 05/12/23 [History Last Taken Unknown] guselkumab 100 mg/mL subcutaneous auto-injector (Tremfya) mg subcut .s8dnoda 05/12/23 [History Last Taken Unknown] tizanidine 4 mg capsule 4 mg PO Q8H 05/12/23 [History Last Taken Unknown] Allergy/AdvReac Type Severity Reaction Status Date / Time insulin isophane (NPH) Allergy Severe heart burn Verified 05/12/23 20:52 Anesthetics - Amide Type - Allergy NEEDS Verified 05/12/23 20:52 Select A FOLLOW-UP Anesthetics - Tyra Type- Allergy NEEDS Verified 05/12/23 20:52 Parabens FOLLOW-UP latex Allergy Unknown Verified 05/12/23 20:52 promethazine [From Phenergan] Allergy PT UNSURE Verified 05/12/23 20:52 OF REACTION sitagliptin phosphate Allergy Unknown Verified 05/12/23 20:52 [From Januvia] insulin degludec AdvReac Mild Nausea Verified 05/12/23 20:52 [From Xultophy 100/3.6] liraglutide AdvReac Mild Nausea Verified 04/20/23 14:41 [From Xultophy 100/3.6] atorvastatin [From Lipitor] AdvReac Unknown Unknown Verified 05/12/23 20:52 codeine AdvReac Unknown Unknown Verified 05/12/23 20:52 tizanidine AdvReac Unknown Unknown Verified 05/12/23 20:52 Family History Father CAD (coronary artery disease) Mother CAD (coronary artery disease) Brother CAD (coronary artery disease) Surgical History H/O coronary artery bypass surgery (~06/01/17) History of bilateral cataract extraction History of cholecystectomy History of knee surgery History of total hysterectomy Social History (Updated 05/13/23 @ 01:[address] Octavia Gruber MD) household members: none housing: assisted living facility Smoking Status: Former smoker how long ago did patient quit smokin years ago second hand exposure: Yes alcohol intake: never substance use type: does not use caffeine: No ROS ROS Narrative Admission Review of Systems: CONSTITUTIONAL: No weight loss, + fever, chills, weakness or fatigue. HEENT: + Chronic rhinorrhea. Eyes: No visual loss, blurred vision, double vision. Ears, Nose, Throat: No hearing loss, sneezing, congestion or sore throat. SKIN: + Jaundice. No rash or itching, lesions, wounds. CARDIOVASCULAR: No chest pain, chest pressure or chest discomfort, palpitations,edema, orthopnea, syncopal events. RESPIRATORY: + shortness of breath, cough without marked sputum. No wheezing, hemoptysis. GASTROINTESTINAL: + anorexia, nausea, vomiting. No diarrhea, abdominal pain, melena, BRBPR. GENITOURINARY: No dysuria, frequency, urgency or retention. NEUROLOGICAL: + Confusion. No headache, dizziness, syncope, paralysis, ataxia, numbness or tingling in the extremities, focal weakness, change in bowel or bladder control, seizure. MUSCULOSKELETAL: + muscle, back pain, joint pain or stiffness. HEMATOLOGIC: + Easy bleeding/bruising. LYMPHATICS: No enlarged nodes. No history of splenectomy. PSYCHIATRIC: + history of depression or anxiety. ENDOCRINOLOGIC: No reports of sweating, cold or heat intolerance. No polyuria orpolydipsia. ALLERGIES: + History allergic rhinitis. Vital Signs Vital Signs Vital Signs: 05/12/23 20:41 05/12/23 20:55 05/12/23 20:59 Temperature 100.1 F H Temperature Source Oral Pulse Rate 83 Respiratory Rate 16 Respiratory Effort Normal Non-Labored Normal Non-Labored Respiratory Depth Normal Respiratory Pattern Normal Normal Blood Pressure 169/91 H Blood Pressure Mean 117 Pulse Ox 92 Oxygen Delivery Method Room Air Room Air Oxygen Flow Rate (L/min) 05/12/23 21:36 05/12/23 22:53 05/12/23 23:11 Temperature 99.6 F H 99.6 F H Temperature Source Oral Oral Pulse Rate 82 82 Respiratory Rate 18 18 Respiratory Effort Respiratory Depth Respiratory Pattern Blood Pressure 157/81 H 144/74 H Blood Pressure Mean 106 97 Pulse Ox 92 97 Oxygen Delivery Method Room Air Room Air Nasal Cannula Oxygen Flow Rate (L/min) 2 Weight Weight: 200 lb 13.458 oz Body Mass Index (BMI) 33.4 Physical Exam Narrative Physical Examination: General: Awake, intermittently alert, alert her daughter who is present and somerecent events but clearly confused, cooperative, fatigued, lying in the ED bed, notes pain is improved following recent morphine. Skin: Very mildly jaundiced color, normal turgor, no severely marked scleral icterus, no cyanosis. HEENT: AT/NC, EOMI, PERRLA, dry MM, no carotid bruits or JVD noted. Lungs: Diminished, greater bases, appropriate effort no rales, ronchi or wheezing. Heart: Currently regular rate and rhythm; no gallop, rub audible. Abdomen: Soft, no significant pain with palpation or any rebound or guarding butpatient did have recent morphine administration, no marked distention, hyperactive bowel sounds, no obvious HSM. Extremities: No cyanosis, clubbing, or edema. Neurological: Patient awake, intermittently alert, oriented as noted, cognitive function not baseline intact; pupils equally reactive to light and accommodation, cranial nerves grossly normal, moving all 4 extremities, no focaldeficits, strength moderately to severely globally decreased secondary to acute presentation, fatigued and mildly lethargic. Psychiatric: Affect appears fatigued, ill-appearing, no acute evidence of depressive or anxiety feelings but does have notable underlying history. Results Lab / Micro Data 05/12/23 21:20 05/12/23 21:20 Labs: Laboratory Results - last 24 hr 05/12/23 21:20: WBC 9.8, RBC 4.92, Hgb 14.7, Hct 45.6, MCV 92.7, MCH 29.9, MCHC 32.2, RDW Std Deviation 41.1, RDW Coeff of Sky 12.0, Plt Count 244, MPV 10.8, Immature Gran % (Auto) 0.700, Neut % (Auto) 82.1 H, Lymph % (Auto) 10.1 L, [place] % (Auto) 6.4, Eos % (Auto) 0.3, Baso % (Auto) 0.4, Absolute Neuts (auto) 8.0 H, Absolute Lymphs (auto) 0.99, Nucleated RBC % 0, PT 14.5, INR 1.1, APTT 28.7, Sodium 136, Potassium 4.1, Chloride 100, Carbon Dioxide 30.0, Anion Gap 6, BUN 13, Creatinine 1.19 H, Estim Creat Clear Calc 33.93, Est GFR (MDRD) Af Amer 56 L, Est GFR (MDRD) Non-Af 46 L, BUN/Creatinine Ratio 10.9, Glucose 169 H, Lactic Acid 1.4, Calcium 9.8, Total Bilirubin 3.20 H, AST 483 H, ALT 345 H, Alkaline Phosphatase 332 H, Total Protein 8.0, Albumin 3.3, Globulin 4.7 H, Albumin/Globulin Ratio 0.7 L 05/12/23 21:30: Urine Color Yellow, Urine Clarity Clear, Urine pH 7.0, Ur Specific [place] 1.010, Urine Protein 15 H, Urine Glucose (UA) Normal, Urine Ketones Negative, Urine Occult Blood 10 H, Urine Nitrite Negative, Urine Bilirubin Negative, Urine Urobilinogen 1 H, Ur Leukocyte Esterase Negative, Urine RBC 0 SEEN, Urine WBC 0 SEEN, Ur Squamous Epith Cells 0 SEEN, Urine Bacteria 0 SEEN, Urine Mucus 0 SEEN Radiology Impression Brain CT 05/12/23 21:57 IMPRESSION: undefined Chest X-Ray 05/12/23 22:10 IMPRESSION: No acute pulmonary disease. Electronically Signed: Elliot Ziegler MD at 23:27 EDT , Gallbladder Ultrasound 05/12/23 22:28 IMPRESSION: undefined Assessment & Plan Assessment/Plan (1) Fever: (2) Jaundice: (3) Acute encephalopathy: PLAN: Plan The patient is an 82 y/o F w/ PMHx: CKD stage III unclear subtype, Allergic rhinitis, CAD s/p CABG (JAY to the LAD, SVG sequential graft to the diagonal branch and OM 2, SVG to the PDA), PAF, HTN, HLD, MARIVEL, Diabetes mellitus type II,Former tobacco use, Depression and Anxiety, GERD, Hx VTE (DVT, PE), Hx CVA, Obesity who presents to the [facility] ED on 05/12/23 with history of onset of fever as well as altered mental status reportedly with temperature up to 102.9 of sudden onset worsening over the last several hours with decreased oral intake and a recent slight cough with chronic rhinorrhea and potentially recent blood noted in her urine falling off of the commode found between the commode and the wall with unclear head trauma prompting family to bring her in for evaluation. #1. Mechanical Fall secondary to Acute Encephalopathy secondary to Acute Hyperbilirubinemia/Transaminitis with associated status post prior cholecystectomy with possible mild intrahepatic biliary ductal dilatation with SIRS of unclear etiology: Will admit to medical surgical floor given stable VS, will maintain n.p.o. status on IV PPI given concern for still intra-abdominal component given hyperbilirubinemia/transaminitis and concern for infection, willmaintain on IV Zosyn pending further workup and results, will obtain procalcitonin, will obtain hepatitis panel, will obtain COVID PCR, will obtain ammonia level, will trend CBC as well as CMP, gastroenterology consulted, pending. Of note patient CANNOT have an MRI secondary to device in place, although nonfunctional for her bladder. Also of note patient has severe psychiatric reaction with hallucinations to anesthetics as well as sedatives andnotes even after her cardiac catheterization she had severe psychiatric issues. #2. CAD: Status post CABG, JAY to the LAD, SVG sequential graft to the diagonal branch and OM 2, SVG to the PDA, holding home apixaban regimen temporarily given acute presentation potential intervention needs, continue babyaspirin, holding statin given transaminitis with resumption once appropriate, continue metoprolol and losartan home regimen. #3. Diabetes mellitus type II: Hold oral home regimen, continue home insulin regimen although given presentation low threshold to decrease to one half dose if necessary, n.p.o. status with every 6 hours accu checks w/ ISS. #4. PAF: We will continue patient home metoprolol regimen, holding home apixaban regimen given acute presentation as noted #1, add back once appropriate. #5. Hypertension: Continue home regimen including losartan, metoprolol, PRN hydralazine. #6. Hyperlipidemia: Given significant hyperbilirubinemia and transaminitis we will temporally hold patient statin therapy, add back once appropriate. #7. Anxiety and depression: We will temporarily hold her home low-dose alprazolam but immediately once mental status improved would restart especially given prior history of withdrawal. Will continue home escitalopram regimen. Given significant fatigue and altered status we will hold nightly high-dose trazodone at this time. #8. Allergic rhinitis: We will continue patient home montelukast regimen. #9. Former tobacco use: Encourage continued tobacco cessation. #10. History of VTE: Patient with history in the chart reported DVT, PE, temporally holding apixaban regimen given acute presentation in case of intervention needs. #11. History CVA: CT head as noted with small old infarct in the right frontal lobe stable since prior imaging, Will continue baby aspirin, holding chronic home apixaban regimen as noted with resumption once appropriate, temporally holding statin also given significant transaminitis with resumption once appropriate, continue hypertensive regimen and diabetic regimen with alterationsas noted. #12. Obesity: Weight loss and lifestyle changes encouraged. #13. GERD: We will maintain on IV PPI. #14. Chronic Kidney Disease Stage III, unclear subtype: Admission BUN/Cr 13/1.19, baseline renal function primarily 0.8-1.2, repeat BMP in AM. #15. MARIVEL: CPAP nightly. #16. DVT prophylaxis: SCDs, holding home chronic apixaban regimen secondary to #1. #17. CODE status: Patient JAHAIRA is her son and living will is currently in place. Discussed CODE status at length including difference between FULL code, DNR-CCA and DNR-CC status. Following discussions about the differences in these status, requested DNR-CCA, no intubation status. Advanced Care Planning Face to Face Time: 16 minutes. Charges/Coding Visit Charges Inpatient E&M: 16688 Init Hosp L3 Procedures Hospitalists Procedures: 10521 Advncd Care Plan 30 Min 05/13/23 0133 <Electronically signed by Octavia Gruber MD> Cosigner Signature (if applicable): CC: Dr. Octavia Gruber MD; Dr. Rosalind Rubalcava MD~ Signed [facility] Work Phone: [phone] Discharge summary Author Papo Morillo [facility] May 13, 2023 12:55am Note Date/Time May 12, 2023 10 :09pm [facility] System Medical Records Department [address] [place] [address] Emergency Department Summary 05/12/23 MR#: [id number] Acct: [id number] Name: RICKYLUIZA L Rep #:[id number] : 1940 82 From: Papo Morillo MD PCP: Dr. Rosalind Rubalcava MD Status:REG ER Location: ED HPI History of Present Illness Chief Complaint: Fever Detail of Chief Complaint: Documented temperature of 102.9 and change in mental status Informant: patient and family Onset/Context/Timing Onset: Today and Hours Context: Sudden Onset Timing: Continuous Quality: Altered mental status Location: Presents from home Current Severity: Moderate Maximum Severity: Moderate Worsened by: Unknown Relieved by: Nothing Associated Symptoms Associated Symptoms: Documented fever and decreased level of consciousness Narrative Narrative: Patient is a 82-year-old woman with history of paroxysmal atrial fibrillation, essential hypertension, restrictive lung disease, coronary disease, on anticoagulant who presents with altered mental status and document temperature 102.9. She has had decreased p.o. intake. Decreased awareness and orientation from normal per family member. Patient has a chronic runny nose. She had a slight cough. She has had some urologic issues and may have noted blood. Apparently patient fell from the commode. She was found between the commode andthe wall. She is on anticoagulant and may have hit her head. She cannot remember if she did or did not hit her head. Prior similar symptoms: Yes (Infection) Recent Illness/Hospitalization: No PFSH PFS Medical History (Updated 05/13/23 @ 00:[address] Papo Morillo MD) Anxiety and depression Atherosclerosis of coronary artery of [place] heart without angina pectoris Bradycardia Diabetes mellitus Dysphagia Essential hypertension Former tobacco use GERD (gastroesophageal reflux disease) History of left heart catheterization (LHC) (~01/20/21) 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 Morbid obesity MARIVEL (obstructive sleep apnea) Osteoarthritis Paroxysmal atrial fibrillation Pulmonary embolism Stroke Home Medications aspirin 81 mg tablet,delayed release 81 mg PO QDAY 11/03/17 [History Last Taken Unknown] atorvastatin 40 mg tablet 40 mg PO QDAY #30 tabs 03/02/18 [Rx Last Taken Unknown] alprazolam 0.5 mg tablet 0.5 mg PO TID 11/23/19 [History Last Taken Unknown] montelukast 10 mg tablet 10 mg PO DAILY 12/29/20 [History Last Taken Unknown] nitroglycerin 0.4 mg sublingual tablet (Nitrostat) 0.4 mg sublingual Q5-15M PRN chest pain #25 tabs 10/21/21 [Rx Last Taken Unknown] BP cuff #1 ea 01/20/22 [Rx Last Taken Unknown] cholecalciferol (vitamin D3) 125 mcg (5,000 unit) capsule 125 mcg PO DAILY 01/20/22 [History Last Taken Unknown] escitalopram oxalate 10 mg tablet (Lexapro) 10 mg PO DAILY 01/20/22 [History Last Taken Unknown] topiramate 100 mg tablet 50 mg PO BID 01/20/22 [History Last Taken Unknown] acetaminophen 500 mg tablet (Tylenol Extra Strength) 500 mg PO BID PRN pain 05/19/22 [History Last Taken Unknown] hydrocodone-acetaminophen 5-325mg 5mg-325mg ([place]) 1 tab PO Q4H PRN Pain 1-10 Or Fever 05/19/22 [History Last Taken Unknown] insulin degludec 200 unit/mL (3 mL) subcutaneous pen 40 unit subcut QHS 05/19/22[History Last Taken Unknown] ropinirole 1 mg tablet 1 mg PO TID 05/19/22 [History Last Taken Unknown] trazodone 150 mg tablet 300 mg PO QHS 05/19/22 [History Last Taken Unknown] apixaban 5 mg tablet (Eliquis) 5 mg PO BID 04/20/23 [History Last Taken Unknown] fesoterodine 4 mg tablet,extended release 24 hr 4 mg PO DAILY 04/20/23 [History Last Taken Unknown] losartan 25 mg tablet 25 mg PO DAILY #30 tabs 04/20/23 [Rx Last Taken Unknown] vibegron 75 mg tablet (Gemtesa) 75 mg PO DAILY 04/20/23 [History Last Taken Unknown] metoprolol succinate 50 mg tablet,extended release 24 hr 50 mg PO DAILY Disreguard earlier RX: this is a correction #30 tabs 04/21/23 [Rx Last Taken Unknown] furosemide 20 mg tablet 20 mg PO DAILY 05/12/23 [History Last Taken Unknown] guselkumab 100 mg/mL subcutaneous auto-injector (Tremfya) mg subcut .[id number] 05/12/23 [History Last Taken Unknown] tizanidine 4 mg capsule 4 mg PO Q8H 05/12/23 [History Last Taken Unknown] Allergy/AdvReac Type Severity Reaction Status Date / Time insulin isophane (NPH) Allergy Severe heart burn Verified 05/12/23 20:52 Anesthetics - Amide Type - Allergy NEEDS Verified 05/12/23 20:52 Select A FOLLOW-UP Anesthetics - Tyra Type- Allergy NEEDS Verified 05/12/23 20:52 Parabens FOLLOW-UP latex Allergy Unknown Verified 05/12/23 20:52 promethazine [From Phenergan] Allergy PT UNSURE Verified 05/12/23 20:52 OF REACTION sitagliptin phosphate Allergy Unknown Verified 05/12/23 20:52 [From Januvia] insulin degludec AdvReac Mild Nausea Verified 05/12/23 20:52 [From Xultophy 100/3.6] liraglutide AdvReac Mild Nausea Verified 04/20/23 14:41 [From Xultophy 100/3.6] atorvastatin [From Lipitor] AdvReac Unknown Unknown Verified 05/12/23 20:52 codeine AdvReac Unknown Unknown Verified 05/12/23 20:52 tizanidine AdvReac Unknown Unknown Verified 05/12/23 20:52 Family History Father CAD (coronary artery disease) Mother CAD (coronary artery disease) Brother CAD (coronary artery disease) Surgical History (Updated 05/13/23 @ 00:[address] Papo Morillo MD) H/O coronary artery bypass surgery (~06/01/17) History of bilateral cataract extraction History of cholecystectomy History of knee surgery History of total hysterectomy Social History Smoking Status: Former smoker how long ago did patient quit smokin years ago second hand exposure: Yes alcohol intake: never substance use type: does not use caffeine: No ROS ROS ED Constitutional Constitutional ED: Reports chills, fever(s) and sweats; Denies subjective or weight loss Eyes Eyes: Denies blurry vision, change in vision or diplopia ENT ENT ED: Reports rhinorrhea; Denies ear pain or sore throat Cardiovascular Cardiovascular: Denies chest pain, orthopnea, palpitations or racing heartbeat Respiratory/Chest Respiratory/Chest: Reports cough and dyspnea; Denies orthopnea Gastrointestinal Gastrointestinal: Reports nausea and vomiting; Denies abdominal pain Musculoskeletal Musculoskeletal: Denies arthralgias, back pain or myalgias Integumentary Denies rash Neurologic Neurologic: Reports weakness; Denies headache(s) or paresthesias Hematologic/Lymphatic Hematologic/Lymphatic: Reports easy bruising EXAM Physical Exam Const Vital Signs: 05/12/23 20:41 05/12/23 20:55 05/12/23 20:59 Temperature 100.1 F H Temperature Source Oral Pulse Rate 83 Respiratory Rate 16 Respiratory Effort Normal Non-Labored Normal Non-Labored Respiratory Depth Normal Respiratory Pattern Normal Normal Blood Pressure 169/91 H Blood Pressure Mean 117 Pulse Ox 92 Oxygen Delivery Method Room Air Room Air Oxygen Flow Rate (L/min) 05/12/23 21:36 05/12/23 22:53 05/12/23 23:11 Temperature 99.6 F H 99.6 F H Temperature Source Oral Oral Pulse Rate 82 82 Respiratory Rate 18 18 Respiratory Effort Respiratory Depth Respiratory Pattern Blood Pressure 157/81 H 144/74 H Blood Pressure Mean 106 97 Pulse Ox 92 97 Oxygen Delivery Method Room Air Room Air Nasal Cannula Oxygen Flow Rate (L/min) 2 Positive well nourished, well developed and obese General Appearance ED: well developed, diaphoretic, NAD and pallor; Negative forcyanotic Nutritional Appearance: obese HEENT Reports dry mucous membranes HEENT Narrative: Head is atraumatic normocephalic. There is no hemotympanum. No CSF otorrhea orrhinorrhea. Negative Alanis sign over [place] sign. No septal deviation hematoma. No dental trauma. Mouth ED: Yes dry mucous membranes Mouth: dry mucous membranes Eyes PERRL and EOMs intact bilaterally General Eye ED: Negative for pale conjunctiva or scleral icterus Neck no lymphadenopathy, supple and no JVD Chest Wall inspection of chest normal and palpation of chest normal Resp normal respiratory effort and clear to auscultation bilaterally Cardio regular rate, regular rhythm, S1 normal heart sound, S2 normal heart sound and no murmurs GI normal to inspection, nondistended, normoactive bowel sounds, non-tender, non-distended and no masses; Negative for hepatosplenomegaly Back/Spine no CVA tenderness Extremity General Extremety ED: Yes edema General Extremity: edema Neuro oriented x3, CN's II-XII intact bilaterally and no sensory deficits noted Sensorium / Orientation: stuporous; Negative for alert Motor Exam: strength 5/5 throughout Psych Psych Narrative: Focal to assess since patient has acute encephalopathy and is not her normal self. Skin no rashes or lesions noted and no wounds General Skin Exam: pallor; Negative for jaundice MDM MDM MDM Narrative Medical decision making narrative: With documented fever change in mental status concern patient has infectious cephalopathy. Infectious sepsis workup was undertaken. With no obvious source patient was not started on antibiotics. Will obtain cath urine, chest x-ray appropriate blood work. If there is no identifiable source will use order set for treatment of sepsis for unknown source. History & Record Review Additional record(s) reviewed:: Prior ED visit and Prior labs Lab Data Attestation: I reviewed the patient's lab results. Lab results narrative: Basic metabolic panel is unremarkable. Patient's bilirubin is elevated at 3.2. AST and ALT are elevated 483 and 354 respectively. Alkaline phosphatase is elevated. Need to consider cholecystitis as the cause of her fever and possibleobstruction. Labs: Laboratory Results - last 24 hr 05/12/23 05/12/23 21:20 21:30 WBC 9.8 RBC 4.92 Hgb 14.7 Hct 45.6 MCV 92.7 MCH 29.9 MCHC 32.2 RDW Std Deviation 41.1 RDW Coeff of Sky 12.0 Plt Count 244 MPV 10.8 Immature Gran % (Auto) 0.700 Neut % (Auto) 82.1 H Lymph % (Auto) 10.1 L [place] % (Auto) 6.4 Eos % (Auto) 0.3 Baso % (Auto) 0.4 Absolute Neuts (auto) 8.0 H Absolute Lymphs (auto) 0.99 Nucleated RBC % 0 PT 14.5 INR 1.1 APTT 28.7 Sodium 136 Potassium 4.1 Chloride 100 Carbon Dioxide 30.0 Anion Gap 6 BUN 13 Creatinine 1.19 H Estim Creat Clear Calc 33.93 Est GFR (MDRD) Af Amer 56 L Est GFR (MDRD) Non-Af 46 L BUN/Creatinine Ratio 10.9 Glucose 169 H Lactic Acid 1.4 Calcium 9.8 Total Bilirubin 3.20 H AST 483 H ALT 345 H Alkaline Phosphatase 332 H Total Protein 8.0 Albumin 3.3 Globulin 4.7 H Albumin/Globulin Ratio 0.7 L Urine Color Yellow Urine Clarity Clear Urine pH 7.0 Ur Specific [place] 1.010 Urine Protein 15 H Urine Glucose (UA) Normal Urine Ketones Negative Urine Occult Blood 10 H Urine Nitrite Negative Urine Bilirubin Negative Urine Urobilinogen 1 H Ur Leukocyte Esterase Negative Urine RBC 0 SEEN Urine WBC 0 SEEN Ur Squamous Epith Cells 0 SEEN Urine Bacteria 0 SEEN Urine Mucus 0 SEEN Radiography Diagnostic Testing: Clinical Impression(s) from Imaging Studies Brain CT 05/12/23 21:57 IMPRESSION: undefined Chest X-Ray 05/12/23 22:10 IMPRESSION: No acute pulmonary disease. Electronically Signed: Elliot Ziegler MD at 23:27 EDT , Gallbladder Ultrasound 05/12/23 22:28 IMPRESSION: undefined Ultrasound reveals mild biliary ductal dilatation. Common bile duct is normal for age and the fact that she is status post cholecystectomy. No stone was seen. Management Discussion w/another healthcare provider: Hospitalist (Hospitalist made aware patient. Hospitalist will contact Dr. Orr in the morning since this does notrequire an emergent consult.) Treatment and Re-Evaluation :: Patient requested I speak to dog who is a colorectal surgeon and family member. Number that was given was called. There was no answer. The voicemail has not been set up and unable to leave a message. 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, H/O coronary artery bypass surgery, Diabetes mellitus, Essential hypertension, Hyperlipidemia, Jaundice, Fever Prescriptions: No Action aspirin 81 mg tablet,delayed release (DR/EC) 81 mg PO QDAY alprazolam 0.5 mg tablet 0.5 mg PO TID montelukast 10 mg tablet 10 mg PO DAILY hydrocodone-acetaminophen [[place]] 5-325 mg tablet 1 tab PO Q4H PRN (Reason: Pain 1-10 Or Fever) insulin degludec 200 unit/mL (3 mL) insulin pen 40 unit SC QHS nitroglycerin [Nitrostat] 0.4 mg tablet, sublingual 0.4 mg sublingual Q5-15M PRN (Reason: chest pain) Qty: 25 3RF Rx Instructions: do not exceed 3 doses per episode topiramate 100 mg tablet 50 mg PO BID cholecalciferol (vitamin D3) 125 mcg (5,000 unit) capsule 125 mcg PO DAILY escitalopram oxalate [Lexapro] 10 mg tablet 10 mg PO DAILY (DME) BP cuff See Rx Instructions .Route .MEDSUPPLY Qty: 1 0RF Rx Instructions: As directed trazodone 150 mg tablet 300 mg PO QHS ropinirole 1 mg tablet 1 mg PO TID Patient Comments: TAKE 1 TABLET BY MOUTH THREE TIMES A DAY acetaminophen [Tylenol Extra Strength] 500 mg tablet 500 mg PO BID PRN (Reason: pain) Eliquis 5 mg tablet 5 mg PO BID Gemtesa 75 mg tablet 75 mg PO DAILY fesoterodine 4 mg tablet extended release 24 hr 4 mg PO DAILY losartan 25 mg tablet 25 mg PO DAILY Qty: 30 11RF furosemide 20 mg tablet 20 mg PO DAILY tizanidine 4 mg capsule 4 mg PO Q8H Tremfya 100 mg/mL auto-injector subcut .[id number] atorvastatin 40 mg tablet 40 mg PO QDAY Qty: 30 6RF metoprolol succinate 50 mg tablet extended release 24 hr 50 mg PO DAILY Qty: 30 11RF Primary Care Provider: Rosalind Rubalcava Referrals: Rosalind Rubalcava MD [Primary Care Provider] - Disposition Disposition: Home, Self Care What to do if you have Problems For any increased pain, shortness of breath, bleeding, nausea or vomiting, chestpain, or any unexpected problems, contact your Primary Care Provider. Call [facility] ([phone]) or report to the closest Emergency Room. Call 911 if necessary. 05/13/23 0055 <Electronically signed by Papo Morillo MD> Cosigner Signature (if applicable): CC: Dr. Rosalind Rubalcava MD ~ Signed [facility] Work Phone: [phone] 509-980007-05-2022 Nurse Note* Maggi Ellington RN - 04/06/2022 2:09 PM EDT Patient straight catheterized for 10 ml urine. Lidocaine 1%--50 and 2%--50 ml instilled into bladder followed by Lidocaine 11 ml to urethra. Maggi Ellington RN * Maggi Ellington RN - 04/06/2022 10:41 AM EDT Medications and Allergies reviewed and documented. Patient [...] mild discomfort is NA [facility] NoteHNO ID: [id number] Author: Tejal Rivera MD Service: ? Author Type: Physician Type: [...] Post Procedure Plan Instruction Sheet Given: [facility] History of Present illness Narrative* Tejal Rivera MD - 04/06/2022 10:30 AM EDT OPERATIVE REPORT Botox Injection Preop Nurse: Maggi Ellington RN Preop Check List: Patient complied with pre-op instructions, Surgical site identified and confirmedby patient, Patient Identified, Patient consent obtained, Allergies [...] Vacuum-dried purified onabotulinumtoxinA (BOTOX) was reconstituted with 10mlof 0.9% non preserved saline solution per 100 [...] procedure for observation. The nurse conducted a briefexamination of the patient and inquired whether the [...] Sheet Given: Post Cystoscopy documented in this encounterMem[facility]06-[facility]2022 Miscellaneous Notes* Telephone Encounter - Amanda Bassett Ma - 03/23/2022 1:58 PM EDT Pt informed orders were placed Amanda Bassett Ma * Telephone Encounter - Tejal Rivera MD - 03/23/2022 12:14 PM EDT Yes, order placed Thank you * Telephone Encounter - Amanda Bassett Ma - 03/23/2022 11:06 AM EDT Luiza Galo called today. : 1940 Allergies: Januvia [Sitagliptin], Latex, Metformin, and Codeine (cell) Message can be left with: with patient only Reason for call: pt is coming in for Botox 04/06/22 she would like to know if she needs a culture done before her appt. To make sure she doesn't have a UTI. Amanda Bassett Ma documented in this encounterMem[facility]12-[facility]21 Nurse Note* Maggi Ellington RN - 09/02/2021 1:24 PM EST Patient straight catheterized for 30 ml urine. Lidocaine 2%--50 ml instilled into bladder followed by Lidocaine 11 ml to urethra. Maggi Ellington RN * Maggi Ellington RN - 09/02/2021 9:11 AM EST Medications and Allergies reviewed and documented. Patient [...] mild discomfort is NA documented in this encounterMem[facility]12-01-2021 NoteHNO ID: [id number] Author: Tejal Rivera MD Service: ? Author Type: Physician Type: [...] Post Procedure Plan Instruction Sheet Given: [facility] Procedure note* Tejal Rivera MD - 09/02/2021 8:52 AM EST Procedure(s): BOTOX Pre-Procedure Diagnose(s): Urge incontinence Post-Procedure Diagnose(s): Urge incontinence OPERATIVE REPORT Botox Injection Preop Nurse: Maggi Ellington RN Preop Check List: Patient complied with pre-op instructions, Surgical site identified and confirmedby patient, Patient Identified, Patient consent obtained, Allergies [...] Vacuum-dried purified onabotulinumtoxinA (BOTOX) was reconstituted with 10mlof 0.9% non preserved saline solution per 100 [...] procedure for observation. The nurse conducted a briefexamination of the patient and inquired whether the [...] Sheet Given: Post Cystoscopy documented in this encounterMem[facility]11-17-2021 Miscellaneous Notes* Telephone Encounter - Maggi Vega RN - 08/19/2021 3:46 PM EST Patient has an upcoming appointment and wondered if she needed to stop her coumadin- she doesn't, patient informed. Maggi Veag RN documented in this encounterMemorial [facility]09-15-2021 NoteHNO ID: [id number] Author: Tejal Rivera MD Service: ? Author Type: Physician Type: Progress Notes Filed: 06/17/2021 2:36 PM Note Text: NEW PATIENT HISTORY AND PHYSICAL EXAM HISTORY OF PRESENT ILLNESS: Luiza Galo is a 80 year old female who presents New patient today but Saw Dr Rivera 3 years ago. Has interstim but not [...] A WEEK - SUN, TUES, WED, FRID AND SAT zolpidem (AMBIEN) 10 mg tab [...] HISTORY Diagnosis Date - Benzodiazepine dependence, continuous ([facility]) - Depression - Diverticulitis - DM type 2 (diabetes mellitus, type 2) ([facility]) - Enuresis - RADHA (generalized anxiety disorder) - GERD (gastroesophageal reflux disease) - HTN (hypertension) - (more content not included)...[facility]09-15-[facility] History of Present illness Narrative* Tejal Rivera MD - 06/17/2021 1:37 PM EDT NEW PATIENT HISTORY AND PHYSICAL EXAM HISTORY OF PRESENT ILLNESS: Luiza Galo is a 80 year old female who presents New patient today but Saw Dr Rivera 3 years ago. Has interstim but not [...] mg capsule Take 1 capsule by mouth twicedaily. amoxicillin-clavulanic acid (AUGMENTIN) 875-125 mg per tablet [...] A WEEK - SUN, , TUE, FRI & SAT zolpidem (AMBIEN) 10 mg tab [...] MEDICAL HISTORY Diagnosis Date Benzodiazepine dependence, continuous ([facility]) Depression Diverticulitis DM type 2 (diabetes mellitus, type 2) ([facility]) Enuresis RADHA (generalized anxiety disorder) GERD (gastroesophageal reflux disease) HTN (hypertension) Hyperlipidemia IBS (irritable bowel syndrome) Insomnia Known medical problems c diff LBP (low back pain) OAB (overactive bladder) Obesity Opioid dependence, continuous ([facility]) MARIVEL (obstructive sleep apnea) Psoriasis RLS (restless legs syndrome) Stroke (HCC) R frontal supraventricular FAUSTINO (stress urinary incontinence, [...] encounter diagnosis) (R35.1) Nocturia documented in [facility] encounterMag[facility] note Author Dany Hairston [facility] August 15, 2023 1:26pm Note Date/Time August 15, 2023 1:26pm [facility] Medical Records Department [address] [place] [address] Counseling Note - Pharmacy 08/15/23 1325 MR#: [id number] Acct: [id number] Name: LUIZA GALO Rep #:[id number] : 1940 83 From: Dany Hairston PCP: Dr. Rosalind Rubalcava MD Status:ADM BJ Y Location: [place] [address] Pharmacy [facility] has performed discharge medication reconciliation and counseling for this patient. The patient's discharge medication list was reviewed for discrepancies and discrepancies were resolved. The patient was counseled on the following discharge medications and changes in medications for homegoing were reviewed. The Reason for Use, instructions for use, and potential side effects were reviewed for all new medications. The patient's questions regarding all of their medications were answered. 1. Ondansetron 8 mg PO Q8H PRN N/V The patient was able to verbally demonstrate an understanding of their dischargemedications. The patient was counselled on new medication ondansetron by teacher of gifted students Dean. Medications at Discharge Home Medications atorvastatin 40 mg tablet 40 mg PO QDAY cholesterol #30 tabs 03/02/18 alprazolam 0.5 mg tablet 0.5 mg PO 4X/DAY anxiety 11/23/19 montelukast 10 mg tablet 10 mg PO DAILY allergies 12/29/20 nitroglycerin 0.4 mg sublingual tablet (Nitrostat) 0.4 mg sublingual Q5-15M PRN chest pain #25 tabs 10/21/21 BP cuff #1 ea 01/20/22 cholecalciferol (vitamin D3) 125 mcg (5,000 unit) capsule 125 mcg PO DAILY vitamin 01/20/22 escitalopram oxalate 10 mg tablet (Lexapro) 10 mg PO DAILY depression 01/20/22 topiramate 100 mg tablet 50 mg PO BID nerve pain 01/20/22 acetaminophen 500 mg tablet (Tylenol Extra Strength) 1,000 mg PO Q4H PRN pain 05/19/22 hydrocodone-acetaminophen 5-325mg 5mg-325mg ([place]) 1 tab PO Q12H PRN Pain 1-10 Or Fever 05/19/22 ropinirole 1 mg tablet 2 mg PO BID pain 05/19/22 trazodone 150 mg tablet 300 mg PO QHS sleep 05/19/22 apixaban 5 mg tablet (Eliquis) 5 mg PO Q12H blood thinner 04/20/23 loperamide 2 mg capsule (Anti-Diarrheal (loperamide)) 4 mg PO Q2H PRN diarrhea 05/16/23 aspirin 81 mg tablet,delayed release (Enteric Coated Aspirin) 81 mg PO DAILY 08/14/23 fesoterodine 4 mg tablet,extended release 24 hr 4 mg PO BID 08/14/23 furosemide 20 mg tablet (Lasix) 20 mg PO DAILY 08/14/23 guselkumab 100 mg/mL subcutaneous syringe (Tremfya) 100 mg subcut .monthly 08/14/23 insulin degludec 100 unit/mL (3 mL) subcutaneous pen (Tresiba FlexTouch U-100 insulin) 30 unit subcut DAILY 08/14/23 losartan 100 mg tablet 25 mg PO DAILY BP 08/14/23 metoprolol succinate 50 mg tablet,extended release 24 hr 25 mg PO DAILY 08/14/23 tizanidine 4 mg capsule 4 mg PO Q8H 08/14/23 vibegron 75 mg tablet (Gemtesa) 75 mg PO DAILY 08/14/23 ondansetron 8 mg disintegrating tablet 8 mg PO Q8H PRN nausea and vomiting #20 tabs 08/15/23 08/15/23 1326 <Electronically signed by Dany rushing> Date _ Dany Hairston Cosigner Signature (if applicable): Date CC: ~ Signed [facility] Work Phone: Discharge summary Author Cirilo Fine [facility] August 15, 2023 12:17pm Note Date/Time August 15, 2023 12:14pm [facility] Medical Records Department [address] [place] [id number] Discharge Summary 08/15/23 1213 MR#: [id number] Acct: [id number] Name: LUIZA GALO Rep #:[id number] : 1940 83 From: Cirilo Fine DO PCP: Dr. Rosalind Rubalcava MD Status:ADM BJ Location: [place] [address] Providers Date of Admission: 08/14/23 Primary Care Physician: Dr. Rosalind Rubalcava MD Reason For Visit: GASTROENTERITIS, ACUTE FEBRILE ILLNESS Diagnosis Discharge Diagnosis (1) Gastroenteritis: Status: Acute Code(s): K52.9 - Noninfective gastroenteritis and colitis, unspecified Plan: Chronic. intermittent. Patient has never tried dietary modifications including gluten-free, lactose-free, etc. With her bloating, as stated that would be moreconcerned about this being possibly a gluten intolerance. I recommended trying agluten-free diet for 1 month as a trial, if she has ongoing symptoms, then this would likely not be gluten intolerance. Plan HTN/HLD/A-fib/VTE ? Blood pressures are stable ? Continue with her home medications ? Continue with her home Lipitor ? We will monitor and make adjustments as necessary ? Continue with Eliquis, she also has a history of DVT/PE DM2 ? We will decrease her insulin dosing by half ? Accu-Cheks ACHS ? Sliding scale insulin ? We will monitor and make adjustments as necessary Anxiety/depression/chronic pain ? Stable ? Continue with her home medications DVT: not indicated as already on apixaban. Medications at Discharge Home Medications atorvastatin 40 mg tablet 40 mg PO QDAY cholesterol #30 tabs 03/02/18 alprazolam 0.5 mg tablet 0.5 mg PO 4X/DAY anxiety 11/23/19 montelukast 10 mg tablet 10 mg PO DAILY allergies 12/29/20 nitroglycerin 0.4 mg sublingual tablet (Nitrostat) 0.4 mg sublingual Q5-15M PRN chest pain #25 tabs 10/21/21 BP cuff #1 ea 01/20/22 cholecalciferol (vitamin D3) 125 mcg (5,000 unit) capsule 125 mcg PO DAILY vitamin 01/20/22 escitalopram oxalate 10 mg tablet (Lexapro) 10 mg PO DAILY depression 01/20/22 topiramate 100 mg tablet 50 mg PO BID nerve pain 01/20/22 acetaminophen 500 mg tablet (Tylenol Extra Strength) 1,000 mg PO Q4H PRN pain 05/19/22 hydrocodone-acetaminophen 5-325mg 5mg-325mg ([place]) 1 tab PO Q12H PRN Pain 1-10 Or Fever 05/19/22 ropinirole 1 mg tablet 2 mg PO BID pain 05/19/22 trazodone 150 mg tablet 300 mg PO QHS sleep 05/19/22 apixaban 5 mg tablet (Eliquis) 5 mg PO Q12H blood thinner 04/20/23 loperamide 2 mg capsule (Anti-Diarrheal (loperamide)) 4 mg PO Q2H PRN diarrhea 05/16/23 aspirin 81 mg tablet,delayed release (Enteric Coated Aspirin) 81 mg PO DAILY 08/14/23 fesoterodine 4 mg tablet,extended release 24 hr 4 mg PO BID 08/14/23 furosemide 20 mg tablet (Lasix) 20 mg PO DAILY 08/14/23 guselkumab 100 mg/mL subcutaneous syringe (Tremfya) 100 mg subcut .monthly 08/14/23 insulin degludec 100 unit/mL (3 mL) subcutaneous pen (Tresiba FlexTouch U-100 insulin) 30 unit subcut DAILY 08/14/23 losartan 100 mg tablet 25 mg PO DAILY BP 08/14/23 metoprolol succinate 50 mg tablet,extended release 24 hr 25 mg PO DAILY 08/14/23 tizanidine 4 mg capsule 4 mg PO Q8H 08/14/23 vibegron 75 mg tablet (Gemtesa) 75 mg PO DAILY 08/14/23 ondansetron 8 mg disintegrating tablet 8 mg PO Q8H PRN nausea and vomiting #20 tabs 08/15/23 Hospital Course Operations None Procedures None Summary of Care Provided Minutes Spent on Discharge: 35 Physical Exam Const alert and no apparent distress Weight / BMI Weight Weight: 86.183 kg Body Mass Index (BMI) 34.9 ABG / Lab / Microbiology Data 08/15/23 04:56 08/15/23 04:56 Laboratory: Laboratory Results - last 24 hr 08/14/23 12:05: WBC 12.5 H, RBC 4.77, Hgb 13.9, Hct 42.8, MCV 89.7, MCH 29.1, MCHC 32.5, RDW Std Deviation 41.1, RDW Coeff of Sky 12.5, Plt Count 294, MPV 10.0, Immature Gran % (Auto) 0.600, Neut % (Auto) 88.1 H, Lymph % (Auto) 7.1 L, [place] % (Auto) 3.7, Eos % (Auto) 0.2, Baso % (Auto) 0.3, Absolute Neuts (auto) 11.0 H, Absolute Lymphs (auto) 0.89, Nucleated RBC % 0, PT 16.3 H, INR 1.3, APTT28.7, Sodium 138, Potassium 3.5, Chloride 105, Carbon Dioxide 27.0, Anion Gap 6,BUN 11, Creatinine 0.98, Est GFR (MDRD) Af Amer 70, Est GFR (MDRD) Non-Af 58 L, BUN/Creatinine Ratio 11.2, Glucose 209 H, Lactic Acid 1.8, Calcium 9.2, Total Bilirubin 0.50, Direct Bilirubin 0.07, AST 22, ALT 14, Alkaline Phosphatase 98, Total Protein 7.6, Albumin 2.8 L, Globulin 4.8 H, Lipase 17 08/14/23 12:41: Urine Color Yellow, Urine Clarity Clear, Urine pH 6.0, Ur Specific [place] 1.020, Urine Protein 30 H, Urine Glucose (UA) 100 H, Urine Ketones 5 H, Urine Occult Blood 25 H, Urine Nitrite Negative, Urine Bilirubin Negative, Urine Urobilinogen Normal, Ur Leukocyte Esterase Negative, Urine RBC 0SEEN, Urine WBC 0 SEEN, Ur Squamous Epith Cells 0 SEEN, Urine Bacteria 0 SEEN, Urine Mucus 0 SEEN 08/14/23 18:09: POC Glucose 180 H 08/14/23 21:41: POC Glucose 156 H 08/15/23 04:56: WBC 10.1, RBC 3.61 L, Hgb 10.5 L, Hct 33.7 L, MCV 93.4, MCH 29.1, MCHC 31.2 L, RDW Std Deviation 43.9, RDW Coeff of Sky 12.9, Plt Count 241,MPV 9.6, Immature Gran % (Auto) 0.200, Neut % (Auto) 69.3, Lymph % (Auto) 24.2, [place] % (Auto) 4.8, Eos % (Auto) 1.2, Baso % (Auto) 0.3, Absolute Neuts (auto) 7.0, Absolute Lymphs (auto) 2.44, Nucleated RBC % 0, Sodium 144, Potassium 3.5, Chloride 113 H, Carbon Dioxide 29.0, Anion Gap 2 L, BUN 11, Creatinine 0.86, Estim Creat Clear Calc 40.58, Est GFR (MDRD) Af Amer 82, Est GFR (MDRD) Non-Af 68, BUN/Creatinine Ratio 12.9, Glucose 91, Calcium 8.5 Microbiology: Microbiology 08/14/23 Unknown Stool Enteric Bacteriology - Final 08/14/23 12:20 Nasal Secretion SARS-CoV-2 & FLU Antigen (Rapid) - Final Radiography Diagnostic Testing: Radiology Impression Chest X-Ray 08/14/23 11:59 IMPRESSION: Degenerative changes, as described above. No demonstrated acute cardiopulmonary process. Electronically Signed: Bernardino Bejarano MD at 15:59 EST Reading Location ID and State: [facility] / [place] , Service support , D/C Instructions Discharge Diet: 2000 Calorie Control Diet (gluten-free diet. ) Meaningful Use Info Meaningful Use Diagnoses (Choose all that apply): None applicable Discharge Plan Admission Admit Date/Time: 08/14/23 15:26 Primary Reason for Your Visit: gastroenteritis. Attending Provider: Cirilo Fine Primary Care Provider: Rosalind Rubalcava Consulting Providers: Judson Hernandez Instructions Additional Instructions / Restrictions: Is unclear what the underlying etiology of your abdominal issues are but I wouldbe concerned that you may have a food intolerance. I think it is reasonable, for the month, is to be on a gluten-free diet. That means no wheat products at all. If you are still having symptoms after about a month's time despite bite strict adherence to a gluten-free diet and this may not be gluten intolerance and then other food intolerance may be an issue. You may also benefit from seeing a pick out hand as outpatient as well. Discharge Orders/Prescriptions Prescriptions: New ondansetron 8 mg tablet,disintegrating 8 mg PO Q8H PRN (Reason: nausea and vomiting) Qty: 20 0RF Continued alprazolam 0.5 mg tablet 0.5 mg PO 4X/DAY montelukast 10 mg tablet 10 mg PO DAILY hydrocodone-acetaminophen [[place]] 5-325 mg tablet 1 tab PO Q12H PRN (Reason: Pain 1-10 Or Fever) nitroglycerin [Nitrostat] 0.4 mg tablet, sublingual 0.4 mg sublingual Q5-15M PRN (Reason: chest pain) Qty: 25 3RF Rx Instructions: do not exceed 3 doses per episode topiramate 100 mg tablet 50 mg PO BID cholecalciferol (vitamin D3) 125 mcg (5,000 unit) capsule 125 mcg PO DAILY escitalopram oxalate [Lexapro] 10 mg tablet 10 mg PO DAILY (DME) BP cuff See Rx Instructions .Route .MEDSUPPLY Qty: 1 0RF Hold Instructions: MD Ordered Rx Instructions: As directed trazodone 150 mg tablet 300 mg PO QHS ropinirole 1 mg tablet 2 mg PO BID acetaminophen [Tylenol Extra Strength] 500 mg tablet 1,000 mg PO Q4H PRN (Reason: pain) Eliquis 5 mg tablet 5 mg PO Q12H loperamide [Anti-Diarrheal (loperamide)] 2 mg capsule 4 mg PO Q2H PRN (Reason: diarrhea) Rx Instructions: after first loose stool, 1 tablet after each subsequent loose stool but no more than 4 tablets in 24 hours insulin degludec [Tresiba FlexTouch U-100] 100 unit/mL (3 mL) insulin pen 30 unit subcut DAILY fesoterodine 4 mg tablet extended release 24 hr 4 mg PO BID Gemtesa 75 mg tablet 75 mg PO DAILY losartan 100 mg Tablet 25 mg PO DAILY aspirin [Enteric Coated Aspirin] 81 mg tablet,delayed release (DR/EC) 81 mg PO DAILY furosemide [Lasix] 20 mg tablet 20 mg PO DAILY tizanidine 4 mg capsule 4 mg PO Q8H Tremfya 100 mg/mL syringe 100 mg subcut .monthly metoprolol succinate 50 mg Tablet Extended Release 24 Hr 25 mg PO DAILY atorvastatin 40 mg tablet 40 mg PO QDAY Qty: 30 6RF Referrals / Follow Up: Rosalind Rubalcava MD [Primary Care Provider] - Within 2 Weeks Disposition Disposition (needs filled in before D/C Order can be placed): NonSkilled NH/Intermed Care Charges/Coding Visit Charges Inpatient E&M: 83216 Disch Hosp >30min 08/15/23 1217 <Electronically signed by Cirilo Fine DO> Cosigner Signature (if applicable): CC: Dr. Cirilo Fine DO; Dr. Rosalind Rubalcava MD~ Signed [facility] Work Phone: Evaluation + Plan note Future Appointments Appointment Date:09/24/2021 11:15:00 AM Scheduled Provider:ROSALIND RUBALCAVA MD Location:[facility] Appointment Type: OV Future Scheduled Tests Laboratory* COVID-19 Only (AO) 03/17/21 * Calcium Level Ionized 08/07/21 * Magnesium Level 08/07/21 * Thyroid Stimulating Hormone 08/07/21 * Thyroid Stimulating Hormone 05/08/21 * Thyroid Stimulating Hormone 10/07/20 * Free T4 08/07/21 * Free T4 05/08/21 * Free T4 10/07/20 * A1C Hemoglobin 08/07/21 * A1C Hemoglobin 11/08/21 * Complete Blood Count 08/07/21 * Free T3 08/07/21 * Lipid Profile 11/08/21 * Complete Metabolic Panel 08/07/21 * Complete Metabolic Panel 11/08/21 [facility] Evaluation + Plan note Future Appointments Appointment Date:11/20/2021 10:45:00 AM Scheduled Provider:ROSALIND RUBALCAVA MD Location:[facility] Appointment Type:PC OV Future Scheduled Tests Laboratory* COVID-19 Only (AO) 03/17/21 * Calcium Level Ionized 08/07/21 * Magnesium Level 08/07/21 * Thyroid Stimulating Hormone 08/07/21 * Free T4 08/07/21 * Urine Culture 09/24/21 * A1C Hemoglobin 08/07/21 * Complete Blood Count 08/07/21 * Free T3 08/07/21 * Complete Metabolic Panel 08/07/21 [facility] Evaluation + Plan note Future Appointments Appointment Date:03/05/2022 02:30:00 PM Scheduled Provider:ROSALIND RUBALCAVA MD Location:[facility] Appointment Type:PC Wellness Primetime Enhanced Appointment Date:04/07/2022 11:00:00 AM Scheduled Provider:ROSALIND RUBALCAVA MD Location:[facility] Appointment Type:PC OV Controlled Medication Future Scheduled Tests Laboratory* Calcium Level Ionized 08/07/21 * Magnesium Level 08/07/21 * Thyroid Stimulating Hormone 08/07/21 * Free T4 08/07/21 * Urine Culture 09/24/21 * A1C Hemoglobin 08/07/21 * Complete Blood Count 08/07/21 * Free T3 08/07/21 * Complete Metabolic Panel 08/07/21 * COVID-19 Only (AO) 03/17/21 [facility] Evaluation + Plan note Future Appointments Appointment Date:04/07/2022 11:00:00 AM Scheduled Provider:ROSALIND RUBALCAVA MD Location:[facility] Appointment Type:PC OV Controlled Medication Diagnostic Tests Pending * Urine Culture 03/24/22 Future Scheduled Tests Laboratory* Calcium Level Ionized 08/07/21 * Magnesium Level 08/07/21 * Thyroid Stimulating Hormone 08/07/21 * Free T4 08/07/21 * Urine Culture 09/24/21 * A1C Hemoglobin 08/07/21 * Complete Blood Count 08/07/21 * Free T3 08/07/21 * Complete Metabolic Panel 08/07/21 [facility] Evaluation + Plan note Future Appointments Appointment Date:05/21/2022 11:00:00 AM Scheduled Provider:ROSALIND RUBALCAVA MD Location:[facility] Appointment Type:PC OV Appointment Date:07/06/2022 11:00:00 AM Scheduled Provider:ROSALIND RUBALCAVA MD Location:[facility] Appointment Type:PC OV Controlled Medication Diagnostic Tests Pending * Vitamin D Level 05/11/22 Future Scheduled Tests Laboratory* Calcium Level Ionized 08/07/21 * Magnesium Level 08/07/21 * Thyroid Stimulating Hormone 08/07/21 * Free T4 08/07/21 * Urine Culture 09/24/21 * A1C Hemoglobin 08/07/21 * Complete Blood Count 08/07/21 * Free T3 08/07/21 * Complete Metabolic Panel 08/07/21 [facility] Evaluation + Plan note Future Appointments Appointment Date:01/07/2023 11:30:00 AM Scheduled Provider:ROSALIND RUBALCAVA MD Location:[facility] Appointment Type:PC OV Future Scheduled Tests Laboratory* Thyroid Stimulating Hormone 11/10/22 * Free T4 11/10/22 * A1C Hemoglobin 05/10/23 * Lipid Profile 05/10/23 * Complete Metabolic Panel 05/10/23 [facility] Evaluation + Plan note Future Appointments Appointment Date:03/11/2023 11:00:00 AM Scheduled Provider:ROSALIND RUBALCAVA MD Location:[facility] Appointment Type:PC OV Controlled Medication Appointment Date:05/13/2023 11:00:00 AM Scheduled Provider:ROSALIND RUBALCAVA MD Location:[facility] Appointment Type:PC OV Future Scheduled Tests Laboratory* Thyroid Stimulating Hormone 11/10/22 * Free T4 11/10/22 * A1C Hemoglobin 05/10/23 * Lipid Profile 05/10/23 * Complete Metabolic Panel 05/10/23 [facility] Evaluation + Plan note Future Appointments Appointment Date:11/15/2023 11:00:00 AM Scheduled Provider:ROSALIND RUBALCAVA MD Location:[facility] Appointment Type:PC OV Follow Up Future Scheduled Tests Laboratory* A1C Hemoglobin 11/09/23 * Complete Blood Count 08/09/23 * Lipid Profile 11/09/23 * Complete Metabolic Panel 11/09/23 Radiology* XR Spine Lumbosacral 2 or 3 Views 08/09/23 * XR Hip 3-4 Views Bilateral 08/09/23 [facility] Evaluation + Plan note Future Appointments Appointment Date:06/06/2024 01:30:00 PM Scheduled Provider:ROSALIND RUBALCAVA MD Location:[facility] Appointment Type:PC Wellness Primetime Enhanced Future Scheduled Tests Laboratory* B-Type Natriuretic Peptide 05/23/24 * Thyroid Stimulating Hormone 06/30/24 * Free T4 03/30/24 * A1C Hemoglobin 06/30/24 * Complete Blood Count 03/30/24 * Complete Blood Count 11/15/23 * Complete Metabolic Panel 06/30/24 Radiology* XR Spine Lumbosacral 2 or 3 Views 08/09/23 * XR Hip 3-4 Views Bilateral 08/09/23 [facility] Evaluation note* Diagnosis Urge incontinence- Primary [facility]cturia [facility] Diagnosis Urge incontinence- Primary [facility] Diagnosis Urinary tract infection without hematuria, site unspecified- Primary [facility] Diagnosis Urge incontinence- Primary [facility] Diagnosis Onset Date Resolution Status 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 Essential hypertension chron ic Hyperlipidemia chronic Paroxysmal atrial fibrillation chronic Acute encephalopathy acute Elevated serum creatinine ac [place] Fever acute Hypotension acute 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 Jaundice acute Transaminitis acute Diabetes mellitus chronic Essential hypertension chron ic 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, chronic Hyperlipidemia chronic MCFP (current) use of anticoagulants [facility] Work Phone: Evaluation note* Diagnosis Onset Date Resolution Status 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 Paroxysmal atrial fibrillation chronic Acute encephalopathy resolve d Elevated serum creatinine re solved Fever resolved Hypotension resolved Jaundice resolved Transaminitis resolved Acute cholangitis acute Allergic rhinitis acute Anxiety acute Atrial fibrillation acute Choledocholithiasis acute Coronary artery disease acut e Debility acute Depression acute Encephalopathy acute Muscle spasm acute Overactive bladder acute Restless leg syndrome acute Restrictive lung disease acu te Hypertension chronic Fever resolved Jaundice resolved Transaminitis resolved [facility] Work Phone: Evaluation note* Diagnosis Onset Date Resolution Status 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 Paroxysmal atrial fibrillation chronic Acute encephalopathy resolve d Elevated serum creatinine re solved Fever resolved Hypotension resolved Jaundice resolved Transaminitis resolved Allergic rhinitis acute Anxiety acute Atrial fibrillation acute Coronary artery disease acut e Debility acute Depression acute Muscle spasm acute Overactive bladder acute Restless leg syndrome acute Restrictive lung disease acu te Hypertension chronic Acute cholangitis resolved Choledocholithiasis resolved Encephalopathy resolved Fever resolved Jaundice resolved Transaminitis resolved Acute febrile illness acute Gastroenteritis acute [facility] Work Phone: Evaluation note* Diagnosis Onset Date Resolution Status Acute febrile illness resolv ed Gastroenteritis resolved SOB (shortness of breath) ac [place] 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 Paroxysmal atrial fibrillation chronic [facility] Work Phone: Evaluation note* Diagnosis Onset Date Resolution Status Acute febrile illness resolv ed Gastroenteritis resolved SOB (shortness of breath) ac [place] 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 Paroxysmal atrial fibrillation chronic Ascending cholangitis acute [facility] Work Phone: Evaluation note* Diagnosis Onset Date Resolution Status SOB (shortness of breath) ac [place] 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 Paroxysmal atrial fibrillation chronic Ascending cholangitis acute [facility] Work Phone: Evaluation noteNo assessment information available [facility] Work Phone: Hospital course Narrative No data available for this section [facility] Discharge instructions No data available for this section [facility] Progress note No data available for this section [facility] Reason for referral (narrative)No reason for referral [facility] Work Phone: Summary Purpose Family History No Family History Records Found Relationship Condition Age at Onset Recorded Date/T alison father Coronary artery disease Unknown mother Coronary artery disease Unknown brother Coronary artery disease Unknown Advance Directives No Advanced Directives Records Found Advance Directive Response Recorded Date/ Time Name of Medical Power of Local Company [employer] May 13, 2023 1:54am Advance Directives No January 19 021 7:12am Living Will Yes May 13 1:54am Power of Local Company [employer] Yes May 13 023 1:54am Advance Directive Response Recorded Date/ Time Name of Medical Power of Local Company [employer] May 13, 2023 1:54am Name of Medical Power of Local Company [employer] May 19, 2023 11:23am Advance Directives No January 19 021 7:12am Living Will Yes May 19 11:23am Power of Local Company [employer] Yes May 19 023 11:23am Advance Directive Response Recorded Date/ Time Name of Medical Power of Local Company [employer] May 13, 2023 12:54am Name of Medical Power of Local Company [employer] May 19, 2023 10:23am Name of Medical Power of Local Company Refrigerated Truck Driver mona (son) August 14, 2023 12:14pm Advance Directives No January 19 021 6:12am Living Will Yes August 14 023 12:14pm Power of Local Company Refrigerated [employer] Driver Yes August 14, 2023 12:14pm Advance Directive Response Recorded Date/ Time Name of Medical Power of Local Company [employer] May 13, 2023 12:54am Name of Medical Power of Local Company [employer] May 19, 2023 10:23am Name of Medical Power of Local Company Refrigerated Truck Driver mona (son) August 14, 2023 4:11pm Advance Directives No January 19 021 6:12am Living Will Yes August 14 023 4:11pm Power of Local Company Refrigerated [employer] Driver Yes August 14, 2023 4:11pm Advance Directive Response Recorded Date/ Time Name of Medical Power of Local Company Refrigerated Truck Driver mona (son) August 14, 2023 4:11pm Advance Directives No January 19 021 6:12am Living Will Yes August 14 023 4:11pm Power of Local Company Refrigerated Truck Driver Yes August 14, 2023 4:11pm Advance Directive Response Recorded Date/ Time Name of Medical Power of Local Company Refrigerated Truck Driver mona (son) August 14, 2023 4:11pm Name of Medical Power of Local Company [employer]igerated [employer] Driver daughter November 20, 2023 8:28pm Advance Directives No January 19 6:12am Living Will Yes November 20 8:28pm Power of Local Company [employer]rigerated Truck Driver Yes November 20, 2023 8:28pm Advance Directive Response Recorded Date/ Time Name of Medical Power of Local Company Refrigerated [employer] Driver daughter November 20, 2023 9:28pm Advance Directives No January 19 7:12am Living Will Yes November 20 9:28pm Power of Local Company Refrigerated Truck Driver Yes November 20, 2023 9:28pm Advance Directive Response Recorded Date/ Time Advance Directives No January 19 7:12am Medications Administered Section Inactive Administered Medications - [...] Pharmaceutical Waste: Lab Pack - Given by KALI 04/06/2022 10:30 AM EDT 200 Units Other Chief Complaint and Reason for Visit Chief Complaint 1 Y FU ENCEPHALOPATHY ACUTE, FEVER, JAUNDICE FUO, TRANSAMINITIS/HYPERBILIRUBINEMIA, ENCEPHALOPA FUO, TRANSAMINITIS/HYPERBILIRUBINEMIA, ENCEPHALOPA FUO, TRANSAMINITIS/HYPERBILIRUBINEMIA, ENCEPHALOPA FUO, TRANSAMINITIS/HYPERBILIRUBINEMIA, ENCEPHALOPA FUO, TRANSAMINITIS/HYPERBILIRUBINEMIA, ENCEPHALOPA FUO, TRANSAMINITIS/HYPERBILIRUBINEMIA, ENCEPHALOPA FUO, TRANSAMINITIS/HYPERBILIRUBINEMIA, ENCEPHALOPA Reason for Visit Atherosclerosis of c oronary artery of [place] heart without angina pectoris Essential hypertension Hyperlipidemia Paroxysmal atrial fibrillation Acute encephalopathy Elevated serum creatinine Fever Hypotension Immunosuppression due to drug therapy Jaundice Transaminitis Diabetes mellitus Essential hypertension H/O coronary artery bypass surgery 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 Chief Complaint 1 Y FU ENCEPHALOPATHY ACUTE, FEVER, JAUNDICE FUO, TRANSAMINITIS/HYPERBILIRUBINEMIA, ENCEPHALOPA FUO, TRANSAMINITIS/HYPERBILIRUBINEMIA, ENCEPHALOPA FUO, TRANSAMINITIS/HYPERBILIRUBINEMIA, ENCEPHALOPA FUO, TRANSAMINITIS/HYPERBILIRUBINEMIA, ENCEPHALOPA FUO, TRANSAMINITIS/HYPERBILIRUBINEMIA, ENCEPHALOPA FUO, TRANSAMINITIS/HYPERBILIRUBINEMIA, ENCEPHALOPA FUO, TRANSAMINITIS/HYPERBILIRUBINEMIA, ENCEPHALOPA FUO/TRANSAMINITIS/HYPERBILIRUBINEMIA Reason for Visit Atherosclerosis of c oronary artery of [place] heart without angina pectoris Paroxysmal atrial fibrillation Acute encephalopathy Elevated serum creatinine Fever Hypotension Jaundice Transaminitis Acute cholangitis Allergic rhinitis Anxiety Atrial fibrillation Choledocholithiasis Coronary artery disease Debility Depression Encephalopathy Muscle spasm Overactive bladder Restless leg syndrome Restrictive lung disease Hypertension Fever Jaundice Transaminitis Chief Complaint 1 Y FU ENCEPHALOPATHY ACUTE, FEVER, JAUNDICE FUO, TRANSAMINITIS/HYPERBILIRUBINEMIA, ENCEPHALOPA FUO, TRANSAMINITIS/HYPERBILIRUBINEMIA, ENCEPHALOPA FUO, TRANSAMINITIS/HYPERBILIRUBINEMIA, ENCEPHALOPA FUO, TRANSAMINITIS/HYPERBILIRUBINEMIA, ENCEPHALOPA FUO, TRANSAMINITIS/HYPERBILIRUBINEMIA, ENCEPHALOPA FUO, TRANSAMINITIS/HYPERBILIRUBINEMIA, ENCEPHALOPA FUO, TRANSAMINITIS/HYPERBILIRUBINEMIA, ENCEPHALOPA FUO/TRANSAMINITIS/HYPERBILIRUBINEMIA GASTROENTERITIS, ACUTE FEBRILE ILLNESS Reason for Visit Atherosclerosis of c oronary artery of [place] heart without angina pectoris Paroxysmal atrial fibrillation Acute encephalopathy Elevated serum creatinine Fever Hypotension Jaundice Transaminitis Allergic rhinitis Anxiety Atrial fibrillation Coronary artery disease Debility Depression Muscle spasm Overactive bladder Restless leg syndrome Restrictive lung disease Hypertension Acute cholangitis Choledocholithiasis Encephalopathy Fever Jaundice Transaminitis Acute febrile illness Gastroenteritis Chief Complaint 1 Y FU ENCEPHALOPATHY ACUTE, FEVER, JAUNDICE FUO, TRANSAMINITIS/HYPERBILIRUBINEMIA, ENCEPHALOPA FUO, TRANSAMINITIS/HYPERBILIRUBINEMIA, ENCEPHALOPA FUO, TRANSAMINITIS/HYPERBILIRUBINEMIA, ENCEPHALOPA FUO, TRANSAMINITIS/HYPERBILIRUBINEMIA, ENCEPHALOPA FUO, TRANSAMINITIS/HYPERBILIRUBINEMIA, ENCEPHALOPA FUO, TRANSAMINITIS/HYPERBILIRUBINEMIA, ENCEPHALOPA FUO, TRANSAMINITIS/HYPERBILIRUBINEMIA, ENCEPHALOPA FUO/TRANSAMINITIS/HYPERBILIRUBINEMIA GASTROENTERITIS, ACUTE FEBRILE ILLNESS GASTROENTERITIS, ACUTE FEBRILE ILLNESS Reason for Visit Atherosclerosis of c oronary artery of [place] heart without angina pectoris Paroxysmal atrial fibrillation Acute encephalopathy Elevated serum creatinine Fever Hypotension Jaundice Transaminitis Allergic rhinitis Anxiety Atrial fibrillation Coronary artery disease Debility Depression Muscle spasm Overactive bladder Restless leg syndrome Restrictive lung disease Hypertension Acute cholangitis Choledocholithiasis Encephalopathy Fever Jaundice Transaminitis Acute febrile illness Gastroenteritis Chief Complaint GASTROENTERITIS, ACU TE FEBRILE ILLNESS GASTROENTERITIS, ACUTE FEBRILE ILLNESS 6 M FU INT LABS Reason for Visit Acute febrile illnes s Gastroenteritis SOB (shortness of breath) Atherosclerosis of coronary artery of [place] heart without angina pectoris Paroxysmal atrial fibrillation Chief Complaint GASTROENTERITIS, ACU TE FEBRILE ILLNESS GASTROENTERITIS, ACUTE FEBRILE ILLNESS 6 M FU INT LABS E ORDERS TCU FU LOWER Reason for Visit Acute febrile illnes s Gastroenteritis SOB (shortness of breath) Atherosclerosis of coronary artery of [place] heart without angina pectoris Paroxysmal atrial fibrillation Ascending cholangitis Chief Complaint 6 M FU INT LABS E ORDERS TCU FU LOWER INT LABS Reason for Visit SOB (shortness of br eath) Atherosclerosis of coronary artery of [place] heart without angina pectoris Paroxysmal atrial fibrillation Ascending cholangitis Chief Complaint 6 M FU INT LABS E ORDERS TCU FU LOWER INT LABS CHF, SOB, CARE HOME DRUG USE - MONITOR LEVELS Amb Documentation Reason for Visit SOB (shortness of br eath) Atherosclerosis of coronary artery of [place] heart without angina pectoris Paroxysmal atrial fibrillation Ascending cholangitis Chief Complaint Admit Date LABWORK September 10, 2024 5 :00am CARE HOME LAB WORK September 13 5:00am NEW CONCERN September 21, 2024 4:22pm LABWORK October 01, 2024 5:00am LABWORK October 15, 2024 6 :54am LABWORK November 12, 2024 5:00am LABWORK December 10, 2024 5:0 0am Chief Complaint Admit Date CARE HOME LAB WORK September 13 5:00am NEW CONCERN September 21, 2024 4:22pm LABWORK October 01, 2024 5:00am LABWORK October 15, 2024 6 :54am LABWORK November 12, 2024 5:00am LABWORK December 10, 2024 5:0 0am LABWORK December 24, 2024 5:0 0am Chief Complaint Admit Date LABWORK November 12, 2024 5:00am LABWORK December 10, 2024 5:0 0am LABWORK December 24, 2024 5:0 0am LABWORK January 10, 2025 5:0 0am LABWORK January 14, 2025 5:0 0am NEW CONCERN January 28, 2025 3:1 6pm Chief Complaint Admit Date LABWORK November 12, 2024 5:00am LABWORK December 10, 2024 5:0 0am LABWORK December 24, 2024 5:0 0am LABWORK January 10, 2025 5:0 0am FOLLOW UP EXAM January 10, 2025 3:0 1pm LABWORK January 14, 2025 5:0 0am NEW CONCERN January 28, 2025 3:1 6pm Chief Complaint Admit Date LABWORK November 12, 2024 5:00am LABWORK December 10, 2024 5:0 0am LABWORK December 24, 2024 5:0 0am NEW CONCERN January 09, 2025 5:25 pm LABWORK January 10, 2025 5:0 0am FOLLOW UP EXAM January 10, 2025 3:0 1pm LABWORK January 14, 2025 5:0 0am NEW CONCERN January 28, 2025 3:1 6pm Chief Complaint Admit Date LABWORK November 12, 2024 5:00am LABWORK December 10, 2024 5:0 0am LABWORK December 24, 2024 5:0 0am NEW CONCERN January 08, 2025 5:15 pm NEW CONCERN January 09, 2025 5:25 pm LABWORK January 10, 2025 5:0 0am FOLLOW UP EXAM January 10, 2025 3:0 1pm LABWORK January 14, 2025 5:0 0am NEW CONCERN January 28, 2025 3:1 6pm Additional Source Comments INFORMATION SOURCE (unrecogn ized section and content) DATE CREATED AUTHOR 08/15/2018 [facility] DATE CREATED AUTHOR AUTHOR'S ORGANIZ ATION 04/07/2022 [facility] DATE CREATED AUTHOR AUTHOR'S ORGANIZ ATION 06/02/2024 [facility] ([place]) DATE CREATED AUTHOR AUTHOR'S ORGANIZ ATION [facility]/07/[facility] Source Comments (unrecognize d section and content) In the event this informatio n is protected by the [facility] Confidentiality of Alcohol and Drug Abuse Patient Records regulations: The Federal rules restrict any use of the information to criminally investigate or prosecute any alcohol or drug abuse patient.[facility] the event this information is protected by the Federal Confidentiality of Alcohol and Drug Abuse Patient Records regulations: The Federal rules restrict any use of the information to criminally investigate or prosecute any alcohol or drug abuse patient.[facility] the event this information is protected by the Federal Confidentiality of Alcohol and Drug Abuse Patient Records regulations: The Federal rules restrict any use of the information to criminally investigate or prosecute any alcohol or drug abuse patient.[facility] the event this information is protected by the Federal Confidentiality of Alcohol and Drug Abuse Patient Records regulations: The Federal rules restrict any use of the information to criminally investigate or prosecute any alcohol or drug abuse patient.[facility] the event this information is protected by the Federal Confidentiality of Alcohol and Drug Abuse Patient Records regulations: The Federal rules restrict any use of the information to criminally investigate or prosecute any alcohol or drug abuse patient.[facility] Reason for Visit (unrecogniz ed section and content) Reason Comments New Patient Reason Comments Appointment Patient Question Reason Comments Cystoscopy-1 Urge Urinary Incontinence Specialty Diagnoses / Procedures Referred By Valerie rosaod Referred To Contact Urology / UROLOGY Diagnoses botox, 200 units Procedures CYSTOSCOPY BOTOX Tejal Rivera MD [address] [place] [address] Tejal Rivera MD [address] [place] [address] Referral ID Status Reason Start Date Expiration Date Visits Re quested Visits Authorized [id number] Closed 09/02/2021 12/01/2021 1 1 Reason Comments Orders Reason Comments Urge Urinary Incontinence Cystoscopy-1 Specialty Diagnoses / Procedures Referred By Valerie rosado Referred To Contact Urology / UROLOGY Diagnoses Urge incontinence cysto botox Procedures BOTULINUM TOXIN A PER 1 UNIT CYSTOSCOPY [id number] units Tejal Rivera MD [address] [place] [address] Tejal Rivera MD [address] [place] [address] Referral ID Status Reason Start Date Expiration Date V isits Requested Visits Authorized [id number] Authorized 04/01/2022 10/02/2022 99 99 Care Teams (unrecognized sec tion and content) Product Manufacturing Professional Relationship Specialty Start Date End Date Rosalind Rubalcava MD [address] [place] [address] PCP - General Family Practice 07/14/12 Product Manufacturing Professional Relationship Specialty Start Date End Date Rosalind Rubalcava MD [address] [place] [address] PCP - General Family Practice 07/14/12 Team Status: Active Member Role Status Dates Dr. Rosalind Rubalcava MD Family Provider Active Dr. Rosalind Rubalcava MD Primary Care Provider Active Team Status: Inactive Member Role Status Dates Dr. Rosalind Rubalcava MD Primary Care Provider, Referrin g Provider Active Katalina Torres COMMERCIAL INTERN, COMMERCIAL INTERN-C Attending Provider Active Team Status: Active Member Role Status Dates Dr. Rosalind Rubalcava MD Primary Care Provider Active Dr. Papo Morillo MD Emergency Provider Active Dr. Octavia Gruber MD Admit Provider, Attending Provider, Other Provider Active Team Status: Active Member Role Status Dates Dr. Rosalind Rubalcava MD Primary Care Provider Active Dr. Papo Morillo MD Emergency Provider Active Dr. Octavia Gruber MD Admit Provider, Other Provider Active Dr. Alee Yao DO Other Provider Active Dr. Doe Orr DO Attending Provider Active Team Status: Active Member Role Status Dates Dr. Roaslind Rubalcava MD Primary Care Provider Active Dr. Papo Morillo MD Emergency Provider Active Dr. Octavia Gruber MD Admit Provider, Other Provider Active Dr. Alee Yao DO Attending Provider, Other Provide r Active Team Status: Inactive Member Role Status Dates Dr. Rosalind Rubalcava MD Primary Care Provider Active Dr. Papo Morillo MD Emergency Provider Active Dr. Octavia Gruber MD Admit Provider, Other Provider Active Dr. Alee Yao DO Attending Provider Active Team Status: Active Member Role Status Dates Dr. Rosalind Rubalcava MD Primary Care Provider Active Dr. Papo Morillo MD Emergency Provider Active Dr. Octavia Gruber MD Admit Provider, Other Provider Active Dr. Alee Yao DO Referring Provider, Other Provide r Active Dr. Doe Orr DO Attending Provider Active Team Status: Inactive Member Role Status Dates Dr. Rosalind Rubalcava MD Primary Care Provider Active Dr. Senthil Ortiz MD Admit Provider, Attending Provid er Active Team Status: Active Member Role Status Dates Dr. Rosalind Rubalcava MD Primary Care Provider Active Dr. Enrrique Eric DO Emergency Provider Active Dr. Judson Hernandez MD Admit Provider, Attending Provider Active Team Status: Active Member Role Status Dates Dr. Rosalind Rubalcava MD Primary Care Provider Active Dr. Enrrique Eric DO Emergency Provider Active Dr. Jusdon Hernandez MD Admit Provider, Other Pro vider Active Dr. Cirilo Fine DO Attending Provider, Other Provid er Active Team Status: Inactive Member Role Status Dates Dr. Rosalind Rubalcava MD Primary Care Provider Active Dr. Enrrique Eric DO Emergency Provider Active Dr. Judson Hernandez MD Admit Provider, Other Pro vider Active Dr. Cirilo Fine DO Attending Provider Active Team Status: Inactive Member Role Status Dates Dr. Rosalind Rubalcava MD Primary Care Provider Active Katalina Torres COMMERCIAL INTERN, COMMERCIAL INTERN-C Attending Provider, Referring P samy Active Team Status: Inactive Member Role Status Dates Dr. Rosalind Rubalcava MD Primary Care Provider, Referrin g Provider Active Dr. Doe Orr DO Attending Provider Active Team Status: Inactive Member Role Status Dates Dr. Rosalind Rubalcava MD Primary Care Provider Active Dr. Lesley Lopez MD Emergency Provider Active Team Status: Inactive Member Role Status Dates Dr. Rosalind Rubalcava MD Primary Care Provider Active Dr. Lesley Lopez MD Attending Provider, Emergency Provider Active Team Status: Active Member Role Status Dates Dr. Rosalind Rubalcava MD Primary Care Provider Active Dr. Pawan Reed MD Attending Provider Active Team Status: Active Member Role Status Dates Dr. Rosalind Rubalcava MD Primary Care Provider Active Katalina Torres COMMERCIAL INTERN, COMMERCIAL INTERN-C Attending Provider Active Team Status: Active Member Role Status Dates Dr. Rosalind Rubalcava MD Primary Care Provider Active Start: September 10, 2024 Laverne VICTORIA MD Attending Provider Active Start: September 10, 2024 Team Status: Active Member Role Status Dates Dr. Rosalind Rubalcava MD Primary Care Provider Active Start: September 13, 2024 Laverne VICTORIA MD Attending Provider Active Start: September 13, 2024 Team Status: Inactive Member Role Status Dates Dr. Rosalind Rubalcava MD Primary Care Provider Active Start: September 21, 2024 End: September 21, 2024 Jing Jones COMMERCIAL INTERN, COMMERCIAL INTERN-C Attending Provider Active Start: September 21, 2024 End: September 21, 2024 Team Status: Active Member Role Status Dates Dr. Rosalind Rubalcava MD Primary Care Provider Active Start: October 01, 2024 Laverne VICTORIA MD Attending Provider Active Start: October 01, 2024 Team Status: Inactive Member Role Status Dates Dr. Rosalind Rubalcava MD Primary Care Provider Active Start: October 15, 2024 End: October 15, 2024 Laverne VICTORIA MD Attending Provider Active Start: October 15, 2024 End: October 15, 2024 Team Status: Active Member Role Status Dates Dr. Rosalind Rubalcava MD Primary Care Provider Active Start: November 12, 2024 Laverne VICTORIA MD Attending Provider Active Start: November 12, 2024 Team Status: Inactive Member Role Status Dates Dr. Rosalind Rubalcava MD Primary Care Provider Active Start: December 10, 2024 End: December 10, 2024 Laverne VICTORIA MD Attending Provider Active Start: December 10, 2024 End: December 10, 2024 Team Status: Active Member Role Status Dates Dr. Rosalind Rubalcava MD Primary Care Provider Active Start: December 24, 2024 Laverne VICTORIA MD Attending Provider Active Start: December 24, 2024 Team Status: Inactive Member Role Status Dates Dr. Rosalind Rubalcava MD Primary Care Provider Active Start: December 24, 2024 End: December 24, 2024 Laverne VICTORIA MD Attending Provider Active Start: December 24, 2024 End: December 24, 2024 Team Status: Inactive Member Role Status Dates Dr. Rosalind Rubalcava MD Primary Care Provider Active Start: January 10, 2025 End: January 10, 2025 Laverne VICTORIA MD Attending Provider Active Start: January 10, 2025 End: January 10, 2025 Team Status: Inactive Member Role Status Dates Dr. Rosalind Rubalcava MD Primary Care Provider Active Start: January 14, 2025 End: January 14, 2025 Laverne VICTORIA MD Attending Provider Active Start: January 14, 2025 End: January 14, 2025 Team Status: Inactive Member Role Status Dates Dr. Rosalind Rubalcava MD Primary Care Provider Active Start: January 28, 2025 End: January 28, 2025 Jing Jones COMMERCIAL INTERN, COMMERCIAL INTERN-C Attending Provider Active Start: January 28, 2025 End: January 28, 2025 Team Status: Active Member Role Status Dates Dr. Rosalind Rubalcava MD Primary Care Provider Active Start: February 04, 2025 Laverne VICTORIA MD Attending Provider Active Start: February 04, 2025 Team Status: Active Member Role Status Dates Dr. Rosalind Rubalcava MD Primary Care Provider Active Start: February 11, 2025 Laverne VICTORIA MD Attending Provider Active Start: February 11, 2025 Team Status: Inactive Member Role Status Dates Dr. Rosalind Rubalcava MD Primary Care Provider Active Start: January 10, 2025 End: January 10, 2025 Jing Jones COMMERCIAL INTERN, COMMERCIAL INTERN-C Attending Provider Active Start: January 10, 2025 End: January 10, 2025 Team Status: Inactive Member Role Status Dates Dr. Rosalind Rubalcava MD Primary Care Provider Active Start: January 09, 2025 End: January 09, 2025 Jing Jones COMMERCIAL INTERN, COMMERCIAL INTERN-C Attending Provider Active Start: January 09, 2025 End: January 09, 2025 Team Status: Inactive Member Role Status Dates Dr. Rosalind Rubalcava MD Primary Care Provider Active Start: January 08, 2025 End: January 08, 2025 Jing Jones COMMERCIAL INTERN, COMMERCIAL INTERN-C Attending Provider Active Start: January 08, 2025 End: January 08, 2025 Care Team (unrecognized sect ion and content) Personnel Name: ROSALIND RUBALCAVA MD Address: Address: [address] [place] [address] Name: Keiry Gutierrez PT Care Team Personnel Name: Keiry Gutierrez PT Position: P3 Scheduling - Medical Advisor Advanced Member Role: Other Name: ROSALIND RUBALCAVA MD Position: P4 Physician - Primary Care Med Service: Active Provider Member Role: Primary Care Physician Address: Address: [address] [place] [address] Care Team Related Persons Name: KONG KITCHEN Name: AUDI KITCHEN Name: AUDI KITCHEN Goals (unrecognized section and content) Goals may be documented in a n alternate section FOR RECORDS PERTAINING TO PATIENTS WHO ARE [...] BE BASED ON THE PRIMARY CLINICAL RECORDS. [facility]. provides no warranty or guarantee of the accuracy or completeness of information in this document.
[2025-03-11 07:52] LABS: Absolute Lymphocyte Count 3.97 X10^3/uL (0.83-4.51); Basophil# 0.04 X10^3/uL; Basophil% 0.5 % (0-1); Eosinophil# 0.23 X10^3/uL; Hematocrit 33.7 % (37-47); Hemoglobin 10.9 g/dL (12.0-15.0); Lymphocyte # 3.97 X10^3/ul (0.83-4.51); Lymphocyte % 51.5 % (19-41); Mean Corp Hgb Conc 32.3 g/dL (32-36); Mean Corpuscular Hgb 29.9 pg (27.0-32.0); Mean Corpuscular Volume 92.3 fL (81-99); Mean Platelet Vol. 9.7 fl (6.2-12.0); Monocyte# 0.43 X10^3/uL; Monocyte% 5.6 % (0-10); NRBC Flagged by Analyzer 0 % (0-5); Neutrophil # 3.02 X10^3/uL (2.7-7.7); Neutrophil % 39.1 % (47-70); Platelet Count 294 K/mm3 (150-450); RBC Distribution Width CV 12.5 % (11.6-14.6); Red Blood Count 3.65 M/mm3 (4.2-5.4); White Blood Count 7.7 K/mm3 (4.4-11.0)
[2025-03-11 08:07] LABS: Anion Gap 10 (5-15); BUN 22 mg/dL (4-19); BUN/Creat Ratio 21.8 RATIO (10-20); Calcium,Total 9.6 mg/dL (7.6-11.0); Carbon Dioxide 21.9 mmol/L (21.0-32.0); Chloride 107 mmol/L (98-108); EST Glomerular Filtration Rate 56 (>60); Glucose 131 mg/dL (70-99); Sodium Level 140 mmol/L (133-145)
== END ==
LOC: OLS.WHLTSB 04:00
PROVIDERS: PCP Family Medicine; Referring Provider Internal Medicine; Visit Provider Internal Medicine
DX: I10 Essential (primary) hypertension (principal); I48.0 Paroxysmal atrial fibrillation; E66.01 Morbid (severe) obesity due to excess calories
CPT/HCPCS: 36415; 80048; 85025

== ENCOUNTER → 2025-03-18 | Outpatient (REF) | payer MEDICARE, SELFPAY ==
--- OUTSIDE RECORDS SUMMARY | 2025-03-18 04:12 | XMS RPT_ITS | CCD ---
Author Organization [facility] Care Team Providers Care Financial Internship Name Role Phone BOLOGNA, TEJAL A Unavailable [...] RUBALCAVA MD Primary Care Physician Matt PT, Dr. Rosalind Ayoub Primary Care Provider Dr. Rosalind Rubalcava Referring Provider Brian HOLLEY NP-David Real Attending Provider Dr. Papo Morillo Emergency Provider [phone] Dr. Octavia Gruber Admit Provider Dr. Octavia Gruber Attending Provider Dr. Octavia Gruber Other Provider Dr. Alee Yao Other Provider Dr. Doe Orr Attending Provider Dr. Alee Yao Attending Provider Dr. Alee Yao Referring Provider Dr. Rosalind Rubalcava Primary Care Provider Dr. Rosalind Rubalcava Referring Provider ZAID Torres NP Attending Provider Dr. Papo Morillo Emergency Provider [phone] Dr. Octavia Gruber Admit Provider Dr. Octavia [...] Provider Dr. Rosalind Rubalcava Primary Care Provider 1([facility])[phone] Dr. Enrrique Eric Emergency Provider Dr. Judson Hernandez Admit Provider Dr. Judson Hernandez Other Provider Dr. Cirilo Fine Attending Provider 1([facility])[phone] Cirilo Fine Other Provider Dr. Rosalind Rubalcava Referring Provider 1([facility])[phone] Brian SENIOR BOOKKEEPER, SENIOR BOOKKEEPER-C Katalina Attending Provider Dr. Doe Orr Attending Provider 1([facility])[phone] Rosalind Rubalcava Primary Care Provider 1([facility])[phone] Dr. Rosalind Rubalcava Referring Provider 1([facility])[phone] Brian SENIOR BOOKKEEPER, SENIOR BOOKKEEPER-C Katalina Attending Provider Dr. Doe Orr Attending Provider 1([facility])[phone] Dr. Pawan Reed Attending Provider 1([facility])[phone] ROSALIND RUBALCAVA MD Attending Unavailable ROSALIND RUBALCAVA [...] Dr. Rosalind Rubalcava MD Primary Care Provider [phone] Laverne Lea MD Attending Provider UnavailDr. Rosalind Dias MD Primary Care Provider [phone] Laverne Lea MD Attending Provider Unavailtyesha Jones SENIOR BOOKKEEPER-C, Jing Attending Provider Tickreggie SENIOR BOOKKEEPER-C, Jing Attending Provider Tickreggie SENIOR BOOKKEEPER-C, Jing Attending Provider Tickreggie SENIOR BOOKKEEPER-C, Jing Attending Provider Khadar ALY, Dr. Dhaliwal Primary Care Provider Laverne Lea MD Attending Provider Unavaila ble Tickton SENIOR BOOKKEEPER-C, Jing Attending Provider Tickton SENIOR BOOKKEEPER-C, Jing Attending Provider Leonora ALY, Laverne Referring Provider Unavaila ble Oleghe OLS, Efewongbe Attending Unavailabl e Rubalcava, [...] Unavailable Oleghe OLS, Efewongbe Attending Unavailabl e Oleghe OLS, Efewongbe Referring Unavailabl e Rubalcava, Rosalind Primary Care Unavailable Oleghe, Efewongbe Attending Unavailable Rubalcava, Rosalind [...] e Rubalcava, Rosalind Primary Care Unavailable Tickton ESME Jing Attending Unavailable Rubalcava, Rosalind Primary Care Unavailable Tonny Herbert Attending Unavailable Rubalcava, Rosalind Primary Care Unavailable Enrrique Eric Attending Unavailable Rubalcava, Rosalind Primary Care Unavailable Fausto Wright Consulting Unavailable Fausto Wright Admitting Unavailable Pawan Reed Attending Unavailable Rubalcava, Rosalind Primary Care Unavailable El Best Consulting Unavailable Fausto Wright Attending Unavailable Oleghe OLS, Efewongbe Attending Unavailabl e Rubalcava, Rosalind Primary Care Unavailable Friend, Doe Attending Unavailable Khadar, Rosalind Primary Care Unavailable Rubalcava, Rosalind Referring Unavailable Oleghe OLS, Efewongbe Referring Unavailabl e Oleghe OLS, Efewongbe Attending Unavailabl e Rubalcava, Rosalind Primary Care Unavailable Oleghe OLS, Efewongbe Attending Unavailabl e Rubalcava, Rosalind Primary Care Unavailable AgyeFausto torres Admitting Unavailable Adriana, Fausto Consulting Unavailable El Best Attending Unavailable Rubalcava, Rosalind Primary Care Unavailable KitEl comer Attending Unavailable Oleghe OLS, Efewongbe Attending Unavailabl e Rubalcava, Rosalind Primary Care Unavailable Tickton SENIOR BOOKKEEPER, Jing Attending Unavailable Rubalcava, Rosalind Primary Care Unavailable Tickton SENIOR BOOKKEEPER, Jing Attending Unavailable Rubalcava, Rosalind Primary Care Unavailable Tickton SENIOR BOOKKEEPER, Jing Attending Unavailable Rubalcava, Rosalind Primary Care Unavailable Tickton SENIOR BOOKKEEPER, Jing Attending Unavailable Rubalcava, Rosalind Primary Care Unavailable Tickton SENIOR BOOKKEEPER, Jing Attending Unavailable Rubalcava, Rosalind Primary Care Unavailable Tickton SENIOR BOOKKEEPER, Jing Attending Unavailable Rubalcava, Rosalind Primary Care Unavailable Tickton SENIOR BOOKKEEPER, Jing Attending Unavailable Rubalcava, Rosalind Primary Care Unavailable Friend, Doe Consulting Unavailable Friend, Doe Attending Unavailable Rubalcava, Rosalind Referring Unavailable Rubalcava, Rosalind Primary Care Unavailable Tickton SENIOR BOOKKEEPER, Jing Attending Unavailable Rubalcava, Rosalind Primary Care Unavailable Derek, [place] Attending Unavailable Derek, Pawan Referring Unavailable Rubalcava, Rosalind Primary Care Unavailable Rubalcava, Rosalind Referring Unavailable Deric Cortez Attending Unavailable Rubalcava, Rosalind Primary Care Unavailable Friend, Doe Attending Unavailable Rubalcava, Rosalind Referring Unavailable Rubalcava, [...] Care Unavailable Rubalcava, Rosalind Primary Care Unavailable Rubalcava, Rosalind Referring Unavailable Derek, [place] Attending Unavailable Oleghe OLS, Efewongbe Attending Rosalind Moy Primary Care Unavailable Allergies Allergy Classification Reported Allergen(s) Allergy Type Date of Onset Reaction(s) Facility (20 sources) codeine; 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: [CODEINE] Drug Allergy 2 Other: See Comments [facility] Repository (20 sources) Latex; 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: [LATEX] Propensity to adverse reactions (disorder) 8 Hives [facility] Repository Comment on above: only allergic when a lready sick (6 sources) metFORMIN; 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: [METFORMIN] Drug Allergy 7 Unknown [facility] (16 sources) SITagliptin; 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: [SITAGLIPTIN] Drug Allergy 7 Unknown [facility] (20 sources) Promethazine; 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: [promethazine] Drug Allergy 3 PT UNSURE OF REACTION [facility] (20 sources) tiZANidine; 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: [tizanidine] Drug Allergy 3 SICK, DIZZINESS, Unknown [facility] (16 sources) atorvastatin Drug Allergy 3 Unknown [facility] (16 sources) insulin degludec Drug Allergy 3 Nausea [facility] (16 sources) insulin isophane Drug Allergy 3 heart burn [facility] (16 sources) liraglutide Drug Allergy 3 Nausea [facility] (17 sources) SITagliptin; 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: [sitagliptin phosphate] Drug Allergy 3 Unknown [facility] (16 sources) Anesthetics - Amide Type - Select A Allergy to substance 3 NEEDS FOLLOW-UP [facility] (16 sources) Anesthetics - Tyra Type- Parabens Allergy to substance 3 NEEDS FOLLOW-UP [facility] (1 source) atorvastatin Drug Allergy 4 [facility] (1 source) insulin degludec Drug Allergy 4 [facility] (1 source) insulin isophane Drug Allergy 4 [facility] (1 source) liraglutide Drug Allergy 4 [facility] (1 source) Promethazine Drug Allergy 4 [facility] (1 source) tiZANidine Drug Allergy 4 [facility] (1 source) Anesthetics - Amide Type - Select A Drug allergy (disorder) 4 [facility] (1 source) Anesthetics - Tyra Type- Parabens Drug allergy (disorder) 4 [facility] Rep[facility] Medications Current Medications Medication Drug Class(es) Dates Sig (Normalized) Sig (Original) acetaminophen 500 mg oral tablet (20 sources) Start: 02-18-2023 Tylenol Extra Strength 500 mg oral tablet Dose : 1,000 mg = 2 tab(s), Oral, q4h, PRN as needed for pain, # 120 tab(s), 1 Refill(s), Pharmacy: [id number], 155.5, cm, 02/11/23 10:54:00 EDT, Height, kg, 02/11/23 10:54:00 EDT, Dosing Weight Start Date: 02/18/23 Status: Ordered Start: 10-29-2022 Tylenol Extra Strength 500 mg oral tablet Dose : 1,000 mg = 2 tab(s), Oral, q4h, PRN as needed for pain, # 120 tab(s), 1 Refill(s), Pharmacy: [id number], 157, cm, 10/13/22 15:01:00 EST, Height, kg, 10/13/22 15:01:00 EST, Dosing Weight Start Date: 10/29/22 Status: Ordered Start: 05-19-2022 Start: 05-08-2021 Tylenol Extra Strength 500 mg oral tablet Dose : 1,000 mg = 2 tab(s), Oral, q4h, PRN as needed for pain, # 120 tab(s), 0 Refill(s) Start Date: 05/08/21 Status: Ordered Start: 09-05-2017 End: 11-03-2017 Start: 09-05-2017 End: 11-03-2017 take 2 tablets by mouth every eight hours as needed for pain Acetaminophen 500 MG tablet Discontinued 1000 mg PO Q8H as needed for Pain September 05, 2017 1:00am November 03, 2017 5:06pm Start: 09-05-2017 End: 11-03-2017 take 1000 mg by mouth every eight hours Acetaminophen Discontinued 1000 MG PO Q8H September 05, 2017 1:00am November 03, 2017 5:06pm Comment on above: Take 500 mg by mouth . apixaban 5 mg oral tablet (20 sources) Factor Xa Inhibitor Start: 10-25-2023 End: 04-12-2025 take 1 tablet by mouth twice daily Apixaban (Eliquis) 5 mg tablet Discontinued 5 mg PO TWICE A DAY 180 October 25, 2023 2:22pm January 10, 2025 3:20pm Start: 04-20-2023 End: 01-10-2025 Start: 04-20-2023 End: 10-25-2023 take 1 tablet [...] 13, # 60 tab(s), 11 Refill(s), Pharmacy: [facility] [id number], 155, cm, 04/08/23 11:20:00 EDT, Height, 90, kg, 04/08/23 11:20:00 EDT, Dosing Weight Start Date: 04/08/23 Stop Date: 04/02/24 Status: Ordered Start: 10-22-2021 End: 10-17-2022 Eliquis 5 mg oral tablet Dos e : 5 mg = 1 tab(s), Oral, BID, # 60 tab(s), 11 Refill(s), Pharmacy: [facility]/pharmacy #[id number], 157, cm, 10/22/21 10:32:00 EST, Height, 85, kg, 10/22/21 10:32:00 EST, Dosing Weight Start Date: 10/22/21 Stop Date: 10/17/22 Status: Ordered aspirin 81 mg delayed release oral tablet (20 sources) Platelet Aggregation Inhibitor, Nonsteroidal Anti-inflammatory Drug Start: 04-01-2024 End: 04-01-2024 Start: 08-14-2023 End: 10-24-2023 Start: 02-05-2013 End: 06-07-2023 Start: 02-05-2013 aspirin 81 mg oral delayed release tablet Dose : 81 mg = 1 tab(s), Oral, qDay, 0 Refill(s) Start Date: 02/05/13 Status: Ordered atorvastatin 40 mg oral tabl et (20 sources) HMG-CoA Reductase Inhibitor Start: 11-03-2017 End: 03-02-2018 Start: 07-27-2017 End: 09-03-2017 BP cuff (13 sources) Start: 01-20-2022 BP [...] cap(s), 0 Refill(s), 03/11/23 14:45:00 EDT, Pharmacy: [facility] [id number], UTI (urinary tract infection), 155, cm, 03/04/23 13:08:00 EDT, Height, 90.9 Start Date: 03/04/23 Stop Date: 03/11/23 Status: Ordered Start: 12-17-2022 End: 12-24-2022 cephalexin 500 mg oral capsu le Dose : 500 mg = 1 cap(s), Oral, TID, X 7 day(s), # 21 cap(s), 0 Refill(s), 12/24/22 9:33:00 EDT, Pharmacy: [facility] [id number], Atrial fibrillation Anticoagulant long-term use, 157, cm, 12/17/22 8:53:00 EDT, Height, 89.1 Start Date: 12/17/22 Stop Date: 12/24/22 Status: Ordered Start: 04-06-2022 End: 04-06-2022 cephALEXin 500 mg cap(s) (KE FLEX) Start: 02-19-2022 End: 02-26-2022 cephalexin 500 mg oral capsu le Dose : 500 mg = 1 cap(s), Oral, q8h, X 7 day(s), # 21 cap(s), 0 Refill(s), 02/26/22 13:18:00 EDT, [id number], 157, cm, 02/19/22 12:58:00 EDT, Height, 85.9 Start Date: 02/19/22 Stop Date: 02/26/22 Status: Ordered Start: 09-17-2021 End: 09-24-2021 Keflex 500 mg oral capsule D ose : 500 mg = 1 cap(s), Oral, q12h, X 7 day(s), # 14 cap(s), 0 Refill(s), 09/24/21 14:50:00 EST, Pharmacy: [facility]/pharmacy #[id number], UTI symptoms, 156.8, cm, 09/17/21 14:03:00 EST, Height, 85.6, kg, 09/17/21 14:03:00 EST, Dosing Weight Start Date: 09/17/21 Stop Date: 09/24/21 Status: Ordered Start: 09-02-2021 End: 09-02-2021 cephALEXin 500 mg cap(s) (KE FLEX) cholecalciferol 0.125 mg ora l capsule (16 sources) Vitamin D Start: 01-20-2022 DME MISCellaneous (5 sources) Start: 10-13-2023 DME MISCellane ous See Instructions, glucometer., # 1 EA, 0 Refill(s), Pharmacy: [facility] [id number], 154, cm, 08/31/23 11:39:00 EST, Height, 81, kg, 08/31/23 11:39:00 EST, Dosing Weight Start Date: 10/13/23 Status: Ordered Start: 06-17-2022 DME MISCellane ous See Instructions, glucometer., # 1 EA, 0 Refill(s), 85.7 Start Date: 06/17/22 Status: Ordered escitalopram 10 mg oral tabl et (20 sources) Serotonin Reuptake Inhibitor Start: 07-17-2024 Start: 01-06-2022 End: 05-21-2024 Start: 07-22-2021 Lexapro 10 mg oral tablet Dose : 10 mg = 1 tab(s), Oral, qDay, # 90 tab(s), 1 Refill(s), Pharmacy: [facility]/pharmacy #[id number], Recurrent depression, 157, cm, 07/22/21 15:01:00 EDT, Height, kg, 07/22/21 15:01:00 EDT, Dosing Weight Start Date: 07/22/21 Status: Ordered Gemtesa (2 sources) Start: 02-11-2023 take 1 mg by mouth once daily Gemtesa mg =, Oral, qDay, 0 Refill(s) Start Date: 02/11/23 Status: Ordered hydrALAZINE hydrochloride 25 mg oral tablet (14 sources) Arteriolar Vasodilator Start: 04-02-2024 End: 07-17-2024 Start: 04-02-2024 End: 07-17-2024 take 1 tablet [...] sites, # 9 mL, 5 Refill(s), Pharmacy: [facility] [id number], 154, cm, 03/30/24 8:57:00 EDT, Height, kg, 03/30/24 8:57:00 EDT, Dosing Weight Start Date: 03/30/24 Stop Date: 09/26/24 Status: Ordered Start: 2023 End: 02-05-2024 inject 1 dose by subcutaneous injection once daily Tresiba FlexTouch 200 units/mL 3 mL subcutaneous solution Dose : 30 unit(s) =, Subcutaneous, qDay, rotate injection sites, # 9 mL, 5 Refill(s), Pharmacy: [facility] [id number], 155, cm, 08/09/23 10:54:00 EST, Height, kg, [...] sites, # 2 EA, 5 Refill(s), Pharmacy: [facility] [id number], 157, cm, 08/25/22 16:05:00 EST, Height, kg, [...] January 22, 2021 12:22pm Start: 12-29-2018 End: 05-19-2022 Start: 12-29-2018 End: 11-23-2019 Insulin Degludec 200 unit/mL (3 mL) insulin pen Discontinued SC 9 December 29, 2018 12:00am November 23, 2019 4:41pm Comment on above: Inject 40 Units subc utaneously once daily. Insulin Degludec (Tresiba U-100 Insulin) 100 unit/mL solution (6 sources) Start: 04-01-2024 Insulin Degludec (Tresiba U-100 Insulin) 100 unit/mL solution Active 25 U SC DAILY April 01, 2024 12:00am levothyroxine sodium 0.05 mg oral tablet (20 sources) l-Thyroxine Start: 04-19-2024 Start: 03-30-2024 levothyroxine 50 mcg (0.05 mg) oral tablet Dose : 50 mcg = 1 tab(s), Oral, qDay, # 30 tab(s), 11 Refill(s), Pharmacy: [facility] [id number], Chronic low back pain Hypothyroidism, 154, cm, 03/30/24 8:57:00 EDT, Height, kg, 03/30/24 8:57:00 EDT, Dosing Weight Start Date: 03/30/24 Status: Ordered Start: 12-29-2018 End: 10-21-2021 losartan potassium 25 mg ora l tablet (20 sources) Angiotensin 2 Receptor Tawana Start: 04-12-2024 Start: 08-14-2023 End: 04-12-2024 Start: 05-17-2023 End: 04-12-2024 Losartan 100 mg Tablet Disco ntinued 25 mg PO DAILY August 14, 2023 1:00am April 12, 2024 10:35am Start: 05-17-2023 End: 08-14-2023 take 1 tablet by mouth once daily Losartan 100 mg Tablet Discontinued 100 mg PO DAILY May 17, 2023 12:00am August 14, 2023 3:58pm Start: 12-04-2021 End: 05-17-2023 Start: 05-03-2017 take 1 tablet by adrián th once daily losartan (COZAAR) 100 mg tablet Take 100 mg by mouth once daily. 4 05/03/2017 Active losartan potassi um (LOSARTAN ORAL) Take by mouth. 0 Active Comment on above: Take 100 mg by mouth once daily. Take by mouth. 24 hr metoprolol succinate 2 5 mg extended release oral tablet (20 sources) beta-Adrenergic Tawana Start: 01-05-2024 End: 04-01-2024 Start: 01-05-2024 End: 02-22-2024 take 1 tablet [...] (Rx) Start Date: 11/15/23 Status: Ordered Start: 08-14-2023 End: 10-24-2023 Start: 06-16-2023 Metoprolol Suc cinate ER 50 mg oral TABLET extended release Dose : 50 mg = 1 tab(s), Oral, qDay, # 90 tab(s), 0 Refill(s) Start Date: 06/16/23 Status: Ordered Start: 04-21-2023 End: 06-07-2023 take 2 tablets by mouth once daily Metoprolol Succinate 50 mg tablet extended release 24 hr Discontinued 25 mg PO DAILY May 13, 2023 12:00am June 07, 2023 8:58pm Start: 04-21-2023 End: 01-05-2024 Start: 04-21-2023 End: 10-24-2023 take 25 mg by mouth once daily Metoprolol Succinate Di scontinued 25 MG PO DAILY August 14, 2023 1:00am October 24, 2023 12:07pm Start: 04-20-2023 End: 04-21-2023 Metoprolol Succinate 25 mg t ablet extended release 24 hr Discontinued 50 mg PO DAILY April 20, 2023 2:46pm April 21, 2023 2:33pm Start: 10-21-2021 End: 04-21-2023 Start: 10-21-2021 End: 04-20-2023 take 1 tablet [...] qDay, # 90 tab(s), 3 Refill(s), Pharmacy: [facility]/pharmacy #[id number], Hypertension, 157, cm, 07/22/21 15:01:00 EDT, Height, kg, 07/22/21 15:01:00 EDT, Dosing Weight Start Date: 07/29/21 Status: Ordered Start: 12-26-2017 metoprolol suc cinate ER (TOPROL XL) 50 mg 24 hr tablet 0 12/26/2017 Active Start: 11-03-2017 End: 10-21-2021 Start: 10-11-2017 metoprolol suc cinate ER (TOPROL XL) 25 mg 24 hr tablet 0 10/11/2017 Active Start: 05-15-2017 End: 11-03-2017 Start: 01-08-2015 End: 11-03-2017 Metoprolol Tartrate 25 MG ta blet Discontinued 12.5 mg PO TWICE A DAY September 06, 2017 7:53pm November 03, 2017 5:03pm Start: 01-08-2015 End: 07-27-2017 take 2 tablets [...] responds, # 2 EA, 0 Refill(s), Pharmacy: [facility] [id number], 157, cm, 01/07/23 11:37:00 EDT, Height Start Date: 02/04/23 Status: Ordered nitroglycerin 0.4 mg sublingual tablet (20 sources) Nitrate Vasodilator Start: 10-22-2021 nitroglycerin 0.4 mg sublingual tablet 0 Refill(s) Start Date: 10/22/21 Status: Ordered Start: 10-21-2021 End: 04-01-2024 Start: 10-21-2021 End: 04-01-2024 Nitroglycerin (Nitrostat) 0. [...] month supply, BD UF mini pen needles [id number], DX: E11.9, # 1 EA, 11 Refill(s), Pharmacy: [facility]/pharmacy #[id number], 157.5, cm, 11/04/20 13:17:00 EST, Height, 90.7, kg, 11/04/20 13:17:00 EST, Dosing Weight Start Date: 11/04/20 Status: Ordered rOPINIRole 1 mg oral tablet (20 sources) Nonergot Dopamine Agonist Start: 05-19-2022 Start: 05-19-2022 take 2 tablets by mo uth at bedtime Ropinirole 1 mg tablet Active 2 mg PO AT BEDTIME May 19, 2022 12:00am Start: 05-19-2022 take 2 mg by mouth twice daily Ropinirole Active 2 MG PO TWICE A DAY May 19, 2022 12:00am Start: 01-26-2022 take 2 tablets by mo uth in the morning rOPINIRole 1 mg oral tablet See Instructions, Take 2 tabs in the morning and 2 tabs in the evening., # 120 tab(s), 3 Refill(s), [id number], 157, cm, 01/22/22 15:31:00 EDT, Height, kg, 01/22/22 15:31:00 EDT, Dosing Weight Start Date: 01/26/22 Status: Ordered Start: 03-25-2021 take 1 tablet by adrián three times daily rOPINIRole (REQUIP) 1 mg tablet Take 1 mg by mouth three times daily. 0 04/25/2021 Active Start: 12-29-2018 End: 05-19-2022 Start: 12-29-2018 End: 01-20-2022 take 1 tablet [...] mg by mouth t hree times daily. traMADol hydrochloride 50 mg oral tablet (20 sources) Opioid Agonist Start: 10-04-2024 End: 02-18-2025 Start: 07-17-2024 End: 01-22-2025 take 1 tablet by mouth every four hours as needed for pain Tramadol 50 mg tablet Discontinued 50 mg PO .every 4 hours as needed for pain 90 14 January 09, 2025 12:00am January 22, 2025 12:00am January 22, 2025 1:01pm Start: 07-17-2024 End: 10-04-2024 take 1 tablet by mouth four times daily as needed for pain Tramadol 50 mg tablet Discontinued 50 mg PO 4 TIMES DAILY NEEDED as needed for pain July 17, 2024 12:00am October 04, 2024 12:17pm Start: 04-26-2024 End: 08-06-2024 take 1 tablet by mouth [...] 16, 2024 12:04am Start: 09-11-2017 End: 11-03-2017 traZODone hydrochloride 150 mg oral tablet (20 sources) Serotonin Reuptake Inhibitor Start: 10-24-2023 End: 05-10-2025 take 1 tablet by mouth at bedtime Trazodone 150 mg tablet Active 150 mg PO AT BEDTIME October 24, 2023 12:19pm Start: 09-13-2023 traZODone 150 mg oral tablet Dose : 150 mg = 1 tab(s), Oral, qHS, # 90 tab(s), 0 Refill(s), Pharmacy: [facility] [id number], 154, cm, 08/31/23 11:39:00 EST, Height, kg, 08/31/23 11:39:00 EST, Dosing Weight Start Date: 09/13/23 Status: Ordered Start: 05-17-2023 traZODone 150 mg oral tablet Dose : 150 mg = 1 tab(s), Oral, qHS, # 90 tab(s), 0 Refill(s), Pharmacy: [facility] [id number], 155, cm, 04/08/23 11:20:00 EDT, Height, kg, 04/08/23 11:20:00 EDT, Dosing Weight Start Date: 05/17/23 Status: Ordered Start: 02-18-2023 traZODone 150 mg oral tablet Dose : 150 mg = 1 tab(s), Oral, qHS, # 90 tab(s), 0 Refill(s), Pharmacy: [facility] [id number], 155.5, cm, 02/11/23 10:54:00 EDT, Height, kg, 02/11/23 10:54:00 EDT, Dosing Weight Start Date: 02/18/23 Status: Ordered Start: 11-30-2022 traZODone 150 mg oral tablet Dose : 150 mg = 1 tab(s), Oral, qHS, # 90 tab(s), 0 Refill(s), Pharmacy: [facility] [id number], 157, cm, 11/19/22 15:09:00 EST, Height, kg, 11/19/22 15:13:00 EST, Dosing Weight Start Date: 11/30/22 Status: Ordered Start: 05-19-2022 End: 10-24-2023 Start: 05-19-2022 End: 10-24-2023 take 2 tablets [...] qHS, # 90 tab(s), 1 Refill(s), Pharmacy: [facility]/pharmacy #[id number], 157, cm, 04/07/22 10:54:00 EDT, Height [...] qHS, # 90 tab(s), 3 Refill(s), Pharmacy: [facility]/pharmacy #[id number], 157, cm, 12/04/21 11:32:00 EST, Height, kg, 12/04/21 11:32:00 EST, Dosing Weight Start Date: 12/04/21 Stop Date: 11/29/22 Status: Ordered Start: 10-22-2021 traZODone 150 mg oral tablet Dose : 150 mg = 1 tab(s), Oral, BID, # 60 tab(s), 11 Refill(s), Pharmacy: [facility]/pharmacy #[id number], 157, cm, 10/22/21 10:32:00 EST, Height, [...] 20, 2022 1:36pm Start: 12-29-2018 End: 05-19-2022 Start: 05-03-2017 End: 08-20-2022 take 1 tablet [...] sites, # 3 EA, 11 Refill(s), [id number], 157.5, cm, 04/08/21 14:24:00 EDT, Height, kg, 04/08/21 14:24:00 EDT, Dosing Weight Start Date: 04/08/21 Stop Date: 04/03/22 Status: Ordered Vitamin D3 125 mcg (5000 intl units) oral capsule (5 sources) Start: 09-13-20 End: 09-07-20 Vitamin D3 125 mcg (5000 intl units) oral capsule Dose : 5,000 International_Unit = 1 cap(s), Oral, qDay, # 90 cap(s), 3 Refill(s), Pharmacy: [facility] [id number], Afib Anticoagulant long-term use, 154, cm, 08/31/23 11:39:00 EST, Height, kg, 08/31/23 11:39:00 EST, Dosing Weight Start Date: 09/13/23 Stop Date: 09/07/24 Status: Ordered Start: 09-07-2022 End: 09-02-2023 Vitamin D3 125 mcg (5000 int l units) oral capsule Dose : 5,000 International_Unit = 1 cap(s), Oral, qDay, # 90 cap(s), 3 Refill(s), Pharmacy: [place] [id number], Afib Anticoagulant long-term use, 157, cm, 08/25/22 16:05:00 EST, Height, kg, 08/25/22 16:05:00 EST, Dosing Weight Start Date: 09/07/22 Stop Date: 09/02/23 Status: Ordered (20 sources) Start: 04-01-2024 Start: 08-14-2023 End: 04-01-2024 Start: 08-14-2023 End: 10-24-2023 Start: 08-14-2023 Start: 04-20-2023 End: 05-17-2023 Start: 05-19-2022 End: 05-17-2023 Start: 01-20-2022 Start: 01-20-2022 End: 01-20-2022 Start: 09-14-2017 End: 11-03-2017 Start: 09-14-2017 End: 09-14-2017 Completed/Discontinued Medications Medication Drug Class(es) Dates Sig (Normalized) Sig (Original) acetaminophen 325 mg / HYDROcodone bitartrate 5 mg oral tablet (20 sources) Opioid Agonist Start: 11-20-2023 End: 04-19-2024 Start: 11-20-2023 End: 04-19-2024 Hydrocodone-Acetaminophen 5- 325 mg tablet Discontinued 1 {tbl} PO 4 TIMES DAILY NEEDED as needed for pain November 20, 2023 1:00am April 19, 2024 5:30pm Start: 11-20-2023 Hydrocodone-Ac etaminophen Active TABLET November 20, 2023 1:00am Start: 09-21-2023 End: 09-28-2023 take 1 tablet by mouth three times daily as needed for pain [place] 325- 5 mg oral tablet Dose = 1 tab(s), Oral, TID, PRN for pain, # 21 tab(s), 0 Refill(s), Pharmacy: [place] [id number], Arthritis, 154, cm, 08/31/23 11:39:00 EST, Height, 81, kg, 08/31/23 11:39:00 EST, Dosing Weight Start Date: 09/21/23 Stop Date: 09/28/23 Status: Ordered Start: 2023 End: 09-08-2023 take 1 tablet by mouth three times daily as needed for pain [place] 325- 5 mg oral tablet Dose = 1 tab(s), Oral, TID, PRN for pain, # 90 tab(s), 0 Refill(s), Pharmacy: [facility] [place] [id number], Arthritis, 155, cm, 08/09/23 10:54:00 EST, Height, 83.4, kg, 08/09/23 10:37:00 EST, Dosing Weight Start Date: 08/09/23 Stop Date: 09/08/23 Status: Ordered Start: 04-13-2023 End: 05-13-2023 take 1 tablet by mouth three times daily as needed for pain [place] 325- 5 mg oral tablet Dose = 1 tab(s), Oral, TID, PRN for pain, # 90 tab(s), 0 Refill(s), Pharmacy: [facility] [id number], Chronic low back pain, 155.5, cm, 02/11/23 10:54:00 EDT, Height, 90.4 Start Date: 04/13/23 Stop Date: 05/13/23 Status: Ordered Start: 02-11-2023 End: 04-12-2023 take 1 tablet by mouth three times daily as needed for pain [place] 325- 5 mg oral tablet Dose = 1 tab(s), Oral, TID, PRN for pain, # 90 tab(s), 0 Refill(s), Pharmacy: [facility] [id number], Arthritis, 155.5, cm, 02/11/23 10:54:00 EDT, Height, 90.4 Start Date: 03/13/23 Stop Date: 04/12/23 Status: Ordered Start: 12-17-2022 End: 01-16-2023 take 1 tablet by mouth twice daily as needed for pain [place] 325- 5 mg oral tablet Dose = 1 tab(s), Oral, BID, PRN for pain, # 60 tab(s), 0 Refill(s), Pharmacy: [facility] [id number], Arthritis, 157, cm, 12/17/22 8:53:00 EDT, Height, 89.1, kg, 12/17/22 8:53:00 EDT, Dosing Weight Start Date: 12/17/22 Stop Date: 01/16/23 Status: Ordered Start: 05-19-2022 End: 11-10-2023 take 1-10 tablets by mouth every twelve hours as needed for pain Hydrocodone-Acetaminophen ([place]) 5-325 mg tablet Discontinued 1 {tbl} PO Q12H as needed for Pain 1-10 Or Fever May 19, 2022 10:37am November 10, 2023 3:41pm Start: 04-07-2022 End: 05-07-2022 take 1 tablet by mouth twice daily as needed for pain [place] 325- 5 mg oral tablet Dose = 1 tab(s), Oral, BID, PRN for pain, # 60 tab(s), 0 Refill(s), Pharmacy: [facility]/pharmacy #[id number], Arthritis, 157, cm, 04/07/22 10:54:00 EDT, Height, 86.3, kg, 04/07/22 10:54:00 EDT, Dosing Weight Start Date: 04/07/22 Stop Date: 05/07/22 Status: Ordered Start: 02-09-2022 End: 04-04-2022 take 1 tablet by mouth twice daily as needed for pain [place] 325- 5 mg oral tablet Dose = 1 tab(s), Oral, BID, PRN for pain, # 60 tab(s), 0 Refill(s), Pharmacy: [facility]/pharmacy #[id number], Arthritis, 157, cm, 03/05/22 14:26:00 EDT, Height, 85, kg, 03/05/22 14:26:00 EDT, Dosing Weight Start Date: 03/05/22 Stop Date: 04/04/22 Status: Ordered Start: 11-03-2021 End: 12-03-2021 take 1 tablet by mouth twice daily as needed for pain [place] 325- 5 mg oral tablet Dose = 1 tab(s), Oral, BID, PRN for pain, short term in absence of PCP, # 60 tab(s), 0 Refill(s), Pharmacy: [facility]/pharmacy #[id number], Arthritis, 157, cm, 10/22/21 10:32:00 EST, Height, 85, kg, 10/22/21 10:32:00 EST, Dosing Weight Start Date: 11/03/21 Stop Date: 12/03/21 Status: Ordered Start: 09-03-2021 End: 10-03-2021 take 1 tablet by mouth twice daily as needed for pain [place] 325- 5 mg oral tablet Dose = 1 tab(s), Oral, BID, PRN for pain, short term in absence of PCP, # 60 tab(s), 0 Refill(s), Pharmacy: [facility]/pharmacy #[id number], Arthritis, 157.6, cm, 09/03/21 11:20:00 EST, Height, 85.7, kg, 09/03/21 11:20:00 EST, Dosing Weight Start Date: 09/03/21 Stop Date: 10/03/21 Status: Ordered Start: 12-29-2020 End: 11-10-2023 Start: 12-29-2020 End: 05-19-2022 take 1 tablet [...] 5-325 mg tablet Start: 01-08-2015 End: 01-30-2015 Start: 01-08-2015 End: 01-30-2015 Oxycodone-Acetaminophen 1 TA [...] 01-08-2015 End: 01-30-2015 200 actuat albuterol 0.09 mg /actuat dry powder inhaler (16 sources) beta2-Adrenergic Agonist Start: 11-06-2018 End: 11-23-2019 Start: 11-06-2018 End: 11-23-2019 take 90 ug [...] / ipratropium bromide 0.167 mg/ml inhalation solution (16 sources) Anticholinergic, beta2-Adrenergic Agonist Start: 01-08-2015 End: 01-30-2015 Start: 01-08-2015 End: 01-30-2015 take 1 mL [...] 12:15pm 2 tabs p.o. at bedtime Start: 03-29-2018 End: 03-08-2025 Start: 03-29-2018 End: 11-23-2019 take 1 tablet [...] QID, # 120 tab(s), 0 Refill(s), Pharmacy: [facility]/pharmacy #[id number], Anxiety, 157, cm, 03/05/22 14:26:00 EDT, Height, 85, kg, 03/05/22 14:26:00 EDT, Dosing Weight Start Date: 03/05/22 Stop Date: 04/04/22 Status: Ordered Comment on above: Take 0.5 mg by mouth three times daily. amiodarone hydrochloride 200 mg oral tablet (20 sources) Antiarrhythmic Start: 07-27-2017 End: 09-06-2017 Start: 07-27-2017 End: 09-03-2017 Amiodarone 200 MG tablet Dis continued 200 mg PO 0800,1800 July 27, 2017 12:00am September 03, 2017 3:13pm Start: 07-27-2017 End: 09-06-2017 take 100 mg by mouth twice daily Amiodarone Discontinued 100 MG PO TWICE A DAY September 03, 2017 3:12pm September 06, 2017 12:33pm Start: 06-08-2017 End: 07-27-2017 amLODIPine 5 mg oral tablet (20 sources) Dihydropyridine Calcium Channel Tawana Start: 05-17-2023 End: 08-14-2023 Start: 09-06-2017 End: 11-03-2017 amoxicillin 875 mg / clavulanate 125 mg oral tablet (5 sources) Penicillin-class Antibacterial Start: 11-23-2017 amoxicillin-clavulanic acid (AUGMENTIN) 875-125 mg per tablet 0 11/23/2017 Active betamethasone 0.5 mg/ml / clotrimazole 10 mg/ml topical cream (5 sources) Azole Antifungal, Corticosteroid Start: 03-11-2017 clotrimazole-betamethasone (LOTRISONE) cream Apply to affected area twice daily. APPLY TO AFFECTED AREA 2 03/11/2017 Active Comment on above: Apply to affected ar ea twice daily. APPLY TO AFFECTED AREA bisacodyl 5 mg delayed release oral tablet (16 sources) Stimulant Laxative Start: 09-05-2017 End: 11-03-2017 Start: 09-05-2017 End: 11-03-2017 take 10 mg [...] sources) Loop Diuretic Start: 06-08-2017 End: 07-27-2017 canagliflozin 300 mg oral tablet (5 sources) Sodium-Glucose Cotransporter 2 Inhibitor Start: 05-03-2017 take 1 tablet by mouth once daily INVOKANA 300 mg tablet Take 300 mg by mouth once daily. 4 05/03/2017 Active Comment on above: Take 300 mg by mouth once daily. ciprofloxacin 500 mg oral tablet (15 sources) Quinolone Antimicrobial Start: 2023 End: 08-19-2023 citalopram 40 mg oral tablet (5 sources) Serotonin Reuptake Inhibitor take 1 tablet by mouth once daily citalopram (CELEXA) 40 mg tablet Take 40 mg by mouth once daily. 0 Active Comment on above: Take 40 mg by mouth once daily. clonazePAM 0.5 mg oral tablet (20 sources) Benzodiazepine Start: 09-05-2017 End: 03-29-2018 Start: 09-05-2017 End: 09-06-2017 take 1 tablet [...] 12 HOURS NEEDED as needed for ANXIETY September 06, 2017 1:00am September 11, 2017 5:33am Taper this medication to DC. Start: 09-05-2017 End: 03-29-2018 take 1 mg by mouth four times daily Clonazepam Discontinued 1 MG PO 4 TIMES DAILY November 03, 2017 5:06pm March 29, 2018 2:04pm Taper this medication to DC. Start: 01-08-2015 End: 09-03-2017 clopidogrel 75 mg oral table t (20 sources) P2Y12 Platelet Inhibitor Start: 01-09-2021 End: 01-22-2021 dicyclomine hydrochloride 10 mg oral capsule (7 sources) Anticholinergic Start: 04-26-2024 End: 07-17-2024 digoxin 0.125 mg oral tablet (20 sources) Cardiac Glycoside Start: 06-08-2017 End: 09-03-2017 docusate sodium 50 mg / mahi osides, long-term 8.6 mg oral tablet (16 sources) Start: 09-05-2017 End: 11-03-2017 Start: 09-05-2017 End: 11-03-2017 Sennosides-Docusate Sodium 1 EACH tablet Discontinued 1 NMA [...] 17, 2023 2:45pm fluconazole 200 mg oral tabl et (16 sources) Azole Antifungal Start: 12-29-2018 End: 11-23-2019 furosemide 20 mg oral tablet (20 sources) Loop Diuretic Start: 04-01-2024 End: 04-01-2024 Start: 10-24-2023 End: 02-22-2024 Start: 05-12-2023 End: 10-24-2023 Start: 04-15-2021 End: 05-19-2022 Comment on above: Take 20 mg by mouth once daily. 1 ml guselkumab 100 mg/ml prefilled syringe (20 sources) Interleukin-23 Antagonist Start: 08-14-2023 End: 07-17-2024 Start: 05-12-2023 End: 05-17-2023 Start: 02-29-2020 End: 03-28-2020 Tremfya 100 mg/mL subcutaneo us solution Dose : 100 mg =, Subcutaneous, q4wk, # 2 mL, 0 Refill(s) Start Date: 02/29/20 Stop Date: 03/28/20 Status: Ordered handicap placcard (13 sources) Start: 01-20-2022 End: 01-20-2022 handicap placcard Discontinu ed 0 .Route .MEDSUPPLY January 19, 2022 11:00pm January 20, 2022 1:09pm As directed Start: 01-20-2022 End: 01-20-2022 handicap placcard Discontinu ed 0 .Route .MEDSUPPLY January 20, 2022 12:00am January 20, 2022 [...] November 03, 2017 5:07pm Start: 09-11-2017 End: 11-03-2017 Start: 09-11-2017 End: 09-14-2017 Insulin Aspart U-100 [...] source for Protocol details. Start: 01-30-2015 End: 06-29-2017 Start: 01-30-2015 End: 06-08-2017 Insulin Aspart U-100 [...] sources) Insulin Analog Start: 11-03-2017 End: 12-29-2018 Start: 11-03-2017 End: 12-29-2018 Insulin Detemir U-100 (Levem ir U-100 Insulin) 100 unit/mL solution Discontinued 18 [...] Insuln.Pen Discontinued 48 U SC AT BEDTIME January 30, 2015 12:00am June 08, 2017 3:38pm Start: 01-08-2015 End: 11-03-2017 Start: 01-08-2015 End: 01-30-2015 Insulin Detemir U-100 [...] subcutaneousl y daily at bedtime. Insulin Glargine-Yfgn (16 sources) Start: 05-17-2023 End: 08-14-2023 Insulin Glargine-Yfgn [...] BEDTIME May 17, 2023 12:00am Insulin Lispro (16 sources) Insulin Analog Start: 01-08-2015 End: 01-30-2015 [...] 30, 2015 12:58pm levoFLOXacin 750 mg oral tab let (20 sources) Quinolone Antimicrobial Start: 05-17-2023 End: 06-07-2023 Start: 09-14-2017 End: 09-14-2017 Start: 09-14-2017 End: 09-14-2017 Levofloxacin 750 MG tablet D iscontinued 750 mg PO Q48@0600 5 September 14, 2017 1:00am September 14, 2017 2:33pm Lidocaine (5 sources) Antiarrhythmic, Amide Local Anesthetic [...] (XYLOCAINE) liothyronine sodium 0.005 mg oral tablet (16 sources) l-Triiodothyronine Start: 06-29-2017 End: 07-27-2017 Start: 06-29-2017 End: 07-27-2017 take 25 ug by mouth once daily Liothyronine Discontinu ed 25 MCG PO DAILY@0600 June 29, 2017 12:00am July 27, 2017 9:27pm lisinopril 5 mg oral tablet (20 sources) Angiotensin Converting Enzyme Inhibitor Start: 12-11-2017 lisinopril (ZESTRIL, PRINIVIL) 5 mg tablet 0 12/11/2017 Active Start: 09-11-2017 End: 01-20-2022 Start: 09-11-2017 End: 11-03-2017 take 1 tablet by mouth twice daily Lisinopril 10 MG tablet Discontinued 10 mg PO TWICE A DAY September 11, 2017 1:00am November 03, 2017 5:08pm Start: 09-11-2017 End: 01-20-2022 take 5 mg by mouth once daily Lisinopril Discontinued 5 MG PO daily November 03, 2017 5:05pm January 20, 2022 1:36pm Start: 01-30-2015 End: 09-06-2017 Comment on above: Take 2.5 mg by mouth once daily. loperamide hydrochloride 2 m g oral capsule (16 sources) Opioid Agonist Start: 05-16-2023 End: 04-01-2024 melatonin 3 mg oral tablet (16 sources) Start: 07-27-2017 End: 09-03-2017 Start: 07-27-2017 End: 09-03-2017 take 1 tablet by mouth at bedtime Melatonin 3 MG tablet Discontinued 3 mg PO AT BEDTIME July 27, 2017 12:00am September 03, 2017 3:13pm Start: 07-27-2017 End: 09-03-2017 menthol 0.0044 mg/mg / zinc oxide 0.2 mg/mg topical ointment (20 sources) Start: 09-05-2017 End: 11-03-2017 Start: 09-05-2017 End: 11-03-2017 Menthol-Zinc Oxide 1 APPLIC ointment Discontinued 1 NMA TP THREE TIMES A DAY September 05, 2017 1:00am November 03, 2017 5:07pm Start: 07-27-2017 End: 09-03-2017 Start: 07-27-2017 End: 09-03-2017 Menthol-Zinc Oxide (Calmosep [...] Leukotriene Receptor Antagonist Start: 12-29-2020 End: 07-17-2024 Comment on above: Take 10 mg by mouth once daily. nitrofurantoin, macrocrystals 25 mg / nitrofurantoin, monohydrate 75 mg oral capsule (5 sources) Nitrofuran Antibacterial Start: 12-30-2017 take 1 capsule by mouth twice daily nitrofurantoin monohydrate and macrocrystal (MACROBID) 100 mg capsule Take 1 capsule by mouth twice daily. 14 capsule 0 12/30/2017 Active Comment on above: Take 1 capsule by [facility] twice daily. Nut.Tx.Gluc Intol,Lf,Soy-Fiber (Glucerna 1.2 Oswald) 120 ML Liquid (13 sources) Start: 09-14-2017 End: 09-14-2017 take 1 mL by mouth four times daily Nut.Tx.Gluc Intol,Lf,Soy-Fiber (Glucerna 1.2 Oswald) 120 ML Liquid Discontinued 120 mL PO 4 TIMES DAILY September 14, 2017 1:00am September 14, 2017 2:33pm Start: 09-14-2017 End: 09-14-2017 take 1 mL by mouth four times daily Nut.Tx.Gluc Intol,Lf,Soy-Fiber (Glucerna 1.2 Oswald) 120 ML Liquid Discontinued 120 ML PO 4 TIMES DAILY September 14, 2017 12:00am September 14, 2017 1:33pm Start: 09-14-2017 End: 09-14-2017 take 1 mL by mouth four times daily Nut.Tx.Gluc Intol,Lf,Soy-Fiber (Glucerna 1.2 Oswald) 120 ML Liquid Discontinued 120 ML PO [...] e Antifu ngal Start: 12-29-2018 End: 11-23-2019 Start: 12-29-2018 End: 11-23-2019 Nystatin 100,000 unit/gram p owder Discontinued 1 NMA TOPICAL THREE TIMES A DAY December 29, 2018 12:00am November 23, 2019 4:39pm Start: 12-29-2018 End: 11-23-2019 Nystatin Discontinued 1 APPL IC TOPICAL THREE TIMES A DAY December 29, 2018 12:00am November 23, 2019 4:39pm Start: 12-29-2018 End: 11-23-2019 Start: 07-27-2017 End: 09-03-2017 Start: 07-27-2017 End: 09-03-2017 Nystatin (Nyamyc) 1 APPLIC b ottle Discontinued 1 NMA TOPICAL THREE TIMES A DAY July 27, 2017 12:00am September 03, 2017 3:13pm Please contact the information source for Protocol details. Start: 07-27-2017 End: 09-03-2017 Nystatin (Nyamyc) 1 APPLIC b ottle Discontinued 1 APPLIC TOPICAL THREE TIMES A DAY July 27, 2017 12:00am September 03, 2017 3:13pm Start: 07-27-2017 End: 09-03-2017 omeprazole 40 mg delayed rel ease oral capsule (14 sources) Proton Pump Inhibitor Start: 04-19-2024 End: 07-17-2024 ondansetron 8 mg disintegrat ing oral tablet (13 sources) Serotonin-3 Receptor Antagonist Start: 08-15-2023 End: 04-01-2024 oxybutynin chloride 5 mg ora l tablet (16 sources) Cholinergic Muscarinic Antagonist Start: 06-29-2017 End: 09-03-2017 oxyCODONE hydrochloride 5 mg oral tablet (16 sources) Opioid Agonist Start: 06-08-2017 End: 06-29-2017 pantoprazole 40 mg delayed release oral tablet (20 sources) Proton Pump Inhibitor Start: 11-10-2023 End: 04-01-2024 Start: 11-10-2023 Pantoprazole A ctive MG PO November 10, 2023 1:00am Start: 06-16-2023 pantoprazole 4 0 mg oral enteric coated tablet Dose : 40 mg = 1 tab(s), Oral, qDay, # 30 tab(s), 0 Refill(s), Pharmacy: [facility]/pharmacy #[id number], Ascending cholangitis Elevated LFTs, 155, cm, 06/16/23 13:11:00 EDT, Height, kg, 06/16/23 12:56:00 EDT, Dosing Weight Start Date: 06/16/23 Status: Ordered Start: 01-08-2015 End: 09-03-2017 Comment on above: Take 40 mg by mouth twice daily. polyethylene glycol 3350 170 00 mg powder for oral solution (16 sources) Osmotic Laxative Start: 09-05-2017 End: 11-03-2017 microencapsulated potassium chloride 20 meq extended release oral tablet (20 sources) Start: 09-11-2017 End: 11-03-2017 Start: 06-08-2017 End: 06-29-2017 prednisoLONE acetate 10 mg/ml ophthalmic suspension (16 sources) Corticosteroid Start: 12-29-2020 End: 02-19-2021 promethazine hydrochloride 25 mg oral tablet (5 sources) Phenothiazine take 1 tablet by mouth every six hours as needed promethazine (PHENERGAN) 25 mg tablet Take 25 mg by mouth every 6 hours as needed. 0 Active Comment on above: Take 25 mg by mouth every 6 hours as needed. QUEtiapine 25 mg oral tablet (20 sources) Atypical Antipsychotic Start: 09-14-2017 End: 11-03-2017 Start: 09-14-2017 End: 11-03-2017 Quetiapine 25 MG tablet Disc ontinued 12.5 mg PO AT BEDTIME September 14, [...] 0 11/22/2017 Active Start: 11-03-2017 End: 03-29-2018 rosuvastatin calcium 20 mg o ral tablet (20 sources) HMG-CoA Reductase Inhibitor Start: 05-03-2017 End: 07-27-2017 Comment on above: Take 20 mg by mouth once daily. sertraline 50 mg oral tablet (20 sources) Serotonin Reuptake Inhibitor Start: 11-03-2017 End: 03-29-2018 simvastatin 40 mg oral table t (20 sources) HMG-CoA Reductase Inhibitor Start: 01-08-2015 End: 01-30-2015 Comment on above: Take 40 mg by mouth daily at bedtime. sucralfate 1000 mg oral tabl et (7 sources) Aluminum Complex Start: 04-19-2024 End: 07-17-2024 tiZANidine 4 mg oral capsule (20 sources) Central alpha-2 Adrenergic Agonist Start: 11-10-2023 End: 04-01-2024 Start: 05-12-2023 End: 10-24-2023 Start: 03-11-2021 tiZANidine 4 m g oral tablet Dose : 4 mg = 1 tab(s), Oral, q8h, # 90 tab(s), 0 Refill(s) Start Date: 03/11/21 Status: Ordered topiramate 50 mg oral tablet (20 sources) Start: 01-20-2022 End: 10-24-2023 Start: 01-20-2022 End: 10-24-2023 take 50 mg by mouth twice daily Topiramate Discontinued 50 MG PO TWICE A DAY January 20, 2022 12:00am October 24, 2023 12:07pm Start: 09-03-2021 End: 04-01-2024 24 hr trospium chloride 60 mg extended release oral capsule (5 sources) Cholinergic Muscarinic Antagonist Start: 10-06-2017 take 1 capsule by mouth once daily Trospium (SANCTURA SR) 60 mg cp24 Take 1 capsule by mouth once daily. 30 capsule 11 10/06/2017 Active Comment on above: Take 1 capsule by [facility] once daily. valsartan 320 mg oral tablet (20 sources) Angiotensin 2 Receptor Tawana Start: 09-06-2017 End: 11-03-2017 Start: 09-05-2017 End: 09-06-2017 vancomycin 125 mg oral capsule (16 sources) Glycopeptide Antibacterial Start: 01-08-2015 End: 01-30-2015 24 hr venlafaxine 150 mg extended release oral capsule (5 sources) Serotonin and Norepinephrine Reuptake Inhibitor Start: 04-26-2017 take 1 capsule by mouth once daily venlafaxine XR (EFFEXOR XR) 150 mg 24 hr capsule Take 150 mg by mouth once daily. 12 04/26/2017 Active Comment on above: Take 150 mg by mouth once daily. Vibegron (20 sources) Start: 08-14-2023 End: 02-22-2024 Start: 08-14-2023 End: 02-22-2024 take 1 tablet [...] tablet (20 sources) Start: 01-20-2022 End: 05-19-2022 Start: 12-29-2018 End: 10-21-2021 Vitamin D3 5000 intl units (125 mcg) oral capsule (5 sources) Start: 03-11-2021 End: 03-06-2022 Vitamin D3 5000 intl units (125 mcg) oral capsule Dose : 5,000 International_Unit = 1 cap(s), Oral, qDay, # 90 cap(s), 3 Refill(s), [id number], Afib Anticoagulant long-term use, 158, cm, 02/10/21 13:15:00 EDT, Height, kg, 03/11/21 12:33:00 EDT, Dosing Weight Start Date: 03/11/21 Stop Date: 03/06/22 Status: Ordered warfarin sodium 5 mg oral tablet (20 sources) Vitamin K Antagonist Start: 05-19-2022 End: 04-20-2023 Start: 01-22-2022 warfarin 5 mg oral tablet Dose : 5 mg = 1 tab(s), Oral, qDay, # 30 tab(s), 5 Refill(s), [id number], 157, cm, 01/22/22 15:31:00 EDT, Height Start Date: 01/22/22 Status: Ordered Start: 09-16-2021 warfarin 2.5 m g oral tablet Dose : 2.5 mg = 1 tab(s), Oral, qDay, # 90 tab(s), 1 Refill(s), [id number], 157.6, cm, 09/03/21 11:20:00 EST, Height, kg, 09/03/21 11:20:00 EST, Dosing Weight Start Date: 09/16/21 Status: Ordered Start: 07-29-2021 warfarin 3 mg oral tablet See Instructions, 1 tab(s) Oral Mon, Tue, Tue, # 15 tab(s), 3 Refill(s), Pharmacy: [facility]/pharmacy #[id number], 157, cm, 07/22/21 15:01:00 EDT, Height, kg, 07/22/21 15:01:00 EDT, Dosing Weight Start Date: 07/29/21 Status: Ordered Start: 10-18-2017 take 3 mg by mouth once daily warfarin (COUMADIN) 2.5 mg tablet Take 3 mg by mouth once daily. 0 10/18/2017 Active Start: 07-27-2017 End: 05-19-2022 Start: 07-27-2017 End: 11-03-2017 take 1 tablet by mouth once daily Warfarin 2 MG tablet Discontinued 2 mg PO DAILY@0 September 03, 2017 3:12pm November 03, 2017 5:08pm Start: 07-27-2017 End: 05-19-2022 take 2.5 mg by mouth once daily Warfarin Discontinued 2.5 MG PO [id number] 03, 2017 5:01pm May 19, 2022 10:40am Start: 06-29-2017 End: 07-27-2017 Start: 06-29-2017 End: 07-27-2017 Start: 06-29-2017 End: 07-27-2017 take 1 tablet by mouth once daily Warfarin (Jantoven) 2.5 MG tablet Discontinued 2.5 mg PO DAILY@0 June 29, 2017 12:00am July 27, 2017 9:27pm Start: 06-08-2017 End: 06-29-2017 Start: 06-08-2017 End: 06-29-2017 Warfarin (Coumadin (Pbkc)) 2 MG tablet Discontinued 2 mg PO [id number] 08, 2017 12:00am June 29, 2017 8:44pm Start: 04-09-2017 End: 06-29-2017 Warfarin (Coumadin (Pbkc)) 2 MG tablet Discontinued 2 MG PO [id number] 08, 2017 12:00am June 29, 2017 8:44pm Start: 01-08-2015 End: 01-31-2015 Start: 01-08-2015 End: 06-29-2017 Start: 01-08-2015 End: 01-31-2015 Warfarin (Jantoven) 2 MG tab let Discontinued 2 mg PO SuWeFr@1700 0 January 30, 2015 12:00am January 31, 2015 10:01am Comment on above: TAKE 1 TABLET BY ADRIÁN TH 5 DAYS A WEEK - SUN, TUES, WED, FRID & SAT Take 3 mg by mouth o nce daily. zolpidem tartrate 10 mg oral tablet (20 sources) gamma-Aminobutyric Acid-ergic Agonist Start: 11-03-2017 End: 05-22-2020 Start: 11-03-2017 End: 05-22-2020 Start: 05-08-2017 End: 05-22-2020 take 1 tablet by mouth at bedtime Zolpidem 10 mg tablet Discontinued 10 mg PO AT BEDTIME November 03, 2017 1:00am May 22, 2020 2:50pm Problems Active Problems Problem Classification Problem Date Documented Da te Episodic/Chronic Abdominal pain (16 sources) Abdominal pain; 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: [Generalized abdominal pain] 08-31-2023 Episodic Anxiety disorders (20 sources) Anxiety; 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: [Anxiety disorder, unspecified] Onset: 4 01-27-2021 Chronic Biliary tract disease (20 sources) Acute cholangitis ; 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: [Other cholangitis] 05-17-2023 Chronic Cardiac dysrhythmias (20 sources) Atrial fibrillation; 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: [Paroxysmal atrial fibrillation] Onset: 5 04-30-2020 Chronic Cardiac dysrhythmias (16 sources) Bradycardia; 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: [Bradycardia, unspecified] 09-22-2017 Episodic Complications of surgical procedures or medical care (16 sources) Wound dehiscence; 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: [Disruption of external operation (surgical) wound, not elsewhere classified, initial encounter] 09-23-2017 Episodic Congestive heart failure; nonhypertensive (13 sources) Congestive heart failure; 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: [Heart failure, unspecified] Onset: 4 12-14-2023 Chronic Coronary atherosclerosis and other heart disease (20 sources) Coronary atherosclerosis; 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: [Atherosclerotic heart disease of [place] coronary artery without angina pectoris] 12-29-2018 Chronic [...] [Fever, unspecified] 05-14-2023 Episodic Gastritis and duodenitis (7 sources) Gastritis; 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: [Gastritis, unspecified, without bleeding] 04-27-2024 Episodic Genitourinary symptoms and ill-defined conditions (20 sources) Urge incontinence of urine; 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: [Urge incontinence] Onset: 7 Chronic Comment on above: has bladder stimulat or Genitourinary symptoms and ill-defined conditions (9 sources) Nocturia; 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: [Nocturia] Episodic Headache; including migraine (10 sources) Headache 09-02-2017 Episodic Intestinal obstruction without hernia (7 sources) Fecal impaction; 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: [Fecal impaction] 04-16-2024 Episodic Malaise and fatigue (20 sources) Asthenia; 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: [Fatigue] Onset: 4 07-11-2017 Episodic Mood disorders (20 sources) Depressive disorder; 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: [Depression] Onset: 4 09-28-2019 Chronic Nausea and vomiting (4 sources) Nausea; 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: [Vomiting] 08-31-2023 Episodic Noninfectious gastroenteritis (20 sources) Gastroenteritis; 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: [Noninfective gastroenteritis and colitis, unspecified] 08-14-2023 Episodic Nonspecific chest pain (20 sources) Chest pain; 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: [Chest pain, unspecified] Onset: 4 05-28-2017 Episodic Osteoarthritis (10 sources) Arthritis 11-21-2014 Chronic Other aftercare (20 sources) Long-term current use of anticoagulant; 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: [senior care (current) use of anticoagulants] 04-30-2020 Episodic Other aftercare (17 sources) Immunosuppression; 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: [Immunosuppression due to drug therapy] 05-13-2023 Episodic Other aftercare (1 source) 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; 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: [Long-term (current) use of anticoagulants] 05-17-2023 Episodic Other aftercare (3 sources) Patient encounter status; 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: [Encounter for therapeutic drug level monitoring] 12-14-2023 Episodic Other aftercare (7 sources) Long-term current use of diuretic; 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: [Encounter for therapeutic drug level monitoring] 12-14-2023 Episodic Other circulatory disease (16 sources) Low blood pressure; 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: [Hypotension, unspecified] 05-13-2023 Episodic Other circulatory disease (4 sources) Hypotension, unspecified; 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: [Hypotension, unspecified] 05-17-2023 Episodic Other connective tissue disease (15 sources) Spasm; 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: [Other muscle spasm] 05-17-2023 Episodic Other connective tissue disease (3 sources) Other muscle spasm; 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: [Spasm of muscle] 06-10-2023 Episodic Other connective tissue disease (3 sources) Bursitis of right hip 04-08-2023 Episodic Other diseases of bladder and urethra (19 sources) Overactive bladder; 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: [Overactive bladder] Onset: 8 05-17-2023 Chronic Other diseases of bladder and urethra (5 sources) Overactive bladder; 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: [Overactive bladder] Onset: 7 05-23-2017 Chronic Other ear and sense organ disorders (10 sources) Unilateral earache 09-02-2017 Episodic Other endocrine disorders (2 sources) Increased secretion of gastrin; 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: [Increased secretion of gastrin] Onset: Chronic Other fractures (11 sources) Compression fracture of lumbar spine; 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: [Wedge compression fracture of fourth lumbar vertebra, initial encounter for closed fracture] 11-20-2023 Episodic Other gastrointestinal disorders (10 sources) Constipation 11-21-2014 Episodic Other gastrointestinal disorders (10 sources) Diarrhea 12-29-2014 Episodic Other gastrointestinal disorders (1 source) Therapeutic opioid induced constipation 05-08-2024 Episodic Other gastrointestinal disorders (7 sources) Encopresis ; 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: [Full incontinence of feces] 04-16-2024 Episodic Other gastrointestinal disorders (7 sources) Acute constipation; 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: [Constipation, unspecified] 04-16-2024 Episodic Other gastrointestinal disorders (1 source) Diarrhea, unspecified; 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: [Diarrhea, unspecified] Onset: Episodic Other hereditary and degenerative nervous system conditions (15 sources) Restless legs; 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: [Restless legs syndrome] 05-17-2023 Chronic Other hereditary and degenerative nervous system conditions (4 sources) Restless legs syndrome; 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: [Restless legs syndrome (RLS)] Onset: 5 06-10-2023 Chronic Other inflammatory condition of skin (20 sources) Psoriasis; 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: [Psoriasis, unspecified] Onset: 3 05-08-2019 Chronic Other injuries and conditions due to external causes (1 source) Infected hematoma 12-01-2023 Episodic Other liver diseases (20 sources) Enzyme level - finding; 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: [Elevated transaminase measurement] 05-13-2023 Episodic Other liver diseases (16 sources) Jaundice; 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: [Unspecified jaundice] 05-13-2023 Episodic Other liver diseases (7 sources) Unspecified jaundice; 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: [Jaundice, unspecified, not of ] 05-17-2023 Episodic Other lower respiratory disease (16 sources) Restrictive lung disease; 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: [Other disorders of lung] 01-09-2018 Episodic Other lower respiratory disease (3 sources) Other disorders of lung; 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: [Other diseases of lung, not elsewhere classified] 06-10-2023 Episodic Other lower respiratory disease (12 sources) Dyspnea; 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: [Shortness of breath] 10-24-2023 Episodic Other lower respiratory disease (5 sources) Shortness of breath; 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: [Shortness of breath] 10-24-2023 Episodic Other nervous system disorders (20 sources) Disorder of brain; 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: [Encephalopathy, unspecified] 05-13-2023 Chronic Other nervous system disorders (7 sources) Encephalopathy, unspecified; 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: [Encephalopathy, unspecified] 05-17-2023 Chronic Other nervous system disorders (6 sources) Chronic pain; 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: [Other chronic pain] 01-09-2025 Chronic Other nervous system disorders (2 sources) Tremor 08-31-2023 Episodic Other non-traumatic joint disorders (5 sources) Shoulder pain 12-17-2022 Episodic Other nutritional; endocrine; and metabolic disorders (20 sources) Morbid obesity; 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: [Morbid (severe) obesity due to excess calories] 09-22-2017 Chronic Other nutritional; endocrine; and metabolic disorders (2 sources) Morbid (severe) obesity due to excess calories; 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: [Morbid (severe) obesity due to excess calories] Onset: 5 Chronic Other nutritional; endocrine; and metabolic disorders (2 sources) Unintentional weight loss 08-31-2023 Episodic Other screening for suspected conditions (not mental disorders or infectious disease) (16 sources) CT of chest abnormal; 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: [Abnormal findings on diagnostic imaging of other specified body structures] 05-12-2023 Chronic Other screening for suspected conditions (not mental disorders or infectious disease) (20 sources) INR raised; 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: [Cardiovascular stress test abnormal] 12-17-2022 Episodic Other upper respiratory disease (15 sources) Allergic rhinitis; 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: [Allergic rhinitis, unspecified] [...] above: non compliant CPAP Residual codes; unclassified (16 sources) Obstructive sleep apnea syndrome; 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: [Obstructive sleep apnea (adult) (pediatric)] 09-22-2017 Chronic Residual codes; unclassified (20 sources) Insomnia; 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: [Insomnia, unspecified] 09-28-2019 Episodic Residual codes; unclassified (16 sources) Delirium; 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: [Disorientation, unspecified] 05-12-2023 Episodic Residual codes; unclassified (9 sources) Edema of lower extremity; 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: [Localized edema] 12-28-2023 Episodic Residual codes; unclassified (6 sources) Acute pain; 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: [Pain, unspecified] 01-09-2025 Episodic Skin and subcutaneous tissue infections (6 sources) Cellulitis of upper limb; 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: [Cellulitis of leg, excluding foot] 12-17-2022 Episodic Spondylosis; intervertebral disc disorders; other back problems (11 sources) Chronic low back pain; 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: [Low back pain] 08-15-2020 Episodic Substance-related disorders (10 sources) Continuous opioid dependence; 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: [Opioid dependence, uncomplicated] Onset: 2 07-24-2012 Chronic Substance-related disorders (16 sources) Benzodiazepine withdrawal; 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: [Sedative, hypnotic or anxiolytic use, unspecified with withdrawal, unspecified] 05-12-2023 Episodic Superficial injury; contusion (11 sources) Hematoma of lower limb; 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: [Contusion [...] Documented Da te Episodic/Chronic Biliary tract disease (19 sources) Common bile duct calculus; 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: [Calculus [...] source) Hypokalemia; 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: [Hypokalemia] Onset: 09-27-2024 Episodic Nutritional deficiencies (1 source) Vitamin deficiency, unspecified; 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: [Vitamin deficiency, unspecified] Onset: 07-06-2024 Episodic Other aftercare (1 source) senior care (current) use of insulin; 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: [super[employer] (current) use of insulin] Onset: 04-12-2024 Episodic Other gastrointestinal disorders (1 source) Constipation, [...] lymphocyte countOrd ered By: Laverne Lea on 03-11-2025 Lymphocytes Auto (Unsp spec) [#/Vol] 3.97 10*3/uL 0.83-4.51 [facility] Anion gap in Serum or Plasma Ordered By: Laverne Lea on 03-11-2025 Anion gap [Moles/Vol] 10 mmol/L 5-15 [facility] Automated lymphocyte count a s percentage of total leukocytesOrdered By: Laverne Lea on 03-11-2025 Lymphocytes/100 WBC Auto (Unsp spec) 51.5 % High 19-41 [facility] BUN/creatinine ratioOrdered By: Laverne Lea on 03-11-2025 Urea nitrogen/Creatinine [Mass ratio] 21.8 mg/mg High 10-20 [facility] Basophil percentageOrdered B y: Laverne Lea on 03-11-2025 Basophils/100 WBC (Bld) 0.5 % 0-1 [facility] Carbon dioxide, total [Moles /volume] in Central venous bloodOrdered By: Laverne Lea on 03-11-2025 CO2 [Moles/Vol] 21.9 mmol/L 21.0-32.0 [facility] Chloride assayOrdered By: Leonora Lea on 03-11-2025 Chloride [Moles/Vol] 107 mmol/L 98-108 [facility] Eosinophil percentageOrdered By: Laverne Lea on 03-11-2025 Eosinophils/100 WBC (Bld) 3.0 % 0-5 [facility] Erythrocyte distribution wid th ratioOrdered By: Laverne Lea on 03-11-2025 Erythrocyte distribution width (RBC) [Ratio] 12.5 % 11.6-14.6 [facility] Erythrocyte distribution wid th standard deviationOrdered By: Laverne Lea on 03-11-2025 Erythrocyte distribution width (RBC) [Ratio] 42.0 fl 35.1-43.9 [facility] Glomerular filtration rate ( GFR) estimation/1.73 sq m using serum, plasma, or whole bOrdered By: Laverne Lea on 03-11-2025 GFR/1.73 sq M.predicted among non-blacks MDRD (S/P/Bld) [Vol rate/Area] 56 mL/min/{1.73_m2} Low >60 [facility] Hematocrit Auto (Bld) [Volum e fraction]Ordered By: Laverne Lea on 03-11-2025 Hematocrit (Bld) [Volume fraction] 33.7 % Low 37-47 [facility] Hemoglobin measurementOrdere d By: Laverne Lea on 03-11-2025 Hemoglobin (Bld) [Mass/Vol] 10.9 g/dL Low 12.0-15.0 [facility] Immature granulocytes/100 WB C Auto (Bld)Ordered By: Laverne Lea on 03-11-2025 Immature granulocytes/100 WBC (Bld) 0.300 % 0.0-0.9 [facility] MCV (mean corpuscular volume ) determinationOrdered By: Laverne Lea on 03-11-2025 MCV (RBC) [Entitic vol] 92.3 fL 81-99 [facility] Mean corpuscular hemoglobin (MCH) determinationOrdered By: Laverne Lea 03-11-2025 MCH (RBC) [Entitic mass] 29.9 pg 27.0-32.0 [facility] Monocyte percentageOrdered B y: Laverne Lea on 03-11-2025 Monocytes/100 WBC (Bld) 5.6 % 0-10 [facility] Neutrophil percentageOrdered By: Laverne Moraleznetoayo on 03-11-2025 Neutrophils/100 WBC (Bld) 39.1 % Low 47-70 [facility] Platelet countOrdered By: Leonora fatouernesto Lea on 03-11-2025 Platelets (Bld) [#/Vol] 294 10*3/uL 150-450 [facility] Potassium measurement (mass/ volume)Ordered By: Laverne Lea on 03-11-2025 Potassium (Unsp spec) [Mass/Vol] 4.0 mmol/L 3.3-5.1 [facility] RBC Auto (Bld) [#/Vol]Ordere d By: Laverne Lea on 03-11-2025 RBC (Bld) [#/Vol] 3.65 10*6/uL Low 4.2-5.4 [facility] Serum creatinine measurement (mass/volume)Ordered By: Laverne Lea on 03-11-2025 Creatinine [Mass/Vol] 1.00 mg/dL 0.70-1.20 [facility] Serum glucose measurement (m ass/volume)Ordered By: Laverne Lea on 03-11-2025 Glucose [Mass/Vol] 131 mg/dL High 70-[address] [facility] Serum or plasma calcium inga urement (mass/volume)Ordered By: Laverne Lea on 03-11-2025 Calcium [Mass/Vol] 9.6 mg/dL 7.6-11.[address] [facility] Serum or plasma urea nitroge n measurement (mass/volume)Ordered By: Laverne Lea on 03-11-2025 Urea nitrogen [Mass/Vol] 22 mg/dL High 4-19 [facility] Sodium levelOrdered By: Antonette Lea on 03-11-2025 Sodium [Moles/Vol] 140 mmol/L 133-[address] [facility] White blood cell (WBC) count Ordered By: Laverne Lea on 03-11-2025 WBC (Bld) [#/Vol] 7.7 10*3/uL 4.4-11.[address] [facility] Absolute lymphocyte countOrd ered By: Antonettenaginate Moraleznetoayo on 03-06-2025 Lymphocytes Auto (Unsp spec) [#/Vol] 1.67 10*3/uL 0.83-4.51 [facility] Anion gap in Serum or Plasma Ordered By: Laverne Lea on 03-06-2025 Anion gap [Moles/Vol] 11 mmol/L 5-15 [facility] Automated lymphocyte count a s percentage of total leukocytesOrdered By: Laverne Lea on 03-06-2025 Lymphocytes/100 WBC Auto (Unsp spec) 24.9 % 19-41 [facility] BUN/creatinine ratioOrdered By: fatoucliffordnate Lea on 03-06-2025 Urea nitrogen/Creatinine [Mass ratio] 19.5 mg/mg 10-20 [facility] Basophil percentageOrdered B y: Laverne Moraleznetoayo on 03-06-2025 Basophils/100 WBC (Bld) 0.4 % 0-1 [facility] Carbon dioxide, total [Moles /volume] in Central venous bloodOrdered By: Laverne Lea on 03-06-2025 CO2 [Moles/Vol] 22.4 mmol/L 21.0-32.0 [facility] Chloride assayOrdered By: Leonora fatouernesto Lea on 03-06-2025 Chloride [Moles/Vol] 100 mmol/L 98-108 [facility] Eosinophil percentageOrdered By: beverly Moraleznetoayo on 03-06-2025 Eosinophils/100 WBC (Bld) 0.4 % 0-5 [facility] Erythrocyte distribution wid th ratioOrdered By: beverly Lea on 03-06-2025 Erythrocyte distribution width (RBC) [Ratio] 12.4 % 11.6-14.6 [facility] Erythrocyte distribution wid th standard deviationOrdered By: fatoucliffordnate Lea on 03-06-2025 Erythrocyte distribution width (RBC) [Ratio] 41.1 fl 35.1-43.9 [facility] Glomerular filtration rate ( GFR) estimation/1.73 sq m using serum, plasma, or whole bOrdered By: Laverne Lea on 03-06-2025 GFR/1.73 sq M.predicted among non-blacks MDRD (S/P/Bld) [Vol rate/Area] 60 mL/min/{1.73_m2} >60 [facility] Hematocrit Auto (Bld) [Volum e fraction]Ordered By: Laverne Lea on 03-06-2025 Hematocrit (Bld) [Volume fraction] 33.8 % Low 37-47 [facility] Hemoglobin measurementOrdere d By: Laverne Lea on 03-06-2025 Hemoglobin (Bld) [Mass/Vol] 11.4 g/dL Low 12.0-15.0 [facility] Immature granulocytes/100 WB C Auto (Bld)Ordered By: Laverne Lea on 03-06-2025 Immature granulocytes/100 WBC (Bld) 0.300 % 0.0-0.9 [facility] MCV (mean corpuscular volume ) determinationOrdered By: Laverne Lea on 03-06-2025 MCV (RBC) [Entitic vol] 90.1 fL 81-99 [facility] Mean corpuscular hemoglobin (MCH) determinationOrdered By: beverly Lea on 03-06-2025 MCH (RBC) [Entitic mass] 30.4 pg 27.0-32.0 [facility] Monocyte percentageOrdered B y: Laverne Lea on 03-06-2025 Monocytes/100 WBC (Bld) 8.9 % 0-10 [facility] Neutrophil percentageOrdered By: beverly Lea on 03-06-2025 Neutrophils/100 WBC (Bld) 65.1 % 47-70 [facility] Platelet countOrdered By: Leonora Lea on 03-06-2025 Platelets (Bld) [#/Vol] 196 10*3/uL 150-450 [facility] Potassium measurement (mass/ volume)Ordered By: Laverne Lea on 03-06-2025 Potassium (Unsp spec) [Mass/Vol] 4.2 mmol/L 3.3-5.1 [facility] RBC Auto (Bld) [#/Vol]Ordere d By: Laverne Lea on 03-06-2025 RBC (Bld) [#/Vol] 3.75 10*6/uL Low 4.2-5.4 [facility] Serum creatinine measurement (mass/volume)Ordered By: Laverne Lea on 03-06-2025 Creatinine [Mass/Vol] 0.95 mg/dL 0.70-1.20 [facility] Serum glucose measurement (m ass/volume)Ordered By: Laverne Lea on 03-06-2025 Glucose [Mass/Vol] 143 mg/dL High 70-[address] [facility] Serum or plasma calcium inga urement (mass/volume)Ordered By: Laverne Lea on 03-06-2025 Calcium [Mass/Vol] 9.1 mg/dL 7.6-11.[address] [facility] Serum or plasma urea nitroge n measurement (mass/volume)Ordered By: Laverne Lea on 03-06-2025 Urea nitrogen [Mass/Vol] 19 mg/dL 4-19 [facility] Sodium levelOrdered By: Antonette carvalholashay Leonora on 03-06-2025 Sodium [Moles/Vol] 133 mmol/L 133-[address] [facility] White blood cell (WBC) count Ordered By: Laverne Lea on 03-06-2025 WBC (Bld) [#/Vol] 6.7 10*3/uL 4.4-11.[address] [facility] Gram stainOrdered By: Garett Jones on 03-04-2025 Microscopic observation Gram stain Nom (Unsp spec) [facility] Absolute lymphocyte countOrd ered By: Laverne Lea on 02-11-2025 Lymphocytes Auto (Unsp spec) [#/Vol] 3.25 10*3/uL 0.83-4.51 [facility] Absolute neutrophil countOrd ered By: Laverne Lea on 02-11-2025 Neutrophils (Bld) [#/Vol] 3.2 10*3/uL 2.0-7.7 [facility] Anion gap in Serum or Plasma Ordered By: Laverne Lea on 02-11-2025 Anion gap [Moles/Vol] 11 mmol/L 5-15 [facility] Automated lymphocyte count a s percentage of total leukocytesOrdered By: Laverne Lea on 02-11-2025 Lymphocytes/100 WBC Auto (Unsp spec) 45.2 % High 19-41 [facility] BUN/creatinine ratioOrdered By: Laverne Lea on 02-11-2025 Urea nitrogen/Creatinine [Mass ratio] 20.8 mg/mg High 10-20 [facility] Basophil percentageOrdered B y: Laverne Lea on 02-11-2025 Basophils/100 WBC (Bld) 0.7 % 0-1 [facility] Carbon dioxide, total [Moles /volume] in Central venous bloodOrdered By: Antonettecliffordnate Lea on 02-11-2025 CO2 [Moles/Vol] 23.4 mmol/L 21.0-32.0 [facility] Chloride assayOrdered By: Leonora Lea on 02-11-2025 Chloride [Moles/Vol] 106 mmol/L 98-108 [facility] Eosinophil percentageOrdered By: beverly Lea on 02-11-2025 Eosinophils/100 WBC (Bld) 1.9 % 0-5 [facility] Erythrocyte distribution wid th ratioOrdered By: fatoucliffordnate Lea on 02-11-2025 Erythrocyte distribution width (RBC) [Ratio] 12.4 % 11.6-14.6 [facility] Erythrocyte distribution wid th standard deviationOrdered By: Laverne Lea on 02-11-2025 Erythrocyte distribution width (RBC) [Ratio] 42.6 fl 35.1-43.9 [facility] Glomerular filtration rate ( GFR) estimation/1.73 sq m using serum, plasma, or whole bOrdered By: Laverne Lea on 02-11-2025 GFR/1.73 sq M.predicted among non-blacks MDRD (S/P/Bld) [Vol rate/Area] 61 mL/min/{1.73_m2} >60 [facility] Comment on above: mL/min/1.73m2 CKD-EP I Creatinine Equation (2020) Hematocrit Auto (Bld) [Volum e fraction]Ordered By: aLverne Lea on 02-11-2025 Hematocrit (Bld) [Volume fraction] 33.6 % Low 37-47 [facility] Hemoglobin A1c percentageOrd ered By: Laverne Lea on 02-11-2025 HbA1c (Bld) [Mass fraction] 7.3 % High <5.7 [facility] Comment on above: Normal < 5.7 % Predi abetic 5.7 - 6.4 % Diabetic >or= 6.5 % Please note range changes. Hemoglobin measurementOrdere d By: Laverne Lea on 02-11-2025 Hemoglobin (Bld) [Mass/Vol] 11.0 g/dL Low 12.0-15.0 [facility] Immature granulocytes/100 WB C Auto (Bld)Ordered By: Laverne Lea on 02-11-2025 Immature granulocytes/100 WBC (Bld) 0.300 % 0.0-0.9 [facility] Comment on above: IG% - Immature Granu locytes (promyelocytes, myelocytes and metamyelocytes) > 1% indicates that a LEFT SHIFT is Present. MCV (mean corpuscular volume ) determinationOrdered By: Laverne Lea on 02-11-2025 MCV (RBC) [Entitic vol] 93.9 fL 81-99 [facility] Mean corpuscular hemoglobin (MCH) determinationOrdered By: Laverne Lea on 02-11-2025 MCH (RBC) [Entitic mass] 30.7 pg 27.0-32.0 [facility] Mean corpuscular hemoglobin concentration (MCHC) determinationOrdered By: Laverne Lea on 02-11-2025 MCHC (RBC) [Mass/Vol] 32.7 g/dL 32-36 [facility] Mean platelet volume determi nationOrdered By: Laverne Lea on 02-11-2025 Platelet mean volume (Bld) [Entitic vol] 10.1 fL 6.2-12.0 [facility] Monocyte percentageOrdered B y: Laverne Lea on 02-11-2025 Monocytes/100 WBC (Bld) 7.0 % 0-10 [facility] Neutrophil percentageOrdered By: Laverne Lea on 02-11-2025 Neutrophils/100 WBC (Bld) 44.9 % Low 47-70 [facility] Nucleated red blood cell per centageOrdered By: Laverne Lea on 02-11-2025 Nucleated RBC/100 WBC (Bld) [Ratio] 0 % 0-5 [facility] Platelet countOrdered By: Leonora fatouernesto Lea on 02-11-2025 Platelets (Bld) [#/Vol] 225 10*3/uL 150-450 [facility] Potassium measurement (mass/ volume)Ordered By: Laverne Lea on 02-11-2025 Potassium (Unsp spec) [Mass/Vol] 3.8 mmol/L 3.3-5.1 [facility] RBC Auto (Bld) [#/Vol]Ordere d By: Laverne Lea on 02-11-2025 RBC (Bld) [#/Vol] 3.58 10*6/uL Low 4.2-5.4 [facility] Serum creatinine measurement (mass/volume)Ordered By: Laverne Lea on 02-11-2025 Creatinine [Mass/Vol] 0.93 mg/dL 0.70-1.20 [facility] Serum glucose measurement (m ass/volume)Ordered By: Laverne Lea on 02-11-2025 Glucose [Mass/Vol] 191 mg/dL High 70-[address] [facility] Serum or plasma calcium inga urement (mass/volume)Ordered By: Laverne Lea on 02-11-2025 Calcium [Mass/Vol] 9.4 mg/dL 7.6-11.[address] [facility] Serum or plasma urea nitroge n measurement (mass/volume)Ordered By: Laverne Lea on 02-11-2025 Urea nitrogen [Mass/Vol] 19 mg/dL 4-19 [facility] Sodium levelOrdered By: Antonette carvalholashay Leonora on 02-11-2025 Sodium [Moles/Vol] 140 mmol/L 133-[address] [facility] White blood cell (WBC) count Ordered By: Laverne Lea on 02-11-2025 WBC (Bld) [#/Vol] 7.2 10*3/uL 4.4-11.[address] [facility] TSH DL <= 0.005 mIU/L QnOrde red By: Laverne Lea on 02-04-2025 TSH Qn 1.570 uIU/mL 0.300-4.200 [facility] Absolute lymphocyte countOrd ered By: Laverne Lea on 01-14-2025 Lymphocytes Auto (Unsp spec) [#/Vol] 3.03 10*3/uL 0.83-4.51 [facility] Absolute neutrophil countOrd ered By: Laverne Lea on 01-14-2025 Neutrophils (Bld) [#/Vol] 3.7 10*3/uL 2.0-7.7 [facility] Anion gap in Serum or Plasma Ordered By: Laverne Lea on 01-14-2025 Anion gap [Moles/Vol] 11 mmol/L 5-15 [facility] Automated lymphocyte count a s percentage of total leukocytesOrdered By: Laverne Lea on 01-14-2025 Lymphocytes/100 WBC Auto (Unsp spec) 40.3 % 19-41 [facility] BUN/creatinine ratioOrdered By: Laverne Lea on 01-14-2025 Urea nitrogen/Creatinine [Mass ratio] 20.4 mg/mg High 10-20 [facility] Basophil percentageOrdered B y: Laverne Lea on 01-14-2025 Basophils/100 WBC (Bld) 0.4 % 0-1 [facility] Carbon dioxide, total [Moles /volume] in Central venous bloodOrdered By: Laverne Lea on 01-14-2025 CO2 [Moles/Vol] 23.1 mmol/L 21.0-32.0 [facility] Chloride assayOrdered By: Leonora Lea on 01-14-2025 Chloride [Moles/Vol] 104 mmol/L 98-108 [facility] Eosinophil percentageOrdered By: Laverne Lea on 01-14-2025 Eosinophils/100 WBC (Bld) 1.3 % 0-5 [facility] Erythrocyte distribution wid th ratioOrdered By: Laverne Lea on 01-14-2025 Erythrocyte distribution width (RBC) [Ratio] 12.0 % 11.6-14.6 [facility] Erythrocyte distribution wid th standard deviationOrdered By: Laverne Lea on 01-14-2025 Erythrocyte distribution width (RBC) [Ratio] 41.0 fl 35.1-43.9 [facility] Glomerular filtration rate ( GFR) estimation/1.73 sq m using serum, plasma, or whole bOrdered By: fatoucliffordnate Lea on 01-14-2025 GFR/1.73 sq M.predicted among non-blacks MDRD (S/P/Bld) [Vol rate/Area] 66 mL/min/{1.73_m2} >60 [facility] Comment on above: mL/min/1.73m2 CKD-EP I Creatinine Equation (2020) Hematocrit Auto (Bld) [Volum e fraction]Ordered By: Laverne Lea on 01-14-2025 Hematocrit (Bld) [Volume fraction] 31.3 % Low 37-47 [facility] Hemoglobin measurementOrdere d By: Laverne Lea on 01-14-2025 Hemoglobin (Bld) [Mass/Vol] 10.5 g/dL Low 12.0-15.0 [facility] Immature granulocytes/100 WB C Auto (Bld)Ordered By: Laverne Lea 01-14-2025 Immature granulocytes/100 WBC (Bld) 0.100 % 0.0-0.9 [facility] Comment on above: IG% - Immature Granu locytes (promyelocytes, myelocytes and metamyelocytes) > 1% indicates that a LEFT SHIFT is Present. MCV (mean corpuscular volume ) determinationOrdered By: Laverne Lea on 01-14-2025 MCV (RBC) [Entitic vol] 94.0 fL 81-99 [facility] Mean corpuscular hemoglobin (MCH) determinationOrdered By: ftaoucliffordnate Lea 01-14-2025 MCH (RBC) [Entitic mass] 31.5 pg 27.0-32.0 [facility] Mean corpuscular hemoglobin concentration (MCHC) determinationOrdered By: Laverne Lea on 01-14-2025 MCHC (RBC) [Mass/Vol] 33.5 g/dL 32-36 [facility] Mean platelet volume determi nationOrdered By: Laverne Lea on 01-14-2025 Platelet mean volume (Bld) [Entitic vol] 10.3 fL 6.2-12.0 [facility] Monocyte percentageOrdered B y: Laverne Lea on 01-14-2025 Monocytes/100 WBC (Bld) 8.4 % 0-10 [facility] Neutrophil percentageOrdered By: Laverne Lea on 01-14-2025 Neutrophils/100 WBC (Bld) 49.5 % 47-70 [facility] Nucleated red blood cell per centageOrdered By: Laverne Lea on 01-14-2025 Nucleated RBC/100 WBC (Bld) [Ratio] 0 % 0-5 [facility] Platelet countOrdered By: Leonora Lea on 01-14-2025 Platelets (Bld) [#/Vol] 219 10*3/uL 150-450 [facility] Potassium measurement (mass/ volume)Ordered By: Laverne Lea on 01-14-2025 Potassium (Unsp spec) [Mass/Vol] 4.2 mmol/L 3.3-5.1 [facility] RBC Auto (Bld) [#/Vol]Ordere d By: Laverne Lea on 01-14-2025 RBC (Bld) [#/Vol] 3.33 10*6/uL Low 4.2-5.4 [facility] Serum creatinine measurement (mass/volume)Ordered By: Laverne Lea on 01-14-2025 Creatinine [Mass/Vol] 0.88 mg/dL 0.70-1.20 [facility] Serum glucose measurement (m ass/volume)Ordered By: Laverne Lea on 01-14-2025 Glucose [Mass/Vol] 148 mg/dL High 70-[address] [facility] Serum or plasma calcium inga urement (mass/volume)Ordered By: Laverne Lea on 01-14-2025 Calcium [Mass/Vol] 9.5 mg/dL 7.6-11.[address] [facility] Serum or plasma urea nitroge n measurement (mass/volume)Ordered By: Laverne Lea on 01-14-2025 Urea nitrogen [Mass/Vol] 18 mg/dL 4-19 [facility] Sodium levelOrdered By: Leonora ernesto Lea on 01-14-2025 Sodium [Moles/Vol] 138 mmol/L 133-[address] [facility] White blood cell (WBC) count Ordered By: Laverne Lea on 01-14-2025 WBC (Bld) [#/Vol] 7.5 10*3/uL 4.4-11.[address] [facility] Absolute lymphocyte countOrd ered By: Laverne Lea on 01-10-2025 Lymphocytes Auto (Unsp spec) [#/Vol] 3.42 10*3/uL 0.83-4.51 [facility] Absolute neutrophil countOrd ered By: beverly Lea on 01-10-2025 Neutrophils (Bld) [#/Vol] 2.7 10*3/uL 2.0-7.7 [facility] Automated lymphocyte count a s percentage of total leukocytesOrdered By: Laverne Lea on 01-10-2025 Lymphocytes/100 WBC Auto (Unsp spec) 50.3 % High 19-41 [facility] Basophil percentageOrdered B y: Laverne Lea on 01-10-2025 Basophils/100 WBC (Bld) 0.6 % 0-1 [facility] Eosinophil percentageOrdered By: [facility] 01-[facility] Eosinophils/100 WBC (Bld) 2.1 % 0-5 [facility] Erythrocyte distribution wid th ratioOrdered By: Laverne Lea on 01-10-2025 Erythrocyte distribution width (RBC) [Ratio] 11.9 % 11.6-14.6 [facility] Erythrocyte distribution wid th standard deviationOrdered By: beverly Lea on 01-10-2025 Erythrocyte distribution width (RBC) [Ratio] 40.2 fl 35.1-43.9 [facility] Hematocrit Auto (Bld) [Volum e fraction]Ordered By: Laverne Lea on 01-10-2025 Hematocrit (Bld) [Volume fraction] 32.1 % Low 37-47 [facility] Hemoglobin measurementOrdere d By: Laverne Lea on 01-10-2025 Hemoglobin (Bld) [Mass/Vol] 10.8 g/dL Low 12.0-15.0 [facility] Immature granulocytes/100 WB C Auto (Bld)Ordered By: Laverne Lea on 01-10-2025 Immature granulocytes/100 WBC (Bld) 0.000 % 0.0-0.9 [facility] Comment on above: IG% - Immature Granu locytes (promyelocytes, myelocytes and metamyelocytes) > 1% indicates that a LEFT SHIFT is Present. MCV (mean corpuscular volume ) determinationOrdered By: Laverne Lea on 01-10-2025 MCV (RBC) [Entitic vol] 93.0 fL 81-99 [facility] Mean corpuscular hemoglobin (MCH) determinationOrdered By: fatoucliffordnate Lea on 01-10-2025 MCH (RBC) [Entitic mass] 31.3 pg 27.0-32.0 [facility] Mean corpuscular hemoglobin concentration (MCHC) determinationOrdered By: fatoucliffordnate Lea on 01-10-2025 MCHC (RBC) [Mass/Vol] 33.6 g/dL 32-36 [facility] Mean platelet volume determi nationOrdered By: Laverne Lea on 01-10-2025 Platelet mean volume (Bld) [Entitic vol] 10.1 fL 6.2-12.0 [facility] Monocyte percentageOrdered B y: Laverne Lea on 01-10-2025 Monocytes/100 WBC (Bld) 6.9 % 0-10 [facility] Neutrophil percentageOrdered By: Laverne Lea on 01-10-2025 Neutrophils/100 WBC (Bld) 40.1 % Low 47-70 [facility] Nucleated red blood cell per centageOrdered By: Laverne Lea on 01-10-2025 Nucleated RBC/100 WBC (Bld) [Ratio] 0 % 0-5 [facility] Platelet countOrdered By: Leonora beverly Kirtnetoayo on 01-10-2025 Platelets (Bld) [#/Vol] 223 10*3/uL 150-450 [facility] RBC Auto (Bld) [#/Vol]Ordere d By: Leonorakatienate Moraleznetoayo on 01-10-2025 RBC (Bld) [#/Vol] 3.45 10*6/uL Low 4.2-5.4 [facility] White blood cell (WBC) count Ordered By: Laverne Lea on 01-10-2025 WBC (Bld) [#/Vol] 6.8 10*3/uL 4.4-11.[address] [facility] TSH DL <= 0.005 mIU/L QnOrde red By: Antonettenaginate Moraleznetoayo on 12-24-2024 Thyroid Stimulating Hormone (TSH) 2.070 uIU/mL 0.300-4.200 [facility] TSH Qn 2.070 uIU/mL 0.300-4.200 [facility] Absolute lymphocyte countOrd ered By: Antonettenaginate Moraleznetoayo on 12-10-2024 Lymphocytes Auto (Unsp spec) [#/Vol] 3.05 10*3/uL 0.83-4.51 [facility] Absolute neutrophil countOrd ered By: Laverne Moraleznetoayo on 12-10-2024 Neutrophils (Bld) [#/Vol] 2.7 10*3/uL 2.0-7.7 [facility] Anion gap in Serum or Plasma Ordered By: Laverne Lea on 12-10-2024 Anion gap [Moles/Vol] 11 mmol/L 5-15 [facility] Automated lymphocyte count a s percentage of total leukocytesOrdered By: Laverne Lea on 12-10-2024 Lymphocytes/100 WBC Auto (Unsp spec) 48.1 % High 19-41 [facility] BUN/creatinine ratioOrdered By: Laverne Lea on 12-10-2024 Urea nitrogen/Creatinine [Mass ratio] 21.8 mg/mg High 10-20 [facility] Basophil percentageOrdered B y: Antonettenaginate Moraleznetoayo on 12-10-2024 Basophils/100 WBC (Bld) 0.6 % 0-1 [facility] Carbon dioxide, total [Moles /volume] in Central venous bloodOrdered By: Leonorafatounaginate Lea on 12-10-2024 CO2 [Moles/Vol] 22.1 mmol/L 21.0-32.0 [facility] Chloride assayOrdered By: Leonora katienate Lea on 12-10-2024 Chloride [Moles/Vol] 107 mmol/L 98-108 [facility] Eosinophil percentageOrdered By: Laverne Moraleznetoayo on 12-10-2024 Eosinophils/100 WBC (Bld) 1.3 % 0-5 [facility] Erythrocyte distribution wid th (RBC) [Ratio]Ordered By: Antonettecliffordnate Lea on 12-10-2024 Erythrocyte distribution width (RBC) [Entitic vol] 39.8 fL 35.1-43.9 [facility] Erythrocyte distribution wid th ratioOrdered By: Laverne Lea on 12-10-2024 Erythrocyte distribution width (RBC) [Ratio] 11.8 % 11.6-14.6 [facility] Erythrocyte distribution wid th standard deviationOrdered By: fatoucliffordnate Moraleznetoayo on 12-10-2024 Erythrocyte distribution width (RBC) [Ratio] 39.8 fl 35.1-43.9 [facility] GFR/1.73 sq M.predicted dwain g non-blacks MDRD (S/P/Bld) [Vol rate/Area]Ordered By: Laverne Lea on 12-10-2024 Estimated GFR (MDRD) Non-Af Amer 64 >60 [facility] Comment on above: mL/min/1.73m2 CKD-EP I Creatinine Equation (2020) Glomerular filtration rate ( GFR) estimation/1.73 sq m using serum, plasma, or whole bOrdered By: Laverne Lea on 12-10-2024 GFR/1.73 sq M.predicted among non-blacks MDRD (S/P/Bld) [Vol rate/Area] 64 mL/min/{1.73_m2} >60 [facility] Comment on above: mL/min/1.73m2 CKD-EP I Creatinine Equation (2020) Hematocrit Auto (Bld) [Volum e fraction]Ordered By: Laverne Lea on 12-10-2024 Hematocrit (Bld) [Volume fraction] 33.6 % Low 37-47 [facility] Hemoglobin measurementOrdere d By: Laverne Lea on 12-10-2024 Hemoglobin (Bld) [Mass/Vol] 11.4 g/dL Low 12.0-15.0 [facility] Immature granulocytes/100 WB C Auto (Bld)Ordered By: Laverne Lea on 12-10-2024 Immature granulocytes/100 WBC (Bld) 0.200 % 0.0-0.9 [facility] Comment on above: IG% - Immature Granu locytes (promyelocytes, myelocytes and metamyelocytes) > 1% indicates that a LEFT SHIFT is Present. Lymphocytes Auto (Unsp spec) [#/Vol]Ordered By: Laverne Lea on 12-10-2024 Lymphocytes (Bld) [#/Vol] 3.05 10*3/uL 0.83-4.51 [facility] Lymphocytes/100 WBC Auto (Un sp spec)Ordered By: Laverne Lea on 12-10-2024 Lymphocytes/100 WBC (Bld) 48.1 % High 19-41 [facility] MCV (mean corpuscular volume ) determinationOrdered By: Laverne Lea on 12-10-2024 MCV (RBC) [Entitic vol] 92.6 fL 81-99 [facility] Mean corpuscular hemoglobin (MCH) determinationOrdered By: Laverne Lea on 12-10-2024 MCH (RBC) [Entitic mass] 31.4 pg 27.0-32.0 [facility] Mean corpuscular hemoglobin concentration (MCHC) determinationOrdered By: Laverne Lea on 12-10-2024 MCHC (RBC) [Mass/Vol] 33.9 g/dL 32-36 [facility] Mean platelet volume determi nationOrdered By: Laverne Lea on 12-10-2024 Platelet mean volume (Bld) [Entitic vol] 9.7 fL 6.2-12.0 [facility] Monocyte percentageOrdered B y: Laverne Lea on 12-10-2024 Monocytes/100 WBC (Bld) 7.1 % 0-10 [facility] Neutrophil percentageOrdered By: Laverne Lea on 12-10-2024 Neutrophils/100 WBC (Bld) 42.7 % Low 47-70 [facility] Nucleated red blood cell per centageOrdered By: Laverne Lea on 12-10-2024 Nucleated RBC/100 WBC (Bld) [Ratio] 0 % 0-5 [facility] Platelet countOrdered By: Leonora Lea on 12-10-2024 Platelets (Bld) [#/Vol] 220 10*3/uL 150-450 [facility] Potassium (Unsp spec) [Mass/ Vol]Ordered By: Laverne Lea on 12-10-2024 Potassium [Moles/Vol] 4.1 mmol/L 3.3-5.1 [facility] Potassium measurement (mass/ volume)Ordered By: Laverne Kirtesvin on 12-10-2024 Potassium (Unsp spec) [Mass/Vol] 4.1 mmol/L 3.3-5.1 [facility] RBC Auto (Bld) [#/Vol]Ordere d By: Laverne Lea on 12-10-2024 RBC (Bld) [#/Vol] 3.63 10*6/uL Low 4.2-5.4 [facility] Serum creatinine measurement (mass/volume)Ordered By: Laverne Antoineayo on 12-10-2024 Creatinine [Mass/Vol] 0.90 mg/dL 0.70-1.20 [facility] Serum glucose measurement (m ass/volume)Ordered By: Laverne Kirtnetoayo on 12-10-2024 Glucose [Mass/Vol] 86 mg/dL 70-[address] [facility] Serum or plasma calcium inga urement (mass/volume)Ordered By: Laverne Kirtnetoayo on 12-10-2024 Calcium [Mass/Vol] 9.5 mg/dL 7.6-11.[address] [facility] Serum or plasma urea nitroge n measurement (mass/volume)Ordered By: Laverne Lea on 12-10-2024 Urea nitrogen [Mass/Vol] 20 mg/dL High 4-19 [facility] Sodium levelOrdered By: Antonette ernesto Leonora on 12-10-2024 Sodium [Moles/Vol] 140 mmol/L 133-[address] [facility] White blood cell (WBC) count Ordered By: Laverne Lea on 12-10-2024 WBC (Bld) [#/Vol] 6.3 10*3/uL 4.4-11.[address] [facility] Absolute lymphocyte countOrd ered By: Laverne Lea on 11-12-2024 Lymphocytes Auto (Unsp spec) [#/Vol] 5.06 10*3/uL High 0.83-4.51 [facility] Absolute neutrophil countOrd ered By: Laverne Lea on 11-12-2024 Neutrophils (Bld) [#/Vol] 3.8 10*3/uL 2.0-7.7 [facility] Automated lymphocyte count a s percentage of total leukocytesOrdered By: Laverne Lea on 11-12-2024 Lymphocytes/100 WBC Auto (Unsp spec) 52.6 % High 19-41 [facility] Basophil percentageOrdered B y: Laverne Lea on 11-12-2024 Basophils/100 WBC (Bld) 0.5 % 0-1 [facility] Blood urea nitrogen (BUN)/cr eatinine ratioOrdered By: Laverne Lea on 11-12-2024 Urea nitrogen/Creatinine [Mass ratio] 15.0 mg/mg 10-20 [facility] Carbon dioxide measurementOr dered By: Laverne Lea on 11-12-2024 CO2 [Moles/Vol] 25.0 mmol/L 21.0-32.0 [facility] Chloride measurementOrdered By: Laverne Lea on 11-12-2024 Chloride [Moles/Vol] 108 mmol/L High 98-107 [facility] Eosinophil percentageOrdered By: Laverne Lea on 11-12-2024 Eosinophils/100 WBC (Bld) 1.4 % 0-5 [facility] Erythrocyte distribution wid th (RBC) [Ratio]Ordered By: Laverne Lea on 11-12-2024 Erythrocyte distribution width (RBC) [Entitic vol] 42.1 fL 35.1-43.9 [facility] Erythrocyte distribution wid th ratioOrdered By: beverly Lae on 11-12-2024 Erythrocyte distribution width (RBC) [Ratio] 12.1 % 11.6-14.6 [facility] Erythrocyte distribution wid th standard deviationOrdered By: beverly Lea on 11-12-2024 Erythrocyte distribution width (RBC) [Ratio] 42.1 fl 35.1-43.9 [facility] Estimated glomerular filtrat ion rate (GFR) AmericanOrdered By: Laverne Lea on 11-12-2024 Estimated GFR (MDRD) Amer 68 mL/min >60 [facility] Comment on above: GFR Calc Glomerular filtration rate ( GFR) estimationOrdered By: Laverne Lea on 11-12-2024 Estimated GFR (MDRD) Non-Af Amer 56 mL/min Low >60 [facility] Comment on above: Non- GFR Calc GFR/1.73 sq M.predicted among non-blacks MDRD (S/P/Bld) [Vol rate/Area] 56 mL/min/{1.73_m2} Low >60 [facility] Comment on above: Non- GFR Calc Glucose measurementOrdered B y: Laverne Lea on 11-12-2024 Glucose [Mass/Vol] 130 mg/dL High 74-[address] [facility] Comment on above: Fasting Glucose resu lt greater than or equal to 126 mg/dL suggests DIABETES MELLITUS per A.D.A. criteria. Hematocrit Auto (Bld) [Volum e fraction]Ordered By: Laverne Lea on 11-12-2024 Hematocrit (Bld) [Volume fraction] 38.9 % 37-47 [facility] Hemoglobin A1c percentageOrd ered By: Laverne Lea on 11-12-2024 HbA1c (Bld) [Mass fraction] 7.2 % High 3.8-5.6 [facility] Comment on above: Normal < 5.7 % Predi abetic 5.7 - 6.4 % Diabetic >or= 6.5 % Please note range changes. Hemoglobin measurementOrdere d By: Laverne Lea on 11-12-2024 Hemoglobin (Bld) [Mass/Vol] 12.7 g/dL 12.0-15.0 [facility] Immature granulocytes/100 WB C Auto (Bld)Ordered By: Laverne Lea on 11-12-2024 Immature granulocytes/100 WBC (Bld) 0.200 % 0.0-0.9 [facility] Comment on above: IG% - Immature Granu locytes (promyelocytes, myelocytes and metamyelocytes) > 1% indicates that a LEFT SHIFT is Present. Lymphocytes Auto (Unsp spec) [#/Vol]Ordered By: Laverne Lea on 11-12-2024 Lymphocytes (Bld) [#/Vol] 5.06 10*3/uL High 0.83-4.51 [facility] Lymphocytes/100 WBC Auto (Un sp spec)Ordered By: Laverne Lea on 11-12-2024 Lymphocytes/100 WBC (Bld) 52.6 % High 19-41 [facility] MCV (mean corpuscular volume ) determinationOrdered By: Laverne Lea on 11-12-2024 MCV (RBC) [Entitic vol] 94.2 fL 81-99 [facility] Mean corpuscular hemoglobin (MCH) determinationOrdered By: Laverne Lea on 11-12-2024 MCH (RBC) [Entitic mass] 30.8 pg 27.0-32.0 [facility] Mean corpuscular hemoglobin concentration (MCHC) determinationOrdered By: Laverne Lea on 11-12-2024 MCHC (RBC) [Mass/Vol] 32.6 g/dL 32-36 [facility] Mean platelet volume determi nationOrdered By: Laverne Lea on 11-12-2024 Platelet mean volume (Bld) [Entitic vol] 9.7 fL 6.2-12.0 [facility] Monocyte percentageOrdered B y: Laverne Lea on 11-12-2024 Monocytes/100 WBC (Bld) 5.7 % 0-10 [facility] Neutrophil percentageOrdered By: Laverne Lea on 11-12-2024 Neutrophils/100 WBC (Bld) 39.6 % Low 47-70 [facility] Nucleated red blood cell per centageOrdered By: Laverne Lea on 11-12-2024 Nucleated RBC/100 WBC (Bld) [Ratio] 0 % 0-5 [facility] Platelet countOrdered By: Leonora Lea on 11-12-2024 Platelets (Bld) [#/Vol] 302 10*3/uL 150-450 [facility] Potassium measurementOrdered By: Laverne Lea on 11-12-2024 Potassium [Moles/Vol] 4.2 mmol/L 3.5-5.1 [facility] RBC Auto (Bld) [#/Vol]Ordere d By: Laverne Lea on 11-12-2024 RBC (Bld) [#/Vol] 4.13 10*6/uL Low 4.2-5.4 [facility] Reactive lymphocyte countOrd ered By: Laverne Lea on 11-12-2024 Reactive Lymphocytes 1+ [facility] Serum anion gap measurementO rdered By: Laverne Lea on 11-12-2024 Anion gap [Moles/Vol] 7 mmol/L 5-15 [facility] Serum or plasma calcium inga urement (mass/volume)Ordered By: Laverne Lea on 11-12-2024 Calcium [Mass/Vol] 9.7 mg/dL 8.5-10.[address] [facility] Serum or plasma creatinine m easurement (mass/volume)Ordered By: Laverne Lea on 11-12-2024 Creatinine [Mass/Vol] 1.00 mg/dL 0.55-1.02 [facility] Comment on above: The validity of the calculated GFR & GFRAA in patients over 70 years has not been determined. Clinical correlation is essential. Serum or plasma thyroid stim ulating hormone (TSH) measurement (units/volume)Ordered By: Laverne Lea on 11-12-2024 TSH Qn 3.410 uIU/mL 0.358-3.740 [facility] Serum or plasma urea nitroge n measurement (mass/volume)Ordered By: Laverne Lea on 11-12-2024 Urea nitrogen [Mass/Vol] 15 mg/dL 7-18 [facility] Sodium levelOrdered By: Antonette Lea on 11-12-2024 Sodium [Moles/Vol] 140 mmol/L 136-[address] [facility] TSH QnOrdered By: Laverne Lea on 11-12-2024 Thyroid Stimulating Hormone (TSH) 3.410 uIU/mL 0.358-3.740 [facility] White blood cell (WBC) count Ordered By: Laverne Lea on 11-12-2024 WBC (Bld) [#/Vol] 9.6 10*3/uL 4.4-11.[address] [facility] Absolute neutrophil countOrd ered By: Laverne Lea on 10-15-2024 Neutrophils (Bld) [#/Vol] 2.4 10*3/uL 2.0-7.7 [facility] Basophil percentageOrdered B y: Laverne Lea on 10-15-2024 Basophils/100 WBC (Bld) 0.6 % 0-1 [facility] Blood urea nitrogen (BUN)/cr eatinine ratioOrdered By: Laverne Lea on 10-15-2024 Urea nitrogen/Creatinine [Mass ratio] 15.0 mg/mg 10-20 [facility] Carbon dioxide measurementOr dered By: Laverne Lea on 10-15-2024 CO2 [Moles/Vol] 26.0 mmol/L 21.0-32.0 [facility] Chloride measurementOrdered By: Laverne Lea on 10-15-2024 Chloride [Moles/Vol] 109 mmol/L High 98-107 [facility] Eosinophil percentageOrdered By: Laverne Lea on 10-15-2024 Eosinophils/100 WBC (Bld) 1.9 % 0-5 [facility] Erythrocyte distribution wid th (RBC) [Ratio]Ordered By: Laverne Lea on 10-15-2024 Erythrocyte distribution width (RBC) [Entitic vol] 43.3 fL 35.1-43.9 [facility] Erythrocyte distribution wid th ratioOrdered By: Laverne Antoineayo on 10-15-2024 Erythrocyte distribution width (RBC) [Ratio] 12.7 % 11.6-14.6 [facility] Estimated glomerular filtrat ion rate (GFR) AmericanOrdered By: Laverne Lea on 10-15-2024 Estimated GFR (MDRD) Amer 74 mL/min >60 [facility] Comment on above: GFR Calc Glomerular filtration rate ( GFR) estimationOrdered By: beverly Lea on 10-15-2024 Estimated GFR (MDRD) Non-Af Amer 61 mL/min >60 [facility] Comment on above: Non- GFR Calc Glucose measurementOrdered B y: Vinhnate Lea on 10-15-2024 Glucose [Mass/Vol] 217 mg/dL High 74-[address] [facility] Comment on above: Glucose result great er than or equal to 200 mg/dLsuggests DIABETES MELLITUS per A.D.A. criteria. Hematocrit Auto (Bld) [Volum e fraction]Ordered By: Laverne Lea on 10-15-2024 Hematocrit (Bld) [Volume fraction] 32.8 % Low 37-47 [facility] Hemoglobin measurementOrdere d By: Antonettenaginate Lea on 10-15-2024 Hemoglobin (Bld) [Mass/Vol] 11.0 g/dL Low 12.0-15.0 [facility] Immature granulocytes/100 WB C Auto (Bld)Ordered By: Laverne Lea on 10-15-2024 Immature granulocytes/100 WBC (Bld) 0.200 % 0.0-0.9 [facility] Comment on above: IG% - Immature Granu locytes (promyelocytes, myelocytes and metamyelocytes) > 1% indicates that a LEFT SHIFT is Present. Lymphocytes Auto (Unsp spec) [#/Vol]Ordered By: beverly Lea on 10-15-2024 Lymphocytes (Bld) [#/Vol] 3.43 10*3/uL 0.83-4.51 [facility] Lymphocytes/100 WBC Auto (Un sp spec)Ordered By: Laverne Lea on 10-15-2024 Lymphocytes/100 WBC (Bld) 54.1 % High 19-41 [facility] MCV (mean corpuscular volume ) determinationOrdered By: Laverne Lea on 10-15-2024 MCV (RBC) [Entitic vol] 93.4 fL 81-99 [facility] Mean corpuscular hemoglobin (MCH) determinationOrdered By: Laverne Lea on 10-15-2024 MCH (RBC) [Entitic mass] 31.3 pg 27.0-32.0 [facility] Mean corpuscular hemoglobin concentration (MCHC) determinationOrdered By: Laverne Lea on 10-15-2024 MCHC (RBC) [Mass/Vol] 33.5 g/dL 32-36 [facility] Mean platelet volume determi nationOrdered By: Laverne Lea on 10-15-2024 Platelet mean volume (Bld) [Entitic vol] 10.0 fL 6.2-12.0 [facility] Monocyte percentageOrdered B y: Laverne Lea on 10-15-2024 Monocytes/100 WBC (Bld) 6.2 % 0-10 [facility] Neutrophil percentageOrdered By: Laverne Lea on 10-15-2024 Neutrophils/100 WBC (Bld) 37.0 % Low 47-70 [facility] Nucleated red blood cell per centageOrdered By: Laverne Lea on 10-15-2024 Nucleated RBC/100 WBC (Bld) [Ratio] 0 % 0-5 [facility] Platelet countOrdered By: Leonora Lea on 10-15-2024 Platelets (Bld) [#/Vol] 246 10*3/uL 150-450 [facility] Potassium measurementOrdered By: Laverne Lea on 10-15-2024 Potassium [Moles/Vol] 4.1 mmol/L 3.5-5.1 [facility] RBC Auto (Bld) [#/Vol]Ordere d By: Laverne Lea on 10-15-2024 RBC (Bld) [#/Vol] 3.51 10*6/uL Low 4.2-5.4 [facility] Serum anion gap measurementO rdered By: Laverne Lea on 10-15-2024 Anion gap [Moles/Vol] 4 mmol/L Low 5-15 [facility] Serum or plasma calcium inga urement (mass/volume)Ordered By: Laverne Lea on 10-15-2024 Calcium [Mass/Vol] 9.0 mg/dL 8.5-10.[address] [facility] Serum or plasma creatinine m easurement (mass/volume)Ordered By: Laverne Lea on 10-15-2024 Creatinine [Mass/Vol] 0.94 mg/dL 0.55-1.02 [facility] Comment on above: The validity of the calculated GFR & GFRAA in patients over 70 years has not been determined. Clinical correlation is essential. Serum or plasma urea nitroge n measurement (mass/volume)Ordered By: Laverne Lea on 10-15-2024 Urea nitrogen [Mass/Vol] 14 mg/dL 7-18 [facility] Sodium levelOrdered By: Antonette Lea on 10-15-2024 Sodium [Moles/Vol] 139 mmol/L 136-[address] [facility] White blood cell (WBC) count Ordered By: Laverne Lea on 10-15-2024 WBC (Bld) [#/Vol] 6.3 10*3/uL 4.4-11.[address] [facility] TSH QnOrdered By: Laverne Lea on 10-01-2024 Thyroid Stimulating Hormone (TSH) 2.360 uIU/mL 0.358-3.740 [facility] Potassium measurementOrdered By: Laverne Lea on 09-13-2024 Potassium [Moles/Vol] 4.0 mmol/L 3.5-5.1 [facility] Absolute neutrophil countOrd ered By: Laverne Lea on 09-10-2024 Neutrophils (Bld) [#/Vol] 2.8 10*3/uL 2.0-7.7 [facility] Basophil percentageOrdered B y: Laverne Lea on 09-10-2024 Basophils/100 WBC (Bld) 0.8 % 0-1 [facility] Blood urea nitrogen (BUN)/cr eatinine ratioOrdered By: Laverne Lea on 09-10-2024 Urea nitrogen/Creatinine [Mass ratio] 11.3 mg/mg 10-20 [facility] Carbon dioxide measurementOr dered By: Laverne Lea on 09-10-2024 CO2 [Moles/Vol] 26.0 mmol/L 21.0-32.0 [facility] Chloride measurementOrdered By: Laverne Lea on 09-10-2024 Chloride [Moles/Vol] 108 mmol/L High 98-107 [facility] Eosinophil percentageOrdered By: Laverne Lea on 09-10-2024 Eosinophils/100 WBC (Bld) 1.4 % 0-5 [facility] Erythrocyte distribution wid th (RBC) [Ratio]Ordered By: Laverne Lea on 09-10-2024 Erythrocyte distribution width (RBC) [Entitic vol] 43.9 fL 35.1-43.9 [facility] Erythrocyte distribution wid th ratioOrdered By: Laverne Lea on 09-10-2024 Erythrocyte distribution width (RBC) [Ratio] 13.0 % 11.6-14.6 [facility] Estimated glomerular filtrat ion rate (GFR) AmericanOrdered By: Laverne Lea on 09-10-2024 Estimated GFR (MDRD) Amer 70 mL/min >60 [facility] Comment on above: GFR Calc Glomerular filtration rate ( GFR) estimationOrdered By: Laverne Lea on 09-10-2024 Estimated GFR (MDRD) Non-Af Amer 58 mL/min Low >60 [facility] Comment on above: Non- GFR Calc Glucose measurementOrdered B y: Laverne Lea on 09-10-2024 Glucose [Mass/Vol] 210 mg/dL High 74-[address] [facility] Comment on above: Glucose result great er than or equal to 200 mg/dLsuggests DIABETES MELLITUS per A.D.A. criteria. Hematocrit Auto (Bld) [Volum e fraction]Ordered By: Laverne Lea on 09-10-2024 Hematocrit (Bld) [Volume fraction] 37.5 % 37-47 [facility] Hemoglobin measurementOrdere d By: Laverne Lea on 09-10-2024 Hemoglobin (Bld) [Mass/Vol] 12.4 g/dL 12.0-15.0 [facility] Immature granulocytes/100 WB C Auto (Bld)Ordered By: Laverne Lea on 09-10-2024 Immature granulocytes/100 WBC (Bld) 0.100 % 0.0-0.9 [facility] Comment on above: IG% - Immature Granu locytes (promyelocytes, myelocytes and metamyelocytes) > 1% indicates that a LEFT SHIFT is Present. Lymphocytes Auto (Unsp spec) [#/Vol]Ordered By: Laverne Lea on 09-10-2024 Lymphocytes (Bld) [#/Vol] 4.45 10*3/uL 0.83-4.51 [facility] Lymphocytes/100 WBC Auto (Un sp spec)Ordered By: Laverne Lea on 09-10-2024 Lymphocytes/100 WBC (Bld) 56.8 % High 19-41 [facility] MCV (mean corpuscular volume ) determinationOrdered By: Laverne Lea on 09-10-2024 MCV (RBC) [Entitic vol] 91.5 fL 81-99 [facility] Mean corpuscular hemoglobin (MCH) determinationOrdered By: Laverne Lea on 09-10-2024 MCH (RBC) [Entitic mass] 30.2 pg 27.0-32.0 [facility] Mean corpuscular hemoglobin concentration (MCHC) determinationOrdered By: Laverne Lea on 09-10-2024 MCHC (RBC) [Mass/Vol] 33.1 g/dL 32-36 [facility] Mean platelet volume determi nationOrdered By: Laverne Lea on 09-10-2024 Platelet mean volume (Bld) [Entitic vol] 10.1 fL 6.2-12.0 [facility] Monocyte percentageOrdered B y: Laverne Lea on 09-10-2024 Monocytes/100 WBC (Bld) 4.7 % 0-10 [facility] Neutrophil percentageOrdered By: Laverne Lea on 09-10-2024 Neutrophils/100 WBC (Bld) 36.2 % Low 47-70 [facility] Nucleated red blood cell per centageOrdered By: Laverne Lea on 09-10-2024 Nucleated RBC/100 WBC (Bld) [Ratio] 0 % 0-5 [facility] Platelet countOrdered By: Leonora Lea on 09-10-2024 Platelets (Bld) [#/Vol] 283 10*3/uL 150-450 [facility] Potassium measurementOrdered By: Laverne Lea on 09-10-2024 Potassium [Moles/Vol] 3.4 mmol/L Low 3.5-5.1 [facility] RBC Auto (Bld) [#/Vol]Ordere d By: Laverne Lea on 09-10-2024 RBC (Bld) [#/Vol] 4.10 10*6/uL Low 4.2-5.4 [facility] Serum anion gap measurementO rdered By: Laverne Lea on 09-10-2024 Anion gap [Moles/Vol] 6 mmol/L 5-15 [facility] Serum or plasma calcium inga urement (mass/volume)Ordered By: Laverne Lea on 09-10-2024 Calcium [Mass/Vol] 9.4 mg/dL 8.5-10.[address] [facility] Serum or plasma creatinine m easurement (mass/volume)Ordered By: Laverne Lea on 09-10-2024 Creatinine [Mass/Vol] 0.98 mg/dL 0.55-1.02 [facility] Comment on above: The validity of the calculated GFR & GFRAA in patients over 70 years has not been determined. Clinical correlation is essential. Serum or plasma urea nitroge n measurement (mass/volume)Ordered By: Laverne Lea on 09-10-2024 Urea nitrogen [Mass/Vol] 11 mg/dL 7-18 [facility] Sodium levelOrdered By: Antonette Lea on 09-10-2024 Sodium [Moles/Vol] 140 mmol/L 136-[address] [facility] White blood cell (WBC) count Ordered By: Laverne Lea on 09-10-2024 WBC (Bld) [#/Vol] 7.8 10*3/uL 4.4-11.[address] [facility] ERCP Reporton 07-23-2024 ERCP Report [facility] Medical Records Department [address] [place] [address] ERCP Report MR#: [id number] Acct: [id number] Name: LUZIA GALO Rep #: [id number] : 1940 83 From: Doe Orr DO PCP: Dr. Rosalind Rubalcava MD Status:DEP [facility] [place] Patient Name: Luiza Galo Procedure Date: 07/19/2024 [...] hours 12 minutes 16 seconds Findings: The fiber technologist film was normal. The esophagus was successfully [...] biliary tree. Procedure Code(s): --- Professional --- 45435, Endoscopic retrograde cholangiopancreatograph y (ERCP); with removal of foreign body(s) or stent(s) from biliary/singh (more content not included)... Normal [facility] Bedside Glucoseon 07-19-2024 FINGERSTICK GLU 140 mg/dL High 74-106 [facility] Comment on above: Result Comment: TRAE CASTELLANO OF PATIENT CARE PER NURSING PROTOCOL Performed By: #### L 501.080 #### [facility] [address] [place], [address] ERCP Biliary/Pancreason 07-03 ERCP Biliary/Pancreas [facility] Imaging Services [address] [place] [address] ERCP Biliary/Pancreas MR#: [id number] Acct: [id number] Name: LUIZA GALO Rep #: [id number] : 1940 F 83 From: Jose Hatfield PCP: Dr. Rosalind Rubalcava MD Status: DEP [facility] Study: ERCP Biliary/Pancreas Date of Exam: 07/19/24 Exam# [id number] Ordering Dr: [place] [id number] EXAM: INTRAOPERATIVE CHOLANGIOGRAM FLUOROSCOPY TIME: 153.8 seconds RADIATION DOSE: 37.47 mGy TOTAL NUMBER OF IMAGES: 1 COMPARISON: None. PROVIDED CLINICAL HISTORY: STONES PAIN TECHNIQUE: The examination was performed with physician in attendance. Under fluoroscopic observation, fluoroscopic images were obtained in the operating room. FINDINGS: First image demonstrates surgical instruments overlying the njuqs-cm-gxid. Contrast is identified in a cannulated common bile duct. Retrograde contrast is notseen in the pancreatic duct. Contrast is noted in the proximal duodenum. Contrast is seen in the intrahepatic ducts. Stent removal RAD/ERCP Biliary/Pancreas IMPRESSION: Fluoroscopic assistance images were obtained. Pertinent findings noted above. Electronically Signed: Jose Queen MD at 15:37 EDT Reading Location ID and State: [facility] / [place] , Service support , CC: Dr. Rosalind Rubalcava MD; Doe Orr DO Mold Car Pusher: Signed [facility] MR/POSTOP.ANEon 07-19-2024 MR/POSTOP.[facility] Medical Records Department [address] [place] [address] Anesthesia Postop Eval I 07/19/24 1219 MR#: [id number] Acct: [id number] Name: LUIZA GALO Rep #: [id number] : 1940 83 From: Omid Adams PCP: Dr. Rosalind Rubalcava MD Status:REG [facility] Y Race: C Location: [place] [address] Anesthesia: Postop Eval I Current Vital Signs [...] Anesthesia document: Postop Eval 1 completed: Yes 07/19/241219 Date Omid Tabares Signature: Date CC: Signed [facility] [id number] 07-19-2024 MR/POSTOPAN2 [facility] Medical Records Department [address] [place] [address] Anesthesia Postop Eval II 07/19/24 1225 MR#: [id number] Acct: [id number] Name: LUIZA GALO Rep #: [id number] : 1940 83 From: Cirilo Galeas MD PCP: Dr. Rosalind Rubalcava MD Status:REG SDC Y Race: C Location: [facility]09-02 Anesthesia Postop Eval I Sum Postop Eval [...] MD Cosigner Signature: Date CC: Signed Normal [facility] Special Stain Group IIon Special Stain Group II ------ Patient Age/Sex Location Account Attending Physician RICKYLUIZA Corrine 83/F EN [id number] Doe Orr, Specimen: [id number] Received: 07/19/24 Status: EMANUEL Pastrana Num: [id number] Spec Type: Fluid Subm Dr: Doe Orr DO HEADER OPERATION: ERCP with stent removal, balloon dilation PRE-OP DIAGNOSIS: Abdominal pain TISSUE SUBMITTED: Biliary stent for cytology DIAGNOSIS CYTOLOGY Biliary stent fluid for cytology (cytospin and cellblock); Negative for malignant cells. See comment. [email or web address] 07/20/2024 COMMENT Clinical correlation and appropriate follow up are necessary. CYTOLOGY STUDY Slides are reviewed. CYTOLOGY GROSS Received is one black stent, 8cm with 2 ml of brownish-yellow material labeled with the patient's name and and designated per the requisition as "Biliary stent." Submitted for cytology preparation including cell block. Mr 07/19/2024 TC:5 CPT: 72579,54174 Signed (signature on file) Dr. Rangel Bell MD 07/20/24 1232 Normal [facility] Comment on above: Performed By: #### L 500.3400, L100.0100, L501.4020, L501.2450, L500.2500 #### [facility] [address] [place], [address] .Auto Diffon 05-23-2024 Basophil, Absolute 0.0 10 3/mcL Normal 0.0-0.2 [facility] ([place]) Comment on above: Performed By: #### C BC, GFR, A1C, ADIFF, CRP, TSH, CMP, ANEU, ESR #### [address] [address] Basophils/100 WBC (Bld) 0.5 % Normal 0.0-2.5 [facility] ([place]) Comment on above: Performed By: #### C BC, GFR, A1C, ADIFF, CRP, TSH, CMP, ANEU, ESR #### [address] [address] Eosinophil, Absolute 0.2 10 3/mcL Normal 0.0-0.4 [facility] ([place]) Comment on above: Performed By: #### C BC, GFR, A1C, ADIFF, CRP, TSH, CMP, ANEU, ESR #### [address] [address] Eosinophils/100 WBC (Bld) 2.1 % Normal 0.0-7.0 [facility] ([place]) Comment on above: Performed By: #### C BC, GFR, A1C, ADIFF, CRP, TSH, CMP, ANEU, ESR #### [address] [address] Lymphocyte, Absolute 3.3 10 3/mcL Normal 0.8-3.9 [facility] ([place]) Comment on above: Performed By: #### C BC, GFR, A1C, ADIFF, CRP, TSH, CMP, ANEU, ESR #### [address] [address] Lymphocytes/100 WBC (Bld) 35.3 % Normal 10.0-50.0 [facility] ([place]) Comment on above: Performed By: #### C BC, GFR, A1C, ADIFF, CRP, TSH, CMP, ANEU, ESR #### [address] [address] Monocyte, Absolute 0.5 10 3/mcL Normal 0.2-1.0 [facility] ([place] Comment on above: Performed By: #### C BC, GFR, A1C, ADIFF, CRP, TSH, CMP, ANEU, ESR #### [address] [address] Monocytes/100 WBC (Bld) 5.4 % Normal 1.7-13.0 [facility] ([place] Comment on above: Performed By: #### C BC, GFR, A1C, ADIFF, CRP, TSH, CMP, ANEU, ESR #### [address] [address] Neutrophils/100 WBC (Bld) 56.7 % Normal 37.0-80.0 [facility] ([place] Comment on above: Performed By: #### C BC, GFR, A1C, ADIFF, CRP, TSH, CMP, ANEU, ESR #### [address] [address] .GFRon 05-23-2024 GFR Non- 59 ml/min/1.73sqm Normal [facility] ([place]) Comment on above: Result Comment: GFR Population [...] ADIFF, CRP, TSH, CMP, ANEU, ESR #### [address] [address] GFR 71 ml/min/1.73sqm Normal [facility] ([place] Comment on above: Result Comment: GFR Population [...] ADIFF, CRP, TSH, CMP, ANEU, ESR #### [address] [address] .NEUABSon 05-23-2024 Neutrophil, Absolute 5.3 10 3/mcL Normal 2.9-6.2 [facility] ([place]) Comment on above: Performed By: #### C BC, GFR, A1C, ADIFF, CRP, TSH, CMP, ANEU, ESR #### [place] [id number] [place], [place] [address] A1Con 05-23-2024 Glucose [Mass/Vol] 157 mg/dL Normal [facility] ([place]) Comment on above: Result Comment: Jessica mated Average Glucose calculated by equation ((28.7xA1C)-46.7) Estimated average glucose (eAG) is a calculated value from Hemoglobin A1C and is career representative of the average blood glucose level in the last 2-3 month period. Normal range: less than 114 mg/dL Performed By: #### C BC, GFR, A1C, ADIFF, CRP, TSH, CMP, ANEU, ESR #### [place] [id number] HbA1c (Bld) [Mass fraction] 7.1 % High 4.3-6.4 [facility] ([place]) Comment on above: Performed By: #### C BC, GFR, A1C, ADIFF, CRP, TSH, CMP, ANEU, ESR #### [place] [address] CBCon 05-23-2024 Erythrocyte distribution width (RBC) [Ratio] 13.7 % Normal 11.5-14.5 [facility] ([place]) Comment on above: Performed By: #### C BC, GFR, A1C, ADIFF, CRP, TSH, CMP, ANEU, ESR #### [place] [address] Hematocrit (Bld) [Volume fraction] 36.6 % Low 37.0-47.0 [facility] ([place] Comment on above: Performed By: #### C BC, GFR, A1C, ADIFF, CRP, TSH, CMP, ANEU, ESR #### [place] [id number] Hgb 12.6 G/dL Normal 12.0-16.0 [facility] ([place] Comment on above: Performed By: #### C BC, GFR, A1C, ADIFF, CRP, TSH, CMP, ANEU, ESR #### [place] [id number] MCH (RBC) [Entitic mass] 30.6 pg Normal 27.0-31.2 [facility] ([place] Comment on above: Performed By: #### C BC, GFR, A1C, ADIFF, CRP, TSH, CMP, ANEU, ESR #### [place] [address] MCHC 34.3 G/dL Normal 33.0-37.0 [facility] ([place] Comment on above: Performed By: #### C BC, GFR, A1C, ADIFF, CRP, TSH, CMP, ANEU, ESR #### [address] [address] MCV (RBC) [Entitic vol] 89.3 fL Normal 80.0-94.0 [facility] ([place]) Comment on above: Performed By: #### C BC, GFR, A1C, ADIFF, CRP, TSH, CMP, ANEU, ESR #### [address] [address] Platelet 276 10 3/mcL Normal 130-400 [facility] ([place]) Comment on above: Performed By: #### C BC, GFR, A1C, ADIFF, CRP, TSH, CMP, ANEU, ESR #### [address] [address] Platelet mean volume (Bld) [Entitic vol] 8.3 fL Normal 7.4-10.4 [facility] ([place] Comment on above: Performed By: #### C BC, GFR, A1C, ADIFF, CRP, TSH, CMP, ANEU, ESR #### [address] [address] RBC 4.10 10 6/mcL Low 4.20-5.40 [facility] ([place] Comment on above: Performed By: #### C BC, GFR, A1C, ADIFF, CRP, TSH, CMP, ANEU, ESR #### [address] [address] WBC 9.4 10 3/mcL Normal 4.6-10.8 [facility] ([place] Comment on above: Performed By: #### C BC, GFR, A1C, ADIFF, CRP, TSH, CMP, ANEU, ESR #### [address] [address] CMPon 05-23-2024 Albumin Level 3.3 G/dL Low 3.4-4.8 [facility] ([place] Comment on above: Performed By: #### C BC, GFR, A1C, ADIFF, CRP, TSH, CMP, ANEU, ESR #### [address] [address] Albumin/Globulin [Mass ratio] 0.9 {ratio} Low 1.1-2.5 [facility] ([place] Comment on above: Performed By: #### C BC, GFR, A1C, ADIFF, CRP, TSH, CMP, ANEU, ESR #### [address] [address] ALP [Catalytic activity/Vol] 115 U/L Normal 40-135 [facility] ([place] Comment on above: Performed By: #### C BC, GFR, A1C, ADIFF, CRP, TSH, CMP, ANEU, ESR #### [address] [address] ALT [Catalytic activity/Vol] 35 U/L Normal 14-59 [facility] ([place] Comment on above: Performed By: #### C BC, GFR, A1C, ADIFF, CRP, TSH, CMP, ANEU, ESR #### [address] [address] AST [Catalytic activity/Vol] 42 U/L High 10-40 [facility] ([place]) Comment on above: Performed By: #### C BC, GFR, A1C, ADIFF, CRP, TSH, CMP, ANEU, ESR #### [address] [address] Bili Total 0.4 mg/dL Normal 0.2-1.0 [facility] ([place]) Comment on above: Result Comment: Use of this assay is not recommended for patients undergoing treatment with eltrombopag due to the potential for falsely elevated results. Performed By: #### C BC, GFR, A1C, ADIFF, CRP, TSH, CMP, ANEU, ESR #### [address] [address] BUN/Creatinine Ratio 12 ratio Normal 7-27 [facility] ([place]) Comment on above: Performed By: #### C BC, GFR, A1C, ADIFF, CRP, TSH, CMP, ANEU, ESR #### [address] [address] Calcium [Mass/Vol] 10.1 mg/dL Normal 8.4-10.2 [facility] [place] Comment on above: Performed By: #### C BC, GFR, A1C, ADIFF, CRP, TSH, CMP, ANEU, ESR #### [address] [address] Chloride [Moles/Vol] 103 mmol/L Normal 98-107 [facility] ([place]) Comment on above: Performed By: #### C BC, GFR, A1C, ADIFF, CRP, TSH, CMP, ANEU, ESR #### [address] [address] CO2 [Moles/Vol] 29 mmol/L Normal 23-31 [facility] ([place] Comment on above: Performed By: #### C BC, GFR, A1C, ADIFF, CRP, TSH, CMP, ANEU, ESR #### [place] [address] Creatinine [Mass/Vol] 0.92 mg/dL Normal 0.55-1.02 [facility] ([place]) Comment on above: Performed By: #### C BC, GFR, A1C, ADIFF, CRP, TSH, CMP, ANEU, ESR #### [address] [address] Electrolyte Balance 9.0 mEq/L Normal 4.0-15.0 Replaced by [facility] ([place]) Comment on above: Performed By: #### C BC, GFR, A1C, ADIFF, CRP, TSH, CMP, ANEU, ESR #### [address] [address] Globulin 3.7 G/dL Normal [facility] ([place]) Comment on above: Performed By: #### C BC, GFR, A1C, ADIFF, CRP, TSH, CMP, ANEU, ESR #### [address] [address] Glucose [Mass/Vol] 129 mg/dL High 83-110 [facility] [place] Comment on above: Performed By: #### C BC, GFR, A1C, ADIFF, CRP, TSH, CMP, ANEU, ESR #### [address] [address] Potassium [Moles/Vol] 3.7 mmol/L Normal 3.5-5.1 [facility] ([place]) Comment on above: Performed By: #### C BC, GFR, A1C, ADIFF, CRP, TSH, CMP, ANEU, ESR #### [address] [address] Sodium [Moles/Vol] 141 mmol/L Normal 136-145 [facility] [place] Comment on above: Performed By: #### C BC, GFR, A1C, ADIFF, CRP, TSH, CMP, ANEU, ESR #### [address] [address] Total Protein 7.0 G/dL Normal 6.4-8.2 [facility] ([place] Comment on above: Performed By: #### C BC, GFR, A1C, ADIFF, CRP, TSH, CMP, ANEU, ESR #### [address] [address] Urea nitrogen [Mass/Vol] 11 mg/dL Normal 7-18 [facility] ([place] Comment on above: Performed By: #### C BC, GFR, A1C, ADIFF, CRP, TSH, CMP, ANEU, ESR #### [address] [address] CRPon 05-23-2024 C-Reactive Protein 0.2 mg/dL Normal 0.0-0.3 [facility] [place] Comment on above: Performed By: #### C BC, GFR, A1C, ADIFF, CRP, TSH, CMP, ANEU, ESR #### [address] [address] ESRon 05-23-2024 Erythrocyte Sed Rate 15 mm/hr Normal 0-30 [facility] ([place]) Comment on above: Performed By: #### C BC, GFR, A1C, ADIFF, CRP, TSH, CMP, ANEU, ESR #### [address] [address] LABORATORYOrdered By: SYSTEM SYSTEM on 05-23-2024 Albumin [...] calculated value from Hemoglobin A1C and is career representative of the average blood glucose level [...] 05-23-2024 TSH Qn 1.98 m[IU]/L Normal 0.36-3.74 [facility] ([place]) Comment on above: Performed By: #### C BC, GFR, A1C, ADIFF, CRP, TSH, CMP, ANEU, ESR #### [facility] [address] [place], [place] [address] Gastroenterology Visit Repor ton 04-25-2024 Gastroenterology Visit Report [facility] Gastroenterology [address] [place] [address] OFFICE VISIT Date of Service: 04/25/24 MR#: [id number] Acct: [id number] Name: LUIZA GALO Rep #: [id number] : 1940 Provider: Doe Orr DO Age/Sex: 83/F Location: [facility] [place] [facility]I Status: Signed Intake Vital Signs 10/24/23 11:00 [...] you fallen in the past year?: Yes [facility] Medical History (Updated 04/25/24 @ 16:[address] Azar Friend, DO) Ascending cholangitis Immunosuppression due to drug therapy Former tobacco use Anxiety and depression History of left heart catheterization (LHC) ( 01/20/21) Paroxysmal atrial fibrillation Essential hypertension Atherosclerosis of coronary artery of [place] heart without angina pectoris senior care (current) use of anticoagulants Bradycardia Stroke Dysphagia [...] for follow up. 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 No specimens. HIDA 05.14.23 without acute/chronic finding; no bile leak. abd/pelvis CT 7.03.26 1. Stool within the distal sigmoid colon and rectum which may represent developing fecal impaction. The remainder of the colon is fluid-filled which may represent incipient diarrhea. 2. Common bile duct stent with approximately 6.5 cm of the stent within the duodenum. OV 7.24.24 pt reports that overall she is feeling [...] and we (more content not included)... Normal [facility] 12 Lead EKGon 04-19-2024 12 Lead EKG [facility] Cardiovascular Services [address] [place] [address] 12 Lead EKG 04/19/24 1612 MR#: [id number] Acct: [id number] Name: LUIZA GALO Rep #: [id number] : 1940 83 From: Pawna Reed MD Attending Dr: Status: DEP ER [...] ventricular complexes Otherwise normal ECG Confirmed by DEREK ALY, PAWAN ([id number]), editorial intern NEERAJ JUAN ([id number]) on 04/23/2024 11:08:10 AM Referred By: Confirmed By:PAWAN REDE MD 04/23/24 1108 Date Pawan Reed MD CC: Dr. Enrrique Eric DO; Dr. Rosalind Rubalcava MD Signed Normal [facility] Basic Metabolic Profile (BMP )on 04-19-2024 BUN/CRE 9.6 RATIO Low 10-20 [facility] Comment on above: Order Comment: 'TROP ' Serial specimen #1, #2 or #3: 1 Performed By: #### L 500.3400, L100.0100, L501.4020, L501.2450, L500.2500 #### [facility] [address] [place], [address] CA,Total 9.9 mg/dL Normal 8.5-10.1 [facility] Comment on above: Order Comment: 'TROP ' Serial specimen #1, #2 or #3: 1 Performed By: #### L 500.3400, L100.0100, L501.4020, L501.2450, L500.2500 #### [facility] [address] [place], [address] Chloride [Moles/Vol] 105 mmol/L Normal 98-107 [facility] Comment on above: Order Comment: 'TROP ' Serial specimen #1, #2 or #3: 1 Performed By: #### L 500.3400, L100.0100, L501.4020, L501.2450, L500.2500 #### [facility] [address] [place], [address] CO2 [Moles/Vol] 30.0 mmol/L Normal 21.0-32.0 [facility] Comment on above: Order Comment: 'TROP ' Serial specimen #1, #2 or #3: 1 Performed By: #### L 500.3400, L100.0100, L501.4020, L501.2450, L500.2500 #### [facility] [address] [place], [address] Creatinine [Mass/Vol] 0.84 mg/dL Normal 0.55-1.02 [facility] Comment on above: Order Comment: 'TROP ' Serial specimen #1, #2 or #3: 1 Result Comment: The validity of the calculated GFR GFRAA in patients over 70 years has not been determined. Clinical correlation is essential. Performed By: #### L 500.3400, L100.0100, L501.4020, L501.2450, L500.2500 #### [facility] [address] [place], [address] ECRCL 49.93 ml/min Normal [facility] Comment on above: Order Comment: 'TROP ' Serial specimen #1, #2 or #3: 1 Performed By: #### L 500.3400, L100.0100, L501.4020, L501.2450, L500.2500 #### [facility] [address] [place], [address] EST GFR - AA 84 mL/min Normal >60 [facility] Comment on above: Order Comment: 'TROP ' Serial specimen #1, #2 or #3: 1 Result Comment: Afri can Austrian GFR Calc Performed By: #### L 500.3400, L100.0100, L501.4020, L501.2450, L500.2500 #### [facility] [address] [place], [address] GAP 6 Normal 5-15 [facility] Comment on above: Order Comment: 'TROP ' Serial specimen #1, #2 or #3: 1 Performed By: #### L 500.3400, L100.0100, L501.4020, L501.2450, L500.2500 #### [facility] [address] [place], [address] GFR/1.73 sq M.predicted among non-blacks MDRD (S/P/Bld) [Vol rate/Area] 70 mL/min/{1.73_m2} Normal >60 [facility] Comment on above: Order Comment: 'TROP ' Serial specimen #1, #2 or #3: 1 Result Comment: Non- GFR Calc Performed By: #### L 500.3400, L100.0100, L501.4020, L501.2450, L500.2500 #### [facility] [address] [place], [address] Glucose [Mass/Vol] 214 mg/dL High 74-[address] [facility] Comment on above: Order Comment: 'TROP ' Serial specimen #1, #2 or #3: 1 Result Comment: Gluc ose result greater than or equal to 200 mg/dL suggests DIABETES MELLITUS per A.D.A. criteria. Performed By: #### L 500.3400, L100.0100, L501.4020, L501.2450, L500.2500 #### [facility] [address] [place], [address] Potassium [Moles/Vol] 3.6 mmol/L Normal 3.5-5.1 [facility] Comment on above: Order Comment: 'TROP ' Serial specimen #1, #2 or #3: 1 Performed By: #### L 500.3400, L100.0100, L501.4020, L501.2450, L500.2500 #### [facility] [address] [place], [address] Sodium [Moles/Vol] 141 mmol/L Normal 136-[address] [facility] Comment on above: Order Comment: 'TROP ' Serial specimen #1, #2 or #3: 1 Performed By: #### L 500.3400, L100.0100, L501.4020, L501.2450, L500.2500 #### [facility] [address] [place], [address] Urea nitrogen [Mass/Vol] 8 mg/dL Normal 7-18 [facility] Comment on above: Order Comment: 'TROP ' Serial specimen #1, #2 or #3: 1 Performed By: #### L 500.3400, L100.0100, L501.4020, L501.2450, L500.2500 #### [facility] [address] [place], [address] CBC W/Diff, Automatedon 04-02-2023 Absolute Lymph 3.61 X10 3/uL Normal 0.83-4.51 [facility] Comment on above: Performed By: #### L 500.3400, L100.0100, L501.4020, L501.2450, L500.2500 #### [facility] [address] [place], [address] Absolute Neut 3.1 X10 3/uL Normal 2.0-7.7 [facility] Comment on above: Performed By: #### L 500.3400, L100.0100, L501.4020, L501.2450, L500.2500 #### [facility] [address] [place], [address] Basophils/100 WBC (Bld) 0.5 % Normal 0-1 [facility] Comment on above: Performed By: #### L 500.3400, L100.0100, L501.4020, L501.2450, L500.2500 #### [facility] [address] [place], [address] Eosinophils/100 WBC (Bld) 1.5 % Normal 0-5 [facility] Comment on above: Performed By: #### L 500.3400, L100.0100, L501.4020, L501.2450, L500.2500 #### [facility] [address] [place], [address] Erythrocyte distribution width (RBC) [Ratio] 12.9 % Normal 11.6-14.6 [facility] Comment on above: Performed By: #### L 500.3400, L100.0100, L501.4020, L501.2450, L500.2500 #### [facility] [address] [place], [address] Hematocrit (Bld) [Volume fraction] 36.4 % Low 37-47 [facility] Comment on above: Performed By: #### L 500.3400, L100.0100, L501.4020, L501.2450, L500.2500 #### [facility] [address] [facility] [place], [address] Hemoglobin (Bld) [Mass/Vol] 12.3 g/dL Normal 12.0-15.0 [facility] Comment on above: Performed By: #### L 500.3400, L100.0100, L501.4020, L501.2450, L500.2500 #### [facility] [address] [facility] [place], [address] IG% 0.300 Normal 0.0-0.9 [facility] Comment on above: Result Comment: IG% - Immature Granulocytes (promyelocytes, myelocytes and metamyelocytes) > 1% indicates that a LEFT SHIFT is Present. Performed By: #### L 500.3400, L100.0100, L501.4020, L501.2450, L500.2500 #### [facility] [address] [place], [address] Lymphocytes/100 WBC (Bld) 49.6 % High 19-41 [facility] Comment on above: Performed By: #### L 500.3400, L100.0100, L501.4020, L501.2450, L500.2500 #### [facility] [address] [place], [address] MCH (RBC) [Entitic mass] 29.6 pg Normal 27.0-32.0 [facility] Comment on above: Performed By: #### L 500.3400, L100.0100, L501.4020, L501.2450, L500.2500 #### [facility] [address] [place], [address] MCHC (RBC) [Mass/Vol] 33.8 g/dL Normal 32-36 [facility] Comment on above: Performed By: #### L 500.3400, L100.0100, L501.4020, L501.2450, L500.2500 #### [facility] [address] [place], [address] MCV (RBC) [Entitic vol] 87.7 fL Normal 81-99 [facility] Comment on above: Performed By: #### L 500.3400, L100.0100, L501.4020, L501.2450, L500.2500 #### [facility] [address] [place], [address] Monocytes/100 WBC (Bld) 5.6 % Normal 0-10 [facility] Comment on above: Performed By: #### L 500.3400, L100.0100, L501.4020, L501.2450, L500.2500 #### [facility] [address] [place], [address] Neutrophils/100 WBC (Bld) 42.5 % Low 47-70 [facility] Comment on above: Performed By: #### L 500.3400, L100.0100, L501.4020, L501.2450, L500.2500 #### [facility] [address] [place], [address] Nucleated RBC (Bld) [#/Vol] 0 10*3/uL Normal 0-5 [facility] Comment on above: Performed By: #### L 500.3400, L100.0100, L501.4020, L501.2450, L500.2500 #### [facility] [address] [place], [address] Platelet mean volume (Bld) [Entitic vol] 9.4 fL Normal 6.2-12.0 [facility] Comment on above: Performed By: #### L 500.3400, L100.0100, L501.4020, L501.2450, L500.2500 #### [facility] [address] [place], [address] Platelets (Bld) [#/Vol] 280 10*3/uL Normal 150-450 [facility] Comment on above: Performed By: #### L 500.3400, L100.0100, L501.4020, L501.2450, L500.2500 #### [facility] [address] [place], [address] RBC (Bld) [#/Vol] 4.15 10*6/uL Low 4.2-5.4 [facility] Comment on above: Performed By: #### L 500.3400, L100.0100, L501.4020, L501.2450, L500.2500 #### [facility] [address] [place], [address] RDW SD 40.8 fl Normal 35.1-43.9 [facility] Comment on above: Performed By: #### L 500.3400, L100.0100, L501.4020, L501.2450, L500.2500 #### [facility] [address] [place], [address] WBC (Bld) [#/Vol] 7.3 10*3/uL Normal 4.4-11.[address] [facility] Comment on above: Performed By: #### L 500.3400, L100.0100, L501.4020, L501.2450, L500.2500 #### [facility] [address] [place], [place], [address] Chest 1 View (Portable)on Chest 1 View (Portable) [facility] Imaging Services [address] [facility] [place] [address] Chest 1 View (Portable) MR#: [id number] Acct: [id number] Name: LUIZA GALO Rep #: [id number] : 1940 F 83 From: Lorne Gomez DO PCP: Dr. Rosalind Rubalcava MD Status: REG ER Study: Chest 1 View (Portable) Date of Exam: 04/19/24 Exam# [id number] Ordering Dr: [place] [id number] INDICATION: chest pain EXAMINATION/TECHNIQUE: X-RAY - XR [...] Signed: Lorne Gomez DO at 17:50 EDT , CC: Dr. Enrrique Eric DO; Dr. 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 She notes increasing belching and gas over the past few days and wonders if the stomach lining is irritated [facility] Medical History Ascending cholangitis Immunosuppression due to drug therapy Former tobacco use Anxiety and depression History of left heart catheterization (LHC) ( 01/20/21) Paroxysmal atrial fibrillation Essential hypertension Atherosclerosis of coronary artery of [place] heart without angina pectoris senior care (current) use of anticoagulants Bradycardia Stroke Dysphagia [...] (From Xult (more content not included)... Normal [facility] L501.4020on 04-19-2024 TROPONIN-I HS 18 pg/mL Normal 3.0-54.0 [facility] Comment on above: Order Comment: 'TROP ' Serial specimen #1, #2 or #3: 1 Result Comment: Bobby hickman Note: New Test Units and Gender Specific Reference Ranges. For more information see Policy Stat Procedure [facility] High Sensitivity Troponin (TNIH) and attachments. Performed By: #### L 500.3400, L100.0100, L501.4020, L501.2450, L500.2500 #### [facility] [address] [place], [address] TROPONIN-I HS 18 pg/mL Normal 3.0-54.0 [facility] Comment on above: Order Comment: 'TROP ' Serial specimen #1, #2 or #3: 1 Result Comment: Pletyesha hickman Note: New Test Units and Gender Specific Reference Ranges. For more information see Policy Stat Procedure [facility] High Sensitivity Troponin (TNIH) and attachments. Performed By: #### L 500.3400, L100.0100, L501.4020, L501.2450, L500.2500 #### [facility] [address] [place], [address] Lipaseon 04-19-2024 Lipase [Catalytic activity/Vol] 22 U/L Normal 13-75 [facility] Comment on above: Order Comment: 'TROP ' Serial specimen #1, #2 or #3: 1 Result Comment: Pletyesha hickman note: LIPASE revised reference range effective 23. New Lipase methodology. Expected to produce lower values than the previous assay method. NEW Reference Range: 13 - 75 U/L Performed By: #### L 500.3400, L100.0100, L501.4020, L501.2450, L500.2500 #### [facility] [address] [place], [address] Liver Profileon 04-19-2024 Albumin [Mass/Vol] 3.1 g/dL Low 3.2-5.[address] [facility] Comment on above: Order Comment: 'TROP ' Serial specimen #1, #2 or #3: 1 Performed By: #### L 500.3400, L100.0100, L501.4020, L501.2450, L500.2500 #### [facility] [address] [place], [address] ALK P 114 U/L Normal 45-117 [facility] Comment on above: Order Comment: 'TROP ' Serial specimen #1, #2 or #3: 1 Performed By: #### L 500.3400, L100.0100, L501.4020, L501.2450, L500.2500 #### [facility] [address] [place], [address] ALT [Catalytic activity/Vol] 29 U/L Normal 13-56 [facility] Comment on above: Order Comment: 'TROP ' Serial specimen #1, #2 or #3: 1 Performed By: #### L 500.3400, L100.0100, L501.4020, L501.2450, L500.2500 #### [facility] [address] [place], [address] AST [Catalytic activity/Vol] 30 U/L Normal 15-37 [facility] Comment on above: Order Comment: 'TROP ' Serial specimen #1, #2 or #3: 1 Performed By: #### L 500.3400, L100.0100, L501.4020, L501.2450, L500.2500 #### [facility] [address] [place], [address] Bilirubin [Mass/Vol] 0.30 mg/dL Normal 0.20-1.00 [facility] Comment on above: Order Comment: 'TROP ' Serial specimen #1, #2 or #3: 1 Result Comment: For patients on eltrombopag therapy, use of Dimension [facility] TBIL is not recommended. Performed By: #### L 500.3400, L100.0100, L501.4020, L501.2450, L500.2500 #### [facility] [address] [place], [address] Bilirubin.direct [Mass/Vol] 0.10 mg/dL Normal 0.00-0.30 [facility] Comment on above: Order Comment: 'TROP ' Serial specimen #1, #2 or #3: 1 Performed By: #### L 500.3400, L100.0100, L501.4020, L501.2450, L500.2500 #### [facility] [address] [place], [address] Globulin (S) [Mass/Vol] 3.9 g/dL Normal 2.2-4.2 [facility] Comment on above: Order Comment: 'TROP ' Serial specimen #1, #2 or #3: 1 Performed By: #### L 500.3400, L100.0100, L501.4020, L501.2450, L500.2500 #### [facility] [address] [place], [address] T PROT 7.0 g/dL Normal 6.4-8.2 [facility] Comment on above: Order Comment: 'TROP ' Serial specimen #1, #2 or #3: 1 Performed By: #### L 500.3400, L100.0100, L501.4020, L501.2450, L500.2500 #### [facility] [address] [place], [address] Abdomen/Pelvis W IV Cont ONL Yon 04-07-2024 Abdomen/Pelvis W IV Cont ONLY [facility] Imaging Services [address] [place], [place] [address] Abdomen/Pelvis W IV Cont ONLY MR#: [id number] Acct: [id number] Name: LUIZA GALO Rep #: [id number] : 1940 F 83 From: Shaw Chawla MD PCP: Dr. Rosalind Rubalcava MD Status: DEP ER Study: Abdomen/Pelvis W IV Cont ONLY Date of Exam: Exam# [id number] Ordering Dr: [place] [id number] EXAM: CT ABDOMEN AND PELVIS WITH INTRAVENOUS [...] Tonny Herbert MD; Dr. Rosalind Rubalcava MD Mold Car Pusher: Signed Normal [facility] Basic Metabolic Profile (BMP )on 04-07-2024 BUN/CRE 12.3 RATIO Normal 10-20 [facility] Comment on above: Performed By: #### L 100.0100, L500.2500, M100.7900 #### [facility] [address] [place], [address] CA,Total 9.7 mg/dL Normal 8.5-10.1 [facility] Comment on above: Performed By: #### L 100.0100, L500.2500, M100.7900 #### [facility] [address] [place], [address] Chloride [Moles/Vol] 106 mmol/L Normal 98-107 [facility] Comment on above: Performed By: #### L 100.0100, L500.2500, M100.7900 #### [facility] [address] [place], [address] CO2 [Moles/Vol] 27.0 mmol/L Normal 21.0-32.0 [facility] Comment on above: Performed By: #### L 100.0100, L500.2500, M100.7900 #### [facility] [address] [place], [address] Creatinine [Mass/Vol] 1.06 mg/dL High 0.55-1.02 [facility] Comment on above: Result Comment: The validity of the calculated GFR GFRAA in patients over 70 years has not been determined. Clinical correlation is essential. Performed By: #### L 100.0100, L500.2500, M100.7900 #### [facility] [address] [place], [address] ECRCL 39.81 ml/min Normal [facility] Comment on above: Performed By: #### L 100.0100, L500.2500, M100.7900 #### [facility] [address] [place], [address] EST GFR - AA 64 mL/min Normal >60 [facility] Comment on above: Result Comment: Afri can Austrian GFR Calc Performed By: #### L 100.0100, L500.2500, M100.7900 #### [facility] [address] [place], [address] GAP 8 Normal 5-15 [facility] Comment on above: Performed By: #### L 100.0100, L500.2500, M100.7900 #### [facility] [address] [place], [address] GFR/1.73 sq M.predicted among non-blacks MDRD (S/P/Bld) [Vol rate/Area] 53 mL/min/{1.73_m2} Low >60 [facility] Comment on above: Result Comment: Non- GFR Calc Performed By: #### L 100.0100, L500.2500, M100.7900 #### [facility] [address] [place], [address] Glucose [Mass/Vol] 153 mg/dL High 74-[address] [facility] Comment on above: Result Comment: Fast ing Glucose result greater than or equal to 126 mg/dL suggests DIABETES MELLITUS per A.D.A. criteria. Performed By: #### L 100.0100, L500.2500, M100.7900 #### [facility] [address] [place], [address] Potassium [Moles/Vol] 3.4 mmol/L Low 3.5-5.1 [facility] Comment on above: Performed By: #### L 100.0100, L500.2500, M100.7900 #### [facility] [address] [place], [address] Sodium [Moles/Vol] 141 mmol/L Normal 136-[address] [facility] Comment on above: Performed By: #### L 100.0100, L500.2500, M100.7900 #### [facility] [address] [place], [address] Urea nitrogen [Mass/Vol] 13 mg/dL Normal 7-18 [facility] Comment on above: Performed By: #### L 100.0100, L500.2500, M100.7900 #### [facility] [address] [place], [address] CBC W/Diff, Automatedon 07-0 6-4 Absolute Lymph 2.69 X10 3/uL Normal 0.83-4.51 [facility] Comment on above: Performed By: #### L 100.0100, L500.2500, M100.7900 #### [facility] [address] [place], [address] Absolute Neut 12.4 X10 3/uL High 2.0-7.7 [facility] Comment on above: Performed By: #### L 100.0100, L500.2500, M100.7900 #### [facility] [address] [place], [address] Basophils/100 WBC (Bld) 0.4 % Normal 0-1 [facility] Comment on above: Performed By: #### L 100.0100, L500.2500, M100.7900 #### [facility] [address] [place], [address] Eosinophils/100 WBC (Bld) 0.1 % Normal 0-5 [facility] Comment on above: Performed By: #### L 100.0100, L500.2500, M100.7900 #### [facility] [address] [place], [address] Erythrocyte distribution width (RBC) [Ratio] 13.3 % Normal 11.6-14.6 [facility] Comment on above: Performed By: #### L 100.0100, L500.2500, M100.7900 #### [facility] [address] [place], [address] Hematocrit (Bld) [Volume fraction] 41.0 % Normal 37-47 [facility] Comment on above: Performed By: #### L 100.0100, L500.2500, M100.7900 #### [facility] [address] [place], [address] Hemoglobin (Bld) [Mass/Vol] 13.6 g/dL Normal 12.0-15.0 [facility] Comment on above: Performed By: #### L 100.0100, L500.2500, M100.7900 #### [facility] [address] [place], [address] IG% 0.500 Normal 0.0-0.9 [facility] Comment on above: Result Comment: IG% - Immature Granulocytes (promyelocytes, myelocytes and metamyelocytes) > 1% indicates that a LEFT SHIFT is Present. Performed By: #### L 100.0100, L500.2500, M100.7900 #### [facility] [address] [place], [address] Lymphocytes/100 WBC (Bld) 16.8 % Low 19-41 [facility] Comment on above: Performed By: #### L 100.0100, L500.2500, M100.7900 #### [facility] [address] [place], [address] MCH (RBC) [Entitic mass] 29.5 pg Normal 27.0-32.0 [facility] Comment on above: Performed By: #### L 100.0100, L500.2500, M100.7900 #### [facility] [address] [place], [address] MCHC (RBC) [Mass/Vol] 33.2 g/dL Normal 32-36 [facility] Comment on above: Performed By: #### L 100.0100, L500.2500, M100.7900 #### [facility] [address] [place], [address] MCV (RBC) [Entitic vol] 88.9 fL Normal 81-99 [facility] Comment on above: Performed By: #### L 100.0100, L500.2500, M100.7900 #### [facility] [address] [place], [address] Monocytes/100 WBC (Bld) 4.4 % Normal 0-10 [facility] Comment on above: Performed By: #### L 100.0100, L500.2500, M100.7900 #### [facility] [address] [place], [address] Neutrophils/100 WBC (Bld) 77.8 % High 47-70 [facility] Comment on above: Performed By: #### L 100.0100, L500.2500, M100.7900 #### [facility] [address] [place], [address] Nucleated RBC (Bld) [#/Vol] 0 10*3/uL Normal 0-5 [facility] Comment on above: Performed By: #### L 100.0100, L500.2500, M100.7900 #### [facility] [address] [place], [address] Platelet mean volume (Bld) [Entitic vol] 9.8 fL Normal 6.2-12.0 [facility] Comment on above: Performed By: #### L 100.0100, L500.2500, M100.7900 #### [facility] [address] [place], [address] Platelets (Bld) [#/Vol] 293 10*3/uL Normal 150-450 [facility] Comment on above: Performed By: #### L 100.0100, L500.2500, M100.7900 #### [facility] [address] [place], [address] RBC (Bld) [#/Vol] 4.61 10*6/uL Normal 4.2-5.4 [facility] Comment on above: Performed By: #### L 100.0100, L500.2500, M100.7900 #### [facility] [address] [place], [address] RDW SD 43.0 fl Normal 35.1-43.9 [facility] Comment on above: Performed By: #### L 100.0100, L500.2500, M100.7900 #### [facility] [address] [place], [address] WBC (Bld) [#/Vol] 16.0 10*3/uL High 4.4-11.0 [facility] Comment on above: Performed By: #### L 100.0100, L500.2500, M100.7900 #### [facility] [address] [place], [address] Emergency Department Summary on 04-07-2024 Emergency Department Summary [facility] Medical Records Department [address] [place] [address] Emergency Department Summary 04/07/24 MR#: [id number] Acct: [id number] Name: LUIZA GALO Rep #: [id number] : 1940 83 From: Tonny Herbert MD [...] stool to no effect on her symptoms. 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 Normal [facility] Stool Occult Blood iFOBon STOB Positive Normal [facility] Comment on above: Performed By: #### L 100.0100, L500.2500, M100.7900 #### [facility] [address] [place], [address] 12 Lead EKGon 04-02-2024 12 Lead EKG [facility] Cardiovascular Services [address] [place] [address] 12 Lead EKG 04/01/242015 MR#: [id number] Acct: [id number] Name: LUIZA GALO Rep #: [id number] : 1940 83 From: Pawan Reed MD Attending Dr: Dr. El Best MD Status: DIS BJ Ordering Dr: Fausto Wright MD Date: 04/02/24 Location: [facility] Sex: F C Admitted: 04/01/24 Test [...] UNCONFIRMED Confirmed by DEREK ALY, PAWAN ([id number]), editorial intern DARLEEN MAN ([id number]) on 04/03/2024 5:56:23 AM Referred By: Confirmed By:PAWAN REED MD 04/03/24 0556 Date Pawan Reed MD CC: Dr. El Best MD; Dr. Fausto Wright MD; Dr. Rosalind Rubalcava MD Signed Normal [facility] Basic Metabolic Profile (BMP )on 04-02-2024 BUN/CRE 16.3 RATIO Normal 10-20 [facility] Comment on above: Performed By: #### L 501.080 #### [facility] [address] [place], [address] CA,Total 8.8 mg/dL Normal 8.5-10.1 [facility] Comment on above: Performed By: #### L 501.080 #### [facility] [address] [place], [address] Chloride [Moles/Vol] 108 mmol/L High 98-107 [facility] Comment on above: Performed By: #### L 501.080 #### [facility] [address] [place], [address] CO2 [Moles/Vol] 28.0 mmol/L Normal 21.0-32.0 [facility] Comment on above: Performed By: #### L 501.080 #### [facility] [address] [place], [address] Creatinine [Mass/Vol] 0.98 mg/dL Normal 0.55-1.02 [facility] Comment on above: Result Comment: The validity of the calculated GFR GFRAA in patients over 70 years has not been determined. Clinical correlation is essential. Performed By: #### L 501.080 #### [facility] [address] [place], [address] ECRCL 41.98 ml/min Normal [facility] Comment on above: Performed By: #### L 501.080 #### [facility] [address] [place], [address] EST GFR - AA 70 mL/min Normal >60 [facility] Comment on above: Result Comment: Afri can [place] GFR Calc Performed By: #### L 501.080 #### [facility] [address] [place], [address] GAP 6 Normal 5-15 [facility] Comment on above: Performed By: #### L 501.080 #### [facility] [address] [place], [address] GFR/1.73 sq M.predicted among non-blacks MDRD (S/P/Bld) [Vol rate/Area] 58 mL/min/{1.73_m2} Low >60 [facility] Comment on above: Result Comment: Non- GFR Calc Performed By: #### L 501.080 #### [facility] [address] [place], [address] Glucose [Mass/Vol] 140 mg/dL High 74-[address] [facility] Comment on above: Result Comment: Fast ing Glucose result greater than or equal to 126 mg/dL suggests DIABETES MELLITUS per A.D.A. criteria. Performed By: #### L 501.080 #### [facility] [address] [place], [address] Potassium [Moles/Vol] 3.8 mmol/L Normal 3.5-5.1 [facility] Comment on above: Performed By: #### L 501.080 #### [facility] [address] [place], [address] Sodium [Moles/Vol] 142 mmol/L Normal 136-[address] [facility] Comment on above: Performed By: #### L 501.080 #### [facility] [address], [address] Urea nitrogen [Mass/Vol] 16 mg/dL Normal 7-18 [facility] Comment on above: Performed By: #### L 501.080 #### [facility] [address], [address] Bedside Glucoseon 04-02-2024 FINGERSTICK GLU 177 mg/dL High 74-106 [facility] Comment on above: Result Comment: TRAE GEMENT OF PATIENT CARE PER NURSING PROTOCOL Performed By: #### L 501.080 #### [facility] [address], [address] FINGERSTICK GLU 119 mg/dL High 74-106 [facility] Comment on above: Result Comment: TRAE GEMENT OF PATIENT CARE PER NURSING PROTOCOL Performed By: #### L 500.3400, L100.0100, L501.4020, L501.2450, L500.2500 #### [facility] [address], [address] CBC W/Diff, Automatedon 07-0 Absolute Lymph 2.78 X10 3/uL Normal 0.83-4.51 [facility] Comment on above: Performed By: #### L 501.080 #### [facility] [address], [address] Absolute Neut 5.0 X10 3/uL Normal 2.0-7.7 [facility] Comment on above: Performed By: #### L 501.080 #### [facility] [address], [address] Basophils/100 WBC (Bld) 0.5 % Normal 0-1 [facility] Comment on above: Performed By: #### L 501.080 #### [facility] [address] [place], [address] Eosinophils/100 WBC (Bld) 1.3 % Normal 0-5 [facility] Comment on above: Performed By: #### L 501.080 #### [facility] [address] [place], [address] Erythrocyte distribution width (RBC) [Ratio] 13.6 % Normal 11.6-14.6 [facility] Comment on above: Performed By: #### L 501.080 #### [facility] [address] [place], [address] Hematocrit (Bld) [Volume fraction] 37.5 % Normal 37-47 [facility] Comment on above: Performed By: #### L 501.080 #### [facility] [address] [place], [address] Hemoglobin (Bld) [Mass/Vol] 12.4 g/dL Normal 12.0-15.0 [facility] Comment on above: Performed By: #### L 501.080 #### [facility] [address] [place], [address] IG% 0.400 Normal 0.0-0.9 [facility] Comment on above: Result Comment: IG% - Immature Granulocytes (promyelocytes, myelocytes and metamyelocytes) > 1% indicates that a LEFT SHIFT is Present. Performed By: #### L 501.080 #### [facility] [address] [place], [address] Lymphocytes/100 WBC (Bld) 33.2 % Normal 19-41 [facility] Comment on above: Performed By: #### L 501.080 #### [facility] [address] [place], [address] MCH (RBC) [Entitic mass] 29.7 pg Normal 27.0-32.0 [facility] Comment on above: Performed By: #### L 501.080 #### [facility] [address] [place], [address] MCHC (RBC) [Mass/Vol] 33.1 g/dL Normal 32-36 [facility] Comment on above: Performed By: #### L 501.080 #### [facility] [address] [place], [address] MCV (RBC) [Entitic vol] 89.9 fL Normal 81-99 [facility] Comment on above: Performed By: #### L 501.080 #### [facility] [address] [place], [address] Monocytes/100 WBC (Bld) 5.4 % Normal 0-10 [facility] Comment on above: Performed By: #### L 501.080 #### [facility] [address] [place], [address] Neutrophils/100 WBC (Bld) 59.2 % Normal 47-70 [facility] Comment on above: Performed By: #### L 501.080 #### [facility] [address] [place], [address] Nucleated RBC (Bld) [#/Vol] 0 10*3/uL Normal 0-5 [facility] Comment on above: Performed By: #### L 501.080 #### [facility] [address] [place], [address] Platelet mean volume (Bld) [Entitic vol] 9.7 fL Normal 6.2-12.0 [facility] Comment on above: Performed By: #### L 501.080 #### [facility] [address] [place], [address] Platelets (Bld) [#/Vol] 258 10*3/uL Normal 150-450 [facility] Comment on above: Performed By: #### L 501.080 #### [facility] [address] [place], [address] RBC (Bld) [#/Vol] 4.17 10*6/uL Low 4.2-5.4 [facility] Comment on above: Performed By: #### L 501.080 #### [facility] [address] [place], [address] RDW SD 44.6 fl High 35.1-43.9 [facility] Comment on above: Performed By: #### L 501.080 #### [facility] [address] [place], [address] WBC (Bld) [#/Vol] 8.4 10*3/uL Normal 4.4-11.[address] [facility] Comment on above: Performed By: #### L 501.080 #### [facility] [address] [place], [address] Hemoglobin A1con 04-02-2024 HbA1c (Bld) [Mass fraction] 6.9 % High 3.8-5.6 [facility] Comment on above: Result Comment: Norm al < 5.7 % Prediabetic 5.7 - 6.4 % Diabetic >or= 6.5 % Please note range changes. Performed By: #### L 501.080 #### [facility] [address] [place], [address] L501.4020on 04-02-2024 TROPONIN-I HS 21 pg/mL Normal 3.0-54.0 [facility] Comment on above: Order Comment: 'TROP ' Serial specimen #1, #2 or #3: 5 Result Comment: Plea se Note: New Test Units and Gender Specific Reference Ranges. For more information see Policy Stat Procedure [facility] High Sensitivity Troponin (TNIH) and attachments. Performed By: #### L 501.4020 #### [facility] [address] [place], [address] TROPONIN-I HS 27 pg/mL Normal 3.0-54.0 [facility] Comment on above: Order Comment: 'TROP ' Serial specimen #1, #2 or #3: 4NURSE NOTIFIED ME OF TROPONIN WHILE I WAS ON FLOOR EVIN ITWHILE UP THERE. Result Comment: Plea Note: New Test Units and Gender Specific Reference Ranges. For more information see Policy Stat Procedure [facility] High Sensitivity Troponin (TNIH) and attachments. Performed By: #### L 501.080 #### [facility] [address] [place], [address] Lipid Profileon 04-02-2024 Cholesterol [Mass/Vol] 136 mg/dL Normal [address] [facility] Comment on above: Result Comment: <200 mg/dL Desirable 200-240 mg/dL Borderline >240 mg/dL High Risk Performed By: #### L 501.080 #### [facility] [address] [place], [address] Cholesterol in HDL [Mass/Vol] 41 mg/dL Normal [facility] Comment on above: Result Comment: The drugs N-Acetylcysteine and Metamizole may falsely depress this assay. Reference Range HDL <40 mg/dL Low HDL Cholesterol HDL >or= 60 mg/dL High HDL Cholesterol Performed By: #### L 501.080 #### [facility] [address] [place], [address] Cholesterol in LDL [Mass/Vol] 59 mg/dL Normal 0-130 [facility] Comment on above: Performed By: #### L 501.080 #### [facility] [address] [place], [address] Cholesterol in VLDL [Mass/Vol] 36 mg/dL Normal 5-40 [facility] Comment on above: Performed By: #### L 501.080 #### [facility] [address] [place], [address] Triglyceride [Mass/Vol] 180 mg/dL Normal [facility] Comment on above: Result Comment: The drugs N-Acetylcysteine and Metamizole may falsely depress this assay. Serum Triglycerides Reference Interval Normal <150 mg/dL Borderline high 150 - 199 mg/dL High 200 - 499 mg/dL Very High > or = 500 mg/dL Performed By: #### L 501.080 #### [facility] [address] [place], [address] Stress Reporton 04-02-2024 Stress Report [facility] Cardi[facility] Services [address] [place] [address] MR#: [id number] Acct: [id number] Name: LUIZA GALO Rep #: [id number] : 1940 83 From: Pawan Reed MD [...] Dr. Rosalind Rubalcava MD Date Dictated: 04/02/24 123 Date Transcribed: 04/02/241234 Mold Car Pusher: CO Signed Normal [facility] 12 Lead EKGon 04-01-2024 12 Lead EKG [facility] Cardiovascular Services [address] [place] [address] 12 Lead EKG 04/02/24 05 MR#: [id number] Acct: [id number] Name: LUIZA GALO Rep #: [id number] : 1940 83 From: Pawan Reed MD Attending Dr: Dr. El Best MD Status: DIS BJ Ordering Dr: Fausto Wright MD Date: 04/01/24 Location: [facility] Sex: F C Admitted: 04/01/24 Test [...] UNCONFIRMED Confirmed by DEREK ALY, PAWAN ([id number]), editorial intern DARLEEN MAN ([id number]) on 04/03/2024 5:55:11 AM Referred By: Confirmed By:PAWAN REED MD 04/03/24 0555 Date Pawan Reed MD CC: Dr. El Best MD; Dr. Fausto Wright MD; Dr. Rosalind Rubalcava MD Signed Normal [facility] 12 Lead EKG [facility] Cardiovascular Services [address] [place] [address] 12 Lead EKG 04/01/24 1437 MR#: [id number] Acct: [id number] Name: LUIZA GALO Rep #: [id number] : 1940 83 From: Deric Cortez MD Attending Dr: Dr. El Best MD Status: ADM BJ Ordering Dr: Markel Sotomayor SENIOR BOOKKEEPER-C Date: 04/01/24 Location: [facility] Sex: F C Admitted: 04/01/24 Test Reason : CP Blood Pressure : / mmHG Vent. Rate : 061 BPM Atrial Rate : 061 BPM P-R Int : 206 ms QRS Dur : 090 ms QT Int : 450 ms P-R-T Axes : 075 043 073 degrees QTc Int : 453 ms Normal sinus rhythm Normal ECG Confirmed by Deric Cortez ([id number]), editorial intern DARLEEN MAN ([id number]) on 04/02/2024 9:19:37 AM Referred By: Confirmed By:Deric Cortez 04/02/24 0919 Deric Cortez MD CC: SENIOR BOOKKEEPER-C Markel Sotomayor; Dr. El Best MD; Dr. Rosalind Rubalcava MD Signed Normal [facility] Bedside Glucoseon 04-01-2024 FINGERSTICK GLU 122 mg/dL High 74-106 [facility] Comment on above: Result Comment: TRAE CLAYENT OF PATIENT CARE PER NURSING PROTOCOL Performed By: #### L 501.080 #### [facility] [address] [place], [address] CBC W/Diff, Automatedon 03-05 Absolute Lymph 2.78 X10 3/uL Normal 0.83-4.51 [facility] Comment on above: Performed By: #### L 500.3400, L100.0100, L501.4020, L501.2450, L500.2500 #### [facility] [address] [place], [address] Absolute Neut 3.5 X10 3/uL Normal 2.0-7.7 [facility] Comment on above: Performed By: #### L 500.3400, L100.0100, L501.4020, L501.2450, L500.2500 #### [facility] [address] [place], [address] Basophils/100 WBC (Bld) 0.6 % Normal 0-1 [facility] Comment on above: Performed By: #### L 500.3400, L100.0100, L501.4020, L501.2450, L500.2500 #### [facility] [address] [place], [address] Eosinophils/100 WBC (Bld) 2.1 % Normal 0-5 [facility] Comment on above: Performed By: #### L 500.3400, L100.0100, L501.4020, L501.2450, L500.2500 #### [facility] [address] [place], [address] Erythrocyte distribution width (RBC) [Ratio] 13.5 % Normal 11.6-14.6 [facility] Comment on above: Performed By: #### L 500.3400, L100.0100, L501.4020, L501.2450, L500.2500 #### [facility] [address] [place], [address] Hematocrit (Bld) [Volume fraction] 38.7 % Normal 37-47 [facility] Comment on above: Performed By: #### L 500.3400, L100.0100, L501.4020, L501.2450, L500.2500 #### [facility] [address] [place], [address] Hemoglobin (Bld) [Mass/Vol] 12.9 g/dL Normal 12.0-15.0 [facility] Comment on above: Performed By: #### L 500.3400, L100.0100, L501.4020, L501.2450, L500.2500 #### [facility] [address] [place], [address] IG% 0.100 Normal 0.0-0.9 [facility] Comment on above: Result Comment: IG% - Immature Granulocytes (promyelocytes, myelocytes and metamyelocytes) > 1% indicates that a LEFT SHIFT is Present. Performed By: #### L 500.3400, L100.0100, L501.4020, L501.2450, L500.2500 #### [facility] [address] [place], [address] Lymphocytes/100 WBC (Bld) 40.9 % Normal 19-41 [facility] Comment on above: Performed By: #### L 500.3400, L100.0100, L501.4020, L501.2450, L500.2500 #### [facility] [address] [place], [address] MCH (RBC) [Entitic mass] 30.1 pg Normal 27.0-32.0 [facility] Comment on above: Performed By: #### L 500.3400, L100.0100, L501.4020, L501.2450, L500.2500 #### [facility] [address] [place], [address] MCHC (RBC) [Mass/Vol] 33.3 g/dL Normal 32-36 [facility] Comment on above: Performed By: #### L 500.3400, L100.0100, L501.4020, L501.2450, L500.2500 #### [facility] [address] [place], [address] MCV (RBC) [Entitic vol] 90.2 fL Normal 81-99 [facility] Comment on above: Performed By: #### L 500.3400, L100.0100, L501.4020, L501.2450, L500.2500 #### [facility] [address] [place], [address] Monocytes/100 WBC (Bld) 4.6 % Normal 0-10 [facility] Comment on above: Performed By: #### L 500.3400, L100.0100, L501.4020, L501.2450, L500.2500 #### [facility] [address] [place], [address] Neutrophils/100 WBC (Bld) 51.7 % Normal 47-70 [facility] Comment on above: Performed By: #### L 500.3400, L100.0100, L501.4020, L501.2450, L500.2500 #### [facility] [address] [place], [address] Nucleated RBC (Bld) [#/Vol] 0 10*3/uL Normal 0-5 [facility] Comment on above: Performed By: #### L 500.3400, L100.0100, L501.4020, L501.2450, L500.2500 #### [facility] [address] [place], [address] Platelet mean volume (Bld) [Entitic vol] 9.9 fL Normal 6.2-12.0 [facility] Comment on above: Performed By: #### L 500.3400, L100.0100, L501.4020, L501.2450, L500.2500 #### [facility] [address] [place], [address] Platelets (Bld) [#/Vol] 259 10*3/uL Normal 150-450 [facility] Comment on above: Performed By: #### L 500.3400, L100.0100, L501.4020, L501.2450, L500.2500 #### [facility] [address] [place], [address] RBC (Bld) [#/Vol] 4.29 10*6/uL Normal 4.2-5.4 [facility] Comment on above: Performed By: #### L 500.3400, L100.0100, L501.4020, L501.2450, L500.2500 #### [facility] [address] [place], [address] RDW SD 44.6 fl High 35.1-43.9 [facility] Comment on above: Performed By: #### L 500.3400, L100.0100, L501.4020, L501.2450, L500.2500 #### [facility] [address] [place], [address] WBC (Bld) [#/Vol] 6.8 10*3/uL Normal 4.4-11.[address] [facility] Comment on above: Performed By: #### L 500.3400, L100.0100, L501.4020, L501.2450, L500.2500 #### [facility] [address] [place], [address] CTA Chest W/WO Contraston CTA Chest W/WO Contrast [facility] Imaging Services [address] [place] [address] CTA Chest W/WO Contrast MR#: [id number] Acct: [id number] Name: LUIZA GALO Rep #: [id number] : 1940 F 83 From: Jose Hatfield PCP: Dr. Rosalind Rubalcava MD Status: ADM IN Study: CTA Chest W/WO Contrast Date of Exam: 04/01/24 Exam# [id number] Ordering Dr: Markel Sotomayor SENIOR BOOKKEEPER-C [id number] EXAM: CT ANGIOGRAPHY CHEST WITHOUT AND WITH [...] Signed: Jose Queen MD at 20:09 EDT , CC: ZAID Sotomayor; Dr. Rosalind Rubalcava MD Mold Car Pusher: Signed Normal [facility] Chest 1 View (Portable)on Chest 1 View (Portable) [facility] Imaging Services [address] [place] [address] Chest 1 View (Portable) MR#: [id number] Acct: [id number] Name: LUIZA GALO Rep #: [id number] : 1940 F 83 From: Jose Hatfield PCP: Dr. Rosalind Rubalcava MD Status: PRE ER Study: Chest 1 View (Portable) Date of Exam: 04/01/24 Exam# [id number] Ordering Dr: Markel Sotomayor [id number] STUDY: XR Chest 1 View 04/01/2024 3:21 [...] Signed: Jose Queen MD at 15:44 EDT , CC: ZAID Sotomayor; Dr. Rosalind Rubalcava MD Mold Car Pusher: Signed Normal [facility] Comprehensive Metabolic Prof [facility] 04-01-2024 Albumin [Mass/Vol] 3.4 g/dL Normal 3.2-5.[address] [facility] Comment on above: Order Comment: 1Y Performed By: #### L 500.3400, L100.0100, L501.4020, L501.2450, L500.2500 #### [facility] [address] [place], [address] Albumin/Globulin [Mass ratio] 0.8 {ratio} Low 0.9-2.4 [facility] Comment on above: Order Comment: 1Y Performed By: #### L 500.3400, L100.0100, L501.4020, L501.2450, L500.2500 #### [facility] [address] [place], [address] ALK P 110 U/L Normal 45-117 [facility] Comment on above: Order Comment: 1Y Performed By: #### L 500.3400, L100.0100, L501.4020, L501.2450, L500.2500 #### [facility] [address] [place], [address] ALT [Catalytic activity/Vol] 24 U/L Normal 13-56 [facility] Comment on above: Order Comment: 1Y Performed By: #### L 500.3400, L100.0100, L501.4020, L501.2450, L500.2500 #### [facility] [address] [place], [address] AST [Catalytic activity/Vol] 27 U/L Normal 15-37 [facility] Comment on above: Order Comment: 1Y Result Comment: Slig ht Hemolysis, Result may be falsely increased. Performed By: #### L 500.3400, L100.0100, L501.4020, L501.2450, L500.2500 #### [facility] [address] [place], [address] Bilirubin [Mass/Vol] 0.30 mg/dL Normal 0.20-1.00 [facility] Comment on above: Order Comment: 1Y Result Comment: For patients on eltrombopag therapy, use of Dimension [place]ala TBIL is not recommended. Performed By: #### L 500.3400, L100.0100, L501.4020, L501.2450, L500.2500 #### [facility] [address] [place], [address] BUN/CRE 14.4 RATIO Normal 10-20 [facility] Comment on above: Order Comment: 1Y Performed By: #### L 500.3400, L100.0100, L501.4020, L501.2450, L500.2500 #### [facility] [address] [place], [address] CA,Total 9.3 mg/dL Normal 8.5-10.1 [facility] Comment on above: Order Comment: 1Y Performed By: #### L 500.3400, L100.0100, L501.4020, L501.2450, L500.2500 #### [facility] [address] [place], [address] Chloride [Moles/Vol] 105 mmol/L Normal 98-107 [facility] Comment on above: Order Comment: 1Y Performed By: #### L 500.3400, L100.0100, L501.4020, L501.2450, L500.2500 #### [facility] [address] [place], [address] CO2 [Moles/Vol] 31.0 mmol/L Normal 21.0-32.0 [facility] Comment on above: Order Comment: 1Y Performed By: #### L 500.3400, L100.0100, L501.4020, L501.2450, L500.2500 #### [facility] [address] [place], [address] Creatinine [Mass/Vol] 1.11 mg/dL High 0.55-1.02 [facility] Comment on above: Order Comment: 1Y Result Comment: The validity of the calculated GFR GFRAA in patients over 70 years has not been determined. Clinical correlation is essential. Performed By: #### L 500.3400, L100.0100, L501.4020, L501.2450, L500.2500 #### [facility] [address] [place], [address] EST GFR - AA 61 mL/min Normal >60 [facility] Comment on above: Order Comment: 1Y Result Comment: Afri can Austrian GFR Calc Performed By: #### L 500.3400, L100.0100, L501.4020, L501.2450, L500.2500 #### [facility] [address] [place], [address] GAP 4 Low 5-15 [facility] Comment on above: Order Comment: 1Y Performed By: #### L 500.3400, L100.0100, L501.4020, L501.2450, L500.2500 #### [facility] [address] [place], [address] GFR/1.73 sq M.predicted among non-blacks MDRD (S/P/Bld) [Vol rate/Area] 50 mL/min/{1.73_m2} Low >60 [facility] Comment on above: Order Comment: 1Y Result Comment: Non- GFR Calc Performed By: #### L 500.3400, L100.0100, L501.4020, L501.2450, L500.2500 #### [facility] [address] [place], [address] Globulin (S) [Mass/Vol] 4.2 g/dL Normal 2.2-4.2 [facility] Comment on above: Order Comment: 1Y Performed By: #### L 500.3400, L100.0100, L501.4020, L501.2450, L500.2500 #### [facility] [address] [place], [address] Glucose [Mass/Vol] 246 mg/dL High 74-[address] [facility] Comment on above: Order Comment: 1Y Result Comment: Gluc ose result greater than or equal to 200 mg/dL suggests DIABETES MELLITUS per A.D.A. criteria. Performed By: #### L 500.3400, L100.0100, L501.4020, L501.2450, L500.2500 #### [facility] [address] [place], [address] Potassium [Moles/Vol] 4.3 mmol/L Normal 3.5-5.1 [facility] Comment on above: Order Comment: 1Y Result Comment: Slig ht Hemolysis, Result may be falsely increased. Performed By: #### L 500.3400, L100.0100, L501.4020, L501.2450, L500.2500 #### [facility] [address] [place], [address] Sodium [Moles/Vol] 140 mmol/L Normal 136-[address] [facility] Comment on above: Order Comment: 1Y Performed By: #### L 500.3400, L100.0100, L501.4020, L501.2450, L500.2500 #### [facility] [address] [place], [address] T PROT 7.6 g/dL Normal 6.4-8.2 [facility] Comment on above: Order Comment: 1Y Performed By: #### L 500.3400, L100.0100, L501.4020, L501.2450, L500.2500 #### [facility] [address] [place], [address] Urea nitrogen [Mass/Vol] 16 mg/dL Normal 7-18 [facility] Comment on above: Order Comment: 1Y Performed By: #### L 500.3400, L100.0100, L501.4020, L501.2450, L500.2500 #### [facility] [address] [place], [address] Emergency Department Summary on 04-01-2024 Emergency Department Summary [facility] Medical Records Department [address] [place] [address] Emergency Department Summary 04/01/24 MR#: [id number] Acct: [id number] Name: LUIZA GALO Rep #: [id number] : 1940 83 From: Markel Sotomayor SENIOR BOOKKEEPER-C PCP: Dr. Rosalind Rubalcava MD Status:ADM BJ Location: [address] History of Present Illness Chief Complaint: [...] the pain as a pressure/intermittent sharp sensation. [facility] Medical History Ascending cholangitis Immunosuppression due to drug therapy Former tobacco use Anxiety and depression History of left heart catheterization (LHC) ( 01/20/21) Paroxysmal atrial fibrillation Essential hypertension Atherosclerosis of coronary artery of [place] heart without angina pectoris 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 Bradycardia Stroke Dysphagia [...] use caffeine (more content not included)... Normal [facility] H AND P Exam - [facility] 04-01-2024 H&P Exam - Hospitalist [facility] Medical Records Department [address] [place] [address] H P Exam - Hospitalist 04/01/24 1856 MR#: [id number] Acct: [id number] Name: LUIZA GALO Rep #: [id number] : 1940 83 From: Fausto Wright MD PCP: Dr. Rosalind Rubalcava MD Status:ADM IN Location: [address] - [facility] General Date of Service: 04/01/24 Chief Complaint: Chest pain HPI Narrative LUIZA GALO, is a 83 F with a significant history of former tobacco abuse; chronic lower back pain; CABG in 2017; HTN; paroxysmal A-fib; DVT; and diabetes mellitus who lives at a residential presenting with left-sided chest pain that started [...] found to have severely elevated blood pressures. [facility] Medical History Ascending cholangitis Immunosuppression due to drug therapy Former tobacco use Anxiety and depression History of left heart catheterization (LHC) ( 01/20/21) Paroxysmal atrial fibrillation Essential hypertension Atherosclerosis of coronary artery of [place] heart without angina pectoris senior care (current) use of anticoagulants Bradycardia Stroke Dysphagia [...] ago sec (more content not included)... Normal [facility] L501.4020on 04-01-2024 TROPONIN-I HS 20 pg/mL Normal 3.0-54.0 [facility] Comment on above: Order Comment: 'TROP ' Serial specimen #1, #2 or #3: 3 Result Comment: Bobby hickman Note: New Test Units and Gender Specific Reference Ranges. For more information see Policy Stat Procedure [place] High Sensitivity Troponin (TNIH) and attachments. Performed By: #### L 501.080 #### [facility] [address] [place], [address] TROPONIN-I HS 14 pg/mL Normal 3.0-54.0 [facility] Comment on above: Result Comment: Pletyesha hickman Note: New Test Units and Gender Specific Reference Ranges. For more information see Policy Stat Procedure [place]ala High Sensitivity Troponin (TNIH) and attachments. Performed By: #### L 501.080 #### [facility] [address] [place], [address] L501.5425on 04-01-2024 TROPONIN-I HS 13 pg/mL Normal 3.0-54.0 [facility] Comment on above: Order Comment: 1Y Result Comment: Pletyesha hickman Note: New Test Units and Gender Specific Reference Ranges. For more information see Policy Stat Procedure [place]ala High Sensitivity Troponin (TNIH) and attachments. Performed By: #### L 500.3400, L100.0100, L501.4020, L501.2450, L500.2500 #### [facility] [address] [place], [place], [id number] ([address]) Lipaseon 04-01-2024 Lipase [Catalytic activity/Vol] 20 U/L Normal 13-75 [facility] Comment on above: Order Comment: 1Y Result Comment: Bobby hickman note: LIPASE revised reference range effective 23. New Lipase methodology. Expected to produce lower values than the previous assay method. NEW Reference Range: 13 - 75 U/L Performed By: #### L 500.3400, L100.0100, L501.4020, L501.2450, L500.2500 #### [facility] [address] [place], [address] .ANATon 03-07-2024 CRISTEL Pattern 1 Homogeneous Normal [facility] ([place]) Comment on above: Result Comment: At [facility], an CRISTEL titer of less than 160 is not considered suggestive of significant rheumatoid disease. If clinical suspicion is high, suggest repeat testing in 1-2 months. Performed By: #### C BC, GFR, A1C, ADIFF, CRP, TSH, CMP, ANEU, ESR #### [address] [address] CRISTEL Titer 1 80 Normal [facility] ([place]) Comment on above: Performed By: #### C BC, GFR, A1C, ADIFF, CRP, TSH, CMP, ANEU, ESR #### [address] [address] ANAon 03-07-2024 CRISTEL See Titer Normal Neg 40 [facility] ([place]) Comment on above: Result Comment: CRISTEL Screen and Titer methodology is an immunofluorescent technique utilizing Hep2 Substrate. Performed By: #### C BC, GFR, A1C, ADIFF, CRP, TSH, CMP, ANEU, ESR #### [address] [address] .GFRon 03-06-2024 GFR 62 ml/min/1.73sqm Normal [facility] ([place]) Comment on above: Result Comment: GFR Population [...] ADIFF, CRP, TSH, CMP, ANEU, ESR #### [address] [address] GFR Non- 51 ml/min/1.73sqm Normal [facility] ([place]) Comment on above: Result Comment: GFR Population [...] ADIFF, CRP, TSH, CMP, ANEU, ESR #### [address] [address] A1Con 03-06-2024 HbA1c (Bld) [Mass fraction] 7.5 % High 4.3-6.4 [facility] ([place] Comment on above: Performed By: #### C BC, GFR, A1C, ADIFF, CRP, TSH, CMP, ANEU, ESR #### [address] [address] CMPon 03-06-2024 Albumin Level 3.1 G/dL Low 3.4-4.8 [facility] ([place] Comment on above: Performed By: #### C BC, GFR, A1C, ADIFF, CRP, TSH, CMP, ANEU, ESR #### [address] [address] Albumin/Globulin [Mass ratio] 0.8 {ratio} Low 1.1-2.5 [facility] ([place] Comment on above: Performed By: #### C BC, GFR, A1C, ADIFF, CRP, TSH, CMP, ANEU, ESR #### [address] [address] ALP [Catalytic activity/Vol] 113 U/L Normal 40-135 [facility] ([place] Comment on above: Performed By: #### C BC, GFR, A1C, ADIFF, CRP, TSH, CMP, ANEU, ESR #### [address] [address] ALT [Catalytic activity/Vol] 24 U/L Normal 14-59 [facility] ([place] Comment on above: Performed By: #### C BC, GFR, A1C, ADIFF, CRP, TSH, CMP, ANEU, ESR #### [address] [address] AST [Catalytic activity/Vol] 19 U/L Normal 10-40 [facility] ([place] Comment on above: Performed By: #### C BC, GFR, A1C, ADIFF, CRP, TSH, CMP, ANEU, ESR #### [address] [address] Bili Total 0.4 mg/dL Normal 0.2-1.0 [facility] ([place] Comment on above: Result Comment: Use of this assay is not recommended for patients undergoing treatment with eltrombopag due to the potential for falsely elevated results. Performed By: #### C BC, GFR, A1C, ADIFF, CRP, TSH, CMP, ANEU, ESR #### [address] [address] BUN/Creatinine Ratio 16 ratio Normal 7-27 [facility] ([place]) Comment on above: Performed By: #### C BC, GFR, A1C, ADIFF, CRP, TSH, CMP, ANEU, ESR #### [address] [address] Calcium [Mass/Vol] 9.0 mg/dL Normal 8.4-10.2 [facility] [place] Comment on above: Performed By: #### C BC, GFR, A1C, ADIFF, CRP, TSH, CMP, ANEU, ESR #### [address] [address] Chloride [Moles/Vol] 103 mmol/L Normal 98-107 [facility] ([place]) Comment on above: Performed By: #### C BC, GFR, A1C, ADIFF, CRP, TSH, CMP, ANEU, ESR #### [address] [address] CO2 [Moles/Vol] 32 mmol/L High 23-31 [facility] ([place] Comment on above: Performed By: #### C BC, GFR, A1C, ADIFF, CRP, TSH, CMP, ANEU, ESR #### [address] [address] Creatinine [Mass/Vol] 1.04 mg/dL High 0.55-1.02 [facility] ([place]) Comment on above: Performed By: #### C BC, GFR, A1C, ADIFF, CRP, TSH, CMP, ANEU, ESR #### [address] [address] Electrolyte Balance 10.0 mEq/L Normal 4.0-15.0 Replaced by [facility] ([place]) Comment on above: Performed By: #### C BC, GFR, A1C, ADIFF, CRP, TSH, CMP, ANEU, ESR #### [address] [address] Globulin 3.7 G/dL Normal [facility] ([place]) Comment on above: Performed By: #### C BC, GFR, A1C, ADIFF, CRP, TSH, CMP, ANEU, ESR #### [address] [address] Glucose [Mass/Vol] 147 mg/dL High 83-110 [facility] [place] Comment on above: Performed By: #### C BC, GFR, A1C, ADIFF, CRP, TSH, CMP, ANEU, ESR #### [address] [address] Potassium [Moles/Vol] 3.6 mmol/L Normal 3.5-5.1 [facility] ([place]) Comment on above: Performed By: #### C BC, GFR, A1C, ADIFF, CRP, TSH, CMP, ANEU, ESR #### [address] [address] Sodium [Moles/Vol] 145 mmol/L Normal 136-145 [facility] [place] Comment on above: Performed By: #### C BC, GFR, A1C, ADIFF, CRP, TSH, CMP, ANEU, ESR #### [address] [place] [address] Total Protein 6.8 G/dL Normal 6.4-8.2 [facility] ([place]) Comment on above: Performed By: #### C BC, GFR, A1C, ADIFF, CRP, TSH, CMP, ANEU, ESR #### [address] [address] Urea nitrogen [Mass/Vol] 17 mg/dL Normal 7-18 [facility] [facility] ([place] Comment on above: Performed By: #### C BC, GFR, A1C, ADIFF, CRP, TSH, CMP, ANEU, ESR #### [address] [address] CRPon 03-06-2024 C-Reactive Protein 0.1 mg/dL Normal 0.0-0.3 [facility] [place] Comment on above: Performed By: #### C BC, GFR, A1C, ADIFF, CRP, TSH, CMP, ANEU, ESR #### [address] [address] ESRon 03-06-2024 Erythrocyte Sed Rate 9 mm/hr Normal 0-30 [facility] ([place]) Comment on above: Performed By: #### C BC, GFR, A1C, ADIFF, CRP, TSH, CMP, ANEU, ESR #### [address] [address] FT3on 03-06-2024 Free T3 [Mass/Vol] 2.44 pg/mL Normal 2.30-4.00 [facility] [place] Comment on above: Performed By: #### C BC, GFR, A1C, ADIFF, CRP, TSH, CMP, ANEU, ESR #### [address] [address] FT4on 03-06-2024 Free T4 [Mass/Vol] 0.81 ng/dL Normal 0.76-1.46 [facility] [place] Comment on above: Performed By: #### C BC, GFR, A1C, ADIFF, CRP, TSH, CMP, ANEU, ESR #### [address] [address] LIPIDon 03-06-2024 Cholesterol [Mass/Vol] 163 mg/dL Normal 0-200 [facility] ([place]) Comment on above: Result Comment: Chol esterol Reference Interval: Less than 200 Desirable 200-239 Borderline high risk 240 and above High risk Performed By: #### C BC, GFR, A1C, ADIFF, CRP, TSH, CMP, ANEU, ESR #### [place] [id number] Cholesterol in HDL [Mass/Vol] 49 mg/dL Normal 40-60 [facility] ([place]) Comment on above: Performed By: #### C BC, GFR, A1C, ADIFF, CRP, TSH, CMP, ANEU, ESR #### [place] [address] Cholesterol in LDL [Mass/Vol] 87 mg/dL Normal 0-130 [facility] ([place]) Comment on above: Performed By: #### C BC, GFR, A1C, ADIFF, CRP, TSH, CMP, ANEU, ESR #### [address] [address] Triglyceride [Mass/Vol] 133 mg/dL Normal 0-150 [facility] ([place]) Comment on above: Result Comment: Trig lyceride Reference Interval: Less than 150 Normal 150-199 Borderline high risk 200-499 High risk 500 or higher Very high risk Performed By: #### C BC, GFR, A1C, ADIFF, CRP, TSH, CMP, ANEU, ESR #### [place] [id number] TSHon 03-06-2024 TSH Qn 4.52 m[IU]/L High 0.36-3.74 [facility] ([place]) Comment on above: Performed By: #### C BC, GFR, A1C, ADIFF, CRP, TSH, CMP, ANEU, ESR #### [place] [id number] URICon 03-06-2024 Uric Acid Lvl 6.3 mg/dL High 2.6-6.2 [facility] ([place]) Comment on above: Performed By: #### C BC, GFR, A1C, ADIFF, CRP, TSH, CMP, ANEU, ESR #### [address] [address] Absolute lymphocyte countOrd ered By: Katalina Torres on 12-28-2023 Lymphocytes Auto (Unsp spec) [#/Vol] 2.31 10*3/uL 0.83-4.51 [facility] Automated lymphocyte count a s percentage of total leukocytesOrdered By: Katalina Torres on 12-28-2023 Lymphocytes/100 WBC Auto (Unsp spec) 33.3 % 19-41 [facility] Basophil percentageOrdered B y: Katalina Torres on 12-28-2023 Basophils/100 WBC (Bld) 0.6 % 0-1 [facility] Chloride [Moles/Vol] 104 mmol/L 98-107 [facility] Eosinophils/100 WBC (Bld) 1.9 % 0-5 [facility] Glucose [Mass/Vol] 161 mg/dL 74-[address] [facility] Comment on above: Fasting Glucose resu lt greater than or equal to 126 mg/dL suggests DIABETES MELLITUS per A.D.A. criteria. Hemoglobin (Bld) [Mass/Vol] 12.4 g/dL 12.0-15.0 [facility] Monocytes/100 WBC (Bld) 4.9 % 0-10 [facility] Neutrophils (Bld) [#/Vol] 4.1 10*3/uL 2.0-7.7 [facility] Neutrophils/100 WBC (Bld) 59.2 % 47-70 [facility] Potassium [Moles/Vol] 3.3 mmol/L 3.5-5.1 [facility] Sodium [Moles/Vol] 140 mmol/L 136-[address] [facility] WBC (Bld) [#/Vol] 6.9 10*3/uL 4.4-11.[address] [facility] Determination of erythrocyte mean corpuscular volume (MCV)Ordered By: Katalina Torres on 12-28-2023 MCV (RBC) [Entitic vol] 88.6 fL 81-99 [facility] Erythrocyte distribution wid th ratioOrdered By: Katalina Torres on 12-28-2023 Erythrocyte distribution width (RBC) [Ratio] 13.6 % 11.6-14.6 [facility] Erythrocyte distribution wid th standard deviationOrdered By: Katalina Torres on 12-28-2023 Erythrocyte distribution width (RBC) [Entitic vol] 44.2 fL 35.1-43.9 [facility] Hematocrit Auto (Bld) [Volum e fraction]Ordered By: Katalina Torres on 12-28-2023 Hematocrit (Bld) [Volume fraction] 38.8 % 37-47 [facility] Immature granulocytes/100 WB C Auto (Bld)Ordered By: Katalina Torres on 12-28-2023 Immature granulocytes/100 WBC (Bld) 0.100 % 0.0-0.9 [facility] Comment on above: IG% - Immature Granu locytes (promyelocytes, myelocytes and metamyelocytes) > 1% indicates that a LEFT SHIFT is Present. Laboratory - Chemistry and C hemistry - challengeOrdered By: Katalina Torres on 12-28-2023 CO2 [Moles/Vol] 30.0 mmol/L 21.0-32.0 [facility] Natriuretic peptide B (Bld) [Mass/Vol] 61.6 pg/mL 0-100 [facility] Urea nitrogen/Creatinine [Mass ratio] 19.4 mg/mg 10-20 [facility] Laboratory - Hematology and Cell countsOrdered By: Katalina Torres on 12-28-2023 MCH (RBC) [Entitic mass] 28.3 pg 27.0-32.0 [facility] MCHC (RBC) [Mass/Vol] 32.0 g/dL 32-36 [facility] Nucleated RBC/100 WBC (Bld) [Ratio] 0 % 0-5 [facility] Platelet mean volume (Bld) [Entitic vol] 10.5 fL 6.2-12.0 [facility] Platelets (Bld) [#/Vol] 247 10*3/uL 150-450 [facility] No Panel InformationOrdered By: Katalina Torres on 12-28-2023 Estimated GFR (MDRD) Amer 80 mL/min >60 [facility] Comment on above: GFR Calc Estimated GFR (MDRD) Non-Af Amer 66 mL/min >60 [facility] Comment on above: Non- GFR Calc RBC Auto (Bld) [#/Vol]Ordere d By: Katalina Torres on 12-28-2023 RBC (Bld) [#/Vol] 4.38 10*6/uL 4.2-5.4 [facility] Serum or plasma calcium inga urement (mass/volume)Ordered By: Katalina Torres on 12-28-2023 Calcium [Mass/Vol] 9.7 mg/dL 8.5-10.[address] [facility] Serum or plasma creatinine m easurement (mass/volume)Ordered By: Katalina Torres on 12-28-2023 Creatinine [Mass/Vol] 0.88 mg/dL 0.55-1.02 [facility] Comment on above: The validity of the calculated GFR & GFRAA in patients over 70 years has not been determined. Clinical correlation is essential. Serum or plasma thyroid stim ulating hormone (TSH) measurement (units/volume)Ordered By: Katalina Torres on 12-28-2023 TSH Qn 3.53 uIU/mL 0.358-3.74 [facility] Serum or plasma thyroxine (T 4) measurement (mass/volume)Ordered By: Katalina Trores on 12-28-2023 T4 [Mass/Vol] 9.0 ug/dL 4.8-13.9 [facility] Serum or plasma urea nitroge n measurement (mass/volume)Ordered By: Katalina Torres on 12-28-2023 Urea nitrogen [Mass/Vol] 17 mg/dL 7-18 [facility] Thin prep Papanicolaou smear with manual screeningOrdered By: Katalina Torres on 12-28-2023 Thin prep Papanicolaou smear with manual screening 6 5-15 [facility] Basophil percentageOrdered B y: Katalina Torres on 12-15-2023 Chloride [Moles/Vol] 107 mmol/L 98-107 [facility] Glucose [Mass/Vol] 153 mg/dL 74-[address] [facility] Comment on above: Fasting Glucose resu lt greater than or equal to 126 mg/dL suggests DIABETES MELLITUS per A.D.A. criteria. Potassium [Moles/Vol] 3.8 mmol/L 3.5-5.1 [facility] Sodium [Moles/Vol] 142 mmol/L 136-[address] [facility] Laboratory - Chemistry and C hemistry - challengeOrdered By: Katalina Torres on 12-15-2023 CO2 [Moles/Vol] 30.0 mmol/L 21.0-32.0 [facility] Urea nitrogen/Creatinine [Mass ratio] 8.5 mg/mg 10-20 [facility] No Panel InformationOrdered By: Katalina Torres on 12-15-2023 Estimated GFR (MDRD) Amer 73 mL/min >60 [facility] Comment on above: GFR Calc Estimated GFR (MDRD) Non-Af Amer 61 mL/min >60 [facility] Comment on above: Non- GFR Calc Serum or plasma calcium inga urement (mass/volume)Ordered By: Katalina Torres on 12-15-2023 Calcium [Mass/Vol] 9.7 mg/dL 8.5-10.[address] [facility] Serum or plasma creatinine m easurement (mass/volume)Ordered By: Katalina Torres on 12-15-2023 Creatinine [Mass/Vol] 0.94 mg/dL 0.55-1.02 [facility] Comment on above: The validity of the calculated GFR & GFRAA in patients over 70 years has not been determined. Clinical correlation is essential. Serum or plasma urea nitroge n measurement (mass/volume)Ordered By: Katalina Torres on 12-15-2023 Urea nitrogen [Mass/Vol] 8 mg/dL 7-18 [facility] Thin prep Papanicolaou smear with manual screeningOrdered By: Katalina Torres on 12-15-2023 Thin prep Papanicolaou smear with manual screening 5 -15 [facility] Absolute lymphocyte countOrd ered By: Lesley Lopez on 11-20-2023 Lymphocytes Auto (Unsp spec) [#/Vol] 2.64 10*3/uL 0.83-4.51 [facility] Activated partial thrombopla stin time (aPTT) in platelet poor plasma by coagulation aOrdered By: Lesley Lopez on 11-20-2023 aPTT Coag (PPP) [Time] 31.8 s 24.1-36.2 [facility] Automated lymphocyte count a s percentage of total leukocytesOrdered By: Lesley Lopez on 11-20-2023 Lymphocytes/100 WBC Auto (Unsp spec) 38.0 % 19-41 [facility] Basophil percentageOrdered B y: Lesley Lopez on 11-20-2023 Basophils/100 WBC (Bld) 0.6 % 0-1 [facility] Chloride [Moles/Vol] 109 mmol/L 98-107 [facility] Eosinophils/100 WBC (Bld) 1.9 % 0-5 [facility] Glucose [Mass/Vol] 169 mg/dL 74-[address] [facility] Comment on above: Fasting Glucose resu lt greater than or equal to 126 mg/dL suggests DIABETES MELLITUS per A.D.A. criteria. Hemoglobin (Bld) [Mass/Vol] 11.4 g/dL 12.0-15.0 [facility] Monocytes/100 WBC (Bld) 5.8 % 0-10 [facility] Neutrophils (Bld) [#/Vol] 3.7 10*3/uL 2.0-7.7 [facility] Neutrophils/100 WBC (Bld) 53.4 % 47-70 [facility] Potassium [Moles/Vol] 4.2 mmol/L 3.5-5.1 [facility] Sodium [Moles/Vol] 141 mmol/L 136-[address] [facility] WBC (Bld) [#/Vol] 6.9 10*3/uL 4.4-11.[address] [facility] Determination of erythrocyte mean corpuscular volume (MCV)Ordered By: Lesley Lopez on 11-20-2023 MCV (RBC) [Entitic vol] 88.9 fL 81-99 [facility] Erythrocyte distribution wid th ratioOrdered By: Lesley Lopez on 11-20-2023 Erythrocyte distribution width (RBC) [Ratio] 14.2 % 11.6-14.6 [facility] Erythrocyte distribution wid th standard deviationOrdered By: Lesley Lopez on 11-20-2023 Erythrocyte distribution width (RBC) [Entitic vol] 45.7 fL 35.1-43.9 [facility] Hematocrit Auto (Bld) [Volum e fraction]Ordered By: Lesley Lopez on 11-20-2023 Hematocrit (Bld) [Volume fraction] 36.2 % 37-47 [facility] Immature granulocytes/100 WB C Auto (Bld)Ordered By: Lesley Lopez on 11-20-2023 Immature granulocytes/100 WBC (Bld) 0.300 % 0.0-0.9 [facility] Comment on above: IG% - Immature Granu locytes (promyelocytes, myelocytes and metamyelocytes) > 1% indicates that a LEFT SHIFT is Present. Laboratory - Chemistry and C hemistry - challengeOrdered By: Lesley Lopez on 11-20-2023 CO2 [Moles/Vol] 29.0 mmol/L 21.0-32.0 [facility] Urea nitrogen/Creatinine [Mass ratio] 16.0 mg/mg 10-20 [facility] Laboratory - CoagulationOrde red By: Lesley Lopez on 11-20-2023 INR Coag (Bld) [Relative time] 1.2 {INR} [facility] PT Coag (PPP) [Time] 15.6 s 11.7-14.9 [facility] Laboratory - Hematology and Cell countsOrdered By: Lesley Lopez on 11-20-2023 MCH (RBC) [Entitic mass] 28.0 pg 27.0-32.0 [facility] MCHC (RBC) [Mass/Vol] 31.5 g/dL 32-36 [facility] Nucleated RBC/100 WBC (Bld) [Ratio] 0 % 0-5 [facility] Platelet mean volume (Bld) [Entitic vol] 10.6 fL 6.2-12.0 [facility] Platelets (Bld) [#/Vol] 222 10*3/uL 150-450 [facility] No Panel InformationOrdered By: Lesley Lopez on 11-20-2023 Estimated Creatinine Clearance Calc 40.41 ml/min [facility] Estimated GFR (MDRD) Amer 64 mL/min >60 [facility] Comment on above: GFR Calc Estimated GFR (MDRD) Non-Af Amer 53 mL/min >60 [facility] Comment on above: Non- GFR Calc RBC Auto (Bld) [#/Vol]Ordere d By: Lesley Lopez on 11-20-2023 RBC (Bld) [#/Vol] 4.07 10*6/uL 4.2-5.4 [facility] Serum or plasma calcium inga urement (mass/volume)Ordered By: Lesley Lopez on 11-20-2023 Calcium [Mass/Vol] 9.1 mg/dL 8.5-10.[address] [facility] Serum or plasma creatinine m easurement (mass/volume)Ordered By: Lesley Lopez on 11-20-2023 Creatinine [Mass/Vol] 1.06 mg/dL 0.55-1.02 [facility] Comment on above: The validity of the calculated GFR & GFRAA in patients over 70 years has not been determined. Clinical correlation is essential. Serum or plasma urea nitroge n measurement (mass/volume)Ordered By: Lesley Lopez on 11-20-2023 Urea nitrogen [Mass/Vol] 17 mg/dL 7-18 [facility] Thin prep Papanicolaou smear with manual screeningOrdered By: Lesley Lopez on 11-20-2023 Thin prep Papanicolaou smear with manual screening 3 5-15 [facility] Basophil percentageOrdered B y: Katalina Torres on 11-04-2023 Chloride [Moles/Vol] 106 mmol/L 98-107 [facility] Glucose [Mass/Vol] 98 mg/dL 74-[address] [facility] Potassium [Moles/Vol] 4.1 mmol/L 3.5-5.1 [facility] Sodium [Moles/Vol] 137 mmol/L 136-[address] [facility] Laboratory - Chemistry and C hemistry - challengeOrdered By: Katalina Torres on 11-04-2023 CO2 [Moles/Vol] 30.0 mmol/L 21.0-32.0 [facility] Urea nitrogen/Creatinine [Mass ratio] 12.7 mg/mg 10-20 [facility] No Panel InformationOrdered By: Katalina Torres on 11-04-2023 Estimated GFR (MDRD) Amer 61 mL/min >60 [facility] Comment on above: GFR Calc Estimated GFR (MDRD) Non-Af Amer 51 mL/min >60 [facility] Comment on above: Non- GFR Calc Serum or plasma calcium inga urement (mass/volume)Ordered By: Katalina Torres on 11-04-2023 Calcium [Mass/Vol] 10.0 mg/dL 8.5-10.[address] [facility] Serum or plasma creatinine m easurement (mass/volume)Ordered By: Katalina Torres on 11-04-2023 Creatinine [Mass/Vol] 1.10 mg/dL 0.55-1.02 [facility] Comment on above: The validity of the calculated GFR & GFRAA in patients over 70 years has not been determined. Clinical correlation is essential. Serum or plasma urea nitroge n measurement (mass/volume)Ordered By: Katalina Torres on 11-04-2023 Urea nitrogen [Mass/Vol] 14 mg/dL 7-18 [facility] Thin prep Papanicolaou smear with manual screeningOrdered By: Katalina Torres on 11-04-2023 Thin prep Papanicolaou smear with manual screening 1 5-15 [facility] .Auto Diffon 11-01-2023 Basophil, Absolute 0.0 10 3/mcL Normal 0.0-0.2 [facility] ([place]) Comment on above: Performed By: #### C BC, GFR, A1C, ADIFF, CRP, TSH, CMP, ANEU, ESR #### [address] [address] Basophils/100 WBC (Bld) 0.5 % Normal 0.0-2.5 [facility] ([place]) Comment on above: Performed By: #### C BC, GFR, A1C, ADIFF, CRP, TSH, CMP, ANEU, ESR #### [address] [address] Eosinophil, Absolute 0.1 10 3/mcL Normal 0.0-0.4 [facility] ([place]) Comment on above: Performed By: #### C BC, GFR, A1C, ADIFF, CRP, TSH, CMP, ANEU, ESR #### [address] [address] Eosinophils/100 WBC (Bld) 1.2 % Normal 0.0-7.0 [facility] ([place] Comment on above: Performed By: #### C BC, GFR, A1C, ADIFF, CRP, TSH, CMP, ANEU, ESR #### [address] [address] Lymphocyte, Absolute 2.9 10 3/mcL Normal 0.8-3.9 [facility] ([place]) Comment on above: Performed By: #### C BC, GFR, A1C, ADIFF, CRP, TSH, CMP, ANEU, ESR #### [address] [address] Lymphocytes/100 WBC (Bld) 37.6 % Normal 10.0-50.0 [facility] ([place] Comment on above: Performed By: #### C BC, GFR, A1C, ADIFF, CRP, TSH, CMP, ANEU, ESR #### [address] [address] Monocyte, Absolute 0.3 10 3/mcL Normal 0.2-1.0 [facility] ([place] Comment on above: Performed By: #### C BC, GFR, A1C, ADIFF, CRP, TSH, CMP, ANEU, ESR #### [address] [address] Monocytes/100 WBC (Bld) 4.2 % Normal 1.7-13.0 [facility] ([place]) Comment on above: Performed By: #### C BC, GFR, A1C, ADIFF, CRP, TSH, CMP, ANEU, ESR #### [address] [address] Neutrophils/100 WBC (Bld) 56.5 % Normal 37.0-80.0 [facility] ([place] Comment on above: Performed By: #### C BC, GFR, A1C, ADIFF, CRP, TSH, CMP, ANEU, ESR #### [address] [address] .GFRon 11-01-2023 GFR 63 ml/min/1.73sqm Normal [facility] ([place]) Comment on above: Result Comment: GFR Population [...] ADIFF, CRP, TSH, CMP, ANEU, ESR #### [address] [address] GFR Non- 52 ml/min/1.73sqm Normal [facility] ([place]) Comment on above: Result Comment: GFR Population [...] ADIFF, CRP, TSH, CMP, ANEU, ESR #### [address] [address] .NEUABSon 11-01-2023 Neutrophil, Absolute 4.4 10 3/mcL Normal 2.9-6.2 [facility] ([place]) Comment on above: Performed By: #### C BC, GFR, A1C, ADIFF, CRP, TSH, CMP, ANEU, ESR #### [address] [address] A1Con 11-01-2023 HbA1c (Bld) [Mass fraction] 5.9 % Normal 4.3-6.4 [facility] ([place]) Comment on above: Performed By: #### C BC, GFR, A1C, ADIFF, CRP, TSH, CMP, ANEU, ESR #### [address] [address] CBCon 11-01-2023 Erythrocyte distribution width (RBC) [Ratio] 15.4 % High 11.5-14.5 [facility] ([place] Comment on above: Performed By: #### C BC, GFR, A1C, ADIFF, CRP, TSH, CMP, ANEU, ESR #### [place] [id number] Hematocrit (Bld) [Volume fraction] 39.7 % Normal 37.0-47.0 [facility] ([place] Comment on above: Performed By: #### C BC, GFR, A1C, ADIFF, CRP, TSH, CMP, ANEU, ESR #### [place] [id number] Hgb 13.3 G/dL Normal 12.0-16.0 [facility] ([place] Comment on above: Performed By: #### C BC, GFR, A1C, ADIFF, CRP, TSH, CMP, ANEU, ESR #### [place] [phone] MCH (RBC) [Entitic mass] 28.3 pg Normal 27.0-31.2 [facility] ([place] Comment on above: Performed By: #### C BC, GFR, A1C, ADIFF, CRP, TSH, CMP, ANEU, ESR #### [place] [address] MCHC 33.6 G/dL Normal 33.0-37.0 [facility] ([place] Comment on above: Performed By: #### C BC, GFR, A1C, ADIFF, CRP, TSH, CMP, ANEU, ESR #### [place] [id number] MCV (RBC) [Entitic vol] 84.4 fL Normal 80.0-94.0 [facility] ([place] Comment on above: Performed By: #### C BC, GFR, A1C, ADIFF, CRP, TSH, CMP, ANEU, ESR #### [address] [address] Platelet 251 10 3/mcL Normal 130-400 [facility] ([place]) Comment on above: Performed By: #### C BC, GFR, A1C, ADIFF, CRP, TSH, CMP, ANEU, ESR #### [address] [address] Platelet mean volume (Bld) [Entitic vol] 8.7 fL Normal 7.4-10.4 [facility] ([place] Comment on above: Performed By: #### C BC, GFR, A1C, ADIFF, CRP, TSH, CMP, ANEU, ESR #### [address] [address] RBC 4.70 10 6/mcL Normal 4.20-5.40 [facility] ([place]) Comment on above: Performed By: #### C BC, GFR, A1C, ADIFF, CRP, TSH, CMP, ANEU, ESR #### [address] [address] WBC 7.7 10 3/mcL Normal 4.6-10.8 [facility] ([place] Comment on above: Performed By: #### C BC, GFR, A1C, ADIFF, CRP, TSH, CMP, ANEU, ESR #### [address] [address] CMPon 11-01-2023 Albumin Level 3.3 G/dL Low 3.4-4.8 [facility] ([place] Comment on above: Performed By: #### C BC, GFR, A1C, ADIFF, CRP, TSH, CMP, ANEU, ESR #### [address] [address] Albumin/Globulin [Mass ratio] 0.8 {ratio} Low 1.1-2.5 [facility] ([place] Comment on above: Performed By: #### C BC, GFR, A1C, ADIFF, CRP, TSH, CMP, ANEU, ESR #### [address] [address] ALP [Catalytic activity/Vol] 108 U/L Normal 40-135 [facility] ([place] Comment on above: Performed By: #### C BC, GFR, A1C, ADIFF, CRP, TSH, CMP, ANEU, ESR #### [address] [address] ALT [Catalytic activity/Vol] 19 U/L Normal 14-59 [facility] ([place] Comment on above: Performed By: #### C BC, GFR, A1C, ADIFF, CRP, TSH, CMP, ANEU, ESR #### [address] [address] AST [Catalytic activity/Vol] 20 U/L Normal 10-40 [facility] ([place] Comment on above: Performed By: #### C BC, GFR, A1C, ADIFF, CRP, TSH, CMP, ANEU, ESR #### [address] [address] Bili Total 0.4 mg/dL Normal 0.2-1.0 [facility] ([place] Comment on above: Result Comment: Use of this assay is not recommended for patients undergoing treatment with eltrombopag due to the potential for falsely elevated results. Performed By: #### C BC, GFR, A1C, ADIFF, CRP, TSH, CMP, ANEU, ESR #### [address] [address] BUN/Creatinine Ratio 13 ratio Normal 7-27 [facility] ([place] Comment on above: Performed By: #### C BC, GFR, A1C, ADIFF, CRP, TSH, CMP, ANEU, ESR #### [address] [address] Calcium [Mass/Vol] 10.0 mg/dL Normal 8.4-10.2 [facility] [place] Comment on above: Performed By: #### C BC, GFR, A1C, ADIFF, CRP, TSH, CMP, ANEU, ESR #### [address] [address] Chloride [Moles/Vol] 102 mmol/L Normal 98-107 [facility] ([place] Comment on above: Performed By: #### C BC, GFR, A1C, ADIFF, CRP, TSH, CMP, ANEU, ESR #### [address] [address] CO2 [Moles/Vol] 30 mmol/L Normal 23-31 [facility] ([place] Comment on above: Performed By: #### C BC, GFR, A1C, ADIFF, CRP, TSH, CMP, ANEU, ESR #### [address] [address] Creatinine [Mass/Vol] 1.02 mg/dL Normal 0.55-1.02 [facility] ([place]) Comment on above: Performed By: #### C BC, GFR, A1C, ADIFF, CRP, TSH, CMP, ANEU, ESR #### [address] [address] Electrolyte Balance 9.0 mEq/L Normal 4.0-15.0 [facility]placed by [facility] ([place]) Comment on above: Performed By: #### C BC, GFR, A1C, ADIFF, CRP, TSH, CMP, ANEU, ESR #### [address] [address] Globulin 4.3 G/dL Normal [facility] ([place] Comment on above: Performed By: #### C BC, GFR, A1C, ADIFF, CRP, TSH, CMP, ANEU, ESR #### [address] [address] Glucose [Mass/Vol] 94 mg/dL Normal 83-110 [facility] [place] Comment on above: Performed By: #### C BC, GFR, A1C, ADIFF, CRP, TSH, CMP, ANEU, ESR #### [address] [address] Potassium [Moles/Vol] 4.3 mmol/L Normal 3.5-5.1 [facility] ([place] Comment on above: Performed By: #### C BC, GFR, A1C, ADIFF, CRP, TSH, CMP, ANEU, ESR #### [address] [address] Sodium [Moles/Vol] 141 mmol/L Normal 136-145 [facility] [place] Comment on above: Performed By: #### C BC, GFR, A1C, ADIFF, CRP, TSH, CMP, ANEU, ESR #### [address] [address] Total Protein 7.6 G/dL Normal 6.4-8.2 [facility] ([place] Comment on above: Performed By: #### C BC, GFR, A1C, ADIFF, CRP, TSH, CMP, ANEU, ESR #### [address] [address] Urea nitrogen [Mass/Vol] 13 mg/dL Normal 7-18 [facility] ([place] Comment on above: Performed By: #### C BC, GFR, A1C, ADIFF, CRP, TSH, CMP, ANEU, ESR #### [address] [address] LIPIDon 11-01-2023 Cholesterol [Mass/Vol] 172 mg/dL Normal 0-200 [facility] ([place]) Comment on above: Result Comment: Chol esterol Reference Interval: Less than 200 Desirable 200-239 Borderline high risk 240 and above High risk Performed By: #### C BC, GFR, A1C, ADIFF, CRP, TSH, CMP, ANEU, ESR #### [address] [address] Cholesterol in HDL [Mass/Vol] 53 mg/dL Normal 40-60 [facility] ([place] Comment on above: Performed By: #### C BC, GFR, A1C, ADIFF, CRP, TSH, CMP, ANEU, ESR #### [address] [address] Cholesterol in LDL [Mass/Vol] 97 mg/dL Normal 0-130 [facility] ([place] Comment on above: Performed By: #### C BC, GFR, A1C, ADIFF, CRP, TSH, CMP, ANEU, ESR #### [address] [address] Triglyceride [Mass/Vol] 111 mg/dL Normal 0-150 [facility] ([place]) Comment on above: Result Comment: Trig lyceride Reference Interval: Less than 150 Normal 150-199 Borderline high risk 200-499 High risk 500 or higher Very high risk Performed By: #### C BC, GFR, A1C, ADIFF, CRP, TSH, CMP, ANEU, ESR #### [address] [address] Absolute lymphocyte countOrd ered By: Katalina Torres on 10-24-2023 Lymphocytes Auto (Unsp spec) [#/Vol] 2.52 10*3/uL 0.83-4.51 [facility] Automated lymphocyte count a s percentage of total leukocytesOrdered By: Katalina Torres on 10-24-2023 Lymphocytes/100 WBC Auto (Unsp spec) 40.4 % 19-41 [facility] Basophil percentageOrdered B y: Katalina Torres on 10-24-2023 Basophils/100 WBC (Bld) 0.6 % 0-1 [facility] Chloride [Moles/Vol] 108 mmol/L 98-107 [facility] Eosinophils/100 WBC (Bld) 2.6 % 0-5 [facility] Glucose [Mass/Vol] 118 mg/dL 74-[address] [facility] Comment on above: Fasting Glucose resu lt from 100 to 125 mg/dL suggests IMPAIRED HOMEOSTASIS per A.D.A. criteria. Hemoglobin (Bld) [Mass/Vol] 12.0 g/dL 12.0-15.0 [facility] Monocytes/100 WBC (Bld) 6.4 % 0-10 [facility] Neutrophils (Bld) [#/Vol] 3.1 10*3/uL 2.0-7.7 [facility] Neutrophils/100 WBC (Bld) 49.8 % 47-70 [facility] Potassium [Moles/Vol] 4.0 mmol/L 3.5-5.1 [facility] Sodium [Moles/Vol] 141 mmol/L 136-[address] [facility] WBC (Bld) [#/Vol] 6.2 10*3/uL 4.4-11.[address] [facility] Determination of erythrocyte mean corpuscular volume (MCV)Ordered By: Katalina Torres on 10-24-2023 MCV (RBC) [Entitic vol] 88.1 fL 81-99 [facility] Erythrocyte distribution wid th ratioOrdered By: Katalina Torres on 10-24-2023 Erythrocyte distribution width (RBC) [Ratio] 13.7 % 11.6-14.6 [facility] Erythrocyte distribution wid th standard deviationOrdered By: Katalina Torres on 10-24-2023 Erythrocyte distribution width (RBC) [Entitic vol] 44.2 fL 35.1-43.9 [facility] Hematocrit Auto (Bld) [Volum e fraction]Ordered By: Katalina Torres on 10-24-2023 Hematocrit (Bld) [Volume fraction] 37.1 % 37-47 [facility] Immature granulocytes/100 WB C Auto (Bld)Ordered By: Katalina Torres on 10-24-2023 Immature granulocytes/100 WBC (Bld) 0.200 % 0.0-0.9 [facility] Comment on above: IG% - Immature Granu locytes (promyelocytes, myelocytes and metamyelocytes) > 1% indicates that a LEFT SHIFT is Present. Laboratory - Chemistry and C hemistry - challengeOrdered By: Katalina Torres on 10-24-2023 CO2 [Moles/Vol] 28.0 mmol/L 21.0-32.0 [facility] Natriuretic peptide B (Bld) [Mass/Vol] 144.8 pg/mL 0-100 [facility] Urea nitrogen/Creatinine [Mass ratio] 15.5 mg/mg 10-20 [facility] Laboratory - Hematology and Cell countsOrdered By: Katalina Torres on 10-24-2023 MCH (RBC) [Entitic mass] 28.5 pg 27.0-32.0 [facility] MCHC (RBC) [Mass/Vol] 32.3 g/dL 32-36 [facility] Nucleated RBC/100 WBC (Bld) [Ratio] 0 % 0-5 [facility] Platelets (Bld) [#/Vol] 212 10*3/uL 150-450 [facility] No Panel InformationOrdered By: Katalina Torres on 10-24-2023 Estimated GFR (MDRD) Amer 66 mL/min >60 [facility] Comment on above: GFR Calc Estimated GFR (MDRD) Non-Af Amer 55 mL/min >60 [facility] Comment on above: Non- GFR Calc Platelet mean volume Frank-Ec ker (Bld) [Entitic vol]Ordered By: Katalina Torres on 10-24-2023 Platelet mean volume (Bld) [Entitic vol] 10.6 fL 6.2-12.0 [facility] RBC Auto (Bld) [#/Vol]Ordere d By: Katalina Torres on 10-24-2023 RBC (Bld) [#/Vol] 4.21 10*6/uL 4.2-5.4 [facility] Serum or plasma calcium inga urement (mass/volume)Ordered By: Katalina Torres on 10-24-2023 Calcium [Mass/Vol] 9.6 mg/dL 8.5-10.[address] [facility] Serum or plasma creatinine m easurement (mass/volume)Ordered By: Katalina Torres on 10-24-2023 Creatinine [Mass/Vol] 1.03 mg/dL 0.55-1.02 [facility] Comment on above: The validity of the calculated GFR & GFRAA in patients over 70 years has not been determined. Clinical correlation is essential. Serum or plasma urea nitroge n measurement (mass/volume)Ordered By: Katalina Torres on 10-24-2023 Urea nitrogen [Mass/Vol] 16 mg/dL 7-18 [facility] Thin prep Papanicolaou smear with manual screeningOrdered By: Katalina Torres on 10-24-2023 Thin prep Papanicolaou smear with manual screening 5 5-[address] [facility] [address] ABDOMEN/PELVIS W/CONTRAST on 09-23-2023 CT ABDOMEN/PELVIS W/CONTRAST ORIGINAL EXAMINATION: CT OF THE ABDOMEN AND PELVIS WITH EVBYQUIV84/21/2023 11:28 am TECHNIQUE: CT of the abdomen [...] 09/23/2023 7:56:38 AM Ordering Provider: ROSALIND RUBALCAVA [facility] ([place]) .GFRon 09-22-2023 GFR 60 ml/min/1.73sqm Normal [facility] ([place]) Comment on above: Result Comment: GFR Population [...] CRP, TSH, CMP, ANEU, ESR #### [place] [id number] GFR Non- 50 ml/min/1.73sqm Normal [facility] ([place]) Comment on above: Result Comment: GFR Population [...] ADIFF, CRP, TSH, CMP, ANEU, ESR #### [id number] [place], [place] [address] CREon 09-22-2023 Creatinine [Mass/Vol] 1.06 mg/dL High 0.55-1.02 [facility] ([place]) Comment on above: Performed By: #### C BC, GFR, A1C, ADIFF, CRP, TSH, CMP, ANEU, ESR #### [address] [address] Absolute lymphocyte countOrd ered By: Judson Hernandez on 08-15-2023 Lymphocytes Auto (Unsp spec) [#/Vol] 2.44 10*3/uL 0.83-4.51 [facility] Basophil percentageOrdered B y: Judson Hernandez on 08-15-2023 Basophil percentage 91 mg/dL 74-106 [facility] Basophil percentage 144 mmol/L 136-145 [facility] Basophil percentage 3.5 mmol/L 3.5-5.1 [facility] Basophil percentage 113 mmol/L 98-107 [facility] Basophils (Bld) [#/Vol] 10.1 10*3/uL 4.4-11.0 [facility] Basophils (Bld) [#/Vol] 7.0 10*3/uL 2.0-7.7 [facility] Basophils/100 WBC (Bld) 69.3 % 47-70 [facility] Basophils/100 WBC (Bld) 1.2 % 0-5 [facility] Basophils/100 WBC (Bld) 0.3 % 0-1 [facility] Chloride [Moles/Vol] 113 mmol/L 98-107 [facility] Eosinophils/100 WBC (Bld) 1.2 % 0-5 [facility] Glucose [Mass/Vol] 91 mg/dL 74-[address] [facility] Neutrophils (Bld) [#/Vol] 7.0 10*3/uL 2.0-7.7 [facility] Neutrophils/100 WBC (Bld) 69.3 % 47-70 [facility] Potassium [Moles/Vol] 3.5 mmol/L 3.5-5.1 [facility] Sodium [Moles/Vol] 144 mmol/L 136-[address] [facility] WBC (Bld) [#/Vol] 10.1 10*3/uL 4.4-11.0 [facility] Blood erythrocytes count (nu mber/volume)Ordered By: Judson Hernandez on 08-15-2023 RBC (Bld) [#/Vol] 3.61 10*6/uL 4.2-5.4 [facility] Blood hemoglobin measurement (mass/volume)Ordered By: Judson Hernandez on 08-15-2023 Hemoglobin (Bld) [Mass/Vol] 10.5 g/dL 12.0-15.0 [facility] Blood lymphocytes/100 leukoc ytesOrdered By: Judson Hernandez on 08-15-2023 Lymphocytes/100 WBC (Bld) 24.2 % 19-41 [facility] Blood monocytes/100 leukocyt esOrdered By: Judson Hernandez on 08-15-2023 Monocytes/100 WBC (Bld) 4.8 % 0-10 [facility] Blood platelet mean volumeOr dered By: Judson Hernandez on 08-15-2023 Platelet mean volume (Bld) [Entitic vol] 9.6 fL 6.2-12.0 [facility] Determination of erythrocyte mean corpuscular volume (MCV)Ordered By: Judson Hernandez on 08-15-2023 MCV (RBC) [Entitic vol] 93.4 fL 81-99 [facility] Glucose Glucometer (BldC) [M ass/Vol]Ordered By: Cirilo Fine on 08-15-2023 Glucose [Mass/Vol] 181 mg/dL 74-[address] [facility] Comment on above: MANAGEMENT OF PATIEN T CARE PER NURSING PROTOCOL Hematocrit Auto (Bld) [Volum e fraction]Ordered By: Judson Hernandez on 08-15-2023 Hematocrit (Bld) [Volume fraction] 33.7 % 37-47 [facility] Laboratory - Chemistry and C hemistry - challengeOrdered By: Judson Hernandez on 08-15-2023 CO2 [Moles/Vol] 29.0 mmol/L 21.0-32.0 [facility] Urea nitrogen/Creatinine [Mass ratio] 12.9 mg/mg 10-20 [facility] Laboratory - Hematology and Cell countsOrdered By: Judson Hernandez on 08-15-2023 Erythrocyte distribution width (RBC) [Entitic vol] 43.9 fL 35.1-43.9 [facility] Erythrocyte distribution width (RBC) [Ratio] 12.9 % 11.6-14.6 [facility] Immature granulocytes/100 WBC (Bld) 0.200 % 0.0-0.9 [facility] Comment on above: IG% - Immature Granu locytes (promyelocytes, myelocytes and metamyelocytes) > 1% indicates that a LEFT SHIFT is Present. MCH (RBC) [Entitic mass] 29.1 pg 27.0-32.0 [facility] Nucleated RBC/100 WBC (Bld) [Ratio] 0 % 0-5 [facility] MCHC Auto (RBC) [Mass/Vol]Or dered By: Judson Hernandez on 08-15-2023 MCHC (RBC) [Mass/Vol] 31.2 g/dL 32-36 [facility] No Panel InformationOrdered By: Judson Hernandez on 08-15-2023 Estimated Creatinine Clearance Calc 40.58 ml/min [facility] Estimated GFR (MDRD) Amer 82 mL/min >60 [facility] Comment on above: GFR Calc Estimated GFR (MDRD) Non-Af Amer 68 mL/min >60 [facility] Comment on above: Non- GFR Calc 29.1 pg 27.0-32.0 [facility] 12.9 % 11.6-14.6 [facility] 43.9 fl 35.1-43.9 [facility] 0.200 % 0.0-0.9 [facility] 0 % 0-5 [facility] 68 mL/min >60 [facility] 82 mL/min >60 [facility] 40.58 ml/min [facility] 12.9 RATIO 10-20 [facility] 29.0 mmol/L 21.0-32.0 [facility] Platelets bldOrdered By: Cristian Hernandez on 08-15-2023 Platelets (Bld) [#/Vol] 241 10*3/uL 150-450 [facility] Serum or plasma calcium inga urement (mass/volume)Ordered By: Judson Hernandez on 08-15-2023 Calcium [Mass/Vol] 8.5 mg/dL 8.5-10.[address] [facility] Serum or plasma creatinine m easurement (mass/volume)Ordered By: Judson Hernandez on 08-15-2023 Creatinine [Mass/Vol] 0.86 mg/dL 0.55-1.02 [facility] Comment on above: The validity of the calculated GFR & GFRAA in patients over 70 years has not been determined. Clinical correlation is essential. Serum or plasma urea nitroge n measurement (mass/volume)Ordered By: Judson Hernandez on 08-15-2023 Urea nitrogen [Mass/Vol] 11 mg/dL 7-18 [facility] Thin prep Papanicolaou smear with manual screeningOrdered By: Judson Hernandez on 08-15-2023 Thin prep Papanicolaou smear with manual screening 2 5-15 [facility] Absolute lymphocyte countOrd ered By: Enrrique Eric on 08-14-2023 Lymphocytes Auto (Unsp spec) [#/Vol] 0.89 10*3/uL 0.83-4.51 [facility] Basophil percentageOrdered B y: Enrrique Eric on 08-14-2023 Basophil percentage 0 SEEN /hpf 0-5 [facility] Basophil percentage 209 mg/dL 74-106 [facility] Basophil percentage 7.6 g/dL 6.4-8.2 [facility] Basophil percentage 0.50 mg/dL 0.20-1.00 [facility] Basophil percentage 138 mmol/L 136-145 [facility] Basophil percentage 3.5 mmol/L 3.5-5.1 [facility] Basophil percentage 105 mmol/L 98-107 [facility] Basophil percentage 1.8 mmol/L 0.4-2.0 [facility] Basophils (Bld) [#/Vol] 12.5 10*3/uL 4.4-11.0 [facility] Basophils (Bld) [#/Vol] 11.0 10*3/uL 2.0-7.7 [facility] Basophils/100 WBC (Bld) 88.1 % 47-70 [facility] Basophils/100 WBC (Bld) 0.2 % 0-5 [facility] Basophils/100 WBC (Bld) 0.3 % 0-1 [facility] Bilirubin [Mass/Vol] 0.50 mg/dL 0.20-1.00 [facility] Comment on above: For patients on eltr ombopag therapy, use of Dimension [place] TBIL is not recommended. Lactate [Moles/Vol] 1.8 mmol/L 0.4-2.0 [facility] Protein [Mass/Vol] 7.6 g/dL 6.4-8.[address] [facility] Bilirubin Test strip Ql (U)O rdered By: Enrrique Eric on 08-14-2023 Bilirubin Ql (U) Negative Negative [facility] Blood erythrocytes count (nu mber/volume)Ordered By: Enrrique Eric on 08-14-2023 RBC (Bld) [#/Vol] 4.77 10*6/uL 4.2-5.4 [facility] Blood hemoglobin measurement (mass/volume)Ordered By: Enrrique Eric on 08-14-2023 Hemoglobin (Bld) [Mass/Vol] 13.9 g/dL 12.0-15.0 [facility] Blood lymphocytes/100 leukoc ytesOrdered By: Enrrique Eric on 08-14-2023 Lymphocytes/100 WBC (Bld) 7.1 % 19-41 [facility] Blood monocytes/100 leukocyt esOrdered By: Enrrique Eric on 08-14-2023 Monocytes/100 WBC (Bld) 3.7 % 0-10 [facility] Blood platelet mean volumeOr dered By: Enrrique Eric on 08-14-2023 Platelet mean volume (Bld) [Entitic vol] 10.0 fL 6.2-12.0 [facility] Determination of erythrocyte mean corpuscular volume (MCV)Ordered By: Enrrique Eric on 08-14-2023 MCV (RBC) [Entitic vol] 89.7 fL 81-99 [facility] Direct bilirubinOrdered By: Enrrique Eric on 08-14-2023 Bilirubin.direct [Mass/Vol] 0.07 mg/dL 0.00-0.30 [facility] Hematocrit Auto (Bld) [Volum e fraction]Ordered By: Enrrique Eric on 08-14-2023 Hematocrit (Bld) [Volume fraction] 42.8 % 37-47 [facility] INR in Blood by Coagulation assayOrdered By: Enrrique Eric on 08-14-2023 INR Coag (Bld) [Relative time] 1.3 {INR} [facility] Influenza virus A and B and SARS-CoV-2 (COVID-19) Ag panel - Upper respiratory specimOrdered By: Enrrique Eric on 08-14-2023 SARS-CoV-2 (COVID-19) RNA PACHECO+probe Ql (Resp) [facility] Ketones Test strip Ql (U)Ord ered By: Enrrique Eric on 08-14-2023 Ketones Ql (U) 5 mg/dl Negative [facility] Laboratory - Chemistry and C hemistry - challengeOrdered By: Enrrique Eric on 08-14-2023 ALP [Catalytic activity/Vol] 98 U/L 45-117 [facility] ALT [Catalytic activity/Vol] 14 U/L 13-56 [facility] Globulin (S) [Mass/Vol] 4.8 g/dL 2.2-4.2 [facility] Lipase [Catalytic activity/Vol] 17 U/L 13-75 [facility] Comment on above: Please note:LIPASE r evised reference range effective 23. New Lipase methodology. Expected to produce lower values than the previous assay method. NEW Reference Range: 13 - 75 U/L Laboratory - CoagulationOrde red By: Enrrique Eric on 08-14-2023 aPTT Coag (Bld) [Time] 28.7 s 24.1-36.2 [facility] PT Coag (PPP) [Time] 16.3 s 11.7-14.9 [facility] Laboratory - Microbiology an d Antimicrobial susceptibilityOrdered By: Enrrique Eric on 08-14-2023 Bacteria identified Cx Nom (Bld) No growth in 5 days. [facility] MCHC Auto (RBC) [Mass/Vol]Or dered By: Enrrique Eric on 08-14-2023 MCHC (RBC) [Mass/Vol] 32.5 g/dL 32-36 [facility] Mucus LM Ql (Urine sed)Order ed By: Enrrique Eric on 08-14-2023 Mucus Ql (Urine sed) 0 SEEN /hpf [facility] Nitrite Test strip Ql (U)Ord ered By: Enrrique Eric on 08-14-2023 Nitrite Ql (U) Negative Negative [facility] No Panel InformationOrdered By: Enrrique Eric on 08-14-2023 29.1 pg 27.0-32.0 [facility] 12.5 % 11.6-14.6 [facility] 41.1 fl 35.1-43.9 [facility] 0.600 % 0.0-0.9 [facility] 0 % 0-5 [facility] 16.3 SECONDS 11.7-14.9 [facility] 28.7 Seconds 24.1-36.2 [facility] 58 mL/min >60 [facility] 70 mL/min >60 [facility] 11.2 RATIO 10-20 [facility] 4.8 g/dL 2.2-4.2 [facility] 17 U/L 13-75 [facility] 98 U/L 45-117 [facility] 14 U/L 13-56 [facility] 27.0 mmol/L 21.0-32.0 [facility] Platelets bldOrdered By: Yvon Eric on 08-14-2023 Platelets (Bld) [#/Vol] 294 10*3/uL 150-450 [facility] Protein Test strip Ql (U)Ord ered By: Enrrique Eric on 08-14-2023 Protein Ql (U) 30 mg/dl Negative [facility] Serum or plasma albumin inga urement (mass/volume)Ordered By: Enrrique Eric on 08-14-2023 Albumin [Mass/Vol] 2.8 g/dL 3.2-5.[address] [facility] Serum or plasma calcium inga urement (mass/volume)Ordered By: Enrrique Eric on 08-14-2023 Calcium [Mass/Vol] 9.2 mg/dL 8.5-10.[address] [facility] Serum or plasma creatinine m easurement (mass/volume)Ordered By: Enrrique Eric on 08-14-2023 Creatinine [Mass/Vol] 0.98 mg/dL 0.55-1.02 [facility] Serum or plasma urea nitroge n measurement (mass/volume)Ordered By: Enrrique Eric on 08-14-2023 Urea nitrogen [Mass/Vol] 11 mg/dL 7-18 [facility] Squamous epithelial cells de tection in urine sediment by light microscopyOrdered By: Enrrique Eric on 08-14-2023 Epithelial cells.squamous LM Ql (Urine sed) 0 SEEN /hpf 5-10 [facility] Stool enteric pathogen panel by probe and target amplification methodOrdered By: Judson Hernandez on 08-14-2023 Gastrointestinal pathogens panel PACHECO+probe (Stl) [facility] Thin prep Papanicolaou smear with manual screeningOrdered By: Enrrique Eric on 08-14-2023 Thin prep Papanicolaou smear with manual screening 22 U/L 15-37 [facility] Comment on above: Moderate Hemolysis, Result may be falsely increased. Thin prep Papanicolaou smear with manual screening 6 5-15 [facility] Upper respiratory specimen i nfluenza A virus, influenza B virus, and severe acute respiratory syndromOrdered By: Enrrique Eric on 08-14-2023 Upper respiratory specimen influenza A virus, influenza B virus, and severe acute respiratory syndrom [facility] Urine blood detectionOrdered By: Enrrique Eric on 08-14-2023 RBC Ql (U) 25 /ul Negative [facility] RBC Ql (U) 0 SEEN /hpf 0-5 [facility] Urine clarityOrdered By: Yvon Eric on 08-14-2023 Clarity (U) Clear Clear [facility] Urine color determinationOrd ered By: Enrrique Eric on 08-14-2023 Color (U) Yellow Yellow [facility] Urine glucose detectionOrder ed By: Enrrique Eric on 08-14-2023 Glucose Ql (U) 100 mg/dl Normal [facility] Urine leukocyte esterase det ection by dipstickOrdered By: Enrrique Eric on 08-14-2023 Leukocyte esterase Test strip Ql (U) Negative Negative [facility] Urine pHOrdered By: Enrrique horan on 08-14-2023 pH (U) 6.0 [pH] 5.0 - 8.0 [facility] Urine sediment bacteria coun t by microscopy (number/high power field)Ordered By: Enrrique Eric on 08-14-2023 Bacteria LM.HPF (Urine sed) [#/Area] 0 /[HPF] None Seen [facility] Urine specific gravity measu rementOrdered By: Enrrique Eric on 08-14-2023 Specific gravity (U) [Rel density] 1.020 1.002-1.030 [facility] Urobilinogen Auto test strip Ql (U)Ordered By: Enrrique Eric on 08-14-2023 Urobilinogen Ql (U) Normal mg/dl Normal [facility] No Panel Informationon 08-09 Culture Urine >100,000 cfu/ml Multiple bacterial morphotypes present. Probable Contamination. Suggest recollection if clinically indicated. [facility] Work Phone: .Auto Diffon 08-04-2023 Basophil, Absolute 0.1 10 3/mcL Normal 0.0-0.2 [facility] ([place]) Comment on above: Performed By: #### C BC, GFR, A1C, ADIFF, CRP, TSH, CMP, ANEU, ESR #### [address] [address] Basophils/100 WBC (Bld) 0.7 % Normal 0.0-2.5 [facility] ([place]) Comment on above: Performed By: #### C BC, GFR, A1C, ADIFF, CRP, TSH, CMP, ANEU, ESR #### [address] [address] Eosinophil, Absolute 0.3 10 3/mcL Normal 0.0-0.4 [facility] ([place]) Comment on above: Performed By: #### C BC, GFR, A1C, ADIFF, CRP, TSH, CMP, ANEU, ESR #### [address] [address] Eosinophils/100 WBC (Bld) 4.2 % Normal 0.0-7.0 [facility] ([place]) Comment on above: Performed By: #### C BC, GFR, A1C, ADIFF, CRP, TSH, CMP, ANEU, ESR #### [address] [address] Lymphocyte, Absolute 2.2 10 3/mcL Normal 0.8-3.9 [facility] ([place]) Comment on above: Performed By: #### C BC, GFR, A1C, ADIFF, CRP, TSH, CMP, ANEU, ESR #### [address] [address] Lymphocytes/100 WBC (Bld) 28.9 % Normal 10.0-50.0 [facility] ([place]) Comment on above: Performed By: #### C BC, GFR, A1C, ADIFF, CRP, TSH, CMP, ANEU, ESR #### [address] [address] Monocyte, Absolute 0.4 10 3/mcL Normal 0.2-1.0 [facility] ([place]) Comment on above: Performed By: #### C BC, GFR, A1C, ADIFF, CRP, TSH, CMP, ANEU, ESR #### [address] [place] [address] Monocytes/100 WBC (Bld) 5.1 % Normal 1.7-13.0 [facility] ([place]) Comment on above: Performed By: #### C BC, GFR, A1C, ADIFF, CRP, TSH, CMP, ANEU, ESR #### [address] [address] Neutrophils/100 WBC (Bld) 61.1 % Normal 37.0-80.0 [facility] ([place]) Comment on above: Performed By: #### C BC, GFR, A1C, ADIFF, CRP, TSH, CMP, ANEU, ESR #### [address] [address] .GFRon 08-04-2023 GFR 62 ml/min/1.73sqm Normal [facility] ([place]) Comment on above: Result Comment: GFR Population [...] ADIFF, CRP, TSH, CMP, ANEU, ESR #### [address] [address] GFR Non- 51 ml/min/1.73sqm Normal [facility] ([place]) Comment on above: Result Comment: GFR Population [...] ADIFF, CRP, TSH, CMP, ANEU, ESR #### [address] [address] .NEUABSon 08-04-2023 Neutrophil, Absolute 4.6 10 3/mcL Normal 2.9-6.2 [facility] ([place]) Comment on above: Performed By: #### C BC, GFR, A1C, ADIFF, CRP, TSH, CMP, ANEU, ESR #### [address] [address] A1Con 08-04-2023 HbA1c (Bld) [Mass fraction] 5.8 % Normal 4.3-6.4 [facility] ([place]) Comment on above: Performed By: #### C BC, GFR, A1C, ADIFF, CRP, TSH, CMP, ANEU, ESR #### [address] [address] CBCon 08-04-2023 Erythrocyte distribution width (RBC) [Ratio] 13.5 % Normal 11.5-14.5 [facility] ([place]) Comment on above: Performed By: #### C BC, GFR, A1C, ADIFF, CRP, TSH, CMP, ANEU, ESR #### [address] [address] Hematocrit (Bld) [Volume fraction] 36.2 % Low 37.0-47.0 [facility] ([place]) Comment on above: Performed By: #### C BC, GFR, A1C, ADIFF, CRP, TSH, CMP, ANEU, ESR #### [address] [address] Hgb 12.2 G/dL Normal 12.0-16.0 [facility] ([place]) Comment on above: Performed By: #### C BC, GFR, A1C, ADIFF, CRP, TSH, CMP, ANEU, ESR #### [address] [address] MCH (RBC) [Entitic mass] 29.3 pg Normal 27.0-31.2 [facility] ([place]) Comment on above: Performed By: #### C BC, GFR, A1C, ADIFF, CRP, TSH, CMP, ANEU, ESR #### [address] [address] MCHC 33.6 G/dL Normal 33.0-37.0 [facility] ([place]) Comment on above: Performed By: #### C BC, GFR, A1C, ADIFF, CRP, TSH, CMP, ANEU, ESR #### [address] [address] MCV (RBC) [Entitic vol] 87.3 fL Normal 80.0-94.0 [facility] ([place]) Comment on above: Performed By: #### C BC, GFR, A1C, ADIFF, CRP, TSH, CMP, ANEU, ESR #### [address] [address] Platelet 303 10 3/mcL Normal 130-400 [facility] ([place]) Comment on above: Performed By: #### C BC, GFR, A1C, ADIFF, CRP, TSH, CMP, ANEU, ESR #### [address] [address] Platelet mean volume (Bld) [Entitic vol] 8.0 fL Normal 7.4-10.4 [facility] ([place]) Comment on above: Performed By: #### C BC, GFR, A1C, ADIFF, CRP, TSH, CMP, ANEU, ESR #### [address] [address] RBC 4.15 10 6/mcL Low 4.20-5.40 [facility] ([place]) Comment on above: Performed By: #### C BC, GFR, A1C, ADIFF, CRP, TSH, CMP, ANEU, ESR #### [address] [address] WBC 7.5 10 3/mcL Normal 4.6-10.8 [facility] ([place]) Comment on above: Performed By: #### C BC, GFR, A1C, ADIFF, CRP, TSH, CMP, ANEU, ESR #### [address] [address] CMPon 08-04-2023 Albumin Level 2.9 G/dL Low 3.4-4.8 [facility] ([place]) Comment on above: Performed By: #### C BC, GFR, A1C, ADIFF, CRP, TSH, CMP, ANEU, ESR #### [address] [address] Albumin/Globulin [Mass ratio] 0.7 {ratio} Low 1.1-2.5 [facility] ([place]) Comment on above: Performed By: #### C BC, GFR, A1C, ADIFF, CRP, TSH, CMP, ANEU, ESR #### [address] [address] ALP [Catalytic activity/Vol] 113 U/L Normal 40-135 [facility] ([place]) Comment on above: Performed By: #### C BC, GFR, A1C, ADIFF, CRP, TSH, CMP, ANEU, ESR #### [address] [address] ALT [Catalytic activity/Vol] 15 U/L Normal 14-59 [facility] ([place]) Comment on above: Performed By: #### C BC, GFR, A1C, ADIFF, CRP, TSH, CMP, ANEU, ESR #### [address] [address] AST [Catalytic activity/Vol] 16 U/L Normal 10-40 [facility] ([place]) Comment on above: Performed By: #### C BC, GFR, A1C, ADIFF, CRP, TSH, CMP, ANEU, ESR #### [address] [address] Bili Total 0.4 mg/dL Normal 0.2-1.0 [facility] ([place]) Comment on above: Result Comment: Use of this assay is not recommended for patients undergoing treatment with eltrombopag due to the potential for falsely elevated results. Performed By: #### C BC, GFR, A1C, ADIFF, CRP, TSH, CMP, ANEU, ESR #### [address] [address] BUN/Creatinine Ratio 12 ratio Normal 7-27 [facility] ([place]) Comment on above: Performed By: #### C BC, GFR, A1C, ADIFF, CRP, TSH, CMP, ANEU, ESR #### [address] [address] Calcium [Mass/Vol] 9.4 mg/dL Normal 8.4-10.2 [facility] [place] Comment on above: Performed By: #### C BC, GFR, A1C, ADIFF, CRP, TSH, CMP, ANEU, ESR #### [address] [address] Chloride [Moles/Vol] 107 mmol/L Normal 98-107 [facility] ([place]) Comment on above: Performed By: #### C BC, GFR, A1C, ADIFF, CRP, TSH, CMP, ANEU, ESR #### [address] [address] CO2 [Moles/Vol] 26 mmol/L Normal 23-31 [facility] ([place]) Comment on above: Performed By: #### C BC, GFR, A1C, ADIFF, CRP, TSH, CMP, ANEU, ESR #### [address] [address] Creatinine [Mass/Vol] 1.04 mg/dL High 0.55-1.02 [facility] ([place]) Comment on above: Performed By: #### C BC, GFR, A1C, ADIFF, CRP, TSH, CMP, ANEU, ESR #### [address] [address] Electrolyte Balance 13.0 mEq/L Normal 4.0-15.0 Replaced by [facility] ([place]) Comment on above: Performed By: #### C BC, GFR, A1C, ADIFF, CRP, TSH, CMP, ANEU, ESR #### [address] [address] Globulin 4.3 G/dL Normal [facility] ([place]) Comment on above: Performed By: #### C BC, GFR, A1C, ADIFF, CRP, TSH, CMP, ANEU, ESR #### [address] [address] Glucose [Mass/Vol] 111 mg/dL High 83-110 [facility] ([place] Comment on above: Performed By: #### C BC, GFR, A1C, ADIFF, CRP, TSH, CMP, ANEU, ESR #### [address] [address] Potassium [Moles/Vol] 3.6 mmol/L Normal 3.5-5.1 [facility] ([place]) Comment on above: Performed By: #### C BC, GFR, A1C, ADIFF, CRP, TSH, CMP, ANEU, ESR #### [address] [address] Sodium [Moles/Vol] 146 mmol/L High 136-145 [facility] ([place] Comment on above: Performed By: #### C BC, GFR, A1C, ADIFF, CRP, TSH, CMP, ANEU, ESR #### [address] [address] Total Protein 7.2 G/dL Normal 6.4-8.2 [facility] ([place]) Comment on above: Performed By: #### C BC, GFR, A1C, ADIFF, CRP, TSH, CMP, ANEU, ESR #### [address] [address] Urea nitrogen [Mass/Vol] 13 mg/dL Normal 7-18 [facility] ([place]) Comment on above: Performed By: #### C BC, GFR, A1C, ADIFF, CRP, TSH, CMP, ANEU, ESR #### [address] [address] FT4on 08-04-2023 Free T4 [Mass/Vol] 1.12 ng/dL Normal 0.76-1.46 [facility] ([place] Comment on above: Performed By: #### C BC, GFR, A1C, ADIFF, CRP, TSH, CMP, ANEU, ESR #### [place] [address] LIPIDon 08-04-2023 Cholesterol [Mass/Vol] 165 mg/dL Normal 0-200 [facility] ([place]) Comment on above: Result Comment: Chol esterol Reference Interval: Less than 200 Desirable 200-239 Borderline high risk 240 and above High risk Performed By: #### C BC, GFR, A1C, ADIFF, CRP, TSH, CMP, ANEU, ESR #### [place] [address] Cholesterol in HDL [Mass/Vol] 54 mg/dL Normal 40-60 [facility] ([place]) Comment on above: Performed By: #### C BC, GFR, A1C, ADIFF, CRP, TSH, CMP, ANEU, ESR #### [place] [address] Cholesterol in LDL [Mass/Vol] 94 mg/dL Normal 0-130 [facility] ([place]) Comment on above: Performed By: #### C BC, GFR, A1C, ADIFF, CRP, TSH, CMP, ANEU, ESR #### [place] [address] Triglyceride [Mass/Vol] 84 mg/dL Normal 0-150 [facility] ([place]) Comment on above: Result Comment: Trig lyceride Reference Interval: Less than 150 Normal 150-199 Borderline high risk 200-499 High risk 500 or higher Very high risk Performed By: #### C BC, GFR, A1C, ADIFF, CRP, TSH, CMP, ANEU, ESR #### [place] [address] TSHon 08-04-2023 TSH Qn 2.48 m[IU]/L Normal 0.36-3.74 [facility] ([place]) Comment on above: Performed By: #### C BC, GFR, A1C, ADIFF, CRP, TSH, CMP, ANEU, ESR #### [place] [id number] Glucose Glucometer (BldC) [M ass/Vol]Ordered By: Senthil Ortiz on 06-10-2023 Glucose [Mass/Vol] 107 mg/dL 74-[address] [facility] Comment on above: MANAGEMENT OF PATIEN T CARE PER NURSING PROTOCOL Absolute lymphocyte countOrd ered By: Senthil Ortiz on 06-08-2023 Lymphocytes Auto (Unsp spec) [#/Vol] 6.05 10*3/uL 0.83-4.51 [facility] Basophil percentageOrdered B y: Senthil Ortiz on 06-08-2023 Basophil percentage 103 mg/dL 74-106 [facility] Basophil percentage 139 mmol/L 136-145 [facility] Basophil percentage 3.5 mmol/L 3.5-5.1 [facility] Basophil percentage 109 mmol/L 98-107 [facility] Basophils (Bld) [#/Vol] 11.0 10*3/uL 4.4-11.0 [facility] Basophils (Bld) [#/Vol] 4.3 10*3/uL 2.0-7.7 [facility] Basophils/100 WBC (Bld) 0.3 % 0-1 [facility] Basophils/100 WBC (Bld) 39.0 % 47-70 [facility] Basophils/100 WBC (Bld) 1.0 % 0-5 [facility] Chloride [Moles/Vol] 109 mmol/L 98-107 [facility] Eosinophils/100 WBC (Bld) 1.0 % 0-5 [facility] Glucose [Mass/Vol] 103 mg/dL 74-[address] [facility] Comment on above: Fasting Glucose resu lt from 100 to 125 mg/dL suggests IMPAIRED HOMEOSTASIS per A.D.A. criteria. Neutrophils (Bld) [#/Vol] 4.3 10*3/uL 2.0-7.7 [facility] Neutrophils/100 WBC (Bld) 39.0 % 47-70 [facility] Potassium [Moles/Vol] 3.5 mmol/L 3.5-5.1 [facility] Sodium [Moles/Vol] 139 mmol/L 136-[address] [facility] WBC (Bld) [#/Vol] 11.0 10*3/uL 4.4-11.0 [facility] Blood erythrocytes count (nu mber/volume)Ordered By: Senthil Ortiz on 06-08-2023 RBC (Bld) [#/Vol] 4.40 10*6/uL 4.2-5.4 [facility] Blood hemoglobin measurement (mass/volume)Ordered By: Senthil Ortiz on 06-08-2023 Hemoglobin (Bld) [Mass/Vol] 13.4 g/dL 12.0-15.0 [facility] Blood lymphocytes/100 leukoc ytesOrdered By: Senthil Angel on 06-08-2023 Lymphocytes/100 WBC (Bld) 55.0 % 19-41 [facility] Blood monocytes/100 leukocyt esOrdered By: [facility] on 06-08-2023 Monocytes/100 WBC (Bld) 4.5 % 0-10 [facility] Blood platelet mean volumeOr dered By: Senthil Ortiz on 06-08-2023 Platelet mean volume (Bld) [Entitic vol] 9.4 fL 6.2-12.0 [facility] Determination of erythrocyte mean corpuscular volume (MCV)Ordered By: Senthil Ortiz on 06-08-2023 MCV (RBC) [Entitic vol] 91.4 fL 81-99 [facility] Hematocrit Auto (Bld) [Volum e fraction]Ordered By: Senthil Angel on 06-08-2023 Hematocrit (Bld) [Volume fraction] 40.2 % 37-47 [facility] - Chemistry and C hemistry - challengeOrdered By: Senthil Ortiz on 06-08-2023 CO2 [Moles/Vol] 23.0 mmol/L 21.0-32.0 [facility] Urea nitrogen/Creatinine [Mass ratio] 19.3 mg/mg 10-20 [facility] - Hematology and Cell countsOrdered By: Senthil Ortiz on 06-08-2023 Erythrocyte distribution width (RBC) [Entitic vol] 45.3 fL 35.1-43.9 [facility] Erythrocyte distribution width (RBC) [Ratio] 13.5 % 11.6-14.6 [facility] Immature granulocytes/100 WBC (Bld) 0.200 % 0.0-0.9 [facility] Comment on above: IG% - Immature Granu locytes (promyelocytes, myelocytes and metamyelocytes) > 1% indicates that a LEFT SHIFT is Present. MCH (RBC) [Entitic mass] 30.5 pg 27.0-32.0 [facility] Nucleated RBC/100 WBC (Bld) [Ratio] 0 % 0-5 [facility] MCHC Auto (RBC) [Mass/Vol]Or dered By: Senthil Ortiz on 06-08-2023 MCHC (RBC) [Mass/Vol] 33.3 g/dL 32-36 [facility] No Panel InformationOrdered By: Senthil Ortiz on 06-08-2023 Estimated Creatinine Clearance Calc 31.13 ml/min [facility] Estimated GFR (MDRD) Amer 59 mL/min >60 [facility] Comment on above: GFR Calc Estimated GFR (MDRD) Non-Af Amer 49 mL/min >60 [facility] Comment on above: Non- GFR Calc 30.5 pg 27.0-32.0 [facility] 13.5 % 11.6-14.6 [facility] 45.3 fl 35.1-43.9 [facility] 0.200 % 0.0-0.9 [facility] 0 % 0-5 [facility] 49 mL/min >60 [facility] 59 mL/min >60 [facility] 31.13 ml/min [facility] 19.3 RATIO 10-20 [facility] 23.0 mmol/L 21.0-32.0 [facility] Platelets bldOrdered By: Senthil Ortiz on 06-08-2023 Platelets (Bld) [#/Vol] 374 10*3/uL 150-450 [facility] Serum or plasma calcium inga urement (mass/volume)Ordered By: Senthil Ortiz on 06-08-2023 Calcium [Mass/Vol] 9.5 mg/dL 8.5-10.[address] [facility] Serum or plasma creatinine m easurement (mass/volume)Ordered By: Senthil Ortiz on 06-08-2023 Creatinine [Mass/Vol] 1.14 mg/dL 0.55-1.02 [facility] Comment on above: The validity of the calculated GFR & GFRAA in patients over 70 years has not been determined. Clinical correlation is essential. Serum or plasma urea nitroge n measurement (mass/volume)Ordered By: Senthil Ortiz on 06-08-2023 Urea nitrogen [Mass/Vol] 22 mg/dL 7-18 [facility] Thin prep Papanicolaou smear with manual screeningOrdered By: Senthil Ortiz on 06-08-2023 Thin prep Papanicolaou smear with manual screening 7 5-15 [facility] Bacteria identified Cx Nom ( U)Ordered By: Senthil Ortiz on 05-31-2023 Culture, urine Escherichia coli [facility] Culture, urine Vancomycin Resist. E . faecalis [facility] Culture, urine Aerococcus viridans. [facility] Basophil percentageOrdered B y: Senthil Ortiz on 05-31-2023 Basophil percentage 0 SEEN /hpf 0-5 [facility] Bilirubin Test strip Ql (U)O rdered By: Senthil Ortiz on 05-31-2023 Bilirubin Ql (U) Negative Negative [facility] COVID-19 virus antigen assay Ordered By: Senthil Ortiz on 05-31-2023 SARS-CoV-2 (COVID-19) Ag IA.rapid Ql (Resp) [facility] SARS-CoV-2 (COVID-19) Ag IA.rapid Ql (Resp) [facility] Culture, urineOrdered By: Darwin Ortiz on 05-31-2023 Bacteria identified Cx Nom (U) Escherichia coli [facility] Bacteria identified Cx Nom (U) Vancomycin Resist. E. faecalis [facility] Bacteria identified Cx Nom (U) Aerococcus viridans. [facility] Ketones Test strip Ql (U)Ord ered By: Senthil Ortiz on 05-31-2023 Ketones Ql (U) Negative Negative [facility] Mucus LM Ql (Urine sed)Order ed By: Senthil Ortiz on 05-31-2023 Mucus Ql (Urine sed) 0 SEEN /hpf [facility] Nitrite Test strip Ql (U)Ord ered By: Senthil Ortiz on 05-31-2023 Nitrite Ql (U) Negative Negative [facility] Protein Test strip Ql (U)Ord ered By: Senthil Ortiz on 05-31-2023 Protein Ql (U) Negative Negative [facility] Squamous epithelial cells de tection in urine sediment by light microscopyOrdered By: Senthil Ortiz on 05-31-2023 Epithelial cells.squamous LM Ql (Urine sed) 0 SEEN /hpf 5-10 [facility] Urine blood detectionOrdered By: Senthil Ortiz on 05-31-2023 RBC Ql (U) Negative Negative [facility] RBC Ql (U) 0 SEEN /hpf 0-5 [facility] Urine clarityOrdered By: Senthil Ortiz on 05-31-2023 Clarity (U) Clear Clear [facility] Urine color determinationOrd ered By: Senthil Ortiz on 05-31-2023 Color (U) Yellow Yellow [facility] Urine glucose detectionOrder ed By: Senthil Ortiz on 05-31-2023 Glucose Ql (U) Normal mg/dl Normal [facility] Urine leukocyte esterase det ection by dipstickOrdered By: Senthil Ortiz on 05-31-2023 Leukocyte esterase Test strip Ql (U) Negative Negative [facility] Urine pHOrdered By: Senthil Ortiz on 05-31-2023 pH (U) 6.0 [pH] 5.0 - 8.0 [facility] Urine sediment bacteria coun t by microscopy (number/high power field)Ordered By: Senthil Ortiz on 05-31-2023 Bacteria LM.HPF (Urine sed) [#/Area] 0 /[HPF] None Seen [facility] Urine specific gravity measu rementOrdered By: Senthil Ortiz on 05-31-2023 Specific gravity (U) [Rel density] 1.010 1.002-1.030 [facility] Urobilinogen Auto test strip Ql (U)Ordered By: Senthil Ortiz on 05-31-2023 Urobilinogen Ql (U) Normal mg/dl Normal [facility] Clostridium difficile detect ion by polymerase chain reactionOrdered By: Senthil Ortiz on 05-29-2023 C. difficile DNA PACHECO+probe Ql (Unsp spec) [facility] C. difficile DNA PACHECO+probe Ql (Unsp spec) [facility] Basophil percentageOrdered B y: Alee Yao on 05-17-2023 Basophil percentage 129 mg/dL 74-106 [facility] Basophil percentage 6.9 g/dL 6.4-8.2 [facility] Basophil percentage 0.70 mg/dL 0.20-1.00 [facility] Basophil percentage 143 mmol/L 136-145 [facility] Basophil percentage 3.2 mmol/L 3.5-5.1 [facility] Basophil percentage 110 mmol/L 98-107 [facility] Bilirubin [Mass/Vol] 0.70 mg/dL 0.20-1.00 [facility] Comment on above: For patients on eltr ombopag therapy, use of Dimension [place] TBIL is not recommended. Chloride [Moles/Vol] 110 mmol/L 98-107 [facility] Glucose [Mass/Vol] 129 mg/dL 74-[address] [facility] Comment on above: Fasting Glucose resu lt greater than or equal to 126 mg/dL suggests DIABETES MELLITUS per A.D.A. criteria. Potassium [Moles/Vol] 3.2 mmol/L 3.5-5.1 [facility] Protein [Mass/Vol] 6.9 g/dL 6.4-8.[address] [facility] Sodium [Moles/Vol] 143 mmol/L 136-[address] [facility] Glucose Glucometer (BldC) [M ass/Vol]Ordered By: Alee Yao on 05-17-2023 Glucose [Mass/Vol] 204 mg/dL 74-[address] [facility] Comment on above: MANAGEMENT OF PATIEN T CARE PER NURSING PROTOCOL Laboratory - Chemistry and C hemistry - challengeOrdered By: Alee Yao on 05-17-2023 ALP [Catalytic activity/Vol] 154 U/L 45-117 [facility] ALT [Catalytic activity/Vol] 77 U/L 13-56 [facility] CO2 [Moles/Vol] 26.0 mmol/L 21.0-32.0 [facility] Globulin (S) [Mass/Vol] 4.4 g/dL 2.2-4.2 [facility] Urea nitrogen/Creatinine [Mass ratio] 9.6 mg/mg 10-20 [facility] No Panel InformationOrdered By: Alee Yao on 05-17-2023 Estimated Creatinine Clearance Calc 30.86 ml/min [facility] Estimated GFR (MDRD) Amer 58 mL/min >60 [facility] Comment on above: GFR Calc Estimated GFR (MDRD) Non-Af Amer 48 mL/min >60 [facility] Comment on above: Non- GFR Calc 48 mL/min >60 [facility] 58 mL/min >60 [facility] 30.86 ml/min [facility] 9.6 RATIO 10-20 [facility] 4.4 g/dL 2.2-4.2 [facility] 154 U/L 45-117 [facility] 77 U/L 13-56 [facility] 26.0 mmol/L 21.0-32.0 [facility] Serum or plasma albumin inga urement (mass/volume)Ordered By: Alee Yao on 05-17-2023 Albumin [Mass/Vol] 2.5 g/dL 3.2-5.[address] [facility] Serum or plasma albumin/glob ulin mass ratioOrdered By: Alee Yao on 05-17-2023 Albumin/Globulin [Mass ratio] 0.6 {ratio} 0.9-2.4 [facility] Serum or plasma calcium inga urement (mass/volume)Ordered By: Alee Yao on 05-17-2023 Calcium [Mass/Vol] 9.4 mg/dL 8.5-10.[address] [facility] Serum or plasma creatinine m easurement (mass/volume)Ordered By: Alee Yao on 05-17-2023 Creatinine [Mass/Vol] 1.15 mg/dL 0.55-1.02 [facility] Comment on above: The validity of the calculated GFR & GFRAA in patients over 70 years has not been determined. Clinical correlation is essential. Serum or plasma urea nitroge n measurement (mass/volume)Ordered By: Alee Yao on 05-17-2023 Urea nitrogen [Mass/Vol] 11 mg/dL 04-19 [facility] Thin prep Papanicolaou smear with manual screeningOrdered By: Alee Yao on 05-17-2023 Thin prep Papanicolaou smear with manual screening 27 U/L [facility] Thin prep Papanicolaou smear with manual screening 7 02-14 [facility] Absolute lymphocyte countOrd ered By: Alee Yao on 05-16-2023 Lymphocytes Auto (Unsp spec) [#/Vol] 2.07 10*3/uL 0.83-4.51 [facility] Basophil percentageOrdered B y: Alee Yao on 05-16-2023 Basophils (Bld) [#/Vol] 5.3 10*3/uL 4.4-11.0 [facility] Basophils (Bld) [#/Vol] 2.7 10*3/uL 2.0-7.7 [facility] Basophils/100 WBC (Bld) 0.9 % 0-1 [facility] Basophils/100 WBC (Bld) 51.4 % 47-70 [facility] Basophils/100 WBC (Bld) 2.6 % 0-5 [facility] Eosinophils/100 WBC (Bld) 2.6 % 0-5 [facility] Neutrophils (Bld) [#/Vol] 2.7 10*3/uL 2.0-7.7 [facility] Neutrophils/100 WBC (Bld) 51.4 % 47-70 [facility] WBC (Bld) [#/Vol] 5.3 10*3/uL 4.4-11.[address] [facility] Blood erythrocytes count (nu mber/volume)Ordered By: Alee Yao on 05-16-2023 RBC (Bld) [#/Vol] 4.45 10*6/uL 4.2-5.4 [facility] Blood hemoglobin measurement (mass/volume)Ordered By: Alee Yao on 05-16-2023 Hemoglobin (Bld) [Mass/Vol] 13.2 g/dL 12.0-15.0 [facility] Blood lymphocytes/100 leukoc ytesOrdered By: Alee Yao on 05-16-2023 Lymphocytes/100 WBC (Bld) 39.1 % 19-41 [facility] Blood monocytes/100 leukocyt esOrdered By: Alee Yao on 05-16-2023 Monocytes/100 WBC (Bld) 5.8 % 0-10 [facility] Blood platelet mean volumeOr dered By: Alee Yao on 05-16-2023 Platelet mean volume (Bld) [Entitic vol] 10.7 fL 6.2-12.0 [facility] Determination of erythrocyte mean corpuscular volume (MCV)Ordered By: Alee Yao on 05-16-2023 MCV (RBC) [Entitic vol] 94.8 fL 81-99 [facility] Hematocrit Auto (Bld) [Volum e fraction]Ordered By: Alee Yao on 05-16-2023 Hematocrit (Bld) [Volume fraction] 42.2 % 37-47 [facility] Laboratory - Hematology and Cell countsOrdered By: Alee Yao on 05-16-2023 Erythrocyte distribution width (RBC) [Entitic vol] 43.3 fL 35.1-43.9 [facility] Erythrocyte distribution width (RBC) [Ratio] 12.3 % 11.6-14.6 [facility] Immature granulocytes/100 WBC (Bld) 0.200 % 0.0-0.9 [facility] Comment on above: IG% - Immature Granu locytes (promyelocytes, myelocytes and metamyelocytes) > 1% indicates that a LEFT SHIFT is Present. MCH (RBC) [Entitic mass] 29.7 pg 27.0-32.0 [facility] Nucleated RBC/100 WBC (Bld) [Ratio] 0 % 0-5 [facility] MCHC Auto (RBC) [Mass/Vol]Or dered By: Alee Yao on 05-16-2023 MCHC (RBC) [Mass/Vol] 31.3 g/dL 32-36 [facility] No Panel InformationOrdered By: Alee Yao on 05-16-2023 29.7 pg 27.0-32.0 [facility] 12.3 % 11.6-14.6 [facility] 43.3 fl 35.1-43.9 [facility] 0.200 % 0.0-0.9 [facility] 0 % 0-5 [facility] Platelets bldOrdered By: María Elena Yao on 05-16-2023 Platelets (Bld) [#/Vol] 227 10*3/uL 150-450 [facility] Basophil percentageOrdered B y: Alee Yao on 05-14-2023 Basophil percentage 3.0 mg/dL 2.5-4.9 [facility] Laboratory - Chemistry and C hemistry - challengeOrdered By: Alee Yao on 05-14-2023 Magnesium [Mass/Vol] 2.0 mg/dL 1.6-2.6 [facility] No Panel InformationOrdered By: Alee Yao on 05-14-2023 Methicillin-Resist S.aureus DNA PCR Negative Negative [facility] Negative Negative [facility] 2.0 mg/dL 1.6-2.6 [facility] Acetaminophen level (mass/vo lume)Ordered By: Alee Yao on 05-13-2023 Acetaminophen (Unsp spec) [Mass/Vol] < 2.0 ug/mL 10.0-30.0 [facility] Comment on above: Slight Icterus, Resu lt may be falsely decreased. Basophil percentageOrdered B y: Alee Yao on 05-13-2023 Basophil percentage 0.9 mmol/L 0.4-2.0 [facility] Lactate [Moles/Vol] 0.9 mmol/L 0.4-2.0 [facility] Basophil percentageOrdered B y: Octavia Gruber on 05-13-2023 Ammonia (P) [Moles/Vol] 15.0 umol/L [facility] Basophil percentage 15.0 umol/L [facility] Laboratory - Chemistry and C hemistry - challengeOrdered By: Alee Yao on 05-13-2023 CK [Catalytic activity/Vol] 41 U/L 26-192 [facility] Laboratory - Drug toxicology Ordered By: Alee Yao on 05-13-2023 Amphetamines Ql (U) Negative <1000 ng/mL [facility] Benzodiazepines Ql (U) Positive < 200 ng/mL [facility] Cannabinoids Screen Ql (U) Negative < 50 ng/mL [facility] Cocaine Ql (U) Negative < 300 ng/mL [facility] Opiates Ql (U) Positive < 300 ng/mL [facility] Laboratory - Microbiology an d Antimicrobial susceptibilityOrdered By: Octavia Gruber on 05-13-2023 SARS-CoV-2 (COVID-19) RNA PACHECO+probe Ql (Unsp spec) [facility] No Panel InformationOrdered By: Alee Yao on 05-13-2023 MDMA (Ecstasy) Screen Positive < 500 ng/mL [facility] Urine Barbiturates Screen Negative < 200 ng/mL [facility] Urine Drug Screen Comment [facility] Comment on above: CONFIRMATORY TESTING FOR ALL [...] Methadone Screen Negative < 300 ng/mL [facility] Negative < 50 ng/mL [facility] Positive < 300 ng/mL [facility] Ethyl Alcohol Level < 3.0 mg/dL [facility] Comment on above: The serum:whole bloo d ethanol ratio is approximately 1.14and varies slightly with hematocrit. Medical Alcohol reference interval and critical value innon-tolerant individuals; 50 - 100 Impairment 100 Intoxication 100 - 250 Severe Poisoning 250 - 400 Deep/possible fatal coma < 3.0 mg/dL [facility] 41 U/L 26-192 [facility] No Panel InformationOrdered By: Octavia Gruber on 05-13-2023 Hepatitis A IgM Antibody Negative Negative [facility] Hepatitis B Core IgM Antibody Negative Negative [facility] Hepatitis C Antibody (EIA) Non-Reactive Non Reactive [facility] Hepatitis C Antibody Comment Comment . [facility] Comment on above: Not infected with HC V unless early or acute infection issuspected (which may be delayed in an immunocompromisedindividual), or other evidence exists to indicate HCVinfection.Performed at: [address] [id number] Director: Ruben Tan PhD, Phone: [phone] Negative Negative [facility] Non-Reactive Non Reactive [facility] Comment . [facility] Serum or plasma hepatitis B virus surface antigen detection by immunoassayOrdered By: Octavia Gruber on 05-13-2023 HBV surface Ag IA Ql Negative Negative [facility] Serum procalcitonin measurem entOrdered By: Octavia Gruber on 05-13-2023 Procalcitonin [Mass/Vol] 2.29 ng/mL 0.00-0.09 [facility] Comment on above: A procalcitonin (PCT ) [...] Phencyclidine Ql (U) Negative < 25 ng/mL [facility] Whole blood hemoglobin A1c/t otal hemoglobin ratio (mass fraction)Ordered By: Cirilo Galeas on 05-13-2023 HbA1c (Bld) [Mass fraction] 7.0 % 3.8-5.6 [facility] Comment on above: Normal < 5.7 % Predi abetic 5.7 - 6.4 % Diabetic >or= 6.5 % Please note range changes. Basophil percentageOrdered B y: Papocathleen Morillo on 05-12-2023 Basophil percentage 0 SEEN /hpf 0-5 [facility] Bilirubin Test strip Ql (U)O rdered By: Papo Morillo on 05-12-2023 Bilirubin Ql (U) Negative Negative [facility] Culture, urineOrdered By: Ug o Morillo on 05-12-2023 Bacteria identified Cx Nom (U) Culture exhibits no growth. [facility] Bacteria identified Cx Nom (U) Culture exhibits no growth. [facility] INR in Blood by Coagulation assayOrdered By: Papo Morillo on 05-12-2023 INR Coag (Bld) [Relative time] 1.1 {INR} [facility] Ketones Test strip Ql (U)Ord ered By: Papo Morillo on 05-12-2023 Ketones Ql (U) Negative Negative [facility] Laboratory - CoagulationOrde red By: Papo Morillo on 05-12-2023 aPTT Coag (Bld) [Time] 28.7 s 24.1-36.2 [facility] PT Coag (PPP) [Time] 14.5 s 11.7-14.9 [facility] Laboratory - Microbiology an d Antimicrobial susceptibilityOrdered By: Papo Morillo on 05-12-2023 Bacteria identified Cx Nom (Bld) No growth in 5 days. [facility] Mucus LM Ql (Urine sed)Order ed By: Papo Morillo on 05-12-2023 Mucus Ql (Urine sed) 0 SEEN /hpf [facility] Nitrite Test strip Ql (U)Ord ered By: Papo Morillo on 05-12-2023 Nitrite Ql (U) Negative Negative [facility] No Panel InformationOrdered By: Papo Morillo on 05-12-2023 No growth in 5 days. [facility] 14.5 SECONDS 11.7-14.9 [facility] 28.7 Seconds 24.1-36.2 [facility] Protein Test strip Ql (U)Ord ered By: Papo Morillo on 05-12-2023 Protein Ql (U) 15 mg/dl Negative [facility] Squamous epithelial cells de tection in urine sediment by light microscopyOrdered By: Papo Morillo on 05-12-2023 Epithelial cells.squamous LM Ql (Urine sed) 0 SEEN /hpf 5-10 [facility] Urine blood detectionOrdered By: Papo Morillo on 05-12-2023 RBC Ql (U) 10 /ul Negative [facility] RBC Ql (U) 0 SEEN /hpf 0-5 [facility] Urine clarityOrdered By: Papo Morillo on 05-12-2023 Clarity (U) Clear Clear [facility] Urine color determinationOrd ered By: Papo Morillo on 05-12-2023 Color (U) Yellow Yellow [facility] Urine glucose detectionOrder ed By: Papo Morillo on 05-12-2023 Glucose Ql (U) Normal mg/dl Normal [facility] Urine leukocyte esterase det ection by dipstickOrdered By: Papo Morillo on 05-12-2023 Leukocyte esterase Test strip Ql (U) Negative Negative [facility] Urine pHOrdered By: Papo ny on 05-12-2023 pH (U) 7.0 [pH] 5.0 - 8.0 [facility] Urine sediment bacteria coun t by microscopy (number/high power field)Ordered By: Papo Morillo on 05-12-2023 Bacteria LM.HPF (Urine sed) [#/Area] 0 /[HPF] None Seen [facility] Urine specific gravity measu rementOrdered By: Papo Morillo on 05-12-2023 Specific gravity (U) [Rel density] 1.010 1.002-1.030 [facility] Urobilinogen Auto test strip Ql (U)Ordered By: Papo Morillo on 05-12-2023 Urobilinogen Ql (U) 1 mg/dl Normal [facility] No Panel Informationon 03-04 Culture Urine >100,000 cfu/ml Multiple bacterial morphotypes present. Probable Contamination. Suggest recollection if clinically indicated. [facility] Work Phone: LABORATORYOrdered By: Vanessa Root [...] CNOV Office Visit (UROLAE ) LUIZA GALO ([id number]) 1940 [facility] Date Time Provider Department 04/06/22 10:30 [...] Maggi Ellington RN Referring Provider: TEJAL RIVERA [[id number]] Allergies As of Date: 04/06/2022 Noted Allergy Reaction JANUVIA (SITAGLIPTIN) 05/23/2017 16 - Unknown LATEX 01/11/2018 4 - Hives METFORMIN 05/23/2017 16 - Unknown CODEINE 07/24/2012 14 - Other: See Comments Comments: Nausea Date Reviewed: 04/06/2022 Reviewed by: Tejal Rivera MD - Fully Assessed Reason for Visit: Urge Urinary Incontinence [3581] Cystoscopy-1 [303] Primary Visit Diagnosis:Urge incontinence [N39.41] Order(s):[] cephALEXin 50 (more content not included)... Normal [facility] UA DIP, URINE (POC)on 2021 BILIRUBIN UA (POCT) Negative Negative [facility] CLARITY UA (POCT) Clear [facility] COLOR UA (POCT) Yellow [facility] GLUCOSE UA (POCT) Negative Negative mg/dL [facility] HEMOGLOBIN/BLOOD UA (POCT) Negative Negative [facility] KETONE UA (POCT) Negative Negative mg/dL [facility] LEUKOCYTES UA (POCT) Trace Abnormal Negative [facility] NITRITE UA (POCT) Negative Negative [facility] PH UA (POCT) 5.0 4.5 - 8.0 [facility] Protein Ql (U) Negative Negative mg/dL [facility] SPECIFIC GRAVITY UA (POCT) 1.025 1.005 - 1.030 [facility] UROBILINOGEN UA (POCT) 0.2 E.U./dL Chelsea l E.U./dL [facility] CNPNon 03-23-2022 CNPN Telephone (UROLAG) GALOLUIZA ([id number]) 1940 F [place] Date Time Provider Department 03/23/22 TEJAL RIVERA During your visit today, we recorded the following information about you: Amanda Bassett Ma 03/23/2022 11:10 AM Signed Luiza Galo called today. : 1940 Allergies: [...] unspecified [N39.0] Order(s):URINE CULTURE [SQURCUL] Order #: [id number] FUTURE Prescriptions as of 03/23/2022 - ALPRAZolam [...] SYRINGE ULTRA-FINE 1 mL 31 gauge x 15/64" syrg - rosuvastatin (CRESTOR) 20 mg tablet [...] - SUN, TU, WED, FRID AND SAT - zolpidem (AMBIEN) [...] Encounter Status:Closed by TEJAL RIVERA on 03/23/22 [facility] No Panel Informationon 02-19 Culture Urine 50,000 - 100,000 cfu /ml Multiple bacterial morphotypes present. Probable Contamination. Suggest recollection if clinically indicated. [facility] Work Phone: LABORATORYOrdered By: Mercedez Brewster [...] 09-17 Culture Urine >100,000 cfu/ml Escherichia coli [facility] Work Phone: Escherichia coli Escherichia coli [facility] Work Phone: CNOVon 09-02-2021 CNOV Office Visit (UROLAE ) LUIZA GALO ([id number]) [address] [facility] Date Time Provider Department 09/02/21 9:00 AM [...] Maggi Ellington RN Referring Provider: TEJAL RIVERA [[id number]] Allergies As of Date: 09/02/2021 Noted Allergy [...] injection (XYLOCAINE)Disp: Rfl: UA DIP, URINE (POC) [[id number]] Order #: [id number]. #:[id number] Prescriptions as of 09/02/2021 - ALPRAZolam (XANAX) 0.5 mg tablet Take 0.5 mg by mouth three times daily. - furosemide (LASIX) 20 mg tablet Take 20 mg by mouth once daily. - TRESIBA FLEXTOUCH U-200 200 unit/mL (3 mL) in (more content not included)... Normal [facility] UA DIP, URINE (POC)on 2020 BILIRUBIN UA (POCT) Negative Negative [facility] CLARITY UA (POCT) Clear [facility] COLOR UA (POCT) Yellow [facility] GLUCOSE UA (POCT) Negative Negative mg/dL [facility] HEMOGLOBIN/BLOOD UA (POCT) Trace-intact Abnormal Negative [facility] KETONE UA (POCT) Negative Negative mg/dL [facility] LEUKOCYTES UA (POCT) Trace Abnormal Negative [facility] NITRITE UA (POCT) Negative Negative [facility] PH UA (POCT) 5.5 4.5 - 8.0 [facility] Protein Ql (U) Negative Negative mg/dL [facility] SPECIFIC GRAVITY UA (POCT) 1.025 1.005 - 1.030 [facility] UROBILINOGEN UA (POCT) 0.2 E.U./dL Chelsea l E.U./dL [facility] CNPNon 08-19-2021 CNPN Telephone (UROLAE) LUIZA GALO ([id number]) 1940 [facility] Date Time Provider [...] Nausea Date Reviewed: 06/17/2021 Reviewed by: Tejal A Bologna, MD - Fully Assessed Reason for Visit: Appointment [[id number]] Patient Question [9685] Prescriptions as of 08/19/2021 - ALPRAZolam (XANAX) [...] SYRINGE ULTRA-FINE 1 mL 31 gauge x 15/64" syrg - rosuvastatin (CRESTOR) 20 mg tablet [...] - SUN, , TUE, FRI AND SAT - zolpidem (AMBIEN) 10 mg [...] at bedtime. Meds Comments as of 10/06/2017: 1-4-18: Pt to mail list. CR Problem List As Of Date 08/19/2021 Noted Resolved Opioid dependence, continuous [F11.20] 07/24/2012 Benzodiazepine dependence, continuous [F13.20] 07/24/2012 Urge incontinence [N39.41] 05/23/2017 OAB (overactive bladder) [N32.81] 05/23/2017 Encounter Status:Closed by MAGGI VEGA RN on 08/19/21 [facility] CNOVon 06-17-2021 OV Office Visit (UROLAE ) LUIZA GALO ([id number]) 1940 F [place] Date Time Provider Department 06/17/21 1:45 PM [...] SYRINGE ULTRA-FINE 1 mL 31 gauge x 15/64" syrg rosuvastatin (CRESTOR) 20 mg tablet Take [...] Diagnosis Date (more content not included)... Normal [facility] Cult Urineon 12-28-2017 Cult Urine Test performed at [facility] ORGANISM: Escherichia coli (ID: 1) >100,000 CFU/ml Normal [facility] Comment on above: Performed By: #### C _URI ####[facility] [id number] Vital Signs Date Time Vital Sign Value Performing Clinician Facility 11-21-2023 00:16-0500 Body temperature 97.1 [degF] Dr. Rosalind Rubalcava Work Phone: [facility] 11-21-2023 00:16-0500 Diastolic blood pressure 75 mm[Hg] Dr. Rosalind Rubalcava Work Phone: [facility] 11-21-2023 00:16-0500 Heart rate 79 /min Dr. Rosalind Rubalcava Work Phone: [facility] 11-21-2023 00:16-0500 Respiratory rate 15 /min Dr. Rosalind Rubalcava Work Phone: [facility] 11-21-2023 00:16-0500 SaO2% (BldA) [Mass fraction] 95 % Dr. Rosalind Rubalcava Work Phone: [facility] 11-21-2023 00:16-0500 Systolic blood pressure 168 mm[Hg] Dr. Rosalind Rubalcava Work Phone: [facility] 11-20-2023 20:24-0500 Body mass index (BMI) [Ratio] 36.8 kg/m2 Dr. Rosalind Rubalcava Work Phone: [facility] 11-20-2023 20:24-0500 Body weight 85.[address] Rosalind Rubalcava Work Phone: [facility] 11-20-2023 20:14-0500 Body height 152.[address] Rosalind Rubalcava Work Phone: [facility] 10-24-2023 11:24-0500 Diastolic blood pressure 70 mm[Hg] Dr. Rosalind Rubalcava Work Phone: [facility] 10-24-2023 11:24-0500 Systolic blood pressure 150 mm[Hg] Dr. Rosalind Rubalcava Work Phone: [facility] 10-24-2023 11:00-0500 Body height 157.[address] Rosalind Rubalcava Work Phone: [facility] 10-24-2023 11:00-0500 Body mass index (BMI) [Ratio] 33.3 kg/m2 Dr. Rosalind Rubalcava Work Phone: [facility] 10-24-2023 11:00-0500 Body weight 82.[address] Rosalind Rubalcava Work Phone: [facility] 10-24-2023 11:00-0500 Heart rate 50 /min Dr. Rosalind Rubalcava Work Phone: [facility] 10-24-2023 11:00-0500 Respiratory rate 18 /min Dr. Rosalind Rubalcava Work Phone: [facility] 10-24-2023 11:00-0500 SaO2% (BldA) [Mass fraction] 93 % Dr. Rosalind Rubalcava Work Phone: [facility] 08-15-2023 11:27-0500 Heart rate 55 /min Dr. Rosalind Rubalcava Work Phone: [facility] 08-15-2023 08:09-0500 SaO2% (BldA) [Mass fraction] 96 % Dr. Rosalind Rubalcava Work Phone: [facility] 08-15-2023 07:44-0500 Body temperature 97.7 [degF] Dr. Rosalind Rubalcava Work Phone: [facility] 08-15-2023 07:44-0500 Diastolic blood pressure 48 mm[Hg] Dr. Rosalind Rubalcava Work Phone: [facility] 08-15-2023 07:44-0500 Respiratory rate 16 /min Dr. Rosalind Rubalcava Work Phone: [facility] 08-15-2023 07:44-0500 Systolic blood pressure 141 mm[Hg] Dr. Rosalind Rubalcava Work Phone: [facility] 08-15-2023 05:00-0500 Inhaled oxygen flow rate 2 L/min Dr. Rosalind Rubalcava Work Phone: [facility] 08-14-2023 16:11-0500 Body height 157.[address] Rosalind Rubalcava Work Phone: [facility] 08-14-2023 16:11-0500 Body mass index (BMI) [Ratio] 34.9 kg/m2 Dr. Rosalind Rubalcava Work Phone: [facility] 08-14-2023 16:11-0500 Body weight 86.[address] Rosalind Rubalcava Work Phone: [facility] 08-14-2023 15:20-0500 Diastolic blood pressure 54 mm[Hg] Dr. Rosalind Rubalcava Work Phone: [facility] 08-14-2023 15:20-0500 Heart rate 85 /min Dr. Rosalind Rubalcava Work Phone: [facility] 08-14-2023 15:20-0500 Respiratory rate 16 /min Dr. Rosalind Rubalcava Work Phone: [facility] 08-14-2023 15:20-0500 SaO2% (BldA) [Mass fraction] 97 % Dr. Rosalind Rubalcava Work Phone: [facility] 08-14-2023 15:20-0500 Systolic blood pressure 142 mm[Hg] Dr. Rosalind Rubalcava Work Phone: [facility] 08-14-2023 13:37-0500 Body temperature 100.2 [degF] Dr. Rosalind Rubalcava Work Phone: [facility] 08-14-2023 13:37-0500 Inhaled oxygen flow rate 2 L/min Dr. Rosalind Rubalcava Work Phone: [facility] 08-14-2023 11:52-0500 Body height 157.[address] Rosalind Rubalcava Work Phone: [facility] 06-10-2023 09:17-0400 Diastolic blood pressure 45 mm[Hg] Dr. Rosalind Rubalcava Work Phone: [facility] 06-10-2023 09:17-0400 Heart rate 56 /min Dr. Rosalind Rubalcava Work Phone: [facility] 06-10-2023 09:17-0400 Systolic blood pressure 123 mm[Hg] Dr. Rosalind Rubalcava Work Phone: [facility] 06-10-2023 05:45-0400 Respiratory rate 16 /min Dr. Rosalind Rubalcava Work Phone: [facility] 06-10-2023 05:45-0400 SaO2% (BldA) [Mass fraction] 97 % Dr. Rosalind Rubalcava Work Phone: [facility] 06-09-2023 12:20-0400 Body temperature 97.8 [degF] Dr. Rosalind Rubalcava Work Phone: [facility] 06-07-2023 10:36-0400 Body mass index (BMI) [Ratio] 33.7 kg/m2 Dr. Rosalind Rubalcava Work Phone: [facility] 06-07-2023 10:36-0400 Body weight 83.[address] Rosalind Rubalcava Work Phone: [facility] 06-01-2023 11:50-0400 Body height 157.[address] Rosalind Rubalcava Work Phone: [facility] 05-17-2023 16:05-0400 Body temperature 98.3 [degF] Dr. Rosalind Rubalcava Work Phone: [facility] 05-17-2023 16:05-0400 Diastolic blood pressure 53 mm[Hg] Dr. Rosalind Rubalcava Work Phone: [facility] 05-17-2023 16:05-0400 Heart rate 62 /min Dr. Rosalind Rubalcava Work Phone: [facility] 05-17-2023 16:05-0400 Respiratory rate 16 /min Dr. Rosalind Rubalcava Work Phone: [facility] 05-17-2023 16:05-0400 SaO2% (BldA) [Mass fraction] 96 % Dr. Rosalind Rubalcava Work Phone: [facility] 05-17-2023 16:05-0400 Systolic blood pressure 143 mm[Hg] Dr. Rosalind Rubalcava Work Phone: [facility] 05-17-2023 04:38-0400 Body mass index (BMI) [Ratio] 36.3 kg/m2 Dr. Rosalind Rubalcava Work Phone: [facility] 05-17-2023 04:38-0400 Body weight 89.[address] Rosalind Rubalcava Work Phone: [facility] 05-15-2023 09:05-0400 Inhaled oxygen flow rate 1.5 L/min Dr. Rosalind Rubalcava Work Phone: [facility] 05-13-2023 01:51-0400 Body height 157.[address] Rosalind Rubalcava Work Phone: [facility] 04-20-2023 14:23-0400 Body mass index (BMI) [Ratio] 36.2 kg/m2 Dr. Rosalind Rubalcava Work Phone: [facility] 04-20-2023 14:23-0400 Body weight 89.[address] Rosalind Rubalcava Work Phone: [facility] 04-20-2023 14:23-0400 Diastolic blood pressure 87 mm[Hg] Dr. Rosalind Rubalcava Work Phone: [facility] 04-20-2023 14:23-0400 Heart rate 63 /min Dr. Rosalind Rubalcava Work Phone: [facility] 04-20-2023 14:23-0400 Respiratory rate 18 /min Dr. Rosalind Rubalcava Work Phone: [facility] 04-20-2023 14:23-0400 SaO2% (BldA) [Mass fraction] 94 % Dr. Rosalind Rubalcava Work Phone: [facility] 04-20-2023 14:23-0400 Systolic blood pressure 176 mm[Hg] Dr. Rosalind Rubalcava Work Phone: [facility] 04-06-2022 10:39-0400 Body height 157.5 cm Tejal Rivera MD Work Phone: [facility] 04-06-2022 10:39-0400 Body weight 83.92 kg Tejal Rivera MD Work Phone: [facility] 04-06-2022 10:39-0400 Diastolic blood pressure 84 mm[Hg] Tejal Rivera MD Work Phone: [facility] 04-06-2022 10:39-0400 Systolic blood pressure 152 mm[Hg] Tejal Rivera MD Work Phone: [facility] 09-02-2021 09:09-0500 Body height 157.5 cm Tejal Rivera MD Work Phone: [facility] 09-02-2021 09:09-0500 Body weight 83.92 kg Tejal Rivera MD Work Phone: [facility] 09-02-2021 09:09-0500 Diastolic blood pressure 70 mm[Hg] Tejal Rivera MD Work Phone: [facility] 09-02-2021 09:09-0500 Systolic blood pressure 130 mm[Hg] Tejal Rivera MD Work Phone: [facility] 06-17-2021 13:39-0400 Body height 157.5 cm Tejal Rivera MD Work Phone: [facility] 06-17-2021 13:39-0400 Body weight 83.92 kg Tejal Rivera MD Work Phone: [facility] 06-17-2021 13:39-0400 Diastolic blood pressure 80 mm[Hg] Tejal Rivera MD Work Phone: [facility] 06-17-2021 13:39-0400 Systolic blood pressure 126 mm[Hg] Tejal Rivera MD Work Phone: [facility] Encounters Encounter Date Encounter Type Care Provider Facility Start: 03-11-2025 ambulatory Laverne VICTORIA Facility:[facility] Start: 03-11-2025 Laverne Lea MD [facility] Start: 03-06-2025 ambulatory Laverne VICTORIA Facility:[facility] Start: 03-06-2025 [facility] Start: 03-04-2025 ambulatory Jing VICTORIA Fac ility:[facility] Start: 03-04-20[facility] Start: 02-11-2025 End: 02-11-[address] Rosalind Rubalcava MD Work Phone: [facility] Work Phone: Start: 02-11-2025 [facility] Start: 02-11-2025 End: 02-11[facility] Start: 02-11-2025 End: 02-11-2025 ambulatory Laverne VICTORAI Facility:[facility] Start: 02-04-2025 [facility] Start: 02-04-2025 End: 02-04-2025 [facility] Start: 02-04-2025 End: 02-04-2025 ambulatory Laverne VICTORIA Facility:[facility] Start: 01-28-2025 End: 01-28-[address] Rosalind Rubalcava MD Work Phone: [facility] Work Phone: Start: 01-28-2025 End: 01-28-2025 Patient encounter procedure [facility] Work Phone: Start: 01-28-2025 End: 01-28-2025 [facility] Work Phone: Start: 01-14-2025 End: 01-14-2025 [facility] Start: 01-14-2025 End: 01-14-2025 [facility] Start: 01-14-2025 End: 01-14-2025 ambulatory Laverne VICTORIA Facility:[facility] Start: 01-10-2025 End: 01-10-[address] Rosalind Rubalcava MD Work Phone: [facility] Work Phone: Start: 01-10-2025 End: 01-10-2025 Patient encounter procedure Jing Jones [facility] Work Phone: Start: 01-10-2025 End: 01-10-2025 Departed Referred Laverne Lea MD [facility] Start: 01-10-2025 End: 01-10-2025 Jing Jones SENIOR BOOKKEEPER-[facility] Work Phone: Start: 01-09-2025 End: 01-10-[address] Rosalind Rubalcava MD Work Phone: [facility] Work Phone: Start: 01-09-2025 End: 01-09-2025 Patient encounter procedure Jing Jones SENIOR BOOKKEEPER-[facility] Work Phone: Start: 01-09-2025 End: 01-09-2025 Jing Jones SENIOR BOOKKEEPER-[facility] Work Phone: Start: 01-08-2025 End: 01-08-[address] 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 Rosalind Rubalcava MD Work Phone: [facility] Work Phone: Start: 12-24-2024 End: 12-24-2024 [facility] Start: 12-24-2024 [facility] Start: 12-24-2024 End: 12-24-2024 [facility] Start: 12-24-2024 End: 12-24-2024 ambulatory Efbeverly Lea OLS Facility:[facility] Start: 12-10-2024 End: 12-10-[address] Rosalind Rubalcava MD Work Phone: [facility] Work Phone: Start: 12-10-2024 End: 12-10-2024 Departed Referred [facility] Start: 12-10-2024 End: 12-10-2024 [facility] Start: 12-10-2024 End: 12-10-2024 ambulatory Efbeverly Lea OLS Facility:[facility] Start: 11-12-2024 ambulatory Efbeverly badillo OLS Facility:[facility] Start: 11-12-2024 [facility] Start: 10-15-2024 End: 10-15-2024 [facility] Start: 10-15-2024 End: 10-15-2024 ambulatory Efbeverly Lea OLS Facility:[facility] Start: 10-01-2024 ambulatory Efbeverly badillo OLS Facility:[facility] Start: 10-01-2024 [facility] Start: 09-21-2024 End: 09-21-2024 ambulatory Jing Jones NP Facility:[facility] Start: 09-21-2024 End: 09-21-2024 Patient encounter [facility] Start: 09-13-2024 ambulatory Laverne badillo OLS Facility:[facility] Start: 09-13-2024 Registered Referred Laverne Lea MD [facility] Start: 09-10-2024 ambulatory Efbeverly badillo OLS Facility:[facility] Start: 09-10-2024 Registered Referred Laverne Lea MD [facility] Start: 09-03-2024 End: 09-03-2024 ambulatory Jing Jones SENIOR BOOKKEEPER Facility:[facility] Start: 08-20-2024 End: 08-20-2024 ambulatory Efbeverly Lea OLS Facility:[facility] Start: 08-13-2024 ambulatory Efbeverly badillo OLS Facility:[facility] Start: 07-30-2024 End: 07-30-2024 ambulatory [facility] SENIOR BOOKKEEPER Facility[facility] Start: 07-19-2024 End: 07-19-2024 ambulatory Doe Orr Facility:[facility] Start: 07-16-2024 ambulatory Efbeverly badillo OLS Facility:[facility] Start: 07-09-2024 ambulatory Effatouongnate badillo OLS Facility:[facility] Start: 06-25-2024 ambulatory Effatuoongnate badillo OLS Facility:[facility] Start: 06-14-2024 ambulatory Rosalind Rubalcava Facility: [facility] Start: 06-11-2024 ambulatory Efbeverly badillo OLS Facility:[facility] Start: 06-01-2024 ambulatory Efbeverly badillo OLS Facility:[facility] Start: 05-31-2024 ambulatory Effatouongnate badillo OLS Facility:[facility] Start: 05-29-2024 End: 05-29-2024 ambulatory Efewongnate Lea Facility:[facility] Start: 05-28-2024 End: 05-28-2024 [facility] Start: 05-23-2024 End: 05-27-2024 ambulatory ROSALIND RUBALCAVA MD Facility:[facility] Start: 05-23-2024 End: 05-27-2024 Outreach Lab ROSALIND RUBALCAVA MD [facility] Start: 05-10-2024 ambulatory Rosalind Rubalcava Facility: [facility] Start: 04-25-2024 End: 04-25-2024 ambulatory Doe Orr Facility:[facility] Start: 04-19-2024 End: 04-19-2024 Emergency department patient visit Enrrique Eric Facility:[facility] Start: 04-07-2024 End: 04-08-2024 Emergency department patient visit Tonny Herbert Facility:[facility] Start: 04-01-2024 End: 04-02-2024 ambulatory Fausto Wright Facility:[facility] Start: 03-06-2024 End: 03-06-2024 ambulatory ROSALIND RUBALCAVA MD Facility:[facility] Start: 03-03-2024 End: 05-21-2024 ambulatory ROSALIND RUBALCAVA MD Facility:[facility] Start: 01-15-2024 Non-patient / Non-visit Dr. Rosalind Rubalcava Work Phone: [facility] Work Phone: Start: 01-13-2024 Non-patient / Non-visit Dr. Rosalind Rubalcava Work Phone: [facility] Start: 01-13-2024 End: 01-13-[address] Rosalind Rubalcava Work Phone: [facility] Work Phone: Start: 01-13-2024 End: 01-13-[address] Rosalind Rubalcava Work Phone: [facility] Work Phone: Start: 12-28-2023 End: 12-28-[address] Rosalind Rubalcava Work Phone: [facility] Work Phone: Start: 12-28-2023 End: 12-28-[address] Rosalind Rubalcava Work Phone: [facility] Work Phone: Start: 12-15-2023 End: 12-15-[address] Rosalind Rubalcava Work Phone: [facility] Work Phone: Start: 12-15-2023 End: 12-15-[address] [facility] Start: 11-20-2023 End: 11-21-2023 Emergency department patient visit Dr[facility]alind [facility]alcava [facility] Start: 11-10-2023 End: 11-10-[address] Rosalind Rubalcava Work Phone: [facility] Work Phone: Start: 11-04-2023 End: 11-04-[address] [facility] Start: 11-01-2023 End: 11-01-2023 ambulatory ROSALIND RUBALCAVA MD Facility:[facility] Start: 10-24-2023 End: 10-24-[address] Rosalind Rubalcava Work Phone: [facility] Work Phone: Start: 10-24-2023 End: 10-24-[address] Rosalind Rubalcava Work Phone: [facility] Work Phone: Start: 09-22-2023 End: 09-22-2023 ambulatory KATALINA MANCINI Facility:[facility] Start: 09-22-2023 End: 09-22-2023 Patient encounter procedure ROSALIND RUBALCAVA MD [facility] Start: 08-15-2023 Non-patient / Non-visit Dr. Rosalind Rubalcava Work Phone: [facility] Work Phone: Start: 08-15-2023 Dr. Rosalind willis Work Phone: [facility] Work Phone: Start: 08-14-2023 End: 08-15-2023 Evaluation and management of inpatient Dr. Rosalind Rubalcava Work Phone: [facility] Work Phone: Start: 08-14-2023 End: 08-15-[address] Rosalind Rubalcava Work Phone: [facility] Work Phone: Start: 08-14-2023 End: 08-15-2023 Dr. Rosalind Rubalcava Work Phone: [facility] Work Phone: Start: 2023 End: 08-13-2023 ambulatory ROSALIND RUBALCAVA MD Facility:[facility] Start: 2023 End: 08-13-2023 Outreach Lab ROSALIND RUBALCAVA MD [facility] Start: 08-04-2023 End: 08-04-2023 ambulatory ROSALIND RUBALCAVA MD Facility:[facility] Start: 05-17-2023 End: 06-10-2023 Evaluation and management of inpatient Dr. Rosalind Rubalcava Work Phone: [facility] Start: 05-17-2023 End: 06-10-2023 Dr. [facility]ava [facility] Start: 05-17-2023 Non-patient / Non-visit Dr. Rosalind Rubalcava Work Phone: [facility] Work Phone: Start: 05-17-2023 Dr. Rosalind willis Work Phone: [facility] Work Phone: Start: 05-16-2023 Non-patient / Non-visit Dr. Rosalind Rubalcava Work Phone: [facility] Work Phone: Start: 05-16-2023 Dr. Rosalind willis Work Phone: [facility] Work Phone: Start: 05-15-2023 Non-patient / Non-visit Dr. Rosalind Rubalcava Work Phone: [facility] Work Phone: Start: 05-15-2023 Dr. Rosalind willis Work Phone: [facility] Work Phone: Start: 05-14-2023 Non-patient / Non-visit Dr. Rosalind Rubalcava Work Phone: [facility] [facility] Work Phone: Start: 05-14-2023 Dr. Rosalind willis Work Phone: [facility] Work Phone: Start: 05-14-2023 Non-patient / Non-visit Dr. Rosalind Rubalcava Work Phone: [facility] Start: 05-14-2023 Dr. Rosalind willis Work Phone: [facility] Start: 05-13-2023 Non-patient / Non-visit Dr. Rosalind Rubalcava Work Phone: [facility] Start: 05-13-2023 Dr. Rosalind willis Work Phone: [facility] Start: 05-13-2023 End: 05-17-2023 Evaluation and management of inpatient Dr. Rosalind Rubalcava Work Phone: [facility] Work Phone: Start: 05-13-2023 Non-patient / Non-visit Dr. Rosalind Rubalcava Work Phone: [facility] Work Phone: Start: 05-13-2023 End: 05-17-2023 Dr. Rosalind Rubalcava Work Phone: [facility] Work Phone: Start: 04-20-2023 End: 04-20-[address] Rosalind Rubalcava Work Phone: [facility] Work Phone: Start: 04-20-2023 End: 04-20-2023 Dr. Rosalind Rubalcava Work Phone: [facility] Work Phone: Start: 03-04-2023 End: 03-08-2023 Outreach Lab [facility] FA[facility] Start: 12-17-2022 End: 12-17-2022 Patient encounter procedure ROSALIND RUBALCAVA MD [facility] Start: 05-11-2022 End: 05-11-2022 Patient encounter procedure ROSALIND RUBALCAVA MD [facility] Start: 04-06-2022 End: 04-06-2022 Patient encounter procedure Tejal Rivera MD Work Phone: Urology Comment on above: Urge incontinence (P rimary Dx) Start: 03-24-2022 End: 03-24-2022 Patient encounter procedure TEJAL RIVERA MD [facility] Start: 03-23-2022 Telephone encounter Tejal Rivera MD Work Phone: Urology Comment on above: Orders Start: 02-19-2022 End: 02-23-2022 Outreach Lab ARIANE RAMIREZ APRN-PAINT [employer] Start: 11-10-2021 End: 11-10-2021 Patient encounter procedure ROSALIND RUBALCAVA MD [facility] Start: 09-17-2021 End: 09-21-2021 Outreach Lab BASILIA Ball SHMUEL DO [facility] Start: 09-02-2021 End: 09-02-2021 Patient encounter [...] Dx); Nocturia Start: 08-16-2018 Patient encounter SAMIR Owen acility:[facility] Start: 07-19-2018 Patient encounter TEJAL RIVERA Facility:[facility] Start: 07-13-2018 End: 07-13-2018 Patient encounter SAMIR BEJARANO Facility:[facility] Start: 07-03-2018 Patient encounter JONA Owen acility:[facility] Start: 06-15-2018 End: 06-15-2018 Patient encounter SAMIR BEJARANO Facility:[facility] Start: 05-15-2018 Patient encounter SAMIR BEJARANO Lexie acility:[facility] Start: 04-13-2018 End: 04-13-2018 Patient encounter SAMIR BEJARANO Facility:[facility] Start: 03-22-2018 End: 03-22-2018 Patient encounter SAMIR BEJARANO Facility:[facility] Start: 03-15-2018 Patient encounter SAMIR Owen acility:[facility] Start: 02-22-2018 End: 02-22-2018 Patient encounter SAMIR BEJARANO Facility:[facility] Start: 01-26-2018 End: 01-26-2018 Patient encounter JONA VELAZCO Facility:[facility] Start: 01-16-2018 Patient encounter ROSALIND Leal cility:[facility] Start: 01-11-2018 End: 01-11-2018 [facility] Start: 12-28-2017 End: 12-29-2017 Patient encounter JONA VELAZCO Facility:[facility] Start: 12-28-2017 End: 12-28-2017 Patient encounter JONA VELAZCO Facility:[facility] Start: 10-06-2017 End: 10-06-2017 [facility] Facility[facility] Start: 09-20-2017 Patient [facility] Start: 08-19-2017 End: 08-19-2017 Patient encounter TEJAL Tyesha [facility] Facility:[facility] Procedures Date Procedure Procedure Detail Performing Clinician Start: 03-11-2025 Blood count smear mcrscp w/mnl difrntl wbc count Dr. Rosalind Rubalcava MD Work Phone: Start: 03-11-2025 Mean corpuscular hemoglobin concentration determination Dr. Rosalind Rubalcava MD Work Phone: Start: 03-11-2025 Nucleated red blood cell count procedure Dr. Rosalind Rubalcava MD Work Phone: Start: 03-11-2025 Platelet mean volume determination Dr. Rosalind Rubalcava MD Work Phone: Start: 03-06-2025 Blood count smear mcrscp w/mnl difrntl wbc count Dr. Rosalind Rubalcava MD Work Phone: Start: 03-06-2025 Mean corpuscular hemoglobin concentration determination Dr. Rosalind Rubalcava MD Work Phone: Start: 03-06-2025 Nucleated red blood cell count procedure Dr. Rosalind Rubalcava MD Work Phone: Start: 03-06-2025 Platelet mean volume determination Dr. Rosalind Rubalcava MD Work Phone: Start: 03-04-[address] Rosalind Rubalcava MD Work Phone: Start: 03-04-2025 End: 03-04-2025 Microbial culture, routine Dr. Rosalind higuera MD Work Phone: Start: 02-11-2025 Blood count smear mcrscp w/mnl difrntl wbc count Dr. Rosalind Rubalcava MD Work Phone: Start: 02-11-2025 Mean corpuscular hemoglobin concentration determination Dr. Rosalind Rubalcava MD Work Phone: Start: 02-11-2025 Nucleated red blood cell count procedure Dr. Rosalind Rubalcava MD Work Phone: Start: 02-11-2025 Platelet mean volume determination Dr. Rosalind Rubalcava MD Work Phone: Start: 01-14-2025 Blood count smear mcrscp w/mnl difrntl wbc count Dr. Rosalind Rubalcava MD Work Phone: Start: 01-14-2025 Mean corpuscular hemoglobin concentration determination Dr. Rosalind Rubalcava MD Work Phone: Start: 01-14-2025 Nucleated red blood cell count procedure Dr. Rosalind Rubalcava MD Work Phone: Start: 01-14-2025 Platelet mean volume determination Dr. Rosalind Rubalcava MD Work Phone: Start: 01-10-2025 Blood count smear mcrscp w/mnl difrntl wbc count Dr. Rosalind Rubalcava MD Work Phone: Start: 01-10-2025 Mean corpuscular hemoglobin concentration determination Dr. Rosalind Rubalcava MD Work Phone: Start: 01-10-2025 Nucleated red blood cell count procedure Dr. Rosalind Rubalcava MD Work Phone: Start: 01-10-2025 Platelet mean volume determination Dr. Rosalind Rubalcava MD Work Phone: Start: 12-10-2024 Blood count smear mcrscp w/mnl difrntl wbc count Dr. Rosalind Rubalcava MD Work Phone: Start: 12-10-2024 Mean corpuscular hemoglobin concentration determination Dr. Rosalind Rubalcava MD Work Phone: Start: 12-10-2024 Nucleated red blood cell count procedure Dr. Rosalind Rubalcava MD Work Phone: Start: 12-10-2024 Platelet mean volume determination Dr. Rosalind Rubalcava MD Work Phone: Start: 11-12-2024 Measurement of renal function Dr. [...] Start: 08-14-[address] Rosalind Rubalcava Work Phone: Start: 08-14-2023 Dr. Rosalind Rubalcava [...] A/V wires Start: 05-27-2017 Cardiac catheterization BASILIA [place] Start: 05-03-2017 History of coronary artery bypass [...] Date Care Activity Detail Author Start: 11-20-2023 [facility] Start: 08-15-2023 Patient discharge [facility] Start: 08-15-2023 Oxygen therapy [facility] Start: 08-14-2023 Ambulation without limitation [facility] Start: 08-14-2023 Assessment of risk o f venous thromboembolism [facility] Start: 08-14-2023 Care regimes management [facility] Start: 08-14-2023 Insertion of cathete r into peripheral vein [facility] Start: 08-14-2023 Notification of physician [facility] Start: 08-14-2023 Providing care accor ding to standard [facility] Start: 08-14-2023 Referral to occupati onal therapist [facility] Start: 08-14-2023 Referral to service [facility] Start: 08-14-2023 Verification routine [facility] Start: 08-14-2023 Admission procedure [facility] Start: 08-14-2023 Hospital admission, emergency, from emergency room, medical nature [facility] Start: 08-14-2023 End: 08-14-2023 [facility] Start: 08-14-2023 End: 08-14-2023 Blood culture [facility] Start: 06-10-2023 Development of care plan [facility] Start: 06-10-2023 Patient discharge [facility] Start: 06-09-2023 [facility] Start: 06-07-2023 Referral to service [facility] Start: 06-06-2023 [facility] Start: 06-02-2023 [facility] Start: 05-31-2023 End: 06-01-2023 [facility] Start: 05-31-2023 [facility] Start: 05-19-2023 Speech therapy management [facility] Start: 05-18-2023 Speech therapy assessment [facility] Start: 05-18-2023 Development of care plan [facility] Start: 05-18-2023 Developing a treatme nt plan [facility] Start: 05-17-2023 Admission procedure [facility] Start: 05-17-2023 Measuring intake and output [facility] Start: 05-17-2023 Patient referral to dietitian [facility] Start: 05-17-2023 Referral to occupati onal therapist [facility] Start: 05-17-2023 Referral to service [facility] Start: 05-17-2023 Vital signs measurements [facility] Start: 05-17-2023 [facility] Start: 05-17-2023 Following clinical p athway protocol [facility] Start: 05-17-2023 Patient discharge [facility] Start: 05-17-2023 Patient referral to dietitian [facility] Start: 05-16-2023 [facility] Start: 05-13-2023 [facility] Start: 05-13-2023 Catheterization of vein [facility] Start: 05-13-2023 Cardiac monitoring [facility] Start: 05-13-2023 Catheterization of vein [facility] Start: 05-13-2023 Continuous pulse oximetry [facility] Start: 05-13-2023 Notification of physician [facility] Start: 05-13-2023 Application of intermittent pneumatic compression device [facility] Start: 05-13-2023 Aspiration precautions [facility] Start: 05-13-2023 Assessment of risk o f venous thromboembolism [facility] Start: 05-13-2023 Care regimes management [facility] Start: 05-13-2023 Fall prevention [facility] Start: 05-13-2023 Insertion of cathete r into peripheral vein [facility] Start: 05-13-2023 Introduction of urin sumeet catheter [facility] Start: 05-13-2023 Measuring intake and output [facility] Start: 05-13-2023 Notification of physician [facility] Start: 05-13-2023 Oxygen therapy [facility] Start: 05-13-2023 Providing care accor ding to standard [facility] Start: 05-13-2023 Provision of activit y privileges [facility] Start: 05-13-2023 Referral to gastroenterology service [facility] Start: 05-13-2023 Referral to occupati onal therapist [facility] Start: 05-13-2023 Referral to service [facility] Start: 05-13-2023 Following clinical p athway protocol [facility] Start: 05-13-2023 Admission procedure [facility] Start: 05-13-2023 Inhalation therapy procedure [facility] Start: 05-13-2023 End: 05-13-2023 [facility] Start: 05-12-2023 End: 05-12-2023 Blood culture [facility] Start: 05-12-2023 Bacteria identified in Blood by Culture Blood Culture [facility] Start: 09-29-2022 End: 11-29-2022 Bacteria identified in Urine by Culture URINE CULTURE Microbiology Routine Urge incontinence Expected: 09/29/2022 (Approximate), Expires: 11/29/2022 [facility] Work Phone: Comment on above: Expected: 09/29/2022 (Approximate), Expires: 11/29/2022 Start: 06-03-2022 Influenza vaccination INFLUENZA (#1) [facility] Start: 03-23-2022 End: 03-23-2023 Bacteria identified in Urine by Culture URINE CULTURE Microbiology Routine Urinary tract infection without hematuria, site unspecified Expected: 03/23/2022, Expires: 03/23/2023 [facility] Work Phone: Comment on above: Expected: 03/23/2022 , Expires: 03/23/2023 Start: 12-06-2021 COVID-19 VACCINE (4 - Booster for Moderna series) COVID-19 VACCINE (4 - Booster for Moderna series) [facility] Start: 10-03-2021 ADVANCE DIRECTIVE DISCUSSION ADVANCE DIRECTIVE DISCUSSION [facility] Start: 06-19-2021 COVID-19 VACCINE (3 - Booster for Moderna series) COVID-19 VACCINE (3 - Booster for Moderna series) [facility] Start: 06-03-2021 Influenza vaccination INFLUENZA (#1) [facility] Start: 2007 ADVANCE DIRECTIVE DISCUSSION ADVANCE DIRECTIVE DISCUSSION [facility] Start: 2007 BONE DENSITY BONE DENSITY [facility] Start: 2007 PNEUMOCOCCAL: 65+ (1 - PCV) PNEUMOCOCCAL: 65+ (1 - PCV) [facility] Start: 2007 PNEUMOVAX AGE 65 AND OVER WITH 5YR LOOKBACK (#1) PNEUMOVAX AGE 65 AND OVER WITH 5YR LOOKBACK (#1) [facility] Start: 1992 SHINGRIX VACCINE (1 of 2) SAM GRIX VACCINE (1 of 2) [facility] Start: 1987 DIABETES SCREEN DIABETES SCREEN [facility] Start: 1961 Urine microalbumin profile DTA P,TDAP,TD (1 - Tdap) [facility] Start: 1960 HEPATITIS C SCREENING HEPATITIS C SC GHAZAL [facility] Start: 1954 Adult depression scr eening assessment DEPRESSION SCREENING [facility] Patient Education ED Fracture, V ertebral Compression ED Hematoma [facility] Work Phone: Patient referral [facility] Immunizations Immunization Date Immunization Notes Care Provider Fa cili 05-26-2023 Covid Moderna Bivale nt Booster Dr. Rosalind Rubalcava Work Phone: [facility] 05-26-2023 SARS-CoV-2 (CV19)mRNA-1273 bivalent vac 1 ROSALIND RUBALCAVA MD [facility] Comment on above: Result Comment: 2022: [id number] 07-01-2022 influenza virus vacc ine, unspecified formulation ROSALIND RUBALCAVA MD [facility] 08-08-2021 SARS-CoV-2 (COVID-19 ) mRNA-1273 vaccine BASILIA MI DO [facility] Comment on above: Result Comment: 2020: [id number] 06-25-2021 influenza virus vacc ine, unspecified formulation BASILIA MI DO [facility] 06-25-2021 Influenza, high dose seasonal Dr. Rosalind Rubalcava MD Work Phone: [facility] 06-25-2021 influenza, high dose seasonal, preservative-free Dr. Rosalind Rubalcava Work Phone: [facility] 12-22-2020 Covid (Moderna) Dr. Rosalind evans Work Phone: [facility] 12-17-2020 SARS-CoV-2 (COVID-19 ) mRNA-1273 vaccine BASILIA MI DO [facility] Comment on above: Result Comment: 2020: [id number] 11-20-2020 SARS-CoV-2 (COVID-19 ) mRNA-1273 vaccine BASILIA MI DO [facility] 09-16-2020 zoster vaccine recombinant BASILIA MI DO [facility] 07-25-[address] Rosalind Rubalcava Work Phone: [facility] 07-16-2020 zoster vaccine recombinant BASILIA MI DO [facility] 06-25-2020 influenza virus vacc ine, unspecified formulation BASILIA MI DO [facility] 06-25-2020 influenza, injectabl e, quadrivalent, preservative free Dr. Rosalind Rubalcava Work Phone: [facility] 06-10-2020 influenza virus vacc ine, unspecified formulation BASILIA MI DO [facility] 06-10-2020 Influenza, high dose seasonal Dr. Rosalind Rubalcava MD Work Phone: [facility] 06-10-2020 influenza, high dose seasonal, preservative-free Dr. Rosalind Rubalcava Work Phone: [facility] 07-11-2019 influenza, injectabl e, quadrivalent, preservative free; 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: [Fluarix PF Quadrivalent ] BASILIA MI DO [facility] 06-03-2018 influenza virus vacc ine, unspecified formulation BASILIA MI DO [facility] 06-03-2018 influenza, injectabl e, quadrivalent, preservative free Dr. Rosalind Rubalcava Work Phone: [facility] 08-16-2017 tetanus toxoid, redu chiqui diphtheria toxoid, and acellular pertussis vaccine, adsorbed BASILIA MI DO [facility] 07-13-[address] Rosalind Rubalcava Work Phone: [facility] 07-13-2017 influenza, injectabl e, quadrivalent, preservative free BASILIA MI DO [facility] 10-27-2016 pneumococcal conjuga te vaccine, 13 valent BASILIA MI DO [facility] 06-11-2016 influenza virus vacc ine, unspecified formulation BASILIA MI DO [facility] 06-11-2016 influenza, injectabl e, quadrivalent, preservative free Dr. Rosalind Rubalcava Work Phone: [facility] 08-26-2015 influenza virus vacc ine, unspecified formulation BASILIA MI DO [facility] 08-26-2015 influenza, injectabl e, quadrivalent, preservative free Dr. Rosalind Rubalcava Work Phone: [facility] 08-23-2014 influenza virus vacc ine, unspecified formulation BASILIA SHMUEL DO [facility] 08-23-2014 influenza, injectabl e, quadrivalent, preservative free Dr. Rosalind Rubalcava Work Phone: [facility] 02-06-2013 pneumococcal polysaccharide vaccine, 23 valent BASILIA MI DO [facility] 04-08-2011 zoster vaccine, live BASILIA MI DO [facility] 07-04-2009 influenza, injectabl e, quadrivalent, preservative free Dr. Rosalind Rubalcava Work Phone: [facility] 08-16-2002 pneumococcal polysaccharide vaccine, [address] Rosalind Rubalcava Work Phone: [facility] Payers Date Payer Category Payer Self-pay [id number] 2016 Unknown [id number] 2014 Unknown [id number] 1942 Unknown [id number] 2.16.8 40.1.602997.3.579.2.278 1942 Unknown [id number] 2.16.8 40.1.480242.3.579.2.278 1942 Unknown [id number] 2.16.8 40.1.820351.3.579.2.278 1942 Unknown [id number] 2.16.8 40.1.326455.3.579.2.278 1942 Unknown [id number] 2.16.8 40.1.265797.3.579.2.278 1942 Unknown [id number] 2.16.8 40.1.390426.3.579.2.278 1942 Unknown [id number] 2.16.8 40.1.345845.3.579.2.278 1942 Unknown [id number] 2.16.8 40.1.011468.3.579.2.278 1942 Unknown [id number] 2.16.8 40.1.370869.3.579.2.278 1942 Unknown [id number] 2.16.8 40.1.309433.3.579.2.278 1942 Unknown [id number] 2.16.8 40.1.756087.3.579.2.278 1942 Unknown [id number] 2.16.8 40.1.351623.3.579.2.278 1942 Unknown [id number] 2.16.8 40.1.635092.3.579.2.278 1942 Unknown [id number] 2.16.8 40.1.519646.3.579.2.278 1942 Unknown [id number] 2.16.8 40.1.888044.3.579.2.278 1942 Unknown [id number] 2.16.8 40.1.843078.3.579.2.278 1942 Unknown [id number] 2.16.8 40.1.368857.3.579.2.278 1942 Unknown [id number] 2.16.8 40.1.429640.3.579.2.278 1942 Unknown [id number] 2.16.8 40.1.444814.3.579.2.627 1942 Unknown [id number] 2.16.8 40.1.032635.3.579.2.627 1942 Unknown [id number] 2.16.8 40.1.172145.3.579.2.627 1942 Unknown [id number] 2.16.8 40.1.188716.3.579.2.627 1942 Unknown [id number] 2.16.8 40.1.964094.3.579.2.627 1942 Unknown [id number] 2.16.8 40.1.438260.3.579.2.627 1942 Unknown [id number] 2.16.8 40.1.140746.3.579.2.627 Unknown [id number] 2.16.8 40.1.052684.3.579.2.462 Unknown [id number] 2.16.8 40.1.038895.3.579.2.462 Unknown [id number] 2.16.8 40.1.561046.3.579.2.462 Unknown [id number] 2.16.8 40.1.578222.3.579.2.462 Unknown [id number] 2.16.8 40.1.399056.3.579.2.462 Unknown [id number] 2.16.8 40.1.743623.3.579.2.462 Unknown [id number] 2.16.8 40.1.314139.3.579.2.462 Unknown [id number] 2.16.8 40.1.798506.3.579.2.462 Unknown [id number] 2.16.8 40.1.802691.3.579.2.462 Unknown [id number] 2.16.8 40.1.261131.3.579.2.462 Unknown [id number] 2.16.8 40.1.690052.3.579.2.462 Unknown [id number] 2.16.8 40.1.226124.3.579.2.462 Unknown [id number] 2.16.8 40.1.981458.3.579.2.462 Unknown [id number] 2.16.8 40.1.094191.3.579.2.462 Unknown [id number] 2.16.8 40.1.738338.3.579.2.462 Unknown [id number] 2.16.8 40.1.184896.3.579.2.462 Unknown [id number] 2.16.8 40.1.828776.3.579.2.462 Unknown [id number] 2.16.8 40.1.750840.3.579.2.462 Unknown [id number] 2.16.8 40.1.091943.3.579.2.462 Unknown [id number] 2.16.8 40.1.955765.3.579.2.462 Unknown [id number] 2.16.8 40.1.601960.3.579.2.462 Unknown [id number] 2.16.8 40.1.169971.3.579.2.462 Unknown [id number] 2.16.8 40.1.040263.3.579.2.462 Unknown [id number] 2.16.8 40.1.897150.3.579.2.462 Unknown [id number] 2.16.8 40.1.570458.3.579.2.462 Unknown [id number] 2.16.8 40.1.668329.3.579.2.462 Unknown [id number] 2.16.8 40.1.020725.3.579.2.462 Unknown [id number] 2.16.8 40.1.752397.3.579.2.462 Unknown [id number] 2.16.8 40.1.226833.3.579.2.462 Unknown [id number] 2.16.8 40.1.319395.3.579.2.462 Unknown [id number] 2.16.8 40.1.286428.3.579.2.462 Unknown [id number] 2.16.8 40.1.042789.3.579.2.462 Unknown [id number] 2.16.8 40.1.505655.3.579.2.462 Unknown [id number] 2.16.8 40.1.785135.3.579.2.462 Unknown [id number] 2.16.8 40.1.819977.3.579.2.462 Unknown [id number] 2.16.8 40.1.019916.3.579.2.462 Unknown [id number] 2.16.8 40.1.441111.3.579.2.462 Unknown [id number] 2.16.8 40.1.893601.3.579.2.462 Unknown [id number] 2.16.8 40.1.951302.3.579.2.462 Unknown [id number] 2.16.8 40.1.382941.3.579.2.462 Unknown [id number] 2.16.8 40.1.217988.3.579.2.462 Unknown [id number] 2.16.8 40.1.459232.3.579.2.462 Unknown [id number] 2.16.8 40.1.855076.3.579.2.462 Unknown [id number] 2.16.8 40.1.453381.3.579.2.462 Social History Date Type Detail Facility Start: 06-17-2021 End: 07-17-2024 Tobacco smoking status NVIS Former smoker [facility] Comment on above: Tobacco/Smoke Exposu re: none Start: 08-19-2017 End: 06-17-2021 Tobacco use and exposure Never used [facility] Start: 06-17-2021 End: 04-06-2022 Alcohol intake Current non-drinker of alcohol (finding) [facility] Start: 1940 Sex Assigned At Not on file [facility] Exposure to SARS-CoV-2 (event) Not sure [facility] Start: 04-13-2019 Never smoked t obacco (finding) [facility] Comment on above: Tobacco/Smoke Exposu re: none Start: 1940 Sex Assigned At Female [facility] Start: 05-13-2023 End: 11-20-2023 Tobacco smoking status NHIS Unknown if ever smoked [facility] Start: 01-19-2021 None [facility] Start: 01-19-2021 Alone [facility] Start: 09-14-2017 Non-smoker [facility] Start: 01-02-2025 End: 01-09-2025 Sex Female (finding) [facility] NEGATED: Highlighted row [facility] Medical Equipment Procedure Code Equipment Code Equipment [...] (endoscopic retrograde cholangiopancreatog jose) FDA Start: 05-13-2023 Start: 03-17-2017 Comment on above: twice daily. USE DIRECTED. twice daily. BD UF MINI PEN NEEDLE [id number] Start: 02-04-[address] Strips Start: 04-09-2020 Lancets Start: 11-16-2019 BD UF MINI PEN NEEDLE [id number] Start: 02-04-[address] Strips Start: 04-09-2020 Lancets Start: 11-16-2019 BD UF MINI PEN NEEDLE [id number], See Instructions, USE DIRECTED TWICE A DAY, # 100 syringe, 11 Refill(s), Pharmacy: [id number], 158.75, cm, 12/13/19 11:28:00 EDT, Height, 89.6, kg, 12/13/19 11:28:00 EDT, Dosing Weight Start: 02-04-2020 See Instructions , 3 bottle of 100, testing once daily, 90 day supply DX: E11.9, # 300 EA, 3 Refill(s), [id number], Diabetes, 158, cm, 04/09/20 16:02:00 EDT, Height, 90.8, kg, 04/09/20 16:02:00 EDT, Dosing Weight Start: 04-09-2020 See Instructions , Micro Thin lancets 33G use as directed once daily box of 100 DX E11.09, # 1 EA, 11 Refill(s), [id number], 158, cm, 11/14/19 13:17:00 EST, Height, 88.8, kg, 11/14/19 13:17:00 EST, Dosing Weight Start: 11-16-2019 See Instructions , qs for 1 month supply, BD UF mini pen needles [id number], DX: E11.9, # 1 EA, 11 Refill(s), [id number], 157.5, cm, 11/04/20 13:17:00 EST, Height, 90.7, kg, 11/04/20 13:17:00 EST, Dosing Weight Start: 11-04-2020 BD UF MINI PEN NEEDLE [id number], See Instructions, USE DIRECTED TWICE A DAY, # 100 syringe, 11 Refill(s), Pharmacy: [facility]ORE [id number], 158.75, cm, 12/13/19 11:28:00 EDT, Height, 89.6, kg, 12/13/19 11:28:00 EDT, Dosing Weight Start: 02-04-2020 See Instructions , 3 bottle of 100, testing once daily, 90 day supply DX: E11.9, # 300 EA, 3 Refill(s), [facility], Diabetes, 158, cm, 04/09/20 16:02:00 EDT, Height, 90.8, kg, 04/09/20 16:02:00 EDT, Dosing Weight Start: 04-09-2020 See Instructions , Micro Thin lancets 33G use as directed once daily box of 100 DX E11.09, # 1 EA, 11 Refill(s), [facility], 158, cm, 11/14/19 13:17:00 EST, Height, 88.8, kg, 11/14/19 13:17:00 EST, Dosing Weight Start: 11-16-2019 See Instructions , qs for 1 month supply, BD UF mini pen needles [id number], DX: E11.9, # 1 EA, 11 Refill(s), [facility], 157.5, cm, 11/04/20 13:17:00 EST, Height, 90.7, kg, 11/04/20 13:17:00 EST, Dosing Weight Start: 11-04-2020 BD UF MINI PEN NEEDLE [id number], See Instructions, USE DIRECTED TWICE A DAY, # 100 syringe, 11 Refill(s), Pharmacy: [facility], 158.75, cm, 12/13/19 11:28:00 EDT, Height, 89.6, kg, 12/13/19 11:28:00 EDT, Dosing Weight Start: 02-04-2020 See Instructions , 3 bottle of 100, testing once daily, 90 day supply DX: E11.9, # 300 EA, 3 Refill(s), [facility], Diabetes, 158, cm, 04/09/20 16:02:00 EDT, Height, 90.8, kg, 04/09/20 16:02:00 EDT, Dosing Weight Start: 04-09-2020 See Instructions , Micro Thin lancets 33G use as directed once daily box of 100 DX E11.09, # 1 EA, 11 Refill(s), Pharmacy: [facility] #[facility], 158, cm, 11/14/19 13:17:00 EST, Height, 88.8, kg, 11/14/19 13:17:00 EST, Dosing Weight Start: 11-16-2019 See Instructions , qs for 1 month supply, BD UF mini pen needles [id number], DX: E11.9, # 1 EA, 11 Refill(s), [facility], 157, cm, 04/07/22 10:54:00 EDT, Height, 86.3, kg, 04/07/22 10:54:00 EDT, Dosing Weight Start: 04-14-2022 BD UF MINI PEN NEEDLE [id number], See Instructions, USE DIRECTED TWICE A DAY, # 100 syringe, 11 Refill(s), Pharmacy: [facility] [address], 158.75, cm, 12/13/19 11:28:00 EDT, Height, 89.6, [...] month supply, BD UF mini pen needles [id number], DX: E11.9, # 1 EA, 11 Refill(s), Pharmacy: [facility], 157, cm, 04/07/22 10:54:00 EDT, Height, 86.3, kg, 04/07/22 10:54:00 EDT, Dosing Weight Start: 04-14-2022 BD UF MINI PEN NEEDLE [id number], See Instructions, USE DIRECTED TWICE A DAY, # 100 syringe, 11 Refill(s), Pharmacy: [facility], 158.75, cm, 12/13/19 11:28:00 EDT, Height, 89.6, [...] month supply, BD UF mini pen needles [id number], DX: E11.9, # 1 EA, 11 Refill(s), Pharm[facility]: [facility], 157, cm, 04/07/22 10:54:00 EDT, Height, 86.3, kg, 04/07/22 10:54:00 EDT, Dosing Weight Start: 04-14-2022 BLADDER STIMULATOR FDA Start: BLADDER STIMULATOR FDA Start: BD UF MINI PEN NEEDLE [id number], See Instructions, USE DIRECTED TWICE A DAY, # 100 syringe, 11 Refill(s), Pharmacy: [facility]68, 158.75, cm, 12/13/19 11:28:00 EDT, Height, 89.6, [...] month supply, BD UF mini pen needles [id number], DX: E11.9, # 1 EA, 11 Refill(s), Pharmacy: [place] [address], 155, cm, 06/16/23 13:11:00 EDT, Height, 85.5, kg, 06/16/23 12:56:00 EDT, Dosing Weight Start: 07-12-2023 FDA Start: FDA Start: BD UF MINI PEN NEEDLE [id number], See Instructions, USE DIRECTED TWICE A DAY, # 100 syringe, 11 Refill(s), Pharmacy: [facility] STORE 72483, 158.75, cm, 12/13/19 11:28:00 EDT, Height, 89.6, [...] month supply, BD UF mini pen needles [id number], DX: E11.9, # 1 EA, 11 Refill(s), Pharmacy: [facility] [address], 155, cm, 06/16/23 13:11:00 EDT, Height, 85.5, kg, 06/16/23 12:56:00 EDT, Dosing Weight Start: 07-12-2023 BLADDER STIMULATOR FDA Start: BLADDER STIMULATOR FDA Start: BLADDER STIMULATOR FDA Start: BLADDER STIMULATOR FDA Start: BLADDER STIMULATOR FDA Start: BD UF MINI PEN NEEDLE [id number], See Instructions, USE DIRECTED TWICE A DAY, # 100 syringe, 11 Refill(s), Pharmacy: [facility] STORE 99546, 158.75, cm, 12/13/19 11:28:00 EDT, Height, 89.6, kg, 12/13/19 11:28:00 EDT, Dosing Weight Start: 02-04-2020 See Instructions , 3 bottle of 100, testing once daily, 90 day supply DX: E11.9, # 300 EA, 3 Refill(s), Pharmacy: [facility] #30, Diabetes, 154, cm, 08/31/23 11:39:00 EST, Height, 81, kg, 08/31/23 11:39:00 EST, Dosing Weight Start: 10-14-2023 See Instructions , Micro Thin lancets 33G use as directed once daily box of 100 DX E11.09, # 1 EA, 11 Refill(s), Pharmacy: [facility] #30, 154, cm, 08/31/23 11:39:00 EST, Height, 81, kg, 08/31/23 11:39:00 EST, Dosing Weight Start: 10-14-2023 See Instructions , qs for 1 month supply, BD UF mini pen needles [id number], DX: E11.9, # 1 EA, 11 Refill(s), Pharmacy: [facility] [address], 154, cm, 08/31/23 11:39:00 EST, Height, 81, kg, 08/31/23 11:39:00 EST, Dosing Weight Start: 10-13-2023 BLADDER STIMULATOR FDA Start: BLADDER STIMULATOR FDA Start: BLADDER STIMULATOR FDA Start: BLADDER STIMULATOR FDA Start: BLADDER STIMULATOR FDA Start: BLADDER STIMULATOR FDA Start: FDA Start: Goals Date Patient Goal Desired Activity /State Functional Status Date Assessment Result Facility 08-15-2023 Functional status Bathroom Privilege [facility] Work Phone: 06-10-2023 Functional status Chair [facility] Work Phone: 06-10-2023 Functional status Fair [facility] Work Phone: 05-17-2023 Functional status Ambulates [facility] Work Phone: Mental Status Date Assessment Result Facility 08-14-2023 Cognitive function Voice/Name [facility] Work Phone: 08-14-2023 Cognitive function Awake;Alert;A ppropriate;Fol lows Commands [facility] Work Phone: 06-10-2023 Cognitive function Voice/Name [facility] Work Phone: 06-03-2023 Cognitive function Appropriate;Cooperativ e [facility] Work Phone: 05-17-2023 Cognitive function Voice/Name [facility] Work Phone: Clinical Notes 06-17-2021 to 07-19-2024 Note Date & Type Note Facility 07-19-2024 Note [facility] Medical Records Department [address] [place] [address] History Physical Exam 07/19/24 1004 MR#: [id number] Acct: [id number] Name: LUIZA GALO Rep #: [id number] : 1940 83 From: Doe Friend DO PCP: Dr. Rosalind Rubalcava MD Status:[facility] Location: [place] [address] History and Physical Date of Admission: 07/19/24 LUIZA GALO, is a 83 F who presents to the office today for follow up. CT abd/pel with contrast 8.08.25 lung scarring; s/p CABG; coronary artery calcification; hepatic steatosis, with abnormal left lobe r/t intrahepatic biliary ductal dilation; s/p cholecystectomy; colonic diverticulosis ERCP 8.08.25 choledocholithiasis, biliary sphincterotomy, balloon extraction; middle MBD dilated; temporary stent placed in CBD. No specimens. HIDA 8.12.23 without acute/chronic finding; no bile leak. abd/pelvis [...] Appearance: average body habitus and well nourished [facility] Head: normal to inspection Ears: hearing grossly [...] once a d (more content not included)... [facility] 04-02-2024 Note [facility] Medical Records Department [address] [place] [address] Discharge Summary 04/02/24 1211 MR#: [id number] Acct: [id number] Name: LUIZA GALO Rep #: [id number] : 1940 83 From: El Best MD PCP: Dr. Rosalind Rubalcava MD Status:ADM BJ Location: [place] [address] Providers Date of Admission: 04/01/24 Date of Discharge: 04/02/24 Primary Care Physician: Dr. 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 [facility] 11-20-2023 Discharge summary Note Date/Time November 20, 2023 8:38pm [facility] Medical Records Department [address] [place] [address] Emergency Department Summary 11/20/23 MR#: [id number] Acct: [id number] Name: RICKYLUIZA L Rep #:[id number] : 1940 83 From: Lesley Lopez MD PCP: Dr. Rosalind Rubalcava MD Status:DEP [...] on hydrocodone for pain without significant improvement. 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 Call [facility] ([phone]) or report to the closest Emergency Room. Call 911 if necessary. 11/21/23 0040 <Electronically signed by Lesley Lopez MD> Cosigner Signature (if applicable): CC: Dr. Rosalind Rubalcava MD ~ Signed [facility] Work Phone: 1(230) 502-102611-13-2023 Progress note Author Cirilo Fine [facility] August 15, 2023 12:13pm Note Date/Time August 15, 2023 8:29am [facility] Medical Records Department [address] [place] [address] Progress Note - Hospitalist 08/15/23 0825 MR#: [id number] Acct: [id number] Name: LUIZA GALO Corrine Rep #:[id number] : 1940 83 From: Cirilo Fine DO PCP: Dr. Rosalind Rubalcava MD Status:ADM BJ Location: [place] [address] Reason for Visit Reason for Visit: Diagnoses [...] 88.1 H, Lymph % (Auto) 7.1 L, [place] % (Auto) 3.7, Eos % (Auto) 0.2, [...] Clarity Clear, Urine pH 6.0, Ur Specific [place] 1.020, Urine Protein 30 H, Urine Glucose [...] % (Auto) 69.3, Lymph % (Auto) 24.2, [place] % (Auto) 4.8, Eos % (Auto) 1.2, [...] Location ID and State: [facility] / [place] , Service support , Physical Exam Const [...] Cosigner Signature (if applicable): CC: ~ Signed [facility] Work Phone: 1(530) 873-569111-12-2023 History and physical note Author Judson Hernandez [facility] August 14, 2023 4:28pm Note Date/Time August 14, 2023 3:02pm [facility] Medical Records Department [address] [place] [address] H&P Exam - Hospitalist 08/14/23 1458 MR#: [id number] Acct: [id number] Name: LUIZA GALO Rep #:[id number] : 1940 83 From: Judson rucker MD PCP: Dr. Rosalind Rubalcava MD Status:ADM BJ [facility] - General General Date of Admission: [...] pain. White count is little bit elevated andshayo was recently treated for UTI with Cipro, UA is unremarkable from an infectious standpoint. She does have a history of C. difficile so if diarrhea continues may need to test. She was given fluids in the ED, renal function stable. 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 Judson Hernandez MD; Dr. Rosalind Rubalcava MD~ Signed [facility] Work Phone: 1(744) 203-587411-12-2023 Discharge summary Author Enrrique Eric [facility] August 14, 2023 4:21pm Note Date/Time August 14, 2023 12:51pm [facility] Medical Records Department [address] [place] [address] Emergency Department Summary 08/14/23 MR#: [id number] Acct: [id number] Name: LUIZA GALO Rep #:[id number] : 1940 83 From: Enrrique Ny PCP: Dr. Rosalind Rubalcava MD Status:ADM BJ Location: [place] [address] HPI History of Present Illness Chief Complaint: [...] chronic pain. Patient has had prescriptions for Roxbury in the past and vitals between constipation and loose stools. Most recently she has had a couple laxatives. 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 Morbid obesity MARIVEL [...] [History Last Taken Unknown] hydrocodone-acetaminophen 5-325mg 5mg-325mg ([place]) 1 tab PO Q8H PRN Pain 1-10 [...] 88.1 H Lymph % (Auto) 7.1 L [place] % (Auto) 3.7 Eos % (Auto) 0.2 [...] Clarity Clear Urine pH 6.0 Ur Specific [place] 1.020 Urine Protein 30 H Urine Glucose [...] Impression: Gastroenteritis, Acute febrile illness Disposition Disposition: [facility] Care [facility] What to do if you have Problems For any increased pain, shortness of breath, bleeding, nausea or vomiting, chestpain, or any unexpected problems, contact your Primary Care Provider. Call [facility] ([phone]) or report to the closest Emergency Room. Call 911 if necessary. 08/14/23 1621 <Electronically signed by Enrrique Eric DO> Cosigner Signature (if applicable): CC: Dr. Rosalind Rubalcava MD ~ Signed [facility] Work Phone: [phone]) 164-526411-08-2023 Note. MICRO - Microbiology PROCEDURE: Urine Culture [*1] SOURCE: Urine, Clean Catch BODY SITE: COLLECTED DATE/TIME: 2023 17:30 EST RECEIVED DATE/TIME: 2023 19:45 EST START DATE/TIME: 2023 19:46 EST FREE TEXT SOURCE: FINAL REPORTS Final Report [] Verified Date/Time/Personnel: 08/10/2023 14:36 EST >100,000 cfu/ml Multiple bacterial morphotypes present. Probable Contamination. Suggest recollection if clinically indicated. Performing Locations *1: This test was performed at: [facility], [address] [place] [address], [address] , [facility] ([place])06-10-2023 Hospital Discharge instructions Additional Instructions Discharge to [facility] 06/10/2023, [facility] PT/OT/[facility] Work Phone: [phone]) 639-457009-08-2023 Discharge summary Author Senthil Ortiz [facility] June 10, 2023 8:09am Note Date/Time June 07, 2023 8:55pm [facility] Medical Records Department [address] [place] [address] Discharge Summary 06/07/232050 MR#: [id number] Acct: [id number] Name: LUIZA GALO Rep #:[id number] : 1940 82 From: Senthil Ortiz MD PCP: Dr. 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 * Debility - PT/OT. * Pain - Tylenol 1000mg q6h prn pain (1-5), [place] 5/325mg 1 tablet Q12H prn pain (6-10). * Bowel - Loperamide 4mg q2h prn. * Adult immunization - Administer pneumonia vaccine, covid19 vaccine, flu vaccine as appropriate. * DVT prophylaxis - on Eliquis. 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 * Hypertension - Metoprolol succinate 25mg daily, Losartan 100mg daily, Amlodipine 5mg daily. * Atrial fibrillation - Metoprolol succinate 25mg daily, Eliquis 5mg bid. * Hyperlipidemia - Atorvastatin 40mg qhs. * Depression - Lexapro 10mg daily, Topamax 50mg bid, stable chronic terminal operations manager use, GDR not recommended. * Edema - [...] Insomnia - Trazodone 300mg qhs, stable chronic terminal operations manager use, GDR not recommended. * Vitamin D [...] Q4H PRN pain 05/19/22 hydrocodone-acetaminophen 5-325mg 5mg-325mg ([place]) 1 tab PO Q12H PRN Pain 1-10 [...] rehabilitation, strengthening, prior to discharge home to [facility]. Discharge to [facility] 06/10/2023, [facility] PT/OT/ST. Physical Exam Const [...] and Uncontrolled pain Additional Instructions: Discharge to [facility] 06/10/2023, [facility] PT/OT/ST. Please Follow Up With: Friend,Doe, DO When: As scheduled. Meaningful Use Info Meaningful Use Diagnoses (Choose all that apply): None applicable Discharge Plan Admission Admit Date/Time: 05/17/23 18:15 Primary Reason for Your Visit: Debility. Attending Provider: Senthil Ortiz Chi Primary Care Provider: Rosalind Rubalcava Instructions Additional Instructions / Restrictions: Discharge to [facility] 06/10/2023, [facility] PT/OT/ST. Discharge Orders/Prescriptions Prescriptions: New metoprolol succinate 50 mg Tablet Extended Release 24 Hr 50 mg PO DAILY 30 Days Qty: 30 0RF Continued alprazolam 0.5 mg tablet 0.5 mg PO 4X/DAY montelukast 10 mg tablet 10 mg PO DAILY hydrocodone-acetaminophen [[place]] 5-325 mg tablet 1 tab PO Q12H [...] on 06/10/23 at 0809 Addendum Discharge to [facility] 06/10/2023, [facility] Care PT/OT/ST. 06/10/23 0809<Electronically signed by Senthil Ortiz MD> Cosigner Signature (if applicable): cc: Dr. Rosalind Rubalcava MD; Dr. Senthil Ortiz MD ~* Signed [facility] Work Phone: 1(235) 270-253809-08-2023 Discharge summary Author Senthil Ortiz [facility] June 10, 2023 8:09am Note Date/Time June 07, 2023 9:05pm [facility] Medical Records Department [address] [place] [address] Transfer to [facility] MR#: [id number] Acct: [id number] Name: LUIZA GALO Rep #:[id number] : 1940 82 From: Senthil Ortiz MD PCP: Dr. Rosalind Rubalcava MD Status:ADM IN Certification of patient admission REQUIRED AT TIME OF ADMISSION. I CERTIFY THAT POST-HOSPITAL ECF SERVICES ARE REQUIRED TO BE GIVEN ON AN IN-PATIENT BASIS BECAUSE OF THE ABOVE NAMED PATIENT'S NEED FOR [facility] CARE ON A CONTINUING BASIS FOR THE CONDITION(S) FOR WHICH HE/SHE WAS RECEIVING IN-PATIENT HOSPITAL SERVICES PRIOR TO HIS/HER TRANSFER TO THE F. 06/07/232104<Electronically signed by Senthil Ortiz MD> Diet [...] Code(s): I25.10 - Atherosclerotic heart disease of osage coronary artery without angina pectoris (12) Hyperlipidemia: [...] rehabilitation, strengthening, prior to discharge home to [facility]. * Debility - PT/OT. * Pain - Tylenol 1000mg q6h prn pain (1-5), [place] 5/325mg 1 tablet Q12H prn pain (6-10). * Bowel - Loperamide 4mg q2h prn. * Adult immunization - Administer pneumonia vaccine, covid19 vaccine, flu vaccine as appropriate. * DVT prophylaxis - on Eliquis. 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 * Hypertension - Metoprolol succinate 25mg daily, Losartan 100mg daily, Amlod ipine 5mg daily. * Atrial fibrillation - Metoprolol succinate 25mg daily, Eliquis 5mg bid. * Hyperlipidemia - Atorvastatin 40mg qhs. * Depression - Lexapro 10mg daily, Topamax 50mg bid, stable chronic half-way use, GDR not recommended. * Edema - [...] Insomnia - Trazodone 300mg qhs, stable chronic terminal operations manager use, GDR not recommended. * Vitamin D [...] Than 30 Days Type of Care Needed: Senior Living/Assisted Living Rehab Potential: Fair Prognosis: Fair Additional Orders/Day of Discharge Day of Discharge: 06/10/23 Dietary and Speech Recommendations Dietitian Recommendations/Changes: Will liberalize diet to Regular w/ small portions d/t variable po intake Rec appetite stimulant to help encourage increased po intake at meals Follow Up Care Please Follow Up With: FriendDoe DO When: 6-8 weeks Discharge Plan Admission Admit Date/Time: 05/17/23 18:15 Primary Reason for Your Visit: Debility. Attending Provider: Senthil Ortiz Chi Primary Care Provider: Rosalind uRbalcava Instructions Additional Instructions / Restrictions: Discharge to [facility] 06/10/2023, [facility] PT/OT/ST. 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 Rosalind Rubalcava MD ~ ADDENDUM by Dr. Senthil Ortiz MD on 06/10/23 at 0809 Addendum Discharge to [facility] 06/10/2023, [facility] Care PT/OT/ST. 06/10/23 0809 <Electronically signed by Senthil Ortiz MD> cc: Dr. Rosalind Rubalcava MD ~* Signed [facility] Work Phone: 1(371) 727-173508-30-2023 History and physical note Author Senthil Angel [facility] June 01, 2023 5:41pm Note Date/Time May 17, 2023 7: 14pm [facility] Medical Records Department [address] [place] [address] History & Physical Exam 05/17/231913 MR#: [id number] Acct: [id number] Name: LUIZA GALO Rep #:[id number] : 1940 82 From: Senthil Ortiz MD PCP: Dr. Rosalind Rubalcava MD Status:ADM IN Location: [facility] [id number] HPI - General General Date of Admission: 05/17/23 Date of Service: 05/18/23 Chief Complaint: Here for rehabilitation. HPI Narrative 05/12/2023 LUIZA GALO, is a 82 [facility]. 05/12/2023 EKG sinus rhythm [...] rehabilitation, strengthening, prior to discharge home to [facility] Living. 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 Morbid obesity MARIVEL [...] [History Last Taken Unknown] hydrocodone-acetaminophen 5-325mg 5mg-325mg ([place]) 1 tab PO Q12H PRN Pain 1-10 [...] Diabetes mellitus: QUALIFIERS: Qualified Code(s): 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 * Debility - PT/OT. * Pain - Tylenol 1000mg q6h prn pain (1-5), Roxbury 5/325mg 1 tablet Q12H prn pain (6-10). * Bowel - Loperamide 4mg q2h prn. * Adult immunization - Administer pneumonia vaccine, covid19 vaccine, flu vac cine as appropriate. * DVT prophylaxis - on Eliquis. 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 * Hypertension - Metoprolol succinate 25mg daily, Losartan 100mg daily, Amlodipine 5mg daily. * Atrial fibrillation - Metoprolol succinate 25mg daily, Eliquis 5mg bid. * Hyperlipidemia - Atorvastatin 40mg qhs. * Depression - Lexapro 10mg daily, Topamax 50mg bid, stable chronic half-way use, GDR not recommended. 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 * Vitamin D deficiency - D3 125mcg daily. 05/18/23 0749 <Electronically signed by Senthil Ortiz MD> Cosigner Signature (if applicable): CC: Dr. Rosalind Rubalcava MD; Dr. Senthil Ortiz MD~ Signed ADDENDUM by Dr. Senthil Ortiz MD on 06/01/23 at 1741 Addendum Appetite loss - Rx Mirtazapine 7.5mg qhs. 06/01/23 174<Electronically signed by Senthil Ortiz MD> Cosigner Signature (if applicable): cc: Dr. Rosalind Rubalcava MD; Dr. Senthil Ortiz MD ~* Signed [facility] Work Phone: 1(400) 259-831208-16-2023 Progress note Author [facility] May 18, 2023 5:22pm Note Date/Time May 18, 2023 3: 14pm [facility] Medical Records Department [address] [place] [address] Progress Note - Pharmacy 05/18/23 1505 MR#: [id number] Acct: [id number] Name: LUIZA GALO Rep #:[id number] : 1940 82 From: Rosie Kitchen PCP: Dr. Rosalind Rubalcava MD Status:ADM IN Location: [place] [address]- Documented by User: Rosie Kitchen 05/18/23 15:29 [...] mls @ 15 mls/hr 05/17/23 18:56 IV .[id number] PRN Additional IVPB Infusion Sodium Chloride 250 mls @ 15 mls/hr 05/17/23 18:56 IV .[id number] PRN Saline Flush Insulin Glargine 40 unit [...] (hip pain 05/12; requested Tylenol instead of Roxbury), and no doses of PRN Roxbury. Continue to monitor pain and for PRN [...] Continue to monitor for peripheral neuropathy and PAINTER AIRBRUSH effects (Black Box Warning), tendon pain (black [...] GDR. Continue to monitor for s/s of PAINTER AIRBRUSH effects (Beer?s Criteria) and respiratory depression, especially if the resident uses PRN doses of Roxbury (Black Box Warning), falls/fractures (BEERs medication) and [...] by Senthil Ortiz MD> CC: ~ Signed [facility] Work Phone: 1(847) 302-446708-15-2023 Discharge summary Author Alee Yao [facility] May 17, 2023 4:23pm Note Date/Time May 17, 2023 2: 44pm [facility] Medical Records Department [address] [place] [address] Discharge Summary 05/17/23 1443 MR#: [id number] Acct: [id number] Name: LUIZA GALO Rep #:[id number] : 1940 82 From: Alee Yao DO PCP: Dr. Rosalind Rubalcava MD Status:ADM IN Location: [place] [address] Providers Date of Admission: 05/13/23 Primary Care Physician: Dr. Rosalind Rubalcava MD Consultations 05/13/23 01:59 Consult: Gastroenterology Routine Consulting Provider: [facility] Reason for Consult: Elevated Bili/LFT, N/V, [...] Immunodeficiency due to drugs; Z79.899 - Other half-way (current) drug therapy (7) Hypotension: Status: Acute [...] Q4H PRN pain 05/19/22 hydrocodone-acetaminophen 5-325mg 5mg-325mg (Roxbury) 1 tab PO Q12H PRN Pain 1-10 [...] who presented to the emergency department at [facility] late in the evening on 05/12/2023 with [...] Final D/C Instructions Please Follow Up With: Doe Orr, DO Meaningful Use Info Meaningful Use Diagnoses [...] mg tablet 10 mg PO DAILY hydrocodone-acetaminophen [Roxbury] 5-325 mg tablet 1 tab PO Q12H [...] Tremfya 100 mg/mL auto-injector 100 mg subcut .[id number] Referrals / Follow Up: Doe Orr DO [Med Staff - Active Staff] - See Referral Note (1-2 mos) Rosalind Rubalcava MD [Primary Care Provider] - Within 1 Month Disposition Disposition (needs filled in before D/C Order can be placed): [facility] Facility Charges/Coding Visit Charges Inpatient E&M: 00423 SNF Disch >30 Min 05/17/233 <Electronically signed by Alee Yao DO> Cosigner Signature (if applicable): CC: Dr. Alee Yao DO; Dr. Rosalind Rubalcava MD; Doe Orr DO~ Signed [facility] Work Phone: 1(509) 682-420608-15-2023 Discharge summary Author Alee Yao [facility] May 17, 2023 2:43pm Note Date/Time May 17, 2023 2: 43pm [facility] Medical Records Department [address] [place] [address] [place] [address] Transfer to Extended Care MR#: [id number] Acct: [id number] Name: LUIZA GALO Rep #:[id number] : 1940 82 From: Alee Yao DO PCP: Dr. Rosalind Rubalcava MD Status:ADM IN Certification of patient admission REQUIRED AT TIME OF ADMISSION. I CERTIFY THAT POST-HOSPITAL ECF SERVICES ARE REQUIRED TO BE GIVEN ON AN IN-PATIENT BASIS BECAUSE OF THE ABOVE NAMED PATIENT'S NEED FOR [facility] CARE ON A CONTINUING BASIS FOR THE CONDITION(S) FOR WHICH HE/SHE WAS RECEIVING IN-PATIENT HOSPITAL SERVICES PRIOR TO HIS/HER TRANSFER TO THE F. 05/17/23 1443<Electronically signed by Alee Yao DO> [...] Immunodeficiency due to drugs; Z79.899 - Other half-way (current) drug therapy (7) Hypotension: Status: Acute Code(s): I95.9 - Hypotension, unspecified Allergies/Procedures Done in Hospital Allergies insulin isophane (NPH) Allergy (Severe, Verified 05/12/23 20:52) heart burn Anesthetics - Amide Type - Select A Allergy (Verified 05/12/23 20:52) NEEDS FOLLOW-UP Anesthetics - Tyar Type- Parabens Allergy (Verified 05/12/23 20:52) NEEDS [...] mg tablet 10 mg PO DAILY hydrocodone-acetaminophen [Roxbury] 5-325 mg tablet 1 tab PO Q12H [...] Tremfya 100 mg/mL auto-injector 100 mg subcut .[id number] metoprolol succinate 50 mg tablet extended release [...] Dr. Octavia Gruber MD; Dr. Rosalind Rubalcava MD ~ [facility] Work Phone: 1(843) 371-437108-14-2023 Progress note Author Alee Yao [facility] May 16, 2023 3:31pm Note Date/Time May 16, 2023 3: 20pm [facility] Medical Records Department [address] [place] [address] Progress Note - Hospitalist 05/16/23 1512 MR#: [id number] Acct: [id number] Name: LUIZA GALO Rep #:[id number] : 1940 82 From: Alee Yao DO PCP: Dr. Rosalind Rubalcava MD Status:ADM IN Location: [place]3 JV229-3 Reason for Visit Reason for Visit: Fever/nausea/vomiting/confusion [...] 05/15/23 05/16/23 23:59 23:59 23:59 Intake Total 1969 / 1969 1390 / 1390 660 / 660 Output [...] % (Auto) 51.4, Lymph % (Auto) 39.1, [place] % (Auto) 5.8, Eos % (Auto) 2.6, [...] from insurance Charges/Coding Visit Charges Inpatient E&M: 03841 Subs Hosp L2 05/16/23 1531 <Electronically signed by Alee Yao DO> Cosigner Signature (if applicable): CC: ~ Signed [facility] Work Phone: 1(349) 921-998708-13-2023 Progress note Author Alee Yao [facility] May 15, 2023 1:25pm Note Date/Time May 15, 2023 1: 25pm [facility] Medical Records Department [address] [place] [address] Progress Note - Hospitalist 05/15/23 1316 MR#: [id number] Acct: [id number] Name: LUIZA GALO Rep #:[id number] : 1940 82 From: Alee Yao DO PCP: Dr. Rosalind Rubalcava MD Status:ADM IN Location: MS3 JR828-3 Reason for Visit Reason for Visit: Fever/nausea/vomiting/confusion [...] from insurance Charges/Coding Visit Charges Inpatient E&M: 42643 Subs Hosp L2 05/15/23 1325 <Electronically signed by Alee Yao DO> Cosigner Signature (if applicable): CC: ~ Signed [facility] Work Phone: 1(428) 572-521108-12-2023 Progress note Author Alee Yao [facility] May 14, 2023 12:25pm Note Date/Time May 14, 2023 12 :25pm [facility] Medical Records Department [address] [place] [address] Progress Note - Hospitalist 05/14/23 1215 MR#: [id number] Acct: [id number] Name: LUIZA GALO Rep #:[id number] : 1940 82 From: Alee Yao DO PCP: Dr. Rosalind Rubalcava MD Status:ADM IN Location: [place]3 VI655-1 Reason for Visit Reason for Visit: Fever/nausea/vomiting/confusion [...] (Auto) 70.2 H, Lymph % (Auto) 21.9, [place] % (Auto) 5.7, Eos % (Auto) 1.3, [...] no intubation Charges/Coding Visit Charges Inpatient E&M: 23199 Subs Hosp L2 05/14/23 1225 <Electronically signed by Alee Yao DO> Cosigner Signature (if applicable): CC: ~ Signed [facility] Work Phone: 1(281) 471-246108-12-2023 Progress note Author Doe Orr [facility] May 14, 2023 9:35am Note Date/Time May 14, 2023 9: 30am [facility] Medical Records Department [address] [place] [address] Progress Note - GI 05/14/23 0928 MR#: [id number] Acct: [id number] Name: LUIZA GALO Rep #:[id number] : 1940 82 From: Doe Orr DO PCP: Dr. Rosalind Rubalcava MD Status:ADM IN Location: [place] [address]-1 Subjective Subjective Patient underwent ERCP yesterday for [...] (Auto) 70.2 H, Lymph % (Auto) 21.9, [place] % (Auto) 5.7, Eos % (Auto) 1.3, [...] Plan 82 y/o who presents to the [facility] ED on 05/12/23 with history of onset [...] Treatment for bile leak would be 10 Egyptian stent across the ampulla. She has isalready in place. We will order a HIDA scan to see if she has any radiologic evidence of bile leak. Recommend to continue antibiotic therapy for total of 7 days. Charges/Coding Visit Charges Inpatient E&M: 91231 Subs Hosp L3 05/14/23 0935 <Electronically signed by Doe Orr DO> Cosigner Signature (if applicable): CC: ~ Signed [facility] Work Phone: 1(646) 972-184108-11-2023 Consult note Author Doe Orr [facility] May 13, 2023 4:32pm Note Date/Time May 13, 2023 4: 26pm [facility] Medical Records Department [address] [place] [address] Consultation - GI 05/13/2324 MR#: [id number] Acct: [id number] Name: LUIZA GALO Rep #:[id number] : 1940 82 From: Doe Orr DO PCP: Dr. Rosalind Rubalcava MD Status:ADM IN Location: [place]3 CW294-3 HPI Consult Data Date of Consult: 05/12/23 [...] and hypertension superimposed on diabetes mellitusand MARIVEL. [facility] Medical History Anxiety and depression Atherosclerosis of coronary artery of osage heart without angina pectoris Bradycardia Diabetes mellitus Dysphagia Essential hypertension Former tobacco use GERD (gastroesophageal reflux disease) History of left heart catheterization (LHC) (~04/20/21) Hyperlipidemia senior care (current) use of anticoagulants Morbid obesity MARIVEL [...] [History Last Taken Unknown] hydrocodone-acetaminophen 5-325mg 5mg-325mg (Roxbury) 1 tab PO Q12H PRN Pain 1-10 Or Fever 05/19/22 [History Last Taken Unknown] insulin degludec 200 unit/mL (3 mL) subcutaneous pen 40 unit subcut QHS tybjcxin00/17/22 [History Last Taken Unknown] ropinirole 1 mg [...] mg/mL subcutaneous auto-injector (Tremfya) 100 mg subcut .f7wiehqjcqyrdljh 05/12/23 [History Last Taken Unknown] tizanidine 4 [...] 82.1 H, Lymph % (Auto) 10.1 L, [place] % (Auto) 6.4, Eos % (Auto) 0.3, [...] Clarity Clear, Urine pH 7.0, Ur Specific [place] 1.010, Urine Protein 15 H, Urine Glucose [...] 77.1 H, Lymph % (Auto) 15.5 L, [place] % (Auto) 6.5, Eos % (Auto) 0.2, [...] an 82 y/o who presents to the [facility] ED on 05/12/23 with history of onset [...] antibiotic therapy. Charges/Coding Visit Charges Inpatient E&M: 42655 Init Hosp L3 05/13/23 1632 <Electronically signed by Doe Friend DO> Cosigner Signature (if applicable): CC: Dr. Octavia Gruber MD; Dr. Rosalind Rubalcava MD~ Signed [facility] Work Phone: [phone]) 837-300508-11-[address] [facility] 05-13-[address] [facility]08-11-2023 Consult note Author Alee Yao [facility] May 13, 2023 10:51am Note Date/Time May 13, 2023 10 :05am [facility] Medical Records Department [address] [place] [address] Pharmacokinetic/Renal -Consult 05/13/23 1004 MR#: [id number] Acct: [id number] Name: LUIZA GALO Rep #:[id number] : 1940 82 From: Dany Hairston PCP: Dr. Rosalind Rubalcava MD Status:ADM IN Location: [place] [address] Consult Antibiotic Management Pharmacy has been consulted [...] Date Alee Yao DO CC: ~ Signed [facility] Work Phone: [phone]) 262-678308-11-2023 Progress note Author Alee Yao [facility] May 13, 2023 7:49am Note Date/Time May 13, 2023 7: 21am [facility] Medical Records Department [address] [place] [address] [place] [address] Progress Note - Hospitalist 05/13/2309 MR#: [id number] Acct: [id number] Name: LUIZA GALO Rep #:[id number] : 1940 82 From: Alee Yao DO PCP: Dr. Rosalind Rubalcava MD Status:ADM IN [place] [facility] EZ[facility]82-7 Reason for Visit Reason for Visit: Fever/nausea vomiting/confusion Subjective Subjective Mrs. Galo is an 82-year-old white female with a complicated past medical history who presented to the emergency department at [facility] late last evening on 05/12/2023 with fevers [...] 82.1 H, Lymph % (Auto) 10.1 L, [place] % (Auto) 6.4, Eos % (Auto) 0.3, [...] Clarity Clear, Urine pH 7.0, Ur Specific [place] 1.010, Urine Protein 15 H, Urine Glucose [...] 77.1 H, Lymph % (Auto) 15.5 L, [place] % (Auto) 6.5, Eos % (Auto) 0.2, [...] Cosigner Signature (if applicable): CC: ~ Signed [facility] Work Phone: [phone]) [phone] History and physical note Author Octavia Gruber [facility] May 13, 2023 1:33am Note Date/Time May 13, 2023 12 :51am [facility] Medical Records Department [address] [place] [address] H&P Exam - Hospitalist 05/13/23 0049 MR#: [id number] Acct: [id number] Name: LUIZA GALO Rep #:[id number] : 1940 82 From: Octavia Gruber MD PCP: Dr. Rosalind Rubalcava MD Status:ADM IN Location: [place] [address]-1 HPI - General General Date of Admission: [...] Hx CVA, Obesity who presents to the [facility] ED on 05/12/23 with history of onset [...] and morphine 4 mg IV x 1. 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 Morbid obesity MARIVEL [...] [History Last Taken Unknown] hydrocodone-acetaminophen 5-325mg 5mg-325mg (Roxbury) 1 tab PO Q4H PRN Pain 1-10 [...] 100 mg/mL subcutaneous auto-injector (Tremfya) mg subcut .f7vgjap 05/12/23 [History Last Taken Unknown] tizanidine 4 [...] 82.1 H, Lymph % (Auto) 10.1 L, [place] % (Auto) 6.4, Eos % (Auto) 0.3, [...] Clarity Clear, Urine pH 7.0, Ur Specific [place] 1.010, Urine Protein 15 H, Urine Glucose [...] Signed: Elliot Ziegler MD at 23:27 EDT Reading Location ID and State: [facility] / [place] Tel , Service support , Gallbladder Ultrasound 05/12/23 22:28 IMPRESSION: undefined [...] Hx CVA, Obesity who presents to the [facility] ED on 05/12/23 with history of onset [...] 16 minutes. Charges/Coding Visit Charges Inpatient E&M: 27991 Init Hosp L3 Procedures Hospitalists Procedures: 15362 Advncd Care Plan 30 Min 05/13/23 0133 <Electronically signed by Octavia Gruber MD> Cosigner Signature (if applicable): CC: Dr. Octavia Gruber MD; Dr. Rosalind Rubalcava MD~ Signed [facility] Work Phone: [phone] Discharge summary Author Papo Morillo [facility] May 13, 2023 12:55am Note Date/Time May 12, 2023 10 :09pm [facility] Medical Records Department [address] [place] [address] Emergency Department Summary 05/12/23 MR#: [id number] Acct: [id number] Name: LUIZA GALO Rep #:[id number] : 1940 82 From: Papo Morillo MD [...] symptoms: Yes (Infection) Recent Illness/Hospitalization: No PFSH [facility] Medical History (Updated 05/13/23 @ 00:[address] 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 Negative Alanis sign over Sanborn sign. No septal deviation hematoma. No dental [...] 82.1 H Lymph % (Auto) 10.1 L [place] % (Auto) 6.4 Eos % (Auto) 0.3 [...] Clarity Clear Urine pH 7.0 Ur Specific [place] 1.010 Urine Protein 15 H Urine Glucose [...] IliaPapo Dx/Rx/DC Orders Clinical Impression: Acute encephalopathy, senior care (current) use of anticoagulants, H/O coronary artery bypass surgery, Diabetes mellitus, Essential hypertension, Hyperlipidemia, Jaundice, Fever Prescriptions: No Action aspirin 81 mg tablet,delayed release (DR/EC) 81 mg PO QDAY alprazolam 0.5 mg tablet 0.5 mg PO TID montelukast 10 mg tablet 10 mg PO DAILY hydrocodone-acetaminophen [Roxbury] 5-325 mg tablet 1 tab PO Q4H [...] PO Q8H Tremfya 100 mg/mL auto-injector subcut .n9wifgz atorvastatin 40 mg tablet 40 mg PO [...] your Primary Care Provider. Call [facility] ([phone]) or report to the closest Emergency Room. Call 911 if necessary. 05/13/235 <Electronically signed by Papo Morillo MD> Cosigner Signature (if applicable): CC: Dr. Rosalind Rubalcava MD ~ Signed [facility] Work Phone: [phone]) 779-993507-05-2022 Nurse Note* Maggi Ellington RN - 04/06/2022 [...] mild discomfort is NA documented in this encounterUniversity Hospitals [facility]07-05-2022 NoteHNO ID: [id number] Author: Tejal Rivera MD Service: ? Author [...] Post Procedure Plan Instruction Sheet Given: [facility] History of Present illness Narrative* [...] Sheet Given: Post Cystoscopy documented in this encounterUniversity Hospitals Samar[facility]06-21-2022 Miscellaneous Notes* Telephone Encounter - Amanda Bassett Ma - 03/23/2022 1:58 PM EDT Pt informed orders were placed Amanda Bassett Ma * Telephone Encounter - Tejal Rivera MD - 03/23/2022 12:14 PM EDT Yes, order placed Thank you * Telephone Encounter - Amanda Bassett Ma - 03/23/2022 11:06 AM EDT Luiza Corrine Galo called today. : 1940 Allergies: Januvia [Sitagliptin], Latex, Metformin, and Codeine (cell) Message can be left with: with patient only Reason for call: pt is coming in for Botox 04/06/22 she would like to know if she needs a culture done before her appt. To make sure she doesn't have a UTI. Amanda Bassett Ma documented in this encounterUniversity Hospitals [facility]ar[facility] Center12-01-2021 Nurse Note* Maggi Ellington RN - 09/02/2021 [...] mild discomfort is NA documented in this encounterUniversity Hospitals [facility]ar[facility]12-01-2021 NoteHNO ID: [id number] Author: Tejal Rivera MD Service: ? Author [...] Post Procedure Plan Instruction Sheet Given: [facility]12-01-2021 Procedure note* Tejal Rivera MD [...] Sheet Given: Post Cystoscopy documented in this encounterUniversity Hospitals [facility]ar[facility]11-17-2021 Miscellaneous Notes* Telephone Encounter - Maggi Vega RN - 08/19/2021 3:46 PM EST Patient has an upcoming appointment and wondered if she needed to stop her coumadin- she doesn't, patient informed. Maggi Vega RN documented in this encounterUniversity Hospitals Samar[facility] Center09-15-2021 NoteHNO ID: [id number] Author: Tejal Rivera MD Service: ? Author [...] SYRINGE ULTRA-FINE 1 mL 31 gauge x 15/64" syrg rosuvastatin (CRESTOR) 20 mg tablet Take [...] HISTORY Diagnosis Date - Benzodiazepine dependence, continuous (HCC) - Depression - Diverticulitis - DM type 2 (diabetes mellitus, type 2) (HCC) - Enuresis - RADHA (generalized anxiety disorder) - GERD (gastroesophageal reflux disease) - HTN (hypertension) - (more content not included)...[facility]09-15-2021 History of Present illness Narrative* [...] SYRINGE ULTRA-FINE 1 mL 31 gauge x 15/64" syrg rosuvastatin (CRESTOR) 20 mg tablet Take 20 mg by mouth once daily. traZODone (DESYREL) 100 mg tablet Take 100 mg by mouth daily at bedtime. venlafaxine XR (EFFEXOR XR) 150 mg 24 hr capsule Take 150 mg by mouth once daily. warfarin (COUMADIN) 2 mg tablet TAKE 1 TABLET BY MOUTH 5 DAYS A WEEK - SUN, , TUE, FRID & SAT zolpidem (AMBIEN) 10 mg [...] MEDICAL HISTORY Diagnosis Date Benzodiazepine dependence, continuous (HCC) Depression Diverticulitis DM type 2 (diabetes mellitus, type 2) ([facility]) Enuresis RADHA (generalized anxiety disorder) GERD (gastroesophageal reflux disease) HTN (hypertension) Hyperlipidemia IBS (irritable bowel syndrome) Insomnia Known medical problems c diff LBP (low back pain) OAB (overactive bladder) Obesity Opioid dependence, continuous (HCC) MARIVEL (obstructive sleep apnea) Psoriasis RLS (restless [...] encounter diagnosis) (R35.1) Nocturia documented in this encounterKettering Health Behavioral Medical Centerlt note Author Dany Hairston [facility] August 15, 2023 1:26pm Note Date/Time August 15, 2023 1:26pm [facility] Medical Records Department [address] [place] [address] Counseling Note - Pharmacy 08/15/23 1325 MR#: [id number] Acct: [id number] Name: LUIZA GALO Rep #:[id number] : 1940 83 From: Dany Hairston PCP: Dr. Rosalind Rubalcava MD Status:ADM BJ Y [place] [facility] [place]-1 Pharmacy [facility] Service has performed discharge medication reconciliation [...] was counselled on new medication ondansetron by compounding pharmacy technician Dean. Medications at Discharge Home Medications atorvastatin [...] Q4H PRN pain 05/19/22 hydrocodone-acetaminophen 5-325mg 5mg-325mg (R[place]) 1 tab PO Q12H PRN Pain 1-10 [...] Signature (if applicable): Date CC: ~ Signed [facility] Work Phone: Discharge summary Author Cirilo Fine [facility] August 15, 2023 12:17pm Note Date/Time August 15, 2023 12:14pm [facility] Medical Records Department [address] [place] [address] Discharge Summary 08/15/23 1213 MR#: [id number] Acct: [id number] Name: LUIZA GALO Rep #:[id number] : 1940 83 From: Cirilo Fine DO PCP: Dr. Rosalind Rubalcava MD Status:ADM BJ Location: [place] [address] Providers Date of Admission: 08/14/23 Primary Care [...] make adjustments as necessary ? Continue with Lakeisha, she also has a history of DVT/PE [...] Q4H PRN pain 05/19/22 hydrocodone-acetaminophen 5-325mg 5mg-325mg ([place]) 1 tab PO Q12H PRN Pain 1-10 [...] 88.1 H, Lymph % (Auto) 7.1 L, [place] % (Auto) 3.7, Eos % (Auto) 0.2, [...] Clarity Clear, Urine pH 6.0, Ur Specific [place] 1.020, Urine Protein 30 H, Urine Glucose [...] % (Auto) 69.3, Lymph % (Auto) 24.2, [place] % (Auto) 4.8, Eos % (Auto) 1.2, [...] Location ID and State: [facility] / [place] , Service support , D/C Instructions Discharge [...] You may also benefit from seeing a customer relations consultant as outpatient as well. Discharge Orders/Prescriptions Prescriptions: New ondansetron 8 mg tablet,disintegrating 8 mg PO Q8H PRN (Reason: nausea and vomiting) Qty: 20 0RF Continued alprazolam 0.5 mg tablet 0.5 mg PO 4X/DAY montelukast 10 mg tablet 10 mg PO DAILY hydrocodone-acetaminophen [[place]] 5-325 mg tablet 1 tab PO Q12H [...] .Route .MEDSUPPLY Qty: 1 0RF Hold Instructions: Ordered Rx Instructions: As directed trazodone 150 [...] NH/Intermed Care Charges/Coding Visit Charges Inpatient E&M: 97752 Disch Hosp >30min 08/15/23 1217 <Electronically signed by Cirilo Fine DO> Cosigner Signature (if applicable): CC: Dr. Cirilo Fine DO; Dr. Rosalind Rubalcava MD~ Signed [facility] Work Phone: Evaluation + Plan note Future Appointments Appointment Date:09/24/2021 11:15:00 AM Scheduled Provider:ROSALIND RUBALCAVA MD Location:[facility] Appointment Type: OV Future Scheduled Tests Laboratory* [...] Panel 08/07/21 * Complete Metabolic Panel 11/08/21 [facility] Evaluation + Plan note Future Appointments Appointment Date:11/20/2021 10:45:00 AM Scheduled Provider:ROSALIND RUBALCAVA MD Location:[facility] Appointment Type:PC OV Future Scheduled Tests Laboratory* COVID-19 Only (AO) 03/17/21 * Calcium Level Ionized 08/07/21 * Magnesium Level 08/07/21 * Thyroid Stimulating Hormone 08/07/21 * Free T4 08/07/21 * Urine Culture 09/24/21 * A1C Hemoglobin 08/07/21 * Complete Blood Count 08/07/21 * Free T3 08/07/21 * Complete Metabolic Panel 08/07/21 [facility] Evaluation + Plan note Future Appointments Appointment Date:03/05/2022 02:30:00 PM Scheduled Provider:ROSALIND RUBALCAVA MD Location:[facility] Appointment Type:PC Wellness Primetime Enhanced Appointment Date:04/07/2022 11:00:00 AM Scheduled Provider:ROSALIND RUBALCAVA MD Location:[facility] Appointment Type:PC OV Controlled Medication Future Scheduled Tests Laboratory* Calcium Level Ionized 08/07/21 * Magnesium Level 08/07/21 * Thyroid Stimulating Hormone 08/07/21 * Free T4 08/07/21 * Urine Culture 09/24/21 * A1C Hemoglobin 08/07/21 * Complete Blood Count 08/07/21 * Free T3 08/07/21 * Complete Metabolic Panel 08/07/21 * COVID-19 Only (AO) 03/17/21 [facility] Evaluation + Plan note Future Appointments Appointment Date:04/07/2022 11:00:00 AM Scheduled Provider:ROSALIND RUBALCAVA MD Location:[facility] Appointment Type:PC OV Controlled Medication Diagnostic Tests Pending * Urine Culture 03/24/22 Future Scheduled Tests Laboratory* Calcium Level Ionized 08/07/21 * Magnesium Level 08/07/21 * Thyroid Stimulating Hormone 08/07/21 * Free T4 08/07/21 * Urine Culture 09/24/21 * A1C Hemoglobin 08/07/21 * Complete Blood Count 08/07/21 * Free T3 08/07/21 * Complete Metabolic Panel 08/07/21 [facility] Evaluation + Plan note Future Appointments Appointment Date:05/21/2022 11:00:00 AM Scheduled Provider:ROSALIND RUBALCAVA MD Location:[facility] Appointment Type:PC OV Appointment Date:07/06/2022 11:00:00 AM Scheduled Provider:ROSALIND RUBALCAVA MD Location:[facility] Appointment Type:PC OV Controlled Medication Diagnostic Tests Pending * Vitamin D Level 05/11/22 Future Scheduled Tests Laboratory* Calcium Level Ionized 08/07/21 * Magnesium Level 08/07/21 * Thyroid Stimulating Hormone 08/07/21 * Free T4 08/07/21 * Urine Culture 09/24/21 * A1C Hemoglobin 08/07/21 * Complete Blood Count 08/07/21 * Free T3 08/07/21 * Complete Metabolic Panel 08/07/21 [facility] Evaluation + Plan note Future Appointments Appointment Date:01/07/2023 11:30:00 AM Scheduled Provider:ROSALIND RUBALCAVA MD Location:[facility] Appointment Type:PC OV Future Scheduled Tests Laboratory* Thyroid Stimulating Hormone 11/10/22 * Free T4 11/10/22 * A1C Hemoglobin 05/10/23 * Lipid Profile 05/10/23 * Complete Metabolic Panel 05/10/23 [facility] Evaluation + Plan note Future Appointments Appointment Date:03/11/2023 11:00:00 AM Scheduled Provider:ROSALIND RUBALCAVA MD Location:[facility] Appointment Type:PC OV Controlled Medication Appointment Date:05/13/2023 11:00:00 AM Scheduled Provider:ROSALIND RUBALCAVA MD Location:[facility] Appointment Type:PC OV Future Scheduled Tests Laboratory* Thyroid Stimulating Hormone 11/10/22 * Free T4 11/10/22 * A1C Hemoglobin 05/10/23 * Lipid Profile 05/10/23 * Complete Metabolic Panel 05/10/23 [facility] Evaluation + Plan note Future Appointments Appointment Date:11/15/2023 11:00:00 AM Scheduled Provider:ROSALIND RUBALCAVA MD Location:[facility] Appointment Type:PC OV Follow Up Future Scheduled Tests Laboratory* A1C Hemoglobin 11/09/23 * Complete Blood Count 08/09/23 * Lipid Profile 11/09/23 * Complete Metabolic Panel 11/09/23 Radiology* XR Spine Lumbosacral 2 or 3 Views 08/09/23 * XR Hip 3-4 Views Bilateral 08/09/23 [facility] Evaluation + Plan note Future Appointments Appointment Date:06/06/2024 01:30:00 PM Scheduled Provider:ROSALIND RUBALCAVA MD Location:[facility] Appointment Type:PC Wellness Primetime Enhanced Future Scheduled Tests Laboratory* B-Type Natriuretic Peptide 05/23/24 * Thyroid Stimulating Hormone 06/30/24 * Free T4 03/30/24 * A1C Hemoglobin 06/30/24 * Complete Blood Count 03/30/24 * Complete Blood Count 11/15/23 * Complete Metabolic Panel 06/30/24 Radiology* XR Spine Lumbosacral 2 or 3 Views 08/09/23 * XR Hip 3-4 Views Bilateral 08/09/23 [facility] Evaluation note* Diagnosis Urge incontinence- [facility]- [facility] Diagnosis Urinary tract infection without hematuria, site unspecified- Primary [facility] Diagnosis Urge incontinence- Primary [facility] Diagnosis Onset Date Resolution Status 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 Essential hypertension chron ic Hyperlipidemia chronic Paroxysmal atrial fibrillation chronic Acute encephalopathy acute Elevated serum creatinine ac [place] Fever acute Hypotension acute 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 Jaundice acute Transaminitis acute Diabetes mellitus chronic Essential hypertension chron ic 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, chronic 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 [facility] Work Phone: Evaluation note* Diagnosis Onset Date Resolution Status 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 Paroxysmal atrial [...] chronic Fever resolved Jaundice resolved Transaminitis resolved [facility] Work Phone: Evaluation note* Diagnosis Onset Date Resolution Status 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 Paroxysmal atrial [...] resolved Acute febrile illness acute Gastroenteritis acute [facility] Work Phone: Evaluation note* Diagnosis Onset Date Resolution Status Acute febrile illness resolv ed Gastroenteritis resolved SOB (shortness of breath) [place] 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 Paroxysmal atrial fibrillation chronic [facility] Work Phone: Evaluation note* Diagnosis Onset Date Resolution Status Acute febrile illness resolv ed Gastroenteritis resolved SOB (shortness of breath) [place] 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 Paroxysmal atrial fibrillation chronic Ascending cholangitis acute [facility] Work Phone: Evaluation note* Diagnosis Onset Date Resolution Status SOB (shortness of breath) [place] 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 Paroxysmal atrial fibrillation chronic Ascending cholangitis acute [facility] Work Phone: Evaluation noteNo assessment information available [facility] Work Phone: Hospital course Narrative No data available for this section [facility] Hospital Discharge instructions No data available for this section [facility] Progress note No data available for this section [facility] Reason for referral (narrative)No reason for referral [facility] Summary Purpose Family History No Family History Records Found Relationship Condition Age at Onset Recorded Date/T alison father Coronary artery disease Unknown mother Coronary artery disease Unknown brother Coronary artery disease Unknown Advance Directives No Advanced Directives Records Found Advance Directive Response Recorded Date/ Time Name of Medical Power of Marketing Communication Manager eugene kitchen May 13, 2023 1:54am Advance Directives No January 19 021 7:12am Living Will Yes May 13 1:54am Power of Marketing Communication Manager Yes May 13 023 1:54am Advance Directive Response Recorded Date/ Time Name of Medical Power of Marketing Communication Manager eugene kitchen May 13, 2023 1:54am Name of Medical Power of Marketing Communication Manager Kong Kitchen May 19, 2023 11:23am Advance Directives No January 19 021 7:12am Living Will Yes May 19 11:23am Power of Marketing Communication Manager Yes May 19 023 11:23am Advance Directive Response Recorded Date/ Time Name of Medical Power of Marketing Communication Manager eugene kitchen May 13, 2023 12:54am Name of Medical Power of Marketing Communication Manager Kong Kitchen May 19, 2023 10:23am Name of Medical Power of Marketing Communication Manager mona (son) August 14, 2023 12:14pm Advance Directives No January 19 021 6:12am Living Will Yes August 14 12:14pm Power of Marketing Communication Manager Yes August 14, 2023 12:14pm Advance Directive Response Recorded Date/ Time Name of Medical Power of Marketing Communication Manager eugene kitchen May 13, 2023 12:54am Name of Medical Power of Marketing Communication Manager Kong Kitchen May 19, 2023 10:23am Name of Medical Power of Marketing Communication Manager mona (son) August 14, 2023 4:11pm Advance Directives No January 19 021 6:12am Living Will Yes August 14 4:11pm Power of Marketing Communication Manager Yes August 14, 2023 4:11pm Advance Directive Response Recorded Date/ Time Name of Medical Power of Marketing Communication Manager mona (son) August 14, 2023 4:11pm Advance Directives No January 19 021 6:12am Living Will Yes August 14, 023 4:11pm Power of Marketing Communication Manager Yes August 14, 2023 4:11pm Advance Directive Response Recorded Date/ Time Name of Medical Power of Marketing Communication Manager mona (son) August 14, 2023 4:11pm Name of Medical Power of Marketing Communication Manager daughter November 20, 2023 8:28pm Advance Directives No January 19 021 6:12am Living Will Yes November 20, 024 8:28pm Power of Marketing Communication Manager Yes November 20, 2023 8:28pm Advance Directive Response Recorded Date/ Time Name of Medical Power of Marketing Communication Manager daughter November 20, 2023 9:28pm Advance Directives No January 19 021 7:12am Living Will Yes November 20, 9:28pm Power of Marketing Communication Manager Yes November 20, 2023 9:28pm Advance Directive [...] Visit Atherosclerosis of c oronary artery of [place] heart without angina pectoris Essential hypertension Hyperlipidemia Paroxysmal atrial fibrillation Acute encephalopathy Elevated serum creatinine Fever Hypotension Immunosuppression due to drug therapy Jaundice Transaminitis Diabetes mellitus Essential hypertension H/O coronary artery bypass surgery 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 Chief Complaint 1 Y FU ENCEPHALOPATHY ACUTE, FEVER, JAUNDICE FUO, TRANSAMINITIS/HYPERBILIRUBINEMIA, ENCEPHALOPA FUO, TRANSAMINITIS/HYPERBILIRUBINEMIA, ENCEPHALOPA FUO, TRANSAMINITIS/HYPERBILIRUBINEMIA, ENCEPHALOPA FUO, TRANSAMINITIS/HYPERBILIRUBINEMIA, ENCEPHALOPA FUO, TRANSAMINITIS/HYPERBILIRUBINEMIA, ENCEPHALOPA FUO, TRANSAMINITIS/HYPERBILIRUBINEMIA, ENCEPHALOPA FUO, TRANSAMINITIS/HYPERBILIRUBINEMIA, ENCEPHALOPA FUO/TRANSAMINITIS/HYPERBILIRUBINEMIA Reason for Visit Atherosclerosis of c oronary artery of osage heart without angina pectoris Paroxysmal atrial fibrillation [...] Visit Atherosclerosis of c oronary artery of [place] heart without angina pectoris Paroxysmal atrial fibrillation [...] Visit Atherosclerosis of c oronary artery of [place] heart without angina pectoris Paroxysmal atrial fibrillation [...] of breath) Atherosclerosis of coronary artery of [place] heart without angina pectoris Paroxysmal atrial fibrillation Chief Complaint GASTROENTERITIS, ACU TE FEBRILE ILLNESS GASTROENTERITIS, ACUTE FEBRILE ILLNESS 6 M FU INT LABS E ORDERS TCU FU LOWER Reason for Visit Acute febrile illnes s Gastroenteritis SOB (shortness of breath) Atherosclerosis of coronary artery of [place] heart without angina pectoris Paroxysmal atrial fibrillation Ascending cholangitis Chief Complaint 6 M FU INT LABS E ORDERS TCU FU LOWER INT LABS Reason for Visit SOB (shortness of br eath) Atherosclerosis of coronary artery of [place] heart without angina pectoris Paroxysmal atrial fibrillation Ascending cholangitis Chief Complaint 6 M FU INT LABS E ORDERS TCU FU LOWER INT LABS CHF, SOB, 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 Amb Documentation Reason for Visit SOB (shortness of br eath) Atherosclerosis of coronary artery of [place]age heart without angina pectoris Paroxysmal atrial fibrillation Ascending cholangitis Chief Complaint Admit Date LABWORK September 10, 2024 5 :00am [facility] LAB WORK September 13 5:00am [facility] September 21, 2024 4:22pm LABWORK October 01, 2024 5:00am LABWORK October 15, 2024 6 :54am LABWORK November 12, 2024 5:00am LABWORK December 10, 2024 5:0 0am Chief Complaint Admit Date [facility] LAB WORK September 13 5:00am NEW CONCERN [...] 3:1 6pm Chief Complaint Admit Date LABWORK December 10, 2024 5:0 0am LABWORK December 24, 2024 5:0 0am [facility] January 08, 2025 5:15 pm [facility] January 09, 2025 5:25 pm LABWORK January 10, 2025 5:0 0am FOLLOW UP EXAM January 10, 2025 3:0 1pm LABWORK January 14, 2025 5:0 0am NEW [facility]CERN Meagan 28th, 2025 3:1 6pm LABWORK February 04, 2025 5:00am [facility] LAB WORK February 11, 2025 5:0 0am [facility] LAB WORK March 11, 2025 4:0 0am Additional Source Comments INFORMATION SOURCE (unrecogn ized section and content) DATE CREATED AUTHOR 08/15/2018 [facility] DATE CREATED AUTHOR AUTHOR'S ORGANIZ ATION 04/07/2022 [facility] DATE CREATED AUTHOR AUTHOR'S ORGANIZ ATION 06/02/[address] [facility] ([place]) DATE CREATED AUTHOR AUTHOR'S ORGANIZ ATION 03/17/2025 [facility] Source Comments (unrecognize d section and content) In the event this informatio n is protected by the Federal Confidentiality of Alcohol and Drug Abuse Patient Records regulations: The Federal rules restrict any use of the information to criminally investigate or prosecute any alcohol or drug abuse patient.[facility] the event this information is protected by the Federal Confidentiality of Alcohol and Drug Abuse Patient Records regulations: The Federal rules restrict any use of the information to criminally investigate or prosecute any alcohol or drug abuse patient.[facility] Center[facility] the event this information is protected by the Federal Confidentiality of Alcohol and Drug Abuse Patient Records regulations: The Federal rules restrict any use of the information to criminally investigate or prosecute any alcohol or drug abuse patient.[facility] Center[facility] the event this information is protected by the Federal Confidentiality of Alcohol and Drug Abuse Patient Records regulations: The Federal rules restrict any use of the information to criminally investigate or prosecute any alcohol or drug abuse patient.[facility] Center[facility] the event this information is protected by the Federal Confidentiality of Alcohol and Drug Abuse Patient Records regulations: The Federal rules restrict any use of the information to criminally investigate or prosecute any alcohol or drug abuse patient.[facility] Reason for Visit (unrecogniz ed section and content) Reason Comments New Patient Reason Comments Appointment Patient Question Reason Comments Cystoscopy-1 Urge Urinary Incontinence Specialty Diagnoses / Procedures Referred By Contac t Referred To Contact Urology / UROLOGY Diagnoses botox, 200 units Procedures CYSTOSCOPY ANAYELIOX Tejal Rivera MD [address] [place] [address] Tejal Rivera MD [address] [place] [address] Referral ID Status Reason Start Date Expiration Date Visits Re quested Visits Authorized [id number] Closed 09/02/2021 12/01/2021 1 1 Reason Comments Orders Reason Comments Urge Urinary Incontinence Cystoscopy-1 Specialty Diagnoses / Procedures Referred By Contac t Referred To Contact Urology / UROLOGY Diagnoses Urge incontinence cysto botox Procedures BOTULINUM TOXIN A PER 1 UNIT CYSTOSCOPY [id number] units Tejal Rivera MD [address] [place] [address] Tejal Rivera MD [address] [place] [address] Referral ID Status Reason Start Date Expiration Date V isits Requested Visits Authorized [id number] Authorized 04/01/2022 10/02/2022 99 99 Care Teams (unrecognized sec tion and content) Financial Internship Relationship Specialty Start Date End Date Rosalind Rubalcava MD [address] [place] [address] PCP - [facility] 07/14/12 Financial Internship Relationship Specialty Start Date End Date Rosalind Rubalcava MD [address] [place] [address] PCP - [facility] 07/14/12 Team Status: Active Member Role Status Dates Dr. Rosalind Rubalcava MD Family Provider Active Dr. Rosalind Rubalcava MD Primary Care Provider Active Team Status: Inactive Member Role Status Dates Dr. Rosalind Rubalcava MD Primary Care Provider, [facility] Provider Active Katalina Torres SENIOR BOOKKEEPER, SENIOR BOOKKEEPER-C Attending Provider Active Team Status: Active Member [...] DO Other Provider Active Dr. Doe Orr , Attending Provider Active Team Status: Active Member [...] MD Primary Care Provider Active Dr. Papo oMrillo MD Emergency Provider Active Dr. Octavia Gruber [...] MD Primary Care Provider Active Katalina Torres SENIOR BOOKKEEPER, SENIOR BOOKKEEPER-C Attending Provider, Referring P samy Active Team [...] MD Primary Care Provider Active Katalina Torres SENIOR BOOKKEEPER, SENIOR BOOKKEEPER-C Attending Provider Active Team Status: Active Member Role Status Dates Dr. Rosalind Rubalcava MD Primary Care Provider Active Start: September 10, 2024 Laverne VICTORIA MD Attending Provider Active Start: September 10, 2024 Team Status: Active Member Role Status Dates Dr. Rosalind Rubalcava MD Primary Care Provider Active Start: September 13, 2024 Lavrene VICTORIA MD Attending Provider Active Start: September 13, 2024 Team Status: Inactive Member Role Status Dates Dr. Rosalind Rubalcava MD Primary Care Provider Active Start: September 21, 2024 End: September 21, 2024 Jing Jones NP, SENIOR BOOKKEEPER-C Attending Provider Active Start: September 21, 2024 [...] 2025 End: January 28, 2025 Jing Jones SENIOR BOOKKEEPER, SENIOR BOOKKEEPER-C Attending Provider Active Start: January 28, 2025 [...] 2025 End: January 10, 2025 Jing Jones SENIOR BOOKKEEPER, SENIOR BOOKKEEPER-C Attending Provider Active Start: January 10, 2025 End: January 10, 2025 Team Status: Inactive Member Role Status Dates Dr. Rosalind Rubalcava MD Primary Care Provider Active Start: January 09, 2025 End: January 09, 2025 Jing Jones SENIOR BOOKKEEPER, SENIOR BOOKKEEPER-C Attending Provider Active Start: January 09, 2025 End: January 09, 2025 Team Status: Inactive Member Role Status Dates Dr. Rosalind Rubalcava MD Primary Care Provider Active Start: January 08, 2025 End: January 08, 2025 Jing Jones SENIOR BOOKKEEPER, SENIOR BOOKKEEPER-C Attending Provider Active Start: January 08, 2025 End: January 08, 2025 Team Status: Inactive Member Role Status Dates Dr. Rosalind Rubalcava MD Primary Care Provider Active Start: February 04, 2025 End: February 04, 2025 Laverne VICTORIA MD Attending Provider Active Start: February 04, 2025 End: February 04, 2025 Team Status: Inactive Member Role Status Dates Dr. Rosalind Rubalcava MD Primary Care Provider Active Start: February 11, 2025 End: February 11, 2025 Laverne VICTORIA MD Attending Provider Active Start: February 11, 2025 End: February 11, 2025 Team Status: Active Member Role Status Dates Dr. Rosalind Rubalcava MD Primary Care Provider Active Start: March 04, 2025 ZAID Morrison Attending Provider Active Start: March 04, 2025 Team Status: Active Member Role Status Dates Dr. Rosalind Rubalcava MD Primary Care Provider Active Start: March 06, 2025 Laverne VICTORIA MD Attending Provider Active Start: March 06, 2025 Team Status: Active Member Role Status Dates Dr. 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 [facility] [employer] [facility]. provides no warranty or guarantee of the accuracy or completeness of information in this document.
[2025-03-18 09:18] LABS: Thyroid Stim Hormone (TSH) 0.977 uIU/mL (0.300-4.200)
== END ==
LOC: OLS.WHLTSB 05:00
PROVIDERS: PCP Family Medicine; Visit Provider Internal Medicine
DX: E03.9 Hypothyroidism, unspecified (principal)
CPT/HCPCS: 36415; 84443

== ENCOUNTER → 2025-04-15 05:00 | Outpatient (REF) | payer MEDICARE, SELFPAY ==
--- OUTSIDE RECORDS SUMMARY | 2025-04-15 04:00 | XMS RPT_ITS | CCD ---
Author Organization [facility] Care Team Providers Care Dust Collector Treater Name Role Phone BOLOGNA, TEJAL A Unavailable [...] Care Provider Dr. Rosalind Rubalcava Referring Provider [phone] ZAID Torres NP Attending Provider Dr. Papo [...] Provider Dr. Rosalind Rubalcava Primary Care Provider 1([facility])[phone] Dr. Enrrique Eric Emergency Provider Dr. Judson Hernandez Admit Provider Dr. Judson Hernandez Other Provider Dr. Cirilo Fine Attending Provider 1([facility])[phone] Cirilo Fine Other Provider Dr. Rosalind Rubalcava Referring Provider 1([facility])[phone] Brian PAIRER ODDS, PAIRER ODDS-C Katalina Attending Provider Dr. Doe Orr Attending Provider 1([facility])[phone] Rosalind Rubalcava Primary Care Provider 1([facility])[phone] Dr. Rosalind Rubalcava Referring Provider 1([facility])[phone] Brian PAIRER ODDS, PAIRER ODDS-C Katalina Attending Provider Dr. Doe Orr Attending Provider 1([facility])[phone] Dr. Pawan Reed Attending Provider 1([facility])[phone] ROSALIND RUBALCAVA MD Attending Unavailable ROSALIND RUBALCAVA MD Primary Care Unavailable ROSALIND RUBALCAVA MD Attending Unavailable ROSALIND RUBALCAVA MD Primary Care Unavailable ROSALIND RUBALCAVA MD Attending Unavailable ROSALIND RUBALCAVA MD Primary Care Unavailable ROSALIND RUBALCAVA MD Attending Unavailable ROSALIND RUBALCAVA MD Primary Care Unavailable ROSALIND RUBALCAVA MD Attending Unavailable ROSALIND RUBALCAVA MD Primary Care Unavailable KATLAINA MANCINI Attending Unavailable ROSALIND RUBALCAVA MD Primary Care Unavailable ROSALIND RUBALCAVA MD Attending Unavailable ROSALIND RUBALCAVA MD Primary Care Unavailable ROSALIND RUBALCAVA MD Attending Unavailable ROSALIND RUBALCAVA MD Primary Care Unavailable Dr. Rosalind Rubalcava MD Primary Care Provider Laverne Lea MD Attending Provider Unavailtyesha Jones NP-CJing Attending Provider Dr. Rosalind Rubalcava MD Primary Care Provider [phone] Laverne Lea MD Attending Provider UnavailDr. Rosalind Dias MD Primary Care Provider Laverne Lea MD Attending Provider Unavailtyesha Jones PAIRER ODDS-C, Jing Attending Provider Tickton PAIRER ODDS-C, Jing Attending Provider Tickton PAIRER ODDS-C, Jing Attending Provider Tickreggie PAIRER ODDS-C, Jing Attending Provider Khadar ALY, Dr. Dhaliwal Primary Care Provider Laverne Lea MD Attending Provider Unavaila ble Robert PAIRER ODDS-C, Jing Attending Provider Tickton PAIRER ODDS-C, Jing Attending Provider Laverne Lea MD Referring Provider Unavaila caden Lea MD, Dr. Galloway Attending Provider Oleghe OLS, Efewongbe Attending Unavailabl e Khadar, Rosalind Primary Care Unavailable Oleghe OLS, Efewongbe Attending Unavailabl e Rubalcava, Rosalind Primary Care Unavailable Oleghe OLS, Efewongbe Attending Unavailabl e Rubalcava, Rosalind Primary Care Unavailable Rubalcava, Rosalind Referring Unavailable Rubalcava, Rosalind Primary Care Unavailable Doe Orr Attending Unavailable Oleghe OLS, Efewongbe Attending Unavailabl [...] Unavailabl e Rubalcava, Rosalind Primary Care Unavailable Agyepong, Fausto Admitting Unavailable Agyepong, Fausto Consulting Unavailable Rubalcava, Rosalind Primary Care Unavailable El Best Attending Unavailable Oleghe, Efewongbe Attending Unavailable Rubalcava, Rosalind Primary Care Unavailable Rubalcava, Rosalind Primary Care Unavailable Tickton OLS, Jing Attending Unavailable Tickton PAIRER ODDS, Jing Attending Unavailable Rubalcava, Rosalind Primary Care Unavailable Agyepong, Fausto Consulting Unavailable Agyepong, Fausto Admitting Unavailable Rubalcava, Rosalind Primary Care Unavailable El Best Attending Unavailable El Best Consulting Unavailable Friend, Doe Consulting Unavailable Rubalcava, Rosalind Primary Care Unavailable Rubalcava, Rosalind Referring Unavailable FriendDoe Attending Unavailable Tickton PAIRER ODDS, Jing Attending Unavailable Rubalcava, Rosalind Primary Care Unavailable Tickton PAIRER ODDS, Jing Attending Unavailable Rubalcava, Rosalind Primary Care Unavailable Tickton PAIRER ODDS, Jing Attending Unavailable Rubalcava, Rosalind Primary Care Unavailable Tickton PAIRER ODDS, Jing Attending Unavailable Rubalcava, Rosalind Primary Care Unavailable Tickton PAIRER ODDS, Jing Attending Unavailable Rubalcava, Rosalind Primary Care Unavailable Tickton PAIRER ODDS, Jing Attending Unavailable Rubalcava, Rosalind Primary Care Unavailable Adriana, Fausto Attending Unavailable Derek, [place] Attending Unavailable Oleghe OLS, Efewongbe Attending Unavailabl e Rubalcava, Rosalind Primary Care Unavailable Oleghe, Efewongbe Attending Unavailable Rubalcava, Rosalind Primary Care Unavailable Friend, Doe Attending Unavailable Rubalcava, Rosalind Primary Care Unavailable Rubalcava, Rosalind Referring Unavailable Rubalcava, Rosalind Primary Care Unavailable Derek, [place] Attending Unavailable Rubalcava, Rosalind Referring Unavailable Rubalcava, Rosalind Primary Care Unavailable Derek, [place] Attending Unavailable Derek, [place] Referring Unavailable Rubalcava, Rosalind Primary Care Unavailable Deric Cortez Attending Unavailable Rubalcava, Rosalind Referring Unavailable Oleghe OLS, Efewongbe Attending Unavailabl e Rubalcava, Rosalind Primary Care Unavailable Oleghe OLS, Efewongbe Attending Unavailabl e Rubalcava, Rosalind Primary Care Unavailable Oleghe OLS, Efewongbe Attending Rosalind Moy Primary [facility] Unavailable Laverne Springer Attending Rosalind Moy Primary [facility] Unavailable Laverne Springer Attending Rosalind Moy Primary [facility] Unavailable Jing Jones NP Attending Unavailable Rosalind Rubalcava Primary [facility] Unavailable Allergies Allergy Classification Reported Allergen(s) Allergy Type Date of Onset Reaction(s) Facility (20 sources) codeine; 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: [CODEINE] Drug Allergy 2 Other: See Comments [facility] Rep[facility] (20 sources) Latex; 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: [LATEX] Propensity to adverse reactions (disorder) 8 Hives [facility] Rep[facility] Comment on above: only allergic when a lready sick (6 sources) metFORMIN; 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: [METFORMIN] Drug Allergy 7 Unknown [facility] Rep[facility] (16 sources) SITagliptin; 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: [SITAGLIPTIN] Drug Allergy 7 Unknown [facility] (20 sources) Promethazine; 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: [promethazine] Drug Allergy 3 PT UNSURE OF REACTION [facility] (20 sources) tiZANidine; 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: [tizanidine] Drug Allergy 3 SICK, DIZZINESS, Unknown [facility] (17 sources) atorvastatin Drug Allergy 3 Unknown [facility] (17 sources) insulin degludec Drug Allergy 3 Nausea [facility] (17 sources) insulin isophane Drug Allergy 3 heart burn [facility] (17 sources) liraglutide Drug Allergy 3 Nausea [facility] (18 sources) SITagliptin; 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: [sitagliptin phosphate] Drug Allergy 3 Unknown [facility] (17 sources) Anesthetics - Amide Type - Select A Allergy to substance 3 NEEDS FOLLOW-UP [facility] (17 sources) Anesthetics - Tyra Type- Parabens Allergy to substance 3 NEEDS FOLLOW-UP [facility] (1 source) atorvastatin Drug Allergy 4 [facility] (1 source) insulin degludec Drug Allergy 4 [facility] (1 source) insulin isophane Drug Allergy 4 [facility] (1 source) liraglutide Drug Allergy 4 [facility] (1 source) Promethazine Drug Allergy 4 [facility] (1 source) tiZANidine Drug Allergy 4 [facility] (1 source) Anesthetics - Amide Type - Select A Drug allergy (disorder) 4 [facility] Rep[facility] (1 source) Anesthetics - Tyra Type- Parabens Drug allergy (disorder) 4 [facility] Medications Current Medications Medication Drug Class(es) Dates Sig (Normalized) Sig (Original) acetaminophen 500 mg oral tablet (20 sources) Start: 02-18-2023 Tylenol Extra Strength 500 mg oral tablet Dose : 1,000 mg = 2 tab(s), Oral, q4h, PRN as needed for pain, # 120 tab(s), 1 Refill(s), Pharmacy: [facility] [id number], 155.5, cm, 02/11/23 10:54:00 EDT, Height, kg, 02/11/23 10:54:00 EDT, Dosing Weight Start Date: 02/18/23 Status: Ordered Start: 10-29-2022 Tylenol Extra Strength 500 mg oral tablet Dose : 1,000 mg = 2 tab(s), Oral, q4h, PRN as needed for pain, # 120 tab(s), 1 Refill(s), Pharmacy: [facility] [id number], 157, cm, 10/13/22 15:01:00 EST, Height, kg, [...] above: Take 500 mg by mouth . ALPRAZolam 0.5 mg oral tablet (20 sources) Benzodiazepine Start: End: take 2 tablets by mouth at bedtime Alprazolam 0.5 mg tablet Discontinued 0.5 mg PO As Directed 60 November 20, 2024 11:44am January 18, 2025 12:15pm 2 tabs p.o. at bedtime Start: 03-29-2018 End: 03-20-2025 Start: 03-29-2018 End: 11-23-2019 take 1 tablet [...] QID, # 120 tab(s), 0 Refill(s), Pharmacy: [facility]/pharmacy #[id number], Anxiety, 157, cm, 03/05/22 14:26:00 EDT, Height, 85, kg, 03/05/22 14:26:00 EDT, Dosing Weight Start Date: 03/05/22 Stop Date: 04/04/22 Status: Ordered Comment on above: Take 0.5 mg by mouth three times daily. aspirin 81 mg delayed releas e oral tablet (20 sources) Platelet Aggregation Inhibitor, [...] cap(s), 0 Refill(s), 03/11/23 14:45:00 EDT, Pharmacy: [place] [id number], UTI (urinary tract infection), 155, cm, 03/04/23 13:08:00 EDT, Height, 90.9 Start Date: 03/04/23 Stop Date: 03/11/23 Status: Ordered Start: 12-17-2022 End: 12-24-2022 cephalexin 500 mg oral capsu le Dose : 500 mg = 1 cap(s), Oral, TID, X 7 day(s), # 21 cap(s), 0 Refill(s), 12/24/22 9:33:00 EDT, Pharmacy: [place] [id number], Atrial fibrillation Anticoagulant long-term use, 157, cm, 12/17/22 8:53:00 EDT, Height, 89.1 Start Date: 12/17/22 Stop Date: 12/24/22 Status: Ordered Start: 04-06-2022 End: 04-06-2022 cephALEXin 500 mg cap(s) (KE FLEX) Start: 02-19-2022 End: 02-26-2022 cephalexin 500 mg oral capsu le Dose : 500 mg = 1 cap(s), Oral, q8h, X 7 day(s), # 21 cap(s), 0 Refill(s), 02/26/22 13:18:00 EDT, Pharmacy: [facility]/pharmacy #[id number], 157, cm, 02/19/22 12:58:00 EDT, Height, 85.9 Start Date: 02/19/22 Stop Date: 02/26/22 Status: Ordered Start: 09-17-2021 End: 09-24-2021 Keflex 500 mg oral capsule D ose : 500 mg = 1 cap(s), Oral, q12h, X 7 day(s), # 14 cap(s), 0 Refill(s), 09/24/21 14:50:00 EST, Pharmacy: [facility]/pharmacy #[id number], UTI symptoms, 156.8, cm, 09/17/21 14:03:00 EST, Height, 85.6, kg, 09/17/21 14:03:00 EST, Dosing Weight Start Date: 09/17/21 Stop Date: 09/24/21 Status: Ordered Start: 09-02-2021 End: 09-02-2021 cephALEXin 500 mg cap(s) (KE FLEX) cholecalciferol 0.125 mg ora l capsule (17 sources) Vitamin D Start: 01-20-2022 DME MISCellaneous (5 sources) Start: 10-13-2023 DME MISCellane ous See Instructions, glucometer., # 1 EA, 0 Refill(s), Pharmacy: [facility] - [id number], 154, cm, 08/31/23 11:39:00 EST, Height, 81, [...] qDay, # 90 tab(s), 1 Refill(s), Pharmacy: [facility]/pharmacy #[id number], Recurrent depression, 157, cm, 07/22/21 15:01:00 EDT, Height, kg, 07/22/21 15:01:00 EDT, Dosing Weight Start Date: 07/22/21 Status: Ordered Gemtesa (2 sources) Start: 02-11-2023 take 1 mg by mouth once daily Gemtesa mg =, Oral, qDay, 0 Refill(s) Start Date: 02/11/23 Status: Ordered hydrALAZINE hydrochloride 25 mg oral tablet (16 sources) Arteriolar Vasodilator Start: 04-02-2024 End: 07-17-2024 [...] sites, # 9 mL, 5 Refill(s), Pharmacy: [facility] [id number], 154, cm, 03/30/24 8:57:00 EDT, Height, kg, 03/30/24 8:57:00 EDT, Dosing Weight Start Date: 03/30/24 Stop Date: 09/26/24 Status: Ordered Start: 2023 End: 02-05-2024 inject 1 dose by subcutaneous injection once daily Tresiba FlexTouch 200 units/mL 3 mL subcutaneous solution Dose : 30 unit(s) =, Subcutaneous, qDay, rotate injection sites, # 9 mL, 5 Refill(s), Pharmacy: [place] [id number], 155, cm, 08/09/23 10:54:00 EST, Height, kg, [...] sites, # 2 EA, 5 Refill(s), Pharmacy: [facility] [id number], 157, cm, 08/25/22 16:05:00 EST, Height, kg, [...] qDay, # 30 tab(s), 11 Refill(s), Pharmacy: [place] [address], Chronic low back pain Hypothyroidism, 154, cm, 03/30/24 8:57:00 EDT, Height, kg, 03/30/24 8:57:00 EDT, Dosing Weight Start Date: 03/30/24 Status: Ordered Start: 12-29-2018 End: 10-21-2021 losartan potassium 25 mg ora l tablet (20 sources) Angiotensin 2 Receptor Tawana Start: 04-12-2024 Start: 05-17-2023 End: 04-12-2024 Start: 05-17-2023 End: 04-12-2024 Losartan [...] by mouth once daily. Take by mouth. naloxone hydrochloride 40 mg/ml nasal spray (9 sources) Opioid Antagonist Start: 12-09-2021 Narcan 4 mg/0.1 mL nasal spray 1 spray(s), Intranasal, AsDirected, PRN see pharmacy notes, may repeat every 2 to 3 minutes until patient responds, # 2 EA, 0 Refill(s), Pharmacy: [facility] [id number], 157, cm, 01/07/23 11:37:00 EDT, Height Start [...] month supply, BD UF mini pen needles [id number], DX: E11.9, # 1 EA, 11 Refill(s), Pharmacy: [facility]/pharmacy #[id number], 157.5, cm, 11/04/20 13:17:00 EST, [...] evening., # 120 tab(s), 3 Refill(s), Pharmacy: [facility]/pharmacy #[id number], 157, cm, 01/22/22 15:31:00 EDT, Height, [...] qHS, # 90 tab(s), 0 Refill(s), Pharmacy: [place] [address], 154, cm, 08/31/23 11:39:00 EST, Height, kg, 08/31/23 11:39:00 EST, Dosing Weight Start Date: 09/13/23 Status: Ordered Start: 05-17-2023 traZODone 150 mg oral tablet Dose : 150 mg = 1 tab(s), Oral, qHS, # 90 tab(s), 0 Refill(s), Pharmacy: [place] [id number], 155, cm, 04/08/23 11:20:00 EDT, Height, kg, 04/08/23 11:20:00 EDT, Dosing Weight Start Date: 05/17/23 Status: Ordered Start: 02-18-2023 traZODone 150 mg oral tablet Dose : 150 mg = 1 tab(s), Oral, qHS, # 90 tab(s), 0 Refill(s), Pharmacy: [place] [address], 155.5, cm, 02/11/23 10:54:00 EDT, Height, kg, 02/11/23 10:54:00 EDT, Dosing Weight Start Date: 02/18/23 Status: Ordered Start: 11-30-2022 traZODone 150 mg oral tablet Dose : 150 mg = 1 tab(s), Oral, qHS, # 90 tab(s), 0 Refill(s), Pharmacy: [place] [address], 157, cm, 11/19/22 15:09:00 EST, Height, kg, [...] qHS, # 90 tab(s), 1 Refill(s), Pharmacy: [facility]/pharmacy #[id number], 157, cm, 04/07/22 10:54:00 EDT, [...] qHS, # 90 tab(s), 3 Refill(s), Pharmacy: [facility]/pharmacy #[id number], 157, cm, 12/04/21 11:32:00 EST, Height, kg, 12/04/21 11:32:00 EST, Dosing Weight Start Date: 12/04/21 Stop Date: 11/29/22 Status: Ordered Start: 10-22-2021 traZODone 150 mg oral tablet Dose : 150 mg = 1 tab(s), Oral, BID, # 60 tab(s), 11 Refill(s), Pharmacy: [facility]/pharmacy #[id number], 157, cm, 10/22/21 10:32:00 EST, [...] sites, # 3 EA, 11 Refill(s), [id number], 157.5, cm, 04/08/21 14:24:00 EDT, Height, kg, 04/08/21 14:24:00 EDT, Dosing Weight Start Date: 04/08/21 Stop Date: 04/03/22 Status: Ordered Vitamin D3 125 mcg (5000 intl units) oral capsule (5 sources) Start: 09-13-20 End: 09-07-20 Vitamin D3 125 mcg (5000 intl units) oral capsule Dose : 5,000 International_Unit = 1 cap(s), Oral, qDay, # 90 cap(s), 3 Refill(s), Pharmacy: [place] [id number], Afib Anticoagulant long-term use, 154, cm, 08/31/23 11:39:00 EST, Height, kg, 08/31/23 11:39:00 EST, Dosing Weight Start Date: 09/13/23 Stop Date: 09/07/24 Status: Ordered Start: 09-07-2022 End: 09-02-2023 Vitamin D3 125 mcg (5000 int l units) oral capsule Dose : 5,000 International_Unit = 1 cap(s), Oral, qDay, # 90 cap(s), 3 Refill(s), Pharmacy: [facility] [place] [id number], Afib Anticoagulant long-term use, 157, cm, 08/25/22 [...] three times daily as needed for pain Putnam 325- 5 mg oral tablet Dose = 1 tab(s), Oral, TID, PRN for pain, # 21 tab(s), 0 Refill(s), Pharmacy: [facility] [id number], Arthritis, 154, cm, 08/31/23 11:39:00 EST, Height, 81, kg, 08/31/23 11:39:00 EST, Dosing Weight Start Date: 09/21/23 Stop Date: 09/28/23 Status: Ordered Start: 2023 End: 09-08-2023 take 1 tablet by mouth three times daily as needed for pain Putnam 325- 5 mg oral tablet Dose = 1 tab(s), Oral, TID, PRN for pain, # 90 tab(s), 0 Refill(s), Pharmacy: [place] [id number], Arthritis, 155, cm, 08/09/23 10:54:00 EST, Height, 83.4, kg, 08/09/23 10:37:00 EST, Dosing Weight Start Date: 08/09/23 Stop Date: 09/08/23 Status: Ordered Start: 04-13-2023 End: 05-13-2023 take 1 tablet by mouth three times daily as needed for pain Putnam 325- 5 mg oral tablet Dose = 1 tab(s), Oral, TID, PRN for pain, # 90 tab(s), 0 Refill(s), Pharmacy: [place] [id number], Chronic low back pain, 155.5, cm, 02/11/23 10:54:00 EDT, Height, 90.4 Start Date: 04/13/23 Stop Date: 05/13/23 Status: Ordered Start: 02-11-2023 End: 04-12-2023 take 1 tablet by mouth three times daily as needed for pain Putnam 325- 5 mg oral tablet Dose = 1 tab(s), Oral, TID, PRN for pain, # 90 tab(s), 0 Refill(s), Pharmacy: [place] [id number], Arthritis, 155.5, cm, 02/11/23 10:54:00 EDT, Height, 90.4 Start Date: 03/13/23 Stop Date: 04/12/23 Status: Ordered Start: 12-17-2022 End: 01-16-2023 take 1 tablet by mouth twice daily as needed for pain Putnam 325- 5 mg oral tablet Dose = 1 tab(s), Oral, BID, PRN for pain, # 60 tab(s), 0 Refill(s), Pharmacy: [place] [id number], Arthritis, 157, cm, 12/17/22 8:53:00 EDT, Height, 89.1, kg, 12/17/22 8:53:00 EDT, Dosing Weight Start Date: 12/17/22 Stop Date: 01/16/23 Status: Ordered Start: 05-19-2022 End: 11-10-2023 take 1-10 tablets by mouth every twelve hours as needed for pain Hydrocodone-Acetaminophen (Putnam) 5-325 mg tablet Discontinued 1 {tbl} PO Q12H as needed for Pain 1-10 Or Fever May 19, 2022 10:37am November 10, 2023 3:41pm Start: 04-07-2022 End: 05-07-2022 take 1 tablet by mouth twice daily as needed for pain Putnam 325- 5 mg oral tablet Dose = 1 tab(s), Oral, BID, PRN for pain, # 60 tab(s), 0 Refill(s), Pharmacy: [facility]/pharmacy #[id number], Arthritis, 157, cm, 04/07/22 10:54:00 EDT, Height, 86.3, kg, 04/07/22 10:54:00 EDT, Dosing Weight Start Date: 04/07/22 Stop Date: 05/07/22 Status: Ordered Start: 02-09-2022 End: 04-04-2022 take 1 tablet by mouth twice daily as needed for pain Putnam 325- 5 mg oral tablet Dose = 1 tab(s), Oral, BID, PRN for pain, # 60 tab(s), 0 Refill(s), Pharmacy: [facility]/pharmacy #[id number], Arthritis, 157, cm, 03/05/22 14:26:00 EDT, Height, 85, kg, 03/05/22 14:26:00 EDT, Dosing Weight Start Date: 03/05/22 Stop Date: 04/04/22 Status: Ordered Start: 11-03-2021 End: 12-03-2021 take 1 tablet by mouth twice daily as needed for pain Putnam 325- 5 mg oral tablet Dose = 1 tab(s), Oral, BID, PRN for pain, short term in absence of PCP, # 60 tab(s), 0 Refill(s), Pharmacy: [facility]/pharmacy #[id number], Arthritis, 157, cm, 10/22/21 10:32:00 EST, Height, 85, kg, 10/22/21 10:32:00 EST, Dosing Weight Start Date: 11/03/21 Stop Date: 12/03/21 Status: Ordered Start: 09-03-2021 End: 10-03-2021 take 1 tablet by mouth twice daily as needed for pain Putnam 325- 5 mg oral tablet Dose = 1 tab(s), Oral, BID, PRN for pain, short term in absence of PCP, # 60 tab(s), 0 Refill(s), Pharmacy: [facility]/pharmacy #[id number], Arthritis, 157.6, cm, 09/03/21 11:20:00 EST, Height, [...] albuterol 0.09 mg /actuat dry powder inhaler (17 sources) beta2-Adrenergic Agonist Start: 11-06-2018 End: 11-23-2019 [...] / ipratropium bromide 0.167 mg/ml inhalation solution (17 sources) Anticholinergic, beta2-Adrenergic Agonist Start: 01-08-2015 End: [...] 30, 2015 12:57pm Start: 01-08-2015 End: 01-30-2015 amiodarone hydrochloride 200 mg oral tablet (20 [...] 875-125 mg per tablet 0 11/23/2017 Active apixaban 5 mg oral tablet (20 sources) Factor Xa Inhibitor Start: 04-20-2023 End: 04-12-2025 Start: 04-20-2023 End: 01-10-2025 Start: 04-20-2023 End: [...] 13, # 60 tab(s), 11 Refill(s), Pharmacy: [facility] [id number], 155, cm, 04/08/23 11:20:00 EDT, Height, 90, kg, 04/08/23 11:20:00 EDT, Dosing Weight Start Date: 04/08/23 Stop Date: 04/02/24 Status: Ordered Start: 10-22-2021 End: 10-17-2022 Eliquis 5 mg oral tablet Dos e : 5 mg = 1 tab(s), Oral, BID, # 60 tab(s), 11 Refill(s), [id number], 157, cm, 10/22/21 10:32:00 EST, Height, 85, kg, 10/22/21 10:32:00 EST, Dosing Weight Start Date: 10/22/21 Stop Date: 10/17/22 Status: Ordered betamethasone 0.5 mg/ml / clotrimazole 10 mg/ml topical cream (5 sources) Azole Antifungal, Corticosteroid Start: 03-11-2017 clotrimazole-betamethasone (LOTRISONE) cream Apply to affected area twice daily. APPLY TO AFFECTED AREA 2 03/11/2017 Active Comment on above: Apply to affected ar ea twice daily. APPLY TO AFFECTED AREA bisacodyl 5 mg delayed release oral tablet (17 sources) Stimulant Laxative Start: 09-05-2017 End: 11-03-2017 [...] once daily. ciprofloxacin 500 mg oral tablet (16 sources) Quinolone Antimicrobial Start: 2023 End: 08-19-2023 [...] 01-22-2021 dicyclomine hydrochloride 10 mg oral capsule (8 sources) Anticholinergic Start: 04-26-2024 End: 07-17-2024 digoxin 0.125 mg oral tablet (20 sources) Cardiac Glycoside Start: 06-08-2017 End: 09-03-2017 docusate sodium 50 mg / mahi osides, retirement 8.6 mg oral tablet (17 sources) Start: 09-05-2017 End: 11-03-2017 Start: 09-05-2017 [...] 2:45pm fluconazole 200 mg oral tabl et (17 sources) Azole Antifungal Start: 12-29-2018 End: 11-23-2019 [...] Discontinued 15 U SC TWICE A DAY July 27, 2017 12:00am September [...] subcutaneousl y daily at bedtime. Insulin Glargine-Yfgn (17 sources) Start: 05-17-2023 End: 08-14-2023 Insulin Glargine-Yfgn [...] BEDTIME May 17, 2023 12:00am Insulin Lispro (17 sources) Insulin Analog Start: 01-08-2015 End: 01-30-2015 [...] (XYLOCAINE) liothyronine sodium 0.005 mg oral tablet (17 sources) l-Triiodothyronine Start: 06-29-2017 End: 07-27-2017 Start: [...] loperamide hydrochloride 2 m g oral capsule (17 sources) Opioid Agonist Start: 05-16-2023 End: 04-01-2024 melatonin 3 mg oral tablet (17 sources) Start: 07-27-2017 End: 09-03-2017 Start: 07-27-2017 [...] 03, 2017 3:13pm Start: 07-27-2017 End: 09-03-2017 24 hr metoprolol succinate 2 5 mg [...] (Rx) Start Date: 11/15/23 Status: Ordered Start: 06-16-2023 Metoprolol Suc cinate ER 50 mg oral TABLET extended release Dose : 50 mg = 1 tab(s), Oral, qDay, # 90 tab(s), 0 Refill(s) Start Date: 06/16/23 Status: Ordered Start: 04-21-2023 End: 01-05-2024 Start: 04-21-2023 End: 01-05-2024 Start: 04-21-2023 End: [...] 2023 2:46pm April 21, 2023 2:33pm Start: 07-29-2021 Metoprolol Suc cinate ER 50 mg oral TABLET extended release Dose : 50 mg = 1 tab(s), Oral, qDay, # 90 tab(s), 3 Refill(s), Pharmacy: [facility]/pharmacy #[id number], Hypertension, 157, cm, 07/22/21 15:01:00 EDT, Height, kg, 07/22/21 15:01:00 EDT, Dosing Weight Start Date: 07/29/21 Status: Ordered Start: 12-26-2017 metoprolol suc cinate ER (TOPROL XL) 50 mg 24 hr tablet 0 12/26/2017 Active Start: 11-03-2017 End: 10-21-2021 Start: 11-03-2017 End: 10-21-2021 Start: 10-11-2017 metoprolol suc cinate ER (TOPROL XL) 25 mg 24 hr tablet 0 10/11/2017 Active Start: 01-08-2015 End: 11-03-2017 Start: 01-08-2015 End: 11-03-2017 Metoprolol [...] 25 mg by mouth daily at bedtime. montelukast 10 mg oral tablet (20 sources) Leukotriene Receptor Antagonist Start: 12-30-19 21 End: 07-17-20 24 Comment on above: Take 10 mg by mouth once daily. nitrofurantoin, macrocrystals 25 mg / nitrofurantoin, monohydrate 75 mg oral capsule (5 sources) Nitrofuran Antibacterial Start: 12-31-19 18 take 1 capsule by mouth twice daily nitrofurantoin monohydrate and macrocrystal (MACROBID) 100 mg capsule Take 1 capsule by mouth twice daily. 14 capsule 0 12/30/2017 Active Comment on above: Take 1 capsule by progress [facility]. Nut.Tx.Gluc Intol,Lf,Soy-Fiber (Glucerna 1.2 Oswald) 120 ML Liquid (13 sources) Start: 09-14-20 17 End: 09-14-20 17 take 1 mL by mouth four times daily Nut.Tx.Gluc Intol,Lf,Soy-Fiber (Glucerna 1.2 Oswald) 120 ML Liquid Discontinued 120 mL PO 4 TIMES DAILY September 14, 2017 1:00am September 14, 2017 2:33pm Start: 09-14-2017 End: 09-14-2017 take 1 mL by mouth four times daily Nut.Tx.Gluc Intol,Lf,Soy-Fiber (Glucerna 1.2 Sowald) 120 ML Liquid Discontinued 120 ML PO [...] End: 09-03-2017 Start: 07-27-2017 End: 09-03-2017 [place] [place] Discontinued 1 NMA [...] 40 mg delayed rel ease oral capsule (16 sources) Proton Pump Inhibitor Start: 04-19-2024 End: 07-17-2024 ondansetron 8 mg disintegrat ing oral tablet (14 sources) Serotonin-3 Receptor Antagonist Start: 08-15-2023 End: 04-01-2024 oxybutynin chloride 5 mg ora l tablet (17 sources) Cholinergic Muscarinic Antagonist Start: 06-29-2017 End: 09-03-2017 oxyCODONE hydrochloride 5 mg oral tablet (17 sources) Opioid Agonist Start: 06-08-2017 End: 06-29-2017 pantoprazole 40 mg delayed release oral tablet (20 sources) Proton Pump Inhibitor Start: 11-10-2023 End: 04-01-2024 Start: 11-10-2023 Pantoprazole A ctive MG PO November 10, 2023 1:00am Start: 06-16-2023 pantoprazole 4 0 mg oral enteric coated tablet Dose : 40 mg = 1 tab(s), Oral, qDay, # 30 tab(s), 0 Refill(s), Pharmacy: [facility]/pharmacy #[id number], Ascending cholangitis Elevated LFTs, 155, cm, 06/16/23 13:11:00 EDT, Height, kg, 06/16/23 12:56:00 EDT, Dosing Weight Start Date: 06/16/23 Status: Ordered Start: 01-08-2015 End: 09-03-2017 Comment on above: Take 40 mg by mouth twice daily. polyethylene glycol 3350 170 00 mg powder for oral solution (17 sources) Osmotic Laxative Start: 09-05-2017 End: 11-03-2017 microencapsulated potassium chloride 20 meq extended release oral tablet (20 sources) Start: 09-11-2017 End: 11-03-2017 Start: 06-08-2017 End: 06-29-2017 prednisoLONE acetate 10 mg/ml ophthalmic suspension (17 sources) Corticosteroid Start: 12-29-2020 End: 02-19-2021 promethazine [...] bedtime. sucralfate 1000 mg oral tabl et (8 sources) Aluminum Complex Start: 04-19-2024 End: 07-17-2024 [...] 24, 2023 12:07pm Start: 09-03-2021 End: 04-01-2024 traMADol hydrochloride 50 mg oral tablet (20 sources) Opioid Agonist Start: 07-17-2024 End: 02-18-2025 Start: 07-17-2024 End: 10-04-2024 take 1 tablet by mouth four times daily as needed for pain Tramadol 50 mg tablet Discontinued 50 mg PO 4 TIMES DAILY NEEDED as needed for pain July 17, 2024 12:00am October 04, 2024 12:17pm Start: 04-26-2024 End: 02-18-2025 Start: 04-26-2024 End: 05-16-2024 take 1 tablet by mouth every eight hours as needed for pain Tramadol 50 mg tablet Discontinued 50 mg PO Q8H as needed for pain April 26, 2024 12:00am May 15, 2024 12:00am May 16, 2024 12:04am Start: 09-11-2017 End: 11-03-2017 24 hr trospium chloride 60 mg extended release oral capsule (5 sources) Cholinergic Muscarinic Antagonist Start: 10-06-2017 take 1 capsule by mouth once daily Trospium (SANCTURA SR) 60 mg cp24 Take 1 capsule by mouth once daily. 30 capsule 11 10/06/2017 Active Comment on above: Take 1 capsule by [facility] once daily. valsartan 320 mg oral tablet (20 sources) Angiotensin 2 Receptor Tawana Start: 09-06-2017 End: 11-03-2017 Start: 09-05-2017 End: 09-06-2017 vancomycin 125 mg oral capsule (17 sources) Glycopeptide Antibacterial Start: 01-08-2015 End: 01-30-2015 [...] 1:00am Start: 08-14-2023 take 1 tablet by darián once daily Vibegron (Gemtesa) 75 mg tablet [...] qDay, # 90 cap(s), 3 Refill(s), Pharmacy: [facility]/pharmacy #[id number], Afib Anticoagulant long-term use, 158, cm, 02/10/21 13:15:00 EDT, Height, kg, 03/11/21 12:33:00 EDT, Dosing Weight Start Date: 03/11/21 Stop Date: 03/06/22 Status: Ordered warfarin sodium 5 mg oral tablet (20 sources) Vitamin K Antagonist Start: 05-19-2022 End: 04-20-2023 Start: 01-22-2022 warfarin 5 mg oral tablet Dose : 5 mg = 1 tab(s), Oral, qDay, # 30 tab(s), 5 Refill(s), Pharmacy: [facility]/pharmacy #[id number], 157, cm, 01/22/22 15:31:00 EDT, Height Start Date: 01/22/22 Status: Ordered Start: 09-16-2021 warfarin 2.5 m g oral tablet Dose : 2.5 mg = 1 tab(s), Oral, qDay, # 90 tab(s), 1 Refill(s), [id number] 157.6, cm, 09/03/21 11:20:00 EST, Height, kg, 09/03/21 11:20:00 EST, Dosing Weight Start Date: 09/16/21 Status: Ordered Start: 07-29-2021 warfarin 3 mg oral tablet See Instructions, 1 tab(s) Oral Tue, Tue, Tue, # 15 tab(s), 3 Refill(s), [id number] 157, cm, 07/22/21 15:01:00 EDT, Height, [...] 2.5 MG tablet Discontinued 2.5 mg PO DAILY@170June 29, 2017 12:00am July 27, 2017 9:27pm Start: 06-08-2017 End: 06-29-2017 Start: 06-08-2017 End: 06-29-2017 Warfarin (Coumadin (Pbkc)) 2 MG tablet Discontinued 2 mg PO MOWE@1700 June 08, 2017 12:00am June 29, 2017 8:44pm Start: 04-09-2017 End: 06-29-2017 Warfarin (Coumadin (Pbkc)) 2 MG tablet Discontinued 2 MG PO MOWE@1700 June 08, 2017 12:00am June 29, 2017 8:44pm [...] Date Documented Da te Episodic/Chronic Abdominal pain (18 sources) Abdominal pain; 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: [Generalized abdominal pain] 08-31-2023 Episodic Anxiety disorders (20 sources) Anxiety; 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: [Anxiety disorder, unspecified] Onset: 4 01-27-2021 Chronic Biliary tract disease (20 sources) Acute cholangitis ; 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: [Other cholangitis] 05-17-2023 Chronic Cardiac dysrhythmias (20 sources) Atrial fibrillation; 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: [Paroxysmal atrial fibrillation] Onset: 5 04-30-2020 Chronic Cardiac dysrhythmias (17 sources) Bradycardia; 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: [Bradycardia, unspecified] 09-22-2017 Episodic Complications of surgical procedures or medical care (17 sources) Wound dehiscence; 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: [Disruption of external operation (surgical) wound, not elsewhere classified, initial encounter] 09-23-2017 Episodic Congestive heart failure; nonhypertensive (14 sources) Congestive heart failure; 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: [Heart failure, unspecified] Onset: 4 12-14-2023 Chronic Coronary atherosclerosis and other heart disease (20 sources) Coronary atherosclerosis; Translations: [Atherosclerotic heart disease of [place] coronary artery without angina pectoris] 12-29-2018 Chronic [...] origin (20 sources) Fever; Translations: [Fever, unspecified] Onset: 5 05-14-2023 Episodic Gastritis and duodenitis (8 sources) Gastritis; Translations: [Gastritis, unspecified, without bleeding] 04-27-2024 Episodic Genitourinary symptoms and ill-defined conditions (20 sources) Urge incontinence of urine; Translations: [Urge incontinence] Onset: 7 Chronic Comment on above: has bladder stimulat or Genitourinary symptoms and ill-defined conditions (9 sources) Nocturia; Translations: [Nocturia] Episodic Headache; including migraine (10 sources) Headache 09-02-2017 Episodic Intestinal obstruction without hernia (8 sources) Fecal impaction; Translations: [Fecal impaction] 04-16-2024 [...] sources) Long-term current use of anticoagulant; Translations: [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] 04-30-2020 Episodic Other aftercare (18 sources) Immunosuppression; Translations: [Immunosuppression due to drug therapy] 05-13-2023 Episodic Other aftercare (2 sources) oil heaterman (current) use of anticoagulants; Translations: [Long-term (current) use of anticoagulants] Onset: 5 05-17-2023 Episodic Other aftercare (3 sources) Patient encounter status; Translations: [Encounter for therapeutic drug level monitoring] 12-14-2023 Episodic Other aftercare (8 sources) Long-term current use of diuretic; Translations: [Encounter for therapeutic drug level monitoring] 12-14-2023 Episodic Other circulatory disease (17 sources) Low blood pressure; Translations: [Hypotension, unspecified] 05-13-2023 Episodic Other circulatory disease (4 sources) Hypotension, unspecified; Translations: [Hypotension, unspecified] 05-17-2023 Episodic Other connective tissue disease (16 sources) Spasm; Translations: [Other muscle spasm] 05-17-2023 Episodic Other connective tissue disease (3 sources) Other muscle spasm; Translations: [Spasm of muscle] 06-10-2023 Episodic Other connective tissue disease (3 sources) Bursitis of right hip 04-08-2023 Episodic Other diseases of bladder and urethra (20 sources) Overactive bladder; Translations: [Overactive bladder] Onset: 8 05-17-2023 Chronic Other diseases of bladder and urethra (5 sources) Overactive bladder; Translations: [Overactive bladder] Onset: 7 05-23-2017 Chronic Other ear and sense organ disorders (10 sources) Unilateral earache 09-02-2017 Episodic Other endocrine disorders (2 sources) Increased secretion of gastrin; Translations: [Increased secretion of gastrin] Onset: 5 Chronic Other fractures (12 sources) Compression fracture of lumbar spine; Translations: [Wedge compression fracture of fourth lumbar vertebra, initial encounter for closed fracture] 11-20-2023 Episodic Other gastrointestinal disorders (10 sources) Constipation 11-21-2014 Episodic Other gastrointestinal disorders (10 sources) Diarrhea 12-29-2014 Episodic Other gastrointestinal disorders (1 source) Therapeutic opioid induced constipation 05-08-2024 Episodic Other gastrointestinal disorders (8 sources) Encopresis ; Translations: [Full incontinence of feces] 04-16-2024 Episodic Other gastrointestinal disorders (8 sources) Acute constipation; Translations: [Constipation, unspecified] 04-16-2024 Episodic Other gastrointestinal disorders (1 source) Diarrhea, unspecified; Translations: [Diarrhea, unspecified] Onset: 5 Episodic Other hereditary and degenerative nervous system conditions (16 sources) Restless legs; Translations: [Restless legs syndrome] [...] transaminase measurement] 05-13-2023 Episodic Other liver diseases (17 sources) Jaundice; Translations: [Unspecified jaundice] 05-13-2023 Episodic Other liver diseases (7 sources) Unspecified jaundice; Translations: [Jaundice, unspecified, not of ] 05-17-2023 Episodic Other lower respiratory disease (17 sources) Restrictive lung disease; Translations: [Other disorders of lung] 01-09-2018 Episodic Other lower respiratory disease (3 sources) Other disorders of lung; Translations: [Other diseases of lung, not elsewhere classified] 06-10-2023 Episodic Other lower respiratory disease (13 sources) Dyspnea; Translations: [Shortness of breath] 10-24-2023 Episodic Other lower respiratory disease (5 sources) Shortness of breath; Translations: [Shortness of breath] 10-24-2023 Episodic Other nervous system disorders (20 sources) Disorder of brain; Translations: [Encephalopathy, unspecified] 05-13-2023 Chronic Other nervous system disorders (7 sources) Encephalopathy, unspecified; Translations: [Encephalopathy, unspecified] 05-17-2023 Chronic Other nervous system disorders (7 sources) Chronic pain; Translations: [Other chronic pain] [...] (severe) obesity due to excess calories] Onset: Chronic Other nutritional; endocrine; and metabolic disorders (2 sources) Unintentional weight loss 08-31-2023 Episodic Other screening for suspected conditions (not mental disorders or infectious disease) (17 sources) CT of chest abnormal; Translations: [Abnormal findings on diagnostic imaging of other specified body structures] 05-12-2023 Chronic Other screening for suspected conditions (not mental disorders or infectious disease) (20 sources) INR raised; Translations: [Cardiovascular stress test abnormal] 12-17-2022 Episodic Other upper respiratory disease (16 sources) Allergic rhinitis; Translations: [Allergic rhinitis, unspecified] [...] above: non compliant CPAP Residual codes; unclassified (17 sources) Obstructive sleep apnea syndrome; Translations: [Obstructive sleep apnea (adult) (pediatric)] 09-22-2017 Chronic Residual codes; unclassified (20 sources) Insomnia; Translations: [Insomnia, unspecified] 09-28-2019 Episodic Residual codes; unclassified (17 sources) Delirium; Translations: [Disorientation, unspecified] 05-12-2023 Episodic Residual codes; unclassified (10 sources) Edema of lower extremity; Translations: [Localized edema] 12-28-2023 Episodic Residual codes; unclassified (7 sources) Acute pain; Translations: [Pain, unspecified] 01-09-2025 Episodic Skin and subcutaneous tissue infections (6 sources) Cellulitis of upper limb; Translations: [Cellulitis of leg, excluding foot] 12-17-2022 Episodic Spondylosis; intervertebral disc disorders; other back problems (11 sources) Chronic low back pain; Translations: [Low back pain] 08-15-2020 Episodic Substance-related disorders (10 sources) Continuous opioid dependence; Translations: [Opioid dependence, uncomplicated] Onset: 2 07-24-2012 Chronic Substance-related disorders (17 sources) Benzodiazepine withdrawal; Translations: [Sedative, hypnotic or anxiolytic use, unspecified with withdrawal, unspecified] 05-12-2023 Episodic Superficial injury; contusion (12 sources) Hematoma of lower limb; Translations: [Contusion [...] Documented Da te Episodic/Chronic Biliary tract disease (20 sources) Common bile duct calculus; Translations: [Calculus [...] Onset: 07-06-2024 Episodic Other aftercare (1 source) oil heaterman (current) use of insulin; Translations: [skilled nursing (current) use of insulin] Onset: 04-12-2024 Episodic [...] Test Name Value Interpretation Reference Range Facility TSH DL <= 0.005 mIU/L QnOrde red By: Lavenre Lea on 03-18-2025 TSH Qn 0.977 uIU/mL 0.300-4.200 [facility] Absolute lymphocyte countOrd ered By: Laverne Lea on 03-11-2025 Lymphocytes Auto (Unsp spec) [#/Vol] 3.97 10*3/uL 0.83-4.51 [facility] Anion gap in Serum or Plasma Ordered By: Laverne Lea on 03-11-2025 Anion gap [Moles/Vol] 10 mmol/L 5-15 [facility] Automated lymphocyte count a s percentage of total leukocytesOrdered By: Laverne Lea on 03-11-2025 Lymphocytes/100 WBC Auto (Unsp spec) 51.5 % High 19-41 [facility] BUN/creatinine ratioOrdered By: Laverne Lea on 03-11-2025 Urea nitrogen/Creatinine [Mass ratio] 21.8 mg/mg High 10-20 [facility] Basophil percentageOrdered B y: Laverne Lea on 03-11-2025 Basophils/100 WBC (Bld) 0.5 % 0-1 [facility] Carbon dioxide, total [Moles /volume] in Central venous bloodOrdered By: beverly Lea on 03-11-2025 CO2 [Moles/Vol] 21.9 mmol/L 21.0-32.0 [facility] Chloride assayOrdered By: Leonora Lea on 03-11-2025 Chloride [Moles/Vol] 107 mmol/L 98-108 [facility] Eosinophil percentageOrdered By: Laverne Lea on 03-11-2025 Eosinophils/100 WBC (Bld) 3.0 % 0-5 [facility] Erythrocyte distribution wid th ratioOrdered By: beverly Lea on 03-11-2025 Erythrocyte distribution width (RBC) [Ratio] 12.5 % 11.6-14.6 [facility] Erythrocyte distribution wid th standard deviationOrdered By: fatougreenwoodnate Lea on 03-11-2025 Erythrocyte distribution width (RBC) [Ratio] 42.0 fl 35.1-43.9 [facility] Glomerular filtration rate ( GFR) estimation/1.73 sq m using serum, plasma, or whole bOrdered By: Laverne Lea on 03-11-2025 GFR/1.73 sq M.predicted among non-blacks MDRD (S/P/Bld) [Vol rate/Area] 56 mL/min/{1.73_m2} Low >60 [facility] Hematocrit Auto (Bld) [Volum e fraction]Ordered By: Laverne Lea on 03-11-2025 Hematocrit (Bld) [Volume fraction] 33.7 % Low 37-47 [facility] Hemoglobin measurementOrdere d By: Laverne Lea on 03-11-2025 Hemoglobin (Bld) [Mass/Vol] 10.9 g/dL Low 12.0-15.0 [facility] Immature granulocytes/100 WB C Auto (Bld)Ordered By: Laverne Lea on 03-11-2025 Immature granulocytes/100 WBC (Bld) 0.300 % 0.0-0.9 [facility] MCV (mean corpuscular volume ) determinationOrdered By: Laverne Lea on 03-11-2025 MCV (RBC) [Entitic vol] 92.3 fL 81-99 [facility] Mean corpuscular hemoglobin (MCH) determinationOrdered By: beverly Lea on 03-11-2025 MCH (RBC) [Entitic mass] 29.9 pg 27.0-32.0 [facility] Monocyte percentageOrdered B y: Laverne Lea on 03-11-2025 Monocytes/100 WBC (Bld) 5.6 % 0-10 [facility] Neutrophil percentageOrdered By: Laverne Lea on 03-11-2025 Neutrophils/100 WBC (Bld) 39.1 % Low 47-70 [facility] Platelet countOrdered By: Leonora katienate Moraleznetoayo on 03-11-2025 Platelets (Bld) [#/Vol] 294 10*3/uL 150-450 [facility] Potassium measurement (mass/ volume)Ordered By: Laverne Lea on 03-11-2025 Potassium (Unsp spec) [Mass/Vol] 4.0 mmol/L 3.3-5.1 [facility] RBC Auto (Bld) [#/Vol]Ordere d By: Laverne Antoineayo on 03-11-2025 RBC (Bld) [#/Vol] 3.65 10*6/uL Low 4.2-5.4 [facility] Serum creatinine measurement (mass/volume)Ordered By: Laverne Lea on 03-11-2025 Creatinine [Mass/Vol] 1.00 mg/dL 0.70-1.20 [facility] Serum glucose measurement (m ass/volume)Ordered By: Laverne Lea on 03-11-2025 Glucose [Mass/Vol] 131 mg/dL High 70-99 [facility] Serum or plasma calcium inga urement (mass/volume)Ordered By: Laverne Lea on 03-11-2025 Calcium [Mass/Vol] 9.6 mg/dL 7.6-11.0 [facility] Serum or plasma urea nitroge n measurement (mass/volume)Ordered By: Laverne Lea on 03-11-2025 Urea nitrogen [Mass/Vol] 22 mg/dL High 4-19 [facility] Sodium levelOrdered By: Antonette ernesto Leonora on 03-11-2025 Sodium [Moles/Vol] 140 mmol/L 133-145 [facility] White blood cell (WBC) count Ordered By: Laverne Lea on 03-11-2025 WBC (Bld) [#/Vol] 7.7 10*3/uL 4.4-11.0 [facility] Absolute lymphocyte countOrd ered By: Laverne Lea on 03-06-2025 Lymphocytes Auto (Unsp spec) [#/Vol] 1.67 10*3/uL 0.83-4.51 [facility] Anion gap in Serum or Plasma Ordered By: Laverne Lea on 03-06-2025 Anion gap [Moles/Vol] 11 mmol/L 5-15 [facility] Automated lymphocyte count a s percentage of total leukocytesOrdered By: Laverne Lea on 03-06-2025 Lymphocytes/100 WBC Auto (Unsp spec) 24.9 % 19-41 [facility] BUN/creatinine ratioOrdered By: Laverne Lea on 03-06-2025 Urea nitrogen/Creatinine [Mass ratio] 19.5 mg/mg 10-20 [facility] Basophil percentageOrdered B y: Laverne Lea on 03-06-2025 Basophils/100 WBC (Bld) 0.4 % 0-1 [facility] Carbon dioxide, total [Moles /volume] in Central venous bloodOrdered By: Laverne Lea on 03-06-2025 CO2 [Moles/Vol] 22.4 mmol/L 21.0-32.0 [facility] Chloride assayOrdered By: Leonora Lea on 03-06-2025 Chloride [Moles/Vol] 100 mmol/L 98-108 [facility] Eosinophil percentageOrdered By: Laverne Lea on 03-06-2025 Eosinophils/100 WBC (Bld) 0.4 % 0-5 [facility] Erythrocyte distribution wid th ratioOrdered By: beverly Lea on 03-06-2025 Erythrocyte distribution width (RBC) [Ratio] 12.4 % 11.6-14.6 [facility] Erythrocyte distribution wid th standard deviationOrdered By: fatougreenwoodnate Lea on 03-06-2025 Erythrocyte distribution width (RBC) [Ratio] 41.1 fl 35.1-43.9 [facility] Glomerular filtration rate ( GFR) estimation/1.73 sq m using serum, plasma, or whole bOrdered By: Laverne Lea on 03-06-2025 GFR/1.73 sq M.predicted among non-blacks MDRD (S/P/Bld) [Vol rate/Area] 60 mL/min/{1.73_m2} >60 [facility] Hematocrit Auto (Bld) [Volum e fraction]Ordered By: Laverne Lea on 03-06-2025 Hematocrit (Bld) [Volume fraction] 33.8 % Low 37-47 [facility] Hemoglobin measurementOrdere d By: Laverne Lea on 03-06-2025 Hemoglobin (Bld) [Mass/Vol] 11.4 g/dL Low 12.0-15.0 [facility] Immature granulocytes/100 WB C Auto (Bld)Ordered By: Laverne Lea on 03-06-2025 Immature granulocytes/100 WBC (Bld) 0.300 % 0.0-0.9 [facility] MCV (mean corpuscular volume ) determinationOrdered By: Laverne Lea on 03-06-2025 MCV (RBC) [Entitic vol] 90.1 fL 81-99 [facility] Mean corpuscular hemoglobin (MCH) determinationOrdered By: Laverne Lea on 03-06-2025 MCH (RBC) [Entitic mass] 30.4 pg 27.0-32.0 [facility] Monocyte percentageOrdered B y: Laverne Lea on 03-06-2025 Monocytes/100 WBC (Bld) 8.9 % 0-10 [facility] Neutrophil percentageOrdered By: Laverne Lea on 03-06-2025 Neutrophils/100 WBC (Bld) 65.1 % 47-70 [facility] Platelet countOrdered By: Leonora Lea on 03-06-2025 Platelets (Bld) [#/Vol] 196 10*3/uL 150-450 [facility] Potassium measurement (mass/ volume)Ordered By: Laverne Lea on 03-06-2025 Potassium (Unsp spec) [Mass/Vol] 4.2 mmol/L 3.3-5.1 [facility] RBC Auto (Bld) [#/Vol]Ordere d By: Laverne Lea on 03-06-2025 RBC (Bld) [#/Vol] 3.75 10*6/uL Low 4.2-5.4 [facility] Serum creatinine measurement (mass/volume)Ordered By: Laverne Lea on 03-06-2025 Creatinine [Mass/Vol] 0.95 mg/dL 0.70-1.20 [facility] Serum glucose measurement (m ass/volume)Ordered By: Laverne Lea on 03-06-2025 Glucose [Mass/Vol] 143 mg/dL High 70-99 [facility] Serum or plasma calcium inga urement (mass/volume)Ordered By: Laverne Lea on 03-06-2025 Calcium [Mass/Vol] 9.1 mg/dL 7.6-11.0 [facility] Serum or plasma urea nitroge n measurement (mass/volume)Ordered By: Laverne Lea on 03-06-2025 Urea nitrogen [Mass/Vol] 19 mg/dL 4-19 [facility] Sodium levelOrdered By: Antonette ernesto Leonora on 03-06-2025 Sodium [Moles/Vol] 133 mmol/L 133-145 [facility] White blood cell (WBC) count Ordered By: Laverne Lea on 03-06-2025 WBC (Bld) [#/Vol] 6.7 10*3/uL 4.4-11.0 [facility] Gram stainOrdered By: Garett Jones on 03-04-2025 Microscopic observation Gram stain Nom (Unsp spec) [facility] Absolute lymphocyte countOrd ered By: Laverne Lea on 02-11-2025 Lymphocytes Auto (Unsp spec) [#/Vol] 3.25 10*3/uL 0.83-4.51 [facility] Absolute neutrophil countOrd ered By: Laverne Lea on 02-11-2025 Neutrophils (Bld) [#/Vol] 3.2 10*3/uL 2.0-7.7 [facility] Anion gap in Serum or Plasma Ordered By: Laverne Lea on 02-11-2025 Anion gap [Moles/Vol] 11 mmol/L 5-15 [facility] Automated lymphocyte count a s percentage of total leukocytesOrdered By: Laverne Lea on 02-11-2025 Lymphocytes/100 WBC Auto (Unsp spec) 45.2 % High 19-41 [facility] BUN/creatinine ratioOrdered By: Laverne Lea on 02-11-2025 Urea nitrogen/Creatinine [Mass ratio] 20.8 mg/mg High 10-20 [facility] Basophil percentageOrdered B y: Laverne Lea on 02-11-2025 Basophils/100 WBC (Bld) 0.7 % 0-1 [facility] Carbon dioxide, total [Moles /volume] in Central venous bloodOrdered By: Laverne Lea on 02-11-2025 CO2 [Moles/Vol] 23.4 mmol/L 21.0-32.0 [facility] Chloride assayOrdered By: Leonora Lea on 02-11-2025 Chloride [Moles/Vol] 106 mmol/L 98-108 [facility] Eosinophil percentageOrdered By: Laverne Lea on 02-11-2025 Eosinophils/100 WBC (Bld) 1.9 % 0-5 [facility] Erythrocyte distribution wid th ratioOrdered By: Laverne Lea on 02-11-2025 Erythrocyte distribution width (RBC) [Ratio] 12.4 % 11.6-14.6 [facility] Erythrocyte distribution wid th standard deviationOrdered By: Laverne Lea on 02-11-2025 Erythrocyte distribution width (RBC) [Ratio] 42.6 fl 35.1-43.9 [facility] Glomerular filtration rate ( GFR) estimation/1.73 sq m using serum, plasma, or whole bOrdered By: Laverne Lea on 02-11-2025 GFR/1.73 sq M.predicted among non-blacks MDRD (S/P/Bld) [Vol rate/Area] 61 mL/min/{1.73_m2} >60 [facility] Comment on above: mL/min/1.73m2 CKD-EP I Creatinine Equation (2020) Hematocrit Auto (Bld) [Volum e fraction]Ordered By: Laverne Lea on 02-11-2025 Hematocrit (Bld) [Volume fraction] 33.6 % Low 37-47 [facility] Hemoglobin A1c percentageOrd ered By: Laverne Lea on 02-11-2025 HbA1c (Bld) [Mass fraction] 7.3 % High <5.7 [facility] Comment on above: Normal < 5.7 % Predi abetic 5.7 - 6.4 % Diabetic >or= 6.5 % Please note range changes. Hemoglobin measurementOrdere d By: Lavrene Lea on 02-11-2025 Hemoglobin (Bld) [Mass/Vol] 11.0 g/dL Low 12.0-15.0 [facility] Immature granulocytes/100 WB C Auto (Bld)Ordered By: Laverne Lea on 02-11-2025 Immature granulocytes/100 WBC (Bld) 0.300 % 0.0-0.9 [facility] Comment on above: IG% - Immature Granu locytes (promyelocytes, myelocytes and metamyelocytes) > 1% indicates that a LEFT SHIFT is Present. MCV (mean corpuscular volume ) determinationOrdered By: Leonorabeverly Lea on 02-11-2025 MCV (RBC) [Entitic vol] 93.9 fL 81-99 [facility] Mean corpuscular hemoglobin (MCH) determinationOrdered By: [facility] Moralezayo on 02-11-2025 MCH (RBC) [Entitic mass] 30.7 pg 27.0-32.0 [facility] Mean corpuscular hemoglobin concentration (MCHC) determinationOrdered By: [facility] Hospital[facility] Le[facility] on 02-11-2025 MCHC (RBC) [Mass/Vol] 32.7 g/dL 32-36 [facility] Mean platelet volume determi nationOrdered By: beverly Lea on 02-11-2025 Platelet mean volume (Bld) [Entitic vol] 10.1 fL 6.2-12.0 [facility] Monocyte percentageOrdered B y: Vinhnate Moraleznetoayo on 02-11-2025 Monocytes/100 WBC (Bld) 7.0 % 0-10 [facility] Neutrophil percentageOrdered By: [facility] Leonora on 02-11-2025 Neutrophils/100 WBC (Bld) 44.9 % Low 47-70 [facility] Nucleated red blood cell per centageOrdered By: beverly Lea on 02-11-2025 Nucleated RBC/100 WBC (Bld) [Ratio] 0 % 0-5 [facility] Platelet countOrdered By: katienate Moraleznetoayo on 02-11-2025 Platelets (Bld) [#/Vol] 225 10*3/uL 150-450 [facility] Potassium measurement (mass/ volume)Ordered By: beverly Lea on 02-11-2025 Potassium (Unsp spec) [Mass/Vol] 3.8 mmol/L 3.3-5.1 [facility] RBC Auto (Bld) [#/Vol]Ordere d By: Laverne Lea on 02-11-2025 RBC (Bld) [#/Vol] 3.58 10*6/uL Low 4.2-5.4 [facility] Serum creatinine measurement (mass/volume)Ordered By: Laverne Lea on 02-11-2025 Creatinine [Mass/Vol] 0.93 mg/dL 0.70-1.20 [facility] Serum glucose measurement (m ass/volume)Ordered By: Laverne Lea on 02-11-2025 Glucose [Mass/Vol] 191 mg/dL High 70-99 [facility] Serum or plasma calcium inga urement (mass/volume)Ordered By: Laverne Lea on 02-11-2025 Calcium [Mass/Vol] 9.4 mg/dL 7.6-11.0 [facility] Serum or plasma urea nitroge n measurement (mass/volume)Ordered By: Laverne Lea on 02-11-2025 Urea nitrogen [Mass/Vol] 19 mg/dL 4-19 [facility] Sodium levelOrdered By: Antonette carvalholashay Leonora on 02-11-2025 Sodium [Moles/Vol] 140 mmol/L 133-145 [facility] White blood cell (WBC) count Ordered By: Laverne Lea on 02-11-2025 WBC (Bld) [#/Vol] 7.2 10*3/uL 4.4-11.0 [facility] TSH DL <= 0.005 mIU/L QnOrde red By: Laverne Lea on 02-04-2025 TSH Qn 1.570 uIU/mL 0.300-4.200 [facility] Absolute lymphocyte countOrd ered By: Laverne Lea on 01-14-2025 Lymphocytes Auto (Unsp spec) [#/Vol] 3.03 10*3/uL 0.83-4.51 [facility] Absolute neutrophil countOrd ered By: Laverne Lea on 01-14-2025 Neutrophils (Bld) [#/Vol] 3.7 10*3/uL 2.0-7.7 [facility] Anion gap in Serum or Plasma Ordered By: Laverne Lea on 01-14-2025 Anion gap [Moles/Vol] 11 mmol/L 5-15 [facility] Automated lymphocyte count a s percentage of total leukocytesOrdered By: Laverne Lea on 01-14-2025 Lymphocytes/100 WBC Auto (Unsp spec) 40.3 % 19-41 [facility] BUN/creatinine ratioOrdered By: Antonettegreenwoodnate Lea on 01-14-2025 Urea nitrogen/Creatinine [Mass ratio] 20.4 mg/mg High 10-20 [facility] Basophil percentageOrdered B y: Laverne Lea on 01-14-2025 Basophils/100 WBC (Bld) 0.4 % 0-1 [facility] Carbon dioxide, total [Moles /volume] in Central venous bloodOrdered By: fatougreenwoodnate Lea on 01-14-2025 CO2 [Moles/Vol] 23.1 mmol/L 21.0-32.0 [facility] Chloride assayOrdered By: Leonora Lea on 01-14-2025 Chloride [Moles/Vol] 104 mmol/L 98-108 [facility] Eosinophil percentageOrdered By: fatougreenwoodnate Lea on 01-14-2025 Eosinophils/100 WBC (Bld) 1.3 % 0-5 [facility] Erythrocyte distribution wid th ratioOrdered By: fatougreenwoodnate Lea on 01-14-2025 Erythrocyte distribution width (RBC) [Ratio] 12.0 % 11.6-14.6 [facility] Erythrocyte distribution wid th standard deviationOrdered By: fatougreenwoodnate Lea on 01-14-2025 Erythrocyte distribution width (RBC) [Ratio] 41.0 fl 35.1-43.9 [facility] Glomerular filtration rate ( GFR) estimation/1.73 sq m using serum, plasma, or whole bOrdered By: Laverne Lea on 01-14-2025 GFR/1.73 sq M.predicted among non-blacks MDRD (S/P/Bld) [Vol rate/Area] 66 mL/min/{1.73_m2} >60 [facility] Comment on above: mL/min/1.73m2 CKD-EP I Creatinine Equation (2020) Hematocrit Auto (Bld) [Volum e fraction]Ordered By: Laverne Lae on 01-14-2025 Hematocrit (Bld) [Volume fraction] 31.3 % Low 37-47 [facility] Hemoglobin measurementOrdere d By: Laverne Lea on 01-14-2025 Hemoglobin (Bld) [Mass/Vol] 10.5 g/dL Low 12.0-15.0 [facility] Immature granulocytes/100 WB C Auto (Bld)Ordered By: Laverne Lea on 01-14-2025 Immature granulocytes/100 WBC (Bld) 0.100 % 0.0-0.9 [facility] Comment on above: IG% - Immature Granu locytes (promyelocytes, myelocytes and metamyelocytes) > 1% indicates that a LEFT SHIFT is Present. MCV (mean corpuscular volume ) determinationOrdered By: Laverne Lea on 01-14-2025 MCV (RBC) [Entitic vol] 94.0 fL 81-99 [facility] Mean corpuscular hemoglobin (MCH) determinationOrdered By: fatougreenwoodnate Lea on 01-14-2025 MCH (RBC) [Entitic mass] 31.5 pg 27.0-32.0 [facility] Mean corpuscular hemoglobin concentration (MCHC) determinationOrdered By: Laverne Lea on 01-14-2025 MCHC (RBC) [Mass/Vol] 33.5 g/dL 32-36 [facility] Mean platelet volume determi nationOrdered By: Laverne Lea on 01-14-2025 Platelet mean volume (Bld) [Entitic vol] 10.3 fL 6.2-12.0 [facility] Monocyte percentageOrdered B y: Laverne Lea on 01-14-2025 Monocytes/100 WBC (Bld) 8.4 % 0-10 [facility] Neutrophil percentageOrdered By: Laverne Lea on 01-14-2025 Neutrophils/100 WBC (Bld) 49.5 % 47-70 [facility] Nucleated red blood cell per centageOrdered By: Laverne Lea on 01-14-2025 Nucleated RBC/100 WBC (Bld) [Ratio] 0 % 0-5 [facility] Platelet countOrdered By: Leonora Lea on 01-14-2025 Platelets (Bld) [#/Vol] 219 10*3/uL 150-450 [facility] Potassium measurement (mass/ volume)Ordered By: Laverne Lea on 01-14-2025 Potassium (Unsp spec) [Mass/Vol] 4.2 mmol/L 3.3-5.1 [facility] RBC Auto (Bld) [#/Vol]Ordere d By: Laverne Lea on 01-14-2025 RBC (Bld) [#/Vol] 3.33 10*6/uL Low 4.2-5.4 [facility] Serum creatinine measurement (mass/volume)Ordered By: Laverne Kirtesvin on 01-14-2025 Creatinine [Mass/Vol] 0.88 mg/dL 0.70-1.20 [facility] Serum glucose measurement (m ass/volume)Ordered By: Laverne Kirtesvin on 01-14-2025 Glucose [Mass/Vol] 148 mg/dL High 70-99 [facility] Serum or plasma calcium inga urement (mass/volume)Ordered By: Laverne Kirtesvin on 01-14-2025 Calcium [Mass/Vol] 9.5 mg/dL 7.6-11.0 [facility] Serum or plasma urea nitroge n measurement (mass/volume)Ordered By: Leonorafatouernesto Kirtesvin on 01-14-2025 Urea nitrogen [Mass/Vol] 18 mg/dL 4-19 [facility] Sodium levelOrdered By: Antonette Lea on 01-14-2025 Sodium [Moles/Vol] 138 mmol/L 133-145 [facility] White blood cell (WBC) count Ordered By: Leonorafatouernesto Kirtesvin on 01-14-2025 WBC (Bld) [#/Vol] 7.5 10*3/uL 4.4-11.0 [facility] Absolute lymphocyte countOrd ered By: Laverne Kirtnetoayo on 01-10-2025 Lymphocytes Auto (Unsp spec) [#/Vol] 3.42 10*3/uL 0.83-4.51 [facility] Absolute neutrophil countOrd ered By: Vinhnate Moralezesvin on 01-10-2025 Neutrophils (Bld) [#/Vol] 2.7 10*3/uL 2.0-7.7 [facility] Automated lymphocyte count a s percentage of total leukocytesOrdered By: Laverne Moraleznetoayo on 01-10-2025 Lymphocytes/100 WBC Auto (Unsp spec) 50.3 % High 19-41 [facility] Basophil percentageOrdered B y: Leonorakatientae Lea on 01-10-2025 Basophils/100 WBC (Bld) 0.6 % 0-1 [facility] Eosinophil percentageOrdered By: beverly Lea on 01-10-2025 Eosinophils/100 WBC (Bld) 2.1 % 0-5 [facility] Erythrocyte distribution wid th ratioOrdered By: Laverne Lea on 01-10-2025 Erythrocyte distribution width (RBC) [Ratio] 11.9 % 11.6-14.6 [facility] Erythrocyte distribution wid th standard deviationOrdered By: fatougreenwoodnate Moraleznetoayo on 01-10-2025 Erythrocyte distribution width (RBC) [Ratio] 40.2 fl 35.1-43.9 [facility] Hematocrit Auto (Bld) [Volum e fraction]Ordered By: Laverne Lea on 01-10-2025 Hematocrit (Bld) [Volume fraction] 32.1 % Low 37-47 [facility] Hemoglobin measurementOrdere d By: Laverne Lea on 01-10-2025 Hemoglobin (Bld) [Mass/Vol] 10.8 g/dL Low 12.0-15.0 [facility] Immature granulocytes/100 WB C Auto (Bld)Ordered By: Laverne Lea on 01-10-2025 Immature granulocytes/100 WBC (Bld) 0.000 % 0.0-0.9 [facility] Comment on above: IG% - Immature Granu locytes (promyelocytes, myelocytes and metamyelocytes) > 1% indicates that a LEFT SHIFT is Present. MCV (mean corpuscular volume ) determinationOrdered By: Laverne Oleghe on 01-10-2025 MCV (RBC) [Entitic vol] 93.0 fL 81-99 [facility] Mean corpuscular hemoglobin (MCH) determinationOrdered By: Efewongbe Kirtghe on 01-10-2025 MCH (RBC) [Entitic mass] 31.3 pg 27.0-32.0 [facility] Mean corpuscular hemoglobin concentration (MCHC) determinationOrdered By: Effatouongbe Elinae on 01-10-2025 MCHC (RBC) [Mass/Vol] 33.6 g/dL 32-36 [facility] Mean platelet volume determi nationOrdered By: Effatouongbe Elinae on 01-10-2025 Platelet mean volume (Bld) [Entitic vol] 10.1 fL 6.2-12.0 [facility] Monocyte percentageOrdered B y: Effatouongbe Elinae on 01-10-2025 Monocytes/100 WBC (Bld) 6.9 % 0-10 [facility] Neutrophil percentageOrdered By: Effatouongbe Elinae on 01-10-2025 Neutrophils/100 WBC (Bld) 40.1 % Low 47-70 [facility] Nucleated red blood cell per centageOrdered By: Effatouongbe Elinae on 01-10-2025 Nucleated RBC/100 WBC (Bld) [Ratio] 0 % 0-5 [facility] Platelet countOrdered By: Ef fatouongbe Elinae on 01-10-2025 Platelets (Bld) [#/Vol] 223 10*3/uL 150-450 [facility] RBC Auto (Bld) [#/Vol]Ordere d By: Effatouongbe Elinae on 01-10-2025 RBC (Bld) [#/Vol] 3.45 10*6/uL Low 4.2-5.4 [facility] White blood cell (WBC) count Ordered By: Antonetteongbe Kirtghe on 01-10-2025 WBC (Bld) [#/Vol] 6.8 10*3/uL 4.4-11.0 [facility] TSH DL <= 0.005 mIU/L QnOrde red By: Laverne Lea on 12-24-2024 Thyroid Stimulating Hormone (TSH) 2.070 uIU/mL 0.300-4.200 [facility] TSH Qn 2.070 uIU/mL 0.300-4.200 [facility] Absolute lymphocyte countOrd ered By: Laverne Lea on 12-10-2024 Lymphocytes Auto (Unsp spec) [#/Vol] 3.05 10*3/uL 0.83-4.51 [facility] Absolute neutrophil countOrd ered By: Laverne Lea on 12-10-2024 Neutrophils (Bld) [#/Vol] 2.7 10*3/uL 2.0-7.7 [facility] Anion gap in Serum or Plasma Ordered By: Laverne Lea on 12-10-2024 Anion gap [Moles/Vol] 11 mmol/L 5-15 [facility] Automated lymphocyte count a s percentage of total leukocytesOrdered By: Laverne Lea on 12-10-2024 Lymphocytes/100 WBC Auto (Unsp spec) 48.1 % High 19-41 [facility] BUN/creatinine ratioOrdered By: Laverne Lea on 12-10-2024 Urea nitrogen/Creatinine [Mass ratio] 21.8 mg/mg High 10-20 [facility] Basophil percentageOrdered B y: Laverne Lea on 12-10-2024 Basophils/100 WBC (Bld) 0.6 % 0-1 [facility] Carbon dioxide, total [Moles /volume] in Central venous bloodOrdered By: Laverne Lea on 12-10-2024 CO2 [Moles/Vol] 22.1 mmol/L 21.0-32.0 [facility] Chloride assayOrdered By: Leonora Lea on 12-10-2024 Chloride [Moles/Vol] 107 mmol/L 98-108 [facility] Eosinophil percentageOrdered By: Laverne Lea on 12-10-2024 Eosinophils/100 WBC (Bld) 1.3 % 0-5 [facility] Erythrocyte distribution wid th (RBC) [Ratio]Ordered By: Laverne Lea on 12-10-2024 Erythrocyte distribution width (RBC) [Entitic vol] 39.8 fL 35.1-43.9 [facility] Erythrocyte distribution wid th ratioOrdered By: Laverne Lea on 12-10-2024 Erythrocyte distribution width (RBC) [Ratio] 11.8 % 11.6-14.6 [facility] Erythrocyte distribution wid th standard deviationOrdered By: Laverne Lea on 12-10-2024 Erythrocyte distribution width (RBC) [Ratio] 39.8 fl 35.1-43.9 [facility] GFR/1.73 sq M.predicted dwain g non-blacks MDRD (S/P/Bld) [Vol rate/Area]Ordered By: Laverne Lea on 12-10-2024 Estimated GFR (MDRD) Non-Af Amer 64 >60 [facility] Comment on above: mL/min/1.73m2 CKD-EP I Creatinine Equation (2020) Glomerular filtration rate ( GFR) estimation/1.73 sq m using serum, plasma, or whole bOrdered By: Laverne Lea on 12-10-2024 GFR/1.73 sq M.predicted among non-blacks MDRD (S/P/Bld) [Vol rate/Area] 64 mL/min/{1.73_m2} >60 [facility] Comment on above: mL/min/1.73m2 CKD-EP I Creatinine Equation (2020) Hematocrit Auto (Bld) [Volum e fraction]Ordered By: Laverne Lea on 12-10-2024 Hematocrit (Bld) [Volume fraction] 33.6 % Low 37-47 [facility] Hemoglobin measurementOrdere d By: Laverne Lea on 12-10-2024 Hemoglobin (Bld) [Mass/Vol] 11.4 g/dL Low 12.0-15.0 [facility] Immature granulocytes/100 WB C Auto (Bld)Ordered By: Laverne Lea on 12-10-2024 Immature granulocytes/100 WBC (Bld) 0.200 % 0.0-0.9 [facility] Comment on above: IG% - Immature Granu locytes (promyelocytes, myelocytes and metamyelocytes) > 1% indicates that a LEFT SHIFT is Present. Lymphocytes Auto (Unsp spec) [#/Vol]Ordered By: Laverne Lea on 12-10-2024 Lymphocytes (Bld) [#/Vol] 3.05 10*3/uL 0.83-4.51 [facility] Lymphocytes/100 WBC Auto (Un sp spec)Ordered By: Laverne Lea on 12-10-2024 Lymphocytes/100 WBC (Bld) 48.1 % High 19-41 [facility] MCV (mean corpuscular volume ) determinationOrdered By: Laverne Lea on 12-10-2024 MCV (RBC) [Entitic vol] 92.6 fL 81-99 [facility] Mean corpuscular hemoglobin (MCH) determinationOrdered By: Laverne Lea on 12-10-2024 MCH (RBC) [Entitic mass] 31.4 pg 27.0-32.0 [facility] Mean corpuscular hemoglobin concentration (MCHC) determinationOrdered By: Laverne Lae on 12-10-2024 MCHC (RBC) [Mass/Vol] 33.9 g/dL 32-36 [facility] Mean platelet volume determi nationOrdered By: Laverne Lea on 12-10-2024 Platelet mean volume (Bld) [Entitic vol] 9.7 fL 6.2-12.0 [facility] Monocyte percentageOrdered B y: Laverne Lea on 12-10-2024 Monocytes/100 WBC (Bld) 7.1 % 0-10 [facility] Neutrophil percentageOrdered By: Laverne Lea on 12-10-2024 Neutrophils/100 WBC (Bld) 42.7 % Low 47-70 [facility] Nucleated red blood cell per centageOrdered By: Laverne Lea on 12-10-2024 Nucleated RBC/100 WBC (Bld) [Ratio] 0 % 0-5 [facility] Platelet countOrdered By: Leonora Lea on 12-10-2024 Platelets (Bld) [#/Vol] 220 10*3/uL 150-450 [facility] Potassium (Unsp spec) [Mass/ Vol]Ordered By: Laverne Lea on 12-10-2024 Potassium [Moles/Vol] 4.1 mmol/L 3.3-5.1 [facility] Potassium measurement (mass/ volume)Ordered By: Laverne Lea on 12-10-2024 Potassium (Unsp spec) [Mass/Vol] 4.1 mmol/L 3.3-5.1 [facility] RBC Auto (Bld) [#/Vol]Ordere d By: Antonettenaginate Lea on 12-10-2024 RBC (Bld) [#/Vol] 3.63 10*6/uL Low 4.2-5.4 [facility] Serum creatinine measurement (mass/volume)Ordered By: Laverne Lea on 12-10-2024 Creatinine [Mass/Vol] 0.90 mg/dL 0.70-1.20 [facility] Serum glucose measurement (m ass/volume)Ordered By: Laverne Lea on 12-10-2024 Glucose [Mass/Vol] 86 mg/dL 70-99 [facility] Serum or plasma calcium inga urement (mass/volume)Ordered By: Laverne Lea on 12-10-2024 Calcium [Mass/Vol] 9.5 mg/dL 7.6-11.0 [facility] Serum or plasma urea nitroge n measurement (mass/volume)Ordered By: Laverne Lea on 12-10-2024 Urea nitrogen [Mass/Vol] 20 mg/dL High 4-19 [facility] Sodium levelOrdered By: Antonette ernesto Leonora on 12-10-2024 Sodium [Moles/Vol] 140 mmol/L 133-145 [facility] White blood cell (WBC) count Ordered By: Laverne Lea on 12-10-2024 WBC (Bld) [#/Vol] 6.3 10*3/uL 4.4-11.0 [facility] Absolute lymphocyte countOrd ered By: Laverne Lea on 11-12-2024 Lymphocytes Auto (Unsp spec) [#/Vol] 5.06 10*3/uL High 0.83-4.51 [facility] Absolute neutrophil countOrd ered By: Laverne Lea on 11-12-2024 Neutrophils (Bld) [#/Vol] 3.8 10*3/uL 2.0-7.7 [facility] Automated lymphocyte count a s percentage of total leukocytesOrdered By: Laverne Lea on 11-12-2024 Lymphocytes/100 WBC Auto (Unsp spec) 52.6 % High 19-41 [facility] Basophil percentageOrdered B y: Laverne Lea on 11-12-2024 Basophils/100 WBC (Bld) 0.5 % 0-1 [facility] Blood urea nitrogen (BUN)/cr eatinine ratioOrdered By: fatougreenwoodnate Lea on 11-12-2024 Urea nitrogen/Creatinine [Mass ratio] 15.0 mg/mg 10-20 [facility] Carbon dioxide measurementOr dered By: [facility] on 11-12-2024 CO2 [Moles/Vol] 25.0 mmol/L 21.0-32.0 [facility] Chloride measurementOrdered By: [facility] Hospital[facility] on 11-12-2024 Chloride [Moles/Vol] 108 mmol/L High 98-107 [facility] Eosinophil percentageOrdered By: Laverne Lea on 11-12-2024 Eosinophils/100 WBC (Bld) 1.4 % 0-5 [facility] Erythrocyte distribution wid th (RBC) [Ratio]Ordered By: Laverne Lea on 11-12-2024 Erythrocyte distribution width (RBC) [Entitic vol] 42.1 fL 35.1-43.9 [facility] Erythrocyte distribution wid th ratioOrdered By: fatougreenwoodnate Lea on 11-12-2024 Erythrocyte distribution width (RBC) [Ratio] 12.1 % 11.6-14.6 [facility] Erythrocyte distribution wid th standard deviationOrdered By: fatougreenwoodnate Lea on 11-12-2024 Erythrocyte distribution width (RBC) [Ratio] 42.1 fl 35.1-43.9 [facility] Estimated glomerular filtrat ion rate (GFR) AmericanOrdered By: Laverne Lea on 11-12-2024 Estimated GFR (MDRD) Amer 68 mL/min >60 [facility] Comment on above: GFR Calc Glomerular filtration rate ( GFR) estimationOrdered By: Laverne Lea on 11-12-2024 Estimated GFR (MDRD) Non-Af Amer 56 mL/min Low >60 [facility] Comment on above: Non- GFR Calc GFR/1.73 sq M.predicted among non-blacks MDRD (S/P/Bld) [Vol rate/Area] 56 mL/min/{1.73_m2} Low >60 [facility] Comment on above: Non- GFR Calc Glucose measurementOrdered B y: Laverne Lea on 11-12-2024 Glucose [Mass/Vol] 130 mg/dL High 74-106 [facility] Comment on above: Fasting Glucose resu lt greater than or equal to 126 mg/dL suggests DIABETES MELLITUS per A.D.A. criteria. Hematocrit Auto (Bld) [Volum e fraction]Ordered By: Laverne Lea on 11-12-2024 Hematocrit (Bld) [Volume fraction] 38.9 % 37-47 [facility] Hemoglobin A1c percentageOrd ered By: Laverne Lea on 11-12-2024 HbA1c (Bld) [Mass fraction] 7.2 % High 3.8-5.6 [facility] Comment on above: Normal < 5.7 % Predi abetic 5.7 - 6.4 % Diabetic >or= 6.5 % Please note range changes. Hemoglobin measurementOrdere d By: Laverne Lea on 11-12-2024 Hemoglobin (Bld) [Mass/Vol] 12.7 g/dL 12.0-15.0 [facility] Immature granulocytes/100 WB C Auto (Bld)Ordered By: Laverne Lea on 11-12-2024 Immature granulocytes/100 WBC (Bld) 0.200 % 0.0-0.9 [facility] Comment on above: IG% - Immature Granu locytes (promyelocytes, myelocytes and metamyelocytes) > 1% indicates that a LEFT SHIFT is Present. Lymphocytes Auto (Unsp spec) [#/Vol]Ordered By: Laverne Lea on 11-12-2024 Lymphocytes (Bld) [#/Vol] 5.06 10*3/uL High 0.83-4.51 [facility] Lymphocytes/100 WBC Auto (Un sp spec)Ordered By: Laverne Lea on 11-12-2024 Lymphocytes/100 WBC (Bld) 52.6 % High 19-41 [facility] MCV (mean corpuscular volume ) determinationOrdered By: Laverne Lea on 11-12-2024 MCV (RBC) [Entitic vol] 94.2 fL 81-99 [facility] Mean corpuscular hemoglobin (MCH) determinationOrdered By: Laverne Lea on 11-12-2024 MCH (RBC) [Entitic mass] 30.8 pg 27.0-32.0 [facility] Mean corpuscular hemoglobin concentration (MCHC) determinationOrdered By: Laverne Lea on 11-12-2024 MCHC (RBC) [Mass/Vol] 32.6 g/dL 32-36 [facility] Mean platelet volume determi nationOrdered By: Laverne Lea on 11-12-2024 Platelet mean volume (Bld) [Entitic vol] 9.7 fL 6.2-12.0 [facility] Monocyte percentageOrdered B y: Laverne Lea on 11-12-2024 Monocytes/100 WBC (Bld) 5.7 % 0-10 [facility] Neutrophil percentageOrdered By: Laverne Lea on 11-12-2024 Neutrophils/100 WBC (Bld) 39.6 % Low 47-70 [facility] Nucleated red blood cell per centageOrdered By: Laverne Lea on 11-12-2024 Nucleated RBC/100 WBC (Bld) [Ratio] 0 % 0-5 [facility] Platelet countOrdered By: Loenora Lea on 11-12-2024 Platelets (Bld) [#/Vol] 302 10*3/uL 150-450 [facility] Potassium measurementOrdered By: Laverne Lea on 11-12-2024 Potassium [Moles/Vol] 4.2 mmol/L 3.5-5.1 [facility] RBC Auto (Bld) [#/Vol]Ordere d By: Laverne Moraleznetoayo on 11-12-2024 RBC (Bld) [#/Vol] 4.13 10*6/uL Low 4.2-5.4 [facility] Reactive lymphocyte countOrd ered By: Laverne Moraleznetoayo on 11-12-2024 Reactive Lymphocytes 1+ [facility] Serum anion gap measurementO rdered By: Laverne Lea on 11-12-2024 Anion gap [Moles/Vol] 7 mmol/L 5-15 [facility] Serum or plasma calcium inga urement (mass/volume)Ordered By: Laverne Lea on 11-12-2024 Calcium [Mass/Vol] 9.7 mg/dL 8.5-10.1 [facility] Serum or plasma creatinine m easurement (mass/volume)Ordered By: Laverne Lea on 11-12-2024 Creatinine [Mass/Vol] 1.00 mg/dL 0.55-1.02 [facility] Comment on above: The validity of the calculated GFR & GFRAA in patients over 70 years has not been determined. Clinical correlation is essential. Serum or plasma thyroid stim ulating hormone (TSH) measurement (units/volume)Ordered By: Laverne Lea on 11-12-2024 TSH Qn 3.410 uIU/mL 0.358-3.740 [facility] Serum or plasma urea nitroge n measurement (mass/volume)Ordered By: Laverne Lea on 11-12-2024 Urea nitrogen [Mass/Vol] 15 mg/dL 7-18 [facility] [facility] Sodium levelOrdered By: Antonette carvalholashay Leonora on 11-12-2024 Sodium [Moles/Vol] 140 mmol/L 136-145 [facility] TSH QnOrdered By: Laverne Moraleznetoayo on 11-12-2024 Thyroid Stimulating Hormone (TSH) 3.410 uIU/mL 0.358-3.740 [facility] White blood cell (WBC) count Ordered By: Laverne Lea on 11-12-2024 WBC (Bld) [#/Vol] 9.6 10*3/uL 4.4-11.0 [facility] Absolute neutrophil countOrd ered By: Laverne Lea on 10-15-2024 Neutrophils (Bld) [#/Vol] 2.4 10*3/uL 2.0-7.7 [facility] Basophil percentageOrdered B y: Laverne Lea on 10-15-2024 Basophils/100 WBC (Bld) 0.6 % 0-1 [facility] Blood urea nitrogen (BUN)/cr eatinine ratioOrdered By: Laverne Lea on 10-15-2024 Urea nitrogen/Creatinine [Mass ratio] 15.0 mg/mg 10-20 [facility] Carbon dioxide measurementOr dered By: Laverne Lea on 10-15-2024 CO2 [Moles/Vol] 26.0 mmol/L 21.0-32.0 [facility] Chloride measurementOrdered By: Laverne Lea on 10-15-2024 Chloride [Moles/Vol] 109 mmol/L High 98-107 [facility] Eosinophil percentageOrdered By: Laverne Lea on 10-15-2024 Eosinophils/100 WBC (Bld) 1.9 % 0-5 [facility] Erythrocyte distribution wid th (RBC) [Ratio]Ordered By: Laverne Lea on 10-15-2024 Erythrocyte distribution width (RBC) [Entitic vol] 43.3 fL 35.1-43.9 [facility] Erythrocyte distribution wid th ratioOrdered By: Antonettegreenwoodnate Lea on 10-15-2024 Erythrocyte distribution width (RBC) [Ratio] 12.7 % 11.6-14.6 [facility] Estimated glomerular filtrat ion rate (GFR) AmericanOrdered By: Laverne Lea on 10-15-2024 Estimated GFR (MDRD) Amer 74 mL/min >60 [facility] Comment on above: GFR Calc Glomerular filtration rate ( GFR) estimationOrdered By: Laveren Lea on 10-15-2024 Estimated GFR (MDRD) Non-Af Amer 61 mL/min >60 [facility] Comment on above: Non- GFR Calc Glucose measurementOrdered B y: Laverne Lea on 10-15-2024 Glucose [Mass/Vol] 217 mg/dL High 74-106 [facility] Comment on above: Glucose result great er than or equal to 200 mg/dLsuggests DIABETES MELLITUS per A.D.A. criteria. Hematocrit Auto (Bld) [Volum e fraction]Ordered By: Laverne Lea on 10-15-2024 Hematocrit (Bld) [Volume fraction] 32.8 % Low 37-47 [facility] Hemoglobin measurementOrdere d By: Laverne Lea on 10-15-2024 Hemoglobin (Bld) [Mass/Vol] 11.0 g/dL Low 12.0-15.0 [facility] Immature granulocytes/100 WB C Auto (Bld)Ordered By: Laverne Lea on 10-15-2024 Immature granulocytes/100 WBC (Bld) 0.200 % 0.0-0.9 [facility] Comment on above: IG% - Immature Granu locytes (promyelocytes, myelocytes and metamyelocytes) > 1% indicates that a LEFT SHIFT is Present. Lymphocytes Auto (Unsp spec) [#/Vol]Ordered By: Laverne Lea on 10-15-2024 Lymphocytes (Bld) [#/Vol] 3.43 10*3/uL 0.83-4.51 [facility] Lymphocytes/100 WBC Auto (Un sp spec)Ordered By: Laverne Lea on 10-15-2024 Lymphocytes/100 WBC (Bld) 54.1 % High 19-41 [facility] MCV (mean corpuscular volume ) determinationOrdered By: Laverne Lea on 10-15-2024 MCV (RBC) [Entitic vol] 93.4 fL 81-99 [facility] Mean corpuscular hemoglobin (MCH) determinationOrdered By: Laverne Lea on 10-15-2024 MCH (RBC) [Entitic mass] 31.3 pg 27.0-32.0 [facility] Mean corpuscular hemoglobin concentration (MCHC) determinationOrdered By: Laverne Lea on 10-15-2024 MCHC (RBC) [Mass/Vol] 33.5 g/dL 32-36 [facility] Mean platelet volume determi nationOrdered By: Laverne Lea on 10-15-2024 Platelet mean volume (Bld) [Entitic vol] 10.0 fL 6.2-12.0 [facility] Monocyte percentageOrdered B y: Laverne Lea on 10-15-2024 Monocytes/100 WBC (Bld) 6.2 % 0-10 [facility] Neutrophil percentageOrdered By: Laverne Lea on 10-15-2024 Neutrophils/100 WBC (Bld) 37.0 % Low 47-70 [facility] Nucleated red blood cell per centageOrdered By: Laverne Lea on 10-15-2024 Nucleated RBC/100 WBC (Bld) [Ratio] 0 % 0-5 [facility] Platelet countOrdered By: Leonora Lea on 10-15-2024 Platelets (Bld) [#/Vol] 246 10*3/uL 150-450 [facility] Potassium measurementOrdered By: Laverne Lea on 10-15-2024 Potassium [Moles/Vol] 4.1 mmol/L 3.5-5.1 [facility] RBC Auto (Bld) [#/Vol]Ordere d By: Laverne Lea on 10-15-2024 RBC (Bld) [#/Vol] 3.51 10*6/uL Low 4.2-5.4 [facility] Serum anion gap measurementO rdered By: Laverne Lea on 10-15-2024 Anion gap [Moles/Vol] 4 mmol/L Low 5-15 [facility] Serum or plasma calcium inga urement (mass/volume)Ordered By: Laverne Lea on 10-15-2024 Calcium [Mass/Vol] 9.0 mg/dL 8.5-10.1 [facility] Serum or plasma creatinine m easurement (mass/volume)Ordered By: Laverne Lea on 10-15-2024 Creatinine [Mass/Vol] 0.94 mg/dL 0.55-1.02 [facility] Comment on above: The validity of the calculated GFR & GFRAA in patients over 70 years has not been determined. Clinical correlation is essential. Serum or plasma urea nitroge n measurement (mass/volume)Ordered By: Laverne Lea on 10-15-2024 Urea nitrogen [Mass/Vol] 14 mg/dL 7-18 [facility] Sodium levelOrdered By: Antonette carvalholashay Leonora on 10-15-2024 Sodium [Moles/Vol] 139 mmol/L 136-145 [facility] White blood cell (WBC) count Ordered By: Laverne Lea on 10-15-2024 WBC (Bld) [#/Vol] 6.3 10*3/uL 4.4-11.0 [facility] TSH QnOrdered By: Laverne Lea on 10-01-2024 Thyroid Stimulating Hormone (TSH) 2.360 uIU/mL 0.358-3.740 [facility] Potassium measurementOrdered By: Laverne Lea on 09-13-2024 Potassium [Moles/Vol] 4.0 mmol/L 3.5-5.1 [facility] Absolute neutrophil countOrd ered By: Laverne Lea on 09-10-2024 Neutrophils (Bld) [#/Vol] 2.8 10*3/uL 2.0-7.7 [facility] Basophil percentageOrdered B y: Laverne Lea on 09-10-2024 Basophils/100 WBC (Bld) 0.8 % 0-1 [facility] Blood urea nitrogen (BUN)/cr eatinine ratioOrdered By: Laverne Lea on 09-10-2024 Urea nitrogen/Creatinine [Mass ratio] 11.3 mg/mg 10-20 [facility] Carbon dioxide measurementOr dered By: Laverne Lea on 09-10-2024 CO2 [Moles/Vol] 26.0 mmol/L 21.0-32.0 [facility] Chloride measurementOrdered By: Laverne Lea on 09-10-2024 Chloride [Moles/Vol] 108 mmol/L High 98-107 [facility] Eosinophil percentageOrdered By: Laverne Lea on 09-10-2024 Eosinophils/100 WBC (Bld) 1.4 % 0-5 [facility] Erythrocyte distribution wid th (RBC) [Ratio]Ordered By: Laverne Lea on 09-10-2024 Erythrocyte distribution width (RBC) [Entitic vol] 43.9 fL 35.1-43.9 [facility] Erythrocyte distribution wid th ratioOrdered By: beverly Lea on 09-10-2024 Erythrocyte distribution width (RBC) [Ratio] 13.0 % 11.6-14.6 [facility] Estimated glomerular filtrat ion rate (GFR) AmericanOrdered By: Laverne Lea on 09-10-2024 Estimated GFR (MDRD) Amer 70 mL/min >60 [facility] Comment on above: GFR Calc Glomerular filtration rate ( GFR) estimationOrdered By: Laverne Lea on 09-10-2024 Estimated GFR (MDRD) Non-Af Amer 58 mL/min Low >60 [facility] Comment on above: Non- GFR Calc Glucose measurementOrdered B y: Laverne Lea on 09-10-2024 Glucose [Mass/Vol] 210 mg/dL High 74-106 [facility] Comment on above: Glucose result great er than or equal to 200 mg/dLsuggests DIABETES MELLITUS per A.D.A. criteria. Hematocrit Auto (Bld) [Volum e fraction]Ordered By: Laverne Lea on 09-10-2024 Hematocrit (Bld) [Volume fraction] 37.5 % 37-47 [facility] Hemoglobin measurementOrdere d By: Laverne Lea on 09-10-2024 Hemoglobin (Bld) [Mass/Vol] 12.4 g/dL 12.0-15.0 [facility] Immature granulocytes/100 WB C Auto (Bld)Ordered By: beverly Lea on 09-10-2024 Immature granulocytes/100 WBC (Bld) 0.100 % 0.0-0.9 [facility] Comment on above: IG% - Immature Granu locytes (promyelocytes, myelocytes and metamyelocytes) > 1% indicates that a LEFT SHIFT is Present. Lymphocytes Auto (Unsp spec) [#/Vol]Ordered By: Laverne Lea on 09-10-2024 Lymphocytes (Bld) [#/Vol] 4.45 10*3/uL 0.83-4.51 [facility] Lymphocytes/100 WBC Auto (Un sp spec)Ordered By: Laverne Lea on 09-10-2024 Lymphocytes/100 WBC (Bld) 56.8 % High 19-41 [facility] MCV (mean corpuscular volume ) determinationOrdered By: Laverne Lea on 09-10-2024 MCV (RBC) [Entitic vol] 91.5 fL 81-99 [facility] Mean corpuscular hemoglobin (MCH) determinationOrdered By: Laverne Lea on 09-10-2024 MCH (RBC) [Entitic mass] 30.2 pg 27.0-32.0 [facility] Mean corpuscular hemoglobin concentration (MCHC) determinationOrdered By: Laverne Lea on 09-10-2024 MCHC (RBC) [Mass/Vol] 33.1 g/dL 32-36 [facility] Mean platelet volume determi nationOrdered By: Laverne Lea on 09-10-2024 Platelet mean volume (Bld) [Entitic vol] 10.1 fL 6.2-12.0 [facility] Monocyte percentageOrdered B y: Laverne Lea on 09-10-2024 Monocytes/100 WBC (Bld) 4.7 % 0-10 [facility] Neutrophil percentageOrdered By: Laverne Lea on 09-10-2024 Neutrophils/100 WBC (Bld) 36.2 % Low 47-70 [facility] Nucleated red blood cell per centageOrdered By: Laverne Lea on 09-10-2024 Nucleated RBC/100 WBC (Bld) [Ratio] 0 % 0-5 [facility] Platelet countOrdered By: Leonora Lea on 09-10-2024 Platelets (Bld) [#/Vol] 283 10*3/uL 150-450 [facility] Potassium measurementOrdered By: Laverne Lea on 09-10-2024 Potassium [Moles/Vol] 3.4 mmol/L Low 3.5-5.1 [facility] RBC Auto (Bld) [#/Vol]Ordere d By: Laverne Lea on 09-10-2024 RBC (Bld) [#/Vol] 4.10 10*6/uL Low 4.2-5.4 [facility] Serum anion gap measurementO rdered By: Laverne Lea on 09-10-2024 Anion gap [Moles/Vol] 6 mmol/L 5-15 [facility] Serum or plasma calcium inga urement (mass/volume)Ordered By: Leonorabeverly Moraleznetoayo on 09-10-2024 Calcium [Mass/Vol] 9.4 mg/dL 8.5-10.1 [facility] Serum or plasma creatinine m easurement (mass/volume)Ordered By: Vinhnate Moraleznetoayo on 09-10-2024 Creatinine [Mass/Vol] 0.98 mg/dL 0.55-1.02 [facility] Comment on above: The validity of the calculated GFR & GFRAA in patients over 70 years has not been determined. Clinical correlation is essential. Serum or plasma urea nitroge n measurement (mass/volume)Ordered By: Antonetteernesto Moraleznetoayo on 09-10-2024 Urea nitrogen [Mass/Vol] 11 mg/dL 7-18 [facility] Sodium levelOrdered By: Antonette Lea on 09-10-2024 Sodium [Moles/Vol] 140 mmol/L 136-145 [facility] White blood cell (WBC) count Ordered By: Vinhnate Moralezesvin on 09-10-2024 WBC (Bld) [#/Vol] 7.8 10*3/uL 4.4-11.0 [facility] ERCP Reporton 07-23-2024 ERCP Report [facility] Medical Records Department [address] [place] [address] ERCP Report MR#: [id number] Acct: [id number] Name: LUIZA GALO Rep #: [id number] : 1940 83 From: Doe Orr DO PCP: Dr. Rosalind Rubalcava MD Status:DEP [facility] Patient Name: Luiza Galo Procedure Date: 07/19/2024 [...] hours 12 minutes 16 seconds Findings: The it telecom technician film was normal. The esophagus was successfully [...] biliary tree. Procedure Code(s): --- Professional --- 06402, Endoscopic retrograde cholangiopancreatograph y (ERCP); with removal of foreign body(s) or stent(s) from biliary/singh (more content not included)... Normal [facility] Bedside Glucoseon 07-19-2024 FINGERSTICK GLU 140 mg/dL High 74-106 [facility] Comment on above: Result Comment: TRAE CASTELLANO OF PATIENT CARE PER NURSING PROTOCOL Performed By: #### L 501.080 #### [facility] Laboratory [address] [facility]. [place], [place], [address] ERCP Biliary/Pancreason 07-03 ERCP Biliary/Pancreas [facility] Imaging Services [address] [place] [address] ERCP Biliary/Pancreas MR#: [id number] Acct: [id number] Name: LUIZA GALO Rep #: [id number] : 1940 F 83 From: Jose [place] PCP: Dr. Rosalind Rubalcava MD Status: [facility] Study: ERCP Biliary/Pancreas Date of Exam: 07/19/24 Exam# [id number] Ordering [place]: [place] [id number] EXAM: INTRAOPERATIVE CHOLANGIOGRAM FLUOROSCOPY TIME: 153.8 seconds RADIATION DOSE: 37.47 mGy TOTAL NUMBER OF IMAGES: 1 COMPARISON: None. PROVIDED CLINICAL HISTORY: STONES PAIN TECHNIQUE: The examination was performed with physician in attendance. Under fluoroscopic observation, fluoroscopic images were obtained in the operating room. FINDINGS: First image demonstrates surgical instruments overlying the [id number]. Contrast is identified in a cannulated common bile duct. Retrograde contrast is notseen in the pancreatic duct. Contrast is noted in the proximal duodenum. Contrast is seen in the intrahepatic ducts. Stent removal RAD/ERCP Biliary/Pancreas IMPRESSION: Fluoroscopic assistance images were obtained. Pertinent findings noted above. Electronically Signed: Jose Queen MD at 15:37 EDT Reading Location ID and State: [facility] / [place] , Service support , CC: Dr. Rosalind Rubalcava MD; Doe Orr DO Roping Machine Tender: Signed [facility] MR/POSTOP.ANEon 07-19-2024 MR/POSTOP.[facility] Medical Records Department [address] [place] [address] Anesthesia Postop Eval I 07/19/24 1219 MR#: [id number] Acct: [id number] Name: LUIZA GALO Rep #: [id number] : 1940 83 From: Omid Adams PCP: Dr. Rosalind Rubalcava MD Status:[facility] Y Race: C Location: [place] [address] Anesthesia: Postop Eval I Current Vital Signs [...] 1 completed: Yes 07/19/24 1220 Date Omid Corcoranigner Signature: Date CC: Signed Normal [facility] MR/SCEVSYNL3xy 07-19-2024 [facility] Medical Records Department [address] [place] [address] Anesthesia Postop Eval II 07/19/24 1225 MR#: [id number] Acct: [id number] Name: LUIZA GALO Rep #: [id number] : 1940 83 From: Cirilo Galeas MD PCP: Dr. Rosalind Rubalcava MD Status:REG [facility] Y Race: C Location: [place] [address] Anesthesia Postop Eval I Sum Postop Eval [...] No Vomiting: No 07/19/24 1226 Date Cirilo Tbaares Signature: Date CC: Signed Normal [facility] Special Stain Group IIon Special Stain Group II ------ Patient Age/Sex Location Account Attending Physician LUIZA GALO 83/F EN [id number] Doe Orr DO Specimen: [id number] Received: 07/19/24 Status: EMANUEL Pastrana Num: [id number] Spec Type: Fluid Subm Dr: Doe Orr [...] Submitted for cytology preparation including cell block. 07/19/2024 TC:5 CPT: 98997,60864 Signed (signature on file) Dr. Rangel Bell MD 07/20/24 1232 Normal [facility] Comment on above: Performed By: #### L 500.3400, L100.0100, L501.4020, L501.2450, L500.2500 #### [facility] Laboratory [facility] [address] [place], [place], [id number] .Auto Diffon 05-23-2024 Basophil, Absolute 0.0 10 3/mcL Normal 0.0-0.2 [facility] ([place]) Comment on above: Performed By: #### C BC, GFR, A1C, ADIFF, CRP, TSH, CMP, ANEU, ESR #### [address] [address] Basophils/100 WBC (Bld) 0.5 % Normal 0.0-2.5 [facility] ([place]) Comment on above: Performed By: #### C BC, GFR, A1C, ADIFF, CRP, TSH, CMP, ANEU, ESR #### [address] [address] Eosinophil, Absolute 0.2 10 3/mcL Normal 0.0-0.4 [facility] ([place]) Comment on above: Performed By: #### C BC, GFR, A1C, ADIFF, CRP, TSH, CMP, ANEU, ESR #### [address] [address] Eosinophils/100 WBC (Bld) 2.1 % Normal 0.0-7.0 [facility] ([place]) Comment on above: Performed By: #### C BC, GFR, A1C, ADIFF, CRP, TSH, CMP, ANEU, ESR #### [address] [address] Lymphocyte, Absolute 3.3 10 3/mcL Normal 0.8-3.9 [facility] ([place]) Comment on above: Performed By: #### C BC, GFR, A1C, ADIFF, CRP, TSH, CMP, ANEU, ESR #### [address] [address] Lymphocytes/100 WBC (Bld) 35.3 % Normal 10.0-50.0 [facility] ([place]) Comment on above: Performed By: #### C BC, GFR, A1C, ADIFF, CRP, TSH, CMP, ANEU, ESR #### [address] [address] Monocyte, Absolute 0.5 10 3/mcL Normal 0.2-1.0 [facility] ([place]) Comment on above: Performed By: #### C BC, GFR, A1C, ADIFF, CRP, TSH, CMP, ANEU, ESR #### [address] [address] Monocytes/100 WBC (Bld) 5.4 % Normal 1.7-13.0 [facility] ([place]) Comment on above: Performed By: #### C BC, GFR, A1C, ADIFF, CRP, TSH, CMP, ANEU, ESR #### [address] [address] Neutrophils/100 WBC (Bld) 56.7 % Normal 37.0-80.0 [facility] ([place]) Comment on above: Performed By: #### C BC, GFR, A1C, ADIFF, CRP, TSH, CMP, ANEU, ESR #### [address] [address] .GFRon 05-23-2024 GFR Non- 59 ml/min/1.73sqm Normal [facility] ([place]) Comment on above: Result Comment: [...] ADIFF, CRP, TSH, CMP, ANEU, ESR #### [address] [address] GFR 71 ml/min/1.73sqm Normal [facility] ([place]) Comment on above: Result Comment: GFR Population [...] ADIFF, CRP, TSH, CMP, ANEU, ESR #### [address] [address] .NEUABSon 05-23-2024 Neutrophil, Absolute 5.3 10 3/mcL Normal 2.9-6.2 [facility] ([place]) Comment on above: Performed By: #### C BC, GFR, A1C, ADIFF, CRP, TSH, CMP, ANEU, ESR #### [address] [address] A1Con 05-23-2024 Glucose [Mass/Vol] 157 mg/dL Normal [facility] ([place]) Comment on above: Result Comment: Jessica mated Average Glucose calculated by equation ((28.7xA1C)-46.7) Estimated average glucose (eAG) is a calculated value from Hemoglobin A1C and is site safety representative of the average blood glucose level in the last 2-3 month period. Normal range: less than 114 mg/dL Performed By: #### C BC, GFR, A1C, ADIFF, CRP, TSH, CMP, ANEU, ESR #### [address] [address] HbA1c (Bld) [Mass fraction] 7.1 % High 4.3-6.4 [facility] ([place]) Comment on above: Performed By: #### C BC, GFR, A1C, ADIFF, CRP, TSH, CMP, ANEU, ESR #### [address] [address] CBCon 05-23-2024 Erythrocyte distribution width (RBC) [Ratio] 13.7 % Normal 11.5-14.5 [facility] ([place]) Comment on above: Performed By: #### C BC, GFR, A1C, ADIFF, CRP, TSH, CMP, ANEU, ESR #### [place] [address] Hematocrit (Bld) [Volume fraction] 36.6 % Low 37.0-47.0 [facility] ([place]) Comment on above: Performed By: #### C BC, GFR, A1C, ADIFF, CRP, TSH, CMP, ANEU, ESR #### [place] [address] Hgb 12.6 G/dL Normal 12.0-16.0 [facility] ([place]) Comment on above: Performed By: #### C BC, GFR, A1C, ADIFF, CRP, TSH, CMP, ANEU, ESR #### [place] [address] MCH (RBC) [Entitic mass] 30.6 pg Normal 27.0-31.2 [facility] ([place]) Comment on above: Performed By: #### C BC, GFR, A1C, ADIFF, CRP, TSH, CMP, ANEU, ESR #### [place] [address] MCHC 34.3 G/dL Normal 33.0-37.0 [facility] ([place]) Comment on above: Performed By: #### C BC, GFR, A1C, ADIFF, CRP, TSH, CMP, ANEU, ESR #### [place] [address] MCV (RBC) [Entitic vol] 89.3 fL Normal 80.0-94.0 A [facility] ([place]) Comment on above: Performed By: #### C BC, GFR, A1C, ADIFF, CRP, TSH, CMP, ANEU, ESR #### [place] [id number] Platelet 276 10 3/mcL Normal 130-400 [facility] ([place]) Comment on above: Performed By: #### C BC, GFR, A1C, ADIFF, CRP, TSH, CMP, ANEU, ESR #### [address] [address] Platelet mean volume (Bld) [Entitic vol] 8.3 fL Normal 7.4-10.4 [facility] ([place]) Comment on above: Performed By: #### C BC, GFR, A1C, ADIFF, CRP, TSH, CMP, ANEU, ESR #### [address] [address] RBC 4.10 10 6/mcL Low 4.20-5.40 [facility] ([place]) Comment on above: Performed By: #### C BC, GFR, A1C, ADIFF, CRP, TSH, CMP, ANEU, ESR #### [address] [address] WBC 9.4 10 3/mcL Normal 4.6-10.8 [facility] ([place]) Comment on above: Performed By: #### C BC, GFR, A1C, ADIFF, CRP, TSH, CMP, ANEU, ESR #### [address] [address] CMPon 05-23-2024 Albumin Level 3.3 G/dL Low 3.4-4.8 [facility] ([place]) Comment on above: Performed By: #### C BC, GFR, A1C, ADIFF, CRP, TSH, CMP, ANEU, ESR #### [address] [address] Albumin/Globulin [Mass ratio] 0.9 {ratio} Low 1.1-2.5 [facility] ([place]) Comment on above: Performed By: #### C BC, GFR, A1C, ADIFF, CRP, TSH, CMP, ANEU, ESR #### [address] [address] ALP [Catalytic activity/Vol] 115 U/L Normal 40-135 [facility] ([place]) Comment on above: Performed By: #### C BC, GFR, A1C, ADIFF, CRP, TSH, CMP, ANEU, ESR #### [address] [address] ALT [Catalytic activity/Vol] 35 U/L Normal 14-59 [facility] ([place]) Comment on above: Performed By: #### C BC, GFR, A1C, ADIFF, CRP, TSH, CMP, ANEU, ESR #### [address] [address] AST [Catalytic activity/Vol] 42 U/L High 10-40 [facility] ([place]) Comment on above: Performed By: #### C BC, GFR, A1C, ADIFF, CRP, TSH, CMP, ANEU, ESR #### [address] [address] Bili Total 0.4 mg/dL Normal 0.2-1.0 [facility] ([place]) Comment on above: Result Comment: Use of this assay is not recommended for patients undergoing treatment with eltrombopag due to the potential for falsely elevated results. Performed By: #### C BC, GFR, A1C, ADIFF, CRP, TSH, CMP, ANEU, ESR #### [address] [address] BUN/Creatinine Ratio 12 ratio Normal 7-27 [facility] ([place]) Comment on above: Performed By: #### C BC, GFR, A1C, ADIFF, CRP, TSH, CMP, ANEU, ESR #### [address] [address] Calcium [Mass/Vol] 10.1 mg/dL Normal 8.4-10.2 [facility] ([place]) Comment on above: Performed By: #### C BC, GFR, A1C, ADIFF, CRP, TSH, CMP, ANEU, ESR #### [address] [address] Chloride [Moles/Vol] 103 mmol/L Normal 98-107 [facility] ([place]) Comment on above: Performed By: #### C BC, GFR, A1C, ADIFF, CRP, TSH, CMP, ANEU, ESR #### [address] [address] CO2 [Moles/Vol] 29 mmol/L Normal 23-31 [facility] ([place]) Comment on above: Performed By: #### C BC, GFR, A1C, ADIFF, CRP, TSH, CMP, ANEU, ESR #### [address] [address] Creatinine [Mass/Vol] 0.92 mg/dL Normal 0.55-1.02 [facility] ([place]) Comment on above: Performed By: #### C BC, GFR, A1C, ADIFF, CRP, TSH, CMP, ANEU, ESR #### [address] [address] Electrolyte Balance 9.0 mEq/L Normal 4.0-15.0 [facility]ending [facility] ([place]) Comment on above: Performed By: #### C BC, GFR, A1C, ADIFF, CRP, TSH, CMP, ANEU, ESR #### [address] [address] Globulin 3.7 G/dL Normal [facility] ([place]) Comment on above: Performed By: #### C BC, GFR, A1C, ADIFF, CRP, TSH, CMP, ANEU, ESR #### [address] [address] Glucose [Mass/Vol] 129 mg/dL High 83-110 [facility] ([place]) Comment on above: Performed By: #### C BC, GFR, A1C, ADIFF, CRP, TSH, CMP, ANEU, ESR #### [address] [address] Potassium [Moles/Vol] 3.7 mmol/L Normal 3.5-5.1 [facility] ([place]) Comment on above: Performed By: #### C BC, GFR, A1C, ADIFF, CRP, TSH, CMP, ANEU, ESR #### [address] [address] Sodium [Moles/Vol] 141 mmol/L Normal 136-145 [facility] ([place]) Comment on above: Performed By: #### C BC, GFR, A1C, ADIFF, CRP, TSH, CMP, ANEU, ESR #### [address] [address] Total Protein 7.0 G/dL Normal 6.4-8.2 [facility] ([place]) Comment on above: Performed By: #### C BC, GFR, A1C, ADIFF, CRP, TSH, CMP, ANEU, ESR #### [address] [address] Urea nitrogen [Mass/Vol] 11 mg/dL Normal 7-18 [facility] ([place]) Comment on above: Performed By: #### C BC, GFR, A1C, ADIFF, CRP, TSH, CMP, ANEU, ESR #### [id number] [place], [place] [address] CRPon 05-23-2024 C-Reactive Protein 0.2 mg/dL Normal 0.0-0.3 [facility] ([place]) Comment on above: Performed By: #### C BC, GFR, A1C, ADIFF, CRP, TSH, CMP, ANEU, ESR #### [id number] [place], [place] [address] ESRon 05-23-2024 Erythrocyte Sed Rate 15 mm/hr Normal 0-30 [facility] ([place]) Comment on above: Performed By: #### C BC, GFR, A1C, ADIFF, CRP, TSH, CMP, ANEU, ESR #### [address] [address] LABORATORYOrdered By: SYSTEM SYSTEM on 05-23-2024 Albumin [...] calculated value from Hemoglobin A1C and is site safety representative of the average blood glucose level [...] 05-23-2024 TSH Qn 1.98 m[IU]/L Normal 0.36-3.74 [facility] ([place]) Comment on above: Performed By: #### C BC, GFR, A1C, ADIFF, CRP, TSH, CMP, ANEU, ESR #### [facility] [address], [place] [address] Gastroenterology Visit Repor ton 04-25-2024 Gastroenterology Visit Report [facility] Gastroenterology [address] [place] [address] OFFICE VISIT Date of Service: 04/25/24 MR#: [id number] Acct: [id number] Name: LUIZA GALO Rep #: [id number] : 1940 Provider: Doe Orr DO Age/Sex: 83/F [place] [email or web address] Status: Signed Intake Vital Signs 10/24/23 11:00 [...] you fallen in the past year?: Yes [facility] Medical History (Updated 04/25/24 @ 16:[address] Doe Orr DO) Ascending cholangitis Immunosuppression due to drug therapy Former tobacco use Anxiety and depression History of left heart catheterization (LHC) ( 01/20/21) Paroxysmal atrial fibrillation Essential hypertension Atherosclerosis of coronary artery of [place] heart without angina pectoris 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 Bradycardia Stroke Dysphagia Morbid obesity Osteoarthritis GERD (gastroesophageal reflux disease) Pulmonary embolism Hyperlipidemia MARIVEL (obstructive sleep apnea) Diabetes mellitus Surgical History (Updated 04/20/24 @ 08:51 by Carmelina Quezada, RN) Hx of CABG History of bilateral [...] for follow up. CT abd/pel with contrast .08.25 lung scarring; s/p CABG; coronary artery calcification; [...] of the stent within the duodenum. OV 7..24 pt reports that overall she is feeling [...] and we (more content not included)... Normal [facility] 12 Lead EKGon 04-19-2024 12 Lead EKG [facility] Cardiovascular Services [address] [place] [address] 12 Lead EKG 04/19/24 1612 MR#: [id number] Acct: [id number] Name: LUIZA GALO Rep #: [id number] : 1940 83 From: Pawan Reed MD [...] normal ECG Confirmed by PAWAN REED MD ([id number]), pictures editor NEERAJ JUAN ([id number]) on 04/23/2024 11:08:10 AM Referred By: Confirmed By:PAWAN REED MD 04/23/24 1108 Date Pawan Reed MD CC: Dr. Enrrique Eric DO; Dr. Rosalind Rubalcava MD Signed Normal [facility] Basic Metabolic Profile (BMP )on 04-19-2024 BUN/CRE 9.6 RATIO Low 10-20 [facility] Comment on above: Order Comment: 'TROP ' Serial specimen #1, #2 or #3: 1 Performed By: #### L 500.3400, L100.0100, L501.4020, L501.2450, L500.2500 #### [facility] Laboratory [address] [place], [address] CA,Total 9.9 mg/dL Normal 8.5-10.1 [facility] Comment on above: Order Comment: 'TROP ' Serial specimen #1, #2 or #3: 1 Performed By: #### L 500.3400, L100.0100, L501.4020, L501.2450, L500.2500 #### [facility] [address] [place], [address] Chloride [Moles/Vol] 105 mmol/L Normal 98-107 [facility] Comment on above: Order Comment: 'TROP ' Serial specimen #1, #2 or #3: 1 Performed By: #### L 500.3400, L100.0100, L501.4020, L501.2450, L500.2500 #### [facility] [address] [place], [address] CO2 [Moles/Vol] 30.0 mmol/L Normal 21.0-32.0 [facility] Comment on above: Order Comment: 'TROP ' Serial specimen #1, #2 or #3: 1 Performed By: #### L 500.3400, L100.0100, L501.4020, L501.2450, L500.2500 #### [facility] [address] [place], [address] Creatinine [Mass/Vol] 0.84 mg/dL Normal 0.55-1.02 [facility] Comment on above: Order Comment: 'TROP ' Serial specimen #1, #2 or #3: 1 Result Comment: The validity of the calculated GFR GFRAA in patients over 70 years has not been determined. Clinical correlation is essential. Performed By: #### L 500.3400, L100.0100, L501.4020, L501.2450, L500.2500 #### [facility] [address] [place], [address] ECRCL 49.93 ml/min Normal [facility] Comment on above: Order Comment: 'TROP ' Serial specimen #1, #2 or #3: 1 Performed By: #### L 500.3400, L100.0100, L501.4020, L501.2450, L500.2500 #### [facility] [address] [place], [address] EST GFR - AA 84 mL/min Normal >60 [facility] Comment on above: Order Comment: 'TROP ' Serial specimen #1, #2 or #3: 1 Result Comment: Afri can Guyanese GFR Calc Performed By: #### L 500.3400, L100.0100, L501.4020, L501.2450, L500.2500 #### [facility] [address] [place], [address] GAP 6 Normal 5-15 [facility] Comment on above: Order Comment: 'TROP ' Serial specimen #1, #2 or #3: 1 Performed By: #### L 500.3400, L100.0100, L501.4020, L501.2450, L500.2500 #### [facility] [address] [place], [address] GFR/1.73 sq M.predicted among non-blacks MDRD (S/P/Bld) [Vol rate/Area] 70 mL/min/{1.73_m2} Normal >60 [facility] Comment on above: Order Comment: 'TROP ' Serial specimen #1, #2 or #3: 1 Result Comment: Non- GFR Calc Performed By: #### L 500.3400, L100.0100, L501.4020, L501.2450, L500.2500 #### [facility] [address] [place], [address] Glucose [Mass/Vol] 214 mg/dL High 74-106 [facility] Comment on above: Order Comment: 'TROP ' Serial specimen #1, #2 or #3: 1 Result Comment: Gluc ose result greater than or equal to 200 mg/dL suggests DIABETES MELLITUS per A.D.A. criteria. Performed By: #### L 500.3400, L100.0100, L501.4020, L501.2450, L500.2500 #### [facility] [address] [place], [address] Potassium [Moles/Vol] 3.6 mmol/L Normal 3.5-5.1 [facility] Comment on above: Order Comment: 'TROP ' Serial specimen #1, #2 or #3: 1 Performed By: #### L 500.3400, L100.0100, L501.4020, L501.2450, L500.2500 #### [facility] [address] [place], [address] Sodium [Moles/Vol] 141 mmol/L Normal 136-145 [facility] Comment on above: Order Comment: 'TROP ' Serial specimen #1, #2 or #3: 1 Performed By: #### L 500.3400, L100.0100, L501.4020, L501.2450, L500.2500 #### [facility] [address] [place], [address] Urea nitrogen [Mass/Vol] 8 mg/dL Normal 7-18 [facility] Comment on above: Order Comment: 'TROP ' Serial specimen #1, #2 or #3: 1 Performed By: #### L 500.3400, L100.0100, L501.4020, L501.2450, L500.2500 #### [facility] [address] [place], [address] CBC W/Diff, Automatedon 04-02 Absolute Lymph 3.61 X10 3/uL Normal 0.83-4.51 [facility] Comment on above: Performed By: #### L 500.3400, L100.0100, L501.4020, L501.2450, L500.2500 #### [facility] [address] [place], [address] Absolute Neut 3.1 X10 3/uL Normal 2.0-7.7 [facility] Comment on above: Performed By: #### L 500.3400, L100.0100, L501.4020, L501.2450, L500.2500 #### [facility] [address] [place], [address] Basophils/100 WBC (Bld) 0.5 % Normal 0-1 [facility] Comment on above: Performed By: #### L 500.3400, L100.0100, L501.4020, L501.2450, L500.2500 #### [facility] [address] [place], [address] Eosinophils/100 WBC (Bld) 1.5 % Normal 0-5 [facility] Comment on above: Performed By: #### L 500.3400, L100.0100, L501.4020, L501.2450, L500.2500 #### [facility] [address] [place], [address] Erythrocyte distribution width (RBC) [Ratio] 12.9 % Normal 11.6-14.6 [facility] Comment on above: Performed By: #### L 500.3400, L100.0100, L501.4020, L501.2450, L500.2500 #### [facility] [address] [place], [address] Hematocrit (Bld) [Volume fraction] 36.4 % Low 37-47 [facility] Comment on above: Performed By: #### L 500.3400, L100.0100, L501.4020, L501.2450, L500.2500 #### [facility] [address] [place], [address] Hemoglobin (Bld) [Mass/Vol] 12.3 g/dL Normal 12.0-15.0 [facility] Comment on above: Performed By: #### L 500.3400, L100.0100, L501.4020, L501.2450, L500.2500 #### [facility] [address] [place], [address] IG% 0.300 Normal 0.0-0.9 [facility] Comment on above: Result Comment: IG% - Immature Granulocytes (promyelocytes, myelocytes and metamyelocytes) > 1% indicates that a LEFT SHIFT is Present. Performed By: #### L 500.3400, L100.0100, L501.4020, L501.2450, L500.2500 #### [facility] [address] [place], [address] Lymphocytes/100 WBC (Bld) 49.6 % High 19-41 [facility] Comment on above: Performed By: #### L 500.3400, L100.0100, L501.4020, L501.2450, L500.2500 #### [facility] [address] [place], [address] MCH (RBC) [Entitic mass] 29.6 pg Normal 27.0-32.0 [facility] Comment on above: Performed By: #### L 500.3400, L100.0100, L501.4020, L501.2450, L500.2500 #### [facility] [address] [place], [address] MCHC (RBC) [Mass/Vol] 33.8 g/dL Normal 32-36 [facility] Comment on above: Performed By: #### L 500.3400, L100.0100, L501.4020, L501.2450, L500.2500 #### [facility] [address] [place], [address] MCV (RBC) [Entitic vol] 87.7 fL Normal 81-99 [facility] Comment on above: Performed By: #### L 500.3400, L100.0100, L501.4020, L501.2450, L500.2500 #### [facility] [address] [place], [address] Monocytes/100 WBC (Bld) 5.6 % Normal 0-10 [facility] Comment on above: Performed By: #### L 500.3400, L100.0100, L501.4020, L501.2450, L500.2500 #### [facility] [address] [place], [address] Neutrophils/100 WBC (Bld) 42.5 % Low 47-70 [facility] Comment on above: Performed By: #### L 500.3400, L100.0100, L501.4020, L501.2450, L500.2500 #### [facility] [address] [place], [address] Nucleated RBC (Bld) [#/Vol] 0 10*3/uL Normal 0-5 [facility] Comment on above: Performed By: #### L 500.3400, L100.0100, L501.4020, L501.2450, L500.2500 #### [facility] [address] [place], [address] Platelet mean volume (Bld) [Entitic vol] 9.4 fL Normal 6.2-12.0 [facility] Comment on above: Performed By: #### L 500.3400, L100.0100, L501.4020, L501.2450, L500.2500 #### [facility] [address] [place], [address] Platelets (Bld) [#/Vol] 280 10*3/uL Normal 150-450 [facility] Comment on above: Performed By: #### L 500.3400, L100.0100, L501.4020, L501.2450, L500.2500 #### [facility] [address] [place], [address] RBC (Bld) [#/Vol] 4.15 10*6/uL Low 4.2-5.4 [facility] Comment on above: Performed By: #### L 500.3400, L100.0100, L501.4020, L501.2450, L500.2500 #### [facility] [address] [place], [address] RDW SD 40.8 fl Normal 35.1-43.9 [facility] Comment on above: Performed By: #### L 500.3400, L100.0100, L501.4020, L501.2450, L500.2500 #### [facility] [address] [place], [address] WBC (Bld) [#/Vol] 7.3 10*3/uL Normal 4.4-11.0 [facility] Comment on above: Performed By: #### L 500.3400, L100.0100, L501.4020, L501.2450, L500.2500 #### [facility] [address] [place], [address] Chest 1 View (Portable)on Chest 1 View (Portable) [facility] Imaging Services [address] [place] [address] Chest 1 View (Portable) MR#: [id number] Acct: [id number] Name: LUIZA GALO Rep #: [id number] : 1940 F 83 From: Lorne Gomez DO PCP: Dr. Rosalind Rubalcava MD Status: REG ER Study: Chest 1 View (Portable) Date of Exam: 04/19/24 Exam# [id number] Ordering Dr: [place] [id number] INDICATION: chest pain EXAMINATION/TECHNIQUE: X-RAY - XR [...] 17:50 EDT Reading Location ID and State: [facility] / [place] Tel [phone], Service support , CC: Dr. Enrrique Eric DO; Dr. 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 Normal [facility] L501.4020on 04-19-2024 TROPONIN-I HS 18 pg/mL Normal 3.0-54.0 [facility] Comment on above: Order Comment: 'TROP ' Serial specimen #1, #2 or #3: 1 Result Comment: Bobby hickman Note: New Test Units and Gender Specific Reference Ranges. For more information see Policy Stat Procedure [place] High Sensitivity Troponin (TNIH) and attachments. Performed By: #### L 500.3400, L100.0100, L501.4020, L501.2450, L500.2500 #### [facility] [address] [place], [address] TROPONIN-I HS 18 pg/mL Normal 3.0-54.0 [facility] Comment on above: Order Comment: 'TROP ' Serial specimen #1, #2 or #3: 1 Result Comment: Plea se Note: New Test Units and Gender Specific Reference Ranges. For more information see Policy Stat Procedure [place] High Sensitivity Troponin (TNIH) and attachments. Performed By: #### L 500.3400, L100.0100, L501.4020, L501.2450, L500.2500 #### [facility] [address] [place], [place], [id number] (011) Lipaseon 04-19-2024 Lipase [Catalytic activity/Vol] 22 U/L Normal 13-75 [facility] Comment on above: Order Comment: 'TROP ' Serial specimen #1, #2 or #3: 1 Result Comment: Plea se note: LIPASE revised reference range effective 23. New Lipase methodology. Expected to produce lower values than the previous assay method. NEW Reference Range: 13 - 75 U/L Performed By: #### L 500.3400, L100.0100, L501.4020, L501.2450, L500.2500 #### [facility] [address] [place], [address] Liver Profileon 04-19-2024 Albumin [Mass/Vol] 3.1 g/dL Low 3.2-5.0 [facility] Comment on above: Order Comment: 'TROP ' Serial specimen #1, #2 or #3: 1 Performed By: #### L 500.3400, L100.0100, L501.4020, L501.2450, L500.2500 #### [facility] [address] [place], [address] ALK P 114 U/L Normal 45-117 [facility] Comment on above: Order Comment: 'TROP ' Serial specimen #1, #2 or #3: 1 Performed By: #### L 500.3400, L100.0100, L501.4020, L501.2450, L500.2500 #### [facility] [address] [place], [address] ALT [Catalytic activity/Vol] 29 U/L Normal 13-56 [facility] Comment on above: Order Comment: 'TROP ' Serial specimen #1, #2 or #3: 1 Performed By: #### L 500.3400, L100.0100, L501.4020, L501.2450, L500.2500 #### [facility] [address] [place], [address] AST [Catalytic activity/Vol] 30 U/L Normal 15-37 [facility] Comment on above: Order Comment: 'TROP ' Serial specimen #1, #2 or #3: 1 Performed By: #### L 500.3400, L100.0100, L501.4020, L501.2450, L500.2500 #### [facility] [address] [place], [address] Bilirubin [Mass/Vol] 0.30 mg/dL Normal 0.20-1.00 [facility] Comment on above: Order Comment: 'TROP ' Serial specimen #1, #2 or #3: 1 Result Comment: For patients on eltrombopag therapy, use of Dimension [place] Dy[place] TBIL is not recommended. Performed By: #### L 500.3400, L100.0100, L501.4020, L501.2450, L500.2500 #### [facility] [address] [place], [address] Bilirubin.direct [Mass/Vol] 0.10 mg/dL Normal 0.00-0.30 [facility] Comment on above: Order Comment: 'TROP ' Serial specimen #1, #2 or #3: 1 Performed By: #### L 500.3400, L100.0100, L501.4020, L501.2450, L500.2500 #### [facility] [address] [place], [address] Globulin (S) [Mass/Vol] 3.9 g/dL Normal 2.2-4.2 [facility] Comment on above: Order Comment: 'TROP ' Serial specimen #1, #2 or #3: 1 Performed By: #### L 500.3400, L100.0100, L501.4020, L501.2450, L500.2500 #### [facility] [address], [address] T PROT 7.0 g/dL Normal 6.4-8.2 [facility] Comment on above: Order Comment: 'TROP ' Serial specimen #1, #2 or #3: 1 Performed By: #### L 500.3400, L100.0100, L501.4020, L501.2450, L500.2500 #### [facility] [address] [place], [address] Abdomen/Pelvis W IV Cont ONL Yon 04-07-2024 Abdomen/Pelvis W IV Cont ONLY [facility] Imaging Services [address] [place] [address] Abdomen/Pelvis W IV Cont ONLY MR#: [id number] Acct: [id number] Name: LUIZA GALO Rep #: [id number] : 1940 F 83 From: Shaw Chawla MD PCP: Dr. Rosalind Rubalcava MD Status: DEP ER Study: Abdomen/Pelvis W IV Cont ONLY Date of Exam: Exam# [id number] Ordering Dr: [place] [id number] EXAM: CT ABDOMEN AND PELVIS WITH INTRAVENOUS [...] Tonny Herbert MD; Dr. 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, [address] CA,Total 9.7 mg/dL Normal 8.5-10.1 [facility] Comment on above: Performed By: #### L 100.0100, L500.2500, M100.7900 #### [facility] [address] [place], [address] Chloride [Moles/Vol] 106 mmol/L Normal 98-107 [facility] Comment on above: Performed By: #### L 100.0100, L500.2500, M100.7900 #### [facility] [address] [place], [address] CO2 [Moles/Vol] 27.0 mmol/L Normal 21.0-32.0 [facility] Comment on above: Performed By: #### L 100.0100, L500.2500, M100.7900 #### [facility] [address] [place], [address] Creatinine [Mass/Vol] 1.06 mg/dL High 0.55-1.02 [facility] Comment on above: Result Comment: The validity of the calculated GFR GFRAA in patients over 70 years has not been determined. Clinical correlation is essential. Performed By: #### L 100.0100, L500.2500, M100.7900 #### [facility] [address] [place], [address] ECRCL 39.81 ml/min Normal [facility] Comment on above: Performed By: #### L 100.0100, L500.2500, M100.7900 #### [facility] [address] [place], [address] EST GFR - AA 64 mL/min Normal >60 [facility] Comment on above: Result Comment: Afri can Guyanese GFR Calc Performed By: #### L 100.0100, L500.2500, M100.7900 #### [facility] [address] [place], [address] GAP 8 Normal 5-15 [facility] Comment on above: Performed By: #### L 100.0100, L500.2500, M100.7900 #### [facility] [address] [place], [address] GFR/1.73 sq M.predicted among non-blacks MDRD (S/P/Bld) [Vol rate/Area] 53 mL/min/{1.73_m2} Low >60 [facility] Comment on above: Result Comment: Non- GFR Calc Performed By: #### L 100.0100, L500.2500, M100.7900 #### [facility] [address] [place], [address] Glucose [Mass/Vol] 153 mg/dL High 74-106 [facility] Comment on above: Result Comment: Fast ing Glucose result greater than or equal to 126 mg/dL suggests DIABETES MELLITUS per A.D.A. criteria. Performed By: #### L 100.0100, L500.2500, M100.7900 #### [facility] [address] [place], [address] Potassium [Moles/Vol] 3.4 mmol/L Low 3.5-5.1 [facility] Comment on above: Performed By: #### L 100.0100, L500.2500, M100.7900 #### [facility] [address] [place], [address] Sodium [Moles/Vol] 141 mmol/L Normal 136-145 [facility] Comment on above: Performed By: #### L 100.0100, L500.2500, M100.7900 #### [facility] [address] [place], [address] Urea nitrogen [Mass/Vol] 13 mg/dL Normal 7-18 [facility] Comment on above: Performed By: #### L 100.0100, L500.2500, M100.7900 #### [facility] [address] [place], [address] CBC W/Diff, Automatedon 07-0 6-2023 Absolute Lymph 2.69 X10 3/uL Normal 0.83-4.51 [facility] Comment on above: Performed By: #### L 100.0100, L500.2500, M100.7900 #### [facility] [address] [place], [address] Absolute Neut 12.4 X10 3/uL High 2.0-7.7 [facility] Comment on above: Performed By: #### L 100.0100, L500.2500, M100.7900 #### [facility] [address] [place], [address] Basophils/100 WBC (Bld) 0.4 % Normal 0-1 [facility] Comment on above: Performed By: #### L 100.0100, L500.2500, M100.7900 #### [facility] [address] [place], [address] Eosinophils/100 WBC (Bld) 0.1 % Normal 0-5 [facility] Comment on above: Performed By: #### L 100.0100, L500.2500, M100.7900 #### [facility] [address] [place], [address] Erythrocyte distribution width (RBC) [Ratio] 13.3 % Normal 11.6-14.6 [facility] Comment on above: Performed By: #### L 100.0100, L500.2500, M100.7900 #### [facility] [address] [place], [address] Hematocrit (Bld) [Volume fraction] 41.0 % Normal 37-47 [facility] Comment on above: Performed By: #### L 100.0100, L500.2500, M100.7900 #### [facility] [address] [place], [address] Hemoglobin (Bld) [Mass/Vol] 13.6 g/dL Normal 12.0-15.0 [facility] Comment on above: Performed By: #### L 100.0100, L500.2500, M100.7900 #### [facility] [address] [facility] [place], [address] IG% 0.500 Normal 0.0-0.9 [facility] Comment on above: Result Comment: IG% - Immature Granulocytes (promyelocytes, myelocytes and metamyelocytes) > 1% indicates that a LEFT SHIFT is Present. Performed By: #### L 100.0100, L500.2500, M100.7900 #### [facility] [address], [address] Lymphocytes/100 WBC (Bld) 16.8 % Low 19-41 [facility] Comment on above: Performed By: #### L 100.0100, L500.2500, M100.7900 #### [facility] [address] [place], [address] MCH (RBC) [Entitic mass] 29.5 pg Normal 27.0-32.0 [facility] Comment on above: Performed By: #### L 100.0100, L500.2500, M100.7900 #### [facility] [address], [address] MCHC (RBC) [Mass/Vol] 33.2 g/dL Normal 32-36 [facility] Comment on above: Performed By: #### L 100.0100, L500.2500, M100.7900 #### [facility] [address] [place], [address] MCV (RBC) [Entitic vol] 88.9 fL Normal 81-99 [facility] Comment on above: Performed By: #### L 100.0100, L500.2500, M100.7900 #### [facility] [address] [place], [address] Monocytes/100 WBC (Bld) 4.4 % Normal 0-10 [facility] Comment on above: Performed By: #### L 100.0100, L500.2500, M100.7900 #### [facility] [address] [place], [address] Neutrophils/100 WBC (Bld) 77.8 % High 47-70 [facility] Comment on above: Performed By: #### L 100.0100, L500.2500, M100.7900 #### [facility] [address] [place], [address] Nucleated RBC (Bld) [#/Vol] 0 10*3/uL Normal 0-5 [facility] Comment on above: Performed By: #### L 100.0100, L500.2500, M100.7900 #### [facility] [address] [place], [address] Platelet mean volume (Bld) [Entitic vol] 9.8 fL Normal 6.2-12.0 [facility] Comment on above: Performed By: #### L 100.0100, L500.2500, M100.7900 #### [facility] [address] [place], [address] Platelets (Bld) [#/Vol] 293 10*3/uL Normal 150-450 [facility] Comment on above: Performed By: #### L 100.0100, L500.2500, M100.7900 #### [facility] [address] [place], [address] RBC (Bld) [#/Vol] 4.61 10*6/uL Normal 4.2-5.4 [facility] Comment on above: Performed By: #### L 100.0100, L500.2500, M100.7900 #### [facility] [address] [place], [address] RDW SD 43.0 fl Normal 35.1-43.9 [facility] Comment on above: Performed By: #### L 100.0100, L500.2500, M100.7900 #### [facility] [address] [place], [address] WBC (Bld) [#/Vol] 16.0 10*3/uL High 4.4-11.0 [facility] Comment on above: Performed By: #### L 100.0100, L500.2500, M100.7900 #### [facility] [address] [place], [address] Emergency Department Summary on 04-07-2024 Emergency Department Summary [facility] Medical Records Department [address] [place] [address] Emergency Department Summary 04/07/24 MR#: [id number] Acct: [id number] Name: LUIZA GALO Rep #: [id number] : 1940 83 From: Tonny Herbert MD [...] stool to no effect on her symptoms. 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 Normal [facility] Stool Occult Blood iFOBon STOB Positive Normal [facility] Comment on above: Performed By: #### L 100.0100, L500.2500, M100.7900 #### [facility] [address] [place], [address] 12 Lead EKGon 04-02-2024 12 Lead EKG [facility] Cardiovascular Services [address] [place] [address] 12 Lead EKG 04/01/242015 MR#: [id number] Acct: [id number] Name: LUIZA GALO Rep #: [id number] : 1940 83 From: Pawan Reed MD Attending Dr: Dr. El Best MD Status: DIS BJ Ordering Dr: Fausto Wright MD Date: 04/02/24 Location: [facility] Sex: F C Admitted: 04/01/24 Test Reason [...] UNCONFIRMED Confirmed by DEREK ALY, PAWAN ([id number]), pictures editor DARLEEN MAN ([id number]) on 04/03/2024 5:56:23 AM Referred By: Confirmed By:PAWAN REED MD 04/03/24 0556 Date Pawan Reed MD CC: Dr. El Best MD; Dr. Fausto Wright MD; Dr. Rosalind Rubalcava MD Signed Normal [facility] Basic Metabolic Profile (BMP )on 04-02-2024 BUN/CRE 16.3 RATIO Normal 10-20 [facility] Comment on above: Performed By: #### L 501.080 #### [facility] [address] [place], [address] CA,Total 8.8 mg/dL Normal 8.5-10.1 [facility] Comment on above: Performed By: #### L 501.080 #### [facility] [address] [place], [address] Chloride [Moles/Vol] 108 mmol/L High 98-107 [facility] Comment on above: Performed By: #### L 501.080 #### [facility] [address] [place], [address] CO2 [Moles/Vol] 28.0 mmol/L Normal 21.0-32.0 [facility] Comment on above: Performed By: #### L 501.080 #### [facility] [address] [place], [address] Creatinine [Mass/Vol] 0.98 mg/dL Normal 0.55-1.02 [facility] Comment on above: Result Comment: The validity of the calculated GFR GFRAA in patients over 70 years has not been determined. Clinical correlation is essential. Performed By: #### L 501.080 #### [facility] [address] [place], [address] ECRCL 41.98 ml/min Normal [facility] Comment on above: Performed By: #### L 501.080 #### [facility] [address] [place], [address] EST GFR - AA 70 mL/min Normal >60 [facility] Comment on above: Result Comment: Afri can Guyanese GFR Calc Performed By: #### L 501.080 #### [facility] [address] [place], [address] GAP 6 Normal 5-15 [facility] Comment on above: Performed By: #### L 501.080 #### [facility] [address] [place], [address] GFR/1.73 sq M.predicted among non-blacks MDRD (S/P/Bld) [Vol rate/Area] 58 mL/min/{1.73_m2} Low >60 [facility] Comment on above: Result Comment: Non- GFR Calc Performed By: #### L 501.080 #### [facility] [address] [place], [address] Glucose [Mass/Vol] 140 mg/dL High 74-106 [facility] Comment on above: Result Comment: Fast ing Glucose result greater than or equal to 126 mg/dL suggests DIABETES MELLITUS per A.D.A. criteria. Performed By: #### L 501.080 #### [facility] [address] [place], [address] Potassium [Moles/Vol] 3.8 mmol/L Normal 3.5-5.1 [facility] Comment on above: Performed By: #### L 501.080 #### [facility] [address] [place], [address] Sodium [Moles/Vol] 142 mmol/L Normal 136-145 [facility] Comment on above: Performed By: #### L 501.080 #### [facility] [address] [place], [address] Urea nitrogen [Mass/Vol] 16 mg/dL Normal 7-18 [facility] Comment on above: Performed By: #### L 501.080 #### [facility] [address] [place], [address] Bedside Glucoseon 04-02-2024 FINGERSTICK GLU 177 mg/dL High 74-106 [facility] Comment on above: Result Comment: TRAE CASTELLANO OF PATIENT CARE PER NURSING PROTOCOL Performed By: #### L 501.080 #### [facility] [address] [place], [address] FINGERSTICK GLU 119 mg/dL High 74-106 [facility] Comment on above: Result Comment: TRAE CASTELLANO OF PATIENT CARE PER NURSING PROTOCOL Performed By: #### L 500.3400, L100.0100, L501.4020, L501.2450, L500.2500 #### [facility] [address] [place], [address] CBC W/Diff, Automatedon 07-0 -2023 Absolute Lymph 2.78 X10 3/uL Normal 0.83-4.51 [facility] Comment on above: Performed By: #### L 501.080 #### [facility] [address] [place], [address] Absolute Neut 5.0 X10 3/uL Normal 2.0-7.7 [facility] Comment on above: Performed By: #### L 501.080 #### [facility] [address] [place], [address] Basophils/100 WBC (Bld) 0.5 % Normal 0-1 [facility] Comment on above: Performed By: #### L 501.080 #### [facility] [address] [place], [address] Eosinophils/100 WBC (Bld) 1.3 % Normal 0-5 [facility] Comment on above: Performed By: #### L 501.080 #### [facility] [address] [place], [address] Erythrocyte distribution width (RBC) [Ratio] 13.6 % Normal 11.6-14.6 [facility] Comment on above: Performed By: #### L 501.080 #### [facility] [address] [place], [address] Hematocrit (Bld) [Volume fraction] 37.5 % Normal 37-47 [facility] Comment on above: Performed By: #### L 501.080 #### [facility] [address] [place], [address] Hemoglobin (Bld) [Mass/Vol] 12.4 g/dL Normal 12.0-15.0 [facility] Comment on above: Performed By: #### L 501.080 #### [facility] [address] [place], [address] IG% 0.400 Normal 0.0-0.9 [facility] Comment on above: Result Comment: IG% - Immature Granulocytes (promyelocytes, myelocytes and metamyelocytes) > 1% indicates that a LEFT SHIFT is Present. Performed By: #### L 501.080 #### [facility] [address] [place], [address] Lymphocytes/100 WBC (Bld) 33.2 % Normal 19-41 [facility] Comment on above: Performed By: #### L 501.080 #### [facility] [address] [place], [address] MCH (RBC) [Entitic mass] 29.7 pg Normal 27.0-32.0 [facility] Comment on above: Performed By: #### L 501.080 #### [facility] [address] [place], [address] MCHC (RBC) [Mass/Vol] 33.1 g/dL Normal 32-36 [facility] Comment on above: Performed By: #### L 501.080 #### [facility] [address] [place], [address] MCV (RBC) [Entitic vol] 89.9 fL Normal 81-99 [facility] Comment on above: Performed By: #### L 501.080 #### [facility] [address] [place], [address] Monocytes/100 WBC (Bld) 5.4 % Normal 0-10 [facility] Comment on above: Performed By: #### L 501.080 #### [facility] [address] [place], [address] Neutrophils/100 WBC (Bld) 59.2 % Normal 47-70 [facility] Comment on above: Performed By: #### L 501.080 #### [facility] [address] [place], [address] Nucleated RBC (Bld) [#/Vol] 0 10*3/uL Normal 0-5 [facility] Comment on above: Performed By: #### L 501.080 #### [facility] [address] [place], [address] Platelet mean volume (Bld) [Entitic vol] 9.7 fL Normal 6.2-12.0 [facility] Comment on above: Performed By: #### L 501.080 #### [facility] [address] [place], [address] Platelets (Bld) [#/Vol] 258 10*3/uL Normal 150-450 [facility] Comment on above: Performed By: #### L 501.080 #### [facility] [address] [place], [address] RBC (Bld) [#/Vol] 4.17 10*6/uL Low 4.2-5.4 [facility] Comment on above: Performed By: #### L 501.080 #### [facility] [address] [place], [address] RDW SD 44.6 fl High 35.1-43.9 [facility] Comment on above: Performed By: #### L 501.080 #### [facility] [address] [place], [address] WBC (Bld) [#/Vol] 8.4 10*3/uL Normal 4.4-11.0 [facility] Comment on above: Performed By: #### L 501.080 #### [facility] [address] [place], [place], [address] Hemoglobin A1con 04-02-2024 HbA1c (Bld) [Mass fraction] 6.9 % High 3.8-5.6 [facility] Comment on above: Result Comment: Norm al < 5.7 % Prediabetic 5.7 - 6.4 % Diabetic >or= 6.5 % Please note range changes. Performed By: #### L 501.080 #### [facility] [address] [place], [address] L501.4020on 04-02-2024 TROPONIN-I HS 21 pg/mL Normal 3.0-54.0 [facility] Comment on above: Order Comment: 'TROP ' Serial specimen #1, #2 or #3: 5 Result Comment: Plea se Note: New Test Units and Gender Specific Reference Ranges. For more information see Policy Stat Procedure [place] High Sensitivity Troponin (TNIH) and attachments. Performed By: #### L 501.4020 #### [facility] [address] [facility] [address] [place], [place], [address] TROPONIN-I HS 27 pg/mL Normal 3.0-54.0 [facility] Comment on above: Order Comment: 'TROP ' Serial specimen #1, #2 or #3: 4NURSE NOTIFIED ME OF TROPONIN WHILE I WAS ON FLOOR EVIN ITWHILE UP THERE. Result Comment: Plea se Note: New Test Units and Gender Specific Reference Ranges. For more information see Policy Stat Procedure [place] High Sensitivity Troponin (TNIH) and attachments. Performed By: #### L 501.080 #### [facility] [address] [place], [address] Lipid Profileon 04-02-2024 Cholesterol [Mass/Vol] 136 mg/dL Normal 200 [facility] Comment on above: Result Comment: <200 mg/dL Desirable 200-240 mg/dL Borderline >240 mg/dL High Risk Performed By: #### L 501.080 #### [facility] [address] [place], [address] Cholesterol in HDL [Mass/Vol] 41 mg/dL Normal [facility] Comment on above: Result Comment: The drugs N-Acetylcysteine and Metamizole may falsely depress this assay. Reference Range HDL <40 mg/dL Low HDL Cholesterol HDL >or= 60 mg/dL High HDL Cholesterol Performed By: #### L 501.080 #### [facility] [address] [place], [address] Cholesterol in LDL [Mass/Vol] 59 mg/dL Normal 0-130 [facility] Comment on above: Performed By: #### L 501.080 #### [facility] [address] [place], [address] Cholesterol in VLDL [Mass/Vol] 36 mg/dL Normal 5-40 [facility] Comment on above: Performed By: #### L 501.080 #### [facility] [address] [place], [address] Triglyceride [Mass/Vol] 180 mg/dL Normal [facility] Comment on above: Result Comment: The drugs N-Acetylcysteine and Metamizole may falsely depress this assay. Serum Triglycerides Reference Interval Normal <150 mg/dL Borderline high 150 - 199 mg/dL High 200 - 499 mg/dL Very High > or = 500 mg/dL Performed By: #### L 501.080 #### [facility] [address] [facility] 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 El Best MD Status: DIS BJ Ordering Dr: Fausto Wright MD Date: 04/01/24 Location: [facility] Sex: F C Admitted: 04/01/24 Test Reason [...] UNCONFIRMED Confirmed by DEREK ALY, PAWAN ([id number]), pictures editor DARLEEN MAN ([id number]) on 04/03/2024 5:55:11 AM Referred By: Confirmed By:PAWAN REED MD 04/03/24 0555 Date Pawan Reed MD CC: Dr. El Best MD; Dr. Fausto Wright MD; Dr. Rosalind Rubalcava MD Signed Normal [facility] 12 Lead EKG [facility] Cardiovascular Services [address] [place] [address] 12 Lead EKG 04/01/24 1437 MR#: [id number] Acct: [id number] Name: LUIZA GALO Rep #: [id number] : 1940 83 From: Deric Cortez MD Attending Dr: Dr. El Best MD Status: ADM BJ Ordering Dr: Markel Sotomayor Date: 04/01/24 Location: U Sex: F C Admitted: 04/01/24 Test Reason : CP Blood Pressure : / mmHG Vent. Rate : 061 BPM Atrial Rate : 061 BPM P-R Int : 206 ms QRS Dur : 090 ms QT Int : 450 ms P-R-T Axes : 075 043 073 degrees QTc Int : 453 ms Normal sinus rhythm Normal ECG Confirmed by Deric Cortez ([id number]), pictures editor DARLEEN MAN ([id number]) on 04/02/2024 9:19:37 AM Referred By: Confirmed By:Deric Cortez 04/02/24918 Date Deric Cortez MD CC: ZAID Sotomayor; Dr. El Best MD; Dr. Rosalind Rubalcava MD Signed Normal [facility] Bedside Glucoseon 04-01-2024 FINGERSTICK GLU 122 mg/dL High 74-106 [facility] Comment on above: Result Comment: TRAE CASTELLANO OF PATIENT CARE PER NURSING PROTOCOL Performed By: #### L 501.080 #### [facility] [address] [place], [address] CBC W/Diff, Automatedon 03-05 Absolute Lymph 2.78 X10 3/uL Normal 0.83-4.51 [facility] Comment on above: Performed By: #### L 500.3400, L100.0100, L501.4020, L501.2450, L500.2500 #### [facility] [address] [place], [address] Absolute Neut 3.5 X10 3/uL Normal 2.0-7.7 [facility] Comment on above: Performed By: #### L 500.3400, L100.0100, L501.4020, L501.2450, L500.2500 #### [facility] [address] [place], [address] Basophils/100 WBC (Bld) 0.6 % Normal 0-1 [facility] Comment on above: Performed By: #### L 500.3400, L100.0100, L501.4020, L501.2450, L500.2500 #### [facility] [address] [place], [address] Eosinophils/100 WBC (Bld) 2.1 % Normal 0-5 [facility] Comment on above: Performed By: #### L 500.3400, L100.0100, L501.4020, L501.2450, L500.2500 #### [facility] [address] [place], [address] Erythrocyte distribution width (RBC) [Ratio] 13.5 % Normal 11.6-14.6 [facility] Comment on above: Performed By: #### L 500.3400, L100.0100, L501.4020, L501.2450, L500.2500 #### [facility] [address] [place], [address] Hematocrit (Bld) [Volume fraction] 38.7 % Normal 37-47 [facility] Comment on above: Performed By: #### L 500.3400, L100.0100, L501.4020, L501.2450, L500.2500 #### [facility] [address] [place], [address] Hemoglobin (Bld) [Mass/Vol] 12.9 g/dL Normal 12.0-15.0 [facility] Comment on above: Performed By: #### L 500.3400, L100.0100, L501.4020, L501.2450, L500.2500 #### [facility] [address] [place], [address] IG% 0.100 Normal 0.0-0.9 [facility] Comment on above: Result Comment: IG% - Immature Granulocytes (promyelocytes, myelocytes and metamyelocytes) > 1% indicates that a LEFT SHIFT is Present. Performed By: #### L 500.3400, L100.0100, L501.4020, L501.2450, L500.2500 #### [facility] [address] [place], [address] Lymphocytes/100 WBC (Bld) 40.9 % Normal 19-41 [facility] Comment on above: Performed By: #### L 500.3400, L100.0100, L501.4020, L501.2450, L500.2500 #### [facility] [address] [place], [address] MCH (RBC) [Entitic mass] 30.1 pg Normal 27.0-32.0 [facility] Comment on above: Performed By: #### L 500.3400, L100.0100, L501.4020, L501.2450, L500.2500 #### [facility] [address] [place], [address] MCHC (RBC) [Mass/Vol] 33.3 g/dL Normal 32-36 [facility] Comment on above: Performed By: #### L 500.3400, L100.0100, L501.4020, L501.2450, L500.2500 #### [facility] [address] [place], [address] MCV (RBC) [Entitic vol] 90.2 fL Normal 81-99 [facility] Comment on above: Performed By: #### L 500.3400, L100.0100, L501.4020, L501.2450, L500.2500 #### [facility] [address] [place], [address] Monocytes/100 WBC (Bld) 4.6 % Normal 0-10 [facility] Comment on above: Performed By: #### L 500.3400, L100.0100, L501.4020, L501.2450, L500.2500 #### [facility] [address] [place], [address] Neutrophils/100 WBC (Bld) 51.7 % Normal 47-70 [facility] Comment on above: Performed By: #### L 500.3400, L100.0100, L501.4020, L501.2450, L500.2500 #### [facility] [address] [place], [address] Nucleated RBC (Bld) [#/Vol] 0 10*3/uL Normal 0-5 [facility] Comment on above: Performed By: #### L 500.3400, L100.0100, L501.4020, L501.2450, L500.2500 #### [facility] [address] [place], [address] Platelet mean volume (Bld) [Entitic vol] 9.9 fL Normal 6.2-12.0 [facility] Comment on above: Performed By: #### L 500.3400, L100.0100, L501.4020, L501.2450, L500.2500 #### [facility] [address] [place], [address] Platelets (Bld) [#/Vol] 259 10*3/uL Normal 150-450 [facility] Comment on above: Performed By: #### L 500.3400, L100.0100, L501.4020, L501.2450, L500.2500 #### [facility] [address] [place], [address] RBC (Bld) [#/Vol] 4.29 10*6/uL Normal 4.2-5.4 [facility] Comment on above: Performed By: #### L 500.3400, L100.0100, L501.4020, L501.2450, L500.2500 #### [facility] [address] [place], [address] RDW SD 44.6 fl High 35.1-43.9 [facility] Comment on above: Performed By: #### L 500.3400, L100.0100, L501.4020, L501.2450, L500.2500 #### [facility] [address] [place], [address] WBC (Bld) [#/Vol] 6.8 10*3/uL Normal 4.4-11.0 [facility] Comment on above: Performed By: #### L 500.3400, L100.0100, L501.4020, L501.2450, L500.2500 #### [facility] [address] [place], [address] CTA Chest W/WO Contraston CTA Chest W/WO Contrast [facility] Imaging Services [address] [address] CTA Chest W/WO Contrast MR#: [id number] Acct: [id number] Name: LUIZA GALO Rep #: [id number] : 1940 F 83 From: Jose [place] PCP: Dr. Rosalind Rubalcava MD Status: ADM IN Study: CTA Chest W/WO Contrast Date of Exam: 04/01/24 Exam# [id number] Ordering Dr: Markel Sotomayor PAIRER ODDS-C [id number] EXAM: CT ANGIOGRAPHY CHEST WITHOUT AND WITH [...] 20:09 EDT Reading Location ID and State: [facility] / [place] , Service support , CC: ZAID Sotomayor; Dr. Rosalind Rubalcava MD Roping Machine Tender: Signed Normal [facility] Chest 1 View (Portable)on Chest 1 View (Portable) [facility] Imaging Services [address] [place] [id number] Chest 1 View (Portable) MR#: [id number] Acct: [id number] Name: LUIZA GALO Rep #: [id number] : 1940 F 83 From: Jose [place] PCP: Dr. Rosalind Rubalcava MD Status: PRE ER Study: Chest 1 View (Portable) Date of Exam: 04/01/24 Exam# [id number] Ordering Dr: Markel Sotomayor PAIRER ODDS-David [id number] STUDY: XR Chest 1 View 04/01/2024 3:21 [...] CC: ZAID Sotomayor; Dr. Rosalind Rubalcava MD Roping Machine Tender: Signed Normal [facility] Comprehensive Metabolic Prof oron 04-01-2024 Albumin [Mass/Vol] 3.4 g/dL Normal 3.2-5.0 [facility] Comment on above: Order Comment: 1Y Performed By: #### L 500.3400, L100.0100, L501.4020, L501.2450, L500.2500 #### [facility] [address] [place], [place], [id number] Albumin/Globulin [Mass ratio] 0.8 {ratio} Low 0.9-2.4 [facility] Comment on above: Order Comment: 1Y Performed By: #### L 500.3400, L100.0100, L501.4020, L501.2450, L500.2500 #### [facility] [address] [place], [address] ALK P 110 U/L Normal 45-117 [facility] Comment on above: Order Comment: 1Y Performed By: #### L 500.3400, L100.0100, L501.4020, L501.2450, L500.2500 #### [facility] [address] [place], [address] ALT [Catalytic activity/Vol] 24 U/L Normal 13-56 [facility] Comment on above: Order Comment: 1Y Performed By: #### L 500.3400, L100.0100, L501.4020, L501.2450, L500.2500 #### [facility] [address] [place], [address] AST [Catalytic activity/Vol] 27 U/L Normal 15-37 [facility] Comment on above: Order Comment: 1Y Result Comment: Slig ht Hemolysis, Result may be falsely increased. Performed By: #### L 500.3400, L100.0100, L501.4020, L501.2450, L500.2500 #### [facility] [address] [place], [address] Bilirubin [Mass/Vol] 0.30 mg/dL Normal 0.20-1.00 [facility] Comment on above: Order Comment: 1Y Result Comment: For patients on eltrombopag therapy, use of Dimension [place] TBIL is not recommended. Performed By: #### L 500.3400, L100.0100, L501.4020, L501.2450, L500.2500 #### [facility] [address] [place], [address] BUN/CRE 14.4 RATIO Normal 10-20 [facility] Comment on above: Order Comment: 1Y Performed By: #### L 500.3400, L100.0100, L501.4020, L501.2450, L500.2500 #### [facility] [address] [place], [address] CA,Total 9.3 mg/dL Normal 8.5-10.1 [facility] Comment on above: Order Comment: 1Y Performed By: #### L 500.3400, L100.0100, L501.4020, L501.2450, L500.2500 #### [facility] [address] [place], [address] Chloride [Moles/Vol] 105 mmol/L Normal 98-107 [facility] Comment on above: Order Comment: 1Y Performed By: #### L 500.3400, L100.0100, L501.4020, L501.2450, L500.2500 #### [facility] [address] [place], [address] CO2 [Moles/Vol] 31.0 mmol/L Normal 21.0-32.0 [facility] Comment on above: Order Comment: 1Y Performed By: #### L 500.3400, L100.0100, L501.4020, L501.2450, L500.2500 #### [facility] [address] [place], [address] Creatinine [Mass/Vol] 1.11 mg/dL High 0.55-1.02 [facility] Comment on above: Order Comment: 1Y Result Comment: The validity of the calculated GFR GFRAA in patients over 70 years has not been determined. Clinical correlation is essential. Performed By: #### L 500.3400, L100.0100, L501.4020, L501.2450, L500.2500 #### [facility] [address] [place], [address] EST GFR - AA 61 mL/min Normal >60 [facility] Comment on above: Order Comment: 1Y Result Comment: Afri can Guyanese GFR Calc Performed By: #### L 500.3400, L100.0100, L501.4020, L501.2450, L500.2500 #### [facility] [address] [place], [address] GAP 4 Low 5-15 [facility] Comment on above: Order Comment: 1Y Performed By: #### L 500.3400, L100.0100, L501.4020, L501.2450, L500.2500 #### [facility] [address] [place], [address] GFR/1.73 sq M.predicted among non-blacks MDRD (S/P/Bld) [Vol rate/Area] 50 mL/min/{1.73_m2} Low >60 [facility] Comment on above: Order Comment: 1Y Result Comment: Non- GFR Calc Performed By: #### L 500.3400, L100.0100, L501.4020, L501.2450, L500.2500 #### [facility] [address] [place], [address] Globulin (S) [Mass/Vol] 4.2 g/dL Normal 2.2-4.2 [facility] Comment on above: Order Comment: 1Y Performed By: #### L 500.3400, L100.0100, L501.4020, L501.2450, L500.2500 #### [facility] [address] [place], [address] Glucose [Mass/Vol] 246 mg/dL High 74-106 [facility] Comment on above: Order Comment: 1Y Result Comment: Gluc ose result greater than or equal to 200 mg/dL suggests DIABETES MELLITUS per A.D.A. criteria. Performed By: #### L 500.3400, L100.0100, L501.4020, L501.2450, L500.2500 #### [facility] [address] [place], [address] Potassium [Moles/Vol] 4.3 mmol/L Normal 3.5-5.1 [facility] Comment on above: Order Comment: 1Y Result Comment: Slig ht Hemolysis, Result may be falsely increased. Performed By: #### L 500.3400, L100.0100, L501.4020, L501.2450, L500.2500 #### [facility] [address] [place], [address] Sodium [Moles/Vol] 140 mmol/L Normal 136-145 [facility] Comment on above: Order Comment: 1Y Performed By: #### L 500.3400, L100.0100, L501.4020, L501.2450, L500.2500 #### [facility] [address] [place], [address] T PROT 7.6 g/dL Normal 6.4-8.2 [facility] Comment on above: Order Comment: 1Y Performed By: #### L 500.3400, L100.0100, L501.4020, L501.2450, L500.2500 #### [facility] [address] [place], [address] Urea nitrogen [Mass/Vol] 16 mg/dL Normal 7-18 [facility] Comment on above: Order Comment: 1Y Performed By: #### L 500.3400, L100.0100, L501.4020, L501.2450, L500.2500 #### [facility] [address] [place], [address] Emergency Department Summary on 04-01-2024 Emergency Department Summary [facility] Medical Records Department [address] [place] [address] Emergency Department Summary 04/01/24 MR#: [id number] Acct: [id number] Name: LUIZA GALO Rep #: [id number] : 1940 83 From: Markel MAR PCP: Dr. Rosalind Rubalcava MD Status:ADM BJ Location: [address] History of Present Illness Chief Complaint: [...] the pain as a pressure/intermittent sharp sensation. 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 [facility] H AND P Exam - Hospitaliston 04-01-2024 H&P Exam - Hospitalist [facility] Medical Records Department [address] [place] [address] H P Exam - Hospitalist 04/01/24 1856 MR#: [id number] Acct: [id number] Name: LUIZA GALO Rep #: [id number] : 1940 83 From: Fausto Wright MD PCP: Dr. Rosalind Rubalcava MD Status:ADM IN Location: [facility] [id number] HPI - General General Date of Service: 04/01/24 Chief Complaint: Chest pain HPI Narrative LUIZA GALO, is a 83 F with a significant history of former tobacco abuse; chronic lower back pain; CABG in 2017; HTN; paroxysmal A-fib; DVT; and diabetes mellitus who lives at a [facility] presenting with left-sided chest pain that started [...] found to have severely elevated blood pressures. 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 Normal [facility] L501.4020on 04-01-2024 TROPONIN-I HS 20 pg/mL Normal 3.0-54.0 [facility] Comment on above: Order Comment: 'TROP ' Serial specimen #1, #2 or #3: 3 Result Comment: Pletyesha hickman Note: New Test Units and Gender Specific Reference Ranges. For more information see Policy Stat Procedure [place] High Sensitivity Troponin (TNIH) and attachments. Performed By: #### L 501.080 #### [facility] [address] [place], [place], [address] TROPONIN-I HS 14 pg/mL Normal 3.0-54.0 [facility] Comment on above: Result Comment: Plea se Note: New Test Units and Gender Specific Reference Ranges. For more information see Policy Stat Procedure [place] High Sensitivity Troponin (TNIH) and attachments. Performed By: #### L 501.080 #### [facility] [address] [place], [address] L501.5425on 04-01-2024 TROPONIN-I HS 13 pg/mL Normal 3.0-54.0 [facility] Comment on above: Order Comment: 1Y Result Comment: Bobby hickman Note: New Test Units and Gender Specific Reference Ranges. For more information see Policy Stat Procedure [place] High Sensitivity Troponin (TNIH) and attachments. Performed By: #### L 500.3400, L100.0100, L501.4020, L501.2450, L500.2500 #### [facility] [address] [place], [address] Lipaseon 04-01-2024 Lipase [Catalytic activity/Vol] 20 U/L Normal 13-75 [facility] Comment on above: Order Comment: 1Y Result Comment: Bobby hickman note: LIPASE revised reference range effective 23. New Lipase methodology. Expected to produce lower values than the previous assay method. NEW Reference Range: 13 - 75 U/L Performed By: #### L 500.3400, L100.0100, L501.4020, L501.2450, L500.2500 #### [facility] [address] [place], [place], [id number] .ANATon 03-07-2024 CRISTEL Pattern 1 Homogeneous Normal [facility] ([place]) Comment on above: Result Comment: At A ult[place], an CRISTEL titer of less than 160 is not considered suggestive of significant rheumatoid disease. If clinical suspicion is high, suggest repeat testing in 1-2 months. Performed By: #### C BC, GFR, A1C, ADIFF, CRP, TSH, CMP, ANEU, ESR #### [address] [place] [address] [place], [place] [address] CRISTEL Titer 1 80 Normal [facility] ([place]) Comment on above: Performed By: #### C BC, GFR, A1C, ADIFF, CRP, TSH, CMP, ANEU, ESR #### [address] [address] [place], [place] [address] ANAon 03-07-2024 CRISTEL See Titer Normal Neg 40 [facility] ([place]) Comment on above: Result Comment: CRISTEL Screen and Titer methodology is an immunofluorescent technique utilizing Hep2 Substrate. Performed By: #### C BC, GFR, A1C, ADIFF, CRP, TSH, CMP, ANEU, ESR #### [address] [address] .GFRon 03-06-2024 GFR 62 ml/min/1.73sqm Normal [facility] ([place]) Comment on above: Result Comment: GFR Population [...] ADIFF, CRP, TSH, CMP, ANEU, ESR #### [address] [address] GFR Non- 51 ml/min/1.73sqm Normal [facility] ([place]) Comment on above: Result Comment: GFR Population [...] ADIFF, CRP, TSH, CMP, ANEU, ESR #### [place] [address] [place], [place] [address] A1Con 03-06-2024 HbA1c (Bld) [Mass fraction] 7.5 % High 4.3-6.4 [facility] ([place]) Comment on above: Performed By: #### C BC, GFR, A1C, ADIFF, CRP, TSH, CMP, ANEU, ESR #### [address] [address] CMPon 03-06-2024 Albumin Level 3.1 G/dL Low 3.4-4.8 [facility] ([place]) Comment on above: Performed By: #### C BC, GFR, A1C, ADIFF, CRP, TSH, CMP, ANEU, ESR #### [address] [address] Albumin/Globulin [Mass ratio] 0.8 {ratio} Low 1.1-2.5 [facility] ([place]) Comment on above: Performed By: #### C BC, GFR, A1C, ADIFF, CRP, TSH, CMP, ANEU, ESR #### [address] [address] ALP [Catalytic activity/Vol] 113 U/L Normal 40-135 [facility] ([place]) Comment on above: Performed By: #### C BC, GFR, A1C, ADIFF, CRP, TSH, CMP, ANEU, ESR #### [address] [address] ALT [Catalytic activity/Vol] 24 U/L Normal 14-59 [facility] ([place]) Comment on above: Performed By: #### C BC, GFR, A1C, ADIFF, CRP, TSH, CMP, ANEU, ESR #### [address] [address] AST [Catalytic activity/Vol] 19 U/L Normal 10-40 [facility] ([place]) Comment on above: Performed By: #### C BC, GFR, A1C, ADIFF, CRP, TSH, CMP, ANEU, ESR #### [address] [address] Bili Total 0.4 mg/dL Normal 0.2-1.0 [facility] ([place]) Comment on above: Result Comment: Use of this assay is not recommended for patients undergoing treatment with eltrombopag due to the potential for falsely elevated results. Performed By: #### C BC, GFR, A1C, ADIFF, CRP, TSH, CMP, ANEU, ESR #### [address] [address] BUN/Creatinine Ratio 16 ratio Normal 7-27 [facility] ([place]) Comment on above: Performed By: #### C BC, GFR, A1C, ADIFF, CRP, TSH, CMP, ANEU, ESR #### [address] [address] Calcium [Mass/Vol] 9.0 mg/dL Normal 8.4-10.2 [facility] ([place]) Comment on above: Performed By: #### C BC, GFR, A1C, ADIFF, CRP, TSH, CMP, ANEU, ESR #### [address] [address] Chloride [Moles/Vol] 103 mmol/L Normal 98-107 [facility] ([place]) Comment on above: Performed By: #### C BC, GFR, A1C, ADIFF, CRP, TSH, CMP, ANEU, ESR #### [address] [address] CO2 [Moles/Vol] 32 mmol/L High 23-31 [facility] ([place]) Comment on above: Performed By: #### C BC, GFR, A1C, ADIFF, CRP, TSH, CMP, ANEU, ESR #### [address] [address] Creatinine [Mass/Vol] 1.04 mg/dL High 0.55-1.02 [facility] ([place]) Comment on above: Performed By: #### C BC, GFR, A1C, ADIFF, CRP, TSH, CMP, ANEU, ESR #### [address] [address] Electrolyte Balance 10.0 mEq/L Normal 4.0-15.0 Pending [facility] to [facility] ([place]) Comment on above: Performed By: #### C BC, GFR, A1C, ADIFF, CRP, TSH, CMP, ANEU, ESR #### [address] [address] Globulin 3.7 G/dL Normal [facility] ([place]) Comment on above: Performed By: #### C BC, GFR, A1C, ADIFF, CRP, TSH, CMP, ANEU, ESR #### [address] [address] Glucose [Mass/Vol] 147 mg/dL High 83-110 [facility] ([place]) Comment on above: Performed By: #### C BC, GFR, A1C, ADIFF, CRP, TSH, CMP, ANEU, ESR #### [address] [address] Potassium [Moles/Vol] 3.6 mmol/L Normal 3.5-5.1 [facility] ([place]) Comment on above: Performed By: #### C BC, GFR, A1C, ADIFF, CRP, TSH, CMP, ANEU, ESR #### [address] [address] Sodium [Moles/Vol] 145 mmol/L Normal 136-145 [facility] ([place]) Comment on above: Performed By: #### C BC, GFR, A1C, ADIFF, CRP, TSH, CMP, ANEU, ESR #### [address] [address] Total Protein 6.8 G/dL Normal 6.4-8.2 [facility] ([place]) Comment on above: Performed By: #### C BC, GFR, A1C, ADIFF, CRP, TSH, CMP, ANEU, ESR #### [address] [address] Urea nitrogen [Mass/Vol] 17 mg/dL Normal 7-18 [facility] ([place]) Comment on above: Performed By: #### C BC, GFR, A1C, ADIFF, CRP, TSH, CMP, ANEU, ESR #### [address] [address] CRPon 03-06-2024 C-Reactive Protein 0.1 mg/dL Normal 0.0-0.3 [facility] ([place]) Comment on above: Performed By: #### C BC, GFR, A1C, ADIFF, CRP, TSH, CMP, ANEU, ESR #### [address] [address] ESRon 03-06-2024 Erythrocyte Sed Rate 9 mm/hr Normal 0-30 [facility] ([place]) Comment on above: Performed By: #### C BC, GFR, A1C, ADIFF, CRP, TSH, CMP, ANEU, ESR #### [place] [address] FT3on 03-06-2024 Free T3 [Mass/Vol] 2.44 pg/mL Normal 2.30-4.00 [facility] ([place]) Comment on above: Performed By: #### C BC, GFR, A1C, ADIFF, CRP, TSH, CMP, ANEU, ESR #### [place] [address] FT4on 03-06-2024 Free T4 [Mass/Vol] 0.81 ng/dL Normal 0.76-1.46 [facility] ([place]) Comment on above: Performed By: #### C BC, GFR, A1C, ADIFF, CRP, TSH, CMP, ANEU, ESR #### [place] [address] LIPIDon 03-06-2024 Cholesterol [Mass/Vol] 163 mg/dL Normal 0-200 [facility] ([place]) Comment on above: Result Comment: Chol esterol Reference Interval: Less than 200 Desirable 200-239 Borderline high risk 240 and above High risk Performed By: #### C BC, GFR, A1C, ADIFF, CRP, TSH, CMP, ANEU, ESR #### [address] [address] Cholesterol in HDL [Mass/Vol] 49 mg/dL Normal 40-60 [facility] ([place]) Comment on above: Performed By: #### C BC, GFR, A1C, ADIFF, CRP, TSH, CMP, ANEU, ESR #### [address] [address] Cholesterol in LDL [Mass/Vol] 87 mg/dL Normal 0-130 [facility] ([place]) Comment on above: Performed By: #### C BC, GFR, A1C, ADIFF, CRP, TSH, CMP, ANEU, ESR #### [address] [address] Triglyceride [Mass/Vol] 133 mg/dL Normal 0-150 [facility] ([place]) Comment on above: Result Comment: Trig lyceride Reference Interval: Less than 150 Normal 150-199 Borderline high risk 200-499 High risk 500 or higher Very high risk Performed By: #### C BC, GFR, A1C, ADIFF, CRP, TSH, CMP, ANEU, ESR #### [address] [address] TSHon 03-06-2024 TSH Qn 4.52 m[IU]/L High 0.36-3.74 [facility] ([place]) Comment on above: Performed By: #### C BC, GFR, A1C, ADIFF, CRP, TSH, CMP, ANEU, ESR #### [place] [address] URICon 03-06-2024 Uric Acid Lvl 6.3 mg/dL High 2.6-6.2 [facility] ([place]) Comment on above: Performed By: #### C BC, GFR, A1C, ADIFF, CRP, TSH, CMP, ANEU, ESR #### [address] [address] Absolute lymphocyte countOrd ered By: Katalina Torres on 12-28-2023 Lymphocytes Auto (Unsp spec) [#/Vol] 2.31 10*3/uL 0.83-4.51 [facility] Automated lymphocyte count a s percentage of total leukocytesOrdered By: Katalina Torrse on 12-28-2023 Lymphocytes/100 WBC Auto (Unsp spec) 33.3 % 19-41 [facility] Basophil percentageOrdered B y: Katalina Torres on 12-28-2023 Basophils/100 WBC (Bld) 0.6 % 0-1 [facility] Chloride [Moles/Vol] 104 mmol/L 98-107 [facility] Eosinophils/100 WBC (Bld) 1.9 % 0-5 [facility] Glucose [Mass/Vol] 161 mg/dL 74-106 [facility] Comment on above: Fasting Glucose resu lt greater than or equal to 126 mg/dL suggests DIABETES MELLITUS per A.D.A. criteria. Hemoglobin (Bld) [Mass/Vol] 12.4 g/dL 12.0-15.0 [facility] Monocytes/100 WBC (Bld) 4.9 % 0-10 [facility] Neutrophils (Bld) [#/Vol] 4.1 10*3/uL 2.0-7.7 [facility] Neutrophils/100 WBC (Bld) 59.2 % 47-70 [facility] Potassium [Moles/Vol] 3.3 mmol/L 3.5-5.1 [facility] Sodium [Moles/Vol] 140 mmol/L 136-145 [facility] WBC (Bld) [#/Vol] 6.9 10*3/uL 4.4-11.0 [facility] Determination of erythrocyte mean corpuscular volume (MCV)Ordered By: Katalina Torres on 12-28-2023 MCV (RBC) [Entitic vol] 88.6 fL 81-99 [facility] Erythrocyte distribution wid th ratioOrdered By: Katalina Torres on 12-28-2023 Erythrocyte distribution width (RBC) [Ratio] 13.6 % 11.6-14.6 [facility] Erythrocyte distribution wid th standard deviationOrdered By: Katalina Torres on 12-28-2023 Erythrocyte distribution width (RBC) [Entitic vol] 44.2 fL 35.1-43.9 [facility] Hematocrit Auto (Bld) [Volum e fraction]Ordered By: Katalina Torres on 12-28-2023 Hematocrit (Bld) [Volume fraction] 38.8 % 37-47 [facility] Immature granulocytes/100 WB C Auto (Bld)Ordered By: Katalina Torres on 12-28-2023 Immature granulocytes/100 WBC (Bld) 0.100 % 0.0-0.9 [facility] Comment on above: IG% - Immature Granu locytes (promyelocytes, myelocytes and metamyelocytes) > 1% indicates that a LEFT SHIFT is Present. Laboratory - Chemistry and C hemistry - challengeOrdered By: Katalina Torres on 12-28-2023 CO2 [Moles/Vol] 30.0 mmol/L 21.0-32.0 [facility] Natriuretic peptide B (Bld) [Mass/Vol] 61.6 pg/mL 0-100 [facility] Urea nitrogen/Creatinine [Mass ratio] 19.4 mg/mg 10-20 [facility] Laboratory - Hematology and Cell countsOrdered By: Katalina Torres on 12-28-2023 MCH (RBC) [Entitic mass] 28.3 pg 27.0-32.0 [facility] MCHC (RBC) [Mass/Vol] 32.0 g/dL 32-36 [facility] Nucleated RBC/100 WBC (Bld) [Ratio] 0 % 0-5 [facility] Platelet mean volume (Bld) [Entitic vol] 10.5 fL 6.2-12.0 [facility] Platelets (Bld) [#/Vol] 247 10*3/uL 150-450 [facility] No Panel InformationOrdered By: Katalina Torres on 12-28-2023 Estimated GFR (MDRD) Amer 80 mL/min >60 [facility] Comment on above: GFR Calc Estimated GFR (MDRD) Non-Af Amer 66 mL/min >60 [facility] Comment on above: Non- GFR Calc RBC Auto (Bld) [#/Vol]Ordere d By: Katalina Torres on 12-28-2023 RBC (Bld) [#/Vol] 4.38 10*6/uL 4.2-5.4 [facility] Serum or plasma calcium inga urement (mass/volume)Ordered By: Katalina Torres on 12-28-2023 Calcium [Mass/Vol] 9.7 mg/dL 8.5-10.1 [facility] Serum or plasma creatinine m easurement (mass/volume)Ordered By: Katalina Torres on 12-28-2023 Creatinine [Mass/Vol] 0.88 mg/dL 0.55-1.02 [facility] Comment on above: The validity of the calculated GFR & GFRAA in patients over 70 years has not been determined. Clinical correlation is essential. Serum or plasma thyroid stim ulating hormone (TSH) measurement (units/volume)Ordered By: Katalina Torres on 12-28-2023 TSH Qn 3.53 uIU/mL 0.358-3.74 [facility] Serum or plasma thyroxine (T 4) measurement (mass/volume)Ordered By: Katalina Torres on 12-28-2023 T4 [Mass/Vol] 9.0 ug/dL 4.8-13.9 [facility] Serum or plasma urea nitroge n measurement (mass/volume)Ordered By: Katalina Torres on 12-28-2023 Urea nitrogen [Mass/Vol] 17 mg/dL 7-18 [facility] Thin prep Papanicolaou smear with manual screeningOrdered By: Katalina Torres on 12-28-2023 Thin prep Papanicolaou smear with manual screening 6 5-15 [facility] Basophil percentageOrdered B y: Katlaina Torres on 12-15-2023 Chloride [Moles/Vol] 107 mmol/L 98-107 [facility] Glucose [Mass/Vol] 153 mg/dL 74-106 [facility] Comment on above: Fasting Glucose resu lt greater than or equal to 126 mg/dL suggests DIABETES MELLITUS per A.D.A. criteria. Potassium [Moles/Vol] 3.8 mmol/L 3.5-5.1 [facility] Sodium [Moles/Vol] 142 mmol/L 136-145 [facility] Laboratory - Chemistry and C hemistry - challengeOrdered By: Katalina Torres on 12-15-2023 CO2 [Moles/Vol] 30.0 mmol/L 21.0-32.0 [facility] Urea nitrogen/Creatinine [Mass ratio] 8.5 mg/mg 10-20 [facility] No Panel InformationOrdered By: Katalina Torres on 12-15-2023 Estimated GFR (MDRD) Amer 73 mL/min >60 [facility] Comment on above: GFR Calc Estimated GFR (MDRD) Non-Af Amer 61 mL/min >60 [facility] Comment on above: Non- GFR Calc Serum or plasma calcium inga urement (mass/volume)Ordered By: Katalina Torres on 12-15-2023 Calcium [Mass/Vol] 9.7 mg/dL 8.5-10.1 [facility] Serum or plasma creatinine m easurement (mass/volume)Ordered By: Katalina Torres on 12-15-2023 Creatinine [Mass/Vol] 0.94 mg/dL 0.55-1.02 [facility] Comment on above: The validity of the calculated GFR & GFRAA in patients over 70 years has not been determined. Clinical correlation is essential. Serum or plasma urea nitroge n measurement (mass/volume)Ordered By: Katalina Torres on 12-15-2023 Urea nitrogen [Mass/Vol] 8 mg/dL 7-18 [facility] Thin prep Papanicolaou smear with manual screeningOrdered By: Katalina Torres on 12-15-2023 Thin prep Papanicolaou smear with manual screening 5 5-15 [facility] Absolute lymphocyte countOrd ered By: Lesley Lopez on 11-20-2023 Lymphocytes Auto (Unsp spec) [#/Vol] 2.64 10*3/uL 0.83-4.51 [facility] Activated partial thrombopla stin time (aPTT) in platelet poor plasma by coagulation aOrdered By: Lesley Lopez on 11-20-2023 aPTT Coag (PPP) [Time] 31.8 s 24.1-36.2 [facility] Automated lymphocyte count a s percentage of total leukocytesOrdered By: Lesley Lopez on 11-20-2023 Lymphocytes/100 WBC Auto (Unsp spec) 38.0 % 19-41 [facility] Basophil percentageOrdered B y: Lesley Lopez on 11-20-2023 Basophils/100 WBC (Bld) 0.6 % 0-1 [facility] Chloride [Moles/Vol] 109 mmol/L 98-107 [facility] Eosinophils/100 WBC (Bld) 1.9 % 0-5 [facility] Glucose [Mass/Vol] 169 mg/dL 74-106 [facility] Comment on above: Fasting Glucose resu lt greater than or equal to 126 mg/dL suggests DIABETES MELLITUS per A.D.A. criteria. Hemoglobin (Bld) [Mass/Vol] 11.4 g/dL 12.0-15.0 [facility] Monocytes/100 WBC (Bld) 5.8 % 0-10 [facility] Neutrophils (Bld) [#/Vol] 3.7 10*3/uL 2.0-7.7 [facility] Neutrophils/100 WBC (Bld) 53.4 % 47-70 [facility] Potassium [Moles/Vol] 4.2 mmol/L 3.5-5.1 [facility] Sodium [Moles/Vol] 141 mmol/L 136-145 [facility] WBC (Bld) [#/Vol] 6.9 10*3/uL 4.4-11.0 [facility] Determination of erythrocyte mean corpuscular volume (MCV)Ordered By: Lesley Lopez on 11-20-2023 MCV (RBC) [Entitic vol] 88.9 fL 81-99 [facility] Erythrocyte distribution wid th ratioOrdered By: Lesley Lopez on 11-20-2023 Erythrocyte distribution width (RBC) [Ratio] 14.2 % 11.6-14.6 [facility] Erythrocyte distribution wid th standard deviationOrdered By: Lesley Lopez on 11-20-2023 Erythrocyte distribution width (RBC) [Entitic vol] 45.7 fL 35.1-43.9 [facility] Hematocrit Auto (Bld) [Volum e fraction]Ordered By: Lesley Lopez on 11-20-2023 Hematocrit (Bld) [Volume fraction] 36.2 % 37-47 [facility] Immature granulocytes/100 WB C Auto (Bld)Ordered By: Lesley Lopez on 11-20-2023 Immature granulocytes/100 WBC (Bld) 0.300 % 0.0-0.9 [facility] Comment on above: IG% - Immature Granu locytes (promyelocytes, myelocytes and metamyelocytes) > 1% indicates that a LEFT SHIFT is Present. Laboratory - Chemistry and C hemistry - challengeOrdered By: Lesley Lopez on 11-20-2023 CO2 [Moles/Vol] 29.0 mmol/L 21.0-32.0 [facility] Urea nitrogen/Creatinine [Mass ratio] 16.0 mg/mg 10-20 [facility] Laboratory - CoagulationOrde red By: Lesley Lopez on 11-20-2023 INR Coag (Bld) [Relative time] 1.2 {INR} [facility] PT Coag (PPP) [Time] 15.6 s 11.7-14.9 [facility] Laboratory - Hematology and Cell countsOrdered By: Lesley Lopez on 11-20-2023 MCH (RBC) [Entitic mass] 28.0 pg 27.0-32.0 [facility] MCHC (RBC) [Mass/Vol] 31.5 g/dL 32-36 [facility] Nucleated RBC/100 WBC (Bld) [Ratio] 0 % 0-5 [facility] Platelet mean volume (Bld) [Entitic vol] 10.6 fL 6.2-12.0 [facility] Platelets (Bld) [#/Vol] 222 10*3/uL 150-450 [facility] No Panel InformationOrdered By: Lesley Lopez on 11-20-2023 Estimated Creatinine Clearance Calc 40.41 ml/min [facility] Estimated GFR (MDRD) Amer 64 mL/min >60 [facility] Comment on above: GFR Calc Estimated GFR (MDRD) Non-Af Amer 53 mL/min >60 [facility] Comment on above: Non- GFR Calc RBC Auto (Bld) [#/Vol]Ordere d By: Lesley Lopez on 11-20-2023 RBC (Bld) [#/Vol] 4.07 10*6/uL 4.2-5.4 [facility] Serum or plasma calcium inga urement (mass/volume)Ordered By: Lesley Lopez on 11-20-2023 Calcium [Mass/Vol] 9.1 mg/dL 8.5-10.1 [facility] Serum or plasma creatinine m easurement (mass/volume)Ordered By: Lesley Lopez on 11-20-2023 Creatinine [Mass/Vol] 1.06 mg/dL 0.55-1.02 [facility] Comment on above: The validity of the calculated GFR & GFRAA in patients over 70 years has not been determined. Clinical correlation is essential. Serum or plasma urea nitroge n measurement (mass/volume)Ordered By: Lesley Lopez on 11-20-2023 Urea nitrogen [Mass/Vol] 17 mg/dL -18 [facility] Thin prep Papanicolaou smear with manual screeningOrdered By: Lesley Lopez on 11-20-2023 Thin prep Papanicolaou smear with manual screening 3 5-15 [facility] Basophil percentageOrdered B y: Katalina Torres on 11-04-2023 Chloride [Moles/Vol] 106 mmol/L 98-107 [facility] Glucose [Mass/Vol] 98 mg/dL 74-106 [facility] Potassium [Moles/Vol] 4.1 mmol/L 3.5-5.1 [facility] Sodium [Moles/Vol] 137 mmol/L 136-145 [facility] Laboratory - Chemistry and C hemistry - challengeOrdered By: Katalina Torres on 11-04-2023 CO2 [Moles/Vol] 30.0 mmol/L 21.0-32.0 [facility] Urea nitrogen/Creatinine [Mass ratio] 12.7 mg/mg 10-20 [facility] No Panel InformationOrdered By: Katalina Torres on 11-04-2023 Estimated GFR (MDRD) Amer 61 mL/min >60 [facility] Comment on above: GFR Calc Estimated GFR (MDRD) Non-Af Amer 51 mL/min >60 [facility] Comment on above: Non- GFR Calc Serum or plasma calcium inga urement (mass/volume)Ordered By: Katalina Torres on 11-04-2023 Calcium [Mass/Vol] 10.0 mg/dL 8.5-10.1 [facility] Serum or plasma creatinine m easurement (mass/volume)Ordered By: Katalina Torres on 11-04-2023 Creatinine [Mass/Vol] 1.10 mg/dL 0.55-1.02 [facility] Comment on above: The validity of the calculated GFR & GFRAA in patients over 70 years has not been determined. Clinical correlation is essential. Serum or plasma urea nitroge n measurement (mass/volume)Ordered By: Katalina Torres on 11-04-2023 Urea nitrogen [Mass/Vol] 14 mg/dL 7-18 [facility] Thin prep Papanicolaou smear with manual screeningOrdered By: Katalina Torres on 11-04-2023 Thin prep Papanicolaou smear with manual screening 1 5-15 [facility] .Auto Diffon 11-01-2023 Basophil, Absolute 0.0 10 3/mcL Normal 0.0-0.2 [facility] ([place]) Comment on above: Performed By: #### C BC, GFR, A1C, ADIFF, CRP, TSH, CMP, ANEU, ESR #### [address] [address] Basophils/100 WBC (Bld) 0.5 % Normal 0.0-2.5 [facility] ([place]) Comment on above: Performed By: #### C BC, GFR, A1C, ADIFF, CRP, TSH, CMP, ANEU, ESR #### [address] [address] Eosinophil, Absolute 0.1 10 3/mcL Normal 0.0-0.4 [facility] ([place]) Comment on above: Performed By: #### C BC, GFR, A1C, ADIFF, CRP, TSH, CMP, ANEU, ESR #### [address] [address] Eosinophils/100 WBC (Bld) 1.2 % Normal 0.0-7.0 [facility] ([place]) Comment on above: Performed By: #### C BC, GFR, A1C, ADIFF, CRP, TSH, CMP, ANEU, ESR #### [address] [address] Lymphocyte, Absolute 2.9 10 3/mcL Normal 0.8-3.9 [facility] ([place]) Comment on above: Performed By: #### C BC, GFR, A1C, ADIFF, CRP, TSH, CMP, ANEU, ESR #### [address] [address] Lymphocytes/100 WBC (Bld) 37.6 % Normal 10.0-50.0 [facility] ([place]) Comment on above: Performed By: #### C BC, GFR, A1C, ADIFF, CRP, TSH, CMP, ANEU, ESR #### [address] [address] Monocyte, Absolute 0.3 10 3/mcL Normal 0.2-1.0 [facility] ([place]) Comment on above: Performed By: #### C BC, GFR, A1C, ADIFF, CRP, TSH, CMP, ANEU, ESR #### [address] [address] Monocytes/100 WBC (Bld) 4.2 % Normal 1.7-13.0 [facility] ([place]) Comment on above: Performed By: #### C BC, GFR, A1C, ADIFF, CRP, TSH, CMP, ANEU, ESR #### [address] [address] Neutrophils/100 WBC (Bld) 56.5 % Normal 37.0-80.0 [facility] ([place]) Comment on above: Performed By: #### C BC, GFR, A1C, ADIFF, CRP, TSH, CMP, ANEU, ESR #### Jonn [address] [address] .GFRon 11-01-2023 GFR 63 ml/min/1.73sqm Normal [facility] ([place]) Comment on above: Result Comment: GFR Population [...] ADIFF, CRP, TSH, CMP, ANEU, ESR #### [address] [address] GFR Non- 52 ml/min/1.73sqm Normal [facility] ([place]) Comment on above: Result Comment: GFR Population [...] ADIFF, CRP, TSH, CMP, ANEU, ESR #### [address] [address] .NEUABSon 11-01-2023 Neutrophil, Absolute 4.4 10 3/mcL Normal 2.9-6.2 [facility] ([place]) Comment on above: Performed By: #### C BC, GFR, A1C, ADIFF, CRP, TSH, CMP, ANEU, ESR #### [place] [id number] A1Con 11-01-2023 HbA1c (Bld) [Mass fraction] 5.9 % Normal 4.3-6.4 [facility] ([place]) Comment on above: Performed By: #### C BC, GFR, A1C, ADIFF, CRP, TSH, CMP, ANEU, ESR #### [address] [address] CBCon 11-01-2023 Erythrocyte distribution width (RBC) [Ratio] 15.4 % High 11.5-14.5 [facility] ([place]) Comment on above: Performed By: #### C BC, GFR, A1C, ADIFF, CRP, TSH, CMP, ANEU, ESR #### [address] [address] Hematocrit (Bld) [Volume fraction] 39.7 % Normal 37.0-47.0 [facility] ([place]) Comment on above: Performed By: #### C BC, GFR, A1C, ADIFF, CRP, TSH, CMP, ANEU, ESR #### [address] [address] Hgb 13.3 G/dL Normal 12.0-16.0 [facility] ([place]) Comment on above: Performed By: #### C BC, GFR, A1C, ADIFF, CRP, TSH, CMP, ANEU, ESR #### [address] [address] MCH (RBC) [Entitic mass] 28.3 pg Normal 27.0-31.2 [facility] ([place]) Comment on above: Performed By: #### C BC, GFR, A1C, ADIFF, CRP, TSH, CMP, ANEU, ESR #### [address] [address] MCHC 33.6 G/dL Normal 33.0-37.0 [facility] ([place]) Comment on above: Performed By: #### C BC, GFR, A1C, ADIFF, CRP, TSH, CMP, ANEU, ESR #### [address] [address] MCV (RBC) [Entitic vol] 84.4 fL Normal 80.0-94.0 [facility] ([place]) Comment on above: Performed By: #### C BC, GFR, A1C, ADIFF, CRP, TSH, CMP, ANEU, ESR #### [address] [address] Platelet 251 10 3/mcL Normal 130-400 [facility] ([place]) Comment on above: Performed By: #### C BC, GFR, A1C, ADIFF, CRP, TSH, CMP, ANEU, ESR #### [address] [address] Platelet mean volume (Bld) [Entitic vol] 8.7 fL Normal 7.4-10.4 [facility] ([place]) Comment on above: Performed By: #### C BC, GFR, A1C, ADIFF, CRP, TSH, CMP, ANEU, ESR #### [address] [address] RBC 4.70 10 6/mcL Normal 4.20-5.40 [facility] ([place]) Comment on above: Performed By: #### C BC, GFR, A1C, ADIFF, CRP, TSH, CMP, ANEU, ESR #### [address] [address] WBC 7.7 10 3/mcL Normal 4.6-10.8 [facility] ([place]) Comment on above: Performed By: #### C BC, GFR, A1C, ADIFF, CRP, TSH, CMP, ANEU, ESR #### [address] [address] CMPon 11-01-2023 Albumin Level 3.3 G/dL Low 3.4-4.8 [facility] ([place]) Comment on above: Performed By: #### C BC, GFR, A1C, ADIFF, CRP, TSH, CMP, ANEU, ESR #### [address] [address] Albumin/Globulin [Mass ratio] 0.8 {ratio} Low 1.1-2.5 [facility] ([place]) Comment on above: Performed By: #### C BC, GFR, A1C, ADIFF, CRP, TSH, CMP, ANEU, ESR #### [address] [address] ALP [Catalytic activity/Vol] 108 U/L Normal 40-135 [facility] ([place]) Comment on above: Performed By: #### C BC, GFR, A1C, ADIFF, CRP, TSH, CMP, ANEU, ESR #### [address] [address] ALT [Catalytic activity/Vol] 19 U/L Normal 14-59 [facility] ([place]) Comment on above: Performed By: #### C BC, GFR, A1C, ADIFF, CRP, TSH, CMP, ANEU, ESR #### [address] [address] AST [Catalytic activity/Vol] 20 U/L Normal 10-40 [facility] ([place]) Comment on above: Performed By: #### C BC, GFR, A1C, ADIFF, CRP, TSH, CMP, ANEU, ESR #### [address] [address] Bili Total 0.4 mg/dL Normal 0.2-1.0 [facility] ([place]) Comment on above: Result Comment: Use of this assay is not recommended for patients undergoing treatment with eltrombopag due to the potential for falsely elevated results. Performed By: #### C BC, GFR, A1C, ADIFF, CRP, TSH, CMP, ANEU, ESR #### [address] [address] BUN/Creatinine Ratio 13 ratio Normal 7-27 [facility] ([place]) Comment on above: Performed By: #### C BC, GFR, A1C, ADIFF, CRP, TSH, CMP, ANEU, ESR #### [address] [address] Calcium [Mass/Vol] 10.0 mg/dL Normal 8.4-10.2 [facility] ([place]) Comment on above: Performed By: #### C BC, GFR, A1C, ADIFF, CRP, TSH, CMP, ANEU, ESR #### [address] [address] Chloride [Moles/Vol] 102 mmol/L Normal 98-107 [facility] ([place]) Comment on above: Performed By: #### C BC, GFR, A1C, ADIFF, CRP, TSH, CMP, ANEU, ESR #### [address] [address] CO2 [Moles/Vol] 30 mmol/L Normal 23-31 [facility] ([place]) Comment on above: Performed By: #### C BC, GFR, A1C, ADIFF, CRP, TSH, CMP, ANEU, ESR #### [address] [address] Creatinine [Mass/Vol] 1.02 mg/dL Normal 0.55-1.02 [facility] ([place]) Comment on above: Performed By: #### C BC, GFR, A1C, ADIFF, CRP, TSH, CMP, ANEU, ESR #### [address] [address] Electrolyte Balance 9.0 mEq/L Normal 4.0-15.0 [facility]ending [facility] to [facility] ([place]) Comment on above: Performed By: #### C BC, GFR, A1C, ADIFF, CRP, TSH, CMP, ANEU, ESR #### [address] [address] Globulin 4.3 G/dL Normal [facility] ([place]) Comment on above: Performed By: #### C BC, GFR, A1C, ADIFF, CRP, TSH, CMP, ANEU, ESR #### [address] [address] Glucose [Mass/Vol] 94 mg/dL Normal 83-110 [facility] ([place]) Comment on above: Performed By: #### C BC, GFR, A1C, ADIFF, CRP, TSH, CMP, ANEU, ESR #### [address] [address] Potassium [Moles/Vol] 4.3 mmol/L Normal 3.5-5.1 [facility] ([place]) Comment on above: Performed By: #### C BC, GFR, A1C, ADIFF, CRP, TSH, CMP, ANEU, ESR #### [address] [address] Sodium [Moles/Vol] 141 mmol/L Normal 136-145 [facility] ([place]) Comment on above: Performed By: #### C BC, GFR, A1C, ADIFF, CRP, TSH, CMP, ANEU, ESR #### [address] [address] Total Protein 7.6 G/dL Normal 6.4-8.2 [facility] ([place]) Comment on above: Performed By: #### C BC, GFR, A1C, ADIFF, CRP, TSH, CMP, ANEU, ESR #### [address] [address] Urea nitrogen [Mass/Vol] 13 mg/dL Normal 7-18 [facility] ([place]) Comment on above: Performed By: #### C BC, GFR, A1C, ADIFF, CRP, TSH, CMP, ANEU, ESR #### [address] [address] LIPIDon 11-01-2023 Cholesterol [Mass/Vol] 172 mg/dL Normal 0-200 [facility] ([place]) Comment on above: Result Comment: Chol esterol Reference Interval: Less than 200 Desirable 200-239 Borderline high risk 240 and above High risk Performed By: #### C BC, GFR, A1C, ADIFF, CRP, TSH, CMP, ANEU, ESR #### [address] [address] Cholesterol in HDL [Mass/Vol] 53 mg/dL Normal 40-60 [facility] ([place]) Comment on above: Performed By: #### C BC, GFR, A1C, ADIFF, CRP, TSH, CMP, ANEU, ESR #### [place] [address] [place], [place] [address] Cholesterol in LDL [Mass/Vol] 97 mg/dL Normal 0-130 [facility] ([place]) Comment on above: Performed By: #### C BC, GFR, A1C, ADIFF, CRP, TSH, CMP, ANEU, ESR #### [place] [address] [place], [place] [address] Triglyceride [Mass/Vol] 111 mg/dL Normal 0-150 [facility] ([place]) Comment on above: Result Comment: Trig lyceride Reference Interval: Less than 150 Normal 150-199 Borderline high risk 200-499 High risk 500 or higher Very high risk Performed By: #### C BC, GFR, A1C, ADIFF, CRP, TSH, CMP, ANEU, ESR #### [address] [address] Absolute lymphocyte countOrd ered By: Katalina Torres on 10-24-2023 Lymphocytes Auto (Unsp spec) [#/Vol] 2.52 10*3/uL 0.83-4.51 [facility] Automated lymphocyte count a s percentage of total leukocytesOrdered By: Katalina Torres on 10-24-2023 Lymphocytes/100 WBC Auto (Unsp spec) 40.4 % 19-41 [facility] Basophil percentageOrdered B y: Katalina Torres on 10-24-2023 Basophils/100 WBC (Bld) 0.6 % 0-1 [facility] Chloride [Moles/Vol] 108 mmol/L 98-107 [facility] Eosinophils/100 WBC (Bld) 2.6 % 0-5 [facility] Glucose [Mass/Vol] 118 mg/dL 74-106 [facility] Comment on above: Fasting Glucose resu lt from 100 to 125 mg/dL suggests IMPAIRED HOMEOSTASIS per A.D.A. criteria. Hemoglobin (Bld) [Mass/Vol] 12.0 g/dL 12.0-15.0 [facility] Monocytes/100 WBC (Bld) 6.4 % 0-10 [facility] Neutrophils (Bld) [#/Vol] 3.1 10*3/uL 2.0-7.7 [facility] Neutrophils/100 WBC (Bld) 49.8 % 47-70 [facility] Potassium [Moles/Vol] 4.0 mmol/L 3.5-5.1 [facility] Sodium [Moles/Vol] 141 mmol/L 136-145 [facility] WBC (Bld) [#/Vol] 6.2 10*3/uL 4.4-11.0 [facility] Determination of erythrocyte mean corpuscular volume (MCV)Ordered By: Katalina Torres on 10-24-2023 MCV (RBC) [Entitic vol] 88.1 fL 81-99 [facility] Erythrocyte distribution wid th ratioOrdered By: Katalina Torres on 10-24-2023 Erythrocyte distribution width (RBC) [Ratio] 13.7 % 11.6-14.6 [facility] Erythrocyte distribution wid th standard deviationOrdered By: Katalina Torres on 10-24-2023 Erythrocyte distribution width (RBC) [Entitic vol] 44.2 fL 35.1-43.9 [facility] Hematocrit Auto (Bld) [Volum e fraction]Ordered By: Katalina Torres on 10-24-2023 Hematocrit (Bld) [Volume fraction] 37.1 % 37-47 [facility] Immature granulocytes/100 WB C Auto (Bld)Ordered By: Katalina Torres on 10-24-2023 Immature granulocytes/100 WBC (Bld) 0.200 % 0.0-0.9 [facility] Comment on above: IG% - Immature Granu locytes (promyelocytes, myelocytes and metamyelocytes) > 1% indicates that a LEFT SHIFT is Present. Laboratory - Chemistry and C hemistry - challengeOrdered By: Katalina Torres on 10-24-2023 CO2 [Moles/Vol] 28.0 mmol/L 21.0-32.0 [facility] Natriuretic peptide B (Bld) [Mass/Vol] 144.8 pg/mL 0-100 [facility] Urea nitrogen/Creatinine [Mass ratio] 15.5 mg/mg 10-20 [facility] Laboratory - Hematology and Cell countsOrdered By: Katlaina Torres on 10-24-2023 MCH (RBC) [Entitic mass] 28.5 pg 27.0-32.0 [facility] MCHC (RBC) [Mass/Vol] 32.3 g/dL 32-36 [facility] Nucleated RBC/100 WBC (Bld) [Ratio] 0 % 0-5 [facility] Platelets (Bld) [#/Vol] 212 10*3/uL 150-450 [facility] No Panel InformationOrdered By: Katalina Torres on 10-24-2023 Estimated GFR (MDRD) Amer 66 mL/min >60 [facility] Comment on above: GFR Calc Estimated GFR (MDRD) Non-Af Amer 55 mL/min >60 [facility] Comment on above: Non- GFR Calc Platelet mean volume Frank-Ec ker (Bld) [Entitic vol]Ordered By: Katalina Torres on 10-24-2023 Platelet mean volume (Bld) [Entitic vol] 10.6 fL 6.2-12.0 [facility] RBC Auto (Bld) [#/Vol]Ordere d By: Katalina Torres on 10-24-2023 RBC (Bld) [#/Vol] 4.21 10*6/uL 4.2-5.4 [facility] Serum or plasma calcium inga urement (mass/volume)Ordered By: Katalina Torres on 10-24-2023 Calcium [Mass/Vol] 9.6 mg/dL 8.5-10.1 [facility] Serum or plasma creatinine m easurement (mass/volume)Ordered By: Katalina Torres on 10-24-2023 Creatinine [Mass/Vol] 1.03 mg/dL 0.55-1.02 [facility] Comment on above: The validity of the calculated GFR & GFRAA in patients over 70 years has not been determined. Clinical correlation is essential. Serum or plasma urea nitroge n measurement (mass/volume)Ordered By: Katalina Torres on 10-24-2023 Urea nitrogen [Mass/Vol] 16 mg/dL 7-18 [facility] Thin prep Papanicolaou smear with manual screeningOrdered By: Katalina Torres on 10-24-2023 Thin prep Papanicolaou smear with manual screening 5 5-[address] [facility] [address] ABDOMEN/PELVIS W/CONTRAST on 09-23-2023 CT ABDOMEN/PELVIS W/CONTRAST ORIGINAL EXAMINATION: CT OF THE ABDOMEN AND PELVIS WITH [id number]/21/2023 11:28 am TECHNIQUE: CT of the abdomen [...] 09/23/2023 7:56:38 AM Ordering Provider: ROSALIND RUBALCAVA [facility] ([place]) .GFRon 09-22-2023 GFR 60 ml/min/1.73sqm [facility] ([place]) Comment on above: Result Comment: GFR Population [...] CRP, TSH, CMP, ANEU, ESR #### [place] [address] GFR Non- 50 ml/min/1.73sqm [facility] ([place]) Comment on above: Result Comment: GFR Population [...] CRP, TSH, CMP, ANEU, ESR #### [address] [place], [place] [address] CREon 09-22-2023 Creatinine [Mass/Vol] 1.06 mg/dL High 0.55-1.02 [facility] ([place]) Comment on above: Performed By: #### C BC, GFR, A1C, ADIFF, CRP, TSH, CMP, ANEU, ESR #### [place] [address] [place], [place] [address] Absolute lymphocyte countOrd ered By: Judsonshoshana Hernandez on 08-15-2023 Lymphocytes Auto (Unsp spec) [#/Vol] 2.44 10*3/uL 0.83-4.51 [facility] Basophil percentageOrdered B y: Judson Hernandez on 08-15-2023 Basophil percentage 91 mg/dL 74-106 [facility] Basophil percentage 144 mmol/L 136-145 [facility] Basophil percentage 3.5 mmol/L 3.5-5.1 [facility] Basophil percentage 113 mmol/L 98-107 [facility] Basophils (Bld) [#/Vol] 10.1 10*3/uL 4.4-11.0 [facility] Basophils (Bld) [#/Vol] 7.0 10*3/uL 2.0-7.7 [facility] Basophils/100 WBC (Bld) 69.3 % 47-70 [facility] Basophils/100 WBC (Bld) 1.2 % 0-5 [facility] Basophils/100 WBC (Bld) 0.3 % 0-1 [facility] Chloride [Moles/Vol] 113 mmol/L 98-[facility] E[facility] WBC (Bld) 1.2 % 0-5 [facility] Glucose [Mass/Vol] 91 mg/dL 74-106 [facility] Neutrophils (Bld) [#/Vol] 7.0 10*3/uL 2.0-7.7 [facility] Neutrophils/100 WBC (Bld) 69.3 % 47-70 [facility] Potassium [Moles/Vol] 3.5 mmol/L 3.5-5.1 [facility] Sodium [Moles/Vol] 144 mmol/L 136-145 [facility] WBC (Bld) [#/Vol] 10.1 10*3/uL 4.4-11.0 [facility] Blood erythrocytes count (nu mber/volume)Ordered By: Judson Hernandez on 08-15-2023 RBC (Bld) [#/Vol] 3.61 10*6/uL 4.2-5.4 [facility] Blood hemoglobin measurement (mass/volume)Ordered By: Judson Hernandez on 08-15-2023 Hemoglobin (Bld) [Mass/Vol] 10.5 g/dL 12.0-15.0 [facility] Blood lymphocytes/100 leukoc ytesOrdered By: Judson Hernandez on 08-15-2023 Lymphocytes/100 WBC (Bld) 24.2 % 19-41 [facility] Blood monocytes/100 leukocyt esOrdered By: Judson Hernandez on 08-15-2023 Monocytes/100 WBC (Bld) 4.8 % 0-10 [facility] Blood platelet mean volumeOr dered By: Judson Hernandez on 08-15-2023 Platelet mean volume (Bld) [Entitic vol] 9.6 fL 6.2-12.0 [facility] Determination of erythrocyte mean corpuscular volume (MCV)Ordered By: Judson Hernandez on 08-15-2023 MCV (RBC) [Entitic vol] 93.4 fL 81-99 [facility] Glucose Glucometer (BldC) [M ass/Vol]Ordered By: Cirilo Fine on 08-15-2023 Glucose [Mass/Vol] 181 mg/dL 74-106 [facility] Comment on above: MANAGEMENT OF PATIEN T CARE PER NURSING PROTOCOL Hematocrit Auto (Bld) [Volum e fraction]Ordered By: Judson Hernandez on 08-15-2023 Hematocrit (Bld) [Volume fraction] 33.7 % 37-47 [facility] Laboratory - Chemistry and C hemistry - challengeOrdered By: Judson Hernandez on 08-15-2023 CO2 [Moles/Vol] 29.0 mmol/L 21.0-32.0 [facility] Urea nitrogen/Creatinine [Mass ratio] 12.9 mg/mg 10- [facility] Laboratory - Hematology and Cell countsOrdered By: Judson Hernandez on 08-15-2023 Erythrocyte distribution width (RBC) [Entitic vol] 43.9 fL 35.1-43.9 [facility] Erythrocyte distribution width (RBC) [Ratio] 12.9 % 11.6-14.6 [facility] Immature granulocytes/100 WBC (Bld) 0.200 % 0.0-0.9 [facility] Comment on above: IG% - Immature Granu locytes (promyelocytes, myelocytes and metamyelocytes) > 1% indicates that a LEFT SHIFT is Present. MCH (RBC) [Entitic mass] 29.1 pg 27.0-32.0 [facility] Nucleated RBC/100 WBC (Bld) [Ratio] 0 % 0-5 [facility] MCHC Auto (RBC) [Mass/Vol]Or dered By: Judson Hernandez on 08-15-2023 MCHC (RBC) [Mass/Vol] 31.2 g/dL 32-36 [facility] No Panel InformationOrdered By: Judson Hernandez on 08-15-2023 Estimated Creatinine Clearance Calc 40.58 ml/min [facility] Estimated GFR (MDRD) Amer 82 mL/min >60 [facility] Comment on above: GFR Calc Estimated GFR (MDRD) Non-Af Amer 68 mL/min >60 [facility] Comment on above: Non- GFR Calc 29.1 pg 27.0-32.0 [facility] 12.9 % 11.6-14.6 [facility] 43.9 fl 35.1-43.9 [facility] 0.200 % 0.0-0.9 [facility] 0 % 0-5 [facility] 68 mL/min >60 [facility] 82 mL/min >60 [facility] 40.58 ml/min [facility] 12.9 RATIO 10- [facility] 29.0 mmol/L 21.0-32.0 [facility] Platelets bldOrdered By: Cristian Hernandez on 08-15-2023 Platelets (Bld) [#/Vol] 241 10*3/uL 150-450 [facility] Serum or plasma calcium inga urement (mass/volume)Ordered By: Judson Hernandez on 08-15-2023 Calcium [Mass/Vol] 8.5 mg/dL 8.5-10.1 [facility] Serum or plasma creatinine m easurement (mass/volume)Ordered By: Judson Hernandez on 08-15-2023 Creatinine [Mass/Vol] 0.86 mg/dL 0.55-1.02 [facility] Comment on above: The validity of the calculated GFR & GFRAA in patients over 70 years has not been determined. Clinical correlation is essential. Serum or plasma urea nitroge n measurement (mass/volume)Ordered By: Judson Hernandez on 08-15-2023 Urea nitrogen [Mass/Vol] 11 mg/dL 7-18 [facility] Thin prep Papanicolaou smear with manual screeningOrdered By: Judson Hernandez on 08-15-2023 Thin prep Papanicolaou smear with manual screening 2 5-15 [facility] Absolute lymphocyte countOrd ered By: Enrrique Eric on 08-14-2023 Lymphocytes Auto (Unsp spec) [#/Vol] 0.89 10*3/uL 0.83-4.51 [facility] Basophil percentageOrdered B y: Enrrique Eric on 08-14-2023 Basophil percentage 0 SEEN /hpf 0-5 [facility] Basophil percentage 209 mg/dL 74-106 [facility] Basophil percentage 7.6 g/dL 6.4-8.2 [facility] Basophil percentage 0.50 mg/dL 0.20-1.00 [facility] Basophil percentage 138 mmol/L 136-145 [facility] Basophil percentage 3.5 mmol/L 3.5-5.1 [facility] Basophil percentage 105 mmol/L 98-107 [facility] Basophil percentage 1.8 mmol/L 0.4-2.0 [facility] Basophils (Bld) [#/Vol] 12.5 10*3/uL 4.4-11.0 [facility] Basophils (Bld) [#/Vol] 11.0 10*3/uL 2.0-7.7 [facility] Basophils/100 WBC (Bld) 88.1 % 47-70 [facility] Basophils/100 WBC (Bld) 0.2 % 0-5 [facility] Basophils/100 WBC (Bld) 0.3 % 0-1 [facility] Bilirubin [Mass/Vol] 0.50 mg/dL 0.20-1.00 [facility] Comment on above: For patients on eltr ombopag therapy, use of Dimension [place] [employer] TBIL is not recommended. Lactate [Moles/Vol] 1.8 mmol/L 0.4-2.0 [facility] Protein [Mass/Vol] 7.6 g/dL 6.4-8.2 [facility] Bilirubin Test strip Ql (U)O rdered By: Enrrique Eric on 08-14-2023 Bilirubin Ql (U) Negative Negative [facility] Blood erythrocytes count (nu mber/volume)Ordered By: Enrrique Eric on 08-14-2023 RBC (Bld) [#/Vol] 4.77 10*6/uL 4.2-5.4 [facility] Blood hemoglobin measurement (mass/volume)Ordered By: Enrrique Eric on 08-14-2023 Hemoglobin (Bld) [Mass/Vol] 13.9 g/dL 12.0-15.0 [facility] Blood lymphocytes/100 leukoc ytesOrdered By: Enrrique Eric on 08-14-2023 Lymphocytes/100 WBC (Bld) 7.1 % 19-41 [facility] Blood monocytes/100 leukocyt esOrdered By: Enrrique Eric on 08-14-2023 Monocytes/100 WBC (Bld) 3.7 % 0-10 [facility] Blood platelet mean volumeOr dered By: Enrrique Eric on 08-14-2023 Platelet mean volume (Bld) [Entitic vol] 10.0 fL 6.2-12.0 [facility] Determination of erythrocyte mean corpuscular volume (MCV)Ordered By: Enrrique Eric on 08-14-2023 MCV (RBC) [Entitic vol] 89.7 fL 81-99 [facility] Direct bilirubinOrdered By: Enrrique Eric on 08-14-2023 Bilirubin.direct [Mass/Vol] 0.07 mg/dL 0.00-0.30 [facility] Hematocrit Auto (Bld) [Volum e fraction]Ordered By: Enrrique Eric on 08-14-2023 Hematocrit (Bld) [Volume fraction] 42.8 % 37-47 [facility] INR in Blood by Coagulation assayOrdered By: Enrrique Eric on 08-14-2023 INR Coag (Bld) [Relative time] 1.3 {INR} [facility] Influenza virus A and B and SARS-CoV-2 (COVID-19) Ag panel - Upper respiratory specimOrdered By: Enrrique Eric on 08-14-2023 SARS-CoV-2 (COVID-19) RNA PACHECO+probe Ql (Resp) [facility] Ketones Test strip Ql (U)Ord ered By: Enrriqeu Eric on 08-14-2023 Ketones Ql (U) 5 mg/dl Negative [facility] Laboratory - Chemistry and C hemistry - challengeOrdered By: Enrrique Eric on 08-14-2023 ALP [Catalytic activity/Vol] 98 U/L 45-117 [facility] ALT [Catalytic activity/Vol] 14 U/L 13-56 [facility] Globulin (S) [Mass/Vol] 4.8 g/dL 2.2-4.2 [facility] Lipase [Catalytic activity/Vol] 17 U/L 13-75 [facility] Comment on above: Please note:LIPASE r evised reference range effective 23. New Lipase methodology. Expected to produce lower values than the previous assay method. NEW Reference Range: 13 - 75 U/L Laboratory - CoagulationOrde red By: Enrrique Eric on 08-14-2023 aPTT Coag (Bld) [Time] 28.7 s 24.1-36.2 [facility] PT Coag (PPP) [Time] 16.3 s 11.7-14.9 [facility] Laboratory - Microbiology an d Antimicrobial susceptibilityOrdered By: Enrrique Eric on 08-14-2023 Bacteria identified Cx Nom (Bld) No growth in 5 days. [facility] MCHC Auto (RBC) [Mass/Vol]Or dered By: Enrrique Eric on 08-14-2023 MCHC (RBC) [Mass/Vol] 32.5 g/dL 32-36 [facility] Mucus LM Ql (Urine sed)Order ed By: Enrrique Eric on 08-14-2023 Mucus Ql (Urine sed) 0 SEEN /hpf [facility] Nitrite Test strip Ql (U)Ord ered By: Enrrique Eric on 08-14-2023 Nitrite Ql (U) Negative Negative [facility] No Panel InformationOrdered By: Enrrique Eric on 08-14-2023 29.1 pg 27.0-32.0 [facility] 12.5 % 11.6-14.6 [facility] 41.1 fl 35.1-43.9 [facility] 0.600 % 0.0-0.9 [facility] 0 % 0-5 [facility] 16.3 SECONDS 11.7-14.9 [facility] 28.7 Seconds 24.1-36.2 [facility] 58 mL/min >60 [facility] 70 mL/min >60 [facility] 11.2 RATIO 10-20 [facility] 4.8 g/dL 2.2-4.2 [facility] 17 U/L 13-75 [facility] 98 U/L 45-117 [facility] 14 U/L 13-56 [facility] 27.0 mmol/L 21.0-32.0 [facility] Platelets bldOrdered By: Yvon Eric on 08-14-2023 Platelets (Bld) [#/Vol] 294 10*3/uL 150-450 [facility] Protein Test strip Ql (U)Ord ered By: Enrrique Eric on 08-14-2023 Protein Ql (U) 30 mg/dl Negative [facility] Serum or plasma albumin inga urement (mass/volume)Ordered By: Enrrique Eric on 08-14-2023 Albumin [Mass/Vol] 2.8 g/dL 3.2-5.0 [facility] Serum or plasma calcium inga urement (mass/volume)Ordered By: Enrrique Eric on 08-14-2023 Calcium [Mass/Vol] 9.2 mg/dL 8.5-10.1 [facility] Serum or plasma creatinine m easurement (mass/volume)Ordered By: Enrrique Eric on 08-14-2023 Creatinine [Mass/Vol] 0.98 mg/dL 0.55-1.02 [facility] Serum or plasma urea nitroge n measurement (mass/volume)Ordered By: Enrrique Eric on 08-14-2023 Urea nitrogen [Mass/Vol] 11 mg/dL 7-18 [facility] Squamous epithelial cells de tection in urine sediment by light microscopyOrdered By: Enrrique Eric on 08-14-2023 Epithelial cells.squamous LM Ql (Urine sed) 0 SEEN /hpf 5-10 [facility] Stool enteric pathogen panel by probe and target amplification methodOrdered By: Judson Hernandez on 08-14-2023 Gastrointestinal pathogens panel PACHECO+probe (Stl) [facility] Thin prep Papanicolaou smear with manual screeningOrdered By: Enrrique Eric on 08-14-2023 Thin prep Papanicolaou smear with manual screening 22 U/L 15-37 [facility] Comment on above: Moderate Hemolysis, Result may be falsely increased. Thin prep Papanicolaou smear with manual screening 6 5-15 [facility] Upper respiratory specimen i nfluenza A virus, influenza B virus, and severe acute respiratory syndromOrdered By: Enrrique Eric on 08-14-2023 Upper respiratory specimen influenza A virus, influenza B virus, and severe acute respiratory syndrom [facility] Urine blood detectionOrdered By: Enrrique Eric on 08-14-2023 RBC Ql (U) 25 /ul Negative [facility] RBC Ql (U) 0 SEEN /hpf 0-5 [facility] Urine clarityOrdered By: Yvon Eric on 08-14-2023 Clarity (U) Clear Clear [facility] Urine color determinationOrd ered By: Enrrique Eric on 08-14-2023 Color (U) Yellow Yellow [facility] Urine glucose detectionOrder ed By: Enrrique Eric on 08-14-2023 Glucose Ql (U) 100 mg/dl Normal [facility] Urine leukocyte esterase det ection by dipstickOrdered By: Enrrique Eric on 08-14-2023 Leukocyte esterase Test strip Ql (U) Negative Negative [facility] Urine pHOrdered By: Enrrique horan on 08-14-2023 pH (U) 6.0 [pH] 5.0 - 8.0 [facility] Urine sediment bacteria coun t by microscopy (number/high power field)Ordered By: Enrrique Eric on 08-14-2023 Bacteria LM.HPF (Urine sed) [#/Area] 0 /[HPF] None Seen [facility] Urine specific gravity measu rementOrdered By: Enrrique Eric on 08-14-2023 Specific gravity (U) [Rel density] 1.020 1.002-1.030 [facility] Urobilinogen Auto test strip Ql (U)Ordered By: Enrrique Eric on 08-14-2023 Urobilinogen Ql (U) Normal mg/dl Normal [facility] No Panel Informationon 08-09 Culture Urine >100,000 cfu/ml Multiple bacterial morphotypes present. Probable Contamination. Suggest recollection if clinically indicated. [facility] Work Phone: .Auto Diffon 08-04-2023 Basophil, Absolute 0.1 10 3/mcL Normal 0.0-0.2 [facility] ([place]) Comment on above: Performed By: #### C BC, GFR, A1C, ADIFF, CRP, TSH, CMP, ANEU, ESR #### [address] [address] Basophils/100 WBC (Bld) 0.7 % Normal 0.0-2.5 [facility] ([place]) Comment on above: Performed By: #### C BC, GFR, A1C, ADIFF, CRP, TSH, CMP, ANEU, ESR #### [address] [place], [place] [address] Eosinophil, Absolute 0.3 10 3/mcL Normal 0.0-0.4 [facility] ([place]) Comment on above: Performed By: #### C BC, GFR, A1C, ADIFF, CRP, TSH, CMP, ANEU, ESR #### [address] [place], [place] [address] Eosinophils/100 WBC (Bld) 4.2 % Normal 0.0-7.0 [facility] ([place]) Comment on above: Performed By: #### C BC, GFR, A1C, ADIFF, CRP, TSH, CMP, ANEU, ESR #### [address] [address] Lymphocyte, Absolute 2.2 10 3/mcL Normal 0.8-3.9 [facility] ([place]) Comment on above: Performed By: #### C BC, GFR, A1C, ADIFF, CRP, TSH, CMP, ANEU, ESR #### [address] [address] Lymphocytes/100 WBC (Bld) 28.9 % Normal 10.0-50.0 [facility] ([place]) Comment on above: Performed By: #### C BC, GFR, A1C, ADIFF, CRP, TSH, CMP, ANEU, ESR #### [address] [address] Monocyte, Absolute 0.4 10 3/mcL Normal 0.2-1.0 [facility] ([place]) Comment on above: Performed By: #### C BC, GFR, A1C, ADIFF, CRP, TSH, CMP, ANEU, ESR #### [address] [address] Monocytes/100 WBC (Bld) 5.1 % Normal 1.7-13.0 [facility] ([place]) Comment on above: Performed By: #### C BC, GFR, A1C, ADIFF, CRP, TSH, CMP, ANEU, ESR #### [address] [address] Neutrophils/100 WBC (Bld) 61.1 % Normal 37.0-80.0 [facility] ([place]) Comment on above: Performed By: #### C BC, GFR, A1C, ADIFF, CRP, TSH, CMP, ANEU, ESR #### [address] [address] .GFRon 08-04-2023 GFR 62 ml/min/1.73sqm Normal [facility] ([place]) Comment on above: Result Comment: GFR Population [...] ADIFF, CRP, TSH, CMP, ANEU, ESR #### [address] [address] GFR Non- 51 ml/min/1.73sqm Normal [facility] ([place]) Comment on above: Result Comment: GFR Population [...] ADIFF, CRP, TSH, CMP, ANEU, ESR #### [address] [address] .NEUABSon 08-04-2023 Neutrophil, Absolute 4.6 10 3/mcL Normal 2.9-6.2 [facility] ([place]) Comment on above: Performed By: #### C BC, GFR, A1C, ADIFF, CRP, TSH, CMP, ANEU, ESR #### [address] [address] A1Con 08-04-2023 HbA1c (Bld) [Mass fraction] 5.8 % Normal 4.3-6.4 [facility] ([place]) Comment on above: Performed By: #### C BC, GFR, A1C, ADIFF, CRP, TSH, CMP, ANEU, ESR #### [address] [address] CBCon 08-04-2023 Erythrocyte distribution width (RBC) [Ratio] 13.5 % Normal 11.5-14.5 [facility] ([place]) Comment on above: Performed By: #### C BC, GFR, A1C, ADIFF, CRP, TSH, CMP, ANEU, ESR #### [place] [address] Hematocrit (Bld) [Volume fraction] 36.2 % Low 37.0-47.0 [facility] ([place]) Comment on above: Performed By: #### C BC, GFR, A1C, ADIFF, CRP, TSH, CMP, ANEU, ESR #### [place] [address] Hgb 12.2 G/dL Normal 12.0-16.0 [facility] ([place]) Comment on above: Performed By: #### C BC, GFR, A1C, ADIFF, CRP, TSH, CMP, ANEU, ESR #### [address] [address] MCH (RBC) [Entitic mass] 29.3 pg Normal 27.0-31.2 [facility] ([place]) Comment on above: Performed By: #### C BC, GFR, A1C, ADIFF, CRP, TSH, CMP, ANEU, ESR #### [place] [address] MCHC 33.6 G/dL Normal 33.0-37.0 [facility] ([place]) Comment on above: Performed By: #### C BC, GFR, A1C, ADIFF, CRP, TSH, CMP, ANEU, ESR #### [place] [id number] MCV (RBC) [Entitic vol] 87.3 fL Normal 80.0-94.0 [facility] ([place]) Comment on above: Performed By: #### C BC, GFR, A1C, ADIFF, CRP, TSH, CMP, ANEU, ESR #### [address] [address] Platelet 303 10 3/mcL Normal 130-400 [facility] ([place]) Comment on above: Performed By: #### C BC, GFR, A1C, ADIFF, CRP, TSH, CMP, ANEU, ESR #### [address] [address] Platelet mean volume (Bld) [Entitic vol] 8.0 fL Normal 7.4-10.4 [facility] ([place]) Comment on above: Performed By: #### C BC, GFR, A1C, ADIFF, CRP, TSH, CMP, ANEU, ESR #### [address] [address] RBC 4.15 10 6/mcL Low 4.20-5.40 [facility] ([place]) Comment on above: Performed By: #### C BC, GFR, A1C, ADIFF, CRP, TSH, CMP, ANEU, ESR #### [address] [address] WBC 7.5 10 3/mcL Normal 4.6-10.8 [facility] ([place]) Comment on above: Performed By: #### C BC, GFR, A1C, ADIFF, CRP, TSH, CMP, ANEU, ESR #### [address] [address] CMPon 08-04-2023 Albumin Level 2.9 G/dL Low 3.4-4.8 [facility] ([place]) Comment on above: Performed By: #### C BC, GFR, A1C, ADIFF, CRP, TSH, CMP, ANEU, ESR #### [address] [address] Albumin/Globulin [Mass ratio] 0.7 {ratio} Low 1.1-2.5 [facility] ([place]) Comment on above: Performed By: #### C BC, GFR, A1C, ADIFF, CRP, TSH, CMP, ANEU, ESR #### [address] [address] ALP [Catalytic activity/Vol] 113 U/L Normal 40-135 [facility] ([place]) Comment on above: Performed By: #### C BC, GFR, A1C, ADIFF, CRP, TSH, CMP, ANEU, ESR #### [address] [address] ALT [Catalytic activity/Vol] 15 U/L Normal 14-59 [facility] ([place]) Comment on above: Performed By: #### C BC, GFR, A1C, ADIFF, CRP, TSH, CMP, ANEU, ESR #### [address] [address] AST [Catalytic activity/Vol] 16 U/L Normal 10-40 [facility] ([place]) Comment on above: Performed By: #### C BC, GFR, A1C, ADIFF, CRP, TSH, CMP, ANEU, ESR #### [address] [address] Bili Total 0.4 mg/dL Normal 0.2-1.0 [facility] ([place]) Comment on above: Result Comment: Use of this assay is not recommended for patients undergoing treatment with eltrombopag due to the potential for falsely elevated results. Performed By: #### C BC, GFR, A1C, ADIFF, CRP, TSH, CMP, ANEU, ESR #### [address] [address] BUN/Creatinine Ratio 12 ratio Normal 7-27 [facility] ([place]) Comment on above: Performed By: #### C BC, GFR, A1C, ADIFF, CRP, TSH, CMP, ANEU, ESR #### [address] [address] Calcium [Mass/Vol] 9.4 mg/dL Normal 8.4-10.2 [facility] ([place]) Comment on above: Performed By: #### C BC, GFR, A1C, ADIFF, CRP, TSH, CMP, ANEU, ESR #### [address] [address] Chloride [Moles/Vol] 107 mmol/L Normal 98-107 [facility] ([place]) Comment on above: Performed By: #### C BC, GFR, A1C, ADIFF, CRP, TSH, CMP, ANEU, ESR #### [address] [address] CO2 [Moles/Vol] 26 mmol/L Normal 23-31 [facility] ([place]) Comment on above: Performed By: #### C BC, GFR, A1C, ADIFF, CRP, TSH, CMP, ANEU, ESR #### [address] [address] Creatinine [Mass/Vol] 1.04 mg/dL High 0.55-1.02 [facility] ([place]) Comment on above: Performed By: #### C BC, GFR, A1C, ADIFF, CRP, TSH, CMP, ANEU, ESR #### [address] [address] Electrolyte Balance 13.0 mEq/L Normal 4.0-15.0 Pending [facility] to [facility] ([place]) Comment on above: Performed By: #### C BC, GFR, A1C, ADIFF, CRP, TSH, CMP, ANEU, ESR #### [address] [address] Globulin 4.3 G/dL Normal [facility] ([place]) Comment on above: Performed By: #### C BC, GFR, A1C, ADIFF, CRP, TSH, CMP, ANEU, ESR #### [address] [address] Glucose [Mass/Vol] 111 mg/dL High 83-110 [facility] ([place]) Comment on above: Performed By: #### C BC, GFR, A1C, ADIFF, CRP, TSH, CMP, ANEU, ESR #### [address] [address] Potassium [Moles/Vol] 3.6 mmol/L Normal 3.5-5.1 [facility] ([place]) Comment on above: Performed By: #### C BC, GFR, A1C, ADIFF, CRP, TSH, CMP, ANEU, ESR #### [address] [address] Sodium [Moles/Vol] 146 mmol/L High 136-145 [facility] ([place]) Comment on above: Performed By: #### C BC, GFR, A1C, ADIFF, CRP, TSH, CMP, ANEU, ESR #### [address] [address] Total Protein 7.2 G/dL Normal 6.4-8.2 [facility] ([place]) Comment on above: Performed By: #### C BC, GFR, A1C, ADIFF, CRP, TSH, CMP, ANEU, ESR #### [address] [address] Urea nitrogen [Mass/Vol] 13 mg/dL Normal 7-18 [facility] ([place]) Comment on above: Performed By: #### C BC, GFR, A1C, ADIFF, CRP, TSH, CMP, ANEU, ESR #### [address] [address] FT4on 08-04-2023 Free T4 [Mass/Vol] 1.12 ng/dL Normal 0.76-1.46 [facility] ([place]) Comment on above: Performed By: #### C BC, GFR, A1C, ADIFF, CRP, TSH, CMP, ANEU, ESR #### [address] [address] LIPIDon 08-04-2023 Cholesterol [Mass/Vol] 165 mg/dL Normal 0-200 [facility] ([place]) Comment on above: Result Comment: Chol esterol Reference Interval: Less than 200 Desirable 200-239 Borderline high risk 240 and above High risk Performed By: #### C BC, GFR, A1C, ADIFF, CRP, TSH, CMP, ANEU, ESR #### [address] [address] Cholesterol in HDL [Mass/Vol] 54 mg/dL Normal 40-60 [facility] ([place]) Comment on above: Performed By: #### C BC, GFR, A1C, ADIFF, CRP, TSH, CMP, ANEU, ESR #### [address] [place], [place] [address] Cholesterol in LDL [Mass/Vol] 94 mg/dL Normal 0-130 [facility] ([place]) Comment on above: Performed By: #### C BC, GFR, A1C, ADIFF, CRP, TSH, CMP, ANEU, ESR #### [address] [place], [place] [address] Triglyceride [Mass/Vol] 84 mg/dL Normal 0-150 [facility] ([place]) Comment on above: Result Comment: Trig lyceride Reference Interval: Less than 150 Normal 150-199 Borderline high risk 200-499 High risk 500 or higher Very high risk Performed By: #### C BC, GFR, A1C, ADIFF, CRP, TSH, CMP, ANEU, ESR #### [address] [place], [place] [address] TSHon 08-04-2023 TSH Qn 2.48 m[IU]/L Normal 0.36-3.74 [facility] ([place]) Comment on above: Performed By: #### C BC, GFR, A1C, ADIFF, CRP, TSH, CMP, ANEU, ESR #### [address] [address] Glucose Glucometer (BldC) [M ass/Vol]Ordered By: Senthil Ortiz on 06-10-2023 Glucose [Mass/Vol] 107 mg/dL 74-106 [facility] Comment on above: MANAGEMENT OF PATIEN T CARE PER NURSING PROTOCOL Absolute lymphocyte countOrd ered By: Senthil Ortiz on 06-08-2023 Lymphocytes Auto (Unsp spec) [#/Vol] 6.05 10*3/uL 0.83-4.51 [facility] Basophil percentageOrdered B y: Senthil Ortiz on 06-08-2023 Basophil percentage 103 mg/dL 74-106 [facility] Basophil percentage 139 mmol/L 136-145 [facility] Basophil percentage 3.5 mmol/L 3.5-5.1 [facility] Basophil percentage 109 mmol/L 98-107 [facility] Basophils (Bld) [#/Vol] 11.0 10*3/uL 4.4-11.0 [facility] Basophils (Bld) [#/Vol] 4.3 10*3/uL 2.0-7.7 [facility] Basophils/100 WBC (Bld) 0.3 % 0-1 [facility] Basophils/100 WBC (Bld) 39.0 % 47-70 [facility] Basophils/100 WBC (Bld) 1.0 % 0-5 [facility] Chloride [Moles/Vol] 109 mmol/L 98-107 [facility] Eosinophils/100 WBC (Bld) 1.0 % 0-5 [facility] Glucose [Mass/Vol] 103 mg/dL 74-106 [facility] Comment on above: Fasting Glucose resu lt from 100 to 125 mg/dL suggests IMPAIRED HOMEOSTASIS per A.D.A. criteria. Neutrophils (Bld) [#/Vol] 4.3 10*3/uL 2.0-7.7 [facility] Neutrophils/100 WBC (Bld) 39.0 % 47-70 [facility] Potassium [Moles/Vol] 3.5 mmol/L 3.5-5.1 [facility] Sodium [Moles/Vol] 139 mmol/L 136-145 [facility] WBC (Bld) [#/Vol] 11.0 10*3/uL 4.4-11.0 [facility] Blood erythrocytes count (nu mber/volume)Ordered By: Senthil Ortiz on 06-08-2023 RBC (Bld) [#/Vol] 4.40 10*6/uL 4.2-5.4 [facility] Blood hemoglobin measurement (mass/volume)Ordered By: Senthil Ortiz on 06-08-2023 Hemoglobin (Bld) [Mass/Vol] 13.4 g/dL 12.0-15.0 [facility] Blood lymphocytes/100 leukoc ytesOrdered By: Senthil Ortiz on 06-08-2023 Lymphocytes/100 WBC (Bld) 55.0 % 19-41 [facility] Blood monocytes/100 leukocyt esOrdered By: Senthil Ortiz on 06-08-2023 Monocytes/100 WBC (Bld) 4.5 % 0-10 [facility] Blood platelet mean volumeOr dered By: Senthil Ortiz on 06-08-2023 Platelet mean volume (Bld) [Entitic vol] 9.4 fL 6.2-12.0 [facility] Determination of erythrocyte mean corpuscular volume (MCV)Ordered By: Senthil Ortiz on 06-08-2023 MCV (RBC) [Entitic vol] 91.4 fL 81-99 [facility] Hematocrit Auto (Bld) [Volum e fraction]Ordered By: Senthil Ortiz on 06-08-2023 Hematocrit (Bld) [Volume fraction] 40.2 % 37-47 [facility] Laboratory - Chemistry and C hemistry - challengeOrdered By: Senthil Ortiz 06-08-2023 CO2 [Moles/Vol] 23.0 mmol/L 21.0-32.0 [facility] Urea nitrogen/Creatinine [Mass ratio] 19.3 mg/mg 10-20 [facility] Laboratory - Hematology and Cell countsOrdered By: Senthil Ortiz 06-08-2023 Erythrocyte distribution width (RBC) [Entitic vol] 45.3 fL 35.1-43.9 [facility] Erythrocyte distribution width (RBC) [Ratio] 13.5 % 11.6-14.6 [facility] Immature granulocytes/100 WBC (Bld) 0.200 % 0.0-0.9 [facility] Comment on above: IG% - Immature Granu locytes (promyelocytes, myelocytes and metamyelocytes) > 1% indicates that a LEFT SHIFT is Present. MCH (RBC) [Entitic mass] 30.5 pg 27.0-32.0 [facility] Nucleated RBC/100 WBC (Bld) [Ratio] 0 % 0-5 [facility] MCHC Auto (RBC) [Mass/Vol]Or dered By: Senthil Ortiz on 06-08-2023 MCHC (RBC) [Mass/Vol] 33.3 g/dL 32-36 [facility] No Panel InformationOrdered By: Senthil Ortiz on 06-08-2023 Estimated Creatinine Clearance Calc 31.13 ml/min [facility] Estimated GFR (MDRD) Amer 59 mL/min >60 [facility] Comment on above: GFR Calc Estimated GFR (MDRD) Non-Af Amer 49 mL/min >60 [facility] Comment on above: Non- GFR Calc 30.5 pg 27.0-32.0 [facility] 13.5 % 11.6-14.6 [facility] 45.3 fl 35.1-43.9 [facility] 0.200 % 0.0-0.9 [facility] 0 % 0-5 [facility] 49 mL/min >60 [facility] 59 mL/min >60 [facility] 31.13 ml/min [facility] 19.3 RATIO 10-20 [facility] 23.0 mmol/L 21.0-32.0 [facility] Platelets bldOrdered By: Senthil Ortiz on 06-08-2023 Platelets (Bld) [#/Vol] 374 10*3/uL 150-450 [facility] Serum or plasma calcium inga urement (mass/volume)Ordered By: Senthil Ortiz on 06-08-2023 Calcium [Mass/Vol] 9.5 mg/dL 8.5-10.1 [facility] Serum or plasma creatinine m easurement (mass/volume)Ordered By: Senthil Ortiz on 06-08-2023 Creatinine [Mass/Vol] 1.14 mg/dL 0.55-1.02 [facility] Comment on above: The validity of the calculated GFR & GFRAA in patients over 70 years has not been determined. Clinical correlation is essential. Serum or plasma urea nitroge n measurement (mass/volume)Ordered By: Senthil Ortiz on 06-08-2023 Urea nitrogen [Mass/Vol] 22 mg/dL 7-18 [facility] Thin prep Papanicolaou smear with manual screeningOrdered By: Senthil Ortiz on 06-08-2023 Thin prep Papanicolaou smear with manual screening 7 5-15 [facility] Bacteria identified Cx Nom ( U)Ordered By: Senthil Ortiz on 05-31-2023 Culture, urine Escherichia coli [facility] Culture, urine Vancomycin Resist. E . faecalis [facility] Culture, urine Aerococcus viridans. [facility] Basophil percentageOrdered B y: Senthil Ortiz on 05-31-2023 Basophil percentage 0 SEEN /hpf 0-5 [facility] Bilirubin Test strip Ql (U)O rdered By: Senthil Ortiz on 05-31-2023 Bilirubin Ql (U) Negative Negative [facility] COVID-19 virus antigen assay Ordered By: Senthil Ortiz on 05-31-2023 SARS-CoV-2 (COVID-19) Ag IA.rapid Ql (Resp) [facility] SARS-CoV-2 (COVID-19) Ag IA.rapid Ql (Resp) [facility] Culture, urineOrdered By: Darwin Ortiz on 05-31-2023 Bacteria identified Cx Nom (U) Escherichia coli [facility] Bacteria identified Cx Nom (U) Vancomycin Resist. E. faecalis [facility] Bacteria identified Cx Nom (U) Aerococcus viridans. [facility] Ketones Test strip Ql (U)Ord ered By: Senthil Ortiz on 05-31-2023 Ketones Ql (U) Negative Negative [facility] Mucus LM Ql (Urine sed)Order ed By: Senthil Ortiz on 05-31-2023 Mucus Ql (Urine sed) 0 SEEN /hpf [facility] Nitrite Test strip Ql (U)Ord ered By: Senthil Ortiz on 05-31-2023 Nitrite Ql (U) Negative Negative [facility] Protein Test strip Ql (U)Ord ered By: Senthil Ortiz on 05-31-2023 Protein Ql (U) Negative Negative [facility] Squamous epithelial cells de tection in urine sediment by light microscopyOrdered By: Senthil Ortiz on 05-31-2023 Epithelial cells.squamous LM Ql (Urine sed) 0 SEEN /hpf 5-10 [facility] Urine blood detectionOrdered By: Senthil Ortiz on 05-31-2023 RBC Ql (U) Negative Negative [facility] RBC Ql (U) 0 SEEN /hpf 0-5 [facility] Urine clarityOrdered By: Senthil Ortiz on 05-31-2023 Clarity (U) Clear Clear [facility] Urine color determinationOrd ered By: Senthil Ortiz on 05-31-2023 Color (U) Yellow Yellow [facility] Urine glucose detectionOrder ed By: Senthil Ortiz on 05-31-2023 Glucose Ql (U) Normal mg/dl Normal [facility] Urine leukocyte esterase det ection by dipstickOrdered By: Senthil Ortiz on 05-31-2023 Leukocyte esterase Test strip Ql (U) Negative Negative [facility] Urine pHOrdered By: Senthil Ortiz on 05-31-2023 pH (U) 6.0 [pH] 5.0 - 8.0 [facility] Urine sediment bacteria coun t by microscopy (number/high power field)Ordered By: Senthil Ortiz on 05-31-2023 Bacteria LM.HPF (Urine sed) [#/Area] 0 /[HPF] None Seen [facility] Urine specific gravity measu rementOrdered By: Senthil Ortiz on 05-31-2023 Specific gravity (U) [Rel density] 1.010 1.002-1.030 [facility] Urobilinogen Auto test strip Ql (U)Ordered By: Senthil Ortiz on 05-31-2023 Urobilinogen Ql (U) Normal mg/dl Normal [facility] Clostridium difficile detect ion by polymerase chain reactionOrdered By: Senthil Ortiz on 05-29-2023 C. difficile DNA PACHECO+probe Ql (Unsp spec) [facility] C. difficile DNA PACHECO+probe Ql (Unsp spec) [facility] Basophil percentageOrdered B y: Alee Yao on 05-17-2023 Basophil percentage 129 mg/dL 74-106 [facility] Basophil percentage 6.9 g/dL 6.4-8.2 [facility] Basophil percentage 0.70 mg/dL 0.20-1.00 [facility] Basophil percentage 143 mmol/L 136-145 [facility] Basophil percentage 3.2 mmol/L 3.5-5.1 [facility] Basophil percentage 110 mmol/L 98-107 [facility] Bilirubin [Mass/Vol] 0.70 mg/dL 0.20-1.00 [facility] Comment on above: For patients on eltr ombopag therapy, use of Dimension [employer] TBIL is not recommended. Chloride [Moles/Vol] 110 mmol/L 98-107 [facility] Glucose [Mass/Vol] 129 mg/dL 74-106 [facility] Comment on above: Fasting Glucose resu lt greater than or equal to 126 mg/dL suggests DIABETES MELLITUS per A.D.A. criteria. Potassium [Moles/Vol] 3.2 mmol/L 3.5-5.1 [facility] Protein [Mass/Vol] 6.9 g/dL 6.4-8.2 [facility] Sodium [Moles/Vol] 143 mmol/L 136-145 [facility] Glucose Glucometer (BldC) [M ass/Vol]Ordered By: Alee Yao on 05-17-2023 Glucose [Mass/Vol] 204 mg/dL 74-106 [facility] Comment on above: MANAGEMENT OF PATIEN T CARE PER NURSING PROTOCOL Laboratory - Chemistry and C hemistry - challengeOrdered By: Alee Yao on 05-17-2023 ALP [Catalytic activity/Vol] 154 U/L 45-117 [facility] ALT [Catalytic activity/Vol] 77 U/L [facility] CO2 [Moles/Vol] 26.0 mmol/L 21.0-32.0 [facility] Globulin (S) [Mass/Vol] 4.4 g/dL 2.2-4.2 [facility] Urea nitrogen/Creatinine [Mass ratio] 9.6 mg/mg 10- [facility] No Panel InformationOrdered By: Alee Yao on 05-17-2023 Estimated Creatinine Clearance Calc 30.86 ml/min [facility] Estimated GFR (MDRD) Amer 58 mL/min >60 [facility] Comment on above: GFR Calc Estimated GFR (MDRD) Non-Af Amer 48 mL/min >60 [facility] Comment on above: Non- GFR Calc 48 mL/min >60 [facility] 58 mL/min >60 [facility] 30.86 ml/min [facility] 9.6 RATIO 07-22 [facility] 4.4 g/dL 2.2-4.2 [facility] 154 U/L [facility] 77 U/L [facility] 26.0 mmol/L 21.0-32.0 [facility] Serum or plasma albumin inga urement (mass/volume)Ordered By: Alee Yao on 05-17-2023 Albumin [Mass/Vol] 2.5 g/dL 3.2-5.0 [facility] Serum or plasma albumin/glob ulin mass ratioOrdered By: Alee Yao on 05-17-2023 Albumin/Globulin [Mass ratio] 0.6 {ratio} 0.9-2.4 [facility] Serum or plasma calcium inga urement (mass/volume)Ordered By: Alee Yao on 05-17-2023 Calcium [Mass/Vol] 9.4 mg/dL 8.5-10.1 [facility] Serum or plasma creatinine m easurement (mass/volume)Ordered By: Alee Yao on 05-17-2023 Creatinine [Mass/Vol] 1.15 mg/dL 0.55-1.02 [facility] Comment on above: The validity of the calculated GFR & GFRAA in patients over 70 years has not been determined. Clinical correlation is essential. Serum or plasma urea nitroge n measurement (mass/volume)Ordered By: Alee Yao on 05-17-2023 Urea nitrogen [Mass/Vol] 11 mg/dL 7-18 [facility] Thin prep Papanicolaou smear with manual screeningOrdered By: Alee Yao on 05-17-2023 Thin prep Papanicolaou smear with manual screening 27 U/L [facility] Thin prep Papanicolaou smear with manual screening 7 - [facility] Absolute lymphocyte countOrd ered By: Alee Yao on 05-16-2023 Lymphocytes Auto (Unsp spec) [#/Vol] 2.07 10*3/uL 0.83-4.51 [facility] Basophil percentageOrdered B y: Alee Yao on 05-16-2023 Basophils (Bld) [#/Vol] 5.3 10*3/uL 4.4-11.0 [facility] Basophils (Bld) [#/Vol] 2.7 10*3/uL 2.0-7.7 [facility] Basophils/100 WBC (Bld) 0.9 % 0-1 [facility] Basophils/100 WBC (Bld) 51.4 % 47-70 [facility] Basophils/100 WBC (Bld) 2.6 % 0-5 [facility] Eosinophils/100 WBC (Bld) 2.6 % 0-5 [facility] Neutrophils (Bld) [#/Vol] 2.7 10*3/uL 2.0-7.7 [facility] Neutrophils/100 WBC (Bld) 51.4 % 47-70 [facility] WBC (Bld) [#/Vol] 5.3 10*3/uL 4.4-11.0 [facility] Blood erythrocytes count (nu mber/volume)Ordered By: Alee Yao on 05-16-2023 RBC (Bld) [#/Vol] 4.45 10*6/uL 4.2-5.4 [facility] Blood hemoglobin measurement (mass/volume)Ordered By: Alee Yao on 05-16-2023 Hemoglobin (Bld) [Mass/Vol] 13.2 g/dL 12.0-15.0 [facility] Blood lymphocytes/100 leukoc ytesOrdered By: Alee Yao on 05-16-2023 Lymphocytes/100 WBC (Bld) 39.1 % 19-41 [facility] Blood monocytes/100 leukocyt esOrdered By: Alee Yao on 05-16-2023 Monocytes/100 WBC (Bld) 5.8 % 0-10 [facility] Blood platelet mean volumeOr dered By: Alee Yao on 05-16-2023 Platelet mean volume (Bld) [Entitic vol] 10.7 fL 6.2-12.0 [facility] Determination of erythrocyte mean corpuscular volume (MCV)Ordered By: Alee Yao on 05-16-2023 MCV (RBC) [Entitic vol] 94.8 fL 81-99 [facility] Hematocrit Auto (Bld) [Volum e fraction]Ordered By: Alee Yao on 05-16-2023 Hematocrit (Bld) [Volume fraction] 42.2 % 37-47 [facility] Laboratory - Hematology and Cell countsOrdered By: Alee Yao on 05-16-2023 Erythrocyte distribution width (RBC) [Entitic vol] 43.3 fL 35.1-43.9 [facility] Erythrocyte distribution width (RBC) [Ratio] 12.3 % 11.6-14.6 [facility] Immature granulocytes/100 WBC (Bld) 0.200 % 0.0-0.9 [facility] Comment on above: IG% - Immature Granu locytes (promyelocytes, myelocytes and metamyelocytes) > 1% indicates that a LEFT SHIFT is Present. MCH (RBC) [Entitic mass] 29.7 pg 27.0-32.0 [facility] Nucleated RBC/100 WBC (Bld) [Ratio] 0 % 0-5 [facility] MCHC Auto (RBC) [Mass/Vol]Or dered By: Alee Yao on 05-16-2023 MCHC (RBC) [Mass/Vol] 31.3 g/dL 32-36 [facility] No Panel InformationOrdered By: Alee Yao on 05-16-2023 29.7 pg 27.0-32.0 [facility] 12.3 % 11.6-14.6 [facility] 43.3 fl 35.1-43.9 [facility] 0.200 % 0.0-0.9 [facility] 0 % 0-5 [facility] Platelets bldOrdered By: María Elena Yao on 05-16-2023 Platelets (Bld) [#/Vol] 227 10*3/uL 150-450 [facility] Basophil percentageOrdered B y: Alee Yao on 05-14-2023 Basophil percentage 3.0 mg/dL 2.5-4.9 [facility] Laboratory - Chemistry and C hemistry - challengeOrdered By: Alee Yao on 05-14-2023 Magnesium [Mass/Vol] 2.0 mg/dL 1.6-2.6 [facility] No Panel InformationOrdered By: Alee Yao on 05-14-2023 Methicillin-Resist S.aureus DNA PCR Negative Negative [facility] Negative Negative [facility] 2.0 mg/dL 1.6-2.6 [facility] Acetaminophen level (mass/vo lume)Ordered By: Alee Yao on 05-13-2023 Acetaminophen (Unsp spec) [Mass/Vol] < 2.0 ug/mL 10.0-30.0 [facility] Comment on above: Slight Icterus, Resu lt may be falsely decreased. Basophil percentageOrdered B y: Alee Yao on 05-13-2023 Basophil percentage 0.9 mmol/L 0.4-2.0 [facility] Lactate [Moles/Vol] 0.9 mmol/L 0.4-2.0 [facility] Basophil percentageOrdered B y: Octavia White on 05-13-2023 Ammonia (P) [Moles/Vol] 15.0 umol/L [facility] Basophil percentage 15.0 umol/L [facility] Laboratory - Chemistry and C hemistry - challengeOrdered By: Alee Yao on 05-13-2023 CK [Catalytic activity/Vol] 41 U/L 26-192 [facility] Laboratory - Drug toxicology Ordered By: Alee Yao on 05-13-2023 Amphetamines Ql (U) Negative <1000 ng/mL [facility] Benzodiazepines Ql (U) Positive < 200 ng/mL [facility] Cannabinoids Screen Ql (U) Negative < 50 ng/mL [facility] Cocaine Ql (U) Negative < 300 ng/mL [facility] Opiates Ql (U) Positive < 300 ng/mL [facility] Laboratory - Microbiology an d Antimicrobial susceptibilityOrdered By: Octavia Gruber on 05-13-2023 SARS-CoV-2 (COVID-19) RNA PACHECO+probe Ql (Unsp spec) [facility] No Panel InformationOrdered By: Alee Yao on 05-13-2023 MDMA (Ecstasy) Screen Positive < 500 ng/mL [facility] Urine Barbiturates Screen Negative < 200 ng/mL [facility] Urine Drug Screen Comment [facility] Comment on above: CONFIRMATORY TESTING FOR ALL [...] Urine Methadone Screen Negative < 300 ng/mL [facility] Negative < 50 ng/mL [facility] Positive < 300 ng/mL [facility] Ethyl Alcohol Level < 3.0 mg/dL [facility] Comment on above: The serum:whole bloo d ethanol ratio is approximately 1.14and varies slightly with hematocrit. Medical Alcohol reference interval and critical value innon-tolerant individuals; 50 - 100 Impairment 100 Intoxication 100 - 250 Severe Poisoning 250 - 400 Deep/possible fatal coma < 3.0 mg/dL [facility] 41 U/L 26-192 [facility] No Panel InformationOrdered By: Octavia Gruber on 05-13-2023 Hepatitis A IgM Antibody Negative Negative [facility] Hepatitis B Core IgM Antibody Negative Negative [facility] Hepatitis C Antibody (EIA) Non-Reactive Non Reactive [facility] Hepatitis C Antibody Comment Comment . [facility] Comment on above: Not infected with HC V unless early or acute infection issuspected (which may be delayed in an immunocompromisedindividual), or other evidence exists to indicate HCVinfection.Performed at: [facility] [id number] Director: Ruben Tan PhD, Phone: [phone] Negative Negative [facility] Non-Reactive Non Reactive [facility] Comment . [facility] Serum or plasma hepatitis B virus surface antigen detection by immunoassayOrdered By: Octavia Gruber on 05-13-2023 HBV surface Ag IA Ql Negative Negative [facility] Serum procalcitonin measurem entOrdered By: Octavia Gruber on 05-13-2023 Procalcitonin [Mass/Vol] 2.29 ng/mL 0.00-0.09 [facility] Comment on above: A procalcitonin (PCT ) [...] Phencyclidine Ql (U) Negative < 25 ng/mL [facility] Whole blood hemoglobin A1c/t otal hemoglobin ratio (mass fraction)Ordered By: Cirilo Galeas on 05-13-2023 HbA1c (Bld) [Mass fraction] 7.0 % 3.8-5.6 [facility] Comment on above: Normal < 5.7 % Predi abetic 5.7 - 6.4 % Diabetic >or= 6.5 % Please note range changes. Basophil percentageOrdered B y: Papo Morillo on 05-12-2023 Basophil percentage 0 SEEN /hpf 0-5 [facility] Bilirubin Test strip Ql (U)O rdered By: Papo Morillo on 05-12-2023 Bilirubin Ql (U) Negative Negative [facility] Culture, urineOrdered By: Javier Morillo on 05-12-2023 Bacteria identified Cx Nom (U) Culture exhibits no growth. [facility] Bacteria identified Cx Nom (U) Culture exhibits no growth. [facility] INR in Blood by Coagulation assayOrdered By: Papo Morillo on 05-12-2023 INR Coag (Bld) [Relative time] 1.1 {INR} [facility] Ketones Test strip Ql (U)Ord ered By: Papo Morillo on 05-12-2023 Ketones Ql (U) Negative Negative [facility] Laboratory - CoagulationOrde red By: Papo Morillo on 05-12-2023 aPTT Coag (Bld) [Time] 28.7 s 24.1-36.2 [facility] PT Coag (PPP) [Time] 14.5 s 11.7-14.9 [facility] Laboratory - Microbiology an d Antimicrobial susceptibilityOrdered By: Papo Morillo on 05-12-2023 Bacteria identified Cx Nom (Bld) No growth in 5 days. [facility] Mucus LM Ql (Urine sed)Order ed By: Papo Morillo on 05-12-2023 Mucus Ql (Urine sed) 0 SEEN /hpf [facility] Nitrite Test strip Ql (U)Ord ered By: Papo Morillo on 05-12-2023 Nitrite Ql (U) Negative Negative [facility] No Panel InformationOrdered By: Papo Morillo on 05-12-2023 No growth in 5 days. [facility] 14.5 SECONDS 11.7-14.9 [facility] 28.7 Seconds 24.1-36.2 [facility] Protein Test strip Ql (U)Ord ered By: Papo Morillo on 05-12-2023 Protein Ql (U) 15 mg/dl Negative [facility] Squamous epithelial cells de tection in urine sediment by light microscopyOrdered By: Papo Morillo on 05-12-2023 Epithelial cells.squamous LM Ql (Urine sed) 0 SEEN /hpf 5-10 [facility] Urine blood detectionOrdered By: Papo Morillo on 05-12-2023 RBC Ql (U) 10 /ul Negative [facility] RBC Ql (U) 0 SEEN /hpf 0-5 [facility] Urine clarityOrdered By: Papo Morillo on 05-12-2023 Clarity (U) Clear Clear [facility] Urine color determinationOrd ered By: Papo Morillo on 05-12-2023 Color (U) Yellow Yellow [facility] Urine glucose detectionOrder ed By: Papo Morillo on 05-12-2023 Glucose Ql (U) Normal mg/dl Normal [facility] Urine leukocyte esterase det ection by dipstickOrdered By: Papo Morillo on 05-12-2023 Leukocyte esterase Test strip Ql (U) Negative Negative [facility] Urine pHOrdered By: Papo ny on 05-12-2023 pH (U) 7.0 [pH] 5.0 - 8.0 [facility] Urine sediment bacteria coun t by microscopy (number/high power field)Ordered By: Papo Morillo on 05-12-2023 Bacteria LM.HPF (Urine sed) [#/Area] 0 /[HPF] None Seen [facility] Urine specific gravity measu rementOrdered By: Papo Morillo on 05-12-2023 Specific gravity (U) [Rel density] 1.010 1.002-1.030 [facility] Urobilinogen Auto test strip Ql (U)Ordered By: Papo Morillo on 05-12-2023 Urobilinogen Ql (U) 1 mg/dl Normal [facility] No Panel Informationon 03-04 Culture Urine >100,000 cfu/ml Multiple bacterial morphotypes present. Probable Contamination. Suggest recollection if clinically indicated. [facility] Work Phone: LABORATORYOrdered By: Vanessa Root on [...] CNOV Office Visit (UROLAE ) LUIZA GALO ([id number]) 1940 F [place] Date Time Provider Department 04/06/22 10:30 AM [...] Maggi Ellington RN Referring Provider: TEJAL RIVERA [[id number]] Allergies As of Date: 04/06/2022 Noted Allergy [...] (more content not included)... Normal [facility] UA DIP, URINE (POC)on 2021 BILIRUBIN UA (POCT) Negative Negative [facility] CLARITY UA (POCT) Clear [facility] COLOR UA (POCT) Yellow [facility] GLUCOSE UA (POCT) Negative Negative mg/dL [facility] HEMOGLOBIN/BLOOD UA (POCT) Negative Negative [facility] KETONE UA (POCT) Negative Negative mg/dL [facility] LEUKOCYTES UA (POCT) Trace Abnormal Negative [facility] NITRITE UA (POCT) Negative Negative [facility] PH UA (POCT) 5.0 4.5 - 8.0 [facility] Protein Ql (U) Negative Negative mg/dL [facility] SPECIFIC GRAVITY UA (POCT) 1.025 1.005 - 1.030 [facility] UROBILINOGEN UA (POCT) 0.2 E.U./dL Chelsea l E.U./dL [facility] CNPNon 03-23-2022 CNPN Telephone (UROLAG) LUIZA GALO ([id number]) 1940 [facility] Date Time Provider Department 03/23/22 TEJAL RIVERA UROLAG During your visit today, we recorded the [...] unspecified [N39.0] Order(s):URINE CULTURE [SQURCUL] Order #: [id number] FUTURE Prescriptions as of 03/23/2022 - ALPRAZolam [...] at bedtime. Meds Comments as of 10/06/2017: 10-06-17: Pt to mail list. CR Problem List As Of Date 03/23/2022 Noted Resolved Opioid dependence, continuous [F11.20] 07/24/2012 Benzodiazepine dependence, continuous [F13.20] 07/24/2012 Urge incontinence [N39.41] 05/23/2017 OAB (overactive bladder) [N32.81] 05/23/2017 Encounter Status:Closed by TEJAL RIVERA on 03/23/22 [facility] No Panel Informationon 02-19 Culture Urine 50,000 - 100,000 cfu /ml Multiple bacterial morphotypes present. Probable Contamination. Suggest recollection if clinically indicated. [facility] Work Phone: LABORATORYOrdered By: Mercedez Brewster on [...] 09-17 Culture Urine >100,000 cfu/ml Escherichia coli [facility] Work Phone: Escherichia coli Escherichia coli [facility] Work Phone: CNOVon 09-02-2021 CNOV Office Visit (UROLAE ) LUIZA GALO ([id number]) 1940 F [place] Date Time Provider Department 09/02/21 9:00 AM [...] Maggi Ellington RN Referring Provider: TEJAL RIVERA [[id number]] Allergies As of Date: 09/02/2021 Noted Allergy [...] injection (XYLOCAINE)Disp: Rfl: UA DIP, URINE (POC) [[id number]] Order #: [id number]. #:[id number] Prescriptions as of 09/02/2021 - ALPRAZolam (XANAX) 0.5 mg tablet Take 0.5 mg by mouth three times daily. - furosemide (LASIX) 20 mg tablet Take 20 mg by mouth once daily. - TRESIBA FLEXTOUCH U-200 200 unit/mL (3 mL) in (more content not included)... Normal [facility] UA DIP, URINE (POC)on 2020 BILIRUBIN UA (POCT) Negative Negative [facility] CLARITY UA (POCT) Clear [facility] COLOR UA (POCT) Yellow [facility] GLUCOSE UA (POCT) Negative Negative mg/dL [facility] HEMOGLOBIN/BLOOD UA (POCT) Trace-intact Abnormal Negative [facility] KETONE UA (POCT) Negative Negative mg/dL [facility] LEUKOCYTES UA (POCT) Trace Abnormal Negative [facility] NITRITE UA (POCT) Negative Negative [facility] PH UA (POCT) 5.5 4.5 - 8.0 [facility] Protein Ql (U) Negative Negative mg/dL [facility] SPECIFIC GRAVITY UA (POCT) 1.025 1.005 - 1.030 [facility] UROBILINOGEN UA (POCT) 0.2 E.U./dL [place] l E.U./dL [facility] Gerald 08-19-2021 BRYANNAN Telephone (UROLAE) LUIZA GALO ([id number]) 1940 F [facility] Date Time Provider Department 08/19/21 TEJAL [...] Reason for Visit: Appointment [[id number]] Patient Question [1636] Prescriptions as of 08/19/2021 - ALPRAZolam (XANAX) [...] Status:Closed by MAGGI VEGA RN on 08/19/21 [facility] CNOVon 06-17-2021 [facility] Office Visit (UROLAE ) RICKYLUIZA L ([id number]) 1940 [facility] Date Time Provider Department 06/17/21 1:45 PM [...] (more content not included)... Normal [facility] Cult Urineon 12-28-2017 Cult Urine Test performed at [facility] ORGANISM: Escherichia coli (ID: 1) >100,000 CFU/ml Normal [facility] Comment on above: Performed By: #### C _URI ####[place] [id number] Vital Signs Date Time Vital Sign Value Performing Clinician Facility 11-21-2023 00:16-0500 Body temperature 97.1 [degF] Dr. Rosalind Rubalcava Work Phone: [facility] 11-21-2023 00:16-0500 Diastolic blood pressure 75 mm[Hg] Dr. Rosalind Rubalcava Work Phone: [facility] 11-21-2023 00:16-0500 Heart rate 79 /min Dr. Rosalind Rubalcava Work Phone: [facility] 11-21-2023 00:16-0500 Respiratory rate 15 /min Dr. Rosalind Rubalcava Work Phone: [facility] 11-21-2023 00:16-0500 SaO2% (BldA) [Mass fraction] 95 % Dr. Rosalind Rubalcava Work Phone: [facility] 11-21-2023 00:16-0500 Systolic blood pressure 168 mm[Hg] Dr. Rosalind Rubalcava Work Phone: [facility] 11-20-2023 20:24-0500 Body mass index (BMI) [Ratio] 36.8 kg/m2 Dr. Rosalind Rubalcava Work Phone: [facility] 11-20-2023 20:24-0500 Body weight 85.[address] Rosalind Rubalcava Work Phone: [facility] 11-20-2023 20:14-0500 Body height 152.[address] Rosalind Rubalcava Work Phone: [facility] 10-24-2023 11:24-0500 Diastolic blood pressure 70 mm[Hg] Dr. Rosalind Rubalcava Work Phone: [facility] 10-24-2023 11:24-0500 Systolic blood pressure 150 mm[Hg] Dr. Rosalind Rubalcava Work Phone: [facility] 10-24-2023 11:00-0500 Body height 157.[address] Rosalind Rubalcava Work Phone: [facility] 10-24-2023 11:00-0500 Body mass index (BMI) [Ratio] 33.3 kg/m2 Dr. Rosalind Rubalcava Work Phone: [facility] 10-24-2023 11:00-0500 Body weight 82.[address] Rosalind Rubalcava Work Phone: [facility] 10-24-2023 11:00-0500 Heart rate 50 /min Dr. Rosalind Rubalcava Work Phone: [facility] 10-24-2023 11:00-0500 Respiratory rate 18 /min Dr. Rosalind Rubalcava Work Phone: [facility] 10-24-2023 11:00-0500 SaO2% (BldA) [Mass fraction] 93 % Dr. Rosalind Rubalcava Work Phone: [facility] 08-15-2023 11:27-0500 Heart rate 55 /min Dr. Rosalind Rubalcava Work Phone: [facility] 08-15-2023 08:09-0500 SaO2% (BldA) [Mass fraction] 96 % Dr. Rosalind Rubalcava Work Phone: [facility] 08-15-2023 07:44-0500 Body temperature 97.7 [degF] Dr. Rosalind Rubalcava Work Phone: [facility] 08-15-2023 07:44-0500 Diastolic blood pressure 48 mm[Hg] Dr. Rosalind Rubalcava Work Phone: [facility] 08-15-2023 07:44-0500 Respiratory rate 16 /min Dr. Rosalind Rubalcava Work Phone: [facility] 08-15-2023 07:44-0500 Systolic blood pressure 141 mm[Hg] Dr. Rosalind Rubalcava Work Phone: [facility] 08-15-2023 05:00-0500 Inhaled oxygen flow rate 2 L/min Dr. Rosalind Rubalcava Work Phone: [facility] 08-14-2023 16:11-0500 Body height 157.[address] Rosalind Rubalcava Work Phone: [facility] 08-14-2023 16:11-0500 Body mass index (BMI) [Ratio] 34.9 kg/m2 Dr. Rosalind Rubalcava Work Phone: [facility] 08-14-2023 16:11-0500 Body weight 86.[address] Rosalind Rubalcava Work Phone: [facility] 08-14-2023 15:20-0500 Diastolic blood pressure 54 mm[Hg] Dr. Rosalind Rubalcava Work Phone: [facility] 08-14-2023 15:20-0500 Heart rate 85 /min Dr. Rosalind Rubalcava Work Phone: [facility] 08-14-2023 15:20-0500 Respiratory rate 16 /min Dr. Rosalind Rubalcava Work Phone: [facility] 08-14-2023 15:20-0500 SaO2% (BldA) [Mass fraction] 97 % Dr. Rosalind Rubalcava Work Phone: [facility] 08-14-2023 15:20-0500 Systolic blood pressure 142 mm[Hg] Dr. Rosalind Rubalcava Work Phone: [facility] 08-14-2023 13:37-0500 Body temperature 100.2 [degF] Dr. Rosalind Rubalcava Work Phone: [facility] 08-14-2023 13:37-0500 Inhaled oxygen flow rate 2 L/min Dr. Rosalind Rubalcava Work Phone: [facility] 08-14-2023 11:52-0500 Body height 157.[address] Rosalind Rubalcava Work Phone: [facility] 06-10-2023 09:17-0400 Diastolic blood pressure 45 mm[Hg] Dr. Rosalind Rubalcava Work Phone: [facility] 06-10-2023 09:17-0400 Heart rate 56 /min Dr. Rosalind Rubalcava Work Phone: [facility] 06-10-2023 09:17-0400 Systolic blood pressure 123 mm[Hg] Dr. Rosalind Rubalcava Work Phone: [facility] 06-10-2023 05:45-0400 Respiratory rate 16 /min Dr. Rosalind Rubalcava Work Phone: [facility] 06-10-2023 05:45-0400 SaO2% (BldA) [Mass fraction] 97 % Dr. Rosalind Rubalcava Work Phone: [facility] 06-09-2023 12:20-0400 Body temperature 97.8 [degF] Dr. Rosalind Rubalcava Work Phone: [facility] 06-07-2023 10:36-0400 Body mass index (BMI) [Ratio] 33.7 kg/m2 Dr. Rosalind Rubalcava Work Phone: [facility] 06-07-2023 10:36-0400 Body weight 83.[address] Rosalind Rubalcava Work Phone: [facility] 06-01-2023 11:50-0400 Body height 157.[address] Rosalind Rubalcava Work Phone: [facility] 05-17-2023 16:05-0400 Body temperature 98.3 [degF] Dr. Rosalind Rubalcava Work Phone: [facility] 05-17-2023 16:05-0400 Diastolic blood pressure 53 mm[Hg] Dr. Rosalind Rubalcava Work Phone: [facility] 05-17-2023 16:05-0400 Heart rate 62 /min Dr. Rosalind Rubalcava Work Phone: [facility] 05-17-2023 16:05-0400 Respiratory rate 16 /min Dr. Rosalind Rubalcava Work Phone: [facility] 05-17-2023 16:05-0400 SaO2% (BldA) [Mass fraction] 96 % Dr. Rosalind Rubalcava Work Phone: [facility] 05-17-2023 16:05-0400 Systolic blood pressure 143 mm[Hg] Dr. Rosalind Rubalcava Work Phone: [facility] 05-17-2023 04:38-0400 Body mass index (BMI) [Ratio] 36.3 kg/m2 Dr. Rosalind Rubalcava Work Phone: [facility] 05-17-2023 04:38-0400 Body weight 89.[address] Rosalind Rubalcava Work Phone: [facility] 05-15-2023 09:05-0400 Inhaled oxygen flow rate 1.5 L/min Dr. Rosalind Rubalcava Work Phone: [facility] 05-13-2023 01:51-0400 Body height 157.[address] Rosalind Rubalcava Work Phone: [facility] 04-20-2023 14:23-0400 Body mass index (BMI) [Ratio] 36.2 kg/m2 Dr. Rosalind Rubalcava Work Phone: [facility] 04-20-2023 14:23-0400 Body weight 89.[address] Rosalind Rubalcava Work Phone: [facility] 04-20-2023 14:23-0400 Diastolic blood pressure 87 mm[Hg] Dr. Rosalind Rubalcava Work Phone: [facility] 04-20-2023 14:23-0400 Heart rate 63 /min Dr. Rosalind Rubalcava Work Phone: [facility] 04-20-2023 14:23-0400 Respiratory rate 18 /min Dr. Rosalind Rubalcava Work Phone: [facility] 04-20-2023 14:23-0400 SaO2% (BldA) [Mass fraction] 94 % Dr. Rosalind Rubalcava Work Phone: [facility] 04-20-2023 14:23-0400 Systolic blood pressure 176 mm[Hg] Dr. Rosalind Rubalcava Work Phone: [facility] 04-06-2022 10:39-0400 Body height 157.5 cm Tejal Rivera MD Work Phone: [facility] 04-06-2022 10:39-0400 Body weight 83.92 kg Tejal Rivera MD Work Phone: [facility] 04-06-2022 10:39-0400 Diastolic blood pressure 84 mm[Hg] Tejal Rivera MD Work Phone: [facility] 04-06-2022 10:39-0400 Systolic blood pressure 152 mm[Hg] Tejal Rivera MD Work Phone: [facility] 09-02-2021 09:09-0500 Body height 157.5 cm Tejal Rivera MD Work Phone: [facility] 09-02-2021 09:09-0500 Body weight 83.92 kg Tejal Rivera MD Work Phone: [facility] 09-02-2021 09:09-0500 Diastolic blood pressure 70 mm[Hg] Tejal Rivera MD Work Phone: [facility] 09-02-2021 09:09-0500 Systolic blood pressure 130 mm[Hg] Tejal Rivera MD Work Phone: [facility] 06-17-2021 13:39-0400 Body height 157.5 cm Tejal Rivera MD Work Phone: [facility] 06-17-2021 13:39-0400 Body weight 83.92 kg Tejal Rivera MD Work Phone: [facility] 06-17-2021 13:39-0400 Diastolic blood pressure 80 mm[Hg] Tejal Rivera MD Work Phone: [facility] 06-17-2021 13:39-0400 Systolic blood pressure 126 mm[Hg] Tejal Rivera MD Work Phone: [facility] Encounters Encounter Date Encounter Type Care Provider Facility Start: 03-18-2025 ambulatory Laverne badillo OLS Facility:[facility] Start: 03-18-2025 Laverne Guajardo L - [facility] Start: 03-11-2025 ambulatory Laverne badillo OLS Facility:[facility] Start: 03-11-2025 Laverne Guajardo [place] Start: 03-06-2025 ambulatory Laverne badillo OLS Facility:[facility] Start: 03-06-2025 Laverne Guajardo L - [facility] Start: 03-04-2025 ambulatory Rosalind Rubalcava Facility: [facility] Start: 03-04-2025 Jing mejia NP-[place] -[place] Start: 02-26-2025 End: 02-26-[address] Rosalind Rubalcava MD Work Phone: [facility] Work Phone: Start: 02-26-2025 End: 02-26-2025 Dr. Laverne Lea MD -[facility] Work Phone: Start: 02-11-2025 End: 02-11-[address] Rosalind Rubalcava MD Work Phone: [facility] Work Phone: Start: 02-11-2025 [facility] Start: 02-11-2025 End: 02-11-20[facility] Start: 02-11-2025 End: 02-11-2025 ambulatory Efewnagibe Kirtnetoe OLS Facility:[facility] Start: 02-04-2025 [facility] Start: 02-04-2025 End: 02-04-2025 [facility] Start: 02-04-2025 End: 02-04-2025 ambulatory Efewernesto Lea OLS Facility:[facility] Start: 01-28-2025 End: 01-28-[address] Rosalind Rubalcava MD Work Phone: [facility] Work Phone: Start: 01-28-2025 End: 01-28-2025 Patient encounter procedure Jing Jones NP-C -[facility] Work Phone: Start: 01-28-2025 End: 01-28-2025 Jing Jones NP-C -[facility] Work Phone: Start: 01-14-2025 End: 01-14-2025 [facility] Start: 01-14-2025 End: 01-14-2025 [facility] Start: 01-14-2025 End: 01-14-2025 ambulatory Efbeverly Lea OLS Facility:[facility] Start: 01-10-2025 End: 01-10-[address] Rosalind Rubalcava MD Work Phone: [facility] Work Phone: Start: 01-10-2025 End: 01-10-2025 Patient encounter procedure Jing Romeroreggie PAIRER ODDS-C -[facility] Work Phone: Start: 01-10-2025 End: 01-10-2025 Departed Referred Laverne [place] Start: 01-10-2025 End: 01-10-2025 Jing Robert PAIRER ODDS-C -[facility] Work Phone: Start: 01-09-2025 End: 01-10-[address] Rosalind Rubalcava MD Work Phone: [facility] Work Phone: Start: 01-09-2025 End: 01-09-2025 Patient encounter procedure Jing Romeroreggie PAIRER ODDS-C -[facility] Work Phone: Start: 01-09-2025 End: 01-09-2025 Jing Romeroreggie PAIRER ODDS-C -[facility] Work Phone: Start: 01-08-2025 End: 01-08-[address] Rosalind Rubalcava MD Work Phone: [facility] Work Phone: Start: 01-08-2025 End: 01-08-2025 Patient encounter procedure Jing Jones PAIRER ODDS-C -[facility] Work Phone: Start: 01-08-2025 End: 01-08-2025 Jing Robert PAIRER ODDS-C -[facility] Work Phone: Start: 12-24-2024 End: 12-24-[address] Rosalind Rubalcava MD Work Phone: [facility] Work Phone: Start: 12-24-2024 End: 12-24-2024 Departed Referred Laverne [place] Start: 12-24-2024 Registered Referred Laverne GuajardoCorrine [facility] [place] Start: 12-24-2024 End: 12-24-2024 Laverne [place] Start: 12-24-2024 End: 12-24-2024 ambulatory Efbeverly VICTORIA Facility:[facility] Start: 12-10-2024 End: 12-10-[address] Rosalind Rubalcava MD Work Phone: [facility] Work Phone: Start: 12-10-2024 End: 12-10-2024 [facility] Start: 12-10-2024 End: 12-10-2024 [facility] Start: 12-10-2024 End: 12-10-2024 ambulatory Laverne VICTORIA Facility:[facility] Start: 11-12-2024 ambulatory Efbeverly VICTORIA Facility:[facility] Start: 11-12-2024 Registered Referred Laverne [facility] Start: 10-15-2024 End: 10-15-2024 Departed Referred Laverne GuajardoCorrine [place] Start: 10-15-2024 End: 10-15-2024 ambulatory Efbeverly VICTORIA Facility:[facility] Start: 10-01-2024 ambulatory Efbeverly VICTORIA Facility:[facility] Start: 10-01-2024 Registered Referred Laverne [place] Start: 09-21-2024 End: 09-21-2024 ambulatory Jing Jones NP Facility:[facility] Start: 09-21-2024 End: 09-21-2024 Patient encounter procedure Jing Jones PAIRER ODDS-C -[facility] Work Phone: Start: 09-13-2024 ambulatory Efbeverly badillo OLS Facility:[facility] Start: 09-13-2024 Registered Referred Laverne [place] Start: 09-10-2024 ambulatory Efewongnate badillo OLS Facility:[facility] Start: 09-10-2024 Registered Referred Laverne Lea MD [facility] Start: 09-03-2024 End: 09-03-2024 ambulatory Jing Jones PAIRER ODDS Facility:[facility] Start: 08-20-2024 End: 08-20-2024 ambulatory Leonorafatouernesto Lea OLS Facility:[facility] Start: 08-13-2024 ambulatory Efbeverly Uzair aby OLS Facility:[facility] Start: 07-30-2024 End: 07-30-2024 ambulatory Jing Jones PAIRER ODDS Facility:[facility] Start: 07-19-2024 End: 07-19-2024 ambulatory Rosalind Rubalcava Facility:[facility] Start: 07-16-2024 ambulatory Efbeverly Uzair badillo OLS Facility:[facility] Start: 07-09-2024 ambulatory Laverne Uzair aby OLS Facility:[facility] Start: 06-25-2024 ambulatory Efbeverly Uzair aby OLS Facility:[facility] Start: 06-14-2024 ambulatory Rosalind Rubalcava Facility: [facility] Start: 06-11-2024 ambulatory Efbeverly Uzair badillo OLS Facility:[facility] Start: 06-01-2024 ambulatory Efbeverly Moralezg aby OLS Facility:[facility] Start: 05-31-2024 ambulatory Efbeverly Moralezg aby OLS Facility:[facility] Start: 05-29-2024 End: 05-29-2024 ambulatory Leonorabeverly Kirtesvin Facility:[facility] Start: 05-28-2024 End: 05-28-2024 ambulatory Jing Jones PAIRER ODDS Facility:[facility] Start: 05-23-2024 End: 05-27-2024 ambulatory ROSALIND RUBALCAVA MD Facility:[facility] Start: 05-23-2024 End: 05-27-2024 Outreach Lab ROSALIND RUBALCAVA MD [facility] Start: 05-10-2024 ambulatory Rosalind Rubalcava Facility: [facility] Start: 04-25-2024 End: 04-25-2024 ambulatory Doe Orr Facility:[facility] Start: 04-19-2024 End: 04-19-2024 Emergency department patient visit Rosalind Rubalcava Facility:[facility] Start: 04-07-2024 End: 04-08-2024 Emergency department patient visit Rosalind Rubalcava Facility:[facility] Start: 04-01-2024 End: 04-02-2024 ambulatory Fausto Wright Facility:[facility] Start: 03-06-2024 End: 03-06-2024 ambulatory ROSALIND RUBALCAVA MD Facility:[facility] Start: 03-03-2024 End: 05-21-2024 ambulatory ROSALIND RUBALCAVA MD Facility:[facility] Start: 01-15-2024 Non-patient / Non-visit Dr. Rosalind Rubalcava Work Phone: [facility] Work Phone: Start: 01-13-2024 Non-patient / Non-visit Dr. Rosalind Rubalcava Work Phone: [facility] Start: 01-13-2024 End: 01-13-[address] Rosalind Rubalcava Work Phone: [facility] Work Phone: Start: 01-13-2024 End: 01-13-[address] Rosalind Rubalcava Work Phone: [facility] Work Phone: Start: 12-28-2023 End: 12-28-[address] Rosalind Rubalcava Work Phone: [facility] Work Phone: Start: 12-28-2023 End: 12-28-[address] Rosalind Rubalcava Work Phone: [facility] Work Phone: Start: 12-15-2023 End: 12-15-[address] Rosalind Rubalcava Work Phone: [facility] Work Phone: Start: 12-15-2023 End: 12-15-[address] Rosalind Rubalcava Work Phone: [facility] Work Phone: Start: 11-20-2023 End: 11-21-2023 Emergency department patient visit Dr. Rosalind Rubalcava Work Phone: [facility]Emergency Department Work Phone: Start: 11-10-2023 End: 11-10-[address] Rosalind Rubalcava Work Phone: [facility] Work Phone: Start: 11-04-2023 End: 11-04-[address] Rosalind Rubalcava Work Phone: [facility] Work Phone: Start: 11-01-2023 End: 11-01-2023 ambulatory ROSALIND RUBALCAVA MD Facility:[facility] Start: 10-24-2023 End: 10-24-[address] Rosalind Rubalcava Work Phone: [facility] Work Phone: Start: 10-24-2023 End: 10-24-[address] Rosalind Rubalcava Work Phone: [facility] Work Phone: Start: 09-22-2023 End: 09-22-2023 ambulatory [facility] Facility:[facility] Start: 09-22-2023 End: 09-22-2023 Patient encounter procedure ROSALIND RUBALCAVA MD [facility] Start: 08-15-2023 Non-patient / Non-visit Dr. Rosalind Rubalcava Work Phone: [facility] Work Phone: Start: 08-15-2023 Dr. Rosalind willis Work Phone: [facility] Work Phone: Start: 08-14-2023 End: 08-15-2023 Evaluation and management of inpatient Dr. Rosalind Rubalcava Work Phone: [facility] Work Phone: Start: 08-14-2023 End: 08-15-[address] Rosalind Rubalcava Work Phone: [facility] Work Phone: Start: 08-14-2023 End: 08-15-2023 Dr. Rosalind Rubalcava Work Phone: [facility] Work Phone: Start: 2023 End: 08-13-2023 ambulatory ROSALIND RUBALCAVA MD Facility:[facility] Start: 2023 End: 08-13-2023 Outreach Lab ROSALIND RUBALCAVA MD [facility] Start: 08-04-2023 End: 08-04-2023 ambulatory ROSALIND RUBALCAVA MD Facility:[facility] Start: 05-17-2023 End: 06-10-2023 Evaluation and management of inpatient Dr. Rosalind Rubalcava Work Phone: [facility]Trans[facility] Start: 05-17-2023 End: 06-10-2023 Dr. Rosalind Rubalcava Work Phone: [facility] Start: 05-17-2023 Non-patient / Non-visit Dr. Rosalind Rubalcava Work Phone: [facility] Work Phone: Start: 05-17-2023 Dr. Rosalind willis Work Phone: [facility] Work Phone: Start: 05-16-2023 Non-patient / Non-visit Dr. Rosalind Rubalcava Work Phone: [facility] Work Phone: Start: 05-16-2023 Dr. Rosalind willis Work Phone: [facility] Work Phone: Start: 05-15-2023 Non-patient / Non-visit Dr. Rosalind Rubalcava Work Phone: [facility] Work Phone: Start: 05-15-2023 Dr. Rosalind willis Work Phone: [facility] Work Phone: Start: 05-14-2023 Non-patient / Non-visit Dr. Rosalind Rubalcava Work Phone: [facility] Work Phone: Start: 05-14-2023 Dr. Rosalind willis Work Phone: [facility] Work Phone: Start: 05-14-2023 Non-patient / Non-visit Dr. Rosalind Rubalcava Work Phone: [facility] Start: 05-14-2023 Dr. Rosalind willis Work Phone: [facility] Start: 05-13-2023 Non-patient / Non-visit Dr. Rosalind Rubalcava Work Phone: [facility] Start: 05-13-2023 Dr. Rosalind willis Work Phone: [facility] Start: 05-13-2023 End: 05-17-2023 Evaluation and management of inpatient Dr. Rosalind Rubalcava [facility] Work Phone: Start: 05-13-2023 Non-patient / Non-visit Dr. Rosalind Rubalcava Work Phone: [facility] Work Phone: Start: 05-13-2023 End: 05-17-2023 Dr. Rosalind Rubalcava [facility] Work Phone: Start: 04-20-2023 End: 04-20-[address] Rosalind Rubalcava Work Phone: [facility] Work Phone: Start: 04-20-2023 End: 04-20-2023 Dr. 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 Start: 12-17-2022 End: 12-17-2022 Patient encounter procedure ROSALIND RUBALCAVA MD [facility] Start: 05-11-2022 End: 05-11-2022 Patient encounter procedure ROSALIND RUBALCAVA MD [facility] Start: 04-06-2022 End: 04-06-2022 Patient encounter procedure Tejal Rivera MD Work Phone: Urology Comment on above: Urge incontinence (P rimary Dx) Start: 03-24-2022 End: 03-24-2022 Patient encounter procedure TEJAL RIVERA MD [facility] Start: 03-23-2022 Telephone encounter Tejal Rivera MD Work Phone: Urology Comment on above: Orders Start: 02-19-2022 End: 02-23-2022 Outreach Lab [facility] 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 [facility] Start: 11-10-2021 End: 11-10-2021 Patient encounter procedure ROSALIND RUBALCAVA MD [facility] Start: 09-17-2021 End: 09-21-2021 Outreach Lab BASILIA Ball SHMUEL [facility] Start: 09-02-2021 End: 09-02-2021 Patient encounter procedure [...] 08-16-2018 Patient encounter SAMIR Owen acility:[facility] Start: 07-19-2018 Patient encounter TEJAL RIVERA Facility:[facility] Start: 07-13-2018 End: 07-13-2018 Patient encounter SAMIR ARYA Facility:[facility] Start: 07-03-2018 Patient encounter JONA WILKINSFREDERICK Lexie acility:[facility] Start: 06-15-2018 End: 06-15-2018 Patient encounter SAMIR ARYA Facility:[facility] Start: 05-15-2018 Patient encounter SAMIR Owen acility:[facility] Start: 04-13-2018 End: 04-13-2018 Patient encounter SAMIR ARYA Facility:[facility] Start: 03-22-2018 End: 03-22-2018 Patient encounter SAMIR BEJARANO Facility:[facility] Start: 03-15-2018 Patient encounter SAMIR Owen acility:[facility] Start: 02-22-2018 End: 02-22-2018 Patient encounter SAMIR ARYA Facility:[facility] Start: 01-26-2018 End: 01-26-2018 Patient encounter JONA VELAZCO Facility:[facility] Start: 01-16-2018 Patient encounter ROSALIND calderaty:[facility] Start: 01-11-2018 End: 01-11-2018 Patient encounter TEJAL RIVERA Facility:[facility] Start: 12-28-2017 End: 12-29-2017 Patient encounter JONA VELAZCO Facility:[facility] Start: 12-28-2017 End: 12-28-2017 Patient encounter JONA VELAZCO Facility:[facility] Start: 10-06-2017 End: 10-06-2017 Patient encounter JONA VELAZCO Facility:[facility] Start: 09-20-2017 Patient encounter TEJAL RIVERA Facility:[facility] Start: 08-19-2017 End: 08-19-2017 Patient [facility] Procedures Date Procedure Procedure Detail [...] Coronary artery bypass grafts x 4 JING MI DO Comment on above: CABG x 4 [...] Date Care Activity Detail Author Start: 11-20-2023 [facility] Start: 08-15-2023 Patient discharge [facility] Start: 08-15-2023 Oxygen therapy [facility] Start: 08-14-2023 Ambulation without limitation [facility] Start: 08-14-2023 Assessment of risk o f venous thromboembolism [facility] Start: 08-14-2023 Care regimes management [facility] Start: 08-14-2023 Insertion of cathete r into peripheral vein [facility] Start: 08-14-2023 Notification of physician [facility] Start: 08-14-2023 Providing care accor ding to standard [facility] Start: 08-14-2023 Referral to occupati onal therapist [facility] Start: 08-14-2023 Referral to service [facility] Start: 08-14-2023 Verification routine [facility] Start: 08-14-2023 Admission procedure [facility] Start: 08-14-2023 Hospital admission, emergency, from emergency room, medical nature [facility] Start: 08-14-2023 End: 08-14-2023 [facility] Start: 08-14-2023 End: 08-14-2023 Blood culture [facility] Start: 06-10-2023 Development of care plan [facility] Start: 06-10-2023 Patient discharge [facility] Start: 06-09-2023 [facility] Start: 06-07-2023 Referral to service [facility] Start: 06-06-2023 [facility] Start: 06-02-2023 [facility] Start: 05-31-2023 End: 06-01-2023 [facility] Start: 05-31-2023 [facility] Start: 05-19-2023 Speech therapy management [facility] Start: 05-18-2023 Speech therapy assessment [facility] Start: 05-18-2023 Development of care plan [facility] Start: 05-18-2023 Developing a treatme nt plan [facility] Start: 05-17-2023 Admission procedure [facility] Start: 05-17-2023 Measuring intake and output [facility] Start: 05-17-2023 Patient referral to dietitian [facility] Start: 05-17-2023 Referral to occupati onal therapist [facility] Start: 05-17-2023 Referral to service [facility] Start: 05-17-2023 Vital signs measurements [facility] Start: 05-17-2023 [facility] Start: 05-17-2023 Following clinical p athway protocol [facility] Start: 05-17-2023 Patient discharge [facility] Start: 05-17-2023 Patient referral to dietitian [facility] Start: 05-16-2023 [facility] Start: 05-13-2023 [facility] Start: 05-13-2023 Catheterization of vein [facility] Start: 05-13-2023 Cardiac monitoring [facility] Start: 05-13-2023 Catheterization of vein [facility] Start: 05-13-2023 Continuous pulse oximetry [facility] Start: 05-13-2023 Notification of physician [facility] Start: 05-13-2023 Application of intermittent pneumatic compression device [facility] Start: 05-13-2023 Aspiration precautions [facility] Start: 05-13-2023 Assessment of risk o f venous thromboembolism [facility] Start: 05-13-2023 Care regimes management [facility] Start: 05-13-2023 Fall prevention [facility] Start: 05-13-2023 Insertion of cathete r into peripheral vein [facility] Start: 05-13-2023 Introduction of urin sumeet catheter [facility] Start: 05-13-2023 Measuring intake and output [facility] Start: 05-13-2023 Notification of physician [facility] Start: 05-13-2023 Oxygen therapy [facility] Start: 05-13-2023 Providing care accor ding to standard [facility] Start: 05-13-2023 Provision of activit y privileges [facility] Start: 05-13-2023 Referral to gastroenterology service [facility] Start: 05-13-2023 Referral to occupati onal therapist [facility] Start: 05-13-2023 Referral to service [facility] Start: 05-13-2023 Following clinical p athway protocol [facility] Start: 05-13-2023 Admission procedure [facility] Start: 05-13-2023 Inhalation therapy procedure [facility] Start: 05-13-2023 End: 05-13-2023 [facility] Start: 05-12-2023 End: 05-12-2023 Blood culture [facility] Start: 05-12-2023 Bacteria identified in Blood by Culture Blood Culture [facility] Start: 09-29-2022 End: 11-29-2022 Bacteria identified in Urine by Culture URINE CULTURE Microbiology Routine Urge incontinence Expected: 09/29/2022 (Approximate), Expires: 11/29/2022 [facility] Work Phone: Comment on above: Expected: 09/29/2022 (Approximate), Expires: 11/29/2022 Start: 06-03-2022 Influenza vaccination INFLUENZA (#1) [facility] Start: 03-23-2022 End: 03-23-2023 Bacteria identified in Urine by Culture URINE CULTURE Microbiology Routine Urinary tract infection without hematuria, site unspecified Expected: 03/23/2022, Expires: 03/23/2023 [facility] Work Phone: Comment on above: Expected: 03/23/2022 , Expires: 03/23/2023 Start: 12-06-2021 COVID-19 VACCINE (4 - Booster for Moderna series) COVID-19 VACCINE (4 - Booster for Moderna series) [facility] Start: 10-03-2021 ADVANCE DIRECTIVE DISCUSSION ADVANCE DIRECTIVE DISCUSSION [facility] Start: 06-19-2021 COVID-19 VACCINE (3 - Booster for Moderna series) COVID-19 VACCINE (3 - Booster for Moderna series) [facility] Start: 06-03-2021 Influenza vaccination INFLUENZA (#1) [facility] Start: 2007 ADVANCE DIRECTIVE DISCUSSION ADVANCE DIRECTIVE DISCUSSION [facility] Start: 2007 BONE DENSITY BONE DENSITY [facility] Start: 2007 PNEUMOCOCCAL: 65+ (1 - PCV) PNEUMOCOCCAL: 65+ (1 - PCV) [facility] Start: 2007 PNEUMOVAX AGE 65 AND OVER WITH 5YR LOOKBACK (#1) PNEUMOVAX AGE 65 AND OVER WITH 5YR LOOKBACK (#1) [facility] Start: 1992 SHINGRIX VACCINE (1 of 2) SAM GRIX VACCINE (1 of 2) [facility] Start: 1987 DIABETES SCREEN DIABETES SCREEN [facility] Start: 1961 Urine microalbumin profile DTA P,TDAP,TD (1 - Tdap) [facility] Start: 1960 HEPATITIS C SCREENING HEPATITIS C SC GHAZAL [facility] Start: 1954 [facility] DEPRESSION SCREENING [facility] Patient Education ED Fracture, V ertebral Compression ED Hematoma [facility] Work Phone: Patient referral [facility] Work Phone: [facility] Immunizations Immunization Date Immunization Notes Care Provider Fa ariel 05-26-2023 Covid Moderna Bivale nt Booster Dr. Rosalind Rubalcava Work Phone: [facility] 05-26-2023 SARS-CoV-2 (CV19)mRNA-1273 bivalent vac 1 ROSALIND RUBALCAVA MD [facility] Comment on above: Result Comment: 2022: [id number] 07-01-2022 influenza virus vacc ine, unspecified formulation ROSALIND RUBALCAVA MD [facility] 08-08-2021 SARS-CoV-2 (COVID-19 ) mRNA-1273 vaccine BASILIA MI DO [facility] Comment on above: Result Comment: 2020: [id number] 06-25-2021 influenza virus vacc ine, unspecified formulation BASILIA MI DO [facility] 06-25-2021 Influenza, high dose seasonal Dr. Rosalind Rubalcava MD Work Phone: [facility] 06-25-2021 influenza, high dose seasonal, preservative-free Dr. Rosalind Rubalcava Work Phone: [facility] 12-22-2020 Covid (Moderna) Dr. Rosalind evans Work Phone: [facility] 12-17-2020 SARS-CoV-2 (COVID-19 ) mRNA-1273 vaccine BASILIA MI DO [facility] Comment on above: Result Comment: 2020: [id number] 11-20-2020 SARS-CoV-2 (COVID-19 ) [id number] vaccine BASILIA MI DO [facility] 09-16-2020 zoster vaccine recombinant BASILIA MI DO [facility] 07-25-[address] Rosalind Rubalcava Work Phone: [facility] 07-16-2020 zoster vaccine recombinant BASILIA MI DO [facility] 06-25-2020 influenza virus vacc ine, unspecified formulation BASILIA MI DO [facility] 06-25-2020 influenza, injectabl e, quadrivalent, preservative free Dr. Rosalind Rubalcava Work Phone: [facility] 06-10-2020 influenza virus vacc ine, unspecified formulation BASILIA MI DO [facility] 06-10-2020 Influenza, high dose seasonal Dr. Rosalind Rubalcava MD Work Phone: [facility] 06-10-2020 influenza, high dose seasonal, preservative-free Dr. Rosalind Rubalcava Work Phone: [facility] 07-11-2019 influenza, injectabl e, quadrivalent, preservative free; Translations: [Fluarix PF Quadrivalent ] BASILIA MI DO [facility] 06-03-2018 influenza virus vacc ine, unspecified formulation BASILIA MI DO [facility] 06-03-2018 influenza, injectabl e, quadrivalent, preservative free Dr. Rosalind Rubalcava Work Phone: [facility] 08-16-2017 tetanus toxoid, redu chiqui diphtheria toxoid, and acellular pertussis vaccine, adsorbed BASILIA MI DO [facility] 07-13-[address] Rosalind Rubalcava Work Phone: [facility] 07-13-2017 influenza, injectabl e, quadrivalent, preservative free BASILIA MI DO [facility] 10-27-2016 pneumococcal conjuga te vaccine, 13 valent BASILIA MI DO [facility] 06-11-2016 influenza virus vacc ine, unspecified formulation BASILIA MI DO [facility] 06-11-2016 influenza, injectabl e, quadrivalent, preservative free Dr. Rosalind Rubalcava Work Phone: [facility] 08-26-2015 influenza virus vacc ine, unspecified formulation BASILIA MI DO [facility] 08-26-2015 influenza, injectabl e, quadrivalent, preservative free Dr. Rosalind Rubalcava Work Phone: [facility] 08-23-2014 influenza virus vacc ine, unspecified formulation BASILIA MI DO [facility] 08-23-2014 influenza, injectabl e, quadrivalent, preservative free Dr. Rosalind Rubalcava Work Phone: [facility] 02-06-2013 pneumococcal polysaccharide vaccine, 23 valent BASILIA MI DO [facility] 04-08-2011 zoster vaccine, live BASILIA MI DO [facility] 07-04-2009 influenza, injectabl e, quadrivalent, preservative free Dr. Rosalind Rubalcava Work Phone: [facility] 08-16-2002 pneumococcal polysaccharide vaccine, [address] Rosalind Rubalcava Work Phone: [facility] Payers Date Payer Category Payer Self-pay [id number] 2016 Unknown [id number] 2014 Unknown [id number] 1942 Unknown [id number] 2.16.8 40.1.881336.3.579.2.278 1942 Unknown [id number] 2.16.8 40.1.787643.3.579.2.278 1942 Unknown [id number] 2.16.8 40.1.388852.3.579.2.278 1942 Unknown [id number] 2.16.8 40.1.356551.3.579.2.278 1942 Unknown [id number] 2.16.8 40.1.879443.3.579.2.278 1942 Unknown [id number] 2.16.8 40.1.881885.3.579.2.278 1942 Unknown [id number] 2.16.8 40.1.856183.3.579.2.278 1942 Unknown [id number] 2.16.8 40.1.232576.3.579.2.278 1942 Unknown [id number] 2.16.8 40.1.097440.3.579.2.278 1942 Unknown [id number] 2.16.8 40.1.496316.3.579.2.278 1942 Unknown [id number] 2.16.8 40.1.632383.3.579.2.278 1942 Unknown [id number] 2.16.8 40.1.313053.3.579.2.278 1942 Unknown [id number] 2.16.8 40.1.875024.3.579.2.278 1942 Unknown [id number] 2.16.8 40.1.332592.3.579.2.278 1942 Unknown [id number] 2.16.8 40.1.742372.3.579.2.278 1942 Unknown [id number] 2.16.8 40.1.355048.3.579.2.278 1942 Unknown [id number] 2.16.8 40.1.815612.3.579.2.278 1942 Unknown [id number] 2.16.8 40.1.103339.3.579.2.278 1942 Unknown [id number] 2.16.8 40.1.639901.3.579.2.627 1942 Unknown [id number] 2.16.8 40.1.067830.3.579.2.627 1942 Unknown [id number] 2.16.8 40.1.244740.3.579.2.627 1942 Unknown [id number] 2.16.8 40.1.936205.3.579.2.627 1942 Unknown [id number] 2.16.8 40.1.075087.3.579.2.627 1942 Unknown [id number] 2.16.8 40.1.071476.3.579.2.627 1942 Unknown [id number] 2.16.8 40.1.239890.3.579.2.627 Unknown [id number] 2.16.8 40.1.816450.3.579.2.462 Unknown [id number] 2.16.8 40.1.386976.3.579.2.462 Unknown [id number] 2.16.8 40.1.166551.3.579.2.462 Unknown [id number] 2.16.8 40.1.809567.3.579.2.462 Unknown [id number] 2.16.8 40.1.161559.3.579.2.462 Unknown [id number] 2.16.8 40.1.752601.3.579.2.462 Unknown [id number] 2.16.8 40.1.775649.3.579.2.462 Unknown [id number] 2.16.8 40.1.210786.3.579.2.462 Unknown [id number] 2.16.8 40.1.246235.3.579.2.462 Unknown [id number] 2.16.8 40.1.077959.3.579.2.462 Unknown [id number] 2.16.8 40.1.811186.3.579.2.462 Unknown [id number] 2.16.8 40.1.762130.3.579.2.462 Unknown [id number] 2.16.8 40.1.314508.3.579.2.462 Unknown [id number] 2.16.8 40.1.025384.3.579.2.462 Unknown [id number] 2.16.8 40.1.523571.3.579.2.462 Unknown [id number] 2.16.8 40.1.944790.3.579.2.462 Unknown [id number] 2.16.8 40.1.232476.3.579.2.462 Unknown [id number] 2.16.8 40.1.755739.3.579.2.462 Unknown [id number] 2.16.8 40.1.013305.3.579.2.462 Unknown [id number] 2.16.8 40.1.517852.3.579.2.462 Unknown [id number] 2.16.8 40.1.258500.3.579.2.462 Unknown [id number] 2.16.8 40.1.768652.3.579.2.462 Unknown [id number] 2.16.8 40.1.830228.3.579.2.462 Unknown [id number] 2.16.8 40.1.575789.3.579.2.462 Unknown [id number] 2.16.8 40.1.520994.3.579.2.462 Unknown [id number] 2.16.8 40.1.895813.3.579.2.462 Unknown [id number] 2.16.8 40.1.048863.3.579.2.462 Unknown [id number] 2.16.8 40.1.093043.3.579.2.462 Unknown [id number] 2.16.8 40.1.144900.3.579.2.462 Unknown [id number] 2.16.8 40.1.977304.3.579.2.462 Unknown [id number] 2.16.8 40.1.113692.3.579.2.462 Unknown [id number] 2.16.8 40.1.730615.3.579.2.462 Unknown [id number] 2.16.8 40.1.343516.3.579.2.462 Unknown [id number] 2.16.8 40.1.676440.3.579.2.462 Unknown [id number] 2.16.8 40.1.172070.3.579.2.462 Unknown [id number] 2.16.8 40.1.804842.3.579.2.462 Unknown [id number] 2.16.8 40.1.230231.3.579.2.462 Unknown [id number] 2.16.8 40.1.173671.3.579.2.462 Unknown [id number] 2.16.8 40.1.541933.3.579.2.462 Unknown [id number] 2.16.8 40.1.104118.3.579.2.462 Unknown [id number] 2.16.8 40.1.503316.3.579.2.462 Unknown [id number] 2.16.8 40.1.573325.3.579.2.462 Unknown [id number] 2.16.8 40.1.830300.3.579.2.462 Unknown [id number] 2.16.8 40.1.609006.3.579.2.462 Unknown [id number] 2.16.8 40.1.769253.3.579.2.462 Unknown [id number] 2.16.8 40.1.837503.3.579.2.462 Social History Date Type Detail Facility Start: 06-17-2021 End: 07-17-2024 Tobacco smoking status NHIS Former smoker [facility] Comment on above: Tobacco/Smoke Exposu re: none Start: 08-19-2017 End: 06-17-2021 Tobacco use and exposure Never used [facility] Start: 06-17-2021 End: 04-06-2022 Alcohol intake Current non-drinker of alcohol (finding) [facility] Start: 1940 Sex Assigned At Not on file [facility] Exposure to SARS-CoV-2 (event) Not sure [facility] Start: 04-13-2019 Never smoked t obacco (finding) [facility] Comment on above: Tobacco/Smoke Exposu re: none Start: 1940 Sex Assigned At Female [facility] Start: 05-13-2023 End: 11-20-2023 Tobacco smoking status NHIS Unknown if ever smoked [facility] Start: 01-19-2021 None [facility] Start: 01-19-2021 Alone [facility] Start: 09-14-2017 Non-smoker [facility] Start: 01-02-2025 End: 01-09-2025 Sex Female (finding) [facility] NEGATED: Highlighted row [facility] Medical Equipment Procedure Code Equipment Code Equipment [...] twice daily. BD UF MINI PEN NEEDLE [id number] Start: 02-04-[address] Strips Start: 04-09-2020 Lancets Start: 11-16-2019 BD UF MINI PEN NEEDLE [id number] Start: 02-04-[address] Strips Start: 04-09-2020 Lancets Start: 11-16-2019 BD UF MINI PEN NEEDLE [id number], See Instructions, USE DIRECTED TWICE A DAY, # 100 syringe, 11 Refill(s), Pharmacy: [facility] ST[id number], 158.75, cm, 12/13/19 11:28:00 EDT, Height, 89.6, kg, 12/13/19 11:28:00 EDT, Dosing Weight Start: 02-04-2020 See Instructions , 3 bottle of 100, testing once daily, 90 day supply DX: E11.9, # 300 EA, 3 Refill(s), [id number], Diabetes, 158, cm, 04/09/20 16:02:00 EDT, Height, 90.8, kg, 04/09/20 16:02:00 EDT, Dosing Weight Start: 04-09-2020 See Instructions , Micro Thin lancets 33G use as directed once daily box of 100 DX E11.09, # 1 EA, 11 Refill(s), [id number], 158, cm, 11/14/19 13:17:00 EST, Height, 88.8, kg, 11/14/19 13:17:00 EST, Dosing Weight Start: 11-16-2019 See Instructions , qs for 1 month supply, BD UF mini pen needles [id number], DX: E11.9, # 1 EA, 11 Refill(s), [id number], 157.5, cm, 11/04/20 13:17:00 EST, Height, 90.7, kg, 11/04/20 13:17:00 EST, Dosing Weight Start: 11-04-2020 BD UF MINI PEN NEEDLE [id number], See Instructions, USE DIRECTED TWICE A DAY, # 100 syringe, 11 Refill(s), Pharmacy: [facility] STORE [id number], 158.75, cm, 12/13/19 11:28:00 EDT, Height, 89.6, kg, 12/13/19 11:28:00 EDT, Dosing Weight Start: 02-04-2020 See Instructions , 3 bottle of 100, testing once daily, 90 day supply DX: E11.9, # 300 EA, 3 Refill(s), [id number], Diabetes, 158, cm, 04/09/20 16:02:00 EDT, Height, 90.8, kg, 04/09/20 16:02:00 EDT, Dosing Weight Start: 04-09-2020 See Instructions , Micro Thin lancets 33G use as directed once daily box of 100 DX E11.09, # 1 EA, 11 Refill(s), [id number], 158, cm, 11/14/19 13:17:00 EST, Height, 88.8, kg, 11/14/19 13:17:00 EST, Dosing Weight Start: 11-16-2019 See Instructions , qs for 1 month supply, BD UF mini pen needles [id number], DX: E11.9, # 1 EA, 11 Refill(s), [id number], 157.5, cm, 11/04/20 13:17:00 EST, Height, 90.7, kg, 11/04/20 13:17:00 EST, Dosing Weight Start: 11-04-2020 BD UF MINI PEN NEEDLE [id number], See Instructions, USE DIRECTED TWICE A DAY, # 100 syringe, 11 Refill(s), Pharmacy: [facility] STORE [id number], 158.75, cm, 12/13/19 11:28:00 EDT, Height, 89.6, kg, 12/13/19 11:28:00 EDT, Dosing Weight Start: 02-04-2020 See Instructions , 3 bottle of 100, testing once daily, 90 day supply DX: E11.9, # 300 EA, 3 Refill(s), [id number], Diabetes, 158, cm, 04/09/20 16:02:00 EDT, Height, 90.8, kg, 04/09/20 16:02:00 EDT, Dosing Weight Start: 04-09-2020 See Instructions , Micro Thin lancets 33G use as directed once daily box of 100 DX E11.09, # 1 EA, 11 Refill(s), [id number], 158, cm, 11/14/19 13:17:00 EST, Height, 88.8, kg, 11/14/19 13:17:00 EST, Dosing Weight Start: 11-16-2019 See Instructions , qs for 1 month supply, BD UF mini pen needles [id number], DX: E11.9, # 1 EA, 11 Refill(s), [id number], 157, cm, 04/07/22 10:54:00 EDT, Height, 86.3, kg, 04/07/22 10:54:00 EDT, Dosing Weight Start: 04-14-2022 BD UF MINI PEN NEEDLE [id number], See Instructions, USE DIRECTED TWICE A DAY, # 100 syringe, 11 Refill(s), Pharmacy: [facility] STORE [id number], 158.75, cm, 12/13/19 11:28:00 EDT, Height, 89.6, [...] month supply, BD UF mini pen needles [id number], DX: E11.9, # 1 EA, 11 Refill(s), [id number], 157, cm, 04/07/22 10:54:00 EDT, Height, 86.3, kg, 04/07/22 10:54:00 EDT, Dosing Weight Start: 04-14-2022 BD UF MINI PEN NEEDLE [id number], See Instructions, USE DIRECTED TWICE A DAY, # 100 syringe, 11 Refill(s), Pharmacy: [facility], 158.75, cm, 12/13/19 11:28:00 EDT, Height, 89.6, [...] month supply, BD UF mini pen needles [id number], DX: E11.9, # 1 EA, 11 Refill(s), Pharmacy: [facility] #[id number], 157, cm, 04/07/22 10:54:00 EDT, Height, 86.3, kg, 04/07/22 10:54:00 EDT, Dosing Weight Start: 04-14-2022 BLADDER STIMULATOR FDA Start: BLADDER STIMULATOR FDA Start: BD UF MINI PEN NEEDLE [id number], See Instructions, USE DIRECTED TWICE A DAY, # 100 syringe, 11 Refill(s), Pharmacy: [facility], 158.75, cm, 12/13/19 11:28:00 EDT, Height, 89.6, [...] month supply, BD UF mini pen needles [id number], DX: E11.9, # 1 EA, 11 Refill(s), Pharmacy: [place] [address], 155, cm, 06/16/23 13:11:00 EDT, Height, 85.5, kg, 06/16/23 12:56:00 EDT, Dosing Weight Start: 07-12-2023 FDA Start: FDA Start: BD UF MINI PEN NEEDLE [id number], See Instructions, USE DIRECTED TWICE A DAY, # 100 syringe, 11 Refill(s), Pharmacy: [facility], 158.75, cm, 12/13/19 11:28:00 EDT, Height, 89.6, [...] month supply, BD UF mini pen needles [id number], DX: E11.9, # 1 EA, 11 Refill(s), Pharmacy: [facility] [address], 155, cm, 06/16/23 13:11:00 EDT, Height, 85.5, kg, 06/16/23 12:56:00 EDT, Dosing Weight Start: 07-12-2023 BLADDER STIMULATOR FDA Start: BLADDER STIMULATOR FDA Start: BLADDER STIMULATOR FDA Start: BLADDER STIMULATOR FDA Start: BLADDER STIMULATOR FDA Start: BD UF MINI PEN NEEDLE [id number], See Instructions, USE DIRECTED TWICE A DAY, # 100 syringe, 11 Refill(s), Pharmacy: [facility], 158.75, cm, 12/13/19 11:28:00 EDT, Height, 89.6, kg, 12/13/19 11:28:00 EDT, Dosing Weight Start: 02-04-2020 See Instructions , 3 bottle of 100, testing once daily, 90 day supply DX: E11.9, # 300 EA, 3 Refill(s), Pharmacy: [facility], Diabetes, 154, cm, 08/31/23 11:39:00 EST, Height, 81, kg, 08/31/23 11:39:00 EST, Dosing Weight Start: 10-14-2023 See Instructions , Micro Thin lancets 33G use as directed once daily box of 100 DX E11.09, # 1 EA, 11 Refill(s), Pharmacy: [facility] #30, 154, cm, 08/31/23 11:39:00 EST, Height, 81, kg, 08/31/23 11:39:00 EST, Dosing Weight Start: 10-14-2023 See Instructions , qs for 1 month supply, BD UF mini pen needles [id number], DX: E11.9, # 1 EA, 11 Refill(s), Pharmacy: [place] [id number], 154, cm, 08/31/23 11:39:00 EST, Height, 81, kg, 08/31/23 11:39:00 EST, Dosing Weight Start: 10-13-2023 BLADDER STIMULATOR FDA Start: BLADDER STIMULATOR FDA Start: BLADDER STIMULATOR FDA Start: BLADDER STIMULATOR FDA Start: BLADDER STIMULATOR FDA Start: BLADDER STIMULATOR FDA Start: FDA Start: FDA Start: Goals Date Patient Goal Desired Activity /State Functional Status Date Assessment Result Facility 08-15-2023 Functional status Bathroom Privilege [facility] Work Phone: 06-10-2023 Functional status Chair [facility] Work Phone: 06-10-2023 Functional status Fair [facility] Work Phone: 05-17-2023 Functional status Ambulates [facility] Work Phone: Mental Status Date Assessment Result Facility 08-14-2023 Cognitive function Voice/Name [facility] Work Phone: 08-14-2023 Cognitive function Awake;Alert;A ppropriate;Fol lows Commands [facility] Work Phone: 06-10-2023 Cognitive function Voice/Name [facility] Work Phone: 06-03-2023 Cognitive function Appropriate;Cooperativ e [facility] Work Phone: 05-17-2023 Cognitive function Voice/Name [facility] Work Phone: Clinical Notes 06-17-2021 to 07-19-2024 Note Date & Type Note Facility 07-19-2024 Note [facility] Medical Records Department [address] [place] [address] History Physical Exam 07/19/24 1004 MR#: [id number] Acct: [id number] Name: LUIZA GALO Rep #: [id number] : 1940 83 From: Doe Friend DO PCP: Dr. Rosalind Rubalcava MD Status:[facility] Location: [place] [address] History and Physical Date of Admission: 07/19/24 [...] stent placed in CBD. No specimens. HIDA 8.. without acute/chronic finding; no bile leak. abd/pelvis CT 7..24 1. Stool within the distal sigmoid colon and rectum which may represent developing fecal impaction. The remainder of the colon is fluid-filled which may represent incipient diarrhea. 2. Common bile duct stent with approximately 6.5 cm of the stent within the duodenum. OV 7..24 pt reports that overall she is feeling [...] Appearance: average body habitus and well nourished [facility] Head: normal to inspection Ears: hearing grossly [...] once a d (more content not included)... [facility] 04-02-2024 Note [facility] Medical Records Department [address] [place] [address] Discharge Summary 04/02/24 1211 MR#: [id number] Acct: [id number] Name: LUIZA GALO Rep #: [id number] : 1940 83 From: El Best MD PCP: Dr. Rosalind Rubalcava MD Status:ADM BJ Location: [place] [address] Providers Date of Admission: 04/01/24 Date of Discharge: 04/02/24 Primary Care Physician: Dr. 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 [facility] 11-20-2023 Discharge summary Note Date/Time November 20, 2023 8:38pm [facility] Medical Records Department [address] [place] [address] Emergency Department Summary 11/20/23 MR#: [id number] Acct: [id number] Name: LUIZA GALO Rep #:[id number] : 1940 83 From: Lesley Lopez MD [...] on hydrocodone for pain without significant improvement. [facility] Medical History Anxiety and depression Ascending cholangitis Atherosclerosis of coronary artery of [place] heart without angina pectoris Bradycardia Diabetes mellitus Dysphagia Essential hypertension Former tobacco use GERD (gastroesophageal reflux disease) History of left heart catheterization (LHC) (~01/20/21) Hyperlipidemia Immunosuppression due to drug therapy oil heaterman (current) use of anticoagulants Morbid obesity MARIVEL [...] mg tablet 2 mg PO BID pain 08/17/22 [History Last Taken Unknown] loperamide 2 mg [...] % (Auto) 53.4 Lymph % (Auto) 38.0 Gallia % (Auto) 5.8 Eos % (Auto) 1.9 [...] your Primary Care Provider. Call [facility] ([phone]) or report to the closest Emergency Room. Call 911 if necessary. 11/21/23 0040 <Electronically signed by Lesley Lopez MD> Cosigner Signature (if applicable): CC: Dr. Rosalind Rubalcava MD ~ Signed [facility] Work Phone: 1(194) 459-995711-13-2023 Progress note Author Cirilo Fine [facility] August 15, 2023 12:13pm Note Date/Time August 15, 2023 8:29am [facility] Medical Records Department [address] [place] [address] Progress Note - Hospitalist 08/15/23 0825 MR#: [id number] Acct: [id number] Name: LUIZA GALO Rep #:[id number] : 1940 83 From: Cirilo Fine DO PCP: Dr. Rosalind Rubalcava MD Status:ADM BJ Location: [place] [address] Reason for Visit Reason for Visit: Diagnoses [...] 88.1 H, Lymph % (Auto) 7.1 L, Gallia % (Auto) 3.7, Eos % (Auto) 0.2, [...] Clarity Clear, Urine pH 6.0, Ur Specific [place] 1.020, Urine Protein 30 H, Urine Glucose [...] % (Auto) 69.3, Lymph % (Auto) 24.2, Gallia % (Auto) 4.8, Eos % (Auto) 1.2, [...] 15:59 EST Reading Location ID and State: [facility] / [place] , Service support , Physical Exam Const [...] Cosigner Signature (if applicable): CC: ~ Signed [facility] Work Phone: 1(258) 430-786711-12-2023 History and physical note Author Judson Hernandez [facility] August 14, 2023 4:28pm Note Date/Time August 14, 2023 3:02pm [facility] Medical Records Department [address] [place] [address] H&P Exam - Hospitalist 08/14/23 1458 MR#: [id number] Acct: [id number] Name: LUIZA GALO Rep #:[id number] : 1940 83 From: Judson rucker MD PCP: Dr. Rosalind Rubalcava MD Status:ADM BJ Location: [place] [address] HPI - General General Date of Admission: [...] fluids in the ED, renal function stable. 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 Morbid obesity MARIVEL [...] [History Last Taken Unknown] hydrocodone-acetaminophen 5-325mg 5mg-325mg (Putnam) 1 tab PO Q8H PRN Pain 1-10 [...] AdvReac Mild Nausea Verified 08/14/23 12:00 [From Marcus 100/3.6] liraglutide AdvReac Mild Nausea Verified 08/14/23 12:00 [From Xultophkleber 100/3.6] atorvastatin [From Lipitor] AdvReac Unknown Unknown [...] 88.1 H, Lymph % (Auto) 7.1 L, Gallia % (Auto) 3.7, Eos % (Auto) 0.2, [...] Clarity Clear, Urine pH 6.0, Ur Specific [place] 1.020, Urine Protein 30 H, Urine Glucose [...] with colleagues Charges/Coding Visit Charges Inpatient E&M: 23035 Init Hosp L3 08/14/23 1628 <Electronically signed by Judson Hernandez MD> Cosigner Signature (if applicable): CC: Dr. Judson Hernandez MD; Dr. Rosalind Rubalcava MD~ Signed [facility] Work Phone: 1([phone]) 661-142911-12-2023 Discharge summary Author Enrrique Eric [facility] August 14, 2023 4:21pm Note Date/Time August 14, 2023 12:51pm [facility] Medical Records Department [address] [place] [address] Emergency Department Summary 08/14/23 MR#: [id number] Acct: [id number] Name: LUIZA GALO Rep #:[id number] : 1940 83 From: Enrrique Ny PCP: Dr. Rosalind Rubalcava, MD Status:ADM BJ Location: [facility] [id number] HPI History of Present Illness Chief Complaint: [...] chronic pain. Patient has had prescriptions for Putnam in the past and vitals between constipation and loose stools. Most recently she has had a couple laxatives. 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 Morbid obesity MARIVEL [...] [History Last Taken Unknown] hydrocodone-acetaminophen 5-325mg 5mg-325mg (Putnam) 1 tab PO Q8H PRN Pain 1-10 [...] 88.1 H Lymph % (Auto) 7.1 L Gallia % (Auto) 3.7 Eos % (Auto) 0.2 [...] Clarity Clear Urine pH 6.0 Ur Specific [place] 1.020 Urine Protein 30 H Urine Glucose [...] Impression: Gastroenteritis, Acute febrile illness Disposition Disposition: Acute Care Hospital [facility] What to do if you have Problems For any increased pain, shortness of breath, bleeding, nausea or vomiting, chestpain, or any unexpected problems, contact your Primary Care Provider. Call [facility] ([phone]) or report to the closest Emergency Room. Call 911 if necessary. 08/14/23 1621 <Electronically signed by Enrrique Eric DO> Cosigner Signature (if applicable): CC: Dr. Rosalind Rubalcava MD ~ Signed [facility] Work Phone: 1(860) 796-520711-08-2023 Note. MICRO - Microbiology PROCEDURE: Urine Culture [*1] SOURCE: Urine, Clean Catch BODY SITE: COLLECTED DATE/TIME: 2023 17:30 EST RECEIVED DATE/TIME: 2023 19:45 EST START DATE/TIME: 2023 19:46 EST FREE TEXT SOURCE: FINAL REPORTS Final Report [] Verified Date/Time/Personnel: 08/10/2023 14:36 EST >100,000 cfu/ml Multiple bacterial morphotypes present. Probable Contamination. Suggest recollection if clinically indicated. Performing Locations *1: This test was performed at: [facility], [address] [place] [address], [address] , [facility] ([place])06-10-2023 Hospital Discharge instructions Additional Instructions Discharge to [facility] 06/10/2023, [facility] PT/OT/[facility] Work Phone: 1(344) 561-400909-08-2023 Discharge summary Author Senthil Ortiz [facility] June 10, 2023 8:09am Note Date/Time June 07, 2023 8:55pm [facility] Medical Records Department [address] [place] [address] Discharge Summary 06/07/232050 MR#: [id number] Acct: [id number] Name: LUIZA AGLO Rep #:[id number] : 1940 82 From: Senthil Ortiz MD PCP: Dr. Rosalind Rubalcava MD Status:ADM IN Location: [place] [address]- Providers Date of Admission: 05/17/23 Primary Care [...] Code(s): I25.10 - Atherosclerotic heart disease of [place] coronary artery without angina pectoris (12) Hyperlipidemia: [...] without complications Qualifiers: Qualified Code(s): Z79.4 - skilled nursing (current) use of insulin; Z79.4 - skilled nursing (current) use of insulin; Z79.4 - oil heaterman (current) use of insulin; Z79.4 - oil heaterman (current) use of insulin (17) Restless leg [...] rehabilitation, strengthening, prior to discharge home to [facility]. * Debility - PT/OT. * Pain - Tylenol 1000mg q6h prn pain (1-5), Putnam 5/325mg 1 tablet Q12H prn pain (6-10). * Bowel - Loperamide 4mg q2h prn. * Adult immunization - Administer pneumonia vaccine, covid19 vaccine, flu vaccine as appropriate. * DVT prophylaxis - on Eliquis. * Anxiety - Xanax 0.5mg 4x/day, stable chronic nursing home use, GDR not recommended. * Hypertension - Metoprolol succinate 25mg daily, Losartan 100mg daily, Amlodipine 5mg daily. * Atrial fibrillation - Metoprolol succinate 25mg daily, Eliquis 5mg bid. * Hyperlipidemia - Atorvastatin 40mg qhs. 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 * Edema - [...] Insomnia - Trazodone 300mg qhs, stable chronic nursing home use, GDR not recommended. * Vitamin D [...] Q4H PRN pain 05/19/22 hydrocodone-acetaminophen 5-325mg 5mg-325mg (Putnam) 1 tab PO Q12H PRN Pain 1-10 [...] rehabilitation, strengthening, prior to discharge home to [facility]. Discharge to [facility] 06/10/2023, [facility] PT/OT/ST. Physical Exam Const alert [...] and Uncontrolled pain Additional Instructions: Discharge to [facility] 06/10/2023, [facility] PT/OT/ST. Please Follow Up With: FriendDoe, DO When: As scheduled. Meaningful Use Info Meaningful Use Diagnoses (Choose all that apply): None applicable Discharge Plan Admission Admit Date/Time: 05/17/23 18:15 Primary Reason for Your Visit: Debility. Attending Provider: Senthil Ortiz Chi Primary Care Provider: Rosalind Rubalcava Instructions Additional Instructions / Restrictions: Discharge to [facility] 06/10/2023, [facility] PT/OT/ST. Discharge Orders/Prescriptions Prescriptions: New metoprolol succinate 50 mg Tablet Extended Release 24 Hr 50 mg PO DAILY 30 Days Qty: 30 0RF Continued alprazolam 0.5 mg tablet 0.5 mg PO 4X/DAY montelukast 10 mg tablet 10 mg PO DAILY hydrocodone-acetaminophen [Putnam] 5-325 mg tablet 1 tab PO Q12H [...] on 06/10/23 at 0809 Addendum Discharge to [facility] 06/10/2023, [facility] PT/OT/ST. 06/10/23 0809<Electronically signed by Senthil Ortiz MD> Cosigner Signature (if applicable): cc: Dr. Rosalind Rubalcava MD; Dr. Senthil Ortiz MD ~* Signed [facility] Work Phone: 1(613) 297-899209-08-2023 Discharge summary Author Senthil Ortiz [facility] June 10, 2023 8:09am Note Date/Time June 07, 2023 9:05pm [facility] Medical Records Department [address] [place] [address] Transfer to [facility] MR#: [id number] Acct: [id number] Name: LUIZA GALO Rep #:[id number] : 1940 82 From: Senthil Ortiz MD [...] Code(s): I25.10 - Atherosclerotic heart disease of [place] coronary artery without angina pectoris (12) Hyperlipidemia: [...] rehabilitation, strengthening, prior to discharge home to [facility]. * Debility - PT/OT. * Pain - Tylenol 1000mg q6h prn pain (1-5), Putnam 5/325mg 1 tablet Q12H prn pain (6-10). * Bowel - Loperamide 4mg q2h prn. * Adult immunization - Administer pneumonia vaccine, covid19 vaccine, flu vaccine as appropriate. * DVT prophylaxis - on Eliquis. 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 * Hypertension - Metoprolol succinate 25mg daily, Losartan 100mg daily, Amlod ipine 5mg daily. * Atrial fibrillation - Metoprolol succinate 25mg daily, Eliquis 5mg bid. * Hyperlipidemia - Atorvastatin 40mg qhs. * Depression - Lexapro 10mg daily, Topamax 50mg bid, stable chronic nursing home use, GDR not recommended. * Edema - [...] Insomnia - Trazodone 300mg qhs, stable chronic nursing home use, GDR not recommended. * Vitamin D [...] Than 30 Days Type of Care Needed: Skilled Nursing/Assisted Living Rehab Potential: Fair Prognosis: Fair Additional Orders/Day of Discharge Day of Discharge: 06/10/23 Dietary and Speech Recommendations Dietitian Recommendations/Changes: Will liberalize diet to Regular w/ small portions d/t variable po intake Rec appetite stimulant to help encourage increased po intake at meals Follow Up Care Please Follow Up With: Friend,DoeDO When: 6-8 weeks Discharge Plan Admission Admit Date/Time: 05/17/23 18:15 Primary Reason for Your Visit: Debility. Attending Provider: Senthil Ortiz Chi Primary Care Provider: Rosalind Rubalcava Instructions Additional Instructions / Restrictions: Discharge to [facility] 06/10/2023, [facility] PT/OT/ST. Discharge Orders/Prescriptions Prescriptions: New metoprolol succinate 50 mg Tablet Extended Release 24 Hr 50 mg PO DAILY 30 Days Qty: 30 0RF Continued alprazolam 0.5 mg tablet 0.5 mg PO 4X/DAY montelukast 10 mg tablet 10 mg PO DAILY hydrocodone-acetaminophen [Putnam] 5-325 mg tablet 1 tab PO Q12H [...] Diabetes mellitus Qualifiers: Qualified Code(s): Z79.4 - skilled nursing (current) use of insulin; Z79.4 - oil heaterman (current) use of insulin; Z79.4 - oil heaterman (current) use of insulin; Z79.4- skilled nursing (current) use of insulin 06/07/23 2105 <Electronically signed by Senthil Ortiz MD> Cosigner Signature (if applicable): CC: Dr. Rosalind Rubalcava MD ~ ADDENDUM by Dr. Senthil Ortiz MD on 06/10/23 at 0809 Addendum Discharge to [facility] 06/10/2023, [facility] PT/OT/ST. 06/10/23 0809 <Electronically signed by Senthil Ortiz MD> cc: Dr. Rosalind Rubalcava MD ~* Signed [facility] Work Phone: 1(374) 371-456408-30-2023 History and physical note Author Senthil Angel [facility] June 01, 2023 5:41pm Note Date/Time May 17, 2023 7: 14pm [facility] Medical Records Department [address] [place] [address] History & Physical Exam 05/17/231913 MR#: [id number] Acct: [id number] Name: LUIZA GALO Rep #:[id number] : 1940 82 From: Senthil Ortiz MD PCP: Dr. Rosalind Rubalcava MD Status:ADM IN Location: TCU [id number] HPI - General General Date of Admission: 05/17/23 Date of Service: 05/18/23 Chief Complaint: Here for rehabilitation. HPI Narrative 05/12/2023 LUIZA GALO, is a 82 [facility]. 05/12/2023 EKG sinus rhythm [...] rehabilitation, strengthening, prior to discharge home to [facility]. 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 Morbid obesity MARIVEL [...] [History Last Taken Unknown] hydrocodone-acetaminophen 5-325mg 5mg-325mg (Putnam) 1 tab PO Q12H PRN Pain 1-10 [...] Diabetes mellitus: QUALIFIERS: Qualified Code(s): Z79.4 - skilled nursing (current) use of insulin; Z79.4 - skilled nursing (current) use of insulin; Z79.4 - oil heaterman (current)use of insulin; Z79.4 - skilled nursing (current) use of insulin (17) Restless leg syndrome: (18) Insomnia: (19) Overactive bladder: (20) Muscle spasm: PLAN: Plan 82 year old female with below past medical history hospitalized for fever, encephalopathy, jaundice secondary to acute cholangitis from choledocholithiasis, admitted to TCU with debility, here for rehabilitation, strengthening, prior to discharge home to [facility]. * Debility - PT/OT. * Pain - Tylenol 1000mg q6h prn pain (1-5), Putnam 5/325mg 1 tablet Q12H prn pain (6-10). * Bowel - Loperamide 4mg q2h prn. * Adult immunization - Administer pneumonia vaccine, covid19 vaccine, flu vac cine as appropriate. * DVT prophylaxis - on Eliquis. 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 * Hypertension - Metoprolol succinate 25mg daily, Losartan 100mg daily, Amlodipine 5mg daily. * Atrial fibrillation - Metoprolol succinate 25mg daily, Eliquis 5mg bid. * Hyperlipidemia - Atorvastatin 40mg qhs. * Depression - Lexapro 10mg daily, Topamax 50mg bid, stable chronic nursing home use, GDR not recommended. 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 * Vitamin [...] MD; Dr. Senthil Ortiz MD ~* Signed [facility] Work Phone: 1(651) 276-310708-16-2023 Progress note Author [facility] May 18, 2023 5:22pm Note Date/Time May 18, 2023 3: 14pm [facility] Medical Records Department [address] [place] [address] Progress Note - Pharmacy 05/18/23 1505 MR#: [id number] Acct: [id number] Name: LUIZA GALO Rep #:[id number] : 1940 82 From: Rosie Kitchen PCP: Dr. Rosalind Rubalcava MD Status:ADM IN Location: [place] [address] Documented by User: Rosie Kitchen 05/18/23 15:29 [...] (Verified 05/12/23 20:52) Unknown insulin degludec [From MetaMaterialsltophy 100/3.6] Adverse Reaction (Mild, Verified 05/12/23 20:52) [...] mls @ 15 mls/hr 05/17/23 18:56 IV .A16U73D PRN Additional IVPB Infusion Sodium Chloride 250 mls @ 15 mls/hr 05/17/23 18:56 IV .[id number] PRN Saline Flush Insulin Glargine 40 unit [...] (hip pain 05/12; requested Tylenol instead of Putnam), and no doses of PRN Putnam. Continue to monitor pain and for PRN [...] Continue to monitor for peripheral neuropathy and OBIEE OBIA SOLUTION ARCHITECT effects (Black Box Warning), tendon pain (black [...] GDR. Continue to monitor for s/s of OBIEE OBIA SOLUTION ARCHITECT effects (Beer?s Criteria) and respiratory depression, especially if the resident uses PRN doses of Putnam (Black Box Warning), falls/fractures (BEERs medication) and [...] by Senthil Ortiz MD> CC: ~ Signed [facility] Work Phone: 1(157) 148-192908-15-2023 Discharge summary Author Alee Yao [facility] May 17, 2023 4:23pm Note Date/Time May 17, 2023 2: 44pm [facility] Medical Records Department [address] [place] [address] [address] Discharge Summary 05/17/23 1443 MR#: [id number] Acct: [id number] Name: LUIZA GALO Rep #:[id number] : 1940 82 From: Alee Yao DO PCP: Dr. Rosailnd Rubalcava MD Status:ADM IN Location: [place] [address] Providers Date of Admission: 05/13/23 Primary Care Physician: Dr. Rosalind Rubalcava MD Consultations 05/13/23 01:59 Consult: Gastroenterology Routine Consulting Provider: [facility] Reason for Consult: Elevated Bili/LFT, N/V, [...] Immunodeficiency due to drugs; Z79.899 - Other nursing home (current) drug therapy (7) Hypotension: Status: Acute [...] Q4H PRN pain 05/19/22 hydrocodone-acetaminophen 5-325mg 5mg-325mg (Putnam) 1 tab PO Q12H PRN Pain 1-10 [...] who presented to the emergency department at [facility] late in the evening on 05/12/2023 with [...] mg tablet 10 mg PO DAILY hydrocodone-acetaminophen [Putnam] 5-325 mg tablet 1 tab PO Q12H [...] Tremfya 100 mg/mL auto-injector 100 mg subcut .[id number] Referrals / Follow Up: Doe Orr DO [[facility] Staff - Active Staff] - See Referral Note (1-2 mos) Rosalind Rubalcava MD [Primary Care Provider] - Within 1 Month Disposition Disposition (needs filled in before D/C Order can be placed): Halfway Facility Charges/Coding Visit Charges Inpatient E&M: 28938 SNF Disch >30 Min 05/17/23 1623 <Electronically signed by Alee Yao DO> Cosigner Signature (if applicable): CC: Dr. Alee Yao DO; Dr. Rosalind Rubalcava MD; Doe Orr DO~ Signed [facility] Work Phone: 1(442) 932-123408-15-2023 Discharge summary Author Alee Yao [facility] May 17, 2023 2:43pm Note Date/Time May 17, 2023 2: 43pm [facility] Medical Records Department [address] [place] [address] Transfer to Extended Care MR#: [id number] Acct: [id number] Name: LUIZA GALO Rep #:[id number] : 1940 82 From: Alee Yao DO [...] Immunodeficiency due to drugs; Z79.899 - Other nursing home (current) drug therapy (7) Hypotension: Status: Acute [...] mg tablet 10 mg PO DAILY hydrocodone-acetaminophen [Putnam] 5-325 mg tablet 1 tab PO Q12H [...] Tremfya 100 mg/mL auto-injector 100 mg subcut .a1rbefg metoprolol succinate 50 mg tablet extended release [...] Qualified Code(s): R50.9 - Fever, unspecified 05/17/23 2656 <Electronically signed by Alee Yao DO> Cosigner Signature (if applicable): CC: Dr. Octavia Gruber MD; Dr. Rosalind Rubalcava MD ~ [facility] Work Phone: 1(483) 699-753908-14-2023 Progress note Author Alee Yao [facility] May 16, 2023 3:31pm Note Date/Time May 16, 2023 3: 20pm [facility] Medical Records Department [address] [place] [address] Progress Note - Hospitalist 05/16/23 1512 MR#: [id number] Acct: [id number] Name: LUIZA GALO Rep #:[id number] : 1940 82 From: Alee Yao DO PCP: Dr. Rosalind Rubalcava MD Status:ADM IN Location: FL3 PQ235-4 Reason for Visit Reason for Visit: Fever/nausea/vomiting/confusion [...] 23:59 23:59 23:59 Intake Total 1970 / 1969 1390 / 1390 660 / [...] % (Auto) 51.4, Lymph % (Auto) 39.1, Gallia % (Auto) 5.8, Eos % (Auto) 2.6, [...] from insurance Charges/Coding Visit Charges Inpatient E&M: 50341 Subs Hosp L2 05/16/23 1531 <Electronically signed by Alee Yao DO> Cosigner Signature (if applicable): CC: ~ Signed [facility] Work Phone: [phone]) 922-222908-13-2023 Progress note Author Alee Yao [facility] May 15, 2023 1:25pm Note Date/Time May 15, 2023 1: 25pm [facility] Medical Records Department [address] [place] [address] Progress Note - Hospitalist 05/15/23 1316 MR#: [id number] Acct: [id number] Name: LUIZA GALO Rep #:[id number] : 1940 82 From: Alee Yao DO PCP: Dr. Rosalind Rubalcava MD Status:ADM IN Location: MS3 MX135-5 Reason for Visit Reason for Visit: Fever/nausea/vomiting/confusion [...] 23:59 23:59 Intake Total 8609 / 8809 1970 / 1970 330 / 330 Output Total 900 / [...] from insurance Charges/Coding Visit Charges Inpatient E&M: 33668 Subs Hosp L2 05/15/23 1325 <Electronically signed by Alee Yao DO> Cosigner Signature (if applicable): CC: ~ Signed [facility] Work Phone: 1(782) 954-279308-12-2023 Progress note Author Alee Yao [facility] May 14, 2023 12:25pm Note Date/Time May 14, 2023 12 :25pm [facility] Medical Records Department [address] [place] [address] Progress Note - Hospitalist 05/14/23 1215 MR#: [id number] Acct: [id number] Name: LUIZA GALO Rep #:[id number] : 1940 82 From: Alee Yao DO PCP: Dr. Rosalind Rubalcava MD Status:ADM IN Location: [place]3 LG277-4 Reason for Visit Reason for Visit: Fever/nausea/vomiting/confusion [...] (Auto) 70.2 H, Lymph % (Auto) 21.9, Gallia % (Auto) 5.7, Eos % (Auto) 1.3, [...] no intubation Charges/Coding Visit Charges Inpatient E&M: 65479 Subs Hosp L2 05/14/23 1225 <Electronically signed by Alee Yao DO> Cosigner Signature (if applicable): CC: ~ Signed [facility] Work Phone: 1(269) 443-430408-12-2023 Progress note Author Doe Orr [facility] May 14, 2023 9:35am Note Date/Time May 14, 2023 9: 30am [facility] Medical Records Department [address] [place] [address] Progress Note - GI 05/14/23 0928 MR#: [id number] Acct: [id number] Name: LUIZA GALO Rep #:[id number] : 1940 82 From: Doe Orr DO PCP: Dr. Rosalind Rubalcava MD Status:ADM IN Location: MS3 XO912-5 Subjective Subjective Patient underwent ERCP yesterday for [...] (Auto) 70.2 H, Lymph % (Auto) 21.9, Gallia % (Auto) 5.7, Eos % (Auto) 1.3, [...] Plan 82 y/o who presents to the [facility] ED on 05/12/23 with history of [...] Treatment for bile leak would be 10 [place] stent across the ampulla. She has isalready in place. We will order a HIDA scan to see if she has any radiologic evidence of bile leak. Recommend to continue antibiotic therapy for total of 7 days. Charges/Coding Visit Charges Inpatient E&M: 34319 Subs Hosp L3 05/14/23 0935 <Electronically signed by Doe Orr DO> Cosigner Signature (if applicable): CC: ~ Signed [facility] Work Phone: 1(405) 775-119608-11-2023 Consult note Author Doe Orr [facility] May 13, 2023 4:32pm Note Date/Time May 13, 2023 4: 26pm [facility] Medical Records Department [address] [place] [address] Consultation - GI 05/13/23 0724 MR#: [id number] Acct: [id number] Name: LUIZA GALO Corrine Rep #:[id number] : 1940 82 From: Doe Friend DO PCP: Dr. Rosalind Rubalcava MD Status:ADM IN Location: MS3 VR423-6 HPI Consult Data Date of Consult: 05/12/23 [...] and hypertension superimposed on diabetes mellitusand MARIVEL. 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 Morbid obesity MARIVEL [...] [History Last Taken Unknown] hydrocodone-acetaminophen 5-325mg 5mg-325mg (Putnam) 1 tab PO Q12H PRN Pain 1-10 Or Fever 05/19/22 [History Last Taken Unknown] insulin degludec 200 unit/mL (3 mL) subcutaneous pen 40 unit subcut QHS xvtwvnvu34/17/22 [History Last Taken Unknown] ropinirole 1 mg [...] mg/mL subcutaneous auto-injector (Tremfya) 100 mg subcut .v2ckfhccsboaqqgi 05/12/23 [History Last Taken Unknown] tizanidine 4 [...] 82.1 H, Lymph % (Auto) 10.1 L, Gallia % (Auto) 6.4, Eos % (Auto) 0.3, [...] Clarity Clear, Urine pH 7.0, Ur Specific [place] 1.010, Urine Protein 15 H, Urine Glucose [...] 77.1 H, Lymph % (Auto) 15.5 L, Gallia % (Auto) 6.5, Eos % (Auto) 0.2, [...] an 82 y/o who presents to the [facility] ED on 05/12/23 with history of [...] antibiotic therapy. Charges/Coding Visit Charges Inpatient E&M: 27389 Init Hosp L3 05/13/23 1632 <Electronically signed by Doe Friend DO> Cosigner Signature (if applicable): CC: Dr. Octavia Gruber MD; Dr. Rosalind Rubalcava MD~ Signed [facility] Work Phone: 1(275) 335-797808-11-2023 Procedure [facility] 05-13-2023 Procedure [facility]08-11-2023 Consult note Author Alee Yao [facility] May 13, 2023 10:51am Note Date/Time May 13, 2023 10 :05am [facility] Medical Records Department [address] [place] [address] Pharmacokinetic/Renal -Consult 05/13/23 1004 MR#: [id number] Acct: [id number] Name: LUIZA GALO Rep #:[id number] : 1940 82 From: Dany Hairston PCP: Dr. Rosalind Rubalcava MD Status:ADM IN Location: [place] [address] Consult Antibiotic Management Pharmacy has been consulted [...] Date Alee Yao DO CC: ~ Signed [facility] Work Phone: 1(718) 282-276008-11-2023 Progress note Author Alee Yao [facility] May 13, 2023 7:49am Note Date/Time May 13, 2023 7: 21am [facility] Medical Records Department [facility] [place] [address] [place] [address] Progress Note - Hospitalist 05/13/23 0709 MR#: [id number] Acct: [id number] Name: LUIZA GALO Rep #:[id number] : 1940 82 From: Alee Yao DO PCP: Dr. Rosalind Rubalcava MD Status:ADM IN [place] [facility] XP297-0 Reason for Visit Reason for Visit: Fever/nausea vomiting/confusion Subjective Subjective Mrs. Galo is an 82-year-old white female with a complicated past medical history who presented to the emergency department at [facility] late last evening on 05/12/2023 with fevers [...] 82.1 H, Lymph % (Auto) 10.1 L, Gallia % (Auto) 6.4, Eos % (Auto) 0.3, [...] Clarity Clear, Urine pH 7.0, Ur Specific [place] 1.010, Urine Protein 15 H, Urine Glucose [...] 77.1 H, Lymph % (Auto) 15.5 L, Gallia % (Auto) 6.5, Eos % (Auto) 0.2, [...] Cosigner Signature (if applicable): CC: ~ Signed [facility] Work Phone: [phone]) 544-963708-11-2023 History and physical note Author Octavia Gruber [facility] May 13, 2023 1:33am Note Date/Time May 13, 2023 12 :51am [facility] Medical Records Department [address] [place] [address] H&P Exam - Hospitalist 05/13/23 0049 MR#: [id number] Acct: [id number] Name: LUIZA GALO Rep #:[id number] : 1940 82 From: Octavia Gruber MD PCP: Dr. Rosalind Rubalcava MD Status:ADM IN Location: FL3 RI529-8 HPI - General General Date of Admission: [...] Hx CVA, Obesity who presents to the [facility] ED on 05/12/23 with history of [...] and morphine 4 mg IV x 1. [facility] Medical History Anxiety and depression Atherosclerosis of coronary artery of [place] heart without angina pectoris Bradycardia Diabetes mellitus Dysphagia Essential hypertension Former tobacco use GERD (gastroesophageal reflux disease) History of left heart catheterization (LHC) (~01/20/21) Hyperlipidemia 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 Morbid obesity MARIVEL [...] [History Last Taken Unknown] hydrocodone-acetaminophen 5-325mg 5mg-325mg (Putnam) 1 tab PO Q4H PRN Pain 1-10 [...] 100 mg/mL subcutaneous auto-injector (Tremfya) mg subcut .c1nowpm 05/12/23 [History Last Taken Unknown] tizanidine 4 [...] 82.1 H, Lymph % (Auto) 10.1 L, Gallia % (Auto) 6.4, Eos % (Auto) 0.3, [...] Clarity Clear, Urine pH 7.0, Ur Specific [place] 1.010, Urine Protein 15 H, Urine Glucose [...] 23:27 EDT Reading Location ID and State: [address] [place] [address] Tel , Service support , Gallbladder Ultrasound [...] Hx CVA, Obesity who presents to the [facility] ED on 05/12/23 with history of [...] 16 minutes. Charges/Coding Visit Charges Inpatient E&M: 14186 Init Hosp L3 Procedures Hospitalists Procedures: 10488 Advncd Care Plan 30 Min 05/13/23 0133 <Electronically signed by Octavia Gruber MD> Cosigner Signature (if applicable): CC: Dr. Octavia Gruber MD; Dr. Rosalind Rubalacva MD~ Signed [facility] Work Phone: 1(251) 569-102608-11-2023 Discharge summary Author Papo Morillo [facility] May 13, 2023 12:55am Note Date/Time May 12, 2023 10 :09pm [facility] Medical Records Department [address] [place] [address] Emergency Department Summary 05/12/23 MR#: [id number] Acct: [id number] Name: LUIZA GALO Rep #:[id number] : 1940 82 From: Papo Morillo MD [...] symptoms: Yes (Infection) Recent Illness/Hospitalization: No PFSH PFSH Medical History (Updated 05/13/23 @ 00:[address] Papo Morillo MD) Anxiety and depression Atherosclerosis of coronary artery of [place] heart without angina pectoris Bradycardia Diabetes mellitus Dysphagia Essential hypertension Former tobacco use GERD (gastroesophageal reflux disease) History of left heart catheterization (LHC) (~01/20/21) 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 Morbid obesity MARIVEL [...] [History Last Taken Unknown] hydrocodone-acetaminophen 5-325mg 5mg-325mg (Putnam) 1 tab PO Q4H PRN Pain 1-10 [...] 100 mg/mL subcutaneous auto-injector (Tremfya) mg subcut .x9naflz 05/12/23 [History Last Taken Unknown] tizanidine 4 [...] CSF otorrhea orrhinorrhea. Negative Alanis sign over [place] sign. No septal deviation hematoma. No dental [...] 82.1 H Lymph % (Auto) 10.1 L Gallia % (Auto) 6.4 Eos % (Auto) 0.3 [...] Clarity Clear Urine pH 7.0 Ur Specific [place] 1.010 Urine Protein 15 H Urine Glucose [...] Complaint: Fever Other Complaint: Fall ED Provider: Morillo,Papo Dx/Rx/DC Orders Clinical Impression: Acute encephalopathy, oil heaterman (current) use of anticoagulants, H/O coronary artery bypass surgery, Diabetes mellitus, Essential hypertension, Hyperlipidemia, Jaundice, Fever Prescriptions: No Action aspirin 81 mg tablet,delayed release (DR/EC) 81 mg PO QDAY alprazolam 0.5 mg tablet 0.5 mg PO TID montelukast 10 mg tablet 10 mg PO DAILY hydrocodone-acetaminophen [Putnam] 5-325 mg tablet 1 tab PO Q4H [...] PO Q8H Tremfya 100 mg/mL auto-injector subcut .z4yvvtv atorvastatin 40 mg tablet 40 mg PO [...] your Primary Care Provider. Call [facility] ([phone]) or report to the closest Emergency Room. Call 911 if necessary. 05/13/23 0055 <Electronically signed by Papo Morillo MD> Cosigner Signature (if applicable): CC: Dr. Rosalind Rubalcava MD ~ Signed [facility] Work Phone: [phone]) 273-815807-05-2022 Nurse Note* Maggi Ellington RN - 04/06/2022 [...] mild discomfort is NA documented [facility] encounter[facility]2022 NoteHNO ID: [id number] Author: Tejal Rivera MD Service: ? Author [...] Plan Instruction Sheet Given: [facility] History of Present illness Narrative* Tejal Rivera [...] Sheet Given: Post Cystoscopy documented in this encounterSelect [facility]06-21-2022 Miscellaneous Notes* Telephone Encounter - Amanda Bassett Ma - 03/23/2022 1:58 PM EDT Pt informed orders were placed Amanda Bassett Ma * Telephone Encounter - Tejal Rivera MD - 03/23/2022 12:14 PM EDT Yes, order placed Thank you * Telephone Encounter - Amanda Bassett Ma - 03/23/2022 11:06 AM EDT Luiza Castle Galo called today. : 1940 Allergies: Januvia [Sitagliptin], Latex, Metformin, and Codeine (cell) Message can be left with: with patient only Reason for call: pt is coming in for Botox 04/06/22 she would like to know if she needs a culture done before her appt. To make sure she doesn't have a UTI. Amanda Bassett Ma documented in this encounterSelect [facility]12-01-2021 Nurse Note* Maggi Ellington RN - 09/02/2021 [...] mild discomfort is NA documented in this encounterSelect [facility]12-01-2021 NoteHNO ID: [id number] Author: Tejal Rivera MD Service: ? Author [...] Plan Instruction Sheet Given: [facility]12-01-2021 Procedure note* Tejal Rivera MD - 09/02/2021 [...] Sheet Given: Post Cystoscopy documented in this encounterSelect [facility]-17-2021 Miscellaneous Notes* Telephone Encounter - Maggi Vega RN - 08/19/2021 3:46 PM EST Patient has an upcoming appointment and wondered if she needed to stop her coumadin- she doesn't, patient informed. Maggi Vega RN documented in this encounterSelect [facility]09-15-2021 NoteHNO ID: [id number] Author: Tejal Rivera MD Service: ? Author [...] (hypertension) - (more content not included)...[facility]09-15-[facility] History of Present illness Narrative* Tejal Rivera [...] 2 (diabetes mellitus, type 2) ([facility]) Enuresis RADHA (generalized anxiety disorder) [...] encounter diagnosis) (R35.1) Nocturia documented in this encounterOhio[facility] Hospitallt note Author Dany Hairston [facility] August 15, 2023 1:26pm Note Date/Time August 15, 2023 1:26pm [facility] Medical Records Department [address] [place] [address] Counseling Note - Pharmacy 08/15/23 1325 MR#: [id number] Acct: [id number] Name: LUIZA GALO Rep #:[id number] : 1940 83 From: Dany Hairston PCP: Dr. Rosalind Rubalcava MD Status:ADM BJ Y [place] [facility] NL792-9 Pharmacy [facility] Service has performed discharge medication reconciliation [...] was counselled on new medication ondansetron by pharmacy district manager Dean. Medications at Discharge Home Medications atorvastatin [...] Q4H PRN pain 05/19/22 hydrocodone-acetaminophen 5-325mg 5mg-325mg (Putnam) 1 tab PO Q12H PRN Pain 1-10 [...] Signature (if applicable): Date CC: ~ Signed [facility] Work Phone: Discharge summary Author Cirilo Fine [facility] August 15, 2023 12:17pm Note Date/Time August 15, 2023 12:14pm [facility] Medical Records Department [address] [place] [address] Discharge Summary 08/15/23 1213 MR#: [id number] Acct: [id number] Name: LUIZA GALO Rep #:[id number] : 1940 83 From: Cirilo Fine DO PCP: Dr. Rosalind Rubalcava MD Status:ADM BJ Location: [place] [address] Providers Date of Admission: 08/14/23 Primary Care [...] Q4H PRN pain 05/19/22 hydrocodone-acetaminophen 5-325mg 5mg-325mg (Putnam) 1 tab PO Q12H PRN Pain 1-10 [...] 88.1 H, Lymph % (Auto) 7.1 L, [place] % (Auto) 3.7, Eos % (Auto) 0.2, [...] Clarity Clear, Urine pH 6.0, Ur Specific [place] 1.020, Urine Protein 30 H, Urine Glucose [...] % (Auto) 69.3, Lymph % (Auto) 24.2, Gallia % (Auto) 4.8, Eos % (Auto) 1.2, [...] 15:59 EST Reading Location ID and State: [facility] / [place] , Service support , D/C Instructions Discharge Diet: 2000 Calorie Control Diet (gluten-free diet. ) Meaningful Use Info Meaningful Use Diagnoses (Choose all that apply): None applicable Discharge Plan Admission Admit Date/Time: 08/14/23 15:26 Primary Reason for Your Visit: gastroenteritis. Attending Provider: Cirilo Fine Primary Care Provider: Rosalind Rubalcava Consulting Providers: Judsno Hernandez Instructions Additional Instructions / Restrictions: Is [...] You may also benefit from seeing a livestock farm manager as outpatient as well. Discharge Orders/Prescriptions Prescriptions: New ondansetron 8 mg tablet,disintegrating 8 mg PO Q8H PRN (Reason: nausea and vomiting) Qty: 20 0RF Continued alprazolam 0.5 mg tablet 0.5 mg PO 4X/DAY montelukast 10 mg tablet 10 mg PO DAILY hydrocodone-acetaminophen [Putnam] 5-325 mg tablet 1 tab PO Q12H [...] NH/Intermed Care Charges/Coding Visit Charges Inpatient E&M: 43892 Disch Hosp >30min 08/15/23 1217 <Electronically signed by Cirilo Fine DO> Cosigner Signature (if applicable): CC: Dr. Cirilo Fine DO; Dr. Rosalind Rubalcava MD~ Signed [facility] Work Phone: Evaluation + Plan note Future Appointments Appointment Date:09/24/2021 11:15:00 AM Scheduled Provider:ROSALIND RUBALCAVA MD Location:[facility] Appointment Type: OV Future Scheduled Tests Laboratory* [...] Panel 08/07/21 * Complete Metabolic Panel 11/08/21 [facility] Evaluation + Plan note Future Appointments Appointment Date:11/20/2021 10:45:00 AM Scheduled Provider:ROSALIND RUBALCAVA MD Location:[facility] Appointment Type:PC OV Future Scheduled Tests Laboratory* COVID-19 Only (AO) 03/17/21 * Calcium Level Ionized 08/07/21 * Magnesium Level 08/07/21 * Thyroid Stimulating Hormone 08/07/21 * Free T4 08/07/21 * Urine Culture 09/24/21 * A1C Hemoglobin 08/07/21 * Complete Blood Count 08/07/21 * Free T3 08/07/21 * Complete Metabolic Panel 08/07/21 [facility] Evaluation + Plan note Future Appointments Appointment Date:03/05/2022 02:30:00 PM Scheduled Provider:ROSALIND RUBALCAVA MD Location:[facility] Appointment Type:PC Wellness Primetime Enhanced Appointment Date:04/07/2022 11:00:00 AM Scheduled Provider:ROSALIND RUBALCAVA MD Location:[facility] Appointment Type:PC OV Controlled Medication Future Scheduled Tests Laboratory* Calcium Level Ionized 08/07/21 * Magnesium Level 08/07/21 * Thyroid Stimulating Hormone 08/07/21 * Free T4 08/07/21 * Urine Culture 09/24/21 * A1C Hemoglobin 08/07/21 * Complete Blood Count 08/07/21 * Free T3 08/07/21 * Complete Metabolic Panel 08/07/21 * COVID-19 Only (AO) 03/17/21 [facility] Evaluation + Plan note Future Appointments Appointment Date:04/07/2022 11:00:00 AM Scheduled Provider:ROSALIND RUBALCAVA MD Location:[facility] Appointment Type:PC OV Controlled Medication Diagnostic Tests Pending * Urine Culture 03/24/22 Future Scheduled Tests Laboratory* Calcium Level Ionized 08/07/21 * Magnesium Level 08/07/21 * Thyroid Stimulating Hormone 08/07/21 * Free T4 08/07/21 * Urine Culture 09/24/21 * A1C Hemoglobin 08/07/21 * Complete Blood Count 08/07/21 * Free T3 08/07/21 * Complete Metabolic Panel 08/07/21 [facility] Evaluation + Plan note Future Appointments Appointment Date:05/21/2022 11:00:00 AM Scheduled Provider:ROSALIND RUBALCAVA MD Location:[facility] Appointment Type:PC OV Appointment Date:07/06/2022 11:00:00 AM Scheduled Provider:ROSALIND RUBALCAVA MD Location:[facility] Appointment Type:PC OV Controlled Medication Diagnostic Tests Pending * Vitamin D Level 05/11/22 Future Scheduled Tests Laboratory* Calcium Level Ionized 08/07/21 * Magnesium Level 08/07/21 * Thyroid Stimulating Hormone 08/07/21 * Free T4 08/07/21 * Urine Culture 09/24/21 * A1C Hemoglobin 08/07/21 * Complete Blood Count 08/07/21 * Free T3 08/07/21 * Complete Metabolic Panel 08/07/21 [facility] Evaluation + Plan note Future Appointments Appointment Date:01/07/2023 11:30:00 AM Scheduled Provider:ROSALIND RUBALCAVA MD Location:[facility] Appointment Type:PC OV Future Scheduled Tests Laboratory* Thyroid Stimulating Hormone 11/10/22 * Free T4 11/10/22 * A1C Hemoglobin 05/10/23 * Lipid Profile 05/10/23 * Complete Metabolic Panel 05/10/23 [facility] Evaluation + Plan note Future Appointments Appointment Date:03/11/2023 11:00:00 AM Scheduled Provider:ROSALIND RUBALCAVA MD Location:[facility] Appointment Type:PC OV Controlled Medication Appointment Date:05/13/2023 11:00:00 AM Scheduled Provider:ROSALIND RUBALCAVA MD Location:[facility] Appointment Type:PC OV Future Scheduled Tests Laboratory* Thyroid Stimulating Hormone 11/10/22 * Free T4 11/10/22 * A1C Hemoglobin 05/10/23 * Lipid Profile 05/10/23 * Complete Metabolic Panel 05/10/23 [facility] Evaluation + Plan note Future Appointments Appointment Date:11/15/2023 11:00:00 AM Scheduled Provider:ROSALIND RUBALCAVA MD Location:[facility] Appointment Type:PC OV Follow Up Future Scheduled Tests Laboratory* A1C Hemoglobin 11/09/23 * Complete Blood Count 08/09/23 * Lipid Profile 11/09/23 * Complete Metabolic Panel 11/09/23 Radiology* XR Spine Lumbosacral 2 or 3 Views 08/09/23 * XR Hip 3-4 Views Bilateral 08/09/23 [facility] Evaluation + Plan note Future Appointments Appointment [...] * XR Hip 3-4 Views Bilateral 08/09/23 [facility] Evaluation note* Diagnosis Urge incontinence- Primary Nocturia [facility] Diagnosis Urge incontinence- Primary [facility]* Diagnosis Urinary tract infection without hematuria, site unspecified- Primary documented [facility] Diagnosis Urge incontinence- Primary [facility]* Diagnosis Onset Date Resolution Status 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 Essential hypertension chron ic Hyperlipidemia chronic Paroxysmal atrial fibrillation chronic Acute encephalopathy acute Elevated serum creatinine ac lummi Fever acute Hypotension acute 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 Jaundice acute Transaminitis acute Diabetes mellitus chronic Essential hypertension chron ic 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, chronic Hyperlipidemia chronic 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 [facility] Work Phone: Evaluation note* Diagnosis Onset Date Resolution Status 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 Paroxysmal atrial [...] chronic Fever resolved Jaundice resolved Transaminitis resolved [facility] Work Phone: Evaluation note* Diagnosis Onset Date Resolution Status 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 Paroxysmal atrial [...] resolved Acute febrile illness acute Gastroenteritis acute [facility] Work Phone: Evaluation note* Diagnosis Onset Date Resolution Status Acute febrile illness resolv ed Gastroenteritis resolved SOB (shortness of breath) ac lummi 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 Paroxysmal atrial fibrillation chronic [facility] Work Phone: Evaluation note* Diagnosis Onset Date Resolution Status Acute febrile illness resolv ed Gastroenteritis resolved SOB (shortness of breath) ac lummi 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 Paroxysmal atrial fibrillation chronic Ascending cholangitis acute [facility] Work Phone: Evaluation note* Diagnosis Onset Date Resolution Status SOB (shortness of breath) ac lummi 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 Paroxysmal atrial fibrillation chronic Ascending cholangitis acute [facility] Work Phone: Evaluation noteNo assessment information available [facility] Work Phone: Hospital course Narrative No data available for this section [facility] Hospital Discharge instructions No data available for this section [facility] Progress note No data available for this section [facility] Reason for referral (narrative)No reason for referral [facility] Work [facility]: Summary Purpose Family History No Family History Records Found Relationship Condition Age at Onset Recorded Date/T alison father Coronary artery disease Unknown mother Coronary artery disease Unknown brother Coronary artery disease Unknown Advance Directives No Advanced Directives Records Found Advance Directive Response Recorded Date/ Time Name of Medical Power of Welding Process Specialist eugene kitchen May 13, 2023 1:54am Advance Directives No January 19 021 7:12am Living Will Yes May 13 1:54am Power of Welding Process Specialist Yes May 13 023 1:54am Advance Directive Response Recorded Date/ Time Name of Medical Power of Welding Process Specialist eugene kitchen May 13, 2023 1:54am Name of Medical Power of Welding Process Specialist Kong Kitchen May 19, 2023 11:23am Advance Directives No January 19 7:12am Living Will Yes May 19 11:23am Power of Welding Process Specialist Yes May 19 023 11:23am Advance Directive Response Recorded Date/ Time Name of Medical Power of Welding Process Specialist eugene kitchen May 13, 2023 12:54am Name of Medical Power of Welding Process Specialist Kong Kitchen May 19, 2023 10:23am Name of Medical Power of Welding Process Specialist mona (son) August 14, 2023 12:14pm Advance Directives No January 19 021 6:12am Living Will Yes August 14 12:14pm Power of Welding Process Specialist Yes August 14, 2023 12:14pm Advance Directive Response Recorded Date/ Time Name of Medical Power of Welding Process Specialist eugene kitchen May 13, 2023 12:54am Name of Medical Power of Welding Process Specialist Kong Kitchen May 19, 2023 10:23am Name of Medical Power of Welding Process Specialist mona (son) August 14, 2023 4:11pm Advance Directives No January 19 021 6:12am Living Will Yes August 14 4:11pm Power of Welding Process Specialist Yes August 14, 2023 4:11pm Advance Directive Response Recorded Date/ Time Name of Medical Power of Welding Process Specialist mona (son) August 14, 2023 4:11pm Advance Directives No January 19 6:12am Living Will Yes August 14, 023 4:11pm Power of Welding Process Specialist Yes August 14, 2023 4:11pm Advance Directive Response Recorded Date/ Time Name of Medical Power of Welding Process Specialist mona (son) August 14, 2023 4:11pm Name of Medical Power of Welding Process Specialist daughter November 20, 2023 8:28pm Advance Directives No January 19 6:12am Living Will Yes November 20 8:28pm Power of Welding Process Specialist Yes November 20, 2023 8:28pm Advance Directive Response Recorded Date/ Time Name of Medical Power of Welding Process Specialist daughter November 20, 2023 9:28pm Advance Directives No January 19 7:12am Living Will Yes November 20 9:28pm Power of Welding Process Specialist Yes November 20, 2023 9:28pm Advance Directive [...] Visit Atherosclerosis of c oronary artery of [place] heart without angina pectoris Essential hypertension Hyperlipidemia Paroxysmal atrial fibrillation Acute encephalopathy Elevated serum creatinine Fever Hypotension Immunosuppression due to drug therapy Jaundice Transaminitis Diabetes mellitus Essential hypertension H/O coronary artery bypass surgery 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 Chief Complaint 1 Y FU ENCEPHALOPATHY ACUTE, FEVER, JAUNDICE FUO, TRANSAMINITIS/HYPERBILIRUBINEMIA, ENCEPHALOPA FUO, TRANSAMINITIS/HYPERBILIRUBINEMIA, ENCEPHALOPA FUO, TRANSAMINITIS/HYPERBILIRUBINEMIA, ENCEPHALOPA FUO, TRANSAMINITIS/HYPERBILIRUBINEMIA, ENCEPHALOPA FUO, TRANSAMINITIS/HYPERBILIRUBINEMIA, ENCEPHALOPA FUO, TRANSAMINITIS/HYPERBILIRUBINEMIA, ENCEPHALOPA FUO, TRANSAMINITIS/HYPERBILIRUBINEMIA, ENCEPHALOPA FUO/TRANSAMINITIS/HYPERBILIRUBINEMIA Reason for Visit Atherosclerosis of c oronary artery of [place] heart without angina pectoris Paroxysmal atrial fibrillation [...] Visit Atherosclerosis of c oronary artery of [place] heart without angina pectoris Paroxysmal atrial fibrillation [...] Visit Atherosclerosis of c oronary artery of [place] heart without angina pectoris Paroxysmal atrial fibrillation [...] of breath) Atherosclerosis of coronary artery of [place] heart without angina pectoris Paroxysmal atrial fibrillation Chief Complaint GASTROENTERITIS, ACU TE FEBRILE ILLNESS GASTROENTERITIS, ACUTE FEBRILE ILLNESS 6 M FU INT LABS E ORDERS TCU FU LOWER Reason for Visit Acute febrile illnes s Gastroenteritis SOB (shortness of breath) Atherosclerosis of coronary artery of [place] heart without angina pectoris Paroxysmal atrial fibrillation Ascending cholangitis Chief Complaint 6 M FU INT LABS E ORDERS TCU FU LOWER INT LABS Reason for Visit SOB (shortness of br eath) Atherosclerosis of coronary artery of [place] heart without angina pectoris Paroxysmal atrial fibrillation Ascending cholangitis Chief Complaint 6 M FU INT LABS E ORDERS TCU FU LOWER INT LABS CHF, SOB, JAIL DRUG USE - MONITOR LEVELS Amb Documentation Reason for Visit SOB (shortness of br eath) Atherosclerosis of coronary artery of [place] heart without angina pectoris Paroxysmal atrial fibrillation [...] NEW CONCERN January 28, 2025 3:1 6pm LABWORK February 04, 2025 5:00am [facility] LAB WORK February 11, 2025 5:0 0am [facility] WORK March 11, 2025 4:0 0am Chief Complaint Admit Date LABWORK December 10, 2024 5:0 0am LABWORK December 24, 2024 5:0 0am NEW CONCERN January 08, 2025 5:15 pm NEW CONCERN January 09, 2025 5:25 pm LABWORK January 10, 2025 5:0 0am FOLLOW UP EXAM January 10, 2025 3:0 1pm LABWORK January 14, 2025 5:0 0am NEW CONCERN January 28, 2025 3:1 6pm LABWORK February 04, 2025 5:00am CARE HOME LAB WORK February 11, 2025 5:0 0am NEW CONCERN February 26, 2025 12:12 pm CARE HOME LAB WORK March 04, 2025 1:1 7pm LABWORK March 06, 2025 5:00a m [facility] LAB WORK March 11, 2025 4:0 0am LABWORK March 18, 2025 5:00 am Additional Source Comments INFORMATION SOURCE (unrecogn ized section and content) DATE CREATED AUTHOR 08/15/2018 [facility] DATE CREATED AUTHOR AUTHOR'S ORGANIZ ATION 04/07/2022 [facility] DATE CREATED AUTHOR AUTHOR'S ORGANIZ ATION 06/02/2024 [facility] ([place]) DATE CREATED AUTHOR AUTHOR'S ORGANIZ ATION 03/28/[address] [facility] Source Comments (unrecognize d section and content) In the event this informatio n is protected by the Federal Confidentiality of Alcohol and Drug Abuse Patient Records regulations: The Federal rules restrict any use of the information to criminally investigate or prosecute any alcohol or drug abuse patient.[facility] the event this information is protected by the Federal Confidentiality of Alcohol and Drug Abuse Patient Records regulations: The Federal rules restrict any use of the information to criminally investigate or prosecute any alcohol or drug abuse patient.[facility] the event this information is protected by the Federal Confidentiality of Alcohol and Drug Abuse Patient Records regulations: The Federal rules restrict any use of the information to criminally investigate or prosecute any alcohol or drug abuse patient.[facility] the event this information is protected by the Federal Confidentiality of Alcohol and Drug Abuse Patient Records regulations: The Federal rules restrict any use of the information to criminally investigate or prosecute any alcohol or drug abuse patient.[facility] the event this information is protected by the Federal Confidentiality of Alcohol and Drug Abuse Patient Records regulations: The Federal rules restrict any use of the information to criminally investigate or prosecute any alcohol or drug abuse patient.[facility] Reason for Visit (unrecogniz ed section and content) Reason Comments New Patient Reason Comments Appointment Patient Question Reason Comments Cystoscopy-1 Urge Urinary Incontinence Specialty Diagnoses / Procedures Referred By Valerie rosado Referred To Contact Urology / UROLOGY Diagnoses botox, 200 units Procedures CYSTOSCOPY BOTOX Tejal Rivera MD [address] [place] [address] Tejal Rivera MD [address] [place] [address] Referral ID Status Reason Start Date Expiration Date Visits Re quested Visits Authorized [id number] Closed 09/02/2021 12/01/2021 1 1 Reason Comments Orders Reason Comments Urge Urinary Incontinence Cystoscopy-1 Specialty Diagnoses / Procedures Referred By Valerie rosado Referred To Contact Urology / UROLOGY Diagnoses Urge incontinence cysto botox Procedures BOTULINUM TOXIN A PER 1 UNIT CYSTOSCOPY TWORF133 units Tejal Rivera MD [address] [place] [address] Tejal Rivera MD [address] [place] [address] Referral ID Status Reason Start Date Expiration Date V isits Requested Visits Authorized [id number] Authorized 04/01/2022 10/02/2022 99 99 Care Teams (unrecognized sec tion and content) Dust Collector Treater Relationship Specialty Start Date End Date Rosalind Rubalcava MD [address] [place] [address] PCP - General [facility] 07/14/12 Dust Collector Treater Relationship Specialty Start Date End Date Rosalind Rubalcava MD [address] [place] [address] PCP - [facility] 07/14/12 Team Status: Active Member Role Status Dates Dr. Rosalind Rubalcava MD Family Provider Active Dr. Rosalind Rubalcava MD Primary Care Provider Active Team Status: Inactive Member Role Status Dates Dr. Rosalind Rubalcava MD Primary Care Provider, Referrin g Provider Active Katalina Torres PAIRER ODDS, PAIRER ODDS-C Attending Provider Active Team Status: Active Member [...] Other Pro vider Active Dr. Cirilo Fine , Attending Provider, Other Provid er Active Team Status: Inactive Member Role Status Dates Dr. Rosalind Rubalcava MD Primary Care Provider Active Dr. Enrrique Eric DO Emergency Provider Active Dr. Judson Hernandez MD Admit Provider, Other Pro vider Active Dr. Cirilo Fine DO Attending Provider Active Team Status: Inactive Member Role Status Dates Dr. Rosalind Rubalcava MD Primary Care Provider Active Katalina Torres PAIRER ODDS, PAIRER ODDS-C Attending Provider, Referring P samy Active Team [...] MD Primary Care Provider Active Katalina Torres PAIRER ODDS, PAIRER ODDS-C Attending Provider Active Team Status: Active Member [...] 2024 End: September 21, 2024 Jing Jones PAIRER ODDS, PAIRER ODDS-C Attending Provider Active Start: September 21, 2024 [...] 2025 End: January 28, 2025 Jing Jones PAIRER ODDS, PAIRER ODDS-C Attending Provider Active Start: January 28, 2025 [...] 2025 End: January 10, 2025 Jing Jones PAIRER ODDS, PAIRER ODDS-C Attending Provider Active Start: January 10, 2025 End: January 10, 2025 Team Status: Inactive Member Role Status Dates Dr. Rosalind Rubalcava MD Primary Care Provider Active Start: January 09, 2025 End: January 09, 2025 Jing Jones PAIRER ODDS, PAIRER ODDS-C Attending Provider Active Start: January 09, 2025 End: January 09, 2025 Team Status: Inactive Member Role Status Dates Dr. Rosalind Rubalcava MD Primary Care Provider Active Start: January 08, 2025 End: January 08, 2025 Jing Jones NP, PAIRER ODDS-C Attending Provider Active Start: January 08, 2025 [...] Status: Active Member Role Status Dates Dr. Roslaind Rubalcava MD Primary Care Provider Active Start: March 11, 2025 Laverne VICTORIA MD Attending Provider Active Start: March 11, 2025 Laverne VICTORIA MD Referring Provider Active Start: March 11, 2025 Team Status: Inactive Member Role Status Dates Dr. Rosalind Rubalcava MD Primary Care Provider Active Start: February 26, 2025 End: February 26, 2025 Dr. Laverne Lea MD Attending Provider Active Start: February 26, 2025 End: February 26, 2025 Team Status: Active Member Role Status Dates Dr. Rosalind Rubalcava MD Primary Care Provider Active Start: March 18, 2025 Laverne VICTORIA MD Attending Provider Active Start: March 18, 2025 Care Team (unrecognized sect ion and content) Personnel Name: ROSALIND RUBALCAVA MD Address: Address: [address] [place] [address] Name: Keiry Gutierrez Clerk Flor PT Care Team Personnel Name: Keiry Gutierrez Clerk Flor PT Position: P3 Scheduling - Radio Officer Advanced Member Role: Other Name: ROSALIND RUBALCAVA MD Position: P4 Physician - Primary Care Med Service: Active Provider Member Role: Primary Care Physician Address: Address: [address] [place] [address] Care Team Related Persons Name: KONG KITCHEN [...] BE BASED ON THE PRIMARY CLINICAL RECORDS. [facility] [employer] provides no warranty or guarantee of the accuracy or completeness of information in this document.
[2025-04-15 09:07] LABS: Anion Gap 10 (5-15); BUN 14 mg/dL (4-19); BUN/Creat Ratio 16.5 RATIO (10-20); Calcium,Total 9.2 mg/dL (7.6-11.0); Carbon Dioxide 20.4 mmol/L (21.0-32.0); Chloride 108 mmol/L (98-108); Glucose 166 mg/dL (70-99); Potassium 3.9 mmol/L (3.3-5.1)
[2025-04-15 12:02] LABS: Hematocrit 33.2 % (37-47); Hemoglobin 11.0 g/dL (12.0-15.0); Immature Granulocytes Count 0.010 X10^3/uL (0.0-0.0); Mean Corp Hgb Conc 33.1 g/dL (32-36); Mean Corpuscular Volume 92.7 fL (81-99); Mean Platelet Vol. 10.2 fl (6.2-12.0); NRBC Flagged by Analyzer 0 % (0-5); Platelet Count 223 K/mm3 (150-450); RBC Distribution Width CV 13.0 % (11.6-14.6); RBC Distribution Width SD 44.3 fl (35.1-43.9); Red Blood Count 3.58 M/mm3 (4.2-5.4); White Blood Count 6.6 K/mm3 (4.4-11.0)
== END ==
LOC: OLS.WHLTSB 05:00
PROVIDERS: PCP Family Medicine; Visit Provider Internal Medicine
DX: I11.0 Hypertensive heart disease with heart failure (principal); I50.9 Heart failure, unspecified; E66.01 Morbid (severe) obesity due to excess calories
CPT/HCPCS: 36415; 80048; 85025

== ENCOUNTER → 2025-04-29 05:00 | Outpatient (REF) | payer MEDICARE, SELFPAY ==
--- OUTSIDE RECORDS SUMMARY | 2025-04-29 03:47 | XMS RPT_ITS | CCD ---
Author Organization [facility] Care Team Providers Care Services Manager Name Role Phone BOLOGNA, TEJAL A Unavailable [...] SAMIR Unavailable Unavailable ARYA, SAMIR Unavailable Unavailable RBUALCAVA, ROSALIND D Unavailable Unavailable Rosalind Rubalcava MD Primary Care Provider ROSALIND RUBALCAVA MD Primary Care Physician [place] PT, Dr. Rosalind Ayoub Primary Care Provider [...] Dr. Alee Yao Referring Provider Dr. Alee Yoa Other Provider Dr. Doe Orr Attending Provider Dr. Alee Yao Attending Provider Dr. Enrrique Eric Emergency Provider Dr. Judson Hernandez Admit Provider Dr. Judson Hernandez Other Provider Dr. Cirilo Fine Attending Provider Dr. Cirilo Fine Other Provider Dr. Rosalind Rubalcava Primary Care Provider 1([facility])[phone] Dr. Enrrique Eric Emergency Provider Dr. Judson Hernandez Admit Provider Dr. Judson Hernandez Other Provider Dr. Cirilo Fine Attending Provider 1([facility])[phone] Cirilo Fine Other Provider Dr. Rosalind Rubalcava Referring Provider 1([facility])[phone] Brian CHUTE BOSS, CHUTE BOSS-C Katalina Attending Provider Dr. Doe Orr Attending Provider 1([facility])[phone] Rosalind Rubalcava Primary Care Provider 1([facility])[phone] Dr. Rosalind Rubalcava Referring Provider 1([facility])[phone] Brian CHUTE BOSS, CHUTE BOSS-C Katalina Attending Provider Dr. Doe Orr Attending Provider 1([facility])[phone] Dr. Pawan Reed Attending Provider 1([facility])[phone] ROSALIND RUBALCAVA MD Attending Unavailable [...] Rosalind Rubalcava MD Primary Care Provider [phone] Laverne Lea MD Attending Provider UnavailDr. Rosalind Dias MD Primary Care Provider Laverne Lea MD Attending Provider Unavailtyesha Jones CHUTE BOSS-C, Jing Attending Provider Tickton CHUTE BOSS-C, Jing Attending Provider [place] CHUTE BOSS-C, Jing Attending Provider [place] CHUTE BOSS-C, Jing Attending Provider Khadar ALY, Dr. Dhaliwal Primary Care Provider [phone] Laverne Lea MD Attending Provider Unavaila ble Tickton CHUTE BOSS-C, Jing Attending Provider [place] CHUTE BOSS-C, Jing Attending Provider Laverne Lea MD Referring Provider Unavailtyesha Lea MD, Dr. Galloway Attending Provider Khadar ALY, Dr. Dhaliwal Primary Care Provider Laverne Lea MD Attending Provider Unavaila caden Miranda MD, Dr. Oleary Attending Provider Pawan Reed Attending Unavailable Rubalcava, Rosalind Primary Care Unavailable Rubalcava, Rosalind Referring Unavailable Tickton OLS, Jing Attending Unavailable Rubalcava, Rosalind Primary Care Unavailable Oleghe OLS, Efewongbe Attending Unavailabl e Rubalcava, Rosalind Primary Care Unavailable Oleghe OLS, Efewongbe Referring Unavailabl e Oleghe OLS, Efewongbe Attending Unavailabl e Rubalcava, Rosalind Primary Care Unavailable Rubalcava, Rosalind Primary Care Unavailable Oleghe OLS, Efewongbe Attending Unavailabl e Rubalcava, Rosalind Primary Care Unavailable Oleghe OLS, Efewongbe Attending Unavailabl e Oleghe OLS, Efewongbe Attending Unavailabl [...] Care Unavailable Rubalcava, Rosalind Primary Care Unavailable Oleghe OLS, Efewongbe Attending Unavailabl e Oleghe OLS, Efewongbe Attending Unavailabl e Rubalcava, Rosalind Primary Care Unavailable Oleghe OLS, Efewongbe Attending Unavailabl e Rubalcava, Rosalind Primary Care Unavailable Rubalcava, Rosalind Primary Care Unavailable Oleghe OLS, Efewongbe Referring Unavailabl e Oleghe OLS, Efewongbe Attending Unavailabl e Rubalcava, Rosalind Primary Care Unavailable Oleghe OLS, Efewongbe Attending Unavailabl e Oleghe OLS, Efewongbe Attending Unavailabl e Rubalcava, Rosalind Primary Care Unavailable Tickton CHUTE BOSS, Jing Attending Unavailable Rubalcava, Rosalind Primary Care Unavailable Rubalcava, Rosalind Primary Care Unavailable Friend, Doe Consulting Unavailable Friend, Doe Attending Unavailable Rubalcava, Rosalind Referring Unavailable Tickton CHUTE BOSS, Jing Attending Unavailable Rubalcava, Rosalind Primary Care Unavailable Rubalcava, Rosalind Primary Care Unavailable Friend, Doe Attending Unavailable Rubalcava, Rosalind Referring Unavailable Oleghe OLS, Efewongbe Attending Unavailabl e Rubalcava, Rosalind Primary Care Unavailable Rubalcava, Rosalind Primary Care Unavailable Tickton CHUTE BOSS, Jing Attending Unavailable Oleghe OLS, Efewongbe Attending Unavailabl e Rubalcava, Rosalind Primary Care Unavailable Rubalcava, Rosalind Primary Care Unavailable Tickton CHUTE BOSS, Jing Attending Unavailable Rubalcava, Rosalind Primary Care Unavailable Tickton CHUTE BOSS, Jing Attending Unavailable Tickton CHUTE BOSS, Jing Attending Unavailable Rubalcava, Rosalind Primary Care Unavailable Tickton CHUTE BOSS, Jing Attending Unavailable Rubalcava, Rosalind Primary Care Unavailable Tickton CHUTE BOSS, Jing Attending Unavailable Rubalcava, Rosalind Primary Care Unavailable Tickton CHUTE BOSS, Jing Attending Unavailable Rubalcava, Rosalind Primary Care Unavailable Rubalcava, Rosalind Primary Care Unavailable Oleghe, Efewongbe Attending Unavailable Oleghe OLS, Efewongbe Attending Unavailabl e Rubalcava, Rosalind Primary Care Unavailable Oleghe, Efewongbe Attending Unavailable Rubalcava, Rosalind Primary Care Unavailable Deric Cortez Attending Unavailable Rubalcava, Rosalind Primary Care Unavailable Rubalcava, Rosalind Referring Unavailable Tickton CHUTE BOSS, Jing Attending Unavailable Rubalcava, Rosalind Primary Care [...] [CODEINE] Drug Allergy 2 Other: See Comments [facility] Repository (20 sources) Latex; Translations: [LATEX] Propensity to adverse reactions (disorder) 8 Hives [facility] Repository Comment on above: only allergic when a lready sick (6 sources) metFORMIN; Translations: [METFORMIN] Drug Allergy 7 Unknown [facility] Repository (16 sources) SITagliptin; Translations: [SITAGLIPTIN] Drug Allergy 7 Unknown [facility] Repository (20 sources) Promethazine; Translations: [promethazine] Drug Allergy 3 PT UNSURE OF REACTION [facility] (20 sources) tiZANidine; Translations: [tizanidine] Drug Allergy 3 SICK, DIZZINESS, Unknown [facility] (19 sources) atorvastatin Drug Allergy 3 Unknown [facility] (19 sources) insulin degludec Drug Allergy 3 Nausea [facility] (19 sources) insulin isophane Drug Allergy 3 heart burn [facility] (19 sources) liraglutide Drug Allergy 3 Nausea [facility] (20 sources) SITagliptin; Translations: [sitagliptin phosphate] Drug Allergy 3 Unknown [facility] (19 sources) Anesthetics - Amide Type - Select A Allergy to substance 3 NEEDS FOLLOW-UP [facility] (19 sources) Anesthetics - Tyra Type- Parabens Allergy to substance 3 NEEDS FOLLOW-UP [facility] (1 source) atorvastatin Drug Allergy 4 [facility] Rep[facility] (1 source) insulin degludec Drug Allergy 4 [facility] (1 source) insulin isophane Drug Allergy 4 [facility] Rep[facility] (1 source) liraglutide Drug Allergy 4 [facility] (1 source) Promethazine Drug Allergy 4 [facility] (1 source) tiZANidine Drug Allergy 4 [facility] (1 source) Anesthetics - Amide Type - Select A Drug allergy (disorder) 4 [facility] Rep[facility] (1 source) Anesthetics - Tyra Type- Parabens Drug allergy (disorder) 4 [facility] Repository Medications Current Medications Medication Drug Class(es) Dates Sig (Normalized) Sig (Original) acetaminophen 500 mg oral tablet (20 sources) Start: 02-18-2023 Tylenol Extra Strength 500 mg oral tablet Dose : 1,000 mg = 2 tab(s), Oral, q4h, PRN as needed for pain, # 120 tab(s), 1 Refill(s), Pharmacy: [place] [id number], 155.5, cm, 02/11/23 10:54:00 EDT, Height, kg, 02/11/23 10:54:00 EDT, Dosing Weight Start Date: 02/18/23 Status: Ordered Start: 10-29-2022 Tylenol Extra Strength 500 mg oral tablet Dose : 1,000 mg = 2 tab(s), Oral, q4h, PRN as needed for pain, # 120 tab(s), 1 Refill(s), Pharmacy: [place] [id number], 157, cm, 10/13/22 15:01:00 EST, Height, kg, [...] above: Take 500 mg by mouth . aspirin 81 mg delayed releas e oral [...] cap(s), 0 Refill(s), 03/11/23 14:45:00 EDT, Pharmacy: [facility] [place] - [id number], UTI (urinary tract infection), 155, cm, 03/04/23 13:08:00 EDT, Height, 90.9 Start Date: 03/04/23 Stop Date: 03/11/23 Status: Ordered Start: 12-17-2022 End: 12-24-2022 cephalexin 500 mg oral capsu le Dose : 500 mg = 1 cap(s), Oral, TID, X 7 day(s), # 21 cap(s), 0 Refill(s), 12/24/22 9:33:00 EDT, Pharmacy: [place] [id number], Atrial fibrillation Anticoagulant long-term use, 157, cm, 12/17/22 8:53:00 EDT, Height, 89.1 Start Date: 12/17/22 Stop Date: 12/24/22 Status: Ordered Start: 04-06-2022 End: 04-06-2022 cephALEXin 500 mg cap(s) (KE FLEX) Start: 02-19-2022 End: 02-26-2022 cephalexin 500 mg oral capsu le Dose : 500 mg = 1 cap(s), Oral, q8h, X 7 day(s), # 21 cap(s), 0 Refill(s), 02/26/22 13:18:00 EDT, [id number], 157, cm, 02/19/22 12:58:00 EDT, Height, 85.9 Start Date: 02/19/22 Stop Date: 02/26/22 Status: Ordered Start: 09-17-2021 End: 09-24-2021 Keflex 500 mg oral capsule D ose : 500 mg = 1 cap(s), Oral, q12h, X 7 day(s), # 14 cap(s), 0 Refill(s), 09/24/21 14:50:00 EST, [id number], UTI symptoms, 156.8, cm, 09/17/21 14:03:00 EST, Height, 85.6, kg, 09/17/21 14:03:00 EST, Dosing Weight Start Date: 09/17/21 Stop Date: 09/24/21 Status: Ordered Start: 09-02-2021 End: 09-02-2021 cephALEXin 500 mg cap(s) (KE FLEX) cholecalciferol 0.125 mg ora l capsule (19 sources) Vitamin D Start: 01-20-2022 DME MISCellaneous (5 sources) Start: 10-13-2023 DME MISCellane ous See Instructions, glucometer., # 1 EA, 0 Refill(s), Pharmacy: [place] [id number], 154, cm, 08/31/23 11:39:00 EST, Height, 81, kg, 08/31/23 11:39:00 EST, Dosing Weight Start Date: 10/13/23 Status: Ordered Start: 06-17-2022 DME Mello chavez See Instructions, glucometer., # 1 EA, 0 Refill(s), 85.7 Start Date: 06/17/22 Status: Ordered escitalopram 10 mg oral tabl et (20 sources) Serotonin Reuptake Inhibitor Start: 07-17-2024 Start: 01-06-2022 End: 05-21-2024 Start: 07-22-2021 Lexapro 10 mg oral tablet Dose : 10 mg = 1 tab(s), Oral, qDay, # 90 tab(s), 1 Refill(s), Pharmacy: [facility] #[id number], Recurrent depression, 157, cm, 07/22/21 15:01:00 EDT, Height, kg, 07/22/21 15:01:00 EDT, Dosing Weight Start Date: 07/22/21 Status: Ordered Gemtesa (2 sources) Start: 02-11-2023 take 1 mg by mouth once daily Gemtesa mg =, Oral, qDay, 0 Refill(s) Start Date: 02/11/23 Status: Ordered hydrALAZINE hydrochloride 25 mg oral tablet (20 sources) Arteriolar Vasodilator Start: 04-02-2024 End: 07-17-2024 [...] sites, # 9 mL, 5 Refill(s), Pharmacy: [facility] - [id number], 154, cm, 03/30/24 8:57:00 EDT, Height, kg, 03/30/24 8:57:00 EDT, Dosing Weight Start Date: 03/30/24 Stop Date: 09/26/24 Status: Ordered Start: 2023 End: 02-05-2024 inject 1 dose by subcutaneous injection once daily Tresiba FlexTouch 200 units/mL 3 mL subcutaneous solution Dose : 30 unit(s) =, Subcutaneous, qDay, rotate injection sites, # 9 mL, 5 Refill(s), Pharmacy: [place] [id number], 155, cm, 08/09/23 10:54:00 EST, Height, kg, [...] sites, # 2 EA, 5 Refill(s), Pharmacy: [facility] [id number], 157, cm, 08/25/22 16:05:00 EST, Height, kg, [...] qDay, # 30 tab(s), 11 Refill(s), Pharmacy: [place] [id number], Chronic low back pain Hypothyroidism, 154, cm, [...] 05-17-2023 Start: 05-03-2017 take 1 tablet by once daily losartan (COZAAR) 100 mg tablet Take 100 mg by mouth once daily. 4 05/03/2017 Active losartan yany um (LOSARTAN ORAL) Take by mouth. 0 Active Comment on above: Take 100 mg by mouth once daily. Take by mouth. naloxone hydrochloride 40 mg/ml nasal spray (9 sources) Opioid Antagonist Start: 12-09-2021 Narcan 4 mg/0.1 mL nasal spray 1 spray(s), Intranasal, AsDirected, PRN see pharmacy notes, may repeat every 2 to 3 minutes until patient responds, # 2 EA, 0 Refill(s), Pharmacy: [place] [id number], 157, cm, 01/07/23 11:37:00 EDT, Height Start [...] month supply, BD UF mini pen needles 7uid22G, DX: E11.9, # 1 EA, 11 Refill(s), Pharmacy: [facility] #[id number], 157.5, cm, 11/04/20 13:17:00 EST, Height, 90.7, kg, 11/04/20 13:17:00 EST, Dosing Weight Start Date: 11/04/20 Status: Ordered rOPINIRole 1 mg oral tablet (20 sources) Nonergot Dopamine Agonist Start: 05-19-2022 Start: 05-19-2022 take 2 tablets by mo ut at bedtime Ropinirole 1 mg tablet Active 2 mg PO AT BEDTIME May 19, 2022 12:00am Start: 05-19-2022 take 2 mg by mouth twice daily Ropinirole Active 2 MG PO TWICE A DAY May 19, 2022 12:00am Start: 01-26-2022 take 2 tablets by mo ut in the morning rOPINIRole 1 mg oral tablet See Instructions, Take 2 tabs in the morning and 2 tabs in the evening., # 120 tab(s), 3 Refill(s), [id number], 157, cm, 01/22/22 15:31:00 EDT, Height, [...] oral tablet (20 sources) Opioid Agonist Start: 04-11-2025 Start: 07-17-2024 End: 02-18-2025 Start: 07-17-2024 End: 10-04-2024 take 1 tablet by mouth four times daily as needed for pain Tramadol 50 mg tablet Discontinued 50 mg PO 4 TIMES DAILY NEEDED as needed for pain July 17, 2024 12:00am October 04, 2024 12:17pm Start: 04-26-2024 End: 05-16-2024 Start: 04-26-2024 End: 02-18-2025 Start: 04-26-2024 End: 05-16-2024 take 1 tablet by mouth every eight hours as needed for pain Tramadol 50 mg tablet Discontinued 50 mg PO Q8H as needed for pain April 26, 2024 12:00am May 15, 2024 12:00am May 16, 2024 12:04am Start: 09-11-2017 End: 11-03-2017 Start: 09-11-2017 End: 11-03-2017 traZODone hydrochloride 150 mg oral tablet (20 sources) Serotonin Reuptake Inhibitor Start: 10-24-2023 End: 05-10-2025 take 1 tablet by mouth at bedtime Trazodone 150 mg tablet Active 150 mg PO AT BEDTIME October 24, 2023 12:19pm Start: 09-13-2023 traZODone 150 mg oral tablet Dose : 150 mg = 1 tab(s), Oral, qHS, # 90 tab(s), 0 Refill(s), Pharmacy: [place] [id number], 154, cm, 08/31/23 11:39:00 EST, Height, kg, 08/31/23 11:39:00 EST, Dosing Weight Start Date: 09/13/23 Status: Ordered Start: 05-17-2023 traZODone 150 mg oral tablet Dose : 150 mg = 1 tab(s), Oral, qHS, # 90 tab(s), 0 Refill(s), Pharmacy: [place] [id number], 155, cm, 04/08/23 11:20:00 EDT, Height, kg, 04/08/23 11:20:00 EDT, Dosing Weight Start Date: 05/17/23 Status: Ordered Start: 02-18-2023 traZODone 150 mg oral tablet Dose : 150 mg = 1 tab(s), Oral, qHS, # 90 tab(s), 0 Refill(s), Pharmacy: [place] [id number], 155.5, cm, 02/11/23 10:54:00 EDT, Height, kg, 02/11/23 10:54:00 EDT, Dosing Weight Start Date: 02/18/23 Status: Ordered Start: 11-30-2022 traZODone 150 mg oral tablet Dose : 150 mg = 1 tab(s), Oral, qHS, # 90 tab(s), 0 Refill(s), Pharmacy: [place] [id number], 157, cm, 11/19/22 15:09:00 EST, Height, kg, [...] qHS, # 90 tab(s), 1 Refill(s), [id number], 157, cm, 04/07/22 10:54:00 EDT, Height [...] qHS, # 90 tab(s), 3 Refill(s), [id number], 157, cm, 12/04/21 11:32:00 EST, Height, kg, 12/04/21 11:32:00 EST, Dosing Weight Start Date: 12/04/21 Stop Date: 11/29/22 Status: Ordered Start: 10-22-2021 traZODone 150 mg oral tablet Dose : 150 mg = 1 tab(s), Oral, BID, # 60 tab(s), 11 Refill(s), Pharmacy: [facility] #[id number], 157, cm, 10/22/21 10:32:00 EST, Height, [...] sites, # 3 EA, 11 Refill(s), [id number], 157.5, cm, 04/08/21 14:24:00 EDT, Height, kg, 04/08/21 14:24:00 EDT, Dosing Weight Start Date: 04/08/21 Stop Date: 04/03/22 Status: Ordered Vitamin D3 125 mcg (5000 intl units) oral capsule (5 sources) Start: 09-13-20 End: 09-07-20 Vitamin D3 125 mcg (5000 intl units) oral capsule Dose : 5,000 International_Unit = 1 cap(s), Oral, qDay, # 90 cap(s), 3 Refill(s), Pharmacy: [place] [id number], Afib Anticoagulant long-term use, 154, cm, 08/31/23 11:39:00 EST, Height, kg, 08/31/23 11:39:00 EST, Dosing Weight Start Date: 09/13/23 Stop Date: 09/07/24 Status: Ordered Start: 09-07-2022 End: 09-02-2023 Vitamin D3 125 mcg (5000 int l units) oral capsule Dose : 5,000 International_Unit = 1 cap(s), Oral, qDay, # 90 cap(s), 3 Refill(s), Pharmacy: [place] [id number], Afib Anticoagulant long-term use, 157, cm, 08/25/22 [...] three times daily as needed for pain [place] 325- 5 mg oral tablet Dose = 1 tab(s), Oral, TID, PRN for pain, # 21 tab(s), 0 Refill(s), Pharmacy: [place] [id number], Arthritis, 154, cm, 08/31/23 11:39:00 EST, Height, 81, kg, 08/31/23 11:39:00 EST, Dosing Weight Start Date: 09/21/23 Stop Date: 09/28/23 Status: Ordered Start: 2023 End: 09-08-2023 take 1 tablet by mouth three times daily as needed for pain [place] 325- 5 mg oral tablet Dose = 1 tab(s), Oral, TID, PRN for pain, # 90 tab(s), 0 Refill(s), Pharmacy: [place] [id number], Arthritis, 155, cm, 08/09/23 10:54:00 EST, Height, 83.4, kg, 08/09/23 10:37:00 EST, Dosing Weight Start Date: 08/09/23 Stop Date: 09/08/23 Status: Ordered Start: 04-13-2023 End: 05-13-2023 take 1 tablet by mouth three times daily as needed for pain [place] 325- 5 mg oral tablet Dose = 1 tab(s), Oral, TID, PRN for pain, # 90 tab(s), 0 Refill(s), Pharmacy: [place] [id number], Chronic low back pain, 155.5, cm, 02/11/23 10:54:00 EDT, Height, 90.4 Start Date: 04/13/23 Stop Date: 05/13/23 Status: Ordered Start: 02-11-2023 End: 04-12-2023 take 1 tablet by mouth three times daily as needed for pain [place] 325- 5 mg oral tablet Dose = 1 tab(s), Oral, TID, PRN for pain, # 90 tab(s), 0 Refill(s), Pharmacy: [facility] [id number], Arthritis, 155.5, cm, 02/11/23 10:54:00 EDT, Height, 90.4 Start Date: 03/13/23 Stop Date: 04/12/23 Status: Ordered Start: 12-17-2022 End: 01-16-2023 take 1 tablet by mouth twice daily as needed for pain [place] 325- 5 mg oral tablet Dose = 1 tab(s), Oral, BID, PRN for pain, # 60 tab(s), 0 Refill(s), Pharmacy: [place] [id number], Arthritis, 157, cm, 12/17/22 8:53:00 EDT, Height, 89.1, kg, 12/17/22 8:53:00 EDT, Dosing Weight Start Date: 12/17/22 Stop Date: 01/16/23 Status: Ordered Start: 05-19-2022 End: 11-10-2023 take 1-10 tablets by mouth every twelve hours as needed for pain Hydrocodone-Acetaminophen ([place]) 5-325 mg tablet Discontinued 1 {tbl} PO Q12H as needed for Pain 1-10 Or Fever May 19, 2022 10:37am November 10, 2023 3:41pm Start: 04-07-2022 End: 05-07-2022 take 1 tablet by mouth twice daily as needed for pain [place] 325- 5 mg oral tablet Dose = 1 tab(s), Oral, BID, PRN for pain, # 60 tab(s), 0 Refill(s), Pharmacy: [facility]/pharm[facility] #[id number], Arthritis, 157, cm, 04/07/22 10:54:00 EDT, Height, 86.3, kg, 04/07/22 10:54:00 EDT, Dosing Weight Start Date: 04/07/22 Stop Date: 05/07/22 Status: Ordered Start: 02-09-2022 End: 04-04-2022 take 1 tablet by mouth twice daily as needed for pain [place] 325- 5 mg oral tablet Dose = 1 tab(s), Oral, BID, PRN for pain, # 60 tab(s), 0 Refill(s), Pharmacy: [facility] #[id number], Arthritis, 157, cm, 03/05/22 14:26:00 EDT, Height, 85, kg, 03/05/22 14:26:00 EDT, Dosing Weight Start Date: 03/05/22 Stop Date: 04/04/22 Status: Ordered Start: 11-03-2021 End: 12-03-2021 take 1 tablet by mouth twice daily as needed for pain [place] 325- 5 mg oral tablet Dose = 1 tab(s), Oral, BID, PRN for pain, short term in absence of PCP, # 60 tab(s), 0 Refill(s), Pharmacy: [facility] #[id number], Arthritis, 157, cm, 10/22/21 10:32:00 EST, Height, 85, kg, 10/22/21 10:32:00 EST, Dosing Weight Start Date: 11/03/21 Stop Date: 12/03/21 Status: Ordered Start: 09-03-2021 End: 10-03-2021 take 1 tablet by mouth twice daily as needed for pain [place] 325- 5 mg oral tablet Dose = 1 tab(s), Oral, BID, PRN for pain, short term in absence of PCP, # 60 tab(s), 0 Refill(s), Pharmacy: [facility] #[id number], Arthritis, 157.6, cm, 09/03/21 11:20:00 EST, [...] albuterol 0.09 mg /actuat dry powder inhaler (19 sources) beta2-Adrenergic Agonist Start: 11-06-2018 End: 11-23-2019 [...] / ipratropium bromide 0.167 mg/ml inhalation solution (19 sources) Anticholinergic, beta2-Adrenergic Agonist Start: 01-08-2015 End: [...] tabs p.o. at bedtime Start: 03-29-2018 End: 03-27-2025 Start: 03-29-2018 End: 11-23-2019 take 1 tablet [...] QID, # 120 tab(s), 0 Refill(s), Pharmacy: [facility] #[id number], Anxiety, 157, cm, 03/05/22 14:26:00 EDT, [...] 13, # 60 tab(s), 11 Refill(s), Pharmacy: [facility] [id number], 155, cm, 04/08/23 11:20:00 EDT, Height, 90, kg, 04/08/23 11:20:00 EDT, Dosing Weight Start Date: 04/08/23 Stop Date: 04/02/24 Status: Ordered Start: 10-22-2021 End: 10-17-2022 Eliquis 5 mg oral tablet Dos e : 5 mg = 1 tab(s), Oral, BID, # 60 tab(s), 11 Refill(s), Pharmacy: [facility] #[id number], 157, cm, 10/22/21 10:32:00 EST, Height, 85, [...] bisacodyl 5 mg delayed release oral tablet (19 sources) Stimulant Laxative Start: 09-05-2017 End: 11-03-2017 [...] once daily. ciprofloxacin 500 mg oral tablet (18 sources) Quinolone Antimicrobial Start: 2023 End: 08-19-2023 [...] 01-22-2021 dicyclomine hydrochloride 10 mg oral capsule (10 sources) Anticholinergic Start: 04-26-2024 End: 07-17-2024 digoxin 0.125 mg oral tablet (20 sources) Cardiac Glycoside Start: 06-08-2017 End: 09-03-2017 docusate sodium 50 mg / mahi osides, skilled nursing 8.6 mg oral tablet (19 sources) Start: 09-05-2017 End: 11-03-2017 Start: 09-05-2017 [...] 2:45pm fluconazole 200 mg oral tabl et (19 sources) Azole Antifungal Start: 12-29-2018 End: 11-23-2019 [...] subcutaneousl y daily at bedtime. Insulin Glargine-Yfgn (19 sources) Start: 05-17-2023 End: 08-14-2023 Insulin Glargine-Yfgn [...] BEDTIME May 17, 2023 12:00am Insulin Lispro (19 sources) Insulin Analog Start: 01-08-2015 End: 01-30-2015 [...] (XYLOCAINE) liothyronine sodium 0.005 mg oral tablet (19 sources) l-Triiodothyronine Start: 06-29-2017 End: 07-27-2017 Start: 06-29-2017 End: 07-27-2017 take 25 ug by mouth once daily Liothyronine Discontinu ed 25 MCG PO DAILY@0600 30 June 29, 2017 12:00am July 27, 2017 [...] loperamide hydrochloride 2 m g oral capsule (19 sources) Opioid Agonist Start: 05-16-2023 End: 04-01-2024 melatonin 3 mg oral tablet (19 sources) Start: 07-27-2017 End: 09-03-2017 Start: 07-27-2017 [...] qDay, # 90 tab(s), 3 Refill(s), Pharmacy: [facility] #[id number], Hypertension, 157, cm, 07/22/21 15:01:00 EDT, [...] Comment on above: Take 1 capsule by [facility] twice daily. Nut.Tx.Gluc Intol,Lf,Soy-Fiber (Glucerna 1.2 Oswald) [...] 12-29-2018 End: 11-23-2019 Nystatin 100,000 unit/gram p kelley Discontinued 1 NMA TOPICAL THREE TIMES A DAY December 29, 2018 12:00am November 23, 2019 4:39pm Start: 12-29-2018 End: 11-23-2019 Nystatin Discontinued 1 APPL IC TOPICAL THREE TIMES A DAY December 29, 2018 12:00am November 23, 2019 4:39pm Start: 12-29-2018 End: 11-23-2019 Start: 07-27-2017 End: 09-03-2017 Start: 07-27-2017 End: 09-03-2017 Nystatin ([facility]) 1 APPLIC b tete Discontinued 1 NMA TOPICAL THREE TIMES A DAY July 27, 2017 12:00am September 03, 2017 3:13pm Please contact the information source for Protocol details. Start: 07-27-2017 End: 09-03-2017 Nystatin ([facility]) 1 APPLIC b ottdesiree Discontinued 1 APPLIC TOPICAL THREE TIMES A DAY July 27, 2017 12:00am September 03, 2017 3:13pm Start: 07-27-2017 End: 09-03-2017 omeprazole 40 mg delayed rel ease oral capsule (20 sources) Proton Pump Inhibitor Start: 04-19-2024 End: 07-17-2024 ondansetron 8 mg disintegrat ing oral tablet (16 sources) Serotonin-3 Receptor Antagonist Start: 08-15-2023 End: 04-01-2024 oxybutynin chloride 5 mg ora l tablet (19 sources) Cholinergic Muscarinic Antagonist Start: 06-29-2017 End: 09-03-2017 oxyCODONE hydrochloride 5 mg oral tablet (19 sources) Opioid Agonist Start: 06-08-2017 End: 06-29-2017 pantoprazole 40 mg delayed release oral tablet (20 sources) Proton Pump Inhibitor Start: 11-10-2023 End: 04-01-2024 Start: 11-10-2023 Pantoprazole A ctive MG PO November 10, 2023 1:00am Start: 06-16-2023 pantoprazole 4 0 mg oral enteric coated tablet Dose : 40 mg = 1 tab(s), Oral, qDay, # 30 tab(s), 0 Refill(s), Pharmacy: [facility]/pharmacy #[id number], Ascending cholangitis Elevated LFTs, 155, cm, 06/16/23 13:11:00 EDT, Height, kg, 06/16/23 12:56:00 EDT, Dosing Weight Start Date: 06/16/23 Status: Ordered Start: 01-08-2015 End: 09-03-2017 Comment on above: Take 40 mg by mouth twice daily. polyethylene glycol 3350 170 00 mg powder for oral solution (19 sources) Osmotic Laxative Start: 09-05-2017 End: 11-03-2017 microencapsulated potassium chloride 20 meq extended release oral tablet (20 sources) Start: 09-11-2017 End: 11-03-2017 Start: 06-08-2017 End: 06-29-2017 prednisoLONE acetate 10 mg/ml ophthalmic suspension (19 sources) Corticosteroid Start: 12-29-2020 End: 02-19-2021 promethazine [...] bedtime. sucralfate 1000 mg oral tabl et (10 sources) Aluminum Complex Start: 04-19-2024 End: 07-17-2024 [...] on above: Take 1 capsule by mo [facility] once daily. valsartan 320 mg oral tablet (20 sources) Angiotensin 2 Receptor Tawana Start: 09-06-2017 End: 11-03-2017 Start: 09-05-2017 End: 09-06-2017 vancomycin 125 mg oral capsule (19 sources) Glycopeptide Antibacterial Start: 01-08-2015 End: 01-30-2015 [...] qDay, # 90 cap(s), 3 Refill(s), Pharmacy: [facility]/pharmacy #[id number], Afib Anticoagulant long-term use, 158, cm, 02/10/21 13:15:00 EDT, Height, kg, 03/11/21 12:33:00 EDT, Dosing Weight Start Date: 03/11/21 Stop Date: 03/06/22 Status: Ordered warfarin sodium 5 mg oral tablet (20 sources) Vitamin K Antagonist Start: 05-19-2022 End: 04-20-2023 Start: 01-22-2022 warfarin 5 mg oral tablet Dose : 5 mg = 1 tab(s), Oral, qDay, # 30 tab(s), 5 Refill(s), Pharmacy: [facility]/pharmacy #[id number], 157, cm, 01/22/22 15:31:00 EDT, Height Start Date: 01/22/22 Status: Ordered Start: 09-16-2021 warfarin 2.5 m g oral tablet Dose : 2.5 mg = 1 tab(s), Oral, qDay, # 90 tab(s), 1 Refill(s), [id number], 157.6, cm, 09/03/21 11:20:00 EST, Height, kg, 09/03/21 11:20:00 EST, Dosing Weight Start Date: 09/16/21 Status: Ordered Start: 07-29-2021 warfarin 3 mg oral tablet See Instructions, 1 tab(s) Oral Mon, Tue, Tue, # 15 tab(s), 3 Refill(s), [id number], 157, cm, 07/22/21 15:01:00 EDT, Height, [...] DAYS A WEEK - SUN, , TUE, & SAT Take 3 mg by mouth [...] Date Documented Da te Episodic/Chronic Abdominal pain (20 sources) Abdominal pain; Translations: [Generalized abdominal pain] 08-31-2023 Episodic Anxiety disorders (20 sources) Anxiety; Translations: [Anxiety disorder, unspecified] Onset: 4 01-27-2021 Chronic Biliary tract disease (20 sources) Acute cholangitis ; Translations: [Other cholangitis] 05-17-2023 Chronic Cardiac dysrhythmias (20 sources) Atrial fibrillation; Translations: [Paroxysmal atrial fibrillation] Onset: 5 04-30-2020 Chronic Cardiac dysrhythmias (19 sources) Bradycardia; Translations: [Bradycardia, unspecified] 09-22-2017 Episodic Complications of surgical procedures or medical care (19 sources) Wound dehiscence; Translations: [Disruption of external operation (surgical) wound, not elsewhere classified, initial encounter] 09-23-2017 Episodic Congestive heart failure; nonhypertensive (15 sources) Congestive heart failure; Translations: [Heart failure, unspecified] Onset: 5 12-14-2023 Chronic Coronary atherosclerosis and other heart disease (20 sources) Coronary atherosclerosis; Translations: [Atherosclerotic heart disease of [place] coronary artery without angina pectoris] 12-29-2018 Chronic Comment on above: JAY to LAD, SVG to OM2 and sequetially to diagonal, SVG to PDA 06/01/17 Diabetes mellitus without complication (20 sources) Type [...] Onset: 5 05-14-2023 Episodic Gastritis and duodenitis (10 sources) Gastritis; Translations: [Gastritis, unspecified, without bleeding] 04-27-2024 Episodic Genitourinary symptoms and ill-defined conditions (20 sources) Urge incontinence of urine; Translations: [Urge incontinence] Onset: 7 Chronic Comment on above: has bladder stimulat or Genitourinary symptoms and ill-defined conditions (9 sources) Nocturia; Translations: [Nocturia] Episodic Headache; including migraine (10 sources) Headache 09-02-2017 Episodic Intestinal obstruction without hernia (10 sources) Fecal impaction; Translations: [Fecal impaction] 04-16-2024 [...] sources) Long-term current use of anticoagulant; Translations: [snf (current) use of anticoagulants] 04-30-2020 Episodic Other aftercare (20 sources) Immunosuppression; Translations: [Immunosuppression due to drug therapy] 05-13-2023 Episodic Other aftercare (2 sources) snf (current) use of anticoagulants; Translations: [Long-term (current) use of anticoagulants] Onset: 5 05-17-2023 Episodic Other aftercare (3 sources) Patient encounter status; Translations: [Encounter for therapeutic drug level monitoring] 12-14-2023 Episodic Other aftercare (10 sources) Long-term current use of diuretic; Translations: [Encounter for therapeutic drug level monitoring] 12-14-2023 Episodic Other circulatory disease (19 sources) Low blood pressure; Translations: [Hypotension, unspecified] 05-13-2023 Episodic Other circulatory disease (4 sources) Hypotension, unspecified; Translations: [Hypotension, unspecified] 05-17-2023 Episodic Other connective tissue disease (18 sources) Spasm; Translations: [Other muscle spasm] 05-17-2023 [...] of gastrin] Onset: 5 Chronic Other fractures (14 sources) Compression fracture of lumbar spine; Translations: [Wedge compression fracture of fourth lumbar vertebra, initial encounter for closed fracture] 11-20-2023 Episodic Other gastrointestinal disorders (10 sources) Constipation 11-21-2014 Episodic Other gastrointestinal disorders (10 sources) Diarrhea 12-29-2014 Episodic Other gastrointestinal disorders (1 source) Therapeutic opioid induced constipation 05-08-2024 Episodic Other gastrointestinal disorders (10 sources) Encopresis ; Translations: [Full incontinence of feces] 04-16-2024 Episodic Other gastrointestinal disorders (10 sources) Acute constipation; Translations: [Constipation, unspecified] 04-16-2024 Episodic Other gastrointestinal disorders (1 source) Diarrhea, unspecified; Translations: [Diarrhea, unspecified] Onset: 5 Episodic Other hereditary and degenerative nervous system conditions (18 sources) Restless legs; Translations: [Restless legs syndrome] [...] transaminase measurement] 05-13-2023 Episodic Other liver diseases (19 sources) Jaundice; Translations: [Unspecified jaundice] 05-13-2023 Episodic Other liver diseases (7 sources) Unspecified jaundice; Translations: [Jaundice, unspecified, not of ] 05-17-2023 Episodic Other lower respiratory disease (19 sources) Restrictive lung disease; Translations: [Other disorders of lung] 01-09-2018 Episodic Other lower respiratory disease (3 sources) Other disorders of lung; Translations: [Other diseases of lung, not elsewhere classified] 06-10-2023 Episodic Other lower respiratory disease (15 sources) Dyspnea; Translations: [Shortness of breath] 10-24-2023 Episodic Other lower respiratory disease (5 sources) Shortness of breath; Translations: [Shortness of breath] 10-24-2023 Episodic Other nervous system disorders (20 sources) Disorder of brain; Translations: [Encephalopathy, unspecified] 05-13-2023 Chronic Other nervous system disorders (7 sources) Encephalopathy, unspecified; Translations: [Encephalopathy, unspecified] 05-17-2023 Chronic Other nervous system disorders (9 sources) Chronic pain; Translations: [Other chronic pain] [...] conditions (not mental disorders or infectious disease) (19 sources) CT of chest abnormal; Translations: [Abnormal findings on diagnostic imaging of other specified body structures] 05-12-2023 Chronic Other screening for suspected conditions (not mental disorders or infectious disease) (20 sources) INR raised; Translations: [Cardiovascular stress test abnormal] 12-17-2022 Episodic Other upper respiratory disease (18 sources) Allergic rhinitis; Translations: [Allergic rhinitis, unspecified] [...] above: non compliant CPAP Residual codes; unclassified (19 sources) Obstructive sleep apnea syndrome; Translations: [Obstructive sleep apnea (adult) (pediatric)] 09-22-2017 Chronic Residual codes; unclassified (20 sources) Insomnia; Translations: [Insomnia, unspecified] 09-28-2019 Episodic Residual codes; unclassified (19 sources) Delirium; Translations: [Disorientation, unspecified] 05-12-2023 Episodic Residual codes; unclassified (12 sources) Edema of lower extremity; Translations: [Localized edema] 12-28-2023 Episodic Residual codes; unclassified (9 sources) Acute pain; Translations: [Pain, unspecified] 01-09-2025 Episodic Skin and subcutaneous tissue infections (6 sources) Cellulitis of upper limb; Translations: [Cellulitis of leg, excluding foot] 12-17-2022 Episodic Spondylosis; intervertebral disc disorders; other back problems (11 sources) Chronic low back pain; Translations: [Low back pain] 08-15-2020 Episodic Substance-related disorders (10 sources) Continuous opioid dependence; Translations: [Opioid dependence, uncomplicated] Onset: 2 07-24-2012 Chronic Substance-related disorders (19 sources) Benzodiazepine withdrawal; Translations: [Sedative, hypnotic or anxiolytic use, unspecified with withdrawal, unspecified] 05-12-2023 Episodic Superficial injury; contusion (14 sources) Hematoma of lower limb; Translations: [Contusion [...] [Vitamin deficiency, unspecified] Onset: 07-06-2024 Episodic Other upper respiratory disease (1 source) Nasal congestion; Translations: [Nasal congestion] Onset: 09-27-2024 Episodic Residual codes; unclassified (1 source) Insomnia, unspecified; Translations: [Insomnia, unspecified] Onset: 07-06-2024 Episodic Unclassified (1 source) Low back pain, unspecified; Translations: [Low back pain, unspecified] Onset: 05-23-2024 Results Test Name Value Interpretation Reference Range Facility Absolute lymphocyte countOrd ered By: Laverne Lea on 04-15-2025 Lymphocytes Auto (Unsp spec) [#/Vol] 3.44 10*3/uL 0.83-4.51 [facility] Anion gap in Serum or Plasma Ordered By: Laverne Lea on 04-15-2025 Anion gap [Moles/Vol] 10 mmol/L 5-15 [facility] Automated lymphocyte count a s percentage of total leukocytesOrdered By: Laverne Lea on 04-15-2025 Lymphocytes/100 WBC Auto (Unsp spec) 52.4 % High 19-41 [facility] BUN/creatinine ratioOrdered By: Laverne Lea on 04-15-2025 Urea nitrogen/Creatinine [Mass ratio] 16.5 mg/mg 10-20 [facility] Basophil percentageOrdered B y: Laverne Lea on 04-15-2025 Basophils/100 WBC (Bld) 0.8 % 0-1 [facility] Carbon dioxide, total [Moles /volume] in Central venous bloodOrdered By: Laverne Lea on 04-15-2025 CO2 [Moles/Vol] 20.4 mmol/L Low 21.0-32.0 [facility] Chloride assayOrdered By: Leonora beverly Lea on 04-15-2025 Chloride [Moles/Vol] 108 mmol/L 98-108 [facility] Eosinophil percentageOrdered By: Laverne Lea on 04-15-2025 Eosinophils/100 WBC (Bld) 2.4 % 0-5 [facility] Erythrocyte distribution wid th ratioOrdered By: Laverne Kirtesvin on 04-15-2025 Erythrocyte distribution width (RBC) [Ratio] 13.0 % 11.6-14.6 [facility] Erythrocyte distribution wid th standard deviationOrdered By: Lvaerne Lea on 04-15-2025 Erythrocyte distribution width (RBC) [Ratio] 44.3 fl High 35.1-43.9 [facility] Glomerular filtration rate ( GFR) estimation/1.73 sq m using serum, plasma, or whole bOrdered By: Laverne Lea on 04-15-2025 GFR/1.73 sq M.predicted among non-blacks MDRD (S/P/Bld) [Vol rate/Area] 70 mL/min/{1.73_m2} >60 [facility] Hematocrit Auto (Bld) [Volum e fraction]Ordered By: Laverne Moraleznetoayo on 04-15-2025 Hematocrit (Bld) [Volume fraction] 33.2 % Low 37-47 [facility] Hemoglobin measurementOrdere d By: Laverne Kirtnetoayo on 04-15-2025 Hemoglobin (Bld) [Mass/Vol] 11.0 g/dL Low 12.0-15.0 [facility] Immature granulocytes/100 WB C Auto (Bld)Ordered By: Laverne Lea on 04-15-2025 Immature granulocytes/100 WBC (Bld) 0.200 % 0.0-0.9 [facility] MCV (mean corpuscular volume ) determinationOrdered By: Leonorabeverly Moraleznetoayo on 04-15-2025 MCV (RBC) [Entitic vol] 92.7 fL 81-99 [facility] Mean corpuscular hemoglobin (MCH) determinationOrdered By: Leonorabeverly Moraleznetoayo on 04-15-2025 MCH (RBC) [Entitic mass] 30.7 pg 27.0-32.0 [facility] Monocyte percentageOrdered B y: Laverne Kirtesvin on 04-15-2025 Monocytes/100 WBC (Bld) 7.0 % 0-10 [facility] Neutrophil percentageOrdered By: Leonorabeverly Moraleznetoayo on 04-15-2025 Neutrophils/100 WBC (Bld) 37.2 % Low 47-70 [facility] Platelet countOrdered By: Leonora beverly Kirtnetoayo on 04-15-2025 Platelets (Bld) [#/Vol] 223 10*3/uL 150-450 [facility] Potassium measurement (mass/ volume)Ordered By: Laverne Lea on 04-15-2025 Potassium (Unsp spec) [Mass/Vol] 3.9 mmol/L 3.3-5.1 [facility] RBC Auto (Bld) [#/Vol]Ordere d By: Laverne Moraleznetoayo on 04-15-2025 RBC (Bld) [#/Vol] 3.58 10*6/uL Low 4.2-5.4 [facility] Serum creatinine measurement (mass/volume)Ordered By: Laverne Lea on 04-15-2025 Creatinine [Mass/Vol] 0.83 mg/dL 0.70-1.20 [facility] Serum glucose measurement (m ass/volume)Ordered By: Laverne Lea on 04-15-2025 Glucose [Mass/Vol] 166 mg/dL High 70-99 [facility] Serum or plasma calcium inga urement (mass/volume)Ordered By: Laverne Lea on 04-15-2025 Calcium [Mass/Vol] 9.2 mg/dL 7.6-11.0 [facility] Serum or plasma urea nitroge n measurement (mass/volume)Ordered By: Laverne Lea on 04-15-2025 Urea nitrogen [Mass/Vol] 14 mg/dL 4-19 [facility] Sodium levelOrdered By: Antonette ernesto Leonora on 04-15-2025 Sodium [Moles/Vol] 138 mmol/L 133-145 [facility] White blood cell (WBC) count Ordered By: Laverne Lea on 04-15-2025 WBC (Bld) [#/Vol] 6.6 10*3/uL 4.4-11.0 [facility] TSH DL <= 0.005 mIU/L QnOrde red By: Laverne Lea on 03-18-2025 TSH Qn 0.977 uIU/mL 0.300-4.200 [facility] Absolute lymphocyte countOrd ered By: Laverne Lea on 03-11-2025 Lymphocytes Auto (Unsp spec) [#/Vol] 3.97 10*3/uL 0.83-4.51 [facility] Anion gap in Serum or Plasma Ordered By: Laverne Lea on 03-11-2025 Anion gap [Moles/Vol] 10 mmol/L 5-15 [facility] Automated lymphocyte count a s percentage of total leukocytesOrdered By: Laverne Lea on 03-11-2025 Lymphocytes/100 WBC Auto (Unsp spec) 51.5 % High 19-41 [facility] BUN/creatinine ratioOrdered By: Laverne Lea on 03-11-2025 Urea nitrogen/Creatinine [Mass ratio] 21.8 mg/mg High 10-20 [facility] Basophil percentageOrdered B y: Laverne Lea on 03-11-2025 Basophils/100 WBC (Bld) 0.5 % 0-1 [facility] Carbon dioxide, total [Moles /volume] in Central venous bloodOrdered By: Laverne Lea on 03-11-2025 CO2 [Moles/Vol] 21.9 mmol/L 21.0-32.0 [facility] Chloride assayOrdered By: Leonora Lea on 03-11-2025 Chloride [Moles/Vol] 107 mmol/L 98-108 [facility] Eosinophil percentageOrdered By: Laverne Lea on 03-11-2025 Eosinophils/100 WBC (Bld) 3.0 % 0-5 [facility] Erythrocyte distribution wid th ratioOrdered By: Laverne Lea on 03-11-2025 Erythrocyte distribution width (RBC) [Ratio] 12.5 % 11.6-14.6 [facility] Erythrocyte distribution wid th standard deviationOrdered By: Laverne Lea on 03-11-2025 Erythrocyte distribution width (RBC) [Ratio] 42.0 fl 35.1-43.9 [facility] Glomerular filtration rate ( GFR) estimation/1.73 sq m using serum, plasma, or whole bOrdered By: Laverne Lea on 03-11-2025 GFR/1.73 sq M.predicted among non-blacks MDRD (S/P/Bld) [Vol rate/Area] 56 mL/min/{1.73_m2} Low >60 [facility] Hematocrit Auto (Bld) [Volum e fraction]Ordered By: Laverne Lea on 03-11-2025 Hematocrit (Bld) [Volume fraction] 33.7 % Low 37-47 [facility] Hemoglobin measurementOrdere d By: Laverne Lea on 03-11-2025 Hemoglobin (Bld) [Mass/Vol] 10.9 g/dL Low 12.0-15.0 [facility] Immature granulocytes/100 WB C Auto (Bld)Ordered By: Laverne eLa on 03-11-2025 Immature granulocytes/100 WBC (Bld) 0.300 % 0.0-0.9 [facility] MCV (mean corpuscular volume ) determinationOrdered By: Laverne Lea on 03-11-2025 MCV (RBC) [Entitic vol] 92.3 fL 81-99 [facility] Mean corpuscular hemoglobin (MCH) determinationOrdered By: Laverne Lea 03-11-2025 MCH (RBC) [Entitic mass] 29.9 pg 27.0-32.0 [facility] Monocyte percentageOrdered B y: Laverne Kirtesvin on 03-11-2025 Monocytes/100 WBC (Bld) 5.6 % 0-10 [facility] Neutrophil percentageOrdered By: Laverne Kirtnetoayo on 03-11-2025 Neutrophils/100 WBC (Bld) 39.1 % Low 47-70 [facility] Platelet countOrdered By: Leonora beverly Kirtnetoayo on 03-11-2025 Platelets (Bld) [#/Vol] 294 10*3/uL 150-450 [facility] Potassium measurement (mass/ volume)Ordered By: Laverne Lea on 03-11-2025 Potassium (Unsp spec) [Mass/Vol] 4.0 mmol/L 3.3-5.1 [facility] RBC Auto (Bld) [#/Vol]Ordere d By: Leonorabeverly Kirtnetoayo on 03-11-2025 RBC (Bld) [#/Vol] 3.65 10*6/uL Low 4.2-5.4 [facility] Serum creatinine measurement (mass/volume)Ordered By: Laverne Lea on 03-11-2025 Creatinine [Mass/Vol] 1.00 mg/dL 0.70-1.20 [facility] Serum glucose measurement (m ass/volume)Ordered By: Laverne Lea on 03-11-2025 Glucose [Mass/Vol] 131 mg/dL High 70-99 [facility] Serum or plasma calcium inga urement (mass/volume)Ordered By: Laverne Lea on 03-11-2025 Calcium [Mass/Vol] 9.6 mg/dL 7.6-11.0 [facility] Serum or plasma urea nitroge n measurement (mass/volume)Ordered By: Laverne Lea on 03-11-2025 Urea nitrogen [Mass/Vol] 22 mg/dL High 4-19 [facility] Sodium levelOrdered By: Antonette ernesto Leonora on 03-11-2025 Sodium [Moles/Vol] 140 mmol/L 133-145 [facility] White blood cell (WBC) count Ordered By: Laverne Lea on 03-11-2025 WBC (Bld) [#/Vol] 7.7 10*3/uL 4.4-11.0 [facility] Absolute lymphocyte countOrd ered By: Laverne Lea on 03-06-2025 Lymphocytes Auto (Unsp spec) [#/Vol] 1.67 10*3/uL 0.83-4.51 [facility] Anion gap in Serum or Plasma Ordered By: Antonettenaginate Moraleznetoayo on 03-06-2025 Anion gap [Moles/Vol] 11 mmol/L 5-15 [facility] Automated lymphocyte count a s percentage of total leukocytesOrdered By: Laverne Moraleznetoayo on 03-06-2025 Lymphocytes/100 WBC Auto (Unsp spec) 24.9 % 19-41 [facility] BUN/creatinine ratioOrdered By: fatouarlingtonnate Moraleznetoayo on 03-06-2025 Urea nitrogen/Creatinine [Mass ratio] 19.5 mg/mg 10-20 [facility] Basophil percentageOrdered B y: Vinhnate Moraleznetoayo on 03-06-2025 Basophils/100 WBC (Bld) 0.4 % 0-1 [facility] Carbon dioxide, total [Moles /volume] in Central venous bloodOrdered By: Leonorafatouernesto Kirtnetoayo on 03-06-2025 CO2 [Moles/Vol] 22.4 mmol/L 21.0-32.0 [facility] Chloride assayOrdered By: fatouernesto Moraleznetoayo on 03-06-2025 Chloride [Moles/Vol] 100 mmol/L 98-108 [facility] Eosinophil percentageOrdered By: katienate Kirtnetoayo on 03-06-2025 Eosinophils/100 WBC (Bld) 0.4 % 0-5 [facility] Erythrocyte distribution wid th ratioOrdered By: fatouernesto Kirtnetoayo on 03-06-2025 Erythrocyte distribution width (RBC) [Ratio] 12.4 % 11.6-14.6 [facility] Erythrocyte distribution wid th standard deviationOrdered By: fatouarlingtonnate Moraleznetoayo on 03-06-2025 Erythrocyte distribution width (RBC) [Ratio] 41.1 fl 35.1-43.9 [facility] Glomerular filtration rate ( GFR) estimation/1.73 sq m using serum, plasma, or whole bOrdered By: Laverne Lea on 03-06-2025 GFR/1.73 sq M.predicted among non-blacks MDRD (S/P/Bld) [Vol rate/Area] 60 mL/min/{1.73_m2} >60 [facility] Hematocrit Auto (Bld) [Volum e fraction]Ordered By: Laverne Lea on 03-06-2025 Hematocrit (Bld) [Volume fraction] 33.8 % Low 37-47 [facility] Hemoglobin measurementOrdere d By: Laverne Lea on 03-06-2025 Hemoglobin (Bld) [Mass/Vol] 11.4 g/dL Low 12.0-15.0 [facility] Immature granulocytes/100 WB C Auto (Bld)Ordered By: Laverne Lea on 03-06-2025 Immature granulocytes/100 WBC (Bld) 0.300 % 0.0-0.9 [facility] MCV (mean corpuscular volume ) determinationOrdered By: Laverne Lea on 03-06-2025 MCV (RBC) [Entitic vol] 90.1 fL 81-99 [facility] Mean corpuscular hemoglobin (MCH) determinationOrdered By: fatouarlingtonnate Lea on 03-06-2025 MCH (RBC) [Entitic mass] 30.4 pg 27.0-32.0 [facility] Monocyte percentageOrdered B y: Laverne Lea on 03-06-2025 Monocytes/100 WBC (Bld) 8.9 % 0-10 [facility] Neutrophil percentageOrdered By: beverly Lea on 03-06-2025 Neutrophils/100 WBC (Bld) 65.1 % 47-70 [facility] Platelet countOrdered By: Leonora Lea on 03-06-2025 Platelets (Bld) [#/Vol] 196 10*3/uL 150-450 [facility] Potassium measurement (mass/ volume)Ordered By: beverly Lea on 03-06-2025 Potassium (Unsp spec) [Mass/Vol] 4.2 mmol/L 3.3-5.1 [facility] RBC Auto (Bld) [#/Vol]Ordere d By: Laverne Lea on 03-06-2025 RBC (Bld) [#/Vol] 3.75 10*6/uL Low 4.2-5.4 [facility] Serum creatinine measurement (mass/volume)Ordered By: Laverne Lea on 03-06-2025 Creatinine [Mass/Vol] 0.95 mg/dL 0.70-1.20 [facility] Serum glucose measurement (m ass/volume)Ordered By: Laverne Lea on 03-06-2025 Glucose [Mass/Vol] 143 mg/dL High 70-99 [facility] Serum or plasma calcium inga urement (mass/volume)Ordered By: Laverne Lea on 03-06-2025 Calcium [Mass/Vol] 9.1 mg/dL 7.6-11.0 [facility] Serum or plasma urea nitroge n measurement (mass/volume)Ordered By: Laverne Lea on 03-06-2025 Urea nitrogen [Mass/Vol] 19 mg/dL 4-19 [facility] Sodium levelOrdered By: Antonette carvalhokyungayo Lea on 03-06-2025 Sodium [Moles/Vol] 133 mmol/L 133-145 [facility] White blood cell (WBC) count Ordered By: Laverne Lea on 03-06-2025 WBC (Bld) [#/Vol] 6.7 10*3/uL 4.4-11.0 [facility] Gram stainOrdered By: Garett Jones on 03-04-2025 Microscopic observation Gram stain Nom (Unsp spec) [facility] Absolute lymphocyte countOrd ered By: Laverne Lea on 02-11-2025 Lymphocytes Auto (Unsp spec) [#/Vol] 3.25 10*3/uL 0.83-4.51 [facility] Absolute neutrophil countOrd ered By: Laverne Lea on 02-11-2025 Neutrophils (Bld) [#/Vol] 3.2 10*3/uL 2.0-7.7 [facility] Anion gap in Serum or Plasma Ordered By: Laverne Lea on 02-11-2025 Anion gap [Moles/Vol] 11 mmol/L 5-15 [facility] Automated lymphocyte count a s percentage of total leukocytesOrdered By: Laverne Lea on 02-11-2025 Lymphocytes/100 WBC Auto (Unsp spec) 45.2 % High 19-41 [facility] BUN/creatinine ratioOrdered By: Laverne Lea on 02-11-2025 Urea nitrogen/Creatinine [Mass ratio] 20.8 mg/mg High 10-20 [facility] Basophil percentageOrdered B y: Laverne Lea on 02-11-2025 Basophils/100 WBC (Bld) 0.7 % 0-1 [facility] Carbon dioxide, total [Moles /volume] in Central venous bloodOrdered By: Laverne Lea on 02-11-2025 CO2 [Moles/Vol] 23.4 mmol/L 21.0-32.0 [facility] Chloride assayOrdered By: Leonora Lea on 02-11-2025 Chloride [Moles/Vol] 106 mmol/L 98-108 [facility] Eosinophil percentageOrdered By: Laverne Lea on 02-11-2025 Eosinophils/100 WBC (Bld) 1.9 % 0-5 [facility] Erythrocyte distribution wid th ratioOrdered By: Laverne Lea on 02-11-2025 Erythrocyte distribution width (RBC) [Ratio] 12.4 % 11.6-14.6 [facility] Erythrocyte distribution wid th standard deviationOrdered By: Laverne Lea on 02-11-2025 Erythrocyte distribution width (RBC) [Ratio] 42.6 fl 35.1-43.9 [facility] Glomerular filtration rate ( GFR) estimation/1.73 sq m using serum, plasma, or whole bOrdered By: Laverne Lea on 02-11-2025 GFR/1.73 sq M.predicted among non-blacks MDRD (S/P/Bld) [Vol rate/Area] 61 mL/min/{1.73_m2} >60 [facility] Comment on above: mL/min/1.73m2 CKD-EP I Creatinine Equation (2020) Hematocrit Auto (Bld) [Volum e fraction]Ordered By: Laveren Lea on 02-11-2025 Hematocrit (Bld) [Volume fraction] 33.6 % Low 37-47 [facility] Hemoglobin A1c percentageOrd ered By: Laverne Lea on 02-11-2025 HbA1c (Bld) [Mass fraction] 7.3 % High <5.7 [facility] Comment on above: Normal < 5.7 % Predi abetic 5.7 - 6.4 % Diabetic >or= 6.5 % Please note range changes. Hemoglobin measurementOrdere d By: Laverne Lea on 02-11-2025 Hemoglobin (Bld) [Mass/Vol] 11.0 g/dL Low 12.0-15.0 [facility] Immature granulocytes/100 WB C Auto (Bld)Ordered By: Laverne Lea on 02-11-2025 Immature granulocytes/100 WBC (Bld) 0.300 % 0.0-0.9 [facility] Comment on above: IG% - Immature Granu locytes (promyelocytes, myelocytes and metamyelocytes) > 1% indicates that a LEFT SHIFT is Present. MCV (mean corpuscular volume ) determinationOrdered By: Laverne Lea on 02-11-2025 MCV (RBC) [Entitic vol] 93.9 fL 81-99 [facility] Mean corpuscular hemoglobin (MCH) determinationOrdered By: Laverne Lea on 02-11-2025 MCH (RBC) [Entitic mass] 30.7 pg 27.0-32.0 [facility] Mean corpuscular hemoglobin concentration (MCHC) determinationOrdered By: Laverne Lea on 02-11-2025 MCHC (RBC) [Mass/Vol] 32.7 g/dL 32-36 [facility] Mean platelet volume determi nationOrdered By: Laverne Lea on 02-11-2025 Platelet mean volume (Bld) [Entitic vol] 10.1 fL 6.2-12.0 [facility] Monocyte percentageOrdered B y: Laverne Lea on 02-11-2025 Monocytes/100 WBC (Bld) 7.0 % 0-10 [facility] Neutrophil percentageOrdered By: Laverne Lea on 02-11-2025 Neutrophils/100 WBC (Bld) 44.9 % Low 47-70 [facility] Nucleated red blood cell per centageOrdered By: Laverne Lea on 02-11-2025 Nucleated RBC/100 WBC (Bld) [Ratio] 0 % 0-5 [facility] Platelet countOrdered By: Leonora Lea on 02-11-2025 Platelets (Bld) [#/Vol] 225 10*3/uL 150-450 [facility] Potassium measurement (mass/ volume)Ordered By: Laverne Lea on 02-11-2025 Potassium (Unsp spec) [Mass/Vol] 3.8 mmol/L 3.3-5.1 [facility] RBC Auto (Bld) [#/Vol]Ordere d By: Laverne Lea on 02-11-2025 RBC (Bld) [#/Vol] 3.58 10*6/uL Low 4.2-5.4 [facility] Serum creatinine measurement (mass/volume)Ordered By: Laverne Lea on 02-11-2025 Creatinine [Mass/Vol] 0.93 mg/dL 0.70-1.20 [facility] Serum glucose measurement (m ass/volume)Ordered By: Laverne Lea on 02-11-2025 Glucose [Mass/Vol] 191 mg/dL High 70-99 [facility] Serum or plasma calcium inga urement (mass/volume)Ordered By: Laverne Lea on 02-11-2025 Calcium [Mass/Vol] 9.4 mg/dL 7.6-11.0 [facility] Serum or plasma urea nitroge n measurement (mass/volume)Ordered By: Laverne Lea on 02-11-2025 Urea nitrogen [Mass/Vol] 19 mg/dL 4-19 [facility] Sodium levelOrdered By: Antonette Lea on 02-11-2025 Sodium [Moles/Vol] 140 mmol/L 133-145 [facility] White blood cell (WBC) count Ordered By: Laverne Lea on 02-11-2025 WBC (Bld) [#/Vol] 7.2 10*3/uL 4.4-11.0 [facility] TSH DL <= 0.005 mIU/L QnOrde red By: Laverne Lea on 02-04-2025 TSH Qn 1.570 uIU/mL 0.300-4.200 [facility] Absolute lymphocyte countOrd ered By: Laverne Lea on 01-14-2025 Lymphocytes Auto (Unsp spec) [#/Vol] 3.03 10*3/uL 0.83-4.51 [facility] Absolute neutrophil countOrd ered By: Laverne Lea on 01-14-2025 Neutrophils (Bld) [#/Vol] 3.7 10*3/uL 2.0-7.7 [facility] Anion gap in Serum or Plasma Ordered By: Laverne Lea on 01-14-2025 Anion gap [Moles/Vol] 11 mmol/L 5-15 [facility] Automated lymphocyte count a s percentage of total leukocytesOrdered By: Laverne Lea on 01-14-2025 Lymphocytes/100 WBC Auto (Unsp spec) 40.3 % 19-41 [facility] BUN/creatinine ratioOrdered By: Laverne Lea on 01-14-2025 Urea nitrogen/Creatinine [Mass ratio] 20.4 mg/mg High 10-20 [facility] Basophil percentageOrdered B y: Laverne Lea on 01-14-2025 Basophils/100 WBC (Bld) 0.4 % 0-1 [facility] Carbon dioxide, total [Moles /volume] in Central venous bloodOrdered By: Laverne Lea on 01-14-2025 CO2 [Moles/Vol] 23.1 mmol/L 21.0-32.0 [facility] Chloride assayOrdered By: Leonora Lea on 01-14-2025 Chloride [Moles/Vol] 104 mmol/L 98-108 [facility] Eosinophil percentageOrdered By: Laverne Lea on 01-14-2025 Eosinophils/100 WBC (Bld) 1.3 % 0-5 [facility] Erythrocyte distribution wid th ratioOrdered By: Laverne Lea on 01-14-2025 Erythrocyte distribution width (RBC) [Ratio] 12.0 % 11.6-14.6 [facility] Erythrocyte distribution wid th standard deviationOrdered By: Laveren Lea on 01-14-2025 Erythrocyte distribution width (RBC) [Ratio] 41.0 fl 35.1-43.9 [facility] Glomerular filtration rate ( GFR) estimation/1.73 sq m using serum, plasma, or whole bOrdered By: Antonettearlingtonnate Lea on 01-14-2025 GFR/1.73 sq M.predicted among non-blacks MDRD (S/P/Bld) [Vol rate/Area] 66 mL/min/{1.73_m2} >60 [facility] Comment on above: mL/min/1.73m2 CKD-EP I Creatinine Equation (2020) Hematocrit Auto (Bld) [Volum e fraction]Ordered By: Laverne Lea on 01-14-2025 Hematocrit (Bld) [Volume fraction] 31.3 % Low 37-47 [facility] Hemoglobin measurementOrdere d By: Laverne Lea 01-14-2025 Hemoglobin (Bld) [Mass/Vol] 10.5 g/dL Low 12.0-15.0 [facility] Immature granulocytes/100 WB C Auto (Bld)Ordered By: Laverne Lea 01-14-2025 Immature granulocytes/100 WBC (Bld) 0.100 % 0.0-0.9 [facility] Comment on above: IG% - Immature Granu locytes (promyelocytes, myelocytes and metamyelocytes) > 1% indicates that a LEFT SHIFT is Present. MCV (mean corpuscular volume ) determinationOrdered By: Laverne Lea on 01-14-2025 MCV (RBC) [Entitic vol] 94.0 fL 81-99 [facility] Mean corpuscular hemoglobin (MCH) determinationOrdered By: fatouarlingtonnate Lea 01-14-2025 MCH (RBC) [Entitic mass] 31.5 pg 27.0-32.0 [facility] Mean corpuscular hemoglobin concentration (MCHC) determinationOrdered By: Laverne Lea on 01-14-2025 MCHC (RBC) [Mass/Vol] 33.5 g/dL 32-36 [facility] Mean platelet volume determi nationOrdered By: Laverne Lea on 01-14-2025 Platelet mean volume (Bld) [Entitic vol] 10.3 fL 6.2-12.0 [facility] Monocyte percentageOrdered B y: Laverne Lea on 01-14-2025 Monocytes/100 WBC (Bld) 8.4 % 0-10 [facility] Neutrophil percentageOrdered By: Laverne Lea on 01-14-2025 Neutrophils/100 WBC (Bld) 49.5 % 47-70 [facility] Nucleated red blood cell per centageOrdered By: Laverne Lea on 01-14-2025 Nucleated RBC/100 WBC (Bld) [Ratio] 0 % 0-5 [facility] Platelet countOrdered By: Leonora Lea on 01-14-2025 Platelets (Bld) [#/Vol] 219 10*3/uL 150-450 [facility] Potassium measurement (mass/ volume)Ordered By: Laverne Lea on 01-14-2025 Potassium (Unsp spec) [Mass/Vol] 4.2 mmol/L 3.3-5.1 [facility] RBC Auto (Bld) [#/Vol]Ordere d By: Laverne Lea on 01-14-2025 RBC (Bld) [#/Vol] 3.33 10*6/uL Low 4.2-5.4 [facility] Serum creatinine measurement (mass/volume)Ordered By: Laverne Lea on 01-14-2025 Creatinine [Mass/Vol] 0.88 mg/dL 0.70-1.20 [facility] Serum glucose measurement (m ass/volume)Ordered By: Laverne Lea on 01-14-2025 Glucose [Mass/Vol] 148 mg/dL High 70-99 [facility] Serum or plasma calcium inga urement (mass/volume)Ordered By: Laverne Lea on 01-14-2025 Calcium [Mass/Vol] 9.5 mg/dL 7.6-11.0 [facility] Serum or plasma urea nitroge n measurement (mass/volume)Ordered By: Laverne Lea on 01-14-2025 Urea nitrogen [Mass/Vol] 18 mg/dL 4-19 [facility] Sodium levelOrdered By: Antonette Lea on 01-14-2025 Sodium [Moles/Vol] 138 mmol/L 133-145 [facility] White blood cell (WBC) count Ordered By: beverly Lea on 01-14-2025 WBC (Bld) [#/Vol] 7.5 10*3/uL 4.4-11.0 [facility] Absolute lymphocyte countOrd ered By: Laverne Lea on 01-10-2025 Lymphocytes Auto (Unsp spec) [#/Vol] 3.42 10*3/uL 0.83-4.51 [facility] Absolute neutrophil countOrd ered By: Laverne Lea on 01-10-2025 Neutrophils (Bld) [#/Vol] 2.7 10*3/uL 2.0-7.7 [facility] Automated lymphocyte count a s percentage of total leukocytesOrdered By: Laverne Lea on 01-10-2025 Lymphocytes/100 WBC Auto (Unsp spec) 50.3 % High 19-41 [facility] Basophil percentageOrdered B y: Laverne Lea on 01-10-2025 Basophils/100 WBC (Bld) 0.6 % 0-1 [facility] Eosinophil percentageOrdered By: beverly Lea on 01-10-2025 Eosinophils/100 WBC (Bld) 2.1 % 0-5 [facility] Erythrocyte distribution wid th ratioOrdered By: Laverne Lea on 01-10-2025 Erythrocyte distribution width (RBC) [Ratio] 11.9 % 11.6-14.6 [facility] Erythrocyte distribution wid th standard deviationOrdered By: Laverne Lea on 01-10-2025 Erythrocyte distribution width (RBC) [Ratio] 40.2 fl 35.1-43.9 [facility] Hematocrit Auto (Bld) [Volum e fraction]Ordered By: Laverne Lea on 01-10-2025 Hematocrit (Bld) [Volume fraction] 32.1 % Low 37-47 [facility] Hemoglobin measurementOrdere d By: Laverne Lea on 01-10-2025 Hemoglobin (Bld) [Mass/Vol] 10.8 g/dL Low 12.0-15.0 [facility] Immature granulocytes/100 WB C Auto (Bld)Ordered By: Laverne Lea on 01-10-2025 Immature granulocytes/100 WBC (Bld) 0.000 % 0.0-0.9 [facility] Comment on above: IG% - Immature Granu locytes (promyelocytes, myelocytes and metamyelocytes) > 1% indicates that a LEFT SHIFT is Present. MCV (mean corpuscular volume ) determinationOrdered By: Laverne Lea on 01-10-2025 MCV (RBC) [Entitic vol] 93.0 fL 81-99 [facility] Mean corpuscular hemoglobin (MCH) determinationOrdered By: fatouarlingtonnate Lea on 01-10-2025 MCH (RBC) [Entitic mass] 31.3 pg 27.0-32.0 [facility] Mean corpuscular hemoglobin concentration (MCHC) determinationOrdered By: Laverne Lea on 01-10-2025 MCHC (RBC) [Mass/Vol] 33.6 g/dL 32-36 [facility] Mean platelet volume determi nationOrdered By: Laverne Lea on 01-10-2025 Platelet mean volume (Bld) [Entitic vol] 10.1 fL 6.2-12.0 [facility] Monocyte percentageOrdered B y: Laverne Lea on 01-10-2025 Monocytes/100 WBC (Bld) 6.9 % 0-10 [facility] Neutrophil percentageOrdered By: Laverne Lea on 01-10-2025 Neutrophils/100 WBC (Bld) 40.1 % Low 47-70 [facility] Nucleated red blood cell per centageOrdered By: Laverne Lea on 01-10-2025 Nucleated RBC/100 WBC (Bld) [Ratio] 0 % 0-5 [facility] Platelet countOrdered By: Leonora Lea on 01-10-2025 Platelets (Bld) [#/Vol] 223 10*3/uL 150-450 [facility] RBC Auto (Bld) [#/Vol]Ordere d By: Laverne Lea on 01-10-2025 RBC (Bld) [#/Vol] 3.45 10*6/uL Low 4.2-5.4 [facility] White blood cell (WBC) count Ordered By: Laevrne Lea on 01-10-2025 WBC (Bld) [#/Vol] 6.8 10*3/uL 4.4-11.0 [facility] TSH DL <= 0.005 mIU/L QnOrde red By: Laverne Lea on 12-24-2024 Thyroid Stimulating Hormone (TSH) 2.070 uIU/mL 0.300-4.200 [facility] TSH Qn 2.070 uIU/mL 0.300-4.200 [facility] Absolute lymphocyte countOrd ered By: Laverne Lea on 12-10-2024 Lymphocytes Auto (Unsp spec) [#/Vol] 3.05 10*3/uL 0.83-4.51 [facility] Absolute neutrophil countOrd ered By: Laverne Lea on 12-10-2024 Neutrophils (Bld) [#/Vol] 2.7 10*3/uL 2.0-7.7 [facility] Anion gap in Serum or Plasma Ordered By: Laverne Lea on 12-10-2024 Anion gap [Moles/Vol] 11 mmol/L 5-15 [facility] Automated lymphocyte count a s percentage of total leukocytesOrdered By: Laverne Lea on 12-10-2024 Lymphocytes/100 WBC Auto (Unsp spec) 48.1 % High 19-41 [facility] BUN/creatinine ratioOrdered By: Laverne Lea on 12-10-2024 Urea nitrogen/Creatinine [Mass ratio] 21.8 mg/mg High 10-20 [facility] Basophil percentageOrdered B y: Laverne Lea on 12-10-2024 Basophils/100 WBC (Bld) 0.6 % 0-1 [facility] Carbon dioxide, total [Moles /volume] in Central venous bloodOrdered By: Lvaerne Lea on 12-10-2024 CO2 [Moles/Vol] 22.1 mmol/L 21.0-32.0 [facility] Chloride assayOrdered By: Leonora Lea on 12-10-2024 Chloride [Moles/Vol] 107 mmol/L 98-108 [facility] Eosinophil percentageOrdered By: Laverne Lea on 12-10-2024 Eosinophils/100 WBC (Bld) 1.3 % 0-5 [facility] Erythrocyte distribution wid th (RBC) [Ratio]Ordered By: Antonettearlingtonnate Lea on 12-10-2024 Erythrocyte distribution width (RBC) [Entitic vol] 39.8 fL 35.1-43.9 [facility] Erythrocyte distribution wid th ratioOrdered By: Laverne Lea on 12-10-2024 Erythrocyte distribution width (RBC) [Ratio] 11.8 % 11.6-14.6 [facility] Erythrocyte distribution wid th standard deviationOrdered By: beverly Lea on 12-10-2024 Erythrocyte distribution width (RBC) [Ratio] 39.8 fl 35.1-43.9 [facility] GFR/1.73 sq M.predicted dwain g non-blacks MDRD (S/P/Bld) [Vol rate/Area]Ordered By: Laverne Lea on 12-10-2024 Estimated GFR (MDRD) Non-Af Amer 64 >60 [facility] Comment on above: mL/min/1.73m2 CKD-EP I Creatinine Equation (2020) Glomerular filtration rate ( GFR) estimation/1.73 sq m using serum, plasma, or whole bOrdered By: Laverne Lea on 12-10-2024 GFR/1.73 sq M.predicted among non-blacks MDRD (S/P/Bld) [Vol rate/Area] 64 mL/min/{1.73_m2} >60 [facility] Comment on above: mL/min/1.73m2 CKD-EP I Creatinine Equation (2020) Hematocrit Auto (Bld) [Volum e fraction]Ordered By: Lvaerne Lea on 12-10-2024 Hematocrit (Bld) [Volume fraction] 33.6 % Low 37-47 [facility] Hemoglobin measurementOrdere d By: Laverne Lea on 12-10-2024 Hemoglobin (Bld) [Mass/Vol] 11.4 g/dL Low 12.0-15.0 [facility] Immature granulocytes/100 WB C Auto (Bld)Ordered By: Laverne Lea on 12-10-2024 Immature granulocytes/100 WBC (Bld) 0.200 % 0.0-0.9 [facility] Comment on above: IG% - Immature Granu locytes (promyelocytes, myelocytes and metamyelocytes) > 1% indicates that a LEFT SHIFT is Present. Lymphocytes Auto (Unsp spec) [#/Vol]Ordered By: Laverne Lea on 12-10-2024 Lymphocytes (Bld) [#/Vol] 3.05 10*3/uL 0.83-4.51 [facility] Lymphocytes/100 WBC Auto (Un sp spec)Ordered By: Laverne Lea on 12-10-2024 Lymphocytes/100 WBC (Bld) 48.1 % High 19-41 [facility] MCV (mean corpuscular volume ) determinationOrdered By: Laverne Lea on 12-10-2024 MCV (RBC) [Entitic vol] 92.6 fL 81-99 [facility] Mean corpuscular hemoglobin (MCH) determinationOrdered By: Laverne Lea on 12-10-2024 MCH (RBC) [Entitic mass] 31.4 pg 27.0-32.0 [facility] Mean corpuscular hemoglobin concentration (MCHC) determinationOrdered By: Laverne Lea on 12-10-2024 MCHC (RBC) [Mass/Vol] 33.9 g/dL 32-36 [facility] Mean platelet volume determi nationOrdered By: Laverne Lea on 12-10-2024 Platelet mean volume (Bld) [Entitic vol] 9.7 fL 6.2-12.0 [facility] Monocyte percentageOrdered B y: Laverne Lea on 12-10-2024 Monocytes/100 WBC (Bld) 7.1 % 0-10 [facility] Neutrophil percentageOrdered By: Laverne Lea on 12-10-2024 Neutrophils/100 WBC (Bld) 42.7 % Low 47-70 [facility] Nucleated red blood cell per centageOrdered By: Laverne Lea on 12-10-2024 Nucleated RBC/100 WBC (Bld) [Ratio] 0 % 0-5 [facility] Platelet countOrdered By: Leonora Lea on 12-10-2024 Platelets (Bld) [#/Vol] 220 10*3/uL 150-450 [facility] Potassium (Unsp spec) [Mass/ Vol]Ordered By: Laverne Kirtnetoayo on 12-10-2024 Potassium [Moles/Vol] 4.1 mmol/L 3.3-5.1 [facility] Potassium measurement (mass/ volume)Ordered By: Leonorafatouernesto Kirtnetoayo on 12-10-2024 Potassium (Unsp spec) [Mass/Vol] 4.1 mmol/L 3.3-5.1 [facility] RBC Auto (Bld) [#/Vol]Ordere d By: Laverne Lea on 12-10-2024 RBC (Bld) [#/Vol] 3.63 10*6/uL Low 4.2-5.4 [facility] Serum creatinine measurement (mass/volume)Ordered By: Leonorafatounaginate Moraleznetoayo on 12-10-2024 Creatinine [Mass/Vol] 0.90 mg/dL 0.70-1.20 [facility] Serum glucose measurement (m ass/volume)Ordered By: Leonorafatouernesto Kirtnetoayo on 12-10-2024 Glucose [Mass/Vol] 86 mg/dL 70-99 [facility] Serum or plasma calcium inga urement (mass/volume)Ordered By: Leonorafatounaginate Moraleznetoayo on 12-10-2024 Calcium [Mass/Vol] 9.5 mg/dL 7.6-11.0 [facility] Serum or plasma urea nitroge n measurement (mass/volume)Ordered By: Laverne Moraleznetoayo on 12-10-2024 Urea nitrogen [Mass/Vol] 20 mg/dL High 4-19 [facility] Sodium levelOrdered By: Antonette orozco Kirtnetoayo on 12-10-2024 Sodium [Moles/Vol] 140 mmol/L 133-145 [facility] White blood cell (WBC) count Ordered By: Antonettenaginate Moraleznetoayo on 12-10-2024 WBC (Bld) [#/Vol] 6.3 10*3/uL 4.4-11.0 [facility] Absolute lymphocyte countOrd ered By: Leonorafatouernesto Kirtnetoayo on 11-12-2024 Lymphocytes Auto (Unsp spec) [#/Vol] 5.06 10*3/uL High 0.83-4.51 [facility] Absolute neutrophil countOrd ered By: Antonettenaginate Moraleznetoayo on 11-12-2024 Neutrophils (Bld) [#/Vol] 3.8 10*3/uL 2.0-7.7 [facility] Automated lymphocyte count a s percentage of total leukocytesOrdered By: Laverne Moralezentoayo on 11-12-2024 Lymphocytes/100 WBC Auto (Unsp spec) 52.6 % High 19-41 [facility] Basophil percentageOrdered B y: Laverne Moraleznetoayo on 11-12-2024 Basophils/100 WBC (Bld) 0.5 % 0-1 [facility] Blood urea nitrogen (BUN)/cr eatinine ratioOrdered By: Laverne Moraleznetoayo on 11-12-2024 Urea nitrogen/Creatinine [Mass ratio] 15.0 mg/mg 10-20 [facility] Carbon dioxide measurementOr dered By: Laverne Moraleznetoayo on 11-12-2024 CO2 [Moles/Vol] 25.0 mmol/L 21.0-32.0 [facility] Chloride measurementOrdered By: Laverne Lea on 11-12-2024 Chloride [Moles/Vol] 108 mmol/L High 98-107 [facility] Eosinophil percentageOrdered By: Laverne Moraleznteoayo on 11-12-2024 Eosinophils/100 WBC (Bld) 1.4 % 0-5 [facility] Erythrocyte distribution wid th (RBC) [Ratio]Ordered By: Laverne Lea on 11-12-2024 Erythrocyte distribution width (RBC) [Entitic vol] 42.1 fL 35.1-43.9 [facility] Erythrocyte distribution wid th ratioOrdered By: fatouarlingtonnate Lea on 11-12-2024 Erythrocyte distribution width (RBC) [Ratio] 12.1 % 11.6-14.6 [facility] Erythrocyte distribution wid th standard deviationOrdered By: beverly Lea on 11-12-2024 Erythrocyte distribution width (RBC) [Ratio] 42.1 fl 35.1-43.9 [facility] Estimated glomerular filtrat ion rate (GFR) AmericanOrdered By: Laverne Lea on 11-12-2024 Estimated GFR (MDRD) Amer 68 mL/min >60 [facility] Comment on above: GFR Calc Glomerular filtration rate ( GFR) estimationOrdered By: Laverne Lea on 11-12-2024 Estimated GFR (MDRD) Non-Af Amer 56 mL/min Low >60 [facility] Comment on above: Non- GFR Calc GFR/1.73 sq M.predicted among non-blacks MDRD (S/P/Bld) [Vol rate/Area] 56 mL/min/{1.73_m2} Low >60 [facility] Comment on above: Non- GFR Calc Glucose measurementOrdered B y: Laverne Lea on 11-12-2024 Glucose [Mass/Vol] 130 mg/dL High 74-106 [facility] Comment on above: Fasting Glucose resu lt greater than or equal to 126 mg/dL suggests DIABETES MELLITUS per A.D.A. criteria. Hematocrit Auto (Bld) [Volum e fraction]Ordered By: Laverne Lea on 11-12-2024 Hematocrit (Bld) [Volume fraction] 38.9 % 37-47 [facility] Hemoglobin A1c percentageOrd ered By: Laverne Lea on 11-12-2024 HbA1c (Bld) [Mass fraction] 7.2 % High 3.8-5.6 [facility] Comment on above: Normal < 5.7 % Predi abetic 5.7 - 6.4 % Diabetic >or= 6.5 % Please note range changes. Hemoglobin measurementOrdere d By: Laverne Lea on 11-12-2024 Hemoglobin (Bld) [Mass/Vol] 12.7 g/dL 12.0-15.0 [facility] Immature granulocytes/100 WB C Auto (Bld)Ordered By: Laverne Lea on 11-12-2024 Immature granulocytes/100 WBC (Bld) 0.200 % 0.0-0.9 [facility] Comment on above: IG% - Immature Granu locytes (promyelocytes, myelocytes and metamyelocytes) > 1% indicates that a LEFT SHIFT is Present. Lymphocytes Auto (Unsp spec) [#/Vol]Ordered By: Laverne Lea on 11-12-2024 Lymphocytes (Bld) [#/Vol] 5.06 10*3/uL High 0.83-4.51 [facility] Lymphocytes/100 WBC Auto (Un sp spec)Ordered By: Laverne Lea on 11-12-2024 Lymphocytes/100 WBC (Bld) 52.6 % High 19-41 [facility] MCV (mean corpuscular volume ) determinationOrdered By: Laverne Lea on 11-12-2024 MCV (RBC) [Entitic vol] 94.2 fL 81-99 [facility] Mean corpuscular hemoglobin (MCH) determinationOrdered By: Laverne Lea on 11-12-2024 MCH (RBC) [Entitic mass] 30.8 pg 27.0-32.0 [facility] Mean corpuscular hemoglobin concentration (MCHC) determinationOrdered By: beverly Lea on 11-12-2024 MCHC (RBC) [Mass/Vol] 32.6 g/dL 32-36 [facility] Mean platelet volume determi nationOrdered By: Laverne Lea on 11-12-2024 Platelet mean volume (Bld) [Entitic vol] 9.7 fL 6.2-12.0 [facility] Monocyte percentageOrdered B y: Laverne Lea on 11-12-2024 Monocytes/100 WBC (Bld) 5.7 % 0-10 [facility] Neutrophil percentageOrdered By: Laverne Lea on 11-12-2024 Neutrophils/100 WBC (Bld) 39.6 % Low 47-70 [facility] Nucleated red blood cell per centageOrdered By: Laverne Lea on 11-12-2024 Nucleated RBC/100 WBC (Bld) [Ratio] 0 % 0-5 [facility] Platelet countOrdered By: Leonora Lea on 11-12-2024 Platelets (Bld) [#/Vol] 302 10*3/uL 150-450 [facility] Potassium measurementOrdered By: Laverne Lea on 11-12-2024 Potassium [Moles/Vol] 4.2 mmol/L 3.5-5.1 [facility] RBC Auto (Bld) [#/Vol]Ordere d By: Laverne Lea on 11-12-2024 RBC (Bld) [#/Vol] 4.13 10*6/uL Low 4.2-5.4 [facility] Reactive lymphocyte countOrd ered By: Laverne Lea on 11-12-2024 Reactive Lymphocytes 1+ [facility] Serum anion gap measurementO rdered By: Laverne Lea on 11-12-2024 Anion gap [Moles/Vol] 7 mmol/L 5-15 [facility] Serum or plasma calcium inga urement (mass/volume)Ordered By: Laverne Lea on 11-12-2024 Calcium [Mass/Vol] 9.7 mg/dL 8.5-10.1 [facility] Serum or plasma creatinine m easurement [...] on 11-12-2024 TSH Qn 3.410 uIU/mL 0.358-3.740 [facility] Serum or plasma urea nitroge n measurement (mass/volume)Ordered By: Laverne Lea on 11-12-2024 Urea nitrogen [Mass/Vol] 15 mg/dL 7-18 [facility] Sodium levelOrdered By: Antonette Lea on 11-12-2024 Sodium [Moles/Vol] 140 mmol/L 136-145 [facility] TSH QnOrdered By: Laverne Lea on 11-12-2024 Thyroid Stimulating Hormone (TSH) 3.410 uIU/mL 0.358-3.740 [facility] White blood cell (WBC) count Ordered By: Laverne Lea on 11-12-2024 WBC (Bld) [#/Vol] 9.6 10*3/uL 4.4-11.0 [facility] Absolute neutrophil countOrd ered By: Laverne Lea on 10-15-2024 Neutrophils (Bld) [#/Vol] 2.4 10*3/uL 2.0-7.7 [facility] Basophil percentageOrdered B y: Laverne Lea on 10-15-2024 Basophils/100 WBC (Bld) 0.6 % 0-1 [facility] Blood urea nitrogen (BUN)/cr eatinine ratioOrdered By: Laverne Lea on 10-15-2024 Urea nitrogen/Creatinine [Mass ratio] 15.0 mg/mg 10-20 [facility] Carbon dioxide measurementOr dered By: Laverne Lea on 10-15-2024 CO2 [Moles/Vol] 26.0 mmol/L 21.0-32.0 [facility] Chloride measurementOrdered By: Laverne Lea on 10-15-2024 Chloride [Moles/Vol] 109 mmol/L High 98-107 [facility] Eosinophil percentageOrdered By: Laverne Lea on 10-15-2024 Eosinophils/100 WBC (Bld) 1.9 % 0-5 [facility] Erythrocyte distribution wid th (RBC) [Ratio]Ordered By: Laverne Lea on 10-15-2024 Erythrocyte distribution width (RBC) [Entitic vol] 43.3 fL 35.1-43.9 [facility] Erythrocyte distribution wid th ratioOrdered By: Laverne Lea on 10-15-2024 Erythrocyte distribution width (RBC) [Ratio] 12.7 % 11.6-14.6 [facility] Estimated glomerular filtrat ion rate (GFR) AmericanOrdered By: Laverne Lea on 10-15-2024 Estimated GFR (MDRD) Amer 74 mL/min >60 [facility] Comment on above: GFR Calc Glomerular filtration rate ( GFR) estimationOrdered By: Laverne Lea on 10-15-2024 Estimated GFR (MDRD) Non-Af Amer 61 mL/min >60 [facility] Comment on above: Non- GFR Calc Glucose measurementOrdered B y: Laverne Lea on 10-15-2024 Glucose [Mass/Vol] 217 mg/dL High 74-106 [facility] Comment on above: Glucose result great er than or equal to 200 mg/dLsuggests DIABETES MELLITUS per A.D.A. criteria. Hematocrit Auto (Bld) [Volum e fraction]Ordered By: Laverne Lea on 10-15-2024 Hematocrit (Bld) [Volume fraction] 32.8 % Low 37-47 [facility] Hemoglobin measurementOrdere d By: Laverne Lea on 10-15-2024 Hemoglobin (Bld) [Mass/Vol] 11.0 g/dL Low 12.0-15.0 [facility] Immature granulocytes/100 WB C Auto (Bld)Ordered By: Laverne Lea on 10-15-2024 Immature granulocytes/100 WBC (Bld) 0.200 % 0.0-0.9 [facility] Comment on above: IG% - Immature Granu locytes (promyelocytes, myelocytes and metamyelocytes) > 1% indicates that a LEFT SHIFT is Present. Lymphocytes Auto (Unsp spec) [#/Vol]Ordered By: beverly Lea on 10-15-2024 Lymphocytes (Bld) [#/Vol] 3.43 10*3/uL 0.83-4.51 [facility] Lymphocytes/100 WBC Auto (Un sp spec)Ordered By: Laverne Lea on 10-15-2024 Lymphocytes/100 WBC (Bld) 54.1 % High 19-41 [facility] MCV (mean corpuscular volume ) determinationOrdered By: Laverne Lea on 10-15-2024 MCV (RBC) [Entitic vol] 93.4 fL 81-99 [facility] Mean corpuscular hemoglobin (MCH) determinationOrdered By: Laverne Lea on 10-15-2024 MCH (RBC) [Entitic mass] 31.3 pg 27.0-32.0 [facility] Mean corpuscular hemoglobin concentration (MCHC) determinationOrdered By: Laverne Lea on 10-15-2024 MCHC (RBC) [Mass/Vol] 33.5 g/dL 32-36 [facility] Mean platelet volume determi nationOrdered By: Laverne Lea on 10-15-2024 Platelet mean volume (Bld) [Entitic vol] 10.0 fL 6.2-12.0 [facility] Monocyte percentageOrdered B y: Laverne Lea on 10-15-2024 Monocytes/100 WBC (Bld) 6.2 % 0-10 [facility] Neutrophil percentageOrdered By: Laverne Lea on 10-15-2024 Neutrophils/100 WBC (Bld) 37.0 % Low 47-70 [facility] Nucleated red blood cell per centageOrdered By: Laverne Lea on 10-15-2024 Nucleated RBC/100 WBC (Bld) [Ratio] 0 % 0-5 [facility] Platelet countOrdered By: Leonora Lea on 10-15-2024 Platelets (Bld) [#/Vol] 246 10*3/uL 150-450 [facility] Potassium measurementOrdered By: Laverne Lea on 10-15-2024 Potassium [Moles/Vol] 4.1 mmol/L 3.5-5.1 [facility] RBC Auto (Bld) [#/Vol]Ordere d By: Laverne Lea on 01-13-2025 RBC (Bld) [#/Vol] 3.51 10*6/uL Low 4.2-5.4 [facility] Serum anion gap measurementO rdered By: Laverne Lea on 10-15-2024 Anion gap [Moles/Vol] 4 mmol/L Low 5-15 [facility] Serum or plasma calcium inga urement (mass/volume)Ordered By: Laverne Lea on 10-15-2024 Calcium [Mass/Vol] 9.0 mg/dL 8.5-10.1 [facility] Serum or plasma creatinine m easurement [...] 10-15-2024 Urea nitrogen [Mass/Vol] 14 mg/dL 7-18 [facility] Sodium levelOrdered By: Antonette Lea on 10-15-2024 Sodium [Moles/Vol] 139 mmol/L 136-145 [facility] White blood cell (WBC) count Ordered By: Laverne Lea on 10-15-2024 WBC (Bld) [#/Vol] 6.3 10*3/uL 4.4-11.0 [facility] TSH QnOrdered By: Laverne Lea on 10-01-2024 Thyroid Stimulating Hormone (TSH) 2.360 uIU/mL 0.358-3.740 [facility] Potassium measurementOrdered By: Laverne Lea on 09-13-2024 Potassium [Moles/Vol] 4.0 mmol/L 3.5-5.1 [facility] Absolute neutrophil countOrd ered By: Laverne Lea on 09-10-2024 Neutrophils (Bld) [#/Vol] 2.8 10*3/uL 2.0-7.7 [facility] Basophil percentageOrdered B y: Laverne Lea on 09-10-2024 Basophils/100 WBC (Bld) 0.8 % 0-1 [facility] Blood urea nitrogen (BUN)/cr eatinine ratioOrdered By: Laverne Lea on 09-10-2024 Urea nitrogen/Creatinine [Mass ratio] 11.3 mg/mg 10-20 [facility] Carbon dioxide measurementOr dered By: Laverne Lea on 09-10-2024 CO2 [Moles/Vol] 26.0 mmol/L 21.0-32.0 [facility] Chloride measurementOrdered By: Laverne Lea on 09-10-2024 Chloride [Moles/Vol] 108 mmol/L High 98-107 [facility] Eosinophil percentageOrdered By: Laverne Lea on 09-10-2024 Eosinophils/100 WBC (Bld) 1.4 % 0-5 [facility] Erythrocyte distribution wid th (RBC) [Ratio]Ordered By: Laverne Lea on 09-10-2024 Erythrocyte distribution width (RBC) [Entitic vol] 43.9 fL 35.1-43.9 [facility] Erythrocyte distribution wid th ratioOrdered By: Laverne Lea on 09-10-2024 Erythrocyte distribution width (RBC) [Ratio] 13.0 % 11.6-14.6 [facility] Estimated glomerular filtrat ion rate (GFR) AmericanOrdered By: Laverne Lea on 09-10-2024 Estimated GFR (MDRD) Amer 70 mL/min >60 [facility] Comment on above: GFR Calc Glomerular filtration rate ( GFR) estimationOrdered By: Laverne Lea on 09-10-2024 Estimated GFR (MDRD) Non-Af Amer 58 mL/min Low >60 [facility] Comment on above: Non- GFR Calc Glucose measurementOrdered B y: Laverne Lea on 09-10-2024 Glucose [Mass/Vol] 210 mg/dL High 74-106 [facility] Comment on above: Glucose result great er than or equal to 200 mg/dLsuggests DIABETES MELLITUS per A.D.A. criteria. Hematocrit Auto (Bld) [Volum e fraction]Ordered By: Laverne Lea on 09-10-2024 Hematocrit (Bld) [Volume fraction] 37.5 % 37-47 [facility] Hemoglobin measurementOrdere d By: Laverne Lea on 09-10-2024 Hemoglobin (Bld) [Mass/Vol] 12.4 g/dL 12.0-15.0 [facility] Immature granulocytes/100 WB C Auto (Bld)Ordered By: Laverne Lea on 09-10-2024 Immature granulocytes/100 WBC (Bld) 0.100 % 0.0-0.9 [facility] Comment on above: IG% - Immature Granu locytes (promyelocytes, myelocytes and metamyelocytes) > 1% indicates that a LEFT SHIFT is Present. Lymphocytes Auto (Unsp spec) [#/Vol]Ordered By: Laverne Lea on 09-10-2024 Lymphocytes (Bld) [#/Vol] 4.45 10*3/uL 0.83-4.51 [facility] Lymphocytes/100 WBC Auto (Un sp spec)Ordered By: Laverne Lea on 09-10-2024 Lymphocytes/100 WBC (Bld) 56.8 % High 19-41 [facility] MCV (mean corpuscular volume ) determinationOrdered By: Laverne Lea on 09-10-2024 MCV (RBC) [Entitic vol] 91.5 fL 81-99 [facility] Mean corpuscular hemoglobin (MCH) determinationOrdered By: Laverne Lea on 09-10-2024 MCH (RBC) [Entitic mass] 30.2 pg 27.0-32.0 [facility] Mean corpuscular hemoglobin concentration (MCHC) determinationOrdered By: Laverne Lea on 09-10-2024 MCHC (RBC) [Mass/Vol] 33.1 g/dL 32-36 [facility] Mean platelet volume determi nationOrdered By: Lvaerne Lea on 09-10-2024 Platelet mean volume (Bld) [Entitic vol] 10.1 fL 6.2-12.0 [facility] Monocyte percentageOrdered B y: Laverne Lea on 09-10-2024 Monocytes/100 WBC (Bld) 4.7 % 0-10 [facility] Neutrophil percentageOrdered By: Laverne Moraleznetoayo on 09-10-2024 Neutrophils/100 WBC (Bld) 36.2 % Low 47-70 [facility] Nucleated red blood cell per centageOrdered By: Laverne Lea on 09-10-2024 Nucleated RBC/100 WBC (Bld) [Ratio] 0 % 0-5 [facility] Platelet countOrdered By: Leonora fatouernesto Lea on 09-10-2024 Platelets (Bld) [#/Vol] 283 10*3/uL 150-450 [facility] Potassium measurementOrdered By: Laverne Lea on 09-10-2024 Potassium [Moles/Vol] 3.4 mmol/L Low 3.5-5.1 [facility] RBC Auto (Bld) [#/Vol]Ordere d By: Laverne Lea on 09-10-2024 RBC (Bld) [#/Vol] 4.10 10*6/uL Low 4.2-5.4 [facility] Serum anion gap measurementO rdered By: Laverne Lea on 09-10-2024 Anion gap [Moles/Vol] 6 mmol/L 5-15 [facility] Serum or plasma calcium inga urement (mass/volume)Ordered By: Laverne Lea on 09-10-2024 Calcium [Mass/Vol] 9.4 mg/dL 8.5-10.1 [facility] Serum or plasma creatinine m easurement [...] 09-10-2024 Urea nitrogen [Mass/Vol] 11 mg/dL 7-18 [facility] Sodium levelOrdered By: Antonette Lea on 09-10-2024 Sodium [Moles/Vol] 140 mmol/L 136-145 [facility] White blood cell (WBC) count Ordered By: Laverne Lea on 09-10-2024 WBC (Bld) [#/Vol] 7.8 10*3/uL 4.4-11.0 [facility] ERCP Reporton 07-23-2024 ERCP Report [facility] Medical Records Department [address] [place] [address] ERCP Report MR#: [id number] Acct: [id number] Name: LUIZA GALO Rep #: [id number] : 1940 83 From: Doe Orr DO PCP: Dr. Rosalind Rubalcava MD Status:DEP [facility] Patient Name: Luiza Galo Procedure Date: 07/19/2024 [...] hours 12 minutes 16 seconds Findings: The public safety police film was normal. The esophagus was successfully [...] biliary tree. Procedure Code(s): --- Professional --- 28108, Endoscopic retrograde cholangiopancreatograph y (ERCP); with removal of foreign body(s) or stent(s) from biliary/singh (more content not included)... Normal [facility] Bedside Glucoseon 07-19-2024 FINGERSTICK GLU 140 mg/dL High 74-106 [facility] Comment on above: Result Comment: TRAE CASTELLANO OF PATIENT CARE PER NURSING PROTOCOL Performed By: #### L 501.080 #### [facility] [address] [facility] [place], [place], [address] ERCP Biliary/Pancreason 07-03 ERCP Biliary/Pancreas [facility] Imaging Services [address] [place], [place] [address] ERCP Biliary/Pancreas MR#: [id number] Acct: [id number] Name: LUIZA GALO Rep #: [id number] : 1940 F 83 From: Jose Hatfield PCP: Dr. Rosalind Rubalcava MD Status: SURGERY [facility] Study: ERCP Biliary/Pancreas Date of Exam: 07/19/24 Exam# [id number] Ordering [place]: [place] [id number] EXAM: INTRAOPERATIVE CHOLANGIOGRAM FLUOROSCOPY TIME: 153.8 seconds RADIATION DOSE: 37.47 mGy TOTAL NUMBER OF IMAGES: 1 COMPARISON: None. PROVIDED CLINICAL HISTORY: STONES PAIN TECHNIQUE: The examination was performed with physician in attendance. Under fluoroscopic observation, fluoroscopic images were obtained in the operating room. FINDINGS: First image demonstrates surgical instruments overlying the [id number]. Contrast is identified in a cannulated common bile duct. Retrograde contrast is notseen in the pancreatic duct. Contrast is noted in the proximal duodenum. Contrast is seen in the intrahepatic ducts. Stent removal RAD/ERCP Biliary/Pancreas IMPRESSION: Fluoroscopic assistance images were obtained. Pertinent findings noted above. Electronically Signed: Jose Queen MD at 15:37 EDT Reading Location ID and State: [facility] / [place] , Service support , CC: Dr. Rosalind Rubalcava MD; Doe Orr DO Floor Associate: Signed [facility] MR/POSTOP.ANEon 07-19-2024 MR/POSTOP.[facility] Medical Records Department [address] [place] [address] Anesthesia Postop Eval I 07/19/24 1219 MR#: [id number] Acct: [id number] Name: LUIZA GALO Corrine Rep #: [id number] : 1940 83 From: Omid Adams PCP: Dr. Rosalind Rubalcava MD Status:REG [facility] Y Race: C Location: [place] [address] Anesthesia: Postop Eval I Current Vital Signs [...] Date Omid Tabares Signature: Date CC: Signed [facility] MR/[id number] 07-19-2024 MR/POSTOPAN2 [facility] Medical Records Department [address] [facility] [place] [address] Anesthesia Postop Eval II 07/19/24 1225 MR#: [id number] Acct: [id number] Name: LUIZA GALO Rep #: [id number] : 1940 83 From: Cirilo Galeas MD PCP: Dr. Rosalind Rubalcava MD Status:REG [facility] Y Race: C Location: [facility] Anesthesia Postop Eval I Sum Postop Eval [...] MD Cosigner Signature: Date CC: Signed Normal [facility] Special Stain Group IIon Special Stain Group II ------ Patient Age/Sex Location Account Attending Physician RICKYLUIZA L 83/F EN [id number] Doe Orr DO Specimen: [id number] Received: 07/19/24 Status: EMANUEL Pastrana Num: [id number] Spec Type: Fluid Subm Dr: Doe Orr [...] including cell block. Mr 07/19/2024 TC:5 CPT: 18433,74178 Signed (signature on file) Dr. Rangel Bell MD 07/20/24 1232 Normal [facility] Comment on above: Performed By: #### P SSII #### [facility] [address] [place], [address] .Auto Diffon 05-23-2024 Basophil, Absolute 0.0 10 3/mcL Normal 0.0-0.2 [facility] ([place]) Comment on above: Performed By: #### C BC, GFR, A1C, ADIFF, CRP, TSH, CMP, ANEU, ESR #### [address] [address] Basophils/100 WBC (Bld) 0.5 % Normal 0.0-2.5 [facility] ([place]) Comment on above: Performed By: #### C BC, GFR, A1C, ADIFF, CRP, TSH, CMP, ANEU, ESR #### [address] [address] Eosinophil, Absolute 0.2 10 3/mcL Normal 0.0-0.4 [facility] ([place]) Comment on above: Performed By: #### C BC, GFR, A1C, ADIFF, CRP, TSH, CMP, ANEU, ESR #### [address] [address] Eosinophils/100 WBC (Bld) 2.1 % Normal 0.0-7.0 [facility] ([place]) Comment on above: Performed By: #### C BC, GFR, A1C, ADIFF, CRP, TSH, CMP, ANEU, ESR #### [address] [address] Lymphocyte, Absolute 3.3 10 3/mcL Normal 0.8-3.9 [facility] ([place]) Comment on above: Performed By: #### C BC, GFR, A1C, ADIFF, CRP, TSH, CMP, ANEU, ESR #### [address] [address] Lymphocytes/100 WBC (Bld) 35.3 % Normal 10.0-50.0 [facility] ([place]) Comment on above: Performed By: #### C BC, GFR, A1C, ADIFF, CRP, TSH, CMP, ANEU, ESR #### [address] [address] Monocyte, Absolute 0.5 10 3/mcL Normal 0.2-1.0 [facility] ([place]) Comment on above: Performed By: #### C BC, GFR, A1C, ADIFF, CRP, TSH, CMP, ANEU, ESR #### [address] [address] Monocytes/100 WBC (Bld) 5.4 % Normal 1.7-13.0 [facility] ([place]) Comment on above: Performed By: #### C BC, GFR, A1C, ADIFF, CRP, TSH, CMP, ANEU, ESR #### [address] [address] Neutrophils/100 WBC (Bld) 56.7 % Normal 37.0-80.0 [facility] ([place]) Comment on above: Performed By: #### C BC, GFR, A1C, ADIFF, CRP, TSH, CMP, ANEU, ESR #### [address] [address] .GFRon 05-23-2024 GFR Non- 59 ml/min/1.73sqm Normal [facility] ([place]) Comment on above: Result Comment: GFR Population [...] ADIFF, CRP, TSH, CMP, ANEU, ESR #### [address] [address] GFR 71 ml/min/1.73sqm Normal [facility] ([place]) Comment on above: Result Comment: GFR Population [...] ADIFF, CRP, TSH, CMP, ANEU, ESR #### [address] [address] .NEUABSon 05-23-2024 Neutrophil, Absolute 5.3 10 3/mcL Normal 2.9-6.2 [facility] ([place]) Comment on above: Performed By: #### C BC, GFR, A1C, ADIFF, CRP, TSH, CMP, ANEU, ESR #### [address] [address] A1Con 05-23-2024 Glucose [Mass/Vol] 157 mg/dL Normal [facility] ([place]) Comment on above: Result Comment: Jessica mated Average Glucose calculated by equation ((28.7xA1C)-46.7) Estimated average glucose (eAG) is a calculated value from Hemoglobin A1C and is promotions representative of the average blood glucose level in the last 2-3 month period. Normal range: less than 114 mg/dL Performed By: #### C BC, GFR, A1C, ADIFF, CRP, TSH, CMP, ANEU, ESR #### [place] [id number] HbA1c (Bld) [Mass fraction] 7.1 % High 4.3-6.4 [facility] ([place]) Comment on above: Performed By: #### C BC, GFR, A1C, ADIFF, CRP, TSH, CMP, ANEU, ESR #### [place] [id number] CBCon 05-23-2024 Erythrocyte distribution width (RBC) [Ratio] 13.7 % Normal 11.5-14.5 [facility] ([place]) Comment on above: Performed By: #### C BC, GFR, A1C, ADIFF, CRP, TSH, CMP, ANEU, ESR #### [place] [address] Hematocrit (Bld) [Volume fraction] 36.6 % Low 37.0-47.0 [facility] ([place]) Comment on above: Performed By: #### C BC, GFR, A1C, ADIFF, CRP, TSH, CMP, ANEU, ESR #### [place] [address] Hgb 12.6 G/dL Normal 12.0-16.0 [facility] ([place]) Comment on above: Performed By: #### C BC, GFR, A1C, ADIFF, CRP, TSH, CMP, ANEU, ESR #### [place] [address] MCH (RBC) [Entitic mass] 30.6 pg Normal 27.0-31.2 [facility] ([place]) Comment on above: Performed By: #### C BC, GFR, A1C, ADIFF, CRP, TSH, CMP, ANEU, ESR #### [place] [address] MCHC 34.3 G/dL Normal 33.0-37.0 [facility] ([place]) Comment on above: Performed By: #### C BC, GFR, A1C, ADIFF, CRP, TSH, CMP, ANEU, ESR #### [address] [address] MCV (RBC) [Entitic vol] 89.3 fL Normal 80.0-94.0 [facility] ([place]) Comment on above: Performed By: #### C BC, GFR, A1C, ADIFF, CRP, TSH, CMP, ANEU, ESR #### [address] [address] Platelet 276 10 3/mcL Normal 130-400 [facility] ([place]) Comment on above: Performed By: #### C BC, GFR, A1C, ADIFF, CRP, TSH, CMP, ANEU, ESR #### [address] [address] Platelet mean volume (Bld) [Entitic vol] 8.3 fL Normal 7.4-10.4 [facility] ([place]) Comment on above: Performed By: #### C BC, GFR, A1C, ADIFF, CRP, TSH, CMP, ANEU, ESR #### [address] [address] RBC 4.10 10 6/mcL Low 4.20-5.40 [facility] ([place]) Comment on above: Performed By: #### C BC, GFR, A1C, ADIFF, CRP, TSH, CMP, ANEU, ESR #### [address] [address] WBC 9.4 10 3/mcL Normal 4.6-10.8 [facility] ([place]) Comment on above: Performed By: #### C BC, GFR, A1C, ADIFF, CRP, TSH, CMP, ANEU, ESR #### [address] [address] CMPon 05-23-2024 Albumin Level 3.3 G/dL Low 3.4-4.8 [facility] ([place]) Comment on above: Performed By: #### C BC, GFR, A1C, ADIFF, CRP, TSH, CMP, ANEU, ESR #### [address] [address] Albumin/Globulin [Mass ratio] 0.9 {ratio} Low 1.1-2.5 [facility] ([place]) Comment on above: Performed By: #### C BC, GFR, A1C, ADIFF, CRP, TSH, CMP, ANEU, ESR #### [address] [address] ALP [Catalytic activity/Vol] 115 U/L Normal 40-135 [facility] ([place]) Comment on above: Performed By: #### C BC, GFR, A1C, ADIFF, CRP, TSH, CMP, ANEU, ESR #### [address] [address] ALT [Catalytic activity/Vol] 35 U/L Normal 14-59 [facility] ([place]) Comment on above: Performed By: #### C BC, GFR, A1C, ADIFF, CRP, TSH, CMP, ANEU, ESR #### [place] [id number] AST [Catalytic activity/Vol] 42 U/L High 10-40 [facility] ([place]) Comment on above: Performed By: #### C BC, GFR, A1C, ADIFF, CRP, TSH, CMP, ANEU, ESR #### [address] [address] Bili Total 0.4 mg/dL Normal 0.2-1.0 [facility] ([place]) Comment on above: Result Comment: Use of this assay is not recommended for patients undergoing treatment with eltrombopag due to the potential for falsely elevated results. Performed By: #### C BC, GFR, A1C, ADIFF, CRP, TSH, CMP, ANEU, ESR #### [address] [address] BUN/Creatinine Ratio 12 ratio Normal 7-27 [facility] ([place]) Comment on above: Performed By: #### C BC, GFR, A1C, ADIFF, CRP, TSH, CMP, ANEU, ESR #### [address] [address] Calcium [Mass/Vol] 10.1 mg/dL Normal 8.4-10.2 [facility] ([place]) Comment on above: Performed By: #### C BC, GFR, A1C, ADIFF, CRP, TSH, CMP, ANEU, ESR #### [address] [address] Chloride [Moles/Vol] 103 mmol/L Normal 98-107 [facility] ([place]) Comment on above: Performed By: #### C BC, GFR, A1C, ADIFF, CRP, TSH, CMP, ANEU, ESR #### [address] [address] CO2 [Moles/Vol] 29 mmol/L Normal 23-31 [facility] ([place]) Comment on above: Performed By: #### C BC, GFR, A1C, ADIFF, CRP, TSH, CMP, ANEU, ESR #### [address] [address] Creatinine [Mass/Vol] 0.92 mg/dL Normal 0.55-1.02 [facility] ([place]) Comment on above: Performed By: #### C BC, GFR, A1C, ADIFF, CRP, TSH, CMP, ANEU, ESR #### [address] [address] Electrolyte Balance 9.0 mEq/L Normal 4.0-15.0 [facility] ([place]) Comment on above: Performed By: #### C BC, GFR, A1C, ADIFF, CRP, TSH, CMP, ANEU, ESR #### [address] [address] Globulin 3.7 G/dL Normal [facility] ([place]) Comment on above: Performed By: #### C BC, GFR, A1C, ADIFF, CRP, TSH, CMP, ANEU, ESR #### [address] [address] Glucose [Mass/Vol] 129 mg/dL High 83-110 [facility] ([place]) Comment on above: Performed By: #### C BC, GFR, A1C, ADIFF, CRP, TSH, CMP, ANEU, ESR #### [address] [address] Potassium [Moles/Vol] 3.7 mmol/L Normal 3.5-5.1 [facility] ([place]) Comment on above: Performed By: #### C BC, GFR, A1C, ADIFF, CRP, TSH, CMP, ANEU, ESR #### [address] [address] Sodium [Moles/Vol] 141 mmol/L Normal 136-145 [facility] ([place]) Comment on above: Performed By: #### C BC, GFR, A1C, ADIFF, CRP, TSH, CMP, ANEU, ESR #### [address] [address] Total Protein 7.0 G/dL Normal 6.4-8.2 [facility] ([place]) Comment on above: Performed By: #### C BC, GFR, A1C, ADIFF, CRP, TSH, CMP, ANEU, ESR #### [address] [address] Urea nitrogen [Mass/Vol] 11 mg/dL Normal 7-18 [facility] ([place]) Comment on above: Performed By: #### C BC, GFR, A1C, ADIFF, CRP, TSH, CMP, ANEU, ESR #### [address] [address] CRPon 05-23-2024 C-Reactive Protein 0.2 mg/dL Normal 0.0-0.3 [facility] ([place]) Comment on above: Performed By: #### C BC, GFR, A1C, ADIFF, CRP, TSH, CMP, ANEU, ESR #### [address] [address] ESRon 05-23-2024 Erythrocyte Sed Rate 15 mm/hr Normal 0-30 [facility] ([place]) Comment on above: Performed By: #### C BC, GFR, A1C, ADIFF, CRP, TSH, CMP, ANEU, ESR #### [address] [address] LABORATORYOrdered By: SYSTEM SYSTEM on 05-23-2024 Albumin [...] calculated value from Hemoglobin A1C and is promotions representative of the average blood glucose level [...] 05-23-2024 TSH Qn 1.98 m[IU]/L Normal 0.36-3.74 [facility] ([place]) Comment on above: Performed By: #### C BC, GFR, A1C, ADIFF, CRP, TSH, CMP, ANEU, ESR #### [address] [address] .ANATon 03-07-2024 CRISTEL Pattern 1 Homogeneous Normal [facility] ([place]) Comment on above: Result Comment: At [place], an CRISTEL titer of less than 160 is not considered suggestive of significant rheumatoid disease. If clinical suspicion is high, suggest repeat testing in 1-2 months. Performed By: #### C BC, GFR, A1C, ADIFF, CRP, TSH, CMP, ANEU, ESR #### [address] [address] CRISTEL Titer 1 80 Normal [facility] ([place]) Comment on above: Performed By: #### C BC, GFR, A1C, ADIFF, CRP, TSH, CMP, ANEU, ESR #### [address] [address] ANAon 03-07-2024 CRISTEL See Titer Normal Neg 40 [facility] ([place]) Comment on above: Result Comment: CRISTEL Screen and Titer methodology is an immunofluorescent technique utilizing Hep2 Substrate. Performed By: #### C BC, GFR, A1C, ADIFF, CRP, TSH, CMP, ANEU, ESR #### [address] [address] .GFRon 03-06-2024 GFR 62 ml/min/1.73sqm Normal [facility] ([place]) Comment on above: Result Comment: GFR Population [...] ADIFF, CRP, TSH, CMP, ANEU, ESR #### [address] [address] GFR Non- 51 ml/min/1.73sqm Normal [facility] ([place]) Comment on above: Result Comment: GFR Population [...] ADIFF, CRP, TSH, CMP, ANEU, ESR #### [address] [address] A1Con 03-06-2024 HbA1c (Bld) [Mass fraction] 7.5 % High 4.3-6.4 [facility] ([place]) Comment on above: Performed By: #### C BC, GFR, A1C, ADIFF, CRP, TSH, CMP, ANEU, ESR #### [address] [address] CMPon 03-06-2024 Albumin Level 3.1 G/dL Low 3.4-4.8 [facility] ([place]) Comment on above: Performed By: #### C BC, GFR, A1C, ADIFF, CRP, TSH, CMP, ANEU, ESR #### [address] [address] Albumin/Globulin [Mass ratio] 0.8 {ratio} Low 1.1-2.5 [facility] ([place]) Comment on above: Performed By: #### C BC, GFR, A1C, ADIFF, CRP, TSH, CMP, ANEU, ESR #### [address] [address] ALP [Catalytic activity/Vol] 113 U/L Normal 40-135 [facility] ([place]) Comment on above: Performed By: #### C BC, GFR, A1C, ADIFF, CRP, TSH, CMP, ANEU, ESR #### [address] [address] ALT [Catalytic activity/Vol] 24 U/L Normal 14-59 [facility] ([place]) Comment on above: Performed By: #### C BC, GFR, A1C, ADIFF, CRP, TSH, CMP, ANEU, ESR #### [address] [address] AST [Catalytic activity/Vol] 19 U/L Normal 10-40 [facility] ([place]) Comment on above: Performed By: #### C BC, GFR, A1C, ADIFF, CRP, TSH, CMP, ANEU, ESR #### [address] [address] Bili Total 0.4 mg/dL Normal 0.2-1.0 [facility] ([place]) Comment on above: Result Comment: Use of this assay is not recommended for patients undergoing treatment with eltrombopag due to the potential for falsely elevated results. Performed By: #### C BC, GFR, A1C, ADIFF, CRP, TSH, CMP, ANEU, ESR #### [address] [address] BUN/Creatinine Ratio 16 ratio Normal 7-27 [facility] ([place]) Comment on above: Performed By: #### C BC, GFR, A1C, ADIFF, CRP, TSH, CMP, ANEU, ESR #### [address] [place] [address] Calcium [Mass/Vol] 9.0 mg/dL Normal 8.4-10.2 [facility] ([place]) Comment on above: Performed By: #### C BC, GFR, A1C, ADIFF, CRP, TSH, CMP, ANEU, ESR #### [address] [address] Chloride [Moles/Vol] 103 mmol/L Normal 98-107 [facility] ([place]) Comment on above: Performed By: #### C BC, GFR, A1C, ADIFF, CRP, TSH, CMP, ANEU, ESR #### [address] [address] CO2 [Moles/Vol] 32 mmol/L High 23-31 [facility] ([place]) Comment on above: Performed By: #### C BC, GFR, A1C, ADIFF, CRP, TSH, CMP, ANEU, ESR #### [address] [address] Creatinine [Mass/Vol] 1.04 mg/dL High 0.55-1.02 [facility] ([place]) Comment on above: Performed By: #### C BC, GFR, A1C, ADIFF, CRP, TSH, CMP, ANEU, ESR #### [address] [address] Electrolyte Balance 10.0 mEq/L Normal 4.0-15.0 [facility] ([place]) Comment on above: Performed By: #### C BC, GFR, A1C, ADIFF, CRP, TSH, CMP, ANEU, ESR #### [address] [address] Globulin 3.7 G/dL Normal [facility] ([place]) Comment on above: Performed By: #### C BC, GFR, A1C, ADIFF, CRP, TSH, CMP, ANEU, ESR #### [address] [address] Glucose [Mass/Vol] 147 mg/dL High 83-110 [facility] ([place]) Comment on above: Performed By: #### C BC, GFR, A1C, ADIFF, CRP, TSH, CMP, ANEU, ESR #### [address] [address] Potassium [Moles/Vol] 3.6 mmol/L Normal 3.5-5.1 [facility] ([place]) Comment on above: Performed By: #### C BC, GFR, A1C, ADIFF, CRP, TSH, CMP, ANEU, ESR #### [place] [id number] Sodium [Moles/Vol] 145 mmol/L Normal 136-145 [facility] ([place]) Comment on above: Performed By: #### C BC, GFR, A1C, ADIFF, CRP, TSH, CMP, ANEU, ESR #### [place] [address] Total Protein 6.8 G/dL Normal 6.4-8.2 [facility] ([place]) Comment on above: Performed By: #### C BC, GFR, A1C, ADIFF, CRP, TSH, CMP, ANEU, ESR #### [place] [address] Urea nitrogen [Mass/Vol] 17 mg/dL Normal 7-18 [facility] ([place]) Comment on above: Performed By: #### C BC, GFR, A1C, ADIFF, CRP, TSH, CMP, ANEU, ESR #### [address] [address] CRPon 03-06-2024 C-Reactive Protein 0.1 mg/dL Normal 0.0-0.3 [facility] ([place]) Comment on above: Performed By: #### C BC, GFR, A1C, ADIFF, CRP, TSH, CMP, ANEU, ESR #### [address] [address] ESRon 03-06-2024 Erythrocyte Sed Rate 9 mm/hr Normal 0-30 [facility] ([place]) Comment on above: Performed By: #### C BC, GFR, A1C, ADIFF, CRP, TSH, CMP, ANEU, ESR #### [address] [address] FT3on 03-06-2024 Free T3 [Mass/Vol] 2.44 pg/mL Normal 2.30-4.00 [facility] ([place]) Comment on above: Performed By: #### C BC, GFR, A1C, ADIFF, CRP, TSH, CMP, ANEU, ESR #### [address] [address] FT4on 03-06-2024 Free T4 [Mass/Vol] 0.81 ng/dL Normal 0.76-1.46 [facility] ([place]) Comment on above: Performed By: #### C BC, GFR, A1C, ADIFF, CRP, TSH, CMP, ANEU, ESR #### [place] [address] LIPIDon 03-06-2024 Cholesterol [Mass/Vol] 163 mg/dL Normal 0-200 [facility] ([place]) Comment on above: Result Comment: Chol esterol Reference Interval: Less than 200 Desirable 200-239 Borderline high risk 240 and above High risk Performed By: #### C BC, GFR, A1C, ADIFF, CRP, TSH, CMP, ANEU, ESR #### [address] [address] Cholesterol in HDL [Mass/Vol] 49 mg/dL Normal 40-60 [facility] ([place]) Comment on above: Performed By: #### C BC, GFR, A1C, ADIFF, CRP, TSH, CMP, ANEU, ESR #### [address] [address] Cholesterol in LDL [Mass/Vol] 87 mg/dL Normal 0-130 [facility] ([place]) Comment on above: Performed By: #### C BC, GFR, A1C, ADIFF, CRP, TSH, CMP, ANEU, ESR #### [address] [address] Triglyceride [Mass/Vol] 133 mg/dL Normal 0-150 [facility] ([place]) Comment on above: Result Comment: Trig lyceride Reference Interval: Less than 150 Normal 150-199 Borderline high risk 200-499 High risk 500 or higher Very high risk Performed By: #### C BC, GFR, A1C, ADIFF, CRP, TSH, CMP, ANEU, ESR #### [place] [address] TSHon 03-06-2024 TSH Qn 4.52 m[IU]/L High 0.36-3.74 [facility] ([place]) Comment on above: Performed By: #### C BC, GFR, A1C, ADIFF, CRP, TSH, CMP, ANEU, ESR #### [place] [address] [place], [place] [address] URICon 03-06-2024 Uric Acid Lvl 6.3 mg/dL High 2.6-6.2 [facility] ([place]) Comment on above: Performed By: #### C BC, GFR, A1C, ADIFF, CRP, TSH, CMP, ANEU, ESR #### [place] [address] [address] Absolute lymphocyte countOrd ered By: Katalina Torres on 12-28-2023 Lymphocytes Auto (Unsp spec) [#/Vol] 2.31 10*3/uL 0.83-4.51 [facility] Automated lymphocyte count a s percentage of total leukocytesOrdered By: Katalina Torres on 12-28-2023 Lymphocytes/100 WBC Auto (Unsp spec) 33.3 % 19-41 [facility] Basophil percentageOrdered B y: Katalina Torres on 12-28-2023 Basophils/100 WBC (Bld) 0.6 % 0-1 [facility] Chloride [Moles/Vol] 104 mmol/L 98-107 [facility] Eosinophils/100 WBC (Bld) 1.9 % 0-5 [facility] Glucose [Mass/Vol] 161 mg/dL 74-106 [facility] Comment on above: Fasting Glucose resu lt greater than or equal to 126 mg/dL suggests DIABETES MELLITUS per A.D.A. criteria. Hemoglobin (Bld) [Mass/Vol] 12.4 g/dL 12.0-15.0 [facility] Monocytes/100 WBC (Bld) 4.9 % 0-10 [facility] Neutrophils (Bld) [#/Vol] 4.1 10*3/uL 2.0-7.7 [facility] Neutrophils/100 WBC (Bld) 59.2 % 47-70 [facility] Potassium [Moles/Vol] 3.3 mmol/L 3.5-5.1 [facility] Sodium [Moles/Vol] 140 mmol/L 136-145 [facility] WBC (Bld) [#/Vol] 6.9 10*3/uL 4.4-11.0 [facility] Determination of erythrocyte mean corpuscular volume (MCV)Ordered By: Katalina Torres on 12-28-2023 MCV (RBC) [Entitic vol] 88.6 fL 81-99 [facility] Erythrocyte distribution wid th ratioOrdered By: Katalina Torres on 12-28-2023 Erythrocyte distribution width (RBC) [Ratio] 13.6 % 11.6-14.6 [facility] Erythrocyte distribution wid th standard deviationOrdered By: Katalina Torres on 12-28-2023 Erythrocyte distribution width (RBC) [Entitic vol] 44.2 fL 35.1-43.9 [facility] Hematocrit Auto (Bld) [Volum e fraction]Ordered By: Katalina Torres on 12-28-2023 Hematocrit (Bld) [Volume fraction] 38.8 % 37-47 [facility] Immature granulocytes/100 WB C Auto (Bld)Ordered By: Katalina Torres on 12-28-2023 Immature granulocytes/100 WBC (Bld) 0.100 % 0.0-0.9 [facility] Comment on above: IG% - Immature Granu locytes (promyelocytes, myelocytes and metamyelocytes) > 1% indicates that a LEFT SHIFT is Present. Laboratory - Chemistry and C hemistry - challengeOrdered By: Katalina Torres on 12-28-2023 CO2 [Moles/Vol] 30.0 mmol/L 21.0-32.0 [facility] Natriuretic peptide B (Bld) [Mass/Vol] 61.6 pg/mL 0-100 [facility] Urea nitrogen/Creatinine [Mass ratio] 19.4 mg/mg 10-20 [facility] Laboratory - Hematology and Cell countsOrdered By: Katalina Torres on 12-28-2023 MCH (RBC) [Entitic mass] 28.3 pg 27.0-32.0 [facility] MCHC (RBC) [Mass/Vol] 32.0 g/dL 32-36 [facility] Nucleated RBC/100 WBC (Bld) [Ratio] 0 % 0-5 [facility] Platelet mean volume (Bld) [Entitic vol] 10.5 fL 6.2-12.0 [facility] Platelets (Bld) [#/Vol] 247 10*3/uL 150-450 [facility] No Panel InformationOrdered By: Katalina Torres on 12-28-2023 Estimated GFR (MDRD) Amer 80 mL/min >60 [facility] Comment on above: GFR Calc Estimated GFR (MDRD) Non-Af Amer 66 mL/min >60 [facility] Comment on above: Non- GFR Calc RBC Auto (Bld) [#/Vol]Ordere d By: Katalina Torres on 12-28-2023 RBC (Bld) [#/Vol] 4.38 10*6/uL 4.2-5.4 [facility] Serum or plasma calcium inga urement (mass/volume)Ordered By: Katalina Torres on 12-28-2023 Calcium [Mass/Vol] 9.7 mg/dL 8.5-10.1 [facility] Serum or plasma creatinine m easurement [...] on 12-28-2023 TSH Qn 3.53 uIU/mL 0.358-3.74 [facility] Serum or plasma thyroxine (T 4) measurement (mass/volume)Ordered By: Katalina Torres on 12-28-2023 T4 [Mass/Vol] 9.0 ug/dL 4.8-13.9 [facility] Serum or plasma urea nitroge n measurement (mass/volume)Ordered By: Katalina Torres on 12-28-2023 Urea nitrogen [Mass/Vol] 17 mg/dL 7-18 [facility] Thin prep Papanicolaou smear with manual screeningOrdered By: Katalina Torres on 12-28-2023 Thin prep Papanicolaou smear with manual screening 6 5-15 [facility] Basophil percentageOrdered B y: Katalina Torres on 12-15-2023 Chloride [Moles/Vol] 107 mmol/L 98-107 [facility] Glucose [Mass/Vol] 153 mg/dL 74-106 [facility] Comment on above: Fasting Glucose resu lt greater than or equal to 126 mg/dL suggests DIABETES MELLITUS per A.D.A. criteria. Potassium [Moles/Vol] 3.8 mmol/L 3.5-5.1 [facility] Sodium [Moles/Vol] 142 mmol/L 136-145 [facility] Laboratory - Chemistry and C hemistry - challengeOrdered By: Katalina Torres on 12-15-2023 CO2 [Moles/Vol] 30.0 mmol/L 21.0-32.0 [facility] Urea nitrogen/Creatinine [Mass ratio] 8.5 mg/mg 10-20 [facility] No Panel InformationOrdered By: Katalina Torres on 12-15-2023 Estimated GFR (MDRD) Amer 73 mL/min >60 [facility] Comment on above: GFR Calc Estimated GFR (MDRD) Non-Af Amer 61 mL/min >60 [facility] Comment on above: Non- GFR Calc Serum or plasma calcium inga urement (mass/volume)Ordered By: Katalina Torres on 12-15-2023 Calcium [Mass/Vol] 9.7 mg/dL 8.5-10.1 [facility] Serum or plasma creatinine m easurement (mass/volume)Ordered By: Katalina Torres on 12-15-2023 Creatinine [Mass/Vol] 0.94 mg/dL 0.55-1.02 [facility] Comment on above: The validity of the calculated GFR & GFRAA in patients over 70 years has not been determined. Clinical correlation is essential. Serum or plasma urea nitroge n measurement (mass/volume)Ordered By: Kaatlina Torres on 12-15-2023 Urea nitrogen [Mass/Vol] 8 mg/dL 7-18 [facility] Thin prep Papanicolaou smear with manual screeningOrdered By: Katalina Torres on 12-15-2023 Thin prep Papanicolaou smear with manual screening 5 5-15 [facility] Absolute lymphocyte countOrd ered By: Lesley Lopez on 11-20-2023 Lymphocytes Auto (Unsp spec) [#/Vol] 2.64 10*3/uL 0.83-4.51 [facility] Activated partial thrombopla stin time (aPTT) in platelet poor plasma by coagulation aOrdered By: Lesley Lopez on 11-20-2023 aPTT Coag (PPP) [Time] 31.8 s 24.1-36.[address] [facility] Automated lymphocyte count a s percentage of total leukocytesOrdered By: Lesley Lopez on 11-20-2023 Lymphocytes/100 WBC Auto (Unsp spec) 38.0 % 19-41 [facility] Basophil percentageOrdered B y: Lesley Lopez on 11-20-2023 Basophils/100 WBC (Bld) 0.6 % 0-1 [facility] Chloride [Moles/Vol] 109 mmol/L 98-107 [facility] Eosinophils/100 WBC (Bld) 1.9 % 0-5 [facility] Glucose [Mass/Vol] 169 mg/dL 74-106 [facility] Comment on above: Fasting Glucose resu lt greater than or equal to 126 mg/dL suggests DIABETES MELLITUS per A.D.A. criteria. Hemoglobin (Bld) [Mass/Vol] 11.4 g/dL 12.0-15.0 [facility] Monocytes/100 WBC (Bld) 5.8 % 0-10 [facility] Neutrophils (Bld) [#/Vol] 3.7 10*3/uL 2.0-7.7 [facility] Neutrophils/100 WBC (Bld) 53.4 % 47-70 [facility] Potassium [Moles/Vol] 4.2 mmol/L 3.5-5.1 [facility] Sodium [Moles/Vol] 141 mmol/L 136-145 [facility] WBC (Bld) [#/Vol] 6.9 10*3/uL 4.4-11.0 [facility] Determination of erythrocyte mean corpuscular volume (MCV)Ordered By: Lesley Lopez on 11-20-2023 MCV (RBC) [Entitic vol] 88.9 fL 81-99 [facility] Erythrocyte distribution wid th ratioOrdered By: Lesley Lopez on 11-20-2023 Erythrocyte distribution width (RBC) [Ratio] 14.2 % 11.6-14.6 [facility] Erythrocyte distribution wid th standard deviationOrdered By: Lesley Lopez on 11-20-2023 Erythrocyte distribution width (RBC) [Entitic vol] 45.7 fL 35.1-43.9 [facility] Hematocrit Auto (Bld) [Volum e fraction]Ordered By: Lesley Lopez on 11-20-2023 Hematocrit (Bld) [Volume fraction] 36.2 % 37-47 [facility] Immature granulocytes/100 WB C Auto (Bld)Ordered By: Lesley Lopez on 11-20-2023 Immature granulocytes/100 WBC (Bld) 0.300 % 0.0-0.9 [facility] Comment on above: IG% - Immature Granu locytes (promyelocytes, myelocytes and metamyelocytes) > 1% indicates that a LEFT SHIFT is Present. Laboratory - Chemistry and C hemistry - challengeOrdered By: Lesley Lopez on 11-20-2023 CO2 [Moles/Vol] 29.0 mmol/L 21.0-32.0 [facility] Urea nitrogen/Creatinine [Mass ratio] 16.0 mg/mg 10-20 [facility] Laboratory - CoagulationOrde red By: Lesley Lopez on 11-20-2023 INR Coag (Bld) [Relative time] 1.2 {INR} [facility] PT Coag (PPP) [Time] 15.6 s 11.7-14.9 [facility] Laboratory - Hematology and Cell countsOrdered By: Lesley Lopez on 11-20-2023 MCH (RBC) [Entitic mass] 28.0 pg 27.0-32.0 [facility] MCHC (RBC) [Mass/Vol] 31.5 g/dL 32-36 [facility] Nucleated RBC/100 WBC (Bld) [Ratio] 0 % 0-5 [facility] Platelet mean volume (Bld) [Entitic vol] 10.6 fL 6.2-12.0 [facility] Platelets (Bld) [#/Vol] 222 10*3/uL 150-450 [facility] No Panel InformationOrdered By: Lesley Lopez on 11-20-2023 Estimated Creatinine Clearance Calc 40.41 ml/min [facility] Estimated GFR (MDRD) Amer 64 mL/min >60 [facility] Comment on above: GFR Calc Estimated GFR (MDRD) Non-Af Amer 53 mL/min >60 [facility] Comment on above: Non- GFR Calc RBC Auto (Bld) [#/Vol]Ordere d By: Lesley Lopez on 11-20-2023 RBC (Bld) [#/Vol] 4.07 10*6/uL 4.2-5.4 [facility] Serum or plasma calcium inga urement (mass/volume)Ordered By: Lesley Lopez on 11-20-2023 Calcium [Mass/Vol] 9.1 mg/dL 8.5-10.1 [facility] Serum or plasma creatinine m easurement [...] 11-20-2023 Urea nitrogen [Mass/Vol] 17 mg/dL 7-18 [facility] Thin prep Papanicolaou smear with manual screeningOrdered By: Lesley Lopez on 11-20-2023 Thin prep Papanicolaou smear with manual screening 3 5-15 [facility] Basophil percentageOrdered B y: Katalina Torres on 11-04-2023 Chloride [Moles/Vol] 106 mmol/L 98-107 [facility] Glucose [Mass/Vol] 98 mg/dL 74-106 [facility] Potassium [Moles/Vol] 4.1 mmol/L 3.5-5.1 [facility] Sodium [Moles/Vol] 137 mmol/L 136-145 [facility] Laboratory - Chemistry and C hemistry - challengeOrdered By: Katalina Torres on 11-04-2023 CO2 [Moles/Vol] 30.0 mmol/L 21.0-32.0 [facility] Urea nitrogen/Creatinine [Mass ratio] 12.7 mg/mg 10-20 [facility] No Panel InformationOrdered By: Katalina Torres on 11-04-2023 Estimated GFR (MDRD) Amer 61 mL/min >60 [facility] Comment on above: GFR Calc Estimated GFR (MDRD) Non-Af Amer 51 mL/min >60 [facility] Comment on above: Non- GFR Calc Serum or plasma calcium inga urement (mass/volume)Ordered By: Katalina Torres on 11-04-2023 Calcium [Mass/Vol] 10.0 mg/dL 8.5-10.1 [facility] Serum or plasma creatinine m easurement [...] 11-04-2023 Urea nitrogen [Mass/Vol] 14 mg/dL 7-18 [facility] Thin prep Papanicolaou smear with manual screeningOrdered By: Katalina Torres on 11-04-2023 Thin prep Papanicolaou smear with manual screening 1 5-15 [facility] .Auto Diffon 11-01-2023 Basophil, Absolute 0.0 10 3/mcL Normal 0.0-0.2 [facility] ([place]) Comment on above: Performed By: #### C BC, GFR, A1C, ADIFF, CRP, TSH, CMP, ANEU, ESR #### [place] [address] [place], [place] [address] Basophils/100 WBC (Bld) 0.5 % Normal 0.0-2.5 [facility] ([place]) Comment on above: Performed By: #### C BC, GFR, A1C, ADIFF, CRP, TSH, CMP, ANEU, ESR #### [place] [address] [place], [place] [address] Eosinophil, Absolute 0.1 10 3/mcL Normal 0.0-0.4 [facility] ([place]) Comment on above: Performed By: #### C BC, GFR, A1C, ADIFF, CRP, TSH, CMP, ANEU, ESR #### [address] [address] Eosinophils/100 WBC (Bld) 1.2 % Normal 0.0-7.0 [facility] ([place]) Comment on above: Performed By: #### C BC, GFR, A1C, ADIFF, CRP, TSH, CMP, ANEU, ESR #### [address] [address] Lymphocyte, Absolute 2.9 10 3/mcL Normal 0.8-3.9 [facility] ([place]) Comment on above: Performed By: #### C BC, GFR, A1C, ADIFF, CRP, TSH, CMP, ANEU, ESR #### [address] [address] Lymphocytes/100 WBC (Bld) 37.6 % Normal 10.0-50.0 [facility] ([place]) Comment on above: Performed By: #### C BC, GFR, A1C, ADIFF, CRP, TSH, CMP, ANEU, ESR #### [address] [address] Monocyte, Absolute 0.3 10 3/mcL Normal 0.2-1.0 [facility] ([place]) Comment on above: Performed By: #### C BC, GFR, A1C, ADIFF, CRP, TSH, CMP, ANEU, ESR #### [address] [address] Monocytes/100 WBC (Bld) 4.2 % Normal 1.7-13.0 [facility] ([place]) Comment on above: Performed By: #### C BC, GFR, A1C, ADIFF, CRP, TSH, CMP, ANEU, ESR #### [address] [address] Neutrophils/100 WBC (Bld) 56.5 % Normal 37.0-80.0 [facility] ([place]) Comment on above: Performed By: #### C BC, GFR, A1C, ADIFF, CRP, TSH, CMP, ANEU, ESR #### [address] [address] .GFRon 11-01-2023 GFR 63 ml/min/1.73sqm Normal [facility] ([place]) Comment on above: Result Comment: GFR Population [...] ADIFF, CRP, TSH, CMP, ANEU, ESR #### [address] [address] GFR Non- 52 ml/min/1.73sqm Normal [facility] ([place]) Comment on above: Result Comment: GFR Population [...] ADIFF, CRP, TSH, CMP, ANEU, ESR #### [place] [address] [place], [place] [address] .NEUABSon 01-30-2024 Neutrophil, Absolute 4.4 10 3/mcL Normal 2.9-6.2 [facility] ([place]) Comment on above: Performed By: #### C BC, GFR, A1C, ADIFF, CRP, TSH, CMP, ANEU, ESR #### [address] [address] A1Con 11-01-2023 HbA1c (Bld) [Mass fraction] 5.9 % Normal 4.3-6.4 [facility] ([place]) Comment on above: Performed By: #### C BC, GFR, A1C, ADIFF, CRP, TSH, CMP, ANEU, ESR #### [address] [address] CBCon 11-01-2023 Erythrocyte distribution width (RBC) [Ratio] 15.4 % High 11.5-14.5 [facility] ([place]) Comment on above: Performed By: #### C BC, GFR, A1C, ADIFF, CRP, TSH, CMP, ANEU, ESR #### [place] [id number] Hematocrit (Bld) [Volume fraction] 39.7 % Normal 37.0-47.0 [facility] ([place]) Comment on above: Performed By: #### C BC, GFR, A1C, ADIFF, CRP, TSH, CMP, ANEU, ESR #### [address] [address] Hgb 13.3 G/dL Normal 12.0-16.0 [facility] ([place]) Comment on above: Performed By: #### C BC, GFR, A1C, ADIFF, CRP, TSH, CMP, ANEU, ESR #### [address] [address] MCH (RBC) [Entitic mass] 28.3 pg Normal 27.0-31.2 [facility] ([place]) Comment on above: Performed By: #### C BC, GFR, A1C, ADIFF, CRP, TSH, CMP, ANEU, ESR #### [place] [address] MCHC 33.6 G/dL Normal 33.0-37.0 [facility] ([place]) Comment on above: Performed By: #### C BC, GFR, A1C, ADIFF, CRP, TSH, CMP, ANEU, ESR #### [address] [address] MCV (RBC) [Entitic vol] 84.4 fL Normal 80.0-94.0 [facility] ([place]) Comment on above: Performed By: #### C BC, GFR, A1C, ADIFF, CRP, TSH, CMP, ANEU, ESR #### [address] [address] Platelet 251 10 3/mcL Normal 130-400 [facility] ([place]) Comment on above: Performed By: #### C BC, GFR, A1C, ADIFF, CRP, TSH, CMP, ANEU, ESR #### [address] [address] Platelet mean volume (Bld) [Entitic vol] 8.7 fL Normal 7.4-10.4 [facility] ([place]) Comment on above: Performed By: #### C BC, GFR, A1C, ADIFF, CRP, TSH, CMP, ANEU, ESR #### [address] [address] RBC 4.70 10 6/mcL Normal 4.20-5.40 [facility] ([place]) Comment on above: Performed By: #### C BC, GFR, A1C, ADIFF, CRP, TSH, CMP, ANEU, ESR #### [address] [address] WBC 7.7 10 3/mcL Normal 4.6-10.8 [facility] ([place]) Comment on above: Performed By: #### C BC, GFR, A1C, ADIFF, CRP, TSH, CMP, ANEU, ESR #### [address] [address] CMPon 11-01-2023 Albumin Level 3.3 G/dL Low 3.4-4.8 [facility] ([place]) Comment on above: Performed By: #### C BC, GFR, A1C, ADIFF, CRP, TSH, CMP, ANEU, ESR #### [address] [address] Albumin/Globulin [Mass ratio] 0.8 {ratio} Low 1.1-2.5 [facility] ([place]) Comment on above: Performed By: #### C BC, GFR, A1C, ADIFF, CRP, TSH, CMP, ANEU, ESR #### [address] [address] ALP [Catalytic activity/Vol] 108 U/L Normal 40-135 [facility] ([place]) Comment on above: Performed By: #### C BC, GFR, A1C, ADIFF, CRP, TSH, CMP, ANEU, ESR #### [place] [id number] ALT [Catalytic activity/Vol] 19 U/L Normal 14-59 [facility] ([place]) Comment on above: Performed By: #### C BC, GFR, A1C, ADIFF, CRP, TSH, CMP, ANEU, ESR #### [place] [id number] AST [Catalytic activity/Vol] 20 U/L Normal 10-40 [facility] ([place]) Comment on above: Performed By: #### C BC, GFR, A1C, ADIFF, CRP, TSH, CMP, ANEU, ESR #### [address] [address] Bili Total 0.4 mg/dL Normal 0.2-1.0 [facility] ([place]) Comment on above: Result Comment: Use of this assay is not recommended for patients undergoing treatment with eltrombopag due to the potential for falsely elevated results. Performed By: #### C BC, GFR, A1C, ADIFF, CRP, TSH, CMP, ANEU, ESR #### [address] [address] BUN/Creatinine Ratio 13 ratio Normal 7-27 [facility] ([place]) Comment on above: Performed By: #### C BC, GFR, A1C, ADIFF, CRP, TSH, CMP, ANEU, ESR #### [address] [address] Calcium [Mass/Vol] 10.0 mg/dL Normal 8.4-10.2 [facility] ([place]) Comment on above: Performed By: #### C BC, GFR, A1C, ADIFF, CRP, TSH, CMP, ANEU, ESR #### [address] [address] Chloride [Moles/Vol] 102 mmol/L Normal 98-107 [facility] ([place]) Comment on above: Performed By: #### C BC, GFR, A1C, ADIFF, CRP, TSH, CMP, ANEU, ESR #### [address] [address] CO2 [Moles/Vol] 30 mmol/L Normal 23-31 [facility] ([place]) Comment on above: Performed By: #### C BC, GFR, A1C, ADIFF, CRP, TSH, CMP, ANEU, ESR #### [place] [id number] Creatinine [Mass/Vol] 1.02 mg/dL Normal 0.55-1.02 [facility] ([place]) Comment on above: Performed By: #### C BC, GFR, A1C, ADIFF, CRP, TSH, CMP, ANEU, ESR #### [address] [address] Electrolyte Balance 9.0 mEq/L Normal 4.0-15.0 [facility] ([place]) Comment on above: Performed By: #### C BC, GFR, A1C, ADIFF, CRP, TSH, CMP, ANEU, ESR #### [address] [address] Globulin 4.3 G/dL Normal [facility] ([place]) Comment on above: Performed By: #### C BC, GFR, A1C, ADIFF, CRP, TSH, CMP, ANEU, ESR #### [address] [address] Glucose [Mass/Vol] 94 mg/dL Normal 83-110 [facility] ([place]) Comment on above: Performed By: #### C BC, GFR, A1C, ADIFF, CRP, TSH, CMP, ANEU, ESR #### [address] [address] Potassium [Moles/Vol] 4.3 mmol/L Normal 3.5-5.1 [facility] ([place]) Comment on above: Performed By: #### C BC, GFR, A1C, ADIFF, CRP, TSH, CMP, ANEU, ESR #### [address] [address] Sodium [Moles/Vol] 141 mmol/L Normal 136-145 [facility] ([place]) Comment on above: Performed By: #### C BC, GFR, A1C, ADIFF, CRP, TSH, CMP, ANEU, ESR #### [address] [address] Total Protein 7.6 G/dL Normal 6.4-8.2 [facility] ([place]) Comment on above: Performed By: #### C BC, GFR, A1C, ADIFF, CRP, TSH, CMP, ANEU, ESR #### [address] [address] Urea nitrogen [Mass/Vol] 13 mg/dL Normal 7-18 [facility] ([place]) Comment on above: Performed By: #### C BC, GFR, A1C, ADIFF, CRP, TSH, CMP, ANEU, ESR #### [address] [address] LIPIDon 11-01-2023 Cholesterol [Mass/Vol] 172 mg/dL Normal 0-200 [facility] ([place]) Comment on above: Result Comment: Chol esterol Reference Interval: Less than 200 Desirable 200-239 Borderline high risk 240 and above High risk Performed By: #### C BC, GFR, A1C, ADIFF, CRP, TSH, CMP, ANEU, ESR #### [address] [address] Cholesterol in HDL [Mass/Vol] 53 mg/dL Normal 40-60 [facility] ([place]) Comment on above: Performed By: #### C BC, GFR, A1C, ADIFF, CRP, TSH, CMP, ANEU, ESR #### [address] [address] Cholesterol in LDL [Mass/Vol] 97 mg/dL Normal 0-130 [facility] ([place]) Comment on above: Performed By: #### C BC, GFR, A1C, ADIFF, CRP, TSH, CMP, ANEU, ESR #### [place] [address] [place], [place] [address] Triglyceride [Mass/Vol] 111 mg/dL Normal 0-150 [facility] ([place]) Comment on above: Result Comment: Trig lyceride Reference Interval: Less than 150 Normal 150-199 Borderline high risk 200-499 High risk 500 or higher Very high risk Performed By: #### C BC, GFR, A1C, ADIFF, CRP, TSH, CMP, ANEU, ESR #### [place] [address] [place], [place] [address] Absolute lymphocyte countOrd ered By: Katalina Torres on 10-24-2023 Lymphocytes Auto (Unsp spec) [#/Vol] 2.52 10*3/uL 0.83-4.51 [facility] Automated lymphocyte count a s percentage of total leukocytesOrdered By: Katalina Torres on 10-24-2023 Lymphocytes/100 WBC Auto (Unsp spec) 40.4 % 19-41 [facility] Basophil percentageOrdered B y: Katalina Torres on 10-24-2023 Basophils/100 WBC (Bld) 0.6 % 0-1 [facility] Chloride [Moles/Vol] 108 mmol/L 98-107 [facility] Eosinophils/100 WBC (Bld) 2.6 % 0-5 [facility] Glucose [Mass/Vol] 118 mg/dL 74-106 [facility] Comment on above: Fasting Glucose resu lt from 100 to 125 mg/dL suggests IMPAIRED HOMEOSTASIS per A.D.A. criteria. Hemoglobin (Bld) [Mass/Vol] 12.0 g/dL 12.0-15.0 [facility] Monocytes/100 WBC (Bld) 6.4 % 0-10 [facility] Neutrophils (Bld) [#/Vol] 3.1 10*3/uL 2.0-7.7 [facility] Neutrophils/100 WBC (Bld) 49.8 % 47-70 [facility] Potassium [Moles/Vol] 4.0 mmol/L 3.5-5.1 [facility] Sodium [Moles/Vol] 141 mmol/L 136-145 [facility] WBC (Bld) [#/Vol] 6.2 10*3/uL 4.4-11.0 [facility] Determination of erythrocyte mean corpuscular volume (MCV)Ordered By: Katalina Torres on 10-24-2023 MCV (RBC) [Entitic vol] 88.1 fL 81-99 [facility] Erythrocyte distribution wid th ratioOrdered By: Katalina Torres on 10-24-2023 Erythrocyte distribution width (RBC) [Ratio] 13.7 % 11.6-14.6 [facility] Erythrocyte distribution wid th standard deviationOrdered By: Katalina Torres on 10-24-2023 Erythrocyte distribution width (RBC) [Entitic vol] 44.2 fL 35.1-43.9 [facility] Hematocrit Auto (Bld) [Volum e fraction]Ordered By: Katalina Torres on 10-24-2023 Hematocrit (Bld) [Volume fraction] 37.1 % 37-47 [facility] Immature granulocytes/100 WB C Auto (Bld)Ordered By: Katalina Torres on 10-24-2023 Immature granulocytes/100 WBC (Bld) 0.200 % 0.0-0.9 [facility] Comment on above: IG% - Immature Granu locytes (promyelocytes, myelocytes and metamyelocytes) > 1% indicates that a LEFT SHIFT is Present. Laboratory - Chemistry and C hemistry - challengeOrdered By: Katalina Torres on 10-24-2023 CO2 [Moles/Vol] 28.0 mmol/L 21.0-32.0 [facility] Natriuretic peptide B (Bld) [Mass/Vol] 144.8 pg/mL 0-100 [facility] Urea nitrogen/Creatinine [Mass ratio] 15.5 mg/mg 10-20 [facility] Laboratory - Hematology and Cell countsOrdered By: Katalina Torres on 10-24-2023 MCH (RBC) [Entitic mass] 28.5 pg 27.0-32.0 [facility] MCHC (RBC) [Mass/Vol] 32.3 g/dL 32-36 [facility] Nucleated RBC/100 WBC (Bld) [Ratio] 0 % 0-5 [facility] Platelets (Bld) [#/Vol] 212 10*3/uL 150-450 [facility] No Panel InformationOrdered By: Katalina Torres on 10-24-2023 Estimated GFR (MDRD) Amer 66 mL/min >60 [facility] Comment on above: GFR Calc Estimated GFR (MDRD) Non-Af Amer 55 mL/min >60 [facility] Comment on above: Non- GFR Calc Platelet mean volume Frank-Ec ker (Bld) [Entitic vol]Ordered By: Katalina Torres on 10-24-2023 Platelet mean volume (Bld) [Entitic vol] 10.6 fL 6.2-12.0 [facility] RBC Auto (Bld) [#/Vol]Ordere d By: Katalina Torres on 10-24-2023 RBC (Bld) [#/Vol] 4.21 10*6/uL 4.2-5.4 [facility] Serum or plasma calcium inga urement (mass/volume)Ordered By: Katalina Torres on 10-24-2023 Calcium [Mass/Vol] 9.6 mg/dL 8.5-10.1 [facility] Serum or plasma creatinine m easurement [...] 10-24-2023 Urea nitrogen [Mass/Vol] 16 mg/dL 7-18 [facility] Thin prep Papanicolaou smear with manual screeningOrdered By: Katalina Torres on 10-24-2023 Thin prep Papanicolaou smear with manual screening 5 5-[address] [facility] [address] ABDOMEN/PELVIS W/CONTRAST on 09-23-2023 CT ABDOMEN/PELVIS W/CONTRAST ORIGINAL EXAMINATION: CT OF THE ABDOMEN AND PELVIS WITH [id number]/21/2023 11:28 am TECHNIQUE: CT of the abdomen [...] 09/23/2023 7:56:38 AM Ordering Provider: ROSALIND RUBALCAVA Normal [facility] ([place]) .GFRon 09-22-2023 GFR 60 ml/min/1.73sqm Normal [facility] ([place]) Comment on above: Result Comment: GFR Population [...] ADIFF, CRP, TSH, CMP, ANEU, ESR #### [address] [address] GFR Non- 50 ml/min/1.73sqm Normal [facility] ([place]) Comment on above: Result Comment: GFR Population [...] ADIFF, CRP, TSH, CMP, ANEU, ESR #### [address] [address] CREon 09-22-2023 Creatinine [Mass/Vol] 1.06 mg/dL High 0.55-1.02 [facility] ([place]) Comment on above: Performed By: #### C BC, GFR, A1C, ADIFF, CRP, TSH, CMP, ANEU, ESR #### [address] [address] Absolute lymphocyte countOrd ered By: Judson Hernandez on 08-15-2023 Lymphocytes Auto (Unsp spec) [#/Vol] 2.44 10*3/uL 0.83-4.51 [facility] Basophil percentageOrdered B y: Judson Hernandez on 08-15-2023 Basophil percentage 91 mg/dL 74-106 [facility] Basophil percentage 144 mmol/L 136-145 [facility] Basophil percentage 3.5 mmol/L 3.5-5.1 [facility] Basophil percentage 113 mmol/L 98-107 [facility] Basophils (Bld) [#/Vol] 10.1 10*3/uL 4.4-11.0 [facility] Basophils (Bld) [#/Vol] 7.0 10*3/uL 2.0-7.7 [facility] Basophils/100 WBC (Bld) 69.3 % 47-70 [facility] Basophils/100 WBC (Bld) 1.2 % 0-5 [facility] Basophils/100 WBC (Bld) 0.3 % 0-1 [facility] Chloride [Moles/Vol] 113 mmol/L 98-107 [facility] Eosinophils/100 WBC (Bld) 1.2 % 0-5 [facility] Glucose [Mass/Vol] 91 mg/dL 74-106 [facility] Neutrophils (Bld) [#/Vol] 7.0 10*3/uL 2.0-7.7 [facility] Neutrophils/100 WBC (Bld) 69.3 % 47-70 [facility] Potassium [Moles/Vol] 3.5 mmol/L 3.5-5.1 [facility] Sodium [Moles/Vol] 144 mmol/L 136-145 [facility] WBC (Bld) [#/Vol] 10.1 10*3/uL 4.4-11.0 [facility] Blood erythrocytes count (nu mber/volume)Ordered By: Judson Hernandez on 08-15-2023 RBC (Bld) [#/Vol] 3.61 10*6/uL 4.2-5.4 [facility] Blood hemoglobin measurement (mass/volume)Ordered By: Judson Hernandez on 08-15-2023 Hemoglobin (Bld) [Mass/Vol] 10.5 g/dL 12.0-15.0 [facility] Blood lymphocytes/100 leukoc ytesOrdered By: Judson Hernandez on 08-15-2023 Lymphocytes/100 WBC (Bld) 24.2 % 19-41 [facility] Blood monocytes/100 leukocyt esOrdered By: Judson Hernandez on 08-15-2023 Monocytes/100 WBC (Bld) 4.8 % 0-10 [facility] Blood platelet mean volumeOr dered By: Judson Hernandez on 08-15-2023 Platelet mean volume (Bld) [Entitic vol] 9.6 fL 6.2-12.0 [facility] Determination of erythrocyte mean corpuscular volume (MCV)Ordered By: Judson Hernandez on 08-15-2023 MCV (RBC) [Entitic vol] 93.4 fL 81-99 [facility] Glucose Glucometer (dC) [M ass/Vol]Ordered By: Cirilo Fine on 08-15-2023 Glucose [Mass/Vol] 181 mg/dL 74-106 [facility] Comment on above: MANAGEMENT OF PATIEN T CARE PER NURSING PROTOCOL Hematocrit Auto (Bld) [Volum e fraction]Ordered By: Judson Hernandez on 08-15-2023 Hematocrit (Bld) [Volume fraction] 33.7 % 37-47 [facility] Laboratory - Chemistry and C hemistry - challengeOrdered By: Judson Hernandez on 08-15-2023 CO2 [Moles/Vol] 29.0 mmol/L 21.0-32.0 [facility] Urea nitrogen/Creatinine [Mass ratio] 12.9 mg/mg 10-20 [facility] Laboratory - Hematology and Cell countsOrdered By: Judson Hernandez on 08-15-2023 Erythrocyte distribution width (RBC) [Entitic vol] 43.9 fL 35.1-43.9 [facility] Erythrocyte distribution width (RBC) [Ratio] 12.9 % 11.6-14.6 [facility] Immature granulocytes/100 WBC (Bld) 0.200 % 0.0-0.9 [facility] Comment on above: IG% - Immature Granu locytes (promyelocytes, myelocytes and metamyelocytes) > 1% indicates that a LEFT SHIFT is Present. MCH (RBC) [Entitic mass] 29.1 pg 27.0-32.0 [facility] Nucleated RBC/100 WBC (Bld) [Ratio] 0 % 0-5 [facility] MCHC Auto (RBC) [Mass/Vol]Or dered By: Judson Hernandez on 08-15-2023 MCHC (RBC) [Mass/Vol] 31.2 g/dL 32-36 [facility] No Panel InformationOrdered By: Judson Hernandez on 08-15-2023 Estimated Creatinine Clearance Calc 40.58 ml/min [facility] Estimated GFR (MDRD) Amer 82 mL/min >60 [facility] Comment on above: GFR Calc Estimated GFR (MDRD) Non-Af Amer 68 mL/min >60 [facility] Comment on above: Non- GFR Calc 29.1 pg 27.0-32.0 [facility] 12.9 % 11.6-14.6 [facility] 43.9 fl 35.1-43.9 [facility] 0.200 % 0.0-0.9 [facility] 0 % 0-5 [facility] 68 mL/min >60 [facility] 82 mL/min >60 [facility] 40.58 ml/min [facility] 12.9 RATIO 10-20 [facility] 29.0 mmol/L 21.0-32.0 [facility] Platelets bldOrdered By: Cristian Hernandez on 08-15-2023 Platelets (Bld) [#/Vol] 241 10*3/uL 150-450 [facility] Serum or plasma calcium inga urement (mass/volume)Ordered By: Judson Hernandez on 08-15-2023 Calcium [Mass/Vol] 8.5 mg/dL 8.5-10.1 [facility] Serum or plasma creatinine m easurement [...] 08-15-2023 Urea nitrogen [Mass/Vol] 11 mg/dL 7-18 [facility] Thin prep Papanicolaou smear with manual screeningOrdered By: Judson Hernandez on 08-15-2023 Thin prep Papanicolaou smear with manual screening 2 5-15 [facility] Absolute lymphocyte countOrd ered By: Enrrique Eric on 08-14-2023 Lymphocytes Auto (Unsp spec) [#/Vol] 0.89 10*3/uL 0.83-4.51 [facility] Basophil percentageOrdered B y: Enrrique Eric on 08-14-2023 Basophil percentage 0 SEEN /hpf 0-5 [facility] Basophil percentage 209 mg/dL 74-106 [facility] Basophil percentage 7.6 g/dL 6.4-8.2 [facility] Basophil percentage 0.50 mg/dL 0.20-1.00 [facility] Basophil percentage 138 mmol/L 136-145 [facility] Basophil percentage 3.5 mmol/L 3.5-5.1 [facility] Basophil percentage 105 mmol/L 98-107 [facility] Basophil percentage 1.8 mmol/L 0.4-2.0 [facility] Basophils (Bld) [#/Vol] 12.5 10*3/uL 4.4-11.0 [facility] Basophils (Bld) [#/Vol] 11.0 10*3/uL 2.0-7.7 [facility] Basophils/100 WBC (Bld) 88.1 % 47-70 [facility] Basophils/100 WBC (Bld) 0.2 % 0-5 [facility] Basophils/100 WBC (Bld) 0.3 % 0-1 [facility] Bilirubin [Mass/Vol] 0.50 mg/dL 0.20-1.00 [facility] Comment on above: For patients on eltr ombopag therapy, use of Dimension [place] TBIL is not recommended. Lactate [Moles/Vol] 1.8 mmol/L 0.4-2.0 [facility] Protein [Mass/Vol] 7.6 g/dL 6.4-8.2 [facility] Bilirubin Test strip Ql (U)O rdered By: Enrrique Eric on 08-14-2023 Bilirubin Ql (U) Negative Negative [facility] Blood erythrocytes count (nu mber/volume)Ordered By: Enrrique Eric on 08-14-2023 RBC (Bld) [#/Vol] 4.77 10*6/uL 4.2-5.4 [facility] Blood hemoglobin measurement (mass/volume)Ordered By: Enrrique Eric on 08-14-2023 Hemoglobin (Bld) [Mass/Vol] 13.9 g/dL 12.0-15.0 [facility] Blood lymphocytes/100 leukoc ytesOrdered By: Enrrique Eric on 08-14-2023 Lymphocytes/100 WBC (Bld) 7.1 % 19-41 [facility] Blood monocytes/100 leukocyt esOrdered By: Enrrique Eric on 08-14-2023 Monocytes/100 WBC (Bld) 3.7 % 0-10 [facility] Blood platelet mean volumeOr dered By: Enrrique Eric on 08-14-2023 Platelet mean volume (Bld) [Entitic vol] 10.0 fL 6.2-12.0 [facility] Determination of erythrocyte mean corpuscular volume (MCV)Ordered By: Enrrique Eric on 08-14-2023 MCV (RBC) [Entitic vol] 89.7 fL 81-99 [facility] Direct bilirubinOrdered By: Enrrique Eric on 08-14-2023 Bilirubin.direct [Mass/Vol] 0.07 mg/dL 0.00-0.30 [facility] Hematocrit Auto (Bld) [Volum e fraction]Ordered By: Enrrique Eric on 08-14-2023 Hematocrit (Bld) [Volume fraction] 42.8 % 37-47 [facility] INR in Blood by Coagulation assayOrdered By: Enrrique Eric on 08-14-2023 INR Coag (Bld) [Relative time] 1.3 {INR} [facility] Influenza virus A and B and SARS-CoV-2 (COVID-19) Ag panel - Upper respiratory specimOrdered By: Enrrique Eric on 08-14-2023 SARS-CoV-2 (COVID-19) RNA PACHECO+probe Ql (Resp) [facility] Ketones Test strip Ql (U)Ord ered By: Enrrique Eric on 08-14-2023 Ketones Ql (U) 5 mg/dl Negative [facility] Laboratory - Chemistry and C hemistry - challengeOrdered By: Enrrique Eric on 08-14-2023 ALP [Catalytic activity/Vol] 98 U/L 45-117 [facility] ALT [Catalytic activity/Vol] 14 U/L 13-56 [facility] Globulin (S) [Mass/Vol] 4.8 g/dL 2.2-4.2 [facility] Lipase [Catalytic activity/Vol] 17 U/L 13-75 [facility] Comment on above: Please note:LIPASE r evised reference range effective 23. New Lipase methodology. Expected to produce lower values than the previous assay method. NEW Reference Range: 13 - 75 U/L Laboratory - CoagulationOrde red By: Enrrique Eric on 08-14-2023 aPTT Coag (Bld) [Time] 28.7 s 24.1-36.[address] [facility] PT Coag (PPP) [Time] 16.3 s 11.7-14.9 [facility] Laboratory - Microbiology an d Antimicrobial susceptibilityOrdered By: Enrrique Eric on 08-14-2023 Bacteria identified Cx Nom (Bld) No growth in 5 days. [facility] MCHC Auto (RBC) [Mass/Vol]Or dered By: Enrrique Eric on 08-14-2023 MCHC (RBC) [Mass/Vol] 32.5 g/dL 32-36 [facility] Mucus LM Ql (Urine sed)Order ed By: Enrrique Eric on 08-14-2023 Mucus Ql (Urine sed) 0 SEEN /hpf [facility] Nitrite Test strip Ql (U)Ord ered By: Enrrique Eric on 08-14-2023 Nitrite Ql (U) Negative Negative [facility] No Panel InformationOrdered By: Enrrique Eric on 08-14-2023 29.1 pg 27.0-32.0 [facility] 12.5 % 11.6-14.6 [facility] 41.1 fl 35.1-43.9 [facility] 0.600 % 0.0-0.9 [facility] 0 % 0-5 [facility] 16.3 SECONDS 11.7-14.9 [facility] 28.7 Seconds 24.1-36.2 [facility] 58 mL/min >60 [facility] 70 mL/min >60 [facility] 11.2 RATIO 10-20 [facility] 4.8 g/dL 2.2-4.2 [facility] 17 U/L 13-75 [facility] 98 U/L 45-117 [facility] 14 U/L 13-56 [facility] 27.0 mmol/L 21.0-32.0 [facility] Platelets bldOrdered By: Yvon Eric on 08-14-2023 Platelets (Bld) [#/Vol] 294 10*3/uL 150-450 [facility] Protein Test strip Ql (U)Ord ered By: Enrrique Eric on 08-14-2023 Protein Ql (U) 30 mg/dl Negative [facility] Serum or plasma albumin inga urement (mass/volume)Ordered By: Enrrique Eric on 08-14-2023 Albumin [Mass/Vol] 2.8 g/dL 3.2-5.0 [facility] Serum or plasma calcium inga urement (mass/volume)Ordered By: Enrrique Eric on 08-14-2023 Calcium [Mass/Vol] 9.2 mg/dL 8.5-10.1 [facility] Serum or plasma creatinine m easurement (mass/volume)Ordered By: Enrrique Eric on 08-14-2023 Creatinine [Mass/Vol] 0.98 mg/dL 0.55-1.02 [facility] Serum or plasma urea nitroge n measurement (mass/volume)Ordered By: Enrrique Eric on 08-14-2023 Urea nitrogen [Mass/Vol] 11 mg/dL 7-18 [facility] Squamous epithelial cells de tection in urine sediment by light microscopyOrdered By: Enrrique Eric on 08-14-2023 Epithelial cells.squamous LM Ql (Urine sed) 0 SEEN /hpf 5-10 [facility] Stool enteric pathogen panel by probe and target amplification methodOrdered By: Judson Hernandez on 08-14-2023 Gastrointestinal pathogens panel PACHECO+probe (Stl) [facility] Thin prep Papanicolaou smear with manual screeningOrdered By: Enrrique Eric on 08-14-2023 Thin prep Papanicolaou smear with manual screening 22 U/L 15-37 [facility] Comment on above: Moderate Hemolysis, Result may be falsely increased. Thin prep Papanicolaou smear with manual screening 6 5-15 [facility] Upper respiratory specimen i nfluenza A virus, influenza B virus, and severe acute respiratory syndromOrdered By: Enrrique Eric on 08-14-2023 Upper respiratory specimen influenza A virus, influenza B virus, and severe acute respiratory syndrom [facility] Urine blood detectionOrdered By: Enrrique Eric on 08-14-2023 RBC Ql (U) 25 /ul Negative [facility] RBC Ql (U) 0 SEEN /hpf 0-5 [facility] Urine clarityOrdered By: Yvon Eric on 08-14-2023 Clarity (U) Clear Clear [facility] Urine color determinationOrd ered By: Enrrique Eric on 08-14-2023 Color (U) Yellow Yellow [facility] Urine glucose detectionOrder ed By: Enrrique Eric on 08-14-2023 Glucose Ql (U) 100 mg/dl Normal [facility] Urine leukocyte esterase det ection by dipstickOrdered By: Enrrique Eric on 08-14-2023 Leukocyte esterase Test strip Ql (U) Negative Negative [facility] Urine pHOrdered By: Enrrique horan on 08-14-2023 pH (U) 6.0 [pH] 5.0 - 8.0 [facility] Urine sediment bacteria coun t by microscopy (number/high power field)Ordered By: Enrrique Eric on 08-14-2023 Bacteria LM.HPF (Urine sed) [#/Area] 0 /[HPF] None Seen [facility] Urine specific gravity measu rementOrdered By: Enrrique Eric on 08-14-2023 Specific gravity (U) [Rel density] 1.020 1.002-1.030 [facility] Urobilinogen Auto test strip Ql (U)Ordered By: Enrrique Eric on 08-14-2023 Urobilinogen Ql (U) Normal mg/dl Normal [facility] No Panel Informationon 08-09 Culture Urine >100,000 cfu/ml Multiple bacterial morphotypes present. Probable Contamination. Suggest recollection if clinically indicated. [facility] Work Phone: .Auto Diffon 08-04-2023 Basophil, Absolute 0.1 10 3/mcL Normal 0.0-0.2 [facility] ([place]) Comment on above: Performed By: #### C BC, GFR, A1C, ADIFF, CRP, TSH, CMP, ANEU, ESR #### [address] [address] Basophils/100 WBC (Bld) 0.7 % Normal 0.0-2.5 [facility] ([place]) Comment on above: Performed By: #### C BC, GFR, A1C, ADIFF, CRP, TSH, CMP, ANEU, ESR #### [address] [address] Eosinophil, Absolute 0.3 10 3/mcL Normal 0.0-0.4 [facility] ([place]) Comment on above: Performed By: #### C BC, GFR, A1C, ADIFF, CRP, TSH, CMP, ANEU, ESR #### [address] [address] Eosinophils/100 WBC (Bld) 4.2 % Normal 0.0-7.0 [facility] [facility] Comment on above: Performed By: #### C BC, GFR, A1C, ADIFF, CRP, TSH, CMP, ANEU, ESR #### [address] [address] Lymphocyte, Absolute 2.2 10 3/mcL Normal 0.8-3.9 [facility] ([place]) Comment on above: Performed By: #### C BC, GFR, A1C, ADIFF, CRP, TSH, CMP, ANEU, ESR #### [address] [address] Lymphocytes/100 WBC (Bld) 28.9 % Normal 10.0-50.0 [facility] ([place]) Comment on above: Performed By: #### C BC, GFR, A1C, ADIFF, CRP, TSH, CMP, ANEU, ESR #### [address] [address] Monocyte, Absolute 0.4 10 3/mcL Normal 0.2-1.0 [facility] ([place]) Comment on above: Performed By: #### C BC, GFR, A1C, ADIFF, CRP, TSH, CMP, ANEU, ESR #### [address] [address] Monocytes/100 WBC (Bld) 5.1 % Normal 1.7-13.0 [facility] ([place]) Comment on above: Performed By: #### C BC, GFR, A1C, ADIFF, CRP, TSH, CMP, ANEU, ESR #### [address] [address] Neutrophils/100 WBC (Bld) 61.1 % Normal 37.0-80.0 [facility] ([place]) Comment on above: Performed By: #### C BC, GFR, A1C, ADIFF, CRP, TSH, CMP, ANEU, ESR #### [address] [address] .GFRon 08-04-2023 GFR 62 ml/min/1.73sqm Normal [facility] ([place]) Comment on above: Result Comment: GFR Population [...] ADIFF, CRP, TSH, CMP, ANEU, ESR #### [address] [address] GFR Non- 51 ml/min/1.73sqm Normal [facility] ([place]) Comment on above: Result Comment: GFR Population [...] ADIFF, CRP, TSH, CMP, ANEU, ESR #### [address] [address] .NEUABSon 08-04-2023 Neutrophil, Absolute 4.6 10 3/mcL Normal 2.9-6.2 [facility] ([place]) Comment on above: Performed By: #### C BC, GFR, A1C, ADIFF, CRP, TSH, CMP, ANEU, ESR #### [address] [address] A1Con 08-04-2023 HbA1c (Bld) [Mass fraction] 5.8 % Normal 4.3-6.4 [facility] ([place]) Comment on above: Performed By: #### C BC, GFR, A1C, ADIFF, CRP, TSH, CMP, ANEU, ESR #### [address] [address] CBCon 08-04-2023 Erythrocyte distribution width (RBC) [Ratio] 13.5 % Normal 11.5-14.5 [facility] ([place]) Comment on above: Performed By: #### C BC, GFR, A1C, ADIFF, CRP, TSH, CMP, ANEU, ESR #### [address] [address] Hematocrit (Bld) [Volume fraction] 36.2 % Low 37.0-47.0 [facility] ([place]) Comment on above: Performed By: #### C BC, GFR, A1C, ADIFF, CRP, TSH, CMP, ANEU, ESR #### [address] [address] Hgb 12.2 G/dL Normal 12.0-16.0 [facility] ([place]) Comment on above: Performed By: #### C BC, GFR, A1C, ADIFF, CRP, TSH, CMP, ANEU, ESR #### [address] [address] MCH (RBC) [Entitic mass] 29.3 pg Normal 27.0-31.2 [facility] ([place]) Comment on above: Performed By: #### C BC, GFR, A1C, ADIFF, CRP, TSH, CMP, ANEU, ESR #### [place] [id number] MCHC 33.6 G/dL Normal 33.0-37.0 [facility] ([place]) Comment on above: Performed By: #### C BC, GFR, A1C, ADIFF, CRP, TSH, CMP, ANEU, ESR #### [place] [id number] MCV (RBC) [Entitic vol] 87.3 fL Normal 80.0-94.0 [facility] ([place]) Comment on above: Performed By: #### C BC, GFR, A1C, ADIFF, CRP, TSH, CMP, ANEU, ESR #### [address] [address] Platelet 303 10 3/mcL Normal 130-400 [facility] ([place]) Comment on above: Performed By: #### C BC, GFR, A1C, ADIFF, CRP, TSH, CMP, ANEU, ESR #### [address] [address] Platelet mean volume (Bld) [Entitic vol] 8.0 fL Normal 7.4-10.4 [facility] ([place]) Comment on above: Performed By: #### C BC, GFR, A1C, ADIFF, CRP, TSH, CMP, ANEU, ESR #### [address] [address] RBC 4.15 10 6/mcL Low 4.20-5.40 [facility] ([place]) Comment on above: Performed By: #### C BC, GFR, A1C, ADIFF, CRP, TSH, CMP, ANEU, ESR #### [address] [address] WBC 7.5 10 3/mcL Normal 4.6-10.8 [facility] ([place]) Comment on above: Performed By: #### C BC, GFR, A1C, ADIFF, CRP, TSH, CMP, ANEU, ESR #### [address] [address] CMPon 08-04-2023 Albumin Level 2.9 G/dL Low 3.4-4.8 [facility] ([place]) Comment on above: Performed By: #### C BC, GFR, A1C, ADIFF, CRP, TSH, CMP, ANEU, ESR #### [address] [address] Albumin/Globulin [Mass ratio] 0.7 {ratio} Low 1.1-2.5 [facility] ([place]) Comment on above: Performed By: #### C BC, GFR, A1C, ADIFF, CRP, TSH, CMP, ANEU, ESR #### [address] [address] ALP [Catalytic activity/Vol] 113 U/L Normal 40-135 [facility] ([place]) Comment on above: Performed By: #### C BC, GFR, A1C, ADIFF, CRP, TSH, CMP, ANEU, ESR #### [address] [address] ALT [Catalytic activity/Vol] 15 U/L Normal 14-59 [facility] ([place]) Comment on above: Performed By: #### C BC, GFR, A1C, ADIFF, CRP, TSH, CMP, ANEU, ESR #### [address] [address] AST [Catalytic activity/Vol] 16 U/L Normal 10-40 [facility] ([place]) Comment on above: Performed By: #### C BC, GFR, A1C, ADIFF, CRP, TSH, CMP, ANEU, ESR #### [address] [address] Bili Total 0.4 mg/dL Normal 0.2-1.0 [facility] ([place]) Comment on above: Result Comment: Use of this assay is not recommended for patients undergoing treatment with eltrombopag due to the potential for falsely elevated results. Performed By: #### C BC, GFR, A1C, ADIFF, CRP, TSH, CMP, ANEU, ESR #### [address] [address] BUN/Creatinine Ratio 12 ratio Normal 7-27 [facility] ([place]) Comment on above: Performed By: #### C BC, GFR, A1C, ADIFF, CRP, TSH, CMP, ANEU, ESR #### [address] [address] Calcium [Mass/Vol] 9.4 mg/dL Normal 8.4-10.2 [facility] ([place]) Comment on above: Performed By: #### C BC, GFR, A1C, ADIFF, CRP, TSH, CMP, ANEU, ESR #### [address] [address] Chloride [Moles/Vol] 107 mmol/L Normal 98-107 [facility] ([place]) Comment on above: Performed By: #### C BC, GFR, A1C, ADIFF, CRP, TSH, CMP, ANEU, ESR #### [address] [address] CO2 [Moles/Vol] 26 mmol/L Normal 23-31 [facility] ([place]) Comment on above: Performed By: #### C BC, GFR, A1C, ADIFF, CRP, TSH, CMP, ANEU, ESR #### [address] [address] Creatinine [Mass/Vol] 1.04 mg/dL High 0.55-1.02 [facility] ([place]) Comment on above: Performed By: #### C BC, GFR, A1C, ADIFF, CRP, TSH, CMP, ANEU, ESR #### [address] [address] Electrolyte Balance 13.0 mEq/L Normal 4.0-15.0 [facility] ([place]) Comment on above: Performed By: #### C BC, GFR, A1C, ADIFF, CRP, TSH, CMP, ANEU, ESR #### [address] [address] Globulin 4.3 G/dL Normal [facility] ([place]) Comment on above: Performed By: #### C BC, GFR, A1C, ADIFF, CRP, TSH, CMP, ANEU, ESR #### [address] [address] Glucose [Mass/Vol] 111 mg/dL High 83-110 [facility] ([place]) Comment on above: Performed By: #### C BC, GFR, A1C, ADIFF, CRP, TSH, CMP, ANEU, ESR #### [address] [address] Potassium [Moles/Vol] 3.6 mmol/L Normal 3.5-5.1 [facility] ([place]) Comment on above: Performed By: #### C BC, GFR, A1C, ADIFF, CRP, TSH, CMP, ANEU, ESR #### [address] [address] Sodium [Moles/Vol] 146 mmol/L High 136-145 [facility] ([place]) Comment on above: Performed By: #### C BC, GFR, A1C, ADIFF, CRP, TSH, CMP, ANEU, ESR #### [address] [address] Total Protein 7.2 G/dL Normal 6.4-8.2 [facility] ([place]) Comment on above: Performed By: #### C BC, GFR, A1C, ADIFF, CRP, TSH, CMP, ANEU, ESR #### [address] [address] Urea nitrogen [Mass/Vol] 13 mg/dL Normal 7-18 [facility] ([place]) Comment on above: Performed By: #### C BC, GFR, A1C, ADIFF, CRP, TSH, CMP, ANEU, ESR #### [address] [address] FT4on 08-04-2023 Free T4 [Mass/Vol] 1.12 ng/dL Normal 0.76-1.46 [facility] ([place]) Comment on above: Performed By: #### C BC, GFR, A1C, ADIFF, CRP, TSH, CMP, ANEU, ESR #### [address] [address] LIPIDon 08-04-2023 Cholesterol [Mass/Vol] 165 mg/dL Normal 0-200 [facility] ([place]) Comment on above: Result Comment: Chol esterol Reference Interval: Less than 200 Desirable 200-239 Borderline high risk 240 and above High risk Performed By: #### C BC, GFR, A1C, ADIFF, CRP, TSH, CMP, ANEU, ESR #### [address] [address] Cholesterol in HDL [Mass/Vol] 54 mg/dL Normal 40-60 [facility] ([place]) Comment on above: Performed By: #### C BC, GFR, A1C, ADIFF, CRP, TSH, CMP, ANEU, ESR #### [address] [address] Cholesterol in LDL [Mass/Vol] 94 mg/dL Normal 0-130 [facility] ([place]) Comment on above: Performed By: #### C BC, GFR, A1C, ADIFF, CRP, TSH, CMP, ANEU, ESR #### [address] [address] Triglyceride [Mass/Vol] 84 mg/dL Normal 0-150 [facility] ([place]) Comment on above: Result Comment: Trig lyceride Reference Interval: Less than 150 Normal 150-199 Borderline high risk 200-499 High risk 500 or higher Very high risk Performed By: #### C BC, GFR, A1C, ADIFF, CRP, TSH, CMP, ANEU, ESR #### [place] [address] [place], [place] [address] TSHon 08-04-2023 TSH Qn 2.48 m[IU]/L Normal 0.36-3.74 [facility] ([place]) Comment on above: Performed By: #### C BC, GFR, A1C, ADIFF, CRP, TSH, CMP, ANEU, ESR #### [place] [address] [place], [place] [address] Glucose Glucometer (BldC) [M ass/Vol]Ordered By: Senthil Ortiz on 06-10-2023 Glucose [Mass/Vol] 107 mg/dL 74-106 [facility] Comment on above: MANAGEMENT OF PATIEN T CARE PER NURSING PROTOCOL Absolute lymphocyte countOrd ered By: Senthil Ortiz on 06-08-2023 Lymphocytes Auto (Unsp spec) [#/Vol] 6.05 10*3/uL 0.83-4.51 [facility] Basophil percentageOrdered B y: Senthil Ortiz on 06-08-2023 Basophil percentage 103 mg/dL 74-106 [facility] Basophil percentage 139 mmol/L 136-145 [facility] Basophil percentage 3.5 mmol/L 3.5-5.1 [facility] Basophil percentage 109 mmol/L 98-107 [facility] Basophils (Bld) [#/Vol] 11.0 10*3/uL 4.4-11.0 [facility] Basophils (Bld) [#/Vol] 4.3 10*3/uL 2.0-7.7 [facility] Basophils/100 WBC (Bld) 0.3 % 0-1 [facility] Basophils/100 WBC (Bld) 39.0 % 47-70 [facility] Basophils/100 WBC (Bld) 1.0 % 0-5 [facility] Chloride [Moles/Vol] 109 mmol/L 98-107 [facility] Eosinophils/100 WBC (Bld) 1.0 % 0-5 [facility] Glucose [Mass/Vol] 103 mg/dL 74-106 [facility] Comment on above: Fasting Glucose resu lt from 100 to 125 mg/dL suggests IMPAIRED HOMEOSTASIS per A.D.A. criteria. Neutrophils (Bld) [#/Vol] 4.3 10*3/uL 2.0-7.7 [facility] Neutrophils/100 WBC (Bld) 39.0 % 47-70 [facility] Potassium [Moles/Vol] 3.5 mmol/L 3.5-5.1 [facility] Sodium [Moles/Vol] 139 mmol/L 136-145 [facility] WBC (Bld) [#/Vol] 11.0 10*3/uL 4.4-11.0 [facility] Blood erythrocytes count (nu mber/volume)Ordered By: Senthil Ortiz on 06-08-2023 RBC (Bld) [#/Vol] 4.40 10*6/uL 4.2-5.4 [facility] Blood hemoglobin measurement (mass/volume)Ordered By: Senthil Ortiz on 06-08-2023 Hemoglobin (Bld) [Mass/Vol] 13.4 g/dL 12.0-15.0 [facility] Blood lymphocytes/100 leukoc ytesOrdered By: Senthil Ortiz on 06-08-2023 Lymphocytes/100 WBC (Bld) 55.0 % 19-41 [facility] Blood monocytes/100 leukocyt esOrdered By: Senthil Ortiz on 06-08-2023 Monocytes/100 WBC (Bld) 4.5 % 0-10 [facility] Blood platelet mean volumeOr dered By: Senthil Ortiz on 06-08-2023 Platelet mean volume (Bld) [Entitic vol] 9.4 fL 6.2-12.0 [facility] Determination of erythrocyte mean corpuscular volume (MCV)Ordered By: Senthil Ortiz on 06-08-2023 MCV (RBC) [Entitic vol] 91.4 fL 81-99 [facility] Hematocrit Auto (Bld) [Volum e fraction]Ordered By: Senthil Ortiz on 06-08-2023 Hematocrit (Bld) [Volume fraction] 40.2 % 37-47 [facility] Laboratory - Chemistry and C hemistry - challengeOrdered By: Senthil Ortiz on 06-08-2023 CO2 [Moles/Vol] 23.0 mmol/L 21.0-32.0 [facility] Urea nitrogen/Creatinine [Mass ratio] 19.3 mg/mg 10- [facility] - Hematology and Cell countsOrdered By: Senthil Ortiz on 06-08-2023 Erythrocyte distribution width (RBC) [Entitic vol] 45.3 fL 35.1-43.9 [facility] Erythrocyte distribution width (RBC) [Ratio] 13.5 % 11.6-14.6 [facility] Immature granulocytes/100 WBC (Bld) 0.200 % 0.0-0.9 [facility] Comment on above: IG% - Immature Granu locytes (promyelocytes, myelocytes and metamyelocytes) > 1% indicates that a LEFT SHIFT is Present. MCH (RBC) [Entitic mass] 30.5 pg 27.0-32.0 [facility] Nucleated RBC/100 WBC (Bld) [Ratio] 0 % 0-5 [facility] MCHC Auto (RBC) [Mass/Vol]Or dered By: Senthil Ortiz on 06-08-2023 MCHC (RBC) [Mass/Vol] 33.3 g/dL 32-36 [facility] No Panel InformationOrdered By: Senthil Ortiz on 06-08-2023 Estimated Creatinine Clearance Calc 31.13 ml/min [facility] Estimated GFR (MDRD) Amer 59 mL/min >60 [facility] Comment on above: GFR Calc Estimated GFR (MDRD) Non-Af Amer 49 mL/min >60 [facility] Comment on above: Non- GFR Calc 30.5 pg 27.0-32.0 [facility] 13.5 % 11.6-14.6 [facility] 45.3 fl 35.1-43.9 [facility] 0.200 % 0.0-0.9 [facility] 0 % 0-5 [facility] 49 mL/min >60 [facility] 59 mL/min >60 [facility] 31.13 ml/min [facility] 19.3 RATIO 10-20 [facility] 23.0 mmol/L 21.0-32.0 [facility] Platelets bldOrdered By: Senthil Ortiz on 06-08-2023 Platelets (Bld) [#/Vol] 374 10*3/uL 150-450 [facility] Serum or plasma calcium inga urement (mass/volume)Ordered By: Senthil Ortiz on 06-08-2023 Calcium [Mass/Vol] 9.5 mg/dL 8.5-10.1 [facility] Serum or plasma creatinine m easurement [...] 06-08-2023 Urea nitrogen [Mass/Vol] 22 mg/dL 7-18 [facility] Thin prep Papanicolaou smear with manual screeningOrdered By: Senthil Ortiz on 06-08-2023 Thin prep Papanicolaou smear with manual screening 7 5-15 [facility] Bacteria identified Cx Nom ( U)Ordered By: Senthil Ortiz on 05-31-2023 Culture, urine Escherichia coli [facility] Culture, urine Vancomycin Resist. E . faecalis [facility] Culture, urine Aerococcus viridans. [facility] Basophil percentageOrdered B y: Senthil Ortiz on 05-31-2023 Basophil percentage 0 SEEN /hpf 0-5 [facility] Bilirubin Test strip Ql (U)O rdered By: Senthil Ortiz on 05-31-2023 Bilirubin Ql (U) Negative Negative [facility] COVID-19 virus antigen assay Ordered By: Senthil Ortiz on 05-31-2023 SARS-CoV-2 (COVID-19) Ag IA.rapid Ql (Resp) [facility] SARS-CoV-2 (COVID-19) Ag IA.rapid Ql (Resp) [facility] Culture, urineOrdered By: Darwin Ortiz on 05-31-2023 Bacteria identified Cx Nom (U) Escherichia coli [facility] Bacteria identified Cx Nom (U) Vancomycin Resist. E. faecalis [facility] Bacteria identified Cx Nom (U) Aerococcus viridans. [facility] Ketones Test strip Ql (U)Ord ered By: Senthil Ortiz on 05-31-2023 Ketones Ql (U) Negative Negative [facility] Mucus LM Ql (Urine sed)Order ed By: Senthil Ortiz on 05-31-2023 Mucus Ql (Urine sed) 0 SEEN /hpf [facility] Nitrite Test strip Ql (U)Ord ered By: Senthil Ortiz on 05-31-2023 Nitrite Ql (U) Negative Negative [facility] Protein Test strip Ql (U)Ord ered By: Senthil Ortiz on 05-31-2023 Protein Ql (U) Negative Negative [facility] Squamous epithelial cells de tection in urine sediment by light microscopyOrdered By: Senthil Ortiz on 05-31-2023 Epithelial cells.squamous LM Ql (Urine sed) 0 SEEN /hpf 5-10 [facility] Urine blood detectionOrdered By: Senthil Ortiz on 05-31-2023 RBC Ql (U) Negative Negative [facility] RBC Ql (U) 0 SEEN /hpf 0-5 [facility] Urine clarityOrdered By: Senthil Ortiz on 05-31-2023 Clarity (U) Clear Clear [facility] Urine color determinationOrd ered By: Senthil Ortiz on 05-31-2023 Color (U) Yellow Yellow [facility] Urine glucose detectionOrder ed By: Senthil Ortiz on 05-31-2023 Glucose Ql (U) Normal mg/dl Normal [facility] Urine leukocyte esterase det ection by dipstickOrdered By: Senthil Ortiz on 05-31-2023 Leukocyte esterase Test strip Ql (U) Negative Negative [facility] Urine pHOrdered By: Senthil Ortiz on 05-31-2023 pH (U) 6.0 [pH] 5.0 - 8.0 [facility] Urine sediment bacteria coun t by microscopy (number/high power field)Ordered By: Senthil Ortiz on 05-31-2023 Bacteria LM.HPF (Urine sed) [#/Area] 0 /[HPF] None Seen [facility] Urine specific gravity measu rementOrdered By: Senthil Ortiz on 05-31-2023 Specific gravity (U) [Rel density] 1.010 1.002-1.030 [facility] Urobilinogen Auto test strip Ql (U)Ordered By: Senthil Ortiz on 05-31-2023 Urobilinogen Ql (U) Normal mg/dl Normal [facility] Clostridium difficile detect ion by polymerase chain reactionOrdered By: Senthil Ortiz on 05-29-2023 C. difficile DNA PACHECO+probe Ql (Unsp spec) [facility] C. difficile DNA PACHECO+probe Ql (Unsp spec) [facility] Basophil percentageOrdered B y: Alee Yao on 05-17-2023 Basophil percentage 129 mg/dL 74-106 [facility] Basophil percentage 6.9 g/dL 6.4-8.2 [facility] Basophil percentage 0.70 mg/dL 0.20-1.00 [facility] Basophil percentage 143 mmol/L 136-145 [facility] Basophil percentage 3.2 mmol/L 3.5-5.1 [facility] Basophil percentage 110 mmol/L 98-107 [facility] Bilirubin [Mass/Vol] 0.70 mg/dL 0.20-1.00 [facility] Comment on above: For patients on eltr ombopag therapy, use of Dimension [place] TBIL is not recommended. Chloride [Moles/Vol] 110 mmol/L 98-107 [facility] Glucose [Mass/Vol] 129 mg/dL 74-106 [facility] Comment on above: Fasting Glucose resu lt greater than or equal to 126 mg/dL suggests DIABETES MELLITUS per A.D.A. criteria. Potassium [Moles/Vol] 3.2 mmol/L 3.5-5.1 [facility] Protein [Mass/Vol] 6.9 g/dL 6.4-8.2 [facility] Sodium [Moles/Vol] 143 mmol/L 136-145 [facility] Glucose Glucometer (BldC) [M ass/Vol]Ordered By: Alee Yao on 05-17-2023 Glucose [Mass/Vol] 204 mg/dL 74-106 [facility] Comment on above: MANAGEMENT OF PATIEN T CARE PER NURSING PROTOCOL Laboratory - Chemistry and C hemistry - challengeOrdered By: Alee Yao on 08-15-2023 ALP [Catalytic activity/Vol] 154 U/L 45-117 [facility] ALT [Catalytic activity/Vol] 77 U/L [facility] CO2 [Moles/Vol] 26.0 mmol/L 21.0-32.0 [facility] Globulin (S) [Mass/Vol] 4.4 g/dL 2.2-4.2 [facility] Urea nitrogen/Creatinine [Mass ratio] 9.6 mg/mg 07-22 [facility] No Panel InformationOrdered By: Alee Yao on 05-17-2023 Estimated Creatinine Clearance Calc 30.86 ml/min [facility] Estimated GFR (MDRD) Amer 58 mL/min >60 [facility] Comment on above: GFR Calc Estimated GFR (MDRD) Non-Af Amer 48 mL/min >60 [facility] Comment on above: Non- GFR Calc 48 mL/min >60 [facility] 58 mL/min >60 [facility] 30.86 ml/min [facility] 9.6 RATIO 07-22 [facility] 4.4 g/dL 2.2-4.2 [facility] 154 U/L 45-117 [facility] 77 U/L [facility] 26.0 mmol/L 21.0-32.0 [facility] Serum or plasma albumin inga urement (mass/volume)Ordered By: Alee Yao on 05-17-2023 Albumin [Mass/Vol] 2.5 g/dL 3.2-5.0 [facility] Serum or plasma albumin/glob ulin mass ratioOrdered By: Alee Yoa on 05-17-2023 Albumin/Globulin [Mass ratio] 0.6 {ratio} 0.9-2.4 [facility] Serum or plasma calcium inga urement (mass/volume)Ordered By: Alee Yao on 05-17-2023 Calcium [Mass/Vol] 9.4 mg/dL 8.5-10.1 [facility] Serum or plasma creatinine m easurement [...] 05-17-2023 Urea nitrogen [Mass/Vol] 11 mg/dL 7-18 [facility] Thin prep Papanicolaou smear with manual screeningOrdered By: Alee Yao on 05-17-2023 Thin prep Papanicolaou smear with manual screening 27 U/L 15-37 [facility] Thin prep Papanicolaou smear with manual screening 7 5-15 [facility] Absolute lymphocyte countOrd ered By: Alee Yao on 05-16-2023 Lymphocytes Auto (Unsp spec) [#/Vol] 2.07 10*3/uL 0.83-4.51 [facility] Basophil percentageOrdered B y: Alee Yao on 05-16-2023 Basophils (Bld) [#/Vol] 5.3 10*3/uL 4.4-11.0 [facility] Basophils (Bld) [#/Vol] 2.7 10*3/uL 2.0-7.7 [facility] Basophils/100 WBC (Bld) 0.9 % 0-1 [facility] Basophils/100 WBC (Bld) 51.4 % 47-70 [facility] Basophils/100 WBC (Bld) 2.6 % 0-5 [facility] Eosinophils/100 WBC (Bld) 2.6 % 0-5 [facility] Neutrophils (Bld) [#/Vol] 2.7 10*3/uL 2.0-7.7 [facility] Neutrophils/100 WBC (Bld) 51.4 % 47-70 [facility] WBC (Bld) [#/Vol] 5.3 10*3/uL 4.4-11.0 [facility] Blood erythrocytes count (nu mber/volume)Ordered By: Alee Yao on 05-16-2023 RBC (Bld) [#/Vol] 4.45 10*6/uL 4.2-5.4 [facility] Blood hemoglobin measurement (mass/volume)Ordered By: Alee Yao on 05-16-2023 Hemoglobin (Bld) [Mass/Vol] 13.2 g/dL 12.0-15.0 [facility] Blood lymphocytes/100 leukoc ytesOrdered By: Alee Yao on 05-16-2023 Lymphocytes/100 WBC (Bld) 39.1 % 19-41 [facility] Blood monocytes/100 leukocyt esOrdered By: Alee Yao on 05-16-2023 Monocytes/100 WBC (Bld) 5.8 % 0-10 [facility] Blood platelet mean volumeOr dered By: Alee Yao on 05-16-2023 Platelet mean volume (Bld) [Entitic vol] 10.7 fL 6.2-12.0 [facility] Determination of erythrocyte mean corpuscular volume (MCV)Ordered By: Alee Yao on 05-16-2023 MCV (RBC) [Entitic vol] 94.8 fL 81-99 [facility] Hematocrit Auto (Bld) [Volum e fraction]Ordered By: Alee Yao on 05-16-2023 Hematocrit (Bld) [Volume fraction] 42.2 % 37-47 [facility] Laboratory - Hematology and Cell countsOrdered By: Alee Yao on 05-16-2023 Erythrocyte distribution width (RBC) [Entitic vol] 43.3 fL 35.1-43.9 [facility] Erythrocyte distribution width (RBC) [Ratio] 12.3 % 11.6-14.6 [facility] Immature granulocytes/100 WBC (Bld) 0.200 % 0.0-0.9 [facility] Comment on above: IG% - Immature Granu locytes (promyelocytes, myelocytes and metamyelocytes) > 1% indicates that a LEFT SHIFT is Present. MCH (RBC) [Entitic mass] 29.7 pg 27.0-32.0 [facility] Nucleated RBC/100 WBC (Bld) [Ratio] 0 % 0-5 [facility] MCHC Auto (RBC) [Mass/Vol]Or dered By: Alee Yao on 05-16-2023 MCHC (RBC) [Mass/Vol] 31.3 g/dL 32-36 [facility] No Panel InformationOrdered By: Alee Yao on 05-16-2023 29.7 pg 27.0-32.0 [facility] 12.3 % 11.6-14.6 [facility] 43.3 fl 35.1-43.9 [facility] 0.200 % 0.0-0.9 [facility] 0 % 0-5 [facility] Platelets bldOrdered By: María Elena Yao on 05-16-2023 Platelets (Bld) [#/Vol] 227 10*3/uL 150-450 [facility] Basophil percentageOrdered B y: Alee Yao on 05-14-2023 Basophil percentage 3.0 mg/dL 2.5-4.9 [facility] [facility] - Chemistry and C hemistry - challengeOrdered By: Alee Yao on 05-14-2023 Magnesium [Mass/Vol] 2.0 mg/dL 1.6-2.6 [facility] No Panel InformationOrdered By: Alee Yao on 05-14-2023 Methicillin-Resist S.aureus DNA PCR Negative Negative [facility] Negative Negative [facility] 2.0 mg/dL 1.6-2.6 [facility] Acetaminophen level (mass/vo lume)Ordered By: Alee Yao on 05-13-2023 Acetaminophen (Unsp spec) [Mass/Vol] < 2.0 ug/mL 10.0-30.0 [facility] Comment on above: Slight Icterus, Resu lt may be falsely decreased. Basophil percentageOrdered B y: Alee Yao on 05-13-2023 Basophil percentage 0.9 mmol/L 0.4-2.0 [facility] Lactate [Moles/Vol] 0.9 mmol/L 0.4-2.0 [facility] Basophil percentageOrdered B y: Octavia White on 05-13-2023 Ammonia (P) [Moles/Vol] 15.0 umol/L [facility] Basophil percentage 15.0 umol/L [facility] Laboratory - Chemistry and C hemistry - challengeOrdered By: Alee Yao on 05-13-2023 CK [Catalytic activity/Vol] 41 U/L 26-192 [facility] - Drug toxicology Ordered By: Alee Yao on 05-13-2023 Amphetamines Ql (U) Negative <1000 ng/mL [facility] Benzodiazepines Ql (U) Positive < 200 ng/mL [facility] Cannabinoids Screen Ql (U) Negative < 50 ng/mL [facility] Cocaine Ql (U) Negative < 300 ng/mL [facility] Opiates Ql (U) Positive < 300 ng/mL [facility] - Microbiology an d Antimicrobial susceptibilityOrdered By: Octavia Gruber on 05-13-2023 SARS-CoV-2 (COVID-19) RNA PACHEOC+probe Ql (Unsp spec) [facility] No Panel InformationOrdered By: Alee Yao on 05-13-2023 MDMA (Ecstasy) Screen Positive < 500 ng/mL [facility] Urine Barbiturates Screen Negative < 200 ng/mL [facility] Urine Drug Screen Comment [facility] Comment on above: CONFIRMATORY TESTING FOR ALL [...] Methadone Screen Negative < 300 ng/mL [facility] Negative < 50 ng/mL [facility] Positive < 300 ng/mL [facility] Ethyl Alcohol Level < 3.0 mg/dL [facility] Comment on above: The serum:whole bloo d ethanol ratio is approximately 1.14and varies slightly with hematocrit. Medical Alcohol reference interval and critical value innon-tolerant individuals; 50 - 100 Impairment 100 Intoxication 100 - 250 Severe Poisoning 250 - 400 Deep/possible fatal coma < 3.0 mg/dL [facility] 41 U/L 26-192 [facility] No Panel InformationOrdered By: Octavia Gruber on 05-13-2023 Hepatitis A IgM Antibody Negative Negative [facility] Hepatitis B Core IgM Antibody Negative Negative [facility] Hepatitis C Antibody (EIA) Non-Reactive Non Reactive [facility] Hepatitis C Antibody Comment Comment . [facility] Comment on above: Not infected with HC V unless early or acute infection issuspected (which may be delayed in an immunocompromisedindividual), or other evidence exists to indicate HCVinfection.Performed at: [facility] [id number] Director: Ruben Tan PhD, Phone: [phone] Negative Negative [facility] Non-Reactive Non Reactive [facility] Comment . [facility] Serum or plasma hepatitis B virus surface antigen detection by immunoassayOrdered By: Octavia Gruber on 05-13-2023 HBV surface Ag IA Ql Negative Negative [facility] Serum procalcitonin measurem entOrdered By: Octavia Gruber on 05-13-2023 Procalcitonin [Mass/Vol] 2.29 ng/mL 0.00-0.09 [facility] Comment on above: A procalcitonin (PCT ) [...] Phencyclidine Ql (U) Negative < 25 ng/mL [facility] Whole blood hemoglobin A1c/t otal hemoglobin ratio (mass fraction)Ordered By: Cirilo Galeas on 05-13-2023 HbA1c (Bld) [Mass fraction] 7.0 % 3.8-5.6 [facility] Comment on above: Normal < 5.7 % Predi abetic 5.7 - 6.4 % Diabetic >or= 6.5 % Please note range changes. Basophil percentageOrdered B y: Papo Morillo on 05-12-2023 Basophil percentage 0 SEEN /hpf 0-5 [facility] Bilirubin Test strip Ql (U)O rdered By: Papo Morillo on 05-12-2023 Bilirubin Ql (U) Negative Negative [facility] Culture, urineOrdered By: Javier Morillo on 05-12-2023 Bacteria identified Cx Nom (U) Culture exhibits no growth. [facility] Bacteria identified Cx Nom (U) Culture exhibits no growth. [facility] INR in Blood by Coagulation assayOrdered By: Paop Morillo on 05-12-2023 INR Coag (Bld) [Relative time] 1.1 {INR} [facility] Ketones Test strip Ql (U)Ord ered By: Papo Morillo on 05-12-2023 Ketones Ql (U) Negative Negative [facility] Laboratory - CoagulationOrde red By: Papo Morillo on 05-12-2023 aPTT Coag (Bld) [Time] 28.7 s 24.1-36.[address] [facility] PT Coag (PPP) [Time] 14.5 s 11.7-14.9 [facility] Laboratory - Microbiology an d Antimicrobial susceptibilityOrdered By: Papo Morillo on 05-12-2023 Bacteria identified Cx Nom (Bld) No growth in 5 days. [facility] Mucus LM Ql (Urine sed)Order ed By: Papo Morillo on 05-12-2023 Mucus Ql (Urine sed) 0 SEEN /hpf [facility] Nitrite Test strip Ql (U)Ord ered By: Papo Morillo on 05-12-2023 Nitrite Ql (U) Negative Negative [facility] No Panel InformationOrdered By: Papo Morillo on 05-12-2023 No growth in 5 days. [facility] 14.5 SECONDS 11.7-14.9 [facility] 28.7 Seconds 24.1-36.2 [facility] Protein Test strip Ql (U)Ord ered By: Papo Morillo on 05-12-2023 Protein Ql (U) 15 mg/dl Negative [facility] Squamous epithelial cells de tection in urine sediment by light microscopyOrdered By: Papo Morillo on 05-12-2023 Epithelial cells.squamous LM Ql (Urine sed) 0 SEEN /hpf 5-10 [facility] Urine blood detectionOrdered By: Papo Morillo on 05-12-2023 RBC Ql (U) 10 /ul Negative [facility] RBC Ql (U) 0 SEEN /hpf 0-5 [facility] Urine clarityOrdered By: Papo Morillo on 05-12-2023 Clarity (U) Clear Clear [facility] Urine color determinationOrd ered By: Papo Morillo on 05-12-2023 Color (U) Yellow Yellow [facility] Urine glucose detectionOrder ed By: Papo Morillo on 05-12-2023 Glucose Ql (U) Normal mg/dl Normal [facility] Urine leukocyte esterase det ection by dipstickOrdered By: Papo Morillo on 05-12-2023 Leukocyte esterase Test strip Ql (U) Negative Negative [facility] Urine pHOrdered By: Papo ny on 05-12-2023 pH (U) 7.0 [pH] 5.0 - 8.0 [facility] Urine sediment bacteria coun t by microscopy (number/high power field)Ordered By: Papo Morillo on 05-12-2023 Bacteria LM.HPF (Urine sed) [#/Area] 0 /[HPF] None Seen [facility] Urine specific gravity measu rementOrdered By: Papo Morillo on 05-12-2023 Specific gravity (U) [Rel density] 1.010 1.002-1.030 [facility] Urobilinogen Auto test strip Ql (U)Ordered By: Papo Morillo on 05-12-2023 Urobilinogen Ql (U) 1 mg/dl Normal [facility] No Panel Informationon 03-04 Culture Urine >100,000 cfu/ml Multiple bacterial morphotypes present. Probable Contamination. Suggest recollection if clinically indicated. [facility] Work Phone: LABORATORYOrdered By: Vanessa Root on [...] CNOV Office Visit (UROLAE ) LUIZA GALO ([id number]) 1940 F [place] Date Time Provider Department [...] Maggi Ellington RN Referring Provider: TEJAL RIVERA [[id number]] Allergies As of Date: 04/06/2022 Noted Allergy [...] (more content not included)... Normal [facility] UA DIP, URINE (POC)on 2021 BILIRUBIN UA (POCT) Negative Negative [facility] CLARITY UA (POCT) Clear [facility] COLOR UA (POCT) Yellow [facility] GLUCOSE UA (POCT) Negative Negative mg/dL [facility] HEMOGLOBIN/BLOOD UA (POCT) Negative Negative [facility] KETONE UA (POCT) Negative Negative mg/dL [facility] LEUKOCYTES UA (POCT) Trace Abnormal Negative [facility] NITRITE UA (POCT) Negative Negative [facility] PH UA (POCT) 5.0 4.5 - 8.0 [facility] Protein Ql (U) Negative Negative mg/dL [facility] SPECIFIC GRAVITY UA (POCT) 1.025 1.005 - 1.030 [facility] UROBILINOGEN UA (POCT) 0.2 E.U./dL [facility] E.U./dL [facility] CNPNon 03-23-2022 CNPN Telephone (UROLAG) LUIZA GALO ([id number]) [address] [facility] Date Time Provider Department 03/23/22 TEJAL RIVERA UROVANIA During your visit today, we recorded the [...] unspecified [N39.0] Order(s):URINE CULTURE [SQURCUL] Order #: [id number] FUTURE Prescriptions as of 03/23/2022 - ALPRAZolam [...] Encounter Status:Closed by TEJAL RIVERA on 03/23/22 Normal [facility] No Panel Informationon 02-19 Culture Urine 50,000 - 100,000 cfu /ml Multiple bacterial morphotypes present. Probable Contamination. Suggest recollection if clinically indicated. [facility] Work Phone: LABORATORYOrdered By: Mercedez Brewster on [...] 09-17 Culture Urine >100,000 cfu/ml Escherichia coli [facility] Work Phone: Escherichia coli Escherichia coli [facility] Work Phone: CNOVon 09-02-2021 CNOV Office Visit (UROLAE ) LUIZA GALO ([id number]) 1940 F [place] Date Time Provider Department [...] Maggi Ellington RN Referring Provider: TEJAL RIVERA [[id number]] Allergies As of Date: 09/02/2021 Noted Allergy [...] injection (XYLOCAINE)Disp: Rfl: UA DIP, URINE (POC) [[id number]] Order #: [id number]. #:[id number] Prescriptions as of 09/02/2021 - ALPRAZolam (XANAX) 0.5 mg tablet Take 0.5 mg by mouth three times daily. - furosemide (LASIX) 20 mg tablet Take 20 mg by mouth once daily. - TRESIBA FLEXTOUCH U-200 200 unit/mL (3 mL) in (more content not included)... Normal [facility] UA DIP, URINE (POC)on 2020 BILIRUBIN UA (POCT) Negative Negative [facility] CLARITY UA (POCT) Clear [facility] COLOR UA (POCT) Yellow [facility] GLUCOSE UA (POCT) Negative Negative mg/dL [facility] HEMOGLOBIN/BLOOD UA (POCT) Trace-intact Abnormal Negative [facility] KETONE UA (POCT) Negative Negative mg/dL [facility] LEUKOCYTES UA (POCT) Trace Abnormal Negative [facility] NITRITE UA (POCT) Negative Negative [facility] PH UA (POCT) 5.5 4.5 - 8.0 [facility] Protein Ql (U) Negative Negative mg/dL [facility] SPECIFIC GRAVITY UA (POCT) 1.025 1.005 - 1.030 [facility] UROBILINOGEN UA (POCT) 0.2 E.U./dL [facility] E.U./dL [facility] CNPTamika 08-19-2021 BRYANNAN Telephone (UROLAE) LUIZA GALO ([id number]) 1940 F [place] Date Time Provider Department 08/19/21 TEJAL RIVERA [...] Reason for Visit: Appointment [[id number]] Patient Question [3479] Prescriptions as of 08/19/2021 - ALPRAZolam (XANAX) [...] SYRINGE ULTRA-FINE 1 mL 31 gauge x 16 syrg - warfarin (COUMADIN) 2.5 mg tablet [...] on 08/19/21 [facility] CNOVon 06-17-2021 CNOV Office Visit (UROLAE ) LUIZA GALO ([id number]) 1940 [facility] Date Time Provider Department 06/17/21 1:45 PM [...] you tried to help your leakage Tired Livia didn't help What surgeries have you had [...] (more content not included)... Normal [facility] Cult Urineon 12-28-2017 Cult Urine Test performed at [facility] ORGANISM: Escherichia coli (ID: 1) >100,000 CFU/ml Normal [facility] Comment on above: Performed By: #### C _URI ####[facility] [place] [id number] Vital Signs Date Time Vital Sign Value Performing Clinician Facility 11-21-2023 00:16-0500 Body temperature 97.1 [degF] Dr. Rosalind Rubalcava Work Phone: [facility] 11-21-2023 00:16-0500 Diastolic blood pressure 75 mm[Hg] Dr. Rosalind Rubalcava Work Phone: [facility] 11-21-2023 00:16-0500 Heart rate 79 /min Dr. Rosalind Rubalcava Work Phone: [facility] 11-21-2023 00:16-0500 Respiratory rate 15 /min Dr. Rosalind Rubalcava Work Phone: [facility] 11-21-2023 00:16-0500 SaO2% (BldA) [Mass fraction] 95 % Dr. Rosalind Rubalcava Work Phone: [facility] 11-21-2023 00:16-0500 Systolic blood pressure 168 mm[Hg] Dr. Rosalind Rubalcava Work Phone: [facility] 11-20-2023 20:24-0500 Body mass index (BMI) [Ratio] 36.8 kg/m2 Dr. Rosalind Rubalcava Work Phone: [facility] 11-20-2023 20:24-0500 Body weight 85.[address] Rosalind Rubalcava Work Phone: [facility] 11-20-2023 20:14-0500 Body height 152.[address] Rosalind Rubalcava Work Phone: [facility] 10-24-2023 11:24-0500 Diastolic blood pressure 70 mm[Hg] Dr. Rosalind Rubalcava Work Phone: [facility] 10-24-2023 11:24-0500 Systolic blood pressure 150 mm[Hg] Dr. Rosalind Rubalcava Work Phone: [facility] 10-24-2023 11:00-0500 Body height 157.[address] Rosalind Rubalcava Work Phone: [facility] 10-24-2023 11:00-0500 Body mass index (BMI) [Ratio] 33.3 kg/m2 Dr. Rosalind Rubalcava Work Phone: [facility] 10-24-2023 11:00-0500 Body weight 82.[address] Rosalind Rubalcava Work Phone: [facility] 10-24-2023 11:00-0500 Heart rate 50 /min Dr. Rosalind Rubalcava Work Phone: [facility] 10-24-2023 11:00-0500 Respiratory rate 18 /min Dr. Rosalind Rubalcava Work Phone: [facility] 10-24-2023 11:00-0500 SaO2% (BldA) [Mass fraction] 93 % Dr. Rosalind Rubalcava Work Phone: [facility] 08-15-2023 11:27-0500 Heart rate 55 /min Dr. Rosalind Rubalcava Work Phone: [facility] 08-15-2023 08:09-0500 SaO2% (BldA) [Mass fraction] 96 % Dr. Rosalind Rubalcava Work Phone: [facility] 08-15-2023 07:44-0500 Body temperature 97.7 [degF] Dr. Rosalind Rubalcava Work Phone: [facility] 08-15-2023 07:44-0500 Diastolic blood pressure 48 mm[Hg] Dr. Rosalind Rubalcava Work Phone: [facility] 08-15-2023 07:44-0500 Respiratory rate 16 /min Dr. Rosalind Rubalcava Work Phone: [facility] 08-15-2023 07:44-0500 Systolic blood pressure 141 mm[Hg] Dr. Rosalind Rubalcava Work Phone: [facility] 08-15-2023 05:00-0500 Inhaled oxygen flow rate 2 L/min Dr. Rosalind Rubalcava Work Phone: [facility] 08-14-2023 16:11-0500 Body height 157.[address] Rosalind Rubalcava Work Phone: [facility] 08-14-2023 16:11-0500 Body mass index (BMI) [Ratio] 34.9 kg/m2 Dr. Rosalind Rubalcava Work Phone: [facility] 08-14-2023 16:11-0500 Body weight 86.[address] Rosalind Rubalcava Work Phone: [facility] 08-14-2023 15:20-0500 Diastolic blood pressure 54 mm[Hg] Dr. Rosalind Rubalcava Work Phone: [facility] 08-14-2023 15:20-0500 Heart rate 85 /min Dr. Rosalind Rubalcava Work Phone: [facility] 08-14-2023 15:20-0500 Respiratory rate 16 /min Dr. Rosalind Rubalcava Work Phone: [facility] 08-14-2023 15:20-0500 SaO2% (BldA) [Mass fraction] 97 % Dr. Rosalind Rubalcava Work Phone: [facility] 08-14-2023 15:20-0500 Systolic blood pressure 142 mm[Hg] Dr. Rosalind Rubalcava Work Phone: [facility] 08-14-2023 13:37-0500 Body temperature 100.2 [degF] Dr. Rosalind Rubalcava Work Phone: [facility] 08-14-2023 13:37-0500 Inhaled oxygen flow rate 2 L/min Dr. Rosalind Rubalcava Work Phone: [facility] 08-14-2023 11:52-0500 Body height 157.[address] Rosalind Rubalcava Work Phone: [facility] 06-10-2023 09:17-0400 Diastolic blood pressure 45 mm[Hg] Dr. Rosalind Rubalcava Work Phone: [facility] 06-10-2023 09:17-0400 Heart rate 56 /min Dr. Rosalind Rubalcava Work Phone: [facility] 06-10-2023 09:17-0400 Systolic blood pressure 123 mm[Hg] Dr. Rosalind Rubalcava Work Phone: [facility] 06-10-2023 05:45-0400 Respiratory rate 16 /min Dr. Rosalind Rubalcava Work Phone: [facility] 06-10-2023 05:45-0400 SaO2% (BldA) [Mass fraction] 97 % Dr. Rosalind Rubalcava Work Phone: [facility] 06-09-2023 12:20-0400 Body temperature 97.8 [degF] Dr. Rosalind Rubalcava Work Phone: [facility] 06-07-2023 10:36-0400 Body mass index (BMI) [Ratio] 33.7 kg/m2 Dr. Rosalind Rubalcava Work Phone: [facility] 06-07-2023 10:36-0400 Body weight 83.[address] Rosalind Rubalcava Work Phone: [facility] 06-01-2023 11:50-0400 Body height 157.[address] Rosalidn Rubalcava Work Phone: [facility] 05-17-2023 16:05-0400 Body temperature 98.3 [degF] Dr. Rosalind Rubalcava Work Phone: [facility] 05-17-2023 16:05-0400 Diastolic blood pressure 53 mm[Hg] Dr. Rosalind Rubalcava Work Phone: [facility] 05-17-2023 16:05-0400 Heart rate 62 /min Dr. Rosalind Rubalcava Work Phone: [facility] 05-17-2023 16:05-0400 Respiratory rate 16 /min Dr. Rosalind Rubalcava Work Phone: [facility] 05-17-2023 16:05-0400 SaO2% (BldA) [Mass fraction] 96 % Dr. Rosalind Rubalcava Work Phone: [facility] 05-17-2023 16:05-0400 Systolic blood pressure 143 mm[Hg] Dr. Rosalind Rubalcava Work Phone: [facility] 05-17-2023 04:38-0400 Body mass index (BMI) [Ratio] 36.3 kg/m2 Dr. Rosalind Rubalcava Work Phone: [facility] 05-17-2023 04:38-0400 Body weight 89.[address] Rosalind Rubalcava Work Phone: [facility] 05-15-2023 09:05-0400 Inhaled oxygen flow rate 1.5 L/min Dr. Rosalind Rubalcava Work Phone: [facility] 05-13-2023 01:51-0400 Body height 157.[address] Rosalind Rubalcava Work Phone: [facility] 04-20-2023 14:23-0400 Body mass index (BMI) [Ratio] 36.2 kg/m2 Dr. Rosalind Rubalcava Work Phone: [facility] 04-20-2023 14:23-0400 Body weight 89.[address] Rosalind Rubalcava Work Phone: [facility] 04-20-2023 14:23-0400 Diastolic blood pressure 87 mm[Hg] Dr. Rosalind Rubalcava Work Phone: [facility] 04-20-2023 14:23-0400 Heart rate 63 /min Dr. Rosalind Rubalcava Work Phone: [facility] 04-20-2023 14:23-0400 Respiratory rate 18 /min Dr. Rosalind Rubalcava Work Phone: [facility] 04-20-2023 14:23-0400 SaO2% (BldA) [Mass fraction] 94 % Dr. Rosalind Rubalcava Work Phone: [facility] 04-20-2023 14:23-0400 Systolic blood pressure 176 mm[Hg] Dr. Rosalind Rubalcava Work Phone: [facility] 04-06-2022 10:39-0400 Body height 157.5 cm Tejal Rivera MD Work Phone: [facility] 04-06-2022 10:39-0400 Body weight 83.92 kg Tejal Rivera MD Work Phone: [facility] 04-06-2022 10:39-0400 Diastolic blood pressure 84 mm[Hg] Tejal Rivera MD Work Phone: [facility] 04-06-2022 10:39-0400 Systolic blood pressure 152 mm[Hg] Tejal Rivera MD Work Phone: [facility] 09-02-2021 09:09-0500 Body height 157.5 cm Tejal Rivera MD Work Phone: [facility] 09-02-2021 09:09-0500 Body weight 83.92 kg Tejal Rivera MD Work Phone: [facility] 09-02-2021 09:09-0500 Diastolic blood pressure 70 mm[Hg] Tejal Rivera MD Work Phone: [facility] 09-02-2021 09:09-0500 Systolic blood pressure 130 mm[Hg] Tejal Rivera MD Work Phone: [facility] 06-17-2021 13:39-0400 Body height 157.5 cm Tejal Rivera MD Work Phone: [facility] 06-17-2021 13:39-0400 Body weight 83.92 kg Tejal Rivera MD Work Phone: [facility] 06-17-2021 13:39-0400 Diastolic blood pressure 80 mm[Hg] Tejal Rivear MD Work Phone: [facility] 06-17-2021 13:39-0400 Systolic blood pressure 126 mm[Hg] Tejal Rivera MD Work Phone: [facility] Encounters Encounter Date Encounter Type Care Provider Facility Start: 04-15-2025 ambulatory Efbeverly badillo OLS Facility:[facility] Start: 04-15-2025 Laverne Lea MD [facility] [place] Start: 04-02-2025 Dr. Mamta gambino MD -[facility] Work Phone: Start: 03-18-2025 ambulatory Efbeverly badillo OLS Facility:[facility] Start: 03-18-2025 Laverne Lea MD [facility] [place] Start: 03-11-2025 ambulatory Efbeverly badillo OLS Facility:[facility] Start: 03-11-2025 Laverne Lea MD [facility] [address] [place] Start: 03-06-2025 ambulatory Efbeverly badillo OLS Facility:[facility] Start: 03-06-2025 Laverne Lea MD [facility] [place] Start: 03-05-2025 End: 03-05-[address] Rosalind Rubalcava MD Work Phone: -[facility] Start: 03-05-2025 End: 03-05-2025 Jing HERRINGC -[facility] Work Phone: Start: 03-04-2025 End: 03-04-[address] Rosalind Rubalcava MD Work Phone: -[facility] Start: 03-04-2025 End: 03-04-2025 Jing HERRINGC -[facility] Work Phone: Start: 03-04-2025 ambulatory Jing VICTORIA Fac ility:[facility] Start: [facility]04[facility] Start: 02-26-2025 End: 02-26-[address] Rosalind Rubalcava MD Work Phone: [facility] Work Phone: Start: 02-26-2025 End: 02-26-2025 Dr[facility] Work Phone: Start: 02-11-2025 End: 02-11-[address] Rosalind Rubalcava MD Work Phone: [facility] Work Phone: Start: 02-11-2025 Registered Referred Laverne GuajardoCorrine [place] Start: 02-11-2025 End: 02-11-2025 Laverne Guajardo[facility]rine [address] [address] Start: 02-11-2025 End: 02-11-2025 ambulatory Laverne VICTORIA Facility:[facility] Start: 02-04-2025 Registered Referred Laverne GuajardoCorrine [place] Start: 02-04-2025 End: 02-04-2025 Laverne GuajardoCorrine [address] Start: 02-04-2025 End: 02-04-2025 ambulatory Laverne VICTORIA Facility:[facility] Start: 01-28-2025 End: 01-28-[address] Rosalind Rubalcava MD Work Phone: [facility] Work Phone: Start: 01-28-2025 End: 01-28-2025 Patient encounter procedure [facility] Work Phone: Start: 01-28-2025 End: 01-28-2025 [facility] Work Phone: Start: 01-14-2025 End: 01-14-2025 Departed Referred Laverne [facility] [place] [place] Start: 01-14-2025 End: 01-14-2025 Laverne GuajardoCorrine [address] Start: 01-14-2025 End: 01-14-2025 ambulatory Laverne VICTORIA Facility:[facility] Start: 01-10-2025 End: 01-10-[address] Rosalind Rubalcava MD Work Phone: [facility] Work Phone: Start: 01-10-2025 End: 01-10-2025 Patient encounter procedure Jing Jones [facility] -[facility] Work Phone: Start: 01-10-2025 End: 01-10-2025 Departed Referred Laverne [address] Start: 01-10-2025 End: 01-10-2025 Jing Jones [facility] -[facility] Work Phone: Start: 01-09-2025 End: 01-10-[address] Rosalind Rubalcava MD Work Phone: [facility] Work Phone: Start: 01-09-2025 End: 01-09-2025 Patient encounter procedure Jing Jones [facility] -[facility] Work Phone: Start: 01-09-2025 End: 01-09-2025 Jing Jones [facility] Work Phone: Start: 01-08-2025 End: 01-08-[address] Rosalind Rubalcava MD Work Phone: [facility] Work Phone: Start: 01-08-2025 End: 01-08-2025 Patient encounter procedure Jing Jones CHUTE BOSS-C -[facility] Work Phone: Start: 01-08-2025 End: 01-08-2025 Jing Jones NP-C -[facility] Work Phone: Start: 12-24-2024 End: 12-24-[address] Rosalind Rubalcava MD Work Phone: [facility] Work Phone: Start: 12-24-2024 End: 12-24-2024 Departed Referred Laverne Guajardo[address] Start: 12-24-2024 [facility] [place] [address] Start: 12-24-2024 End: 12-24-2024 La[address]ne [address] Start: 12-24-2024 End: 12-24-2024 ambulatory Laverne VICTORIA Facility:[facility] Start: 12-10-2024 End: 12-10-[address] Rosalind Rubalcava MD Work Phone: [facility] Work Phone: Start: 12-10-2024 End: 12-10-2024 Departed Referred Laverne [facility] Start: 12-10-2024 End: 12-10-2024 Laverne Banuelos [facility] Start: 12-10-2024 End: 12-10-2024 ambulatory Laverne VICTORIA Facility:[facility] Start: 11-12-2024 ambulatory Rosalind Rubalcava Facility: [facility] Start: 11-12-2024 Registered Referred Laverne Guaj[address] Start: 10-15-2024 End: 10-15-2024 Departed Referred Laverne GuajardoCor[address] Start: 10-15-2024 End: 10-15-2024 ambulatory Rosalind Rubalcava Facility:[facility] Start: 10-01-2024 ambulatory Laverne VICTORIA Facility:[facility] Start: 10-01-2024 [facility]istered [facility] [place] [address] Start: 09-21-2024 End: 09-21-2024 ambulatory Rosalind Rubalcava Facility:[facility] Start: 09-21-2024 End: 09-21-2024 Patient encounter procedure Jing Jones CHUTE BOSS-C -[facility] Work Phone: Start: 09-13-2024 ambulatory Laverne badillo OLS Facility:[facility] Start: 09-13-2024 Registered Referred Laverne Lea MD [facility] Start: 09-10-2024 ambulatory Laverne badillo OLS Facility:[facility] Start: 09-10-2024 Registered Referred Laverne Lea MD [facility] Start: 09-03-2024 End: 09-03-2024 ambulatory Rosalind Rubalcava Facility:[facility] Start: 08-20-2024 End: 08-20-2024 ambulatory Rosalind Rubalcava Facility:[facility] Start: 08-13-2024 ambulatory Rosalind Rubalcava Facility: [facility] Start: 07-30-2024 End: 07-30-2024 ambulatory Rosalind Rubalcava Facility:[facility] Start: 07-19-2024 End: 07-19-2024 ambulatory Rosalind Rubalcava Facility:[facility] Start: 07-16-2024 ambulatory Rosalind Rubalcava Facility: [facility] Start: 07-09-2024 ambulatory Laverne badillo OLS Facility:[facility] Start: 06-25-2024 ambulatory Laverne badillo OLS Facility:[facility] Start: 06-14-2024 ambulatory Pawan Reed [facility] Start: 06-11-2024 ambulatory Efbeverly badillo OLS Facility:[facility] Start: 06-01-2024 ambulatory Laverne badillo OLS Facility:[facility] Start: 05-31-2024 ambulatory Laverne badillo OLS Facility:[facility] Start: 05-29-2024 End: 05-29-2024 ambulatory Laverne Lea Facility:[facility] Start: 05-28-2024 End: 05-28-2024 ambulatory Jing Jones NP Facility:[facility] Start: 05-23-2024 End: 05-27-2024 ambulatory ROSALIND RUBALCAVA MD Facility:B Start: 05-23-2024 End: 05-27-2024 Outreach Lab ROSALIND RUBALCAVA MD [facility] Start: 05-10-2024 ambulatory Deric Cortez Facility :[facility] Start: 03-06-2024 End: 03-06-2024 ambulatory ROSALIND RUBALCAVA MD Facility:[facility] Start: 03-03-2024 End: 05-21-2024 ambulatory ROSALIND RUBALCAVA MD Facility:R Start: 01-15-2024 Non-patient / Non-visit Dr. Rosalind Rubalcava Work Phone: [facility] Work Phone: Start: 01-13-2024 Non-patient / Non-visit Dr. Rosalind Rubalcava Work Phone: [facility] Start: 01-13-2024 End: 01-13-[address] Rosalind Rubalcava Work Phone: [facility] Work Phone: Start: 01-13-2024 End: 01-13-[address] [facility] Start: 12-28-2023 End: 12-28-[address] Rosalind Rubalcava Work Phone: [facility] Work Phone: Start: 12-28-2023 End: 12-28-[address] Rosalind Rubalcava Work Phone: [facility] Work Phone: Start: 12-15-2023 End: 12-15-[address] Rosalind Rubalcava Work Phone: [facility] Work Phone: Start: 12-15-2023 End: 12-15-[address] [facility]alcava [facility] Start: 11-20-2023 End: 11-21-2023 Emergency department patient visit Dr. Rosalind Rubalcava Work Phone: [facility]Emer[facility] Work Phone: Start: 11-10-2023 End: 11-10-[address] Rosalind Rubalcava Work Phone: [facility] Work Phone: Start: 11-04-2023 End: 11-04-[address] [facility]alind [facility]alcava [facility] Start: 11-01-2023 End: 11-01-2023 ambulatory ROSALIND RUBALCAVA MD Facility:B Start: 10-24-2023 End: 10-24-[address] Rosalind Rubalcava Work Phone: [facility] Work Phone: Start: 10-24-2023 End: 10-24-[address] Rosalind Rubalcava Work Phone: [facility] Work Phone: Start: 09-22-2023 End: 09-22-2023 ambulatory [facility] Facility:B Start: 09-22-2023 End: 09-22-2023 Patient encounter procedure ROSALIND RUBALCAVA MD [facility] Start: 08-15-2023 Non-patient / Non-visit Dr. Rosalind Rubalcava Work Phone: [facility] Work Phone: Start: 08-15-2023 Dr. Rosalind willis Work Phone: [facility] Work Phone: Start: 08-14-2023 End: 08-15-2023 Evaluation and management of inpatient Dr. Rosalind Rubalcava Work Phone: [facility] Work Phone: Start: 08-14-2023 End: 08-15-[address] Rosalind Rubalcava Work Phone: [facility] Work Phone: Start: 08-14-2023 End: 08-15-2023 Dr. Rosalind Rubalcava Work Phone: [facility] Work Phone: Start: 2023 End: 08-13-2023 ambulatory ROSALIND RUBALCAVA MD Facility:B Start: 2023 End: 08-13-2023 Outreach Lab ROSALIND RUBALCAVA MD [facility] Start: 08-04-2023 End: 08-04-2023 ambulatory ROSALIND RUBALCAVA MD Facility:B Start: 05-17-2023 End: 06-10-2023 Evaluation and management of inpatient Dr. Rosalind Rubalcava Work Phone: [facility]Trans[facility] Start: 05-17-2023 End: 06-10-2023 Dr. Rosalind Rubalcava Work Phone: [facility] Start: 05-17-2023 Non-patient / Non-visit Dr. Rosalind Rubalcava Work Phone: [facility] Work Phone: Start: 05-17-2023 Dr. Rosalind willis Work Phone: [facility] Work Phone: Start: 05-16-2023 Non-patient / Non-visit Dr. Rosalind Rubalcava Work Phone: [facility] Work Phone: Start: 05-16-2023 Dr. Rosalind willis Work Phone: [facility] Work Phone: Start: 05-15-2023 Non-patient / Non-visit Dr. Rosalind Rubalcava Work Phone: [facility] Work Phone: Start: 05-15-2023 Dr. Rosalind willis Work Phone: [facility] Work Phone: Start: 05-14-2023 Non-patient / Non-visit Dr. Rosalind Rubalcava Work Phone: [facility] Work Phone: Start: 05-14-2023 Dr. Rosalind willis Work Phone: [facility] Work Phone: Start: 05-14-2023 Non-patient / Non-visit Dr. Rosalind Rubalcava Work Phone: [facility] Start: 05-14-2023 Dr. Rosalind willis Work Phone: [facility] Start: 05-13-2023 Non-patient / Non-visit Dr. Rosalind Rubalcava Work Phone: [facility] Start: 05-13-2023 Dr. Rosalind willis Work Phone: [facility] Start: 05-13-2023 End: 05-17-2023 Evaluation and management of inpatient Dr. Rosalind Rubalcava [facility] Work Phone: Start: 05-13-2023 Non-patient / Non-visit Dr. Rosalind Rubalcava Work Phone: [facility] Work Phone: Start: 05-13-2023 End: 05-17-2023 Dr. Rosal[facility]alcava [facility] Work Phone: Start: 04-20-2023 End: 04-20-[address] Rosalind Rubalcava Work Phone: [facility] Work Phone: Start: 04-20-2023 End: 04-20-2023 Dr. Rosalind Rubalcava Work Phone: [facility] Work Phone: Start: 03-04-2023 End: 03-08-2023 Outreach Lab [place] SCAFFOLDER-ERECTING ENGINEER [facility] Start: 12-17-2022 End: 12-17-2022 Patient encounter procedure ROSALIND RUBALCAVA MD [facility] Start: 05-11-2022 End: 05-11-2022 Patient encounter procedure ROSALIND RUBALCAVA MD [facility] Start: 04-06-2022 End: 04-06-2022 Patient encounter procedure Tejal Rivera MD Work Phone: Urology Comment on above: Urge incontinence (P rimary Dx) Start: 03-24-2022 End: 03-24-2022 Patient encounter procedure TEJAL RIVERA MD [facility] Start: 03-23-2022 Telephone encounter Tejal Rivera MD Work Phone: Urology Comment on above: Orders Start: 02-19-2022 End: 02-23-2022 Outreach Lab [place] SCAFFOLDER-ERECTING ENGINEER [facility] Start: 11-10-2021 End: 11-10-2021 Patient encounter procedure ROSALIND RUBALCAVA MD [facility] Start: 09-17-2021 End: 09-21-2021 Outreach Lab BASILIA Ball SHMUEL [facility] Start: 09-02-2021 End: 09-02-2021 Patient encounter procedure [...] Nocturia Start: 08-16-2018 Patient encounter SAMIR Owen acility:[facility] Start: 07-19-2018 Patient encounter TEJAL RIVERA Facility:[facility] Start: 07-13-2018 End: 07-13-2018 Patient encounter SAMIR ARYA Facility:[facility] Start: 07-03-2018 Patient encounter JONA JUAN A Lexie acility:[facility] Start: 06-15-2018 End: 06-15-2018 Patient encounter SAMIRDEMETRIO BEJARANO Facility:[facility] Start: 05-15-2018 Patient encounter SAMIR Owen acility:[facility] Start: 04-13-2018 End: 04-13-2018 Patient encounter SAMIRDEMETRIO BEJARANO Facility:[facility] Start: 03-22-2018 End: 03-22-2018 Patient encounter SAMIR BEJARANO Facility:[facility] Start: 03-15-2018 Patient encounter SAMIR Owen acility:[facility] Start: 02-22-2018 End: 02-22-2018 Patient encounter SAMIR ARYA Facility:[facility] Start: 01-26-2018 End: 01-26-2018 Patient encounter JONA VELAZCO Facility:[facility] Start: 01-16-2018 Patient encounter ROSALIND calderaty:[facility] Start: 01-11-2018 End: 01-11-2018 Patient encounter TEJAL RIVERA Facility:[facility] Start: 12-28-2017 End: 12-29-2017 Patient encounter JONA VELAZCO Facility:[facility] Start: 12-28-2017 End: 12-28-2017 Patient encounter JONA VELAZCO Facility:[facility] Start: 10-06-2017 End: 10-06-2017 Patient encounter JONA VELAZCO Facility:[facility] Start: 09-20-2017 Patient encounter TEJAL RIVERA Facility:[facility] Start: 08-19-2017 End: 08-19-2017 [facility] Procedures Date Procedure Procedure Detail Performing Clinician Start: 04-15-2025 Blood count smear mcrscp w/mnl difrntl wbc count Dr. Rosalind Rubalcava MD Work Phone: Start: 04-15-2025 Mean corpuscular hemoglobin concentration determination Dr. Rosalind Rubalcava MD Work Phone: Start: 04-15-2025 Nucleated red blood cell count procedure Dr. Rosalind Rubalcava MD Work Phone: Start: 04-15-2025 Platelet mean volume determination Dr. Rosalind Rubalcava MD Work Phone: Start: 03-11-2025 Blood count smear mcrscp w/mnl [...] Coronary artery bypass grafts x 4 JING Ayesha MI DO Comment on above: CABG x [...] Date Care Activity Detail Author Start: 11-20-2023 [facility] Start: 08-15-[address] [facility] Start: 08-15-2023 Oxygen therapy [facility] Start: 08-14-2023 Ambulation without limitation [facility] Start: 08-14-2023 Assessment of risk o f venous thromboembolism [facility] Start: 08-14-2023 Care regimes management [facility] Start: 08-14-2023 Insertion of cathete r into peripheral vein [facility] Start: 08-14-2023 Notification of physician [facility] Start: 08-14-2023 Providing care accor ding to standard [facility] Start: 08-14-2023 Referral to occupati onal therapist [facility] Start: 08-14-2023 Referral to service [facility] Start: 08-14-[address] [facility] Start: 08-14-2023 Admission procedure [facility] Start: 08-14-2023 Hospital admission, emergency, from emergency room, medical nature [facility] Start: 08-14-2023 End: 08-14-2023 [facility] Start: 08-14-2023 End: 08-14-2023 Blood culture [facility] Start: 06-10-2023 Development of care plan [facility] Start: 06-10-[address] [facility] Start: 06-09-2023 [facility] Start: 06-07-2023 Referral to service [facility] Start: 06-06-2023 [facility] Start: 06-02-2023 [facility] Start: 05-31-2023 End: 06-01-2023 [facility] Start: 05-31-2023 [facility] Start: 05-19-2023 Speech therapy management [facility] Start: 05-18-2023 Speech therapy assessment [facility] Start: 05-18-2023 Development of care plan [facility] Start: 05-18-2023 Developing a treatme nt plan [facility] Start: 05-17-2023 Admission procedure [facility] Start: 05-17-2023 Measuring intake and output [facility] Start: 05-17-2023 Patient referral to dietitian [facility] Start: 05-17-2023 Referral to occupati onal therapist [facility] Start: 05-17-2023 Referral to service [facility] Start: 05-17-2023 Vital signs measurements [facility] Start: 05-17-2023 [facility] Start: 05-17-2023 Following clinical p athway protocol [facility] Start: 05-17-[address] [facility] Start: 05-17-2023 Patient referral to dietitian [facility] Start: 05-16-2023 [facility] Start: 05-13-2023 [facility] Start: 05-13-2023 Catheterization of vein [facility] Start: 05-13-2023 Cardiac monitoring [facility] Start: 05-13-2023 Catheterization of vein [facility] Start: 05-13-2023 Continuous pulse oximetry [facility] Start: 05-13-2023 Notification of physician [facility] Start: 05-13-2023 Application of intermittent pneumatic compression device [facility] Start: 05-13-2023 Aspiration precautions [facility] Start: 05-13-2023 Assessment of risk o f venous thromboembolism [facility] Start: 05-13-2023 Care regimes management [facility] Start: 05-13-2023 Fall prevention [facility] Start: 05-13-2023 Insertion of cathete r into peripheral vein [facility] Start: 05-13-2023 Introduction of urin sumeet catheter [facility] Start: 05-13-2023 Measuring intake and output [facility] Start: 05-13-2023 Notification of physician [facility] Start: 05-13-2023 Oxygen therapy [facility] Start: 05-13-2023 Providing care accor ding to standard [facility] Start: 05-13-2023 Provision of activit y privileges [facility] Start: 05-13-2023 Referral to gastroenterology service [facility] Start: 05-13-2023 Referral to occupati onal therapist [facility] Start: 05-13-2023 Referral to service [facility] Start: 05-13-2023 Following clinical p athway protocol [facility] Start: 05-13-2023 Admission procedure [facility] Start: 05-13-2023 Inhalation therapy procedure [facility] Start: 05-13-2023 End: 05-13-2023 [facility] Start: 05-12-2023 End: 05-12-2023 Blood culture [facility] Start: 05-12-2023 Bacteria identified in Blood by Culture Blood Culture [facility] Start: 09-29-2022 End: 11-29-2022 Bacteria identified in Urine by Culture URINE CULTURE Microbiology Routine Urge incontinence Expected: 09/29/2022 (Approximate), Expires: 11/29/2022 [facility] Work Phone: Comment on above: Expected: 09/29/2022 (Approximate), Expires: 11/29/2022 Start: 06-03-2022 Influenza vaccination INFLUENZA (#1) [facility] Start: 03-23-2022 End: 03-23-2023 Bacteria identified in Urine by Culture URINE CULTURE Microbiology Routine Urinary tract infection without hematuria, site unspecified Expected: 03/23/2022, Expires: 03/23/2023 [facility] Work Phone: Comment on above: Expected: 03/23/2022 , Expires: 03/23/2023 Start: 12-06-2021 COVID-19 VACCINE (4 - Booster for Moderna series) COVID-19 VACCINE (4 - Booster for Moderna series) [facility] Start: 10-03-2021 ADVANCE DIRECTIVE DISCUSSION ADVANCE DIRECTIVE DISCUSSION [facility] Start: 06-19-2021 COVID-19 VACCINE (3 - Booster for Moderna series) COVID-19 VACCINE (3 - Booster for Moderna series) [facility] Start: 06-03-2021 Influenza vaccination INFLUENZA (#1) [facility] Start: 2007 ADVANCE DIRECTIVE DISCUSSION ADVANCE DIRECTIVE DISCUSSION [facility] Start: 2007 BONE DENSITY BONE DENSITY [facility] Start: 2007 PNEUMOCOCCAL: 65+ (1 - PCV) PNEUMOCOCCAL: 65+ (1 - PCV) [facility] Start: 2007 PNEUMOVAX AGE 65 AND OVER WITH 5YR LOOKBACK (#1) PNEUMOVAX AGE 65 AND OVER WITH 5YR LOOKBACK (#1) [facility] Start: 1992 SHINGRIX VACCINE (1 of 2) SAM GRIX VACCINE (1 of 2) [facility] Start: 1987 DIABETES SCREEN DIABETES SCREEN [facility] Start: 1961 Urine microalbumin profile DTA P,TDAP,TD (1 - Tdap) [facility] Start: 1960 HEPATITIS C SCREENING HEPATITIS C SC REENING [facility] Start: 1954 Adult depression scr eening assessment DEPRESSION SCREENING [facility] Patient Education ED Fracture, V ertebral Compression ED Hematoma [facility] Work Phone: Patient referral [facility] Work Phone: [facility] Immunizations Immunization Date Immunization Notes Care Provider Fa [facility] 05-26-2023 Covid Moderna Bivale nt Booster Dr. Rosalind Rubalcava Work Phone: [facility] 05-26-2023 SARS-CoV-2 (CV19)mRNA-1273 bivalent vac 1 ROSALIND RUBALCAVA MD [facility] Comment on above: Result Comment: 2022: [id number] 07-01-2022 influenza virus vacc ine, unspecified formulation ROSALIND RUBALCAVA MD [facility] 08-08-2021 SARS-CoV-2 (COVID-19 ) mRNA-1273 vaccine BASILIA MI DO [facility] Comment on above: Result Comment: 2020: [id number] 06-25-2021 influenza virus vacc ine, unspecified formulation BASILIA IM DO [facility] 06-25-2021 Influenza, high dose seasonal Dr. Rosalind Rubalcava MD Work Phone: [facility] 06-25-2021 influenza, high dose seasonal, preservative-free Dr. Rosalind Rubalcava Work Phone: [facility] 12-22-2020 Covid (Moderna) Dr. Rosalind evans Work Phone: [facility] 12-17-2020 SARS-CoV-2 (COVID-19 ) mRNA-1273 vaccine BASILIA MI DO [facility] Comment on above: Result Comment: 2020: [id number] 11-20-2020 SARS-CoV-2 (COVID-19 ) mRNA-1273 vaccine BASILIA MI DO [facility] 09-16-2020 zoster vaccine recombinant BASILIA MI DO [facility] 07-25-[address] Rosalind Rubalcava Work Phone: [facility] 07-16-2020 zoster vaccine recombinant BASILIA MI DO [facility] 06-25-2020 influenza virus vacc ine, unspecified formulation BASILIA MI DO [facility] 06-25-2020 influenza, injectabl e, quadrivalent, preservative free Dr. Rosalind Rubalcava Work Phone: [facility] 06-10-2020 influenza virus vacc ine, unspecified formulation BASILIA MI DO [facility] 06-10-2020 Influenza, high dose seasonal Dr. Rosalind Rubalcava MD Work Phone: [facility] 06-10-2020 influenza, high dose seasonal, preservative-free Dr. Rosalind Rubalcava Work Phone: [facility] 07-11-2019 influenza, injectabl e, quadrivalent, preservative free; Translations: [Fluarix PF Quadrivalent ] BASILIA MI DO [facility] 06-03-2018 influenza virus vacc ine, unspecified formulation BASILIA MI DO [facility] 06-03-2018 influenza, injectabl e, quadrivalent, preservative free Dr. Rosalind Rubalcava Work Phone: [facility] 08-16-2017 tetanus toxoid, redu chiqui diphtheria toxoid, and acellular pertussis vaccine, adsorbed BASILIA MI DO [facility] 07-13-[address] Rosalind Rubalcava Work Phone: [facility] 07-13-2017 influenza, injectabl e, quadrivalent, preservative free BASILIA MI DO [facility] 10-27-2016 pneumococcal conjuga te vaccine, 13 valent BASILIA MI DO [facility] 06-11-2016 influenza virus vacc ine, unspecified formulation BASILIA MI DO [facility] 06-11-2016 influenza, injectabl e, quadrivalent, preservative free Dr. Rosalind Rubalcava Work Phone: [facility] 08-26-2015 influenza virus vacc ine, unspecified formulation BASILIA MI DO [facility] 08-26-2015 influenza, injectabl e, quadrivalent, preservative free Dr. Rosalind Rubalcava Work Phone: [facility] 08-23-2014 influenza virus vacc ine, unspecified formulation BASILIA MI DO [facility] 08-23-2014 influenza, injectabl e, quadrivalent, preservative free Dr. Rosalind Rubalcava Work Phone: [facility] 02-06-2013 pneumococcal polysaccharide vaccine, 23 valent BASILIA MI DO [facility] 04-08-2011 zoster vaccine, live BASILIA MI DO [facility] 07-04-2009 influenza, injectabl e, quadrivalent, preservative free Dr. Rosalind Rubalcava Work Phone: [facility] 08-16-2002 pneumococcal polysaccharide vaccine, [address] Rosalind Rubalcava Work Phone: [facility] Payers Date Payer Category Payer Self-pay [id number] 2016 Unknown [id number] 2014 Unknown [id number] 1942 Unknown [id number] 2.16.8 [id number] 1942 Unknown [id number] 2.16.8 [id number] 1942 Unknown [id number] 2.16.8 [id number] 1942 Unknown [id number] 2.16.8 [id number] 1942 Unknown [id number] 2.16.8 [id number] 1942 Unknown [id number] 2.16.8 [id number] 1942 Unknown [id number] 2.16.8 [id number] 1942 Unknown [id number] 2.16.8 [id number] 1942 Unknown [id number] 2.16.8 [id number] 1942 Unknown [id number] 2.16.8 [id number] 1942 Unknown [id number] 2.16.8 [id number] 1942 Unknown [id number] 2.16.8 [id number] 1942 Unknown [id number] 2.16.8 40.1.508704.3.579.2.278 1940 Unknown [id number] 2.16.8 40.1.016745.3.579.2.278 1940 Unknown [id number] 2.16.8 40.1.195101.3.579.2.278 1940 Unknown [id number] 2.16.8 40.1.592487.3.579.2.278 1940 Unknown [id number] 2.16.8 40.1.686244.3.579.2.278 1940 Unknown [id number] 2.16.8 40.1.110912.3.579.2.278 1940 Unknown [id number] 2.16.8 40.1.839414.3.579.2.627 1940 Unknown [id number] 2.16.8 40.1.476652.3.579.2.627 1940 Unknown [id number] 2.16.8 40.1.974182.3.579.2.627 1940 Unknown [id number] 2.16.8 40.1.764965.3.579.2.62 1940 Unknown [id number] 2.16.8 40.1.910272.3.579.2.627 1940 Unknown [id number] 2.16.8 40.1.297514.3.579.2.627 1940 Unknown [id number] 2.16.8 40.1.069398.3.579.2.627 Unknown [id number] 2.16.8 40.1.202311.3.579.2.462 Unknown [id number] 2.16.8 40.1.163890.3.579.2.462 Unknown [id number] 2.16.8 40.1.533301.3.579.2.462 Unknown [id number] 2.16.8 40.1.706619.3.579.2.462 Unknown [id number] 2.16.8 40.1.262538.3.579.2.462 Unknown [id number] 2.16.8 40.1.106732.3.579.2.462 Unknown [id number] 2.16.8 40.1.795138.3.579.2.462 Unknown [id number] 2.16.8 40.1.176333.3.579.2.462 Unknown [id number] 2.16.8 40.1.972692.3.579.2.462 Unknown [id number] 2.16.8 40.1.759435.3.579.2.462 Unknown [id number] 2.16.8 40.1.185213.3.579.2.462 Unknown [id number] 2.16.8 40.1.370363.3.579.2.462 Unknown [id number] 2.16.8 40.1.274018.3.579.2.462 Unknown [id number] 2.16.8 40.1.754987.3.579.2.462 Unknown [id number] 2.16.8 40.1.638537.3.579.2.462 Unknown [id number] 2.16.8 40.1.612390.3.579.2.462 Unknown [id number] 2.16.8 40.1.833033.3.579.2.462 Unknown [id number] 2.16.8 40.1.440713.3.579.2.462 Unknown [id number] 2.16.8 40.1.151132.3.579.2.462 Unknown [id number] 2.16.8 40.1.393180.3.579.2.462 Unknown [id number] 2.16.8 40.1.841540.3.579.2.462 Unknown [id number] 2.16.8 40.1.060031.3.579.2.462 Unknown [id number] 2.16.8 40.1.568736.3.579.2.462 Unknown [id number] 2.16.8 40.1.247193.3.579.2.462 Unknown [id number] 2.16.8 40.1.073986.3.579.2.462 Unknown [id number] 2.16.8 40.1.288760.3.579.2.462 Unknown [id number] 2.16.8 40.1.863891.3.579.2.462 Unknown [id number] 2.16.8 40.1.205693.3.579.2.462 Unknown [id number] 2.16.8 40.1.452593.3.579.2.462 Unknown [id number] 2.16.8 40.1.409166.3.579.2.462 Unknown [id number] 2.16.8 40.1.668367.3.579.2.462 Unknown [id number] 2.16.8 40.1.515160.3.579.2.462 Unknown [id number] 2.16.8 40.1.153052.3.579.2.462 Unknown [id number] 2.16.8 40.1.573802.3.579.2.462 Unknown [id number] 2.16.8 40.1.455235.3.579.2.462 Unknown [id number] 2.16.8 40.1.261059.3.579.2.462 Unknown [id number] 2.16.8 40.1.337968.3.579.2.462 Unknown [id number] 2.16.8 40.1.721852.3.579.2.462 Unknown [id number] 2.16.8 40.1.278118.3.579.2.462 Unknown [id number] 2.16.8 40.1.880800.3.579.2.462 Unknown [id number] 2.16.8 40.1.208342.3.579.2.462 Social History Date Type Detail Facility Start: 06-17-2021 End: 07-17-2024 Tobacco smoking status NHIS Former smoker [facility] Comment on above: Tobacco/Smoke Exposu re: none Start: 08-19-2017 End: 06-17-2021 Tobacco use and exposure Never used [facility] Start: 06-17-2021 End: 04-06-2022 Alcohol intake Current non-drinker of alcohol (finding) [facility] Start: 1940 Sex Assigned At Not on file [facility] Exposure to SARS-CoV-2 (event) Not sure [facility] Start: 04-13-2019 Never smoked t obacco (finding) [facility] Comment on above: Tobacco/Smoke Exposu re: none Start: 1940 Sex Assigned At Female [facility] Start: 05-13-2023 End: 11-20-2023 Tobacco smoking status NHIS Unknown if ever smoked [facility] Start: 01-19-2021 None [facility] Start: 01-19-2021 Alone [facility] Start: 09-14-2017 Non-smoker [facility] Start: 01-02-2025 End: 01-09-2025 Sex Female (finding) [facility] NEGATED: Highlighted row [facility] [...] twice daily. BD UF MINI PEN NEEDLE [id number] Start: 02-04-[address] Strips Start: 04-09-2020 Lancets Start: 11-16-2019 BD UF MINI PEN NEEDLE [id number] Start: 02-04-[address] Strips Start: 04-09-2020 Lancets Start: 11-16-2019 BD UF MINI PEN NEEDLE [id number], See Instructions, USE DIRECTED TWICE A DAY, # 100 syringe, 11 Refill(s), Pharmacy: [facility], 158.75, cm, 12/13/19 11:28:00 EDT, Height, 89.6, kg, 12/13/19 11:28:00 EDT, Dosing Weight Start: 02-04-2020 See Instructions , 3 bottle of 100, testing once daily, 90 day supply DX: E11.9, # 300 EA, 3 Refill(s), [facility], Diabetes, 158, cm, 04/09/20 16:02:00 EDT, Height, 90.8, kg, 04/09/20 16:02:00 EDT, Dosing Weight Start: 04-09-2020 See Instructions , Micro Thin lancets 33G use as directed once daily box of 100 DX E11.09, # 1 EA, 11 Refill(s), Pharmacy: [facility], 158, cm, 11/14/19 13:17:00 EST, Height, 88.8, kg, 11/14/19 13:17:00 EST, Dosing Weight Start: 11-16-2019 See Instructions , qs for 1 month supply, BD UF mini pen needles [id number], DX: E11.9, # 1 EA, 11 Refill(s), [facility], 157.5, cm, 11/04/20 13:17:00 EST, Height, 90.7, kg, 11/04/20 13:17:00 EST, Dosing Weight Start: 11-04-2020 BD UF MINI PEN NEEDLE [id number], See Instructions, USE DIRECTED TWICE A DAY, # 100 syringe, 11 Refill(s), Pharmacy: [facility], 158.75, cm, 12/13/19 11:28:00 EDT, Height, 89.6, kg, 12/13/19 11:28:00 EDT, Dosing Weight Start: 02-04-2020 See Instructions , 3 bottle of 100, testing once daily, 90 day supply DX: E11.9, # 300 EA, 3 Refill(s), [facility], Diabetes, 158, cm, 04/09/20 16:02:00 EDT, Height, 90.8, kg, 04/09/20 16:02:00 EDT, Dosing Weight Start: 04-09-2020 See Instructions , Micro Thin lancets 33G use as directed once daily box of 100 DX E11.09, # 1 EA, 11 Refill(s), [facility], 158, cm, 11/14/19 13:17:00 EST, Height, 88.8, kg, 11/14/19 13:17:00 EST, Dosing Weight Start: 11-16-2019 See Instructions , qs for 1 month supply, BD UF mini pen needles [id number], DX: E11.9, # 1 EA, 11 Refill(s), [facility], 157.5, cm, 11/04/20 13:17:00 EST, Height, 90.7, kg, 11/04/20 13:17:00 EST, Dosing Weight Start: 11-04-2020 BD UF MINI PEN NEEDLE [id number], See Instructions, USE DIRECTED TWICE A DAY, # 100 syringe, 11 Refill(s), Pharmacy: [facility], 158.75, cm, 12/13/19 11:28:00 EDT, Height, 89.6, kg, 12/13/19 11:28:00 EDT, Dosing Weight Start: 02-04-2020 See Instructions , 3 bottle of 100, testing once daily, 90 day supply DX: E11.9, # 300 EA, 3 Refill(s), [facility], Diabetes, 158, cm, 04/09/20 16:02:00 EDT, Height, 90.8, kg, 04/09/20 16:02:00 EDT, Dosing Weight Start: 04-09-2020 See Instructions , Micro Thin lancets 33G use as directed once daily box of 100 DX E11.09, # 1 EA, 11 Refill(s), Pharmacy: [facility] #4[facility], 158, cm, 11/14/19 13:17:00 EST, Height, 88.8, kg, 11/14/19 13:17:00 EST, Dosing Weight Start: 11-16-2019 See Instructions , qs for 1 month supply, BD UF mini pen needles [id number], DX: E11.9, # 1 EA, 11 Refill(s), [facility], 157, cm, 04/07/22 10:54:00 EDT, Height, 86.3, kg, 04/07/22 10:54:00 EDT, Dosing Weight Start: 04-14-2022 BD UF MINI PEN NEEDLE [id number], See Instructions, USE DIRECTED TWICE A DAY, # 100 syringe, 11 Refill(s), Pharmacy: [facility], 158.75, cm, 12/13/19 11:28:00 EDT, Height, 89.6, [...] month supply, BD UF mini pen needles [id number], DX: E11.9, # 1 EA, 11 Refill(s), Pharmacy: [facility], 157, cm, 04/07/22 10:54:00 EDT, Height, 86.3, kg, 04/07/22 10:54:00 EDT, Dosing Weight Start: 04-14-2022 BD UF MINI PEN NEEDLE [id number], See Instructions, USE DIRECTED TWICE A DAY, # 100 syringe, 11 Refill(s), Pharmacy: [facility], 158.75, cm, 12/13/19 11:28:00 EDT, Height, 89.6, [...] month supply, BD UF mini pen needles [id number], DX: E11.9, # 1 EA, 11 Refill(s), [facility], 157, cm, 04/07/22 10:54:00 EDT, Height, 86.3, kg, 04/07/22 10:54:00 EDT, Dosing Weight Start: 04-14-2022 BLADDER STIMULATOR FDA Start: BLADDER STIMULATOR FDA Start: BD UF MINI PEN NEEDLE [id number], See Instructions, USE DIRECTED TWICE A DAY, # 100 syringe, 11 Refill(s), Pharmacy: [facility], 158.75, cm, 12/13/19 11:28:00 EDT, Height, 89.6, [...] month supply, BD UF mini pen needles [id number], DX: E11.9, # 1 EA, 11 Refill(s), Pharmacy: [facility], 155, cm, 06/16/23 13:11:00 EDT, Height, 85.5, kg, 06/16/23 12:56:00 EDT, Dosing Weight Start: 07-12-2023 FDA Start: FDA Start: BD UF MINI PEN NEEDLE [id number], See Instructions, USE DIRECTED TWICE A DAY, # 100 syringe, 11 Refill(s), Pharmacy: [place] [id number], 158.75, cm, 12/13/19 11:28:00 EDT, Height, 89.6, [...] month supply, BD UF mini pen needles [id number], DX: E11.9, # 1 EA, 11 Refill(s), Pharmacy: [facility] [address], 155, cm, 06/16/23 13:11:00 EDT, Height, 85.5, kg, 06/16/23 12:56:00 EDT, Dosing Weight Start: 07-12-2023 BLADDER STIMULATOR FDA Start: BLADDER STIMULATOR FDA Start: BLADDER STIMULATOR FDA Start: BLADDER STIMULATOR FDA Start: BLADDER STIMULATOR FDA Start: BD UF MINI PEN NEEDLE [id number], See Instructions, USE DIRECTED TWICE A DAY, # 100 syringe, 11 Refill(s), Pharmacy: [facility], 158.75, cm, 12/13/19 11:28:00 EDT, Height, 89.6, kg, 12/13/19 11:28:00 EDT, Dosing Weight Start: 02-04-2020 See Instructions , 3 bottle of 100, testing once daily, 90 day supply DX: E11.9, # 300 EA, 3 Refill(s), Pharmacy: [facility], Diabetes, 154, cm, 08/31/23 11:39:00 EST, Height, 81, kg, 08/31/23 11:39:00 EST, Dosing Weight Start: 10-14-2023 See Instructions , Micro Thin lancets 33G use as directed once daily box of 100 DX E11.09, # 1 EA, 11 Refill(s), Pharmacy: [facility], 154, cm, 08/31/23 11:39:00 EST, Height, 81, kg, 08/31/23 11:39:00 EST, Dosing Weight Start: 10-14-2023 See Instructions , qs for 1 month supply, BD UF mini pen needles [id number], DX: E11.9, # 1 EA, 11 Refill(s), Pharmacy: [facility] [address], 154, cm, 08/31/23 11:39:00 EST, Height, 81, kg, 08/31/23 11:39:00 EST, Dosing Weight Start: 10-13-2023 BLADDER STIMULATOR FDA Start: BLADDER STIMULATOR FDA Start: BLADDER STIMULATOR FDA Start: BLADDER STIMULATOR FDA Start: BLADDER STIMULATOR FDA Start: BLADDER STIMULATOR FDA Start: FDA Start: FDA Start: FDA Start: FDA Start: Goals Date Patient Goal Desired Activity /State Functional Status Date Assessment Result Facility 08-15-2023 Functional status Bathroom Privilege [facility] Work Phone: 06-10-2023 Functional status Chair [facility] Work Phone: 06-10-2023 Functional status Fair [facility] Work Phone: 05-17-2023 Functional status Ambulates [facility] Work Phone: Mental Status Date Assessment Result Facility 08-14-2023 Cognitive function Voice/Name [facility] Work Phone: 08-14-2023 Cognitive function Awake;Alert;A ppropriate;Fol lows Commands [facility] Work Phone: 06-10-2023 Cognitive function Voice/Name [facility] Work Phone: 06-03-2023 Cognitive function Appropriate;Cooperativ e [facility] Work Phone: 05-17-2023 Cognitive function Voice/Name [facility] Work Phone: Clinical Notes 06-17-2021 to 07-19-2024 Note Date & Type Note Facility 07-19-2024 Note [facility] Medical Records Department [address] [place] [address] History Physical Exam 07/19/24 1004 MR#: [id number] Acct: [id number] Name: LUIZA GALO Rep #: [id number] : 1940 83 From: Doedom Orr DO PCP: Dr. Rosalind Rubalcava MD Status:[facility] Location: [place] [address] History and Physical Date of Admission: 07/19/24 LUIZA GALO, is a 83 F who presents to the office today for follow up. CT abd/pel with contrast 05.13.23 lung scarring; s/p CABG; coronary artery calcification; hepatic steatosis, with abnormal left lobe r/t intrahepatic biliary ductal dilation; s/p cholecystectomy; colonic diverticulosis ERCP 05.13.23 choledocholithiasis, biliary sphincterotomy, balloon extraction; middle MBD dilated; temporary stent placed in CBD. No specimens. HIDA 05.14.23 without acute/chronic finding; no bile leak. abd/pelvis CT .03.26 1. Stool within the distal sigmoid colon [...] Appearance: average body habitus and well nourished [facility] Head: normal to inspection Ears: hearing [...] once a d (more content not included)... [facility] 11-20-2023 Discharge summary Note Date/Time November 20, 2023 8:38pm [facility] Medical Records Department [address] [place] [address] Emergency Department Summary 11/20/23 MR#: [id number] Acct: [id number] Name: LUIZA GALO Rep #:[id number] : 1940 83 From: Lesley Lopez MD [...] on hydrocodone for pain without significant improvement. PFSH PFSH Medical History Anxiety and depression Ascending cholangitis Atherosclerosis of coronary artery of [place] heart without angina pectoris Bradycardia Diabetes mellitus [...] % (Auto) 53.4 Lymph % (Auto) 38.0 [place] % (Auto) 5.8 Eos % (Auto) 1.9 [...] I did give her information for Dr. Sniclair for follow-up if needed. Discharge Plan Triage [...] your Primary Care Provider. Call [facility] ([phone]) or report to the closest Emergency Room. Call 911 if necessary. 11/21/23 0040 <Electronically signed by Lesley Lopez MD> Cosigner Signature (if applicable): CC: Dr. Rosalind Rubalcava MD ~ Signed [facility] Work Phone: 1(852) 683-326311-13-2023 Progress note Author Cirilo Fine [facility] August 15, 2023 12:13pm Note Date/Time August 15, 2023 8:29am [facility] Medical Records Department [address] [place] [address] Progress Note - Hospitalist 08/15/23824 MR#: [id number] Acct: [id number] Name: LUIZA GALO Rep #:[id number] : 1940 83 From: Cirilo Fine DO PCP: Dr. Rosalind Rubalcava MD Status:ADM BJ Location: [place] [address] Reason for Visit Reason for Visit: Diagnoses [...] 88.1 H, Lymph % (Auto) 7.1 L, [place] % (Auto) 3.7, Eos % (Auto) 0.2, [...] Clarity Clear, Urine pH 6.0, Ur Specific [place] 1.020, Urine Protein 30 H, Urine Glucose [...] % (Auto) 69.3, Lymph % (Auto) 24.2, [place] % (Auto) 4.8, Eos % (Auto) 1.2, [...] 15:59 EST Reading Location ID and State: [facility] / [place] , Service support , Physical Exam Const [...] make adjustments as necessary ? Continue with Eliquyung, she also has a history of DVT/PE [...] Cosigner Signature (if applicable): CC: ~ Signed [facility] Work Phone: 1(431) 457-776011-12-2023 History and physical note Author Judson Hernandez [facility] August 14, 2023 4:28pm Note Date/Time August 14, 2023 3:02pm [facility] Medical Records Department [address] [place] [address] H&P Exam - Hospitalist 08/14/23 1458 MR#: [id number] Acct: [id number] Name: LUIZA GALO Rep #:[id number] : 1940 83 From: Judson rucker MD PCP: Dr. Rosalind Rubalcava MD Status:ADM BJ Location: [place] [address] HPI - General General Date of Admission: [...] pain. White count is little bit elevated andshe was recently treated for UTI with Cipro, UA is unremarkable from an infectious standpoint. She does have a history of C. difficile so if diarrhea continues may need to test. She was given fluids in the ED, renal function stable. [facility] Medical History Anxiety and depression Atherosclerosis of coronary artery of [place] heart without angina pectoris Bradycardia Diabetes mellitus Dysphagia Essential hypertension Former tobacco use GERD (gastroesophageal reflux disease) History of left heart catheterization (LHC) (~01/20/21) Hyperlipidemia Immunosuppression due to drug therapy 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 Morbid obesity MAIRVEL (obstructive sleep apnea) Osteoarthritis Paroxysmal atrial fibrillation [...] [History Last Taken Unknown] hydrocodone-acetaminophen 5-325mg 5mg-325mg ([place]) 1 tab PO Q8H PRN Pain 1-10 [...] 88.1 H, Lymph % (Auto) 7.1 L, [place] % (Auto) 3.7, Eos % (Auto) 0.2, [...] Clarity Clear, Urine pH 6.0, Ur Specific [place] 1.020, Urine Protein 30 H, Urine Glucose [...] make adjustments as necessary ? Continue with Violettaquyung, she also has a history of DVT/PE [...] with colleagues Charges/Coding Visit Charges Inpatient E&M: 27418 Init Hosp L3 08/14/23 1628 <Electronically signed by Judson Hernandez MD> Cosigner Signature (if applicable): CC: Dr. Judson Hernandez MD; Dr. Rosalind Rubalcava MD~ Signed [facility] Work Phone: 1(374) 185-921111-12-2023 Discharge summary Author Enrrique [place] [facility] August 14, 2023 4:21pm Note Date/Time August 14, 2023 12:51pm [facility] Medical Records Department [address] [place] [address] Emergency Department Summary 08/14/23 MR#: [id number] Acct: [id number] Name: LUIZA GALO Rep #:[id number] : 1940 83 From: Enrrique Ny PCP: Dr. Rosalind Rubalcava MD Status:ADM BJ Location: [place] [address] HPI History of Present Illness Chief Complaint: [...] chronic pain. Patient has had prescriptions for [place] in the past and vitals between constipation and loose stools. Most recently she has had a couple laxatives. [facility] Medical History Anxiety and depression Atherosclerosis of coronary artery of [place] heart without angina pectoris Bradycardia Diabetes mellitus [...] [History Last Taken Unknown] hydrocodone-acetaminophen 5-325mg 5mg-325mg ([place]) 1 tab PO Q8H PRN Pain 1-10 [...] 88.1 H Lymph % (Auto) 7.1 L [place] % (Auto) 3.7 Eos % (Auto) 0.2 [...] Clarity Clear Urine pH 6.0 Ur Specific [place] 1.020 Urine Protein 30 H Urine Glucose [...] febrile illness Disposition Disposition: Acute Care Hospital [facility] What to do if you have Problems For any increased pain, shortness of breath, bleeding, nausea or vomiting, chestpain, or any unexpected problems, contact your Primary Care Provider. Call [facility] ([phone]) or report to the closest Emergency Room. Call 911 if necessary. 08/14/23 1621 <Electronically signed by Enrrique Eric DO> Cosigner Signature (if applicable): CC: Dr. Rosalind Rubalcava MD ~ Signed [facility] Work Phone: 1(592) 926-578211-08-2023 Note. MICRO - Microbiology PROCEDURE: Urine Culture [*1] SOURCE: Urine, Clean Catch BODY SITE: COLLECTED DATE/TIME: 2023 17:30 EST RECEIVED DATE/TIME: 2023 19:45 EST START DATE/TIME: 2023 19:46 EST FREE TEXT SOURCE: FINAL REPORTS Final Report [] Verified Date/Time/Personnel: 08/10/2023 14:36 EST >100,000 cfu/ml Multiple bacterial morphotypes present. Probable Contamination. Suggest recollection if clinically indicated. Performing Locations *1: This test was performed at: [address], [facility] , [facility] ([place])06-10-2023 Hospital Discharge instructions Additional Instructions Discharge to [facility] 06/10/2023, [facility] PT/OT/[facility] Work Phone: 1(573) 876-169309-08-2023 Discharge summary Author Senthil Ortiz [facility] June 10, 2023 8:09am Note Date/Time June 07, 2023 8:55pm [facility] Medical Records Department [address] [place] [address] Discharge Summary 06/07/232050 MR#: [id number] Acct: [id number] Name: LUIZA GALO Rep #:[id number] : 1940 82 From: Senthil Ortiz MD PCP: Dr. Rosalind Rubalcava MD Status:ADM IN Location: [address] Date of Admission: 05/17/23 Primary Care Physician: [...] Code(s): I25.10 - Atherosclerotic heart disease of [place] coronary artery without angina pectoris (12) Hyperlipidemia: [...] without complications Qualifiers: Qualified Code(s): Z79.4 - snf (current) use of insulin; Z79.4 - snf (current) use of insulin; Z79.4 - snf (current) use of insulin; Z79.4 - snf (current) use of insulin (17) Restless leg [...] rehabilitation, strengthening, prior to discharge home to [facility]. * Debility - PT/OT. * Pain - Tylenol 1000mg q6h prn pain (1-5), [place] 5/325mg 1 tablet Q12H prn pain (6-10). * Bowel - Loperamide 4mg q2h prn. * Adult immunization - Administer pneumonia vaccine, covid19 vaccine, flu vaccine as appropriate. * DVT prophylaxis - on Eliquis. * Anxiety - Xanax 0.5mg 4x/day, stable chronic skilled nursing use, GDR not recommended. * Hypertension - Metoprolol succinate 25mg daily, Losartan 100mg daily, Amlodipine 5mg daily. * Atrial fibrillation - Metoprolol succinate 25mg daily, Eliquis 5mg bid. * Hyperlipidemia - Atorvastatin 40mg qhs. * Depression - Lexapro 10mg daily, Topamax 50mg bid, stable chronic skilled nursing use, GDR not recommended. * Edema - [...] Insomnia - Trazodone 300mg qhs, stable chronic skilled nursing use, GDR not recommended. * Vitamin D [...] Q4H PRN pain 05/19/22 hydrocodone-acetaminophen 5-325mg 5mg-325mg ([place]) 1 tab PO Q12H PRN Pain 1-10 [...] rehabilitation, strengthening, prior to discharge home to [facility]. Discharge to [facility] 06/10/2023, [facility] Care PT/OT/ST. Physical Exam Const alert General [...] and Uncontrolled pain Additional Instructions: Discharge to [facility] 06/10/2023, [facility] Care PT/OT/ST. Please Follow Up With: Friend,Doe, DO When: As scheduled. Meaningful Use Info Meaningful Use Diagnoses (Choose all that apply): None applicable Discharge Plan Admission Admit Date/Time: 05/17/23 18:15 Primary Reason for Your Visit: Debility. Attending Provider: Senthil Ortiz Chi Primary Care Provider: Rosalind Rubalcava Instructions Additional Instructions / Restrictions: Discharge to [facility] 06/10/2023, [facility] Care PT/OT/ST. Discharge Orders/Prescriptions Prescriptions: New metoprolol succinate 50 mg Tablet Extended Release 24 Hr 50 mg PO DAILY 30 Days Qty: 30 0RF Continued alprazolam 0.5 mg tablet 0.5 mg PO 4X/DAY montelukast 10 mg tablet 10 mg PO DAILY hydrocodone-acetaminophen [[place]] 5-325 mg tablet 1 tab PO Q12H [...] on 06/10/23 at 0809 Addendum Discharge to [facility] 06/10/2023, [facility] Care PT/OT/ST. 06/10/23 0809<Electronically signed by Senthil Ortiz MD> Cosigner Signature (if applicable): cc: Dr. Rosalind Rubalcava MD; Dr. Senthil Ortiz MD ~* Signed [facility] Work Phone: 1([phone]) 975-700209-08-2023 Discharge summary Author Senthil Angel [facility] June 10, 2023 8:09am Note Date/Time June 07, 2023 9:05pm [facility] Medical Records Department [address] [place] [address] Transfer to [facility] MR#: [id number] Acct: [id number] Name: LUIZA GALO Rep #:[id number] : 1940 82 From: Senthil Ortiz MD PCP: Dr. Rosalind Rubalcava MD Status:ADM IN Certification of patient admission REQUIRED AT TIME OF ADMISSION. I CERTIFY THAT [facility] SERVICES ARE REQUIRED TO BE GIVEN ON AN IN-PATIENT BASIS BECAUSE OF THE ABOVE NAMED PATIENT'S NEED FOR SENIOR CARE CARE ON A CONTINUING BASIS FOR THE CONDITION(S) FOR WHICH HE/SHE WAS RECEIVING IN-PATIENT HOSPITAL SERVICES PRIOR TO HIS/HER TRANSFER TO [facility]. 06/07/23 6066<Electronically signed by Senthil Ortiz MD> Diet Diet [...] Code(s): I25.10 - Atherosclerotic heart disease of [place] coronary artery without angina pectoris (12) Hyperlipidemia: [...] rehabilitation, strengthening, prior to discharge home to [facility]. * Debility - PT/OT. * Pain - Tylenol 1000mg q6h prn pain (1-5), [place] 5/325mg 1 tablet Q12H prn pain (6-10). * Bowel - Loperamide 4mg q2h prn. * Adult immunization - Administer pneumonia vaccine, covid19 vaccine, flu vaccine as appropriate. * DVT prophylaxis - on Eliquis. * Anxiety - Xanax 0.5mg 4x/day, stable chronic skilled nursing use, GDR not recommended. * Hypertension - Metoprolol succinate 25mg daily, Losartan 100mg daily, Amlod ipine 5mg daily. * Atrial fibrillation - Metoprolol succinate 25mg daily, Eliquis 5mg bid. * Hyperlipidemia - Atorvastatin 40mg qhs. * Depression - Lexapro 10mg daily, Topamax 50mg bid, stable chronic continuous churn buttermaker use, GDR not recommended. * Edema - [...] Insomnia - Trazodone 300mg qhs, stable chronic continuous churn buttermaker use, GDR not recommended. * Vitamin D [...] Than 30 Days Type of Care Needed: Shelter/Assisted Living Rehab Potential: Fair Prognosis: Fair Additional [...] Instructions Additional Instructions / Restrictions: Discharge to [facility] 06/10/2023, [facility] PT/OT/ST. Discharge Orders/Prescriptions Prescriptions: New metoprolol succinate 50 mg Tablet Extended Release 24 Hr 50 mg PO DAILY 30 Days Qty: 30 0RF Continued alprazolam 0.5 mg tablet 0.5 mg PO 4X/DAY montelukast 10 mg tablet 10 mg PO DAILY hydrocodone-acetaminophen [[place]] 5-325 mg tablet 1 tab PO Q12H [...] Hold Instructions: Ordered Rx Instructions: As directed Referrals / Follow Up: Rosalind Rubalcava MD [Primary Care Provider] - Disposition Disposition (needs filled in before D/C Order can be placed): Assisted Living (2) Fever Qualifiers: Fever type: unspecified Qualified Code(s): R50.9 - Fever, unspecified (12) Hyperlipidemia Qualifiers: Hyperlipidemia type: unspecified Qualified Code(s): E78.5 - Hyperlipidemia, unspecified (16) Diabetes mellitus Qualifiers: Qualified Code(s): Z79.4 - snf (current) use of insulin; 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 Rosalind Rubalcava MD ~ ADDENDUM by Dr. Senthil Ortiz MD on 06/10/23 at 0809 Addendum Discharge to [facility] 06/10/2023, [facility] Care PT/OT/ST. 06/10/23 0809 <Electronically signed by Senthil Ortiz MD> cc: Dr. Rosalind Rubalcava MD ~* Signed [facility] Work Phone: 1(901) 327-229908-30-2023 History and physical note Author Senthil Angel [facility] June 01, 2023 5:41pm Note Date/Time May 17, 2023 7: 14pm [facility] Medical Records Department [facility] [place] [address] History & Physical Exam 05/17/231913 MR#: [id number] Acct: [id number] Name: LUIZA GALO Rep #:[id number] : 1940 82 From: Senthil Ortiz MD PCP: Dr. Rosalind Rubalcava MD Status:ADM IN Location: [facility] T[facility]21-1 HPI - General General Date of Admission: 05/17/23 Date of Service: 05/18/23 Chief Complaint: Here for rehabilitation. HPI Narrative 05/12/2023 LUIZA GALO, is a 82 [facility]. 05/12/2023 EKG sinus rhythm [...] rehabilitation, strengthening, prior to discharge home to [facility]. 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. * Debility - PT/OT. * Pain - Tylenol 1000mg q6h prn pain (1-5), [place] 5/325mg 1 tablet Q12H prn pain (6-10). * Bowel - Loperamide 4mg q2h prn. * Adult immunization - Administer pneumonia vaccine, covid19 vaccine, flu vac cine as appropriate. * DVT prophylaxis - on Eliquis. * Anxiety - Xanax 0.5mg 4x/day, stable chronic skilled nursing use, GDR not recommended. * Hypertension - Metoprolol succinate 25mg daily, Losartan 100mg daily, Amlodipine 5mg daily. * Atrial fibrillation - Metoprolol succinate 25mg daily, Eliquis 5mg bid. * Hyperlipidemia - Atorvastatin 40mg qhs. * Depression - Lexapro 10mg daily, Topamax 50mg bid, stable chronic skilled nursing use, GDR not recommended. * Edema - [...] Insomnia - Trazodone 300mg qhs, stable chronic continuous churn buttermaker use, GDR not recomme nded. * Vitamin [...] MD; Dr. Senthil Ortiz MD ~* Signed [facility] Work Phone: 1(188) 472-209808-16-2023 Progress note Author Senthil Ortiz [facility] May 18, 2023 5:22pm Note Date/Time May 18, 2023 3: 14pm [facility] Medical Records Department [address] [place] [address] Progress Note - Pharmacy 05/18/23 1505 MR#: [id number] Acct: [id number] Name: LUIZA GALO Rep #:[id number] : 1940 82 From: Rosie Kitchen PCP: Dr. Rosalind Rubalcava MD Status:ADM IN Location: [facility]CU [facility]- Documented by User: Rosie Kitchen 05/18/23 15:29 [...] mls @ 15 mls/hr 05/17/23 18:56 IV .[id number] PRN Additional IVPB Infusion Sodium Chloride 250 mls @ 15 mls/hr 05/17/23 18:56 IV .[id number] PRN Saline Flush Insulin Glargine 40 unit [...] 1 dose of PRN acetaminophen (hip pain 8/10; requested Tylenol instead of [place]), and no doses of PRN [place]. Continue to monitor pain and for PRN [...] Continue to monitor for peripheral neuropathy and SMALL EQUIPMENT OPERATOR effects (Black Box Warning), tendon pain (black [...] GDR. Continue to monitor for s/s of SMALL EQUIPMENT OPERATOR effects (Beer?s Criteria) and respiratory depression, especially if the resident uses PRN doses of [place] (Black Box Warning), falls/fractures (BEERs medication) and [...] Comments to Recommendations by Pharmacy: Agree 05/18/23 9035 <Electronically signed by Rosie Kitchen> Rosie Kitchen Cosigner Signature (if applicable): 05/18/23 2991 <Electronically signed by Senthil Ortiz MD> CC: ~ Signed [facility] Work Phone: 1(893) 188-283008-15-2023 Discharge summary Author Alee Yao [facility] May 17, 2023 4:23pm Note Date/Time May 17, 2023 2: 44pm [facility] Medical Records Department [address] [place] [address] Discharge Summary 05/17/23 1443 MR#: [id number] Acct: [id number] Name: LUIZA GALO Rep #:[id number] : 1940 82 From: Alee Yao DO PCP: Dr. Rosalind Rubalcava MD Status:ADM IN Location: [address] Providers Date of Admission: 05/13/23 Primary Care Physician: Dr. 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 - Other skilled nursing (current) drug therapy (7) Hypotension: Status: Acute [...] Q4H PRN pain 05/19/22 hydrocodone-acetaminophen 5-325mg 5mg-325mg ([place]) 1 tab PO Q12H PRN Pain 1-10 [...] who presented to the emergency department at [facility] late in the evening on 05/12/2023 with [...] Final D/C Instructions Please Follow Up With: Friend,Doe, DO Meaningful Use Info Meaningful Use Diagnoses [...] mg tablet 10 mg PO DAILY hydrocodone-acetaminophen [[place]] 5-325 mg tablet 1 tab PO Q12H [...] Tremfya 100 mg/mL auto-injector 100 mg subcut .[id number] Referrals / Follow Up: Doe Orr DO [Med Staff - Active Staff] - See Referral Note (1-2 mos) Rosalind Rubalcava MD [Primary Care Provider] - Within 1 Month Disposition Disposition (needs filled in before D/C Order can be placed): [facility] Charges/Coding Visit Charges Inpatient E&M: 65098 SNF Disch >30 Min 05/17/23 1623 <Electronically signed by Alee Yao DO> Cosigner Signature (if applicable): CC: Dr. Alee Yao DO; Dr. Rosalind Rubalcava MD; Doe Orr DO~ Signed [facility] Work Phone: 1(283) [phone] Discharge summary Author Alee Yao [facility] May 17, 2023 2:43pm Note Date/Time May 17, 2023 2: 43pm [facility] Medical Records Department [address] [place] [address] Transfer to Extended Care MR#: [id number] Acct: [id number] Name: LUIZA GALO Rep #:[id number] : 1940 82 From: Alee Yao DO PCP: Dr. Rosalind Rubalcava MD Status:ADM IN Certification of patient admission REQUIRED AT TIME OF ADMISSION. I CERTIFY THAT POST-HOSPITAL ECF SERVICES ARE REQUIRED TO BE GIVEN ON AN IN-PATIENT BASIS BECAUSE OF THE ABOVE NAMED PATIENT'S NEED FOR SENIOR CARE CARE ON A CONTINUING BASIS FOR THE CONDITION(S) FOR WHICH HE/SHE WAS RECEIVING IN-PATIENT HOSPITAL SERVICES PRIOR TO HIS/HER TRANSFER TO [facility]. 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 Rosalind Rubalcava MD ~ [facility] Work Phone: 1(143) 876-928308-14-2023 Progress note Author Alee Yao [facility] May 16, 2023 3:31pm Note Date/Time May 16, 2023 3: 20pm [facility] Medical Records Department [facility] [place] [address] Progress Note - Hospitalist 05/16/23 1512 MR#: [id number] Acct: [id number] Name: LUIZA GALO Corrine Rep #:[id number] : 1940 82 From: Alee Yao DO PCP: Dr. Rosalind Rubalcava MD Status:ADM IN Location: MS3 TR682-7 Reason for Visit Reason for Visit: Fever/nausea/vomiting/confusion [...] % (Auto) 51.4, Lymph % (Auto) 39.1, [place] % (Auto) 5.8, Eos % (Auto) 2.6, [...] from insurance Charges/Coding Visit Charges Inpatient E&M: 78432 Subs Hosp L2 05/16/23 1531 <Electronically signed by Alee Yao DO> Cosigner Signature (if applicable): CC: ~ Signed [facility] Work Phone: 1(443) 477-199208-13-2023 Progress note Author Alee Yao [facility] May 15, 2023 1:25pm Note Date/Time May 15, 2023 1: 25pm [facility] Medical Records Department [address] [place] [address] Progress Note - Hospitalist 05/15/23 1316 MR#: [id number] Acct: [id number] Name: LUIZA GALO Rep #:[id number] : 1940 82 From: Alee Yao DO PCP: Dr. Rosalind Rubalcava MD Status:ADM IN Location: MS3 KN448-2 Reason for Visit Reason for Visit: Fever/nausea/vomiting/confusion [...] from insurance Charges/Coding Visit Charges Inpatient E&M: 78683 Subs Hosp L2 05/15/23 1320 <Electronically signed by Alee Yao DO> Cosigner Signature (if applicable): CC: ~ Signed [facility] Work Phone: [phone]) 803-825808-12-2023 Progress note Author Alee Yao [facility] May 14, 2023 12:25pm Note Date/Time May 14, 2023 12 :25pm [facility] Medical Records Department [address] [place] [address] Progress Note - Hospitalist 05/14/23 1215 MR#: [id number] Acct: [id number] Name: LUIZA GALO Rep #:[id number] : 1940 82 From: Alee Yao DO PCP: Dr. Rosalind Rubalcava MD Status:ADM IN Location: [place] [address]-1 Reason for Visit Reason for Visit: Fever/nausea/vomiting/confusion [...] (Auto) 70.2 H, Lymph % (Auto) 21.9, [place] % (Auto) 5.7, Eos % (Auto) 1.3, [...] no intubation Charges/Coding Visit Charges Inpatient E&M: 99750 Subs Hosp L2 05/14/23 1225 <Electronically signed by Alee Yao DO> Cosigner Signature (if applicable): CC: ~ Signed [facility] Work Phone: 1(755) 689-372508-12-2023 Progress note Author Doe Orr [facility] May 14, 2023 9:35am Note Date/Time May 14, 2023 9: 30am [facility] Medical Records Department [address] [place] [address] Progress Note - GI 05/14/23 0928 MR#: [id number] Acct: [id number] Name: LUIZA GALO Rep #:[id number] : 1940 82 From: Doe Orr DO PCP: Dr. Rosalind Rubalcava MD Status:ADM IN Location: MT3 EQ259-7 Subjective Subjective Patient underwent ERCP yesterday for [...] (Auto) 70.2 H, Lymph % (Auto) 21.9, [place] % (Auto) 5.7, Eos % (Auto) 1.3, [...] confirmed on 05/14/2023 07:03:41 (ET). Electronically Signed: Timotyh Lowe MD at 6:59 EDT , Physical [...] Plan 82 y/o who presents to the [facility] ED on 05/12/23 with history of onset [...] Treatment for bile leak would be 10 Uzbek stent across the ampulla. She has isalready in place. We will order a HIDA scan to see if she has any radiologic evidence of bile leak. Recommend to continue antibiotic therapy for total of 7 days. Charges/Coding Visit Charges Inpatient E&M: 89729 Subs Hosp L3 05/14/23 0935 <Electronically signed by Doe Orr DO> Cosigner Signature (if applicable): CC: ~ Signed [facility] Work Phone: 1(229) 118-695408-11-2023 Consult note Author Doe Orr [facility] May 13, 2023 4:32pm Note Date/Time May 13, 2023 4: 26pm [facility] Medical Records Department [address] [place] [address] Consultation - GI 05/13/23 0724 MR#: [id number] Acct: [id number] Name: LUIZA GALO Rep #:[id number] : 1940 82 From: Doe Orr DO PCP: Dr. Rosalind Rubalcava MD Status:ADM IN [facility] H[facility] Consult Data Date of Consult: 05/12/23 [...] and hypertension superimposed on diabetes mellitusand MARIVEL. [facility] Medical History Anxiety and depression Atherosclerosis of coronary artery of [place] heart without angina pectoris Bradycardia Diabetes mellitus [...] [History Last Taken Unknown] hydrocodone-acetaminophen 5-325mg 5mg-325mg ([place]) 1 tab PO Q12H PRN Pain 1-10 Or Fever 05/19/22 [History Last Taken Unknown] insulin degludec 200 unit/mL (3 mL) subcutaneous pen 40 unit subcut QHS /17/22 [History Last Taken Unknown] ropinirole 1 mg [...] mg/mL subcutaneous auto-injector (Tremfya) 100 mg subcut .[id number] 05/12/23 [History Last Taken Unknown] tizanidine 4 [...] 82.1 H, Lymph % (Auto) 10.1 L, [place] % (Auto) 6.4, Eos % (Auto) 0.3, [...] Clarity Clear, Urine pH 7.0, Ur Specific [place] 1.010, Urine Protein 15 H, Urine Glucose [...] 77.1 H, Lymph % (Auto) 15.5 L, [place] % (Auto) 6.5, Eos % (Auto) 0.2, [...] an 82 y/o who presents to the [facility] ED on 05/12/23 with history of onset [...] antibiotic therapy. Charges/Coding Visit Charges Inpatient E&M: 57885 Init Hosp L3 05/13/23 1632 <Electronically signed by Doedom Orr DO> Cosigner Signature (if applicable): CC: Dr. Octavia Gruber MD; Dr. Rosalind Rubalcava MD~ Signed [facility] Work Phone: 1(528) 401-577608-11-2023 Procedure [facility] 05-13-2023 Procedure [facility]08-11-2023 Consult note Author Alee Yao [facility] May 13, 2023 10:51am Note Date/Time May 13, 2023 10 :05am [facility] Medical Records Department [address] [place] [address] Pharmacokinetic/Renal -Consult 05/13/23 1004 MR#: [id number] Acct: [id number] Name: LUIZA GALO Rep #:[id number] : 1940 82 From: Dany Hairston PCP: Dr. Rosalind Rubalcava MD Status:ADM IN Location: [place] [address] Consult Antibiotic Management Pharmacy has been consulted [...] 0930 05/13/23 1006 <Electronically signed by Dany Pereyra r> Date _ Dany Hairston 05/13/23 1051 <Electronically signed by Alee Hatfield O> Cosigner Signature (if applicable): Date Alee Yao DO CC: ~ Signed [facility] Work Phone: 1(851) 562-268308-11-2023 Progress note Author Alee Yao [facility] May 13, 2023 7:49am Note Date/Time May 13, 2023 7: 21am [facility] Medical Records Department [address] [place] [address] Progress Note - Hospitalist 05/13/23 0709 MR#: [id number] Acct: [id number] Name: LUIZA GALO Rep #:[id number] : 1940 82 From: Alee Yao DO PCP: Dr. Rosalind Rubalcava MD Status:ADM IN [facility] Reason for Visit Reason for Visit: Fever/nausea vomiting/confusion Subjective Subjective Mrs. Galo is an 82-year-old white female with a complicated past medical history who presented to the emergency department at [facility] late last evening on 05/12/2023 with fevers [...] 82.1 H, Lymph % (Auto) 10.1 L, [place] % (Auto) 6.4, Eos % (Auto) 0.3, [...] Clarity Clear, Urine pH 7.0, Ur Specific [place] 1.010, Urine Protein 15 H, Urine Glucose [...] 77.1 H, Lymph % (Auto) 15.5 L, [place] % (Auto) 6.5, Eos % (Auto) 0.2, [...] Cosigner Signature (if applicable): CC: ~ Signed [facility] Work Phone: 1(514) [phone] History and physical note Author Octavia Gruber [facility] May 13, 2023 1:33am Note Date/Time May 13, 2023 12 :51am [facility] Medical Records Department [address] [place] [address] H&P Exam - Hospitalist 05/13/23 0049 MR#: [id number] Acct: [id number] Name: LUIZA GALO Rep #:[id number] : 1940 82 From: Octavia Gruber MD PCP: Dr. Rosalind Rubalcava MD Status:ADM IN [facility] HPI - General General Date of Admission: [...] Hx CVA, Obesity who presents to the [facility] ED on 05/12/23 with history of onset [...] and morphine 4 mg IV x 1. [facility] Medical History Anxiety and depression Atherosclerosis of coronary artery of [place] heart without angina pectoris Bradycardia Diabetes mellitus [...] [History Last Taken Unknown] hydrocodone-acetaminophen 5-325mg 5mg-325mg ([place]) 1 tab PO Q4H PRN Pain 1-10 [...] 100 mg/mL subcutaneous auto-injector (Tremfya) mg subcut .[id number] 05/12/23 [History Last Taken Unknown] tizanidine 4 [...] 82.1 H, Lymph % (Auto) 10.1 L, [place] % (Auto) 6.4, Eos % (Auto) 0.3, [...] Clarity Clear, Urine pH 7.0, Ur Specific [place] 1.010, Urine Protein 15 H, Urine Glucose [...] Hx CVA, Obesity who presents to the [facility] ED on 05/12/23 with history of onset [...] 16 minutes. Charges/Coding Visit Charges Inpatient E&M: 17652 Init Hosp L3 Procedures Hospitalists Procedures: 20073 Advncd Care Plan 30 Min 05/13/23 0133 <Electronically signed by Octavia Gruber MD> Cosigner Signature (if applicable): CC: Dr. Octavia Gruber MD; Dr. Rosalind Rubalcava MD~ Signed [facility] Work Phone: 1(661) [phone] Discharge summary Author Papo Morillo [facility] May 13, 2023 12:55am Note Date/Time May 12, 2023 10 :09pm [facility] Medical Records Department [address] [place] [address] Emergency Department Summary 05/12/23 MR#: [id number] Acct: [id number] Name: LUIZA GALO Rep #:[id number] : 1940 82 From: Papo Morillo MD [...] symptoms: Yes (Infection) Recent Illness/Hospitalization: No PFSH [facility] Medical History (Updated 05/13/23 @ 00:[address] Papo Morillo MD) Anxiety and depression Atherosclerosis of coronary artery of [place] heart without angina pectoris Bradycardia Diabetes mellitus Dysphagia Essential hypertension Former tobacco use GERD (gastroesophageal reflux disease) History of left heart catheterization (LHC) (~01/20/21) Hyperlipidemia snf (current) use of anticoagulants Morbid obesity MARIVEL [...] [History Last Taken Unknown] hydrocodone-acetaminophen 5-325mg 5mg-325mg ([place]) 1 tab PO Q4H PRN Pain 1-10 [...] 100 mg/mL subcutaneous auto-injector (Tremfya) mg subcut .[id number] 05/12/23 [History Last Taken Unknown] tizanidine 4 [...] CSF otorrhea orrhinorrhea. Negative Alanis sign over [place] sign. No septal deviation hematoma. No dental [...] 82.1 H Lymph % (Auto) 10.1 L [place] % (Auto) 6.4 Eos % (Auto) 0.3 [...] Clarity Clear Urine pH 7.0 Ur Specific [place] 1.010 Urine Protein 15 H Urine Glucose [...] Complaint: Fever Other Complaint: Fall ED Provider: Papo Morillo Dx/Rx/DC Orders Clinical Impression: Acute encephalopathy, snf (current) use of anticoagulants, H/O coronary artery bypass surgery, Diabetes mellitus, Essential hypertension, Hyperlipidemia, Jaundice, Fever Prescriptions: No Action aspirin 81 mg tablet,delayed release (DR/EC) 81 mg PO QDAY alprazolam 0.5 mg tablet 0.5 mg PO TID montelukast 10 mg tablet 10 mg PO DAILY hydrocodone-acetaminophen [[place]] 5-325 mg tablet 1 tab PO Q4H [...] PO Q8H Tremfya 100 mg/mL auto-injector subcut .[id number] atorvastatin 40 mg tablet 40 mg PO QDAY Qty: 30 6RF metoprolol succinate 50 mg tablet extended release 24 hr 50 mg PO DAILY Qty: 30 11RF Primary Care Provider: Roaslind Rubalcava Referrals: Rosalind Rubalcava MD [Primary Care Provider] - Disposition Disposition: Home, Self Care What to do if you have Problems For any increased pain, shortness of breath, bleeding, nausea or vomiting, chestpain, or any unexpected problems, contact your Primary Care Provider. Call [facility] ([phone]) or report to the closest Emergency Room. Call 911 if necessary. 05/13/23 0055 <Electronically signed by Papo Morillo MD> Cosigner Signature (if applicable): CC: Dr. Rosalind Rubalcava MD ~ Signed [facility] Work Phone: 1(669) 133-470307-05-2022 Nurse Note* Maggi Ellington RN - 04/06/2022 [...] mild discomfort is NA [facility]22 NoteHNO ID: [id number] Author: Tejal Rivera MD Service: ? Author [...] Plan Instruction Sheet Given[facility] History of Present illness Narrative* Tejal [...] Sheet Given: Post Cystoscopy documented [facility]06-21-2022 Miscellaneous Notes* Telephone Encounter - Amanda [...] UTI. Amanda Bassett Ma documented in [facility]12-01-2021 Nurse Note* Maggi Ellington RN - [...] mild discomfort is NA documented in [facility]12-01-2021 NoteHNO ID: [id number] Author: Tejal Rivera MD Service: ? Author [...] Plan Instruction Sheet Given[facility]-2021 Procedure note* Tejal Rivera MD - [...] Sheet Given: Post Cystoscopy documented in [facility]Mart[facility]11-17-2021 Miscellaneous Notes* Telephone Encounter - Maggi Vega RN - 08/19/2021 3:46 PM EST Patient has an upcoming appointment and wondered if she needed to stop her coumadin- she doesn't, patient informed. Maggi Vega RN documented in this encounterMart[facility]09-15-2021 NoteHNO ID: [id number] Author: Tejal Rivera MD Service: ? Author [...] HISTORY Diagnosis Date - Benzodiazepine dependence, continuous ([facility]) - Depression - Diverticulitis - DM type 2 (diabetes mellitus, type 2) ([facility]) - Enuresis - RADHA (generalized anxiety disorder) - GERD (gastroesophageal reflux disease) - HTN (hypertension) - (more content not included)...[facility] History of Present illness Narrative* Tejal [...] DAYS A WEEK - SUN, , TUE, & SAT zolpidem (AMBIEN) 10 mg tab [...] type 2 (diabetes mellitus, type 2) (HCC) Enuresis RADHA (generalized anxiety disorder) GERD (gastroesophageal reflux disease) HTN (hypertension) Hyperlipidemia IBS (irritable bowel syndrome) Insomnia Known medical problems c diff LBP (low back pain) OAB (overactive bladder) Obesity Opioid dependence, continuous (HCC) MARIVEL (obstructive sleep apnea) Psoriasis RLS (restless legs syndrome) Stroke ([facility] [place]) R frontal supraventricular FAUSTINO (stress urinary incontinence, [...] encounter diagnosis) (R35.1) [facility] Author Dany Hairston [facility] August 15, 2023 1:26pm Note Date/Time August 15, 2023 1:26pm [facility] Medical Records Department [address] [place] [address] Counseling Note - Pharmacy 08/15/23 1325 MR#: [id number] Acct: [id number] Name: LUIZA GALO Rep #:[id number] : 1940 83 From: Dany Hairston PCP: Dr. Rosalind Rubalcava MD Status:ADM BJ Y Location: [facility] [place], [place] [id number] Pharmacy [facility] Pharmacy Service has performed discharge medication [...] was counselled on new medication ondansetron by clinical pharmacy coordinator Dean. Medications at Discharge Home Medications atorvastatin [...] Q4H PRN pain 05/19/22 hydrocodone-acetaminophen 5-325mg 5mg-325mg ([place]) 1 tab PO Q12H PRN Pain 1-10 [...] signed by Dany rushing> Date _ Dany Tabares Signature (if applicable): Date CC: ~ Signed [facility] Work Phone: Discharge summary Author Cirilo Fine [facility] August 15, 2023 12:17pm Note Date/Time August 15, 2023 12:14pm [facility] Medical Records Department [address] [place] [address] Discharge Summary 08/15/23 1213 MR#: [id number] Acct: [id number] Name: LUIZA GALO Rep #:[id number] : 1940 83 From: Cirilo Fine DO PCP: Dr. Rosalind Rubalcava MD Status:ADM BJ Location: [place] [address] Providers Date of Admission: 08/14/23 Primary Care [...] Q4H PRN pain 05/19/22 hydrocodone-acetaminophen 5-325mg 5mg-325mg ([place]) 1 tab PO Q12H PRN Pain 1-10 [...] 88.1 H, Lymph % (Auto) 7.1 L, [place] % (Auto) 3.7, Eos % (Auto) 0.2, [...] Clarity Clear, Urine pH 6.0, Ur Specific [place] 1.020, Urine Protein 30 H, Urine Glucose [...] % (Auto) 69.3, Lymph % (Auto) 24.2, [place] % (Auto) 4.8, Eos % (Auto) 1.2, [...] 15:59 EST Reading Location ID and State: [facility] / [place] , Service support , D/C Instructions Discharge [...] You may also benefit from seeing a field service tech as outpatient as well. Discharge Orders/Prescriptions Prescriptions: New ondansetron 8 mg tablet,disintegrating 8 mg PO Q8H PRN (Reason: nausea and vomiting) Qty: 20 0RF Continued alprazolam 0.5 mg tablet 0.5 mg PO 4X/DAY montelukast 10 mg tablet 10 mg PO DAILY hydrocodone-acetaminophen [[place]] 5-325 mg tablet 1 tab PO Q12H [...] NH/Intermed Care Charges/Coding Visit Charges Inpatient E&M: 92557 Disch Hosp >30min 08/15/23 1217 <Electronically signed by Cirilo Fine DO> Cosigner Signature (if applicable): CC: Dr. Cirilo Fine DO; Dr. Rosalind Rubalcava MD~ Signed [facility] Work Phone: Evaluation + Plan note Future Appointments Appointment Date:09/24/2021 11:15:00 AM Scheduled Provider:ROSALIND RUBALCAVA MD Location:[facility] Appointment Type: OV Future Scheduled Tests Laboratory* [...] Panel 08/07/21 * Complete Metabolic Panel 11/08/21 [facility] Evaluation + Plan note Future Appointments Appointment Date:11/20/2021 10:45:00 AM Scheduled Provider:ROSALIND RUBALCAVA MD Location:[facility] Appointment Type:PC OV Future Scheduled Tests Laboratory* COVID-19 Only (AO) 03/17/21 * Calcium Level Ionized 08/07/21 * Magnesium Level 08/07/21 * Thyroid Stimulating Hormone 08/07/21 * Free T4 08/07/21 * Urine Culture 09/24/21 * A1C Hemoglobin 08/07/21 * Complete Blood Count 08/07/21 * Free T3 08/07/21 * Complete Metabolic Panel 08/07/21 [facility] Evaluation + Plan note Future Appointments Appointment Date:03/05/2022 02:30:00 PM Scheduled Provider:ROSALIND RUBALCAVA MD Location:[facility] Appointment Type:PC Wellness Primetime Enhanced Appointment Date:04/07/2022 11:00:00 AM Scheduled Provider:ROSALIND RUBALCAVA MD Location:[facility] Appointment Type:PC OV Controlled Medication Future Scheduled Tests Laboratory* Calcium Level Ionized 08/07/21 * Magnesium Level 08/07/21 * Thyroid Stimulating Hormone 08/07/21 * Free T4 08/07/21 * Urine Culture 09/24/21 * A1C Hemoglobin 08/07/21 * Complete Blood Count 08/07/21 * Free T3 08/07/21 * Complete Metabolic Panel 08/07/21 * COVID-19 Only (AO) 03/17/21 [facility] Evaluation + Plan note Future Appointments Appointment Date:04/07/2022 11:00:00 AM Scheduled Provider:ROSALIND RUBALCAVA MD Location:[facility] Appointment Type:PC OV Controlled Medication Diagnostic Tests Pending * Urine Culture 03/24/22 Future Scheduled Tests Laboratory* Calcium Level Ionized 08/07/21 * Magnesium Level 08/07/21 * Thyroid Stimulating Hormone 08/07/21 * Free T4 08/07/21 * Urine Culture 09/24/21 * A1C Hemoglobin 08/07/21 * Complete Blood Count 08/07/21 * Free T3 08/07/21 * Complete Metabolic Panel 08/07/21 [facility] Evaluation + Plan note Future Appointments Appointment Date:05/21/2022 11:00:00 AM Scheduled Provider:ROSALIND RUBALCAVA MD [facility] Appointment Type:PC OV Appointment Date:07/06/2022 11:00:00 AM Scheduled Provider:ROSALIND RUBALCAVA MD Location:[facility] Appointment Type:PC OV Controlled Medication Diagnostic Tests Pending * Vitamin D Level 05/11/22 Future Scheduled Tests Laboratory* Calcium Level Ionized 08/07/21 * Magnesium Level 08/07/21 * Thyroid Stimulating Hormone 08/07/21 * Free T4 08/07/21 * Urine Culture 09/24/21 * A1C Hemoglobin 08/07/21 * Complete Blood Count 08/07/21 * Free T3 08/07/21 * Complete Metabolic Panel 08/07/21 [facility] Evaluation + Plan note Future Appointments Appointment Date:01/07/2023 11:30:00 AM Scheduled Provider:ROSALIND RUBALCAVA MD Location:[facility] Appointment Type:PC OV Future Scheduled Tests Laboratory* Thyroid Stimulating Hormone 11/10/22 * Free T4 11/10/22 * A1C Hemoglobin 05/10/23 * Lipid Profile 05/10/23 * Complete Metabolic Panel 05/10/23 [facility] Evaluation + Plan note Future Appointments Appointment Date:03/11/2023 11:00:00 AM Scheduled Provider:ROSALIND RUBALCAVA MD Location:[facility] Appointment Type:PC OV Controlled Medication Appointment Date:05/13/2023 11:00:00 AM Scheduled Provider:ROSALIND RUBALCAVA MD Location:[facility] Appointment Type:PC OV Future Scheduled Tests Laboratory* Thyroid Stimulating Hormone 11/10/22 * Free T4 11/10/22 * A1C Hemoglobin 05/10/23 * Lipid Profile 05/10/23 * Complete Metabolic Panel 05/10/23 [facility] Evaluation + Plan note Future Appointments Appointment Date:11/15/2023 11:00:00 AM Scheduled Provider:ROSALIND RUBALCAVA MD Location:[facility] Appointment Type:PC OV Follow Up Future Scheduled Tests Laboratory* A1C Hemoglobin 11/09/23 * Complete Blood Count 08/09/23 * Lipid Profile 11/09/23 * Complete Metabolic Panel 11/09/23 Radiology* XR Spine Lumbosacral 2 or 3 Views 08/09/23 * XR Hip 3-4 Views Bilateral 08/09/23 [facility] Evaluation + Plan note Future Appointments Appointment Date:06/06/2024 01:30:00 PM Scheduled Provider:ROSALIND RUBALCAVA MD Location:[facility] Appointment Type:[facility] Primetime Enhanced Future Scheduled Tests Laboratory* B-Type Natriuretic Peptide 05/23/24 * Thyroid Stimulating Hormone 06/30/24 * Free T4 03/30/24 * A1C Hemoglobin 06/30/24 * Complete Blood Count 03/30/24 * Complete Blood Count 11/15/23 * Complete Metabolic Panel 06/30/24 Radiology* XR Spine Lumbosacral 2 or 3 Views 08/09/23 * XR Hip 3-4 Views Bilateral 08/09/23 [facility] Evaluation note* Diagnosis Urge incontinence- [facility] Diagnosis Urge incontinence- Primary documented in this encounter [facility] note* Diagnosis Urinary tract infection without hematuria, site unspecified- Primary documented in this encounter [facility] note* Diagnosis Urge incontinence- Primary documented in this encounter [facility] note* Diagnosis Onset Date Resolution Status 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 Essential hypertension chron ic Hyperlipidemia chronic Paroxysmal atrial fibrillation chronic Acute encephalopathy acute Elevated serum creatinine ac [place] Fever acute Hypotension acute 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 Jaundice acute Transaminitis acute Diabetes mellitus chronic Essential hypertension chron ic 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, chronic 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 [facility] Work Phone: Evaluation note* Diagnosis Onset Date Resolution Status 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 Paroxysmal atrial [...] chronic Fever resolved Jaundice resolved Transaminitis resolved [facility] Work Phone: Evaluation note* Diagnosis Onset Date Resolution Status 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 Paroxysmal atrial [...] resolved Acute febrile illness acute Gastroenteritis acute [facility] Work Phone: Evaluation note* Diagnosis Onset Date Resolution Status Acute febrile illness resolv ed Gastroenteritis resolved SOB (shortness of breath) ac [place] 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 Paroxysmal atrial fibrillation chronic [facility] Work Phone: Evaluation note* Diagnosis Onset Date Resolution Status Acute febrile illness resolv ed Gastroenteritis resolved SOB (shortness of breath) ac [place] 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 Paroxysmal atrial fibrillation chronic Ascending cholangitis acute [facility] Work Phone: Evaluation note* Diagnosis Onset Date Resolution Status SOB (shortness of breath) ac [place] 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 Paroxysmal atrial fibrillation chronic Ascending cholangitis acute [facility] Work Phone: Evaluation noteNo assessment information available [facility] Work Phone: Hospital course Narrative No data available for this section [facility] Hospital Discharge instructions No data available for this section [facility] Progress note No data available for this section [facility] Reason for referral (narrative)No reason for referral information availableWSelect [facility] Work Phone: Summary Purpose Family History No Family History Records Found Relationship Condition Age at Onset Recorded Date/T alison father Coronary artery disease Unknown mother Coronary artery disease Unknown brother Coronary artery disease Unknown Advance Directives No Advanced Directives Records Found Advance Directive Response Recorded Date/ Time Name of Medical Power of Iron Miner [employer]asting eugene kitchen May 13, 2023 1:54am Advance Directives No January 19 7:12am Living Will Yes May 13 1:54am Power of Iron Miner Blasting Yes May 13 2 023 1:54am Advance Directive Response Recorded Date/ Time Name of Medical Power of Iron Miner Blasting eugene kitchen May 13, 2023 1:54am Name of Medical Power of Iron Miner [employer]asting [place] [employer] May 19, 2023 11:23am Advance Directives No January 19, 2 021 7:12am Living Will Yes May 19 11:23am Power of Iron Miner Blasting Yes May 19 023 11:23am Advance Directive Response Recorded Date/ Time Name of Medical Power of Iron Miner Blasting eugene kitchen May 13, 2023 12:54am Name of Medical Power of Iron Miner Blasting [employer] May 19, 2023 10:23am Name of Medical Power of Iron Miner Blasting mona (son) August 14, 2023 12:14pm Advance Directives No January 19, 2 021 6:12am Living Will Yes August 14 023 12:14pm Power of Iron Miner Blasting Yes August 14, 2023 12:14pm Advance Directive Response Recorded Date/ Time Name of Medical Power of Iron Miner Blasting eugene kitchen May 13, 2023 12:54am Name of Medical Power of Iron Min[employer] May 19, 2023 10:23am Name of Medical Power of Iron Miner Blasting mona (son) August 14, 2023 4:11pm Advance Directives No January 19, 2 021 6:12am Living Will Yes August 14, 023 4:11pm Power of Iron Miner Blasting Yes August 14, 2023 4:11pm Advance Directive Response Recorded Date/ Time Name of Medical Power of Iron Miner Blasting mona (son) August 14, 2023 4:11pm Advance Directives No January 19, 2 021 6:12am Living Will Yes August 14, 2 023 4:11pm Power of Iron Miner Blasting Yes August 14, 2023 4:11pm Advance Directive Response Recorded Date/ Time Name of Medical Power of Iron Miner Blasting mona (son) August 14, 2023 4:11pm Name of Medical Power of Iron Miner Blasting daughter November 20, 2023 8:28pm Advance Directives No January 19, 2 021 6:12am Living Will Yes November 20, 024 8:28pm Power of Iron Miner Blasting Yes February 18th, 2024 8:28pm Advance Directive Response Recorded Date/ Time Name of Medical Power of Iron Miner Blasting daughter November 20, 2023 9:28pm Advance Directives No January 19, 021 7:12am Living Will Yes November 20 9:28pm Power of Iron Miner Blasting Yes November 20, 2023 9:28pm Advance Directive Response Recorded Date/ Time Advance Directives No January 19, 021 7:12am Medications Administered Section Inactive Administered Medications [...] Visit Atherosclerosis of c oronary artery of [place] heart without angina pectoris Essential hypertension Hyperlipidemia [...] Visit Atherosclerosis of c oronary artery of [place] heart without angina pectoris Paroxysmal atrial fibrillation [...] Visit Atherosclerosis of c oronary artery of [place] heart without angina pectoris Paroxysmal atrial fibrillation [...] Visit Atherosclerosis of c oronary artery of [place] heart without angina pectoris Paroxysmal atrial fibrillation [...] of breath) Atherosclerosis of coronary artery of [place] heart without angina pectoris Paroxysmal atrial fibrillation Chief Complaint GASTROENTERITIS, ACU TE FEBRILE ILLNESS GASTROENTERITIS, ACUTE FEBRILE ILLNESS 6 M FU INT LABS E ORDERS TCU FU LOWER Reason for Visit Acute febrile illnes s Gastroenteritis SOB (shortness of breath) Atherosclerosis of coronary artery of [place] heart without angina pectoris Paroxysmal atrial fibrillation Ascending cholangitis Chief Complaint 6 M FU INT LABS E ORDERS TCU FU LOWER INT LABS Reason for Visit SOB (shortness of br eath) Atherosclerosis of coronary artery of [place] heart without angina pectoris Paroxysmal atrial fibrillation Ascending cholangitis Chief Complaint 6 M FU INT LABS E ORDERS TCU FU LOWER INT LABS 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, 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, 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 Amb Documentation Reason for Visit SOB (shortness of br eath) Atherosclerosis of coronary artery of [place] heart without angina pectoris Paroxysmal atrial fibrillation Ascending cholangitis Chief Complaint Admit Date LABWORK September 10, 2024 5 :00am SENIOR CARE LAB WORK September 13 5:00am NEW CONCERN September 21, 2024 4:22pm LABWORK October 01, 2024 5:00am LABWORK October 15, 2024 6 :54am LABWORK November 12, 2024 5:00am LABWORK December 10, 2024 5:0 0am Chief Complaint Admit Date SENIOR CARE LAB WORK September 13 5:00am NEW CONCERN [...] 3:1 6pm LABWORK February 04, 2025 5:00am SENIOR CARE LAB WORK February 11, 2025 5:0 0am SENIOR CARE LAB WORK March 11, 2025 4:0 0am [...] 3:1 6pm LABWORK February 04, 2025 5:00am SENIOR CARE LAB WORK February 11, 2025 5:0 0am NEW CONCERN February 26, 2025 12:12 pm SENIOR CARE LAB WORK March 04, 2025 1:1 7pm LABWORK March 06, 2025 5:00a m SENIOR CARE LAB WORK March 11, 2025 4:0 0am LABWORK March 18, 2025 5:00 am Chief Complaint Admit Date LABWORK December 24, 2024 5:0 0am NEW CONCERN January 08, 2025 5:15 pm NEW CONCERN January 09, 2025 5:25 pm LABWORK January 10, 2025 5:0 0am FOLLOW UP EXAM January 10, 2025 3:0 1pm LABWORK January 14, 2025 5:0 0am NEW CONCERN January 28, 2025 3:1 6pm LABWORK February 04, 2025 5:00am SENIOR CARE LAB WORK February 11, 2025 5:0 0am NEW CONCERN February 26, 2025 12:12 pm SENIOR CARE LAB WORK March 04, 2025 1:1 7pm New Concern March 04, 2025 4:26p m New Problem March 05, 2025 3:18p m LABWORK March 06, 2025 5:00a m SENIOR CARE LAB WORK March 11, 2025 4:0 0am LABWORK March 18, 2025 5:00 am Chief Complaint Admit Date LABWORK December 24, 2024 5:0 0am NEW CONCERN January 08, 2025 5:15 pm NEW CONCERN January 09, 2025 5:25 pm LABWORK January 10, 2025 5:0 0am FOLLOW UP EXAM January 10, 2025 3:0 1pm LABWORK January 14, 2025 5:0 0am NEW CONCERN January 28, 2025 3:1 6pm LABWORK February 04, 2025 5:00am SENIOR CARE LAB WORK February 11, 2025 5:0 0am NEW CONCERN February 26, 2025 12:12 pm SENIOR CARE LAB WORK March 04, 2025 1:1 7pm New Concern March 04, 2025 4:26p m LABWORK March 06, 2025 5:00a m SENIOR CARE LAB WORK March 11, 2025 4:0 0am LABWORK March 18, 2025 5:00 am Additional Source Comments INFORMATION SOURCE (unrecogn ized section and content) DATE CREATED AUTHOR 08/15/2018 [facility] DATE CREATED AUTHOR AUTHOR'S ORGANIZ ATION 04/07/2022 [facility] DATE CREATED AUTHOR AUTHOR'S ORGANIZ ATION 06/02/2024 [facility] ([place]) DATE CREATED AUTHOR AUTHOR'S ORGANIZ ATION 04/25/2025 [facility] Source Comments (unrecognize d section and content) In the event this informatio n is protected by the Federal Confidentiality of Alcohol and Drug Abuse Patient Records regulations: The Federal rules restrict any use of the information to criminally investigate or prosecute any alcohol or drug abuse patient.[facility] the event this information is protected by the Federal Confidentiality of Alcohol and Drug Abuse Patient Records regulations: The Federal rules restrict any use of the information to criminally investigate or prosecute any alcohol or drug abuse patient.[facility] the event this information is protected by the Federal Confidentiality of Alcohol and Drug Abuse Patient Records regulations: The Federal rules restrict any use of the information to criminally investigate or prosecute any alcohol or drug abuse patient.[facility] the event this information is protected by the Federal Confidentiality of Alcohol and Drug Abuse Patient Records regulations: The Federal rules restrict any use of the information to criminally investigate or prosecute any alcohol or drug abuse patient.[facility] the event this information is protected by the Federal Confidentiality of Alcohol and Drug Abuse Patient Records regulations: The Federal rules restrict any use of the information to criminally investigate or prosecute any alcohol or drug abuse patient.[facility] Reason for Visit (unrecogniz ed section and content) Reason Comments New Patient Reason Comments Appointment Patient Question Reason Comments Cystoscopy-1 Urge Urinary Incontinence Specialty Diagnoses / Procedures Referred By Contac t Referred To Contact Urology / UROLOGY Diagnoses botox, 200 units Procedures CYSTOSCOPY BOTOX Tejal Rivera MD [address] [place] [address] Tejal Rivera MD [address] [place] [address] Referral ID Status Reason Start Date Expiration Date Visits Re quested Visits Authorized [id number] Closed 09/02/2021 12/01/2021 1 1 Reason Comments Orders Reason Comments Urge Urinary Incontinence Cystoscopy-1 Specialty Diagnoses / Procedures Referred By Contac t Referred To Contact Urology / UROLOGY Diagnoses Urge incontinence cysto botox Procedures BOTULINUM TOXIN A PER 1 UNIT CYSTOSCOPY [id number] units Tejal Rivera MD [address] [place] [address] Tejal Rivera MD [address] [place] [address] Referral ID Status Reason Start Date Expiration Date V isits Requested Visits Authorized [id number] Authorized 04/01/2022 10/02/2022 99 99 Care Teams (unrecognized sec tion and content) Services Manager Relationship Specialty Start Date End Date Rosalind Rubalcava MD [address] [place] [address] PCP - [facility] 07/14/12 Services Manager Relationship Specialty Start Date End Date Rosalind Rubalcava MD [address] [place] [address] PCP - [facility] 07/14/12 Team Status: Active Member Role Status Dates Dr. Rosalind Rubalcava MD Family Provider Active Dr. Rosalind Rubalcava MD Primary Care Provider Active Team Status: Inactive Member Role Status Dates Dr. Rosalind Rubalcava MD Primary Care Provider, [facility] Provider Active Katalina Torres CHUTE BOSS, CHUTE BOSS-C Attending Provider Active Team Status: Active Member [...] MD Primary Care Provider Active Katalina Torres NP, CHUTE BOSS-C Attending Provider, Referring P samy Active Team [...] MD Primary Care Provider Active Katalina Torres CHUTE BOSS, CHUTE BOSS-C Attending Provider Active Team Status: Active Member [...] 2024 End: September 21, 2024 Jing Jones CHUTE BOSS, CHUTE BOSS-C Attending Provider Active Start: September 21, 2024 [...] 2025 End: January 28, 2025 Jing Jones CHUTE BOSS, CHUTE BOSS-C Attending Provider Active Start: January 28, 2025 [...] 2025 End: January 10, 2025 Jing Jones CHUTE BOSS, CHUTE BOSS-C Attending Provider Active Start: January 10, 2025 End: January 10, 2025 Team Status: Inactive Member Role Status Dates Dr. Rosalind Rubalcava MD Primary Care Provider Active Start: January 09, 2025 End: January 09, 2025 Jing Jones CHUTE BOSS, CHUTE BOSS-C Attending Provider Active Start: January 09, 2025 End: January 09, 2025 Team Status: Inactive Member Role Status Dates Dr. Rosalind Rubalcava MD Primary Care Provider Active Start: January 08, 2025 End: January 08, 2025 Jing Jones CHUTE BOSS, CHUTE BOSS-C Attending Provider Active Start: January 08, 2025 [...] Attending Provider Active Start: March 18, 2025 Team Status: Active Member Role/Relationship Status Dates Dr. Rosalind Rubalcava MD Family Provider Active Dr. Rosalind Rubalcava MD Primary Care Provider Active Team Status: Inactive Member Role/Relationship Status Dates Dr. Rosalind Rubalcava MD Primary Care Provider Active Start: December 24, 2024 End: December 24, 2024 Laverne VICTORIA MD Attending Provider Active Start: December 24, 2024 End: December 24, 2024 Team Status: Inactive Member Role/Relationship Status Dates Dr. Rosalind Rubalcava MD Primary Care Provider Active Start: January 08, 2025 End: January 08, 2025 Jing Jones NP, NP-C Attending Provider Active Start: January 08, 2025 End: January 08, 2025 Team Status: Inactive Member Role/Relationship Status Dates Dr. Rosalind Rubalcava MD Primary Care Provider Active Start: January 09, 2025 End: January 09, 2025 Jing Jones CHUTE BOSS, CHUTE BOSS-C Attending Provider Active Start: January 09, 2025 End: January 09, 2025 Team Status: Inactive Member Role/Relationship Status Dates Dr. Rosalind Rubalcava MD Primary Care Provider Active Start: January 10, 2025 End: January 10, 2025 Laverne VICTORIA MD Attending Provider Active Start: January 10, 2025 End: January 10, 2025 Team Status: Inactive Member Role/Relationship Status Dates Dr. Rosalind Rubalcava MD Primary Care Provider Active Start: January 10, 2025 End: January 10, 2025 Jing Jones CHUTE BOSS, CHUTE BOSS-C Attending Provider Active Start: January 10, 2025 End: January 10, 2025 Team Status: Inactive Member Role/Relationship Status Dates Dr. Rosalind Rubalcava MD Primary Care Provider Active Start: January 14, 2025 End: January 14, 2025 Laverne VICTORIA MD Attending Provider Active Start: January 14, 2025 End: January 14, 2025 Team Status: Inactive Member Role/Relationship Status Dates Dr. Rosalind Rubalcava MD Primary Care Provider Active Start: January 28, 2025 End: January 28, 2025 Jing Jones CHUTE BOSS, CHUTE BOSS-C Attending Provider Active Start: January 28, 2025 End: January 28, 2025 Team Status: Inactive Member Role/Relationship Status Dates Dr. Rosalind Rubalcava MD Primary Care Provider Active Start: February 04, 2025 End: February 04, 2025 Laverne VICTORIA MD Attending Provider Active Start: February 04, 2025 End: February 04, 2025 Team Status: Inactive Member Role/Relationship Status Dates Dr. Rosalind Rubalcava MD Primary Care Provider Active Start: February 11, 2025 End: February 11, 2025 Laverne VICTORIA MD Attending Provider Active Start: February 11, 2025 End: February 11, 2025 Team Status: Inactive Member Role/Relationship Status Dates Dr. Rosalind Rubalcava MD Primary Care Provider Active Start: February 26, 2025 End: February 26, 2025 Dr. Laverne Lea MD Attending Provider Active Start: February 26, 2025 End: February 26, 2025 Team Status: Active Member Role/Relationship Status Dates Dr. Rosalind Rubalcava MD Primary Care Provider Active Start: March 04, 2025 Jing VICTORIA NP-C Attending Provider Active Start: March 04, 2025 Team Status: Inactive Member Role/Relationship Status Dates Dr. Rosalind Rubalcava MD Primary Care Provider Active Start: March 04, 2025 End: March 04, 2025 Jing Jones NP [employer]-C Attending Provider Active Start: March 04, 2025 End: March 04, 2025 Team Status: Inactive Member Role/Relationship Status Dates Dr. Rosalind Rubalcava MD Primary Care Provider Active Start: March 05, 2025 End: March 05, 2025 Jing Jones NP [employer]-C Attending Provider Active Start: March 05, 2025 End: March 05, 2025 Team Status: Active Member Role/Relationship Status Dates Dr. Rosalind Rubalcava MD Primary Care Provider Active Start: March 06, 2025 Laverne VICTORIA MD Attending Provider Active Start: March 06, 2025 Team Status: Active Member Role/Relationship Status Dates Dr. Rosalind Rubalcava MD Primary Care Provider Active Start: March 11, 2025 Laverne VICTORIA MD Attending Provider Active Start: March 11, 2025 Laverne VICTORIA MD Referring Provider Active Start: March 11, 2025 Team Status: Active Member Role/Relationship Status Dates Dr. Rosalind Rubalcava MD Primary Care Provider Active Start: March 18, 2025 Laverne VICTORIA MD Attending Provider Active Start: March 18, 2025 Team Status: Inactive Member Role/Relationship Status Dates Dr. Rosalind Rubalcava MD Primary Care Provider Active Start: April 02, 2025 Dr. Mamta Miranda MD Attending Provider Active Start: April 02, 2025 Team Status: Active Member Role/Relationship Status Dates Dr. Rosalind Rubalcava MD Primary Care Provider Active Start: April 15, 2025 Laverne VICTORIA MD Attending Provider Active Start: April 15, 2025 Team Status: Active Member Role/Relationship Status Dates Dr. Rosalind Rubalcava MD Primary Care Provider Active Start: March 06, 2025 Laverne VICTORIA MD Attending Provider Active Start: March 06, 2025 Team Status: Active Member Role/Relationship Status Dates Dr. Rosalind Rubalcava MD Primary Care Provider Active Start: March 11, 2025 Laverne VICTORIA MD Attending Provider Active Start: March 11, 2025 Laverne VICTORIA MD Referring Provider Active Start: March 11, 2025 Team Status: Active Member Role/Relationship Status Dates Dr. Rosalind Rubalcava MD Primary Care Provider Active Start: March 18, 2025 Laverne VICTORIA MD Attending Provider Active Start: March 18, 2025 Team Status: Inactive Member Role/Relationship Status Dates Dr. Rosalind Rubalcava MD Primary Care Provider Active Start: April 02, 2025 Dr. Mamta Miranda MD Attending Provider Active Start: April 02, 2025 Team Status: Active Member Role/Relationship Status Dates Dr. Rosalind Rubalcava MD Primary Care Provider Active Start: April 15, 2025 Laverne VICTORIA MD Attending Provider Active Start: April 15, 2025 Care Team (unrecognized sect ion and content) Personnel Name: ROSALIND RUBALCAVA MD Address: Address: [address] [place] [address] Name: Keiry Gutierrez Clercarl Ray PT Care Team Personnel Name: Keiry Gutierrez PT Position: P3 Scheduling - Photographer Motion Picture Advanced Member Role: Other Name: ROSALIND RUBALCAVA MD Position: P4 Physician - Primary Care Med Service: Active Provider Member Role: Primary Care Physician Address: Address: [address] [place] [address] Care Team Related Persons Name: KONG KITCHEN [...] BE BASED ON THE PRIMARY CLINICAL RECORDS. [facility] [employer] [facility]. provides no warranty or guarantee of the accuracy or completeness of information in this document.
== END ==
LOC: OLS.WHLTSB 05:00
PROVIDERS: PCP Family Medicine; Visit Provider Internal Medicine
DX: E03.9 Hypothyroidism, unspecified (principal)
CPT/HCPCS: 36415; 84443

== ENCOUNTER → 2025-07-09 05:10 | Outpatient (REF) | payer MEDICARE, SELFPAY ==
[2025-07-09 10:38] LABS: AST(SGOT) 32 U/L (<=31); Alanine Aminotransfer ALT/SGPT 30 U/L (<=34); Albumin, Serum 3.6 g/dL (3.4-4.8); Alkaline Phosphatase 84 U/L (35-104); Anion Gap 11 (5-15); BUN 14 mg/dL (4-19); BUN/Creat Ratio 14.5 RATIO (10-20); Calcium,Total 9.3 mg/dL (7.6-11.0); Carbon Dioxide 23.8 mmol/L (21.0-32.0); Chloride 106 mmol/L (98-108); Cholesterol 128 mg/dL (<=200); Globulin 2.8 g/dL (2.2-4.2); Glucose 125 mg/dL (70-99); Low Density Lipoprotein Calc. 54 mg/dL; Potassium 4.0 mmol/L (3.3-5.1); Triglycerides 130 mg/dL; Very Low Density Lipoprotein 26 mg/dL (5-40); cholesterol:hdl ratio screen 2.66
== END ==
LOC: OLS.WHLTSB 05:10
PROVIDERS: PCP Family Medicine; Visit Provider Internal Medicine
DX: R05.9 Cough, unspecified (principal); L29.9 Pruritus, unspecified; D64.9 Anemia, unspecified; R07.9 Chest pain, unspecified; E87.6 Hypokalemia; R09.81 Nasal congestion; E16.4 Increased secretion of gastrin; H04.123 Dry eye syndrome of bilateral lacrimal glands; I50.9 Heart failure, unspecified
CPT/HCPCS: 36415; 80053; 80061; 84443

== ENCOUNTER → 2025-08-01 | Outpatient (CLI) | payer MEDICARE, SELFPAY ==
--- NOTE | 2025-08-01 06:54 | ECHOCS_ITS ---
Reason For Study ECHO/Echo Complete W/ Contrast
--- NOTE | 2025-08-01 09:53 | STRESSREP_ITS ---
Stress Test Report
--- NOTE | 2025-08-01 09:53 | STRESSREP ---
Stress Test Report Date: 08/01/2025 Procedure: Pharmacologic stress nuclear imaging study Indications: Paroxysmal atrial fibrillation Consent: Per the patient Procedure: The patient underwent pharmacologic (Regadenoson 0.4mg ) evaluation with a peak heart rate of 81 beats per minute (58%predicted maximal heart rate) and a peak blood pressure of 126/62 mmHg. The baseline ECG demonstrated sinus rhythm. The peak pharmacologic ECG did not show any ischemic changes. There were no cardiac dysrhythmias pretest, during pharmacologic infusion, or recovery. There was no complaint of chest discomfort during pharmacologic infusion or recovery. The patient was injected with 9.7 millicuries of technetium 99m Cardiolite and subsequently rest SPECT Cardiolite nuclear imaging was obtained in the horizontal long, vertical long, and short axis views. The patient underwent pharmacologic (Regadenoson) evaluation. The patient was injected with 31.7 millicuries of technetium 99m Cardiolite and subsequently stress SPECT Cardiolite nuclear imaging was obtained in the horizontal long, vertical long, and short axis views. A gated Cardiolite study at peak stress was obtained. The examination was stopped secondary to completion of protocol. Rest and stress SPECT Cardiolite nuclear imaging status post realignment, normalization, and attenuation correction demonstrate no fixed or reversible perfusion defects. There is end systolic thickening and brightening. The gated Cardiolite study demonstrates myocardial thickening and inward wall motion. The reported LVEF is 74%. Impression: 1. Pharmacologic (Regadenoson) evaluation 2. Peak pharmacologic ECG with no ischemic changes. 3. There were no cardiac dysrhythmias pretest, during pharmacologic infusion, or recovery. 5. Rest and stress SPECT Cardiolite nuclear imaging demonstrate relative uniform tracer uptake and myocardial perfusion appearing within normal limits. 6. The gated Cardiolite study reports an LVEF of 74%. This note was generated with [employer] software. It may contain incorrect words, spelling, and punctuation that were not noted in checking the note before signing.
== END | disposition home or self-care (01) ==
PROVIDERS: PCP Nurse Practitioner Adult Health; Referring Provider Internal Medicine Cardiovascular Disease; Visit Provider Internal Medicine Cardiovascular Disease
DX: I48.0 Paroxysmal atrial fibrillation (principal); I25.10 Atherosclerotic heart disease of native coronary artery without angina pectoris; I10 Essential (primary) hypertension; R00.1 Bradycardia, unspecified; R06.02 Shortness of breath; R94.39 Abnormal result of other cardiovascular function study
CPT/HCPCS: 78452; 93017; 93306; A9500; Q9957; A4216; C8929; J2785

== ENCOUNTER → 2025-08-30 05:00 | Outpatient (REF) | payer MEDICARE, SELFPAY ==
--- OUTSIDE RECORDS SUMMARY | 2025-08-30 03:48 | XMS RPT_ITS | CCD ---
Author Organization [facility] Care Team Providers Care Towerman Name Role Phone BOLOGNA, TEJAL A Unavailable [...] Unavailable Rosalind Rubalcava MD Primary Care Provider [phone] ROSALIND RUBALCAVA MD Primary Care Physician Elbert PT, Flor Unavailable Unavailable Dr. Rosalind Rubalcava Primary Care Provider Dr. Rosalind Rubalcava Referring Provider Brian HOLLEY, KISHAN-C Katalina Attending Provider Dr. Papo Morillo Emergency Provider Dr. Octavia Gruber Admit Provider Dr. Octavia Gruber Attending Provider Dr. Octavia Gruber Other Provider Dr. Alee Yao Other Provider Dr. Doe Orr Attending Provider Dr. Alee Yao Attending Provider 1([facility])[phone] Alee Yao Referring Provider Dr. Rosalind Rubalcava Primary Care Provider Dr. Rosalind Rubalcava Referring Provider Brian HOLLEY, KISHAN-David Real Attending Provider Dr. Papo Morillo Emergency [...] Dr. Rosalind Rubalcava Primary Care Provider Dr. Enrrique Eric Emergency Provider Dr. Judson Hernandez Admit Provider Dr. Judson Hernandez Other Provider Dr. Cirilo Fine Attending Provider Dr. Cirilo Fine Other Provider Dr. Rosalind Rubalcava Referring Provider Brian GOLD WHEEL BLOCKER AND POLISHER, GOLD WHEEL BLOCKER AND POLISHER-C Katalina Attending Provider Dr. Doe Orr Attending Provider 1([facility])[phone] Dr. Rosalind Rubalcava Primary Care Provider Dr. Rosalind Rubalcava Referring Provider [phone] Brian GOLD WHEEL [employer]ER [employer] POLISHER, GOLD WHEEL BLOCKER AND POLISHER-C Katalina Attending Provider Dr. Doe Orr Attending Provider 1([facility])[phone] Dr. Paawn Reed Attending Provider ROSALIND RUBALCAVA MD Attending [...] RUBALCAVA MD Primary Care Unavailable Dr. Rosalind Ruablcava MD Primary Care Provider Laverne Lea MD Attending Provider Unavailtyesha Jones NP-CJing Attending Provider Dr. Rosalind Rubalcava MD Primary Care Provider [phone] Laverne Lea MD Attending Provider UnavailDr. Rosalind Dias MD Primary Care Provider Leonora ALY, Laverne Attending Provider Unavaila ble [place]ickton GOLD WHEEL [employer]ER [employer] POLISHER-C, Jing Attending Provider [place] GOLD WHEEL [employer]ER AND POLISHER-C, Jing Attending Provider [place] GOLD WHEEL [employer]ER AND POLISHER-C, Jing Attending Provider [place] GOLD WHEEL [employer]ER AND POLISHER-C, Jing Attending Provider Dr. Rosalind Rubalcava MD Primary Care Provider Laverne Lea MD Attending Provider Unavailtyesha negrete [place] GOLD WHE[employer]ER [employer] POLISHER-C, Jing Attending Provider [place] GOLD WHE[employer]ER AND POLISHER-C, Jing Attending Provider Laverne Lea MD Referring Provider UnavailDr. Laverne Lee MD Attending Provider Khadar ALY, Dr. Dhaliwal Primary Care Provider Laverne Lea MD Attending Provider UnavailDr. Mamta Duron MD Attending Provider Khadar ALY, Dr. Dhaliwal Primary Care Provider Laverne Lea MD Attending Provider Unavailtyesha Lea MD, Dr. Galloway Attending Provider [place] GOLD WHE[employer]ER [employer] POLISHER-C, Jing Attending Provider [place] GOLD WHEEL [employer]ER AND POLISHER-C, Jing Attending Provider Laverne Lea MD Referring Provider Dr. Mamta Donovan MD Attending Provider Khadar ALY, Dr. Dhaliwal Primary Care Physician [place]ton GOLD WHE[employer] AND POLISHER-C, Jing Attending Physician Laverne Lea MD Attending Physician Unavail Dr. Mamta Miles MD Attending Physician Leonora ALY, Dr. Galloway Attending Physician Dr. Rosalind Rubalcava MD Referring Provider Titi ALY, Dr. Morrow Attending Physician [phone] Khadar ALY, Dr. Dhaliwal Primary Care Physician [phone] Leonora ALY, Laverne Attending Physician Unavail able Oleghe OLS, Efewongbe Attending Unavailabl e Rubalcava, [...] Unavailable Rubalcava, Rosalind Primary Care Unavailable [place]ton GOLD WHE[employer]ER [employer] POLISHER, Jing Attending Unavailable Rubalcava, Rosalind Primary Care Unavailable Oleghe OLS, Efewongbe Attending Unavailabl e Rubalcava, Rosalind Primary Care Unavailable Oleghe OLS, Efewongbe Attending Unavailabl e Odalys Walls Referring Unavailable Odalys Walls Attending Unavailable [place] G[employer] WHE[employer]ER AND POLISHER, Jing Primary Care Unavailable Rubalcava, Rosalind Primary Care Unavailable Oleghe OLS, Efewongbe Attending Unavailabl e Oleghe OLS, Efewongbe Attending Unavailabl e Rubalcava, Rosalind Primary Care Unavailable Oleghe OLS, Efewongbe Attending Unavailabl e Rubalcava, Rosalind Primary Care Unavailable Oleghe OLS, Efewongbe Attending Unavailabl e Rubalcava, Rosalind Primary Care Unavailable Rubalcava, Rosalind Primary Care Unavailable T[place]ton GOLD WHE[employer]ER AND POLISHER, Jing Attending Unavailable [place] GOLD WHEEL BLOCKER AND POLISHER, Jing Attending Unavailable Rubalcava, Rosalind Primary Care Unavailable [place] GOLD WHE[employer] BLOCKER AND POLISHER, Jing Attending Unavailable Rubalcava, Rosalind Primary Care Unavailable Oleghe OLS, Efewongbe Attending Unavailabl e Rubalcava, Rosalind Primary Care Unavailable Rubalcava, Rosalind Primary Care Unavailable Tickton OLS, Jing Attending Unavailable Oleghe OLS, Efewongbe Attending Unavailabl e Rosalind Rubalcava Primary Care Unavailable Rosalind Rubalcava Referring Unavailable Titi, Odalys Attending Unavailable Rosalind Rubalcava Primary Care Unavailable Laverne Springer Attending Unavailabl e Rosalind Rubalcava Primary Care Unavailable Rosalind Rubalcava Primary Care Unavailable Laverne Lea Attending Unavailable Tickreggie GOLD WHEEL BLOCKER AND POLISHER, Jing Attending Unavailable Rosalind Rubalcava Primary Care Unavailable [place]ton GOLD WHEEL BLOCKER AND POLISHER, Jing Attending Unavailable Rosalind Rubalcava Primary Care Unavailable Rosalind Rubalcava Primary Care Unavailable [place] GOLD WHEEL BLOCKER AND POLISHER, Jing Attending Unavailable Rosalind Rubalcava Primary Care Unavailable [place] GOLD WHEEL BLOCKER AND POLISHER, Jing Attending Unavailable Rosalind Rubalcava Primary Care Unavailable Laverne Lea Attending Unavailable Titi, Odalys Referring Unavailable Titi, Odalys Attending Unavailable Titi, Odalys Consulting Unavailable Robert GOLD WHEEL BLOCKER AND POLISHER, Jing Primary Care Unavailable Allergies Allergy Classification Reported Allergen(s) Allergy Type Date of Onset Reaction(s) Facility (20 sources) codeine; Translations: [CODEINE] Drug Allergy 2 Other: See Comments [facility] (20 sources) Latex; Translations: [LATEX] Propensity to adverse reactions (disorder) 8 Hives [facility] Comment on above: only allergic when a lready sick (6 sources) metFORMIN; Translations: [METFORMIN] Drug Allergy 7 Unknown [facility] (19 sources) SITagliptin; Translations: [SITAGLIPTIN] Drug Allergy 7 Unknown [facility] (20 sources) Promethazine; Translations: [promethazine] Drug Allergy 3 PT UNSURE OF REACTION [facility] (20 sources) tiZANidine; Translations: [tizanidine] Drug Allergy 3 SICK, DIZZINESS, Unknown [facility] (20 sources) atorvastatin Drug Allergy 3 Unknown [facility] (20 sources) insulin degludec Drug Allergy 3 Nausea [facility] (20 sources) insulin isophane Drug Allergy 3 heart burn [facility] (20 sources) liraglutide Drug Allergy 3 Nausea [facility] (20 sources) SITagliptin; Translations: [sitagliptin phosphate] Drug Allergy 3 Unknown [facility] (20 sources) Anesthetics - Amide Type - Select A Allergy to substance 3 NEEDS FOLLOW-UP [facility] (20 sources) Anesthetics - Tyra Type- Parabens Allergy to substance 3 NEEDS FOLLOW-UP [facility] (1 source) atorvastatin Drug Allergy 5 [facility] (1 source) insulin degludec Drug Allergy 5 [facility] (1 source) insulin isophane Drug Allergy 5 [facility] (1 source) liraglutide Drug Allergy 5 [facility] (1 source) Promethazine Drug Allergy 5 [facility] (1 source) tiZANidine Drug Allergy 5 [facility] Rep[facility] (1 source) Anesthetics - Amide Type - Select A Drug allergy (disorder) 5 [facility] (1 source) Anesthetics - Tyra Type- Parabens Drug allergy (disorder) 5 [facility] Rep[facility] Medications Current Medications Medication Drug Class(es) Dates Sig (Normalized) Sig (Original) acetaminophen 500 mg oral tablet (20 sources) Start: 02-18-2023 Tylenol Extra Strength 500 mg oral tablet Dose : 1,000 mg = 2 tab(s), Oral, q4h, PRN as needed for pain, # 120 tab(s), 1 Refill(s), Pharmacy: [facility] [id number], 155.5, cm, 02/11/23 10:54:00 EDT, Height, kg, 02/11/23 10:54:00 EDT, Dosing Weight Start Date: 02/18/23 Status: Ordered Start: 10-29-2022 Tylenol Extra Strength 500 mg oral tablet Dose : 1,000 mg = 2 tab(s), Oral, q4h, PRN as needed for pain, # 120 tab(s), 1 Refill(s), Pharmacy: [facility] [id number], 157, cm, 10/13/22 15:01:00 EST, Height, kg, 10/13/22 15:01:00 EST, Dosing Weight Start Date: 10/29/22 Status: Ordered Start: 05-19-2022 take 2 tablets by mo uth every four hours as needed for pain Acetaminophen (Tylenol Extra Strength) 500 mg tablet Active 1000 mg PO Q4H as needed for pain May 19, 2022 12:00am Complies with drug therapy Start: 05-08-2021 Tylenol Extra Strength 500 mg [...] 03, 2017 5:06pm Start: 09-05-2017 End: 11-03-2017 Start: 09-05-2017 End: 11-03-2017 take 1000 mg by mouth every eight hours Acetaminophen Discontinued 1000 MG PO Q8H September 05, 2017 1:00am November 03, 2017 5:06pm Comment on above: Take 500 mg by mouth . amLODIPine 5 mg oral tablet (20 sources) Dihydropyridine Calcium Channel Tawana Start: take 1 tablet by mouth once daily Amlodipine 5 mg tablet Active 5 mg PO daily July 02, 2025 12:00am Complies with drug therapy Start: 05-17-2023 End: 08-14-2023 take 1 tablet by mouth once daily Amlodipine 5 mg Tablet Discontinued 5 mg PO DAILY 0 0 May 17, 2023 12:00am August 14, 2023 3:53pm BP Start: 09-06-2017 End: 11-03-2017 take 1 tablet by mouth once daily Amlodipine 10 MG tablet Discontinued 10 mg PO DAILY September 06, 2017 7:53pm November 03, 2017 5:06pm blood pressure aspirin 81 mg delayed release oral tablet (20 sources) Platelet Aggregation Inhibitor, Nonsteroidal Anti-inflammatory Drug Start: 04-01-2024 End: 04-01-2024 take 1 tablet by mouth at breakfast Aspirin 81 mg Tablet,Delayed Release (Dr/Ec) Active 81 mg PO WITH BREAKFAST 0 0 April 02, 2024 12:00am On Hold: None Complies with drug therapy Start: 08-14-2023 End: 10-24-2023 take 1 tablet by mouth once daily Aspirin (Enteric Coated Aspirin) 81 mg tablet,delayed release (DR/EC) Discontinued 81 mg PO DAILY August 14, 2023 1:00am October 24, 2023 12:06pm Start: 02-05-2013 End: 06-07-2023 take 1 tablet by mouth once daily Aspirin 81 mg tablet,delayed release (DR/EC) Discontinued 81 mg PO daily November 03, 2017 1:00am June 07, 2023 8:56pm blood thinner Start: 02-05-2013 aspirin 81 mg oral delayed release tablet Dose : 81 mg = 1 tab(s), Oral, qDay, 0 Refill(s) Start Date: 02/05/13 Status: Ordered atorvastatin 40 mg oral tablet (20 sources) HMG-CoA Reductase Inhibitor Start: 11-03-2017 End: 03-02-2018 take 1 tablet by mouth once daily Atorvastatin 40 mg tablet Active 40 mg PO daily 01 04March 02, 2018 10:53am cholesterol Complies with drug therapy Start: 07-27-2017 End: 09-03-2017 take 1 tablet by mouth at bedtime Atorvastatin 40 MG tablet Discontinued 40 mg PO AT BEDTIME 0 July 27, 2017 12:00am September 03, 2017 3:13pm BP cuff (16 sources) Start: 01-20-2022 BP cuff Active 0 .Route .MEDSUPPLY 1 January 20, 2022 12:00am BP As directed Start: 01-20-2022 BP cuff Active [...] cap(s), 0 Refill(s), 03/11/23 14:45:00 EDT, Pharmacy: [facility] [id number], UTI (urinary tract infection), 155, cm, 03/04/23 13:08:00 EDT, Height, 90.9 Start Date: 03/04/23 Stop Date: 03/11/23 Status: Ordered Start: 12-17-2022 End: 12-24-2022 cephalexin 500 mg oral capsu le Dose : 500 mg = 1 cap(s), Oral, TID, X 7 day(s), # 21 cap(s), 0 Refill(s), 12/24/22 9:33:00 EDT, Pharmacy: [facility] [id number], Atrial fibrillation Anticoagulant long-term use, 157, cm, 12/17/22 8:53:00 EDT, Height, 89.1 Start Date: 12/17/22 Stop Date: 12/24/22 Status: Ordered Start: 04-06-2022 End: 04-06-2022 cephALEXin 500 mg cap(s) (KE FLEX) Start: 02-19-2022 End: 02-26-2022 cephalexin 500 mg oral capsu le Dose : 500 mg = 1 cap(s), Oral, q8h, X 7 day(s), # 21 cap(s), 0 Refill(s), 02/26/22 13:18:00 EDT, [id number] 157, cm, 02/19/22 12:58:00 EDT, Height, 85.9 Start Date: 02/19/22 Stop Date: 02/26/22 Status: Ordered Start: 09-17-2021 End: 09-24-2021 Keflex 500 mg oral capsule D ose : 500 mg = 1 cap(s), Oral, q12h, X 7 day(s), # 14 cap(s), 0 Refill(s), 09/24/21 14:50:00 EST, Pharmacy: [facility]/pharmacy #[id number], UTI symptoms, 156.8, cm, 09/17/21 14:03:00 EST, Height, 85.6, kg, 09/17/21 14:03:00 EST, Dosing Weight Start Date: 09/17/21 Stop Date: 09/24/21 Status: Ordered Start: 09-02-2021 End: 09-02-2021 cephALEXin 500 mg cap(s) (KE FLEX) cholecalciferol 0.125 mg oral capsule (20 sources) Vitamin D Start: 01-20-2022 take 1 capsule by mouth once daily Cholecalciferol (Vitamin D3) 125 mcg (5,000 unit) capsule Active 125 ug PO DAILY January 20, 2022 12:00am vitamin Complies with drug therapy DME MISCellaneous (5 sources) Start: 10-13-2023 DME MISCellane ous See Instructions, glucometer., # 1 EA, 0 Refill(s), Pharmacy: [facility] [id number], 154, cm, 08/31/23 11:39:00 EST, Height, 81, [...] mg PO DAILY July 17, 2024 12:00am Complies with drug therapy Start: 01-06-2022 End: 05-21-2024 take 1 tablet by mouth once daily Escitalopram Oxalate (Lexapro) 10 mg tablet Discontinued 10 mg PO DAILY January 20, 2022 12:00am April 01, 2024 9:07pm depression Start: 07-22-2021 Lexapro 10 mg oral tablet Dose : 10 mg = 1 tab(s), Oral, qDay, # 90 tab(s), 1 Refill(s), Pharmacy: [facility]/pharmacy #[id number], Recurrent depression, 157, cm, 07/22/21 15:01:00 EDT, Height, kg, 07/22/21 15:01:00 EDT, Dosing Weight Start Date: 07/22/21 Status: Ordered Gemtesa (2 sources) Start: 02-11-2023 take 1 mg by mouth once daily Gemtesa mg =, Oral, qDay, 0 Refill(s) Start Date: 02/11/23 Status: Ordered insulin degludec 100 unt/ml injectable solution (20 sources) Insulin Analog Start: 04-01-2024 Insulin Deglud ec (Tresiba U-100 Insulin) 100 unit/mL solution Active 25 U SC DAILY April 01, 2024 12:00am diabetes Complies with drug therapy Start: 03-30-2024 End: 09-26-2024 inject 1 dose by subcutaneous injection once daily Tresiba FlexTouch 200 units/mL 3 mL subcutaneous solution Dose : 25 unit(s) =, Subcutaneous, qDay, rotate injection sites, # 9 mL, 5 Refill(s), Pharmacy: [place] [id number], 154, cm, 03/30/24 8:57:00 EDT, Height, kg, 03/30/24 8:57:00 EDT, Dosing Weight Start Date: 03/30/24 Stop Date: 09/26/24 Status: Ordered Start: 08-14-2023 End: 04-01-2024 Insulin Degludec (Tresiba Flextouch U-100) 100 unit/mL (3 mL) insulin pen Discontinued 30 U SC DAILY August 14, 2023 1:00am April 01, 2024 4:47pm Start: 2023 End: 02-05-2024 inject 1 dose by subcutaneous injection once daily Tresiba FlexTouch 200 units/mL 3 mL subcutaneous solution Dose : 30 unit(s) =, Subcutaneous, qDay, rotate injection sites, # 9 mL, 5 Refill(s), Pharmacy: [facility] [id number], 155, cm, 08/09/23 10:54:00 EST, Height, kg, 08/09/23 10:37:00 EST, Dosing Weight Start Date: 08/09/23 Stop Date: 02/05/24 Status: Ordered Start: 05-19-2022 End: 05-17-2023 Insulin Degludec 200 unit/mL (3 mL) insulin pen Discontinued 40 U SC AT BEDTIME May 19, 2022 10:39am May 17, 2023 2:45pm diabetes Start: 05-19-2022 End: 05-17-2023 Insulin Degludec Discontinue [...] sites, # 2 EA, 5 Refill(s), Pharmacy: [facility] [id number], 157, cm, 08/25/22 16:05:00 EST, Height, kg, [...] Discontinued 25 U SC AT BEDTIME 7.5 25 0 January 22, 2021 12:22pm February 19, 2021 3:39pm Start: 11-23-2019 End: 01-22-2021 Insulin Degludec 200 unit/mL (3 mL) insulin pen Discontinued 50 U SC AT BEDTIME 7.5 25 0 November 23, 2019 4:37pm January 22, 2021 12:22pm Start: 12-29-2018 End: 11-23-2019 Insulin Degludec 200 unit/mL (3 mL) insulin pen Discontinued SC 9 25 0 December 29, 2018 12:00am November 23, 2019 4:41pm Start: 12-29-2018 End: 05-19-2022 Comment on above: Inject 40 Units subc utaneously once daily. Insulin Degludec (Tresiba U-100 Insulin) 100 unit/mL solution (7 sources) Start: 04-01-2024 Insulin Degludec (Tresiba U-100 Insulin) 100 unit/mL solution Active 25 U SC DAILY April 01, 2024 12:00am diabetes Start: 04-01-2024 Insulin Deglud ec (Tresiba U-100 Insulin) 100 unit/mL solution Active 25 U SC DAILY April 01, 2024 12:00am levothyroxine sodium 0.05 mg oral tablet (20 sources) l-Thyroxine Start: 04-19-2024 take 1 tablet by mouth once daily Levothyroxine 50 mcg tablet Active 50 ug PO DAILY April 19, 2024 12:00am Complies with drug therapy Start: 03-30-2024 levothyroxine 50 mcg (0.05 mg) oral tablet Dose : 50 mcg = 1 tab(s), Oral, qDay, # 30 tab(s), 11 Refill(s), Pharmacy: [place] [id number], Chronic low back pain Hypothyroidism, 154, cm, 03/30/24 8:57:00 EDT, Height, kg, 03/30/24 8:57:00 EDT, Dosing Weight Start Date: 03/30/24 Status: Ordered Start: 12-29-2018 End: 10-21-2021 take 1 tablet by mouth once daily Levothyroxine 50 mcg tablet Discontinued 50 ug PO DAILY December 29, 2018 12:00am October 21, 2021 3:07pm loperamide hydrochloride 2 mg oral capsule (20 sources) Opioid Agonist Start: 07-02-2025 Loperamide 2 m g capsule Active mg PO July 02, 2025 12:00am Complies with drug therapy Start: 05-16-2023 End: 04-01-2024 take 4 tablets by mouth every twenty-four hours as needed Loperamide (Anti-Diarrheal (Loperamide)) 2 mg capsule Discontinued 4 mg PO Q2H as needed for diarrhea May 16, 2023 12:00am April 01, 2024 4:47pm after first loose stool, 1 tablet after each subsequent loose stool but no more than 4 tablets in 24 hours loratadine 10 mg oral tablet (2 sources) Start: 07-02-2025 take 1 tablet by mouth once daily Loratadine 10 mg tablet Active 10 mg PO daily July 02, 2025 12:00am Complies with drug therapy losartan potassium 50 mg oral tablet (20 sources) Angiotensin 2 Receptor Tawana Start: 07-02-2025 take 1 tablet by mouth once daily Losartan 50 mg tablet Active 50 mg PO daily July 02, 2025 12:00am Complies with drug therapy Start: 04-12-2024 End: 07-02-2025 take 1 tablet by mouth once daily Losartan 25 mg tablet Discontinued 25 mg PO DAILY 01 09April 12, 2024 10:34am July 02, 2025 3:56pm Start: 05-17-2023 End: 08-14-2023 take 1 tablet by mouth once daily Losartan 100 mg Tablet Discontinued 100 mg PO DAILY 1 May 17, 2023 12:00am August 14, 2023 3:58pm BP Start: 05-17-2023 End: 04-12-2024 Losartan 100 mg Tablet Disco ntinued 25 mg PO DAILY August 14, 2023 1:00am April 12, 2024 10:35am BP Start: 05-17-2023 End: 04-12-2024 Start: 12-04-2021 End: 05-17-2023 take 1 tablet by mouth once daily Losartan 25 mg tablet Discontinued 25 mg PO DAILY 01 09April 20, 2023 4:47pm May 17, 2023 2:47pm BP Start: 05-03-2017 take 1 tablet by adrián [...] responds, # 2 EA, 0 Refill(s), Pharmacy: [facility] - [id number], 157, cm, 01/07/23 11:37:00 EDT, Height Start Date: 02/04/23 Status: Ordered nitroglycerin 0.4 mg sublingual tablet (20 sources) Nitrate Vasodilator Start: 07-02-2025 Nitroglycerin 0.4 mg tablet, sublingual Active 0.4 mg SL Q5M as needed July 02, 2025 12:00am do not exceed 3 doses per episode Complies with drug therapy Start: 10-22-2021 nitroglycerin 0.4 mg sublingual tablet 0 Refill(s) Start Date: 10/22/21 Status: Ordered Start: 10-21-2021 End: 04-01-2024 Nitroglycerin (Nitrostat) 0. 4 mg tablet, sublingual Discontinued 0.4 mg SL every 5 to 15 minutes as needed for chest pain 25 12October 21, 2021 1:00am April 01, 2024 4:48pm do not exceed 3 doses per episode Start: 10-21-2021 End: 04-01-2024 Start: 10-21-2021 Nitroglycerin (Nitrostat) 0.4 mg tablet, sublingual Active 0.4 MG SL every 5 to 15 minutes October 21, 2021 1:00am do not exceed 3 doses per episode Start: 10-21-2021 nitroglycerin 0.4 mg subling ual tablet (1 source) Start: 10-22-2021 nitroglycerin 0.4 mg sublingual tablet 0 Refill(s) Start Date: 10/22/21 Status: Ordered Pen needles 5 mm (2 sources) Start: 11-04-2020 Pen needles 5 mm See Instructions, qs for 1 month supply, BD UF mini pen needles [id number], DX: E11.9, # 1 EA, 11 Refill(s), Pharmacy: [facility]/pharmacy #[id number], 157.5, cm, 11/04/20 13:17:00 EST, Height, 90.7, kg, 11/04/20 13:17:00 EST, Dosing Weight Start Date: 11/04/20 Status: Ordered potassium chloride 10 meq extended release oral tablet (20 sources) Start: 07-02-2025 Potassium Chlo ride (Klor-Con 10) 10 mEq tablet extended release Active 10 meq PO daily July 02, 2025 12:00am Complies with drug therapy Start: 09-11-2017 End: 11-03-2017 take 1 tablet by mouth once daily Potassium Chloride 20 MEQ tablet Discontinued 20 meq PO DAILY September 11, 2017 1:00am November 03, 2017 5:07pm supplement Start: 06-08-2017 End: 06-29-2017 take 1 tablet by mouth twice daily Potassium Chloride 10 MEQ tablet Discontinued 10 meq PO TWICE A DAY June 08, 2017 12:00am June 29, 2017 8:46pm rOPINIRole 1 mg oral tablet (20 sources) Nonergot Dopamine Agonist Start: 05-19-2022 take 1 tablet by mouth once daily Ropinirole 1 mg tablet Active 1 mg PO DAILY July 17, 2024 12:00am Complies with drug therapy Start: 05-19-2022 take 2 tablets by mo ut at bedtime Ropinirole 1 mg tablet Active 2 mg PO AT BEDTIME May 19, 2022 12:00am pain Complies with drug therapy Start: 05-19-2022 take 2 mg by mouth twice daily Ropinirole Active 2 MG PO TWICE A DAY May 19, 2022 12:00am Start: 01-26-2022 take 2 tablets by mo uth in the morning rOPINIRole 1 mg oral tablet See Instructions, Take 2 tabs in the morning and 2 tabs in the evening., # 120 tab(s), 3 Refill(s), Pharmacy: [facility]/pharmacy #[id number], 157, cm, 01/22/22 15:31:00 [...] 2022 1:36pm Start: 12-29-2018 End: 05-19-2022 take 2 tablets by mouth three times daily Ropinirole 0.5 mg tablet Discontinued 1 mg PO THREE TIMES A DAY January 20, 2022 1:34pm May 19, 2022 10:41am Start: 12-29-2018 End: 05-19-2022 take 1 mg by mouth three times daily Ropinirole Discontinued 1 MG PO THREE TIMES A DAY January 20, 2022 1:34pm May 19, 2022 10:41am Comment on above: Take 1 mg by mouth t hree times daily. traMADol hydrochloride 50 mg oral tablet (20 sources) Opioid Agonist Start: 07-02-2025 take 1 tablet by mouth every twelve hours as needed for pain Start: 07-17-2024 End: 10-04-2024 take 1 tablet by mouth four times daily as needed for pain Tramadol 50 mg tablet Discontinued 50 mg PO 4 TIMES DAILY NEEDED as needed for pain July 17, 2024 12:00am October 04, 2024 12:17pm Start: 07-17-2024 End: 02-18-2025 take 1 tablet by mouth every four hours as needed for pain Tramadol 50 mg tablet Discontinued 50 mg PO .every 4 hours as needed for pain 90 14 0 January 09, 2025 12:00am January 22, 2025 12:00am January 22, 2025 1:01pm Chronic pain Acute pain Other chronic pain Pain, unspecified Start: 04-26-2024 End: 05-16-2024 take 1 tablet by mouth every eight hours as needed for pain Tramadol 50 mg tablet Discontinued 50 mg PO Q8H as needed for pain 30 20 0 April 26, 2024 12:00am May 15, 2024 12:00am May 16, 2024 12:04am Start: 04-26-2024 End: 07-02-2025 take 1 tablet by mouth every six hours as needed for pain Tramadol 50 mg tablet Discontinued 50 mg PO .every 6 hours as needed for pain 60 0 June 18, 2025 12:11pm July 02, 2025 9:02am Start: 09-11-2017 End: 11-03-2017 take 1 tablet by mouth every six hours as needed for pain Tramadol 50 MG tablet Discontinued 50 mg PO EVERY 6 HOURS NEEDED as needed for Pain September 11, 2017 1:00am November 03, 2017 5:08pm traZODone hydrochloride 150 mg oral tablet (20 sources) Serotonin Reuptake Inhibitor Start: 10-24-2023 End: 05-10-2025 take 1 tablet by mouth at bedtime Trazodone 150 mg tablet Active 150 mg PO AT BEDTIME October 24, 2023 12:19pm sleep Complies with drug therapy Start: 09-13-2023 traZODone 150 mg oral tablet Dose : 150 mg = 1 tab(s), Oral, qHS, # 90 tab(s), 0 Refill(s), Pharmacy: [facility] [id number], 154, cm, 08/31/23 11:39:00 EST, Height, kg, 08/31/23 11:39:00 EST, Dosing Weight Start Date: 09/13/23 Status: Ordered Start: 05-17-2023 traZODone 150 mg oral tablet Dose : 150 mg = 1 tab(s), Oral, qHS, # 90 tab(s), 0 Refill(s), Pharmacy: [facility] [id number], 155, cm, 04/08/23 11:20:00 EDT, Height, kg, 04/08/23 11:20:00 EDT, Dosing Weight Start Date: 05/17/23 Status: Ordered Start: 02-18-2023 traZODone 150 mg oral tablet Dose : 150 mg = 1 tab(s), Oral, qHS, # 90 tab(s), 0 Refill(s), Pharmacy: [facility] [id number], 155.5, cm, 02/11/23 10:54:00 EDT, Height, kg, 02/11/23 10:54:00 EDT, Dosing Weight Start Date: 02/18/23 Status: Ordered Start: 11-30-2022 traZODone 150 mg oral tablet Dose : 150 mg = 1 tab(s), Oral, qHS, # 90 tab(s), 0 Refill(s), Pharmacy: [facility] [id number], 157, cm, 11/19/22 15:09:00 EST, Height, kg, 11/19/22 15:13:00 EST, Dosing Weight Start Date: 11/30/22 Status: Ordered Start: 05-19-2022 End: 10-24-2023 take 2 tablets by mouth at bedtime Trazodone 150 mg tablet Discontinued 300 mg PO AT BEDTIME May 19, 2022 12:00am October 24, 2023 12:20pm sleep Start: 05-19-2022 End: 10-24-2023 Start: 05-19-2022 End: 10-24-2023 take 300 mg by mouth at bedtime Trazodone Discontinued 300 MG PO AT BEDTIME May 19, 2022 12:00am October 24, 2023 12:20pm Start: 05-19-2022 Start: 04-21-2022 traZODone 150 mg oral tablet Dose : 150 mg = 1 tab(s), Oral, qHS, # 90 tab(s), 1 Refill(s), Pharmacy: [facility]/pharmacy #[id number], 157, cm, 04/07/22 10:54:00 [...] qHS, # 90 tab(s), 3 Refill(s), Pharmacy: [facility]/pharmacy #[id number], 157, cm, 12/04/21 11:32:00 EST, Height, kg, 12/04/21 11:32:00 EST, Dosing Weight Start Date: 12/04/21 Stop Date: 11/29/22 Status: Ordered Start: 10-22-2021 traZODone 150 mg oral tablet Dose : 150 mg = 1 tab(s), Oral, BID, # 60 tab(s), 11 Refill(s), Pharmacy: [facility]/pharmacy #[id number], 157, cm, 10/22/21 10:32:00 [...] sites, # 3 EA, 11 Refill(s), Pharmacy: [facility]/pharmacy #[id number], 157.5, cm, 04/08/21 14:24:00 EDT, Height, kg, 04/08/21 14:24:00 EDT, Dosing Weight Start Date: 04/08/21 Stop Date: 04/03/22 Status: Ordered Vitamin D3 125 mcg (5000 intl units) oral capsule (5 sources) Start: 09-13-20 End: 09-07-20 Vitamin D3 125 mcg (5000 intl units) oral capsule Dose : 5,000 International_Unit = 1 cap(s), Oral, qDay, # 90 cap(s), 3 Refill(s), Pharmacy: [facility], [place] - [id number], Afib Anticoagulant long-term use, 154, cm, 08/31/23 11:39:00 EST, Height, kg, 08/31/23 11:39:00 EST, Dosing Weight Start Date: 09/13/23 Stop Date: 09/07/24 Status: Ordered Start: 09-07-2022 End: 09-02-2023 Vitamin D3 125 mcg (5000 int l units) oral capsule Dose : 5,000 International_Unit = 1 cap(s), Oral, qDay, # 90 cap(s), 3 Refill(s), Pharmacy: [facility] [id number], Afib Anticoagulant long-term use, 157, cm, 08/25/22 [...] 1:00am April 19, 2024 5:30pm Start: 11-20-2023 End: 04-19-2024 Start: 11-20-2023 Hydrocodone-Ac etaminophen Active TABLET November 20, 2023 1:00am Start: 09-21-2023 End: 09-28-2023 take 1 tablet by mouth three times daily as needed for pain [place] 325- 5 mg oral tablet Dose = 1 tab(s), Oral, TID, PRN for pain, # 21 tab(s), 0 Refill(s), Pharmacy: [facility] [id number], Arthritis, 154, cm, 08/31/23 11:39:00 EST, Height, 81, kg, 08/31/23 11:39:00 EST, Dosing Weight Start Date: 09/21/23 Stop Date: 09/28/23 Status: Ordered Start: 2023 End: 09-08-2023 take 1 tablet by mouth three times daily as needed for pain [place] 325- 5 mg oral tablet Dose = 1 tab(s), Oral, TID, PRN for pain, # 90 tab(s), 0 Refill(s), Pharmacy: [facility] [id number], Arthritis, 155, cm, 08/09/23 10:54:00 EST, Height, 83.4, kg, 08/09/23 10:37:00 EST, Dosing Weight Start Date: 08/09/23 Stop Date: 09/08/23 Status: Ordered Start: 04-13-2023 End: 05-13-2023 take 1 tablet by mouth three times daily as needed for pain [place] 325- 5 mg oral tablet Dose = 1 tab(s), Oral, TID, PRN for pain, # 90 tab(s), 0 Refill(s), Pharmacy: [facility] [id number], Chronic low back pain, 155.5, cm, 02/11/23 10:54:00 EDT, Height, 90.4 Start Date: 04/13/23 Stop Date: 05/13/23 Status: Ordered Start: 02-11-2023 End: 04-12-2023 take 1 tablet by mouth three times daily as needed for pain [place] 325- 5 mg oral tablet Dose = 1 tab(s), Oral, TID, PRN for pain, # 90 tab(s), 0 Refill(s), Pharmacy: [facility] [id number], Arthritis, 155.5, cm, 02/11/23 10:54:00 EDT, Height, 90.4 Start Date: 03/13/23 Stop Date: 04/12/23 Status: Ordered Start: 12-17-2022 End: 01-16-2023 take 1 tablet by mouth twice daily as needed for pain [place] 325- 5 mg oral tablet Dose = 1 tab(s), Oral, BID, PRN for pain, # 60 tab(s), 0 Refill(s), Pharmacy: [facility] [id number], Arthritis, 157, cm, 12/17/22 8:53:00 EDT, Height, 89.1, kg, 12/17/22 8:53:00 EDT, Dosing Weight Start Date: 12/17/22 Stop Date: 01/16/23 Status: Ordered Start: 05-19-2022 End: 11-10-2023 take 1-10 tablets by mouth every twelve hours as needed for pain Hydrocodone-Acetaminophen ([place]) 5-325 mg tablet Discontinued 1 {tbl} PO Q12H as needed for Pain 1-10 Or Fever 0 May 19, 2022 10:37am November 10, 2023 3:41pm Start: 04-07-2022 End: 05-07-2022 take 1 tablet by mouth twice daily as needed for pain [place] 325- 5 mg oral tablet Dose = 1 tab(s), Oral, BID, PRN for pain, # 60 tab(s), 0 Refill(s), Pharmacy: [facility]/pharmacy #[id number], Arthritis, 157, cm, 04/07/22 10:54:00 EDT, Height, 86.3, kg, 04/07/22 10:54:00 EDT, Dosing Weight Start Date: 04/07/22 Stop Date: 05/07/22 Status: Ordered Start: 02-09-2022 End: 04-04-2022 take 1 tablet by mouth twice daily as needed for pain [place] 325- 5 mg oral tablet Dose = 1 tab(s), Oral, BID, PRN for pain, # 60 tab(s), 0 Refill(s), Pharmacy: [facility]/pharmacy #[id number], Arthritis, 157, cm, 03/05/22 14:26:00 EDT, Height, 85, kg, 03/05/22 14:26:00 EDT, Dosing Weight Start Date: 03/05/22 Stop Date: 04/04/22 Status: Ordered Start: 11-03-2021 End: 12-03-2021 take 1 tablet by mouth twice daily as needed for pain [place] 325- 5 mg oral tablet Dose = 1 tab(s), Oral, BID, PRN for pain, short term in absence of PCP, # 60 tab(s), 0 Refill(s), Pharmacy: [facility]/pharmacy #[id number], Arthritis, 157, cm, 10/22/21 10:32:00 EST, Height, 85, kg, 10/22/21 10:32:00 EST, Dosing Weight Start Date: 11/03/21 Stop Date: 12/03/21 Status: Ordered Start: 09-03-2021 End: 10-03-2021 take 1 tablet by mouth twice daily as needed for pain [place] 325- 5 mg oral tablet Dose = 1 tab(s), Oral, BID, PRN for pain, short term in absence of PCP, # 60 tab(s), 0 Refill(s), Pharmacy: [facility]/pharmacy #[id number], Arthritis, 157.6, cm, 09/03/21 11:20:00 EST, Height, 85.7, kg, 09/03/21 11:20:00 EST, Dosing Weight Start Date: 09/03/21 Stop Date: 10/03/21 Status: Ordered Start: 12-29-2020 End: 11-10-2023 take 1-10 tablets by mouth at bedtime as needed for pain Hydrocodone-Acetaminophen ([place]) 5-325 mg tablet Discontinued 1 {tbl} PO AT BEDTIME as needed for Pain 1-10 Or Fever 0 December 29, 2020 12:00am May 19, 2022 [...] 30, 2015 1:00pm Start: 01-08-2015 End: 01-30-2015 Start: 01-08-2015 End: 01-30-2015 take 1 tablet by mouth every four hours as needed Oxycodone-Acetaminophen Discontinued 1 TABLET PO EVERY 4 HOURS NEEDED January 08, 2015 12:00am January 30, 2015 1:00pm Start: 01-08-2015 End: 01-30-2015 200 actuat albuterol 0.09 mg/actuat dry powder inhaler (20 sources) beta2-Adrenergic Agonist Start: 11-06-2018 End: 11-23-2019 take 90 ug by inhalation every six hours as needed Albuterol Sulfate (Proair Respiclick) 90 mcg/actuation aerosol powdr breath activated Discontinued 2 NMA INHALATION EVERY 6 HOURS as needed November 06, 2018 1:00am November 23, 2019 4:36pm Start: 11-06-2018 End: 11-23-2019 Start: 11-06-2018 End: 11-23-2019 take 1 puff(s) by inhalation every six hours Albuterol Sulfate (Proair Respiclick) 90 mcg/actuation aerosol powdr breath activated Discontinued 2 PUFF INHALATION EVERY 6 HOURS November 06, 2018 1:00am November 23, 2019 4:36pm albuterol 0.833 mg/ml / ipratropium bromide 0.167 mg/ml inhalation solution (20 sources) Anticholinergic, beta2-Adrenergic Agonist Start: 01-08-2015 End: 01-30-2015 take 1 mL by inhalation every two hours as needed for dyspnea Ipratropium-Albuterol 3 ML Ampul.Neb Discontinued 3 mL INHALATION EVERY 2 HOURS NEEDED as needed for Dyspnea/Wheezing/Sob January 08, 2015 12:00am January 30, 2015 12:57pm Start: 01-08-2015 End: 01-30-2015 Start: 01-08-2015 End: 01-30-2015 take 1 mL by inhalation every two hours as needed Ipratropium-Albuterol Discontinued 3 ML INHALATION EVERY 2 HOURS NEEDED January 08, 2015 12:00am January 30, 2015 12:57pm Start: 01-08-2015 End: 01-30-2015 ALPRAZolam 0.5 mg oral tablet (20 sources) Benzodiazepine Start: 10-22-2024 End: 06-18-2025 take 2 tablets by mouth at bedtime Alprazolam 0.5 mg tablet Discontinued 0.5 mg PO As Directed 60 0 June 14, 2025 10:51am June 18, 2025 4:38pm 2 tabs p.o. at bedtime Start: 03-29-2018 End: 06-18-2025 take 1 tablet by mouth twice daily Alprazolam 0.5 mg tablet Discontinued 0.5 mg PO TWICE A DAY 60 0 May 22, 2025 10:57am June 18, 2025 12:09pm anxiety Start: 03-29-2018 End: 11-23-2019 take 1 tablet by mouth once daily Alprazolam 0.5 mg tablet Discontinued 0.5 mg PO daily March 29, 2018 12:00am November 23, 2019 4:41pm Start: 03-29-2018 End: 10-16-2024 take 1 tablet by mouth four times daily Alprazolam 0.5 mg tablet Discontinued 0.5 mg PO 4 TIMES DAILY November 23, 2019 4:37pm October 16, 2024 12:57pm anxiety Start: 03-29-2018 End: 04-04-2022 ALPRAZolam 0.5 mg oral table t Dose : 0.5 mg = 1 tab(s), Oral, QID, # 120 tab(s), 0 Refill(s), Pharmacy: [facility]/pharmacy #[id number], Anxiety, 157, cm, 03/05/22 14:26:00 EDT, Height, 85, kg, 03/05/22 14:26:00 EDT, Dosing Weight Start Date: 03/05/22 Stop Date: 04/04/22 Status: Ordered Comment on above: Take 0.5 mg by mouth three times daily. amiodarone hydrochloride 200 mg oral tablet (20 sources) Antiarrhythmic Start: 07-27-2017 End: 09-06-2017 Amiodarone 200 MG tablet Discontinued 100 mg PO TWICE A DAY September 03, 2017 3:12pm September 06, 2017 12:33pm HEART Start: 07-27-2017 End: 09-03-2017 Amiodarone 200 MG tablet Discontinued 200 mg PO 0800,1800 0 July 27, 2017 12:00am September 03, 2017 3:13pm Start: 07-27-2017 End: 09-06-2017 take 100 mg by mouth twice daily Amiodarone Discontinu ed 100 MG PO TWICE A DAY September 03, 2017 3:12pm September 06, 2017 12:33pm Start: 06-08-2017 End: 07-27-2017 take 1 tablet by mouth twice daily at mealtime Amiodarone (Pacerone) 400 MG tablet Discontinued 400 mg PO TWICE DAILY WITH MEALS 60 0 June 29, 2017 8:46pm July 27, 2017 9:26pm amoxicillin 875 mg / clavulanate 125 mg oral tablet (5 sources) Penicillin-class Antibacterial Start: 11-23-2017 amoxicillin-clavulanic acid (AUGMENTIN) 875-125 mg per tablet 0 11/23/2017 Active apixaban 5 mg oral tablet (20 sources) Factor Xa Inhibitor Start: 04-20-2023 End: 01-10-2025 take 2.5 mg by mouth twice daily Apixaban (Eliquis) 5 mg tablet Active 2.5 mg PO TWICE A DAY 180 4 January 10, 2025 3:20pm blood thinner Complies with drug therapy Start: 04-20-2023 End: 10-25-2023 take 1 tablet by mouth every twelve hours Apixaban (Eliquis) 5 mg tablet Discontinued 5 mg PO Q12H April 20, 2023 12:00am October 25, 2023 2:22pm blood thinner Start: 04-20-2023 End: 04-12-2025 take 1 tablet by mouth twice daily Apixaban (Eliquis) 5 mg tablet Discontinued 5 mg PO TWICE A DAY 180 4 October 25, 2023 2:22pm January 10, 2025 3:20pm blood thinner Start: 04-08-2023 End: 04-02-2024 Eliquis 5 mg oral tablet Dos e : 5 mg = 1 tab(s), Oral, BID, Patient is going off warfarin today and will start Eliquis on April 13, # 60 tab(s), 11 Refill(s), Pharmacy: [id number], 155, cm, 04/08/23 11:20:00 EDT, Height, 90, kg, 04/08/23 11:20:00 EDT, Dosing Weight Start Date: 04/08/23 Stop Date: 04/02/24 Status: Ordered Start: 10-22-2021 End: 10-17-2022 Eliquis 5 mg oral tablet Dos e : 5 mg = 1 tab(s), Oral, BID, # 60 tab(s), 11 Refill(s), Pharmacy: [facility]/pharmacy #[id number], 157, cm, 10/22/21 10:32:00 [...] bisacodyl 5 mg delayed release oral tablet (20 sources) Stimulant Laxative Start: 09-05-2017 End: 11-03-2017 [...] 0.5 mg PO TWICE A DAY 60 0 June 29, 2017 8:46pm July 27, 2017 9:26pm canagliflozin 300 mg oral tablet (5 sources) Sodium-Glucose Cotransporter 2 Inhibitor Start: 05-03-2017 take 1 tablet by mouth once daily INVOKANA 300 mg tablet Take 300 mg by mouth once daily. 4 05/03/2017 Active Comment on above: Take 300 mg by mouth once daily. ciprofloxacin 500 mg oral tablet (20 sources) Quinolone Antimicrobial Start: 2023 End: 08-19-2023 take 1 tablet by mouth every twelve hours Ciprofloxacin Hcl 500 mg tablet Discontinued 500 mg PO Q12H August 14, 2023 1:00am August 14, 2023 9:55pm UTI X10D FILLED 08/09 citalopram 40 mg oral tablet (5 sources) Serotonin Reuptake Inhibitor take 1 tablet by mouth once daily citalopram (CELEXA) 40 mg tablet Take 40 mg by mouth once daily. 0 Active Comment on above: Take 40 mg by mouth once daily. clonazePAM 0.5 mg oral tablet (20 sources) Benzodiazepine Start: 09-05-2017 End: 09-06-2017 take 1 tablet by mouth three times daily Clonazepam (Klonopin) 0.5 MG tablet Discontinued 0.5 mg PO THREE TIMES A DAY September 05, 2017 1:00am September 06, 2017 12:33pm ANXIETY Start: 09-05-2017 End: 03-29-2018 take 1 tablet by mouth every twelve hours as needed for anxiety Clonazepam 0.5 MG tablet Discontinued 0.5 mg PO EVERY 12 HOURS NEEDED as needed for ANXIETY 6 0 September 06, 2017 1:00am September 11, 2017 5:33am Taper this medication to DC. Start: 09-05-2017 End: 03-29-2018 take 2 tablets by mouth [...] mg PO THREE TIMES A DAY 90 0 July 27, 2017 9:27pm September 03, 2017 3:13pm clopidogrel 75 mg oral tablet (20 sources) [id number] Platelet Inhibitor Start: 01-09-2021 End: 01-22-2021 take 1 tablet by mouth once daily Clopidogrel 75 mg tablet Discontinued 75 mg PO DAILY January 09, 2021 2:38pm January 13, 2021 11:23am For Cardiac Cath dicyclomine hydrochloride 10 mg oral capsule (13 sources) Anticholinergic Start: 04-26-2024 End: 07-17-2024 take 1 capsule by mouth twice daily Dicyclomine 10 mg capsule Discontinued 10 mg PO TWICE A DAY 60 2 April 26, 2024 12:00am July 17, 2024 12:31pm digoxin 0.125 mg oral tablet (20 sources) Cardiac Glycoside Start: 06-08-2017 End: 09-03-2017 take 1 tablet by mouth once daily Digoxin 125 MCG tablet Discontinued 125 ug PO DAILY 30 0 June 29, 2017 8:46pm September 03, 2017 3:13pm docusate sodium 50 mg / sennosides, care home 8.6 mg oral tablet (20 sources) Start: 09-05-2017 End: 11-03-2017 Sennosides-Docusa te Sodium 1 EACH tablet Discontinued 1 NMA PO TWICE A DAY September 05, 2017 1:00am November 03, 2017 5:07pm STOOL SOFTENER Start: 09-05-2017 End: 11-03-2017 Start: 09-05-2017 End: 11-03-2017 Sennosides-Docusate Sodium D [...] take 1 tablet by mouth once daily fluconazole 200 mg oral tablet (20 sources) Azole Antifungal Start: 12-29-2018 End: 11-23-2019 [...] 01, 2024 12:00am April 01, 2024 9:07pm water pill Start: 10-24-2023 End: 02-22-2024 take 1 tablet by mouth once daily Furosemide (Lasix) 40 mg tablet Discontinued 40 mg PO DAILY 01 09December 14, 2023 1:10pm February 22, 2024 10:07am [...] 14, 2023 1:00am July 17, 2024 12:31pm psoriasis Start: 05-12-2023 End: 05-17-2023 Guselkumab (Tremfya) 100 mg/ mL auto-injector Discontinued 100 mg SC .[id number] May 12, 2023 12:00am May 17, 2023 2:45pm psoriasis Start: 02-29-2020 End: 03-28-2020 Tremfya 100 mg/mL subcutaneo us solution Dose : 100 mg =, Subcutaneous, q4wk, # 2 mL, 0 Refill(s) Start Date: 02/29/20 Stop Date: 03/28/20 Status: Ordered handicap placcard (16 sources) Start: 01-20-2022 End: 01-20-2022 handicap placcard Discontinu ed 0 .Route .MEDSUPPLY 1 0 January 20, 2022 12:00am January 20, 2022 2:09pm As directed Start: 01-20-2022 End: 01-20-2022 handicap placcard Discontinu ed 0 .Route .MEDSUPPLY 1 January 19, 2022 11:00pm January 20, 2022 1:09pm As directed Start: 01-20-2022 End: 01-20-2022 handicap placcard Discontinu ed 0 .Route .MEDSUPPLY 1 January 20, 2022 12:00am January 20, 2022 2:09pm As directed hydrALAZINE hydrochloride 25 mg oral tablet (20 sources) Arteriolar Vasodilator Start: 04-02-2024 End: 07-02-2025 take 1 tablet by mouth three times daily Hydralazine 25 mg Tablet Discontinued 25 mg PO THREE TIMES A DAY July 17, 2024 12:00am July 02, 2025 3:55pm Start: 04-02-2024 End: 07-17-2024 take 1 tablet by mouth twice daily Hydralazine 25 mg Tablet Discontinued 25 mg PO TWICE A DAY 120 0 April 02, 2024 12:00am July 17, 2024 12:31pm 3 ml insulin aspart, human 100 unt/ml pen injector (20 sources) Insulin Analog Start: 09-14-2017 End: 11-03-2017 Insulin Aspart U-100 Discontinued 10 UNITS SC 3 TIMES DAILY WITH MEALS September 14, 2017 2:33pm November 03, 2017 5:07pm Start: 09-14-2017 End: 11-03-2017 Insulin Aspart U-100 100 UNI TS/ML insulin pen Discontinued 0 U SC BEFORE MEALS AND AT BEDTIME Protocol: - Use for Total Daily Dose of Insulin 28-36 units- Average size patientsLOW MEDIUM DOSING ALGORITHM Condition: 150-209 mg/dl = 1 unit Condition: 210-269 mg/dl = 2 units Condition: 270-329 mg/dl = 3 units Condition: 330-389 mg/dl = 4 units Condition: 390-449 mg/dl = 5 units Condition: Greater than 449 call physician September 14, 2017 2:33pm November 03, 2017 5:06pm diabetes Please contact the information source for Protocol details. Start: 09-14-2017 End: 11-03-2017 Insulin Aspart U-100 100 UNI TS/ML insulin pen Discontinued 10 U SC 3 TIMES DAILY WITH MEALS September 14, 2017 2:33pm November 03, 2017 5:07pm diabetes Start: 09-14-2017 End: 11-03-2017 Insulin Aspart U-100 100 UNI TS/ML insulin pen Discontinued 0 U SC BEFORE MEALS AND AT BEDTIME September 14, 2017 2:33pm November 03, 2017 5:06pm diabetes Please contact the information source for Protocol details. Start: 09-11-2017 End: 09-14-2017 Insulin Aspart U-100 (Novolo g Flexpen (Bkc)) 100 UNITS/ML Flexpen Discontinued 13 U SC 3 TIMES DAILY WITH MEALS September 11, 2017 1:00am September 14, 2017 12:18pm Start: 09-11-2017 End: 11-03-2017 Start: 09-11-2017 End: 11-03-2017 Insulin Aspart U-100 Discont inued 0 UNITS SC BEFORE MEALS AND AT BEDTIME September 14, 2017 2:33pm November 03, 2017 5:06pm Start: 06-08-2017 End: 06-29-2017 Insulin Aspart U-100 (Novolo g Flexpen U-100 Insulin) 100 UNITS/ML Flexpen Discontinued 0 U SC BEFORE MEALS AND AT BEDTIME Protocol: Custom Sliding Scale Condition: 151-180 Dose/Route: 2 UNITS Condition: 181-210 Dose/Route: 4 units Condition: 211-240 Dose/Route: 6 units Condition: 241-270 Dose/Route: 8 units Condition: 271-300 Dose/Route: 10 units Condition: 301-350 Dose/Route: 12 units Condition: 351-400 Dose/Route: 14 units June 08, 2017 3:38pm June 29, 2017 8:41pm Please contact the information source for Protocol details. Start: 01-30-2015 End: 06-08-2017 Insulin Aspart U-100 (Novolo g Flexpen U-100 Insulin) 100 UNITS/ML Flexpen Discontinued 12 U SC 3 TIMES DAILY WITH MEALS 0 0 January 30, 2015 12:00am June 08, 2017 3:38pm Start: 01-30-2015 End: 06-29-2017 Start: 01-30-2015 End: 06-29-2017 Insulin Degludec (Tresiba Flextouch U-100) 100 unit/mL (3 mL) insulin pen (12 sources) Start: 08-14-2023 End: 04-01-2024 Insulin Degludec [...] Degludec 200 unit/mL (3 mL) insulin pen (7 sources) Start: 05-19-2022 End: 05-17-2023 Insulin Degludec 200 unit/mL (3 mL) insulin pen Discontinued 40 U SC AT BEDTIME May 19, 2022 10:39am May 17, 2023 2:45pm diabetes Start: 05-19-2022 End: 05-17-2023 Insulin Degludec 200 [...] 2018 2:45pm Start: 11-03-2017 End: 12-29-2018 Start: 11-03-2017 End: 12-29-2018 Start: 09-14-2017 End: 11-03-2017 Insulin Detemir U-100 100 UN ITS/ML insulin pen Discontinued 18 U SC TWICE A DAY September 14, 2017 2:33pm November 03, 2017 5:07pm diabetes Start: 09-14-2017 End: 11-03-2017 Insulin Detemir U-100 (Levem ir Flextouch U100 Insulin) 100 UNITS/ML Insuln.Pen Discontinued 18 U SC TWICE A DAY 0 September 14, 2017 1:00am September 14, 2017 2:33pm Start: 09-03-2017 End: 09-14-2017 Insulin Detemir U-100 (Levem ir Flextouch U100 Insulin) 100 UNITS/ML Insuln.Pen Discontinued 20 U SC TWICE A DAY September 03, 2017 3:12pm September 14, 2017 12:18pm blood sugar Start: 07-27-2017 End: 09-03-2017 Insulin Detemir U-100 (Levem ir Flextouch U100 Insulin) 100 UNITS/ML Insuln.Pen Discontinued 15 U SC TWICE A DAY 1 0 July 27, 2017 12:00am September 03, 2017 3:13pm Start: 06-08-2017 End: 07-27-2017 Insulin Detemir U-100 (Levem ir Flextouch U100 Insulin) 100 UNITS/ML Insuln.Pen Discontinued 45 U SC AT BEDTIME June 08, 2017 3:38pm July 27, 2017 9:26pm Start: 01-30-2015 End: 06-08-2017 Insulin Detemir U-100 (Levem ir Flextouch U100 Insulin) 100 UNITS/ML Insuln.Pen Discontinued 48 U SC AT BEDTIME 0 0 January 30, 2015 12:00am June 08, 2017 3:38pm Start: 01-08-2015 End: 01-30-2015 Insulin Detemir U-100 (Levem ir (Bkc)) 100 UNITS/ML Insuln.Pen Discontinued 40 U SC AT BEDTIME January 08, 2015 12:00am January 30, 2015 12:56pm Start: 01-08-2015 End: 11-03-2017 Start: 01-08-2015 End: 11-03-2017 insulin detemir (LEVEMIR) 100 unit/mL injection Inject subcutaneously daily at bedtime. 0 Active Comment on above: Inject subcutaneousl y daily at bedtime. insulin glargine 100 unt/ml injectable solution (5 sources) Insulin Analog insulin glargine (LANTUS) 100 unit/mL injection Inject subcutaneously daily at bedtime. 0 Active Comment on above: Inject subcutaneousl y daily at bedtime. Insulin Glargine-Yfgn (20 sources) Start: 05-17-2023 End: 08-14-2023 Insulin Glargine-Yfgn 100 unit/mL (3 mL) Insulin Pen Discontinued 40 U SC AT BEDTIME 15 0 May 173 12:00am August 14, 2023 3:54pm blood sugar Start: 05-17-2023 End: 08-14-2023 Insulin Glargine-Yfgn 100 un it/mL (3 mL) Insulin Pen Discontinued 40 U [...] BEDTIME May 17, 2023 12:00am Insulin Lispro (20 sources) Insulin Analog Start: 01-08-2015 End: 01-30-2015 [...] mg tablet Discontinued 750 mg PO DAILY 3 0 May 17, 2023 12:00am June 07, 2023 8:57pm antibiotic Start: 09-14-2017 End: 09-14-2017 Levofloxacin 750 MG tablet D iscontinued 750 mg PO Q48@0600 5 0 September 14, 2017 1:00am September 14, 2017 [...] (XYLOCAINE) liothyronine sodium 0.005 mg oral tablet (20 sources) l-Triiodothyronine Start: 06-29-2017 End: 07-27-2017 take 1 tablet by mouth once daily Liothyronine 5 MCG tablet Discontinued 25 ug PO DAILY@0600 30 0 June 29, 2017 12:00am July 27, 2017 9:27pm Start: 06-29-2017 End: 07-27-2017 take 25 ug by mouth once daily Liothyronine Discontinu ed 25 MCG PO DAILY@0600 30 June 29, 2017 12:00am July 27, 2017 9:27pm lisinopril 5 mg oral tablet (20 sources) Angiotensin Converting Enzyme Inhibitor Start: 12-11-2017 lisinopril (ZESTRIL, PRINIVIL) 5 mg tablet 0 12/11/2017 Active Start: 09-11-2017 End: 11-03-2017 take 1 tablet by mouth twice daily Lisinopril 10 MG tablet Discontinued 10 mg PO TWICE A DAY September 11, 2017 1:00am November 03, 2017 5:08pm blood pressure Start: 09-11-2017 End: 01-20-2022 take 5 mg by mouth once daily Lisinopril 10 MG tablet Discontinued 5 mg PO daily November 03, 2017 5:05pm January 20, 2022 1:36pm blood pressure Start: 09-11-2017 End: 01-20-2022 take 5 mg by mouth once daily Lisinopril Discontinued 5 MG PO daily November 03, 2017 5:05pm January 20, 2022 1:36pm Start: 01-30-2015 End: 09-06-2017 take 1 tablet by mouth once daily Lisinopril 2.5 MG tablet Discontinued 2.5 mg PO DAILY September 03, 2017 3:12pm September 06, 2017 12:33pm blood pressure Comment on above: Take 2.5 mg by mouth once daily. melatonin 3 mg oral tablet (20 sources) Start: 07-27-2017 End: 09-03-2017 take 1 tablet by mouth at bedtime Melatonin 3 MG tablet Discontinued 3 mg PO AT BEDTIME 0 July 27, 2017 12:00am September 03, 2017 3:13pm Start: 07-27-2017 End: 09-03-2017 Start: 07-27-2017 End: 09-03-2017 menthol 0.0044 mg/mg / zinc oxide 0.2 mg/mg topical ointment (20 sources) Start: 09-05-2017 End: 11-03-2017 Menthol-Zinc Oxide 1 APPLIC ointment Discontinued 1 NMA TP THREE TIMES A DAY September 05, 2017 1:00am November 03, 2017 5:07pm SKIN Start: 09-05-2017 End: 11-03-2017 Start: 07-27-2017 End: 09-03-2017 Menthol-Zinc Oxide (Calmosep gwendolyn) 1 APPLIC Tube Discontinued 1 NMA TOPICAL THREE TIMES A DAY 0 July 27, 2017 12:00am September 03, 2017 3:13pm Please contact the information source for Protocol details. Start: 07-27-2017 End: 09-03-2017 Start: 07-27-2017 End: 09-03-2017 Menthol-Zinc Oxide (Calmosep gwendolyn) 1 APPLIC Tube Discontinued 1 APPLIC TOPICAL THREE TIMES A DAY July 27, 2017 12:00am September 03, 2017 3:13pm Start: 07-27-2017 End: 09-03-2017 24 hr metoprolol succinate 25 mg extended release oral tablet (20 sources) beta-Adrenergic Tawana Start: 01-05-2024 End: 07-02-2025 take 2 tablets by mouth once daily Metoprolol Succinate 25 mg tablet extended release 24 hr Discontinued 12.5 mg PO DAILY April 01, 2024 12:00am July 02, 2025 3:55pm blood pressure Start: 01-05-2024 End: 02-22-2024 take 1 tablet by mouth once daily Metoprolol Succinate 25 mg tablet extended release 24 hr Discontinued 25 mg PO DAILY 01 09January 05, 2024 12:00am February 22, 2024 10:15am [...] 06/16/23 Status: Ordered Start: 04-21-2023 End: 01-05-2024 take 1 tablet by mouth once daily Metoprolol Succinate 50 mg tablet extended release 24 hr Discontinued 50 mg PO DAILY October 24, 2023 12:04pm October 24, 2023 12:30pm Start: 04-21-2023 End: 01-05-2024 take 2 tablets by mouth once daily Metoprolol Succinate 50 mg Tablet Extended Release 24 Hr Discontinued 25 mg PO DAILY August 14, 2023 1:00am October 24, 2023 12:07pm Start: 04-21-2023 End: 10-24-2023 take 25 mg by mouth once daily Metoprolol Succinate Di scontinued 25 MG PO DAILY August 14, 2023 1:00am October 24, 2023 12:07pm Start: 04-20-2023 End: 04-21-2023 Metoprolol Succinate 25 mg t ablet extended release 24 hr Discontinued 50 mg PO DAILY 01 09April 20, 2023 2:46pm April 21, 2023 2:33pm Start: 10-21-2021 End: 04-21-2023 take 1 tablet by mouth once daily Metoprolol Succinate 25 mg tablet extended release 24 hr Discontinued 0 .ROUTE .COMPLEX 01 09October 29, 2022 10:31am April 20, 2023 2:47pm TAKE 1 TABLET BY MOUTH DAILY Start: 10-21-2021 End: 04-20-2023 take 1 tablet by mouth once daily Metoprolol Succinate 25 mg tablet extended release 24 hr Discontinued 25 mg PO daily 90 3 October 21, 2021 3:34pm October 29, 2022 10:31am Start: 10-21-2021 End: 04-21-2023 take 50 mg by mouth once daily Metoprolol Succinate Di scontinued 50 MG PO DAILY April 20, 2023 2:46pm April 21, 2023 2:33pm Start: 07-29-2021 Metoprolol Suc cinate ER 50 mg oral TABLET extended release Dose : 50 mg = 1 tab(s), Oral, qDay, # 90 tab(s), 3 Refill(s), Pharmacy: [facility]/pharmacy #[id number], Hypertension, 157, cm, 07/22/21 [...] 2018 3:12pm October 21, 2021 3:34pm Start: 11-03-2017 End: 10-21-2021 take 2 tablets by mouth once daily Metoprolol Succinate (Toprol Xl) 50 mg tablet extended release 24 hr Discontinued 25 mg PO daily October 21, 2021 3:33pm October 21, 2021 3:35pm Start: 10-11-2017 metoprolol suc cinate ER (TOPROL XL) 25 mg 24 hr tablet 0 10/11/2017 Active Start: 01-08-2015 End: 07-27-2017 take 2 tablets by mouth twice daily at mealtime Metoprolol Tartrate 25 MG tablet Discontinued 50 mg PO TWICE DAILY WITH MEALS 30 0 June 29, 2017 8:46pm July 27, 2017 9:27pm Start: 01-08-2015 End: 11-03-2017 Metoprolol Tartrate 25 MG ta blet Discontinued 25 mg PO 0800,1800 0 July 27, 2017 12:00am September 03, 2017 3:13pm Start: 01-08-2015 End: 11-03-2017 take 1 tablet by mouth twice daily Metoprolol Tartrate 25 MG tablet Discontinued 25 mg PO TWICE A DAY September 03, 2017 3:12pm September 06, 2017 12:33pm blood pressure Start: 01-08-2015 End: 11-03-2017 Metoprolol Tartrate 25 MG ta blet Discontinued 12.5 mg PO TWICE A DAY 0 September 06, 2017 1:00am September 06, 2017 7:53pm Start: 01-08-2015 End: 07-27-2017 take 50 mg [...] (20 sources) Leukotriene Receptor Antagonist Start: 12-30-19 End: 07-17-20 24 take 1 tablet by mouth once daily Montelukast 10 mg tablet Discontinued 10 mg PO DAILY December 29, 2020 12:00am July 17, 2024 12:31pm allergies Comment on above: Take 10 mg by mouth once daily. nitrofurantoin, macrocrystals 25 mg / nitrofurantoin, monohydrate 75 mg oral capsule (5 sources) Nitrofuran Antibacterial Start: 12-31-19 18 take 1 capsule by mouth twice daily nitrofurantoin monohydrate and macrocrystal (MACROBID) 100 mg capsule Take 1 capsule by mouth twice daily. 14 capsule 0 12/30/2017 Active Comment on above: Take 1 capsule by [facility] twice daily. Nut.Tx.Gluc Intol,Lf,Soy-Fiber (Glucerna 1.2 Oswald) 120 ML Liquid (16 sources) Start: 09-14-20 17 End: 09-14-20 17 take 1 mL by mouth four times daily Nut.Tx.Gluc Intol,Lf,Soy-Fiber (Glucerna 1.2 Oswald) 120 ML Liquid Discontinued 120 mL PO 4 TIMES DAILY 0 September 14, 2017 1:00am September 14, 2017 [...] 2017 5:07pm Nut.Tx.Gluc.Intol,Lac-Free,S oy 120 ML liquid (9 sources) Start: 09-14-2017 End: 11-03-2017 take 1 mL by mouth four times daily Nut.Tx.Gluc.Intol,Lac-Free,Soy 120 ML liquid Discontinued 120 mL PO 4 TIMES DAILY September 14, 2017 2:33pm November 03, 2017 5:07pm nutritional supplement Start: 09-14-2017 End: 11-03-2017 take 1 mL by mouth four times daily Nut.Tx.Gluc.Intol,Lac-Free,Soy 120 ML li quid Discontinued 120 mL PO 4 TIMES DAILY September 14, 2017 2:33pm November 03, 2017 5:07pm nystatin 100 unt/mg topical powder (20 sources) Polyene Antifungal Start: 12-29-2018 End: 11-23-2019 Nystatin 100,000 unit/gram powder Discontinued 1 NMA TOPICAL THREE TIMES A DAY December 29, 2018 12:00am November 23, 2019 4:39pm Start: 12-29-2018 End: 11-23-2019 Start: 12-29-2018 End: 11-23-2019 Nystatin Discontinued 1 APPL IC TOPICAL THREE TIMES A DAY December 29, 2018 12:00am November 23, 2019 4:39pm Start: 12-29-2018 End: 11-23-2019 Start: 07-27-2017 End: 09-03-2017 Nystatin (Nyamyc) 1 APPLIC b ottle Discontinued 1 NMA TOPICAL THREE TIMES A DAY 0 July 27, 2017 12:00am September 03, 2017 3:13pm Please contact the information source for Protocol details. Start: 07-27-2017 End: 09-03-2017 Start: 07-27-2017 End: 09-03-2017 Nystatin (Nyamyc) 1 APPLIC b ottle Discontinued 1 APPLIC TOPICAL THREE TIMES A DAY July 27, 2017 12:00am September 03, 2017 3:13pm Start: 07-27-2017 End: 09-03-2017 omeprazole 40 mg delayed release oral capsule (20 sources) Proton Pump Inhibitor Start: 04-19-2024 End: 07-17-2024 take 1 capsule by mouth once daily Omeprazole 40 mg capsule,delayed release(DR/EC) Discontinued 40 mg PO DAILY 14 April 30, 2024 1:53pm July 17, 2024 12:31pm ondansetron 8 mg disintegrating oral tablet (19 sources) Serotonin-3 Receptor Antagonist Start: 08-15-2023 End: 04-01-2024 take 1 tablet by mouth every eight hours as needed for nausea and vomiting Ondansetron 8 mg tablet,disintegratin g Discontinued 8 mg PO Q8H as needed for nausea and vomiting 20 August 15, 2023 1:15pm April 01, 2024 4:48pm oxybutynin chloride 5 mg oral tablet (20 sources) Cholinergic Muscarinic Antagonist Start: 06-29-2017 End: 09-03-2017 take 1 tablet by mouth three times daily Oxybutynin Chloride 5 MG tablet Discontinued 5 mg PO THREE TIMES A DAY 90 0 June 29, 2017 12:00am September 03, 2017 3:13pm oxyCODONE hydrochloride 5 mg oral tablet (20 sources) Opioid Agonist Start: 06-08-2017 End: 06-29-2017 take 1 tablet by mouth every four hours as needed for pain Oxycodone 5 MG tablet Discontinued 5 mg PO EVERY 4 HOURS NEEDED as needed for Mod-Severe Pain (4-10/10) June 08, 2017 12:00am June 29, 2017 [...] qDay, # 30 tab(s), 0 Refill(s), Pharmacy: [facility]/pharmacy #[id number], Ascending cholangitis Elevated LFTs, 155, cm, 06/16/23 13:11:00 EDT, Height, kg, 06/16/23 12:56:00 EDT, Dosing Weight Start Date: 06/16/23 Status: Ordered Start: 01-08-2015 End: 09-03-2017 take 1 tablet by mouth twice daily Pantoprazole 40 MG tablet Discontinued 40 mg PO TWICE A DAY 60 0 June 29, 2017 8:46pm September 03, 2017 3:13pm Comment on above: Take 40 mg by mouth twice daily. polyethylene glycol 3350 20244 mg powder for oral solution (20 sources) Osmotic Laxative Start: 09-05-20 17 End: 11-03-19 18 take 17 g by mouth twice daily Polyethylene Glycol 3350 17 GM packet Discontinued 17 g PO TWICE A DAY September 05, 2017 1:00am November 03, 2017 5:07pm LAXATIVE prednisoLONE acetate 10 mg/ml ophthalmic suspension (20 sources) Corticosteroid Start: 12-30-19 End: 02-20-20 Prednisolone Acetate 1 % drops,suspension Discontinued 1 [...] oral tablet (20 sources) Atypical Antipsychotic Start: 09-14-20 End: 11-03-19 18 Quetiapine 25 MG tablet Discontinued 12.5 mg PO AT BEDTIME September 14, 2017 2:33pm November 03, 2017 5:07pm sleep/mood Start: 09-14-2017 End: 11-03-2017 Start: 09-14-2017 End: 11-03-2017 take 12.5 mg [...] at bedtime. sucralfate 1000 mg oral tablet (13 sources) Aluminum Complex Start: 04-19-2024 End: 07-17-2024 take 1 tablet by mouth every six hours Sucralfate (Carafate) 1 gram tablet Discontinued 1 g PO EVERY 6 HOURS 56 14 0 April 19, 2024 12:00am July 17, 2024 12:31pm tiZANidine 4 mg oral capsule (20 sources) Central alpha-2 Adrenergic Agonist Start: 11-10-2023 End: 04-01-2024 take 1 capsule by mouth every eight hours Tizanidine 4 mg capsule Discontinued 4 mg PO Q8H November 10, 2023 1:00am April 01, 2024 9:09pm muscle spasticity Start: 05-12-2023 End: 10-24-2023 take 1 capsule [...] 20, 2022 12:00am October 24, 2023 12:07pm nerve pain Start: 01-20-2022 End: 10-24-2023 take 50 mg by mouth twice daily Topiramate Discontinue d 50 MG PO TWICE A DAY January 20, 2022 12:00am October 24, 2023 12:07pm Start: 09-03-2021 End: 04-01-2024 take 1 tablet by mouth twice daily Topiramate (Topamax) 50 mg tablet Discontinued 50 mg PO TWICE A DAY April 01, 2024 12:00am April 01, 2024 9:09pm 24 hr trospium chloride 60 mg extended release oral capsule (5 sources) Cholinergic Muscarinic Antagonist Start: 10-06-2017 take 1 capsule by mouth once daily Trospium (SANCTURA SR) 60 mg cp24 Take 1 capsule by mouth once daily. 30 capsule 11 10/06/2017 Active Comment on above: Take 1 capsule by [facility] once daily. valsartan 320 mg oral tablet (20 sources) Angiotensin 2 Receptor Tawana Start: 09-06-2017 End: 11-03-2017 take 1 tablet by mouth once daily Valsartan 320 MG tablet Discontinued 320 mg PO DAILY September 06, 2017 7:53pm November 03, 2017 5:08pm Blood pressure Start: 09-05-2017 End: 09-06-2017 take 1 tablet by mouth twice daily Valsartan 160 MG tablet Discontinued 160 mg PO TWICE A DAY September 05, 2017 1:00am September 06, 2017 3:54pm BLOOD PRESSURE vancomycin 125 mg oral capsule (20 sources) Glycopeptide Antibacterial Start: 01-08-2015 End: 01-30-2015 [...] 10:08am Start: 08-14-2023 take 1 tablet by [facility] once daily Vibegron (Gemtesa) 75 mg tablet Active 75 MG PO DAILY August 14, 2023 1:00am Start: 08-14-2023 take 1 tablet by adrián th once daily Vibegron (Gemtesa) 75 mg tablet Active 75 MG PO DAILY August 14, 2023 12:00am Start: 08-14-2023 Start: 04-20-2023 End: 05-17-2023 take 1 tablet by mouth once daily Start: 04-20-2023 End: 05-17-2023 take 1 tablet [...] qDay, # 90 cap(s), 3 Refill(s), Pharmacy: [facility]/pharmacy #[id number], Afib Anticoagulant long-term use, [...] qDay, # 30 tab(s), 5 Refill(s), Pharmacy: [facility]/pharmacy #[id number], 157, cm, 01/22/22 15:31:00 EDT, Height Start Date: 01/22/22 Status: Ordered Start: 09-16-2021 warfarin 2.5 m g oral tablet Dose : 2.5 mg = 1 tab(s), Oral, qDay, # 90 tab(s), 1 Refill(s), Pharmacy: [facility]/pharmacy #[id number], 157.6, cm, 09/03/21 11:20:00 EST, Height, kg, 09/03/21 11:20:00 EST, Dosing Weight Start Date: 09/16/21 Status: Ordered Start: 07-29-2021 warfarin 3 mg oral tablet See Instructions, 1 tab(s) Oral Mon, Tue, Tue, # 15 tab(s), 3 Refill(s), Pharmacy: [facility]/pharmacy #[id number], 157, cm, 07/22/21 15:01:00 EDT, Height, kg, 07/22/21 15:01:00 EDT, Dosing Weight Start Date: 07/29/21 Status: Ordered Start: 10-18-2017 take 3 mg by mouth once daily warfarin (COUMADIN) 2.5 mg tablet Take 3 mg by mouth once daily. 0 10/18/2017 Active Start: 07-27-2017 End: 11-03-2017 take 1 tablet by mouth once daily Warfarin 2 MG tablet Discontinued 2 mg PO DAILY@1700 September 03, 2017 3:12pm November 03, 2017 5:08pm blood thinner Start: 07-27-2017 End: 05-19-2022 take 2.5 mg by mouth once daily Warfarin 2 MG tablet Discontinued 2.5 mg PO DAILY@1699November 03, 2017 5:01pm May 19, 2022 10:40am blood thinner Start: 07-27-2017 End: 05-19-2022 take 2.5 mg by mouth once daily Warfarin Discontinued 2.5 MG PO DAILY@1699November 03, 2017 5:01pm May 19, 2022 10:40am Start: 06-29-2017 End: 07-27-2017 take 1 tablet by mouth once daily Warfarin (Jantoven) 1 MG tablet Discontinued 1 mg PO DAILY@1700 30 0 June 29, 2017 12:00am July 27, 2017 9:27pm Start: 06-29-2017 End: 07-27-2017 take 1 tablet by mouth once daily Warfarin (Jantoven) 2.5 MG tablet Discontinued 2.5 mg PO DAILY@1700 30 0 June 29, 2017 12:00am July 27, 2017 [...] let Discontinued 2 mg PO SuWeFr@1700 0 0 January 30, 2015 12:00am January 31, 2015 10:01am Start: 01-08-2015 End: 06-29-2017 Warfarin (Jantoven) 3 MG tab let Discontinued 3 mg PO SUTUTHFRSA@1699June 08, 2017 3:38pm June 29, 2017 8:44pm [...] tablet Discontinued 10 mg PO AT BEDTIME 0 November 03, 2017 1:00am May 22, 2020 2:50pm Problems Active Problems Problem Classification Problem Date Documented Da te Episodic/Chronic Abdominal pain (20 sources) Abdominal pain; Translations: [Generalized abdominal pain] 08-31-2023 Episodic Anxiety disorders (20 sources) Anxiety; Translations: [Anxiety disorder, unspecified] 01-27-2021 Chronic Biliary tract disease (20 sources) Acute cholangitis ; Translations: [Other cholangitis] 05-17-2023 Chronic Biliary tract disease (20 sources) Common bile duct calculus; Translations: [Calculus of bile duct without cholangitis or cholecystitis without obstruction] 05-17-2023 Episodic Cardiac dysrhythmias (20 sources) Atrial fibrillation; Translations: [Paroxysmal atrial fibrillation] Onset: 5 04-30-2020 Chronic Cardiac dysrhythmias (20 sources) Bradycardia; Translations: [Bradycardia, unspecified] Onset: 5 09-22-2017 Episodic Complications of surgical procedures or medical care (20 sources) Wound dehiscence; Translations: [Disruption of external operation (surgical) wound, not elsewhere classified, initial encounter] 09-23-2017 Episodic Conditions associated with dizziness or vertigo (11 sources) Dizziness; Translations: [Dizziness and giddiness] Onset: 5 11-28-2019 Episodic Congestive heart failure; nonhypertensive (18 sources) Congestive heart failure; Translations: [Heart failure, unspecified] Onset: 5 12-14-2023 Chronic Coronary atherosclerosis and other heart disease (20 sources) Coronary atherosclerosis; Translations: [Atherosclerotic heart disease of [place] coronary artery without angina pectoris] Onset: 5 12-29-2018 Chronic Comment on above: JAY to LAD, SVG to OM2 and sequetially to diagonal, SVG to PDA 06/01/17 Deficiency and other anemia (1 source) Anemia, unspecified; Translations: [Anemia, unspecified] Onset: 5 Episodic Diabetes mellitus with complications (1 source) Type 2 diabetes mellitus with hyperglycemia; Translations: [Type 2 diabetes mellitus with hyperglycemia] Onset: 5 Chronic Diabetes mellitus without complication (20 sources) Type 2 diabetes mellitus; Translations: [Diabetes mellitus] Onset: 4 10-07-2020 Chronic Disorders of lipid metabolism (20 sources) Hypercholesterolemia; Translations: [Hyperlipidemia] Onset: 5 08-29-2019 Chronic Diverticulosis and diverticulitis (10 sources) Diverticulitis 11-21-2014 Chronic E Codes: Fall (20 sources) Fall; Translations: [Unspecified fall, initial encounter] 09-23-2017 Episodic E Codes: Fall (10 sources) Fall 08-16-2017 Esophageal disorders (20 sources) Gastroesophageal reflux disease; Translations: [Gastro-esophageal reflux disease without esophagitis] Onset: 3 04-09-2020 Chronic Essential hypertension (20 sources) Hypertensive disorder; Translations: [Essential hypertension] Onset: 3 04-09-2020 Chronic Gastritis and duodenitis (13 sources) Gastritis; Translations: [Gastritis, unspecified, without bleeding] 04-27-2024 Episodic Genitourinary symptoms and ill-defined conditions (20 sources) Urge incontinence of urine; Translations: [Urge incontinence] Onset: 7 Chronic Comment on above: has bladder stimulat or Genitourinary symptoms and ill-defined conditions (9 sources) Nocturia; Translations: [Nocturia] Episodic Headache; including migraine (10 sources) Headache 09-02-2017 Episodic Intestinal obstruction without hernia (13 sources) Fecal impaction; Translations: [Fecal impaction] 04-16-2024 Episodic Malaise and fatigue (20 sources) Asthenia; Translations: [Fatigue] Onset: 4 07-11-2017 Episodic Mood disorders (20 sources) Depressive disorder; Translations: [Depression] 09-28-2019 Chronic Nausea and vomiting (4 sources) Nausea; Translations: [Vomiting] 08-31-2023 Episodic Noninfectious gastroenteritis (20 sources) Gastroenteritis; Translations: [Noninfective gastroenteritis and colitis, unspecified] 08-14-2023 Episodic Nonspecific chest pain (20 sources) Chest pain; Translations: [Chest pain, unspecified] Onset: 4 05-28-2017 Episodic Osteoarthritis (10 sources) Arthritis 11-21-2014 Chronic Other aftercare (20 sources) Long-term current use of anticoagulant; Translations: [long-term (current) use of anticoagulants] 04-30-2020 Episodic Other aftercare (20 sources) Immunosuppression; Translations: [Immunosuppression due to drug therapy] 05-13-2023 Episodic Other aftercare (3 sources) Patient encounter status; Translations: [Encounter for therapeutic drug level monitoring] 12-14-2023 Episodic Other aftercare (13 sources) Long-term current use of diuretic; Translations: [Encounter for therapeutic drug level monitoring] 12-14-2023 Episodic Other aftercare (1 source) long-term (current) use of insulin; 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: [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] Onset: 5 Episodic Other circulatory disease (20 sources) Low blood pressure; Translations: [Hypotension, unspecified] 05-13-2023 Episodic Other circulatory disease (4 sources) Hypotension, unspecified; Translations: [Hypotension, unspecified] 05-17-2023 Episodic Other connective tissue disease (20 sources) Spasm; Translations: [Other muscle spasm] 05-17-2023 [...] of gastrin] Onset: 5 Chronic Other fractures (17 sources) Compression fracture of lumbar spine; Translations: [Wedge compression fracture of fourth lumbar vertebra, initial encounter for closed fracture] 11-20-2023 Episodic Other gastrointestinal disorders (10 sources) Constipation 11-21-2014 Episodic Other gastrointestinal disorders (10 sources) Diarrhea 12-29-2014 Episodic Other gastrointestinal disorders (1 source) Therapeutic opioid induced constipation 05-08-2024 Episodic Other gastrointestinal disorders (13 sources) Encopresis ; Translations: [Full incontinence of feces] 04-16-2024 Episodic Other gastrointestinal disorders (13 sources) Acute constipation; Translations: [Constipation, unspecified] 04-16-2024 Episodic Other gastrointestinal disorders (1 source) Diarrhea, unspecified; Translations: [Diarrhea, unspecified] Onset: Episodic Other hereditary and degenerative nervous system conditions (20 sources) Restless legs; Translations: [Restless legs syndrome] 05-17-2023 Chronic Other hereditary and degenerative nervous system conditions (4 sources) Restless legs syndrome; Translations: [Restless legs syndrome (RLS)] Onset: 5 06-10-2023 Chronic Other inflammatory condition of skin (20 sources) Psoriasis; Translations: [Psoriasis, unspecified] Onset: 3 05-08-2019 Chronic Other inflammatory condition of skin (1 source) Pruritus, unspecified; Translations: [Pruritus, unspecified] Onset: Episodic Other injuries and conditions due to external causes (1 source) Infected hematoma 12-01-2023 Episodic Other liver diseases (20 sources) Enzyme level - finding; Translations: [Elevated transaminase measurement] 05-13-2023 Episodic Other liver diseases (20 sources) Jaundice; Translations: [Unspecified jaundice] 05-13-2023 Episodic Other liver diseases (7 sources) Unspecified jaundice; Translations: [Jaundice, unspecified, not of ] 05-17-2023 Episodic Other lower respiratory disease (20 sources) Restrictive lung disease; Translations: [Other disorders of lung] 01-09-2018 Episodic Other lower respiratory disease (3 sources) Other disorders of lung; Translations: [Other diseases of lung, not elsewhere classified] 06-10-2023 Episodic Other lower respiratory disease (18 sources) Dyspnea; Translations: [Shortness of breath] 10-24-2023 Episodic Other lower respiratory disease (7 sources) Shortness of breath; Translations: [Shortness of breath] Onset: 5 10-24-2023 Episodic Other nervous system disorders (20 sources) Disorder of brain; Translations: [Encephalopathy, unspecified] 05-13-2023 Chronic Other nervous system disorders (7 sources) Encephalopathy, unspecified; Translations: [Encephalopathy, unspecified] 05-17-2023 Chronic Other nervous system disorders (12 sources) Chronic pain; Translations: [Other chronic pain] [...] mental disorders or infectious disease) (20 sources) CT of chest abnormal; Translations: [Abnormal findings on diagnostic imaging of other specified body structures] 05-12-2023 Chronic Other screening for suspected conditions (not mental disorders or infectious disease) (20 sources) INR raised; Translations: [Cardiovascular stress test abnormal] Onset: 5 12-17-2022 Episodic Other upper respiratory disease (20 sources) Allergic rhinitis; Translations: [Allergic rhinitis, unspecified] 05-17-2023 Chronic Other upper respiratory disease (3 sources) Allergic rhinitis, unspecified; Translations: [Allergic rhinitis, cause unspecified] 06-10-2023 Chronic Other upper respiratory disease (10 sources) Bleeding from nose 09-17-2021 Episodic Other upper respiratory infections (5 sources) Sinusitis 08-25-2022 Chronic Otitis media and related conditions (8 sources) Otitis media; Translations: [Otitis media of right ear] 08-25-2022 Episodic Residual codes; unclassified (10 sources) Sleep apnea 05-08-2019 Chronic Comment on above: non compliant CPAP Residual codes; unclassified (20 sources) Obstructive sleep apnea syndrome; Translations: [Obstructive sleep apnea (adult) (pediatric)] 09-22-2017 Chronic Residual codes; unclassified (20 sources) Insomnia; Translations: [Insomnia, unspecified] 09-28-2019 Episodic Residual codes; unclassified (20 sources) Delirium; Translations: [Disorientation, unspecified] 05-12-2023 Episodic Residual codes; unclassified (15 sources) Edema of lower extremity; Translations: [Localized edema] 12-28-2023 Episodic Residual codes; unclassified (12 sources) Acute pain; Translations: [Pain, unspecified] 01-09-2025 Episodic Skin and subcutaneous tissue infections (6 sources) Cellulitis of upper limb; Translations: [Cellulitis of leg, excluding foot] 12-17-2022 Episodic Spondylosis; intervertebral disc disorders; other back problems (11 sources) Chronic low back pain; Translations: [Low back pain] 08-15-2020 Episodic Substance-related disorders (10 sources) Continuous opioid dependence; Translations: [Opioid dependence, uncomplicated] Onset: 2 07-24-2012 Chronic Substance-related disorders (20 sources) Benzodiazepine withdrawal; Translations: [Sedative, hypnotic or anxiolytic use, unspecified with withdrawal, unspecified] 05-12-2023 Episodic Superficial injury; contusion (17 sources) Hematoma of lower limb; Translations: [Contusion [...] Translations: [Low back pain, unspecified] Onset: 4 Unclassified (1 source) Cough, unspecified; Translations: [Cough, unspecified] Onset: 5 Urinary tract infections (20 sources) Urinary tract infectious disease; Translations: [Urinary tract infection, site not specified] Onset: 3 11-21-2014 Episodic Past or Other Problems Problem Classification Problem Date Documented Da te Episodic/Chronic Coronary atherosclerosis and other heart disease (1 source) Presence of aortocoronary bypass graft; Translations: [Aortocoronary bypass status] Onset: 05-03-2017 05-17-2023 Episodic Fever of unknown origin (20 sources) Fever; Translations: [Fever, unspecified] Onset: 03-20-2025 05-14-2023 Episodic Fluid and electrolyte disorders (1 source) Hypokalemia; Translations: [Hypokalemia] Onset: 09-27-2024 Episodic Other aftercare (2 sources) long-term (current) use of anticoagulants; Translations: [Long-term (current) use of anticoagulants] Onset: 03-20-2025 05-17-2023 Episodic Other upper respiratory disease (1 source) Nasal congestion; Translations: [Nasal congestion] Onset: 09-27-2024 Episodic Pulmonary heart disease (20 sources) H/O: pulmonary embolus; Translations: [Pulmonary embolism] Onset: 02-05-2013 08-15-2020 Episodic Unclassified (1 source) Low back pain, unspecified; Translations: [Low back pain, unspecified] Onset: 05-23-2024 Results Test Name Value Interpretation Reference Range Facility Echo Complete W/ Contraston 08-01-2025 Echo Complete W/ Contrast [facility] [address] [place] [address] Echo Complete W/ Contrast 08/01/25 1048 MR#: [id number] Acct: [id number] Name: LUIZA GALO Rep #: [id number] : 1940 84 From: Odalys Walls MD Attending Dr: Dr. Odalys Walls MD Status: REG I Ordering Dr: Odalys Walls MD Date: 08/01/25 Location: CVS Sex: F C Admitted: Reason For Study Reason For Study: SOB Procedure This was a 2D Doppler, Color Flow transthoracic echocardiogram. The study was technically difficult. SUBOPTIMAL IMAGING WINDOWS. The study was technically limited. Contrast injection was performed. Exam performed in department. Left Ventricle Normal size and thickness. The left ventricular ejection fraction is 65 %. Diastolic function is indeterminate. Right Ventricle Normal right ventricle. Atria The left atrium is moderately enlarged. Normal right atrium. Mitral Valve Trivial mitral valve insufficiency. Tricuspid Valve Trivial tricuspid valve insufficiency. Normal pulmonary artery pressure. Aortic Valve Mildly calcified aortic valve. Aortic valve sclerosis without stenosis. Pulmonic Valve The pulmonic valve is not well visualized. Great Vessels Normal sized aortic root. Pericardium/Pleural No pericardial effusion. Medication Diluted definity 2.0ml given slow IV push to enhance endocardial definition. MMode/2D Measurements Calculations LVIDd: 4.2 cm IVSd: 1.00 cm LVOT diam: 2.0 cm LVIDs: 2.8 cm LVPWd: 0.89 cm RVDd: 3.6 cm FS: 33.4 % LVOT area: 3.0 cm2 Ao root diam: 2.6 cm LAV(MOD-bp): 92.0 ml LA A4 area: 28.3 cm2 LAV(MOD-bp) Indexed: 49.9 ml/m2 LAV(MOD-sp2): 80.8 ml LAV(MOD-sp4): 104.6 ml LA dimension(2D): 4.6 cm TAPSE: 1.5 cm Time Measurements MV dec time: 0.26 sec Doppler Measurements Calculations MV E max tay: 79.1 cm/sec Lat Peak E' Tay: 9.4 cm/sec Med Peak E' Tay: 4.2 cm/sec MV A max tay: 89.4 cm/sec E/E' lat: 8.4 E/E' med: 18.9 MV E/A: 0.89 MV V2 max: 91.9 cm/sec MV P1/2t max tay: 90.6 cm/sec Ao V2 max: 156.3 cm/sec MV max P.4 mmHg MV P1/2t: 77.4 msec Ao max P.8 mmHg MV V2 mean: 42.7 cm/sec MV dec slope: 342.8 cm/sec2 Ao V2 mean: 101.8 cm/sec MV mean P.94 mmHg MVA(P1/2t): 2.8 cm2 Ao mean P.9 mmHg MV V2 VTI: 33.8 cm Ao V2 VTI: 38.3 cm MVA(VTI): 2.4 cm2 AV (velocity ratio): 0.70 KWABENA(I,D): 2.1 cm2 KWABENA(V,D): 2.0 cm2 LV V1 max: 101.1 cm/sec SV(LVOT): 80.9 ml PA V2 max: 94.9 cm/sec LV V1 max P.1 mmHg LV V1 mean P.3 mmHg LV V1 mean: 71.8 cm/sec LV V1 VTI: 26.6 cm TR max tay: 211.8 cm/sec PI dec slope: 88.1 cm/sec2 TR max P.0 mmHg ECHO/Echo Complete W/ Contrast Interpretation Summary The study was technically difficult with suboptimal images. The left ventricular ejection fraction is 65 %. Diastolic function is indeterminate. The left atrium is moderately enlarged. Mildly calcified aortic valve. Aortic valve sclerosis without stenosis. Ordering Physician: Odalys Walls Referring Physician: Jing Jones Performed By: Casi Barnett RDCS, RVT 08/01/25 1200 Date Odalys Walls MD CC: ZAID Jones; Dr. Odalys Walls MD Date Dictated: 08/01/25 1048 Date Transcribed: 08/01/25 1200 Customer Care Assistant: Signed Normal [facility] Stress Reporton 08-01-2025 Stress Report [facility] [address] [place] [address] MR#: [id number] Acct: [id number] Name: LUIZA GALO Rep #: [id number] : 1940 84 From: Odalys Walls MD Primary Care: ZAID Stevens Status: REG CLI Referring Dr: Odalys Walls MD Sex: F C Stress Test Report Date: 08/01/2025 Procedure: Pharmacologic stress nuclear imaging study Indications: Paroxysmal atrial fibrillation Consent: Per the patient Procedure: The patient underwent pharmacologic (Regadenoson 0.4mg ) evaluation with a peak heart rate of 81 beats per minute (58%predicted maximal heart rate) and a peak blood pressure of 126/62 mmHg. The baseline ECG demonstrated sinus rhythm. The peak pharmacologic ECG did not show any ischemic changes. There were no cardiac dysrhythmias pretest, during pharmacologic infusion, or recovery. There was no complaint of chest discomfort during pharmacologic infusion or recovery. The patient was injected with 9.7 millicuries of technetium 99m Cardiolite and subsequently rest SPECT Cardiolite nuclear imaging was obtained in the horizontal long, vertical long, and short axis views. The patient underwent pharmacologic (Regadenoson) evaluation. The patient was injected with 31.7 millicuries of technetium 99m Cardiolite and subsequently stress SPECT Cardiolite nuclear imaging was obtained in the horizontal long, vertical long, and short axis views. A gated Cardiolite study at peak stress was obtained. The examination was stopped secondary to completion of protocol. Rest and stress SPECT Cardiolite nuclear imaging status post realignment, normalization, and attenuation correction demonstrate no fixed or reversible perfusion defects. There is end systolic thickening and brightening. The gated Cardiolite study demonstrates myocardial thickening and inward wall motion. The reported LVEF is 74%. Impression: 1. Pharmacologic (Regadenoson) evaluation 2. Peak pharmacologic ECG with no ischemic changes. 3. There were no cardiac dysrhythmias pretest, during pharmacologic infusion, or recovery. 5. Rest and stress SPECT Cardiolite nuclear imaging demonstrate relative uniform tracer uptake and myocardial perfusion appearing within normal limits. 6. The gated Cardiolite study reports an LVEF of 74%. This note was generated with [employer] dictation software. It may contain incorrect words, spelling, and punctuation that were not noted in checking the note before signing. 08/01/25953 Date Odalys Walls MD CC: GOLD WHEEL BLOCKER AND POLISHERAide Jones; Dr. Odalys Walls MD Date Dictated: 08/01/25952 Date Transcribed: 08/01/25952 Customer Care Assistant: MONIQUE Signed Normal [facility] Cardiology Visit Reporton Cardiology Visit Report [facility] [address] [place] [address] OFFICE VISIT Date of Service: 07/02/25 MR#: [id number] Acct: [id number] Name: LUIZA GALO Rep #: [id number] : 1940 Provider: Dr. Odalys Walls MD Age/Sex: 84/F Location[place] [facility] Status: Signed HPI HPI History of Present Illness Details: This pleasant lady is a senior care resident. She has past medical history significant for coronary artery disease status post CABG in 2017, hypertension, paroxysmal atrial fibrillation, dyslipidemia and diabetes mellitus. She is here for follow-up visit. Denies any shortness of breath either at rest or with exertion. No orthopnea or PND. Denies any ankle edema. According to her, she has occasional chest discomfort but is not very specific about it. Not sure about the frequency, precipitating or relieving factors or the quality of the discomfort. Per her, it is infrequent. Patient has been tolerating her apixaban well. Denies any abnormal bleeding. Intake Vital Signs 07/19/24 10:28 07/02/25 09:06 Height 5 ft 5 ft Weight: 194 lb BMI 37.8 BP 160/60 H Blood Pressure Location Lt brachial Position Sitting Respiration 18 Pulse 48 L Pulse Source Monitor Intake Visit Reasons: 3 M FU Chute Greaser Required: No Accompanied by: Daughter Is patient in pain?: No Allergies sitagliptin (From Januvia) Allergy (Unknown, Verified 07/02/25 09:04) unknown Anesthetics - Amide Type - Select A Allergy (Verified 07/02/25 09:04) NEEDS FOLLOW-UP Anesthetics - Tyra Type- Parabens Allergy (Verified 07/02/25 09:04) NEEDS FOLLOW-UP latex Allergy (Verified 07/02/25 09:04) Unknown promethazine (From Phenergan) Allergy (Verified 07/02/25 09:04) PT UNSURE OF REACTION sitagliptin phosphate (From Januvia) Allergy (Verified 07/02/25 09:04) Unknown insulin isophane (NPH) Adverse Reaction (Severe, Verified 07/02/25 09:04) heart burn insulin degludec (From Xultophy 100/3.6) Adverse Reaction (Mild, Verified 07/02/25 09:04) Nausea liraglutide (From Xultophy 100/3.6) Adverse Reaction (Mild, Verified 07/02/25 09:04) Nausea atorvastatin (From Lipitor) Adverse Reaction (Unknown, Verified 07/02/25 09:04) Unknown codeine Adverse Reaction (Unknown, Verified 07/02/25 09:04) Unknown tizanidine Adverse Reaction (Unknown, Verified 07/02/25 09:04) Unknown Medications ???Medication ???Instructions ???Recorded ???Confirmed ???Type atorvastatin 40 mg tablet 40 mg PO QDAY cholesterol #30 tabs 03/02/18 07/02/25 Rx BP cuff #1 ea 01/20/22 04/02/24 Rx cholecalciferol (vitamin D3) 125 125 mcg PO DAILY vitamin 01/20/22 07/02/25 History mcg (5,000 unit) capsule acetaminophen 500 mg tablet 1,000 mg PO Q4H PRN pain 05/19/22 07/02/25 History (Tylenol Extra Strength) ropinirole 1 mg tablet 2 mg PO QHS pain 05/19/22 07/02/25 History trazodone 150 mg tablet 150 mg PO QHS sleep 10/24/2307/02 History insulin degludec 100 unit/mL 25 unit subcut DAILY diabetes 03/0507/02/25 History subcutaneous solution (Tresiba U-100 Insulin) metoprolol succinate 25 mg 12.5 mg PO DAILY blood pressure 07/02/25 History tablet,extended release 24 hr aspirin 81 mg tablet,delayed 81 mg PO BREAKFAST #0 tabs 4 07/02/25 Rx release Held on 01/10/25. Instructions: Home Medication placed on hold at Doctor's office losartan 25 mg tablet 25 mg PO DAILY #30 TABLETS 4 07/02/25 Rx levothyroxine 50 mcg tablet 50 mcg PO DAILY 04/19/24 07/02/25 History escitalopram oxalate 10 mg tablet 10 mg PO DAILY 07/17/24 07/02/25 History hydralazine 25 mg tablet 25 mg PO TID 07/17/24 07/02/25 His tory ropinirole 1 mg tablet 1 mg PO DAILY 07/17/24 07/02/25 Hi story apixaban 5 mg tablet (Eliquis) 2.5 mg (1/2 x 5 mg) PO BID blood 0 01/10/25 07/02/25 Rx thinner #180 tabs alprazolam 0.5 mg tablet 0.5 mg PO DIRECTED #60 tabs 07/02/25 Rx alprazolam 0.5 mg tablet 0.5 mg PO BID anxiety #60 tabs 07/02/25 Rx loperamide 2 mg capsule mg PO 07/02/25 07/02/25 History loratadine 10 mg tablet 10 mg PO QDAY 07/02/25 07/02/25 Hi story nitroglycerin 0.4 mg sublingual 0.4 mg sublingual Q5M PRN 07/02/25 07/02/25 History tablet potassium chloride 10 mEq 10 meq PO QDAY 07/02/25 07/02/25 H istory tablet,extended release (Klor-Con) tramadol 50 mg tablet 50 mg PO Q12H PRN pain 07/02/25 H istory Ejection fraction %: 65 Have you fallen in the past year?: Yes (lost balance) [facility] History of Clostridium difficile infection Post-menopausal Wears glasses Insulin dependent diabetes mellitus Walker as ambulation aid Psoriatic arthritis Arthritis High cholesterol Back pain (more content not included)... Normal [facility] TSH DL <= 0.005 mIU/L QnOrde red By: Laverne Lea on 04-29-2025 TSH Qn 2.590 uIU/mL 0.300-4.200 [facility] Absolute lymphocyte countOrd ered By: Laverne Lea on 04-15-2025 Lymphocytes Auto (Unsp spec) [#/Vol] 3.44 10*3/uL 0.83-4.51 [facility] Absolute neutrophil countOrd ered By: Laverne Lea on 04-15-2025 Neutrophils (Bld) [#/Vol] 2.4 10*3/uL 2.0-7.7 [facility] Anion gap in Serum or Plasma Ordered By: Laverne Lea on 04-15-2025 Anion gap [Moles/Vol] 10 mmol/L 5-15 [facility] Automated lymphocyte count a s percentage of total leukocytesOrdered By: Laverne Lea on 04-15-2025 Lymphocytes/100 WBC Auto (Unsp spec) 52.4 % High 19-41 [facility] BUN/creatinine ratioOrdered By: Laverne Moraleznetojp on 04-15-2025 Urea nitrogen/Creatinine [Mass ratio] 16.5 mg/mg 10-20 [facility] Basophil percentageOrdered B y: Antonettenaginate Moraleznetojp on 04-15-2025 Basophils/100 WBC (Bld) 0.8 % 0-1 [facility] Carbon dioxide, total [Moles /volume] in Central venous bloodOrdered By: Leonorabeverly Moraleznetojp on 04-15-2025 CO2 [Moles/Vol] 20.4 mmol/L Low 21.0-32.0 [facility] Chloride assayOrdered By: Leonora fatouernesto Lea on 04-15-2025 Chloride [Moles/Vol] 108 mmol/L 98-108 [facility] Eosinophil percentageOrdered By: Antonettenaginate Moraleznetojp on 04-15-2025 Eosinophils/100 WBC (Bld) 2.4 % 0-5 [facility] Erythrocyte distribution wid th ratioOrdered By: fatouernesto Kirtnetojp on 04-15-2025 Erythrocyte distribution width (RBC) [Ratio] 13.0 % 11.6-14.6 [facility] Erythrocyte distribution wid th standard deviationOrdered By: Leonorafatounorfolknate Moraleznetojp on 04-15-2025 Erythrocyte distribution width (RBC) [Ratio] 44.3 fl High 35.1-43.9 [facility] Glomerular filtration rate ( GFR) estimation/1.73 sq m using serum, plasma, or whole bOrdered By: Laverne Moraleznetojp on 04-15-2025 GFR/1.73 sq M.predicted among non-blacks MDRD (S/P/Bld) [Vol rate/Area] 70 mL/min/{1.73_m2} >60 [facility] Comment on above: mL/min/1.73m2 CKD-EP I Creatinine Equation (2020) Hematocrit Auto (Bld) [Volum e fraction]Ordered By: Laverne Lea on 04-15-2025 Hematocrit (Bld) [Volume fraction] 33.2 % Low 37-47 [facility] Hemoglobin measurementOrdere d By: Laverne Lea on 04-15-2025 Hemoglobin (Bld) [Mass/Vol] 11.0 g/dL Low 12.0-15.0 [facility] Immature granulocytes/100 WB C Auto (Bld)Ordered By: Laverne Lea on 04-15-2025 Immature granulocytes/100 WBC (Bld) 0.200 % 0.0-0.9 [facility] Comment on above: IG% - Immature Granu locytes (promyelocytes, myelocytes and metamyelocytes) > 1% indicates that a LEFT SHIFT is Present. MCV (mean corpuscular volume ) determinationOrdered By: Laverne Lea on 04-15-2025 MCV (RBC) [Entitic vol] 92.7 fL 81-99 [facility] Mean corpuscular hemoglobin (MCH) determinationOrdered By: Laverne Lea on 04-15-2025 MCH (RBC) [Entitic mass] 30.7 pg 27.0-32.0 [facility] Mean corpuscular hemoglobin concentration (MCHC) determinationOrdered By: Laverne Lea on 04-15-2025 MCHC (RBC) [Mass/Vol] 33.1 g/dL 32-36 [facility] Mean platelet volume determi nationOrdered By: Laverne Lea on 04-15-2025 Platelet mean volume (Bld) [Entitic vol] 10.2 fL 6.2-12.0 [facility] Monocyte percentageOrdered B y: Laverne Lea on 04-15-2025 Monocytes/100 WBC (Bld) 7.0 % 0-10 [facility] Neutrophil percentageOrdered By: Laverne Lea on 04-15-2025 Neutrophils/100 WBC (Bld) 37.2 % Low 47-70 [facility] Nucleated red blood cell per centageOrdered By: Laverne Lea on 04-15-2025 Nucleated RBC/100 WBC (Bld) [Ratio] 0 % 0-5 [facility] Platelet countOrdered By: Leonora Lea on 04-15-2025 Platelets (Bld) [#/Vol] 223 10*3/uL 150-450 [facility] Potassium measurement (mass/ volume)Ordered By: Laverne Lea on 04-15-2025 Potassium (Unsp spec) [Mass/Vol] 3.9 mmol/L 3.3-5.1 [facility] RBC Auto (Bld) [#/Vol]Ordere d By: Laverne Lea on 04-15-2025 RBC (Bld) [#/Vol] 3.58 10*6/uL Low 4.2-5.4 [facility] Serum creatinine measurement (mass/volume)Ordered By: Laverne Lea on 04-15-2025 Creatinine [Mass/Vol] 0.83 mg/dL 0.70-1.20 [facility] Serum glucose measurement (m ass/volume)Ordered By: Laverne Lea on 04-15-2025 Glucose [Mass/Vol] 166 mg/dL High 70-99 [facility] Serum or plasma calcium inga urement (mass/volume)Ordered By: Laverne Lea on 04-15-2025 Calcium [Mass/Vol] 9.2 mg/dL 7.6-11.0 [facility] Serum or plasma urea nitroge n measurement (mass/volume)Ordered By: Laverne Lea on 04-15-2025 Urea nitrogen [Mass/Vol] 14 mg/dL 4-19 [facility] Sodium levelOrdered By: Antonette carvalholashay Leonora on 04-15-2025 Sodium [Moles/Vol] 138 mmol/L 133-145 [facility] White blood cell (WBC) count Ordered By: Laverne Lea on 04-15-2025 WBC (Bld) [#/Vol] 6.6 10*3/uL 4.4-11.0 [facility] TSH DL <= 0.005 mIU/L QnOrde red By: Laverne Lea on 03-18-2025 TSH Qn 0.977 uIU/mL 0.300-4.200 [facility] Absolute lymphocyte countOrd ered By: Laverne Lea on 03-11-2025 Lymphocytes Auto (Unsp spec) [#/Vol] 3.97 10*3/uL 0.83-4.51 [facility] Absolute neutrophil countOrd ered By: Laverne Lea on 03-11-2025 Neutrophils (Bld) [#/Vol] 3.0 10*3/uL 2.0-7.7 [facility] Anion gap in Serum or Plasma Ordered By: Laverne Lea on 03-11-2025 Anion gap [Moles/Vol] 10 mmol/L 5-15 [facility] Automated lymphocyte count a s percentage of total leukocytesOrdered By: Laverne Lea on 03-11-2025 Lymphocytes/100 WBC Auto (Unsp spec) 51.5 % High 19-41 [facility] BUN/creatinine ratioOrdered By: Laverne Lea on 03-11-2025 Urea nitrogen/Creatinine [Mass ratio] 21.8 mg/mg High 10-20 [facility] Basophil percentageOrdered B y: Laverne Lea on 03-11-2025 Basophils/100 WBC (Bld) 0.5 % 0-1 [facility] Carbon dioxide, total [Moles /volume] in Central venous bloodOrdered By: Laverne Lea on 03-11-2025 CO2 [Moles/Vol] 21.9 mmol/L 21.0-32.0 [facility] Chloride assayOrdered By: Leonora Lea on 03-11-2025 Chloride [Moles/Vol] 107 mmol/L 98-108 [facility] Eosinophil percentageOrdered By: Laverne Lea on 03-11-2025 Eosinophils/100 WBC (Bld) 3.0 % 0-5 [facility] Erythrocyte distribution wid th ratioOrdered By: Laverne Lea on 03-11-2025 Erythrocyte distribution width (RBC) [Ratio] 12.5 % 11.6-14.6 [facility] Erythrocyte distribution wid th standard deviationOrdered By: Laverne Lea on 03-11-2025 Erythrocyte distribution width (RBC) [Ratio] 42.0 fl 35.1-43.9 [facility] Glomerular filtration rate ( GFR) estimation/1.73 sq m using serum, plasma, or whole bOrdered By: Laverne Lea on 03-11-2025 GFR/1.73 sq M.predicted among non-blacks MDRD (S/P/Bld) [Vol rate/Area] 56 mL/min/{1.73_m2} Low >60 [facility] Comment on above: mL/min/1.73m2 CKD-EP I Creatinine Equation (2020) Hematocrit Auto (Bld) [Volum e fraction]Ordered By: Laverne Lea on 03-11-2025 Hematocrit (Bld) [Volume fraction] 33.7 % Low 37-47 [facility] Hemoglobin measurementOrdere d By: Laverne Lea on 03-11-2025 Hemoglobin (Bld) [Mass/Vol] 10.9 g/dL Low 12.0-15.0 [facility] Immature granulocytes/100 WB C Auto (Bld)Ordered By: Laverne Lea on 03-11-2025 Immature granulocytes/100 WBC (Bld) 0.300 % 0.0-0.9 [facility] Comment on above: IG% - Immature Granu locytes (promyelocytes, myelocytes and metamyelocytes) > 1% indicates that a LEFT SHIFT is Present. MCV (mean corpuscular volume ) determinationOrdered By: Laverne Lea on 03-11-2025 MCV (RBC) [Entitic vol] 92.3 fL 81-99 [facility] Mean corpuscular hemoglobin (MCH) determinationOrdered By: Laverne Lea on 03-11-2025 MCH (RBC) [Entitic mass] 29.9 pg 27.0-32.0 [facility] Mean corpuscular hemoglobin concentration (MCHC) determinationOrdered By: Laverne Lea on 03-11-2025 MCHC (RBC) [Mass/Vol] 32.3 g/dL 32-36 [facility] Mean platelet volume determi nationOrdered By: Laverne Lea on 03-11-2025 Platelet mean volume (Bld) [Entitic vol] 9.7 fL 6.2-12.0 [facility] Monocyte percentageOrdered B y: Laverne Lea on 03-11-2025 Monocytes/100 WBC (Bld) 5.6 % 0-10 [facility] Neutrophil percentageOrdered By: Leonorafatouernesto Kirtnetojp on 03-11-2025 Neutrophils/100 WBC (Bld) 39.1 % Low 47-70 [facility] Nucleated red blood cell per centageOrdered By: Laverne Moraleznetojp on 03-11-2025 Nucleated RBC/100 WBC (Bld) [Ratio] 0 % 0-5 [facility] Platelet countOrdered By: Leonora katienate Lea on 03-11-2025 Platelets (Bld) [#/Vol] 294 10*3/uL 150-450 [facility] Potassium measurement (mass/ volume)Ordered By: Laverne Lea on 03-11-2025 Potassium (Unsp spec) [Mass/Vol] 4.0 mmol/L 3.3-5.1 [facility] RBC Auto (Bld) [#/Vol]Ordere d By: Antonettenaginate Lea on 03-11-2025 RBC (Bld) [#/Vol] 3.65 10*6/uL Low 4.2-5.4 [facility] Serum creatinine measurement (mass/volume)Ordered By: Laverne Lea on 03-11-2025 Creatinine [Mass/Vol] 1.00 mg/dL 0.70-1.20 [facility] Serum glucose measurement (m ass/volume)Ordered By: Laverne Lea on 03-11-2025 Glucose [Mass/Vol] 131 mg/dL High 70-99 [facility] Serum or plasma calcium inga urement (mass/volume)Ordered By: Laverne Lea on 03-11-2025 Calcium [Mass/Vol] 9.6 mg/dL 7.6-11.0 [facility] Serum or plasma urea nitroge n measurement (mass/volume)Ordered By: Laverne Lea on 03-11-2025 Urea nitrogen [Mass/Vol] 22 mg/dL High 4-19 [facility] Sodium levelOrdered By: Antonette ernesto Leonora on 03-11-2025 Sodium [Moles/Vol] 140 mmol/L 133-145 [facility] White blood cell (WBC) count Ordered By: Laverne Lea on 03-11-2025 WBC (Bld) [#/Vol] 7.7 10*3/uL 4.4-11.0 [facility] Absolute lymphocyte countOrd ered By: Laverne Lea on 03-06-2025 Lymphocytes Auto (Unsp spec) [#/Vol] 1.67 10*3/uL 0.83-4.51 [facility] Absolute neutrophil countOrd ered By: Laverne Lea on 03-06-2025 Neutrophils (Bld) [#/Vol] 4.4 10*3/uL 2.0-7.7 [facility] Anion gap in Serum or Plasma Ordered By: Laverne Lea on 03-06-2025 Anion gap [Moles/Vol] 11 mmol/L 5-15 [facility] Automated lymphocyte count a s percentage of total leukocytesOrdered By: Laverne Lea on 03-06-2025 Lymphocytes/100 WBC Auto (Unsp spec) 24.9 % 19-41 [facility] BUN/creatinine ratioOrdered By: fatounorfolknate Lea on 03-06-2025 Urea nitrogen/Creatinine [Mass ratio] 19.5 mg/mg 10-20 [facility] Basophil percentageOrdered B y: Laverne Lea on 03-06-2025 Basophils/100 WBC (Bld) 0.4 % 0-1 [facility] Carbon dioxide, total [Moles /volume] in Central venous bloodOrdered By: Laverne Lea on 03-06-2025 CO2 [Moles/Vol] 22.4 mmol/L 21.0-32.0 [facility] Chloride assayOrdered By: Leonora Lea on 03-06-2025 Chloride [Moles/Vol] 100 mmol/L 98-108 [facility] Eosinophil percentageOrdered By: Laverne Lea on 03-06-2025 Eosinophils/100 WBC (Bld) 0.4 % 0-5 [facility] Erythrocyte distribution wid th ratioOrdered By: Laverne Lea on 03-06-2025 Erythrocyte distribution width (RBC) [Ratio] 12.4 % 11.6-14.6 [facility] Erythrocyte distribution wid th standard deviationOrdered By: Laverne Lea on 03-06-2025 Erythrocyte distribution width (RBC) [Ratio] 41.1 fl 35.1-43.9 [facility] Glomerular filtration rate ( GFR) estimation/1.73 sq m using serum, plasma, or whole bOrdered By: Laverne Lea on 03-06-2025 GFR/1.73 sq M.predicted among non-blacks MDRD (S/P/Bld) [Vol rate/Area] 60 mL/min/{1.73_m2} >60 [facility] Comment on above: mL/min/1.73m2 CKD-EP I Creatinine Equation (2020) Hematocrit Auto (Bld) [Volum e fraction]Ordered By: Laverne Lea on 03-06-2025 Hematocrit (Bld) [Volume fraction] 33.8 % Low 37-47 [facility] Hemoglobin measurementOrdere d By: Laverne Lea on 03-06-2025 Hemoglobin (Bld) [Mass/Vol] 11.4 g/dL Low 12.0-15.0 [facility] Immature granulocytes/100 WB C Auto (Bld)Ordered By: Laverne Lea on 03-06-2025 Immature granulocytes/100 WBC (Bld) 0.300 % 0.0-0.9 [facility] Comment on above: IG% - Immature Granu locytes (promyelocytes, myelocytes and metamyelocytes) > 1% indicates that a LEFT SHIFT is Present. MCV (mean corpuscular volume ) determinationOrdered By: Laverne Lea on 03-06-2025 MCV (RBC) [Entitic vol] 90.1 fL 81-99 [facility] Mean corpuscular hemoglobin (MCH) determinationOrdered By: fatounorfolknate Lea 03-06-2025 MCH (RBC) [Entitic mass] 30.4 pg 27.0-32.0 [facility] Mean corpuscular hemoglobin concentration (MCHC) determinationOrdered By: fatounorfolknate Lea 03-06-2025 MCHC (RBC) [Mass/Vol] 33.7 g/dL 32-36 [facility] Mean platelet volume determi nationOrdered By: Laverne Lea on 03-06-2025 Platelet mean volume (Bld) [Entitic vol] 9.9 fL 6.2-12.0 [facility] Monocyte percentageOrdered B y: Laverne Lea on 03-06-2025 Monocytes/100 WBC (Bld) 8.9 % 0-10 [facility] Neutrophil percentageOrdered By: Laverne Lea on 03-06-2025 Neutrophils/100 WBC (Bld) 65.1 % 47-70 [facility] Nucleated red blood cell per centageOrdered By: Laverne Lea on 03-06-2025 Nucleated RBC/100 WBC (Bld) [Ratio] 0 % 0-5 [facility] Platelet countOrdered By: Leonora Lea on 03-06-2025 Platelets (Bld) [#/Vol] 196 10*3/uL 150-450 [facility] Potassium measurement (mass/ volume)Ordered By: Laverne Lea on 03-06-2025 Potassium (Unsp spec) [Mass/Vol] 4.2 mmol/L 3.3-5.1 [facility] RBC Auto (Bld) [#/Vol]Ordere d By: Laverne Lea on 03-06-2025 RBC (Bld) [#/Vol] 3.75 10*6/uL Low 4.2-5.4 [facility] Serum creatinine measurement (mass/volume)Ordered By: Laverne Lea on 03-06-2025 Creatinine [Mass/Vol] 0.95 mg/dL 0.70-1.20 [facility] Serum glucose measurement (m ass/volume)Ordered By: Laverne Lea on 03-06-2025 Glucose [Mass/Vol] 143 mg/dL High 70-99 [facility] Serum or plasma calcium inga urement (mass/volume)Ordered By: Laverne Lea on 03-06-2025 Calcium [Mass/Vol] 9.1 mg/dL 7.6-11.0 [facility] Serum or plasma urea nitroge n measurement (mass/volume)Ordered By: Laverne Lea on 03-06-2025 Urea nitrogen [Mass/Vol] 19 mg/dL 4-19 [facility] Sodium levelOrdered By: Antonette orozco Kirtnetojp on 03-06-2025 Sodium [Moles/Vol] 133 mmol/L 133-145 [facility] White blood cell (WBC) count Ordered By: Leonorabeverly Moraleznetojp on 03-06-2025 WBC (Bld) [#/Vol] 6.7 10*3/uL 4.4-11.0 [facility] Gram stainOrdered By: Garett Jones on 03-04-2025 Microscopic observation Gram stain Nom (Unsp spec) [facility] Absolute lymphocyte countOrd ered By: Antonettenaginate Moraleznetojp on 02-11-2025 Lymphocytes Auto (Unsp spec) [#/Vol] 3.25 10*3/uL 0.83-4.51 [facility] Absolute neutrophil countOrd ered By: Antonetteernesto Kirtnetojp on 02-11-2025 Neutrophils (Bld) [#/Vol] 3.2 10*3/uL 2.0-7.7 [facility] Anion gap in Serum or Plasma Ordered By: Laverne Lea on 02-11-2025 Anion gap [Moles/Vol] 11 mmol/L 5-15 [facility] Automated lymphocyte count a s percentage of total leukocytesOrdered By: Laverne Moraleznetojp on 02-11-2025 Lymphocytes/100 WBC Auto (Unsp spec) 45.2 % High 19-41 [facility] BUN/creatinine ratioOrdered By: Leonorabeverly Moraleznetojp on 02-11-2025 Urea nitrogen/Creatinine [Mass ratio] 20.8 mg/mg High 10-20 [facility] Basophil percentageOrdered B y: Leonorafatounaginate Moraleznetojp on 02-11-2025 Basophils/100 WBC (Bld) 0.7 % 0-1 [facility] Carbon dioxide, total [Moles /volume] in Central venous bloodOrdered By: Laverne Lea on 02-11-2025 CO2 [Moles/Vol] 23.4 mmol/L 21.0-32.0 [facility] Chloride assayOrdered By: Leonora Lea on 02-11-2025 Chloride [Moles/Vol] 106 mmol/L 98-108 [facility] Eosinophil percentageOrdered By: Laverne Lea on 02-11-2025 Eosinophils/100 WBC (Bld) 1.9 % 0-5 [facility] Erythrocyte distribution wid th ratioOrdered By: Laverne Lea on 02-11-2025 Erythrocyte distribution width (RBC) [Ratio] 12.4 % 11.6-14.6 [facility] Erythrocyte distribution wid th standard deviationOrdered By: beverly Lea on 02-11-2025 Erythrocyte distribution width (RBC) [Ratio] 42.6 fl 35.1-43.9 [facility] Glomerular filtration rate ( GFR) estimation/1.73 sq m using serum, plasma, or whole bOrdered By: Laverne Lea on 02-11-2025 GFR/1.73 sq M.predicted among non-blacks MDRD (S/P/Bld) [Vol rate/Area] 61 mL/min/{1.73_m2} >60 [facility] Comment on above: mL/min/1.73m2 CKD-EP I Creatinine Equation (2020) Hematocrit Auto (Bld) [Volum e fraction]Ordered By: Laverne Lea on 02-11-2025 Hematocrit (Bld) [Volume fraction] 33.6 % Low 37-47 [facility] Hemoglobin A1c percentageOrd ered By: Laverne Lea on 02-11-2025 HbA1c (Bld) [Mass fraction] 7.3 % High <5.7 [facility] Comment on above: Normal < 5.7 % Predi abetic 5.7 - 6.4 % Diabetic >or= 6.5 % Please note range changes. Hemoglobin measurementOrdere d By: Laverne Lea on 02-11-2025 Hemoglobin (Bld) [Mass/Vol] 11.0 g/dL Low 12.0-15.0 [facility] Immature granulocytes/100 WB C Auto (Bld)Ordered By: Laverne Lea on 02-11-2025 Immature granulocytes/100 WBC (Bld) 0.300 % 0.0-0.9 [facility] Comment on above: IG% - Immature Granu locytes (promyelocytes, myelocytes and metamyelocytes) > 1% indicates that a LEFT SHIFT is Present. MCV (mean corpuscular volume ) determinationOrdered By: Laverne Lea on 02-11-2025 MCV (RBC) [Entitic vol] 93.9 fL 81-99 [facility] Mean corpuscular hemoglobin (MCH) determinationOrdered By: Laverne Lea on 02-11-2025 MCH (RBC) [Entitic mass] 30.7 pg 27.0-32.0 [facility] Mean corpuscular hemoglobin concentration (MCHC) determinationOrdered By: Laverne Lea on 02-11-2025 MCHC (RBC) [Mass/Vol] 32.7 g/dL 32-36 [facility] Mean platelet volume determi nationOrdered By: Laverne Lea on 02-11-2025 Platelet mean volume (Bld) [Entitic vol] 10.1 fL 6.2-12.0 [facility] Monocyte percentageOrdered B y: Laverne Lea on 02-11-2025 Monocytes/100 WBC (Bld) 7.0 % 0-10 [facility] Neutrophil percentageOrdered By: Laverne Lea on 02-11-2025 Neutrophils/100 WBC (Bld) 44.9 % Low 47-70 [facility] Nucleated red blood cell per centageOrdered By: Laverne Lea on 02-11-2025 Nucleated RBC/100 WBC (Bld) [Ratio] 0 % 0-5 [facility] Platelet countOrdered By: Leonora Lea on 02-11-2025 Platelets (Bld) [#/Vol] 225 10*3/uL 150-450 [facility] Potassium measurement (mass/ volume)Ordered By: Laverne Lea on 02-11-2025 Potassium (Unsp spec) [Mass/Vol] 3.8 mmol/L 3.3-5.1 [facility] RBC Auto (Bld) [#/Vol]Ordere d By: Laverne Lea on 02-11-2025 RBC (Bld) [#/Vol] 3.58 10*6/uL Low 4.2-5.4 [facility] Serum creatinine measurement (mass/volume)Ordered By: Laverne Moraleznetojp on 02-11-2025 Creatinine [Mass/Vol] 0.93 mg/dL 0.70-1.20 [facility] Serum glucose measurement (m ass/volume)Ordered By: Laverne Lea on 02-11-2025 Glucose [Mass/Vol] 191 mg/dL High 70-99 [facility] Serum or plasma calcium inga urement (mass/volume)Ordered By: Laverne Moraleznetojp on 02-11-2025 Calcium [Mass/Vol] 9.4 mg/dL 7.6-11.0 [facility] Serum or plasma urea nitroge n measurement (mass/volume)Ordered By: Laverne Lea on 02-11-2025 Urea nitrogen [Mass/Vol] 19 mg/dL 4-19 [facility] Sodium levelOrdered By: Leonorafatou ernesto Leonora on 02-11-2025 Sodium [Moles/Vol] 140 mmol/L 133-145 [facility] White blood cell (WBC) count Ordered By: Laverne Moraleznetojp on 02-11-2025 WBC (Bld) [#/Vol] 7.2 10*3/uL 4.4-11.0 [facility] TSH DL <= 0.005 mIU/L QnOrde red By: Laverne Lea on 02-04-2025 TSH Qn 1.570 uIU/mL 0.300-4.200 [facility] Absolute lymphocyte countOrd ered By: Laverne Lea on 01-14-2025 Lymphocytes Auto (Unsp spec) [#/Vol] 3.03 10*3/uL 0.83-4.51 [facility] Absolute neutrophil countOrd ered By: Laverne Moraleznetojp on 01-14-2025 Neutrophils (Bld) [#/Vol] 3.7 10*3/uL 2.0-7.7 [facility] Anion gap in Serum or Plasma Ordered By: Laverne Lea on 01-14-2025 Anion gap [Moles/Vol] 11 mmol/L 5-15 [facility] Automated lymphocyte count a s percentage of total leukocytesOrdered By: Laverne Lea on 01-14-2025 Lymphocytes/100 WBC Auto (Unsp spec) 40.3 % 19-41 [facility] BUN/creatinine ratioOrdered By: Laverne Moraleznetojp on 01-14-2025 Urea nitrogen/Creatinine [Mass ratio] 20.4 mg/mg High 10-20 [facility] Basophil percentageOrdered B y: Antonettenaginate Moraleznetojp on 01-14-2025 Basophils/100 WBC (Bld) 0.4 % 0-1 [facility] Carbon dioxide, total [Moles /volume] in Central venous bloodOrdered By: Laverne Lea on 01-14-2025 CO2 [Moles/Vol] 23.1 mmol/L 21.0-32.0 [facility] Chloride assayOrdered By: Leonora fatouernesto Lea on 01-14-2025 Chloride [Moles/Vol] 104 mmol/L 98-108 [facility] Eosinophil percentageOrdered By: fatounorfolknate Moraleznetojp on 01-14-2025 Eosinophils/100 WBC (Bld) 1.3 % 0-5 [facility] Erythrocyte distribution wid th ratioOrdered By: Laverne Moraleznetojp on 01-14-2025 Erythrocyte distribution width (RBC) [Ratio] 12.0 % 11.6-14.6 [facility] Erythrocyte distribution wid th standard deviationOrdered By: Laverne Lea on 01-14-2025 Erythrocyte distribution width (RBC) [Ratio] 41.0 fl 35.1-43.9 [facility] Glomerular filtration rate ( GFR) estimation/1.73 sq m using serum, plasma, or whole bOrdered By: Laverne Lea on 01-14-2025 GFR/1.73 sq M.predicted among non-blacks MDRD (S/P/Bld) [Vol rate/Area] 66 mL/min/{1.73_m2} >60 [facility] Comment on above: mL/min/1.73m2 CKD-EP I Creatinine Equation (2020) Hematocrit Auto (Bld) [Volum e fraction]Ordered By: Laverne Lea on 01-14-2025 Hematocrit (Bld) [Volume fraction] 31.3 % Low 37-47 [facility] Hemoglobin measurementOrdere d By: Laverne Lea on 01-14-2025 Hemoglobin (Bld) [Mass/Vol] 10.5 g/dL Low 12.0-15.0 [facility] Immature granulocytes/100 WB C Auto (Bld)Ordered By: Laverne Lea on 01-14-2025 Immature granulocytes/100 WBC (Bld) 0.100 % 0.0-0.9 [facility] Comment on above: IG% - Immature Granu locytes (promyelocytes, myelocytes and metamyelocytes) > 1% indicates that a LEFT SHIFT is Present. MCV (mean corpuscular volume ) determinationOrdered By: Laverne Lea on 01-14-2025 MCV (RBC) [Entitic vol] 94.0 fL 81-99 [facility] Mean corpuscular hemoglobin (MCH) determinationOrdered By: fatounorfolknate Lea on 01-14-2025 MCH (RBC) [Entitic mass] 31.5 pg 27.0-32.0 [facility] Mean corpuscular hemoglobin concentration (MCHC) determinationOrdered By: fatounorfolknate Lea on 01-14-2025 MCHC (RBC) [Mass/Vol] 33.5 g/dL 32-36 [facility] Mean platelet volume determi nationOrdered By: fatounorfolknate Lea on 01-14-2025 Platelet mean volume (Bld) [Entitic vol] 10.3 fL 6.2-12.0 [facility] Monocyte percentageOrdered B y: Laverne Lea on 01-14-2025 Monocytes/100 WBC (Bld) 8.4 % 0-10 [facility] Neutrophil percentageOrdered By: [facility] on 01-14-2025 Neutrophils/100 WBC (Bld) 49.5 % 47-70 [facility] Nucleated red blood cell per centageOrdered By: fatounorfolknate Lea on 01-14-2025 Nucleated RBC/100 WBC (Bld) [Ratio] 0 % 0-5 [facility] Platelet countOrdered By: Leonora Lea on 01-14-2025 Platelets (Bld) [#/Vol] 219 10*3/uL 150-450 [facility] Potassium measurement (mass/ volume)Ordered By: Laverne Lea on 01-14-2025 Potassium (Unsp spec) [Mass/Vol] 4.2 mmol/L 3.3-5.1 [facility] RBC Auto (Bld) [#/Vol]Ordere d By: Laverne Lea on 01-14-2025 RBC (Bld) [#/Vol] 3.33 10*6/uL Low 4.2-5.4 [facility] Serum creatinine measurement (mass/volume)Ordered By: Laverne Lea on 01-14-2025 Creatinine [Mass/Vol] 0.88 mg/dL 0.70-1.20 [facility] Serum glucose measurement (m ass/volume)Ordered By: Laverne Kirtesvin on 01-14-2025 Glucose [Mass/Vol] 148 mg/dL High 70-99 [facility] Serum or plasma calcium inga urement (mass/volume)Ordered By: Laverne Lea on 01-14-2025 Calcium [Mass/Vol] 9.5 mg/dL 7.6-11.0 [facility] Serum or plasma urea nitroge n measurement (mass/volume)Ordered By: Laverne Kirtesvin 01-14-2025 Urea nitrogen [Mass/Vol] 18 mg/dL 4-19 [facility] Sodium levelOrdered By: Antonette Antoinejp on 01-14-2025 Sodium [Moles/Vol] 138 mmol/L 133-145 [facility] White blood cell (WBC) count Ordered By: Laverne Lea on 01-14-2025 WBC (Bld) [#/Vol] 7.5 10*3/uL 4.4-11.0 [facility] Absolute lymphocyte countOrd ered By: Laverne Lea on 01-10-2025 Lymphocytes Auto (Unsp spec) [#/Vol] 3.42 10*3/uL 0.83-4.51 [facility] Absolute neutrophil countOrd ered By: fatounorfolknate Lea on 01-10-2025 Neutrophils (Bld) [#/Vol] 2.7 10*3/uL 2.0-7.7 [facility] Automated lymphocyte count a s percentage of total leukocytesOrdered By: Vinhnate Moraleznetojp on 01-10-2025 Lymphocytes/100 WBC Auto (Unsp spec) 50.3 % High 19-41 [facility] Basophil percentageOrdered B y: Laverne Lea on 01-10-2025 Basophils/100 WBC (Bld) 0.6 % 0-1 [facility] Eosinophil percentageOrdered By: [facility] Kirtesvin on 01-10-2025 Eosinophils/100 WBC (Bld) 2.1 % 0-5 [facility] Erythrocyte distribution wid th ratioOrdered By: [facility] Kirtjp on 01-10-2025 Erythrocyte distribution width (RBC) [Ratio] 11.9 % 11.6-14.6 [facility] Erythrocyte distribution wid th standard deviationOrdered By: fatounorfolknate Lea on 01-10-2025 Erythrocyte distribution width (RBC) [Ratio] 40.2 fl 35.1-43.9 [facility] Hematocrit Auto (Bld) [Volum e fraction]Ordered By: Leonorafatounaginate Moraleznetojp on 01-10-2025 Hematocrit (Bld) [Volume fraction] 32.1 % Low 37-47 [facility] Hemoglobin measurementOrdere d By: Vinhnate Moraleznetojp on 01-10-2025 Hemoglobin (Bld) [Mass/Vol] 10.8 g/dL Low 12.0-15.0 [facility] Immature granulocytes/100 WB C Auto (Bld)Ordered By: [facility] Moraleznetoj[facility] on 01-10-2025 Immature granulocytes/100 WBC (Bld) 0.000 % 0.0-0.9 [facility] Comment on above: IG% - Immature Granu locytes (promyelocytes, myelocytes and metamyelocytes) > 1% indicates that a LEFT SHIFT is Present. MCV (mean corpuscular volume ) determinationOrdered By: Leonorabeverly Lea on 01-10-2025 MCV (RBC) [Entitic vol] 93.0 fL 81-99 [facility] Mean corpuscular hemoglobin (MCH) determinationOrdered By: Laverne Lea on 01-10-2025 MCH (RBC) [Entitic mass] 31.3 pg 27.0-32.0 [facility] Mean corpuscular hemoglobin concentration (MCHC) determinationOrdered By: Laverne Antoinee on 01-10-2025 MCHC (RBC) [Mass/Vol] 33.6 g/dL 32-36 [facility] Mean platelet volume determi nationOrdered By: Laverne Antoinee on 01-10-2025 Platelet mean volume (Bld) [Entitic vol] 10.1 fL 6.2-12.0 [facility] Monocyte percentageOrdered B y: Effatouongbe Elinae on 01-10-2025 Monocytes/100 WBC (Bld) 6.9 % 0-10 [facility] Neutrophil percentageOrdered By: Laverne Antoinee on 01-10-2025 Neutrophils/100 WBC (Bld) 40.1 % Low 47-70 [facility] Nucleated red blood cell per centageOrdered By: Antonetteongbe Elinae on 01-10-2025 Nucleated RBC/100 WBC (Bld) [Ratio] 0 % 0-5 [facility] Platelet countOrdered By: Ef fatouongbe Elinae on 01-10-2025 Platelets (Bld) [#/Vol] 223 10*3/uL 150-450 [facility] RBC Auto (Bld) [#/Vol]Ordere d By: Effatouongbe Elinae on 01-10-2025 RBC (Bld) [#/Vol] 3.45 10*6/uL Low 4.2-5.4 [facility] White blood cell (WBC) count Ordered By: Laverne Lea on 01-10-2025 WBC (Bld) [#/Vol] 6.8 10*3/uL 4.4-11.0 [facility] TSH DL <= 0.005 mIU/L QnOrde red By: Laverne Lea on 12-24-2024 Thyroid Stimulating Hormone (TSH) 2.070 uIU/mL 0.300-4.200 [facility] TSH Qn 2.070 uIU/mL 0.300-4.200 [facility] Absolute lymphocyte countOrd ered By: Laverne Lea on 12-10-2024 Lymphocytes Auto (Unsp spec) [#/Vol] 3.05 10*3/uL 0.83-4.51 [facility] Absolute neutrophil countOrd ered By: Laverne Lea on 12-10-2024 Neutrophils (Bld) [#/Vol] 2.7 10*3/uL 2.0-7.7 [facility] Anion gap in Serum or Plasma Ordered By: Laverne Lea on 12-10-2024 Anion gap [Moles/Vol] 11 mmol/L 5-15 [facility] Automated lymphocyte count a s percentage of total leukocytesOrdered By: Laverne Lea on 12-10-2024 Lymphocytes/100 WBC Auto (Unsp spec) 48.1 % High 19-41 [facility] BUN/creatinine ratioOrdered By: Laverne Lea on 12-10-2024 Urea nitrogen/Creatinine [Mass ratio] 21.8 mg/mg High 10-20 [facility] Basophil percentageOrdered B y: Laverne Lea on 12-10-2024 Basophils/100 WBC (Bld) 0.6 % 0-1 [facility] Carbon dioxide, total [Moles /volume] in Central venous bloodOrdered By: Laverne Lea on 12-10-2024 CO2 [Moles/Vol] 22.1 mmol/L 21.0-32.0 [facility] Chloride assayOrdered By: Leonora Lea on 12-10-2024 Chloride [Moles/Vol] 107 mmol/L 98-108 [facility] Eosinophil percentageOrdered By: beverly Lea on 12-10-2024 Eosinophils/100 WBC (Bld) 1.3 % 0-5 [facility] Erythrocyte distribution wid th (RBC) [Ratio]Ordered By: Laverne Lea on 12-10-2024 Erythrocyte distribution width (RBC) [Entitic vol] 39.8 fL 35.1-43.9 [facility] Erythrocyte distribution wid th ratioOrdered By: Laverne Lea on 12-10-2024 Erythrocyte distribution width (RBC) [Ratio] 11.8 % 11.6-14.6 [facility] Erythrocyte distribution wid th standard deviationOrdered By: Laverne Lea on 12-10-2024 Erythrocyte distribution width (RBC) [Ratio] 39.8 fl 35.1-43.9 [facility] GFR/1.73 sq M.predicted dwain g non-blacks MDRD (S/P/Bld) [Vol rate/Area]Ordered By: Laverne Lea on 12-10-2024 Estimated GFR (MDRD) Non-Af Amer 64 >60 [facility] Comment on above: mL/min/1.73m2 CKD-EP I Creatinine Equation (2020) Glomerular filtration rate ( GFR) estimation/1.73 sq m using serum, plasma, or whole bOrdered By: Laverne Lea on 12-10-2024 GFR/1.73 sq M.predicted among non-blacks MDRD (S/P/Bld) [Vol rate/Area] 64 mL/min/{1.73_m2} >60 [facility] Comment on above: mL/min/1.73m2 CKD-EP I Creatinine Equation (2020) Hematocrit Auto (Bld) [Volum e fraction]Ordered By: Laverne Lea on 12-10-2024 Hematocrit (Bld) [Volume fraction] 33.6 % Low 37-47 [facility] Hemoglobin measurementOrdere d By: Laverne Lea on 12-10-2024 Hemoglobin (Bld) [Mass/Vol] 11.4 g/dL Low 12.0-15.0 [facility] Immature granulocytes/100 WB C Auto (Bld)Ordered By: Laverne Lea on 12-10-2024 Immature granulocytes/100 WBC (Bld) 0.200 % 0.0-0.9 [facility] Comment on above: IG% - Immature Granu locytes (promyelocytes, myelocytes and metamyelocytes) > 1% indicates that a LEFT SHIFT is Present. Lymphocytes Auto (Unsp spec) [#/Vol]Ordered By: Laverne Lea on 12-10-2024 Lymphocytes (Bld) [#/Vol] 3.05 10*3/uL 0.83-4.51 [facility] Lymphocytes/100 WBC Auto (Un sp spec)Ordered By: Leonorafatounaginate Moraleznetojp on 12-10-2024 Lymphocytes/100 WBC (Bld) 48.1 % High 19-41 [facility] MCV (mean corpuscular volume ) determinationOrdered By: Laverne Moralezentojp on 12-10-2024 MCV (RBC) [Entitic vol] 92.6 fL 81-99 [facility] Mean corpuscular hemoglobin (MCH) determinationOrdered By: Laverne Lea on 12-10-2024 MCH (RBC) [Entitic mass] 31.4 pg 27.0-32.0 [facility] Mean corpuscular hemoglobin concentration (MCHC) determinationOrdered By: Laverne Lea on 12-10-2024 MCHC (RBC) [Mass/Vol] 33.9 g/dL 32-36 [facility] Mean platelet volume determi nationOrdered By: Antonettenaginate Moraleznetojp on 12-10-2024 Platelet mean volume (Bld) [Entitic vol] 9.7 fL 6.2-12.0 [facility] Monocyte percentageOrdered B y: Antonettenaginate Moraleznetojp on 12-10-2024 Monocytes/100 WBC (Bld) 7.1 % 0-10 [facility] Neutrophil percentageOrdered By: Laverne Lea on 12-10-2024 Neutrophils/100 WBC (Bld) 42.7 % Low 47-70 [facility] Nucleated red blood cell per centageOrdered By: Antonettenaginate Moraleznetojp on 12-10-2024 Nucleated RBC/100 WBC (Bld) [Ratio] 0 % 0-5 [facility] Platelet countOrdered By: Leonora fatouernesto Moraleznetojp on 12-10-2024 Platelets (Bld) [#/Vol] 220 10*3/uL 150-450 [facility] Potassium (Unsp spec) [Mass/ Vol]Ordered By: Laverne Moraleznetojp on 12-10-2024 Potassium [Moles/Vol] 4.1 mmol/L 3.3-5.1 [facility] Potassium measurement (mass/ volume)Ordered By: Laverne Lea on 12-10-2024 Potassium (Unsp spec) [Mass/Vol] 4.1 mmol/L 3.3-5.1 [facility] RBC Auto (Bld) [#/Vol]Ordere d By: Laverne Lea on 12-10-2024 RBC (Bld) [#/Vol] 3.63 10*6/uL Low 4.2-5.4 [facility] Serum creatinine measurement (mass/volume)Ordered By: Laverne Lea on 12-10-2024 Creatinine [Mass/Vol] 0.90 mg/dL 0.70-1.20 [facility] Serum glucose measurement (m ass/volume)Ordered By: Laverne Lea on 12-10-2024 Glucose [Mass/Vol] 86 mg/dL 70-99 [facility] Serum or plasma calcium inga urement (mass/volume)Ordered By: Laverne Lea on 12-10-2024 Calcium [Mass/Vol] 9.5 mg/dL 7.6-11.0 [facility] Serum or plasma urea nitroge n measurement (mass/volume)Ordered By: Laverne Lea on 12-10-2024 Urea nitrogen [Mass/Vol] 20 mg/dL High 4-19 [facility] Sodium levelOrdered By: Antonette carvalholashay Leonora on 12-10-2024 Sodium [Moles/Vol] 140 mmol/L 133-145 [facility] White blood cell (WBC) count Ordered By: Laverne Lea on 12-10-2024 WBC (Bld) [#/Vol] 6.3 10*3/uL 4.4-11.0 [facility] Absolute lymphocyte countOrd ered By: Laverne Lea on 11-12-2024 Lymphocytes Auto (Unsp spec) [#/Vol] 5.06 10*3/uL High 0.83-4.51 [facility] Absolute neutrophil countOrd ered By: Laverne Lea on 11-12-2024 Neutrophils (Bld) [#/Vol] 3.8 10*3/uL 2.0-7.7 [facility] Automated lymphocyte count a s percentage of total leukocytesOrdered By: Laverne Lea on 11-12-2024 Lymphocytes/100 WBC Auto (Unsp spec) 52.6 % High 19-41 [facility] Basophil percentageOrdered B y: Laverne Lea on 11-12-2024 Basophils/100 WBC (Bld) 0.5 % 0-1 [facility] Blood urea nitrogen (BUN)/cr eatinine ratioOrdered By: Laverne Lea on 11-12-2024 Urea nitrogen/Creatinine [Mass ratio] 15.0 mg/mg 10-20 [facility] Carbon dioxide measurementOr dered By: Laverne Lea on 11-12-2024 CO2 [Moles/Vol] 25.0 mmol/L 21.0-32.0 [facility] Chloride measurementOrdered By: Laverne Lea on 11-12-2024 Chloride [Moles/Vol] 108 mmol/L High 98-107 [facility] Eosinophil percentageOrdered By: Laverne Lea on 11-12-2024 Eosinophils/100 WBC (Bld) 1.4 % 0-5 [facility] Erythrocyte distribution wid th (RBC) [Ratio]Ordered By: Laverne Lea on 11-12-2024 Erythrocyte distribution width (RBC) [Entitic vol] 42.1 fL 35.1-43.9 [facility] Erythrocyte distribution wid th ratioOrdered By: Laverne Lea on 11-12-2024 Erythrocyte distribution width (RBC) [Ratio] 12.1 % 11.6-14.6 [facility] Erythrocyte distribution wid th standard deviationOrdered By: Laverne Lea on 11-12-2024 Erythrocyte distribution width (RBC) [Ratio] 42.1 fl 35.1-43.9 [facility] Estimated glomerular filtrat ion rate (GFR) AmericanOrdered By: Laverne Lea on 11-12-2024 Estimated GFR (MDRD) Amer 68 mL/min >60 [facility] Comment on above: GFR Calc Glomerular filtration rate ( GFR) estimationOrdered By: Laverne Lea on 11-12-2024 Estimated GFR (MDRD) Non-Af Amer 56 mL/min Low >60 [facility] Comment on above: Non- GFR Calc GFR/1.73 sq M.predicted among non-blacks MDRD (S/P/Bld) [Vol rate/Area] 56 mL/min/{1.73_m2} Low >60 [facility] Comment on above: Non- GFR Calc Glucose measurementOrdered B y: Laverne Lea on 11-12-2024 Glucose [Mass/Vol] 130 mg/dL High 74-106 [facility] Comment on above: Fasting Glucose resu lt greater than or equal to 126 mg/dL suggests DIABETES MELLITUS per A.D.A. criteria. Hematocrit Auto (Bld) [Volum e fraction]Ordered By: Laverne Lea on 11-12-2024 Hematocrit (Bld) [Volume fraction] 38.9 % 37-47 [facility] Hemoglobin A1c percentageOrd ered By: Laverne Lea on 11-12-2024 HbA1c (Bld) [Mass fraction] 7.2 % High 3.8-5.6 [facility] Comment on above: Normal < 5.7 % Predi abetic 5.7 - 6.4 % Diabetic >or= 6.5 % Please note range changes. Hemoglobin measurementOrdere d By: Laverne Lea on 11-12-2024 Hemoglobin (Bld) [Mass/Vol] 12.7 g/dL 12.0-15.0 [facility] Immature granulocytes/100 WB C Auto (Bld)Ordered By: Laverne Lea on 11-12-2024 Immature granulocytes/100 WBC (Bld) 0.200 % 0.0-0.9 [facility] Comment on above: IG% - Immature Granu locytes (promyelocytes, myelocytes and metamyelocytes) > 1% indicates that a LEFT SHIFT is Present. Lymphocytes Auto (Unsp spec) [#/Vol]Ordered By: Laverne Lea on 11-12-2024 Lymphocytes (Bld) [#/Vol] 5.06 10*3/uL High 0.83-4.51 [facility] Lymphocytes/100 WBC Auto (Un sp spec)Ordered By: Laverne Lea on 11-12-2024 Lymphocytes/100 WBC (Bld) 52.6 % High 19-41 [facility] MCV (mean corpuscular volume ) determinationOrdered By: Laverne Lea on 11-12-2024 MCV (RBC) [Entitic vol] 94.2 fL 81-99 [facility] Mean corpuscular hemoglobin (MCH) determinationOrdered By: Laverne Lea on 11-12-2024 MCH (RBC) [Entitic mass] 30.8 pg 27.0-32.0 [facility] Mean corpuscular hemoglobin concentration (MCHC) determinationOrdered By: Laverne Lea on 11-12-2024 MCHC (RBC) [Mass/Vol] 32.6 g/dL 32-36 [facility] Mean platelet volume determi nationOrdered By: Laverne Lea on 11-12-2024 Platelet mean volume (Bld) [Entitic vol] 9.7 fL 6.2-12.0 [facility] Monocyte percentageOrdered B y: Laverne Lea on 11-12-2024 Monocytes/100 WBC (Bld) 5.7 % 0-10 [facility] Neutrophil percentageOrdered By: Laverne Lea on 11-12-2024 Neutrophils/100 WBC (Bld) 39.6 % Low 47-70 [facility] Nucleated red blood cell per centageOrdered By: Laverne Lea on 11-12-2024 Nucleated RBC/100 WBC (Bld) [Ratio] 0 % 0-5 [facility] Platelet countOrdered By: Leonora Lea on 11-12-2024 Platelets (Bld) [#/Vol] 302 10*3/uL 150-450 [facility] Potassium measurementOrdered By: Laverne Lea on 11-12-2024 Potassium [Moles/Vol] 4.2 mmol/L 3.5-5.1 [facility] RBC Auto (Bld) [#/Vol]Ordere d By: Laverne Lea on 11-12-2024 RBC (Bld) [#/Vol] 4.13 10*6/uL Low 4.2-5.4 [facility] Reactive lymphocyte countOrd ered By: Laverne Lea on 11-12-2024 Reactive Lymphocytes 1+ [facility] Serum anion gap measurementO rdered By: Laverne Lea on 11-12-2024 Anion gap [Moles/Vol] 7 mmol/L 5-15 [facility] Serum or plasma calcium inga urement (mass/volume)Ordered By: Laverne Lea on 11-12-2024 Calcium [Mass/Vol] 9.7 mg/dL 8.5-10.1 [facility] Serum or plasma creatinine m easurement (mass/volume)Ordered By: Laverne Lea on 11-12-2024 Creatinine [Mass/Vol] 1.00 mg/dL 0.55-1.02 [facility] Comment on above: The validity of the calculated GFR & GFRAA in patients over 70 years has not been determined. Clinical correlation is essential. Serum or plasma thyroid stim ulating hormone (TSH) measurement (units/volume)Ordered By: Laverne Lea on 11-12-2024 TSH Qn 3.410 uIU/mL 0.358-3.740 [facility] Serum or plasma urea nitroge n measurement (mass/volume)Ordered By: Laverne Lea on 11-12-2024 Urea nitrogen [Mass/Vol] 15 mg/dL 7-18 [facility] Sodium levelOrdered By: Antonette Lea on 11-12-2024 Sodium [Moles/Vol] 140 mmol/L 136-145 [facility] TSH QnOrdered By: Laverne Lea on 11-12-2024 Thyroid Stimulating Hormone (TSH) 3.410 uIU/mL 0.358-3.740 [facility] White blood cell (WBC) count Ordered By: Laverne Lea on 11-12-2024 WBC (Bld) [#/Vol] 9.6 10*3/uL 4.4-11.0 [facility] Absolute neutrophil countOrd ered By: Laverne Lea on 10-15-2024 Neutrophils (Bld) [#/Vol] 2.4 10*3/uL 2.0-7.7 [facility] Basophil percentageOrdered B y: Leonorakatienate Moraleznetojp on 10-15-2024 Basophils/100 WBC (Bld) 0.6 % 0-1 [facility] Blood urea nitrogen (BUN)/cr eatinine ratioOrdered By: Laverne Lea on 10-15-2024 Urea nitrogen/Creatinine [Mass ratio] 15.0 mg/mg 10-20 [facility] Carbon dioxide measurementOr dered By: fatounorfolknate Lea on 10-15-2024 CO2 [Moles/Vol] 26.0 mmol/L 21.0-32.0 [facility] Chloride measurementOrdered By: Laverne Lea on 10-15-2024 Chloride [Moles/Vol] 109 mmol/L High 98-107 [facility] Eosinophil percentageOrdered By: Laverne Lea on 10-15-2024 Eosinophils/100 WBC (Bld) 1.9 % 0-5 [facility] Erythrocyte distribution wid th (RBC) [Ratio]Ordered By: fatounorfolknate Lea on 10-15-2024 Erythrocyte distribution width (RBC) [Entitic vol] 43.3 fL 35.1-43.9 [facility] Erythrocyte distribution wid th ratioOrdered By: fatounorfolknate Lea on 10-15-2024 Erythrocyte distribution width (RBC) [Ratio] 12.7 % 11.6-14.6 [facility] Estimated glomerular filtrat ion rate (GFR) AmericanOrdered By: Laverne Lea on 10-15-2024 Estimated GFR (MDRD) Amer 74 mL/min >60 [facility] Comment on above: GFR Calc Glomerular filtration rate ( GFR) estimationOrdered By: Laverne Lea on 10-15-2024 Estimated GFR (MDRD) Non-Af Amer 61 mL/min >60 [facility] Comment on above: Non- GFR Calc Glucose measurementOrdered B y: Laverne Lea on 10-15-2024 Glucose [Mass/Vol] 217 mg/dL High 74-106 [facility] Comment on above: Glucose result great er than or equal to 200 mg/dLsuggests DIABETES MELLITUS per A.D.A. criteria. Hematocrit Auto (Bld) [Volum e fraction]Ordered By: Laverne Lea on 10-15-2024 Hematocrit (Bld) [Volume fraction] 32.8 % Low 37-47 [facility] Hemoglobin measurementOrdere d By: Laverne Lea on 10-15-2024 Hemoglobin (Bld) [Mass/Vol] 11.0 g/dL Low 12.0-15.0 [facility] Immature granulocytes/100 WB C Auto (Bld)Ordered By: Laverne Lea on 10-15-2024 Immature granulocytes/100 WBC (Bld) 0.200 % 0.0-0.9 [facility] Comment on above: IG% - Immature Granu locytes (promyelocytes, myelocytes and metamyelocytes) > 1% indicates that a LEFT SHIFT is Present. Lymphocytes Auto (Unsp spec) [#/Vol]Ordered By: Laverne Lea on 10-15-2024 Lymphocytes (Bld) [#/Vol] 3.43 10*3/uL 0.83-4.51 [facility] Lymphocytes/100 WBC Auto (Un sp spec)Ordered By: Laverne Lea on 10-15-2024 Lymphocytes/100 WBC (Bld) 54.1 % High 19-41 [facility] MCV (mean corpuscular volume ) determinationOrdered By: Laverne Lea on 10-15-2024 MCV (RBC) [Entitic vol] 93.4 fL 81-99 [facility] Mean corpuscular hemoglobin (MCH) determinationOrdered By: Laverne Lea on 10-15-2024 MCH (RBC) [Entitic mass] 31.3 pg 27.0-32.0 [facility] Mean corpuscular hemoglobin concentration (MCHC) determinationOrdered By: Laverne Lea on 10-15-2024 MCHC (RBC) [Mass/Vol] 33.5 g/dL 32-36 [facility] Mean platelet volume determi nationOrdered By: Laverne Lea on 10-15-2024 Platelet mean volume (Bld) [Entitic vol] 10.0 fL 6.2-12.0 [facility] Monocyte percentageOrdered B y: Laverne Lea on 10-15-2024 Monocytes/100 WBC (Bld) 6.2 % 0-10 [facility] Neutrophil percentageOrdered By: Laverne Lea on 10-15-2024 Neutrophils/100 WBC (Bld) 37.0 % Low 47-70 [facility] Nucleated red blood cell per centageOrdered By: Laverne Lea on 10-15-2024 Nucleated RBC/100 WBC (Bld) [Ratio] 0 % 0-5 [facility] Platelet countOrdered By: Leonora Lea on 10-15-2024 Platelets (Bld) [#/Vol] 246 10*3/uL 150-450 [facility] Potassium measurementOrdered By: Laverne Lea on 10-15-2024 Potassium [Moles/Vol] 4.1 mmol/L 3.5-5.1 [facility] RBC Auto (Bld) [#/Vol]Ordere d By: Laverne Lea on 10-15-2024 RBC (Bld) [#/Vol] 3.51 10*6/uL Low 4.2-5.4 [facility] Serum anion gap measurementO rdered By: Laverne Lea on 10-15-2024 Anion gap [Moles/Vol] 4 mmol/L Low 5-15 [facility] Serum or plasma calcium inga urement (mass/volume)Ordered By: Laverne Lea on 10-15-2024 Calcium [Mass/Vol] 9.0 mg/dL 8.5-10.1 [facility] Serum or plasma creatinine m easurement (mass/volume)Ordered By: Laverne Lea on 10-15-2024 Creatinine [Mass/Vol] 0.94 mg/dL 0.55-1.02 [facility] Comment on above: The validity of the calculated GFR & GFRAA in patients over 70 years has not been determined. Clinical correlation is essential. Serum or plasma urea nitroge n measurement (mass/volume)Ordered By: Laverne Lea on 10-15-2024 Urea nitrogen [Mass/Vol] 14 mg/dL 7-18 [facility] Sodium levelOrdered By: Antonette carvalholashay Leonora on 10-15-2024 Sodium [Moles/Vol] 139 mmol/L 136-145 [facility] White blood cell (WBC) count Ordered By: Laverne Lea on 10-15-2024 WBC (Bld) [#/Vol] 6.3 10*3/uL 4.4-11.0 [facility] TSH QnOrdered By: Laverne Lea on 10-01-2024 Thyroid Stimulating Hormone (TSH) 2.360 uIU/mL 0.358-3.740 [facility] Potassium measurementOrdered By: Laverne Lea on 09-13-2024 Potassium [Moles/Vol] 4.0 mmol/L 3.5-5.1 [facility] Absolute neutrophil countOrd ered By: Laverne Lea on 09-10-2024 Neutrophils (Bld) [#/Vol] 2.8 10*3/uL 2.0-7.7 [facility] Basophil percentageOrdered B y: Laverne Lea on 09-10-2024 Basophils/100 WBC (Bld) 0.8 % 0-1 [facility] Blood urea nitrogen (BUN)/cr eatinine ratioOrdered By: Laverne Lea on 09-10-2024 Urea nitrogen/Creatinine [Mass ratio] 11.3 mg/mg 10-20 [facility] Carbon dioxide measurementOr dered By: Laverne Lea on 09-10-2024 CO2 [Moles/Vol] 26.0 mmol/L 21.0-32.0 [facility] Chloride measurementOrdered By: Laverne Lea on 09-10-2024 Chloride [Moles/Vol] 108 mmol/L High 98-107 [facility] Eosinophil percentageOrdered By: Laverne Lea on 09-10-2024 Eosinophils/100 WBC (Bld) 1.4 % 0-5 [facility] Erythrocyte distribution wid th (RBC) [Ratio]Ordered By: Laverne Lea on 09-10-2024 Erythrocyte distribution width (RBC) [Entitic vol] 43.9 fL 35.1-43.9 [facility] Erythrocyte distribution wid th ratioOrdered By: Leonorafatounaginate Lea on 09-10-2024 Erythrocyte distribution width (RBC) [Ratio] 13.0 % 11.6-14.6 [facility] Estimated glomerular filtrat ion rate (GFR) AmericanOrdered By: Laverne Lea on 09-10-2024 Estimated GFR (MDRD) Amer 70 mL/min >60 [facility] Comment on above: GFR Calc Glomerular filtration rate ( GFR) estimationOrdered By: Laverne Lea on 09-10-2024 Estimated GFR (MDRD) Non-Af Amer 58 mL/min Low >60 [facility] Comment on above: Non- GFR Calc Glucose measurementOrdered B y: Laverne Lea on 09-10-2024 Glucose [Mass/Vol] 210 mg/dL High 74-106 [facility] Comment on above: Glucose result great er than or equal to 200 mg/dLsuggests DIABETES MELLITUS per A.D.A. criteria. Hematocrit Auto (Bld) [Volum e fraction]Ordered By: Laverne Lea on 09-10-2024 Hematocrit (Bld) [Volume fraction] 37.5 % 37-47 [facility] Hemoglobin measurementOrdere d By: Laverne Lea on 09-10-2024 Hemoglobin (Bld) [Mass/Vol] 12.4 g/dL 12.0-15.0 [facility] Immature granulocytes/100 WB C Auto (Bld)Ordered By: Laverne Lea on 09-10-2024 Immature granulocytes/100 WBC (Bld) 0.100 % 0.0-0.9 [facility] Comment on above: IG% - Immature Granu locytes (promyelocytes, myelocytes and metamyelocytes) > 1% indicates that a LEFT SHIFT is Present. Lymphocytes Auto (Unsp spec) [#/Vol]Ordered By: Laverne Lea on 09-10-2024 Lymphocytes (Bld) [#/Vol] 4.45 10*3/uL 0.83-4.51 [facility] Lymphocytes/100 WBC Auto (Un sp spec)Ordered By: Laverne Lea on 09-10-2024 Lymphocytes/100 WBC (Bld) 56.8 % High 19-41 [facility] MCV (mean corpuscular volume ) determinationOrdered By: Laverne Lea on 09-10-2024 MCV (RBC) [Entitic vol] 91.5 fL 81-99 [facility] Mean corpuscular hemoglobin (MCH) determinationOrdered By: Laverne Lea on 09-10-2024 MCH (RBC) [Entitic mass] 30.2 pg 27.0-32.0 [facility] Mean corpuscular hemoglobin concentration (MCHC) determinationOrdered By: Laverne Lea on 09-10-2024 MCHC (RBC) [Mass/Vol] 33.1 g/dL 32-36 [facility] Mean platelet volume determi nationOrdered By: Laverne Lea on 09-10-2024 Platelet mean volume (Bld) [Entitic vol] 10.1 fL 6.2-12.0 [facility] Monocyte percentageOrdered B y: Laverne Lea on 09-10-2024 Monocytes/100 WBC (Bld) 4.7 % 0-10 [facility] Neutrophil percentageOrdered By: Laverne Lea on 09-10-2024 Neutrophils/100 WBC (Bld) 36.2 % Low 47-70 [facility] Nucleated red blood cell per centageOrdered By: Laverne Lea on 09-10-2024 Nucleated RBC/100 WBC (Bld) [Ratio] 0 % 0-5 [facility] Platelet countOrdered By: Leonora fatouernesto Lea on 09-10-2024 Platelets (Bld) [#/Vol] 283 10*3/uL 150-450 [facility] Potassium measurementOrdered By: Laverne Lea on 09-10-2024 Potassium [Moles/Vol] 3.4 mmol/L Low 3.5-5.1 [facility] RBC Auto (Bld) [#/Vol]Ordere d By: Laverne Lea on 09-10-2024 RBC (Bld) [#/Vol] 4.10 10*6/uL Low 4.2-5.4 [facility] Serum anion gap measurementO rdered By: Laverne Lea on 09-10-2024 Anion gap [Moles/Vol] 6 mmol/L 5-15 [facility] Serum or plasma calcium inga urement (mass/volume)Ordered By: Leonorabeverly Moraleznetojp on 09-10-2024 Calcium [Mass/Vol] 9.4 mg/dL 8.5-10.1 [facility] Serum or plasma creatinine m easurement (mass/volume)Ordered By: Leonorafatounaginate Moraleznetojp on 09-10-2024 Creatinine [Mass/Vol] 0.98 mg/dL 0.55-1.02 [facility] Comment on above: The validity of the calculated GFR & GFRAA in patients over 70 years has not been determined. Clinical correlation is essential. Serum or plasma urea nitroge n measurement (mass/volume)Ordered By: Leonorabeverly Moraleznetojp on 09-10-2024 Urea nitrogen [Mass/Vol] 11 mg/dL 7-18 [facility] Sodium levelOrdered By: Antonette Lea on 09-10-2024 Sodium [Moles/Vol] 140 mmol/L 136-145 [facility] White blood cell (WBC) count Ordered By: Vinhnate Moralezesvin on 09-10-2024 WBC (Bld) [#/Vol] 7.8 10*3/uL 4.4-11.0 [facility] .Auto Diffon 05-23-2024 Basophil, Absolute 0.0 10 3/mcL Normal 0.0-0.2 [facility] ([place]) Comment on above: Performed By: #### C BC, GFR, A1C, ADIFF, CRP, TSH, CMP, ANEU, ESR #### Jonn [address] [address] Basophils/100 WBC (Bld) 0.5 % Normal 0.0-2.5 A [facility] ([place]) Comment on above: Performed By: #### C BC, GFR, A1C, ADIFF, CRP, TSH, CMP, ANEU, ESR #### [address] [address] Eosinophil, Absolute 0.2 10 3/mcL Normal 0.0-0.4 [facility] ([place]) Comment on above: Performed By: #### C BC, GFR, A1C, ADIFF, CRP, TSH, CMP, ANEU, ESR #### [address] [address] Eosinophils/100 WBC (Bld) 2.1 % Normal 0.0-7.0 [facility] ([place]) Comment on above: Performed By: #### C BC, GFR, A1C, ADIFF, CRP, TSH, CMP, ANEU, ESR #### [address] [address] Lymphocyte, Absolute 3.3 10 3/mcL Normal 0.8-3.9 [facility] ([place]) Comment on above: Performed By: #### C BC, GFR, A1C, ADIFF, CRP, TSH, CMP, ANEU, ESR #### [address] [address] Lymphocytes/100 WBC (Bld) 35.3 % Normal 10.0-50.0 [facility] ([place]) Comment on above: Performed By: #### C BC, GFR, A1C, ADIFF, CRP, TSH, CMP, ANEU, ESR #### [address] [address] Monocyte, Absolute 0.5 10 3/mcL Normal 0.2-1.0 [facility] ([place]) Comment on above: Performed By: #### C BC, GFR, A1C, ADIFF, CRP, TSH, CMP, ANEU, ESR #### [address] [address] Monocytes/100 WBC (Bld) 5.4 % Normal 1.7-13.0 [facility] ([place]) Comment on above: Performed By: #### C BC, GFR, A1C, ADIFF, CRP, TSH, CMP, ANEU, ESR #### [address] [address] Neutrophils/100 WBC (Bld) 56.7 % Normal 37.0-80.0 [facility] ([place]) Comment on above: Performed By: #### C BC, GFR, A1C, ADIFF, CRP, TSH, CMP, ANEU, ESR #### [address] [address] .GFRon 05-23-2024 GFR Non- 59 ml/min/1.73sqm Normal [facility] ([place]) Comment on above: Result Comment: GFR Population [...] ADIFF, CRP, TSH, CMP, ANEU, ESR #### [address] [address] GFR 71 ml/min/1.73sqm Normal [facility] ([place]) Comment on above: Result Comment: GFR Population [...] ADIFF, CRP, TSH, CMP, ANEU, ESR #### [address] [address] .NEUABSon 05-23-2024 Neutrophil, Absolute 5.3 10 3/mcL Normal 2.9-6.2 [facility] ([place]) Comment on above: Performed By: #### C BC, GFR, A1C, ADIFF, CRP, TSH, CMP, ANEU, ESR #### [address] [address] A1Con 05-23-2024 Glucose [Mass/Vol] 157 mg/dL Normal [facility] ([place]) Comment on above: Result Comment: Jessica mated Average Glucose calculated by equation ((28.7xA1C)-46.7) Estimated average glucose (eAG) is a calculated value from Hemoglobin A1C and is community engagement representative of the average blood glucose level in the last 2-3 month period. Normal range: less than 114 mg/dL Performed By: #### C BC, GFR, A1C, ADIFF, CRP, TSH, CMP, ANEU, ESR #### [place] [id number] HbA1c (Bld) [Mass fraction] 7.1 % High 4.3-6.4 [facility] ([place]) Comment on above: Performed By: #### C BC, GFR, A1C, ADIFF, CRP, TSH, CMP, ANEU, ESR #### [address] [address] CBCon 05-23-2024 Erythrocyte distribution width (RBC) [Ratio] 13.7 % Normal 11.5-14.5 [facility] ([place]) Comment on above: Performed By: #### C BC, GFR, A1C, ADIFF, CRP, TSH, CMP, ANEU, ESR #### [place] [id number] Hematocrit (Bld) [Volume fraction] 36.6 % Low 37.0-47.0 [facility] ([place]) Comment on above: Performed By: #### C BC, GFR, A1C, ADIFF, CRP, TSH, CMP, ANEU, ESR #### [place] [id number] Hgb 12.6 G/dL Normal 12.0-16.0 [facility] ([place]) Comment on above: Performed By: #### C BC, GFR, A1C, ADIFF, CRP, TSH, CMP, ANEU, ESR #### [address] [address] MCH (RBC) [Entitic mass] 30.6 pg Normal 27.0-31.2 [facility] ([place]) Comment on above: Performed By: #### C BC, GFR, A1C, ADIFF, CRP, TSH, CMP, ANEU, ESR #### [address] [address] MCHC 34.3 G/dL Normal 33.0-37.0 [facility] ([place]) Comment on above: Performed By: #### C BC, GFR, A1C, ADIFF, CRP, TSH, CMP, ANEU, ESR #### [address] [address] MCV (RBC) [Entitic vol] 89.3 fL Normal 80.0-94.0 [facility] ([place]) Comment on above: Performed By: #### C BC, GFR, A1C, ADIFF, CRP, TSH, CMP, ANEU, ESR #### [address] [address] Platelet 276 10 3/mcL Normal 130-400 [facility] ([place]) Comment on above: Performed By: #### C BC, GFR, A1C, ADIFF, CRP, TSH, CMP, ANEU, ESR #### [address] [address] Platelet mean volume (Bld) [Entitic vol] 8.3 fL Normal 7.4-10.4 [facility] ([place]) Comment on above: Performed By: #### C BC, GFR, A1C, ADIFF, CRP, TSH, CMP, ANEU, ESR #### [address] [address] RBC 4.10 10 6/mcL Low 4.20-5.40 [facility] ([place]) Comment on above: Performed By: #### C BC, GFR, A1C, ADIFF, CRP, TSH, CMP, ANEU, ESR #### [address] [address] WBC 9.4 10 3/mcL Normal 4.6-10.8 [facility] ([place]) Comment on above: Performed By: #### C BC, GFR, A1C, ADIFF, CRP, TSH, CMP, ANEU, ESR #### [address] [address] CMPon 05-23-2024 Albumin Level 3.3 G/dL Low 3.4-4.8 [facility] ([place]) Comment on above: Performed By: #### C BC, GFR, A1C, ADIFF, CRP, TSH, CMP, ANEU, ESR #### [address] [address] Albumin/Globulin [Mass ratio] 0.9 {ratio} Low 1.1-2.5 [facility] ([place]) Comment on above: Performed By: #### C BC, GFR, A1C, ADIFF, CRP, TSH, CMP, ANEU, ESR #### [address] [address] ALP [Catalytic activity/Vol] 115 U/L Normal 40-135 [facility] ([place]) Comment on above: Performed By: #### C BC, GFR, A1C, ADIFF, CRP, TSH, CMP, ANEU, ESR #### [address] [address] ALT [Catalytic activity/Vol] 35 U/L Normal 14-59 [facility] ([place]) Comment on above: Performed By: #### C BC, GFR, A1C, ADIFF, CRP, TSH, CMP, ANEU, ESR #### [address] [address] AST [Catalytic activity/Vol] 42 U/L High 10-40 [facility] ([place]) Comment on above: Performed By: #### C BC, GFR, A1C, ADIFF, CRP, TSH, CMP, ANEU, ESR #### [address] [address] Bili Total 0.4 mg/dL Normal 0.2-1.0 [facility] ([place]) Comment on above: Result Comment: Use of this assay is not recommended for patients undergoing treatment with eltrombopag due to the potential for falsely elevated results. Performed By: #### C BC, GFR, A1C, ADIFF, CRP, TSH, CMP, ANEU, ESR #### [address] [address] BUN/Creatinine Ratio 12 ratio Normal 7-27 [facility] ([place]) Comment on above: Performed By: #### C BC, GFR, A1C, ADIFF, CRP, TSH, CMP, ANEU, ESR #### [address] [address] Calcium [Mass/Vol] 10.1 mg/dL Normal 8.4-10.2 [facility] ([place]) Comment on above: Performed By: #### C BC, GFR, A1C, ADIFF, CRP, TSH, CMP, ANEU, ESR #### [address] [address] Chloride [Moles/Vol] 103 mmol/L Normal 98-107 [facility] ([place]) Comment on above: Performed By: #### C BC, GFR, A1C, ADIFF, CRP, TSH, CMP, ANEU, ESR #### [address] [address] CO2 [Moles/Vol] 29 mmol/L Normal 23-31 [facility] ([place]) Comment on above: Performed By: #### C BC, GFR, A1C, ADIFF, CRP, TSH, CMP, ANEU, ESR #### [address] [address] Creatinine [Mass/Vol] 0.92 mg/dL Normal 0.55-1.02 [facility] ([place]) Comment on above: Performed By: #### C BC, GFR, A1C, ADIFF, CRP, TSH, CMP, ANEU, ESR #### [address] [address] Electrolyte Balance 9.0 mEq/L Normal 4.0-15.0 [facility] ([place]) Comment on above: Performed By: #### C BC, GFR, A1C, ADIFF, CRP, TSH, CMP, ANEU, ESR #### [address] [address] Globulin 3.7 G/dL Normal [facility] ([place]) Comment on above: Performed By: #### C BC, GFR, A1C, ADIFF, CRP, TSH, CMP, ANEU, ESR #### [address] [address] Glucose [Mass/Vol] 129 mg/dL High 83-110 [facility] ([place]) Comment on above: Performed By: #### C BC, GFR, A1C, ADIFF, CRP, TSH, CMP, ANEU, ESR #### [address] [address] Potassium [Moles/Vol] 3.7 mmol/L Normal 3.5-5.1 [facility] ([place]) Comment on above: Performed By: #### C BC, GFR, A1C, ADIFF, CRP, TSH, CMP, ANEU, ESR #### [address] [address] Sodium [Moles/Vol] 141 mmol/L Normal 136-145 [facility] ([place]) Comment on above: Performed By: #### C BC, GFR, A1C, ADIFF, CRP, TSH, CMP, ANEU, ESR #### [address] [address] Total Protein 7.0 G/dL Normal 6.4-8.2 [facility] ([place]) Comment on above: Performed By: #### C BC, GFR, A1C, ADIFF, CRP, TSH, CMP, ANEU, ESR #### [address] [address] Urea nitrogen [Mass/Vol] 11 mg/dL Normal 7-18 [facility] ([place]) Comment on above: Performed By: #### C BC, GFR, A1C, ADIFF, CRP, TSH, CMP, ANEU, ESR #### [address] [address] CRPon 05-23-2024 C-Reactive Protein 0.2 mg/dL Normal 0.0-0.3 [facility] ([place]) Comment on above: Performed By: #### C BC, GFR, A1C, ADIFF, CRP, TSH, CMP, ANEU, ESR #### [place] [id number] [place], [place] [address] ESRon 05-23-2024 Erythrocyte Sed Rate 15 mm/hr Normal 0-30 [facility] ([place]) Comment on above: Performed By: #### C BC, GFR, A1C, ADIFF, CRP, TSH, CMP, ANEU, ESR #### [place] [id number] [place], [place] [address] LABORATORYOrdered By: SYSTEM SYSTEM on 05-23-2024 Albumin [...] calculated value from Hemoglobin A1C and is community engagement representative of the average blood glucose level [...] 05-23-2024 TSH Qn 1.98 m[IU]/L Normal 0.36-3.74 [facility] ([place]) Comment on above: Performed By: #### C BC, GFR, A1C, ADIFF, CRP, TSH, CMP, ANEU, ESR #### [address] [address] .ANATon 03-07-2024 CRISTEL Pattern 1 Homogeneous Normal [facility] ([place]) Comment on above: Result Comment: At A ultman, an CRISTEL titer of less than 160 is not considered suggestive of significant rheumatoid disease. If clinical suspicion is high, suggest repeat testing in 1-2 months. Performed By: #### C BC, GFR, A1C, ADIFF, CRP, TSH, CMP, ANEU, ESR #### [address] [address] CRISTEL Titer 1 80 Normal [facility] ([place]) Comment on above: Performed By: #### C BC, GFR, A1C, ADIFF, CRP, TSH, CMP, ANEU, ESR #### [place] [id number] [place], [place] [address] ANAon 03-07-2024 CRISTEL See Titer Normal Neg 40 [facility] ([place]) Comment on above: Result Comment: CRISTEL Screen and Titer methodology is an immunofluorescent technique utilizing Hep2 Substrate. Performed By: #### C BC, GFR, A1C, ADIFF, CRP, TSH, CMP, ANEU, ESR #### [address] [address] .GFRon 03-06-2024 GFR 62 ml/min/1.73sqm Normal [facility] ([place]) Comment on above: Result Comment: GFR Population [...] ADIFF, CRP, TSH, CMP, ANEU, ESR #### [address] [address] GFR Non- 51 ml/min/1.73sqm Normal [facility] ([place]) Comment on above: Result Comment: GFR Population [...] ADIFF, CRP, TSH, CMP, ANEU, ESR #### [address] [address] A1Con 03-06-2024 HbA1c (Bld) [Mass fraction] 7.5 % High 4.3-6.4 [facility] ([place]) Comment on above: Performed By: #### C BC, GFR, A1C, ADIFF, CRP, TSH, CMP, ANEU, ESR #### [address] [address] CMPon 03-06-2024 Albumin Level 3.1 G/dL Low 3.4-4.8 [facility] ([place]) Comment on above: Performed By: #### C BC, GFR, A1C, ADIFF, CRP, TSH, CMP, ANEU, ESR #### [address] [address] Albumin/Globulin [Mass ratio] 0.8 {ratio} Low 1.1-2.5 [facility] ([place]) Comment on above: Performed By: #### C BC, GFR, A1C, ADIFF, CRP, TSH, CMP, ANEU, ESR #### [address] [address] ALP [Catalytic activity/Vol] 113 U/L Normal 40-135 [facility] ([place]) Comment on above: Performed By: #### C BC, GFR, A1C, ADIFF, CRP, TSH, CMP, ANEU, ESR #### [address] [address] ALT [Catalytic activity/Vol] 24 U/L Normal 14-59 [facility] ([place]) Comment on above: Performed By: #### C BC, GFR, A1C, ADIFF, CRP, TSH, CMP, ANEU, ESR #### [address] [address] AST [Catalytic activity/Vol] 19 U/L Normal 10-40 [facility] ([place]) Comment on above: Performed By: #### C BC, GFR, A1C, ADIFF, CRP, TSH, CMP, ANEU, ESR #### [address] [address] Bili Total 0.4 mg/dL Normal 0.2-1.0 [facility] ([place]) Comment on above: Result Comment: Use of this assay is not recommended for patients undergoing treatment with eltrombopag due to the potential for falsely elevated results. Performed By: #### C BC, GFR, A1C, ADIFF, CRP, TSH, CMP, ANEU, ESR #### [address] [address] BUN/Creatinine Ratio 16 ratio Normal 7-27 [facility] ([place]) Comment on above: Performed By: #### C BC, GFR, A1C, ADIFF, CRP, TSH, CMP, ANEU, ESR #### [place] [id number] Calcium [Mass/Vol] 9.0 mg/dL Normal 8.4-10.2 [facility] ([place]) Comment on above: Performed By: #### C BC, GFR, A1C, ADIFF, CRP, TSH, CMP, ANEU, ESR #### [address] [address] Chloride [Moles/Vol] 103 mmol/L Normal 98-107 [facility] ([place]) Comment on above: Performed By: #### C BC, GFR, A1C, ADIFF, CRP, TSH, CMP, ANEU, ESR #### [address] [address] CO2 [Moles/Vol] 32 mmol/L High 23-31 [facility] ([place]) Comment on above: Performed By: #### C BC, GFR, A1C, ADIFF, CRP, TSH, CMP, ANEU, ESR #### [address] [address] Creatinine [Mass/Vol] 1.04 mg/dL High 0.55-1.02 [facility] ([place]) Comment on above: Performed By: #### C BC, GFR, A1C, ADIFF, CRP, TSH, CMP, ANEU, ESR #### [address] [address] Electrolyte Balance 10.0 mEq/L Normal 4.0-15.0 [facility] ([place]) Comment on above: Performed By: #### C BC, GFR, A1C, ADIFF, CRP, TSH, CMP, ANEU, ESR #### [address] [address] Globulin 3.7 G/dL Normal [facility] ([place]) Comment on above: Performed By: #### C BC, GFR, A1C, ADIFF, CRP, TSH, CMP, ANEU, ESR #### [address] [address] Glucose [Mass/Vol] 147 mg/dL High 83-110 [facility] ([place]) Comment on above: Performed By: #### C BC, GFR, A1C, ADIFF, CRP, TSH, CMP, ANEU, ESR #### [address] [address] Potassium [Moles/Vol] 3.6 mmol/L Normal 3.5-5.1 [facility] ([place]) Comment on above: Performed By: #### C BC, GFR, A1C, ADIFF, CRP, TSH, CMP, ANEU, ESR #### [address] [address] Sodium [Moles/Vol] 145 mmol/L Normal 136-145 [facility] ([place]) Comment on above: Performed By: #### C BC, GFR, A1C, ADIFF, CRP, TSH, CMP, ANEU, ESR #### [address] [address] Total Protein 6.8 G/dL Normal 6.4-8.2 [facility] ([place]) Comment on above: Performed By: #### C BC, GFR, A1C, ADIFF, CRP, TSH, CMP, ANEU, ESR #### [address] [address] Urea nitrogen [Mass/Vol] 17 mg/dL Normal 7-18 [facility] ([place]) Comment on above: Performed By: #### C BC, GFR, A1C, ADIFF, CRP, TSH, CMP, ANEU, ESR #### [address] [address] CRPon 03-06-2024 C-Reactive Protein 0.1 mg/dL Normal 0.0-0.3 [facility] ([place]) Comment on above: Performed By: #### C BC, GFR, A1C, ADIFF, CRP, TSH, CMP, ANEU, ESR #### [address] [address] ESRon 03-06-2024 Erythrocyte Sed Rate 9 mm/hr Normal 0-30 [facility] ([place]) Comment on above: Performed By: #### C BC, GFR, A1C, ADIFF, CRP, TSH, CMP, ANEU, ESR #### [address] [address] FT3on 03-06-2024 Free T3 [Mass/Vol] 2.44 pg/mL Normal 2.30-4.00 [facility] ([place]) Comment on above: Performed By: #### C BC, GFR, A1C, ADIFF, CRP, TSH, CMP, ANEU, ESR #### [address] [address] FT4on 03-06-2024 Free T4 [Mass/Vol] 0.81 ng/dL Normal 0.76-1.46 [facility] ([place]) Comment on above: Performed By: #### C BC, GFR, A1C, ADIFF, CRP, TSH, CMP, ANEU, ESR #### [address] [address] LIPIDon 03-06-2024 Cholesterol [Mass/Vol] 163 mg/dL Normal 0-200 [facility] ([place]) Comment on above: Result Comment: Chol esterol Reference Interval: Less than 200 Desirable 200-239 Borderline high risk 240 and above High risk Performed By: #### C BC, GFR, A1C, ADIFF, CRP, TSH, CMP, ANEU, ESR #### [address] [address] Cholesterol in HDL [Mass/Vol] 49 mg/dL Normal 40-60 [facility] ([place]) Comment on above: Performed By: #### C BC, GFR, A1C, ADIFF, CRP, TSH, CMP, ANEU, ESR #### [address] [address] Cholesterol in LDL [Mass/Vol] 87 mg/dL Normal 0-130 [facility] ([place]) Comment on above: Performed By: #### C BC, GFR, A1C, ADIFF, CRP, TSH, CMP, ANEU, ESR #### [address] [address] Triglyceride [Mass/Vol] 133 mg/dL Normal 0-150 [facility] ([place]) Comment on above: Result Comment: Trig lyceride Reference Interval: Less than 150 Normal 150-199 Borderline high risk 200-499 High risk 500 or higher Very high risk Performed By: #### C BC, GFR, A1C, ADIFF, CRP, TSH, CMP, ANEU, ESR #### [place] [phone] TSHon 03-06-2024 TSH Qn 4.52 m[IU]/L High 0.36-3.74 [facility] ([place]) Comment on above: Performed By: #### C BC, GFR, A1C, ADIFF, CRP, TSH, CMP, ANEU, ESR #### [address] [address] URICon 03-06-2024 Uric Acid Lvl 6.3 mg/dL High 2.6-6.2 [facility] ([place]) Comment on above: Performed By: #### C BC, GFR, A1C, ADIFF, CRP, TSH, CMP, ANEU, ESR #### [address] [address] Absolute lymphocyte countOrd ered By: Katalina Torres on 12-28-2023 Lymphocytes Auto (Unsp spec) [#/Vol] 2.31 10*3/uL 0.83-4.51 [facility] Automated lymphocyte count a s percentage of total leukocytesOrdered By: Katalina Torres on 12-28-2023 Lymphocytes/100 WBC Auto (Unsp spec) 33.3 % 19-41 [facility] Basophil percentageOrdered B y: Katalina Torres on 12-28-2023 Basophils/100 WBC (Bld) 0.6 % 0-1 [facility] Chloride [Moles/Vol] 104 mmol/L 98-107 [facility] Eosinophils/100 WBC (Bld) 1.9 % 0-5 [facility] Glucose [Mass/Vol] 161 mg/dL 74-106 [facility] Comment on above: Fasting Glucose resu lt greater than or equal to 126 mg/dL suggests DIABETES MELLITUS per A.D.A. criteria. Hemoglobin (Bld) [Mass/Vol] 12.4 g/dL 12.0-15.0 [facility] Monocytes/100 WBC (Bld) 4.9 % 0-10 [facility] Neutrophils (Bld) [#/Vol] 4.1 10*3/uL 2.0-7.7 [facility] Neutrophils/100 WBC (Bld) 59.2 % 47-70 [facility] Potassium [Moles/Vol] 3.3 mmol/L 3.5-5.1 [facility] Sodium [Moles/Vol] 140 mmol/L 136-145 [facility] WBC (Bld) [#/Vol] 6.9 10*3/uL 4.4-11.0 [facility] Determination of erythrocyte mean corpuscular volume (MCV)Ordered By: Katalina Torres on 12-28-2023 MCV (RBC) [Entitic vol] 88.6 fL 81-99 [facility] Erythrocyte distribution wid th ratioOrdered By: Katalina Torres on 12-28-2023 Erythrocyte distribution width (RBC) [Ratio] 13.6 % 11.6-14.6 [facility] Erythrocyte distribution wid th standard deviationOrdered By: Katalina Torres on 12-28-2023 Erythrocyte distribution width (RBC) [Entitic vol] 44.2 fL 35.1-43.9 [facility] Hematocrit Auto (Bld) [Volum e fraction]Ordered By: Katalina Torres on 12-28-2023 Hematocrit (Bld) [Volume fraction] 38.8 % 37-47 [facility] Immature granulocytes/100 WB C Auto (Bld)Ordered By: Katalina Torres on 12-28-2023 Immature granulocytes/100 WBC (Bld) 0.100 % 0.0-0.9 [facility] Comment on above: IG% - Immature Granu locytes (promyelocytes, myelocytes and metamyelocytes) > 1% indicates that a LEFT SHIFT is Present. Laboratory - Chemistry and C hemistry - challengeOrdered By: Katalina Torres on 12-28-2023 CO2 [Moles/Vol] 30.0 mmol/L 21.0-32.0 [facility] Natriuretic peptide B (Bld) [Mass/Vol] 61.6 pg/mL 0-100 [facility] Urea nitrogen/Creatinine [Mass ratio] 19.4 mg/mg 10-20 [facility] Laboratory - Hematology and Cell countsOrdered By: Katalina Torres on 12-28-2023 MCH (RBC) [Entitic mass] 28.3 pg 27.0-32.0 [facility] MCHC (RBC) [Mass/Vol] 32.0 g/dL 32-36 [facility] Nucleated RBC/100 WBC (Bld) [Ratio] 0 % 0-5 [facility] Platelet mean volume (Bld) [Entitic vol] 10.5 fL 6.2-12.0 [facility] Platelets (Bld) [#/Vol] 247 10*3/uL 150-450 [facility] No Panel InformationOrdered By: Katalina Torres on 12-28-2023 Estimated GFR (MDRD) Amer 80 mL/min >60 [facility] Comment on above: GFR Calc Estimated GFR (MDRD) Non-Af Amer 66 mL/min >60 [facility] Comment on above: Non- GFR Calc RBC Auto (Bld) [#/Vol]Ordere d By: Katalina Torres on 12-28-2023 RBC (Bld) [#/Vol] 4.38 10*6/uL 4.2-5.[address] [facility] Serum or plasma calcium inga urement (mass/volume)Ordered By: Katalina Torres on 12-28-2023 Calcium [Mass/Vol] 9.7 mg/dL 8.5-10.1 [facility] Serum or plasma creatinine m easurement (mass/volume)Ordered By: Katalina Torres on 12-28-2023 Creatinine [Mass/Vol] 0.88 mg/dL 0.55-1.02 [facility] Comment on above: The validity of the calculated GFR & GFRAA in patients over 70 years has not been determined. Clinical correlation is essential. Serum or plasma thyroid stim ulating hormone (TSH) measurement (units/volume)Ordered By: Katalina Torres on 12-28-2023 TSH Qn 3.53 uIU/mL 0.358-3.74 [facility] Serum or plasma thyroxine (T 4) measurement (mass/volume)Ordered By: Katalina Torres on 12-28-2023 T4 [Mass/Vol] 9.0 ug/dL 4.8-13.9 [facility] Serum or plasma urea nitroge n measurement (mass/volume)Ordered By: Katalina Torres on 12-28-2023 Urea nitrogen [Mass/Vol] 17 mg/dL 7-18 [facility] Thin prep Papanicolaou smear with manual screeningOrdered By: Katalina Torres on 12-28-2023 Thin prep Papanicolaou smear with manual screening 6 5-15 [facility] Basophil percentageOrdered B y: Katalina Torres on 12-15-2023 Chloride [Moles/Vol] 107 mmol/L 98-107 [facility] Glucose [Mass/Vol] 153 mg/dL 74-106 [facility] Comment on above: Fasting Glucose resu lt greater than or equal to 126 mg/dL suggests DIABETES MELLITUS per A.D.A. criteria. Potassium [Moles/Vol] 3.8 mmol/L 3.5-5.1 [facility] Sodium [Moles/Vol] 142 mmol/L 136-145 [facility] Laboratory - Chemistry and C hemistry - challengeOrdered By: Katalina Torres on 12-15-2023 CO2 [Moles/Vol] 30.0 mmol/L 21.0-32.0 [facility] Urea nitrogen/Creatinine [Mass ratio] 8.5 mg/mg 10-20 [facility] No Panel InformationOrdered By: Katalina Torres on 12-15-2023 Estimated GFR (MDRD) Amer 73 mL/min >60 [facility] Comment on above: GFR Calc Estimated GFR (MDRD) Non-Af Amer 61 mL/min >60 [facility] Comment on above: Non- GFR Calc Serum or plasma calcium inga urement (mass/volume)Ordered By: Katalina Torres on 12-15-2023 Calcium [Mass/Vol] 9.7 mg/dL 8.5-10.1 [facility] Serum or plasma creatinine m easurement (mass/volume)Ordered By: Katalina Torres on 12-15-2023 Creatinine [Mass/Vol] 0.94 mg/dL 0.55-1.02 [facility] Comment on above: The validity of the calculated GFR & GFRAA in patients over 70 years has not been determined. Clinical correlation is essential. Serum or plasma urea nitroge n measurement (mass/volume)Ordered By: Katalina Torres on 12-15-2023 Urea nitrogen [Mass/Vol] 8 mg/dL - [facility] Thin prep Papanicolaou smear with manual screeningOrdered By: Katalina Torres on 12-15-2023 Thin prep Papanicolaou smear with manual screening 5 - [facility] Absolute lymphocyte countOrd ered By: Lesley Lopez on 11-20-2023 Lymphocytes Auto (Unsp spec) [#/Vol] 2.64 10*3/uL 0.83-4.51 [facility] Activated partial thrombopla stin time (aPTT) in platelet poor plasma by coagulation aOrdered By: Lesley Lopez on 11-20-2023 aPTT Coag (PPP) [Time] 31.8 s 24.1-36.2 [facility] Automated lymphocyte count a s percentage of total leukocytesOrdered By: Lesley Lopez on 11-20-2023 Lymphocytes/100 WBC Auto (Unsp spec) 38.0 % 19-41 [facility] Basophil percentageOrdered B y: Lesley Lopez on 11-20-2023 Basophils/100 WBC (Bld) 0.6 % 0-1 [facility] Chloride [Moles/Vol] 109 mmol/L 98-107 [facility] Eosinophils/100 WBC (Bld) 1.9 % 0-5 [facility] Glucose [Mass/Vol] 169 mg/dL 74-106 [facility] Comment on above: Fasting Glucose resu lt greater than or equal to 126 mg/dL suggests DIABETES MELLITUS per A.D.A. criteria. Hemoglobin (Bld) [Mass/Vol] 11.4 g/dL 12.0-15.0 [facility] Monocytes/100 WBC (Bld) 5.8 % 0-10 [facility] Neutrophils (Bld) [#/Vol] 3.7 10*3/uL 2.0-7.7 [facility] Neutrophils/100 WBC (Bld) 53.4 % 47-70 [facility] Potassium [Moles/Vol] 4.2 mmol/L 3.5-5.1 [facility] Sodium [Moles/Vol] 141 mmol/L 136-145 [facility] WBC (Bld) [#/Vol] 6.9 10*3/uL 4.4-11.0 [facility] Determination of erythrocyte mean corpuscular volume (MCV)Ordered By: Lesley Lopez on 11-20-2023 MCV (RBC) [Entitic vol] 88.9 fL 81-99 [facility] Erythrocyte distribution wid th ratioOrdered By: Lesley Lopez on 11-20-2023 Erythrocyte distribution width (RBC) [Ratio] 14.2 % 11.6-14.6 [facility] Erythrocyte distribution wid th standard deviationOrdered By: Lesley Lopez on 11-20-2023 Erythrocyte distribution width (RBC) [Entitic vol] 45.7 fL 35.1-43.9 [facility] Hematocrit Auto (Bld) [Volum e fraction]Ordered By: Lesley Lopez on 11-20-2023 Hematocrit (Bld) [Volume fraction] 36.2 % 37-47 [facility] Immature granulocytes/100 WB C Auto (Bld)Ordered By: Lesley Lopez on 11-20-2023 Immature granulocytes/100 WBC (Bld) 0.300 % 0.0-0.9 [facility] Comment on above: IG% - Immature Granu locytes (promyelocytes, myelocytes and metamyelocytes) > 1% indicates that a LEFT SHIFT is Present. Laboratory - Chemistry and C hemistry - challengeOrdered By: Lesley Lopez on 11-20-2023 CO2 [Moles/Vol] 29.0 mmol/L 21.0-32.0 [facility] Urea nitrogen/Creatinine [Mass ratio] 16.0 mg/mg 10-20 [facility] Laboratory - CoagulationOrde red By: Lesley Lopez on 11-20-2023 INR Coag (Bld) [Relative time] 1.2 {INR} [facility] PT Coag (PPP) [Time] 15.6 s 11.7-14.9 [facility] Laboratory - Hematology and Cell countsOrdered By: Lesley Lopez on 11-20-2023 MCH (RBC) [Entitic mass] 28.0 pg 27.0-32.0 [facility] MCHC (RBC) [Mass/Vol] 31.5 g/dL 32-36 [facility] Nucleated RBC/100 WBC (Bld) [Ratio] 0 % 0-5 [facility] Platelet mean volume (Bld) [Entitic vol] 10.6 fL 6.2-12.0 [facility] Platelets (Bld) [#/Vol] 222 10*3/uL 150-450 [facility] No Panel InformationOrdered By: Lesley Lopez on 11-20-2023 Estimated Creatinine Clearance Calc 40.41 ml/min [facility] Estimated GFR (MDRD) Amer 64 mL/min >60 [facility] Comment on above: GFR Calc Estimated GFR (MDRD) Non-Af Amer 53 mL/min >60 [facility] Comment on above: Non- GFR Calc RBC Auto (Bld) [#/Vol]Ordere d By: Lesley Lopez on 11-20-2023 RBC (Bld) [#/Vol] 4.07 10*6/uL 4.2-5.4 [facility] Serum or plasma calcium inga urement (mass/volume)Ordered By: Lesley Lopez on 11-20-2023 Calcium [Mass/Vol] 9.1 mg/dL 8.5-10.1 [facility] Serum or plasma creatinine m easurement (mass/volume)Ordered By: Lesley Lopez on 11-20-2023 Creatinine [Mass/Vol] 1.06 mg/dL 0.55-1.02 [facility] Comment on above: The validity of the calculated GFR & GFRAA in patients over 70 years has not been determined. Clinical correlation is essential. Serum or plasma urea nitroge n measurement (mass/volume)Ordered By: Lesley Lopez on 11-20-2023 Urea nitrogen [Mass/Vol] 17 mg/dL 04-19 [facility] Thin prep Papanicolaou smear with manual screeningOrdered By: Lesley Lopez on 11-20-2023 Thin prep Papanicolaou smear with manual screening 3 5-15 [facility] Basophil percentageOrdered B y: Katalina Torres on 11-04-2023 Chloride [Moles/Vol] 106 mmol/L 98-107 [facility] Glucose [Mass/Vol] 98 mg/dL 74-106 [facility] Potassium [Moles/Vol] 4.1 mmol/L 3.5-5.1 [facility] Sodium [Moles/Vol] 137 mmol/L 136-145 [facility] Laboratory - Chemistry and C hemistry - challengeOrdered By: Katalina Torres on 11-04-2023 CO2 [Moles/Vol] 30.0 mmol/L 21.0-32.0 [facility] Urea nitrogen/Creatinine [Mass ratio] 12.7 mg/mg 10- [facility] No Panel InformationOrdered By: Katalina Torres on 11-04-2023 Estimated GFR (MDRD) Amer 61 mL/min >60 [facility] Comment on above: GFR Calc Estimated GFR (MDRD) Non-Af Amer 51 mL/min >60 [facility] Comment on above: Non- GFR Calc Serum or plasma calcium inga urement (mass/volume)Ordered By: Katalina Torres on 11-04-2023 Calcium [Mass/Vol] 10.0 mg/dL 8.5-10.1 [facility] Serum or plasma creatinine m easurement (mass/volume)Ordered By: Katalina Torres on 11-04-2023 Creatinine [Mass/Vol] 1.10 mg/dL 0.55-1.02 [facility] Comment on above: The validity of the calculated GFR & GFRAA in patients over 70 years has not been determined. Clinical correlation is essential. Serum or plasma urea nitroge n measurement (mass/volume)Ordered By: Katalina Torres on 11-04-2023 Urea nitrogen [Mass/Vol] 14 mg/dL 04-19 [facility] Thin prep Papanicolaou smear with manual screeningOrdered By: Katalina Torres on 11-04-2023 Thin prep Papanicolaou smear with manual screening 1 5-15 [facility] .Auto Diffon 11-01-2023 Basophil, Absolute 0.0 10 3/mcL Normal 0.0-0.2 [facility] ([place]) Comment on above: Performed By: #### C BC, GFR, A1C, ADIFF, CRP, TSH, CMP, ANEU, ESR #### [address] [address] Basophils/100 WBC (Bld) 0.5 % Normal 0.0-2.5 A [facility] ([place]) Comment on above: Performed By: #### C BC, GFR, A1C, ADIFF, CRP, TSH, CMP, ANEU, ESR #### [address] [address] Eosinophil, Absolute 0.1 10 3/mcL Normal 0.0-0.4 [facility] ([place]) Comment on above: Performed By: #### C BC, GFR, A1C, ADIFF, CRP, TSH, CMP, ANEU, ESR #### [address] [address] Eosinophils/100 WBC (Bld) 1.2 % Normal 0.0-7.0 [facility] ([place]) Comment on above: Performed By: #### C BC, GFR, A1C, ADIFF, CRP, TSH, CMP, ANEU, ESR #### [address] [address] Lymphocyte, Absolute 2.9 10 3/mcL Normal 0.8-3.9 [facility] ([place]) Comment on above: Performed By: #### C BC, GFR, A1C, ADIFF, CRP, TSH, CMP, ANEU, ESR #### [address] [address] Lymphocytes/100 WBC (Bld) 37.6 % Normal 10.0-50.0 [facility] ([place]) Comment on above: Performed By: #### C BC, GFR, A1C, ADIFF, CRP, TSH, CMP, ANEU, ESR #### [address] [address] Monocyte, Absolute 0.3 10 3/mcL Normal 0.2-1.0 [facility] ([place]) Comment on above: Performed By: #### C BC, GFR, A1C, ADIFF, CRP, TSH, CMP, ANEU, ESR #### [address] [address] Monocytes/100 WBC (Bld) 4.2 % Normal 1.7-13.0 A [facility] ([place]) Comment on above: Performed By: #### C BC, GFR, A1C, ADIFF, CRP, TSH, CMP, ANEU, ESR #### [address] [address] Neutrophils/100 WBC (Bld) 56.5 % Normal 37.0-80.0 [facility] ([place]) Comment on above: Performed By: #### C BC, GFR, A1C, ADIFF, CRP, TSH, CMP, ANEU, ESR #### [address] [address] .GFRon 11-01-2023 GFR 63 ml/min/1.73sqm Normal [facility] ([place]) Comment on above: Result Comment: GFR Population [...] ADIFF, CRP, TSH, CMP, ANEU, ESR #### [address] [address] GFR Non- 52 ml/min/1.73sqm Normal [facility] ([place]) Comment on above: Result Comment: GFR Population [...] ADIFF, CRP, TSH, CMP, ANEU, ESR #### [address] [address] .NEUABSon 11-01-2023 Neutrophil, Absolute 4.4 10 3/mcL Normal 2.9-6.2 [facility] ([place]) Comment on above: Performed By: #### C BC, GFR, A1C, ADIFF, CRP, TSH, CMP, ANEU, ESR #### [address] [address] A1Con 11-01-2023 HbA1c (Bld) [Mass fraction] 5.9 % Normal 4.3-6.4 [facility] ([place]) Comment on above: Performed By: #### C BC, GFR, A1C, ADIFF, CRP, TSH, CMP, ANEU, ESR #### [address] [address] CBCon 11-01-2023 Erythrocyte distribution width (RBC) [Ratio] 15.4 % High 11.5-14.5 [facility] ([place]) Comment on above: Performed By: #### C BC, GFR, A1C, ADIFF, CRP, TSH, CMP, ANEU, ESR #### [address] [address] Hematocrit (Bld) [Volume fraction] 39.7 % Normal 37.0-47.0 [facility] ([place]) Comment on above: Performed By: #### C BC, GFR, A1C, ADIFF, CRP, TSH, CMP, ANEU, ESR #### [address] [address] Hgb 13.3 G/dL Normal 12.0-16.0 [facility] ([place]) Comment on above: Performed By: #### C BC, GFR, A1C, ADIFF, CRP, TSH, CMP, ANEU, ESR #### [address] [address] MCH (RBC) [Entitic mass] 28.3 pg Normal 27.0-31.2 [facility] ([place] Comment on above: Performed By: #### C BC, GFR, A1C, ADIFF, CRP, TSH, CMP, ANEU, ESR #### [address] [address] MCHC 33.6 G/dL Normal 33.0-37.0 [facility] ([place]) Comment on above: Performed By: #### C BC, GFR, A1C, ADIFF, CRP, TSH, CMP, ANEU, ESR #### [address] [address] MCV (RBC) [Entitic vol] 84.4 fL Normal 80.0-94.0 A [facility] ([place]) Comment on above: Performed By: #### C BC, GFR, A1C, ADIFF, CRP, TSH, CMP, ANEU, ESR #### [address] [address] Platelet 251 10 3/mcL Normal 130-400 [facility] ([place]) Comment on above: Performed By: #### C BC, GFR, A1C, ADIFF, CRP, TSH, CMP, ANEU, ESR #### [address] [address] Platelet mean volume (Bld) [Entitic vol] 8.7 fL Normal 7.4-10.4 [facility] ([place]) Comment on above: Performed By: #### C BC, GFR, A1C, ADIFF, CRP, TSH, CMP, ANEU, ESR #### [address] [address] RBC 4.70 10 6/mcL Normal 4.20-5.40 [facility] ([place]) Comment on above: Performed By: #### C BC, GFR, A1C, ADIFF, CRP, TSH, CMP, ANEU, ESR #### [address] [address] WBC 7.7 10 3/mcL Normal 4.6-10.8 [facility] ([place]) Comment on above: Performed By: #### C BC, GFR, A1C, ADIFF, CRP, TSH, CMP, ANEU, ESR #### [address] [address] CMPon 11-01-2023 Albumin Level 3.3 G/dL Low 3.4-4.8 [facility] ([place]) Comment on above: Performed By: #### C BC, GFR, A1C, ADIFF, CRP, TSH, CMP, ANEU, ESR #### [address] [address] Albumin/Globulin [Mass ratio] 0.8 {ratio} Low 1.1-2.5 [facility] ([place]) Comment on above: Performed By: #### C BC, GFR, A1C, ADIFF, CRP, TSH, CMP, ANEU, ESR #### [address] [address] ALP [Catalytic activity/Vol] 108 U/L Normal 40-135 [facility] ([place]) Comment on above: Performed By: #### C BC, GFR, A1C, ADIFF, CRP, TSH, CMP, ANEU, ESR #### [address] [address] ALT [Catalytic activity/Vol] 19 U/L Normal 14-59 [facility] ([place] Comment on above: Performed By: #### C BC, GFR, A1C, ADIFF, CRP, TSH, CMP, ANEU, ESR #### [address] [address] AST [Catalytic activity/Vol] 20 U/L Normal 10-40 [facility] ([place]) Comment on above: Performed By: #### C BC, GFR, A1C, ADIFF, CRP, TSH, CMP, ANEU, ESR #### [address] [address] Bili Total 0.4 mg/dL Normal 0.2-1.0 [facility] ([place]) Comment on above: Result Comment: Use of this assay is not recommended for patients undergoing treatment with eltrombopag due to the potential for falsely elevated results. Performed By: #### C BC, GFR, A1C, ADIFF, CRP, TSH, CMP, ANEU, ESR #### [address] [address] BUN/Creatinine Ratio 13 ratio Normal 7-27 [facility] ([place] Comment on above: Performed By: #### C BC, GFR, A1C, ADIFF, CRP, TSH, CMP, ANEU, ESR #### [address] [address] Calcium [Mass/Vol] 10.0 mg/dL Normal 8.4-10.2 [facility] ([place]) Comment on above: Performed By: #### C BC, GFR, A1C, ADIFF, CRP, TSH, CMP, ANEU, ESR #### [address] [address] Chloride [Moles/Vol] 102 mmol/L Normal 98-107 [facility] ([place] Comment on above: Performed By: #### C BC, GFR, A1C, ADIFF, CRP, TSH, CMP, ANEU, ESR #### [address] [address] CO2 [Moles/Vol] 30 mmol/L Normal 23-31 [facility] ([place] Comment on above: Performed By: #### C BC, GFR, A1C, ADIFF, CRP, TSH, CMP, ANEU, ESR #### [address] [address] Creatinine [Mass/Vol] 1.02 mg/dL Normal 0.55-1.02 [facility] ([place]) Comment on above: Performed By: #### C BC, GFR, A1C, ADIFF, CRP, TSH, CMP, ANEU, ESR #### [address] [address] Electrolyte Balance 9.0 mEq/L Normal 4.0-15.0 [facility] ([place]) Comment on above: Performed By: #### C BC, GFR, A1C, ADIFF, CRP, TSH, CMP, ANEU, ESR #### [address] [address] Globulin 4.3 G/dL Normal [facility] ([place]) Comment on above: Performed By: #### C BC, GFR, A1C, ADIFF, CRP, TSH, CMP, ANEU, ESR #### [address] [address] Glucose [Mass/Vol] 94 mg/dL Normal 83-110 [facility] ([place]) Comment on above: Performed By: #### C BC, GFR, A1C, ADIFF, CRP, TSH, CMP, ANEU, ESR #### [address] [address] Potassium [Moles/Vol] 4.3 mmol/L Normal 3.5-5.1 [facility] ([place]) Comment on above: Performed By: #### C BC, GFR, A1C, ADIFF, CRP, TSH, CMP, ANEU, ESR #### [address] [address] Sodium [Moles/Vol] 141 mmol/L Normal 136-145 [facility] ([place]) Comment on above: Performed By: #### C BC, GFR, A1C, ADIFF, CRP, TSH, CMP, ANEU, ESR #### [address] [address] Total Protein 7.6 G/dL Normal 6.4-8.2 [facility] ([place]) Comment on above: Performed By: #### C BC, GFR, A1C, ADIFF, CRP, TSH, CMP, ANEU, ESR #### [address] [address] Urea nitrogen [Mass/Vol] 13 mg/dL Normal 7-18 [facility] ([place]) Comment on above: Performed By: #### C BC, GFR, A1C, ADIFF, CRP, TSH, CMP, ANEU, ESR #### [address] [address] LIPIDon 11-01-2023 Cholesterol [Mass/Vol] 172 mg/dL Normal 0-200 [facility] ([place]) Comment on above: Result Comment: Chol esterol Reference Interval: Less than 200 Desirable 200-239 Borderline high risk 240 and above High risk Performed By: #### C BC, GFR, A1C, ADIFF, CRP, TSH, CMP, ANEU, ESR #### [address] [address] Cholesterol in HDL [Mass/Vol] 53 mg/dL Normal 40-60 [facility] ([place]) Comment on above: Performed By: #### C BC, GFR, A1C, ADIFF, CRP, TSH, CMP, ANEU, ESR #### [address] [address] Cholesterol in LDL [Mass/Vol] 97 mg/dL Normal 0-130 [facility] ([place]) Comment on above: Performed By: #### C BC, GFR, A1C, ADIFF, CRP, TSH, CMP, ANEU, ESR #### [address] [address] Triglyceride [Mass/Vol] 111 mg/dL Normal 0-150 A [facility] ([place]) Comment on above: Result Comment: Trig lyceride Reference Interval: Less than 150 Normal 150-199 Borderline high risk 200-499 High risk 500 or higher Very high risk Performed By: #### C BC, GFR, A1C, ADIFF, CRP, TSH, CMP, ANEU, ESR #### [address] [address] Absolute lymphocyte countOrd ered By: Katalina Torres on 10-24-2023 Lymphocytes Auto (Unsp spec) [#/Vol] 2.52 10*3/uL 0.83-4.51 [facility] Automated lymphocyte count a s percentage of total leukocytesOrdered By: Katalina Torres on 10-24-2023 Lymphocytes/100 WBC Auto (Unsp spec) 40.4 % 19-41 [facility] Basophil percentageOrdered B y: Katalina Torres on 10-24-2023 Basophils/100 WBC (Bld) 0.6 % 0-1 [facility] Chloride [Moles/Vol] 108 mmol/L 98-107 [facility] Eosinophils/100 WBC (Bld) 2.6 % 0-5 [facility] Glucose [Mass/Vol] 118 mg/dL 74-106 [facility] Comment on above: Fasting Glucose resu lt from 100 to 125 mg/dL suggests IMPAIRED HOMEOSTASIS per A.D.A. criteria. Hemoglobin (Bld) [Mass/Vol] 12.0 g/dL 12.0-15.0 [facility] Monocytes/100 WBC (Bld) 6.4 % 0-10 [facility] Neutrophils (Bld) [#/Vol] 3.1 10*3/uL 2.0-7.7 [facility] Neutrophils/100 WBC (Bld) 49.8 % 47-70 [facility] Potassium [Moles/Vol] 4.0 mmol/L 3.5-5.1 [facility] Sodium [Moles/Vol] 141 mmol/L 136-145 [facility] WBC (Bld) [#/Vol] 6.2 10*3/uL 4.4-11.0 [facility] Determination of erythrocyte mean corpuscular volume (MCV)Ordered By: Katalina Torres on 10-24-2023 MCV (RBC) [Entitic vol] 88.1 fL 81-99 [facility] Erythrocyte distribution wid th ratioOrdered By: Katalina Torres on 10-24-2023 Erythrocyte distribution width (RBC) [Ratio] 13.7 % 11.6-14.6 [facility] Erythrocyte distribution wid th standard deviationOrdered By: Katalina Torres on 10-24-2023 Erythrocyte distribution width (RBC) [Entitic vol] 44.2 fL 35.1-43.9 [facility] Hematocrit Auto (Bld) [Volum e fraction]Ordered By: Katalina Torres on 10-24-2023 Hematocrit (Bld) [Volume fraction] 37.1 % 37-47 [facility] Immature granulocytes/100 WB C Auto (Bld)Ordered By: Katalina Torres on 10-24-2023 Immature granulocytes/100 WBC (Bld) 0.200 % 0.0-0.9 [facility] Comment on above: IG% - Immature Granu locytes (promyelocytes, myelocytes and metamyelocytes) > 1% indicates that a LEFT SHIFT is Present. Laboratory - Chemistry and C hemistry - challengeOrdered By: Katalina Torres on 10-24-2023 CO2 [Moles/Vol] 28.0 mmol/L 21.0-32.0 [facility] Natriuretic peptide B (Bld) [Mass/Vol] 144.8 pg/mL 0-100 [facility] Urea nitrogen/Creatinine [Mass ratio] 15.5 mg/mg 10-20 [facility] Laboratory - Hematology and Cell countsOrdered By: Katalina Torres on 10-24-2023 MCH (RBC) [Entitic mass] 28.5 pg 27.0-32.0 [facility] MCHC (RBC) [Mass/Vol] 32.3 g/dL 32-36 [facility] Nucleated RBC/100 WBC (Bld) [Ratio] 0 % 0-5 [facility] Platelets (Bld) [#/Vol] 212 10*3/uL 150-450 [facility] No Panel InformationOrdered By: Katalina Torres on 10-24-2023 Estimated GFR (MDRD) Amer 66 mL/min >60 [facility] Comment on above: GFR Calc Estimated GFR (MDRD) Non-Af Amer 55 mL/min >60 [facility] Comment on above: Non- GFR Calc Platelet mean volume Frank-Ec ker (Bld) [Entitic vol]Ordered By: Katalina Torres on 10-24-2023 Platelet mean volume (Bld) [Entitic vol] 10.6 fL 6.2-12.0 [facility] RBC Auto (Bld) [#/Vol]Ordere d By: Katalina Torres on 10-24-2023 RBC (Bld) [#/Vol] 4.21 10*6/uL 4.2-5.[address] [facility] Serum or plasma calcium inga urement (mass/volume)Ordered By: Katalina Torres on 10-24-2023 Calcium [Mass/Vol] 9.6 mg/dL 8.5-10.1 [facility] Serum or plasma creatinine m easurement (mass/volume)Ordered By: Katalina Torres on 10-24-2023 Creatinine [Mass/Vol] 1.03 mg/dL 0.55-1.02 [facility] Comment on above: The validity of the calculated GFR & GFRAA in patients over 70 years has not been determined. Clinical correlation is essential. Serum or plasma urea nitroge n measurement (mass/volume)Ordered By: Katalina Torres on 10-24-2023 Urea nitrogen [Mass/Vol] 16 mg/dL 7-18 [facility] Thin prep Papanicolaou smear with manual screeningOrdered By: Katalina Torres on 10-24-2023 Thin prep Papanicolaou smear with manual screening 5 5-15 [facility] CT ABDOMEN/PELVIS W/CONTRAST on 09-23-2023 CT ABDOMEN/PELVIS W/CONTRAST ORIGINAL EXAMINATION: CT OF THE ABDOMEN AND PELVIS WITH [id number]/21/2023 11:28 am TECHNIQUE: CT of the abdomen [...] 09/23/2023 7:56:38 AM Ordering Provider: ROSALIND RUBALCAVA [facility] ([place]) .GFRon 09-22-2023 GFR 60 ml/min/1.73sqm Normal [facility] ([place]) Comment on above: Result Comment: GFR Population [...] ADIFF, CRP, TSH, CMP, ANEU, ESR #### [address] [address] GFR Non- 50 ml/min/1.73sqm Normal [facility] ([place]) Comment on above: Result Comment: GFR Population [...] CRP, TSH, CMP, ANEU, ESR #### [address] [place], [place] [address] CREon 09-22-2023 Creatinine [Mass/Vol] 1.06 mg/dL High 0.55-1.02 [facility] ([place]) Comment on above: Performed By: #### C BC, GFR, A1C, ADIFF, CRP, TSH, CMP, ANEU, ESR #### [address] [place], [place] [address] Absolute lymphocyte countOrd ered By: Judson Hernandez on 08-15-2023 Lymphocytes Auto (Unsp spec) [#/Vol] 2.44 10*3/uL 0.83-4.51 [facility] Basophil percentageOrdered B y: Judson Hernandez on 08-15-2023 Basophil percentage 91 mg/dL 74-106 [facility] Basophil percentage 144 mmol/L 136-145 [facility] Basophil percentage 3.5 mmol/L 3.5-5.1 [facility] Basophil percentage 113 mmol/L 98-107 [facility] Basophils (Bld) [#/Vol] 10.1 10*3/uL 4.4-11.0 [facility] Basophils (Bld) [#/Vol] 7.0 10*3/uL 2.0-7.7 [facility] Basophils/100 WBC (Bld) 69.3 % 47-70 [facility] Basophils/100 WBC (Bld) 1.2 % 0-5 [facility] Basophils/100 WBC (Bld) 0.3 % 0-1 [facility] Chloride [Moles/Vol] 113 mmol/L 98-107 [facility] Eosinophils/100 WBC (Bld) 1.2 % 0-5 [facility] Glucose [Mass/Vol] 91 mg/dL 74-106 [facility] Neutrophils (Bld) [#/Vol] 7.0 10*3/uL 2.0-7.7 [facility] Neutrophils/100 WBC (Bld) 69.3 % 47-70 [facility] Potassium [Moles/Vol] 3.5 mmol/L 3.5-5.1 [facility] Sodium [Moles/Vol] 144 mmol/L 136-145 [facility] WBC (Bld) [#/Vol] 10.1 10*3/uL 4.4-11.0 [facility] Blood erythrocytes count (nu mber/volume)Ordered By: Judson Hernandez on 08-15-2023 RBC (Bld) [#/Vol] 3.61 10*6/uL 4.2-5.4 [facility] Blood hemoglobin measurement (mass/volume)Ordered By: Judson Hernandez on 08-15-2023 Hemoglobin (Bld) [Mass/Vol] 10.5 g/dL 12.0-15.0 [facility] Blood lymphocytes/100 leukoc ytesOrdered By: Judson Hernandez on 08-15-2023 Lymphocytes/100 WBC (Bld) 24.2 % 19-41 [facility] Blood monocytes/100 leukocyt esOrdered By: Judson Hernandez on 08-15-2023 Monocytes/100 WBC (Bld) 4.8 % 0-10 [facility] Blood platelet mean volumeOr dered By: Judson Hernandez on 08-15-2023 Platelet mean volume (Bld) [Entitic vol] 9.6 fL 6.2-12.0 [facility] Determination of erythrocyte mean corpuscular volume (MCV)Ordered By: Judson Hernandez on 08-15-2023 MCV (RBC) [Entitic vol] 93.4 fL 81-99 [facility] Glucose Glucometer (BldC) [M ass/Vol]Ordered By: Cirilo Fine on 08-15-2023 Glucose [Mass/Vol] 181 mg/dL 74-106 [facility] Comment on above: MANAGEMENT OF PATIEN T CARE PER NURSING PROTOCOL Hematocrit Auto (Bld) [Volum e fraction]Ordered By: Judson Hernandez on 11-13-2023 Hematocrit (Bld) [Volume fraction] 33.7 % 37-47 [facility] Laboratory - Chemistry and C hemistry - challengeOrdered By: Judson Hernandez on 08-15-2023 CO2 [Moles/Vol] 29.0 mmol/L 21.0-32.0 [facility] Urea nitrogen/Creatinine [Mass ratio] 12.9 mg/mg 10-20 [facility] Laboratory - Hematology and Cell countsOrdered By: Judson Hernandez on 08-15-2023 Erythrocyte distribution width (RBC) [Entitic vol] 43.9 fL 35.1-43.9 [facility] Erythrocyte distribution width (RBC) [Ratio] 12.9 % 11.6-14.6 [facility] Immature granulocytes/100 WBC (Bld) 0.200 % 0.0-0.9 [facility] Comment on above: IG% - Immature Granu locytes (promyelocytes, myelocytes and metamyelocytes) > 1% indicates that a LEFT SHIFT is Present. MCH (RBC) [Entitic mass] 29.1 pg 27.0-32.0 [facility] Nucleated RBC/100 WBC (Bld) [Ratio] 0 % 0-5 [facility] MCHC Auto (RBC) [Mass/Vol]Or dered By: Judson Hernandez on 08-15-2023 MCHC (RBC) [Mass/Vol] 31.2 g/dL 32-36 [facility] No Panel InformationOrdered By: Judson Hernandez on 08-15-2023 Estimated Creatinine Clearance Calc 40.58 ml/min [facility] Estimated GFR (MDRD) Amer 82 mL/min >60 [facility] Comment on above: GFR Calc Estimated GFR (MDRD) Non-Af Amer 68 mL/min >60 [facility] Comment on above: Non- GFR Calc 29.1 pg 27.0-32.0 [facility] 12.9 % 11.6-14.6 [facility] 43.9 fl 35.1-43.9 [facility] 0.200 % 0.0-0.9 [facility] 0 % 0-5 [facility] 68 mL/min >60 [facility] 82 mL/min >60 [facility] 40.58 ml/min [facility] 12.9 RATIO 10-20 [facility] 29.0 mmol/L 21.0-32.0 [facility] Platelets bldOrdered By: Cristian Hernandez on 08-15-2023 Platelets (Bld) [#/Vol] 241 10*3/uL 150-450 [facility] Serum or plasma calcium inga urement (mass/volume)Ordered By: Judson Hernandez on 08-15-2023 Calcium [Mass/Vol] 8.5 mg/dL 8.5-10.1 [facility] Serum or plasma creatinine m easurement (mass/volume)Ordered By: Judson Hernandez on 08-15-2023 Creatinine [Mass/Vol] 0.86 mg/dL 0.55-1.02 [facility] Comment on above: The validity of the calculated GFR & GFRAA in patients over 70 years has not been determined. Clinical correlation is essential. Serum or plasma urea nitroge n measurement (mass/volume)Ordered By: Judson Hernandez on 08-15-2023 Urea nitrogen [Mass/Vol] 11 mg/dL 7-18 [facility] Thin prep Papanicolaou smear with manual screeningOrdered By: Judson Hernandez on 08-15-2023 Thin prep Papanicolaou smear with manual screening 2 5-15 [facility] Absolute lymphocyte countOrd ered By: Enrrique Eric on 08-14-2023 Lymphocytes Auto (Unsp spec) [#/Vol] 0.89 10*3/uL 0.83-4.51 [facility] Basophil percentageOrdered B y: Enrrique Eric on 08-14-2023 Basophil percentage 0 SEEN /hpf 0-5 [facility] Basophil percentage 209 mg/dL 74-106 [facility] Basophil percentage 7.6 g/dL 6.4-8.2 [facility] Basophil percentage 0.50 mg/dL 0.20-1.00 [facility] Basophil percentage 138 mmol/L 136-145 [facility] Basophil percentage 3.5 mmol/L 3.5-5.1 [facility] Basophil percentage 105 mmol/L 98-107 [facility] Basophil percentage 1.8 mmol/L 0.4-2.0 [facility] Basophils (Bld) [#/Vol] 12.5 10*3/uL 4.4-11.0 [facility] Basophils (Bld) [#/Vol] 11.0 10*3/uL 2.0-7.7 [facility] Basophils/100 WBC (Bld) 88.1 % 47-70 [facility] Basophils/100 WBC (Bld) 0.2 % 0-5 [facility] Basophils/100 WBC (Bld) 0.3 % 0-1 [facility] Bilirubin [Mass/Vol] 0.50 mg/dL 0.20-1.00 [facility] Comment on above: For patients on eltr ombopag therapy, use of Dimension [place] TBIL is not recommended. Lactate [Moles/Vol] 1.8 mmol/L 0.4-2.0 [facility] Protein [Mass/Vol] 7.6 g/dL 6.4-8.2 [facility] Bilirubin Test strip Ql (U)O rdered By: Enrrique Eric on 08-14-2023 Bilirubin Ql (U) Negative Negative [facility] Blood erythrocytes count (nu mber/volume)Ordered By: Enrrique Eric on 08-14-2023 RBC (Bld) [#/Vol] 4.77 10*6/uL 4.2-5.4 [facility] Blood hemoglobin measurement (mass/volume)Ordered By: Enrrique Eric on 08-14-2023 Hemoglobin (Bld) [Mass/Vol] 13.9 g/dL 12.0-15.0 [facility] Blood lymphocytes/100 leukoc ytesOrdered By: Enrrique Eric on 08-14-2023 Lymphocytes/100 WBC (Bld) 7.1 % 19-41 [facility] Blood monocytes/100 leukocyt esOrdered By: Enrrique Eric on 08-14-2023 Monocytes/100 WBC (Bld) 3.7 % 0-10 [facility] Blood platelet mean volumeOr dered By: Enrrique Eric on 08-14-2023 Platelet mean volume (Bld) [Entitic vol] 10.0 fL 6.2-12.0 [facility] Determination of erythrocyte mean corpuscular volume (MCV)Ordered By: Enrrique Eric on 08-14-2023 MCV (RBC) [Entitic vol] 89.7 fL 81-99 [facility] Direct bilirubinOrdered By: Enrrique Eric on 08-14-2023 Bilirubin.direct [Mass/Vol] 0.07 mg/dL 0.00-0.30 [facility] Hematocrit Auto (Bld) [Volum e fraction]Ordered By: Enrrique Eric on 08-14-2023 Hematocrit (Bld) [Volume fraction] 42.8 % 37-47 [facility] INR in Blood by Coagulation assayOrdered By: Enrrique Eric on 08-14-2023 INR Coag (Bld) [Relative time] 1.3 {INR} [facility] Influenza virus A and B and SARS-CoV-2 (COVID-19) Ag panel - Upper respiratory specimOrdered By: Enrrique Eric on 08-14-2023 SARS-CoV-2 (COVID-19) RNA PACHECO+probe Ql (Resp) [facility] Ketones Test strip Ql (U)Ord ered By: Enrrique Eric on 08-14-2023 Ketones Ql (U) 5 mg/dl Negative [facility] Laboratory - Chemistry and C hemistry - challengeOrdered By: Enrrique Eric on 08-14-2023 ALP [Catalytic activity/Vol] 98 U/L 45-117 [facility] ALT [Catalytic activity/Vol] 14 U/L 13-56 [facility] Globulin (S) [Mass/Vol] 4.8 g/dL 2.2-4.2 [facility] Lipase [Catalytic activity/Vol] 17 U/L 13-75 [facility] Comment on above: Please note:LIPASE r evised reference range effective 23. New Lipase methodology. Expected to produce lower values than the previous assay method. NEW Reference Range: 13 - 75 U/L Laboratory - CoagulationOrde red By: Enrrique Eric on 08-14-2023 aPTT Coag (Bld) [Time] 28.7 s 24.1-36.[address] [facility] PT Coag (PPP) [Time] 16.3 s 11.7-14.9 [facility] Laboratory - Microbiology an d Antimicrobial susceptibilityOrdered By: Enrrique Eric on 08-14-2023 Bacteria identified Cx Nom (Bld) No growth in 5 days. [facility] MCHC Auto (RBC) [Mass/Vol]Or dered By: Enrrique Eric on 08-14-2023 MCHC (RBC) [Mass/Vol] 32.5 g/dL 32-36 [facility] Mucus LM Ql (Urine sed)Order ed By: Enrrique Eric on 08-14-2023 Mucus Ql (Urine sed) 0 SEEN /hpf [facility] Nitrite Test strip Ql (U)Ord ered By: Enrrique Eric on 08-14-2023 Nitrite Ql (U) Negative Negative [facility] No Panel InformationOrdered By: Enrrique Eric on 08-14-2023 29.1 pg 27.0-32.0 [facility] 12.5 % 11.6-14.6 [facility] 41.1 fl 35.1-43.9 [facility] 0.600 % 0.0-0.9 [facility] 0 % 0-5 [facility] 16.3 SECONDS 11.7-14.9 [facility] 28.7 Seconds 24.1-36.2 [facility] 58 mL/min >60 [facility] 70 mL/min >60 [facility] 11.2 RATIO 10-20 [facility] 4.8 g/dL 2.2-4.2 [facility] 17 U/L 13-75 [facility] 98 U/L 45-117 [facility] 14 U/L 13-56 [facility] 27.0 mmol/L 21.0-32.0 [facility] Platelets bldOrdered By: Yvon Eric on 08-14-2023 Platelets (Bld) [#/Vol] 294 10*3/uL 150-450 [facility] Protein Test strip Ql (U)Ord ered By: Enrrique Eric on 08-14-2023 Protein Ql (U) 30 mg/dl Negative [facility] Serum or plasma albumin inga urement (mass/volume)Ordered By: Enrrique Eric on 08-14-2023 Albumin [Mass/Vol] 2.8 g/dL 3.2-5.0 [facility] Serum or plasma calcium inga urement (mass/volume)Ordered By: Enrrique Eric on 08-14-2023 Calcium [Mass/Vol] 9.2 mg/dL 8.5-10.1 [facility] Serum or plasma creatinine m easurement (mass/volume)Ordered By: Enrrique Eric on 08-14-2023 Creatinine [Mass/Vol] 0.98 mg/dL 0.55-1.02 [facility] Serum or plasma urea nitroge n measurement (mass/volume)Ordered By: Enrrique Eric on 08-14-2023 Urea nitrogen [Mass/Vol] 11 mg/dL 7-18 [facility] Squamous epithelial cells de tection in urine sediment by light microscopyOrdered By: Enrrique Eric on 08-14-2023 Epithelial cells.squamous LM Ql (Urine sed) 0 SEEN /hpf 5-10 [facility] Stool enteric pathogen panel by probe and target amplification methodOrdered By: Judson Hernandez on 08-14-2023 Gastrointestinal pathogens panel PACHECO+probe (Stl) [facility] Thin prep Papanicolaou smear with manual screeningOrdered By: Enrrique Eric on 08-14-2023 Thin prep Papanicolaou smear with manual screening 22 U/L 15-37 [facility] Comment on above: Moderate Hemolysis, Result may be falsely increased. Thin prep Papanicolaou smear with manual screening 6 5-15 [facility] Upper respiratory specimen i nfluenza A virus, influenza B virus, and severe acute respiratory syndromOrdered By: Enrrique Eric on 08-14-2023 Upper respiratory specimen influenza A virus, influenza B virus, and severe acute respiratory syndrom [facility] Urine blood detectionOrdered By: Enrrique Eric on 08-14-2023 RBC Ql (U) 25 /ul Negative [facility] RBC Ql (U) 0 SEEN /hpf 0-5 [facility] Urine clarityOrdered By: Yvon Eric on 08-14-2023 Clarity (U) Clear Clear [facility] Urine color determinationOrd ered By: Enrrique Eric on 08-14-2023 Color (U) Yellow Yellow [facility] Urine glucose detectionOrder ed By: Enrrique Eric on 08-14-2023 Glucose Ql (U) 100 mg/dl Normal [facility] Urine leukocyte esterase det ection by dipstickOrdered By: Enrrique Eric on 08-14-2023 Leukocyte esterase Test strip Ql (U) Negative Negative [facility] Urine pHOrdered By: Enrrique horan on 08-14-2023 pH (U) 6.0 [pH] 5.0 - 8.0 [facility] Urine sediment bacteria coun t by microscopy (number/high power field)Ordered By: Enrrique Eric on 08-14-2023 Bacteria LM.HPF (Urine sed) [#/Area] 0 /[HPF] None Seen [facility] Urine specific gravity measu rementOrdered By: Enrrique Eric on 08-14-2023 Specific gravity (U) [Rel density] 1.020 1.002-1.030 [facility] Urobilinogen Auto test strip Ql (U)Ordered By: Enrrique Eric on 08-14-2023 Urobilinogen Ql (U) Normal mg/dl Normal [facility] No Panel Informationon 08-09 Culture Urine >100,000 cfu/ml Multiple bacterial morphotypes present. Probable Contamination. Suggest recollection if clinically indicated. [facility] Work Phone: .Auto Diffon 08-04-2023 Basophil, Absolute 0.1 10 3/mcL Normal 0.0-0.2 [facility] ([place]) Comment on above: Performed By: #### C BC, GFR, A1C, ADIFF, CRP, TSH, CMP, ANEU, ESR #### [id number] [place], [place] [address] Basophils/100 WBC (Bld) 0.7 % Normal 0.0-2.5 A [facility] ([place]) Comment on above: Performed By: #### C BC, GFR, A1C, ADIFF, CRP, TSH, CMP, ANEU, ESR #### [id number] [place], [place] [address] Eosinophil, Absolute 0.3 10 3/mcL Normal 0.0-0.4 [facility] ([place]) Comment on above: Performed By: #### C BC, GFR, A1C, ADIFF, CRP, TSH, CMP, ANEU, ESR #### [address] [address] Eosinophils/100 WBC (Bld) 4.2 % Normal 0.0-7.0 [facility] ([place]) Comment on above: Performed By: #### C BC, GFR, A1C, ADIFF, CRP, TSH, CMP, ANEU, ESR #### [address] [address] Lymphocyte, Absolute 2.2 10 3/mcL Normal 0.8-3.9 [facility] ([place]) Comment on above: Performed By: #### C BC, GFR, A1C, ADIFF, CRP, TSH, CMP, ANEU, ESR #### [address] [address] Lymphocytes/100 WBC (Bld) 28.9 % Normal 10.0-50.0 [facility] ([place]) Comment on above: Performed By: #### C BC, GFR, A1C, ADIFF, CRP, TSH, CMP, ANEU, ESR #### [address] [address] Monocyte, Absolute 0.4 10 3/mcL Normal 0.2-1.0 [facility] ([place]) Comment on above: Performed By: #### C BC, GFR, A1C, ADIFF, CRP, TSH, CMP, ANEU, ESR #### [address] [address] Monocytes/100 WBC (Bld) 5.1 % Normal 1.7-13.0 [facility] ([place]) Comment on above: Performed By: #### C BC, GFR, A1C, ADIFF, CRP, TSH, CMP, ANEU, ESR #### [address] [address] Neutrophils/100 WBC (Bld) 61.1 % Normal 37.0-80.0 [facility] ([place]) Comment on above: Performed By: #### C BC, GFR, A1C, ADIFF, CRP, TSH, CMP, ANEU, ESR #### [address] [address] .GFRon 08-04-2023 GFR 62 ml/min/1.73sqm Normal [facility] ([place]) Comment on above: Result Comment: GFR Population [...] ADIFF, CRP, TSH, CMP, ANEU, ESR #### [address] [address] GFR Non- 51 ml/min/1.73sqm Normal [facility] ([place]) Comment on above: Result Comment: GFR Population [...] ADIFF, CRP, TSH, CMP, ANEU, ESR #### [address] [address] .NEUABSon 08-04-2023 Neutrophil, Absolute 4.6 10 3/mcL Normal 2.9-6.2 [facility] ([place]) Comment on above: Performed By: #### C BC, GFR, A1C, ADIFF, CRP, TSH, CMP, ANEU, ESR #### [address] [address] A1Con 08-04-2023 HbA1c (Bld) [Mass fraction] 5.8 % Normal 4.3-6.4 [facility] ([place]) Comment on above: Performed By: #### C BC, GFR, A1C, ADIFF, CRP, TSH, CMP, ANEU, ESR #### [address] [address] CBCon 08-04-2023 Erythrocyte distribution width (RBC) [Ratio] 13.5 % Normal 11.5-14.5 [facility] ([place]) Comment on above: Performed By: #### C BC, GFR, A1C, ADIFF, CRP, TSH, CMP, ANEU, ESR #### [address] [address] Hematocrit (Bld) [Volume fraction] 36.2 % Low 37.0-47.0 [facility] ([place]) Comment on above: Performed By: #### C BC, GFR, A1C, ADIFF, CRP, TSH, CMP, ANEU, ESR #### [address] [address] Hgb 12.2 G/dL Normal 12.0-16.0 [facility] ([place]) Comment on above: Performed By: #### C BC, GFR, A1C, ADIFF, CRP, TSH, CMP, ANEU, ESR #### [address] [address] MCH (RBC) [Entitic mass] 29.3 pg Normal 27.0-31.2 [facility] ([place]) Comment on above: Performed By: #### C BC, GFR, A1C, ADIFF, CRP, TSH, CMP, ANEU, ESR #### [place] [id number] MCHC 33.6 G/dL Normal 33.0-37.0 [facility] ([place]) Comment on above: Performed By: #### C BC, GFR, A1C, ADIFF, CRP, TSH, CMP, ANEU, ESR #### [address] [address] MCV (RBC) [Entitic vol] 87.3 fL Normal 80.0-94.0 A [facility] ([place]) Comment on above: Performed By: #### C BC, GFR, A1C, ADIFF, CRP, TSH, CMP, ANEU, ESR #### [address] [address] Platelet 303 10 3/mcL Normal 130-400 [facility] ([place]) Comment on above: Performed By: #### C BC, GFR, A1C, ADIFF, CRP, TSH, CMP, ANEU, ESR #### [address] [address] Platelet mean volume (Bld) [Entitic vol] 8.0 fL Normal 7.4-10.4 [facility] ([place]) Comment on above: Performed By: #### C BC, GFR, A1C, ADIFF, CRP, TSH, CMP, ANEU, ESR #### [address] [address] RBC 4.15 10 6/mcL Low 4.20-5.40 [facility] ([place]) Comment on above: Performed By: #### C BC, GFR, A1C, ADIFF, CRP, TSH, CMP, ANEU, ESR #### [address] [address] WBC 7.5 10 3/mcL Normal 4.6-10.8 [facility] ([place]) Comment on above: Performed By: #### C BC, GFR, A1C, ADIFF, CRP, TSH, CMP, ANEU, ESR #### [address] [address] CMPon 08-04-2023 Albumin Level 2.9 G/dL Low 3.4-4.8 [facility] ([place]) Comment on above: Performed By: #### C BC, GFR, A1C, ADIFF, CRP, TSH, CMP, ANEU, ESR #### [address] [address] Albumin/Globulin [Mass ratio] 0.7 {ratio} Low 1.1-2.5 [facility] ([place]) Comment on above: Performed By: #### C BC, GFR, A1C, ADIFF, CRP, TSH, CMP, ANEU, ESR #### [address] [address] ALP [Catalytic activity/Vol] 113 U/L Normal 40-135 [facility] ([place]) Comment on above: Performed By: #### C BC, GFR, A1C, ADIFF, CRP, TSH, CMP, ANEU, ESR #### [place] [id number] ALT [Catalytic activity/Vol] 15 U/L Normal 14-59 [facility] ([place]) Comment on above: Performed By: #### C BC, GFR, A1C, ADIFF, CRP, TSH, CMP, ANEU, ESR #### [place] [id number] AST [Catalytic activity/Vol] 16 U/L Normal 10-40 [facility] ([place]) Comment on above: Performed By: #### C BC, GFR, A1C, ADIFF, CRP, TSH, CMP, ANEU, ESR #### [address] [address] Bili Total 0.4 mg/dL Normal 0.2-1.0 [facility] ([place]) Comment on above: Result Comment: Use of this assay is not recommended for patients undergoing treatment with eltrombopag due to the potential for falsely elevated results. Performed By: #### C BC, GFR, A1C, ADIFF, CRP, TSH, CMP, ANEU, ESR #### [place] [id number] BUN/Creatinine Ratio 12 ratio Normal 7-27 [facility] ([place]) Comment on above: Performed By: #### C BC, GFR, A1C, ADIFF, CRP, TSH, CMP, ANEU, ESR #### [address] [address] Calcium [Mass/Vol] 9.4 mg/dL Normal 8.4-10.2 [facility] ([place]) Comment on above: Performed By: #### C BC, GFR, A1C, ADIFF, CRP, TSH, CMP, ANEU, ESR #### [address] [address] Chloride [Moles/Vol] 107 mmol/L Normal 98-107 [facility] ([place]) Comment on above: Performed By: #### C BC, GFR, A1C, ADIFF, CRP, TSH, CMP, ANEU, ESR #### [address] [address] CO2 [Moles/Vol] 26 mmol/L Normal 23-31 [facility] ([place]) Comment on above: Performed By: #### C BC, GFR, A1C, ADIFF, CRP, TSH, CMP, ANEU, ESR #### [address] [address] Creatinine [Mass/Vol] 1.04 mg/dL High 0.55-1.02 [facility] ([place]) Comment on above: Performed By: #### C BC, GFR, A1C, ADIFF, CRP, TSH, CMP, ANEU, ESR #### [address] [address] Electrolyte Balance 13.0 mEq/L Normal 4.0-15.0 [facility] ([place]) Comment on above: Performed By: #### C BC, GFR, A1C, ADIFF, CRP, TSH, CMP, ANEU, ESR #### [address] [address] Globulin 4.3 G/dL Normal [facility] ([place]) Comment on above: Performed By: #### C BC, GFR, A1C, ADIFF, CRP, TSH, CMP, ANEU, ESR #### [address] [address] Glucose [Mass/Vol] 111 mg/dL High 83-110 [facility] ([place]) Comment on above: Performed By: #### C BC, GFR, A1C, ADIFF, CRP, TSH, CMP, ANEU, ESR #### [address] [address] Potassium [Moles/Vol] 3.6 mmol/L Normal 3.5-5.1 [facility] ([place]) Comment on above: Performed By: #### C BC, GFR, A1C, ADIFF, CRP, TSH, CMP, ANEU, ESR #### [address] [address] Sodium [Moles/Vol] 146 mmol/L High 136-145 [facility] ([place]) Comment on above: Performed By: #### C BC, GFR, A1C, ADIFF, CRP, TSH, CMP, ANEU, ESR #### [address] [address] Total Protein 7.2 G/dL Normal 6.4-8.2 [facility] ([place]) Comment on above: Performed By: #### C BC, GFR, A1C, ADIFF, CRP, TSH, CMP, ANEU, ESR #### [address] [address] Urea nitrogen [Mass/Vol] 13 mg/dL Normal 7-18 [facility] ([place]) Comment on above: Performed By: #### C BC, GFR, A1C, ADIFF, CRP, TSH, CMP, ANEU, ESR #### [address] [address] FT4on 08-04-2023 Free T4 [Mass/Vol] 1.12 ng/dL Normal 0.76-1.46 [facility] ([place]) Comment on above: Performed By: #### C BC, GFR, A1C, ADIFF, CRP, TSH, CMP, ANEU, ESR #### [address] [address] LIPIDon 08-04-2023 Cholesterol [Mass/Vol] 165 mg/dL Normal 0-200 [facility] ([place]) Comment on above: Result Comment: Chol esterol Reference Interval: Less than 200 Desirable 200-239 Borderline high risk 240 and above High risk Performed By: #### C BC, GFR, A1C, ADIFF, CRP, TSH, CMP, ANEU, ESR #### [address] [address] Cholesterol in HDL [Mass/Vol] 54 mg/dL Normal 40-60 [facility] ([place]) Comment on above: Performed By: #### C BC, GFR, A1C, ADIFF, CRP, TSH, CMP, ANEU, ESR #### [address] [address] Cholesterol in LDL [Mass/Vol] 94 mg/dL Normal 0-130 [facility] ([place]) Comment on above: Performed By: #### C BC, GFR, A1C, ADIFF, CRP, TSH, CMP, ANEU, ESR #### [id number] [place], [place] [address] Triglyceride [Mass/Vol] 84 mg/dL Normal 0-150 [facility] ([place]) Comment on above: Result Comment: Trig lyceride Reference Interval: Less than 150 Normal 150-199 Borderline high risk 200-499 High risk 500 or higher Very high risk Performed By: #### C BC, GFR, A1C, ADIFF, CRP, TSH, CMP, ANEU, ESR #### [address] [address] TSHon 08-04-2023 TSH Qn 2.48 m[IU]/L Normal 0.36-3.74 [facility] ([place]) Comment on above: Performed By: #### C BC, GFR, A1C, ADIFF, CRP, TSH, CMP, ANEU, ESR #### [address] [address] Glucose Glucometer (BldC) [M ass/Vol]Ordered By: Senthil Ortiz on 06-10-2023 Glucose [Mass/Vol] 107 mg/dL 74-106 [facility] Comment on above: MANAGEMENT OF PATIEN T CARE PER NURSING PROTOCOL Absolute lymphocyte countOrd ered By: Senthil Ortiz on 06-08-2023 Lymphocytes Auto (Unsp spec) [#/Vol] 6.05 10*3/uL 0.83-4.51 [facility] Basophil percentageOrdered B y: Senthil Ortiz on 06-08-2023 Basophil percentage 103 mg/dL 74-106 [facility] Basophil percentage 139 mmol/L 136-145 [facility] Basophil percentage 3.5 mmol/L 3.5-5.1 [facility] Basophil percentage 109 mmol/L 98-107 [facility] Basophils (Bld) [#/Vol] 11.0 10*3/uL 4.4-11.0 [facility] Basophils (Bld) [#/Vol] 4.3 10*3/uL 2.0-7.7 [facility] Basophils/100 WBC (Bld) 0.3 % 0-1 [facility] Basophils/100 WBC (Bld) 39.0 % 47-70 [facility] Basophils/100 WBC (Bld) 1.0 % 0-5 [facility] Chloride [Moles/Vol] 109 mmol/L 98-107 [facility] Eosinophils/100 WBC (Bld) 1.0 % 0-5 [facility] Glucose [Mass/Vol] 103 mg/dL 74-106 [facility] Comment on above: Fasting Glucose resu lt from 100 to 125 mg/dL suggests IMPAIRED HOMEOSTASIS per A.D.A. criteria. Neutrophils (Bld) [#/Vol] 4.3 10*3/uL 2.0-7.7 [facility] Neutrophils/100 WBC (Bld) 39.0 % 47-70 [facility] Potassium [Moles/Vol] 3.5 mmol/L 3.5-5.1 [facility] Sodium [Moles/Vol] 139 mmol/L 136-145 [facility] WBC (Bld) [#/Vol] 11.0 10*3/uL 4.4-11.0 [facility] Blood erythrocytes count (nu mber/volume)Ordered By: Senthil Ortiz on 06-08-2023 RBC (Bld) [#/Vol] 4.40 10*6/uL 4.2-5.4 [facility] Blood hemoglobin measurement (mass/volume)Ordered By: Senthil Ortiz on 06-08-2023 Hemoglobin (Bld) [Mass/Vol] 13.4 g/dL 12.0-15.0 [facility] Blood lymphocytes/100 leukoc ytesOrdered By: Senthil Ortiz on 06-08-2023 Lymphocytes/100 WBC (Bld) 55.0 % 19-41 [facility] Blood monocytes/100 leukocyt esOrdered By: Senthil Ortiz on 06-08-2023 Monocytes/100 WBC (Bld) 4.5 % 0-10 [facility] Blood platelet mean volumeOr dered By: Senthil Ortiz on 06-08-2023 Platelet mean volume (Bld) [Entitic vol] 9.4 fL 6.2-12.0 [facility] Determination of erythrocyte mean corpuscular volume (MCV)Ordered By: Senthil Ortiz on 06-08-2023 MCV (RBC) [Entitic vol] 91.4 fL 81-99 [facility] Hematocrit Auto (Bld) [Volum e fraction]Ordered By: Senthil Ortiz on 06-08-2023 Hematocrit (Bld) [Volume fraction] 40.2 % 37-47 [facility] Laboratory - Chemistry and C hemistry - challengeOrdered By: Senthil Ortiz 06-08-2023 CO2 [Moles/Vol] 23.0 mmol/L 21.0-32.0 [facility] Urea nitrogen/Creatinine [Mass ratio] 19.3 mg/mg 10-20 [facility] Laboratory - Hematology and Cell countsOrdered By: Senthil Ortiz 06-08-2023 Erythrocyte distribution width (RBC) [Entitic vol] 45.3 fL 35.1-43.9 [facility] Erythrocyte distribution width (RBC) [Ratio] 13.5 % 11.6-14.6 [facility] Immature granulocytes/100 WBC (Bld) 0.200 % 0.0-0.9 [facility] Comment on above: IG% - Immature Granu locytes (promyelocytes, myelocytes and metamyelocytes) > 1% indicates that a LEFT SHIFT is Present. [facility] (RBC) [Entitic mass] 30.5 pg 27.0-32.0 [facility] Nucleated RBC/100 WBC (Bld) [Ratio] 0 % 0-5 [facility] MCHC Auto (RBC) [Mass/Vol]Or dered By: Senthil Ortiz on 06-08-2023 MCHC (RBC) [Mass/Vol] 33.3 g/dL 32-36 [facility] No Panel InformationOrdered By: Senthil Ortiz on 06-08-2023 Estimated Creatinine Clearance Calc 31.13 ml/min [facility] Estimated GFR (MDRD) Amer 59 mL/min >60 [facility] Comment on above: GFR Calc Estimated GFR (MDRD) Non-Af Amer 49 mL/min >60 [facility] Comment on above: Non- GFR Calc 30.5 pg 27.0-32.0 [facility] 13.5 % 11.6-14.6 [facility] 45.3 fl 35.1-43.9 [facility] 0.200 % 0.0-0.9 [facility] 0 % 0-5 [facility] 49 mL/min >60 [facility] 59 mL/min >60 [facility] 31.13 ml/min [facility] 19.3 RATIO 10-20 [facility] 23.0 mmol/L 21.0-32.0 [facility] Platelets bldOrdered By: Senthil Ortiz on 06-08-2023 Platelets (Bld) [#/Vol] 374 10*3/uL 150-450 [facility] Serum or plasma calcium inga urement (mass/volume)Ordered By: Senthil Ortiz on 06-08-2023 Calcium [Mass/Vol] 9.5 mg/dL 8.5-10.1 [facility] Serum or plasma creatinine m easurement (mass/volume)Ordered By: Senthil Ortiz on 06-08-2023 Creatinine [Mass/Vol] 1.14 mg/dL 0.55-1.02 [facility] Comment on above: The validity of the calculated GFR & GFRAA in patients over 70 years has not been determined. Clinical correlation is essential. Serum or plasma urea nitroge n measurement (mass/volume)Ordered By: Senthil Ortiz on 06-08-2023 Urea nitrogen [Mass/Vol] 22 mg/dL 7-18 [facility] Thin prep Papanicolaou smear with manual screeningOrdered By: Senthil Ortiz on 06-08-2023 Thin prep Papanicolaou smear with manual screening 7 5-15 [facility] Bacteria identified Cx Nom ( U)Ordered By: Senthil Ortiz on 05-31-2023 Culture, urine Escherichia coli [facility] Culture, urine Vancomycin Resist. E . faecalis [facility] Culture, urine Aerococcus viridans. [facility] Basophil percentageOrdered B y: Senthil Ortiz on 05-31-2023 Basophil percentage 0 SEEN /hpf 0-5 [facility] Bilirubin Test strip Ql (U)O rdered By: Senthil Ortiz on 05-31-2023 Bilirubin Ql (U) Negative Negative [facility] COVID-19 virus antigen assay Ordered By: Senthil Ortiz on 05-31-2023 SARS-CoV-2 (COVID-19) Ag IA.rapid Ql (Resp) [facility] SARS-CoV-2 (COVID-19) Ag IA.rapid Ql (Resp) [facility] Culture, urineOrdered By: Dariwn Ortiz on 05-31-2023 Bacteria identified Cx Nom (U) Escherichia coli [facility] Bacteria identified Cx Nom (U) Vancomycin Resist. E. faecalis [facility] Bacteria identified Cx Nom (U) Aerococcus viridans. [facility] Ketones Test strip Ql (U)Ord ered By: Senthil Ortiz on 05-31-2023 Ketones Ql (U) Negative Negative [facility] Mucus LM Ql (Urine sed)Order ed By: Senthil Ortiz on 05-31-2023 Mucus Ql (Urine sed) 0 SEEN /hpf [facility] Nitrite Test strip Ql (U)Ord ered By: Senthil Ortiz on 05-31-2023 Nitrite Ql (U) Negative Negative [facility] Protein Test strip Ql (U)Ord ered By: Senthil Ortiz on 05-31-2023 Protein Ql (U) Negative Negative [facility] Squamous epithelial cells de tection in urine sediment by light microscopyOrdered By: Senthil Ortiz on 05-31-2023 Epithelial cells.squamous LM Ql (Urine sed) 0 SEEN /hpf 5-10 [facility] Urine blood detectionOrdered By: Senthil Ortiz on 05-31-2023 RBC Ql (U) Negative Negative [facility] RBC Ql (U) 0 SEEN /hpf 0-5 [facility] Urine clarityOrdered By: Senthil Ortiz on 05-31-2023 Clarity (U) Clear Clear [facility] Urine color determinationOrd ered By: Senthil Ortiz on 05-31-2023 Color (U) Yellow Yellow [facility] Urine glucose detectionOrder ed By: Senthil Ortiz on 05-31-2023 Glucose Ql (U) Normal mg/dl Normal [facility] Urine leukocyte esterase det ection by dipstickOrdered By: Senthil Ortiz on 05-31-2023 Leukocyte esterase Test strip Ql (U) Negative Negative [facility] Urine pHOrdered By: Senthil Ortiz on 05-31-2023 pH (U) 6.0 [pH] 5.0 - 8.0 [facility] Urine sediment bacteria coun t by microscopy (number/high power field)Ordered By: Senthil Ortiz on 05-31-2023 Bacteria LM.HPF (Urine sed) [#/Area] 0 /[HPF] None Seen [facility] Urine specific gravity measu rementOrdered By: Senthil Ortiz on 05-31-2023 Specific gravity (U) [Rel density] 1.010 1.002-1.030 [facility] Urobilinogen Auto test strip Ql (U)Ordered By: Senthil Ortiz on 05-31-2023 Urobilinogen Ql (U) Normal mg/dl Normal [facility] Clostridium difficile detect ion by polymerase chain reactionOrdered By: Senthil Ortiz on 05-29-2023 C. difficile DNA PACHECO+probe Ql (Unsp spec) [facility] C. difficile DNA PACHECO+probe Ql (Unsp spec) [facility] Basophil percentageOrdered B y: Alee Yao on 05-17-2023 Basophil percentage 129 mg/dL 74-106 [facility] Basophil percentage 6.9 g/dL 6.4-8.2 [facility] Basophil percentage 0.70 mg/dL 0.20-1.00 [facility] Basophil percentage 143 mmol/L 136-145 [facility] Basophil percentage 3.2 mmol/L 3.5-5.1 [facility] Basophil percentage 110 mmol/L 98-107 [facility] Bilirubin [Mass/Vol] 0.70 mg/dL 0.20-1.00 [facility] Comment on above: For patients on eltr ombopag therapy, use of Dimension [place] TBIL is not recommended. Chloride [Moles/Vol] 110 mmol/L 98-107 [facility] Glucose [Mass/Vol] 129 mg/dL 74-106 [facility] Comment on above: Fasting Glucose resu lt greater than or equal to 126 mg/dL suggests DIABETES MELLITUS per A.D.A. criteria. Potassium [Moles/Vol] 3.2 mmol/L 3.5-5.1 [facility] Protein [Mass/Vol] 6.9 g/dL 6.4-8.2 [facility] Sodium [Moles/Vol] 143 mmol/L 136-145 [facility] Glucose Glucometer (BldC) [M ass/Vol]Ordered By: Alee Yao on 05-17-2023 Glucose [Mass/Vol] 204 mg/dL 74-106 [facility] Comment on above: MANAGEMENT OF PATIEN T CARE PER NURSING PROTOCOL Laboratory - Chemistry and C hemistry - challengeOrdered By: Alee Yao on 05-17-2023 ALP [Catalytic activity/Vol] 154 U/L [facility] ALT [Catalytic activity/Vol] 77 U/L [facility] CO2 [Moles/Vol] 26.0 mmol/L 21.0-32.0 [facility] Globulin (S) [Mass/Vol] 4.4 g/dL 2.2-4.2 [facility] Urea nitrogen/Creatinine [Mass ratio] 9.6 mg/mg - [facility] No Panel InformationOrdered By: Alee Yao on 05-17-2023 Estimated Creatinine Clearance Calc 30.86 ml/min [facility] Estimated GFR (MDRD) Amer 58 mL/min >60 [facility] Comment on above: GFR Calc Estimated GFR (MDRD) Non-Af Amer 48 mL/min >60 [facility] Comment on above: Non- GFR Calc 48 mL/min >60 [facility] 58 mL/min >60 [facility] 30.86 ml/min [facility] 9.6 RATIO 10- [facility] 4.4 g/dL 2.2-4.2 [facility] 154 U/L [facility] 77 U/L [facility] 26.0 mmol/L 21.0-32.0 [facility] Serum or plasma albumin inga urement (mass/volume)Ordered By: Alee Yao on 05-17-2023 Albumin [Mass/Vol] 2.5 g/dL 3.2-5.0 [facility] Serum or plasma albumin/glob ulin mass ratioOrdered By: Alee Yao on 05-17-2023 Albumin/Globulin [Mass ratio] 0.6 {ratio} 0.9-2.4 [facility] Serum or plasma calcium inga urement (mass/volume)Ordered By: Alee Yao on 05-17-2023 Calcium [Mass/Vol] 9.4 mg/dL 8.5-10.1 [facility] Serum or plasma creatinine m easurement (mass/volume)Ordered By: Alee Yao on 05-17-2023 Creatinine [Mass/Vol] 1.15 mg/dL 0.55-1.02 [facility] Comment on above: The validity of the calculated GFR & GFRAA in patients over 70 years has not been determined. Clinical correlation is essential. Serum or plasma urea nitroge n measurement (mass/volume)Ordered By: Alee Yao on 05-17-2023 Urea nitrogen [Mass/Vol] 11 mg/dL 7-18 [facility] Thin prep Papanicolaou smear with manual screeningOrdered By: Alee Yao on 05-17-2023 Thin prep Papanicolaou smear with manual screening 27 U/L 1537 [facility] Thin prep Papanicolaou smear with manual screening 7 -15 [facility] Absolute lymphocyte countOrd ered By: Alee Yao on 05-16-2023 Lymphocytes Auto (Unsp spec) [#/Vol] 2.07 10*3/uL 0.83-4.51 [facility] Basophil percentageOrdered B y: Alee Yao on 05-16-2023 Basophils (Bld) [#/Vol] 5.3 10*3/uL 4.4-11.0 [facility] Basophils (Bld) [#/Vol] 2.7 10*3/uL 2.0-7.7 [facility] Basophils/100 WBC (Bld) 0.9 % 0-1 [facility] Basophils/100 WBC (Bld) 51.4 % 47-70 [facility] Basophils/100 WBC (Bld) 2.6 % 0-5 [facility] Eosinophils/100 WBC (Bld) 2.6 % 0-5 [facility] Neutrophils (Bld) [#/Vol] 2.7 10*3/uL 2.0-7.7 [facility] Neutrophils/100 WBC (Bld) 51.4 % 47-70 [facility] WBC (Bld) [#/Vol] 5.3 10*3/uL 4.4-11.0 [facility] Blood erythrocytes count (nu mber/volume)Ordered By: Alee Yao on 05-16-2023 RBC (Bld) [#/Vol] 4.45 10*6/uL 4.2-5.4 [facility] Blood hemoglobin measurement (mass/volume)Ordered By: Alee Yao on 05-16-2023 Hemoglobin (Bld) [Mass/Vol] 13.2 g/dL 12.0-15.0 [facility] Blood lymphocytes/100 leukoc ytesOrdered By: Alee Yao on 05-16-2023 Lymphocytes/100 WBC (Bld) 39.1 % 19-41 [facility] Blood monocytes/100 leukocyt esOrdered By: Alee Yao on 05-16-2023 Monocytes/100 WBC (Bld) 5.8 % 0-10 [facility] Blood platelet mean volumeOr dered By: Alee Yao on 05-16-2023 Platelet mean volume (Bld) [Entitic vol] 10.7 fL 6.2-12.0 [facility] Determination of erythrocyte mean corpuscular volume (MCV)Ordered By: lAee Yao on 05-16-2023 MCV (RBC) [Entitic vol] 94.8 fL 81-99 [facility] Hematocrit Auto (Bld) [Volum e fraction]Ordered By: Alee Yao on 05-16-2023 Hematocrit (Bld) [Volume fraction] 42.2 % 37-47 [facility] Laboratory - Hematology and Cell countsOrdered By: Alee Yao on 05-16-2023 Erythrocyte distribution width (RBC) [Entitic vol] 43.3 fL 35.1-43.9 [facility] Erythrocyte distribution width (RBC) [Ratio] 12.3 % 11.6-14.6 [facility] Immature granulocytes/100 WBC (Bld) 0.200 % 0.0-0.9 [facility] Comment on above: IG% - Immature Granu locytes (promyelocytes, myelocytes and metamyelocytes) > 1% indicates that a LEFT SHIFT is Present. MCH (RBC) [Entitic mass] 29.7 pg 27.0-32.0 [facility] Nucleated RBC/100 WBC (Bld) [Ratio] 0 % 0-5 [facility] MCHC Auto (RBC) [Mass/Vol]Or dered By: Alee Yao on 05-16-2023 MCHC (RBC) [Mass/Vol] 31.3 g/dL 32-36 [facility] No Panel InformationOrdered By: Alee Yao on 05-16-2023 29.7 pg 27.0-32.0 [facility] 12.3 % 11.6-14.6 [facility] 43.3 fl 35.1-43.9 [facility] 0.200 % 0.0-0.9 [facility] 0 % 0-5 [facility] Platelets bldOrdered By: María Elena Yao on 05-16-2023 Platelets (Bld) [#/Vol] 227 10*3/uL 150-450 [facility] Basophil percentageOrdered B y: Alee Yao on 05-14-2023 Basophil percentage 3.0 mg/dL 2.5-4.9 [facility] Laboratory - Chemistry and C hemistry - challengeOrdered By: Alee Yao on 05-14-2023 Magnesium [Mass/Vol] 2.0 mg/dL 1.6-2.6 [facility] No Panel InformationOrdered By: Alee Yao on 05-14-2023 Methicillin-Resist S.aureus DNA PCR Negative Negative [facility] Negative Negative [facility] 2.0 mg/dL 1.6-2.6 [facility] Acetaminophen level (mass/vo lume)Ordered By: Alee Yao on 05-13-2023 Acetaminophen (Unsp spec) [Mass/Vol] < 2.0 ug/mL 10.0-30.0 [facility] Comment on above: Slight Icterus, Resu lt may be falsely decreased. Basophil percentageOrdered B y: Alee Yao on 05-13-2023 Basophil percentage 0.9 mmol/L 0.4-2.0 [facility] Lactate [Moles/Vol] 0.9 mmol/L 0.4-2.0 [facility] Basophil percentageOrdered B y: Octavia Gruber on 05-13-2023 Ammonia (P) [Moles/Vol] 15.0 umol/L [facility] Basophil percentage 15.0 umol/L [facility] Laboratory - Chemistry and C hemistry - challengeOrdered By: Alee Yao on 05-13-2023 CK [Catalytic activity/Vol] 41 U/L 26-192 [facility] Laboratory - Drug toxicology Ordered By: Alee Yao on 05-13-2023 Amphetamines Ql (U) Negative <1000 ng/mL [facility] Benzodiazepines Ql (U) Positive < 200 ng/mL [facility] Cannabinoids Screen Ql (U) Negative < 50 ng/mL [facility] Cocaine Ql (U) Negative < 300 ng/mL [facility] Opiates Ql (U) Positive < 300 ng/mL [facility] Laboratory - Microbiology an d Antimicrobial susceptibilityOrdered By: Octavia Gruber on 05-13-2023 SARS-CoV-2 (COVID-19) RNA PACHECO+probe Ql (Unsp spec) [facility] No Panel InformationOrdered By: Alee Yao on 05-13-2023 MDMA (Ecstasy) Screen Positive < 500 ng/mL [facility] Urine Barbiturates Screen Negative < 200 ng/mL [facility] Urine Drug Screen Comment [facility] Comment on above: CONFIRMATORY TESTING FOR ALL [...] Methadone Screen Negative < 300 ng/mL [facility] Negative < 50 ng/mL [facility] Positive < 300 ng/mL [facility] Ethyl Alcohol Level < 3.0 mg/dL [facility] Comment on above: The serum:whole bloo d ethanol ratio is approximately 1.14and varies slightly with hematocrit. Medical Alcohol reference interval and critical value innon-tolerant individuals; 50 - 100 Impairment 100 Intoxication 100 - 250 Severe Poisoning 250 - 400 Deep/possible fatal coma < 3.0 mg/dL [facility] 41 U/L 26-192 [facility] No Panel InformationOrdered By: Octavia Gruber on 05-13-2023 Hepatitis A IgM Antibody Negative Negative [facility] Hepatitis B Core IgM Antibody Negative Negative [facility] Hepatitis C Antibody (EIA) Non-Reactive Non Reactive [facility] Hepatitis C Antibody Comment Comment . [facility] Comment on above: Not infected with HC V unless early or acute infection issuspected (which may be delayed in an immunocompromisedindividual), or other evidence exists to indicate HCVinfection.Performed at: [facility] [id number] Director: Ruben Tan PhD, Phone: [phone] Negative Negative [facility] Non-Reactive Non Reactive [facility] Comment . [facility] Serum or plasma hepatitis B virus surface antigen detection by immunoassayOrdered By: Octavia Gruber on 05-13-2023 HBV surface Ag IA Ql Negative Negative [facility] Serum procalcitonin measurem entOrdered By: Octavia Gruber on 05-13-2023 Procalcitonin [Mass/Vol] 2.29 ng/mL 0.00-0.09 [facility] Comment on above: A procalcitonin (PCT ) [...] Phencyclidine Ql (U) Negative < 25 ng/mL [facility] Whole blood hemoglobin A1c/t otal hemoglobin ratio (mass fraction)Ordered By: Cirilo Galeas on 05-13-2023 HbA1c (Bld) [Mass fraction] 7.0 % 3.8-5.6 [facility] Comment on above: Normal < 5.7 % Predi abetic 5.7 - 6.4 % Diabetic >or= 6.5 % Please note range changes. Basophil percentageOrdered B y: Papo Morillo on 05-12-2023 Basophil percentage 0 SEEN /hpf 0-5 [facility] Bilirubin Test strip Ql (U)O rdered By: Papo Morillo on 05-12-2023 Bilirubin Ql (U) Negative Negative [facility] Culture, urineOrdered By: Javier Morillo on 05-12-2023 Bacteria identified Cx Nom (U) Culture exhibits no growth. [facility] Bacteria identified Cx Nom (U) Culture exhibits no growth. [facility] INR in Blood by Coagulation assayOrdered By: Papo Morillo on 05-12-2023 INR Coag (Bld) [Relative time] 1.1 {INR} [facility] Ketones Test strip Ql (U)Ord ered By: Papo Morillo on 05-12-2023 Ketones Ql (U) Negative Negative [facility] Laboratory - CoagulationOrde red By: Papo Morillo on 05-12-2023 aPTT Coag (Bld) [Time] 28.7 s 24.1-36.2 [facility] PT Coag (PPP) [Time] 14.5 s 11.7-14.9 [facility] Laboratory - Microbiology an d Antimicrobial susceptibilityOrdered By: Papo Morillo on 05-12-2023 Bacteria identified Cx Nom (Bld) No growth in 5 days. [facility] Mucus LM Ql (Urine sed)Order ed By: Papo Morillo on 05-12-2023 Mucus Ql (Urine sed) 0 SEEN /hpf [facility] Nitrite Test strip Ql (U)Ord ered By: Papo Morillo on 05-12-2023 Nitrite Ql (U) Negative Negative [facility] No Panel InformationOrdered By: Papo Morillo on 05-12-2023 No growth in 5 days. [facility] 14.5 SECONDS 11.7-14.9 [facility] 28.7 Seconds 24.1-36.2 [facility] Protein Test strip Ql (U)Ord ered By: Papo Morillo on 05-12-2023 Protein Ql (U) 15 mg/dl Negative [facility] Squamous epithelial cells de tection in urine sediment by light microscopyOrdered By: Papo Morillo on 05-12-2023 Epithelial cells.squamous LM Ql (Urine sed) 0 SEEN /hpf 5- [facility] Urine blood detectionOrdered By: Papo Morillo on 05-12-2023 RBC Ql (U) 10 /ul Negative [facility] RBC Ql (U) 0 SEEN /hpf 0-5 [facility] Urine clarityOrdered By: Papo Morillo on 05-12-2023 Clarity (U) Clear Clear [facility] Urine color determinationOrd ered By: Papo Morillo on 05-12-2023 Color (U) Yellow Yellow [facility] Urine glucose detectionOrder ed By: Papo Morillo on 05-12-2023 Glucose Ql (U) Normal mg/dl Normal [facility] Urine leukocyte esterase det ection by dipstickOrdered By: Papo Morillo on 05-12-2023 Leukocyte esterase Test strip Ql (U) Negative Negative [facility] Urine pHOrdered By: Papo ny on 05-12-2023 pH (U) 7.0 [pH] 5.0 - 8.0 [facility] Urine sediment bacteria coun t by microscopy (number/high power field)Ordered By: Papo Morillo on 05-12-2023 Bacteria LM.HPF (Urine sed) [#/Area] 0 /[HPF] None Seen [facility] Urine specific gravity measu rementOrdered By: Papo Morillo on 05-12-2023 Specific gravity (U) [Rel density] 1.010 1.002-1.030 [facility] Urobilinogen Auto test strip Ql (U)Ordered By: Papo Morillo on 05-12-2023 Urobilinogen Ql (U) 1 mg/dl Normal [facility] No Panel Informationon 03-04 Culture Urine >100,000 cfu/ml Multiple bacterial morphotypes present. Probable Contamination. Suggest recollection if clinically indicated. [facility] Work Phone: LABORATORYOrdered By: Vanessa Root [...] CNOV Office Visit (UROLAE ) LUIZA GALO ([id number]) 1940 F OSAWLD Date Time Provider Department 04/06/22 10:30 AM [...] Maggi Ellington RN Referring Provider: TEJAL RIVERA [[id number]] Allergies As of Date: 04/06/2022 Noted Allergy [...] cephALEXin 50 (more content not included)... Normal [facility] UA DIP, URINE (POC)on 2021 BILIRUBIN UA (POCT) Negative Negative [facility] CLARITY UA (POCT) Clear [facility] COLOR UA (POCT) Yellow [facility] GLUCOSE UA (POCT) Negative Negative mg/dL [facility] HEMOGLOBIN/BLOOD UA (POCT) Negative Negative [facility] KETONE UA (POCT) Negative Negative mg/dL [facility] LEUKOCYTES UA (POCT) Trace Abnormal Negative [facility] NITRITE UA (POCT) Negative Negative [facility] PH UA (POCT) 5.0 4.5 - 8.0 [facility] Protein Ql (U) Negative Negative mg/dL [facility] SPECIFIC GRAVITY UA (POCT) 1.025 1.005 - 1.030 [facility] UROBILINOGEN UA (POCT) 0.2 E.U./dL [facility] E.U./dL [facility] [facility] CNPNon 03-23-2022 CNPN Telephone (UROLAG) LUIZA GALO ([id number]) 1940 F [place] Date Time Provider Department 03/23/22 TEAJL RIVERA UROVANIA During your visit today, we [...] unspecified [N39.0] Order(s):URINE CULTURE [SQURCUL] Order #: [id number] FUTURE Prescriptions as of 03/23/2022 - ALPRAZolam [...] bladder) [N32.81] 05/23/2017 Encounter Status:Closed by TEJAL RVIERA on 03/23/22 [facility] No Panel Informationon 02-19 Culture Urine 50,000 - 100,000 cfu /ml Multiple bacterial morphotypes present. Probable Contamination. Suggest recollection if clinically indicated. [facility] Work Phone: LABORATORYOrdered By: Mercedez Brewster [...] 09-17 Culture Urine >100,000 cfu/ml Escherichia coli [facility] Work Phone: Escherichia coli Escherichia coli [facility] Work Phone: CNOVon 09-02-2021 CNOV Office Visit (UROLAE ) LUIZA GALO ([id number]) 1940 F [facility] Date Time Provider Department 09/02/21 [...] Maggi Ellington RN Referring Provider: TEJAL RIVERA [[id number]] Allergies As of Date: 09/02/2021 Noted Allergy Reaction SHANDAUVIA (SITAGLIPTIN) 05/23/2017 16 [...] injection (XYLOCAINE)Disp: Rfl: UA DIP, URINE (POC) [[id number]] Order #: [id number]. #:[id number] Prescriptions as of 09/02/2021 - ALPRAZolam (XANAX) 0.5 mg tablet Take 0.5 mg by mouth three times daily. - furosemide (LASIX) 20 mg tablet Take 20 mg by mouth once daily. - TRESIBA FLEXTOUCH U-200 200 unit/mL (3 mL) in (more content not included)... Normal [facility] UA DIP, URINE (POC)on 2020 BILIRUBIN UA (POCT) Negative Negative [facility] CLARITY UA (POCT) Clear [facility] COLOR UA (POCT) Yellow [facility] GLUCOSE UA (POCT) Negative Negative mg/dL [facility] HEMOGLOBIN/BLOOD UA (POCT) Trace-intact Abnormal Negative [facility] KETONE UA (POCT) Negative Negative mg/dL [facility] LEUKOCYTES UA (POCT) Trace Abnormal Negative [facility] NITRITE UA (POCT) Negative Negative [facility] PH UA (POCT) 5.5 4.5 - 8.0 [facility] Protein Ql (U) Negative Negative mg/dL [facility] SPECIFIC GRAVITY UA (POCT) 1.025 1.005 - 1.030 [facility] UROBILINOGEN UA (POCT) 0.2 E.U./dL Chelsea l E.U./dL [facility] CNPNon 08-19-2021 CNPN Telephone (UROLAE) RICKYLUIZA Corrine ([id number]) 1940 F [place] Date Time Provider Department [...] Reason for Visit: Appointment [[id number]] Patient Question [[id number]] Prescriptions as of 08/19/2021 - ALPRAZolam (XANAX) [...] at bedtime. Meds Comments as of 10/06/2017: 1-18: Pt to mail list. CR Problem List As Of Date 08/19/2021 Noted Resolved Opioid dependence, continuous [F11.20] 07/24/2012 Benzodiazepine dependence, continuous [F13.20] 07/24/2012 Urge incontinence [N39.41] 05/23/2017 OAB (overactive bladder) [N32.81] 05/23/2017 Encounter Status:Closed by MAGGI VEGA RN on 08/19/21 [facility] 06-17-2021 [facility] Office Visit (UROLAE ) LUIZA GALO ([id number]) 1940 F [place] Date Time Provider Department [...] Diagnosis Date (more content not included)... Normal [facility] Cult Urineon 12-28-2017 Cult Urine Test performed at [facility] ORGANISM: Escherichia coli (ID: 1) >100,000 CFU/ml Normal [facility] Comment on above: Performed By: #### C _URI ####[facility] [place] [address] Vital Signs Date Time Vital Sign Value Performing Clinician Facility 07-02-2025 09:06-0400 Body height 152.[address] Rosalind Rubalcava MD Work Phone: [facility] 07-02-2025 09:06-0400 Body mass index (BMI) [Ratio] 37.8 kg/m2 Dr. Rosalind Rubalcava MD Work Phone: [facility] 07-02-2025 09:06-0400 Body weight 87.[address] Rosalind Rubalcava MD Work Phone: [facility] 07-02-2025 09:06-0400 Diastolic blood pressure 60 mm[Hg] Dr. Rosalind Rubalcava MD Work Phone: [facility] 07-02-2025 09:06-0400 Heart rate 48 /min Dr. Rosalind Rubalcava MD Work Phone: [facility] 07-02-2025 09:06-0400 Respiratory rate 18 /min Dr. Rosalind Rubalcava MD Work Phone: [facility] 07-02-2025 09:06-0400 Systolic blood pressure 160 mm[Hg] Dr. Rosalind Rubalcava MD Work Phone: [facility] 11-21-2023 00:16-0500 Body temperature 97.1 [degF] Dr. Rosalind Rubalcava Work Phone: [facility] 11-21-2023 00:16-0500 Diastolic blood pressure 75 mm[Hg] Dr. Rosalind Rubalcava Work Phone: [facility] 11-21-2023 00:16-0500 Heart rate 79 /min Dr. Rosalind Rubalcava Work Phone: [facility] 11-21-2023 00:16-0500 Respiratory rate 15 /min Dr. Rosalind Rubalcava Work Phone: [facility] 11-21-2023 00:16-0500 SaO2% (BldA) [Mass fraction] 95 % Dr. Rosalind Rubalcava Work Phone: [facility] 11-21-2023 00:16-0500 Systolic blood pressure 168 mm[Hg] Dr. Rosalind Rubalcava Work Phone: [facility] 11-20-2023 20:24-0500 Body mass index (BMI) [Ratio] 36.8 kg/m2 Dr. Rosalind Rubalcava Work Phone: [facility] 11-20-2023 20:24-0500 Body weight 85.[address] Rosalind Rubalcava Work Phone: [facility] 11-20-2023 20:14-0500 Body height 152.[address] Rosalind Rubalcava Work Phone: [facility] 10-24-2023 11:24-0500 Diastolic blood pressure 70 mm[Hg] Dr. Rosalind Rubalcava Work Phone: [facility] 10-24-2023 11:24-0500 Systolic blood pressure 150 mm[Hg] Dr. Rosalind Rubalcava Work Phone: [facility] 10-24-2023 11:00-0500 Body height 157.[address] Rosalind Rubalcava Work Phone: [facility] 10-24-2023 11:00-0500 Body mass index (BMI) [Ratio] 33.3 kg/m2 Dr. Rosalind Rubalcava Work Phone: [facility] 10-24-2023 11:00-0500 Body weight 82.[address] Rosalind Rubalcava Work Phone: [facility] 10-24-2023 11:00-0500 Heart rate 50 /min Dr. Rosalind Rubalcava Work Phone: [facility] 10-24-2023 11:00-0500 Respiratory rate 18 /min Dr. Rosalind Rubalcava Work Phone: [facility] 10-24-2023 11:00-0500 SaO2% (BldA) [Mass fraction] 93 % Dr. Rosalind Rubalcava Work Phone: [facility] 08-15-2023 11:27-0500 Heart rate 55 /min Dr. Rosalind Rubalcava Work Phone: [facility] 08-15-2023 08:09-0500 SaO2% (BldA) [Mass fraction] 96 % Dr. Rosalind Rubalcava Work Phone: [facility] 08-15-2023 07:44-0500 Body temperature 97.7 [degF] Dr. Rosalind Rubalcava Work Phone: [facility] 08-15-2023 07:44-0500 Diastolic blood pressure 48 mm[Hg] Dr. Rosalind Rubalcava Work Phone: [facility] 08-15-2023 07:44-0500 Respiratory rate 16 /min Dr. Rosalind Rubalcava Work Phone: [facility] 08-15-2023 07:44-0500 Systolic blood pressure 141 mm[Hg] Dr. Rosalind Rubalcava Work Phone: [facility] 08-15-2023 05:00-0500 Inhaled oxygen flow rate 2 L/min Dr. Rosalind Rubalcava Work Phone: [facility] 08-14-2023 16:11-0500 Body height 157.[address] Rosalind Rubalcava Work Phone: [facility] 08-14-2023 16:11-0500 Body mass index (BMI) [Ratio] 34.9 kg/m2 Dr. Rosalind Rubalcava Work Phone: [facility] 08-14-2023 16:11-0500 Body weight 86.[address] Rosalind Rubalcava Work Phone: [facility] 08-14-2023 15:20-0500 Diastolic blood pressure 54 mm[Hg] Dr. Rosalind Rubalcava Work Phone: [facility] 08-14-2023 15:20-0500 Heart rate 85 /min Dr. Rosalind Rubalcava Work Phone: [facility] 08-14-2023 15:20-0500 Respiratory rate 16 /min Dr. Rosalind Rubalcava Work Phone: [facility] 08-14-2023 15:20-0500 SaO2% (BldA) [Mass fraction] 97 % Dr. Rosalind Rubalcava Work Phone: [facility] 08-14-2023 15:20-0500 Systolic blood pressure 142 mm[Hg] Dr. Rosalind Rubalcava Work Phone: [facility] 08-14-2023 13:37-0500 Body temperature 100.2 [degF] Dr. Rosalind Rubalcava Work Phone: [facility] 08-14-2023 13:37-0500 Inhaled oxygen flow rate 2 L/min Dr. Rosalind Rubalcava Work Phone: [facility] 08-14-2023 11:52-0500 Body height 157.[address] Rosalind Rubalcava Work Phone: [facility] 06-10-2023 09:17-0400 Diastolic blood pressure 45 mm[Hg] Dr. Rosalind Rubalcava Work Phone: [facility] 06-10-2023 09:17-0400 Heart rate 56 /min Dr. Rosalind Rubalcava Work Phone: [facility] 06-10-2023 09:17-0400 Systolic blood pressure 123 mm[Hg] Dr. Rosalind Rubalcava Work Phone: [facility] 06-10-2023 05:45-0400 Respiratory rate 16 /min Dr. Rosalind Rubalcava Work Phone: [facility] 06-10-2023 05:45-0400 SaO2% (BldA) [Mass fraction] 97 % Dr. Rosalind Rubalcava Work Phone: [facility] 06-09-2023 12:20-0400 Body temperature 97.8 [degF] Dr. Rosalind Rubalcava Work Phone: [facility] 06-07-2023 10:36-0400 Body mass index (BMI) [Ratio] 33.7 kg/m2 Dr. Rosalind Rubalcava Work Phone: [facility] 06-07-2023 10:36-0400 Body weight 83.[address] Rosalind Rubalcava Work Phone: [facility] 06-01-2023 11:50-0400 Body height 157.[address] Rosalind Rubalcava Work Phone: [facility] 05-17-2023 16:05-0400 Body temperature 98.3 [degF] Dr. Rosalind Rubalcava Work Phone: [facility] 05-17-2023 16:05-0400 Diastolic blood pressure 53 mm[Hg] Dr. Rosalind Rubalcava Work Phone: [facility] 05-17-2023 16:05-0400 Heart rate 62 /min Dr. Rosalind Rubalcava Work Phone: [facility] 05-17-2023 16:05-0400 Respiratory rate 16 /min Dr. Rosalind Rubalcava Work Phone: [facility] 05-17-2023 16:05-0400 SaO2% (BldA) [Mass fraction] 96 % Dr. Rosalind Rubalcava Work Phone: [facility] 05-17-2023 16:05-0400 Systolic blood pressure 143 mm[Hg] Dr. Rosalind Rubalcava Work Phone: [facility] 05-17-2023 04:38-0400 Body mass index (BMI) [Ratio] 36.3 kg/m2 Dr. Rosalind Rubalcava Work Phone: [facility] 05-17-2023 04:38-0400 Body weight 89.[address] Rosalind Rubalcava Work Phone: [facility] 05-15-2023 09:05-0400 Inhaled oxygen flow rate 1.5 L/min Dr. Rosalind Rubalcava Work Phone: [facility] 05-13-2023 01:51-0400 Body height 157.[address] Rosalind Rubalcava Work Phone: [facility] 04-20-2023 14:23-0400 Body mass index (BMI) [Ratio] 36.2 kg/m2 Dr. Rosalind Rubalcava Work Phone: [facility] 04-20-2023 14:23-0400 Body weight 89.[address] Rosalind Rubalcava Work Phone: [facility] 04-20-2023 14:23-0400 Diastolic blood pressure 87 mm[Hg] Dr. Rosalind Rubalcava Work Phone: [facility] 04-20-2023 14:23-0400 Heart rate 63 /min Dr. Rosalind Rubalcava Work Phone: [facility] 04-20-2023 14:23-0400 Respiratory rate 18 /min Dr. Rosalind Rubalcava Work Phone: [facility] 04-20-2023 14:23-0400 SaO2% (BldA) [Mass fraction] 94 % Dr. Rosalind Rubalcava Work Phone: [facility] 04-20-2023 14:23-0400 Systolic blood pressure 176 mm[Hg] Dr. Rosalind Rubalcava Work Phone: [facility] 04-06-2022 10:39-0400 Body height 157.5 cm Tejal Rivera MD Work Phone: [facility] 04-06-2022 10:39-0400 Body weight 83.92 kg Tejal Rivera MD Work Phone: [facility] 04-06-2022 10:39-0400 Diastolic blood pressure 84 mm[Hg] Tejal Rivera MD Work Phone: [facility] 04-06-2022 10:39-0400 Systolic blood pressure 152 mm[Hg] Tejal Rivera MD Work Phone: [facility] 09-02-2021 09:09-0500 Body height 157.5 cm Tejal Rivera MD Work Phone: [facility] 09-02-2021 09:09-0500 Body weight 83.92 kg Tejal Rivera MD Work Phone: [facility] 09-02-2021 09:09-0500 Diastolic blood pressure 70 mm[Hg] Tejal Rivera MD Work Phone: [facility] 09-02-2021 09:09-0500 Systolic blood pressure 130 mm[Hg] Tejal Rivera MD Work Phone: [facility] 06-17-2021 13:39-0400 Body height 157.5 cm Tejal Rivera MD Work Phone: [facility] 06-17-2021 13:39-0400 Body weight 83.92 kg Tejal Rivera MD Work Phone: [facility] 06-17-2021 13:39-0400 Diastolic blood pressure 80 mm[Hg] Tejal Rivera MD Work Phone: [facility] 06-17-2021 13:39-0400 Systolic blood pressure 126 mm[Hg] Tejal Rivera MD Work Phone: [facility] Encounters Encounter Date Encounter Type Care Provider Facility Start: 08-01-2025 ambulatory Odalys Titi Facility:[facility] Start: 08-01-2025 End: 08-01-2025 ambulatory Odalys Titi Facility:[facility] Start: 07-09-2025 ambulatory Efbeverly badillo OLS Facility:[facility] Start: 07-02-2025 End: 07-02-[address] Odalys Walls MD -[facility] Work Phone: Start: 07-02-2025 End: 07-02-[address] Rosalind Rubalcava MD Work Phone: -[facility] Start: 05-28-2025 End: 05-28-[address] Rosalind Rubalcava MD Work Phone: -[facility] Start: 05-28-2025 End: 05-28-[address] Laverne Lea MD -[facility] Work Phone: Start: 04-29-2025 ambulatory Laverne badillo OLS Facility:[facility] Start: 04-29-2025 Registered Referred Laverne Lea MD -[facility] Start: 04-15-2025 ambulatory Laverne badillo OLS Facility:[facility] Start: 04-15-2025 Registered Referred Laverne Lea MD -[facility] Start: 04-15-2025 Laverne Lea MD -[facility] Start: 04-02-2025 Non-patient / Non-visit Dr. Mamta Miranda MD -[facility] Work Phone: Start: 04-02-2025 Dr. Mamta gambino MD -[facility] Work Phone: Start: 03-18-2025 End: 03-18-[address] Rosalind Rubalcava MD Work Phone: -[facility] Start: 03-18-2025 End: 03-18-2025 [facility] Start: 03-18-2025 [facility] Start: 03-18-2025 [facility] Start: 03-18-2025 End: 03-18-2025 ambulatory Laverne Lea OLS Facility:[facility] Start: 03-11-2025 ambulatory Efewernesto badillo OLS Facility:[facility] Start: 03-11-2025 [facility] Start: 03-11-2025 [facility] Start: 03-06-2025 ambulatory Efewernesto badillo OLS Facility:[facility] Start: 03-06-2025 [facility] Start: 03-06-2025 [facility] Start: 03-05-2025 End: 03-05-[address] Rosalind Rubalcava MD Work Phone: -[facility] Start: 03-05-2025 End: 03-05-2025 Patient encounter procedure Jing MAR -[facility] Work Phone: Start: 03-05-2025 End: 03-05-2025 Jing Jones NP-C -[facility] Work Phone: Start: 03-04-2025 End: 03-04-[address] Rosalind Rubalcava MD Work Phone: -[facility] Start: 03-04-2025 End: 03-04-2025 Patient encounter procedure Jing Romeroton [employer]-C -[facility] Work Phone: Start: 03-04-2025 End: 03-04-2025 Jing Jones [employer]-David -[facility] Work Phone: Start: 03-04-2025 ambulatory Rosalind Rubalcava Facility: [facility] Start: 03-04-2025 Registered Referred Jing Mariusz aggarwal [employer]-David -[facility] Start: 03-04-2025 Jing Sanchez jackie [employer]-C -[facility] Start: 02-26-2025 End: 02-26-[address] Rosalind Rubalcava MD Work Phone: [facility] Work Phone: Start: 02-26-2025 End: 02-26-[address] [facility] Work Phone: Start: 02-26-2025 End: 02-26-2025 Dr[facility] Work Phone: Start: 02-11-2025 End: 02-11-[address] Rosalind Rubalcava MD Work Phone: [facility] Work Phone: Start: 02-11-2025 End: 02-11-2025 Departed Referred Laverne GuajardoCorrine [facility] Start: 02-11-2025 Registered Referred Laverne GuajardoCorrine [facility] Start: 02-11-2025 End: 02-11-2025 Laverne GuajardoCorrine [facility] [facility] Start: 02-11-2025 End: 02-11-2025 ambulatory Laverne VICTORIA Facility:[facility] Start: 02-04-2025 Registered Referred Laverne GaujardoCorrine [facility] Start: 02-04-2025 End: 02-04-2025 Laverne GuajardoCorrine [facility] Start: 02-04-2025 End: 02-04-2025 ambulatory Efewongbe Olenetoe OLS Facility:[facility] Start: 01-28-2025 End: 01-28-[address] Rosalind Rubalcava MD Work Phone: [facility] Work Phone: Start: 01-28-2025 End: 01-28-2025 Patient encounter procedure Jing Jones NP-C -[facility] Work Phone: Start: 01-28-2025 End: 01-28-2025 Jing Jones NP-C -[facility] Work Phone: Start: 01-14-2025 End: 01-14-2025 Departed Referred Laverne [place] [facility] Start: 01-14-2025 End: 01-14-2025 [address] [place] [facility] Start: 01-14-2025 End: 01-14-2025 ambulatory Efewongbe Elinae OLS Facility:[facility] Start: 01-10-2025 End: 01-10-[address] Rosalind Rubalcava MD Work Phone: [facility] Work Phone: Start: 01-10-2025 End: 01-10-2025 Patient encounter procedure Jing Jones NP-C -[facility] Work Phone: Start: 01-10-2025 End: 01-10-2025 Departed Referred Laverne [place] [facility] Start: 01-10-2025 End: 01-10-2025 Jing Jones NP-C -[facility] Work Phone: Start: 01-09-2025 End: 01-10-[address] Rosalind Rubalcava MD Work Phone: [facility] Work Phone: Start: 01-09-2025 End: 01-09-2025 Patient encounter procedure Jing Jones [employer]-C -[facility] Work Phone: Start: 01-09-2025 End: 01-09-2025 Jing Robert [employer]-C -[facility] Work Phone: Start: 01-08-2025 End: 01-08-[address] Rosalind Rubalcava MD Work Phone: [facility] Work Phone: Start: 01-08-2025 End: 01-08-2025 Patient encounter procedure Jing Robert [employer]C -[facility] Work Phone: Start: 01-08-2025 End: 01-08-2025 Jing Robert [employer]C -[facility] Work Phone: Start: 12-24-2024 End: 12-24-[address] Rosalind Rubalcava MD Work Phone: [facility] Work Phone: Start: 12-24-2024 End: 12-24-2024 Departed Referred Laverne GuajardoCorrine [facility] Start: 12-24-2024 Registered Referred Laverne GuajardoCorrine [place] Start: 12-24-2024 End: 12-24-2024 Laverne GuajardoCorrine Guajardo [facility] Start: 12-24-2024 End: 12-24-2024 ambulatory Laverne VICTORIA Facility:[facility] Start: 12-10-2024 End: 12-10-[address] Rosalind Rubalcava MD Work Phone: [facility] Work Phone: Start: 12-10-2024 End: 12-10-2024 Departed Referred Laverne Banuel[facility] Start: 12-10-2024 End: 12-10-2024 Laverne Banuelos [facility] Start: 12-10-2024 End: 12-10-2024 ambulatory Antonetteernesto Lea OLS Facility:[facility] Start: 11-12-2024 ambulatory Laverne badillo OLS Facility:[facility] Start: 11-12-2024 Registered Referred Laverne Hollins/Juan Start: 10-15-2024 End: 10-15-2024 Departed Referred Laverne [place] Start: 10-15-2024 End: 10-15-2024 ambulatory Leonorabeverly VICTORIA Facility:[facility] Start: 10-01-2024 ambulatory Antonetteernesto badillo OLS Facility:[facility] Start: 10-01-2024 Registered Referred Laverne Hollins/Juan Start: 09-21-2024 End: 09-21-2024 ambulatory Rosalind Rubalcava Facility:[facility] Start: 09-21-2024 End: 09-21-2024 Patient encounter procedure Jing MAR -[facility] Work Phone: Start: 09-13-2024 ambulatory Rosalind Rubalcava Facility: [facility] Start: 09-13-2024 Registered Referred Laverne Conde Start: 09-10-2024 ambulatory Rosalind Rubalcava Facility: [facility] Start: 09-10-2024 Registered Referred Laverne Conde Start: 09-03-2024 End: 09-03-2024 ambulatory Rosalind Rubalcava Facility:[facility] Start: 08-20-2024 End: 08-20-2024 ambulatory Rosalind Rubalcava Facility:[facility] Start: 05-23-2024 End: 05-27-2024 ambulatory ROSALIND RUBALCAVA MD Facility:[facility] Start: 05-23-2024 End: 05-27-2024 Outreach Lab ROSALIND RUBALCAVA MD [facility] Start: 03-06-2024 End: 03-06-2024 ambulatory ROSALIND RUBALCAVA MD Facility:[facility] Start: 03-03-2024 End: 05-21-2024 ambulatory ROSALIND RUBALCAVA MD Facility:[facility] Start: 01-15-2024 Non-patient / Non-visit Dr. Rosalind Rubalcava Work Phone: [facility] Work Phone: Start: 01-13-2024 Non-patient / Non-visit Dr. Rosalind Rubalcava Work Phone: [facility] Start: 01-13-2024 End: 01-13-[address] Rosalind Rubalcava Work Phone: [facility] Work Phone: Start: 01-13-2024 End: 01-13-[address] [facility] Work Phone: Start: 12-28-2023 End: 12-28-[address] Rosalind Rubalcava Work Phone: [facility] Work Phone: Start: 12-28-2023 End: 12-28-[address] [facility]: Start: 12-15-2023 End: 12-15-[address] Rosalind Rubalcava Work Phone: [facility] Work Phone: Start: 12-15-2023 End: 12-15-[address] [facility]al[facility]: Start: 11-20-2023 End: 11-21-2023 Emergency department patient visit Dr. Rosalind Rubalcava Work Phone: [facility]Emergency Department Work Phone: Start: 11-10-2023 End: 11-10-[address] Rosalind Rubalcava Work Phone: [facility] Work Phone: Start: 11-04-2023 End: 11-04-[address] Rosalind Rubalcava Work Phone: [facility] Work Phone: Start: 11-01-2023 End: 11-01-2023 ambulatory ROSALIND RUBALCAVA MD Facility:B Start: 10-24-2023 End: 10-24-[address] Rosalind Rubalcava Work Phone: [facility] Work Phone: Start: 10-24-2023 End: 10-24-[address] Rosalind Rubalcava Work Phone: [facility] Work Phone: Start: 09-22-2023 End: 09-22-2023 ambulatory KATALINA PUENTESEY Facility:B Start: 09-22-2023 End: 09-22-2023 Patient encounter procedure ROSALIND RUBALCAVA MD [facility] Start: 08-15-2023 Non-patient / Non-visit Dr. Rosalind Rubalcava Work Phone: [facility] Work Phone: Start: 08-15-2023 Dr. Rosalind willis Work Phone: [facility] Work Phone: Start: 08-14-2023 End: 08-15-2023 Evaluation and management of inpatient Dr. Rosalind Rubalcava Work Phone: [facility]Medical Surgical 3 Work Phone: Start: 08-14-2023 End: 08-15-[address] Rosalind Rubalcava Work Phone: [facility] Work Phone: Start: 08-14-2023 End: 08-15-2023 Dr. Rosalind Rubalcava Work Phone: [facility] 3 Work Phone: Start: 2023 End: 08-13-2023 ambulatory ROSALIND RUBALCAVA MD Facility:B Start: 2023 End: 08-13-2023 Outreach Lab ROSALIND RUBALCAVA MD [facility] Start: 08-04-2023 End: 08-04-2023 ambulatory ROSALIND RUBALCAVA MD Facility:B Start: 05-17-2023 End: 06-10-2023 Evaluation and management of inpatient Dr. Rosalind Rubalcava Work Phone: [facility]-Transitional Care Unit Start: 05-17-2023 End: 06-10-2023 Dr. Rosalind Rubalcava Work Phone: [facility] Start: 05-17-2023 Non-patient / Non-visit Dr. Rosalind Rubalcava Work Phone: [facility] Work Phone: Start: 05-17-2023 Dr. Rosalind willis Work Phone: [facility] Work Phone: Start: 05-16-2023 Non-patient / Non-visit Dr. Rosalind Rubalcava Work Phone: [facility] Work Phone: Start: 05-16-2023 Dr. Rosalind willis Work Phone: [facility] Work Phone: Start: 05-15-2023 Non-patient / Non-visit Dr. Rosalind Rubalcava Work Phone: [facility] Work Phone: Start: 05-15-2023 Dr. Rosalind willis Work Phone: [facility] Work Phone: Start: 05-14-2023 Non-patient / Non-visit Dr. Rsoalind Rubalcava Work Phone: [facility] Work Phone: Start: 05-14-2023 Dr. Rosalind willis Work Phone: [facility] Work Phone: Start: 05-14-2023 Non-patient / Non-visit Dr. Rosalind Rubalcava Work Phone: [facility] Start: 05-14-2023 Dr. Rosalind willis Work Phone: [facility] Start: 05-13-2023 Non-patient / Non-visit Dr. Rosalind Rubalcava Work Phone: [facility] Start: 05-13-2023 Dr. Rosalind willis Work Phone: [facility] Start: 05-13-2023 End: 05-17-2023 Evaluation and management of inpatient Dr. Rosalind Rubalcava Work Phone: [facility] 3 Work Phone: Start: 05-13-2023 Non-patient / Non-visit Dr. Rosalind Rubalcava Work Phone: [facility] Work Phone: Start: 05-13-2023 End: 05-17-2023 Dr. Rosalind Rubalcava Work Phone: [facility] 3 Work Phone: Start: 04-20-2023 End: 04-20-[address] Rosalind Rubalcava Work Phone: [facility] Work Phone: Start: 04-20-2023 End: 04-20-2023 Dr. 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 [facility] Start: 12-17-2022 End: 12-17-2022 Patient encounter procedure ROSALIND RUBALCAVA MD [facility] Start: 05-11-2022 End: 05-11-2022 Patient encounter procedure ROSALIND RUBALCAVA MD [facility] Start: 04-06-2022 End: 04-06-2022 Patient encounter procedure Tejal Rivera MD Work Phone: Urology Comment on above: Urge incontinence (P rimary Dx) Start: 03-24-2022 End: 03-24-2022 Patient encounter procedure TEJAL RIVERA MD [facility] Start: 03-23-2022 Telephone encounter Tejal Rivera MD Work Phone: Urology Comment on above: Orders Start: 02-19-2022 End: 02-23-2022 Outreach Lab ARIANE RAMIREZ THERAPEUTIC STRATEGY LEAD-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 [facility] Start: 11-10-2021 End: 11-10-2021 Patient encounter procedure ROSALIND RUBALCAVA MD [facility] Start: 09-17-2021 End: 09-21-2021 Outreach Lab BASILIA MI DO [facility] Start: 09-02-2021 End: 09-02-2021 Patient encounter [...] Nocturia Start: 08-16-2018 Patient encounter SAMIR Owen acility:[facility] Start: 07-19-2018 Patient encounter TEJAL RIVERA Facility:[facility] Start: 07-13-2018 End: 07-13-2018 Patient encounter SAMIR BEJARANO Facility:[facility] Start: 07-03-2018 Patient encounter JONA JUAN A Lexie acility:[facility] Start: 06-15-2018 End: 06-15-2018 Patient encounter SAMIR BEJARANO Facility:[facility] Start: 05-15-2018 Patient encounter SAMIR Owen acility:[facility] Start: 04-13-2018 End: 04-13-2018 Patient encounter SAMIR BEJARANO Facility:[facility] Start: 03-22-2018 End: 03-22-2018 Patient encounter SAMIR BEJARANO Facility:[facility] Start: 03-15-2018 Patient encounter SAMIR Owen acility:[facility] Start: 02-22-2018 End: 02-22-2018 Patient encounter SAMIR BEJARANO Facility:[facility] Start: 01-26-2018 End: 01-26-2018 Patient encounter JONA VELAZCO Facility:[facility] Start: 01-16-2018 Patient encounter ROSALIND Leal cility:[facility] Start: 01-11-2018 End: 01-11-2018 [facility] Start: 12-28-2017 End: 12-29-2017 Patient encounter JONA VELAZCO Facility:[facility] Start: 12-28-2017 End: 12-28-2017 Patient encounter JONA VELAZCO Facility:[facility] Start: 10-06-2017 End: 10-06-2017 Patient encounter JONA VELAZCO Facility:[facility] Start: 09-20-2017 Patient encounter TEJAL RIVERA Facility:[facility] Start: 08-19-2017 End: 08-19-2017 Patient encounter [facility] Procedures Date Procedure Procedure Detail Performing Clinician [...] A/V wires Start: 05-27-2017 Cardiac catheterization BASILIA SHMUEL [place] [facility] Start: 05-03-2017 History of coronary [...] Date Care Activity Detail Author Start: 11-20-2023 [facility] Start: 08-15-2023 Patient discharge [facility] Start: 08-15-2023 Oxygen therapy [facility] Start: 08-14-2023 Ambulation without limitation [facility] Start: 08-14-2023 Assessment of risk o f venous thromboembolism [facility] Start: 08-14-2023 Care regimes management [facility] Start: 08-14-2023 Insertion of cathete r into peripheral vein [facility] Start: 08-14-2023 Notification of physician [facility] Start: 08-14-2023 Providing care accor ding to standard [facility] Start: 08-14-2023 Referral to occupati onal therapist [facility] Start: 08-14-2023 Referral to service [facility] Start: 08-14-2023 Verification routine [facility] Start: 08-14-2023 Admission procedure [facility] Start: 08-14-2023 Hospital admission, emergency, from emergency room, medical nature [facility] Start: 08-14-2023 End: 08-14-2023 [facility] Start: 08-14-2023 End: 08-14-2023 Blood culture [facility] Start: 06-10-2023 Development of care plan [facility] Start: 06-10-2023 Patient discharge [facility] Start: 06-09-2023 [facility] Start: 06-07-2023 Referral to service [facility] Start: 06-06-2023 [facility] Start: 06-02-2023 [facility] Start: 05-31-2023 End: 06-01-2023 [facility] Start: 05-31-2023 [facility] Start: 05-19-2023 Speech therapy management [facility] Start: 05-18-2023 Speech therapy assessment [facility] Start: 05-18-2023 Development of care plan [facility] Start: 05-18-2023 Developing a treatme nt plan [facility] Start: 05-17-2023 Admission procedure [facility] Start: 05-17-2023 Measuring intake and output [facility] Start: 05-17-2023 Patient referral to dietitian [facility] Start: 05-17-2023 Referral to occupati onal therapist [facility] Start: 05-17-2023 Referral to service [facility] Start: 05-17-2023 Vital signs measurements [facility] Start: 05-17-2023 [facility] Start: 05-17-2023 Following clinical p athway protocol [facility] Start: 05-17-2023 Patient discharge [facility] Start: 05-17-2023 Patient referral to dietitian [facility] Start: 05-16-2023 [facility] Start: 05-13-2023 [facility] Start: 05-13-2023 Catheterization of vein [facility] Start: 05-13-2023 Cardiac monitoring [facility] Start: 05-13-2023 Catheterization of vein [facility] Start: 05-13-2023 Continuous pulse oximetry [facility] Start: 05-13-2023 Notification of physician [facility] Start: 05-13-2023 Application of intermittent pneumatic compression device [facility] Start: 05-13-2023 Aspiration precautions [facility] Start: 05-13-2023 Assessment of risk o f venous thromboembolism [facility] Start: 05-13-2023 Care regimes management [facility] Start: 05-13-2023 Fall prevention [facility] Start: 05-13-2023 Insertion of cathete r into peripheral vein [facility] Start: 05-13-2023 Introduction of urin sumeet catheter [facility] Start: 05-13-2023 Measuring intake and output [facility] Start: 05-13-2023 Notification of physician [facility] Start: 05-13-2023 Oxygen therapy [facility] Start: 05-13-2023 Providing care accor ding to standard [facility] Start: 05-13-2023 Provision of activit y privileges [facility] Start: 05-13-2023 Referral to gastroenterology service [facility] Start: 05-13-2023 Referral to occupati onal therapist [facility] Start: 05-13-2023 Referral to service [facility] Start: 05-13-2023 Following clinical p athway protocol [facility] Start: 05-13-2023 Admission procedure [facility] Start: 05-13-2023 Inhalation therapy procedure [facility] Start: 05-13-2023 End: 05-13-2023 [facility] Start: 05-12-2023 End: 05-12-2023 Blood culture [facility] Start: 05-12-2023 Bacteria identified in Blood by Culture Blood Culture [facility] Start: 09-29-2022 End: 11-29-2022 Bacteria identified in Urine by Culture URINE CULTURE Microbiology Routine Urge incontinence Expected: 09/29/2022 (Approximate), Expires: 11/29/2022 [facility] Work Phone: Comment on above: Expected: 09/29/2022 (Approximate), Expires: 11/29/2022 Start: 06-03-2022 Influenza vaccination INFLUENZA (#1) [facility] Start: 03-23-2022 End: 03-23-2023 Bacteria identified in Urine by Culture URINE CULTURE Microbiology Routine Urinary tract infection without hematuria, site unspecified Expected: 03/23/2022, Expires: 03/23/2023 [facility] Work Phone: Comment on above: Expected: 03/23/2022 , Expires: 03/23/2023 Start: 12-06-2021 COVID-19 VACCINE (4 - Booster for Moderna series) COVID-19 VACCINE (4 - Booster for Moderna series) [facility] Start: 10-03-2021 ADVANCE DIRECTIVE DISCUSSION ADVANCE DIRECTIVE DISCUSSION [facility] Start: 06-19-2021 COVID-19 VACCINE (3 - Booster for Moderna series) COVID-19 VACCINE (3 - Booster for Moderna series) [facility] Start: 06-03-2021 Influenza vaccination INFLUENZA (#1) [facility] Start: 2007 ADVANCE DIRECTIVE DISCUSSION ADVANCE DIRECTIVE DISCUSSION [facility] Start: 2007 BONE DENSITY BONE DENSITY [facility] Start: 2007 PNEUMOCOCCAL: 65+ (1 - PCV) PNEUMOCOCCAL: 65+ (1 - PCV) [facility] Start: 2007 PNEUMOVAX AGE 65 AND OVER WITH 5YR LOOKBACK (#1) PNEUMOVAX AGE 65 AND OVER WITH 5YR LOOKBACK (#1) [facility] Start: 1992 SHINGRIX VACCINE (1 of 2) SAM GRIX VACCINE (1 of 2) [facility] Start: 1987 DIABETES SCREEN DIABETES SCREEN [facility] Start: 1961 Urine microalbumin profile DTA P,TDAP,TD (1 - Tdap) [facility] Start: 1960 HEPATITIS C SCREENING HEPATITIS C [facility] Start: 1954 Adult depression scr [facility] assessment DEPRESSION SCREENING [facility] Comprehensive metabo lic 1999 panel - Serum or Plasma [facility] Lipid 1996 panel - S sallie or Plasma [facility] NM Heart Views W str ess and W radionuclide IV [facility] Patient Education ED Fracture, V ertebral Compression ED Hematoma [facility] Work Phone: Patient referral [facility] Work Phone: Thyroid stimulating hormone measurement [facility] Immunizations Immunization Date Immunization Notes Care Provider Fa verenicety 05-26-2023 Covid Moderna Bivale nt Booster Dr. Rosalind Rubalcava Work Phone: [facility] 05-26-2023 SARS-CoV-2 (CV19)mRNA-1273 bivalent vac 1 ROSALIND RUBALCAVA MD [facility] Comment on above: Result Comment: 2022: [id number] 07-01-2022 influenza virus vacc ine, unspecified formulation ROSALIND RUBALCAVA MD [facility] 08-08-2021 SARS-CoV-2 (COVID-19 ) mRNA-1273 vaccine BASILIA MI DO [facility] Comment on above: Result Comment: 2020: [id number] 06-25-2021 influenza virus vacc ine, unspecified formulation BASILIA MI DO [facility] 06-25-2021 Influenza, high dose seasonal Dr. Rosalind Rubalcava MD Work Phone: [facility] 06-25-2021 influenza, high dose seasonal, preservative-free Dr. Rosalind Rubalcava Work Phone: [facility] 12-22-2020 Covid (Moderna) Dr. Rosalind evans Work Phone: [facility] 12-17-2020 SARS-CoV-2 (COVID-19 ) mRNA-1273 vaccine BASILIA MI DO [facility] Comment on above: Result Comment: 2020: [id number] 11-20-2020 SARS-CoV-2 (COVID-19 ) mRNA-1273 vaccine BASILIA MI DO [facility] 09-16-2020 zoster vaccine recombinant BASILIA MI DO [facility] 07-25-[address] Rosalind Rubalcava Work Phone: [facility] 07-16-2020 zoster vaccine recombinant BASILIA MI DO [facility] 06-25-2020 influenza virus vacc ine, unspecified formulation BASILIA MI DO [facility] 06-25-2020 influenza, injectabl e, quadrivalent, preservative free Dr. Rosalind Rubalcava Work Phone: [facility] 06-10-2020 influenza virus vacc ine, unspecified formulation BASILIA SHMUEL DO [facility] 06-10-2020 Influenza, high dose seasonal Dr. Rosalind Rubalcava MD Work Phone: [facility] 06-10-2020 influenza, high dose seasonal, preservative-free Dr. Rosalind Rubalcava Work Phone: [facility] 07-11-2019 influenza, injectabl e, quadrivalent, preservative free; Translations: [Fluarix PF Quadrivalent ] BASILIA MI DO [facility] 06-03-2018 influenza virus vacc ine, unspecified formulation BASILIA MI DO [facility] 06-03-2018 influenza, injectabl e, quadrivalent, preservative free Dr. Rosalind Rubalcava Work Phone: [facility] 08-16-2017 tetanus toxoid, redu chiqui diphtheria toxoid, and acellular pertussis vaccine, adsorbed BASILIA MI DO [facility] 07-13-[address] Rosalind Rubalcava Work Phone: [facility] 07-13-2017 influenza, injectabl e, quadrivalent, preservative free BASILIA MI DO [facility] 10-27-2016 pneumococcal conjuga te vaccine, 13 valent BASILIA MI DO [facility] 06-11-2016 influenza virus vacc ine, unspecified formulation BASILIA MI DO [facility] 06-11-2016 influenza, injectabl e, quadrivalent, preservative free Dr. Rosalind Rubalcava Work Phone: [facility] 08-26-2015 influenza virus vacc ine, unspecified formulation BASILIA MI DO [facility] 08-26-2015 influenza, injectabl e, quadrivalent, preservative free Dr. Rosalind Rubalcava Work Phone: [facility] 08-23-2014 influenza virus vacc ine, unspecified formulation BASILIA SHMUEL DO [facility] 08-23-2014 influenza, injectabl e, quadrivalent, preservative free Dr. Rosalind Rubalcava Work Phone: [facility] 02-06-2013 pneumococcal polysaccharide vaccine, 23 valent BASILIA MI DO [facility] 04-08-2011 zoster vaccine, live BASILIA MI DO [facility] 07-04-2009 influenza, injectabl e, quadrivalent, preservative free Dr. Rosalind Rubalcava Work Phone: [facility] 08-16-2002 pneumococcal polysaccharide vaccine, [address] Rosalind Rubalcava Work Phone: [facility] Payers Date Payer Category Payer Self-pay [id number] 2016 Unknown [id number] 2014 Unknown [id number] 1942 Unknown [id number] 2.16.8 40.1.227022.3.579.2.278 1942 Unknown [id number] 2.16.8 40.1.157423.3.579.2.278 1942 Unknown [id number] 2.16.8 40.1.628187.3.579.2.278 1942 Unknown [id number] 2.16.8 40.1.257131.3.579.2.278 1942 Unknown [id number] 2.16.8 40.1.968493.3.579.2.278 1942 Unknown [id number] 2.16.8 40.1.423555.3.579.2.278 1942 Unknown [id number] 2.16.8 40.1.297788.3.579.2.278 1942 Unknown [id number] 2.16.8 40.1.179855.3.579.2.278 1942 Unknown [id number] 2.16.8 40.1.602041.3.579.2.278 1942 Unknown [id number] 2.16.8 40.1.291636.3.579.2.278 1942 Unknown [id number] 2.16.8 40.1.022082.3.579.2.278 1942 Unknown [id number] 2.16.8 40.1.364595.3.579.2.278 1942 Unknown [id number] 2.16.8 40.1.581033.3.579.2.278 1942 Unknown [id number] 2.16.8 40.1.275087.3.579.2.278 1942 Unknown [id number] 2.16.8 40.1.364297.3.579.2.278 1942 Unknown [id number] 2.16.8 40.1.626998.3.579.2.278 1942 Unknown [id number] 2.16.8 40.1.825750.3.579.2.278 1942 Unknown [id number] 2.16.8 40.1.467931.3.579.2.278 1942 Unknown [id number] 2.16.8 40.1.834584.3.579.2.627 1942 Unknown [id number] 2.16.8 40.1.486125.3.579.2.627 1942 Unknown [id number] 2.16.8 40.1.469421.3.579.2.627 1942 Unknown [id number] 2.16.8 40.1.762400.3.579.2.627 1942 Unknown [id number] 2.16.8 40.1.240498.3.579.2.62 1942 Unknown [id number] 2.16.8 40.1.596724.3.579.2.62 1942 Unknown [id number] 2.16.8 40.1.894922.3.579.2.627 Unknown [id number] 2.16.8 40.1.588831.3.579.2.462 Unknown [id number] 2.16.8 40.1.824188.3.579.2.462 Unknown [id number] 2.16.8 40.1.775127.3.579.2.462 Unknown [id number] 2.16.8 40.1.962750.3.579.2.462 Unknown [id number] 2.16.8 40.1.669575.3.579.2.462 Unknown [id number] 2.16.8 40.1.420378.3.579.2.462 Unknown [id number] 2.16.8 40.1.310961.3.579.2.462 Unknown [id number] 2.16.8 40.1.760625.3.579.2.462 Unknown [id number] 2.16.8 40.1.755547.3.579.2.462 Unknown [id number] 2.16.8 40.1.111721.3.579.2.462 Unknown [id number] 2.16.8 40.1.066955.3.579.2.462 Unknown [id number] 2.16.8 40.1.631892.3.579.2.462 Unknown [id number] 2.16.8 40.1.024210.3.579.2.462 Unknown [id number] 2.16.8 40.1.153789.3.579.2.462 Unknown [id number] 2.16.8 40.1.651783.3.579.2.462 Unknown [id number] 2.16.8 40.1.032278.3.579.2.462 Unknown [id number] 2.16.8 40.1.583132.3.579.2.462 Unknown [id number] 2.16.8 40.1.720560.3.579.2.462 Unknown [id number] 2.16.8 40.1.546666.3.579.2.462 Unknown [id number] 2.16.8 40.1.967109.3.579.2.462 Unknown [id number] 2.16.8 [id number] Unknown [id number] 2.16.8 [id number] Unknown [id number] 2.16.8 [id number] Unknown [id number] 2.16.8 [id number] Unknown [id number] 2.16.8 [id number] Unknown [id number] 2.16.8 [id number] Unknown [id number] 2.16.8 [id number] Unknown [id number] 2.16.8 [id number] Unknown [id number] 2.16.8 [id number] Unknown [id number] 2.16.8 [id number] Unknown [id number] 2.16.8 [id number] Unknown [id number] 2.16.8 [id number] Social History Date Type Detail Facility Start: 06-17-2021 End: 07-17-2024 Tobacco smoking status NHIS Former smoker [facility] Comment on above: Tobacco/Smoke Exposu re: none Start: 08-19-2017 End: 06-17-2021 Tobacco use and exposure Never used [facility] Start: 06-17-2021 End: 04-06-2022 Alcohol intake Current non-drinker of alcohol (finding) [facility] Start: 1940 Sex Assigned At Not on file [facility] Exposure to SARS-CoV-2 (event) Not sure [facility] Start: 04-13-2019 Never smoked t obacco (finding) [facility] Comment on above: Tobacco/Smoke Exposu re: none Start: 1940 Sex Assigned At Female [facility] Start: 05-13-2023 End: 11-20-2023 Tobacco smoking status NHIS Unknown if ever smoked [facility] Start: 01-19-2021 None [facility] Start: 01-19-2021 Alone [facility] Start: 09-14-2017 Non-smoker [facility] Start: 01-02-2025 End: 01-09-2025 Sex Female (finding) [facility] Sex Female [place] NEGATED: Highlighted row [facility] Medical Equipment Procedure Code Equipment Code Equipment [...] twice daily. BD UF MINI PEN NEEDLE [id number] Start: 02-04-[address] Strips Start: 04-09-2020 Lancets Start: 11-16-2019 BD UF MINI PEN NEEDLE [id number] Start: 02-04-[address] Strips Start: 04-09-2020 Lancets Start: 11-16-2019 BD UF MINI PEN NEEDLE [id number], See Instructions, USE DIRECTED TWICE A DAY, # 100 syringe, 11 Refill(s), Pharmacy: [facility], 158.75, cm, 12/13/19 11:28:00 EDT, Height, 89.6, kg, 12/13/19 11:28:00 EDT, Dosing Weight Start: 02-04-2020 See Instructions , 3 bottle of 100, testing once daily, 90 day supply DX: E11.9, # 300 EA, 3 Refill(s), [facility], Diabetes, 158, cm, 04/09/20 16:02:00 EDT, Height, 90.8, kg, 04/09/20 16:02:00 EDT, Dosing Weight Start: 04-09-2020 See Instructions , Micro Thin lancets 33G use as directed once daily box of 100 DX E11.09, # 1 EA, 11 Refill(s), [facility], 158, cm, 11/14/19 13:17:00 EST, Height, 88.8, kg, 11/14/19 13:17:00 EST, Dosing Weight Start: 11-16-2019 See Instructions , qs for 1 month supply, BD UF mini pen needles [id number], DX: E11.9, # 1 EA, 11 Refill(s), [facility], 157.5, cm, 11/04/20 13:17:00 EST, Height, 90.7, kg, 11/04/20 13:17:00 EST, Dosing Weight Start: 11-04-2020 BD UF MINI PEN NEEDLE [id number], See Instructions, USE DIRECTED TWICE A DAY, # 100 syringe, 11 Refill(s), Pharmacy: [facility] STORE 01967, 158.75, cm, 12/13/19 11:28:00 EDT, Height, 89.6, kg, 12/13/19 11:28:00 EDT, Dosing Weight Start: 02-04-2020 See Instructions , 3 bottle of 100, testing once daily, 90 day supply DX: E11.9, # 300 EA, 3 Refill(s), [facility], Diabetes, 158, cm, 04/09/20 16:02:00 EDT, Height, 90.8, kg, 04/09/20 16:02:00 EDT, Dosing Weight Start: 04-09-2020 See Instructions , Micro Thin lancets 33G use as directed once daily box of 100 DX E11.09, # 1 EA, 11 Refill(s), [facility], 158, cm, 11/14/19 13:17:00 EST, Height, 88.8, kg, 11/14/19 13:17:00 EST, Dosing Weight Start: 11-16-2019 See Instructions , qs for 1 month supply, BD UF mini pen needles [id number], DX: E11.9, # 1 EA, 11 Refill(s), [facility], 157.5, cm, 11/04/20 13:17:00 EST, Height, 90.7, kg, 11/04/20 13:17:00 EST, Dosing Weight Start: 11-04-2020 BD UF MINI PEN NEEDLE [id number], See Instructions, USE DIRECTED TWICE A DAY, # 100 syringe, 11 Refill(s), Pharmacy: [facility] [address], 158.75, cm, 12/13/19 11:28:00 EDT, Height, 89.6, kg, 12/13/19 11:28:00 EDT, Dosing Weight Start: 02-04-2020 See Instructions , 3 bottle of 100, testing once daily, 90 day supply DX: E11.9, # 300 EA, 3 Refill(s), [facility], Diabetes, 158, cm, 04/09/20 16:02:00 EDT, Height, 90.8, kg, 04/09/20 16:02:00 EDT, Dosing Weight Start: 04-09-2020 See Instructions , Micro Thin lancets 33G use as directed once daily box of 100 DX E11.09, # 1 EA, 11 Refill(s), [facility], 158, cm, 11/14/19 13:17:00 EST, Height, 88.8, kg, 11/14/19 13:17:00 EST, Dosing Weight Start: 11-16-2019 See Instructions , qs for 1 month supply, BD UF mini pen needles [id number], DX: E11.9, # 1 EA, 11 Refill(s), [facility], 157, cm, 04/07/22 10:54:00 EDT, Height, 86.3, kg, 04/07/22 10:54:00 EDT, Dosing Weight Start: 04-14-2022 BD UF MINI PEN NEEDLE [id number], See Instructions, USE DIRECTED TWICE A DAY, # 100 syringe, 11 Refill(s), Pharmacy: [facility] STORE [address]292, 158.75, cm, 12/13/19 11:28:00 EDT, Height, 89.6, [...] month supply, BD UF mini pen needles [id number], DX: E11.9, # 1 EA, 11 Refill(s), [facility], 157, cm, 04/07/22 10:54:00 EDT, Height, 86.3, kg, 04/07/22 10:54:00 EDT, Dosing Weight Start: 04-14-2022 BD UF MINI PEN NEEDLE [id number], See Instructions, USE DIRECTED TWICE A DAY, # 100 syringe, 11 Refill(s), Pharmacy: [facility] 63123, 158.75, cm, 12/13/19 11:28:00 EDT, Height, 89.6, [...] month supply, BD UF mini pen needles [id number], DX: E11.9, # 1 EA, 11 Refill(s), Pharmacy: [facility] #4605, 157, cm, 04/07/22 10:54:00 EDT, Height, 86.3, kg, 04/07/22 10:54:00 EDT, Dosing Weight Start: 04-14-2022 BLADDER STIMULATOR FDA Start: BLADDER STIMULATOR FDA Start: BD UF MINI PEN NEEDLE [id number], See Instructions, USE DIRECTED TWICE A DAY, # 100 syringe, 11 Refill(s), Pharmacy: [facility] STORE [address]8435, 158.75, cm, 12/13/19 11:28:00 EDT, Height, 89.6, [...] month supply, BD UF mini pen needles [id number], DX: E11.9, # 1 EA, 11 Refill(s), [facility], 155, cm, 06/16/23 13:11:00 EDT, Height, 85.5, kg, 06/16/23 12:56:00 EDT, Dosing Weight Start: 07-12-2023 FDA Start: FDA Start: BD UF MINI PEN NEEDLE [id number], See Instructions, USE DIRECTED TWICE A DAY, # 100 syringe, 11 Refill(s), Pharmacy: [facility] STORE 32408, 158.75, cm, 12/13/19 11:28:00 EDT, Height, 89.6, [...] month supply, BD UF mini pen needles [id number], DX: E11.9, # 1 EA, 11 Refill(s), Pharmacy: [facility] [address], 155, cm, 06/16/23 13:11:00 EDT, Height, 85.5, kg, 06/16/23 12:56:00 EDT, Dosing Weight Start: 07-12-2023 BLADDER STIMULATOR FDA Start: BLADDER STIMULATOR FDA Start: BLADDER STIMULATOR FDA Start: BLADDER STIMULATOR FDA Start: BLADDER STIMULATOR FDA Start: BD UF MINI PEN NEEDLE [id number], See Instructions, USE DIRECTED TWICE A DAY, # 100 syringe, 11 Refill(s), Pharmacy: [facility]ORE [address]01, 158.75, cm, 12/13/19 11:28:00 EDT, Height, 89.6, kg, 12/13/19 11:28:00 EDT, Dosing Weight Start: 02-04-2020 See Instructions , 3 bottle of 100, testing once daily, 90 day supply DX: E11.9, # 300 EA, 3 Refill(s), Pharmacy: [facility] #30, Diabetes, 154, cm, 08/31/23 11:39:00 EST, Height, 81, kg, 08/31/23 11:39:00 EST, Dosing Weight Start: 10-14-2023 See Instructions , Micro Thin lancets 33G use as directed once daily box of 100 DX E11.09, # 1 EA, 11 Refill(s), Pharmacy: [facility] #30, 154, cm, 08/31/23 11:39:00 EST, Height, 81, kg, 08/31/23 11:39:00 EST, Dosing Weight Start: 10-14-2023 See Instructions , qs for 1 month supply, BD UF mini pen needles [id number], DX: E11.9, # 1 EA, 11 Refill(s), Pharmacy: [facility] - [address]147, 154, cm, 08/31/23 11:39:00 EST, Height, 81, kg, 08/31/23 11:39:00 EST, Dosing Weight Start: 10-13-2023 BLADDER STIMULATOR FDA Start: BLADDER STIMULATOR FDA Start: BLADDER STIMULATOR FDA Start: BLADDER STIMULATOR FDA Start: BLADDER STIMULATOR FDA Start: BLADDER STIMULATOR FDA Start: FDA Start: FDA Start: FDA Start: FDA Start: BLADDER STIMULATOR FDA Start: BLADDER STIMULATOR FDA Start: BLADDER STIMULATOR FDA Start: Goals Date Patient Goal Desired Activity /State Functional Status Date Assessment Result Facility 08-15-2023 Functional status Bathroom Privilege [facility] Work Phone: 06-10-2023 Functional status Chair [facility] Work Phone: 06-10-2023 Functional status Fair [facility] Work Phone: 05-17-2023 Functional status Ambulates [facility] Work Phone: Mental Status Date Assessment Result Facility 08-14-2023 Cognitive function Voice/Name [facility] Work Phone: 08-14-2023 Cognitive function Awake;Alert;A ppropriate;Fol lows Commands [facility] Work Phone: 06-10-2023 Cognitive function Voice/Name [facility] Work Phone: 06-03-2023 Cognitive function Appropriate;Cooperativ e [facility] Work Phone: 05-17-2023 Cognitive function Voice/Name [facility] Work Phone: Clinical Notes 06-17-2021 to 07-02-2025 Note Date & Type Note Facility 07-02-2025 Evaluation note Diagnosis Onset Date Resolution Coronary artery disease chronic S eptember 2024 8:52am Diabetes mellitus chronic Septemb er 2024 8:52am Dyslipidemia chronic July 022024 8:52am Hypertension chronic July 022024 8:52am Paroxysmal atrial fibrillation chronic July 02, 2025 8:52am [facility] Work Phone: 1(258) 528-687109-30-2025 Progress [facility] [address] [place], [place] [address] OFFICE VISIT Date of Service: 07/02/25 MR#: [id number] Acct: [id number] Name: LUIZA GALO Rep #: [id number] : 1940 Provider: Dr. 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 She has past medical history significant for coronary artery disease status post CABG in 2016, hypertension, paroxysmal atrial fibrillation, dyslipidemia and diabetes mellitus. She is herefor follow-up visit. Denies any shortness of breath either at rest or with exertion. No orthopnea orPND. Denies any ankle edema. According to her, she has occasional chest discomfort but is not very specific about it. Not sure about the frequency, precipitating or relieving factors or the quality of the discomfort. Perher, it is infrequent. Patient has been tolerating her apixaban well. Denies any abnormal bleeding. Intake Vital Signs 07/19/24 10:28 07/02/25 09:06 Height 5 ft 5 ft Weight: 194 lb BMI 37.8 BP 160/60 H Blood Pressure Location Lt brachial Position Sitting Respiration 18 Pulse 48 L Pulse Source Monitor Intake Visit Reasons: 3 M FU Chute Greaser Required: No Accompanied by: Daughter Is patient in pain?: No Allergies sitagliptin (From Januvia) Allergy (Unknown, Verified 07/02/25 09:04) unknown Anesthetics - Amide Type - Select A Allergy (Verified 07/02/25 09:04) NEEDS FOLLOW-UP Anesthetics - Tyra Type- Parabens Allergy (Verified 07/02/25 09:04) NEEDS FOLLOW-UP latex Allergy (Verified 07/02/25 09:04) Unknown promethazine (From Phenergan) Allergy (Verified 07/02/25 09:04) PT UNSURE OF REACTION sitagliptin phosphate (From Januvia) Allergy (Verified 07/02/25 09:04) Unknown insulin isophane (NPH) Adverse Reaction (Severe, Verified 07/02/25 09:04) heart burn insulin degludec (From Clix Softwareltophy 100/3.6) Adverse Reaction (Mild, Verified 07/02/25 09:04) Nausea liraglutide (From Xultophy 100/3.6) Adverse Reaction (Mild, Verified 07/02/25 09:04) Nausea atorvastatin (From Lipitor) Adverse Reaction (Unknown, Verified 07/02/25 09:04) Unknown codeine Adverse Reaction (Unknown, Verified 07/02/25 09:04) Unknown tizanidine Adverse Reaction (Unknown, Verified 07/02/25 09:04) Unknown Medications ?Medication ?Instructions ?Recorded ?Confirmed ?Type atorvastatin 40 mg tablet 40 mg PO QDAY cholesterol #3 0 tabs 03/02/18 07/02/25 Rx BP cuff #1 ea 01/20/22 04/02/24 Rx cholecalciferol (vitamin D3) 125 125 mcg PO DAILY kayla min 01/20/22 07/02/25 History mcg (5,000 unit) capsule acetaminophen 500 mg tablet 1,000 mg PO Q4H PRN pain 0 05/19/22 07/02/25 History (Tylenol Extra Strength) ropinirole 1 mg tablet 2 mg PO QHS pain 05/19/22 History trazodone 150 mg tablet 150 mg PO QHS sleep 10/24/23 07/02/25 History insulin degludec 100 unit/mL 25 unit subcut DAILY diab etes 04/01/24 07/02/25 History subcutaneous solution (Tresiba U-100 Insulin) metoprolol succinate 25 mg 12.5 mg PO DAILY blood pres sure 04/01/24 07/02/25 History tablet,extended release 24 hr aspirin 81 mg tablet,delayed 81 mg PO BREAKFAST #0 tab s 04/02/24 07/02/25 Rx release Held on 01/10/25. Instructions: Home Medication placed on hold at Doctor's office losartan 25 mg tablet 25 mg PO DAILY #30 TABLETS 0 04/12/24 07/02/25 Rx levothyroxine 50 mcg tablet 50 mcg PO DAILY 04/19/24 0 07/02/25 History escitalopram oxalate 10 mg tablet 10 mg PO DAILY 07/1707/02/25 History hydralazine 25 mg tablet 25 mg PO TID 07/17/24 History ropinirole 1 mg tablet 1 mg PO DAILY 07/17/2407/02 History apixaban 5 mg tablet (Eliquis) 2.5 mg (1/2 x 5 mg) PO BID blood 01/10/25 07/02/25 Rx thinner #180 tabs alprazolam 0.5 mg tablet 0.5 mg PO DIRECTED #60 ta bs 06/18/25 07/02/25 Rx alprazolam 0.5 mg tablet 0.5 mg PO BID anxiety #60 ta bs 06/18/25 07/02/25 Rx loperamide 2 mg capsule mg PO 07/02/25 07/02/25 Hist ory loratadine 10 mg tablet 10 mg PO QDAY 07/02/2507/02 History nitroglycerin 0.4 mg sublingual 0.4 mg sublingual Q5M PRN 07/02/25 07/02/25 History tablet potassium chloride 10 mEq 10 meq PO QDAY 07/02/2506/05 History tablet,extended release (Klor-Con) tramadol 50 mg tablet 50 mg PO Q12H PRN pain 07/02 History Ejection fraction %: 65 Have you fallen in the past year?: Yes (lost balance) PFSH Medical History History of Clostridium difficile infection Post-menopausal Wears glasses Insulin dependent diabetes mellitus Walker as ambulation aid Psoriatic arthritis Arthritis High cholesterol Back pain Gastric reflux Former smoker Shortness of breath on exertion History of echocardiogram History of stress test Hypertension Cardiology follow-up encounter Ascending cholangitis Immunosuppression due to drug therapy Former tobacco use Anxiety and depression History of left heart catheterization (LHC) (~01/20/21) Paroxysmal atrial fibrillation Essential hypertension Atherosclerosis of coronary artery of hughes heart without angina pectoris 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 Bradycardia Stroke Dysphagia Morbid obesity Osteoarthritis GERD (gastroesophageal reflux disease) Pulmonary embolism Hyperlipidemia MARIVEL (obstructive sleep apnea) Diabetes mellitus Surgical History History of ERCP Hx of CABG History of bilateral cataract [...] type: does not use caffeine: No ROS Const Const: Negative for fatigue or weakness Eyes Eyes: Negative for change in vision ENT ENT: Positive for dizziness and balance problems Cardio Chest Pain: Yes Frequency: monthly Character: tightness Location: left chest Duration: minutes Palpitations: No Edema: Bilateral Resp Respiratory: Positive for SOB with activity and SOB at rest; Negative for SOB orthopnea\\SOB lying down GI GI: Negative nausea or heartburn Musc Musc: Positive for balance problems Neuro Neuro: Positive for dizziness, lightheadedness and near syncope; Negative for syncope or weakness Endo Endo: Negative for fatigue Cardiology Exam Const Appearance: comfortable and no acute distress Nutritional Appearance: well nourished Neck Neck: no JVD Carotids: Negative bruit Chest Auscultation: Bilateral: Clear to Auscultation Cardio Rate: regular rate Rhythm: regular rhythm Heart sounds: S1 normal and S2 normal Neuro General: patient alert, patient awake and patient oriented x3 Extremities Lower Extremity Edema: Trace: Bilateral Supplemental Info Supplemental Information Diagnostics: Electrocardiogram Echocardiogram Stress Test Stress Test Nuclear Medicine Cardiac Catheterization Chest X-Ray Chest CTA Abdomen/Pelvis CT Pulmonary: Pulmonary Function Test Past Visits: Cardiology Visit Today Assessment and Plan Assessment and Plan (1) Coronary artery disease: Status: Chronic Plan: History of CABG. Complains of occasional chest discomfort. Nonspecific. CheckLexiscan stress Myoview. Check echocardiogram. (2) Paroxysmal atrial fibrillation: Status: Chronic Plan: On apixaban. (3) Hypertension: Status: Chronic Qualifiers: Hypertension type: primary hypertension Qualified Code(s): I10 - Essential (primary) hypertension Plan: Blood pressure above goal. Increase losartan to 50 mg once daily. In view of bradycardia, DC metoprolol. Start on amlodipine 5 mg once daily. DC hydralazine. Check electrolytes in 1 week. (4) Dyslipidemia: Status: Chronic Plan: Atorvastatin. Check lipid profile. 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 insulin use: with usp use Diabetes mellitus complication status: with hyperglycemia Coding Level of Care Code Off vis,est,level 4 Diagnoses Coronary artery disease I25.10 Paroxysmal atrial fibrillation I48.0 Primary hypertension I10 Hypertension type: primary hypertension Dyslipidemia E78.5 Type 2 diabetes mellitus with hyperglycemia, with long-term current use of insulin E11.65; Z79.4 Diabetes mellitus type: type 2 Diabetes mellitus intermediate manager insulin use: with intermediate manager use Diabetes mellitus complication status: with hyperglycemia Clinical Quality Measures Falls Risk Screening/Assistive Devices Have you fallen in the past year?: Yes (lost balance) Cardiac Ejection fraction %: 65 07/02/25 0941 > Date _ Odalys Walls MD Cosigner Signature: Date (if applicable) CC: Dr. Laverne Lea MD ~ [facility]02-18-2024 Discharge summary Author Lesley Lopez [facility] November 21, 2023 12:40am Note Date/Time November 20, 2023 8:38pm [facility] Medical Records Department [address] [place] [address] Emergency Department Summary 11/20/23 MR#: [id number] Acct: [id number] Name: LUIZA GALO Rep #:[id number] : 1940 83 From: Lesley Lopez MD [...] on hydrocodone for pain without significant improvement. [facility] Medical History Anxiety and depression Ascending cholangitis Atherosclerosis of coronary artery of hughes heart without angina pectoris Bradycardia Diabetes mellitus Dysphagia Essential hypertension Former tobacco use GERD (gastroesophageal reflux disease) History of left heart catheterization (LHC) (~01/20/21) Hyperlipidemia Immunosuppression due to drug therapy long-term (current) use of anticoagulants Morbid obesity MARIVEL [...] % (Auto) 53.4 Lymph % (Auto) 38.0 Ness % (Auto) 5.8 Eos % (Auto) 1.9 [...] your Primary Care Provider. Call [facility] ([phone]) or report to the closest Emergency Room. Call 911 if necessary. 11/21/23 0040 <Electronically signed by Lesley Lopez MD> Cosigner Signature (if applicable): CC: Dr. Rosalind Rubalcava MD ~ Signed [facility] Work Phone: 1(729) 782-880211-13-2023 Progress note Author Cirilo Fine [facility] August 15, 2023 12:13pm Note Date/Time August 15, 2023 8:29am [facility] Medical Records Department [address] [place] [address] Progress Note - Hospitalist 08/15/23824 MR#: [id number] Acct: [id number] Name: LUIZA GALO Rep #:[id number] : 1940 83 From: Cirilo Fine DO PCP: Dr. Rosalind Rubalcava MD Status:ADM BJ Location: [address] Reason for Visit Reason for Visit: Diagnoses [...] 88.1 H, Lymph % (Auto) 7.1 L, Ness % (Auto) 3.7, Eos % (Auto) 0.2, [...] Clarity Clear, Urine pH 6.0, Ur Specific [place] 1.020, Urine Protein 30 H, Urine Glucose [...] % (Auto) 69.3, Lymph % (Auto) 24.2, Ness % (Auto) 4.8, Eos % (Auto) 1.2, [...] 15:59 EST Reading Location ID and State: [facility] / [place] , Service support , Physical Exam Const [...] Cosigner Signature (if applicable): CC: ~ Signed [facility] Work Phone: 1(716) 141-180211-12-2023 History and physical note Author Judson Hernandez [facility] August 14, 2023 4:28pm Note Date/Time August 14, 2023 3:02pm [facility] Medical Records Department [address] [place] [address] H&P Exam - Hospitalist 08/14/23 1575 MR#: [id number] Acct: [id number] Name: LUIZA GALO Rep #:[id number] : 1940 83 From: Judson rucker MD PCP: Dr. Rosalind Rubalcava MD Status:ADM BJ Location: [facility] [id number] HPI - General General Date of Admission: [...] fluids in the ED, renal function stable. 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 Judson Hernandez MD; Dr. Rosalind Rubalcava MD~ Signed [facility] Work Phone: 1(188) 163-779711-12-2023 Discharge summary Author Enrrique Eric [facility] August 14, 2023 4:21pm Note Date/Time August 14, 2023 12:51pm [facility] Medical Records Department [address] [place] [address] Emergency Department Summary 08/14/23 MR#: [id number] Acct: [id number] Name: LUIZA GALO Rep #:[id number] : 1940 83 From: Enrrique Ny PCP: Dr. Rosalind Rubalcava MD Status:ADM BJ Location: [place] [address] HPI History of Present Illness Chief Complaint: [...] chronic pain. Patient has had prescriptions for [place] in the past and vitals between constipation and loose stools. Most recently she has had a couple laxatives. [facility] Medical History Anxiety and depression Atherosclerosis of coronary artery of hughes heart without angina pectoris Bradycardia Diabetes mellitus Dysphagia Essential hypertension Former tobacco use GERD (gastroesophageal reflux disease) History of left heart catheterization (LHC) (~01/20/21) Hyperlipidemia Immunosuppression due to drug therapy long-term (current) use of anticoagulants Morbid obesity MARIVEL [...] [History Last Taken Unknown] hydrocodone-acetaminophen 5-325mg 5mg-325mg (Brooklyn) 1 tab PO Q8H PRN Pain 1-10 [...] 88.1 H Lymph % (Auto) 7.1 L Ness % (Auto) 3.7 Eos % (Auto) 0.2 [...] Clarity Clear Urine pH 6.0 Ur Specific [place] 1.020 Urine Protein 30 H Urine Glucose [...] febrile illness Disposition Disposition: Acute Care Hospital [facility] What to do if you have Problems For any increased pain, shortness of breath, bleeding, nausea or vomiting, chestpain, or any unexpected problems, contact your Primary Care Provider. Call [facility] ([phone]) or report to the closest Emergency Room. Call 911 if necessary. 08/14/231620 <Electronically signed by Enrrique Eric DO> Cosigner Signature (if applicable): CC: Dr. Rosalind Rubalcava MD ~ Signed [facility] Work Phone: [phone]) 802-913611-08-2023 Note. MICRO - Microbiology PROCEDURE: Urine Culture [*1] SOURCE: Urine, Clean Catch BODY SITE: COLLECTED DATE/TIME: 2023 17:30 EST RECEIVED DATE/TIME: 2023 19:45 EST START DATE/TIME: 2023 19:46 EST FREE TEXT SOURCE: FINAL REPORTS Final Report [] Verified Date/Time/Personnel: 08/10/2023 14:36 EST >100,000 cfu/ml Multiple bacterial morphotypes present. Probable Contamination. Suggest recollection if clinically indicated. Performing Locations *1: This test was performed at: [facility], [address] [place] [address], [address] , Formerly [facility] ([place])06-10-2023 Hospital Discharge instructions Additional Instructions Discharge to [facility] 06/10/2023, [facility] PT/OT/[facility] Work Phone: [phone]) 650-756109-08-2023 Discharge summary Author Senthil Ortiz [facility] June 10, 2023 8:09am Note Date/Time June 07, 2023 8:55pm [facility] Medical Records Department [address] [place] [address] Discharge Summary 06/07/232050 MR#: [id number] Acct: [id number] Name: LUIZA GALO Rep #:[id number] : 1940 82 From: Senthil Ortiz MD PCP: Dr. 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 * Debility - PT/OT. * Pain - Tylenol 1000mg q6h prn pain (1-5), Brooklyn 5/325mg 1 tablet Q12H prn pain (6-10). * Bowel - Loperamide 4mg q2h prn. * Adult immunization - Administer pneumonia vaccine, covid19 vaccine, flu vaccine as appropriate. * DVT prophylaxis - on Eliquis. * Anxiety - Xanax 0.5mg 4x/day, stable chronic usp use, GDR not recommended. * Hypertension - Metoprolol succinate 25mg daily, Losartan 100mg daily, Amlodipine 5mg daily. * Atrial fibrillation - Metoprolol succinate 25mg daily, Eliquis 5mg bid. * Hyperlipidemia - Atorvastatin 40mg qhs. * Depression - Lexapro 10mg daily, Topamax 50mg bid, stable chronic usp use, GDR not recommended. * Edema - [...] Insomnia - Trazodone 300mg qhs, stable chronic intermediate manager use, GDR not recommended. * Vitamin [...] Q4H PRN pain 05/19/22 hydrocodone-acetaminophen 5-325mg 5mg-325mg ([place]) 1 tab PO Q12H PRN Pain 1-10 [...] rehabilitation, strengthening, prior to discharge home to [facility]. Discharge to [facility] 06/10/2023, [facility] PT/OT/ST. Physical Exam Const alert [...] and Uncontrolled pain Additional Instructions: Discharge to [facility] 06/10/2023, [facility] PT/OT/ST. Please Follow Up With: FriendDoe, DO When: As scheduled. Meaningful Use Info Meaningful Use Diagnoses (Choose all that apply): None applicable Discharge Plan Admission Admit Date/Time: 05/17/23 18:15 Primary Reason for Your Visit: Debility. Attending Provider: Senthil Ortiz Chi Primary Care Provider: Rosalind Rubalcava Instructions Additional Instructions / Restrictions: Discharge to [facility] 06/10/2023, [facility] PT/OT/ST. Discharge Orders/Prescriptions Prescriptions: New metoprolol succinate 50 mg Tablet Extended Release 24 Hr 50 mg PO DAILY 30 Days Qty: 30 0RF Continued alprazolam 0.5 mg tablet 0.5 mg PO 4X/DAY montelukast 10 mg tablet 10 mg PO DAILY hydrocodone-acetaminophen [Brooklyn] 5-325 mg tablet 1 tab PO Q12H [...] on 06/10/23 at 0809 Addendum Discharge to [facility] 06/10/2023, [facility] PT/OT/ST. 06/10/23 0809<Electronically signed by Senthil Ortiz MD> Cosigner Signature (if applicable): cc: Dr. Rosalind Rubalcava MD; Dr. Senthil Ortiz MD ~* Signed [facility] Work Phone: [phone]) 192-465409-08-2023 Discharge summary Author Senthil Ortiz [facility] June 10, 2023 8:09am Note Date/Time June 07, 2023 9:05pm [facility] Medical Records Department [address] [place] [address] Transfer to [facility] MR#: [id number] Acct: [id number] Name: LUIZA GALO Rep #:[id number] : 1940 82 From: Senthil Ortiz MD PCP: Dr. Rosalind Rubalcava MD Status:ADM IN Certification of patient admission REQUIRED AT TIME OF ADMISSION. I CERTIFY THAT POST-HOSPITAL ECF SERVICES ARE REQUIRED TO BE GIVEN ON AN IN-PATIENT BASIS BECAUSE OF THE ABOVE NAMED PATIENT'S NEED FOR FPC CARE ON A CONTINUING BASIS FOR THE [...] Code(s): I25.10 - Atherosclerotic heart disease of hughes coronary artery without angina pectoris (12) Hyperlipidemia: [...] rehabilitation, strengthening, prior to discharge home to [facility]. * Debility - PT/OT. * Pain - Tylenol 1000mg q6h prn pain (1-5), Brooklyn 5/325mg 1 tablet Q12H prn pain (6-10). * Bowel - Loperamide 4mg q2h prn. * Adult immunization - Administer pneumonia vaccine, covid19 vaccine, flu vaccine as appropriate. * DVT prophylaxis - on Eliquis. * Anxiety - Xanax 0.5mg 4x/day, stable chronic intermediate manager use, GDR not recommended. * Hypertension - Metoprolol succinate 25mg daily, Losartan 100mg daily, Amlod ipine 5mg daily. * Atrial fibrillation - Metoprolol succinate 25mg daily, Eliquis 5mg bid. * Hyperlipidemia - Atorvastatin 40mg qhs. * Depression - Lexapro 10mg daily, Topamax 50mg bid, stable chronic intermediate manager use, GDR not recommended. * Edema [...] Insomnia - Trazodone 300mg qhs, stable chronic intermediate manager use, GDR not recommended. * Vitamin [...] Than 30 Days Type of Care Needed: Penitentiary/Assisted Living Rehab Potential: Fair Prognosis: Fair Additional [...] Instructions Additional Instructions / Restrictions: Discharge to [facility] 06/10/2023, [facility] Care PT/OT/ST. 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 Rosalind Rubalcava MD ~ ADDENDUM by Dr. Senthil Ortiz MD on 06/10/23 at 0809 Addendum Discharge to [facility] 06/10/2023, [facility] PT/OT/ST. 06/10/23 0809 <Electronically signed by Senthil Ortiz MD> cc: Dr. Rosalind Rubalcava MD ~* Signed [facility] Work Phone: [phone] 501-191408-30-2023 History and physical note Author Senthil Ortiz [facility] June 01, 2023 5:41pm Note Date/Time May 17, 2023 7: 14pm [facility] Medical Records Department [address] [place] [address] History & Physical Exam 05/17/231913 MR#: [id number] Acct: [id number] Name: LUIZA GALO Rep #:[id number] : 1940 82 From: Senthil Ortiz MD PCP: Dr. Rosalind Rubalcava MD Status:ADM IN [facility] - General General Date of Admission: 05/17/23 Date of Service: 05/18/23 Chief Complaint: Here for rehabilitation. HPI Narrative 05/12/2023 LUIZA GALO, is a 82 Female [facility]. 05/12/2023 EKG sinus rhythm [...] rehabilitation, strengthening, prior to discharge home to [facility]. 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 Morbid obesity MARIVEL [...] [History Last Taken Unknown] hydrocodone-acetaminophen 5-325mg 5mg-325mg ([place]) 1 tab PO Q12H PRN Pain 1-10 [...] Diabetes mellitus: QUALIFIERS: Qualified Code(s): Z79.4 - long-term (current) use of insulin; 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 * Debility - PT/OT. * Pain - Tylenol 1000mg q6h prn pain (1-5), Brooklyn 5/325mg 1 tablet Q12H prn pain (6-10). * Bowel - Loperamide 4mg q2h prn. * Adult immunization - Administer pneumonia vaccine, covid19 vaccine, flu vac cine as appropriate. * DVT prophylaxis - on Eliquis. * Anxiety - Xanax 0.5mg 4x/day, stable chronic intermediate manager use, GDR not recommended. * Hypertension - Metoprolol succinate 25mg daily, Losartan 100mg daily, Amlodipine 5mg daily. * Atrial fibrillation - Metoprolol succinate 25mg daily, Eliquis 5mg bid. * Hyperlipidemia - Atorvastatin 40mg qhs. * Depression - Lexapro 10mg daily, Topamax 50mg bid, stable chronic usp use, GDR not recommended. * Edema - [...] Insomnia - Trazodone 300mg qhs, stable chronic intermediate manager use, GDR not recomme nded. * Vitamin D deficiency - D3 125mcg daily. 05/18/23 0749 <Electronically signed by Senthil Ortiz MD> Cosigner Signature (if applicable): CC: Dr. Roslaind Rubalcava MD; Dr. Senthil Ortiz MD~ Signed ADDENDUM by Dr. Senthil Ortiz MD on 06/01/23 at 1741 Addendum Appetite loss - Rx Mirtazapine 7.5mg qhs. 06/01/23 174<Electronically signed by Senthil Ortiz MD> Cosigner Signature (if applicable): cc: Dr. Rosalnid Rubalcava MD; Dr. Senthil Ortiz MD ~* Signed [facility] Work Phone: [phone]) [phone] Progress note Author [facility] May 18, 2023 5:22pm Note Date/Time May 18, 2023 3: 14pm [facility] Medical Records Department [address] [place] [address] Progress Note - Pharmacy 05/18/23 1505 MR#: [id number] Acct: [id number] Name: LUIZA GALO Rep #:[id number] : 1940 82 From: Rosie Kitchen PCP: Dr. Rosalind Rubalcava MD Status:ADM IN Location: [facility] TCU21-1 Documented by User: Rosie Kitchen 05/18/23 15:29 [...] mls @ 15 mls/hr 05/17/23 18:56 IV .[id number] PRN Additional IVPB Infusion Sodium Chloride 250 mls @ 15 mls/hr 05/17/23 18:56 IV .[id number] PRN Saline Flush Insulin Glargine 40 unit [...] (hip pain 05/12; requested Tylenol instead of Brooklyn), and no doses of PRN Brooklyn. Continue to monitor pain and for PRN [...] Continue to monitor for peripheral neuropathy and PHOTOGRAPHIC LABORATORY SUPERVISOR effects (Black Box Warning), tendon pain (black [...] GDR. Continue to monitor for s/s of PHOTOGRAPHIC LABORATORY SUPERVISOR effects (Beer?s Criteria) and respiratory depression, especially if the resident uses PRN doses of Brooklyn (Black Box Warning), falls/fractures (BEERs medication) and [...] by Senthil Ortiz MD> CC: ~ Signed [facility] Work Phone: [phone]) 302-157308-15-2023 Discharge summary Author Alee Yao [facility] May 17, 2023 4:23pm Note Date/Time May 17, 2023 2: 44pm [facility] Medical Records Department [address] [place] [address] Discharge Summary 05/17/23 1443 MR#: [id number] Acct: [id number] Name: LUIZA GALO Rep #:[id number] : 1940 82 From: Alee Yao DO PCP: Dr. Rosalind Rubalcava MD Status:ADM IN [facility] Prov[facility] Date of Admission: 05/13/23 Primary Care Physician: Dr. Rosalind Rubalcava MD Consultations 05/13/23 01:59 Consult: Gastroenterology Routine Consulting Provider: [facility] Reason for Consult: Elevated Bili/LFT, N/V, [...] Immunodeficiency due to drugs; Z79.899 - Other usp (current) drug therapy (7) Hypotension: Status: Acute [...] Q4H PRN pain 05/19/22 hydrocodone-acetaminophen 5-325mg 5mg-325mg ([place]) 1 tab PO Q12H PRN Pain 1-10 [...] who presented to the emergency department at [facility] late in the evening on 05/12/2023 with [...] mg tablet 10 mg PO DAILY hydrocodone-acetaminophen [Brook[place]] 5-325 mg tablet 1 tab PO Q12H [...] Tremfya 100 mg/mL auto-injector 100 mg subcut .[id number] Referrals / Follow Up: Doe Orr DO [Med Staff - Active Staff] - See Referral Note (1-2 mos) Rosalind Rubalcava MD [Primary Care Provider] - Within 1 Month Disposition Disposition (needs filled in before D/C Order can be placed): Shelter Facility Charges/Coding Visit Charges Inpatient E&M: 26041 SNF Disch >30 Min 05/17/23 1623 <Electronically signed by Alee Yao DO> Cosigner Signature (if applicable): CC: Dr. Alee Yao DO; Dr. Rosalind Rubalcava MD; Doe Orr DO~ Signed [facility] Work Phone: [phone]) [phone] Discharge summary Author Alee Yao [facility] May 17, 2023 2:43pm Note Date/Time May 17, 2023 2: 43pm [facility] Medical Records Department [address] [place] [address] Transfer to [facility] MR#: [id number] Acct: [id number] Name: LUIZA GALO Rep #:[id number] : 1940 82 From: Alee Yao DO PCP: Dr. Rosalind Rubalcava MD Status:ADM IN Certification of patient admission REQUIRED AT TIME OF ADMISSION. I CERTIFY THAT POST-HOSPITAL ECF SERVICES ARE REQUIRED TO BE GIVEN ON AN IN-PATIENT BASIS BECAUSE OF THE ABOVE NAMED PATIENT'S NEED FOR FPC CARE ON A CONTINUING BASIS FOR THE CONDITION(S) FOR WHICH HE/SHE WAS RECEIVING IN-PATIENT HOSPITAL SERVICES PRIOR TO HIS/HER TRANSFER TO THE [facility]. 05/17/23 1443<Electronically signed by Alee Yao DO> [...] Immunodeficiency due to drugs; Z79.899 - Other usp (current) drug therapy (7) Hypotension: Status: Acute [...] Additional Orders/Day of Discharge Day of Discharge: 08/15/23 Follow Up Care Please follow up with your Primary Care Physician in: 4 weeks Please Follow Up With: Friend,DO Doe When: 6-8 weeks Discharge Plan Admission Admit Date/Time: 05/13/23 01:24 Attending Provider: Alee Yao Primary Care Provider: Rosalind Rubalcava Consulting Providers: Octavia Gruber Discharge Orders/Prescriptions Prescriptions: No Action aspirin 81 mg tablet,delayed release (DR/EC) 81 mg PO QDAY alprazolam 0.5 mg tablet 0.5 mg PO 4X/DAY montelukast 10 mg tablet 10 mg PO DAILY hydrocodone-acetaminophen [[place]] 5-325 mg tablet 1 tab PO Q12H [...] Tremfya 100 mg/mL auto-injector 100 mg subcut .[id number] metoprolol succinate 50 mg tablet extended release 24 hr 25 mg PO DAILY loperamide [Anti-Diarrheal (loperamide)] 2 mg capsule 4 mg PO Q2H PRN (Reason: diarrhea) Rx Instructions: after first loose stool, 1 tablet after each subsequent loose stool but no more than 4 tablets in 24 hours atorvastatin 40 mg tablet 40 mg PO QDAY Qty: 30 6RF Referrals / Follow Up: Friend,DO Doe [Med Staff - Active Staff] - See Referral Note (1-2 mos) Rosalind Rubalcava MD [Primary Care Provider] - Within 1 Month (1) Fever Qualifiers: Fever type: unspecified Qualified Code(s): R50.9 - Fever, unspecified 05/17/23 1443 <Electronically signed by Alee Yao DO> Cosigner Signature (if applicable): CC: Dr. Octavia Gruber MD; Dr. Rosalind Rubalcava MD ~ [facility] Work Phone: 1(134) 795-762308-14-2023 Progress note Author Alee Yao [facility] May 16, 2023 3:31pm Note Date/Time May 16, 2023 3: 20pm [facility] Medical Records Department [address] [place] [address] Progress Note - Hospitalist 05/16/23 1512 MR#: [id number] Acct: [id number] Name: LUIZA GALO Rep #:[id number] : 1940 82 From: Alee Yao DO PCP: Dr. Rosalind Rubalcava MD Status:ADM IN [facility] Reason for Visit Reason for Visit: Fever/nausea/vomiting/confusion [...] % (Auto) 51.4, Lymph % (Auto) 39.1, Ness % (Auto) 5.8, Eos % (Auto) 2.6, [...] from insurance Charges/Coding Visit Charges Inpatient E&M: 97230 Subs Hosp L2 05/16/23 1531 <Electronically signed by Alee Yao DO> Cosigner Signature (if applicable): CC: ~ Signed [facility] Work Phone: [phone]) 958-849508-13-2023 Progress note Author Alee Yao [facility] May 15, 2023 1:25pm Note Date/Time May 15, 2023 1: 25pm [facility] Medical Records Department [address] [place] [address] Progress Note - Hospitalist 05/15/23 1316 MR#: [id number] Acct: [id number] Name: LUIZA GALO Rep #:[id number] : 1940 82 From: Alee Yao DO PCP: Dr. Rosalind Rubalcava MD Status:ADM IN Location: [place] [address] Reason for Visit Reason for Visit: Fever/nausea/vomiting/confusion [...] from insurance Charges/Coding Visit Charges Inpatient E&M: 06992 Subs Hosp L2 05/15/23 9559 <Electronically signed by Alee Yao DO> Cosigner Signature (if applicable): CC: ~ Signed [facility] Work Phone: [phone]) [phone] Progress note Author Alee Yao [facility] May 14, 2023 12:25pm Note Date/Time May 14, 2023 12 :25pm [facility] Medical Records Department [address] [place] [address] Progress Note - Hospitalist 05/14/23 1215 MR#: [id number] Acct: [id number] Name: LUIZA GALO Rep #:[id number] : 1940 82 From: Alee Yao DO PCP: Dr. Rosalind Rubalcava MD Status:ADM IN Location: [place] HM291-5 Reason for Visit Reason for Visit: Fever/nausea/vomiting/confusion [...] (Auto) 70.2 H, Lymph % (Auto) 21.9, Ness % (Auto) 5.7, Eos % (Auto) 1.3, [...] no intubation Charges/Coding Visit Charges Inpatient E&M: 96475 Subs Hosp L2 05/14/23 1225 <Electronically signed by Alee Yao DO> Cosigner Signature (if applicable): CC: ~ Signed [facility] Work Phone: 1(140) 182-522208-12-2023 Progress note Author Doe Friend [facility] May 14, 2023 9:35am Note Date/Time May 14, 2023 9: 30am [facility] Medical Records Department [address] [place] [address] [place] [address] Progress Note - GI 05/14/23 0928 MR#: [id number] Acct: [id number] Name: LUIZA GALO Rep #:[id number] : 1940 82 From: Doe Friend DO PCP: Dr. Rosalind Rubalcava MD Status:ADM IN Location: [place] OC719-1 Subjective Subjective Patient underwent ERCP yesterday for [...] (Auto) 70.2 H, Lymph % (Auto) 21.9, Ness % (Auto) 5.7, Eos % (Auto) 1.3, [...] Plan 82 y/o who presents to the [facility] ED on 05/12/23 with history of [...] Treatment for bile leak would be 10 Norwegian stent across the ampulla. She has isalready in place. We will order a HIDA scan to see if she has any radiologic evidence of bile leak. Recommend to continue antibiotic therapy for total of 7 days. Charges/Coding Visit Charges Inpatient E&M: 59025 Subs Hosp L3 05/14/23 0935 <Electronically signed by Doe Orr DO> Cosigner Signature (if applicable): CC: ~ Signed [facility] Work Phone: [phone]) 430-406708-11-2023 Consult note Author Doe Orr [facility] May 13, 2023 4:32pm Note Date/Time May 13, 2023 4: 26pm [facility] Medical Records Department [address] [place] [address] Consultation - GI 05/13/23 0724 MR#: [id number] Acct: [id number] Name: LUIZA GALO Rep #:[id number] : 1940 82 From: Doe Orr DO PCP: Dr. Rosalind Rubalcava MD Status:ADM IN [facility] HPI Consult Data Date of Consult: 05/12/23 [...] and hypertension superimposed on diabetes mellitusand MARIVEL. [facility] Medical History Anxiety and depression Atherosclerosis of coronary artery of hughes heart without angina pectoris Bradycardia Diabetes mellitus Dysphagia Essential hypertension Former tobacco use GERD (gastroesophageal reflux disease) History of left heart catheterization (LHC) (~01/20/21) Hyperlipidemia long-term (current) use of anticoagulants Morbid obesity MARIVEL [...] [History Last Taken Unknown] hydrocodone-acetaminophen 5-325mg 5mg-325mg ([place]) 1 tab PO Q12H PRN Pain 1-10 Or Fever 05/19/22 [History Last Taken Unknown] insulin degludec 200 unit/mL (3 mL) subcutaneous pen 40 unit subcut QHS tgavlshc56/17/22 [History Last Taken Unknown] ropinirole 1 mg [...] mg/mL subcutaneous auto-injector (Tremfya) 100 mg subcut .[id number] 05/12/23 [History Last Taken Unknown] tizanidine 4 [...] 82.1 H, Lymph % (Auto) 10.1 L, Ness % (Auto) 6.4, Eos % (Auto) 0.3, [...] Clarity Clear, Urine pH 7.0, Ur Specific [place] 1.010, Urine Protein 15 H, Urine Glucose [...] 77.1 H, Lymph % (Auto) 15.5 L, Ness % (Auto) 6.5, Eos % (Auto) 0.2, [...] 23:27 EDT Reading Location ID and State: [address] [place] [address] Tel , Service support , Gallbladder Ultrasound [...] an 82 y/o who presents to the [facility] ED on 05/12/23 with history of [...] antibiotic therapy. Charges/Coding Visit Charges Inpatient E&M: 68595 Init Hosp L3 05/13/23 1632 <Electronically signed by Doe Friend DO> Cosigner Signature (if applicable): CC: Dr. Octavia Gruber MD; Dr. Rosalind Rubalcava MD~ Signed [facility] Work Phone: [phone] Procedure [facility] 05-13-2023 Procedure [facility]08-11-2023 Consult note Author Alee Yao [facility] May 13, 2023 10:51am Note Date/Time May 13, 2023 10 :05am [facility] Medical Records Department [address] [place] [address] Pharmacokinetic/Renal -Consult 05/13/23 1004 MR#: [id number] Acct: [id number] Name: LUIZA GALO Rep #:[id number] : 1940 82 From: Dayn Hairston PCP: Dr. Rosalind Rubalcava MD Status:ADM IN Y Location: FL3 AH284-2 Consult Antibiotic Management Pharmacy has been consulted to manage selected antiobiotic: Vancomycin Type of Intervention Type of Consult: New start Suspected Infection Suspected Infection: Other (EMPIRIC/FEVER) Prior Doses of Antibiotics Prior Doses of Antibiotics Received/Current Regimen: Vancomycin 1250 mg IV x 1 given 8/11/23 @ 0948 Pt is also on zosyn [...] Date Alee Yao DO CC: ~ Signed [facility] Work Phone: [phone]) 188-499108-11-2023 Progress note Author Alee Yao [facility] May 13, 2023 7:49am Note Date/Time May 13, 2023 7: 21am [facility] Medical Records Department [address] [place] [address] Progress Note - Hospitalist 05/13/23 0709 MR#: [id number] Acct: [id number] Name: LUIZA GALO Rep #:[id number] : 1940 82 From: Alee Yao DO PCP: Dr. Rosalind Rubalcava MD Status:ADM IN Location: [address] Reason for Visit Reason for Visit: Fever/nausea vomiting/confusion Subjective Subjective Mrs. Galo is an 82-year-old white female with a complicated past medical history who presented to the emergency department at [facility] late last evening on 05/12/2023 with fevers [...] 82.1 H, Lymph % (Auto) 10.1 L, Ness % (Auto) 6.4, Eos % (Auto) 0.3, [...] Clarity Clear, Urine pH 7.0, Ur Specific [place] 1.010, Urine Protein 15 H, Urine Glucose [...] 77.1 H, Lymph % (Auto) 15.5 L, Ness % (Auto) 6.5, Eos % (Auto) 0.2, [...] STATUS -DNR CCA with no intubation 05/13/23 0720 <Electronically signed by Alee Yao DO> Cosigner Signature (if applicable): CC: ~ Signed [facility] Work Phone: [phone]) 183-253308-11-2023 History and physical note Author Octavia Gruber [facility] May 13, 2023 1:33am Note Date/Time May 13, 2023 12 :51am [facility] Medical Records Department [address] [place] [address] H&P Exam - Hospitalist 05/13/23 0049 MR#: [id number] Acct: [id number] Name: LUIZA GALO Rep #:[id number] : 1940 82 From: Octavia Gruber MD PCP: Dr. Rsoalind Rubalcava MD Status:ADM IN Location: [facility] [id number] HPI - General General Date of Admission: [...] Hx CVA, Obesity who presents to the [facility] ED on 05/12/23 with history of [...] and morphine 4 mg IV x 1. 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 Charges/Coding Visit Charges Inpatient E&M: 36801 Init Hosp L3 Procedures Hospitalists Procedures: 74984 Advncd Care Plan 30 Min 05/13/23 0133 <Electronically signed by Octavia Gruber MD> Cosigner Signature (if applicable): CC: Dr. Octavia Gruber MD; Dr. Rosalind Rubalcava MD~ Signed [facility] Work Phone: [phone]) 942-725708-11-2023 Discharge summary Author Papo Morillo [facility] May 13, 2023 12:55am Note Date/Time May 12, 2023 10 :09pm [facility] Medical Records Department [address] [place] [address] Emergency Department Summary 05/12/23 MR#: [id number] Acct: [id number] Name: LUIZA GALO Rep #:[id number] : 1940 82 From: Papo Morillo MD [...] symptoms: Yes (Infection) Recent Illness/Hospitalization: No PFSH [facility] Medical History (Updated 05/13/23 @ 00:[address] 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 Negative Alanis sign over [place] sign. No septal deviation hematoma. 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 Call [facility] ([phone]) or report to the closest Emergency Room. Call 911 if necessary. 05/13/23 0055 <Electronically signed by Papo Morillo MD> Cosigner Signature (if applicable): CC: Dr. Rosalind Rubalcava MD ~ Signed [facility] Work Phone: [phone]) [phone] Nurse Note* Maggi Ellington RN - 04/06/2022 [...] mild discomfort is NA [facility] NoteHNO ID: [id number] Author: Tejal Rivera MD Service: ? Author [...] Post Procedure Plan Instruction Sheet [facility] History of Present illness Narrative* Tejal [...] Sheet Given: Post Cystoscopy [facility] Miscellaneous Notes* Telephone Encounter - Amanda [...] UTI. Amanda Bassett Ma [facility] Nurse Note* Maggi Ellington RN - [...] mild discomfort is NA documented in [facility]-2021 NoteHNO ID: [id number] Author: Tejal Rivera MD Service: ? Author [...] Post Procedure Plan Instruction Sheet Given: [facility] Procedure note* Tejal Rivera MD - [...] Sheet Given: Post Cystoscopy documented in [facility]-17-2021 Miscellaneous Notes* Telephone Encounter - Maggi Vega RN - 08/19/2021 3:46 PM EST Patient has an upcoming appointment and wondered if she needed to stop her coumadin- she doesn't, patient informed. Maggi Vega RN documented in this encounterAv[facility]09-15-2021 NoteHNO ID: [id number] Author: Tejal Rivera MD Service: ? Author [...] - HTN (hypertension) - (more content not included)...[facility]09-[facility] History of Present illness Narrative* Tejal [...] apnea) Psoriasis RLS (restless legs syndrome) Stroke ([facility]) R frontal supraventricular FAUSTINO (stress urinary incontinence, [...] encounter diagnosis) (R35.1) Nocturia [facility] Author Dany Hairston [facility] August 15, 2023 1:26pm Note Date/Time August 15, 2023 1:26pm [facility] Medical Records Department [address] [place] [address] Counseling Note - Pharmacy 08/15/23 1325 MR#: [id number] Acct: [id number] Name: RICKYLUIZA L Rep #:[id number] : 1940 83 From: Dany Hairston PCP: Dr. Rosalind Rubalcava MD Status:ADM BJ Y Location: FL3 [id number] Pharmacy [facility] Service has performed discharge medication reconciliation [...] counselled on new medication ondansetron by pharmacy technician infusion Dean. Medications at Discharge Home Medications atorvastatin [...] Q4H PRN pain 05/19/22 hydrocodone-acetaminophen 5-325mg 5mg-325mg ([place]) 1 tab PO Q12H PRN Pain 1-10 [...] Signature (if applicable): Date CC: ~ Signed [facility] Work Phone: Discharge summary Author Cirilo Fine [facility] August 15, 2023 12:17pm Note Date/Time August 15, 2023 12:14pm [facility] Medical Records Department [address] [place] [address] [place] [address] Discharge Summary 08/15/23 1213 MR#: [id number] Acct: [id number] Name: LUIZA GALO Rep #:[id number] : 1940 83 From: Cirilo Fine DO PCP: Dr. Rosalind Rubalcava MD Status:ADM BJ Location: [facility] QH545-0 Providers Date of Admission: 08/14/23 Primary Care [...] Q4H PRN pain 05/19/22 hydrocodone-acetaminophen 5-325mg 5mg-325mg ([place]) 1 tab PO Q12H PRN Pain 1-10 [...] 88.1 H, Lymph % (Auto) 7.1 L, Ness % (Auto) 3.7, Eos % (Auto) 0.2, [...] Clarity Clear, Urine pH 6.0, Ur Specific [place] 1.020, Urine Protein 30 H, Urine Glucose [...] % (Auto) 69.3, Lymph % (Auto) 24.2, Ness % (Auto) 4.8, Eos % (Auto) 1.2, [...] 15:59 EST Reading Location ID and State: [facility] / [place] , Service support , D/C Instructions Discharge [...] You may also benefit from seeing a tipping machine operator as outpatient as well. Discharge Orders/Prescriptions Prescriptions: New ondansetron 8 mg tablet,disintegrating 8 mg PO Q8H PRN (Reason: nausea and vomiting) Qty: 20 0RF Continued alprazolam 0.5 mg tablet 0.5 mg PO 4X/DAY montelukast 10 mg tablet 10 mg PO DAILY hydrocodone-acetaminophen [[place]] 5-325 mg tablet 1 tab PO Q12H [...] NH/Intermed Care Charges/Coding Visit Charges Inpatient E&M: 63135 Disch Hosp >30min 08/15/23 1217 <Electronically signed by Cirilo Fine DO> Cosigner Signature (if applicable): CC: Dr. Cirilo Fine DO; Dr. Rosalind Rubalcava MD~ Signed [facility] Work Phone: Evaluation + Plan note Future Appointments Appointment Date:09/24/2021 11:15:00 AM Scheduled Provider:ROSALIND RUBALCAVA MD Location:[facility] Appointment Type:PC OV Future [...] Panel 08/07/21 * Complete Metabolic Panel 11/08/21 [facility] Evaluation + Plan note Future Appointments Appointment Date:11/20/2021 10:45:00 AM Scheduled Provider:ROSALIND RUBALCAVA MD Location:[facility] Appointment Type:PC OV Future Scheduled Tests Laboratory* COVID-19 Only (AO) 03/17/21 * Calcium Level Ionized 08/07/21 * Magnesium Level 08/07/21 * Thyroid Stimulating Hormone 08/07/21 * Free T4 08/07/21 * Urine Culture 09/24/21 * A1C Hemoglobin 08/07/21 * Complete Blood Count 08/07/21 * Free T3 08/07/21 * Complete Metabolic Panel 08/07/21 [facility] Evaluation + Plan note Future Appointments Appointment Date:03/05/2022 02:30:00 PM Scheduled Provider:ROSALIND RUBALCAVA MD Location:[facility] Appointment Type:PC Wellness Primetime Enhanced Appointment Date:04/07/2022 11:00:00 AM Scheduled Provider:ROSALIND RUBALCAVA MD Location:[facility] Appointment Type:PC OV Controlled Medication Future Scheduled Tests Laboratory* Calcium Level Ionized 08/07/21 * Magnesium Level 08/07/21 * Thyroid Stimulating Hormone 08/07/21 * Free T4 08/07/21 * Urine Culture 09/24/21 * A1C Hemoglobin 08/07/21 * Complete Blood Count 08/07/21 * Free T3 08/07/21 * Complete Metabolic Panel 08/07/21 * COVID-19 Only (AO) 03/17/21 [facility] Evaluation + Plan note Future Appointments Appointment Date:04/07/2022 11:00:00 AM Scheduled Provider:ROSALIND RUBALCAVA MD Location:[facility] Appointment Type:PC OV Controlled Medication Diagnostic Tests Pending * Urine Culture 03/24/22 Future Scheduled Tests Laboratory* Calcium Level Ionized 08/07/21 * Magnesium Level 08/07/21 * Thyroid Stimulating Hormone 08/07/21 * Free T4 08/07/21 * Urine Culture 09/24/21 * A1C Hemoglobin 08/07/21 * Complete Blood Count 08/07/21 * Free T3 08/07/21 * Complete Metabolic Panel 08/07/21 [facility] Evaluation + Plan note Future Appointments Appointment Date:05/21/2022 11:00:00 AM Scheduled Provider:ROSALIND RUBALCAVA MD Location:[facility] Appointment Type:PC OV Appointment Date:07/06/2022 11:00:00 AM Scheduled Provider:ROSALIND RUBALCAVA MD Location:[facility] Appointment Type:PC OV Controlled Medication Diagnostic Tests Pending * Vitamin D Level 05/11/22 Future Scheduled Tests Laboratory* Calcium Level Ionized 08/07/21 * Magnesium Level 08/07/21 * Thyroid Stimulating Hormone 08/07/21 * Free T4 08/07/21 * Urine Culture 09/24/21 * A1C Hemoglobin 08/07/21 * Complete Blood Count 08/07/21 * Free T3 08/07/21 * Complete Metabolic Panel 08/07/21 [facility] Evaluation + Plan note Future Appointments Appointment Date:01/07/2023 11:30:00 AM Scheduled Provider:ROSALIND RUBALCAVA MD Location:[facility] Appointment Type:PC OV Future Scheduled Tests Laboratory* Thyroid Stimulating Hormone 11/10/22 * Free T4 11/10/22 * A1C Hemoglobin 05/10/23 * Lipid Profile 05/10/23 * Complete Metabolic Panel 05/10/23 [facility] Evaluation + Plan note Future Appointments Appointment Date:03/11/2023 11:00:00 AM Scheduled Provider:ROSALIND RUBALCAVA MD Location:[facility] Appointment Type:PC OV Controlled Medication Appointment Date:05/13/2023 11:00:00 AM Scheduled Provider:ROSALIND RUBALCAVA MD Location:[facility] Appointment Type:PC OV Future Scheduled Tests Laboratory* Thyroid Stimulating Hormone 11/10/22 * Free T4 11/10/22 * A1C Hemoglobin 05/10/23 * Lipid Profile 05/10/23 * Complete Metabolic Panel 05/10/23 [facility] Evaluation + Plan note Future Appointments Appointment Date:11/15/2023 11:00:00 AM Scheduled Provider:ROSALIND RUBALCAVA MD Location:[facility] Appointment Type:PC OV Follow Up Future Scheduled Tests Laboratory* A1C Hemoglobin 11/09/23 * Complete Blood Count 08/09/23 * Lipid Profile 11/09/23 * Complete Metabolic Panel 11/09/23 Radiology* XR Spine Lumbosacral 2 or 3 Views 08/09/23 * XR Hip 3-4 Views Bilateral 08/09/23 [facility] Evaluation + Plan note Future Appointments [...] * XR Hip 3-4 Views Bilateral 08/09/23 [facility] Evaluation note* Diagnosis Urge incontinence- Primary Nocturia [facility]* Diagnosis Urge incontinence- Primary [facility]* Diagnosis Urinary tract infection without hematuria, site unspecified- [facility] Urge incontinence- Primary [facility] Diagnosis Onset Date Resolution Status Atherosclerosis of coronary artery of hughes heart without angina pectoris chronic Essential hypertension chron ic Hyperlipidemia chronic Paroxysmal atrial fibrillation chronic Acute encephalopathy acute Elevated serum creatinine ac telida Fever acute Hypotension acute 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 Jaundice acute Transaminitis acute Diabetes mellitus chronic Essential hypertension chron ic 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, chronic Hyperlipidemia 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 [facility] Work Phone: Evaluation note* Diagnosis Onset Date Resolution Status Atherosclerosis of coronary artery of hughes heart without angina pectoris chronic Paroxysmal atrial [...] chronic Fever resolved Jaundice resolved Transaminitis resolved [facility] Work Phone: Evaluation note* Diagnosis Onset Date Resolution Status Atherosclerosis of coronary artery of hughes heart without angina pectoris chronic Paroxysmal atrial [...] resolved Acute febrile illness acute Gastroenteritis acute [facility] Work Phone: Evaluation note* Diagnosis Onset Date Resolution Status Acute febrile illness resolv ed Gastroenteritis resolved SOB (shortness of breath) ac telida Atherosclerosis of coronary artery of hughes heart without angina pectoris chronic Paroxysmal atrial fibrillation chronic [facility] Work Phone: Evaluation note* Diagnosis Onset Date Resolution Status Acute febrile illness resolv ed Gastroenteritis resolved SOB (shortness of breath) ac telida Atherosclerosis of coronary artery of hughes heart without angina pectoris chronic Paroxysmal atrial fibrillation chronic Ascending cholangitis acute [facility] Work Phone: Evaluation note* Diagnosis Onset Date Resolution Status SOB (shortness of breath) ac telida Atherosclerosis of coronary artery of hughes heart without angina pectoris chronic Paroxysmal atrial fibrillation chronic Ascending cholangitis acute [facility] Work Phone: Evaluation noteNo assessment information available [facility] Work Phone: Evaluation note* Diagnosis Onset Date Resolution Status Admit Date Coronary artery disease chronic S eptember 2024 8:52am Diabetes mellitus chronic Septemb er 2024 8:52am Dyslipidemia chronic July 022024 8:52am Hypertension chronic July 022024 8:52am Paroxysmal atrial fibrillation chronic July 02, 2025 8:52am [facility] Work Phone: Hospital course Narrative No data available for this section [facility] Hospital Discharge instructions No data available for this section [facility] Progress note No data available for this section [facility] Progress note Author Odalys Walls [facility] Note Date/Time July 02, 2025 9:41am [facility] [address] [place] [address] OFFICE VISIT Date of Service: 07/02/25 MR#: [id number] Acct: [id number] Name: LUIZA GALO Rep #: [id number] : 1940 Provider: Dr. Tristian Walls MD Age/Sex: 84/F Location: [facility] Status: Signed HPI HPI History of Present Illness Details: This pleasant lady is a senior care resident. She has past medical history significant for coronary artery disease status post CABG in 2017, hypertension, paroxysmal atrial fibrillation, dyslipidemia and diabetes mellitus. She is herefor follow-up visit. Denies any shortness of breath either at rest or with exertion. No orthopnea orPND. Denies any ankle edema. According to her, she has occasional chest discomfort but is not very specific about it. Not sure about the frequency, precipitating or relieving factors or the quality of the discomfort. Per her, it is infrequent. Patient has been tolerating her apixaban well. Denies any abnormal bleeding. Intake Vital Signs 07/19/24 10:28 07/02/25 09:06 Height 5 ft 5 ft Weight: 194 lb BMI 37.8 BP 160/60 H Blood Pressure Location Lt brachial Position Sitting Respiration 18 Pulse 48 L Pulse Source Monitor Intake Visit Reasons: 3 M FU Chute Greaser Required: No Accompanied by: Daughter Is patient in pain?: No Allergies sitagliptin (From Januvia) Allergy (Unknown, Verified 07/02/25 09:04) unknown Anesthetics - Amide Type - Select A Allergy (Verified 07/02/25 09:04) NEEDS FOLLOW-UP Anesthetics - Tyra Type- Parabens Allergy (Verified 07/02/25 09:04) NEEDS FOLLOW-UP latex Allergy (Verified 07/02/25 09:04) Unknown promethazine (From Phenergan) Allergy (Verified 07/02/25 09:04) PT UNSURE OF REACTION sitagliptin phosphate (From Januvia) Allergy (Verified 07/02/25 09:04) Unknown insulin isophane (NPH) Adverse Reaction (Severe, Verified 07/02/25 09:04) heart burn insulin degludec (From Xultophy 100/3.6) Adverse Reaction (Mild, Verified 07/02/25 09:04) Nausea liraglutide (From Xultophy 100/3.6) Adverse Reaction (Mild, Verified 07/02/25 09:04) Nausea atorvastatin (From Lipitor) Adverse Reaction (Unknown, Verified 07/02/25 09:04) Unknown codeine Adverse Reaction (Unknown, Verified 07/02/25 09:04) Unknown tizanidine Adverse Reaction (Unknown, Verified 07/02/25 09:04) Unknown Medications ?Medication ?Instructions ?Recorded ?Confirmed ?Type atorvastatin 40 mg tablet 40 mg PO QDAY cholesterol #3 0 tabs 03/02/18 07/02/25 Rx BP cuff #1 ea 01/20/22 04/02/24 Rx cholecalciferol (vitamin D3) 125 125 mcg PO DAILY kayla min 01/20/22 07/02/25 History mcg (5,000 unit) capsule acetaminophen 500 mg tablet 1,000 mg PO Q4H PRN pain 0 05/19/22 07/02/25 History (Tylenol Extra Strength) ropinirole 1 mg tablet 2 mg PO QHS pain 05/19/22 History trazodone 150 mg tablet 150 mg PO QHS sleep 10/24/23 07/02/25 History insulin degludec 100 unit/mL 25 unit subcut DAILY diab etes 04/01/24 07/02/25 History subcutaneous solution (Tresiba U-100 Insulin) metoprolol succinate 25 mg 12.5 mg PO DAILY blood pres sure 04/01/24 07/02/25 History tablet,extended release 24 hr aspirin 81 mg tablet,delayed 81 mg PO BREAKFAST #0 tab s 04/02/24 07/02/25 Rx release Held on 01/10/25. Instructions: Home Medication placed on hold at Doctor's office losartan 25 mg tablet 25 mg PO DAILY #30 TABLETS 0 04/12/24 07/02/25 Rx levothyroxine 50 mcg tablet 50 mcg PO DAILY 04/19/24 0 07/02/25 History escitalopram oxalate 10 mg tablet 10 mg PO DAILY 07/1707/02/25 History hydralazine 25 mg tablet 25 mg PO TID 07/17/24 History ropinirole 1 mg tablet 1 mg PO DAILY 07/17/2407/02 History apixaban 5 mg tablet (Eliquis) 2.5 mg (1/2 x 5 mg) PO BID blood 01/10/25 07/02/25 Rx thinner #180 tabs alprazolam 0.5 mg tablet 0.5 mg PO DIRECTED #60 ta bs 06/18/25 07/02/25 Rx alprazolam 0.5 mg tablet 0.5 mg PO BID anxiety #60 ta bs 06/18/25 07/02/25 Rx loperamide 2 mg capsule mg PO 07/02/25 07/02/25 Hist ory loratadine 10 mg tablet 10 mg PO QDAY 07/02/2507/02 History nitroglycerin 0.4 mg sublingual 0.4 mg sublingual Q5M PRN 07/02/25 07/02/25 History tablet potassium chloride 10 mEq 10 meq PO QDAY 07/02/2506/05 History tablet,extended release (Klor-Con) tramadol 50 mg tablet 50 mg PO Q12H PRN pain 07/02 History Ejection fraction %: 65 Have you fallen in the past year?: Yes (lost balance) PFS Medical History History of Clostridium difficile infection Post-menopausal Wears glasses Insulin dependent diabetes mellitus Walker as ambulation aid Psoriatic arthritis Arthritis High cholesterol Back pain Gastric reflux Former smoker Shortness of breath on exertion History of echocardiogram History of stress test Hypertension Cardiology follow-up encounter Ascending cholangitis Immunosuppression due to drug therapy Former tobacco use Anxiety and depression History of left heart catheterization (LHC) (~01/20/21) Paroxysmal atrial fibrillation Essential hypertension Atherosclerosis of coronary artery of hughes heart without angina pectoris long-term (current) use of anticoagulants Bradycardia Stroke Dysphagia Morbid obesity Osteoarthritis GERD (gastroesophageal reflux disease) Pulmonary embolism Hyperlipidemia MARIVEL (obstructive sleep apnea) Diabetes mellitus Surgical History History of ERCP Hx of CABG History of bilateral cataract [...] type: does not use caffeine: No ROS Const Const: Negative for fatigue or weakness Eyes Eyes: Negative for change in vision ENT ENT: Positive for dizziness and balance problems Cardio Chest Pain: Yes Frequency: monthly Character: tightness Location: left chest Duration: minutes Palpitations: No Edema: Bilateral Resp Respiratory: Positive for SOB with activity and SOB at rest; Negative for SOB orthopnea\\SOB lying down GI GI: Negative nausea or heartburn Musc Musc: Positive for balance problems Neuro Neuro: Positive for dizziness, lightheadedness and near syncope; Negative for syncope or weakness Endo Endo: Negative for fatigue Cardiology Exam Const Appearance: comfortable and no acute distress Nutritional Appearance: well nourished Neck Neck: no JVD Carotids: Negative bruit Chest Auscultation: Bilateral: Clear to Auscultation Cardio Rate: regular rate Rhythm: regular rhythm Heart sounds: S1 normal and S2 normal Neuro General: patient alert, patient awake and patient oriented x3 Extremities Lower Extremity Edema: Trace: Bilateral Supplemental Info Supplemental Information Diagnostics: Electrocardiogram Echocardiogram Stress Test Stress Test Nuclear Medicine Cardiac Catheterization Chest X-Ray Chest CTA Abdomen/Pelvis CT Pulmonary: Pulmonary Function Test Past Visits: Cardiology Visit Today Assessment and Plan Assessment and Plan (1) Coronary artery disease: Status: Chronic Plan: History of CABG. Complains of occasional chest discomfort. Nonspecific. CheckLexiscan stress Myoview. Check echocardiogram. (2) Paroxysmal atrial fibrillation: Status: Chronic Plan: On apixaban. (3) Hypertension: Status: Chronic Qualifiers: Hypertension type: primary hypertension Qualified Code(s): I10 - Essential (primary) hypertension Plan: Blood pressure above goal. Increase losartan to 50 mg once daily. In view of bradycardia, DC metoprolol. Start on amlodipine 5 mg once daily. DC hydralazine. Check electrolytes in 1 week. (4) Dyslipidemia: Status: Chronic Plan: Atorvastatin. Check lipid profile. (5) Diabetes mellitus: Status: Chronic Qualifiers: Diabetes mellitus type: type 2 Diabetes mellitus intermediate manager insulin use:with intermediate manager use Diabetes mellitus complication status: with hyperglycemia Qualified Code(s): E11.65 - Type 2 diabetes mellitus with hyperglycemia; Z79.4 -long-term (current) use of insulin Plan: As per PCP. 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 insulin use: with usp use Diabetes mellitus complication status: with hyperglycemia Coding Level of Care Code Off vis,est,level 4 Diagnoses Coronary artery disease I25.10 Paroxysmal atrial fibrillation I48.0 Primary hypertension I10 Hypertension type: primary hypertension Dyslipidemia E78.5 Type 2 diabetes mellitus with hyperglycemia, with long-term current use of insulin E11.65; Z79.4 Diabetes mellitus type: type 2 Diabetes mellitus usp insulin use: with usp use Diabetes mellitus complication status: with hyperglycemia Clinical Quality Measures Falls Risk Screening/Assistive Devices Have you fallen in the past year?: Yes (lost balance) Cardiac Ejection fraction %: 65 07/02/25 0941 <Electronically signed by Odalys Walls MD> Date _ Odalys Walls MD Cosigner Signature: Date (if applicable) CC: Dr. Laverne Lea MD ~ [facility] Work Phone: Reason for referral (narrative)No reason for referral information availableWMercy Hospital Work Phone: Summary Purpose Family History No Family History Records Found Relationship Condition Age at Onset Recorded Date/T alison father Coronary artery disease Unknown mother Coronary artery disease Unknown brother Coronary artery disease Unknown Advance Directives No Advanced Directives Records Found Advance Directive Response Recorded Date/ Time Name of Medical Power of Assistant To The Vice President eugene kitchen May 13, 2023 1:54am Advance Directives No January 19 021 7:12am Living Will Yes May 13 1:54am Power of Assistant To The Vice President Yes May 13 023 1:54am Advance Directive Response Recorded Date/ Time Name of Medical Power of Assistant To The Vice President eugene kitchen May 13, 2023 1:54am Name of Medical Power of Assistant To The Vice President Kong Kitchen May 19, 2023 11:23am Advance Directives No January 19, 021 7:12am Living Will Yes May 19 11:23am Power of Assistant To The Vice President Yes May 19 023 11:23am Advance Directive Response Recorded Date/ Time Name of Medical Power of Assistant To The Vice President eugene kitchen May 13, 2023 12:54am Name of Medical Power of Assistant To The Vice President Kong Kitchen May 19, 2023 10:23am Name of Medical Power of Assistant To The Vice President mona (son) August 14, 2023 12:14pm Advance Directives No January 19 021 6:12am Living Will Yes August 14 023 12:14pm Power of Assistant To The Vice President Yes August 14, 2023 12:14pm Advance Directive Response Recorded Date/ Time Name of Medical Power of Assistant To The Vice President eugene kitchen May 13, 2023 12:54am Name of Medical Power of Assistant To The Vice President Kong Kitchen May 19, 2023 10:23am Name of Medical Power of Assistant To The Vice President mona (son) August 14, 2023 4:11pm Advance Directives No January 19, 021 6:12am Living Will Yes August 14, 023 4:11pm Power of Assistant To The Vice President Yes August 14, 2023 4:11pm Advance Directive Response Recorded Date/ Time Name of Medical Power of Assistant To The Vice President mona (son) August 14, 2023 4:11pm Advance Directives No January 19 021 6:12am Living Will Yes August 14, 023 4:11pm Power of Assistant To The Vice President Yes August 14, 2023 4:11pm Advance Directive Response Recorded Date/ Time Name of Medical Power of Assistant To The Vice President mona (son) August 14, 2023 4:11pm Name of Medical Power of Assistant To The Vice President daughter November 20, 2023 8:28pm Advance Directives No January 19, 021 6:12am Living Will Yes November 20 024 8:28pm Power of Assistant To The Vice President Yes November 20, 2023 8:28pm Advance Directive Response Recorded Date/ Time Name of Medical Power of Assistant To The Vice President daughter November 20, 2023 9:28pm Advance Directives No January 19 021 7:12am Living Will Yes November 20 9:28pm Power of Assistant To The Vice President Yes November 20, 2023 9:28pm Advance Directive Response Recorded Date/ Time Advance Directives No January 19 021 7:12am Medications Administered Section Inactive Administered [...] Visit Atherosclerosis of c oronary artery of hughes heart without angina pectoris Essential hypertension Hyperlipidemia Paroxysmal atrial fibrillation Acute encephalopathy Elevated serum creatinine Fever Hypotension Immunosuppression due to drug therapy Jaundice Transaminitis Diabetes mellitus Essential hypertension H/O coronary artery bypass surgery Hyperlipidemia long-term (current) use of anticoagulants Chief Complaint 1 Y FU ENCEPHALOPATHY ACUTE, FEVER, JAUNDICE FUO, TRANSAMINITIS/HYPERBILIRUBINEMIA, ENCEPHALOPA FUO, TRANSAMINITIS/HYPERBILIRUBINEMIA, ENCEPHALOPA FUO, TRANSAMINITIS/HYPERBILIRUBINEMIA, ENCEPHALOPA FUO, TRANSAMINITIS/HYPERBILIRUBINEMIA, ENCEPHALOPA FUO, TRANSAMINITIS/HYPERBILIRUBINEMIA, ENCEPHALOPA FUO, TRANSAMINITIS/HYPERBILIRUBINEMIA, ENCEPHALOPA FUO, TRANSAMINITIS/HYPERBILIRUBINEMIA, ENCEPHALOPA FUO/TRANSAMINITIS/HYPERBILIRUBINEMIA Reason for Visit Atherosclerosis of c oronary artery of hughes heart without angina pectoris Paroxysmal atrial fibrillation [...] Visit Atherosclerosis of c oronary artery of hughes heart without angina pectoris Paroxysmal atrial fibrillation [...] Visit Atherosclerosis of c oronary artery of hughes heart without angina pectoris Paroxysmal atrial fibrillation [...] of breath) Atherosclerosis of coronary artery of hughes heart without angina pectoris Paroxysmal atrial fibrillation Chief Complaint GASTROENTERITIS, ACU TE FEBRILE ILLNESS GASTROENTERITIS, ACUTE FEBRILE ILLNESS 6 M FU INT LABS E ORDERS TCU FU LOWER Reason for Visit Acute febrile illnes s Gastroenteritis SOB (shortness of breath) Atherosclerosis of coronary artery of hughes heart without angina pectoris Paroxysmal atrial fibrillation Ascending cholangitis Chief Complaint 6 M FU INT LABS E ORDERS TCU FU LOWER INT LABS Reason for Visit SOB (shortness of br eath) Atherosclerosis of coronary artery of hughes heart without angina pectoris Paroxysmal atrial fibrillation Ascending cholangitis Chief Complaint 6 M FU INT LABS E ORDERS TCU FU LOWER INT LABS CHF, SOB, 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 - MONITOR LEVELS Amb Documentation Reason for Visit SOB (shortness of br eath) Atherosclerosis of coronary artery of hughes heart without angina pectoris Paroxysmal atrial fibrillation Ascending cholangitis Chief Complaint Admit Date LABWORK September 10, 2024 5 :00am [facility] LAB WORK September 13 5:00am NEW CONCERN September 21, 2024 4:22pm LABWORK October 01, 2024 5:00am LABWORK October 15, 2024 6 :54am LABWORK November 12, 2024 5:00am LABWORK December 10, 2024 5:0 0am Chief Complaint Admit Date [facility] LAB WORK September 13 5:00am NEW CONCERN [...] 3:1 6pm LABWORK February 04, 2025 5:00am [facility] LAB WORK February 11, 2025 5:0 0am [facility] LAB WORK March 11, 2025 4:0 0am [...] 3:1 6pm LABWORK February 04, 2025 5:00am [facility] LAB WORK February 11, 2025 5:0 0am NEW CONCERN February 26, 2025 12:12 pm [facility] LAB WORK March 04, 2025 1:1 7pm LABWORK March 06, 2025 5:00a m [facility] LAB WORK March 11, 2025 4:0 0am [...] 3:1 6pm LABWORK February 04, 2025 5:00am [facility] LAB WORK February 11, 2025 5:0 0am NEW CONCERN February 26, 2025 12:12 pm [facility] LAB WORK March 04, 2025 1:1 7pm New Concern March 04, 2025 4:26p m New Problem March 05, 2025 3:18p m LABWORK March 06, 2025 5:00a m [facility] LAB WORK March 11, 2025 4:0 0am [...] 3:1 6pm LABWORK February 04, 2025 5:00am [facility] LAB WORK February 11, 2025 5:0 0am NEW CONCERN February 26, 2025 12:12 pm [facility] LAB WORK March 04, 2025 1:1 7pm New Concern March 04, 2025 4:26p m LABWORK March 06, 2025 5:00a m [facility] LAB WORK March 11, 2025 4:0 0am LABWORK March 18, 2025 5:00 am Chief Complaint Admit Date [facility] LAB WORK February 11, 2025 5:0 0am NEW CONCERN February 26, 2025 12:12 pm [facility] LAB WORK March 04, 2025 1:1 7pm New Concern March 04, 2025 4:26p m New Problem March 05, 2025 3:18p m LABWORK March 06, 2025 5:00a m [facility] LAB WORK March 11, 2025 4:0 0am LABWORK March 18, 2025 5:00 am LABWORK April 15, 2025 5:00 am [facility] LAB WORK April 29, 2025 5: 00am Annual H&P May 28, 2025 12 :19pm Chief Complaint Admit Date New Problem March 05, 2025 3:18p m LABWORK March 06, 2025 5:00a m [facility] LAB WORK March 11, 2025 4:0 0am LABWORK March 18, 2025 5:00 am LABWORK April 15, 2025 5:00 am [facility] LAB WORK April 29, 2025 5: 00am Annual H&P May 28, 2025 12 :19pm 3 M FU July 02, 2025 8:52am Reason for Visit Admit Date Coronary artery disease July 02, 2025 8:52am Diabetes mellitus July 02, 2025 8:52am Dyslipidemia July 02, 2025 8:52am Hypertension July 02, 2025 8:52am Paroxysmal atrial fibrillation July 02, 2025 8:52am Chief Complaint Admit Date [facility] LAB WORK March 11, 2025 4:0 0am LABWORK March 18, 2025 5:00 am LABWORK April 15, 2025 5:00 am [facility] LAB WORK April 29, 2025 5: 00am Annual H&P May 28, 2025 12 :19pm 3 M FU July 02, 2025 8:52am Additional Source Comments INFORMATION SOURCE (unrecogn ized section and content) DATE CREATED AUTHOR 08/15/2018 [facility] DATE CREATED AUTHOR AUTHOR'S ORGANIZ ATION 04/07/2022 [facility] DATE CREATED AUTHOR AUTHOR'S ORGANIZ ATION 06/02/2024 [facility] DATE CREATED AUTHOR AUTHOR'S ORGANIZ ATION 08/14/2025 [facility] Source Comments (unrecognize d section and content) In the event this informatio n is protected by the Federal Confidentiality of Alcohol and Drug Abuse Patient Records regulations: The Federal rules restrict any use of the information to criminally investigate or prosecute any alcohol or drug abuse patient.[facility] the event this information is protected by the Federal Confidentiality of Alcohol and Drug Abuse Patient Records regulations: The Federal rules restrict any use of the information to criminally investigate or prosecute any alcohol or drug abuse patient.[facility] the event this information is protected by the Federal Confidentiality of Alcohol and Drug Abuse Patient Records regulations: The Federal rules restrict any use of the information to criminally investigate or prosecute any alcohol or drug abuse patient.[facility] the event this information is protected by the Federal Confidentiality of Alcohol and Drug Abuse Patient Records regulations: The Federal rules restrict any use of the information to criminally investigate or prosecute any alcohol or drug abuse patient.[facility] the event this information is protected by the Federal Confidentiality of Alcohol and Drug Abuse Patient Records regulations: The Federal rules restrict any use of the information to criminally investigate or prosecute any alcohol or drug abuse patient.[facility] Reason for Visit (unrecogniz ed section and content) Reason Comments New Patient Reason Comments Appointment Patient Question Reason Comments Cystoscopy-1 Urge Urinary Incontinence Specialty Diagnoses / Procedures Referred By Contac t Referred To Contact Urology / UROLOGY Diagnoses botox, 200 units Procedures CYSTOSCOPY BOTOX Tejal Rivera MD [address] [place] [address] Tejal Rivera MD [address] [place] [address] Referral ID Status Reason Start Date Expiration Date Visits Re quested Visits Authorized [id number] Closed 09/02/2021 12/01/2021 1 1 Reason Comments Orders Reason Comments Urge Urinary Incontinence Cystoscopy-1 Specialty Diagnoses / Procedures Referred By Valerie rosado Referred To Contact Urology / UROLOGY Diagnoses Urge incontinence cysto botox Procedures BOTULINUM TOXIN A PER 1 UNIT CYSTOSCOPY [id number] units Tejal Rivera MD [address] [place] [address] Tejal Rivera MD [address] [place] [address] Referral ID Status Reason Start Date Expiration Date V isits Requested Visits Authorized [id number] Authorized 04/01/2022 10/02/2022 99 99 Care Teams (unrecognized sec tion and content) Towerman Relationship Specialty Start Date End Date Rosalind Rubalcava MD [address] [place] [address] PCP - [facility] 07/14/12 Towerman Relationship Specialty Start Date End Date Rosalind Rubalcava MD [address] [place] [address] PCP - [facility] 07/14/12 Team Status: Active Member Role Status Dates Dr. Rosalind Rubalcava MD Family Provider Active Dr. Rosalind Rubalcava MD Primary Care Provider Active Team Status: Inactive Member Role Status Dates Dr. Rosalind Rubalcava MD Primary Care Provider, [facility] Provider Active Katalina Torres GOLD WHEEL BLOCK[employer] POLISHER, GOLD WHE[employer]ISHER-C Attending Provider Active Team Status: Active Member [...] MD Primary Care Provider Active Katalina Torres GOLD WHEEL [employer] POLISHER, GOLD WHEEL BLOCKER [employer] POLISHER-C Attending Provider, Kevin pablo Active Team Status: Inactive Member Role Status [...] Active Member Role Status Dates Dr. Rosalind uRbalcava MD Primary Care Provider Active Katalina Torres GOLD WHEEL BLOCKER AND POLISHER, GOLD WHEEL BLOCKER AND POLISHER-C Attending Provider Active Team Status: Active Member [...] 2024 End: September 21, 2024 Jing Jones GOLD WHEEL BLOCKER AND POLISHER, GOLD WHEEL BLOCKER AND POLISHER-C Attending Provider Active Start: September 21, 2024 [...] 2025 End: January 28, 2025 Jing Jones GOLD WHEEL BLOCKER AND POLISHER, GOLD WHEEL BLOCKER AND POLISHER-C Attending Provider Active Start: January 28, 2025 [...] 2025 End: January 10, 2025 Jing Jones GOLD WHEEL BLOCKER AND POLISHER, GOLD WHEEL BLOCKER AND [employer]ISHER-C Attending Provider Active Start: January 10, 2025 End: January 10, 2025 Team Status: Inactive Member Role Status Dates Dr. Rosalind Rubalcava MD Primary Care Provider Active Start: January 09, 2025 End: January 09, 2025 Jing Jones GOLD WHEEL BLOCKER AND POLISHER, GOLD WHEEL BLOCKER AND [employer]ISHER-C Attending Provider Active Start: January 09, 2025 End: January 09, 2025 Team Status: Inactive Member Role Status Dates Dr. Rosalind Rubalcava MD Primary Care Provider Active Start: January 08, 2025 End: January 08, 2025 Jing Jones GOLD WHEEL BLOCKER AND POLISHER, GOLD WHEEL BLOCKER AND POLISHER-C Attending Provider Active Start: January 08, 2025 [...] 2025 End: January 08, 2025 Jing Jones GOLD WHEEL BLOCKER AND POLISHER, GOLD WHEEL BLOCKER AND [employer]ISHER-C Attending Provider Active Start: January 08, 2025 End: January 08, 2025 Team Status: Inactive Member Role/Relationship Status Dates Dr. Rosalind Rubalcava MD Primary Care Provider Active Start: January 09, 2025 End: January 09, 2025 Jing Jones GOLD WHEEL BLOCKER AND POLISHER, GOLD WHEEL BLOCKER AND POLISHER-C Attending Provider Active Start: January 09, 2025 [...] 2025 End: January 10, 2025 Jing Jones GOLD WHEEL BLOCKER AND POLISHER, GOLD WHEEL BLOCKER AND POLISHER-C Attending Provider Active Start: January 10, 2025 [...] 2025 End: January 28, 2025 Jing Jones GOLD WHEEL BLOCKER AND POLISHER, GOLD WHEEL BLOCKER AND POLISHER-C Attending Provider Active Start: January 28, 2025 [...] Provider Active Start: March 04, 2025 Jing VICTORIA, GOLD WHEEL [employer]ER AND [employer]ISHER-C Attending Provider Active Start: March 04, 2025 Team Status: Inactive Member Role/Relationship Status Dates Dr. Rosalind Rubalcava MD Primary Care Provider Active Start: March 04, 2025 End: March 04, 2025 Jing Jones GOLD WHEEL BLOCKER AND POLISHER, GOLD WHEEL BLOCKER AND POLISHER-C Attending Provider Active Start: March 04, 2025 End: March 04, 2025 Team Status: Inactive Member Role/Relationship Status Dates Dr. Rosalind Rubalcava MD Primary Care Provider Active Start: March 05, 2025 End: March 05, 2025 Jing Jones GOLD WHEEL BLOCKER AND POLISHER, GOLD WHEEL BLOCKER AND POLISHER-C Attending Provider Active Start: March 05, 2025 [...] Active Start: April 15, 2025 Team Status: Inactive Member Role/Relationship Status [...] Active Start: March 04, 2025 Jing VICTORIA GOLD WHEEL [employer]ER AND [employer]ISHER-C Attending Provider Active Start: March 04, 2025 Team Status: Inactive Member Role/Relationship Status Dates Dr. Rosalind Rubalcava MD Primary Care Provider Active Start: March 04, 2025 End: March 04, 2025 Jing Jones NP, GOLD WHEEL [employer] AND [employer]ISHER-C Attending Provider Active Start: March 04, 2025 End: March 04, 2025 Team Status: Inactive Member Role/Relationship Status Dates Dr. Rosalind Rubalcava MD Primary Care Provider Active Start: March 05, 2025 End: March 05, 2025 Jing Jones NP, GOLD WHEEL [employer]-C Attending Provider Active Start: March 05, 2025 End: March 05, 2025 Team Status: Active Member Role/Relationship Status Dates Dr. Rosalind Rubalcava MD Primary Care Provider Active Start: March 06, 2025 Laverne VICTORIA MD Attending Provider Active Start: March 06, 2025 Team Status: Active Member Role/Relationship Status Dates Dr. Rosalind Ruablcava MD Primary Care Provider Active Start: March [...] MD Primary Care Provider Active Start: April 29, 2025 Laverne VICTORIA MD Attending Provider Active Start: April 29, 2025 Team Status: Inactive Member Role/Relationship Status Dates Dr. Rosalind Rubalcava MD Primary Care Provider Active Start: May 28, 2025 End: May 28, 2025 Dr. Laverne Lea MD Attending Provider Active Start: May 28, 2025 End: May 28, 2025 Team Status: Active Member Role/Relationship Status Dates Dr. Rosalind Rubalcava MD Primary care physician Active Team Status: Inactive Member Role/Relationship Status Dates Dr. Rosalind Rubalcava MD Primary care physician Active Start: March 05, 2025 End: March 05, 2025 Jing Jones GOLD WHEEL BLOCKER AND POLISHER, GOLD WHEEL [employer]ER [employer]ER-C Attending physician Active Start: March 05, 2025 End: March 05, 2025 Team Status: Active Member Role/Relationship Status Dates Dr. Rosalind Rubalcava MD Primary care physician Active Start: March 06, 2025 Laverne VICTORIA MD Attending physician Active Start: March 06, 2025 Team Status: Active Member Role/Relationship Status Dates Dr. Rosalind Rubalcava MD Primary care physician Active Start: March 11, 2025 Laverne VICTORIA MD Attending physician Active Start: March 11, 2025 Laverne VICTORIA MD Referring Provider Active Start: March 11, 2025 Team Status: Active Member Role/Relationship Status Dates Dr. Rosalind Rubalcava MD Primary care physician Active Start: March 18, 2025 Laverne VICTORIA MD Attending physician Active Start: March 18, 2025 Team Status: Inactive Member Role/Relationship Status Dates Dr. Rosalind Rubalcava MD Primary care physician Active Start: April 02, 2025 Dr. Mamta Miranda MD Attending physician Active Start: April 02, 2025 Team Status: Active Member Role/Relationship Status Dates Dr. Rosalind Rubalcava MD Primary care physician Active Start: April 15, 2025 Laverne VICTORIA MD Attending physician Active Start: April 15, 2025 Team Status: Active Member Role/Relationship Status Dates Dr. Rosalind Rubalcava MD Primary care physician Active Start: April 29, 2025 Laverne VICTORIA MD Attending physician Active Start: April 29, 2025 Team Status: Inactive Member Role/Relationship Status Dates Dr. Rosalind Rubalcava MD Primary care physician Active Start: May 28, 2025 End: May 28, 2025 Dr. Laverne Lea MD Attending physician Active Start: May 28, 2025 End: May 28, 2025 Team Status: Inactive Member Role/Relationship Status Dates Dr. Rosalind Rubalcava MD Primary care physician Active Start: July 02, 2025 End: July 02, 2025 Dr. Rosalind Rubalcava MD Referring Provider Active Start: July 02, 2025 End: July 02, 2025 Dr. Odalys Walls MD Attending physician Active Start: July 02, 2025 End: July 02, 2025 Team Status: Active Member Role/Relationship Status Dates Dr. Rosalind Rubalcava MD Primary care physician Active Start: March 11, 2025 Laverne VICTORIA MD Attending physician Active Start: March 11, 2025 Laverne VICTORIA MD Referring Provider Active Start: March 11, 2025 Team Status: Inactive Member Role/Relationship Status Dates Dr. Rosalind Rubalcava MD Primary care physician Active Start: March 18, 2025 End: March 18, 2025 Laverne VICTORIA MD Attending physician Active Start: March 18, 2025 End: March 18, 2025 Team Status: Inactive Member Role/Relationship Status Dates Dr. Rosalind Rubalcava MD Primary care physician Active Start: April 02, 2025 Dr. Mamta Miranda MD Attending physician Active Start: April 02, 2025 Team Status: Active Member Role/Relationship Status Dates Dr. Rosalind Rubalcava MD Primary care physician Active Start: April 15, 2025 Laverne VICTORIA MD Attending physician Active Start: April 15, 2025 Team Status: Active Member Role/Relationship Status Dates Dr. Rosalind Rubalcava MD Primary care physician Active Start: April 29, 2025 Laverne VICTORIA MD Attending physician Active Start: April 29, 2025 Team Status: Inactive Member Role/Relationship Status Dates Dr. Rosalind Rubalcava MD Primary care physician Active Start: May 28, 2025 End: May 28, 2025 Dr. Laverne Lea MD Attending physician Active Start: May 28, 2025 End: May 28, 2025 Team Status: Inactive Member Role/Relationship Status Dates Dr. Rosalind Rubalcava MD Primary care physician Active Start: July 02, 2025 End: July 02, 2025 Dr. Rosalind Rubalcava MD Referring Provider Active Start: July 02, 2025 End: July 02, 2025 Dr. Odalys Walls MD Attending physician Active Start: July 02, 2025 End: July 02, 2025 Care Team (unrecognized sect ion and content) Personnel Name: ROSALIND RUBALCAVA MD Address: Address: [address] [place] [address] Name: Keiry Gutierrez Clerk Flor PT Care Team Personnel Name: Keiry Gutierrez Clercarl Ray PT Position: P3 Scheduling - Medical Tech Advanced Member Role: Other Name: ROSALIND RUBALCAVA MD Position: P4 Physician - Primary Care Med Service: Active Provider Member Role: Primary Care Physician Address: Address: [address] [place] [address] Care Team Related Persons Name: KONG KITCHEN [...] BE BASED ON THE PRIMARY CLINICAL RECORDS. [facility] [employer] [facility]. provides no warranty or guarantee of the accuracy or completeness of information in this document.
[2025-08-30 07:25] LABS: Hematocrit 33.2 % (37-47); Hemoglobin 11.3 g/dL (12.0-15.0); Immature Granulocytes Count 0.010 X10^3/uL (0.0-0.0); Mean Corp Hgb Conc 34.0 g/dL (32-36); Mean Corpuscular Volume 91.5 fL (81-99); Mean Platelet Vol. 9.3 fl (6.2-12.0); NRBC Flagged by Analyzer 0 % (0-5); Platelet Count 261 K/mm3 (150-450); RBC Distribution Width CV 12.2 % (11.6-14.6); RBC Distribution Width SD 41.0 fl (35.1-43.9); Red Blood Count 3.63 M/mm3 (4.2-5.4); White Blood Count 7.4 K/mm3 (4.4-11.0)
[2025-08-30 07:50] LABS: AST(SGOT) 22 U/L (<=31); Alanine Aminotransfer ALT/SGPT 18 U/L (<=34); Albumin, Serum 3.3 g/dL (3.4-4.8); Alkaline Phosphatase 108 U/L (35-104); Anion Gap 11 (5-15); BUN 17 mg/dL (4-19); BUN/Creat Ratio 15.8 RATIO (10-20); Calcium,Total 8.8 mg/dL (7.6-11.0); Carbon Dioxide 22.5 mmol/L (21.0-32.0); Chloride 104 mmol/L (98-108); Globulin 2.7 g/dL (2.2-4.2); Glucose 231 mg/dL (70-99); Potassium 4.2 mmol/L (3.3-5.1)
== END ==
LOC: OLS.WHLTSB 05:00
PROVIDERS: PCP Nurse Practitioner Adult Health; Visit Provider Internal Medicine
DX: E11.9 Type 2 diabetes mellitus without complications (principal); D64.9 Anemia, unspecified; E87.6 Hypokalemia; E16.4 Increased secretion of gastrin
CPT/HCPCS: 36415; 80053; 83036; 84443; 85025